=== PATIENT | male | born 1955 | race Two or more races ===

== ENCOUNTER → 2020-06-22 08:51 | Outpatient (BNVA) | payer MEDICARE, OTHER, SELFPAY | PROVIDERS: PCP Internal Medicine; Referring Provider Internal Medicine; Visit Provider Surgery Vascular Surgery | DX: I65.22 Occlusion and stenosis of left carotid artery (principal) | CPT/HCPCS: 99203 ==

== ENCOUNTER 2020-11-07 07:29 | Outpatient (REF) | payer MEDICARE, OTHER, SELFPAY | END 2020-11-07 07:30 | disposition home or self-care (01) | LOC: HO.HOSX 07:29 | PROVIDERS: Visit Provider Orthopaedic Surgery | DX: M17.0 Bilateral primary osteoarthritis of knee (principal); J45.909 Unspecified asthma, uncomplicated; E11.9 Type 2 diabetes mellitus without complications; I10 Essential (primary) hypertension; F17.210 Nicotine dependence, cigarettes, uncomplicated | CPT/HCPCS: 99202 ==

== ENCOUNTER 2020-12-21 10:09 | Outpatient (REF) | payer MEDICARE, OTHER, SELFPAY ==
--- NOTE | ~2020-12-21 | US_ITS ---
EXAMINATION: US EXTRACRANIAL CAROTID DUPLEX, BILATERAL CLINICAL INFORMATION: Occlusion and stenosis of carotid artery COMPARISON: Ultrasound 05/23/2020 TECHNIQUE: Real-time ultrasound and Doppler techniques (integrating B-mode 2-D vascular images, Doppler spectral analysis and color-flow Doppler imaging) were utilized to interrogate the extracranial carotid arteries, the vertebral arteries and proximal subclavian arteries bilaterally. The degree of stenosis is determined by criteria similar to NASCET. FINDINGS: Right Side: 1. There is minimal atherosclerotic plaque seen in the bifurcation/proximal ICA region. 2. The common carotid artery PSV proximally is 79.5 cm/s and distally 102 cm/s. 3. The proximal internal carotid artery velocities are 97.9 cm/s systolic and 26 cm/s diastolic. 4. The proximal external carotid artery PSV is 134 cm/s. 5. The vertebral artery shows antegrade flow. 6. The subclavian artery waveforms are normal. Left Side: 1. There is moderate atherosclerotic plaque seen in the bifurcation/proximal ICA region. 2. The common carotid artery PSV proximally is 92.5 cm/s and distally 86.9 cm/s. 3. The proximal internal carotid artery velocities are 144 cm/s systolic and 45.5 cm/s diastolic. 4. The proximal external carotid artery PSV is 159 cm/s. 5. The vertebral artery shows antegrade flow. 6. The subclavian artery waveforms are normal. US/US carotid duplex BI IMPRESSION: 1. RIGHT: Minimal, non-hemodynamically significant stenosis of the proximal right internal carotid artery corresponding to a 0-49% stenosis by velocity criteria. 2. LEFT: Moderate, hemodynamically significant stenosis of the proximal left internal carotid artery corresponding to a 50-79% stenosis by velocity criteria. 3. There is no change in the category severity of disease when compared to the previous study dated 05/23/2020.
== END 2020-12-21 10:10 | disposition home or self-care (01) ==
LOC: HO.US 10:09
PROVIDERS: Visit Provider Surgery Vascular Surgery
DX: I65.23 Occlusion and stenosis of bilateral carotid arteries (principal)
CPT/HCPCS: 93880

== ENCOUNTER → 2021-01-11 09:04 | Outpatient (BNVA) | payer MEDICARE, MEDICAID, SELFPAY | PROVIDERS: PCP Internal Medicine; Visit Provider Surgery Vascular Surgery | DX: I65.22 Occlusion and stenosis of left carotid artery (principal) | CPT/HCPCS: Q3014 ==

== ENCOUNTER 2021-04-30 08:54 | Outpatient (REF) | payer MEDICARE, MEDICAID, SELFPAY ==
[2021-04-30 10:16] LABS: Hematocrit 42.6 % (42-52); Hemoglobin 13.9 g/dl (14.0-18.0); Mean Corpuscular HGB Conc 32.6 g/dl (31.0-36.0); Mean Corpuscular Hemoglobin 30.1 pg (27.0-33.0); Mean Corpuscular Volume 92.2 fL (80-98); Mean Platelet Volume 11.2 fL (9.4-12.4); Platelet Count 176 X10*3/uL (160-400); Red Blood Count 4.62 X10*6/uL (4.60-5.80); Red Cell Distribution Width 13.2 % (11.0-16.0); White Blood Count 5.6 X10*3/uL (4.8-10.8)
[2021-04-30 10:57] LABS: Alanine Aminotransferase 18 U/L (0-40); Albumin Level 4.2 g/dL (3.5-5.0); Alkaline Phosphatase 94 U/L (39-117); Anion Gap 17 (12-20); Aspartate Amino Transferase 22 U/L (5-37); Bilirubin Total 0.6 mg/dL (0.0-1.0); Blood Urea Nitrogen 46 mg/dL (9-16); Calcium 8.6 mg/dL (8.4-10.2); Carbon Dioxide 22 mmol/L (22-29); Chloride 105 mmol/L (96-108); Cholesterol 117 mg/dL; Estimated Glomerular Filt Rate 17; Glucose Random 119 mg/dL (60-115); HDL Cholesterol 36 mg/dL; LDL Cholesterol Calculated 62 mg/dl; Potassium 4.2 mmol/L (3.3-5.1); Sodium 140 mmol/L (135-145); Total Protein 6.7 g/dL (6.5-8.0); Triglycerides 95 mg/dL
== END 2021-04-30 08:55 | disposition home or self-care (01) ==
LOC: HO.LAB 08:54
PROVIDERS: PCP Internal Medicine; Visit Provider Internal Medicine
DX: E11.9 Type 2 diabetes mellitus without complications (principal); I10 Essential (primary) hypertension
CPT/HCPCS: 36415; 80053; 80061; 84443; 85027

== ENCOUNTER → 2021-05-17 12:17 | Outpatient (BNVA) | payer MEDICARE, OTHER, SELFPAY | PROVIDERS: PCP Internal Medicine; Referring Provider Internal Medicine; Visit Provider Internal Medicine | DX: E11.22 Type 2 diabetes mellitus with diabetic chronic kidney disease (principal); I12.9 Hypertensive chronic kidney disease with stage 1 through stage 4 chronic kidney disease, or unspecified chronic kidney disease; N18.4 Chronic kidney disease, stage 4 (severe); I65.22 Occlusion and stenosis of left carotid artery; I44.0 Atrioventricular block, first degree | CPT/HCPCS: 93005; 99212 ==

== ENCOUNTER 2021-10-25 08:29 | Outpatient (REF) | payer MEDICARE, MEDICAID, SELFPAY ==
[2021-10-25 09:54] LABS: Anion Gap 12 (12-20); Blood Urea Nitrogen 33 mg/dL (9-16); Carbon Dioxide 28 mmol/L (22-29); Chloride 104 mmol/L (96-108); Estimated Glomerular Filt Rate 21; Potassium 4.3 mmol/L (3.3-5.1); Sodium 140 mmol/L (135-145)
[2021-10-26 17:32] LABS: Calcium (PTHI) 7.7 mg/dL (8.6-10.3); PTHI 135 pg/mL (14-64)
== END 2021-10-25 08:30 | disposition home or self-care (01) ==
LOC: HO.LAB 08:29
PROVIDERS: PCP Internal Medicine; Visit Provider Internal Medicine Hypertension Specialist
DX: N18.4 Chronic kidney disease, stage 4 (severe) (principal)
CPT/HCPCS: 36415; 80051; 82310; 82565; 83970; 84520

== ENCOUNTER 2021-12-24 09:47 | Outpatient (REF) | payer MEDICARE, OTHER, SELFPAY ==
--- NOTE | ~2021-12-24 | US_ITS ---
EXAMINATION: US EXTRACRANIAL CAROTID DUPLEX, BILATERAL CLINICAL INFORMATION: Occlusion of the left carotid artery COMPARISON: None TECHNIQUE: Real-time ultrasound and Doppler techniques (integrating B-mode 2-D vascular images, Doppler spectral analysis and color-flow Doppler imaging) were utilized to interrogate the extracranial carotid arteries, the vertebral arteries and proximal subclavian arteries bilaterally. The degree of stenosis is determined by criteria similar to NASCET. FINDINGS: Right Side: 1. There is mild atherosclerotic plaque seen in the bifurcation/proximal ICA region. 2. The common carotid artery PSV proximally is 83 cm/s and distally 93 cm/s. 3. The proximal internal carotid artery velocities are 113 cm/s systolic and 29 cm/s diastolic. 4. The proximal external carotid artery PSV is 141 cm/s. 5. The vertebral artery shows antegrade flow. 6. The subclavian artery waveforms are normal. Left Side: 1. There is moderate atherosclerotic plaque seen in the bifurcation/proximal ICA region. 2. The common carotid artery PSV proximally is 103 cm/s and distally 88 cm/s. 3. The proximal internal carotid artery velocities are 131 cm/s systolic and 46 cm/s diastolic. 4. The proximal external carotid artery PSV is 133 cm/s. 5. The vertebral artery shows antegrade flow. 6. The subclavian artery waveforms are normal. US/US carotid duplex BI IMPRESSION: 1. RIGHT: Minimal, non-hemodynamically significant stenosis of the proximal right internal carotid artery corresponding to a 0-49% stenosis by velocity criteria. 2. LEFT: Moderate, hemodynamically significant stenosis of the proximal left internal carotid artery corresponding to a 50-79% stenosis by velocity criteria.
== END 2021-12-24 09:48 | disposition home or self-care (01) ==
LOC: HO.US 09:47
PROVIDERS: PCP Internal Medicine; Visit Provider Surgery Vascular Surgery
DX: I65.22 Occlusion and stenosis of left carotid artery (principal)
CPT/HCPCS: 93880

== ENCOUNTER → 2022-02-14 08:49 | Outpatient (BNVA) | payer MEDICARE, OTHER, SELFPAY | PROVIDERS: PCP Internal Medicine; Visit Provider Surgery Vascular Surgery | DX: I65.22 Occlusion and stenosis of left carotid artery (principal) | CPT/HCPCS: 99212 ==

== ENCOUNTER → 2022-05-01 09:17 | Outpatient (REF) | payer MEDICARE, OTHER, SELFPAY ==
--- NOTE | 2022-05-01 09:19 | CA_ITS ---
Transthoracic Echocardiogram Patient (Last, First, Middle): Lewis Garrison, Gender: Male Date of : 1955 Age: 66 Procedure Date: 05/01/2022 Procedure Type: Transthoracic Echocardiogram Location: OP Height: 170.18 cm Weight: 108.86 kg BSA: 2.18 m2 Heart Rate: bpm BP: 136 / 86 mmHg Custodian Supervisor: ISAC Referring MD: Jose Kim MD Silk Soaker: Bartolo Anand MD Symptoms: I10 - Essential (primary) hypertension Study Quality: Adequate ECG Rhythm: Sinus Conclusions: - 1. Low normal LV systolic function with severe LVH with impaired relaxation filling pattern 2. Moderately dilated left atrium 3. Cardiac valvular Doppler within normal limits 4. Normal RV systolic pressure 5. No gross pericardial effusion Findings Left Ventricle Normal left ventricular cavity size. There is severely increased left ventricular wall thickness. The left ventricular systolic function is low normal. The visually estimated ejection fraction is between 50-55%. Spectral Doppler is indicative of a pseudonormal filling pattern. E/E prime ratio is between 8 and 15 consistent with indeterminate filling pressures. Peak GLS is - 14.6%, which is reduced. Right Ventricle Normal right ventricular cavity size and systolic function. Atria The left atrium is moderately dilated. There is no evidence of interatrial shunt. The right atrium is normal in size. Aortic Valve Normal aortic valve structure and function. There is no aortic valve stenosis. There is no aortic valve regurgitation. Mitral Valve There is mild anterior and posterior mitral leaflet thickening. There is trace mitral valve regurgitation. There is no mitral valve stenosis. Pulmonic Valve The pulmonic valve was not well visualized. Tricuspid Valve Likely normal tricuspid valve structure and function. There is mild tricuspid valve regurgitation. The right ventricular systolic pressure is normal. The right ventricular systolic pressure is 32 mmHg. Normal right atrial pressure. There is no evidence of pulmonary hypertension. Great Vessels All visible segments of the aorta are normal in size. The pulmonary artery was not well visualized. Venous The inferior vena cava is normal in size and collapses greater than 50% with inspiration. Pericardium/Pleural There is no evidence of pericardial effusion. Measurements 2D Linear Measurements IVSd: 1.77 0.6-0.9/0.6-1.0 cm LVIDd: 5.47 3.9-5.3/4.2-5.9 cm LVIDd Index: 2.51 2.4-3.2/2.2-3.1 cm/m2 LVIDs: 3.32 2.0-3.6 cm LVPWd: 1.61 0.7-1.1 cm Ao Root: 3.30 2.1-3.5 cm LA Diam: 5.40 2.7-3.8/3.0-4.0 cm LAIDs Index: 2.48 1.5-2.3 cm/m2 LV Mass: 545.79 67-162/88-224 g LV Mass Index: 250.36 43-95/49-115 g/m2 LVOT Diam: 2.30 3.0+(-)1.3 cm 2D Systolic Function EF 4C: 43.60 >55% EF 2C: 49.00 >55% Mitral Valve MV Pk E: 0.87 MV PK A: 0.47 MV Decel Time: 124.00 E/A: 1.90 E'Lateral: 7.94 E'Medial: 6.31 E/E' Med: 13.70 E/E' Lat: 10.90 PHT: 36.00 MVA PHT: 6.11 Decel [place]: 6.97 Aortic Valve AoV Pk Jose: 1.33 AoV Mn Jose: 0.84 AoV VTI: 0.28 AoV Pk Grad: 7.00 Aov Mn Grad: 3.00 EUGENE Cont.VTI: 2.88 LVOT LVOT Pk Jose: 0.88 LVOT Mn Jose: 0.54 LVOT VTI: 0.20 LVOT Pk Grad: 3.00 LVOT Mn Grad: 1.00 LVOT Diam: 2.30 LVOT Area: 4.15 Diastolic Function MV Pk E: 0.87 MV Pk A: 0.47 E/A: 1.90 E'Medial: 6.31 E/E' Med: 13.70 E' Laterial: 7.94 E/E' Lat: 10.90 Right Ventricle TAPSE (mm): 28.00 TVS' Jose: 10.00 Tricuspid Valve TR Pk Jose: 2.70 TR Pk Grad: 29.00 RA Press: 3.00 RVSP: 32.00 Great Vessels Aorta Ao Root-2D: 3.30 2.0-3.7 cm Ao Asc: 3.70 2.1-3.4 cm Pulmonary Valve PV Pk Jose: 0.94 Peak PV Grad: 4.00 Updated in Other Vendor System with Status of Final Bartolo Anand MD electronically signed on 05/01/2022 3:55:14 PM with status of Final
== END ==
LOC: HO.CARD 09:17
PROVIDERS: PCP Internal Medicine; Visit Provider Internal Medicine
DX: I12.9 Hypertensive chronic kidney disease with stage 1 through stage 4 chronic kidney disease, or unspecified chronic kidney disease (principal); N18.4 Chronic kidney disease, stage 4 (severe)
CPT/HCPCS: 93306; 93356

== ENCOUNTER → 2022-05-21 08:46 | Outpatient (BNVA) | payer MEDICARE, OTHER, SELFPAY | PROVIDERS: PCP Internal Medicine; Referring Provider Internal Medicine; Visit Provider Internal Medicine | DX: I44.0 Atrioventricular block, first degree (principal); I45.10 Unspecified right bundle-branch block; E11.22 Type 2 diabetes mellitus with diabetic chronic kidney disease; I12.9 Hypertensive chronic kidney disease with stage 1 through stage 4 chronic kidney disease, or unspecified chronic kidney disease; N18.4 Chronic kidney disease, stage 4 (severe) | CPT/HCPCS: 93005; 99212 ==

== ENCOUNTER 2022-07-25 15:18 | Outpatient (REF) | payer MEDICARE, MEDICAID, SELFPAY ==
--- NOTE | ~2022-07-25 | XR_ITS ---
EXAMINATION: XR CHEST CLINICAL INFORMATION: R06.09 - Other forms of dyspnea COMPARISON: Chest radiographs 04/20/2017 TECHNIQUE: 2 views of the chest were obtained. FINDINGS: The cardiopericardial silhouette is mildly enlarged representing change from prior exam 2017. There is even distribution pulmonary vascularity. No Claudia B lines or airspace consolidation or effusion. The costophrenic sulci are clear. The hilar and mediastinal contours are unremarkable. No acute bony abnormality. XR/XR chest 2V IMPRESSION: 1. Mild enlargement cardiopericardial silhouette with even distribution pulmonary vascularity. 2. No Claudia B lines, airspace consolidation, or effusion.
== END 2022-07-25 15:19 | disposition home or self-care (01) ==
LOC: HO.XRAY 15:18
PROVIDERS: PCP Internal Medicine; Visit Provider Internal Medicine
DX: R06.09 Other forms of dyspnea (principal); J44.9 Chronic obstructive pulmonary disease, unspecified; F17.200 Nicotine dependence, unspecified, uncomplicated
CPT/HCPCS: 71046; 99202

== ENCOUNTER 2022-08-23 10:28 | Inpatient (IN) | payer MEDICARE, OTHER, SELFPAY ==
[2022-08-23] VITALS (11 sets, daily range): BP systolic 144–216; BP diastolic 86–131; PULSE 82–186; RESP 18–44; TEMP 37–37.8; O2SAT 90–96; BMI 37.3
--- NOTE | ~2022-08-23 | XR_ITS ---
EXAMINATION: XR CHEST CLINICAL INFORMATION: Chest pain, shortness of breath. COMPARISON: 07/25/2022 chest radiograph. TECHNIQUE: Frontal view of the chest was obtained. FINDINGS: Increased opacities with nodularity are seen laterally, right greater than left, most pronounced in the right mid and lower lung keith. The heart and mediastinal structures are unremarkable. XR/XR chest 1V IMPRESSION: Increased bilateral nodular opacities, right greater than left are nonspecific. This could represent an infectious/inflammatory process, but a cardiogenic etiology cannot be excluded. Correlate clinically. This represents interval worsening from the previous study.
--- NOTE | 2022-08-23 10:37 | ECG_ITS ---
Test Reason : SOB Blood Pressure : / mmHG Vent. 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
[2022-08-23 10:38] LABS: Glucose, Whole Blood 211 mg/dL (60-115)
[2022-08-23] MEDS: Midazolam HCl/PF 2 MG/2 ML VIAL IVPUSH (10:41)
[2022-08-23] MEDS: Morphine Sulfate 2 MG/ML CARTRIDGE IVPUSH (10:44)
--- NOTE | 2022-08-23 10:50 | ED.SOB ---
HPI - SOB/Dyspnea General Chief Complaint: Dyspnea Stated Complaint: RESPIRATORY DISTRESS Time Seen by Provider: 08/23/22 10:33 Source: patient and EMS Mode of arrival: EMS Limitations: other (Respiratory distress) History of Present Illness HPI Narrative: 66-year-old male who presents emergency department for evaluation of shortness of breath x3 days. Information mainly came the paramedics. The patient has a history of COPD and chronic kidney disease stage 4. Patient told the paramedics he is feeling short of breath for 3 days, he has been using his inhalers with no improvement. Patient had a cough and a fever at home. When paramedics arrived on the scene the patient appeared to be in respiratory distress with an elevated respiratory rate and hypertensive with a blood pressure of 186/122. The patient was placed on CPAP and transported to the emergency department. On arrival the patient was placed on BiPAP. Patient appear to be extremely anxious he was treated with Versed 2 mg IV and morphine 2 mg IV. Related Data Home Medications Medication Instructions Recorded Confirmed cholecalciferol (vitamin D3) 25 25 mcg PO Q48H 06/22/20 08/23/22 mcg (1,000 unit) capsule cinacalcet 30 mg tablet 30 mg PO DAILY 06/22/20 08/23/22 clonidine HCl 0.3 mg tablet 0.3 mg PO TID 06/22/20 08/23/22 glimepiride 1 mg tablet 1 mg PO DAILY 06/22/20 08/23/22 simvastatin 20 mg tablet 20 mg PO QPM 06/22/20 08/23/22 sitagliptin phosphate 50 mg tablet 50 mg PO DAILY 06/22/20 08/23/22 (Januvia) zolpidem 10 mg tablet 10 mg PO BEDTIME PRN Sleep 06/22/20 08/23/22 blood-glucose meter (FreeStyle #1 ea 11/07/20 07/25/22 Lite Meter kit) docusate sodium 100 mg capsule 100 mg PO DAILY 11/07/20 08/23/22 (Colace) lancets 28 gauge (FreeStyle #100 ea 11/07/20 07/25/22 Lancets) hydralazine 100 mg tablet 100 mg PO TID 02/14/22 08/23/22 losartan 100 mg tablet 100 mg PO DAILY 02/14/22 08/23/22 oxycodone-acetaminophen 5 mg-325 1 tab PO Q8H PRN Pain 02/14/22 08/23/22 mg tablet labetalol 200 mg tablet 400 mg PO BID 05/21/22 08/23/22 budesonide-formoterol HFA 160 2 puff inhalation BID 07/25/22 08/23/22 mcg-4.5 mcg/actuation aerosol inhaler (Symbicort) lidocaine 5 % topical patch 1 patch topical DAILY 08/23/22 08/23/22 Allergies Allergy/AdvReac Type Severity Reaction Status Date / Time aspirin AdvReac Unknown nose bleeds Verified 07/25/22 16:37 metformin AdvReac Unknown hypoglycemi Verified 07/25/22 16:37 a Review of Systems Review of Systems: Yes Unobtainable due to mental condition [facility] Past Medical History Medical History CKD (chronic kidney disease) COPD (chronic obstructive pulmonary disease) Diabetes mellitus Dyslipidemia Dyspnea on minimal exertion Hypertension Left ventricular hypertrophy Obesity LEONEL (obstructive sleep apnea) Smoker Smoking Surgical History No pertinent past surgical history Family History Family History Father No problems noted. Mother Diabetes Family/Other No problems noted. Social History Social History Patient Tobacco Use Status: Current everyday Tobacco user Cigarettes Per Day: 5 Advance Directives: No Physical Exam Vital Signs: Vital Signs: Last Vital Signs Temp 99.3 F 08/23/22 14:31 Pulse 88 08/23/22 14:31 Resp 20 08/23/22 14:31 BP 164/99 H 08/23/22 14:31 Pulse Ox 95 08/23/22 14:31 O2 Del Method 08/23/22 14:31 O2 Flow Rate 2.5 08/23/22 14:31 Oxygen Flow Rate 40 08/23/22 10:48 BMI result Body Mass Index 37.3 Const: Other: Patient is awake, he is extremely anxious, he is tachypneic, he does answer questions. HEENT: Head: Yes normal to inspection, Yes normocephalic and Yes atraumatic Ears: external ears normal General nose exam: Normal external nose present Face and sinus: Yes normal facial exam Mouth: Normal oral and palatal mucosa present Throat: Yes posterior oropharynx normal Eyes: General: appearance normal, both eyes and all related structures Pupils: Equal, round and reactive pupils present Neck: Neck: Yes normal visual inspection, Yes no lymphadenopathy, Yes trachea midline and Yes supple Chest: Chest palpation & inspection: normal inspection of the chest and normal palpation of entire chest wall Resp: Other: Patient is tachypneic, diminished breath sounds bilaterally, diffuse rhonchi with wheezing, no rales Cardio: Rate: regular rate Rhythm: regular rhythm Heart sounds: S1 normal heart sound present, S2 normal heart sound present and no murmurs GI: Inspection: Yes normal to inspection Palpation (GI): Soft to palpation, nontender and no guarding Auscultation: normal bowel sounds : General: Yes no CVA tenderness Back/Spine/Pelvis: Back: no CVA tenderness Skin: General skin exam: no rashes or lesions noted Neuro: Cranial nerves: Yes CN's II-XII intact bilaterally and Yes Equal, round and reactive pupils present Motor exam (neuro): 5/5 motor strength present throughout Extrem: Other: Trace to 1+ pitting edema symmetric trace to 1+ pitting edema, symmetric Psych: Other: Anxious, oriented to person and place, answers questions appropriately Course Course Course Narrative: 66-year-old male who presents emergency department for evaluation of 3 days of shortness of breath and cough. Patient had increased shortness of breath today and called an ambulance, was found to be in respiratory distress by paramedics. Patient was transported to the emergency department on CPAP. On arrival he was placed on BiPAP. I did order laboratory evaluation to include CBC, CMP, PT/INR, PTT, lactate, troponin, COVID-19, influenza, blood cultures x2. EKG and portable chest x-ray were also ordered. Patient was ordered to get morphine 2 mg IV for his dyspnea and Versed 2 mg IV for his anxiety. 1059: Chest x-ray one view revealed right-sided lower lobe infiltrate, new compared to 2017. Given this finding, I did order antibiotics-ceftriaxone 1 g IV and azithromycin 5 mg IV. Patient was also ordered to get a DuoNeb x1 and ABG. 1231: Laboratory evaluation: WBC normal 7100, no band. Low platelet count a [id number] elevated BUN and creatinine 32 and 3.6-consistent with baseline. High sensitive troponin I elevated. BNP elevated 2674. COVID-19 negative influenza a positive Radiology evaluation: Chest x-ray reviewed by me. Radiology reading below: IMPRESSION: Increased bilateral nodular opacities, right greater than left are nonspecific. This could represent an infectious/inflammatory process, but a cardiogenic etiology cannot be excluded. Correlate clinically. This represents interval worsening from the previous study. Dictated By:Mookie Ceron MDSigned By:<Electronically signed by Mookie Ceron MD in OV>08/23/22 1133 Patient was initially on BiPAP but after receiving morphine and Versed he seemed to calm down significantly. ABG on BiPAP 15/840% revealed a pH of 7.34, pCO2 of 39 and a PO2 of 95.6. Patient was taken off BiPAP placed on 2 L of oxygen via nasal cannula and has no respiratory distress at this time Patient does have end-stage renal disease which makes the BNP and troponin hard to interpret. Patient's chest x-ray I think is more consistent with pneumonia. The patient's influenza is positive and I will treat him with Tamiflu. I will discuss admission and further treatment with the covering hospitalist. 1551: Repeat troponin increased from 65.4 to 113.2 which is a greater than 50% change. This is most likely secondary to type 2 injury. The patient is allergic to aspirin. I did send this information to the covering hospitalist via tiger text. Medications Administered Discontinued Medications Generic Name Dose Route Start Last Admin Trade Name Freq PRN Reason Stop Dose Admin Albuterol/Ipratropium 3 ml 08/23/22 10:48 08/23/22 10:55 Albuterol/Iprat 2.5/0.5mg 3 Ml Ampul.Neb INHALE 08/23/22 10:49 3 ml ONCE ONE Administration Ceftriaxone Sodium 1 gm/ 50 mls @ 100 mls/hr 08/23/22 10:48 08/23/22 14:03 Sodium Chloride IV 08/23/22 11:17 Infused ONCE ONE Infusion Azithromycin 500 mg/ Sodium 250 mls @ 125 mls/hr 08/23/22 10:48 08/23/22 14:03 Chloride IV 08/23/22 12:47 Infused ONCE ONE Infusion Midazolam HCl 2 mg 08/23/22 10:35 08/23/22 10:41 Midazolam Hcl/Pf 2 Mg/2 Ml Vial IVPUSH 08/23/22 10:36 2 mg ONCE ONE Administration Morphine Sulfate 2 mg 08/23/22 10:35 08/23/22 10:44 Morphine Sulfate 2 Mg/Ml Cartridge IVPUSH 08/23/22 10:36 2 mg ONCE ONE Administration Protocol Oseltamivir Phosphate 75 mg 08/23/22 12:36 08/23/22 14:02 Oseltamivir Phosphate 75 Mg Capsule PO 08/23/22 12:37 75 mg ONCE ONE Administration Critical Care Time Critical Care Time Critical Care Time: Yes Total Critical Care Time: 45 Attestation: Critical Care: The patient was critically ill with a high probability of imminent or life threatening deterioration. I spent greater than 30 minutes of discontinuous time evaluating the patient,delivering critical care at the bedside, discussing and evaluating pertinent data with consultants. Critical care time does not include time spent performing separately billable procedures or teaching. Total time spent performing critical care was 45 minutes. Discharge Plan Discharge Clinical Impression: Pneumonia, COPD (chronic obstructive pulmonary disease), Influenza A, Elevated troponin
[2022-08-23] MEDS: Albuterol/Iprat 2.5/0.5MG 3 ML AMPUL.NEB INHALE ×3 (10:55→19:52)
[2022-08-23 11:01] LABS: Basophils Percent Auto 0.3 % (0-2); Eosinophils Percent Auto 0.1 % (0-4); Hemoglobin 12.6 g/dl (14.0-18.0); Imm Gran Abs Auto 0.03 X10*3/uL (0.00-0.03); Imm Gran Pct Auto 0.4 % (0.0-0.4); Lymphocytes Absolute Auto 0.5 X10*3/uL (1.2-4.9); Lymphocytes Percent Auto 6.9 % (20-40); MANUAL DIFF FLAG NO; Mean Corpuscular HGB Conc 32.3 g/dl (31.0-36.0); Mean Corpuscular Hemoglobin 29.1 pg (27.0-33.0); Mean Corpuscular Volume 90.1 fL (80.0-98.0); Mean Platelet Volume 11.1 fL (9.4-12.4); Monocytes Absolute Auto 0.4 X10*3/uL (0.1-1.2); Monocytes Percent Auto 5.7 % (2-11); Neutrophils Absolute Auto 6.1 x10*3/uL (2.0-8.3); Neutrophils Percent Auto 86.6 % (45-73); Platelet Count 141 X10*3/uL (160-400); Red Blood Count 4.33 X10*6/uL (4.60-5.80); Red Cell Distribution Width 13.2 % (11.0-16.0); White Blood Count 7.1 X10*3/uL (4.8-10.8)
[2022-08-23] MEDS: Azithromycin 500 MG in 0.9 % Sodium Chloride 250 ML 125 MG IV (11:02)
--- NOTE | 2022-08-23 11:09 | PC.NURSE ---
Addendum entered by Lucia Mccall RN 08/23/22 11:14: at the bedside Original Note: pt. present to the ED with increased SOB. EMS brought him in on a cpap. O2sat on ra was 89 on arrival. pt using accessory muscles to breath. very anxious, gave him midazolam and morphene to calm his breathing. skin pale. provider stated he has pneumonia and pt is now being treated with antibiotics.
[2022-08-23 11:14] LABS: INTERNATIONAL NORM RATIO 1.4 (0.9-1.1); Prothrombin Time 15.8 SEC (10.0-13.1)
[2022-08-23 11:16] LABS: Partial Thromboplastin Time 30.1 SEC (26.0-36.4)
[2022-08-23 11:22] LABS: Lactic Acid 1.5 mmol/L (0.5-2.0)
[2022-08-23 11:28] LABS: Alanine Aminotransferase 13 U/L (0-40); Albumin Level 4.2 g/dL (3.5-5.0); Alkaline Phosphatase 88 U/L (39-117); Anion Gap 14 (12-20); Aspartate Amino Transferase 23 U/L (5-37); Bilirubin Total 0.8 mg/dL (0.0-1.0); Blood Urea Nitrogen 32 mg/dL (9-16); Calcium 8.1 mg/dL (8.4-10.2); Carbon Dioxide 23 mmol/L (22-29); Chloride 104 mmol/L (96-108); Creatinine Clr Calc Pharmacy 24.2; Estimated Glomerular Filt Rate 17; Glucose Random 197 mg/dL (60-115); Lipase 27 U/L (8-78); Potassium 4.4 mmol/L (3.3-5.1); Sodium 137 mmol/L (135-145); Total Protein 7.1 g/dL (6.5-8.0)
[2022-08-23 11:29] LABS: B Type Natriuretic Peptide 2674 pg/mL (<100); Troponin-I High Sensitivity 65.4 ng/L (<3.5-35.0)
[2022-08-23 11:34] LABS: IDNOW Serial# BCCEAD1C; Influenza A Positive (Negative); Influenza B2 Negative (Negative)
[2022-08-23 11:35] LABS: COVID-19 Test Negative (Negative); IDNOW Serial# 16C4AD1C
[2022-08-23 11:35] LABS: ABG Base Excess -3.3 mmol/L; ABG HCO3 21 mmol/L (22-26); ABG pCO2 39 mmHg (32-45); ABG pH 7.34 (7.35-7.45); ABG pO2 96 mmHg (83-108)
[2022-08-23 11:45] LABS: Erythrocyte Sedimentation Rate 8 MM/HR (0-15)
[2022-08-23] MEDS: cefTRIAXone sodium 1 GM in 0.9 % Sodium Chloride 50 ML IV (13:15)
--- NOTE | 2022-08-23 13:46 | PHA.MEDREC ---
Pharmacy Consult ? Medication Reconciliation Pharmacy has completed the medication reconciliation. Patient is a poor historian, told me to use [employer] as my source. Used recent [employer] claims to complete list.
[2022-08-23] MEDS: Oseltamivir Phosphate 75 MG CAPSULE PO (14:02)
--- NOTE | 2022-08-23 14:03 | PC.NURSE ---
Hospitalist at bedside at this time
--- NOTE | 2022-08-23 14:21 | PM.IMHP ---
History of Present Illness Date of Service: 08/23/22 Attending physician on admission: Sue Porter Chief Complaint: Shortness of breath 66-year-old gentleman with past medical history significant for COPD, not on home oxygen, history of obstructive sleep apnea not on CPAP, history of diabetes mellitus type 2, dyslipidemia, hypertension, chronic kidney disease Presented to [facility] for 2-3 days history of shortness of breath associated with cough productive of clear phlegm associated with fever up to 100.7, and chills he denies associated headache lightheadedness or dizziness, denies leg swelling, no orthopnea, no PND, denies sick contacts no other family member with similar symptoms, due to worsening shortness of breath overnight patient called paramedics who noted patient to be in respiratory distress with elevated respiratory rate and blood pressure of 186/122 patient was placed on CPAP and transported to [place] [facility] on arrival to ED patient was placed on BiPAP patient was noted to be extremely anxious treated with 2 mg of Versed and 2 mg of morphine IV, chest x-ray showed bilateral nodular opacities right greater than left, nonspecific either infectious or inflammatory but a cardiogenic etiology was not completely excluded, COVID-19 test came back negative, however influenza a is positive, patient also noted to have elevated BNP,, ABG showed pH 7.34, pCO2 of 39 and PO2 of 95 while on BiPAP and 2 L of oxygen, in the emergency room patient treated with IV ceftriaxone, azithromycin and Tamiflu, currently patient is feeling better off BiPAP on 2 L of oxygen and now being admitted to [facility] due to influenza A, with likely super added bacterial infection Review of Systems Review of Systems: General no headache, no dizziness CVS no chest pain, no palpitation. Respiratory positive cough and shortness of breath Gastrointestinal no nausea no vomiting, no abdominal pain no urgency, no frequency Skin no rash Yes all other systems are reviewed and are negative [facility] Medical History CKD (chronic kidney disease) COPD (chronic obstructive pulmonary disease) Diabetes mellitus Dyslipidemia Dyspnea on minimal exertion Hypertension Left ventricular hypertrophy Obesity LEONEL (obstructive sleep apnea) Smoker Smoking Family History Father No problems noted. Mother Diabetes Family/Other No problems noted. Surgical History No pertinent past surgical history Social History Patient Tobacco Use Status: Current everyday Tobacco user Cigarettes Per Day: 5 Advance Directives: No Meds Allergies Allergy/AdvReac Type Severity Reaction Status Date / Time aspirin AdvReac Unknown nose bleeds Verified 07/25/22 16:37 metformin AdvReac Unknown hypoglycemi Verified 07/25/22 16:37 a Active Medications: Current Medications Acetaminophen (Acetaminophen 325 Mg Tablet) 650 mg PO Q6H PRN PRN Reason: Pain, Mild (Pain Scale 1-3) Hydrocodone Bitart/Acetaminophen (Hydrocodone Bit/Acetam 5/325 Tablet) 1 tab PO Q6H PRN PRN Reason: Pain, Severe (Pain Scale 7-10) Albuterol/Ipratropium (Albuterol/Iprat 2.5/0.5mg 3 Ml Ampul.Neb) 3 ml INHALE Q4H PRN PRN Reason: sob Atorvastatin Calcium (Atorvastatin Calcium 10 Mg Tablet) 10 mg PO BEDTIME [facility] Cinacalcet (Cinacalcet Hcl 30 Mg Tablet) 30 mg PO DAILY [facility] Clonidine HCl (Clonidine Hcl 0.1 Mg Tablet) 0.3 mg PO TID ZOEY; Protocol Dextrose (Dextrose 50 % 25 Gm/50 Ml Syringe) 25 gm IVPUSH Q15M PRN; Protocol PRN Reason: per Hypoglycemia Standing Ord. Docusate Sodium (Docusate Sodium 100 Mg Capsule) 100 mg PO DAILY [facility] Fluticasone/Vilanterol (Fluticasone/Vilanterol 100/25 Blst.W.Dev) 1 puff INHALE RDAILY [facility] Glucose (Glucose Gel 15 Gm Gel..Gram.) 15 gm PO Q15M PRN; Protocol PRN Reason: per Hypoglycemia Standing Ord. Guaifenesin/Dextromethorphan (Guaifenesin Dm 100/10/5 Ml 5 Ml Syrup) 10 ml PO Q6H PRN PRN Reason: cough Hydralazine HCl (Hydralazine Hcl 50 Mg Tablet) 100 mg PO TID ZOEY; Protocol Doxycycline Hyclate 100 mg/ (Sodium Chloride) 250 mls @ 166.67 mls/hr IV Q12H [facility] Insulin Human Lispro (Insulin Lispro 100 Unit/Ml 3 Ml Vial) 0 unit SUBCUT QIDACHS ZOEY; Protocol Labetalol HCl (Labetalol Hcl 200 Mg Tablet) 400 mg PO BID ZOEY; Protocol Losartan Potassium (Losartan Potassium 50 Mg Tablet) 100 mg PO DAILY ZOEY; Protocol Melatonin (Melatonin 3 Mg Tablet) 3 mg PO BEDTIME PRN PRN Reason: Insomnia Ondansetron HCl (Ondansetron Hcl 4 Mg/2 Ml Vial) 4 mg IVPUSH Q8H PRN PRN Reason: Nausea and Vomiting Sitagliptin Phosphate (Sitagliptin Phosphate 50 Mg Tablet) 50 mg PO DAILY [facility] Sodium Chloride (0.9 % Sodium Chloride Flush 3 Ml Syringe) 3 ml IVFLUSH QSHIFT [facility] Vitamin D (Cholecalciferol (Vitamin D3) 25 Mcg Tablet) 25 mcg PO Q48H ZOEY Zolpidem Tartrate (Zolpidem Tartrate 5 Mg Tablet) 10 mg PO BEDTIME PRN PRN Reason: Sleep Home Medications Medication Instructions Recorded Confirmed Last Taken Type cholecalciferol (vitamin D3) 25 25 mcg PO Q48H 06/22/20 08/23/22 Unknown History mcg (1,000 unit) capsule cinacalcet 30 mg tablet 30 mg PO DAILY 06/22/20 08/23/22 Unknown History clonidine HCl 0.3 mg tablet 0.3 mg PO TID 06/22/20 08/23/22 Unknown History glimepiride 1 mg tablet 1 mg PO DAILY 06/22/20 08/23/22 Unknown History simvastatin 20 mg tablet 20 mg PO QPM 06/22/20 08/23/22 Unknown History sitagliptin phosphate 50 mg tablet 50 mg PO DAILY 06/22/20 08/23/22 Unknown History (Januvia) zolpidem 10 mg tablet 10 mg PO BEDTIME PRN Sleep 06/22/20 08/23/22 Unknown History blood-glucose meter (FreeStyle #1 ea 11/07/20 07/25/22 Unknown History Lite Meter kit) docusate sodium 100 mg capsule 100 mg PO DAILY 11/07/20 08/23/22 Unknown History (Colace) lancets 28 gauge (FreeStyle #100 ea 11/07/20 07/25/22 Unknown History Lancets) hydralazine 100 mg tablet 100 mg PO TID 02/14/22 08/23/22 08/23/22 08:00 History losartan 100 mg tablet 100 mg PO DAILY 02/14/22 08/23/2208/23/22 08:00 History oxycodone-acetaminophen 5 mg-325 1 tab PO Q8H PRN Pain 02/14/22 08/23/22 Unknown History mg tablet labetalol 200 mg tablet 400 mg PO BID 05/21/22 08/23/22 08/23/22 08:00 History budesonide-formoterol HFA 160 2 puff inhalation BID 07/25/22 08/23/22 Unknown History mcg-4.5 mcg/actuation aerosol inhaler (Symbicort) lidocaine 5 % topical patch 1 patch topical DAILY 08/23/22 08/23/22 Unknown History Physical Exam Vital Signs and Narrative: Vital Signs: Last Vital Signs Temp 98.6 F 08/23/22 10:48 Pulse 82 08/23/22 13:19 Resp 18 08/23/22 13:19 BP 144/86 H 08/23/22 13:19 Pulse Ox 94 08/23/22 13:19 O2 Del Method 08/23/22 13:19 Oxygen Flow Rate 40 08/23/22 10:48 BMI result Body Mass Index 37.3 Const: Other: General awake alert, in no acute distress. HEENT PERRLA,EOMI Neck supple no JVD. CVS regular rate rhythm, Respiratory lungs coarse breath sounds, diminished at bases, no respiratory distress, no wheeze, no rhonchi. Gastrointestinal abdomen soft, obese, nontender, bowel sounds audible, no guarding , no rigidity. Extremities no edema. Neuro nonfocal patient moving all 4 extremity speech clear. Skin no rash Psych appropriate affect Results Labs CBC and Chem 7: 08/23/22 10:35 08/23/22 10:35 Labs: Laboratory Results - last 24 hr 08/23/22 08/23/22 08/23/22 10:34 10:35 10:35 MCV 90.1 MCH 29.1 MCHC 32.3 RDW 13.2 Plt Count 141 L MPV 11.1 Immature Gran % (Auto) 0.4 Neut % (Auto) 86.6 H Lymph % (Auto) 6.9 L [place] % (Auto) 5.7 Eos % (Auto) 0.1 Baso % (Auto) 0.3 Lymph # (Auto) 0.5 L [place] # (Auto) 0.4 Eos # (Auto) 0.0 Baso # (Auto) 0.0 Abs Immat Gran (auto) 0.03 Absolute Neuts (auto) 6.1 Absolute Nucleated RBC 0.000 Nucleated RBC % (auto) 0.0 ESR 8 PT INR APTT O2 Saturation ABG pH at Pt Temp ABG pCO2 at Pt Temp ABG pO2 at Pt Temp ABG HCO3 ABG Base Excess (Actual) Anion Gap Estim Creat Clear Calc Estimated GFR POC Glucose 211 H Random Glucose Lactic Acid Calcium Total Bilirubin AST ALT Alkaline Phosphatase Troponin I High Sens B-Natriuretic Peptide Total Protein Albumin Lipase COVID-19 (DEBBIE) COVID-19 Clin Com Influenza Type A (RAAD) Influenza Type B (RAAD) Influenza A & B Note 08/23/22 08/23/22 08/23/22 10:35 10:35 10:35 MCV MCH MCHC RDW Plt Count MPV Immature Gran % (Auto) Neut % (Auto) Lymph % (Auto) [place] % (Auto) Eos % (Auto) Baso % (Auto) Lymph # (Auto) [place] # (Auto) Eos # (Auto) Baso # (Auto) Abs Immat Gran (auto) Absolute Neuts (auto) Absolute Nucleated RBC Nucleated RBC % (auto) ESR PT 15.8 H INR 1.4 H APTT 30.1 O2 Saturation ABG pH at Pt Temp ABG pCO2 at Pt Temp ABG pO2 at Pt Temp ABG HCO3 ABG Base Excess (Actual) Anion Gap 14 Estim Creat Clear Calc 24.2 Estimated GFR 17 POC Glucose Random Glucose 197 H Lactic Acid 1.5 Calcium 8.1 L Total Bilirubin 0.8 AST 23 ALT 13 Alkaline Phosphatase 88 Troponin I High Sens B-Natriuretic Peptide Total Protein 7.1 Albumin 4.2 Lipase 27 COVID-19 (DEBBIE) COVID-19 Clin Com Influenza Type A (RAAD) Influenza Type B (RAAD) Influenza A & B Note 08/23/22 08/23/22 08/23/22 10:35 10:35 11:06 MCV MCH MCHC RDW Plt Count MPV Immature Gran % (Auto) Neut % (Auto) Lymph % (Auto) [place] % (Auto) Eos % (Auto) Baso % (Auto) Lymph # (Auto) [place] # (Auto) Eos # (Auto) Baso # (Auto) Abs Immat Gran (auto) Absolute Neuts (auto) Absolute Nucleated RBC Nucleated RBC % (auto) ESR PT INR APTT O2 Saturation ABG pH at Pt Temp ABG pCO2 at Pt Temp ABG pO2 at Pt Temp ABG HCO3 ABG Base Excess (Actual) Anion Gap Estim Creat Clear Calc Estimated GFR POC Glucose Random Glucose Lactic Acid Calcium Total Bilirubin AST ALT Alkaline Phosphatase Troponin I High Sens 65.4 H B-Natriuretic Peptide 2674 H Total Protein Albumin Lipase COVID-19 (DEBBIE) COVID-19 Clin Com Influenza Type A (RAAD) Positive A Influenza Type B (RAAD) Negative Influenza A & B Note See Note 08/23/22 08/23/22 11:06 11:28 MCV MCH MCHC RDW Plt Count MPV Immature Gran % (Auto) Neut % (Auto) Lymph % (Auto) [place] % (Auto) Eos % (Auto) Baso % (Auto) Lymph # (Auto) [place] # (Auto) Eos # (Auto) Baso # (Auto) Abs Immat Gran (auto) Absolute Neuts (auto) Absolute Nucleated RBC Nucleated RBC % (auto) ESR PT INR APTT O2 Saturation 97.0 ABG pH at Pt Temp 7.34 L ABG pCO2 at Pt Temp 39 ABG pO2 at Pt Temp 96 ABG HCO3 21 L ABG Base Excess (Actual) -3.3 Anion Gap Estim Creat Clear Calc Estimated GFR POC Glucose Random Glucose Lactic Acid Calcium Total Bilirubin AST ALT Alkaline Phosphatase Troponin I High Sens B-Natriuretic Peptide Total Protein Albumin Lipase COVID-19 (DEBBIE) Negative COVID-19 Clin Com See Note Influenza Type A (RAAD) Influenza Type B (RAAD) Influenza A & B Note Imaging Radiologist's Impressions: Impressions Chest X-Ray 08/23/22 10:50 IMPRESSION: Increased bilateral nodular opacities, right greater than left are nonspecific. This could represent an infectious/inflammatory process, but a cardiogenic etiology cannot be excluded. Correlate clinically. This represents interval worsening from the previous study. Assessment and Plan (1) Pneumonia: Status: Acute (2) COPD (chronic obstructive pulmonary disease): Status: Acute (3) Influenza A: Status: Acute Plan 66-year-old gentleman with past medical history significant for chronic kidney disease, history of COPD, obstructive sleep apnea not on CPAP, obesity presented to [facility] due to symptoms of shortness of breath and cough of 2-3 days duration associated with fever patient diagnosed to have influenza a infection with high likelihood of super added bacterial infection, no clinical evidence of CHF. Influenza A infection /pneumonia with super added bacterial infection Admitted to telemetry unit Elevated BNP 2674 likely due to chronic kidney disease no evidence of CHF, no history of coronary artery disease, no history of CHF Treat with renally dosed Tamiflu and IV doxycycline Treat with cough medication as needed updraft of and analgesics Continue oxygen and wean as tolerated patient not on home O2 Sepsis due to influenza A and pneumonia with tachypnea, tachycardia normal WBC count Diabetes mellitus type 2 continue Januvia, placed on insulin sliding scale and diabetic diet hold glimepiride non formulary medication COPD no acute exacerbation continue inhalers as needed Tobacco use disorder counseling done will place on NRT Obesity recommend low-calorie diet and weight reduction likely contributing to diabetes and hyperlipidemia Chronic kidney disease stage 4 creatinine close to baseline continue Sensipar Hypertension elevated blood pressure on multiple antihypertensive medications continue clonidine t.i.d., hydralazine, labetalol, Cozaar and follow blood pressure. Obstructive sleep apnea being followed by pulmonology workup in progress not on CPAP we you were dose is is Hyperlipidemia continue statins DVT prophylaxis placed on heparin Code status full code In my clinical judgment patient need 2 night inpatient stay due to influenza a infection and pneumonia requiring IV antibiotics. Time Spent With Patient Time: Total time managing care of this patient today ____ minutes. Quality Stroke Does the patient have a stroke diagnosis?: No VTE Prior VTE?: No VTE Risk Level:: Medical - moderate - high VTE Device Contraindication: Treatment Not Indicated VTE Drug Contraindication: N/A - Med Ordered
[2022-08-23 15:46] LABS: Troponin-I High Sensitivity 113.2 ng/L (<3.5-35.0)
[2022-08-23] MEDS: hydrALAZINE HCl 50 MG TABLET 100 MG PO ×2 (15:56→20:09)
[2022-08-23] MEDS: cloNIDine HCL 0.1 MG TABLET 0.3 MG PO ×2 (15:57→20:09)
[2022-08-23] MEDS: Heparin Sodium,Porcine 5,000 UNIT/ML VIAL 5000 UNIT SUBCUT ×2 (15:57→21:39)
[2022-08-23] MEDS: 0.9 % Sodium Chloride Flush 3 ML SYRINGE IVFLUSH ×2 (16:00→23:49)
--- NOTE | 2022-08-23 16:04 | PC.NURSE ---
pt. alert and oriented. denies pain. states that he feels sob again. will call resp to give another treatment.
[2022-08-23 18:15] LABS: ABG Refer to POC result
--- NOTE | 2022-08-23 18:52 | MHC.CM.PN ---
Addendum entered by Caitlyn Smiley 08/23/22 19:24: D/C plan is home with VNA. 16 referrals placed. CM will follow for d/c planning Original Note: IMM 08/23. Lives w . Uses cane. Worsening COPD over time, prior to having Flu and PNA. No home O2. LEONEL-no CPAP. May need RT assessment. May need home O2. Followed by [facility]. Was scheduled for pulmonary function testing, but now admitted. Moderna x3. Uses cane. D/C plan:
[2022-08-23 18:59] LABS: Glucose, Whole Blood 165 mg/dL (60-115)
[2022-08-23] MEDS: Doxycycline Hyclate 100 MG in 0.9 % Sodium Chloride 250 ML 166.67 MG IV (19:08)
[2022-08-23] MEDS: Insulin Lispro 100 UNIT/ML 3 ML VIAL SUBCUT (19:08)
[2022-08-23 19:59] LABS: Troponin-I High Sensitivity 106.2 ng/L (<3.5-35.0)
[2022-08-23] MEDS: Atorvastatin Calcium 10 MG TABLET PO (20:09)
[2022-08-23] MEDS: traMADoL HCL 50 MG TABLET PO (20:09)
[2022-08-23] MEDS: Labetalol HCL 200 MG TABLET 400 MG PO (20:10)
--- NOTE | 2022-08-23 21:21 | PC.NURSE ---
Report for overflow given to Patricia BUSH
[2022-08-23] MEDS: Oseltamivir Phosphate 30 MG CAPSULE PO (21:39)
[2022-08-23] MEDS: Zolpidem Tartrate 5 MG TABLET 10 MG PO (21:55)
[2022-08-23] MEDS: Acetaminophen 325 MG TABLET 650 MG PO (21:55)
[2022-08-23 22:02] LABS: Appearance Urine Clear; Color Urine Yellow; Glucose Urine UA 250 mg/dL (Negative); Leukocyte Esterase Urine Negative (Negative); Nitrite Urine Negative (Negative); PH 5.5 (5.0-9.0); Specific Gravity - Urine 1.015 (1.005-1.025); UMIC TRIGGER UACC YES; Urine Blood Negative (Negative); Urine Ketones Trace mg/dL (Negative); Urine Protein 300 (3+) mg/dL (Neg-Trace)
[2022-08-23 22:07] LABS: Bacteria Urine None Seen (None Seen); Hyaline Casts Urine 0-2 /LPF (0-2); RBC Urine 0-2 /HPF (0-2); Squamous Epithelial Cell Urine 0-2 /HPF (0-2); WBC Urine 0-5 /HPF (0-5)
--- NOTE | 2022-08-23 22:10 | PC.NURSE ---
Care of patient assumed in overflow now. Patient is alert, oriented x3. He presents endorsing SOB and difficulty breathing, was initially on CPAP, weaned to 2.5 L NC. He arrives to overflow with 2.5L NC and O2 saturations >94%. He endorses SOB and fatigue- diagnosed with FLU here- precautions in place. Patient is ambulatory, provided with tylenol for generalized discomfort and ambien per request. He independently uses the urinal and is provided with call tobar. Of note, per nursing report, patient with elevated troponins. Patient currently denies chest pain or discomfort- HR NSR 80s on continuous telemetry.
[2022-08-24 03:33] VITALS: O2SAT 94
[2022-08-24] MEDS: Heparin Sodium,Porcine 5,000 UNIT/ML VIAL 5000 UNIT SUBCUT ×2 (05:44→16:05)
[2022-08-24] MEDS: Doxycycline Hyclate 100 MG in 0.9 % Sodium Chloride 250 ML 166.67 MG IV ×2 (05:44→18:20)
[2022-08-24 06:57] VITALS: BP 184/111; PULSE 87; RESP 26; O2SAT 96
[2022-08-24 07:11] LABS: Glucose, Whole Blood 140 mg/dL (60-115)
[2022-08-24 07:34] LABS: Anion Gap 17 (12-20); Blood Urea Nitrogen 40 mg/dL (9-16); Calcium 8.3 mg/dL (8.4-10.2); Carbon Dioxide 21 mmol/L (22-29); Chloride 104 mmol/L (96-108); Creatinine Clr Calc Pharmacy 24.4; Estimated Glomerular Filt Rate 17; Glucose Random 139 mg/dL (60-115); Potassium 4.3 mmol/L (3.3-5.1); Sodium 138 mmol/L (135-145)
[2022-08-24] MEDS: Cinacalcet HCl 30 MG TABLET PO (08:25)
[2022-08-24] MEDS: Cholecalciferol (Vitamin D3) 25 MCG TABLET PO (08:25)
[2022-08-24] MEDS: cloNIDine HCL 0.1 MG TABLET 0.3 MG PO ×3 (08:25→20:36)
[2022-08-24] MEDS: Docusate Sodium 100 MG CAPSULE PO (08:25)
[2022-08-24] MEDS: hydrALAZINE HCl 50 MG TABLET 100 MG PO ×3 (08:25→20:36)
[2022-08-24] MEDS: Losartan Potassium 50 MG TABLET 100 MG PO (08:25)
[2022-08-24] MEDS: SITagliptin Phosphate 50 MG TABLET PO (08:26)
[2022-08-24] MEDS: Albuterol/Iprat 2.5/0.5MG 3 ML AMPUL.NEB INHALE (08:50)
[2022-08-24 08:52] VITALS: PULSE 98; RESP 32; O2SAT 98
[2022-08-24] MEDS: Oseltamivir Phosphate 30 MG CAPSULE PO ×2 (10:06→20:36)
[2022-08-24] MEDS: Labetalol HCL 200 MG TABLET 400 MG PO ×2 (10:06→20:41)
--- NOTE | 2022-08-24 10:18 | P.PNIM_ITS ---
Subjective Subjective Date of Service: 08/24/22 Review of Systems Follow-up sepsis secondary to influenza a, community-acquired pneumonia Still feeling shortness of breath especially with exertion Physical Exam Vital Signs: Vital Signs: Last Vital Signs Temp 100.0 F 08/23/22 21:41 Pulse 98 08/24/22 08:52 Resp 32 H 08/24/22 08:52 BP 184/111 H 08/24/22 06:57 Pulse Ox 96 08/24/22 06:57 O2 Del Method 08/24/22 06:57 O2 Flow Rate 2 08/24/22 06:57 Oxygen Flow Rate 40 08/23/22 10:48 BMI result Body Mass Index 37.3 Appearing in no acute distress lung sounds are clear to auscultation heart regular rate rhythm, clear S1, S2 positive bowel sounds, abdomen is soft, nontender neuro patient is alert x3, no focal deficits Objective Data Active Medications Acetaminophen (Acetaminophen 325 Mg Tablet) 650 mg PO Q6H PRN PRN Reason: Pain, Mild (Pain Scale 1-3) Last Admin: 08/23/22 21:55 Dose: 650 mg Documented By: PRAVEEN Hydrocodone Bitart/Acetaminophen (Hydrocodone Bit/Acetam 5/325 Tablet) 1 tab PO Q6H PRN PRN Reason: Pain, Severe (Pain Scale 7-10) Albuterol/Ipratropium (Albuterol/Iprat 2.5/0.5mg 3 Ml Ampul.Neb) 3 ml INHALE Q4H PRN PRN Reason: sob Last Admin: 08/24/22 08:50 Dose: 3 ml Documented By: FLOYD Atorvastatin Calcium (Atorvastatin Calcium 10 Mg Tablet) 10 mg PO BEDTIME COUNTS INCLUDE 234 BEDS AT THE [facility] Last Admin: 08/23/22 20:09 Dose: 10 mg Documented By: MABEL Cinacalcet (Cinacalcet Hcl 30 Mg Tablet) 30 mg PO DAILY ZOEY Last Admin: 08/24/22 08:25 Dose: 30 mg Documented By: MALCOLM Clonidine HCl (Clonidine Hcl 0.1 Mg Tablet) 0.3 mg PO TID ZOEY; Protocol Last Admin: 08/24/22 08:25 Dose: 0.3 mg Documented By: MALCOLM Dextrose (Dextrose 50 % 25 Gm/50 Ml Syringe) 25 gm IVPUSH Q15M PRN; Protocol PRN Reason: per Hypoglycemia Standing Ord. Docusate Sodium (Docusate Sodium 100 Mg Capsule) 100 mg PO DAILY COUNTS INCLUDE 234 BEDS AT THE [facility] Last Admin: 08/24/22 08:25 Dose: 100 mg Documented By: MALCOLM Fluticasone/Vilanterol (Fluticasone/Vilanterol 100/25 Blst.W.Dev) 1 puff INHALE RDAILY COUNTS INCLUDE 234 BEDS AT THE [facility] Last Admin: 08/24/22 08:36 Dose: Not Given Documented By: MALCOLM Non-Admin Reason: Patient Refused Glucose (Glucose Gel 15 Gm Gel..Gram.) 15 gm PO Q15M PRN; Protocol PRN Reason: per Hypoglycemia Standing Ord. Guaifenesin/Dextromethorphan (Guaifenesin Dm 100/10/5 Ml 5 Ml Syrup) 10 ml PO Q6H PRN PRN Reason: cough Heparin Sodium (Porcine) (Heparin Sodium,Porcine 5,000 Unit/Ml Vial) 5,000 unit SUBCUT Q8H COUNTS INCLUDE 234 BEDS AT THE [facility] Last Admin: 08/24/22 05:44 Dose: 5,000 unit Documented By: PRAVEEN Hydralazine HCl (Hydralazine Hcl 50 Mg Tablet) 100 mg PO TID COUNTS INCLUDE 234 BEDS AT THE [facility]; Protocol Last Admin: 08/24/22 08:25 Dose: 100 mg Documented By: MALCOLM Doxycycline Hyclate 100 mg/ (Sodium Chloride) 250 mls @ 166.67 mls/hr IV Q12H COUNTS INCLUDE 234 BEDS AT THE [facility] Last Infusion: 08/24/22 08:10 Dose: 0 mls/hr Documented By: MALCOLM Insulin Human Lispro (Insulin Lispro 100 Unit/Ml 3 Ml Vial) 0 unit SUBCUT QIDACHS COUNTS INCLUDE 234 BEDS AT THE [facility]; Protocol Last Admin: 08/24/22 08:12 Dose: Not Given Documented By: MALCOLM Non-Admin Reason: No Insulin Coverage Labetalol HCl (Labetalol Hcl 200 Mg Tablet) 400 mg PO BID COUNTS INCLUDE 234 BEDS AT THE [facility]; Protocol Last Admin: 08/24/22 10:06 Dose: 400 mg Documented By: MALCOLM Losartan Potassium (Losartan Potassium 50 Mg Tablet) 100 mg PO DAILY COUNTS INCLUDE 234 BEDS AT THE [facility]; Protocol Last Admin: 08/24/22 08:25 Dose: 100 mg Documented By: MALCOLM Melatonin (Melatonin 3 Mg Tablet) 3 mg PO BEDTIME PRN PRN Reason: Insomnia Nicotine Polacrilex (Nicotine Polacrilex 2 Mg Gum) 2 mg BUCCAL Q2H PRN PRN Reason: Nicotine Cravings Ondansetron HCl (Ondansetron Hcl 4 Mg/2 Ml Vial) 4 mg IVPUSH Q8H PRN PRN Reason: Nausea and Vomiting Oseltamivir Phosphate (Oseltamivir Phosphate 30 Mg Capsule) 30 mg PO Q12H COUNTS INCLUDE 234 BEDS AT THE [facility] Last Admin: 08/24/22 10:06 Dose: 30 mg Documented By: MALCOLM Sitagliptin Phosphate (Sitagliptin Phosphate 50 Mg Tablet) 50 mg PO DAILY COUNTS INCLUDE 234 BEDS AT THE [facility] Last Admin: 08/24/22 08:26 Dose: 50 mg Documented By: MALCOLM Sodium Chloride (0.9 % Sodium Chloride Flush 3 Ml Syringe) 3 ml IVFLUSH QSHIFT COUNTS INCLUDE 234 BEDS AT THE [facility] Last Admin: 08/24/22 08:12 Dose: Not Given Documented By: MALCOLM Non-Admin Reason: IV Running Vitamin D (Cholecalciferol (Vitamin D3) 25 Mcg Tablet) 25 mcg PO Q48H COUNTS INCLUDE 234 BEDS AT THE [facility] Last Admin: 08/24/22 08:25 Dose: 25 mcg Documented By: MALCOLM Zolpidem Tartrate (Zolpidem Tartrate 5 Mg Tablet) 10 mg PO BEDTIME PRN PRN Reason: Sleep Last Admin: 08/23/22 21:55 Dose: 10 mg Documented By: TATIANNALORI Labs CBC & Chem 7: 08/23/22 10:35 08/24/22 06:02 Labs: Laboratory Results - last 24 hr 08/23/22 08/23/22 08/23/22 10:34 10:35 10:35 MCV 90.1 MCH 29.1 MCHC 32.3 RDW 13.2 Plt Count 141 L MPV 11.1 Immature Gran % (Auto) 0.4 Neut % (Auto) 86.6 H Lymph % (Auto) 6.9 L Ross % (Auto) 5.7 Eos % (Auto) 0.1 Baso % (Auto) 0.3 Lymph # (Auto) 0.5 L Ross # (Auto) 0.4 Eos # (Auto) 0.0 Baso # (Auto) 0.0 Abs Immat Gran (auto) 0.03 Absolute Neuts (auto) 6.1 Absolute Nucleated RBC 0.000 Nucleated RBC % (auto) 0.0 ESR 8 PT INR APTT O2 Saturation ABG pH at Pt Temp ABG pCO2 at Pt Temp ABG pO2 at Pt Temp ABG HCO3 ABG Base Excess (Actual) Anion Gap Estim Creat Clear Calc Estimated GFR POC Glucose 211 H Random Glucose Lactic Acid Calcium Total Bilirubin AST ALT Alkaline Phosphatase Troponin I High Sens B-Natriuretic Peptide Total Protein Albumin Lipase Urine Color Urine Appearance Urine pH Ur Specific [place] Urine Protein Urine Glucose (UA) Urine Ketones Urine Blood Urine Nitrite Ur Leukocyte Esterase Urine RBC Urine WBC Ur Squamous Epith Cells Urine Bacteria Hyaline Casts COVID-19 (DEBBIE) COVID-19 Clin Com Influenza Type A (RAAD) Influenza Type B (RAAD) Influenza A & B Note 08/23/22 08/23/22 08/23/22 10:35 10:35 10:35 MCV MCH MCHC RDW Plt Count MPV Immature Gran % (Auto) Neut % (Auto) Lymph % (Auto) Ross % (Auto) Eos % (Auto) Baso % (Auto) Lymph # (Auto) Ross # (Auto) Eos # (Auto) Baso # (Auto) Abs Immat Gran (auto) Absolute Neuts (auto) Absolute Nucleated RBC Nucleated RBC % (auto) ESR PT 15.8 H INR 1.4 H APTT 30.1 O2 Saturation ABG pH at Pt Temp ABG pCO2 at Pt Temp ABG pO2 at Pt Temp ABG HCO3 ABG Base Excess (Actual) Anion Gap 14 Estim Creat Clear Calc 24.2 Estimated GFR 17 POC Glucose Random Glucose 197 H Lactic Acid 1.5 Calcium 8.1 L Total Bilirubin 0.8 AST 23 ALT 13 Alkaline Phosphatase 88 Troponin I High Sens B-Natriuretic Peptide Total Protein 7.1 Albumin 4.2 Lipase 27 Urine Color Urine Appearance Urine pH Ur Specific [place] Urine Protein Urine Glucose (UA) Urine Ketones Urine Blood Urine Nitrite Ur Leukocyte Esterase Urine RBC Urine WBC Ur Squamous Epith Cells Urine Bacteria Hyaline Casts COVID-19 (DEBBIE) COVID-19 Clin Com Influenza Type A (RAAD) Influenza Type B (RAAD) Influenza A & B Note 08/23/22 08/23/22 08/23/22 10:35 10:35 11:06 MCV MCH MCHC RDW Plt Count MPV Immature Gran % (Auto) Neut % (Auto) Lymph % (Auto) Ross % (Auto) Eos % (Auto) Baso % (Auto) Lymph # (Auto) Ross # (Auto) Eos # (Auto) Baso # (Auto) Abs Immat Gran (auto) Absolute Neuts (auto) Absolute Nucleated RBC Nucleated RBC % (auto) ESR PT INR APTT O2 Saturation ABG pH at Pt Temp ABG pCO2 at Pt Temp ABG pO2 at Pt Temp ABG HCO3 ABG Base Excess (Actual) Anion Gap Estim Creat Clear Calc Estimated GFR POC Glucose Random Glucose Lactic Acid Calcium Total Bilirubin AST ALT Alkaline Phosphatase Troponin I High Sens 65.4 H B-Natriuretic Peptide 2674 H Total Protein Albumin Lipase Urine Color Urine Appearance Urine pH Ur Specific [place] Urine Protein Urine Glucose (UA) Urine Ketones Urine Blood Urine Nitrite Ur Leukocyte Esterase Urine RBC Urine WBC Ur Squamous Epith Cells Urine Bacteria Hyaline Casts COVID-19 (DEBBIE) COVID-19 Clin Com Influenza Type A (RAAD) Positive A Influenza Type B (RAAD) Negative Influenza A & B Note See Note 08/23/22 08/23/22 08/23/22 11:06 11:28 15:10 MCV MCH MCHC RDW Plt Count MPV Immature Gran % (Auto) Neut % (Auto) Lymph % (Auto) Ross % (Auto) Eos % (Auto) Baso % (Auto) Lymph # (Auto) Ross # (Auto) Eos # (Auto) Baso # (Auto) Abs Immat Gran (auto) Absolute Neuts (auto) Absolute Nucleated RBC Nucleated RBC % (auto) ESR PT INR APTT O2 Saturation 97.0 ABG pH at Pt Temp 7.34 L ABG pCO2 at Pt Temp 39 ABG pO2 at Pt Temp 96 ABG HCO3 21 L ABG Base Excess (Actual) -3.3 Anion Gap Estim Creat Clear Calc Estimated GFR POC Glucose Random Glucose Lactic Acid Calcium Total Bilirubin AST ALT Alkaline Phosphatase Troponin I High Sens 113.2 H* D B-Natriuretic Peptide Total Protein Albumin Lipase Urine Color Urine Appearance Urine pH Ur Specific [place] Urine Protein Urine Glucose (UA) Urine Ketones Urine Blood Urine Nitrite Ur Leukocyte Esterase Urine RBC Urine WBC Ur Squamous Epith Cells Urine Bacteria Hyaline Casts COVID-19 (DEBBIE) Negative COVID-19 Clin Com See Note Influenza Type A (RAAD) Influenza Type B (RAAD) Influenza A & B Note 08/23/22 08/23/22 08/23/22 18:55 19:08 21:51 MCV MCH MCHC RDW Plt Count MPV Immature Gran % (Auto) Neut % (Auto) Lymph % (Auto) Ross % (Auto) Eos % (Auto) Baso % (Auto) Lymph # (Auto) Ross # (Auto) Eos # (Auto) Baso # (Auto) Abs Immat Gran (auto) Absolute Neuts (auto) Absolute Nucleated RBC Nucleated RBC % (auto) ESR PT INR APTT O2 Saturation ABG pH at Pt Temp ABG pCO2 at Pt Temp ABG pO2 at Pt Temp ABG HCO3 ABG Base Excess (Actual) Anion Gap Estim Creat Clear Calc Estimated GFR POC Glucose 165 H Random Glucose Lactic Acid Calcium Total Bilirubin AST ALT Alkaline Phosphatase Troponin I High Sens 106.2 H* B-Natriuretic Peptide Total Protein Albumin Lipase Urine Color Yellow Urine Appearance Clear Urine pH 5.5 Ur Specific [place] 1.015 Urine Protein 300 (3+) H Urine Glucose (UA) 250 H Urine Ketones Trace Urine Blood Negative Urine Nitrite Negative Ur Leukocyte Esterase Negative Urine RBC 0-2 Urine WBC 0-5 Ur Squamous Epith Cells 0-2 Urine Bacteria None Seen Hyaline Casts 0-2 COVID-19 (DEBBIE) COVID-19 Clin Com Influenza Type A (RAAD) Influenza Type B (RAAD) Influenza A & B Note 08/24/22 08/24/22 06:02 06:49 MCV MCH MCHC RDW Plt Count MPV Immature Gran % (Auto) Neut % (Auto) Lymph % (Auto) Ross % (Auto) Eos % (Auto) Baso % (Auto) Lymph # (Auto) Ross # (Auto) Eos # (Auto) Baso # (Auto) Abs Immat Gran (auto) Absolute Neuts (auto) Absolute Nucleated RBC Nucleated RBC % (auto) ESR PT INR APTT O2 Saturation ABG pH at Pt Temp ABG pCO2 at Pt Temp ABG pO2 at Pt Temp ABG HCO3 ABG Base Excess (Actual) Anion Gap 17 Estim Creat Clear Calc 24.4 Estimated GFR 17 POC Glucose 140 H Random Glucose 139 H Lactic Acid Calcium 8.3 L Total Bilirubin AST ALT Alkaline Phosphatase Troponin I High Sens B-Natriuretic Peptide Total Protein Albumin Lipase Urine Color Urine Appearance Urine pH Ur Specific [place] Urine Protein Urine Glucose (UA) Urine Ketones Urine Blood Urine Nitrite Ur Leukocyte Esterase Urine RBC Urine WBC Ur Squamous Epith Cells Urine Bacteria Hyaline Casts COVID-19 (DEBBIE) COVID-19 Clin Com Influenza Type A (RAAD) Influenza Type B (RAAD) Influenza A & B Note Assessment and Plan (1) Pneumonia: Status: Acute Plan 66-year-old gentleman with past medical history significant for chronic kidney disease, history of COPD, obstructive sleep apnea not on CPAP, obesity presented to [facility] due to symptoms of shortness of breath and cough of 2-3 days duration associated with fever patient diagnosed to have influenza a infection with high likelihood of super added bacterial infection, no clinical evidence of CHF. Sepsis secondary to Influenza A infection /pneumonia with super added bacterial infection Tachypnea, tachycardia Continue renally dosed Tamiflu IV doxycycline Cough medication DuoNebs as needed Supplemental oxygen Elevated BNP No signs of acute heart failure Likely secondary to chronic kidney disease Follow Elevated troponin No ischemic changes noted on EKG Likely secondary in light of sepsis, influenza and pneumonia Follow for any changes Diabetes mellitus type 2 Continue Januvia, sliding scale, ADA diet Tobacco use disorder Nicotine replacement therapy offered Obesity. BMI 37.3 Discussed importance of weight management as this may be contributing to worsening of other comorbidities Chronic kidney disease stage 4 Close to baseline Continue Sensipar Hypertension with elevated blood pressure Continue clonidine, hydralazine, labetalol, Cozaar Obstructive sleep apnea Currently not on CPAP, continuing outpatient workup Hyperlipidemia Continue statin DVT prophylaxis placed on heparin Attending Dr. Lacey Full code Continue hospitalization for treatment of sepsis secondary to community-acquired pneumonia and influenza requiring IV antibiotics and close monitoring of oxygen requirements Time Spent With Patient Time: Total time managing care of this patient today ____ minutes. Quality Stroke Does the patient have a stroke diagnosis?: No VTE Prior VTE?: No VTE Risk Level:: Medical - moderate - high VTE Device Contraindication: Treatment Not Indicated VTE Drug Contraindication: N/A - Med Ordered
[2022-08-24 12:47] LABS: Glucose, Whole Blood 166 mg/dL (60-115)
[2022-08-24] MEDS: Insulin Lispro 100 UNIT/ML 3 ML VIAL SUBCUT ×2 (13:25→21:26)
[2022-08-24 15:43] VITALS: BP 157/97; PULSE 79; RESP 16; TEMP 36.5; O2SAT 95
[2022-08-24] MEDS: 0.9 % Sodium Chloride Flush 3 ML SYRINGE IVFLUSH (16:05)
[2022-08-24 18:13] LABS: Glucose, Whole Blood 150 mg/dL (60-115)
[2022-08-24] MEDS: Atorvastatin Calcium 10 MG TABLET PO (20:36)
[2022-08-24 21:06] LABS: Glucose, Whole Blood 194 mg/dL (60-115)
[2022-08-24] MEDS: Zolpidem Tartrate 5 MG TABLET 10 MG PO (23:20)
[2022-08-25] VITALS (7 sets, daily range): BP systolic 122–143; BP diastolic 69–92; PULSE 61–75; RESP 12–18; TEMP 36.6–36.9; O2SAT 96–99
--- NOTE | 2022-08-25 03:06 | PC.NURSE ---
pt refuses heparin very sensitive to blood thinners having bloody sputum Dr. Ambriz notified.
--- NOTE | 2022-08-25 03:23 | PC.NURSE ---
Pt sleeping at this time, respirations regular.
[2022-08-25] MEDS: Doxycycline Hyclate 100 MG in 0.9 % Sodium Chloride 250 ML 166.67 MG IV ×2 (05:32→18:19)
--- NOTE | 2022-08-25 05:45 | PC.NURSE ---
Pt preforming ADLs in room.
[2022-08-25 06:41] LABS: Anion Gap 15 (12-20); Blood Urea Nitrogen 54 mg/dL (9-16); Calcium 7.8 mg/dL (8.4-10.2); Carbon Dioxide 22 mmol/L (22-29); Chloride 105 mmol/L (96-108); Creatinine Clr Calc Pharmacy 23.4; Estimated Glomerular Filt Rate 16; Glucose Random 109 mg/dL (60-115); Potassium 4.2 mmol/L (3.3-5.1); Sodium 138 mmol/L (135-145)
[2022-08-25 06:45] LABS: B Type Natriuretic Peptide 859 pg/mL (<100)
--- NOTE | 2022-08-25 06:47 | PC.NURSE ---
Pt refused heparin, aware.
[2022-08-25] MEDS: Losartan Potassium 50 MG TABLET 100 MG PO (08:52)
[2022-08-25] MEDS: Docusate Sodium 100 MG CAPSULE PO (08:52)
[2022-08-25] MEDS: hydrALAZINE HCl 50 MG TABLET 100 MG PO ×3 (08:52→21:06)
[2022-08-25] MEDS: cloNIDine HCL 0.1 MG TABLET 0.3 MG PO ×3 (08:53→21:07)
[2022-08-25] MEDS: Cinacalcet HCl 30 MG TABLET PO (08:53)
[2022-08-25] MEDS: Oseltamivir Phosphate 30 MG CAPSULE PO ×2 (08:53→21:07)
[2022-08-25] MEDS: SITagliptin Phosphate 50 MG TABLET PO (08:53)
[2022-08-25] MEDS: Heparin Sodium,Porcine 5,000 UNIT/ML VIAL 5000 UNIT SUBCUT (08:53)
[2022-08-25] MEDS: Labetalol HCL 200 MG TABLET 400 MG PO ×2 (08:53→21:07)
[2022-08-25] MEDS: Albuterol/Iprat 2.5/0.5MG 3 ML AMPUL.NEB INHALE (08:54)
[2022-08-25] MEDS: Fluticasone/Vilanterol 100/25 BLST.W.DEV 1 PUFF INHALE (08:57)
--- NOTE | 2022-08-25 12:31 | PC.NURSE ---
pt family member concerned that pt is being discharged, pt and family educated about admission status at this time and no impending dc order in place at this time. pt family is also asking if pt can have [facility] involved in pts care.
[2022-08-25 13:37] LABS: Glucose, Whole Blood 131 mg/dL (60-115)
--- NOTE | 2022-08-25 13:40 | MHC.EDTECH ---
Patient's came out of their room and was frustrated about how her (the patient) has not received lunch yet and asked to speak with the extension service supervisor and case management. RN reached out to both departments. At this time, lunch has not arrived.
--- NOTE | 2022-08-25 13:43 | PC.NURSE ---
this rn returning to unit, being confronted by pt family member about lunches. i want to speak with someone in charge or a manager social or something because the lunch situation here... im raiza koch, hes a diabetic and im getting no input on his care . case mgmt made aware of these statements, nursing supervisor furnace room and hospitalist aware as well. pt offers no new complaints himself, in no apparent distress, rr even/unlabored.
--- NOTE | 2022-08-25 13:58 | MHC.CM.ED ---
Addendum entered by Debbie Rodrigues 08/25/22 14:01: House Superintendent, Tala velarde. Original Note: Received [employer] message from Truong BUSH about patient's being upset about patient not receiving lunch and apparently questions about discharge. Patient was seen by case management when patient was admitted. It appears a tentative plan of discharging home with his and a new VNA referral was made for when patient is medically stable. At this time, patient does not appear medically stable for discharge. Kim HALL aware and will reach out to patient and . Continue to monitor for d/c needs.
[2022-08-25 18:25] LABS: Glucose, Whole Blood 144 mg/dL (60-115)
--- NOTE | 2022-08-25 19:34 | PC.NURSE ---
Addendum entered by She Reid RN 08/26/22 06:51: report given to RACHELLE Yadav Original Note: report received from RACHELLE Guerin pt is alert and oriented resting in the chair, watching tv no signs of acute distress notice breathing equally unlabored
[2022-08-25] MEDS: Albuterol Sulfate (0.083%) 2.5 MG/3 ML VIAL.NEB INHALE (20:37)
[2022-08-25 20:51] LABS: Glucose, Whole Blood 181 mg/dL (60-115)
[2022-08-25] MEDS: Atorvastatin Calcium 10 MG TABLET PO (21:07)
[2022-08-25] MEDS: Zolpidem Tartrate 5 MG TABLET 10 MG PO (21:07)
[2022-08-25] MEDS: Insulin Lispro 100 UNIT/ML 3 ML VIAL SUBCUT (21:12)
[2022-08-26 05:17] LABS: B Type Natriuretic Peptide 340 pg/mL (<100)
[2022-08-26] MEDS: Doxycycline Hyclate 100 MG in 0.9 % Sodium Chloride 250 ML 166 MG IV (05:21)
[2022-08-26 05:35] VITALS: BP 143/92; PULSE 67; RESP 12; TEMP 36.1; O2SAT 95
[2022-08-26 07:04] LABS: Glucose, Whole Blood 132 mg/dL (60-115)
[2022-08-26] MEDS: hydrALAZINE HCl 50 MG TABLET 100 MG PO (09:15)
[2022-08-26] MEDS: Cholecalciferol (Vitamin D3) 25 MCG TABLET PO (09:16)
[2022-08-26] MEDS: Oseltamivir Phosphate 30 MG CAPSULE PO (09:16)
[2022-08-26] MEDS: Losartan Potassium 50 MG TABLET 100 MG PO (09:16)
[2022-08-26] MEDS: Docusate Sodium 100 MG CAPSULE PO (09:16)
[2022-08-26] MEDS: Cinacalcet HCl 30 MG TABLET PO (09:18)
[2022-08-26] MEDS: SITagliptin Phosphate 50 MG TABLET PO (09:18)
[2022-08-26] MEDS: Labetalol HCL 200 MG TABLET 400 MG PO (09:19)
[2022-08-26] MEDS: 0.9 % Sodium Chloride Flush 3 ML SYRINGE IVFLUSH (09:24)
[2022-08-26 09:27] VITALS: PULSE 74; PULSE 87; O2SAT 95; O2SAT 97
[2022-08-26] MEDS: cloNIDine HCL 0.1 MG TABLET 0.3 MG PO (10:28)
[2022-08-26] MEDS: Albuterol Sulfate (0.083%) 2.5 MG/3 ML VIAL.NEB INHALE (11:08)
[2022-08-26 11:10] VITALS: PULSE 83; RESP 18; O2SAT 94
--- NOTE | 2022-08-26 11:14 | P.DS_ITS ---
DS: Providers Provider Date of Service: 08/26/22 Date of admission: 08/23/22 14:11 Primary care physician: Ayaka Salgado MD Attending physician on discharge: Chester Lacey Discharging clinician: Kim Paulino DS: Diagnosis Discharge Diagnosis (1) Pneumonia: Status: Acute DS: Summary Hospital Course Hospital Course: History and physical as per admitting provider 66-year-old gentleman with past medical history significant for COPD, not on home oxygen, history of obstructive sleep apnea not on CPAP, history of diabetes mellitus type 2, dyslipidemia, hypertension, chronic kidney disease Presented to [facility] for 2-3 days history of shortness of breath associated with cough productive of clear phlegm associated with fever up to 100.7, and chills he denies associated headache lightheadedness or dizziness, denies leg swelling, no orthopnea, no PND, denies sick contacts no other family member with similar symptoms, due to worsening shortness of breath overnight patient called paramedics who noted patient to be in respiratory distress with elevated respiratory rate and blood pressure of 186/122 patient was placed on CPAP and transported to [facility] on arrival to ED patient was placed on BiPAP patient was noted to be extremely anxious treated with 2 mg of Versed and 2 mg of morphine IV, chest x-ray showed bilateral nodular opacities right greater than left, nonspecific either infectious or inflammatory but a cardiogenic etiology was not completely excluded, COVID-19 test came back negative, however influenza a is positive, patient also noted to have elevated BNP,, ABG showed pH 7.34, pCO2 of 39 and PO2 of 95 while on BiPAP and 2 L of oxygen, in the emergency room patient treated with IV ceftriaxone, azithromycin and Tamiflu, currently patient is feeling better off BiPAP on 2 L of oxygen and now being admitted to [facility] due to influenza A, with likely super added bacterial infection . Sepsis secondary to Influenza A infection /pneumonia with super added bacterial infection Tachypnea, tachycardia. Resolved Treated with renally dosed Tamiflu, IV doxycycline Cough medication DuoNebs as needed Supplemental oxygen Home O2 evaluation, did not require as oxygen saturation did not go below 95% with ambulation Continue 2 more days of doxycycline Elevated BNP No signs of acute heart failure Likely secondary to chronic kidney disease Elevated troponin No ischemic changes noted on EKG Likely secondary in light of sepsis, influenza and pneumonia Diabetes mellitus type 2 Continue medications Tobacco use disorder Nicotine replacement therapy offered Obesity.? BMI 37.3 Discussed importance of weight management as this may be contributing to worsening of other comorbidities Chronic kidney disease stage 4 Close to baseline Continue Sensipar Hypertension with elevated blood pressure. Better blood pressure control Continue clonidine, hydralazine, labetalol, Cozaar Obstructive sleep apnea Encourage use patient using CPAP at home, encouraged use. Follow-up with primary care provider to find alternate mask ideas Hyperlipidemia Continue statin Time Spent with Patient Time attestation: Total time managing care of this patient today ____ minutes. Discharge coordination time: Greater than 30 minutes Quality: Safe Use of Opioids Does Pt have an Active Cancer Diagnosis on the Problem List?: No Quality: Stroke Does the patient have a stroke diagnosis?: No Physical Exam Vital Signs: Vital Signs: Last Vital Signs Temp 97 F 08/26/22 05:35 Pulse 83 08/26/22 11:10 Resp 18 08/26/22 11:10 BP 143/92 H 08/26/22 05:35 Pulse Ox 95 08/26/22 05:35 O2 Del Method 08/26/22 05:35 O2 Flow Rate 2 08/25/22 05:59 Oxygen Flow Rate 40 08/23/22 10:48 BMI result Body Mass Index 37.3 DS: Data Data Completed and Pending Labs on day of discharge: Laboratory Results - last 24 hr 08/25/22 08/25/22 08/25/22 13:33 18:21 20:46 POC Glucose 131 H 144 H 181 H B-Natriuretic Peptide 08/26/22 08/26/22 04:44 06:50 POC Glucose 132 H B-Natriuretic Peptide 340 H Preliminary micro results at discharge 08/23/22 11:06 Blood Culture - Preliminary Blood - Venous No growth after 48 hours. 08/23/22 10:35 Blood Culture - Preliminary Blood - Venous No growth after 48 hours. Discharge Plan Discharge Anticipated Discharge Date/Time: 08/26/22 11:04 Patient Disposition: Home, Self-Care Discharge Diagnosis: Sepsis secondary to Influenza A infection /pneumonia with super added bacterial infection Referrals: Ayaka Salgado MD [Primary Care Provider] - 1 Week Discharge Medications: New doxycycline hyclate 100 mg tablet 100 mg PO BID Qty: 4 0RF Continued lidocaine 5 % adhesive patch,medicated 1 patch topical DAILY clonidine HCl 0.3 mg tablet 0.3 mg PO TID zolpidem 10 mg tablet 10 mg PO BEDTIME PRN (Reason: Sleep) cholecalciferol (vitamin D3) 25 mcg (1,000 unit) capsule 25 mcg PO Q48H simvastatin 20 mg tablet 20 mg PO QPM cinacalcet 30 mg tablet 30 mg PO DAILY glimepiride 1 mg tablet 1 mg PO DAILY Januvia 50 mg tablet 50 mg PO DAILY labetalol 200 mg tablet 400 mg PO BID docusate sodium [Colace] 100 mg capsule 100 mg PO DAILY (DME) lancets [FreeStyle Lancets] 28 gauge misc See Rx Instructions .ROUTE .MEDSUPPLY Qty: 100 Rx Instructions: As directed (DME) blood-glucose meter [FreeStyle Lite Meter] Kit See Rx Instructions .ROUTE .MEDSUPPLY Qty: 1 Rx Instructions: As directed budesonide-formoterol [Symbicort] 160-4.5 mcg/actuation HFA aerosol inhaler 2 puff inhalation BID hydralazine 100 mg tablet 100 mg PO TID oxycodone-acetaminophen 5-325 mg tablet 1 tab PO Q8H PRN (Reason: Pain) losartan 100 mg tablet 100 mg PO DAILY Discharge Orders: Discharge Order (Routine); Ordered 08/26/22 Ordered By: Kim Paulino Diet: Advance to usual diet Activity on Discharge: As tolerated Stand Alone Forms: Patient Portal Discharge page Care Plan Goals: Complete resolution of symptoms Health Concerns: Sepsis secondary to Influenza A infection /pneumonia with super added bacterial infection Plan of Treatment: Follow-up with primary care provider as needed Take all medications as prescribed Assessment: See discharge summary
[2022-08-26 11:19] LABS: Glucose, Whole Blood 151 mg/dL (60-115)
--- NOTE | 2022-08-26 11:37 | PC.NURSE ---
Pt see by bed side with provider, Pt denies chest pain, headache,SOB. Pt ambulate with respiratory therapy and has O2sat of 95 in RA. Pt verbalize he is feeling better and ready for D/C.
[2022-08-26 12:00] VITALS: O2SAT 97
== END 2022-08-26 12:21 | disposition home or self-care (01) | DRG 871 ==
LOC: HO.ED 11:01 → HO.EDOVER 14:35
PROVIDERS: Nurse Practitioner Family; Admitting Provider Hospitalist; Emergency Provider Emergency Medicine Emergency Medical Services; PCP Internal Medicine; Visit Provider Nurse Practitioner Acute Care
DX: A41.89 Other specified sepsis (principal); J10.00 Influenza due to other identified influenza virus with unspecified type of pneumonia; J44.0 Chronic obstructive pulmonary disease with (acute) lower respiratory infection; N18.4 Chronic kidney disease, stage 4 (severe); K21.9 Gastro-esophageal reflux disease without esophagitis; I45.10 Unspecified right bundle-branch block; I12.9 Hypertensive chronic kidney disease with stage 1 through stage 4 chronic kidney disease, or unspecified chronic kidney disease; E78.5 Hyperlipidemia, unspecified; E11.22 Type 2 diabetes mellitus with diabetic chronic kidney disease; G47.33 Obstructive sleep apnea (adult) (pediatric); E66.9 Obesity, unspecified; Z68.37 Body mass index [BMI] 37.0-37.9, adult; Z20.822 Contact with and (suspected) exposure to COVID-19; Z88.6 Allergy status to analgesic agent; Z88.8 Allergy status to other drugs, medicaments and biological substances; Z79.899 Other long term (current) drug therapy
CPT/HCPCS: 36415; 71045; 80048; 80053; 81001; 81003; 82803; 82947; 83605; 83690; 83880; 84484; 85025; 85610; 85652; 85730; 87040; 87502; 87635; 93005; 94640; 94660; 97161; 99285; J0456; J0696; J2250; J2270

== ENCOUNTER 2022-09-14 02:20 | Inpatient (IN) | payer MEDICARE, OTHER, SELFPAY ==
[2022-09-14] VITALS (16 sets, daily range): BP systolic 105–232; BP diastolic 72–151; PULSE 72–129; RESP 16–22; TEMP 36.5–37.4; O2SAT 91–98; BMI 35.7
--- NOTE | ~2022-09-14 | XR_ITS ---
EXAMINATION: XR CHEST CLINICAL INFORMATION: Shortness of breath COMPARISON: 08/23/2022 TECHNIQUE: Frontal view of the chest was obtained. FINDINGS: Bilateral patchy and nodular airspace opacities show a degree of improvement from the prior exam. No pleural effusion or pneumothorax. Stable cardiomegaly. Vascularity within normal limits. Aorta is atherosclerotic. No acute osseous abnormalities. XR/XR chest 1V IMPRESSION: Bilateral airspace opacities show a degree of improvement from the prior exam.
--- NOTE | ~2022-09-14 | US_ITS ---
EXAMINATION: US VENOUS ULTRASOUND WITH DOPPLER LOWER EXTREMITY, LEFT CLINICAL INFORMATION: Swollen left leg COMPARISON: None TECHNIQUE: Ultrasound of the deep veins is performed from the hip to the calf with compression sonography and color and pulse Doppler assessment. Spectral analysis with color-flow imaging is performed. FINDINGS: There is normal venous compression and respiratory variation and augmented flow. The visualized common femoral vein, superficial femoral vein, profunda femoral vein, popliteal vein, and the trifurcation region shows no evidence of deep venous thrombosis. There is no significant popliteal fossa cyst. No popliteal artery aneurysm. US/US venous duplex LE LT IMPRESSION: No acute DVT demonstrated in the left lower extremity.
--- NOTE | 2022-09-14 02:23 | ED.SOB ---
HPI - SOB/Dyspnea General Chief Complaint: Dyspnea Stated Complaint: difficulty breathing Time Seen by Provider: 09/14/22 02:23 History of Present Illness HPI Narrative: Patient smoker, with history of COPD , LEONEL not using any CPAP, type 2 diabetes, dyslipidemia, hypertension, CKD , paroxysmal AFib not on anticoagulants because of nose bleed comes here for increased shortness of breath just prior to arrival patient woke up from the sleep which increased shortness of breath checked his pulse ox was 79% , patient did home covid testing last night was positive , with just discharged on 09/05 after 3 days stay of acute shortness of breath at that time patient was positive for influenza A. Patient already been vaccinated against COVID after oxygen patient was saturating 94% on 4 L of oxygen patient does not use any oxygen at home otherwise Related Data Home Medications Medication Instructions Recorded Confirmed cholecalciferol (vitamin D3) 25 25 mcg PO Q48H 06/22/20 09/14/22 mcg (1,000 unit) capsule cinacalcet 30 mg tablet 30 mg PO DAILY 06/22/20 09/14/22 clonidine HCl 0.3 mg tablet 0.3 mg PO TID 06/22/20 09/14/22 glimepiride 1 mg tablet 1 mg PO DAILY 06/22/20 09/14/22 simvastatin 20 mg tablet 20 mg PO QPM 06/22/20 09/14/22 sitagliptin phosphate 50 mg tablet 50 mg PO DAILY 06/22/20 09/14/22 (Januvia) zolpidem 10 mg tablet 10 mg PO BEDTIME PRN Sleep 06/22/20 09/14/22 blood-glucose meter (FreeStyle #1 ea 11/07/20 09/14/22 Lite Meter kit) lancets 28 gauge (FreeStyle #100 ea 11/07/20 09/14/22 Lancets) hydralazine 100 mg tablet 100 mg PO TID 02/14/22 09/14/22 losartan 100 mg tablet 100 mg PO DAILY 02/14/22 09/14/22 oxycodone-acetaminophen 5 mg-325 1 tab PO Q8H PRN Pain 02/14/22 09/14/22 mg tablet labetalol 200 mg tablet 400 mg PO BID 05/21/22 09/14/22 budesonide-formoterol HFA 160 2 puff inhalation BID 07/25/22 09/14/22 mcg-4.5 mcg/actuation aerosol inhaler (Symbicort) lidocaine 5 % topical patch 1 patch topical DAILY 08/23/22 09/14/22 bumetanide 0.5 mg tablet 1 tab PO DAILY 09/14/22 09/14/22 Allergies Allergy/AdvReac Type Severity Reaction Status Date / Time aspirin AdvReac Unknown nose bleeds Verified 07/25/22 16:37 metformin AdvReac Unknown hypoglycemi Verified 07/25/22 16:37 a warfarin [From Coumadin] AdvReac Unknown Nose Bleed Verified 09/14/22 05:55 apixaban AdvReac Nose Bleed Verified 09/14/22 02:56 clopidogrel AdvReac Nose Bleed Verified 09/14/22 02:56 Review of Systems Review of Systems: Yes all other systems are reviewed and are negative [facility] Past Medical History Medical History CKD (chronic kidney disease) COPD (chronic obstructive pulmonary disease) COPD (chronic obstructive pulmonary disease) Diabetes mellitus Dyslipidemia Dyspnea on minimal exertion Hypertension Left ventricular hypertrophy Obesity LEONEL (obstructive sleep apnea) Smoker Smoking Surgical History No pertinent past surgical history Family History Family History Father No problems noted. Mother Diabetes Family/Other No problems noted. Social History Social History Alcohol intake: former Patient Tobacco Use Status: Current everyday Tobacco user Cigarettes Per Day: 5 Smoked in Last 30 Days: No Advance Directives: Yes Advance Directives on File: Yes Advance Directives Date on File: 08/23/22 service: No Current occupational status: disabled Physical Exam Vital Signs: Vital Signs: Last Vital Signs Temp 98.4 F 09/14/22 06:05 Pulse 88 09/14/22 06:05 Resp 16 09/14/22 06:05 BP 155/84 H 09/14/22 06:05 Pulse Ox 97 09/14/22 06:05 O2 Del Method 09/14/22 06:05 O2 Flow Rate 3 09/14/22 06:05 Oxygen Flow Rate 4 09/14/22 02:31 BMI result Body Mass Index 35.7 Appearance: Alert. Oriented X3. Moderate respiratory distress. Eyes: PERRLA, No Nystagmus ENT: Pharynx normal. Oral Mucosa moist Neck: Normal inspection. Neck supple. CVS: Normal heart rate and rhythm. Pulses normal. Respiratory: Moderate respiratory distress. Equal air entry bilateral, bilateral prolonged expiration with wheezing occasional crackles at bases Abdomen: Soft and nontender. Bowel sounds are present, no mass palpable, no CVA tenderness Skin: Skin warm and dry. Normal skin color. Normal skin turgor. Extremities: 2+ lower extremity edema. No calf tenderness Neuro: Oriented X 3. No motor deficit. No sensory deficit.No cerebellar signs , cranial nerves II-XII intact Medications Administered Discontinued Medications Generic Name Dose Route Start Last Admin Trade Name Freq PRN Reason Stop Dose Admin Albuterol Sulfate 5 mg/ 0 mg 09/14/22 02:31 09/14/22 03:01 Albuterol/Ipratropium 3 ml INHALE 09/14/22 02:32 1 each ONCE ONE Administration Dexamethasone 10 mg 09/14/22 02:31 09/14/22 02:58 Dexamethasone 2 Mg Tablet PO 09/14/22 02:32 10 mg ONCE ONE Administration Medical Decision Making Medical Decision Making [facility] Narrative: Patient with COVID 19 with hypoxia chest x-ray improving infiltrate will give nebulizing treatment steroids admit for hypoxia Lab Data [facility] Lab Attestation statement: I reviewed the patient's lab results. Result Diagrams: 09/14/22 02:43 09/14/22 02:43 Labs: Lab Results 09/14/22 09/14/22 09/14/22 Range/Units 02:43 02:43 02:43 WBC 5.2 (4.8-10.8) X10*3/uL RBC 4.02 L (4.60-5.80) X10*6/uL Hgb 11.7 L (14.0-18.0) g/dl Hct 36.9 L (42.0-52.0) % MCV 91.8 (80.0-98.0) fL MCH 29.1 (27.0-33.0) pg MCHC 31.7 (31.0-36.0) g/dl RDW 13.0 (11.0-16.0) % Plt Count 156 L (160-400) X10*3/uL MPV 11.2 (9.4-12.4) fL Immature Gran % (Auto) 0.4 (0.0-0.4) % Neut % (Auto) 67.9 (45-73) % Lymph % (Auto) 21.0 (20-40) % [place] % (Auto) 8.0 (2-11) % Eos % (Auto) 2.3 (0-4) % Baso % (Auto) 0.4 (0-2) % Lymph # (Auto) 1.1 L (1.2-4.9) X10*3/uL [place] # (Auto) 0.4 (0.1-1.2) X10*3/uL Eos # (Auto) 0.1 (0.0-0.4) X10*3/uL Baso # (Auto) 0.0 (0.0-0.2) X10*3/uL Abs Immat Gran (auto) 0.02 (0.00-0.03) X10*3/uL Absolute Neuts (auto) 3.5 (2.0-8.3) x10*3/uL Absolute Nucleated RBC 0.000 (0.0-0.012) X10*3/uL Nucleated RBC % (auto) 0.0 (0.0-0.2) /100WBC PT 17.4 H (10.0-13.1) SEC INR 1.5 H (0.9-1.1) VBG pH (7.32-7.43) VBG pCO2 mmHg VBG pO2 mmHg VBG HCO3 (22-26) mmol/L VBG O2 Saturation % VBG Base Excess mmol/L Sodium 139 (135-145) mmol/L Potassium 4.3 (3.3-5.1) mmol/L Chloride 107 (96-108) mmol/L Carbon Dioxide 24 (22-29) mmol/L Anion Gap 12 (12-20) BUN 25 H (9-16) mg/dL Creatinine 3.41 H (0.5-1.4) mg/dL Estim Creat Clear Calc 25.9 Estimated GFR 18 Random Glucose 183 H (60-115) mg/dL Lactic Acid (0.5-2.0) mmol/L Calcium 8.0 L (8.4-10.2) mg/dL Total Bilirubin 0.7 (0.0-1.0) mg/dL AST 26 (5-37) U/L ALT 20 (0-40) U/L Alkaline Phosphatase 96 (39-117) U/L Troponin I High Sens (<3.5-35.0) ng/L B-Natriuretic Peptide (<100) pg/mL Total Protein 6.9 (6.5-8.0) g/dL Albumin 4.1 (3.5-5.0) g/dL COVID-19 (DEBBIE) (Negative) COVID-19 Clin Com 09/14/22 09/14/22 09/14/22 Range/Units 02:43 02:43 02:43 WBC (4.8-10.8) X10*3/uL RBC (4.60-5.80) X10*6/uL Hgb (14.0-18.0) g/dl Hct (42.0-52.0) % MCV (80.0-98.0) fL MCH (27.0-33.0) pg MCHC (31.0-36.0) g/dl RDW (11.0-16.0) % Plt Count (160-400) X10*3/uL MPV (9.4-12.4) fL Immature Gran % (Auto) (0.0-0.4) % Neut % (Auto) (45-73) % Lymph % (Auto) (20-40) % [place] % (Auto) (2-11) % Eos % (Auto) (0-4) % Baso % (Auto) (0-2) % Lymph # (Auto) (1.2-4.9) X10*3/uL [place] # (Auto) (0.1-1.2) X10*3/uL Eos # (Auto) (0.0-0.4) X10*3/uL Baso # (Auto) (0.0-0.2) X10*3/uL Abs Immat Gran (auto) (0.00-0.03) X10*3/uL Absolute Neuts (auto) (2.0-8.3) x10*3/uL Absolute Nucleated RBC (0.0-0.012) X10*3/uL Nucleated RBC % (auto) (0.0-0.2) /100WBC PT (10.0-13.1) SEC INR (0.9-1.1) VBG pH (7.32-7.43) VBG pCO2 mmHg VBG pO2 mmHg VBG HCO3 (22-26) mmol/L VBG O2 Saturation % VBG Base Excess mmol/L Sodium (135-145) mmol/L Potassium (3.3-5.1) mmol/L Chloride (96-108) mmol/L Carbon Dioxide (22-29) mmol/L Anion Gap (12-20) BUN (9-16) mg/dL Creatinine (0.5-1.4) mg/dL Estim Creat Clear Calc Estimated GFR Random Glucose (60-115) mg/dL Lactic Acid 1.7 (0.5-2.0) mmol/L Calcium (8.4-10.2) mg/dL Total Bilirubin (0.0-1.0) mg/dL AST (5-37) U/L ALT (0-40) U/L Alkaline Phosphatase (39-117) U/L Troponin I High Sens 33.1 D (<3.5-35.0) ng/L B-Natriuretic Peptide (<100) pg/mL Total Protein (6.5-8.0) g/dL Albumin (3.5-5.0) g/dL COVID-19 (DEBBIE) Positive A (Negative) COVID-19 Clin Com See Note 09/14/22 09/14/22 Range/Units 02:43 02:47 WBC (4.8-10.8) X10*3/uL RBC (4.60-5.80) X10*6/uL Hgb (14.0-18.0) g/dl Hct (42.0-52.0) % MCV (80.0-98.0) fL MCH (27.0-33.0) pg MCHC (31.0-36.0) g/dl RDW (11.0-16.0) % Plt Count (160-400) X10*3/uL MPV (9.4-12.4) fL Immature Gran % (Auto) (0.0-0.4) % Neut % (Auto) (45-73) % Lymph % (Auto) (20-40) % [place] % (Auto) (2-11) % Eos % (Auto) (0-4) % Baso % (Auto) (0-2) % Lymph # (Auto) (1.2-4.9) X10*3/uL [place] # (Auto) (0.1-1.2) X10*3/uL Eos # (Auto) (0.0-0.4) X10*3/uL Baso # (Auto) (0.0-0.2) X10*3/uL Abs Immat Gran (auto) (0.00-0.03) X10*3/uL Absolute Neuts (auto) (2.0-8.3) x10*3/uL Absolute Nucleated RBC (0.0-0.012) X10*3/uL Nucleated RBC % (auto) (0.0-0.2) /100WBC PT (10.0-13.1) SEC INR (0.9-1.1) VBG pH 7.27 L (7.32-7.43) VBG pCO2 41 mmHg VBG pO2 46 mmHg VBG HCO3 19 L (22-26) mmol/L VBG O2 Saturation 68.0 % VBG Base Excess -6.7 mmol/L Sodium (135-145) mmol/L Potassium (3.3-5.1) mmol/L Chloride (96-108) mmol/L Carbon Dioxide (22-29) mmol/L Anion Gap (12-20) BUN (9-16) mg/dL Creatinine (0.5-1.4) mg/dL Estim Creat Clear Calc Estimated GFR Random Glucose (60-115) mg/dL Lactic Acid (0.5-2.0) mmol/L Calcium (8.4-10.2) mg/dL Total Bilirubin (0.0-1.0) mg/dL AST (5-37) U/L ALT (0-40) U/L Alkaline Phosphatase (39-117) U/L Troponin I High Sens (<3.5-35.0) ng/L B-Natriuretic Peptide 1541 H (<100) pg/mL Total Protein (6.5-8.0) g/dL Albumin (3.5-5.0) g/dL COVID-19 (DEBBIE) (Negative) COVID-19 Clin Com Discharge Plan Discharge Clinical Impression: Acute hypoxemic respiratory failure due to COVID-19 Patient Disposition: Admitted As Inpatient
--- NOTE | 2022-09-14 02:30 | ECG_ITS ---
Test Reason : SOB Blood Pressure : / mmHG Vent. Rate : 131 BPM Atrial Rate : 000 BPM P-R Int : 000 ms QRS Dur : 140 ms QT Int : 350 ms P-R-T Axes : 000 194 028 degrees QTc Int : 516 ms Undetermined rhythm Possible Atrial tachycardia /atrial flutter Right bundle branch block Left posterior fascicular block Abnormal ECG When compared with ECG of 23-AUG-2022 10:39, Possible atrial tachycardia/flutter present Referred By: Harjit Gutierrez Electronically Signed By:KATHARINA PEREZ MD
[2022-09-14 02:52] LABS: Venous Blood Gas Refer to POC result
[2022-09-14 02:53] LABS: MANUAL DIFF FLAG NO
[2022-09-14 02:53] LABS: VBG Base Excess -6.7 mmol/L; VBG HCO3 19 mmol/L (22-26); VBG pCO2 41 mmHg; VBG pH 7.27 (7.32-7.43); VBG pO2 46 mmHg
[2022-09-14 02:54] LABS: Basophils Percent Auto 0.4 % (0-2); Eosinophils Absolute Auto 0.1 X10*3/uL (0.0-0.4); Eosinophils Percent Auto 2.3 % (0-4); Hematocrit 36.9 % (42.0-52.0); Hemoglobin 11.7 g/dl (14.0-18.0); Imm Gran Abs Auto 0.02 X10*3/uL (0.00-0.03); Imm Gran Pct Auto 0.4 % (0.0-0.4); Lymphocytes Absolute Auto 1.1 X10*3/uL (1.2-4.9); Mean Corpuscular HGB Conc 31.7 g/dl (31.0-36.0); Mean Corpuscular Hemoglobin 29.1 pg (27.0-33.0); Mean Corpuscular Volume 91.8 fL (80.0-98.0); Mean Platelet Volume 11.2 fL (9.4-12.4); Monocytes Absolute Auto 0.4 X10*3/uL (0.1-1.2); Neutrophils Absolute Auto 3.5 x10*3/uL (2.0-8.3); Neutrophils Percent Auto 67.9 % (45-73); Platelet Count 156 X10*3/uL (160-400); Red Blood Count 4.02 X10*6/uL (4.60-5.80); White Blood Count 5.2 X10*3/uL (4.8-10.8)
[2022-09-14] MEDS: dexAMETHasone 2 MG TABLET 10 MG PO (02:58)
[2022-09-14 03:00] LABS: COVID-19 Test Positive (Negative); IDNOW Serial# 9DB6401D; INTERNATIONAL NORM RATIO 1.5 (0.9-1.1); Prothrombin Time 17.4 SEC (10.0-13.1)
[2022-09-14] MEDS: Albuterol Sulfate 5 MG, Albuterol/Iprat 2.5/0.5MG 3 ML 3 ML INHALE (03:01)
[2022-09-14 03:13] LABS: Lactic Acid 1.7 mmol/L (0.5-2.0)
[2022-09-14 03:16] LABS: Alanine Aminotransferase 20 U/L (0-40); Albumin Level 4.1 g/dL (3.5-5.0); Alkaline Phosphatase 96 U/L (39-117); Anion Gap 12 (12-20); Aspartate Amino Transferase 26 U/L (5-37); Bilirubin Total 0.7 mg/dL (0.0-1.0); Blood Urea Nitrogen 25 mg/dL (9-16); Carbon Dioxide 24 mmol/L (22-29); Chloride 107 mmol/L (96-108); Creatinine Clr Calc Pharmacy 25.9; Estimated Glomerular Filt Rate 18; Glucose Random 183 mg/dL (60-115); Potassium 4.3 mmol/L (3.3-5.1); Sodium 139 mmol/L (135-145); Total Protein 6.9 g/dL (6.5-8.0)
[2022-09-14 03:22] LABS: Troponin-I High Sensitivity 33.1 ng/L (<3.5-35.0)
--- NOTE | 2022-09-14 03:49 | MHC.EDTECH ---
pt is sitting upright in bed, he can sit on side of bed to be comfortable, ekg was done and labs were drawn
[2022-09-14 04:19] LABS: B Type Natriuretic Peptide 1541 pg/mL (<100)
--- NOTE | 2022-09-14 04:58 | PC.NURSE ---
Pt. sitting up in bed as this is his preferred position of comfort. Pt. VS have stabilized from the tachycardia he displayed upon arrival. Pt. requesting more water. Provided pt. with a pitcher of water.
--- NOTE | 2022-09-14 06:06 | MHC.EDTECH ---
pt is resting , covid + a urinal was given for restroom no issues
--- NOTE | 2022-09-14 06:25 | PC.NURSE ---
Pt. awake, sitting up in bed. Pt. states that he feels 100% better since his arrival. Pt. refused the heparin injection. Pt. reports being unable to take any type of blood thinner as it causes excess bleeding and states that the last time he was given blood thinners, he began bleeding out of his nose .
--- NOTE | 2022-09-14 06:35 | PM.IMHP ---
History of Present Illness Date of Service: 09/14/22 Chief Complaint: sob 66-year-old male with past medical history of type 2 diabetes, HTN, CKD, carotid stenosis, COPD, LEONEL not on CPAP, diastolic CHF with preserved ejection fraction, presents to the hospital with complaints of shortness of breath, And orthopnea. Patient reports that he was discharge from the hospital on the 12 of this month after being managed for flu pneumonia. Patient was doing well until Two days ago where he started having shortness of breath, he tested himself at home and was positive for COVID. He reports that he went to bed at 21:00 with an oxygen in the 90s, woke up around 01:00 with significant shortness of breath checked his oximeter and showed O2 in the 80s. He has minimal cough, no sputum production, reports chronic lower extremity edema that he takes diuretics 4, reports no chest pain, no abdominal pain nausea vomiting, diarrhea constipation and no lower extremity edema. on arrival of EMS patient was found to be hypoxic with O2 in the 70s on arrival to the ED patient has a heart rate of 129, respiratory rate of 21, satting 91% on 4 L of nasal cannula Labs are significant for WBC count of 5.2, hemoglobin of 11.7, hematocrit 36.9, INR of 1.5, creatinine of 3.41 which is around his baseline, BNP of 1541, COVID-19 positive chest x-ray shows bilateral is peers opacities with a degree of improvement from the prior exam Review of Systems Review of Systems: Yes all other systems are reviewed and are negative [facility] Medical History CKD (chronic kidney disease) COPD (chronic obstructive pulmonary disease) COPD (chronic obstructive pulmonary disease) Diabetes mellitus Dyslipidemia Dyspnea on minimal exertion Hypertension Left ventricular hypertrophy Obesity LEONEL (obstructive sleep apnea) Smoker Smoking Family History Father No problems noted. Mother Diabetes Family/Other No problems noted. Surgical History No pertinent past surgical history Social History Alcohol intake: former Patient Tobacco Use Status: Current everyday Tobacco user Cigarettes Per Day: 5 Smoked in Last 30 Days: No Advance Directives: Yes Advance Directives on File: Yes Advance Directives Date on File: 08/23/22 service: No Current occupational status: disabled Meds Allergies Allergy/AdvReac Type Severity Reaction Status Date / Time aspirin AdvReac Unknown nose bleeds Verified 07/25/22 16:37 metformin AdvReac Unknown hypoglycemi Verified 07/25/22 16:37 a warfarin [From Coumadin] AdvReac Unknown Nose Bleed Verified 09/14/22 05:55 apixaban AdvReac Nose Bleed Verified 09/14/22 02:56 clopidogrel AdvReac Nose Bleed Verified 09/14/22 02:56 Active Medications: Current Medications Acetaminophen (Acetaminophen 325 Mg Tablet) 650 mg PO Q6H PRN PRN Reason: Pain, Mild (Pain Scale 1-3) Albuterol/Ipratropium (Albuterol/Iprat 2.5/0.5mg 3 Ml Ampul.Neb) 3 ml INHALE RQ4H PRN PRN Reason: Shortness of Breath/Wheezing Albuterol/Ipratropium (Albuterol/Iprat 2.5/0.5mg 3 Ml Ampul.Neb) 3 ml INHALE RQ4H WHILE AWAKE [facility] Dexamethasone Sodium Phosphate (Dexamethasone Sod Phosphate 4 Mg/Ml Vial) 6 mg IVPUSH DAILY [facility] Docusate Sodium (Docusate Sodium 100 Mg Capsule) 100 mg PO DAILY PRN PRN Reason: Constipation Heparin Sodium (Porcine) (Heparin Sodium,Porcine 5,000 Unit/Ml Vial) 5,000 unit SUBCUT Q12H [facility] Last Admin: 09/14/22 06:24 Dose: Not Given Ondansetron HCl (Ondansetron Hcl 4 Mg/2 Ml Vial) 4 mg IVPUSH Q8H PRN PRN Reason: Nausea and Vomiting Sodium Chloride (0.9 % Sodium Chloride Flush 3 Ml Syringe) 3 ml IVFLUSH QSHIFT [facility] Home Medications Medication Instructions Recorded Confirmed Last Taken Type cholecalciferol (vitamin D3) 25 25 mcg PO Q48H 06/22/20 09/14/22 Unknown History mcg (1,000 unit) capsule cinacalcet 30 mg tablet 30 mg PO DAILY 06/22/20 09/14/22 Unknown History clonidine HCl 0.3 mg tablet 0.3 mg PO TID 06/22/20 09/14/22 Unknown History glimepiride 1 mg tablet 1 mg PO DAILY 06/22/20 09/14/22 Unknown History simvastatin 20 mg tablet 20 mg PO QPM 06/22/20 09/14/22 Unknown History sitagliptin phosphate 50 mg tablet 50 mg PO DAILY 06/22/20 09/14/22 Unknown History (Saadia) zolpidem 10 mg tablet 10 mg PO BEDTIME PRN Sleep 06/22/20 09/14/22 Unknown History blood-glucose meter (FreeStyle #1 ea 11/07/20 09/14/22 Unknown History Lite Meter kit) lancets 28 gauge (FreeStyle #100 ea 11/07/20 09/14/22 Unknown History Lancets) hydralazine 100 mg tablet 100 mg PO TID 02/14/22 09/14/22 08/23/22 08:00 History losartan 100 mg tablet 100 mg PO DAILY 02/14/22 09/14/22 08/23/22 08:00 History oxycodone-acetaminophen 5 mg-325 1 tab PO Q8H PRN Pain 02/14/22 09/14/22 Unknown History mg tablet labetalol 200 mg tablet 400 mg PO BID 05/21/22 09/14/22 08/23/22 08:00 History budesonide-formoterol HFA 160 2 puff inhalation BID 07/25/22 09/14/22 Unknown History mcg-4.5 mcg/actuation aerosol inhaler (Symbicort) lidocaine 5 % topical patch 1 patch topical DAILY 08/23/22 09/14/22 Unknown History bumetanide 0.5 mg tablet 1 tab PO DAILY 09/14/22 09/14/22 Unknown History Physical Exam Vital Signs and Narrative: Vital Signs: Last Vital Signs Temp 98.4 F 09/14/22 06:05 Pulse 88 09/14/22 06:05 Resp 16 09/14/22 06:05 BP 155/84 H 09/14/22 06:05 Pulse Ox 97 09/14/22 06:05 O2 Del Method 09/14/22 06:05 O2 Flow Rate 3 09/14/22 06:05 Oxygen Flow Rate 4 09/14/22 02:31 BMI result Body Mass Index 35.7 Const: General: cooperative and no acute distress Orientation/consciousness: patient oriented x3 Eyes: General: appearance normal, both eyes and all related structures Resp: Other: bilateral crackles Effort & Inspection: normal respiratory effort Cardio: Rate: regular rate Rhythm: regular rhythm GI: Palpation (GI): Soft to palpation Auscultation: normal bowel sounds Skin: General skin exam: no rashes or lesions noted Neuro: General: patient oriented x3 Cognition (Neuro): normal cognition Extrem: Other: left lower extremity 2+ edema General: Yes normal to inspection Results Labs CBC and Chem 7: 09/14/22 02:43 09/14/22 02:43 Labs: Laboratory Results - last 24 hr 09/14/22 09/14/22 09/14/22 02:43 02:43 02:43 MCV 91.8 MCH 29.1 MCHC 31.7 RDW 13.0 Plt Count 156 L MPV 11.2 Immature Gran % (Auto) 0.4 Neut % (Auto) 67.9 Lymph % (Auto) 21.0 [place] % (Auto) 8.0 Eos % (Auto) 2.3 Baso % (Auto) 0.4 Lymph # (Auto) 1.1 L [place] # (Auto) 0.4 Eos # (Auto) 0.1 Baso # (Auto) 0.0 Abs Immat Gran (auto) 0.02 Absolute Neuts (auto) 3.5 Absolute Nucleated RBC 0.000 Nucleated RBC % (auto) 0.0 PT 17.4 H INR 1.5 H VBG pH VBG pCO2 VBG pO2 VBG HCO3 VBG O2 Saturation VBG Base Excess Anion Gap 12 Estim Creat Clear Calc 25.9 Estimated GFR 18 Random Glucose 183 H Lactic Acid Calcium 8.0 L Total Bilirubin 0.7 AST 26 ALT 20 Alkaline Phosphatase 96 Troponin I High Sens B-Natriuretic Peptide Total Protein 6.9 Albumin 4.1 COVID-19 (DEBBIE) COVID-19 Clin Com 09/14/22 09/14/22 09/14/22 02:43 02:43 02:43 MCV MCH MCHC RDW Plt Count MPV Immature Gran % (Auto) Neut % (Auto) Lymph % (Auto) [place] % (Auto) Eos % (Auto) Baso % (Auto) Lymph # (Auto) [place] # (Auto) Eos # (Auto) Baso # (Auto) Abs Immat Gran (auto) Absolute Neuts (auto) Absolute Nucleated RBC Nucleated RBC % (auto) PT INR VBG pH VBG pCO2 VBG pO2 VBG HCO3 VBG O2 Saturation VBG Base Excess Anion Gap Estim Creat Clear Calc Estimated GFR Random Glucose Lactic Acid 1.7 Calcium Total Bilirubin AST ALT Alkaline Phosphatase Troponin I High Sens 33.1 D B-Natriuretic Peptide Total Protein Albumin COVID-19 (DEBBIE) Positive A COVID-19 Clin Com See Note 09/14/22 09/14/22 02:43 02:47 MCV MCH MCHC RDW Plt Count MPV Immature Gran % (Auto) Neut % (Auto) Lymph % (Auto) [place] % (Auto) Eos % (Auto) Baso % (Auto) Lymph # (Auto) [place] # (Auto) Eos # (Auto) Baso # (Auto) Abs Immat Gran (auto) Absolute Neuts (auto) Absolute Nucleated RBC Nucleated RBC % (auto) PT INR VBG pH 7.27 L VBG pCO2 41 VBG pO2 46 VBG HCO3 19 L VBG O2 Saturation 68.0 VBG Base Excess -6.7 Anion Gap Estim Creat Clear Calc Estimated GFR Random Glucose Lactic Acid Calcium Total Bilirubin AST ALT Alkaline Phosphatase Troponin I High Sens B-Natriuretic Peptide 1541 H Total Protein Albumin COVID-19 (DEBBIE) COVID-19 Clin Com Imaging Radiologist's Impressions: Impressions Chest X-Ray 09/14/22 03:25 IMPRESSION: Bilateral airspace opacities show a degree of improvement from the prior exam. Assessment and Plan (1) Acute hypoxemic respiratory failure due to COVID-19: Status: Acute (2) Acute exacerbation of CHF (congestive heart failure): Status: Acute (3) Lower extremity edema: Status: Acute (4) Elevated brain natriuretic peptide (BNP) level: Status: Acute Plan 66-year-old male with mention past medical history on Bumex for diastolic heart failure with preserved ejection fraction presents to the hospital with complaints of shortness of breath orthopnea and PND found to be COVID 19 positive # acute hypoxic respiratory failure - likely multifactorial in the setting of COVID-19 infection as well as CHF, PE cannot be ruled out given recent hospitalization - will treat with IV Bumex, Decadron, breathing treatments, - continue oxygen as required( does not use oxygen at [id number]) - monitor respiratory status # COVID-19 fax - with recent flu pneumonia - chest x-ray shows improved infiltrate - Decadron daily # acute CHF exacerbation - history of diastolic CHF with preserved ejection fraction - has elevated BNP - on Bumex daily - will switch to IV Bumex - strict I&O, low-sodium diet, daily weight - cardiology consult - echo cardio # lower extremity edema - worse on the left - likely secondary to CHF but given his recent hospitalization will obtain venous to to rule out DVT # CKD - stable - follow BMP # diabetes - low-dose sliding scale insulin - diabetic diet # hypertension - stable - continue antihypertensives DVT prophylaxis: Heparin subQ given patient's hypoxia patient required [facility] inpatient hospital stay for further management and monitoring Time Spent With Patient Time: Total time managing care of this patient today ____ minutes. Quality Stroke Does the patient have a stroke diagnosis?: No VTE Prior VTE?: No VTE Risk Level:: Medical - moderate - high VTE Device Contraindication: Treatment Not Indicated VTE Drug Contraindication: N/A - Med Ordered
[2022-09-14 06:48] LABS: Basophils Percent Auto 0.3 % (0-2); Eosinophils Percent Auto 0.2 % (0-4); Hematocrit 32.4 % (42.0-52.0); Hemoglobin 10.2 g/dl (14.0-18.0); Imm Gran Abs Auto 0.02 X10*3/uL (0.00-0.03); Imm Gran Pct Auto 0.3 % (0.0-0.4); Lymphocytes Absolute Auto 0.3 X10*3/uL (1.2-4.9); Lymphocytes Percent Auto 5.2 % (20-40); MANUAL DIFF FLAG SCAN; Mean Corpuscular HGB Conc 31.5 g/dl (31.0-36.0); Mean Corpuscular Hemoglobin 28.3 pg (27.0-33.0); Mean Corpuscular Volume 89.8 fL (80.0-98.0); Mean Platelet Volume 11.3 fL (9.4-12.4); Monocytes Absolute Auto 0.2 X10*3/uL (0.1-1.2); Monocytes Percent Auto 3.5 % (2-11); Neutrophils Absolute Auto 5.4 x10*3/uL (2.0-8.3); Neutrophils Percent Auto 90.5 % (45-73); Platelet Count 146 X10*3/uL (160-400); Red Blood Count 3.61 X10*6/uL (4.60-5.80); Red Cell Distribution Width 12.9 % (11.0-16.0); SCAN SMEAR FLAG 1
[2022-09-14 07:02] LABS: Anion Gap 15 (12-20); Blood Urea Nitrogen 26 mg/dL (9-16); Calcium 8.1 mg/dL (8.4-10.2); Carbon Dioxide 22 mmol/L (22-29); Chloride 106 mmol/L (96-108); Creatinine Clr Calc Pharmacy 26.2; Estimated Glomerular Filt Rate 19; Glucose Random 184 mg/dL (60-115); Potassium 4.5 mmol/L (3.3-5.1); Sodium 138 mmol/L (135-145)
[2022-09-14 07:15] LABS: Glucose, Whole Blood 189 mg/dL (60-115)
[2022-09-14 07:28] LABS: SLIDE REVIEW VERIFIED
[2022-09-14] MEDS: Insulin Lispro 100 UNIT/ML 3 ML VIAL SUBCUT ×4 (08:15→20:58)
[2022-09-14] MEDS: Bumetanide 1 MG/4 ML VIAL 2 MG IVPUSH ×2 (08:16→10:11)
--- NOTE | 2022-09-14 08:18 | PC.NURSE ---
unlabored at rest sitting at beddside. pitting edema BLE left worse than right. nc titrated down to 2l. u/s at bedside. pt is eager to get to room upstairs. able to void w/o assistance. LS dimthroughout.
--- NOTE | 2022-09-14 08:19 | PHA.MEDREC ---
Pharmacy Consult ? Medication Reconciliation Pharmacy has completed the medication reconciliation.
--- NOTE | 2022-09-14 09:51 | PC.NURSE ---
telephone update to .
[2022-09-14] MEDS: dexAMETHasone sod phosphate 4 MG/ML VIAL 6 MG IVPUSH (10:11)
[2022-09-14] MEDS: cloNIDine HCL 0.1 MG TABLET 0.3 MG PO ×3 (10:12→20:57)
[2022-09-14] MEDS: hydrALAZINE HCl 50 MG TABLET 100 MG PO ×3 (10:12→20:57)
[2022-09-14] MEDS: Cholecalciferol (Vitamin D3) 25 MCG TABLET PO (10:12)
[2022-09-14] MEDS: Losartan Potassium 50 MG TABLET 100 MG PO (10:12)
[2022-09-14] MEDS: Labetalol HCL 200 MG TABLET 400 MG PO ×2 (10:12→20:56)
[2022-09-14] MEDS: Cinacalcet HCl 30 MG TABLET PO (10:54)
[2022-09-14] MEDS: SITagliptin Phosphate 50 MG TABLET PO (10:54)
[2022-09-14] MEDS: Albuterol Sulfate 90 MCG 8 GM INHALER 4 PUFF INHALE ×3 (11:43→20:43)
[2022-09-14 12:29] LABS: Glucose, Whole Blood 272 mg/dL (60-115)
--- NOTE | 2022-09-14 13:12 | PM.EVENT ---
Event Note Date of Service: 09/14/22 Event Note: Patient seems to be doing better since admission Weaned off oxygen Stable kidney function Cardiology input appreciated , continue diuresis Not a candidate for Jardiance with advanced kidney disease Monitor intake and output Time Spent With Patient Time: Total time managing care of this patient today ____ minutes.
--- NOTE | 2022-09-14 13:21 | MHC.CM.PN ---
CM spoke with Patient over the phone at [phone] (Covid positive) and addressed IMM with him. Patient lives in a bungalow with his and he required no services nor DME [employer]. Home self care is the goal and CM has initiated and will follow for dc planning. Patient has received Moderna/Covid vax x4 and his PCP is Dr. Ayaka Salgado.
--- NOTE | 2022-09-14 14:06 | PM.CNCAR ---
History of Present Illness History of Present Illness Date of Service: 09/14/22 Requesting physician: Shu Taveras Consult reason: congestive heart failure Chief complaint: COVID 19 PNA, hypoxia Narrative: I was consulted to see Domenica in cardiology consultation today for acute respiratory failure with hypoxemia. Patient 66-year-old male with prior history of significant LVH by echocardiogram from April 2022 with moderately dilated left atrium with LVEF of 50-55% with prior history of hypertension, advanced kidney disease, diabetes, carotid disease, COPD, sleep apnea. There is no obvious diagnosis of heart failure. Early August he was admitted with influenza related viral pneumonia. Was treated in the hospital for few days and then released. Since then he had doing well of till recently started noticing increasing shortness of breath and last night was very short of breath even laying in bed. He has had long-term issues with bilateral leg edema and his diuretic dose has been adjusted due to his renal dysfunction. He noticed that his leg swelling was increasing with abdominal distension. He did not report any clear weight gain. Came to the hospital was noted to have significantly elevated BNP and chest x-ray finding consistent with congestive heart failure with possible bilateral infiltrates. He was diuresed and since yesterday he said he feels a lot better. Oxygenation is improved. He is currently receiving Bumex 1 mg b.i.d.. Negative balance started of 1400 cc. BNP of 1541 Review of Systems Constitutional: Constitutional: Reports no additional constitutional complaints Eyes: Eyes: Reports no additional eye complaints Cardiovascular: Cardiovascular: Reports Abdominal Distension, Denies chest pain, Reports leg edema, Denies lightheadedness, Denies Loss of Consciousness, Denies palpitations, Reports dyspnea on exertion and Reports orthopnea Respiratory: Respiratory: Reports no additional respiratory complaints and Reports dyspnea on exertion Gastrointestinal: Gastrointestinal: Reports no additional gastrointestinal complaints Genitourinary: Genitourinary: Reports no additional male genitourinary complaints Neurologic: Reports system reviewed and no additional complaints, except as documented Psychiatric: Psychiatric: Reports no additional psychiatric complaints Endocrine: Endocrine: Reports no additional endocrine complaints and Denies palpitations Hematologic/Lymphatic: Hematologic/Lymphatic: Reports no additional hematologic/lymphatic complaints PMF Past Medical History Medical History CKD (chronic kidney disease) COPD (chronic obstructive pulmonary disease) COPD (chronic obstructive pulmonary disease) Diabetes mellitus Dyslipidemia Dyspnea on minimal exertion Hypertension Left ventricular hypertrophy Obesity LEONEL (obstructive sleep apnea) Smoker Smoking Family History Family History Father No problems noted. Mother Diabetes Family/Other No problems noted. Surgical History Surgical History No pertinent past surgical history Social History Social History Alcohol intake: former Patient Tobacco Use Status: Current everyday Tobacco user Cigarettes Per Day: 5 Smoked in Last 30 Days: No Advance Directives: Yes Advance Directives on File: Yes Advance Directives Date on File: 08/23/22 service: No Current occupational status: disabled Meds Allergies Allergy/AdvReac Type Severity Reaction Status Date / Time aspirin AdvReac Unknown nose bleeds Verified 07/25/22 16:37 metformin AdvReac Unknown hypoglycemi Verified 07/25/22 16:37 a warfarin [From Coumadin] AdvReac Unknown Nose Bleed Verified 09/14/22 05:55 apixaban AdvReac Nose Bleed Verified 09/14/22 02:56 clopidogrel AdvReac Nose Bleed Verified 09/14/22 02:56 Active Medications: Current Medications Acetaminophen (Acetaminophen 325 Mg Tablet) 650 mg PO Q6H PRN PRN Reason: Pain, Mild (Pain Scale 1-3) Albuterol Sulfate (Albuterol Sulfate 90 Mcg 8 Gm Inhaler) 4 puff INHALE RQ4H WHILE AWAKE [facility] Last Admin: 09/14/22 11:43 Dose: 4 puff Albuterol/Ipratropium (Albuterol/Iprat 2.5/0.5mg 3 Ml Ampul.Neb) 3 ml INHALE RQ4H PRN PRN Reason: Shortness of Breath/Wheezing Atorvastatin Calcium (Atorvastatin Calcium 10 Mg Tablet) 10 mg PO BEDTIME [facility] Bumetanide (Bumetanide 1 Mg/4 Ml Vial) 1 mg IVPUSH BID@0900,1700 [facility]; Protocol Cinacalcet (Cinacalcet Hcl 30 Mg Tablet) 30 mg PO DAILY [facility] Last Admin: 09/14/22 10:54 Dose: 30 mg Clonidine HCl (Clonidine Hcl 0.1 Mg Tablet) 0.3 mg PO TID [facility]; Protocol Last Admin: 09/14/22 10:12 Dose: 0.3 mg Dexamethasone Sodium Phosphate (Dexamethasone Sod Phosphate 4 Mg/Ml Vial) 6 mg IVPUSH DAILY [facility] Last Admin: 09/14/22 10:11 Dose: 6 mg Dextrose (Dextrose 50 % 25 Gm/50 Ml Syringe) 25 gm IVPUSH Q15M PRN; Protocol PRN Reason: per Hypoglycemia Standing Ord. Docusate Sodium (Docusate Sodium 100 Mg Capsule) 100 mg PO DAILY PRN PRN Reason: Constipation Fluticasone/Vilanterol (Fluticasone/Vilanterol 200/25 Blst.W.Dev) 1 puff INHALE RDAILY [facility] Glucose (Glucose Gel 15 Gm Gel..Gram.) 15 gm PO Q15M PRN; Protocol PRN Reason: per Hypoglycemia Standing Ord. Heparin Sodium (Porcine) (Heparin Sodium,Porcine 5,000 Unit/Ml Vial) 5,000 unit SUBCUT Q12H [facility] Last Admin: 09/14/22 06:24 Dose: Not Given Hydralazine HCl (Hydralazine Hcl 50 Mg Tablet) 100 mg PO TID [facility]; Protocol Last Admin: 09/14/22 10:12 Dose: 100 mg Insulin Human Lispro (Insulin Lispro 100 Unit/Ml 3 Ml Vial) 0 unit SUBCUT QIDACHS [facility]; Protocol Last Admin: 09/14/22 13:57 Dose: 6 unit Labetalol HCl (Labetalol Hcl 200 Mg Tablet) 400 mg PO BID [facility]; Protocol Last Admin: 09/14/22 10:12 Dose: 400 mg Lidocaine (Lidocaine 4 % Patch Adh..Patch) 1 patch TRANSDERMA DAILY [facility] Last Admin: 09/14/22 10:13 Dose: Not Given Losartan Potassium (Losartan Potassium 50 Mg Tablet) 100 mg PO DAILY [facility]; Protocol Last Admin: 09/14/22 10:12 Dose: 100 mg Ondansetron HCl (Ondansetron Hcl 4 Mg/2 Ml Vial) 4 mg IVPUSH Q8H PRN PRN Reason: Nausea and Vomiting Oxycodone HCl (Oxycodone Hcl Immed Release 5 Mg Tablet) 5 mg PO Q8H PRN PRN Reason: Pain, Moderate (Pain Scale 4-6 Sodium Chloride (0.9 % Sodium Chloride Flush 3 Ml Syringe) 3 ml IVFLUSH QSHIFT [facility] Last Admin: 09/14/22 08:16 Dose: Not Given Vitamin D (Cholecalciferol (Vitamin D3) 25 Mcg Tablet) 25 mcg PO Q48H [facility] Last Admin: 09/14/22 10:12 Dose: 25 mcg Zolpidem Tartrate (Zolpidem Tartrate 5 Mg Tablet) 5 mg PO BEDTIME PRN PRN Reason: Sleep Home Medications Medication Instructions Recorded Confirmed Last Taken Type cholecalciferol (vitamin D3) 25 25 mcg PO Q48H 06/22/20 09/14/22 09/13/22 History mcg (1,000 unit) capsule cinacalcet 30 mg tablet 30 mg PO DAILY 06/22/20 09/14/22 09/13/22 History clonidine HCl 0.3 mg tablet 0.3 mg PO TID 06/22/20 09/14/22 09/13/22 History glimepiride 1 mg tablet 1 mg PO DAILY 06/22/20 09/14/22 09/13/22 History simvastatin 20 mg tablet 20 mg PO BEDTIME 06/22/20 09/14/22 09/13/22 History sitagliptin phosphate 50 mg tablet 50 mg PO DAILY 06/22/20 09/14/22 09/13/22 History (Januvia) zolpidem 10 mg tablet 10 mg PO BEDTIME PRN Sleep 06/22/20 09/14/22 Unknown History blood-glucose meter (FreeStyle #1 ea 11/07/20 09/14/22 Unknown History Lite Meter kit) lancets 28 gauge (FreeStyle #100 ea 11/07/20 09/14/22 Unknown History Lancets) hydralazine 100 mg tablet 100 mg PO TID 02/14/22 09/14/22 09/13/22 History losartan 100 mg tablet 100 mg PO DAILY 02/14/22 09/14/22 09/13/22 History oxycodone-acetaminophen 5 mg-325 1 tab PO Q8H PRN Pain 02/14/22 09/14/22 Unknown History mg tablet labetalol 200 mg tablet 400 mg PO BID 05/21/22 09/14/22 09/13/22 History budesonide-formoterol HFA 160 2 puff inhalation BID 07/25/22 09/14/22 09/13/22 History mcg-4.5 mcg/actuation aerosol inhaler (Symbicort) lidocaine 5 % topical patch 1 patch topical DAILY 08/23/22 09/14/22 09/13/22 History acetaminophen 325 mg tablet 650 mg PO Q6H PRN Pain 09/14/22 09/14/22 Unknown History (Tylenol) bumetanide 0.5 mg tablet 1 tab PO DAILY 09/14/22 09/14/22 09/13/22 History guaifenesin 600 mg tablet, 1,200 mg PO BID PRN Congestion 09/14/22 09/14/22 Unknown History extended release 12 hr Physical Exam Vital Signs: Vital Signs: Last Vital Signs Temp 98.9 F 09/14/22 10:17 Pulse 80 09/14/22 11:52 Resp 20 09/14/22 11:52 BP 141/89 H 09/14/22 11:52 Pulse Ox 96 09/14/22 11:52 O2 Del Method 09/14/22 11:52 O2 Flow Rate 3 09/14/22 06:05 Oxygen Flow Rate 4 09/14/22 02:31 BMI result Body Mass Index 35.7 Const: General: cooperative, comfortable, alert, awake and in distress mild and respiratory Nutritional Appearance: obese Orientation/consciousness: patient oriented x3 Limitations: no limitations HEENT: Head: Yes normocephalic and Yes atraumatic Neck: Neck: Yes trachea midline, Yes supple and Yes JVD Chest: Chest palpation & inspection: normal inspection of the chest Cardio: Jugular venous distension: no JVD Palpation: normal PMI Rate: regular rate Rhythm: regular rhythm Heart sounds: S1 normal heart sound present, S2 normal heart sound present, no click, Gallop heart sound present, no murmurs and no rubs GI: Inspection: Yes obesity Auscultation: normal bowel sounds Skin: General skin exam: no rashes or lesions noted Neuro: General: patient oriented x3 and no focal motor deficits Extrem: General: No clubbing, No cyanosis and Yes edema Psych: Appearance: grossly normal Objective Labs and Meds Result diagrams: 09/14/22 06:15 09/14/22 06:15 Lab results: Laboratory Results - last 24 hr 09/14/22 09/14/22 09/14/22 02:43 02:43 02:43 WBC 5.2 RBC 4.02 L Hgb 11.7 L Hct 36.9 L MCV 91.8 MCH 29.1 MCHC 31.7 RDW 13.0 Plt Count 156 L MPV 11.2 Immature Gran % (Auto) 0.4 Neut % (Auto) 67.9 Lymph % (Auto) 21.0 [place] % (Auto) 8.0 Eos % (Auto) 2.3 Baso % (Auto) 0.4 Lymph # (Auto) 1.1 L [place] # (Auto) 0.4 Eos # (Auto) 0.1 Baso # (Auto) 0.0 Abs Immat Gran (auto) 0.02 Absolute Neuts (auto) 3.5 Absolute Nucleated RBC 0.000 Nucleated RBC % (auto) 0.0 Smear Tech's Comments PT 17.4 H INR 1.5 H VBG pH VBG pCO2 VBG pO2 VBG HCO3 VBG O2 Saturation VBG Base Excess Sodium 139 Potassium 4.3 Chloride 107 Carbon Dioxide 24 Anion Gap 12 BUN 25 H Creatinine 3.41 H Estim Creat Clear Calc 25.9 Estimated GFR 18 POC Glucose Random Glucose 183 H Lactic Acid Calcium 8.0 L Total Bilirubin 0.7 AST 26 ALT 20 Alkaline Phosphatase 96 Troponin I High Sens B-Natriuretic Peptide Total Protein 6.9 Albumin 4.1 COVID-19 (DEBBIE) COVIDNimble 09/14/22 09/14/22 09/14/22 02:43 02:43 02:43 WBC RBC Hgb Hct MCV MCH MCHC RDW Plt Count MPV Immature Gran % (Auto) Neut % (Auto) Lymph % (Auto) [place] % (Auto) Eos % (Auto) Baso % (Auto) Lymph # (Auto) [place] # (Auto) Eos # (Auto) Baso # (Auto) Abs Immat Gran (auto) Absolute Neuts (auto) Absolute Nucleated RBC Nucleated RBC % (auto) Smear Tech's Comments PT INR VBG pH VBG pCO2 VBG pO2 VBG HCO3 VBG O2 Saturation VBG Base Excess Sodium Potassium Chloride Carbon Dioxide Anion Gap BUN Creatinine Estim Creat Clear Calc Estimated GFR POC Glucose Random Glucose Lactic Acid 1.7 Calcium Total Bilirubin AST ALT Alkaline Phosphatase Troponin I High Sens 33.1 D B-Natriuretic Peptide Total Protein Albumin COVID-19 (DEBBIE) Positive A Extra [facility] See Note 09/14/22 09/14/22 09/14/22 02:43 02:47 06:15 WBC 6.0 RBC 3.61 L Hgb 10.2 L Hct 32.4 L MCV 89.8 MCH 28.3 MCHC 31.5 RDW 12.9 Plt Count 146 L MPV 11.3 Immature Gran % (Auto) 0.3 Neut % (Auto) 90.5 H Lymph % (Auto) 5.2 L [place] % (Auto) 3.5 Eos % (Auto) 0.2 Baso % (Auto) 0.3 Lymph # (Auto) 0.3 L [place] # (Auto) 0.2 Eos # (Auto) 0.0 Baso # (Auto) 0.0 Abs Immat Gran (auto) 0.02 Absolute Neuts (auto) 5.4 Absolute Nucleated RBC 0.000 Nucleated RBC % (auto) 0.0 Smear Tech's Comments VERIFIED PT INR VBG pH 7.27 L VBG pCO2 41 VBG pO2 46 VBG HCO3 19 L VBG O2 Saturation 68.0 VBG Base Excess -6.7 Sodium Potassium Chloride Carbon Dioxide Anion Gap BUN Creatinine Estim Creat Clear Calc Estimated GFR POC Glucose Random Glucose Lactic Acid Calcium Total Bilirubin AST ALT Alkaline Phosphatase Troponin I High Sens B-Natriuretic Peptide 1541 H Total Protein Albumin COVID-19 (DEBBIE) COVID-[employer] 09/14/22 09/14/22 09/14/22 06:15 07:05 12:26 WBC RBC Hgb Hct MCV MCH MCHC RDW Plt Count MPV Immature Gran % (Auto) Neut % (Auto) Lymph % (Auto) [place] % (Auto) Eos % (Auto) Baso % (Auto) Lymph # (Auto) [place] # (Auto) Eos # (Auto) Baso # (Auto) Abs Immat Gran (auto) Absolute Neuts (auto) Absolute Nucleated RBC Nucleated RBC % (auto) Smear Tech's Comments PT INR VBG pH VBG pCO2 VBG pO2 VBG HCO3 VBG O2 Saturation VBG Base Excess Sodium 138 Potassium 4.5 Chloride 106 Carbon Dioxide 22 Anion Gap 15 BUN 26 H Creatinine 3.37 H Estim Creat Clear Calc 26.2 Estimated GFR 19 POC Glucose 189 H 272 H Random Glucose 184 H Lactic Acid Calcium 8.1 L Total Bilirubin AST ALT Alkaline Phosphatase Troponin I High Sens B-Natriuretic Peptide Total Protein Albumin COVID-19 (DEBBIE) COVID-19 Clin Com Imaging Radiologist's impression: Impressions Chest X-Ray 09/14/22 03:25 IMPRESSION: Bilateral airspace opacities show a degree of improvement from the prior exam. Venous Duplex 09/14/22 08:31 IMPRESSION: No acute DVT demonstrated in the left lower extremity. Assessment and Plan (1) Acute exacerbation of CHF (congestive heart failure): Status: Acute Patient presents with symptoms and signs suggestive of decompensated congestive heart failure with may be superimposed viral pneumonia related to COVID. This is unclear. Her clinically has responded very well to diuretic regimen. Feeling much better. BNP level of 1541. He is currently responding to Bumex 1 mg IV b.i.d.. He has multiple comorbidities including advanced LVH, vascular disease, diabetes with advanced kidney disease as well as COPD. He also has had difficult to control blood pressure seems like the blood pressure is still marginally elevated. Given his advanced renal dysfunction not a great candidate for Aldactone therapy as well as Jardiance therapy for his heart failure. He will require ischemic workup given his multiple risk factors, will be pursued as outpatient. Continue Bumex IV b.i.d.. Strict intake and output chart needs to be pursued. Given his tenuous kidney function as well as recurrent heart failure syndrome I think he would be a good candidate for CardioMEMS device as an outpatient. This was discussed with him. He is currently reluctant which is understandable. Continue aggressive control his blood pressure with current medications. Consider adding amlodipine 2.5 mg to his regimen for blood pressure control in addition to his other medications. Will continue to follow with you Time Spent With Patient Time: Total time managing care of this patient today ____ minutes. Procedures Date of Service Date of Service: 09/14/22
--- NOTE | 2022-09-14 14:46 | PC.NURSE ---
unlabored resp at rest in bed. has been in sinus rythm since this am.
[2022-09-14] MEDS: 0.9 % Sodium Chloride Flush 3 ML SYRINGE IVFLUSH ×2 (15:06→20:59)
--- NOTE | 2022-09-14 15:12 | PC.NURSE ---
report received from RACHELLE Kaufman. Pt resting comfortably on stretcher, respirations are even and unlabored. VSS at this time. Refilled pt water and gave him new pillow. Awaiting bed assignment
[2022-09-14 16:23] LABS: Glucose, Whole Blood 340 mg/dL (60-115)
[2022-09-14] MEDS: Bumetanide 1 MG/4 ML VIAL IVPUSH (16:37)
[2022-09-14 19:48] LABS: Glucose, Whole Blood 248 mg/dL (60-115)
[2022-09-14] MEDS: Atorvastatin Calcium 10 MG TABLET PO (20:56)
[2022-09-14] MEDS: Zolpidem Tartrate 5 MG TABLET PO (23:21)
[2022-09-15] VITALS (9 sets, daily range): BP systolic 135–173; BP diastolic 78–90; PULSE 63–80; RESP 18–20; TEMP 36.3–36.7; O2SAT 95–98
[2022-09-15 07:23] LABS: Anion Gap 14 (12-20); Blood Urea Nitrogen 44 mg/dL (9-16); Calcium 8.2 mg/dL (8.4-10.2); Carbon Dioxide 22 mmol/L (22-29); Chloride 104 mmol/L (96-108); Creatinine Clr Calc Pharmacy 24.6; Estimated Glomerular Filt Rate 17; Glucose Random 171 mg/dL (60-115); Potassium 4.2 mmol/L (3.3-5.1); Sodium 136 mmol/L (135-145)
[2022-09-15 07:24] LABS: B Type Natriuretic Peptide 1763 pg/mL (<100)
[2022-09-15] MEDS: Fluticasone/Vilanterol 200/25 BLST.W.DEV 1 PUFF INHALE (07:59)
[2022-09-15] MEDS: Albuterol Sulfate 90 MCG 8 GM INHALER 4 PUFF INHALE ×3 (07:59→19:07)
--- NOTE | 2022-09-15 09:34 | MHC.CM.PN ---
pt dcd home no skilled services ordered by
[2022-09-15 09:47] LABS: Glucose, Whole Blood 186 mg/dL (60-115)
[2022-09-15] MEDS: Insulin Lispro 100 UNIT/ML 3 ML VIAL SUBCUT ×4 (09:50→20:18)
[2022-09-15] MEDS: 0.9 % Sodium Chloride Flush 3 ML SYRINGE IVFLUSH ×3 (09:50→20:20)
[2022-09-15] MEDS: Labetalol HCL 200 MG TABLET 400 MG PO ×2 (09:50→20:19)
[2022-09-15] MEDS: Cinacalcet HCl 30 MG TABLET PO (09:50)
[2022-09-15] MEDS: Losartan Potassium 50 MG TABLET 100 MG PO (09:50)
[2022-09-15] MEDS: hydrALAZINE HCl 50 MG TABLET 100 MG PO ×3 (09:50→20:19)
[2022-09-15] MEDS: amLODIPine Besylate 2.5 MG TABLET PO (09:50)
[2022-09-15] MEDS: dexAMETHasone sod phosphate 4 MG/ML VIAL 6 MG IVPUSH (09:51)
[2022-09-15] MEDS: cloNIDine HCL 0.1 MG TABLET 0.3 MG PO ×3 (09:51→20:19)
[2022-09-15] MEDS: Bumetanide 1 MG/4 ML VIAL IVPUSH ×2 (09:52→17:18)
--- NOTE | 2022-09-15 11:03 | PM.DS ---
DS: Providers Provider Date of Service: 09/16/22 Date of admission: 09/14/22 05:44 Primary care physician: Ayaka Salgado MD Consults: 09/14/22 06:35 Consult to Cardiology Routine Consulting Provider: Bartolo Anand Reason for consultation: CHF Has provider been notified: No DS: Diagnosis Discharge Diagnosis (1) Acute exacerbation of CHF (congestive heart failure): Status: Acute (2) Elevated brain natriuretic peptide (BNP) level: Status: Acute (3) Lower extremity edema: Status: Acute (4) Acute hypoxemic respiratory failure due to COVID-19: Status: Acute DS: Summary Hospital Course Hospital Course: Admission note HPI ?66-year-old male with past medical history of type 2 diabetes, HTN, CKD, carotid stenosis, COPD, LEONEL not on CPAP, diastolic CHF with preserved ejection fraction, presents to the hospital with complaints of shortness of breath, ? And orthopnea.? Patient reports that he was discharge from the hospital on the 12 of this month after being managed for flu pneumonia.? Patient was doing well until? Two days ago where he started having shortness of breath,? he tested himself at home and was positive for COVID.? He reports that he went to bed at 21:00? with an oxygen in the 90s, woke up around 01:00 with significant shortness of breath checked his oximeter and showed O2 in the 80s.? He has? minimal cough, no sputum production, reports chronic lower extremity edema that he takes diuretics 4, reports no chest pain, no abdominal pain nausea vomiting, diarrhea constipation and no lower extremity edema. on arrival of EMS patient was found to be hypoxic with O2 in the 70s ?on arrival to the ED patient has a heart rate of 129, respiratory rate of 21, satting 91% on 4 L of nasal cannula Labs are significant for WBC count of 5.2, hemoglobin of 11.7, hematocrit 36.9, INR of 1.5,? creatinine of 3.41 which is around his baseline, BNP of 1541, COVID-19 positive chest x-ray shows bilateral is peers opacities with a degree of improvement from the prior exam Hospital course The patient was admitted to the hospital for evaluation of difficulty breathing as he was found in acute hypoxic respiratory failure in setting of COVID-19 infection and CHF exacerbation. Treated with IV Decadron, IV Bumex, bronchodilator nebulizers and oxygen supplement which was weaned down to room air today before discharge. Patient was evaluated by Cardiology team who recommended to continue Bumex therapy and as for outpatient follow-up for further evaluation of ischemic workup and CardioMEMS device. Started amlodipine for significantly elevated blood pressure readings. Lower extremities edema improved during the hospital stay. Patient was able to ambulate on room air maintaining his oxygen saturation 90s with no reported dyspnea on exertion, chest pain or palpitations. ? Decrease Januvia to 25 mg daily only, adjustments for advanced kidney disease Increase Bumex to 1mg twice daily Start amlodipine 5 mg daily and monitor your blood pressure Continue dexamethasone 4 mg daily recheck blood test next week To follow-up as outpatient with Cardiology for ischemic workup and CardioMEMS device? Time Spent with Patient Time attestation: Total time managing care of this patient today ____ minutes. Discharge coordination time: Greater than 30 minutes Quality: Safe Use of Opioids Does Pt have an Active Cancer Diagnosis on the Problem List?: No Quality: Stroke Does the patient have a stroke diagnosis?: No Physical Exam Vital Signs: Vital Signs: Last Vital Signs Temp 97.6 F 09/15/22 08:00 Pulse 74 09/15/22 08:05 Resp 18 09/15/22 08:05 BP 163/90 H 09/15/22 08:00 Pulse Ox 98 09/15/22 08:00 O2 Del Method 09/15/22 08:00 O2 Flow Rate 3 09/14/22 06:05 Oxygen Flow Rate 4 09/14/22 02:31 BMI result Body Mass Index 35.7 Const: Other: Constitutional : Awake, interactive, not in distress Neck : Normal inspection, Supple Cardiovascular : RRR, no JVP, +trace bilateral lower extremity edema Respiratory : good bilateral air entry, no crackles, wheezes or rhonchi Gastrointestinal: soft, lax, Normal bowel sounds, Non tender Skin : Warm, Dry Neurological : Alert & oriented x3, No focal deficit DS: Data Data Completed and Pending Completed studies during hospitalization [Text1]: Procedures Assistance with Respiratory Ventilation, Less than 24 Consecutive Hours, Continuous Positive Airway Pressure (08/23/22) Labs on day of discharge: Laboratory Results - last 24 hr 09/14/22 09/14/22 09/14/22 12:26 16:19 19:44 Sodium Potassium Chloride Carbon Dioxide Anion Gap BUN Creatinine Estim Creat Clear Calc Estimated GFR POC Glucose 272 H 340 H 248 H Random Glucose Calcium B-Natriuretic Peptide 09/15/22 09/15/22 09/15/22 06:37 06:37 08:32 Sodium 136 Potassium 4.2 Chloride 104 Carbon Dioxide 22 Anion Gap 14 BUN 44 H Creatinine 3.58 H Estim Creat Clear Calc 24.6 Estimated GFR 17 POC Glucose 186 H Random Glucose 171 H D Calcium 8.2 L B-Natriuretic Peptide 1763 H Preliminary micro results at discharge 09/14/22 02:43 Blood Culture - Preliminary Blood - Venous No growth after 24 hours. 09/14/22 02:43 Blood Culture - Preliminary Blood - Venous No growth after 24 hours. Imaging Chest x-ray: Radiologist's impression: ITS Impressions Chest X-Ray 09/14/22 03:25 IMPRESSION: Bilateral airspace opacities show a degree of improvement from the prior exam. Venous Duplex 09/14/22 08:31 IMPRESSION: No acute DVT demonstrated in the left lower extremity. Discharge Plan Discharge Anticipated Discharge Date/Time: 09/15/22 10:54 Patient Disposition: Home, Self-Care Discharge Diagnosis: Acute heart failure exacerbation COVID-19 infection Referrals: Ayaka Salgado MD [Primary Care Provider] - 1 Week Discharge Medications: New dexamethasone 4 mg tablet 4 mg PO DAILY Qty: 7 0RF amlodipine 5 mg Tablet 5 mg PO DAILY 30 Days Qty: 30 0RF Protocol: Hold for SBP< HOLD for SBP < : 90 bumetanide 1 mg tablet 1 mg PO BID Qty: 60 0RF Continued guaifenesin 600 mg tablet extended release 12hr 1,200 mg PO BID PRN (Reason: Congestion) acetaminophen [Tylenol] 325 mg Tablet 650 mg PO Q6H PRN (Reason: Pain) lidocaine 5 % adhesive patch,medicated 1 patch topical DAILY Rx Instructions: may wear up to 12 hours clonidine HCl 0.3 mg tablet 0.3 mg PO TID zolpidem 10 mg tablet 10 mg PO BEDTIME PRN (Reason: Sleep) cholecalciferol (vitamin D3) 25 mcg (1,000 unit) capsule 25 mcg PO Q48H simvastatin 20 mg tablet 20 mg PO BEDTIME cinacalcet 30 mg tablet 30 mg PO DAILY glimepiride 1 mg tablet 1 mg PO DAILY labetalol 200 mg tablet 400 mg PO BID (DME) lancets [FreeStyle Lancets] 28 gauge misc See Rx Instructions .ROUTE .MEDSUPPLY Qty: 100 Rx Instructions: As directed (DME) blood-glucose meter [FreeStyle Lite Meter] Kit See Rx Instructions .ROUTE .MEDSUPPLY Qty: 1 Rx Instructions: As directed budesonide-formoterol [Symbicort] 160-4.5 mcg/actuation HFA aerosol inhaler 2 puff inhalation BID hydralazine 100 mg tablet 100 mg PO TID Rx Instructions: administer with food oxycodone-acetaminophen 5-325 mg tablet 1 tab PO Q8H PRN (Reason: Pain) losartan 100 mg tablet 100 mg PO DAILY Changed Januvia 50 mg tablet 25 mg PO DAILY Qty: 30 0RF Discontinued bumetanide 0.5 mg tablet 1 tab PO DAILY Discharge Orders: Discharge Order (Routine); Ordered 09/16/22 Ordered By: Shu Taveras Diet: Low salt diet Activity on Discharge: As tolerated Stand Alone Forms: Patient Portal Discharge page Other Ambulatory Orders: Basic Metabolic Panel (Routine) Timeframe: 3 Days Facility: [facility] - Location: Laboratory Ordered By: Shu Taveras Care Plan Goals: Read below Health Concerns: Read below Plan of Treatment: Read below Assessment: You were admitted to the hospital for evaluation of difficulty breathing. Found to have an evidence of heart failure exacerbation along with COVID-19 infection. Treated with IV water pills, IV steroids and oxygen supplement with good response over the course of hospital stay as you were weaned off the oxygen and evaluated by Cardiology team would like to see you as outpatient for further evaluation and workup. Monitor your weight at home, low-salt diet, monitor fluid intake Decrease Januvia to 25 mg daily only, adjustments for advanced kidney disease Increase Bumex to 1mg twice daily Start amlodipine 5 mg daily and monitor your blood pressure Continue dexamethasone 4 mg daily recheck blood test next week To follow-up as outpatient with Cardiology for ischemic workup and CardioMEMS device?
[2022-09-15 11:29] LABS: Glucose, Whole Blood 230 mg/dL (60-115)
--- NOTE | 2022-09-15 12:47 | HO.PM.IMPN ---
Subjective Subjective Date of Service: 09/15/22 Interval History: the patient was seen and evaluated this morning Laying in bed, feels much better orally as he is off the oxygen Still having lower extremities edema No reported other overnight events. Systemic review: No fever, chills or weakness No chest pain, palpitation Dyspnea improved, denies coughing No abdominal pain, nausea or vomiting No urinary symptoms No reported rash Physical Exam Vital Signs: Vital Signs: Last Vital Signs Temp 97.7 F 09/15/22 11:29 Pulse 63 09/15/22 11:30 Resp 18 09/15/22 11:30 BP 135/79 09/15/22 11:29 Pulse Ox 96 09/15/22 11:29 O2 Del Method 09/15/22 11:29 O2 Flow Rate 3 09/14/22 06:05 Oxygen Flow Rate 4 09/14/22 02:31 BMI result Body Mass Index 35.7 Const: Other: Constitutional : Awake, interactive, not in distress Neck : Normal inspection, Supple Cardiovascular : RRR, no JVP, +1 bilateral lower extremity edema Respiratory : Fares bilateral air entry, crackles, wheezes or rhonchi Gastrointestinal: soft, lax, Normal bowel sounds, Non tender Skin : Warm, Dry Neurological : Alert & oriented x3, No focal deficit Objective Data Active Medications Acetaminophen (Acetaminophen 325 Mg Tablet) 650 mg PO Q6H PRN PRN Reason: Pain, Mild (Pain Scale 1-3) Albuterol Sulfate (Albuterol Sulfate 90 Mcg 8 Gm Inhaler) 4 puff INHALE RQ4H WHILE AWAKE [facility] Last Admin: 09/15/22 11:28 Dose: 4 puff Documented By: FLOYD Albuterol/Ipratropium (Albuterol/Iprat 2.5/0.5mg 3 Ml Ampul.Neb) 3 ml INHALE RQ4H PRN PRN Reason: Shortness of Breath/Wheezing Amlodipine Besylate (Amlodipine Besylate 2.5 Mg Tablet) 2.5 mg PO DAILY [facility]; Protocol Last Admin: 09/15/22 09:50 Dose: 2.5 mg Documented By: ZULMA Atorvastatin Calcium (Atorvastatin Calcium 10 Mg Tablet) 10 mg PO BEDTIME [facility] Last Admin: 09/14/22 20:56 Dose: 10 mg Documented By: EVANS Bumetanide (Bumetanide 1 Mg/4 Ml Vial) 1 mg IVPUSH BID@0900,1700 [facility]; Protocol Last Admin: 09/15/22 09:52 Dose: 1 mg Documented By: ZULMA Cinacalcet (Cinacalcet Hcl 30 Mg Tablet) 30 mg PO DAILY [facility] Last Admin: 09/15/22 09:50 Dose: 30 mg Documented By: ZULMA Clonidine HCl (Clonidine Hcl 0.1 Mg Tablet) 0.3 mg PO TID [facility]; Protocol Last Admin: 09/15/22 09:51 Dose: 0.3 mg Documented By: ZULMA Dexamethasone Sodium Phosphate (Dexamethasone Sod Phosphate 4 Mg/Ml Vial) 6 mg IVPUSH DAILY [facility] Last Admin: 09/15/22 09:51 Dose: 6 mg Documented By: ZULMA Dextrose (Dextrose 50 % 25 Gm/50 Ml Syringe) 25 gm IVPUSH Q15M PRN; Protocol PRN Reason: per Hypoglycemia Standing Ord. Docusate Sodium (Docusate Sodium 100 Mg Capsule) 100 mg PO DAILY PRN PRN Reason: Constipation Fluticasone/Vilanterol (Fluticasone/Vilanterol 200/25 Blst.W.Dev) 1 puff INHALE RDAILY [facility] Last Admin: 09/15/22 07:59 Dose: 1 puff Documented By: FLOYD Glucose (Glucose Gel 15 Gm Gel..Gram.) 15 gm PO Q15M PRN; Protocol PRN Reason: per Hypoglycemia Standing Ord. Heparin Sodium (Porcine) (Heparin Sodium,Porcine 5,000 Unit/Ml Vial) 5,000 unit SUBCUT Q12H [facility] Last Admin: 09/15/22 05:01 Dose: Not Given Documented By: EVANS Non-Admin Reason: Patient Refused Hydralazine HCl (Hydralazine Hcl 50 Mg Tablet) 100 mg PO TID [facility]; Protocol Last Admin: 09/15/22 09:50 Dose: 100 mg Documented By: ZULMA Insulin Human Lispro (Insulin Lispro 100 Unit/Ml 3 Ml Vial) 0 unit SUBCUT QIDACHS [facility]; Protocol Last Admin: 09/15/22 12:30 Dose: 4 unit Documented By: ZULMA Labetalol HCl (Labetalol Hcl 200 Mg Tablet) 400 mg PO BID [facility]; Protocol Last Admin: 09/15/22 09:50 Dose: 400 mg Documented By: ZULMA Lidocaine (Lidocaine 4 % Patch Adh..Patch) 1 patch TRANSDERMA DAILY [facility] Last Admin: 09/15/22 09:53 Dose: Not Given Documented By: ZULMA Non-Admin Reason: Patient Refused Losartan Potassium (Losartan Potassium 50 Mg Tablet) 100 mg PO DAILY [facility]; Protocol Last Admin: 09/15/22 09:50 Dose: 100 mg Documented By: ZULMA Ondansetron HCl (Ondansetron Hcl 4 Mg/2 Ml Vial) 4 mg IVPUSH Q8H PRN PRN Reason: Nausea and Vomiting Oxycodone HCl (Oxycodone Hcl Immed Release 5 Mg Tablet) 5 mg PO Q8H PRN PRN Reason: Pain, Moderate (Pain Scale 4-6 Sodium Chloride (0.9 % Sodium Chloride Flush 3 Ml Syringe) 3 ml IVFLUSH QSHIFT [facility] Last Admin: 09/15/22 09:50 Dose: 3 ml Documented By: ZULMA Vitamin D (Cholecalciferol (Vitamin D3) 25 Mcg Tablet) 25 mcg PO Q48H [facility] Last Admin: 09/14/22 10:12 Dose: 25 mcg Documented By: LAKISHA Zolpidem Tartrate (Zolpidem Tartrate 5 Mg Tablet) 5 mg PO BEDTIME PRN PRN Reason: Sleep Last Admin: 09/14/22 23:21 Dose: 5 mg Documented By: EVANS Labs CBC & Chem 7: 09/14/22 06:15 09/15/22 06:37 Labs: Laboratory Results - last 24 hr 09/14/22 09/14/22 09/15/22 16:19 19:44 06:37 Anion Gap 14 Estim Creat Clear Calc 24.6 Estimated GFR 17 POC Glucose 340 H 248 H Random Glucose 171 H D Calcium 8.2 L B-Natriuretic Peptide 09/15/22 09/15/22 09/15/22 06:37 08:32 11:18 Anion Gap Estim Creat Clear Calc Estimated GFR POC Glucose 186 H 230 H Random Glucose Calcium B-Natriuretic Peptide 1763 H Microbiology Microbiology Results: Microbiology 09/14/22 02:43 Blood Culture - Preliminary Blood - Venous No growth after 24 hours. 09/14/22 02:43 Blood Culture - Preliminary Blood - Venous No growth after 24 hours. Assessment and Plan (1) Acute exacerbation of CHF (congestive heart failure): Status: Acute (2) Lower extremity edema: Status: Acute (3) Acute hypoxemic respiratory failure due to COVID-19: Status: Acute (4) Elevated brain natriuretic peptide (BNP) level: Status: Acute Plan ?66-year-old male with? mention past medical history on Bumex for diastolic heart failure with preserved ejection fraction presents to the hospital with complaints of shortness of breath orthopnea and PND found to be COVID 19 positive #? acute hypoxic respiratory failure in the setting of COVID-19 infection IV Bumex, Decadron, breathing treatments Wean down oxygen as tolerated #? COVID-19 fax chest x-ray shows improved infiltrate Decadron daily # ? acute CHF exacerbation history of diastolic CHF with preserved ejection fraction Continue IV Bumex strict I&O, low-sodium diet, daily weight Cardiology input appreciated, continue IV Bumex and discharged on Bumex 1 mg daily #? lower extremity edema Negative Doppler for DVT Improving, likely secondary to CHF #? CKD stage IV stable follow BMP #? diabetes low-dose sliding scale insulin diabetic diet #? hypertension Elevated blood pressure readings continue antihypertensives and add amlodipine ?DVT prophylaxis:? Heparin subQ The patient will need overnight hospital stay to continue treatment for heart failure exacerbation and COVID-19 infection pending safe discharge plan Time Spent With Patient Time: Total time managing care of this patient today ____ minutes. Quality Stroke Does the patient have a stroke diagnosis?: No VTE Prior VTE?: No VTE Risk Level:: Medical - moderate - high VTE Device Contraindication: Treatment Not Indicated VTE Drug Contraindication: N/A - Med Ordered
--- NOTE | 2022-09-15 13:25 | PM.PNCARD ---
Subjective Subjective Date of Service: 09/15/22 Principal diagnosis: Diastolic heart failure Interval history: Patient continues to have fluid overload. BNP is worsened compared to yesterday. Intake and output chart not adequately charted. Blood pressure this morning was okay but yesterday was elevated. Very upset that he was told that he was going home today. Review of Systems Constitutional: Reports no additional constitutional complaints Cardiovascular: Reports leg edema and Reports dyspnea on exertion Respiratory: Reports dyspnea on exertion Gastrointestinal: Reports no additional gastrointestinal complaints Reports system reviewed and no additional complaints, except as documented Endocrine: Reports no additional endocrine complaints Physical Exam Vital Signs: Last Vital Signs Temp 97.7 F 09/15/22 11:29 Pulse 63 09/15/22 11:30 Resp 18 09/15/22 11:30 BP 135/79 09/15/22 11:29 Pulse Ox 96 09/15/22 11:29 O2 Del Method 09/15/22 11:29 O2 Flow Rate 3 09/14/22 06:05 Oxygen Flow Rate 4 09/14/22 02:31 BMI result Body Mass Index 35.7 Const General: cooperative, comfortable, alert, awake and in distress mild and respiratory Nutritional Appearance: obese Orientation/consciousness: patient oriented x3 Limitations: no limitations Neck Neck: Yes trachea midline, Yes supple and Yes JVD Chest Chest palpation & inspection: normal inspection of the chest Cardio Jugular venous distension: no JVD Palpation: normal PMI Rate: regular rate Rhythm: regular rhythm Heart sounds: S1 normal heart sound present, S2 normal heart sound present, no click, Gallop heart sound present, no murmurs and no rubs GI Inspection: Yes obesity Auscultation: normal bowel sounds Skin General skin exam: no rashes or lesions noted Neuro General: patient oriented x3 and no focal motor deficits Extrem General: No clubbing, No cyanosis and Yes edema Psych Appearance: grossly normal Objective Labs and Meds Result diagrams: 09/14/22 06:15 09/15/22 06:37 Lab results: Laboratory Results - last 24 hr 09/14/22 09/14/22 09/15/22 16:19 19:44 06:37 Sodium 136 Potassium 4.2 Chloride 104 Carbon Dioxide 22 Anion Gap 14 BUN 44 H Creatinine 3.58 H Estim Creat Clear Calc 24.6 Estimated GFR 17 POC Glucose 340 H 248 H Random Glucose 171 H D Calcium 8.2 L B-Natriuretic Peptide 09/15/22 09/15/22 09/15/22 06:37 08:32 11:18 Sodium Potassium Chloride Carbon Dioxide Anion Gap BUN Creatinine Estim Creat Clear Calc Estimated GFR POC Glucose 186 H 230 H Random Glucose Calcium B-Natriuretic Peptide 1763 H Progress Note: A&P Assessment and plan (1) Acute exacerbation of CHF (congestive heart failure): Status: Acute Assessment and Plan: Acute exacerbation heart failure related to diastolic dysfunction secondary to significant hypertensive heart disease with severe LVH. He also has advanced kidney disease which limits his treatment options. Clinically does not appear to be ready for discharge. Discussed with the patient as to proper diuresis prior to discharge. I would like to see downtrending BNP to less than 50% of admission BNP prior to discharging him. Continue IV Bumex. Strict intake and output chart needs to be pursued. CHF education to be provided to the patient. Cannot add Aldactone as well as Jardiance due to advanced renal dysfunction. Will require ischemic workup as an outpatient. Continue manage his viral syndrome. Treatment of sleep apnea. Continue aggressive control blood pressure which appears to be difficult to control. Continue maximize amlodipine therapy. Will continue to follow with the patient. Time Spent With Patient Time: Total time managing care of this patient today ____ minutes. Progress Note: Quality Stroke Does the patient have a stroke diagnosis?: No Procedures Date of Service Date of Service: 09/15/22
[2022-09-15 16:20] LABS: Glucose, Whole Blood 266 mg/dL (60-115)
[2022-09-15 19:43] LABS: Glucose, Whole Blood 374 mg/dL (60-115)
[2022-09-15] MEDS: Atorvastatin Calcium 10 MG TABLET PO (20:19)
[2022-09-15] MEDS: Zolpidem Tartrate 5 MG TABLET PO (20:24)
[2022-09-16 03:40] VITALS: BP 158/90; PULSE 58; RESP 18; TEMP 36.4; O2SAT 95
[2022-09-16] MEDS: Cholecalciferol (Vitamin D3) 25 MCG TABLET PO (06:11)
[2022-09-16 07:13] LABS: Glucose, Whole Blood 172 mg/dL (60-115)
[2022-09-16 07:36] LABS: Anion Gap 15 (12-20); Blood Urea Nitrogen 58 mg/dL (9-16); Carbon Dioxide 24 mmol/L (22-29); Chloride 103 mmol/L (96-108); Creatinine Clr Calc Pharmacy 23.7; Estimated Glomerular Filt Rate 17; Glucose Random 191 mg/dL (60-115); Potassium 4.1 mmol/L (3.3-5.1); Sodium 138 mmol/L (135-145)
[2022-09-16 07:46] VITALS: BP 171/99; PULSE 57; RESP 18; TEMP 36.4; O2SAT 97
[2022-09-16 07:57] LABS: B Type Natriuretic Peptide 489 pg/mL (<100)
[2022-09-16] MEDS: Insulin Lispro 100 UNIT/ML 3 ML VIAL SUBCUT (08:23)
[2022-09-16] MEDS: hydrALAZINE HCl 50 MG TABLET 100 MG PO ×2 (08:24→14:35)
[2022-09-16] MEDS: amLODIPine Besylate 2.5 MG TABLET PO ×2 (08:24→10:31)
[2022-09-16] MEDS: Losartan Potassium 50 MG TABLET 100 MG PO (08:24)
[2022-09-16] MEDS: Labetalol HCL 200 MG TABLET 400 MG PO (08:24)
[2022-09-16] MEDS: cloNIDine HCL 0.1 MG TABLET 0.3 MG PO ×2 (08:24→14:35)
[2022-09-16] MEDS: dexAMETHasone sod phosphate 4 MG/ML VIAL 6 MG IVPUSH (08:25)
[2022-09-16] MEDS: Bumetanide 1 MG/4 ML VIAL IVPUSH (08:25)
[2022-09-16] MEDS: 0.9 % Sodium Chloride Flush 3 ML SYRINGE IVFLUSH ×2 (08:26→14:37)
[2022-09-16] MEDS: Cinacalcet HCl 30 MG TABLET PO (08:35)
[2022-09-16] MEDS: Albuterol Sulfate 90 MCG 8 GM INHALER 4 PUFF INHALE ×2 (08:39→14:03)
[2022-09-16] MEDS: Fluticasone/Vilanterol 200/25 BLST.W.DEV 1 PUFF INHALE (08:40)
[2022-09-16 08:41] VITALS: PULSE 72; RESP 16; O2SAT 98
--- NOTE | 2022-09-16 09:19 | MHC.CM.PN ---
Addendum entered by Cara Reyes 09/16/22 10:19: IMM 09/16/22 Per MD patient is ready to discharge today, self care. Patients will provide transportation home. Original Note: Patient was planned for discharge yesterday. Discharge held r/t increased BNP and LE edema. Patient requires further diuresis per cardiology. [facility] no services will provide transportation.
--- NOTE | 2022-09-16 13:13 | PM.PNCARD ---
Subjective Subjective Date of Service: 09/16/22 Principal diagnosis: Diastolic heart failure Interval history: Patient breathing much better. Heart failure symptoms improved. BNP is down trended. Continues to have leg edema. Review of Systems Review of Systems Yes all other systems are reviewed and are negative Physical Exam Vital Signs: Last Vital Signs Temp 97.6 F 09/16/22 07:46 Pulse 72 09/16/22 08:41 Resp 16 09/16/22 08:41 BP 171/99 H 09/16/22 07:46 Pulse Ox 97 09/16/22 07:46 O2 Del Method 09/16/22 07:46 O2 Flow Rate 3 09/14/22 06:05 Oxygen Flow Rate 4 09/14/22 02:31 BMI result Body Mass Index 35.7 Const General: cooperative, comfortable, alert, awake and in distress mild and respiratory Nutritional Appearance: obese Orientation/consciousness: patient oriented x3 Limitations: no limitations Neck Neck: Yes trachea midline, Yes supple and Yes no JVD Chest Chest palpation & inspection: normal inspection of the chest Cardio Jugular venous distension: no JVD Palpation: normal PMI Rate: regular rate Rhythm: regular rhythm Heart sounds: S1 normal heart sound present, S2 normal heart sound present, no click, Gallop heart sound present, no murmurs and no rubs GI Inspection: Yes obesity Auscultation: normal bowel sounds Skin General skin exam: no rashes or lesions noted Neuro General: patient oriented x3 and no focal motor deficits Extrem General: No clubbing, No cyanosis and Yes edema Psych Appearance: grossly normal Objective Labs and Meds Result diagrams: 09/14/22 06:15 09/16/22 06:46 Lab results: Laboratory Results - last 24 hr 09/15/22 09/15/22 09/16/22 16:15 19:39 06:46 Sodium 138 Potassium 4.1 Chloride 103 Carbon Dioxide 24 Anion Gap 15 BUN 58 H Creatinine 3.72 H Estim Creat Clear Calc 23.7 Estimated GFR 17 POC Glucose 266 H 374 H* Random Glucose 191 H Calcium 8.0 L B-Natriuretic Peptide 09/16/22 09/16/22 06:46 07:07 Sodium Potassium Chloride Carbon Dioxide Anion Gap BUN Creatinine Estim Creat Clear Calc Estimated GFR POC Glucose 172 H Random Glucose Calcium B-Natriuretic Peptide 489 H Progress Note: A&P Assessment and plan (1) Acute exacerbation of CHF (congestive heart failure): Status: Acute Assessment and Plan: Acute exacerbation of heart failure in this elderly gentleman 2nd hypertensive heart disease severe LVH with renal insufficiency. Heart failure management was discussed in details. Is discharged on 1 mg b.i.d. of Bumex. Heart failure management discussed daily weight monitoring and avoidance of salt loading and additional diuretic use was discussed with him. Continue CPAP therapy. Continue aggressive control blood pressure. Will require outpatient perfusion imaging to rule out obstructive coronary artery disease. Given his tenuous fluid situation with advanced kidney disease I think he will benefit from CardioMEMS placement. Discussed with him. He wants to think about it. Will be done as outpatient. Will sign of the case. Patient can be discharged home. Follow-up as outpatient. Time Spent With Patient Time: Total time managing care of this patient today ____ minutes. Progress Note: Quality Stroke Does the patient have a stroke diagnosis?: No Procedures Date of Service Date of Service: 09/16/22
[2022-09-16 14:05] VITALS: PULSE 57; RESP 18; O2SAT 97
== END 2022-09-16 14:55 | disposition home or self-care (01) | DRG 177 ==
LOC: HO.ED 03:57 → HO.EDOVER 05:49 → HO.IMC 14:59
PROVIDERS: Admitting Provider Internal Medicine; Emergency Provider Internal Medicine; PCP Internal Medicine; Visit Provider Student in an Organized Health Care Education/Training Program
DX: U07.1 COVID-19 (principal); I50.33 Acute on chronic diastolic (congestive) heart failure; J96.01 Acute respiratory failure with hypoxia; J12.82 Pneumonia due to coronavirus disease 2019; I13.0 Hypertensive heart and chronic kidney disease with heart failure and stage 1 through stage 4 chronic kidney disease, or unspecified chronic kidney disease; N18.4 Chronic kidney disease, stage 4 (severe); F17.210 Nicotine dependence, cigarettes, uncomplicated; G47.33 Obstructive sleep apnea (adult) (pediatric); Z71.6 Tobacco abuse counseling; E11.22 Type 2 diabetes mellitus with diabetic chronic kidney disease; Z88.6 Allergy status to analgesic agent; Z88.8 Allergy status to other drugs, medicaments and biological substances; Z79.84 Long term (current) use of oral hypoglycemic drugs; Z79.899 Other long term (current) drug therapy
CPT/HCPCS: 36415; 71045; 80048; 80053; 82803; 82947; 83605; 83880; 84484; 85025; 85610; 87040; 87635; 93005; 93971; 94640; 99285; J1100; J8540

== ENCOUNTER → 2022-09-25 08:17 | Outpatient (REF) | payer MEDICARE, SELFPAY ==
--- NOTE | ~2022-09-25 | NM_ITS ---
Lexiscan Myocardial perfusion study Indication: Congestive heart failure, assess for ischemia Technique: The patient was brought in for a Lexiscan perfusion study on 09/25/2022 and was injected 0.4 mg of Lexiscan intravenously. Within a minute of this injection 30 mCi of sestamibi was given intravenously. Images were obtained using the SPECT gamma camera interlaced with the gating device. Images were obtained in supine position. Resting perfusion study was performed on 09/26/2022. Patient was administered 30 mCi of sestamibi intravenously at rest. Images were then obtained in supine position. Images were processed with the software and compared side to side in short axis, horizontal long axis and vertical long axis views. Total DLP 118mGy-cm. Findings: Raw acquisition reviewed. The stress perfusion study showed markedly decreased tracer uptake along the inferior wall. With CT attenuation correction, there is improvement and hence could indicate diaphragmatic attenuation artifact. There is also intense subdiaphragmatic uptake noted in the raw acquisition. The gated study shows normal LV systolic function with calculated LVEF of 53%. LV cavity is normal in size. The gated study shows diminished thickening in the inferior wall. Resting study shows diminished tracer uptake along the inferior wall. There is improvement with CT attenuation correction. Gating at rest reveals normal wall motion with ejection fraction at 61%. The findings are consistent with no reversible defects. Fixed inferior defect, suspected to be from diaphragmatic attenuation artifact. NM/NM mitra perf SPECT rest & str Impression: 1. Myocardial perfusion imaging study shows likely normal myocardial perfusion. No clear evidence of any ischemia or infarction. 2. Gated LVEF is 53% during stress and 61% during rest. 3. Transient ischemic dilatation not present. EKG component of the test reported separately.
--- NOTE | 2022-09-25 08:20 | CA_ITS ---
Acquisition Time: 2022-09-25 08:29:45 Total Exercise Time: 00:02:00 Test Indications: HEART FAILURE Medications: SEE DISCHARGE SUMMARY Protocol: LEXISCAN Max HR: 071 BPM 45% of Pred: 156 BPM Max BP: 146/066 mmHG Max Work Load: 1.0 METS Pharmacological stress test with Lexiscan injection, while sitting and moving left arm, without anginal symptoms, with baseline heart rate in 60s, then drop into 50s post injection with at least 2 junctional beats and one ventricular escape beat post injection, with normotensive response to injection, without EKG changes meeting criteria for ischemia. Nuclear images pending. Test reviewed with Dr Dunbar. Referred By: Bartolo Anand Overread By: ZAY HALL
== END ==
LOC: HO.CARD 08:17
PROVIDERS: Visit Provider Internal Medicine Cardiovascular Disease
DX: I50.9 Heart failure, unspecified (principal)
CPT/HCPCS: 78452; 93017; A9500; J0280; J2785

== ENCOUNTER → 2022-10-08 12:59 | Outpatient (BNVA) | payer MEDICARE, MEDICAID, SELFPAY | PROVIDERS: PCP Internal Medicine; Referring Provider Internal Medicine; Visit Provider Nurse Practitioner Family | DX: Z09 Encounter for follow-up examination after completed treatment for conditions other than malignant neoplasm (principal); I11.0 Hypertensive heart disease with heart failure; I50.9 Heart failure, unspecified; I65.22 Occlusion and stenosis of left carotid artery; I44.0 Atrioventricular block, first degree; I45.10 Unspecified right bundle-branch block; J44.9 Chronic obstructive pulmonary disease, unspecified; F17.210 Nicotine dependence, cigarettes, uncomplicated | CPT/HCPCS: 99212 ==

== ENCOUNTER → 2022-10-10 10:16 | Outpatient (BNVA) | payer MEDICARE, MEDICAID, SELFPAY | PROVIDERS: PCP Internal Medicine; Visit Provider Internal Medicine | DX: J44.9 Chronic obstructive pulmonary disease, unspecified (principal); G47.33 Obstructive sleep apnea (adult) (pediatric); J18.9 Pneumonia, unspecified organism; R06.09 Other forms of dyspnea; F17.210 Nicotine dependence, cigarettes, uncomplicated | CPT/HCPCS: 99212 ==

== ENCOUNTER 2022-10-18 08:36 | Outpatient (REF) | payer MEDICARE, MEDICAID, SELFPAY ==
--- NOTE | 2022-10-18 09:55 | PFT_ITS ---
FLOWS: FEV1 59% of predicted at 1.84 L. FVC 71% of predicted at 2.91 L. FEV1 to FVC ratio 0.63. No bronchodilator response. LUNG VOLUMES: Total lung capacity 93% of predicted at 5.96 L. Residual volume 146% of predicted at 3.20 L. Slow vital capacity 65% of predicted at 2.76 L. Expiratory reserve volume 18% of predicted at 0.21 L. Diffusion capacity is mildly . Diffusion capacity corrects to normal after adjustment for alveolar ventilation. IMPRESSION: Moderate obstructive ventilatory defect with no bronchodilator response. Increased residual volume suggests airtrapping. Decreased expiratory reserve volume suggests extrathoracic restriction likely secondary to abdominal obesity. Decreased diffusion capacity suggests emphysema. MD SHARIF Laird/MODL / [id number]
== END 2022-10-18 08:37 | disposition home or self-care (01) ==
LOC: HO.RESP 08:36
PROVIDERS: PCP Internal Medicine; Visit Provider Internal Medicine
DX: R06.09 Other forms of dyspnea (principal); J44.9 Chronic obstructive pulmonary disease, unspecified; F17.200 Nicotine dependence, unspecified, uncomplicated
CPT/HCPCS: 94060; 94727; 94729

== ENCOUNTER → 2022-11-18 08:49 | Outpatient (BNVA) | payer MEDICARE, MEDICAID, SELFPAY | PROVIDERS: PCP Internal Medicine; Visit Provider Internal Medicine | DX: J44.9 Chronic obstructive pulmonary disease, unspecified (principal); G47.33 Obstructive sleep apnea (adult) (pediatric); E66.9 Obesity, unspecified; Z68.37 Body mass index [BMI] 37.0-37.9, adult; F17.210 Nicotine dependence, cigarettes, uncomplicated | CPT/HCPCS: 99212 ==

== ENCOUNTER → 2023-01-15 09:46 | Outpatient (BNVA) | payer MEDICARE, MEDICAID, SELFPAY | PROVIDERS: PCP Internal Medicine; Referring Provider Internal Medicine; Visit Provider Internal Medicine | DX: I13.0 Hypertensive heart and chronic kidney disease with heart failure and stage 1 through stage 4 chronic kidney disease, or unspecified chronic kidney disease (principal); E11.22 Type 2 diabetes mellitus with diabetic chronic kidney disease; N18.4 Chronic kidney disease, stage 4 (severe); I50.33 Acute on chronic diastolic (congestive) heart failure; I65.22 Occlusion and stenosis of left carotid artery; I44.0 Atrioventricular block, first degree; I45.10 Unspecified right bundle-branch block | CPT/HCPCS: 99212 ==

== ENCOUNTER 2023-03-10 09:31 | Outpatient (REF) | payer MEDICARE, MEDICAID, SELFPAY ==
[2023-03-10 09:47] LABS: MANUAL DIFF FLAG NO
[2023-03-10 09:58] LABS: Basophils Percent Auto 0.6 % (0-2); Eosinophils Absolute Auto 0.4 X10*3/uL (0.0-0.4); Eosinophils Percent Auto 6.2 % (0-4); Hematocrit 34.6 % (42.0-52.0); Hemoglobin 11.4 g/dl (14.0-18.0); Imm Gran Abs Auto 0.03 X10*3/uL (0.00-0.03); Imm Gran Pct Auto 0.4 % (0.0-0.4); Lymphocytes Absolute Auto 1.1 X10*3/uL (1.2-4.9); Lymphocytes Percent Auto 15.2 % (20-40); Mean Corpuscular HGB Conc 32.9 g/dl (31.0-36.0); Mean Corpuscular Hemoglobin 28.6 pg (27.0-33.0); Mean Corpuscular Volume 86.9 fL (80.0-98.0); Mean Platelet Volume 10.2 fL (9.4-12.4); Monocytes Absolute Auto 0.6 X10*3/uL (0.1-1.2); Neutrophils Absolute Auto 4.8 x10*3/uL (2.0-8.3); Neutrophils Percent Auto 69.6 % (45-73); Platelet Count 206 X10*3/uL (160-400); Red Blood Count 3.98 X10*6/uL (4.60-5.80); Red Cell Distribution Width 12.7 % (11.0-16.0); White Blood Count 6.9 X10*3/uL (4.8-10.8)
[2023-03-10 10:09] LABS: INTERNATIONAL NORM RATIO 1.2 (0.9-1.1); Prothrombin Time 14.1 SEC (10.0-13.1)
[2023-03-10 11:39] LABS: Anion Gap 15 (12-20); Blood Urea Nitrogen 41 mg/dL (9-16); Calcium 8.5 mg/dL (8.4-10.2); Chloride 108 mmol/L (96-108); Estimated Glomerular Filt Rate 16; Glucose Random 193 mg/dL (60-115); Potassium 3.9 mmol/L (3.3-5.1); Sodium 142 mmol/L (135-145)
[2023-03-10 11:46] LABS: Carbon Dioxide 23 mmol/L (22-29)
== END 2023-03-10 09:32 | disposition home or self-care (01) ==
LOC: HO.LAB 09:31
PROVIDERS: PCP Internal Medicine; Visit Provider Nurse Practitioner Family
DX: I50.33 Acute on chronic diastolic (congestive) heart failure (principal)
CPT/HCPCS: 36415; 80048; 85025; 85610

== ENCOUNTER 2023-03-13 11:14 | Day surgery (SDC) | payer MEDICARE, MEDICAID, SELFPAY ==
--- NOTE | 2023-03-12 10:29 | HO.ANESPROP2 ---
HPI - Anesthesia Eval Consult details Narrative: 67yo M for CARDIOMEMS Review of recent cardiac and pulm visits/tests: CHF with slight volume overload. Additional prn bumex by cardiology after discussion with nephro (follows for CKD). Left carotid stenosis. COPD stable but untreated LEONEL, continues to smoke. FOR[facility]LY [facility] Active Problems Active Problems: All Active Problems (Updated 01/15/23 @ 11:34 by Jose Kim MD) Acute on chronic diastolic (congestive) heart failure (Acute) Obesity (BMI 30-39.9) (Acute) Hospital discharge follow-up (Acute) Pneumonia (Acute) LEONEL (obstructive sleep apnea) (Acute) Dyspnea on minimal exertion (Acute) COPD (chronic obstructive pulmonary disease) (Acute) Smoker (Acute) RBBB (Acute) First degree heart block (Acute) CKD (chronic kidney disease) stage 4, GFR 15-29 ml/min (Acute) Type 2 diabetes mellitus with unspecified complications (Acute) Essential hypertension (Acute) Primary osteoarthritis of knees, bilateral (Acute) Carotid stenosis (Acute) Past Medical History Medical History CKD (chronic kidney disease) COPD (chronic obstructive pulmonary disease) COPD (chronic obstructive pulmonary disease) Diabetes mellitus Dyslipidemia Dyspnea on minimal exertion Elevated brain natriuretic peptide (BNP) level Hypertension Left ventricular hypertrophy Lower extremity edema Obesity Obesity (BMI 30-39.9) LEONEL (obstructive sleep apnea) Smoker Smoking Family History Family History Father No problems noted. Mother Diabetes Family/Other No problems noted. Surgical History Surgical History No pertinent past surgical history Social History Social History Household Members: Significant Other Housing: Apartment Do you presently have visiting nurse or other home services: No Alcohol intake: current Alcohol intake frequency: a few times a month Patient Tobacco Use Status: Former Tobacco user Quit Date: 2021 e-Cigarette/Vaping Use: Never Used Second Hand Smoke Exposure: No Advance Directives Date on File: 08/23/22 service: No Current occupational status: disabled Meds Allergies Allergy/AdvReac Type Severity Reaction Status Date / Time aspirin AdvReac Unknown nose bleeds Verified 03/25/23 13:47 metformin AdvReac Unknown hypoglycemi Verified 03/25/23 13:47 a warfarin [From Coumadin] AdvReac Unknown Nose Bleed Verified 03/25/23 13:47 apixaban AdvReac Nose Bleed Verified 03/25/23 13:47 clopidogrel AdvReac Nose Bleed Verified 03/25/23 13:47 Home Medications Medication Instructions Recorded Confirmed Last Taken Type cholecalciferol (vitamin D3) 25 25 mcg PO Q48H 06/22/20 03/25/23 09/13/22 History mcg (1,000 unit) capsule cinacalcet 30 mg tablet 30 mg PO DAILY 06/22/20 03/25/23 09/13/22 History glimepiride 1 mg tablet 1 mg PO DAILY 06/22/20 03/25/23 09/13/22 History simvastatin 20 mg tablet 20 mg PO BEDTIME 06/22/20 03/25/23 09/13/22 History zolpidem 10 mg tablet 10 mg PO BEDTIME PRN Sleep 06/22/20 03/25/23 Unknown History blood-glucose meter (FreeStyle #1 ea 11/07/20 03/25/23 Unknown History Lite Meter kit) lancets 28 gauge (FreeStyle #100 ea 11/07/20 03/25/23 Unknown History Lancets) hydralazine 100 mg tablet 100 mg PO TID 02/14/22 03/25/23 09/13/22 History losartan 100 mg tablet 100 mg PO DAILY 02/14/22 03/25/23 09/13/22 History oxycodone-acetaminophen 5 mg-325 1 tab PO Q8H PRN Pain 02/14/22 03/25/23 Unknown History mg tablet labetalol 200 mg tablet 400 mg PO BID 05/21/22 03/25/23 09/13/22 History acetaminophen 325 mg tablet 650 mg PO Q6H PRN Pain 09/14/22 03/25/23 Unknown History (Tylenol) guaifenesin 600 mg tablet, 1,200 mg PO BID PRN Congestion 09/14/22 03/25/23 Unknown History extended release 12 hr calcitriol 0.25 mcg capsule 0.25 mcg PO DAILY 01/15/23 03/25/23 Unknown History lidocaine 5 % topical patch 1 patch topical DAILY 03/25/23 03/25/23 Unknown History Exam Exam Date and Time: March 12, 2023 1029 Pertinent Lab Results Pertinent Lab Results: Laboratory Tests 03/10/23 03/10/23 09:46 09:46 WBC 6.9 Hgb 11.4 L Hct 34.6 L Plt Count 206 D Sodium 142 Potassium 3.9 Chloride 108 Carbon Dioxide 23 BUN 41 H Creatinine 3.73 H Narrative Narrative: NM mitra perf SPECT rest & str 09/2022 Impression: ? 1.? Myocardial perfusion imaging study shows likely normal myocardial perfusion. No clear evidence of any ischemia or infarction. 2.? Gated LVEF is 53% during stress and 61% during rest. 3. Transient ischemic dilatation not present. ? EKG component of the test reported separately. EKG 08/2022 Vent. Rate : 131 BPM ? ? Atrial Rate : 000 BPM ?? P-R Int : 000 ms? QRS Dur : 140 ms ? ? QT Int : 350 ms ? ? ? P-R-T Axes : 000 194 028 degrees ?? QTc Int : 516 ms ? Undetermined rhythm Possible Atrial tachycardia /atrial flutter Right bundle branch block Left posterior fascicular block Abnormal ECG When compared with ECG of 23-AUG-2022 10:39, Possible atrial tachycardia/flutter present ECHO 2021 Conclusions: - 1.? Low normal LV systolic function with severe LVH with ? ? ? impaired relaxation filling pattern? 2.? Moderately dilated left atrium ? 3.? Cardiac valvular Doppler within normal limits? 4.? Normal RV systolic pressure? 5.? No gross pericardial effusion? ? ? PFT 10/2022 FLOWS:? FEV1 59% of predicted at 1.84 L. ? FVC 71% of predicted at 2.91 L. ? FEV1 to FVC ratio 0.63. ? No bronchodilator response. ?? LUNG VOLUMES:? Total lung capacity 93% of predicted at 5.96 L. ? Residual volume 146% of predicted at 3.20 L. ? Slow vital capacity 65% of predicted at 2.76 L. ? Expiratory reserve volume 18% of predicted at 0.21 L. ? Diffusion capacity is mildly .? Diffusion capacity corrects to normal after adjustment for alveolar ventilation. ?? IMPRESSION:? Moderate obstructive ventilatory defect with no bronchodilator response. Increased residual volume suggests airtrapping.? Decreased expiratory reserve volume suggests extrathoracic restriction likely secondary to abdominal obesity.? Decreased diffusion capacity suggests emphysema. carotid duplex BI 2021 IMPRESSION: 1. RIGHT: Minimal, non-hemodynamically significant stenosis of the proximal right internal carotid artery corresponding to a 0-49% stenosis by velocity criteria. ? 2. LEFT: Moderate, hemodynamically significant stenosis of the proximal left internal carotid artery corresponding to a 50-79% stenosis by velocity criteria. Assessment and Plan Assessment Anesthesia Assessment: Chart Reviewed
[2023-03-13] VITALS (16 sets, daily range): BP systolic 138–162; BP diastolic 74–89; PULSE 55–67; RESP 14–18; TEMP 36.4–36.6; O2SAT 96–98; BMI 37.6
--- NOTE | 2023-03-13 12:24 | P.CONAN_ITS ---
[facility] Active Problems Active Problems: All Active Problems (Updated 01/15/23 @ 11:34 by Jose Kim MD) Acute on chronic diastolic (congestive) heart failure (Acute) Obesity (BMI 30-39.9) (Acute) Hospital discharge follow-up (Acute) Pneumonia (Acute) LEONEL (obstructive sleep apnea) (Acute) Dyspnea on minimal exertion (Acute) COPD (chronic obstructive pulmonary disease) (Acute) Smoker (Acute) RBBB (Acute) First degree heart block (Acute) CKD (chronic kidney disease) stage 4, GFR 15-29 ml/min (Acute) Type 2 diabetes mellitus with unspecified complications (Acute) Essential hypertension (Acute) Primary osteoarthritis of knees, bilateral (Acute) Carotid stenosis (Acute) Past Medical History Medical History CKD (chronic kidney disease) COPD (chronic obstructive pulmonary disease) COPD (chronic obstructive pulmonary disease) Diabetes mellitus Dyslipidemia Dyspnea on minimal exertion Elevated brain natriuretic peptide (BNP) level Hypertension Left ventricular hypertrophy Lower extremity edema Obesity Obesity (BMI 30-39.9) LEONEL (obstructive sleep apnea) Smoker Smoking Family History Family History Father No problems noted. Mother Diabetes Family/Other No problems noted. Family history of problems with anesthesia: No Surgical History Surgical History No pertinent past surgical history History of Problems with Anesthesia: No Social History Social History Household Members: Significant Other Housing: Apartment Do you presently have visiting nurse or other home services: No Alcohol intake: current Alcohol intake frequency: a few times a month Patient Tobacco Use Status: Former Tobacco user Quit Date: 2021 e-Cigarette/Vaping Use: Never Used Second Hand Smoke Exposure: No Advance Directives Date on File: 08/23/22 service: No Current occupational status: disabled Meds Allergies Allergy/AdvReac Type Severity Reaction Status Date / Time aspirin AdvReac Unknown nose bleeds Verified 01/15/23 10:06 metformin AdvReac Unknown hypoglycemi Verified 01/15/23 10:06 a warfarin [From Coumadin] AdvReac Unknown Nose Bleed Verified 01/15/23 10:06 apixaban AdvReac Nose Bleed Verified 01/15/23 10:06 clopidogrel AdvReac Nose Bleed Verified 01/15/23 10:06 Active Medications: Current Medications Albuterol Sulfate (Albuterol Sulfate (0.083%) 2.5 Mg/3 Ml Vial.Neb) 2.5 mg INHALE ONCE PRN PRN Reason: Shortness of Breath/Wheezing Sodium Chloride (Ns) 1,000 mls @ 50 mls/hr IVCONT .Q20H ZOEY Home Medications Medication Instructions Recorded Confirmed Last Taken Type cholecalciferol (vitamin D3) 25 25 mcg PO Q48H 06/22/20 01/15/23 09/13/22 History mcg (1,000 unit) capsule cinacalcet 30 mg tablet 30 mg PO DAILY 06/22/20 01/15/23 09/13/22 History clonidine HCl 0.3 mg tablet 0.3 mg PO TID 06/22/20 01/15/23 09/13/22 History glimepiride 1 mg tablet 1 mg PO DAILY 06/22/20 01/15/23 09/13/22 History simvastatin 20 mg tablet 20 mg PO BEDTIME 06/22/20 01/15/23 09/13/22 History zolpidem 10 mg tablet 10 mg PO BEDTIME PRN Sleep 06/22/20 01/15/23 Unknown History blood-glucose meter (FreeStyle #1 ea 11/07/20 01/15/23 Unknown History Lite Meter kit) lancets 28 gauge (FreeStyle #100 ea 11/07/20 01/15/23 Unknown History Lancets) hydralazine 100 mg tablet 100 mg PO TID 02/14/22 01/15/23 09/13/22 History losartan 100 mg tablet 100 mg PO DAILY 02/14/22 01/15/23 09/13/22 History oxycodone-acetaminophen 5 mg-325 1 tab PO Q8H PRN Pain 02/14/22 01/15/23 Unknown History mg tablet labetalol 200 mg tablet 400 mg PO BID 05/21/22 01/15/23 09/13/22 History acetaminophen 325 mg tablet 650 mg PO Q6H PRN Pain 09/14/22 01/15/23 Unknown History (Tylenol) guaifenesin 600 mg tablet, 1,200 mg PO BID PRN Congestion 09/14/22 01/15/23 Unknown History extended release 12 hr calcitriol 0.25 mcg capsule 0.25 mcg PO DAILY 01/15/23 01/15/23 Unknown History Exam Exam Date and Time: March 13, 2023 1224 Airway Mallampati Class: III TM Dist: >3cm Neck ROM: Full Loose/Missing/Broken Teeth: Yes and Upper Heart: RRR Lungs: CTA Assessment and Plan Final Anesthetic Review Family History of Problems with Anesthesia: No History of Problems with Anesthesia: No NPO: Yes ASA Class: III Final Preanesthetic Review: Meds/Allgs Chart Reviewed, Consent Obtained/Reviewed and Anes Risks/Benef Reviewed Patient Risk: Intermediate Procedure Risk: Low Anesthetic Plan Anesthetic Plan: MAC: Disposition: Standard PACU
--- NOTE | 2023-03-13 12:33 | PC.NURSE ---
Per Dr Dunbar - patient had recent labs drawn and does not need new set done
[2023-03-13 12:58] LABS: Glucose, Whole Blood 139 mg/dL (60-115)
--- NOTE | 2023-03-13 16:33 | W.PM.OPN ---
Operative Note Operative Note Date of Service: 03/13/23 Narrative: Procedure: ?CardioMEMS implantation. Surgeon: ?Olman Dunbar MD Anesthesia: MAC Indication: [id number]. Patient was seen and examined before the procedure and informed consent was signed. In the room, time-out was performed for proper patient identification.? After sedation with the help of anesthesia, the patient was draped in a usual fashion.? We gave lidocaine subcutaneously in the right femoral area and using micropuncture technique we placed the 4 Stateless sheath into the right common femoral vein.? We advanced 0.035 J tipped wire and advanced a 7 Stateless dilator.? After dilation the pre closed using a Perclose ProGlide.? The wire was advanced through the ProGlide and 11 Stateless sheath was placed in the common femoral vein. We advanced a 7 Stateless [place] catheter and measures pressures in right atrium, right ventricle and left pulmonary artery.? The wedge the catheter and recorded the pulmonary capillary wedge pressure.? Right heart catheterization findings: RA 10, RV 39/10, PA 38/15 (mean 23), PCWP 15. BP 153/84, HR 65/min. After this we performed a pulmonary angiogram and selected the appropriate branch to wire into.? Using an 0.018 wire we wired into branch of pulmonary artery on the left side and walk the [place] catheter.? Over the 018 wire we advanced the CardioMEMS delivery catheter.? Once we were at the appropriate confirmed by fluoroscopy and anatomical landmarks, the CardioMEMS device was released.? We gently backed the delivery catheter and the 018 wire.? Over the 0.018 wire we then advanced this once can catheter again and measures up pulmonary artery pressure.? We calibrated the device.? At this stage the [place] catheter was removed.? The sheath was removed and Perclose sutures were tied and gentle pressure was held for few minutes to achieve hemostasis. Complications:? None.
== END 2023-03-13 19:20 | disposition home or self-care (01) ==
PROVIDERS: PCP Internal Medicine; Visit Provider Internal Medicine Cardiovascular Disease
DX: I13.0 Hypertensive heart and chronic kidney disease with heart failure and stage 1 through stage 4 chronic kidney disease, or unspecified chronic kidney disease (principal); I50.33 Acute on chronic diastolic (congestive) heart failure; N18.4 Chronic kidney disease, stage 4 (severe); E11.22 Type 2 diabetes mellitus with diabetic chronic kidney disease; I44.0 Atrioventricular block, first degree; I45.10 Unspecified right bundle-branch block; I65.22 Occlusion and stenosis of left carotid artery
CPT/HCPCS: 33289; 82947; C1760; C1769; C1887; C1894; C2624; J2250; J3010; Q9967

== ENCOUNTER 2023-03-25 13:13 | Outpatient (AMB) | payer MEDICARE, MEDICAID, SELFPAY ==
--- NOTE | 2023-03-25 13:37 | MHC.OFFVIS ---
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: No Allergies aspirin Adverse Reaction (Unknown, Verified 03/25/23 13:47) nose bleeds metformin Adverse Reaction (Unknown, Verified 03/25/23 13:47) hypoglycemia warfarin [From Coumadin] Adverse Reaction (Unknown, Verified 03/25/23 13:47) Nose Bleed apixaban Adverse Reaction (Verified 03/25/23 13:47) Nose Bleed clopidogrel Adverse Reaction (Verified 03/25/23 13:47) Nose Bleed Medication List - Last Reconciled 03/25/23 by ANU Gonzalez acetaminophen (Tylenol) 650 mg PO Q6H PRN amlodipine 5 mg See Protocol PO DAILY 30 days blood-glucose meter (FreeStyle Lite Meter kit) As directed bumetanide 1 mg PO BID bumetanide 0.5 mg PO DAILY calcitriol 0.25 mcg PO DAILY cholecalciferol (vitamin D3) 25 mcg PO Q48H cinacalcet 30 mg PO DAILY clonidine HCl 0.3 mg PO TID glimepiride 1 mg PO DAILY guaifenesin ER 1,200 mg PO BID PRN hydralazine 100 mg PO TID labetalol 400 mg PO BID lancets (FreeStyle Lancets) As directed lidocaine 5% 1 patch topical DAILY losartan 100 mg PO DAILY oxycodone-acetaminophen 5-325 mg 1 tab PO Q8H PRN simvastatin 20 mg PO BEDTIME sitagliptin phosphate (Januvia) 25 mg (1/2 x 50 mg) PO DAILY zolpidem 10 mg PO BEDTIME PRN HPI Follow up post CardioMEMs HPI Details Lewis is a 67-year-old male with past medical? history of obesity, hypertension, diabetes, chronic kidney disease, smoking, first-degree AV block, right bundle branch block, obstructive sleep apnea, diastolic heart failure who recently underwent a CardioMEMS device insertion and presents for follow-up. today he reports he has been doing well since his procedure. Overall he feels well. He denies having chest discomfort at rest or with activity. He does have some shortness of breath with exertion which is not new. He denies PND, orthopnea. He does have some swelling in his left lower leg. His right groin site is feeling well. No palpitations, dizziness, presyncope, syncope, falls. Taking all meds as directed. Has been doing his CardioMEMS readings as directed. At times he has difficulty getting in actual reading on his pillow . is present REPLACED BY [facility] Medical History CKD (chronic kidney disease) COPD (chronic obstructive pulmonary disease) COPD (chronic obstructive pulmonary disease) Diabetes mellitus Dyslipidemia Dyspnea on minimal exertion Elevated brain natriuretic peptide (BNP) level Hypertension Left ventricular hypertrophy Lower extremity edema Obesity Obesity (BMI 30-39.9) LEONEL (obstructive sleep apnea) Smoker Smoking Surgical History No pertinent past surgical history Family History Father No problems noted. Mother Diabetes Family/Other No problems noted. Social History Household Members: Significant Other Housing: Apartment Do you presently have visiting nurse or other home services: No Alcohol intake: current Alcohol intake frequency: a few times a month Patient Tobacco Use Status: Former Tobacco user Quit Date: 2021 e-Cigarette/Vaping Use: Never Used Second Hand Smoke Exposure: No Advance Directives Date on File: 08/23/22 service: No Current occupational status: disabled Review of Systems Const All systems reviewed & are unremarkable except as noted in HPI and below ENT Reports dizziness Card Denies chest pain, Denies chest pain at rest, Denies chest pain with activity, Denies rapid heart rate, Denies pedal edema, Denies edema, Denies leg edema, Denies lightheadedness, Denies palpitations, Denies dyspnea, Reports dyspnea on exertion and Denies orthopnea Resp Denies cough, Denies dyspnea and Reports dyspnea on exertion GI Denies hematochezia and Denies change in stool character Musc Denies abnormal gait, Reports limited range of motion, Reports muscle cramps, Denies muscle weakness, Denies numbness, Denies radiating pain into limb, Denies stiffness and Denies tingling Neuro Denies abnormal gait, Reports dizziness, Denies numbness and Denies tingling Endo Denies palpitations Physical Exam Vital Signs: Last Vital Signs Pulse 61 03/25/23 13:38 BP 130/70 03/25/23 13:38 BMI result Body Mass Index 37.6 Const General: cooperative, healthy appearing, comfortable and no acute distress Orientation/consciousness: patient oriented x3 Neck Neck: Yes normal visual inspection Resp Effort & Inspection: normal respiratory effort Auscultation: clear to auscultation bilaterally, no crackles, no rales, no rhonchi and no wheezes Cardio Jugular venous distension: no JVD Rate: regular rate Rhythm: regular rhythm Heart sounds: S1 normal heart sound present, S2 normal heart sound present, no murmurs and no rubs GI Other: obese, rounded Inspection: Yes normal to inspection Neuro General: patient oriented x3 Extrem Other: right femoral groin access site well healed, easily palpable femoral pulse General: Yes normal to inspection, No no pedal edema and No calf tenderness Psych Appearance: grossly normal Mental Status: mental status grossly normal Speech and movement: Normal speech and movement present Office Procedures EKG Details: today, read by me, normal sinus rhythm with 1 beat of second-degree heart block type 1, first-degree AV block, right bundle branch block, QTC 509 milliseconds, Falsely prolonged with wide QRS, rate 61, [id number], Complete Assessment & Plan Assessment & Plan (1) Acute exacerbation of CHF (congestive heart failure): Code(s): I50.9 - Heart failure, unspecified Plan: [facility] admission for shortness of breath, treated for COVID, COPD exacerbation and acute heart failure, September 2022. He was diuresed with caution due to chronic kidney disease. An echocardiogram done 05/01/2022 showed EF 55%, diastolic dysfunction, LVH. His last kidney function on 09/16/2022 showed creatinine was 3.72. His creatinine has been in the threes since 04/2021. He follows with Nephrology. He was discharged with Bumex 1 mg b.i.d and continues on that dose. As an outpatient he underwent a nuclear stress test on 09/26/2022 showing no infarct or ischemia. to assist with heart failure recognition and treatment he underwent placement of a CardioMEMS device on 03/13/2023. His readings have been monitored daily and a remaining stable. Today he reports that he continues to have chronic shortness of breath with activity but overall his breathing has been stable. On examination he does not appear fluid overloaded but does have some swelling in his left lower leg which is chronic and could be related to his left knee arthritis. He has no right leg edema, no JVD or rales. Will continue on Bumex. will continue to follow CardioMEMS readings and adjust diuretics as warranted. He does have an upcoming visit with Nephrology. Will update echocardiogram prior to his next visit. Cardiology follow-up in 3 months, sooner if needed (2) COPD (chronic obstructive pulmonary disease): Comment: HE DEFINITELY HAS CHRONIC OBSTRUCTIVE PULMONARY DISEASE, MODERATELY SEVERE, THERE WAS NO RESPONSE TO BRONCHODILATOR THERAPY. RX : I THINK AT THIS TIME HE CAN JUST USE VENTOLIN INHALER WITH A SPACING DEVICE , 2 PUFFS Q 4-6 HOURS ONLY P.R.N.. HE ALSO HAS NEBULIZER DEVICE AT HOME, WITH ALBUTEROL SOLUTION, AND AN ALTERNATIVE MAY USE THE NEBULIZER Q 4-6 HOURS P.R.N.. THERE IS NO NEED TO USE LONG-ACTING BD, OR INHALED STEROIDS. Code(s): J44.9 - Chronic obstructive pulmonary disease, unspecified Plan: Followed by pulmonology (3) Essential hypertension: Code(s): I10 - Essential (primary) hypertension Plan: normal range today. His blood pressures tend to run elevated. He continues on hydralazine, labetalol, Bumex, amlodipine, clonidine. He has advanced chronic kidney disease and follows with Nephrology as well. his EKG today does show sinus rhythm with first-degree AV block and right bundle branch block, rate 61. There is also 1 missed heartbeat in a second-degree type 1 pattern, Wenckebach. Reviewed with Dr. Kim. Will have him reduce clonidine and increase amlodipine doses. continue labetalol at current dose. He has upcoming Nephrology visit. Will plan for EKG and blood pressure check next cardiology visit. (4) Carotid stenosis: Code(s): I65.29 - Occlusion and stenosis of unspecified carotid artery Qualifiers: Laterality: left Qualified Code(s): I65.22 - Occlusion and stenosis of left carotid artery Plan: Known history of carotid stenosis. Last ultrasound done on 12/24/2021 showing right ICA 0-49% stenosis, left ICA 50-79% stenosis. He denies any neurological symptoms, vision changes. Last known LDL was well controlled. Updated labs are ordered in system. Continue statin. He tells me he cannot take any blood thinners as he has had hemoptysis in the past. will update carotid ultrasound prior to his next visit. (5) Smoker: Comment: Long-time smoker, Currently smoking 10, cigarettes a day. Trying to cut down the number of cigarettes. He knows that he should stop but cannot. Does not want any extra help. I tried to convince him to cut down the number of cigarettes. Code(s): F17.200 - Nicotine dependence, unspecified, uncomplicated (6) First degree heart block: Code(s): I44.0 - Atrioventricular block, first degree (7) RBBB: Code(s): I45.10 - Unspecified right bundle-branch block Orders: Orders CA echo transthoracic complete Today I50.33 - Acute on chronic diastolic (congestive) heart failure, Z95.818 - Presence of other cardiac implants and grafts US carotid duplex BI Today I65.29 - Occlusion and stenosis of unspecified carotid artery Medications: New amlodipine 10 mg PO DAILY 90 tabs 1RF clonidine HCl 0.2 mg PO TID 270 tabs 1RF 90 days Discontinued amlodipine Discontinued Reason: Doctor's Order 5 mg See Protocol PO DAILY 30 tabs 0RF 30 days Coding Level of Care Code Est Pt Level 4 (69058) Diagnoses Acute exacerbation of CHF (congestive heart failure) I50.9 COPD (chronic obstructive pulmonary disease) J44.9 Essential hypertension I10 Carotid stenosis I65.22 Laterality: left Smoker F17.200 First degree heart block I44.0 RBBB I45.10 CPT Codes EKG - CPT: [id number], Complete ([id number]) Time Spent (min) 30 Comment chart review, documentation, interview, assessment
[2023-03-25 13:38] VITALS: BP 130/70; PULSE 61; BMI 37.6
== END 2023-03-25 14:11 | disposition home or self-care (01) ==
PROVIDERS: PCP Internal Medicine; Visit Provider Nurse Practitioner Family
DX: I50.9 Heart failure, unspecified (principal); J44.9 Chronic obstructive pulmonary disease, unspecified; I10 Essential (primary) hypertension; I65.22 Occlusion and stenosis of left carotid artery; F17.200 Nicotine dependence, unspecified, uncomplicated; I44.0 Atrioventricular block, first degree; I45.10 Unspecified right bundle-branch block
CPT/HCPCS: 93010; 99214

== ENCOUNTER → 2023-03-25 13:13 | Outpatient (BNVA) | payer MEDICARE, MEDICAID, SELFPAY | PROVIDERS: PCP Internal Medicine; Visit Provider Nurse Practitioner Family | DX: I11.0 Hypertensive heart disease with heart failure (principal); I50.9 Heart failure, unspecified; I65.22 Occlusion and stenosis of left carotid artery; I45.10 Unspecified right bundle-branch block; I44.0 Atrioventricular block, first degree; J44.9 Chronic obstructive pulmonary disease, unspecified; Z87.891 Personal history of nicotine dependence | CPT/HCPCS: 93005; 99212 ==

== ENCOUNTER 2023-04-02 08:51 | Outpatient (REF) | payer MEDICARE, MEDICAID, SELFPAY ==
[2023-04-02 15:28] LABS: Creatinine Urine 89.17 mg/dL; Protein/Creatinine Ratio, Ur 0.55 (<0.2); Total Protein Urine Random 49 mg/dL (<12)
[2023-04-02 21:58] LABS: Anion Gap 15 (12-20); Blood Urea Nitrogen 49 mg/dL (9-16); Calcium 8.3 mg/dL (8.4-10.2); Carbon Dioxide 23 mmol/L (22-29); Chloride 106 mmol/L (96-108); Estimated Glomerular Filt Rate 16; Glucose Fasting 139 mg/dL (60-99); Potassium 3.9 mmol/L (3.3-5.1); Sodium 140 mmol/L (135-145)
[2023-04-05 05:43] LABS: Calcium (PTHI) 8.1 mg/dL (8.6-10.3); PTHI 83 pg/mL (16-77)
== END 2023-04-02 08:52 | disposition home or self-care (01) ==
LOC: HO.CHCLDS 08:51
PROVIDERS: Visit Provider Internal Medicine Hypertension Specialist
DX: E11.22 Type 2 diabetes mellitus with diabetic chronic kidney disease (principal); N18.4 Chronic kidney disease, stage 4 (severe)
CPT/HCPCS: 36415; 80048; 83970; 84156

== ENCOUNTER 2023-04-09 09:38 | Outpatient (REF) | payer MEDICARE, MEDICAID, SELFPAY ==
--- NOTE | ~2023-04-09 | US_ITS ---
EXAMINATION: US EXTRACRANIAL CAROTID DUPLEX, BILATERAL CLINICAL INFORMATION: Carotid stenosis COMPARISON: Carotid duplex on 12/24/2021 TECHNIQUE: Real-time ultrasound and Doppler techniques (integrating B-mode 2-D vascular images, Doppler spectral analysis and color-flow Doppler imaging) were utilized to interrogate the extracranial carotid arteries, the vertebral arteries and proximal subclavian arteries bilaterally. The degree of stenosis is determined by criteria similar to NASCET. FINDINGS: Right Side: 1. There is moderate atherosclerotic plaque seen in the bifurcation/proximal ICA region. 2. The common carotid artery PSV proximally is 92 cm/s and distally 103 cm/s. 3. The proximal internal carotid artery velocities are 140 cm/s systolic and 37 cm/s diastolic. 4. The proximal external carotid artery PSV is 170 cm/s. 5. The vertebral artery shows antegrade flow. 6. The subclavian artery waveforms are normal. Left Side: 1. There is moderate atherosclerotic plaque seen in the bifurcation/proximal ICA region. 2. The common carotid artery PSV proximally is 113 cm/s and distally 102 cm/s. 3. The proximal internal carotid artery velocities are 205 cm/s systolic and 76 cm/s diastolic. 4. The proximal external carotid artery PSV is 153 cm/s. 5. The vertebral artery shows antegrade flow. 6. The subclavian artery waveforms are normal. US/US carotid duplex BI IMPRESSION: 1. RIGHT: Moderate, hemodynamically significant stenosis of the proximal right internal carotid artery corresponding to a 50-79% stenosis by velocity criteria. 2. LEFT: Moderate, hemodynamically significant stenosis of the proximal left internal carotid artery corresponding to a 50-79% stenosis by velocity criteria. 3. There is progression of category disease of the right compared to the exam in 2021.
== END 2023-04-09 09:39 | disposition home or self-care (01) ==
LOC: HO.US 09:38
PROVIDERS: Visit Provider Nurse Practitioner Family
DX: I65.22 Occlusion and stenosis of left carotid artery (principal)
CPT/HCPCS: 93880

== ENCOUNTER → 2023-04-14 23:59 | Outpatient (BNV) | payer MEDICARE, MEDICAID, SELFPAY ==
--- NOTE | 2023-04-24 12:57 | MHC.OFFVIS ---
Intake Intake Visit Reasons: Cardiomem- St Jr Allergies aspirin Adverse Reaction (Unknown, Verified 04/16/23 08:55) nose bleeds metformin Adverse Reaction (Unknown, Verified 04/16/23 08:55) hypoglycemia warfarin [From Coumadin] Adverse Reaction (Unknown, Verified 04/16/23 08:55) Nose Bleed apixaban Adverse Reaction (Verified 04/16/23 08:55) Nose Bleed clopidogrel Adverse Reaction (Verified 04/16/23 08:55) Nose Bleed PFSH Medical History CKD (chronic kidney disease) COPD (chronic obstructive pulmonary disease) COPD (chronic obstructive pulmonary disease) Diabetes mellitus Dyslipidemia Dyspnea on minimal exertion Elevated brain natriuretic peptide (BNP) level Hypertension Left ventricular hypertrophy Lower extremity edema Obesity Obesity (BMI 30-39.9) LEONEL (obstructive sleep apnea) Smoker Smoking Surgical History No pertinent past surgical history Family History Father No problems noted. Mother Diabetes Family/Other No problems noted. Social History Household Members: Significant Other Housing: Apartment Do you presently have visiting nurse or other home services: No Alcohol intake: current Alcohol intake frequency: a few times a month Patient Tobacco Use Status: Former Tobacco user Quit Date: 2021 e-Cigarette/Vaping Use: Never Used Second Hand Smoke Exposure: No Advance Directives Date on File: 08/23/22 service: No Current occupational status: disabled Office Procedures Cardiac Device Check Cardiac Device Check Details: Monitoring period dates: - 04/14/23 Optimal PA pressure range:PAD goal set at 16mmhg Procedure code: 37218 BACKGROUND: Lewis is implanted with the CardioMEMS PA Sensor.? I use this technology to monitor PA pressures on a weekly basis to ensure patients are within their optimal range to prevent decompensation.? SUMMARY:? I utilized the remote monitoring platform ([email or web address]) to set optimal targets for pulmonary artery pressure thresholds as part of acute and chronic management of patient?s heart failure. During the period indicated above, I monitored the patient?s pulmonary artery pressures weekly via trend analysis and notification reports which provide alerts when patient?s PA pressures were outside of range to prompt immediate action in medication changes and communications.? The weekly reports are archived in the [employer] system which serve as a parallel record to document weekly PA pressures, medication changes, and clinical notes. I have reviewed readings on 03/16. 03/20, 03/24, 03/28, 04/04, 04/09, 04/14. His PAD has ranged between 15-23mmhg. No HF admits. No diuretic changes. 31972 - Remote monitoring of wireless pulmonary artery pressure sensor Procedure code (CPT) selection complete Coding Level of Care Code Procedure Only Diagnoses CPT Codes Cardiac Device Check - Cardiac Device 17: 14822 - Remote monitoring of wireless pulmonary artery pressure sensor ([id number])
== END ==
PROVIDERS: PCP Internal Medicine; Visit Provider Nurse Practitioner Family
DX: I50.33 Acute on chronic diastolic (congestive) heart failure (principal); Z95.818 Presence of other cardiac implants and grafts
CPT/HCPCS: 93264

== ENCOUNTER → 2023-04-16 08:42 | Outpatient (BNVA) | payer MEDICARE, MEDICAID, SELFPAY | PROVIDERS: PCP Internal Medicine; Referring Provider Internal Medicine; Visit Provider Nurse Practitioner Family ==

== ENCOUNTER → 2023-04-25 07:41 | Outpatient (REF) | payer MEDICARE, MEDICAID, SELFPAY ==
--- NOTE | 2023-04-25 07:44 | CA_ITS ---
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 There is severely increased left ventricular wall thickness. The visually estimated ejection fraction is between 60-65%. - E/E prime ratio is between 8 and 15 consistent with indeterminate filling pressures. - The left atrium is moderately dilated. - There is mild dilatation of the ascending aorta measuring 3.40 cm. Findings Left Ventricle Normal left ventricular size and systolic function. There is severely increased left ventricular wall thickness. The visually estimated ejection fraction is between 60-65%. There is no evidence of regional wall motion abnormalities. Abnormal diastolic function is noted. Spectral Doppler is indicative of an impaired relaxation filling pattern. E/E prime ratio is between 8 and 15 consistent with indeterminate filling pressures. Right Ventricle Normal right ventricular cavity size and systolic function. Atria The left atrium is moderately dilated. Aortic Valve Normal aortic valve structure and function. There is no aortic valve stenosis. There is no aortic valve regurgitation. Mitral Valve The mitral valve appears normal. There is mild mitral valve regurgitation. There is no mitral valve stenosis. Pulmonic Valve The pulmonic valve is normal. There is trace pulmonic valve regurgitation. Tricuspid Valve Normal tricuspid valve structure and function. There is trace tricuspid valve regurgitation. Normal right atrial pressure. There is no evidence of pulmonary hypertension. Great Vessels There is mild dilatation of the ascending aorta measuring 3.40 cm. The visualized portions of the pulmonary artery and branches are normal. Venous The inferior vena cava is normal in size and collapses greater than 50% with inspiration. Pericardium/Pleural There is no evidence of pericardial effusion. Prior Study Comparison Changes noted compared to prior study dated: 05/01/2022. LV function normal, severe LV wall thickness. Measurements 2D Linear Measurements IVSd: 1.67 0.6-0.9/0.6-1.0 cm LVIDd: 4.32 3.9-5.3/4.2-5.9 cm LVIDd Index: 1.97 2.4-3.2/2.2-3.1 cm/m2 LVIDs: 2.93 2.0-3.6 cm LVPWd: 1.52 0.7-1.1 cm Ao Root: 3.70 2.1-3.5 cm LA Diam: 4.70 2.7-3.8/3.0-4.0 cm LAIDs Index: 2.15 1.5-2.3 cm/m2 LV Mass: 356.66 67-162/88-224 g LV Mass Index: 162.86 43-95/49-115 g/m2 LVOT Diam: 2.30 3.0+(-)1.3 cm 2D Systolic Function EF 4C: 68.10 >55% EF 2C: 47.20 >55% EF BiP: 56.70 >55% Mitral Valve MV Pk E: 0.48 MV PK A: 0.77 MV Decel Time: 218.00 E/A: 0.60 E'Lateral: 3.81 E'Medial: 4.35 E/E' Med: 11.10 E/E' Lat: 12.70 PHT: 64.00 MVA PHT: 3.44 Decel Gaston: 2.22 Aortic Valve AoV Pk Jose: 1.54 AoV Mn Jose: 1.02 AoV VTI: 0.34 AoV Pk Grad: 9.00 Aov Mn Grad: 5.00 EUGENE Cont.VTI: 2.47 LVOT LVOT Pk Jose: 0.98 LVOT Mn Jose: 0.58 LVOT VTI: 0.20 LVOT Pk Grad: 4.00 LVOT Mn Grad: 2.00 LVOT Diam: 2.30 LVOT Area: 4.15 Diastolic Function MV Pk E: 0.48 MV Pk A: 0.77 E/A: 0.60 E'Medial: 4.35 E/E' Med: 11.10 E' Laterial: 3.81 E/E' Lat: 12.70 Right Ventricle TAPSE (mm): 28.00 Tricuspid Valve TR Pk Jose: 2.35 TR Pk Grad: 22.00 RA Press: 3.00 RVSP: 25.00 Great Vessels Aorta Ao Root-2D: 3.70 2.0-3.7 cm Ao Asc: 3.40 2.1-3.4 cm Pulmonary Valve PV Pk Jose: 1.26 Peak PV Grad: 6.00 Updated in Other Vendor System with Status of Final Olman Dunbar MD electronically signed on 04/27/2023 6:29:44 PM with status of Final
== END ==
LOC: HO.CARD 07:41
PROVIDERS: Visit Provider Nurse Practitioner Family
DX: I50.33 Acute on chronic diastolic (congestive) heart failure (principal); Z95.818 Presence of other cardiac implants and grafts
CPT/HCPCS: 93306

== ENCOUNTER → 2023-04-25 07:44 | Outpatient (BNV) | payer MEDICARE, MEDICAID, SELFPAY | PROVIDERS: Visit Provider Internal Medicine Cardiovascular Disease | DX: I34.0 Nonrheumatic mitral (valve) insufficiency (principal) | CPT/HCPCS: 93306 ==

== ENCOUNTER 2023-05-08 08:58 | Outpatient (AMB) | payer MEDICARE, MEDICAID, SELFPAY ==
[2023-05-08 08:58] VITALS: BP 132/84; PULSE 71; O2SAT 98; BMI 37.6
--- NOTE | 2023-05-08 08:58 | MHC.OFFVIS ---
Intake Vital Signs 05/08/23 08:58 05/08/23 09:04 Height 5 ft 7 in Weight 240 lb BMI 37.6 BP 132/84 114/78 Blood Pressure Location Rt brachial Lt brachial Position Sitting Sitting Pulse 71 Pulse Source Pulse Oximeter Pulse Oximetry (%) 98 Oxygen Delivery Method Room Air Intake Visit Reasons: follow up s/p carotid 04/09 (ordered by Marisela) Intake Note: Pt presents to the office today for a follow up s/p carotid on 04/09. Pt states he is feeling good. Pt denies dizziness, blurred vision or loss of balance. Allergies aspirin Adverse Reaction (Unknown, Verified 05/08/23 08:58) nose bleeds metformin Adverse Reaction (Unknown, Verified 05/08/23 08:58) hypoglycemia warfarin [From Coumadin] Adverse Reaction (Unknown, Verified 05/08/23 08:58) Nose Bleed apixaban Adverse Reaction (Verified 05/08/23 08:58) Nose Bleed clopidogrel Adverse Reaction (Verified 05/08/23 08:58) Nose Bleed HPI follow up s/p carotid 04/09 (ordered by Marisela) HPI Details Very pleasant 67-year-old gentleman presents for follow-up regarding carotid stenosis. He reports no significant issues in terms of his carotids. He does report that he quit smoking about 8 months prior. At that time he was actually admitted to the hospital with pneumonia shortness of breath and Congestive heart failure exacerbation. Back in February he actually had placement of a CardioMEMS monitor. He reports that he is doing somewhat better. I did congratulate him on not smoking for the last 8 months. In terms of his carotids he denies any lateralizing signs or symptoms no speech disturbances or visual deficits. He now presents for carotid surveillance follow-up with ultrasound. PFSH Medical History CKD (chronic kidney disease) COPD (chronic obstructive pulmonary disease) COPD (chronic obstructive pulmonary disease) Diabetes mellitus Dyslipidemia Dyspnea on minimal exertion Elevated brain natriuretic peptide (BNP) level Hypertension Left ventricular hypertrophy Lower extremity edema Obesity Obesity (BMI 30-39.9) LEONEL (obstructive sleep apnea) Smoker Smoking Surgical History No pertinent past surgical history Family History Father No problems noted. Mother Diabetes Family/Other No problems noted. Social History Household Members: Significant Other Housing: Apartment Do you presently have visiting nurse or other home services: No Alcohol intake: current Alcohol intake frequency: a few times a month Patient Tobacco Use Status: Former Tobacco user Quit Date: 2021 e-Cigarette/Vaping Use: Never Used Second Hand Smoke Exposure: No Advance Directives Date on File: 08/23/22 service: No Current occupational status: disabled Review of Systems Const All systems reviewed & are unremarkable except as noted in HPI and below Reports no additional complaints ENT Reports Normal hearing present Card Denies chest pain, Denies chest pain at rest, Denies chest pain with activity and Denies pedal edema Resp Denies cough GI Denies abdominal pain Musc Denies abnormal gait, Denies muscle cramps and Denies radiating pain into limb Skin/Breast Denies skin ulcer and Denies wounds Neuro Reports Normal hearing present and Denies abnormal gait Psych Reports no additional complaints Physical Exam Vital Signs: Last Vital Signs Pulse 71 05/08/23 08:58 BP 114/78 05/08/23 09:04 Pulse Ox 98 05/08/23 08:58 Oxygen Delivery Method Room Air 05/08/23 08:58 BMI result Body Mass Index 37.6 Const General: cooperative, healthy appearing and comfortable Orientation/consciousness: oriented to person, oriented to place and oriented to time HEENT Head: Yes normal to inspection Neck Neck: Yes normal visual inspection Carotids: no bruits Chest Chest palpation & inspection: normal inspection of the chest Resp Effort & Inspection: normal respiratory effort and able to speak in complete sentences Auscultation: clear to auscultation bilaterally, no crackles, no rales, no rhonchi and no wheezes Cardio Rate: regular rate Rhythm: regular rhythm Heart sounds: S1 normal heart sound present and S2 normal heart sound present Bruits: no carotid bruits Peripheral pulses: Peripheral pulses 2+ throughout GI Inspection: Yes normal to inspection Skin Wounds: no wounds Hair: normal Neuro General: oriented to person, oriented to place and oriented to time Cranial nerves: Yes CN's II-XII intact bilaterally and Yes Normal hearing present Cognition (Neuro): normal cognition Motor exam (neuro): 5/5 motor strength present throughout Extrem Other: venous exam: No significant superficial varicosities or spider telangiectasias, minimal edema General: No clubbing, No cyanosis and No edema Psych Appearance: grossly normal Mental Status: mental status grossly normal Speech and movement: Normal speech and movement present Results Reviewed Results Reviewed: Carotid testing dated 04/09/2023 demonstrates bilateral 50-79% stenosis with peak systolic on the right of 140 and on the left of 205. This is a change from prior study but velocities are fairly low that it appears to be closer to the 50% side bilaterally. Assessment & Plan Assessment & Plan (1) Carotid stenosis: Code(s): I65.29 - Occlusion and stenosis of unspecified carotid artery Qualifiers: Laterality: left Qualified Code(s): I65.22 - Occlusion and stenosis of left carotid artery Plan: In short patient has asymptomatic carotid disease. We have reviewed signs and symptoms of a stroke. We also discussed risk factor modification inclusive a healthy diet low in cholesterol. The patient will follow up with us with surveillance ultrasound of the carotids 1 year. Should there be any changes or signs or symptoms of a stroke we will be happy to see them back sooner. Thank you for allowing us to participate in this patient's care. If there are any questions or concerns please do not hesitate to contact us. Orders: Orders US carotid duplex BI 364 Days I65.22 - Occlusion and stenosis of left carotid artery Coding Level of Care Code Est Pt Level 4 (03552) Diagnoses Carotid stenosis I65.22 Laterality: left
[2023-05-08 09:04] VITALS: BP 114/78
== END 2023-05-08 09:36 | disposition home or self-care (01) ==
PROVIDERS: PCP Internal Medicine; Visit Provider Surgery Vascular Surgery
DX: I65.22 Occlusion and stenosis of left carotid artery (principal)
CPT/HCPCS: 99213

== ENCOUNTER → 2023-05-08 08:58 | Outpatient (BNVA) | payer MEDICARE, MEDICAID, SELFPAY | PROVIDERS: PCP Internal Medicine; Visit Provider Surgery Vascular Surgery | DX: I65.22 Occlusion and stenosis of left carotid artery (principal) | CPT/HCPCS: 99212 ==

== ENCOUNTER → 2023-05-15 23:59 | Outpatient (BNV) | payer MEDICARE, MEDICAID, SELFPAY ==
--- NOTE | 2023-05-27 18:25 | A.OFFVIS_ITS ---
Intake Intake Visit Reasons: Remote CardioMEMS- St. Jr Allergies aspirin Adverse Reaction (Unknown, Verified 05/08/23 08:58) nose bleeds metformin Adverse Reaction (Unknown, Verified 05/08/23 08:58) hypoglycemia warfarin [From Coumadin] Adverse Reaction (Unknown, Verified 05/08/23 08:58) Nose Bleed apixaban Adverse Reaction (Verified 05/08/23 08:58) Nose Bleed clopidogrel Adverse Reaction (Verified 05/08/23 08:58) Nose Bleed PFSH Medical History CKD (chronic kidney disease) COPD (chronic obstructive pulmonary disease) COPD (chronic obstructive pulmonary disease) Diabetes mellitus Dyslipidemia Dyspnea on minimal exertion Elevated brain natriuretic peptide (BNP) level Hypertension Left ventricular hypertrophy Lower extremity edema Obesity Obesity (BMI 30-39.9) LEONEL (obstructive sleep apnea) Smoker Smoking Surgical History No pertinent past surgical history Family History Father No problems noted. Mother Diabetes Family/Other No problems noted. Social History Household Members: Significant Other Housing: Apartment Do you presently have visiting nurse or other home services: No Alcohol intake: current Alcohol intake frequency: a few times a month Patient Tobacco Use Status: Former Tobacco user Quit Date: 2021 e-Cigarette/Vaping Use: Never Used Second Hand Smoke Exposure: No Advance Directives Date on File: 08/23/22 service: No Current occupational status: disabled Office Procedures Cardiac Device Check Cardiac Device Check Details: Monitoring period dates:04/15/23 - 05/15/23 Optimal PA pressure range: PAD goal 16mmhg Procedure code: 56783 BACKGROUND: Lewis is implanted with the CardioMEMS PA Sensor.? I use this technology to monitor PA pressures on a weekly basis to ensure patients are within their optimal range to prevent decompensation.? SUMMARY:? I utilized the remote monitoring platform ([email or web address]) to set optimal targets for pulmonary artery pressure thresholds as part of acute and chronic management of patient?s heart failure. During the period indicated above, I monitored the patient?s pulmonary artery pressures weekly via trend analysis and notification reports which provide alerts when patient?s PA pressures were outside of range to prompt immediate action in medication changes and communications.? The weekly reports are archived in the [employer] system which serve as a parallel record to document weekly PA pressures, medication changes, and clinical notes. I have reviewed readings on 04/15, 04/20, 04/27, 05/04, 05/09, 05/13. His PAD has ranged 15-21mmhg. No HF admits. 04080 - Remote monitoring of wireless pulmonary artery pressure sensor Procedure code (CPT) selection complete Coding Level of Care Code Procedure Only CPT Codes Cardiac Device Check - Cardiac Device 17: 83355 - Remote monitoring of wireless pulmonary artery pressure sensor ([id number])
== END ==
PROVIDERS: PCP Internal Medicine; Visit Provider Nurse Practitioner Family
DX: I50.33 Acute on chronic diastolic (congestive) heart failure (principal); Z95.818 Presence of other cardiac implants and grafts
CPT/HCPCS: 93264

== ENCOUNTER 2023-05-29 08:11 | Outpatient (REF) | payer MEDICARE, MEDICAID, SELFPAY ==
[2023-05-29 14:48] LABS: Anion Gap 14 (12-20); Blood Urea Nitrogen 46 mg/dL (9-16); Calcium 8.4 mg/dL (8.4-10.2); Carbon Dioxide 25 mmol/L (22-29); Chloride 107 mmol/L (96-108); Estimated Glomerular Filt Rate 15; Glucose Random 153 mg/dL (60-115); Sodium 142 mmol/L (135-145)
== END 2023-05-29 08:12 | disposition home or self-care (01) ==
LOC: HO.CHCLDS 08:11
PROVIDERS: Visit Provider Internal Medicine Hypertension Specialist
DX: N18.4 Chronic kidney disease, stage 4 (severe) (principal)
CPT/HCPCS: 36415; 80048; 99212

== ENCOUNTER 2023-05-29 09:38 | Outpatient (AMB) | payer MEDICARE, MEDICAID, SELFPAY ==
[2023-05-29 09:53] VITALS: BP 122/78; PULSE 64; O2SAT 94; BMI 37.4
--- NOTE | 2023-05-29 09:53 | MHC.OFFVIS ---
Intake Vital Signs 05/29/23 09:53 Height 5 ft 7 in Weight 239 lb BMI 37.4 BP 122/78 Blood Pressure Location Lt brachial Position Sitting Pulse 64 Pulse Source Pulse Oximeter Pulse Oximetry (%) 94 Oxygen Delivery Method Room Air Intake Visit Reasons: COPD Intake Note: pt is here for follow up and states his breathing has been fine. Central Office Operator Required: No Allergies aspirin Adverse Reaction (Unknown, Verified 05/29/23 10:08) nose bleeds metformin Adverse Reaction (Unknown, Verified 05/29/23 10:08) hypoglycemia warfarin [From Coumadin] Adverse Reaction (Unknown, Verified 05/29/23 10:08) Nose Bleed apixaban Adverse Reaction (Verified 05/29/23 10:08) Nose Bleed clopidogrel Adverse Reaction (Verified 05/29/23 10:08) Nose Bleed Medication List - Last Reconciled 05/29/23 by Seble Montejo MD acetaminophen (Tylenol) 650 mg PO Q6H PRN blood-glucose meter (FreeStyle Lite Meter kit) As directed bumetanide 1 mg PO BID bumetanide 0.5 mg PO DAILY calcitriol 0.25 mcg PO DAILY cholecalciferol (vitamin D3) 25 mcg PO Q48H cinacalcet 30 mg PO DAILY clonidine HCl 0.2 mg PO TID 90 days glimepiride 1 mg PO DAILY hydralazine 100 mg PO TID labetalol 400 mg PO BID lancets (FreeStyle Lancets) As directed lidocaine 5% 1 patch topical DAILY PRN losartan 100 mg PO DAILY oxycodone-acetaminophen 5-325 mg 1 tab PO Q8H PRN simvastatin 20 mg PO BEDTIME sitagliptin phosphate (Januvia) 25 mg (1/2 x 50 mg) PO DAILY zolpidem 10 mg PO BEDTIME Do you need a note to return to daycare/school/sports/work: No HPI COPD HPI Details THIS 67 YEARS OLD GENTLEMAN COMES AFTER 6 MONTHS FOR FOLLOW-UP. HE HAS A MILD CASE OF OBSTRUCTIVE SLEEP APNEA AND IS TREATING WITH CONSERVATIVE MEASURES. HE SLEEPS IN LATERAL POSITION AND HAS TRY TO LOSE SOME WEIGHT. CLAIMS THAT HE SLEEPS GOOD. EVERY NIGHT AND HAS NO DAYTIME SLEEPINESS COPD IS ALSO MILD AND HE USES ALBUTEROL ONLY ONCE. IN A WHILE HE HAS HAD NO ACUTE INFECTION. OR EXACERBATION OVERALL HE IS STAYING VERY STABLE. [facility] Medical History Obesity (BMI 30-39.9) Elevated brain natriuretic peptide (BNP) level Lower extremity edema COPD (chronic obstructive pulmonary disease) LEONEL (obstructive sleep apnea) Dyspnea on minimal exertion COPD (chronic obstructive pulmonary disease) Smoker Left ventricular hypertrophy Smoking CKD (chronic kidney disease) Obesity Dyslipidemia Hypertension Diabetes mellitus Surgical History No pertinent past surgical history Family History Father No problems noted. Mother Diabetes Family/Other No problems noted. Social History Household Members: Significant Other Housing: Apartment Do you presently have visiting nurse or other home services: No Alcohol intake: current Alcohol intake frequency: a few times a month Patient Tobacco Use Status: Former Tobacco user Quit Date: 2021 e-Cigarette/Vaping Use: Never Used Second Hand Smoke Exposure: No Advance Directives Date on File: 08/23/22 service: No Current occupational status: disabled Review of Systems Const All systems reviewed & are unremarkable except as noted in HPI and below Eyes Reports no additional complaints ENT Reports no additional complaints Card Denies chest pain, Denies irregular heart rhythm, Denies leg edema and Reports dyspnea on exertion Resp Reports as per HPI and Reports dyspnea on exertion GI Reports no additional complaints Reports no additional complaints Musc Reports no additional complaints Skin/Breast Reports system reviewed and no additional complaints, except as documented Neuro Reports no additional complaints Psych Reports no additional complaints Physical Exam Vital Signs: Last Vital Signs Pulse 64 05/29/23 09:53 BP 122/78 05/29/23 09:53 Pulse Ox 94 05/29/23 09:53 Oxygen Delivery Method Room Air 05/29/23 09:53 BMI result Body Mass Index 37.4 He is grossly obese especially with protuberant abdomen, Large and round face. Sitting comfortably., but was noted to be short of breath on minimal walking Const General: comfortable, no acute distress, alert and awake Orientation/consciousness: patient oriented x3 HEENT Head: Yes normal to inspection General nose exam: No nasal polyps present and No nasal discharge present Face and sinus: Yes sinuses nontender Mouth: oropharynx normal Throat: Yes posterior oropharynx normal Eyes General: appearance normal, both eyes and all related structures Neck Neck: Yes normal visual inspection, Yes no lymphadenopathy, Yes trachea midline and Yes no JVD Thyroid: Thyroid normal Chest Chest palpation & inspection: normal inspection of the chest, normal palpation of entire chest wall and no tenderness Resp Other: Percussion note is resonant. Breath sounds are decreased over both basilar areas, Respiratory excursions are diminished. No crepitations or wheezes are heard. Cardio Palpation: normal PMI Rate: regular rate Rhythm: regular rhythm Heart sounds: no gallops and no murmurs GI Palpation (GI): Soft to palpation, nontender, No hepatosplenomegaly present, no masses and Other GI palpation findings present (Abdomen is obese and protuberant) Auscultation: normal bowel sounds Back/Spine/Pelvis Thoracic/Lumbar Spine: thoracic and lumbar spine normal to inspection and thoraco-lumbar ROM limited Skin General skin exam: no rashes or lesions noted Neuro General: patient oriented x3 and no focal motor deficits Cranial nerves: Yes CN's II-XII intact bilaterally Extrem General: Yes normal to inspection, Yes no clubbing, cyanosis or edema and Yes no calf tenderness Psych Appearance: grossly normal and well kempt Speech and movement: Normal speech and movement present Assessment & Plan Assessment & Plan (1) LEONEL (obstructive sleep apnea): Comment: IS A KNOWN CASE OF OBSTRUCTIVE SLEEP APNEA, MILD. HAS NOT BEEN ABLE TO USE CPAP. BUT HE DOES THE SLEEP IN LATERAL POSITION AND SLEEPS WELL. DENIES ANY EXCESSIVE SAYS DAYTIME SLEEPINESS. Code(s): G47.33 - Obstructive sleep apnea (adult) (pediatric) (2) COPD (chronic obstructive pulmonary disease): Comment: HE DEFINITELY HAS CHRONIC OBSTRUCTIVE PULMONARY DISEASE, MODERATELY SEVERE, THERE WAS NO RESPONSE TO BRONCHODILATOR THERAPY. RX : VENTOLIN HFA I.E. 2 PUFFS Q 4-6 HOURS ONLY P.R.N.. USE WITH A SPACER.. HE ALSO HAS NEBULIZER DEVICE AT HOME, WITH ALBUTEROL SOLUTION, AND AN ALTERNATIVE MAY USE THE NEBULIZER Q 4-6 HOURS P.R.N.. HE DOES NOT NEED TO USE ANY LONG-ACTING BRONCHODILATOR. WILL BE OKAY TO COME ONCE A YEAR FOR FOLLOW-UP AND ALSO NEEDED. Code(s): J44.9 - Chronic obstructive pulmonary disease, unspecified Coding Level of Care Code Est Pt Level 3 (36108) Diagnoses LEONEL (obstructive sleep apnea) G47.33 COPD (chronic obstructive pulmonary disease) J44.9
== END 2023-05-29 10:39 | disposition home or self-care (01) ==
PROVIDERS: PCP Internal Medicine; Visit Provider Internal Medicine
DX: G47.33 Obstructive sleep apnea (adult) (pediatric) (principal); J44.9 Chronic obstructive pulmonary disease, unspecified
CPT/HCPCS: 99213

== ENCOUNTER → 2023-06-20 23:59 | Outpatient (BNV) | payer MEDICARE, MEDICAID, SELFPAY ==
--- NOTE | 2023-07-01 08:53 | MHC.OFFVIS ---
Intake Intake Visit Reasons: Remote CardioMEMS Check- [facility]. Jr Allergies aspirin Adverse Reaction (Unknown, Verified 05/29/23 10:08) nose bleeds metformin Adverse Reaction (Unknown, Verified 05/29/23 10:08) hypoglycemia warfarin [From Coumadin] Adverse Reaction (Unknown, Verified 05/29/23 10:08) Nose Bleed apixaban Adverse Reaction (Verified 05/29/23 10:08) Nose Bleed clopidogrel Adverse Reaction (Verified 05/29/23 10:08) Nose Bleed [facility] Medical History Obesity (BMI 30-39.9) Elevated brain natriuretic peptide (BNP) level Lower extremity edema COPD (chronic obstructive pulmonary disease) LEONEL (obstructive sleep apnea) Dyspnea on minimal exertion COPD (chronic obstructive pulmonary disease) Smoker Left ventricular hypertrophy Smoking CKD (chronic kidney disease) Obesity Dyslipidemia Hypertension Diabetes mellitus Surgical History No pertinent past surgical history Family History Father No problems noted. Mother Diabetes Family/Other No problems noted. Social History Household Members: Significant Other Housing: Apartment Do you presently have visiting nurse or other home services: No Alcohol intake: current Alcohol intake frequency: a few times a month Patient Tobacco Use Status: Former Tobacco user Quit Date: 2021 e-Cigarette/Vaping Use: Never Used Second Hand Smoke Exposure: No Advance Directives Date on File: 08/23/22 service: No Current occupational status: disabled Office Procedures Cardiac Device Check Cardiac Device Check Details: Monitoring period dates: 05/16/23 - Optimal PA pressure range: PAD goal 16mmhg Procedure code: 27095 BACKGROUND: Lewis is implanted with the CardioMEMS PA Sensor.? I use this technology to monitor PA pressures on a weekly basis to ensure patients are within their optimal range to prevent decompensation.? SUMMARY:? I utilized the remote monitoring platform ([employer]) to set optimal targets for pulmonary artery pressure thresholds as part of acute and chronic management of patient?s heart failure. During the period indicated above, I monitored the patient?s pulmonary artery pressures weekly via trend analysis and notification reports which provide alerts when patient?s PA pressures were outside of range to prompt immediate action in medication changes and communications.? The weekly reports are archived in the [employer] system which serve as a parallel record to document weekly PA pressures, medication changes, and clinical notes. I have reviewed readings on 05/19, 05/26, 06/01, 06/08, 06/11. PAD ranged 15-23mmhg. Medication adjustments made as needed. No HF admissions. 80172 - Remote monitoring of wireless pulmonary artery pressure sensor Procedure code (CPT) selection complete Coding Level of Care Code Procedure Only CPT Codes Cardiac Device Check - Cardiac Device 17: 37266 - Remote monitoring of wireless pulmonary artery pressure sensor ([id number])
== END ==
PROVIDERS: PCP Internal Medicine; Visit Provider Nurse Practitioner Family
DX: I50.33 Acute on chronic diastolic (congestive) heart failure (principal); Z95.818 Presence of other cardiac implants and grafts
CPT/HCPCS: 93264

== ENCOUNTER 2023-07-17 13:02 | Outpatient (AMB) | payer MEDICARE, MEDICAID, SELFPAY ==
[2023-07-17 13:16] VITALS: BP 138/68; PULSE 68; BMI 37.3
--- NOTE | 2023-07-17 13:16 | A.OFFVIS_ITS ---
Intake Vital Signs 07/17/23 13:16 Height 5 ft 7 in Weight 238 lb 1.588 oz BMI 37.3 BP 138/68 Blood Pressure Location Lt brachial Position Sitting Pulse 68 Intake Visit Reasons: 3 month follow up Intake Note: 3 month follow up Hospice Spiritual Care Coordinator Required: No Accompanied by: Self / Same As Patient Allergies aspirin Adverse Reaction (Unknown, Verified 07/17/23 13:18) nose bleeds metformin Adverse Reaction (Unknown, Verified 07/17/23 13:18) hypoglycemia warfarin [From Coumadin] Adverse Reaction (Unknown, Verified 07/17/23 13:18) Nose Bleed apixaban Adverse Reaction (Verified 07/17/23 13:18) Nose Bleed clopidogrel Adverse Reaction (Verified 07/17/23 13:18) Nose Bleed Medication List - Last Reconciled 07/17/23 by Jose Kim MD acetaminophen (Tylenol) 650 mg PO Q6H PRN blood-glucose meter (FreeStyle Lite Meter kit) As directed bumetanide 1 mg PO BID bumetanide 0.5 mg PO DAILY PRN calcitriol 0.25 mcg PO DAILY cholecalciferol (vitamin D3) 25 mcg PO Q48H cinacalcet 30 mg PO DAILY clonidine HCl 0.2 mg PO TID 90 days glimepiride 1 mg PO DAILY hydralazine 100 mg PO TID labetalol 400 mg PO BID lancets (FreeStyle Lancets) As directed lidocaine 5% 1 patch topical DAILY PRN losartan 100 mg PO DAILY oxycodone-acetaminophen 5-325 mg 1 tab PO Q8H PRN simvastatin 20 mg PO BEDTIME sitagliptin phosphate (Januvia) 25 mg (1/2 x 50 mg) PO DAILY zolpidem 10 mg PO BEDTIME HPI HPI Comments History of Present Illness Details Lewis returns for diastolic congestive heart failure. He also has CardioMEMS in place and is being monitored through that. Multiple cardiovascular risk factors including obesity, diabetes, hypertension, dyslipidemia, chronic kidney disease, obstructive sleep apnea among others. States that breathing is generally at baseline and he does not feel too bad. No angina. Leg swelling is also controlled. [facility], [facility] Medical History Obesity (BMI 30-39.9) Elevated brain natriuretic peptide (BNP) level Lower extremity edema COPD (chronic obstructive pulmonary disease) LEONEL (obstructive sleep apnea) Dyspnea on minimal exertion COPD (chronic obstructive pulmonary disease) Smoker Left ventricular hypertrophy Smoking CKD (chronic kidney disease) Obesity Dyslipidemia Hypertension Diabetes mellitus Surgical History No pertinent past surgical history Family History Father No problems noted. Mother Diabetes Family/Other No problems noted. Social History Household Members: Significant Other Housing: Apartment Do you presently have visiting nurse or other home services: No Alcohol intake: current Alcohol intake frequency: a few times a month Patient Tobacco Use Status: Former Tobacco user Quit Date: 2021 e-Cigarette/Vaping Use: Never Used Second Hand Smoke Exposure: No Advance Directives Date on File: 08/23/22 service: No Current occupational status: disabled Review of Systems Const Denies weakness ENT Denies dizziness Card Denies chest pain, Denies chest pain with activity, Denies syncope, Denies rapid heart rate, Denies pedal edema, Denies edema, Denies leg edema, Denies lightheadedness, Denies palpitations, Denies dyspnea, Denies dyspnea on exertion and Denies orthopnea Resp Denies cough, Denies dyspnea and Denies dyspnea on exertion GI Denies hematochezia and Denies change in stool character Musc Denies abnormal gait, Denies muscle cramps, Denies muscle weakness, Denies numbness, Denies radiating pain into limb and Denies tingling Neuro Denies abnormal gait, Denies dizziness, Denies syncope, Denies numbness, Denies tingling and Denies weakness Endo Denies palpitations Physical Exam Vital Signs: Last Vital Signs Pulse 68 07/17/23 13:16 BP 138/68 07/17/23 13:16 BMI result Body Mass Index 37.3 Const General: comfortable and no acute distress Orientation/consciousness: patient oriented x3 HEENT Other: Unremarkable Head: Yes normal to inspection Neck Neck: Yes normal visual inspection Chest Chest palpation & inspection: normal inspection of the chest Resp Auscultation: clear to auscultation bilaterally Cardio Palpation: normal PMI Heart sounds: S1 normal heart sound present, S2 normal heart sound present, no gallops, no murmurs and no rubs GI Palpation (GI): Soft to palpation Back/Spine/Pelvis Other: unremarkable Skin General skin exam: no rashes or lesions noted Neuro General: patient oriented x3 Extrem General: Yes normal to inspection Psych Mental Status: mental status grossly normal Assessment & Plan Assessment & Plan (1) Chronic diastolic congestive heart failure: Code(s): I50.32 - Chronic diastolic (congestive) heart failure (2) Essential hypertension: Code(s): I10 - Essential (primary) hypertension (3) CKD (chronic kidney disease) stage 4, GFR 15-29 ml/min: Code(s): N18.4 - Chronic kidney disease, stage 4 (severe) (4) Carotid stenosis: Code(s): I65.29 - Occlusion and stenosis of unspecified carotid artery Qualifiers: Laterality: left Qualified Code(s): I65.22 - Occlusion and stenosis of left carotid artery (5) First degree heart block: Code(s): I44.0 - Atrioventricular block, first degree (6) RBBB: Code(s): I45.10 - Unspecified right bundle-branch block Plan Cardiac and Pulmonary studies reviewed. Echocardiogram with LVEF of 50-55%. Severe left ventricular hypertrophy. Moderate diastolic dysfunction. No significant valvular issues. Myocardial perfusion imaging study reported to have likely normal perfusion. A prior study from 2017 also with normal perfusion; fixed inferior defect thought to be from diaphragmatic attenuation. Carotid Doppler shows moderate stenosis bilaterally. PFTs from 2018- moderately severe obstructive airway disease. No response to bronchodilator therapy. Sleep study from 2013 shows moderately severe obstructive sleep apnea. EKG shows sinus rhythm at 61/Min; ME prolongation and right bundle-branch block. Clinically, he seems euvolemic. Stable CardioMEMS readings. Overall, no specific changes made at this time. Aggressive risk factor modification. EKG/carotid Doppler can be followed periodically. Follow-up in 6 months. Orders: Orders CA echo transthoracic complete 6 Months I50.9 - Heart failure, unspecified Coding Level of Care Code Est Pt Level 4 (35097) Diagnoses Chronic diastolic congestive heart failure I50.32 Essential hypertension I10 CKD (chronic kidney disease) stage 4, GFR 15-29 ml/min N18.4 Stenosis of left carotid artery I65.22 Laterality: left First degree heart block I44.0 RBBB I45.10
== END 2023-07-17 13:32 | disposition home or self-care (01) ==
PROVIDERS: PCP Internal Medicine; Visit Provider Internal Medicine
DX: I50.32 Chronic diastolic (congestive) heart failure (principal); I12.9 Hypertensive chronic kidney disease with stage 1 through stage 4 chronic kidney disease, or unspecified chronic kidney disease; N18.4 Chronic kidney disease, stage 4 (severe); I65.22 Occlusion and stenosis of left carotid artery; I44.0 Atrioventricular block, first degree; I45.10 Unspecified right bundle-branch block
CPT/HCPCS: 99214

== ENCOUNTER → 2023-07-17 13:02 | Outpatient (BNVA) | payer MEDICARE, MEDICAID, SELFPAY | PROVIDERS: PCP Internal Medicine; Visit Provider Internal Medicine | DX: I11.0 Hypertensive heart disease with heart failure (principal); I50.32 Chronic diastolic (congestive) heart failure; I65.22 Occlusion and stenosis of left carotid artery; I44.0 Atrioventricular block, first degree; I45.10 Unspecified right bundle-branch block; N18.4 Chronic kidney disease, stage 4 (severe) | CPT/HCPCS: 99212 ==

== ENCOUNTER 2023-07-21 10:35 | Outpatient (REF) | payer MEDICARE, MEDICAID, SELFPAY ==
[2023-07-21 15:02] LABS: TSH reflex Free T4 0.46 uIU/mL (0.32-4.0)
[2023-07-21 15:36] LABS: Alanine Aminotransferase 11 U/L (0-40); Alkaline Phosphatase 85 U/L (39-117); Anion Gap 13 (12-20); Aspartate Amino Transferase 18 U/L (5-37); Bilirubin Direct 0.2 mg/dL (0.0-0.5); Bilirubin Total 0.4 mg/dL (0.0-1.0); Blood Urea Nitrogen 45 mg/dL (9-16); Calcium 8.4 mg/dL (8.4-10.2); Carbon Dioxide 25 mmol/L (22-29); Chloride 107 mmol/L (96-108); Glucose Random 92 mg/dL (60-115); Phosphorus 3.9 mg/dL (2.7-4.5); Sodium 141 mmol/L (135-145); Total Protein 7.2 g/dL (6.5-8.0)
[2023-07-21 15:39] LABS: Estimated Glomerular Filt Rate 14
== END 2023-07-21 10:36 | disposition home or self-care (01) ==
LOC: HO.CHCLDS 10:35
PROVIDERS: Visit Provider Internal Medicine
DX: L29.9 Pruritus, unspecified (principal)
CPT/HCPCS: 36415; 80048; 80076; 84100; 84443

== ENCOUNTER → 2023-07-21 23:59 | Outpatient (BNV) | payer MEDICARE, MEDICAID, SELFPAY ==
--- NOTE | 2023-08-15 15:21 | A.OFFVIS_ITS ---
Intake Intake Visit Reasons: Remote CardioMEMS Check- St. Jr Allergies aspirin Adverse Reaction (Unknown, Verified 07/17/23 13:18) nose bleeds metformin Adverse Reaction (Unknown, Verified 07/17/23 13:18) hypoglycemia warfarin [From Coumadin] Adverse Reaction (Unknown, Verified 07/17/23 13:18) Nose Bleed apixaban Adverse Reaction (Verified 07/17/23 13:18) Nose Bleed clopidogrel Adverse Reaction (Verified 07/17/23 13:18) Nose Bleed [facility] Medical History Obesity (BMI 30-39.9) Elevated brain natriuretic peptide (BNP) level Lower extremity edema COPD (chronic obstructive pulmonary disease) LEONEL (obstructive sleep apnea) Dyspnea on minimal exertion COPD (chronic obstructive pulmonary disease) Smoker Left ventricular hypertrophy Smoking CKD (chronic kidney disease) Obesity Dyslipidemia Hypertension Diabetes mellitus Surgical History No pertinent past surgical history Family History Father No problems noted. Mother Diabetes Family/Other No problems noted. Social History Household Members: Significant Other Housing: Apartment Do you presently have visiting nurse or other home services: No Alcohol intake: current Alcohol intake frequency: a few times a month Patient Tobacco Use Status: Former Tobacco user Quit Date: 2021 e-Cigarette/Vaping Use: Never Used Second Hand Smoke Exposure: No Advance Directives Date on File: 08/23/22 service: No Current occupational status: disabled Office Procedures Cardiac Device Check Cardiac Device Check Details: Monitoring period dates:06/15/23 - 07/15/23 Optimal PA pressure range: PAD goal 16mmhg Procedure code: 74204 BACKGROUND: Lewis is implanted with the CardioMEMS PA Sensor.? I use this technology to monitor PA pressures on a weekly basis to ensure patients are within their optimal range to prevent decompensation.? SUMMARY:? I utilized the remote monitoring platform ([employer]) to set optimal targets for pulmonary artery pressure thresholds as part of acute and chronic management of patient?s heart failure. During the period indicated above, I monitored the patient?s pulmonary artery pressures weekly via trend analysis and notification reports which provide alerts when patient?s PA pressures were outside of range to prompt immediate action in medication changes and communications.? The weekly reports are archived in the [employer] system which serve as a parallel record to document weekly PA pressures, medication changes, and clinical notes. I have reviewed readings on 06/20, 06/27, 07/01, 07/08, 07/14. PAD has ranged from 17 - 23 mmhg. No symptoms. No med changes. 55914 - Remote monitoring of wireless pulmonary artery pressure sensor Procedure code (CPT) selection complete Assessment & Plan Assessment & Plan (1) Presence of CardioMEMS HF system: Code(s): Z95.818 - Presence of other cardiac implants and grafts Plan: monthly report Coding Level of Care Code Procedure Only Diagnoses Presence of CardioMEMS HF system Z95.818 CPT Codes Cardiac Device Check - Cardiac Device 17: 25769 - Remote monitoring of wireless pulmonary artery pressure sensor ([id number])
== END ==
PROVIDERS: PCP Internal Medicine; Visit Provider Nurse Practitioner Family
DX: I50.32 Chronic diastolic (congestive) heart failure (principal); Z95.818 Presence of other cardiac implants and grafts
CPT/HCPCS: 93264

== ENCOUNTER → 2023-08-18 10:31 | Outpatient (BNVA) | payer MEDICARE, MEDICAID, SELFPAY | PROVIDERS: PCP Internal Medicine; Visit Provider Internal Medicine Hypertension Specialist | DX: I13.0 Hypertensive heart and chronic kidney disease with heart failure and stage 1 through stage 4 chronic kidney disease, or unspecified chronic kidney disease (principal); N18.4 Chronic kidney disease, stage 4 (severe); I50.32 Chronic diastolic (congestive) heart failure; E66.9 Obesity, unspecified; E21.3 Hyperparathyroidism, unspecified; Z68.36 Body mass index [BMI] 36.0-36.9, adult | CPT/HCPCS: 99212 ==

== ENCOUNTER 2023-08-18 10:32 | Outpatient (AMB) | payer MEDICARE, MEDICAID, SELFPAY ==
--- NOTE | 2023-08-18 10:37 | HO.NEPHOV ---
HPI HPI Comments History of Present Illness Details 67-year-old male with a history of type 2 diabetes, HTN, CKD, carotid stenosis, COPD, LEONEL not on CPAP, diastolic CHF with preserved ejection fraction, He has advanced CKD Baseline creatinine is between 3.5 and 4.0 Currently on high dose of Bumex -Takes 1mg BID No edema No dyspnea PFSH Medical History Obesity (BMI 30-39.9) Elevated brain natriuretic peptide (BNP) level Lower extremity edema COPD (chronic obstructive pulmonary disease) LEONEL (obstructive sleep apnea) Dyspnea on minimal exertion COPD (chronic obstructive pulmonary disease) Smoker Left ventricular hypertrophy Smoking CKD (chronic kidney disease) Obesity Dyslipidemia Hypertension Diabetes mellitus Surgical History No pertinent past surgical history Family History Father No problems noted. Mother Diabetes Family/Other No problems noted. Social History Household Members: Significant Other Housing: Apartment Do you presently have visiting nurse or other home services: No Alcohol intake: current Alcohol intake frequency: a few times a month Patient Tobacco Use Status: Former Tobacco user Quit Date: 2021 e-Cigarette/Vaping Use: Never Used Second Hand Smoke Exposure: No Advance Directives Date on File: 08/23/22 service: No Current occupational status: disabled Vital Signs 08/18/23 10:38 Height 5 ft 7 in Weight 234 lb BMI 36.6 BP 132/74 Blood Pressure Location Lt brachial Position Sitting Pulse 66 Pulse Source Pulse Oximeter Pulse Oximetry (%) 98 Oxygen Delivery Method Room Air Physical Exam Vital Signs: Last Vital Signs Pulse 66 08/18/23 10:38 BP 132/74 08/18/23 10:38 Pulse Ox 98 08/18/23 10:38 Oxygen Delivery Method Room Air 08/18/23 10:38 BMI result Body Mass Index 36.6 Const General: comfortable; No acute distress Orientation/consciousness: patient oriented x3 Eyes General: appearance normal, both eyes and all related structures Visual Cedillo: normal visual cedillo by confrontation Neck Neck: Yes supple and Yes no JVD Resp Effort & Inspection: normal respiratory effort and respiratory effort not decreased Auscultation: rhonchi Cardio Palpation: no palpable S3 and no palpable S4 Heart sounds: no rubs GI Inspection: Yes normal to inspection Palpation (GI): Soft to palpation Percussion: Yes normal to percussion Auscultation: normal bowel sounds General: Yes no CVA tenderness Back/Spine/Pelvis Back: no CVA tenderness Skin General skin exam: no petechiae and no purpura Neuro General: patient oriented x3 and no focal motor deficits Extrem General: No clubbing Assessment & Plan Assessment & Plan (1) CKD (chronic kidney disease) stage 4, GFR 15-29 ml/min: Code(s): N18.4 - Chronic kidney disease, stage 4 (severe) Plan: Advanced CKD in a setting of longstanding diabetes mellitus hypertension obesity. Patient creatinine is around 3.5 to 4 mg/dL. Mild bump in serum creatinine is most likely due to high-dose of diuretics. Currently he has no signs or symptoms of uremia or fluid overload. Would decrease Bumex to 1 mg q.a.m. and 1 mg every other evening. Increase him to keep monitoring his weight and watch for leg edema. Increase Bumex if he gains any weight. Continue with low-salt diet. Continue to avoid nephrotoxic agents. His was on the phone as well. We discussed the possible need for dialysis in the near future. At this point there is no absolute indication for dialysis and will continue to watch him closely. (2) Essential hypertension: Code(s): I10 - Essential (primary) hypertension Plan: BP appears well controlled. We discussed weight loss and low-salt diet again. (3) Chronic diastolic congestive heart failure: Code(s): I50.32 - Chronic diastolic (congestive) heart failure Plan: Compensated. Follows with cardiology. (4) Obesity (BMI 30-39.9): Code(s): E66.9 - Obesity, unspecified Plan: Discussed weight loss. (5) Hyperparathyroidism: Code(s): E21.3 - Hyperparathyroidism, unspecified Plan: Repeat calcium ordered. He is currently on cinacalcet and Rocaltrol. Will check PTH before next visit Orders: Orders Creatinine 2 Months N18.4 - Chronic kidney disease, stage 4 (severe) Electrolytes 2 Months N18.4 - Chronic kidney disease, stage 4 (severe) Blood Urea Nitrogen 2 Months N18.4 - Chronic kidney disease, stage 4 (severe) Calcium 2 Months N18.4 - Chronic kidney disease, stage 4 (severe) Parathyroid Hormone Intact 2 Months N18.4 - Chronic kidney disease, stage 4 (severe) Coding Level of Care Code Est Pt Level 4 (07583) Diagnoses CKD (chronic kidney disease) stage 4, GFR 15-29 ml/min N18.4 Essential hypertension I10 Chronic diastolic congestive heart failure I50.32 Obesity (BMI 30-39.9) E66.9 Hyperparathyroidism E21.3 Results Reviewed Nephrology Results: Sodium 141 mmol/L (135-145) 07/21/23 Potassium 4.0 mmol/L (3.3-5.1) 07/21/23 Chloride 107 mmol/L (96-108) 07/21/23 Carbon Dioxide 25 mmol/L (22-29) 07/21/23 BUN 45 mg/dL (9-16) H 07/21/23 Creatinine 4.27 mg/dL (0.5-1.4) H* 07/21/23 Calcium 8.4 mg/dL (8.4-10.2) 07/21/23 Phosphorus 3.9 mg/dL (2.7-4.5) 07/21/23
[2023-08-18 10:38] VITALS: BP 132/74; PULSE 66; O2SAT 98; BMI 36.6
== END 2023-08-18 10:55 | disposition home or self-care (01) ==
PROVIDERS: PCP Internal Medicine; Visit Provider Internal Medicine Hypertension Specialist
DX: I13.0 Hypertensive heart and chronic kidney disease with heart failure and stage 1 through stage 4 chronic kidney disease, or unspecified chronic kidney disease (principal); N18.4 Chronic kidney disease, stage 4 (severe); I50.32 Chronic diastolic (congestive) heart failure; E21.3 Hyperparathyroidism, unspecified; E66.9 Obesity, unspecified
CPT/HCPCS: 99214

== ENCOUNTER → 2023-08-22 23:59 | Outpatient (BNV) | payer MEDICARE, MEDICAID, SELFPAY ==
--- NOTE | 2023-09-01 12:30 | A.OFFVIS_ITS ---
Intake Intake Visit Reasons: Remote CardioMEMS- [facility]. Jr Allergies aspirin Adverse Reaction (Unknown, Verified 08/18/23 10:46) nose bleeds metformin Adverse Reaction (Unknown, Verified 08/18/23 10:46) hypoglycemia warfarin [From Coumadin] Adverse Reaction (Unknown, Verified 08/18/23 10:46) Nose Bleed apixaban Adverse Reaction (Verified 08/18/23 10:46) Nose Bleed clopidogrel Adverse Reaction (Verified 08/18/23 10:46) Nose Bleed [facility] Medical History Obesity (BMI 30-39.9) Elevated brain natriuretic peptide (BNP) level Lower extremity edema COPD (chronic obstructive pulmonary disease) LEONEL (obstructive sleep apnea) Dyspnea on minimal exertion COPD (chronic obstructive pulmonary disease) Smoker Left ventricular hypertrophy Smoking CKD (chronic kidney disease) Obesity Dyslipidemia Hypertension Diabetes mellitus Surgical History No pertinent past surgical history Family History Father No problems noted. Mother Diabetes Family/Other No problems noted. Social History Household Members: Significant Other Housing: Apartment Do you presently have visiting nurse or other home services: No Alcohol intake: current Alcohol intake frequency: a few times a month Patient Tobacco Use Status: Former Tobacco user Quit Date: 2021 e-Cigarette/Vaping Use: Never Used Second Hand Smoke Exposure: No Advance Directives Date on File: 08/23/22 service: No Current occupational status: disabled Office Procedures Cardiac Device Check Cardiac Device Check Details: Monitoring period dates: 07/16/23 - 08/15/23 Optimal PA pressure range: PAD 16mmgh Procedure code: 32167 BACKGROUND: Lewis is implanted with the CardioMEMS PA Sensor.? I use this technology to monitor PA pressures on a weekly basis to ensure patients are within their optimal range to prevent decompensation.? SUMMARY:? I utilized the remote monitoring platform ([employer]) to set optimal targets for pulmonary artery pressure thresholds as part of acute and chronic management of patient?s heart failure. During the period indicated above, I monitored the patient?s pulmonary artery pressures weekly via trend analysis and notification reports which provide alerts when patient?s PA pressures were outside of range to prompt immediate action in medication changes and communications.? The weekly reports are archived in the [employer] system which serve as a parallel record to document weekly PA pressures, medication changes, and clinical notes. I have reviewed readings on 07/18, 07/25, 07/31, 08/04, 08/10, 08/14. PAD ranged 15-18mmhg. 72609 - Remote monitoring of wireless pulmonary artery pressure sensor Procedure code (CPT) selection complete Assessment & Plan Assessment & Plan (1) Presence of CardioMEMS HF system: Code(s): Z95.818 - Presence of other cardiac implants and grafts Plan: monthly report Coding Level of Care Code Procedure Only Diagnoses Presence of CardioMEMS HF system Z95.818 CPT Codes Cardiac Device Check - Cardiac Device 17: 71648 - Remote monitoring of wireless pulmonary artery pressure sensor ([id number])
== END ==
PROVIDERS: PCP Internal Medicine; Visit Provider Nurse Practitioner Family
DX: I50.33 Acute on chronic diastolic (congestive) heart failure (principal); Z95.818 Presence of other cardiac implants and grafts
CPT/HCPCS: 93264

== ENCOUNTER → 2023-09-22 23:59 | Outpatient (BNV) | payer MEDICARE, MEDICAID, SELFPAY ==
--- NOTE | 2023-09-30 18:27 | MHC.OFFVIS ---
Intake Intake Visit Reasons: Remote CardioMEMS- St. Jr Allergies aspirin Adverse Reaction (Unknown, Verified 08/18/23 10:46) nose bleeds metformin Adverse Reaction (Unknown, Verified 08/18/23 10:46) hypoglycemia warfarin [From Coumadin] Adverse Reaction (Unknown, Verified 08/18/23 10:46) Nose Bleed apixaban Adverse Reaction (Verified 08/18/23 10:46) Nose Bleed clopidogrel Adverse Reaction (Verified 08/18/23 10:46) Nose Bleed [facility] Medical History Obesity (BMI 30-39.9) Elevated brain natriuretic peptide (BNP) level Lower extremity edema COPD (chronic obstructive pulmonary disease) LEONEL (obstructive sleep apnea) Dyspnea on minimal exertion COPD (chronic obstructive pulmonary disease) Smoker Left ventricular hypertrophy Smoking CKD (chronic kidney disease) Obesity Dyslipidemia Hypertension Diabetes mellitus Surgical History No pertinent past surgical history Family History Father No problems noted. Mother Diabetes Family/Other No problems noted. Social History Household Members: Significant Other Housing: Apartment Do you presently have visiting nurse or other home services: No Alcohol intake: current Alcohol intake frequency: a few times a month Patient Tobacco Use Status: Former Tobacco user Quit Date: 2021 e-Cigarette/Vaping Use: Never Used Second Hand Smoke Exposure: No Advance Directives Date on File: 08/23/22 service: No Current occupational status: disabled Office Procedures Cardiac Device Check Cardiac Device Check Details: Monitoring period dates:08/15/23 - 09/14/23 Optimal PA pressure range: PAD goal 16mmhg Procedure code: 51543 BACKGROUND: Lewis is implanted with the CardioMEMS PA Sensor.? I use this technology to monitor PA pressures on a weekly basis to ensure patients are within their optimal range to prevent decompensation.? SUMMARY:? I utilized the remote monitoring platform ([employer]) to set optimal targets for pulmonary artery pressure thresholds as part of acute and chronic management of patient?s heart failure. During the period indicated above, I monitored the patient?s pulmonary artery pressures weekly via trend analysis and notification reports which provide alerts when patient?s PA pressures were outside of range to prompt immediate action in medication changes and communications.? The weekly reports are archived in the [employer] system which serve as a parallel record to document weekly PA pressures, medication changes, and clinical notes. I have reviewed readings on 08/16, 08/22, 08/29, 09/03, 09/09, 09/12. His PAD readings have ranged between 16-28mmhg. Additional diuretics given with elevated readings. 07750 - Remote monitoring of wireless pulmonary artery pressure sensor Procedure code (CPT) selection complete Assessment & Plan Assessment & Plan (1) Presence of CardioMEMS HF system: Code(s): Z95.818 - Presence of other cardiac implants and grafts Plan: monthly report Coding Level of Care Code Procedure Only Diagnoses Presence of CardioMEMS HF system Z95.818 CPT Codes Cardiac Device Check - Cardiac Device 17: 93471 - Remote monitoring of wireless pulmonary artery pressure sensor ([id number])
== END ==
PROVIDERS: PCP Internal Medicine; Visit Provider Nurse Practitioner Family
DX: I50.33 Acute on chronic diastolic (congestive) heart failure (principal); Z95.818 Presence of other cardiac implants and grafts
CPT/HCPCS: 93264

== ENCOUNTER → 2023-10-24 23:59 | Outpatient (BNV) | payer MEDICARE, MEDICAID, SELFPAY ==
--- NOTE | 2023-10-28 17:51 | MHC.OFFVIS ---
Intake Intake Visit Reasons: Remote CardioMEMS Check- St. Jr Allergies aspirin Adverse Reaction (Unknown, Verified 08/18/23 10:46) nose bleeds metformin Adverse Reaction (Unknown, Verified 08/18/23 10:46) hypoglycemia warfarin [From Coumadin] Adverse Reaction (Unknown, Verified 08/18/23 10:46) Nose Bleed apixaban Adverse Reaction (Verified 08/18/23 10:46) Nose Bleed clopidogrel Adverse Reaction (Verified 08/18/23 10:46) Nose Bleed [facility] Medical History Obesity (BMI 30-39.9) Elevated brain natriuretic peptide (BNP) level Lower extremity edema COPD (chronic obstructive pulmonary disease) LEONEL (obstructive sleep apnea) Dyspnea on minimal exertion COPD (chronic obstructive pulmonary disease) Smoker Left ventricular hypertrophy Smoking CKD (chronic kidney disease) Obesity Dyslipidemia Hypertension Diabetes mellitus Surgical History No pertinent past surgical history Family History Father No problems noted. Mother Diabetes Family/Other No problems noted. Social History Household Members: Significant Other Housing: Apartment Do you presently have visiting nurse or other home services: No Alcohol intake: current Alcohol intake frequency: a few times a month Patient Tobacco Use Status: Former Tobacco user Quit Date: 2021 e-Cigarette/Vaping Use: Never Used Second Hand Smoke Exposure: No Advance Directives Date on File: 08/23/22 service: No Current occupational status: disabled Office Procedures Cardiac Device Check Cardiac Device Check Details: Monitoring period dates: 09/15/23 - 10/24/23 Optimal PA pressure range: PAD goal 16mmhg Procedure code: 09368 BACKGROUND: Lewis is implanted with the CardioMEMS PA Sensor.? I use this technology to monitor PA pressures on a weekly basis to ensure patients are within their optimal range to prevent decompensation.? SUMMARY:? I utilized the remote monitoring platform ([employer]) to set optimal targets for pulmonary artery pressure thresholds as part of acute and chronic management of patient?s heart failure. During the period indicated above, I monitored the patient?s pulmonary artery pressures weekly via trend analysis and notification reports which provide alerts when patient?s PA pressures were outside of range to prompt immediate action in medication changes and communications.? The weekly reports are archived in the [employer] system which serve as a parallel record to document weekly PA pressures, medication changes, and clinical notes. I have reviewed readings on 09/16, 09/22, 09/29, 10/02, 10/07, 10/14, 10/21. PAD has ranged between 15- 32 mmhg. His diuretics have been adjusted for elevated readings. No symptoms. 85289 - Remote monitoring of wireless pulmonary artery pressure sensor Procedure code (CPT) selection complete Assessment & Plan Assessment & Plan (1) Presence of CardioMEMS HF system: Code(s): Z95.818 - Presence of other cardiac implants and grafts Plan: monthly report Coding Level of Care Code Procedure Only Diagnoses Presence of CardioMEMS HF system Z95.818 CPT Codes Cardiac Device Check - Cardiac Device 17: 01398 - Remote monitoring of wireless pulmonary artery pressure sensor ([id number])
== END ==
PROVIDERS: PCP Internal Medicine; Visit Provider Nurse Practitioner Family
DX: I50.32 Chronic diastolic (congestive) heart failure (principal); Z95.818 Presence of other cardiac implants and grafts
CPT/HCPCS: 93264

== ENCOUNTER 2023-11-12 08:59 | Outpatient (REF) | payer MEDICARE, MEDICAID, SELFPAY ==
[2023-11-12 17:56] LABS: Anion Gap 14 (12-20); Blood Urea Nitrogen 47 mg/dL (9-16); Calcium 8.2 mg/dL (8.4-10.2); Carbon Dioxide 23 mmol/L (22-29); Chloride 107 mmol/L (96-108); Cholesterol 101 mg/dL (<200); Estimated Glomerular Filt Rate 16; HDL Cholesterol 33 mg/dL (>40); LDL Cholesterol Calculated 57 mg/dL (<100); Potassium 3.9 mmol/L (3.3-5.1); Sodium 140 mmol/L (135-145); Triglycerides 55 mg/dL (<150)
== END 2023-11-12 09:00 | disposition home or self-care (01) ==
LOC: HO.CHCLDS 08:59
PROVIDERS: Referring Provider Internal Medicine Hypertension Specialist; Visit Provider Internal Medicine
DX: E11.22 Type 2 diabetes mellitus with diabetic chronic kidney disease (principal); E11.21 Type 2 diabetes mellitus with diabetic nephropathy; I12.9 Hypertensive chronic kidney disease with stage 1 through stage 4 chronic kidney disease, or unspecified chronic kidney disease; N18.4 Chronic kidney disease, stage 4 (severe)
CPT/HCPCS: 36415; 80051; 80061; 82310; 82565; 83970; 84520

== ENCOUNTER 2023-11-17 11:08 | Outpatient (AMB) | payer MEDICARE, MEDICAID, SELFPAY ==
[2023-11-17 11:09] VITALS: BP 108/70; PULSE 69; O2SAT 96; BMI 36.8
--- NOTE | 2023-11-17 11:09 | HO.NEPHOV ---
HPI HPI Comments History of Present Illness Details 67-year-old male with a history of type 2 diabetes, HTN, CKD, carotid stenosis, COPD, LEONEL not on CPAP, diastolic CHF with preserved ejection fraction, He has advanced CKD Baseline creatinine is between 3.5 and 4.0 Currently on high dose of Bumex -Takes 1mg BID No edema No dyspnea PFSH Medical History Obesity (BMI 30-39.9) Elevated brain natriuretic peptide (BNP) level Lower extremity edema COPD (chronic obstructive pulmonary disease) LEONEL (obstructive sleep apnea) Dyspnea on minimal exertion COPD (chronic obstructive pulmonary disease) Smoker Left ventricular hypertrophy Smoking CKD (chronic kidney disease) Obesity Dyslipidemia Hypertension Diabetes mellitus Surgical History No pertinent past surgical history Family History Father No problems noted. Mother Diabetes Family/Other No problems noted. Social History Household Members: Significant Other Housing: Apartment Do you presently have visiting nurse or other home services: No Alcohol intake: current Alcohol intake frequency: a few times a month Patient Tobacco Use Status: Former Tobacco user Quit Date: 2021 e-Cigarette/Vaping Use: Never Used Second Hand Smoke Exposure: No Advance Directives Date on File: 08/23/22 service: No Current occupational status: disabled Vital Signs 11/17/23 11:09 Height 5 ft 7 in Weight 235 lb BMI 36.8 BP 108/70 Blood Pressure Location Lt brachial Position Sitting Pulse 69 Pulse Source Pulse Oximeter Pulse Oximetry (%) 96 Oxygen Delivery Method Room Air Physical Exam Vital Signs: Last Vital Signs Pulse 69 11/17/23 11:09 BP 108/70 11/17/23 11:09 Pulse Ox 96 11/17/23 11:09 Oxygen Delivery Method Room Air 11/17/23 11:09 BMI result Body Mass Index 36.8 Const General: comfortable; No acute distress Orientation/consciousness: patient oriented x3 Eyes General: appearance normal, both eyes and all related structures Visual Cedillo: normal visual cedillo by confrontation Neck Neck: Yes supple and Yes no JVD Resp Effort & Inspection: normal respiratory effort and respiratory effort not decreased Auscultation: rhonchi Cardio Palpation: no palpable S3 and no palpable S4 Heart sounds: no rubs GI Inspection: Yes normal to inspection Palpation (GI): Soft to palpation Percussion: Yes normal to percussion Auscultation: normal bowel sounds General: Yes no CVA tenderness Back/Spine/Pelvis Back: no CVA tenderness Skin General skin exam: no petechiae and no purpura Neuro General: patient oriented x3 and no focal motor deficits Extrem General: No clubbing Assessment & Plan Assessment & Plan (1) CKD (chronic kidney disease) stage 4, GFR 15-29 ml/min: Code(s): N18.4 - Chronic kidney disease, stage 4 (severe) Plan: Advanced CKD in a setting of longstanding diabetes mellitus hypertension obesity. Patient creatinine is around 3.5 to 4 mg/dL. Mild bump in serum creatinine is most likely due to high-dose of diuretics. Currently he has no signs or symptoms of uremia or fluid overload. Keep Bumex to 1 mg q.a.m. and 1 mg every other evening. Encouraged him to keep monitoring his weight and watch for leg edema. Increase Bumex if he gains any weight. Continue with low-salt diet. Continue to avoid nephrotoxic agents. At this point there is no absolute indication for dialysis and will continue to watch him closely. (2) Essential hypertension: Code(s): I10 - Essential (primary) hypertension Plan: BP appears well controlled. We discussed weight loss and low-salt diet again. (3) Chronic diastolic congestive heart failure: Code(s): I50.32 - Chronic diastolic (congestive) heart failure Plan: Compensated. Follows with cardiology. (4) Obesity (BMI 30-39.9): Code(s): E66.9 - Obesity, unspecified Plan: Discussed weight loss. (5) Hyperparathyroidism: Code(s): E21.3 - Hyperparathyroidism, unspecified Plan: Repeat calcium is 8.2 He is currently on cinacalcet and Rocaltrol. Follow PTH Orders: Orders Complete Blood Count no Diff 4 Months N18.4 - Chronic kidney disease, stage 4 (severe) Basic Metabolic Panel 4 Months N18.4 - Chronic kidney disease, stage 4 (severe) Parathyroid Hormone Intact 4 Months N18.4 - Chronic kidney disease, stage 4 (severe) Coding Level of Care Code Est Pt Level 4 (65962) Diagnoses CKD (chronic kidney disease) stage 4, GFR 15-29 ml/min N18.4 Essential hypertension I10 Chronic diastolic congestive heart failure I50.32 Obesity (BMI 30-39.9) E66.9 Hyperparathyroidism E21.3 Results Reviewed Nephrology Results: Sodium 140 mmol/L (135-145) 11/12/23 Potassium 3.9 mmol/L (3.3-5.1) 11/12/23 Chloride 107 mmol/L (96-108) 11/12/23 Carbon Dioxide 23 mmol/L (22-29) 11/12/23 BUN 47 mg/dL (9-16) H 11/12/23 Creatinine 3.86 mg/dL (0.5-1.4) H 11/12/23 Calcium 8.2 mg/dL (8.4-10.2) L 11/12/23 Phosphorus 3.9 mg/dL (2.7-4.5) 07/21/23 PTH Intact 137.0 pg/mL (8.7-77.1) H 11/12/23
== END 2023-11-17 11:24 | disposition home or self-care (01) ==
LOC: HO.HKA 11:08
PROVIDERS: PCP Internal Medicine; Visit Provider Internal Medicine Hypertension Specialist
DX: I13.0 Hypertensive heart and chronic kidney disease with heart failure and stage 1 through stage 4 chronic kidney disease, or unspecified chronic kidney disease (principal); E11.22 Type 2 diabetes mellitus with diabetic chronic kidney disease; N18.4 Chronic kidney disease, stage 4 (severe); I50.32 Chronic diastolic (congestive) heart failure; E21.3 Hyperparathyroidism, unspecified; E66.9 Obesity, unspecified; Z68.36 Body mass index [BMI] 36.0-36.9, adult
CPT/HCPCS: 99214

== ENCOUNTER → 2023-11-17 11:08 | Outpatient (BNVA) | payer MEDICARE, MEDICAID, SELFPAY | PROVIDERS: PCP Internal Medicine; Visit Provider Internal Medicine Hypertension Specialist | DX: I12.9 Hypertensive chronic kidney disease with stage 1 through stage 4 chronic kidney disease, or unspecified chronic kidney disease (principal); N18.4 Chronic kidney disease, stage 4 (severe) | CPT/HCPCS: 99212 ==

== ENCOUNTER → 2023-11-24 23:59 | Outpatient (BNV) | payer MEDICARE, MEDICAID, SELFPAY ==
--- NOTE | 2023-12-04 11:39 | A.OFFVIS_ITS ---
Intake Intake Visit Reasons: Remote CardioMEMS Check- St. Jr Allergies aspirin Adverse Reaction (Unknown, Verified 11/17/23 11:10) nose bleeds metformin Adverse Reaction (Unknown, Verified 11/17/23 11:10) hypoglycemia warfarin [From Coumadin] Adverse Reaction (Unknown, Verified 11/17/23 11:10) Nose Bleed apixaban Adverse Reaction (Verified 11/17/23 11:10) Nose Bleed clopidogrel Adverse Reaction (Verified 11/17/23 11:10) Nose Bleed [facility] Medical History Obesity (BMI 30-39.9) Elevated brain natriuretic peptide (BNP) level Lower extremity edema COPD (chronic obstructive pulmonary disease) LEONEL (obstructive sleep apnea) Dyspnea on minimal exertion COPD (chronic obstructive pulmonary disease) Smoker Left ventricular hypertrophy Smoking CKD (chronic kidney disease) Obesity Dyslipidemia Hypertension Diabetes mellitus Surgical History No pertinent past surgical history Family History Father No problems noted. Mother Diabetes Family/Other No problems noted. Social History Household Members: Significant Other Housing: Apartment Do you presently have visiting nurse or other home services: No Alcohol intake: current Alcohol intake frequency: a few times a month Patient Tobacco Use Status: Former Tobacco user Quit Date: 2021 e-Cigarette/Vaping Use: Never Used Second Hand Smoke Exposure: No Advance Directives Date on File: 08/23/22 service: No Current occupational status: disabled Office Procedures Cardiac Device Check Cardiac Device Check Details: Monitoring period dates: 10/25/23 - 11/24/23 Optimal PA pressure range:PAD goal 16mmgh Procedure code: 71605 BACKGROUND: Lewis is implanted with the CardioMEMS PA Sensor.? I use this technology to monitor PA pressures on a weekly basis to ensure patients are within their optimal range to prevent decompensation.? SUMMARY:? I utilized the remote monitoring platform (Datorama) to set optimal targets for pulmonary artery pressure thresholds as part of acute and chronic management of patient?s heart failure. During the period indicated above, I monitored the patient?s pulmonary artery pressures weekly via trend analysis and notification reports which provide alerts when patient?s PA pressures were outside of range to prompt immediate action in medication changes and communications.? The weekly reports are archived in the Datorama system which serve as a parallel record to document weekly PA pressures, medication changes, and clinical notes. I have reviewed readings on 10/27, 10/30, 11/04, 11/10, 11/17, 11/22. His PAD has ranged from 17 - 37mmhg. He has not reported symptoms. He has advanced CKD and nephrology wants his diuretic left unchanged. 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 74460 - Remote monitoring of wireless pulmonary artery pressure sensor Procedure code (CPT) selection complete Assessment & Plan Assessment & Plan (1) Presence of CardioMEMS HF system: Code(s): Z95.818 - Presence of other cardiac implants and grafts Plan: monthly report Coding Level of Care Code Procedure Only Diagnoses Presence of CardioMEMS HF system Z95.818 CPT Codes Cardiac Device Check - Cardiac Device 17: 07961 - Remote monitoring of wireless pulmonary artery pressure sensor ([id number])
== END ==
PROVIDERS: PCP Internal Medicine; Visit Provider Nurse Practitioner Family
DX: Z95.818 Presence of other cardiac implants and grafts (principal)
CPT/HCPCS: 93264

== ENCOUNTER → 2024-01-05 23:59 | Outpatient (BNV) | payer MEDICARE, MEDICAID, SELFPAY ==
--- NOTE | 2024-01-16 16:43 | A.OFFVIS_ITS ---
Intake Visit Reasons: Remote Cardiomems- St Jr Allergies aspirin Adverse Reaction (Unknown, Verified 11/17/23 11:10) nose bleeds metformin Adverse Reaction (Unknown, Verified 11/17/23 11:10) hypoglycemia warfarin [From Coumadin] Adverse Reaction (Unknown, Verified 11/17/23 11:10) Nose Bleed apixaban Adverse Reaction (Verified 11/17/23 11:10) Nose Bleed clopidogrel Adverse Reaction (Verified 11/17/23 11:10) Nose Bleed [facility] Medical History Obesity (BMI 30-39.9) Elevated brain natriuretic peptide (BNP) level Lower extremity edema COPD (chronic obstructive pulmonary disease) LEONEL (obstructive sleep apnea) Dyspnea on minimal exertion COPD (chronic obstructive pulmonary disease) Smoker Left ventricular hypertrophy Smoking CKD (chronic kidney disease) Obesity Dyslipidemia Hypertension Diabetes mellitus Surgical History No pertinent past surgical history Family History Father No problems noted. Mother Diabetes Family/Other No problems noted. Social History Household Members: Significant Other Housing: Apartment Do you presently have visiting nurse or other home services: No Alcohol intake: current Alcohol intake frequency: a few times a month Patient Tobacco Use Status: Former Tobacco user Quit Date: 2021 e-Cigarette/Vaping Use: Never Used Second Hand Smoke Exposure: No Advance Directives Date on File: 08/23/22 service: No Current occupational status: disabled Office Procedures Cardiac Device Check Cardiac Device Check Details: Monitoring period dates: 11/25/23 - 12/27/23 Optimal PA pressure range:PAD goal 16mmhg Procedure code: 27639 BACKGROUND: Lewis is implanted with the CardioMEMS PA Sensor.? I use this technology to monitor PA pressures on a weekly basis to ensure patients are within their optimal range to prevent decompensation.? SUMMARY:? I utilized the remote monitoring platform (HeyKiki) to set optimal targets for pulmonary artery pressure thresholds as part of acute and chronic management of patient?s heart failure. During the period indicated above, I monitored the patient?s pulmonary artery pressures weekly via trend analysis and notification reports which provide alerts when patient?s PA pressures were outside of range to prompt immediate action in medication changes and communications.? The weekly reports are archived in the [employer] system which serve as a parallel record to document weekly PA pressures, medication changes, and clinical notes. I have reviewed readings on 11/25, 12/02, 12/08, 12/14, 12/21, 12/25. His PAD has ranged from 16-28mmhg. He has advanced CKD and diuretics are not being adjusted at this time. 44948 - Remote monitoring of wireless pulmonary artery pressure sensor Procedure code (CPT) selection complete Assessment & Plan Assessment & Plan (1) Presence of CardioMEMS HF system: Code(s): Z95.818 - Presence of other cardiac implants and grafts Category: Medical Plan: monthly report Coding Level of Care Code Procedure Only Diagnoses Presence of CardioMEMS HF system Z95.818 CPT Codes Cardiac Device Check - Cardiac Device 17: 49856 - Remote monitoring of wireless pulmonary artery pressure sensor ([id number])
== END ==
PROVIDERS: PCP Internal Medicine; Visit Provider Nurse Practitioner Family
DX: I50.9 Heart failure, unspecified (principal); Z95.818 Presence of other cardiac implants and grafts; N18.9 Chronic kidney disease, unspecified
CPT/HCPCS: 93264

== ENCOUNTER → 2024-01-14 07:40 | Outpatient (REF) | payer MEDICARE, MEDICAID, SELFPAY ==
--- NOTE | 2024-01-14 07:42 | CA_ITS ---
Transthoracic Echocardiogram Patient (Last, First, Middle): Lewis Garrison, Gender: Male Date of : 1955 Age: 68 Procedure Date: 01/14/2024 Procedure Type: Transthoracic Echocardiogram Location: OP Height: 170.18 cm Weight: 105.24 kg BSA: 2.15 m2 Heart Rate: bpm BP: 130 / 72 mmHg Motor Scooter Mechanic: TO Referring MD: Jose Kim MD Symptoms: I50.9 - Heart failure, unspecified Study Quality: Adequate Conclusions: - The left ventricular systolic function is normal. The calculated ejection fraction is 55% by biplane method. - There is severe septal asymmetric hypertrophy. - Evidence suggests grade III (severe) diastolic dysfunction. - There is mild to moderate mitral valve regurgitation. - There is mild to moderate tricuspid valve regurgitation. Findings Left Ventricle Normal left ventricular cavity size. There is mildly increased left ventricular wall thickness. The left ventricular systolic function is normal. The calculated ejection fraction is 55% by biplane method. There is no evidence of regional wall motion abnormalities. Evidence suggests grade III (severe) diastolic dysfunction. There is severe septal asymmetric hypertrophy. Right Ventricle Normal right ventricular cavity size and systolic function. Atria Severe biatrial enlargement. Aortic Valve There is a normal trileaflet aortic valve. There is mild calcification of the aortic valve. There is no aortic valve stenosis. There is no aortic valve regurgitation. Mitral Valve The mitral valve appears normal. There is mild to moderate mitral valve regurgitation. There is no mitral valve stenosis. Pulmonic Valve The pulmonic valve is likely normal. Tricuspid Valve There is mild to moderate tricuspid valve regurgitation. There is no evidence of pulmonary hypertension. Great Vessels The asc aorta is normal in size. Venous The inferior vena cava is mildly dilated and collapses greater than 50% with inspiration. Pericardium/Pleural There is no evidence of pericardial effusion. Prior Study Comparison Changes noted compared to prior study dated: 04/25/2023. Progression of diastolic dysfunction. Measurements 2D Linear Measurements IVSd: 1.61 0.6-0.9/0.6-1.0 cm LVIDd: 5.04 3.9-5.3/4.2-5.9 cm LVIDd Index: 2.34 2.4-3.2/2.2-3.1 cm/m2 LVIDs: 3.58 2.0-3.6 cm LVPWd: 1.19 0.7-1.1 cm LA Diam: 5.40 2.7-3.8/3.0-4.0 cm LAIDs Index: 2.51 1.5-2.3 cm/m2 LV Mass: 368.02 67-162/88-224 g LV Mass Index: 171.17 43-95/49-115 g/m2 LVOT Diam: 2.30 3.0+(-)1.3 cm 2D Systolic Function EF 4C: 55.80 >55% EF 2C: 52.40 >55% EF BiP: 55.00 >55% Mitral Valve MV VTI: 0.34 MV Pk Jose: 1.25 MV Mn Jose: 0.64 MV Pk Grad: 6.00 MV Mn Grad: 2.00 MV Pk E: 1.07 MV Decel Time: 167.00 E'Lateral: 8.92 E'Medial: 5.55 E/E' Med: 19.30 E/E' Lat: 12.00 PHT: 49.00 MVA PHT: 4.49 MVA Continuity: 1.79 Decel Norton: 6.39 MR Vol - PW Dopp: 26.72 MR VTI: 1.67 MR ERO: 16.00 MR Alias Jose: 0.35 MR RAD: 0.60 Aortic Valve AoV Pk Jose: 1.52 AoV Mn Jose: 1.16 AoV VTI: 0.30 AoV Pk Grad: 9.00 Aov Mn Grad: 6.00 EUGENE Cont.VTI: 2.03 LVOT LVOT Pk Jose: 0.76 LVOT Mn Jose: 0.48 LVOT VTI: 0.15 LVOT Pk Grad: 2.00 LVOT Mn Grad: 1.00 LVOT Diam: 2.30 LVOT Area: 4.15 Diastolic Function MV Pk E: 1.07 E'Medial: 5.55 E/E' Med: 19.30 E' Laterial: 8.92 E/E' Lat: 12.00 Right Ventricle TAPSE (mm): 20.40 TVS' Jose: 11.20 Tricuspid Valve TR Pk Jose: 2.45 TR Pk Grad: 24.00 RA Press: 8.00 RVSP: 32.00 Great Vessels Aorta Sinus of Valsalva: 3.69 2.0-3.[address] Ridge: 2.79 1.7-3.4 cm Ao Asc: 3.60 2.1-3.4 cm Ao Arch: 2.50 Updated in Other Vendor System with Status of Final Jose Kmi MD electronically signed on 01/16/2024 4:32:59 PM with status of Final
== END ==
LOC: HO.CARD 07:40
PROVIDERS: PCP Internal Medicine; Visit Provider Internal Medicine
DX: I50.9 Heart failure, unspecified (principal)
CPT/HCPCS: 93306

== ENCOUNTER → 2024-01-14 07:42 | Outpatient (BNV) | payer MEDICARE, MEDICAID, SELFPAY | PROVIDERS: PCP Internal Medicine; Visit Provider Internal Medicine | DX: I50.30 Unspecified diastolic (congestive) heart failure (principal); I34.0 Nonrheumatic mitral (valve) insufficiency; I36.1 Nonrheumatic tricuspid (valve) insufficiency; I35.8 Other nonrheumatic aortic valve disorders | CPT/HCPCS: 93306 ==

== ENCOUNTER → 2024-01-28 23:59 | Outpatient (BNV) | payer MEDICARE, MEDICAID, SELFPAY ==
--- NOTE | 2024-02-06 11:41 | A.OFFVIS_ITS ---
Intake Visit Reasons: Remote Cardiomems- [facility] Jr Allergies aspirin Adverse Reaction (Unknown, Verified 02/03/24 08:37) nose bleeds metformin Adverse Reaction (Unknown, Verified 02/03/24 08:37) hypoglycemia warfarin [From Coumadin] Adverse Reaction (Unknown, Verified 02/03/24 08:37) Nose Bleed apixaban Adverse Reaction (Verified 02/03/24 08:37) Nose Bleed clopidogrel Adverse Reaction (Verified 02/03/24 08:37) Nose Bleed [facility] Medical History Obesity (BMI 30-39.9) Elevated brain natriuretic peptide (BNP) level Lower extremity edema COPD (chronic obstructive pulmonary disease) LEONEL (obstructive sleep apnea) Dyspnea on minimal exertion COPD (chronic obstructive pulmonary disease) Smoker Left ventricular hypertrophy Smoking CKD (chronic kidney disease) Obesity Dyslipidemia Hypertension Diabetes mellitus Surgical History No pertinent past surgical history Family History Father No problems noted. Mother Diabetes Family/Other No problems noted. Social History Household Members: Significant Other Housing: Apartment Do you presently have visiting nurse or other home services: No Alcohol intake: current Alcohol intake frequency: a few times a month Patient Tobacco Use Status: Former Tobacco user Quit Date: 2021 e-Cigarette/Vaping Use: Never Used Second Hand Smoke Exposure: No Advance Directives Date on File: 08/23/22 service: No Current occupational status: disabled Office Procedures Cardiac Device Check Cardiac Device Check Details: Monitoring period dates: 12/28/23 -01/27/24 Optimal PA pressure range:PAD goal 16mmhg Procedure code: 27920 BACKGROUND: Lewis is implanted with the CardioMEMS PA Sensor.? I use this technology to monitor PA pressures on a weekly basis to ensure patients are within their optimal range to prevent decompensation.? SUMMARY:? I utilized the remote monitoring platform ([employer]) to set optimal targets for pulmonary artery pressure thresholds as part of acute and chronic management of patient?s heart failure. During the period indicated above, I monitored the patient?s pulmonary artery pressures weekly via trend analysis and notification reports which provide alerts when patient?s PA pressures were outside of range to prompt immediate action in medication changes and communications.? The weekly reports are archived in the [employer] system which serve as a parallel record to document weekly PA pressures, medication changes, and clinical notes. I have reviewed readings on 12/30, 01/06, 01/13, 01/19, 01/26. His PAD has ranged between 16-24mmhg. His diuretic has been left unchanged per recommendation of nephrology. 43319 - Remote monitoring of wireless pulmonary artery pressure sensor Procedure code (CPT) selection complete Assessment & Plan Assessment & Plan (1) Presence of CardioMEMS HF system: Code(s): Z95.818 - Presence of other cardiac implants and grafts Category: Medical Plan: monthly report Coding Level of Care Code Procedure Only Diagnoses Presence of CardioMEMS HF system Z95.818 CPT Codes Cardiac Device Check - Cardiac Device 17: 91424 - Remote monitoring of wireless pulmonary artery pressure sensor ([id number])
== END ==
PROVIDERS: PCP Internal Medicine; Visit Provider Nurse Practitioner Family
DX: I50.32 Chronic diastolic (congestive) heart failure (principal); Z95.818 Presence of other cardiac implants and grafts
CPT/HCPCS: 93264

== ENCOUNTER 2024-02-03 08:26 | Outpatient (AMB) | payer MEDICARE, MEDICAID, SELFPAY ==
[2024-02-03 08:36] VITALS: BP 124/72; PULSE 73; BMI 36.7
--- NOTE | 2024-02-03 08:36 | A.OFFVIS_ITS ---
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 Required: No Allergies aspirin Adverse Reaction (Unknown, Verified 02/03/24 08:37) nose bleeds metformin Adverse Reaction (Unknown, Verified 02/03/24 08:37) hypoglycemia warfarin [From Coumadin] Adverse Reaction (Unknown, Verified 02/03/24 08:37) Nose Bleed apixaban Adverse Reaction (Verified 02/03/24 08:37) Nose Bleed clopidogrel Adverse Reaction (Verified 02/03/24 08:37) Nose Bleed Medication List - Last Reconciled 02/03/24 by ANU Gonzalez acetaminophen (Tylenol) 650 mg PO Q6H PRN blood-glucose meter (FreeStyle Lite Meter kit) As directed bumetanide 1 mg PO DAILY calcitriol 0.25 mcg PO DAILY cholecalciferol (vitamin D3) 25 mcg PO Q48H cinacalcet 30 mg PO DAILY clonidine HCl 0.2 mg PO TID 90 days gabapentin 100 mg PO TID glimepiride 1 mg PO DAILY hydralazine 100 mg PO TID labetalol 400 mg PO BID lancets (FreeStyle Lancets) As directed lidocaine 5% 1 patch topical DAILY PRN losartan 100 mg PO DAILY oxycodone-acetaminophen 5-325 mg 1 tab PO Q8H PRN simvastatin 20 mg PO BEDTIME sitagliptin phosphate (Januvia) 25 mg PO DAILY zolpidem 10 mg PO BEDTIME HPI HPI f/up- per HS: Details: Lewis is a 68-year-old male with past medical? history of obesity, hypertension, diabetes, chronic kidney disease, smoking, first-degree AV block, right bundle branch block, obstructive sleep apnea, diastolic heart failure, s/p CardioMEMS device who presents for follow-up. Today he reports he has been doing well since his last visit 03/25/2023. Does have shortness of breath with exertion which he tells me has been unchanged. He denies having chest discomfort at rest or with activity. He denies PND, orthopnea. He does have chronic mild swelling in his left lower leg. No palpitations, dizziness, presyncope, syncope, falls. Taking all meds as directed. Has been doing his CardioMEMS readings as directed. 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 He follows closely with Nephrology and is hoping to prevent future hemodialysis. [facility] Medical History Obesity (BMI 30-39.9) Elevated brain natriuretic peptide (BNP) level Lower extremity edema COPD (chronic obstructive pulmonary disease) LEONEL (obstructive sleep apnea) Dyspnea on minimal exertion COPD (chronic obstructive pulmonary disease) Smoker Left ventricular hypertrophy Smoking CKD (chronic kidney disease) Obesity Dyslipidemia Hypertension Diabetes mellitus Surgical History No pertinent past surgical history Family History Father No problems noted. Mother Diabetes Family/Other No problems noted. Social History Household Members: Significant Other Housing: Apartment Do you presently have visiting nurse or other home services: No Alcohol intake: current Alcohol intake frequency: a few times a month Patient Tobacco Use Status: Former Tobacco user Quit Date: 2021 e-Cigarette/Vaping Use: Never Used Second Hand Smoke Exposure: No Advance Directives Date on File: 08/23/22 service: No Current occupational status: disabled Review of Systems Const All systems reviewed & are unremarkable except as noted in HPI and below ENT Denies dizziness Card Denies chest pain, Denies chest pain at rest, Denies chest pain with activity, Denies rapid heart rate, Denies pedal edema, Denies edema, Denies leg edema, Denies lightheadedness, Denies palpitations, Denies dyspnea, Reports dyspnea on exertion and Denies orthopnea Resp Denies cough, Denies dyspnea and Reports dyspnea on exertion GI Denies hematochezia and Denies change in stool character Musc Denies abnormal gait, Denies limited range of motion, Denies muscle cramps, Denies muscle weakness, Denies numbness, Denies radiating pain into limb, Denies stiffness and Denies tingling Neuro Denies abnormal gait, Denies dizziness, Denies numbness and Denies tingling Endo Denies palpitations Physical Exam Vital Signs: Last Vital Signs Pulse 73 02/03/24 08:36 BP 124/72 02/03/24 08:36 BMI result Body Mass Index 36.7 Const General: cooperative, healthy appearing, comfortable and no acute distress Orientation/consciousness: patient oriented x3 Neck Neck: Yes normal visual inspection Resp Effort & Inspection: normal respiratory effort Auscultation: clear to auscultation bilaterally, no crackles, no rales, no rhonchi and no wheezes Cardio Jugular venous distension: no JVD Rate: regular rate Rhythm: regular rhythm Heart sounds: S1 normal heart sound present, S2 normal heart sound present, no murmurs and no rubs Neuro General: patient oriented x3 Extrem General: Yes normal to inspection and No no pedal edema Psych Appearance: grossly normal Mental Status: mental status grossly normal Speech and movement: Normal speech and movement present Office Procedures EKG Details: Today, read by me, sinus rhythm with first-degree AV block, left axis deviation, right bundle branch block, rate 73, JT index 86.8 [id number], Complete Assessment & Plan Assessment & Plan (1) Acute exacerbation of CHF (congestive heart failure): Code(s): I50.9 - Heart failure, unspecified Category: Medical Plan: History of heart failure with preserved EF. Last hospital admission with acute heart failure was September 2022. Since then he had a CardioMEMS device placed. Compliant with his readings and PA readings are followed remotely. He has known advanced chronic kidney disease and follows closely with Nephrology. His most recent CardioMEMS readings have been more elevated however on exam today he does not appear fluid overloaded. Has issues with chronic shortness of breath with activity which he tells me has been unchanged. EKG today showing sinus rhythm with first-degree AV block, right bundle branch block, rate 73. Last echocardiogram done 01/14/2024 shows EF 55 %, severe septal asymmetric h ypertrophy, grade 3 diastolic dysfunction, [id number] MR, [id number] TR. He continues on Bumex 1 mg b.i.d. Labs done 11/12/2023 showing creatinine 3.86. Last nuclear stress test on 09/26/2022 showing no infarct or ischemia. Spent time reviewing signs and symptoms of heart failure with him. If having concerning symptoms instructed to notify either Nephrology or this office. No med changes made at this time. Cardiology follow-up 6 months, sooner if needed. (2) COPD (chronic obstructive pulmonary disease): Comment: HE DEFINITELY HAS CHRONIC OBSTRUCTIVE PULMONARY DISEASE, MODERATELY SEVERE, THERE WAS NO RESPONSE TO BRONCHODILATOR THERAPY. RX : VENTOLIN HFA I.E. 2 PUFFS Q 4-6 HOURS ONLY P.R.N.. USE WITH A SPACER.. HE ALSO HAS NEBULIZER DEVICE AT HOME, WITH ALBUTEROL SOLUTION, AND AN ALTERNATIVE MAY USE THE NEBULIZER Q 4-6 HOURS P.R.N.. HE DOES NOT NEED TO USE ANY LONG-ACTING BRONCHODILATOR. WILL BE OKAY TO COME ONCE A YEAR FOR FOLLOW-UP AND ALSO NEEDED. Code(s): J44.9 - Chronic obstructive pulmonary disease, unspecified Category: Medical Plan: Followed by pulmonology (3) Essential hypertension: Code(s): I10 - Essential (primary) hypertension Category: Medical Plan: Normal today, 124/72. He continues on hydralazine, labetalol, Bumex, amlodipine, clonidine. Blood pressure is being followed by Nephrology as well. (4) Carotid stenosis: Code(s): I65.29 - Occlusion and stenosis of unspecified carotid artery Category: Medical Qualifiers: Laterality: left Qualified Code(s): I65.22 - Occlusion and stenosis of left carotid artery Plan: Known history of carotid stenosis. Last ultrasound done on 04/09/2023 showing showing right ICA 50-79 % stenosis, left ICA 50-79% stenosis. He denies any neurological symptoms, vision changes. Last known LDL 57 on 11/12, well controlled. Continue statin. He tells me he cannot take any blood thinners as he has had epistaxis and hemoptysis in the past. He is following with Dr. Mcfadden and a repeat carotid ultrasound is ordered for April 2024. (5) First degree heart block: Code(s): I44.0 - Atrioventricular block, first degree Category: Medical Plan: Present on EKGs, no change (6) RBBB: Code(s): I45.10 - Unspecified right bundle-branch block Category: Medical Plan: Present on EKG, no change Plan Time spent on chart review, documentation, interview and assessment Coding Level of Care Code Est Pt Level 4 (42013) Diagnoses Acute exacerbation of CHF (congestive heart failure) I50.9 COPD (chronic obstructive pulmonary disease) J44.9 Essential hypertension I10 Stenosis of left carotid artery I65.22 Laterality: left First degree heart block I44.0 RBBB I45.10 CPT Codes EKG - CPT: [id number], Complete ([id number]) Time Spent (min) 28
== END 2024-02-03 09:14 | disposition home or self-care (01) ==
PROVIDERS: PCP Internal Medicine; Visit Provider Nurse Practitioner Family
DX: I50.9 Heart failure, unspecified (principal); J44.9 Chronic obstructive pulmonary disease, unspecified; I10 Essential (primary) hypertension; I65.22 Occlusion and stenosis of left carotid artery; I44.0 Atrioventricular block, first degree; I45.10 Unspecified right bundle-branch block
CPT/HCPCS: 93010; 99214

== ENCOUNTER → 2024-02-03 08:26 | Outpatient (BNVA) | payer MEDICARE, MEDICAID, SELFPAY | PROVIDERS: PCP Internal Medicine; Visit Provider Nurse Practitioner Family | DX: I11.0 Hypertensive heart disease with heart failure (principal); I50.9 Heart failure, unspecified; I65.22 Occlusion and stenosis of left carotid artery; I44.0 Atrioventricular block, first degree; I45.10 Unspecified right bundle-branch block; J44.9 Chronic obstructive pulmonary disease, unspecified | CPT/HCPCS: 93005; 99212 ==

== ENCOUNTER 2024-03-08 08:29 | Outpatient (REF) | payer MEDICARE, MEDICAID, SELFPAY ==
[2024-03-08 13:19] LABS: Hematocrit 34.6 % (42.0-52.0); Hemoglobin 10.9 g/dl (14.0-18.0); Mean Corpuscular HGB Conc 31.5 g/dl (31.0-36.0); Mean Corpuscular Hemoglobin 28.4 pg (27.0-33.0); Mean Corpuscular Volume 90.1 fL (80.0-98.0); Mean Platelet Volume 11.2 fL (9.4-12.4); Platelet Count 177 X10*3/uL (160-400); Red Blood Count 3.84 X10*6/uL (4.60-5.80); Red Cell Distribution Width 14.1 % (11.0-16.0)
[2024-03-08 13:59] LABS: Parathyroid Hormone Intact 111.7 pg/mL (8.7-77.1)
[2024-03-08 14:31] LABS: Anion Gap 17 (12-20); Blood Urea Nitrogen 53 mg/dL (9-16); Calcium 8.2 mg/dL (8.4-10.2); Carbon Dioxide 25 mmol/L (22-29); Chloride 108 mmol/L (96-108); Estimated Glomerular Filt Rate 15; Glucose Random 98 mg/dL (60-115); Potassium 4.2 mmol/L (3.3-5.1); Sodium 146 mmol/L (135-145)
== END 2024-03-08 08:30 | disposition home or self-care (01) ==
LOC: HO.CHCLDS 08:29
PROVIDERS: Visit Provider Internal Medicine Hypertension Specialist
DX: N18.4 Chronic kidney disease, stage 4 (severe) (principal)
CPT/HCPCS: 36415; 80048; 83970; 85027

== ENCOUNTER → 2024-03-08 23:59 | Outpatient (BNV) | payer MEDICARE, MEDICAID, SELFPAY ==
--- NOTE | 2024-03-16 09:26 | A.OFFVIS_ITS ---
Intake Visit Reasons: Remote cardiomems St Jr Allergies aspirin Adverse Reaction (Unknown, Verified 02/03/24 08:37) nose bleeds metformin Adverse Reaction (Unknown, Verified 02/03/24 08:37) hypoglycemia warfarin [From Coumadin] Adverse Reaction (Unknown, Verified 02/03/24 08:37) Nose Bleed apixaban Adverse Reaction (Verified 02/03/24 08:37) Nose Bleed clopidogrel Adverse Reaction (Verified 02/03/24 08:37) Nose Bleed PFS Medical History Obesity (BMI 30-39.9) Elevated brain natriuretic peptide (BNP) level Lower extremity edema COPD (chronic obstructive pulmonary disease) LEONEL (obstructive sleep apnea) Dyspnea on minimal exertion COPD (chronic obstructive pulmonary disease) Smoker Left ventricular hypertrophy Smoking CKD (chronic kidney disease) Obesity Dyslipidemia Hypertension Diabetes mellitus Surgical History No pertinent past surgical history Family History Father No problems noted. Mother Diabetes Family/Other No problems noted. Social History Household Members: Significant Other Housing: Apartment Do you presently have visiting nurse or other home services: No Alcohol intake: current Alcohol intake frequency: a few times a month Patient Tobacco Use Status: Former Tobacco user e-Cigarette/Vaping Use: Never Used Second Hand Smoke Exposure: No Advance Directives Date on File: 08/23/22 service: No Current occupational status: disabled Office Procedures Cardiac Device Check Cardiac Device Check Details: Monitoring period dates: 01/28/24 - 03/08/24 Optimal PA pressure range: PAD goal 16 mmhg Procedure code: 75020 BACKGROUND: Lewis is implanted with the CardioMEMS PA Sensor.? I use this technology to monitor PA pressures on a weekly basis to ensure patients are within their optimal range to prevent decompensation.? SUMMARY:? I utilized the remote monitoring platform ([email or web address]) to set optimal targets for pulmonary artery pressure thresholds as part of acute and chronic management of patient?s heart failure. During the period indicated above, I monitored the patient?s pulmonary artery pressures weekly via trend analysis and notification reports which provide alerts when patient?s PA pressures were outside of range to prompt immediate action in medication changes and communications.? The weekly reports are archived in the [email or web address] system which serve as a parallel record to document weekly PA pressures, medication changes, and clinical notes. I have reviewed readings on 01/29, 02/03, 02/08, 02/15, 02/22. 03/01, 03/08. His PAD has ranged between 19- 42mmhg. He readings are elevated however he denies symptoms. He has advanced CKD and diuretics are not being adjusted per nephrology recommendation. 59834 - Remote monitoring of wireless pulmonary artery pressure sensor Procedure code (CPT) selection complete Assessment & Plan Assessment & Plan (1) Presence of CardioMEMS HF system: Code(s): Z95.818 - Presence of other cardiac implants and grafts Category: Medical Plan: monthly report Coding Level of Care Code Procedure Only Diagnoses Presence of CardioMEMS HF system Z95.818 CPT Codes Cardiac Device Check - Cardiac Device 17: 69675 - Remote monitoring of wireless pulmonary artery pressure sensor ([id number])
== END ==
PROVIDERS: PCP Internal Medicine; Visit Provider Nurse Practitioner Family
DX: Z45.09 Encounter for adjustment and management of other cardiac device (principal)
CPT/HCPCS: 93264

== ENCOUNTER 2024-03-16 10:52 | Outpatient (AMB) | payer MEDICARE, MEDICAID, SELFPAY ==
[2024-03-16 10:52] VITALS: BP 134/70; PULSE 71; O2SAT 95; BMI 37.0
--- NOTE | 2024-03-16 10:52 | HO.NEPHOV ---
Vital Signs 03/16/24 10:52 Height 5 ft 7 in Weight 236 lb BMI 37.0 BP 134/70 Blood Pressure Location Lt brachial Position Sitting Pulse 71 Pulse Source Pulse Oximeter Pulse Oximetry (%) 95 Oxygen Delivery Method Room Air Intake Visit Reasons: March follow up/ No calls requested Roving Winder Required: No Accompanied by: Self / Same As Patient Allergies aspirin Adverse Reaction (Unknown, Verified 03/16/24 10:54) nose bleeds metformin Adverse Reaction (Unknown, Verified 03/16/24 10:54) hypoglycemia warfarin [From Coumadin] Adverse Reaction (Unknown, Verified 03/16/24 10:54) Nose Bleed apixaban Adverse Reaction (Verified 03/16/24 10:54) Nose Bleed clopidogrel Adverse Reaction (Verified 03/16/24 10:54) Nose Bleed Medication List - Last Reconciled 03/16/24 by Ross Baldwin MD acetaminophen (Tylenol) 650 mg PO Q6H PRN blood-glucose meter (FreeStyle Lite Meter kit) As directed bumetanide 1 mg PO DAILY calcitriol 0.25 mcg PO DAILY cholecalciferol (vitamin D3) 25 mcg PO Q48H cinacalcet 30 mg PO DAILY clonidine HCl 0.2 mg PO TID 90 days gabapentin 100 mg PO TID glimepiride 1 mg PO DAILY hydralazine 100 mg PO TID labetalol 400 mg PO BID lancets (FreeStyle Lancets) As directed lidocaine 5% 1 patch topical DAILY PRN losartan 100 mg PO DAILY oxycodone-acetaminophen 5-325 mg 1 tab PO Q8H PRN simvastatin 20 mg PO BEDTIME sitagliptin phosphate (Januvia) 25 mg PO DAILY zolpidem 10 mg PO BEDTIME HPI Comments Details: 67-year-old male with a history of type 2 diabetes, HTN, CKD, carotid stenosis, COPD, LEONEL not on CPAP, diastolic CHF with preserved ejection fraction, He has advanced CKD Baseline creatinine is between 3.5 and 4.0 Currently on high dose of Bumex -Takes 1mg BID No edema No dyspnea PFSH Medical History Obesity (BMI 30-39.9) Elevated brain natriuretic peptide (BNP) level Lower extremity edema COPD (chronic obstructive pulmonary disease) LEONEL (obstructive sleep apnea) Dyspnea on minimal exertion COPD (chronic obstructive pulmonary disease) Smoker Left ventricular hypertrophy Smoking CKD (chronic kidney disease) Obesity Dyslipidemia Hypertension Diabetes mellitus Surgical History No pertinent past surgical history Family History Father No problems noted. Mother Diabetes Family/Other No problems noted. Social History Household Members: Significant Other Housing: Apartment Do you presently have visiting nurse or other home services: No Alcohol intake: current Alcohol intake frequency: a few times a month Patient Tobacco Use Status: Former Tobacco user e-Cigarette/Vaping Use: Never Used Second Hand Smoke Exposure: No Advance Directives Date on File: 08/23/22 service: No Current occupational status: disabled Physical Exam Vital Signs: Last Vital Signs Pulse 71 03/16/24 10:52 BP 134/70 03/16/24 10:52 Pulse Ox 95 03/16/24 10:52 Oxygen Delivery Method Room Air 03/16/24 10:52 BMI result Body Mass Index 37.0 Const General: comfortable; No acute distress Orientation/consciousness: patient oriented x3 Eyes General: appearance normal, both eyes and all related structures Visual Cedillo: normal visual cedillo by confrontation Neck Neck: Yes supple and Yes no JVD Resp Effort & Inspection: normal respiratory effort and respiratory effort not decreased Auscultation: rhonchi Cardio Palpation: no palpable S3 and no palpable S4 Heart sounds: no rubs GI Inspection: Yes normal to inspection Palpation (GI): Soft to palpation Percussion: Yes normal to percussion Auscultation: normal bowel sounds General: Yes no CVA tenderness Back/Spine/Pelvis Back: no CVA tenderness Skin General skin exam: no petechiae and no purpura Neuro General: patient oriented x3 and no focal motor deficits Extrem General: No clubbing and No edema Results Reviewed Nephrology Results: Hgb 10.9 g/dl (14.0-18.0) L 03/08/24 WBC 6.0 X10*3/uL (4.8-10.8) 03/08/24 Plt Count 177 X10*3/uL (160-400) 03/08/24 Sodium 146 mmol/L (135-145) H 03/08/24 Potassium 4.2 mmol/L (3.3-5.1) 24 Chloride 108 mmol/L (96-108) 03/08/24 Carbon Dioxide 25 mmol/L (22-29) 03/08/24 BUN 53 mg/dL (9-16) H 03/08/24 Creatinine 4.07 mg/dL (0.5-1.4) H* 03/08/24 Calcium 8.2 mg/dL (8.4-10.2) L 03/08/24 PTH Intact 111.7 pg/mL (8.7-77.1) H 03/08/24 Assessment & Plan Assessment & Plan (1) CKD (chronic kidney disease) stage 4, GFR 15-29 ml/min: Code(s): N18.4 - Chronic kidney disease, stage 4 (severe) Category: Medical Plan: Advanced CKD in a setting of longstanding diabetes mellitus hypertension obesity. Patient creatinine is around 3.5 to 4 mg/dL. Currently he has no signs or symptoms of uremia or fluid overload. Keep Bumex to 1 mg q.a.m. and 1 mg every other evening. Encouraged him to keep monitoring his weight and watch for leg edema. Increase Bumex if he gains any weight. Continue with low-salt diet. Continue to avoid nephrotoxic agents. At this point there is no absolute indication for dialysis and will continue to watch him closely. (2) Essential hypertension: Code(s): I10 - Essential (primary) hypertension Category: Medical Plan: BP appears well controlled. We discussed weight loss and low-salt diet again. (3) Chronic diastolic congestive heart failure: Code(s): I50.32 - Chronic diastolic (congestive) heart failure Category: Medical Plan: Compensated. Follows with cardiology. (4) Obesity (BMI 30-39.9): Code(s): E66.9 - Obesity, unspecified Category: Medical Plan: Discussed weight loss. (5) Hyperparathyroidism: Code(s): E21.3 - Hyperparathyroidism, unspecified Category: Medical Plan: Repeat calcium is 8.4 He is currently on cinacalcet and Rocaltrol. Follow PTH Plan Will refer to dialysis education program. He will be a good candidate for CCPD Discussed pre-emptive transplant Wants to discuss with his Orders: Orders Comprehensive Met. Panel 3 Months N18.4 - Chronic kidney disease, stage 4 (severe) Parathyroid Hormone Intact 3 Months N18.4 - Chronic kidney disease, stage 4 (severe) Complete Blood Count Auto Diff 3 Months N18.4 - Chronic kidney disease, stage 4 (severe) Coding Level of Care Code Est Pt Level 4 (61801) Diagnoses CKD (chronic kidney disease) stage 4, GFR 15-29 ml/min N18.4 Essential hypertension I10 Chronic diastolic congestive heart failure I50.32 Obesity (BMI 30-39.9) E66.9 Hyperparathyroidism E21.3
== END 2024-03-16 11:07 | disposition home or self-care (01) ==
PROVIDERS: PCP Internal Medicine; Visit Provider Internal Medicine Hypertension Specialist
DX: I13.0 Hypertensive heart and chronic kidney disease with heart failure and stage 1 through stage 4 chronic kidney disease, or unspecified chronic kidney disease (principal); I50.32 Chronic diastolic (congestive) heart failure; E11.22 Type 2 diabetes mellitus with diabetic chronic kidney disease; N18.4 Chronic kidney disease, stage 4 (severe); E21.3 Hyperparathyroidism, unspecified; E66.9 Obesity, unspecified; Z68.37 Body mass index [BMI] 37.0-37.9, adult
CPT/HCPCS: 99214

== ENCOUNTER → 2024-03-16 10:52 | Outpatient (BNVA) | payer MEDICARE, MEDICAID, SELFPAY | PROVIDERS: PCP Internal Medicine; Visit Provider Internal Medicine Hypertension Specialist | DX: I13.0 Hypertensive heart and chronic kidney disease with heart failure and stage 1 through stage 4 chronic kidney disease, or unspecified chronic kidney disease (principal); I50.32 Chronic diastolic (congestive) heart failure; E66.9 Obesity, unspecified; E21.3 Hyperparathyroidism, unspecified; Z68.37 Body mass index [BMI] 37.0-37.9, adult | CPT/HCPCS: 99212 ==

== ENCOUNTER → 2024-04-08 23:59 | Outpatient (BNV) | payer MEDICARE, MEDICAID, SELFPAY ==
--- NOTE | 2024-04-09 17:29 | MHC.OFFVIS ---
Intake Visit Reasons: Remote Cardiomems- St Jr Allergies aspirin Adverse Reaction (Unknown, Verified 03/16/24 10:54) nose bleeds metformin Adverse Reaction (Unknown, Verified 03/16/24 10:54) hypoglycemia warfarin [From Coumadin] Adverse Reaction (Unknown, Verified 03/16/24 10:54) Nose Bleed apixaban Adverse Reaction (Verified 03/16/24 10:54) Nose Bleed clopidogrel Adverse Reaction (Verified 03/16/24 10:54) Nose Bleed [facility] Medical History Obesity (BMI 30-39.9) Elevated brain natriuretic peptide (BNP) level Lower extremity edema COPD (chronic obstructive pulmonary disease) LEONEL (obstructive sleep apnea) Dyspnea on minimal exertion COPD (chronic obstructive pulmonary disease) Smoker Left ventricular hypertrophy Smoking CKD (chronic kidney disease) Obesity Dyslipidemia Hypertension Diabetes mellitus Surgical History No pertinent past surgical history Family History Father No problems noted. Mother Diabetes Family/Other No problems noted. Social History Household Members: Significant Other Housing: Apartment Do you presently have visiting nurse or other home services: No Alcohol intake: current Alcohol intake frequency: a few times a month Patient Tobacco Use Status: Former Tobacco user e-Cigarette/Vaping Use: Never Used Second Hand Smoke Exposure: No Advance Directives Date on File: 08/23/22 service: No Current occupational status: disabled Office Procedures Cardiac Device Check Cardiac Device Check Details: Monitoring period dates: 03/09/24 - 04/08/24 Optimal PA pressure range: PAD goal 16 mmhg Procedure code: 63818 BACKGROUND: Lewis is implanted with the CardioMEMS PA Sensor.? I use this technology to monitor PA pressures on a weekly basis to ensure patients are within their optimal range to prevent decompensation.? SUMMARY:? I utilized the remote monitoring platform ([email or web address]) to set optimal targets for pulmonary artery pressure thresholds as part of acute and chronic management of patient?s heart failure. During the period indicated above, I monitored the patient?s pulmonary artery pressures weekly via trend analysis and notification reports which provide alerts when patient?s PA pressures were outside of range to prompt immediate action in medication changes and communications.? The weekly reports are archived in the [employer] system which serve as a parallel record to document weekly PA pressures, medication changes, and clinical notes. I have reviewed readings on 03/10, 03/15, 03/19, 03/24, 03/29, 04/02, 04/08.. PAD has ranged between 21-37mmhg and diuretics have not been adjusted at the request of nephrology due to advanced CKD. Goal PAD may need to be readjusted. 65511 - Remote monitoring of wireless pulmonary artery pressure sensor Procedure code (CPT) selection complete Assessment & Plan Assessment & Plan (1) Presence of CardioMEMS HF system: Code(s): Z95.818 - Presence of other cardiac implants and grafts Category: Medical Plan: monthly report Coding Level of Care Code Procedure Only Diagnoses Presence of CardioMEMS HF system Z95.818 CPT Codes Cardiac Device Check - Cardiac Device 17: 92111 - Remote monitoring of wireless pulmonary artery pressure sensor ([id number])
== END ==
PROVIDERS: PCP Internal Medicine; Visit Provider Nurse Practitioner Family
DX: I50.9 Heart failure, unspecified (principal); Z95.818 Presence of other cardiac implants and grafts
CPT/HCPCS: 93264

== ENCOUNTER 2024-04-12 09:41 | Outpatient (REF) | payer MEDICARE, MEDICAID, SELFPAY ==
--- NOTE | ~2024-04-12 | US_ITS ---
EXAMINATION: US EXTRACRANIAL CAROTID DUPLEX, BILATERAL CLINICAL INFORMATION: Left ICA stenosis COMPARISON: Carotid duplex on 04/09/2023 TECHNIQUE: Real-time ultrasound and Doppler techniques (integrating B-mode 2-D vascular images, Doppler spectral analysis and color-flow Doppler imaging) were utilized to interrogate the extracranial carotid arteries, the vertebral arteries and proximal subclavian arteries bilaterally. The degree of stenosis is determined by criteria similar to NASCET. FINDINGS: Right Side: 1. There is mild atherosclerotic plaque seen in the bifurcation/proximal ICA region. 2. The common carotid artery PSV proximally is 109 cm/s and distally 98 cm/s. 3. The proximal internal carotid artery velocities are 113 cm/s systolic and 25 cm/s diastolic. 4. The proximal external carotid artery PSV is 127 cm/s. 5. The vertebral artery shows antegrade flow. 6. The subclavian artery waveforms are normal. Left Side: 1. There is moderate atherosclerotic plaque seen in the bifurcation/proximal ICA region. 2. The common carotid artery PSV proximally is 118 cm/s and distally 99 cm/s. 3. The proximal internal carotid artery velocities are 187 cm/s systolic and 51 cm/s diastolic. 4. The proximal external carotid artery PSV is 119 cm/s. 5. The vertebral artery shows antegrade flow. 6. The subclavian artery waveforms are normal. US/US carotid duplex BI IMPRESSION: 1. RIGHT: Minimal, non-hemodynamically significant stenosis of the proximal right internal carotid artery corresponding to a 0-49% stenosis by velocity criteria. 2. LEFT: Moderate, hemodynamically significant stenosis of the proximal left internal carotid artery corresponding to a 50-79% stenosis by velocity criteria. 3. There is no change in the category severity of disease when compared to the previous study dated 04/09/2023.
== END 2024-04-12 09:42 | disposition home or self-care (01) ==
LOC: HO.US 09:41
PROVIDERS: PCP Internal Medicine; Visit Provider Surgery Vascular Surgery
DX: I65.22 Occlusion and stenosis of left carotid artery (principal)
CPT/HCPCS: 93880

== ENCOUNTER → 2024-05-10 23:59 | Outpatient (BNV) | payer MEDICARE, MEDICAID, SELFPAY ==
--- NOTE | 2024-05-21 17:09 | A.OFFVIS_ITS ---
Intake Visit Reasons: Remote Cardiomems- St Jr Allergies aspirin Adverse Reaction (Unknown, Verified 03/16/24 10:54) nose bleeds metformin Adverse Reaction (Unknown, Verified 03/16/24 10:54) hypoglycemia warfarin [From Coumadin] Adverse Reaction (Unknown, Verified 03/16/24 10:54) Nose Bleed apixaban Adverse Reaction (Verified 03/16/24 10:54) Nose Bleed clopidogrel Adverse Reaction (Verified 03/16/24 10:54) Nose Bleed [facility] Medical History Obesity (BMI 30-39.9) Elevated brain natriuretic peptide (BNP) level Lower extremity edema COPD (chronic obstructive pulmonary disease) LEONEL (obstructive sleep apnea) Dyspnea on minimal exertion COPD (chronic obstructive pulmonary disease) Smoker Left ventricular hypertrophy Smoking CKD (chronic kidney disease) Obesity Dyslipidemia Hypertension Diabetes mellitus Surgical History No pertinent past surgical history Family History Father No problems noted. Mother Diabetes Family/Other No problems noted. Social History Household Members: Significant Other Housing: Apartment Do you presently have visiting nurse or other home services: No Alcohol intake: current Alcohol intake frequency: a few times a month Patient Tobacco Use Status: Former Tobacco user e-Cigarette/Vaping Use: Never Used Second Hand Smoke Exposure: No Advance Directives Date on File: 08/23/22 service: No Current occupational status: disabled Office Procedures Cardiac Device Check Cardiac Device Check Details: Monitoring period dates:04/09/24- 05/11/24 Optimal PA pressure range: PAD 16mmhg Procedure code: 14378 BACKGROUND: Lewis is implanted with the CardioMEMS PA Sensor.? I use this technology to monitor PA pressures on a weekly basis to ensure patients are within their optimal range to prevent decompensation.? SUMMARY:? I utilized the remote monitoring platform ([employer]) to set optimal targets for pulmonary artery pressure thresholds as part of acute and chronic management of patient?s heart failure. During the period indicated above, I monitored the patient?s pulmonary artery pressures weekly via trend analysis and notification reports which provide alerts when patient?s PA pressures were outside of range to prompt immediate action in medication changes and communications.? The weekly reports are archived in the [employer] system which serve as a parallel record to document weekly PA pressures, medication changes, and clinical notes. I have reviewed readings on 04/10, 04/19, 04/26. 05/03, 05/10. His PAD readings have ranged 25-32mmhg. Diuretics have not been adjusted at ne phrology request due to advanced CKD. 42714 - Remote monitoring of wireless pulmonary artery pressure sensor Procedure code (CPT) selection complete Assessment & Plan Assessment & Plan (1) Presence of CardioMEMS HF system: Code(s): Z95.818 - Presence of other cardiac implants and grafts Category: Medical Plan: monthly reporting Coding Level of Care Code Procedure Only Diagnoses Presence of CardioMEMS HF system Z95.818 CPT Codes Cardiac Device Check - Cardiac Device 17: 39537 - Remote monitoring of wireless pulmonary artery pressure sensor ([id number])
== END ==
PROVIDERS: PCP Internal Medicine; Visit Provider Nurse Practitioner Family
DX: Z45.09 Encounter for adjustment and management of other cardiac device (principal)
CPT/HCPCS: 93264

== ENCOUNTER 2024-06-08 09:15 | Outpatient (REF) | payer MEDICARE, MEDICAID, SELFPAY ==
[2024-06-08 14:34] LABS: MANUAL DIFF FLAG NO
[2024-06-08 14:44] LABS: Basophils Percent Auto 0.7 % (0-2); Eosinophils Absolute Auto 0.4 X10*3/uL (0.0-0.4); Eosinophils Percent Auto 9.2 % (0-4); Hematocrit 27.2 % (42.0-52.0); Hemoglobin 8.4 g/dl (14.0-18.0); Imm Gran Abs Auto 0.02 X10*3/uL (0.00-0.03); Imm Gran Pct Auto 0.5 % (0.0-0.4); Lymphocytes Absolute Auto 0.6 X10*3/uL (1.2-4.9); Lymphocytes Percent Auto 12.7 % (20-40); Mean Corpuscular HGB Conc 30.9 g/dl (31.0-36.0); Mean Corpuscular Hemoglobin 28.7 pg (27.0-33.0); Mean Corpuscular Volume 92.8 fL (80.0-98.0); Mean Platelet Volume 11.6 fL (9.4-12.4); Monocytes Absolute Auto 0.5 X10*3/uL (0.1-1.2); Monocytes Percent Auto 10.4 % (2-11); Neutrophils Absolute Auto 2.9 x10*3/uL (2.0-8.3); Neutrophils Percent Auto 66.5 % (45-73); Platelet Count 158 X10*3/uL (160-400); Red Blood Count 2.93 X10*6/uL (4.60-5.80); Red Cell Distribution Width 15.3 % (11.0-16.0); White Blood Count 4.3 X10*3/uL (4.8-10.8)
[2024-06-08 15:40] LABS: Parathyroid Hormone Intact 355.1 pg/mL (8.7-77.1)
[2024-06-08 18:25] LABS: Alanine Aminotransferase 16 U/L (0-40); Albumin Level 3.8 g/dL (3.5-5.0); Alkaline Phosphatase 78 U/L (39-117); Anion Gap 14 (12-20); Aspartate Amino Transferase 17 U/L (5-37); Bilirubin Total 0.6 mg/dL (0.0-1.0); Blood Urea Nitrogen 52 mg/dL (9-16); Calcium 8.3 mg/dL (8.4-10.2); Carbon Dioxide 24 mmol/L (22-29); Chloride 111 mmol/L (96-108); Estimated Glomerular Filt Rate 13; Glucose Random 88 mg/dL (60-115); Potassium 4.5 mmol/L (3.3-5.1); Sodium 144 mmol/L (135-145); Total Protein 6.7 g/dL (6.5-8.0)
== END 2024-06-08 09:16 | disposition home or self-care (01) ==
LOC: HO.CHCLDS 09:15
PROVIDERS: Visit Provider Internal Medicine Hypertension Specialist
DX: N18.4 Chronic kidney disease, stage 4 (severe) (principal)
CPT/HCPCS: 36415; 80053; 83970; 85025

== ENCOUNTER → 2024-06-10 23:59 | Outpatient (BNV) | payer MEDICARE, MEDICAID, SELFPAY ==
--- NOTE | 2024-06-10 17:19 | MHC.OFFVIS ---
Intake Visit Reasons: Remote Cardiomems- St Jr Allergies aspirin Adverse Reaction (Unknown, Verified 03/16/24 10:54) nose bleeds metformin Adverse Reaction (Unknown, Verified 03/16/24 10:54) hypoglycemia warfarin [From Coumadin] Adverse Reaction (Unknown, Verified 03/16/24 10:54) Nose Bleed apixaban Adverse Reaction (Verified 03/16/24 10:54) Nose Bleed clopidogrel Adverse Reaction (Verified 03/16/24 10:54) Nose Bleed [facility] Medical History Obesity (BMI 30-39.9) Elevated brain natriuretic peptide (BNP) level Lower extremity edema COPD (chronic obstructive pulmonary disease) LEONEL (obstructive sleep apnea) Dyspnea on minimal exertion COPD (chronic obstructive pulmonary disease) Smoker Left ventricular hypertrophy Smoking CKD (chronic kidney disease) Obesity Dyslipidemia Hypertension Diabetes mellitus Surgical History No pertinent past surgical history Family History Father No problems noted. Mother Diabetes Family/Other No problems noted. Social History Household Members: Significant Other Housing: Apartment Do you presently have visiting nurse or other home services: No Alcohol intake: current Alcohol intake frequency: a few times a month Patient Tobacco Use Status: Former Tobacco user e-Cigarette/Vaping Use: Never Used Second Hand Smoke Exposure: No Advance Directives Date on File: 08/23/22 service: No Current occupational status: disabled Office Procedures Cardiac Device Check Cardiac Device Check Details: Monitoring period dates: 05/11/24- 06/10/24 Optimal PA pressure range: PAD 16 mmhg Procedure code: 10280 BACKGROUND: Lewis is implanted with the CardioMEMS PA Sensor.? I use this technology to monitor PA pressures on a weekly basis to ensure patients are within their optimal range to prevent decompensation.? SUMMARY:? I utilized the remote monitoring platform ([facility]) to set optimal targets for pulmonary artery pressure thresholds as part of acute and chronic management of patient?s heart failure. During the period indicated above, I monitored the patient?s pulmonary artery pressures weekly via trend analysis and notification reports which provide alerts when patient?s PA pressures were outside of range to prompt immediate action in medication changes and communications.? The weekly reports are archived in the [facility] system which serve as a parallel record to document weekly PA pressures, medication changes, and clinical notes. I have reviewed readings on 05/11, 05/18, 05/25, 06/01, 06/08. His PAD readings have ranged between 29-34mmgh. His diuretics have note been adjusted and the request of nephrology. He has advanced CKD. Dr Baldwin and Dr Kim informed of readings. 74021 - Remote monitoring of wireless pulmonary artery pressure sensor Procedure code (CPT) selection complete Assessment & Plan Assessment & Plan (1) Presence of CardioMEMS HF system: Code(s): Z95.818 - Presence of other cardiac implants and grafts Category: Medical Plan: monthly report Coding Level of Care Code Procedure Only Diagnoses Presence of CardioMEMS HF system Z95.818 CPT Codes Cardiac Device Check - Cardiac Device 17: 26419 - Remote monitoring of wireless pulmonary artery pressure sensor ([id number])
== END ==
PROVIDERS: PCP Internal Medicine; Visit Provider Nurse Practitioner Family
DX: Z45.09 Encounter for adjustment and management of other cardiac device (principal)
CPT/HCPCS: 93264

== ENCOUNTER 2024-06-15 09:03 | Outpatient (AMB) | payer MEDICARE, MEDICAID, SELFPAY ==
[2024-06-15 09:19] VITALS: BP 132/70; PULSE 75; O2SAT 96; BMI 37.6
--- NOTE | 2024-06-15 09:19 | HO.NEPHOV_ITS ---
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 by: Self / Same As Patient Allergies aspirin Adverse Reaction (Unknown, Verified 06/15/24 09:21) nose bleeds metformin Adverse Reaction (Unknown, Verified 06/15/24 09:21) hypoglycemia warfarin [From Coumadin] Adverse Reaction (Unknown, Verified 06/15/24 09:21) Nose Bleed apixaban Adverse Reaction (Verified 06/15/24 09:21) Nose Bleed clopidogrel Adverse Reaction (Verified 06/15/24 09:21) Nose Bleed Medication List - Last Reconciled 06/15/24 by Ross Baldwin MD acetaminophen (Tylenol) 650 mg PO Q6H PRN albuterol sulfate 90 mcg/actuation (Ventolin HFA) inhalation albuterol sulfate mg inhalation blood-glucose meter (FreeStyle Lite Meter kit) As directed bumetanide 1 mg PO DAILY calcitriol 0.25 mcg PO DAILY cholecalciferol (vitamin D3) 25 mcg PO Q48H cinacalcet 30 mg PO DAILY clonidine HCl 0.2 mg PO TID 90 days gabapentin 100 mg PO TID glimepiride 1 mg PO DAILY hydralazine 100 mg PO TID labetalol 400 mg PO BID lancets (FreeStyle Lancets) As directed lidocaine 5% 1 patch topical DAILY PRN losartan 100 mg PO DAILY oxycodone-acetaminophen 5-325 mg 1 tab PO Q8H PRN simvastatin 20 mg PO BEDTIME sitagliptin phosphate (Januvia) 25 mg PO DAILY umeclidinium 62.5 mcg/actuation (Incruse Ellipta) 1 inh inhalation DAILY zolpidem 10 mg PO BEDTIME HPI Comments Details: 67-year-old male with a history of type 2 diabetes, HTN, CKD, carotid stenosis, COPD, LEONEL not on CPAP, diastolic CHF with preserved ejection fraction, He has advanced CKD Baseline creatinine is between 3.5 and 4.0 Currently on high dose of Bumex -Takes 1mg BID No edema No dyspnea 06/15/24 c/o SOB Gained some weight/edema WEnt ot [facility]SH Medical History Obesity (BMI 30-39.9) Elevated brain natriuretic peptide (BNP) level Lower extremity edema COPD (chronic obstructive pulmonary disease) LEONEL (obstructive sleep apnea) Dyspnea on minimal exertion COPD (chronic obstructive pulmonary disease) Smoker Left ventricular hypertrophy Smoking CKD (chronic kidney disease) Obesity Dyslipidemia Hypertension Diabetes mellitus Surgical History No pertinent past surgical history Family History Father No problems noted. Mother Diabetes Family/Other No problems noted. Social History Household Members: Significant Other Housing: Apartment Do you presently have visiting nurse or other home services: No Alcohol intake: current Alcohol intake frequency: a few times a month Patient Tobacco Use Status: Former Tobacco user e-Cigarette/Vaping Use: Never Used Second Hand Smoke Exposure: No Advance Directives Date on File: 08/23/22 service: No Current occupational status: disabled Physical Exam Vital Signs: Last Vital Signs Pulse 75 06/15/24 09:19 BP 132/70 06/15/24 09:19 Pulse Ox 96 06/15/24 09:19 Oxygen Delivery Method Room Air 06/15/24 09:19 BMI result Body Mass Index 37.6 Const General: comfortable; No acute distress Orientation/consciousness: patient oriented x3 Eyes General: appearance normal, both eyes and all related structures Visual Cedillo: normal visual cedillo by confrontation Neck Neck: Yes supple and Yes no JVD Resp Effort & Inspection: normal respiratory effort and respiratory effort not decreased Auscultation: rhonchi Cardio Palpation: no palpable S3 and no palpable S4 Heart sounds: no rubs and Other heart sounds present (crackles) GI Inspection: Yes normal to inspection Palpation (GI): Soft to palpation Percussion: Yes normal to percussion Auscultation: normal bowel sounds General: Yes no CVA tenderness Back/Spine/Pelvis Back: no CVA tenderness Skin General skin exam: no petechiae and no purpura Neuro General: patient oriented x3 and no focal motor deficits Extrem General: No clubbing and Yes edema (2+) Results Reviewed Nephrology Results: Hgb 8.4 g/dl (14.0-18.0) L 06/08/24 WBC 4.3 X10*3/uL (4.8-10.8) L 24/24 Plt Count 158 X10*3/uL (160-400) L 24/24 Sodium 144 mmol/L (135-145) 24/24 Potassium 4.5 mmol/L (3.3-5.1) 24/24 Chloride 111 mmol/L (96-108) H 06/08/24 Carbon Dioxide 24 mmol/L (22-29) 06/08/24 BUN 52 mg/dL (9-16) H 06/08/24 Creatinine 4.66 mg/dL (0.5-1.4) H* 06/08/24 Calcium 8.3 mg/dL (8.4-10.2) L 06/08/24 PTH Intact 355.1 pg/mL (8.7-77.1) H 24 Assessment & Plan Assessment & Plan (1) CKD (chronic kidney disease) stage 4, GFR 15-29 ml/min: Code(s): N18.4 - Chronic kidney disease, stage 4 (severe) Category: Medical Plan: Advanced CKD in a setting of longstanding diabetes mellitus hypertension obesity. Patient creatinine is around 3.5 to 4 mg/dL. Currently he has no signs or symptoms of uremia or fluid overload. INCREASE Bumex to 1 mg BID Add Metolazone 2.5 mg PO QD x 2 days DEcrease Losartan to 50 mg QD . Will follow up in 2 days and if no improvement, may need IV Diuretics +/- dialysis Encouraged him to keep monitoring his weight and watch for leg edema. Increase Bumex if he gains any weight. Continue with low-salt diet. Continue to avoid nephrotoxic agents. At this point there is no absolute indication for dialysis yet but approachign ESRD Discussed with pt and his (2) Essential hypertension: Code(s): I10 - Essential (primary) hypertension Category: Medical Plan: BP appears well controlled. We discussed weight loss and low-salt diet again. (3) Chronic diastolic congestive heart failure: Code(s): I50.32 - Chronic diastolic (congestive) heart failure Category: Medical Plan: Compensated. Follows with cardiology. (4) Obesity (BMI 30-39.9): Code(s): E66.9 - Obesity, unspecified Category: Medical Plan: Discussed weight loss. (5) Hyperparathyroidism: Code(s): E21.3 - Hyperparathyroidism, unspecified Category: Medical Plan: Repeat calcium is 8.4 He is currently on cinacalcet and Rocaltrol. Follow PTH Plan REfered to dialysis education program. He will be a good candidate for CCPD Discussed pre-emptive transplant REfered to [facility] and he missed this He Needs to reschedule Medications: New metolazone 2.5 mg PO DAILY 2 tabs 0RF Changed From losartan 100 mg PO DAILY To losartan 50 mg PO DAILY From bumetanide 1 mg daily - alternates with 1 mg BID 1 mg PO DAILY To bumetanide 1 mg PO BID Coding Level of Care Code Est Pt Level 4 (28315) Diagnoses CKD (chronic kidney disease) stage 4, GFR 15-29 ml/min N18.4 Essential hypertension I10 Chronic diastolic congestive heart failure I50.32 Obesity (BMI 30-39.9) E66.9 Hyperparathyroidism E21.3
== END 2024-06-15 09:52 | disposition home or self-care (01) ==
PROVIDERS: PCP Internal Medicine; Visit Provider Internal Medicine Hypertension Specialist
DX: I13.0 Hypertensive heart and chronic kidney disease with heart failure and stage 1 through stage 4 chronic kidney disease, or unspecified chronic kidney disease (principal); I50.32 Chronic diastolic (congestive) heart failure; N18.4 Chronic kidney disease, stage 4 (severe); E21.3 Hyperparathyroidism, unspecified; E66.9 Obesity, unspecified; Z68.37 Body mass index [BMI] 37.0-37.9, adult
CPT/HCPCS: 99214

== ENCOUNTER → 2024-06-15 09:03 | Outpatient (BNVA) | payer MEDICARE, MEDICAID, SELFPAY | PROVIDERS: PCP Internal Medicine; Visit Provider Internal Medicine Hypertension Specialist | DX: I13.0 Hypertensive heart and chronic kidney disease with heart failure and stage 1 through stage 4 chronic kidney disease, or unspecified chronic kidney disease (principal); I50.32 Chronic diastolic (congestive) heart failure; E11.22 Type 2 diabetes mellitus with diabetic chronic kidney disease; N18.4 Chronic kidney disease, stage 4 (severe); E21.3 Hyperparathyroidism, unspecified; E66.9 Obesity, unspecified; Z68.37 Body mass index [BMI] 37.0-37.9, adult | CPT/HCPCS: 99212 ==

== ENCOUNTER 2024-06-25 13:01 | Outpatient (AMB) | payer MEDICARE, MEDICAID, SELFPAY ==
--- NOTE | 2024-06-25 13:03 | HO.NEPHOV ---
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 Accompanied by: Spouse Allergies aspirin Adverse Reaction (Unknown, Verified 06/25/24 13:06) nose bleeds metformin Adverse Reaction (Unknown, Verified 06/25/24 13:06) hypoglycemia warfarin [From Coumadin] Adverse Reaction (Unknown, Verified 06/25/24 13:06) Nose Bleed apixaban Adverse Reaction (Verified 06/25/24 13:06) Nose Bleed clopidogrel Adverse Reaction (Verified 06/25/24 13:06) Nose Bleed Medication List - Last Reconciled 06/25/24 by Ross Baldwin MD acetaminophen (Tylenol) 650 mg PO Q6H PRN albuterol sulfate 90 mcg/actuation (Ventolin HFA) inhalation albuterol sulfate mg inhalation blood-glucose meter (FreeStyle Lite Meter kit) As directed bumetanide 1 mg PO BID calcitriol 0.25 mcg PO DAILY cholecalciferol (vitamin D3) 25 mcg PO Q48H cinacalcet 30 mg PO DAILY clonidine HCl 0.2 mg PO TID 90 days gabapentin 100 mg PO TID glimepiride 1 mg PO DAILY hydralazine 100 mg PO TID labetalol 400 mg PO BID lancets (FreeStyle Lancets) As directed lidocaine 5% 1 patch topical DAILY PRN losartan 50 mg PO DAILY metolazone 2.5 mg PO DAILY oxycodone-acetaminophen 5-325 mg 1 tab PO Q8H PRN simvastatin 20 mg PO BEDTIME sitagliptin phosphate (Januvia) 25 mg PO DAILY umeclidinium 62.5 mcg/actuation (Incruse Ellipta) 1 inh inhalation DAILY zolpidem 10 mg PO BEDTIME HPI Comments Details: 67-year-old male with a history of type 2 diabetes, HTN, CKD, carotid stenosis, COPD, LEONEL not on CPAP, diastolic CHF with preserved ejection fraction, He has advanced CKD Baseline creatinine is between 3.5 and 4.0 Currently on high dose of Bumex -Takes 1mg BID No edema No dyspnea 06/15/24 c/o SOB;Gained some weight/edema ;Went to [facility] 06/25/24 After adding metolazone 2 doses and increasing Bumex to 1 mg b.i.d. he has lost about 7 lb. His breathing has improved. He feels better [facility] Medical History Obesity (BMI 30-39.9) Elevated brain natriuretic peptide (BNP) level Lower extremity edema COPD (chronic obstructive pulmonary disease) LEONEL (obstructive sleep apnea) Dyspnea on minimal exertion COPD (chronic obstructive pulmonary disease) Smoker Left ventricular hypertrophy Smoking CKD (chronic kidney disease) Obesity Dyslipidemia Hypertension Diabetes mellitus Surgical History No pertinent past surgical history Family History Father No problems noted. Mother Diabetes Family/Other No problems noted. Social History Household Members: Significant Other Housing: Apartment Do you presently have visiting nurse or other home services: No Alcohol intake: current Alcohol intake frequency: a few times a month Patient Tobacco Use Status: Former Tobacco user e-Cigarette/Vaping Use: Never Used Second Hand Smoke Exposure: No Advance Directives Date on File: 08/23/22 service: No Current occupational status: disabled Physical Exam Vital Signs: Last Vital Signs Pulse 69 06/25/24 13:04 BP 120/60 06/25/24 13:04 Pulse Ox 99 06/25/24 13:04 Oxygen Delivery Method Room Air 06/25/24 13:04 BMI result Body Mass Index 36.5 Const General: comfortable; No acute distress Orientation/consciousness: patient oriented x3 Eyes General: appearance normal, both eyes and all related structures Neck Neck: Yes supple and Yes no JVD Resp Effort & Inspection: normal respiratory effort and respiratory effort not decreased Auscultation: rhonchi Cardio Palpation: no palpable S3 and no palpable S4 Heart sounds: no rubs GI Inspection: Yes normal to inspection Palpation (GI): Soft to palpation Percussion: Yes normal to percussion Auscultation: normal bowel sounds General: Yes no CVA tenderness Back/Spine/Pelvis Back: no CVA tenderness Skin General skin exam: no petechiae and no purpura Neuro General: patient oriented x3 and no focal motor deficits Extrem General: No clubbing Results Reviewed Nephrology Results: Hgb 8.4 g/dl (14.0-18.0) L 24 WBC 4.3 X10*3/uL (4.8-10.8) L 24 Plt Count 158 X10*3/uL (160-400) L 06/08/24 Sodium 144 mmol/L (135-145) 06/08/24 Potassium 4.5 mmol/L (3.3-5.1) 06/08/24 Chloride 111 mmol/L (96-108) H 06/08/24 Carbon Dioxide 24 mmol/L (22-29) 24 BUN 52 mg/dL (9-16) H 24 Creatinine 4.66 mg/dL (0.5-1.4) H* 06/08/24 Calcium 8.3 mg/dL (8.4-10.2) L 24 PTH Intact 355.1 pg/mL (8.7-77.1) H 24 Assessment & Plan Assessment & Plan (1) CKD (chronic kidney disease) stage 4, GFR 15-29 ml/min: Code(s): N18.4 - Chronic kidney disease, stage 4 (severe) Category: Medical Plan: Advanced CKD in a setting of longstanding diabetes mellitus hypertension obesity. Patient creatinine is around 3.5 to 4 mg/dL. Currently he has no signs or symptoms of uremia . Keep Bumex 1 mg BID Continue Losartan 50 mg QD Encouraged him to keep monitoring his weight and watch for leg edema. Increase Bumex if he gains any weight. Continue with low-salt diet. Continue to avoid nephrotoxic agents. At this point there is no absolute indication for dialysis yet but approaching ESRD Discussed with pt and his Labs ordered for next week (2) Essential hypertension: Code(s): I10 - Essential (primary) hypertension Category: Medical Plan: BP appears well controlled. We discussed weight loss and low-salt diet again. (3) Chronic diastolic congestive heart failure: Code(s): I50.32 - Chronic diastolic (congestive) heart failure Category: Medical Plan: Compensated. Follows with cardiology. (4) Obesity (BMI 30-39.9): Code(s): E66.9 - Obesity, unspecified Category: Medical Plan: Discussed weight loss. (5) Hyperparathyroidism: Code(s): E21.3 - Hyperparathyroidism, unspecified Category: Medical Plan: Repeat calcium is 8.4 He is currently on cinacalcet and Rocaltrol. Follow PTH Plan REfered to dialysis education program. He will be a good candidate for CCPD Discussed pre-emptive transplant REfered to [facility] and he missed this He Needs to reschedule Orders: Orders Basic Metabolic Panel 2 Weeks N18.4 - Chronic kidney disease, stage 4 (severe) Complete Blood Count Auto Diff 2 Weeks N18.4 - Chronic kidney disease, stage 4 (severe) Coding Level of Care Code Est Pt Level 4 (61651) Diagnoses CKD (chronic kidney disease) stage 4, GFR 15-29 ml/min N18.4 Essential hypertension I10 Chronic diastolic congestive heart failure I50.32 Obesity (BMI 30-39.9) E66.9 Hyperparathyroidism E21.3
[2024-06-25 13:04] VITALS: BP 120/60; PULSE 69; O2SAT 99; BMI 36.5
== END 2024-06-25 13:16 | disposition home or self-care (01) ==
PROVIDERS: PCP Internal Medicine; Visit Provider Internal Medicine Hypertension Specialist
DX: I13.0 Hypertensive heart and chronic kidney disease with heart failure and stage 1 through stage 4 chronic kidney disease, or unspecified chronic kidney disease (principal); N18.4 Chronic kidney disease, stage 4 (severe); I50.32 Chronic diastolic (congestive) heart failure; E21.3 Hyperparathyroidism, unspecified; E66.9 Obesity, unspecified
CPT/HCPCS: 99214

== ENCOUNTER → 2024-06-25 13:01 | Outpatient (BNVA) | payer MEDICARE, MEDICAID, SELFPAY | PROVIDERS: PCP Internal Medicine; Visit Provider Internal Medicine Hypertension Specialist | DX: I13.0 Hypertensive heart and chronic kidney disease with heart failure and stage 1 through stage 4 chronic kidney disease, or unspecified chronic kidney disease (principal); E11.22 Type 2 diabetes mellitus with diabetic chronic kidney disease; I50.32 Chronic diastolic (congestive) heart failure; N18.4 Chronic kidney disease, stage 4 (severe); E66.9 Obesity, unspecified; E21.3 Hyperparathyroidism, unspecified | CPT/HCPCS: 99212 ==

== ENCOUNTER 2024-07-06 10:31 | Outpatient (AMB) | payer MEDICARE, MEDICAID, SELFPAY ==
--- NOTE | 2024-07-06 10:33 | A.OFFVIS_ITS ---
Intake Visit Reasons: 1yr follow up s/p Carotid US 04/12/24 Intake Note: Patient presents for follow up carotid US. No complaints. Accompanied by: Self / Same As Patient Allergies aspirin Adverse Reaction (Unknown, Verified 06/25/24 13:06) nose bleeds metformin Adverse Reaction (Unknown, Verified 06/25/24 13:06) hypoglycemia warfarin [From Coumadin] Adverse Reaction (Unknown, Verified 06/25/24 13:06) Nose Bleed apixaban Adverse Reaction (Verified 06/25/24 13:06) Nose Bleed clopidogrel Adverse Reaction (Verified 06/25/24 13:06) Nose Bleed HPI HPI 1yr follow up s/p Carotid US 04/12/24: Details: Very pleasant 68-year-old for follow-up regarding his carotid disease. He reports no significant issues in terms of his carotids. Quit smoking about a ye ar back. His congestive heart and pneumonia appear to be within check. Did have placement of a CardioMEMS monitor about a year ago. At the current time denies any shortness of breath. He denies any significant lower extremity swelling. In terms of his carotids he denies any lateralizing signs or symptoms, speech disturbances, visual field deficits. Now presents to us for routine carotid surveillance follow-up [facility] Medical History Obesity (BMI 30-39.9) Elevated brain natriuretic peptide (BNP) level Lower extremity edema COPD (chronic obstructive pulmonary disease) LEONEL (obstructive sleep apnea) Dyspnea on minimal exertion COPD (chronic obstructive pulmonary disease) Smoker Left ventricular hypertrophy Smoking CKD (chronic kidney disease) Obesity Dyslipidemia Hypertension Diabetes mellitus Surgical History No pertinent past surgical history Family History Father No problems noted. Mother Diabetes Family/Other No problems noted. Social History Household Members: Significant Other Housing: Apartment Do you presently have visiting nurse or other home services: No Alcohol intake: current Alcohol intake frequency: a few times a month Patient Tobacco Use Status: Former Tobacco user e-Cigarette/Vaping Use: Never Used Second Hand Smoke Exposure: No Advance Directives Date on File: 08/23/22 service: No Current occupational status: disabled Review of Systems Const All systems reviewed & are unremarkable except as noted in HPI and below Reports no additional complaints ENT Reports Normal hearing present Card Denies chest pain, Denies chest pain at rest, Denies chest pain with activity and Denies pedal edema Resp Denies cough GI Denies abdominal pain Musc Denies abnormal gait, Denies muscle cramps and Denies radiating pain into limb Skin/Breast Denies skin ulcer and Denies wounds Neuro Reports Normal hearing present and Denies abnormal gait Psych Reports no additional complaints Physical Exam Const General: cooperative, healthy appearing and comfortable Orientation/consciousness: oriented to person, oriented to place and oriented to time HEENT Head: Yes normal to inspection Neck Neck: Yes normal visual inspection Carotids: no bruits Chest Chest palpation & inspection: normal inspection of the chest Resp Effort & Inspection: normal respiratory effort and able to speak in complete sentences Auscultation: clear to auscultation bilaterally, no crackles, no rales, no rhonchi and no wheezes Cardio Rate: regular rate Rhythm: regular rhythm Heart sounds: S1 normal heart sound present and S2 normal heart sound present Bruits: no carotid bruits Peripheral pulses: Peripheral pulses 2+ throughout GI Inspection: Yes normal to inspection Skin Wounds: no wounds Hair: normal Neuro General: oriented to person, oriented to place and oriented to time Cranial nerves: Yes CN's II-XII intact bilaterally and Yes Normal hearing present Cognition (Neuro): normal cognition Motor exam (neuro): 5/5 motor strength present throughout Extrem Other: venous exam: No significant superficial varicosities or spider telangiectasias, minimal edema General: No clubbing, No cyanosis and No edema Psych Appearance: grossly normal Mental Status: mental status grossly normal Speech and movement: Normal speech and movement present Results Reviewed Results Reviewed: Carotid testing dated 04/12/2024 demonstrates right-sided 0-49 left side 50-79% although peak systolic is only 187. Written report and images were reviewed. Assessment & Plan Assessment & Plan (1) Carotid stenosis: Code(s): I65.29 - Occlusion and stenosis of unspecified carotid artery Category: Medical Qualifiers: Laterality: left Qualified Code(s): I65.22 - Occlusion and stenosis of left carotid artery Plan: In short patient has asymptomatic carotid disease. We have reviewed signs and symptoms of a stroke. We also discussed risk factor modification inclusive a healthy diet low in cholesterol. The patient will follow up with us with surveillance ultrasound of the carotids 1 year. Should there be any changes or signs or symptoms of a stroke we will be happy to see them back sooner. Thank you for allowing us to participate in this patient's care. If there are any questions or concerns please do not hesitate to contact us. Please note a longitudinal relationship has been created with the patient and we have been following and surveillance this chronic condition. Orders: Orders US carotid duplex BI 1 Year I65.22 - Occlusion and stenosis of left carotid artery Coding Level of Care Code Est Pt Level 4 (08768) Complex EM visit Add On G2211 Diagnoses Stenosis of left carotid artery I65.22 Laterality: left
== END 2024-07-06 10:57 | disposition home or self-care (01) ==
PROVIDERS: PCP Internal Medicine; Visit Provider Surgery Vascular Surgery
DX: I65.22 Occlusion and stenosis of left carotid artery (principal)
CPT/HCPCS: 99214; G2211

== ENCOUNTER 2024-07-06 11:25 | Outpatient (REF) | payer MEDICARE, MEDICAID, SELFPAY ==
[2024-07-06 14:21] LABS: MANUAL DIFF FLAG NO
[2024-07-06 14:42] LABS: Basophils Percent Auto 0.6 % (0-2); Eosinophils Absolute Auto 0.6 X10*3/uL (0.0-0.4); Eosinophils Percent Auto 10.9 % (0-4); Hemoglobin 9.3 g/dl (14.0-18.0); Imm Gran Abs Auto 0.01 X10*3/uL (0.00-0.03); Imm Gran Pct Auto 0.2 % (0.0-0.4); Lymphocytes Absolute Auto 0.9 X10*3/uL (1.2-4.9); Lymphocytes Percent Auto 15.9 % (20-40); Mean Corpuscular HGB Conc 32.1 g/dl (31.0-36.0); Mean Corpuscular Hemoglobin 28.4 pg (27.0-33.0); Mean Corpuscular Volume 88.4 fL (80.0-98.0); Mean Platelet Volume 11.5 fL (9.4-12.4); Monocytes Absolute Auto 0.5 X10*3/uL (0.1-1.2); Monocytes Percent Auto 8.3 % (2-11); Neutrophils Absolute Auto 3.5 x10*3/uL (2.0-8.3); Neutrophils Percent Auto 64.1 % (45-73); Platelet Count 181 X10*3/uL (160-400); Red Blood Count 3.28 X10*6/uL (4.60-5.80); Red Cell Distribution Width 14.1 % (11.0-16.0); White Blood Count 5.4 X10*3/uL (4.8-10.8)
[2024-07-06 14:49] LABS: Anion Gap 12 (12-20); Blood Urea Nitrogen 55 mg/dL (9-16); Calcium 8.6 mg/dL (8.4-10.2); Carbon Dioxide 25 mmol/L (22-29); Chloride 109 mmol/L (96-108); Glucose Random 96 mg/dL (60-115); Potassium 3.9 mmol/L (3.3-5.1); Sodium 142 mmol/L (135-145)
[2024-07-06 16:19] LABS: Estimated Glomerular Filt Rate 10
== END 2024-07-06 11:26 | disposition home or self-care (01) ==
LOC: HO.CHCLDS 11:25
PROVIDERS: Visit Provider Internal Medicine Hypertension Specialist
DX: N18.4 Chronic kidney disease, stage 4 (severe) (principal); I65.22 Occlusion and stenosis of left carotid artery
CPT/HCPCS: 36415; 80048; 85025; 99212

== ENCOUNTER → 2024-07-15 23:59 | Outpatient (BNV) | payer MEDICARE, SELFPAY ==
--- NOTE | 2024-08-03 16:03 | A.OFFVIS_ITS ---
Intake Visit Reasons: Remote Cardiomems- St Jr Allergies aspirin Adverse Reaction (Unknown, Verified 07/27/24 11:45) nose bleeds metformin Adverse Reaction (Unknown, Verified 07/27/24 11:45) hypoglycemia warfarin [From Coumadin] Adverse Reaction (Unknown, Verified 07/27/24 11:45) Nose Bleed apixaban Adverse Reaction (Verified 07/27/24 11:45) Nose Bleed clopidogrel Adverse Reaction (Verified 07/27/24 11:45) Nose Bleed [facility] Medical History Obesity (BMI 30-39.9) Elevated brain natriuretic peptide (BNP) level Lower extremity edema COPD (chronic obstructive pulmonary disease) LEONEL (obstructive sleep apnea) Dyspnea on minimal exertion COPD (chronic obstructive pulmonary disease) Smoker Left ventricular hypertrophy Smoking CKD (chronic kidney disease) Obesity Dyslipidemia Hypertension Diabetes mellitus Surgical History No pertinent past surgical history Family History Father No problems noted. Mother Diabetes Family/Other No problems noted. Social History Household Members: Significant Other Housing: Apartment Do you presently have visiting nurse or other home services: No Alcohol intake: current Alcohol intake frequency: a few times a month Patient Tobacco Use Status: Former Tobacco user e-Cigarette/Vaping Use: Never Used Second Hand Smoke Exposure: No Advance Directives Date on File: 08/23/22 service: No Current occupational status: disabled Office Procedures Cardiac Device Check Cardiac Device Check Details: Monitoring period dates: 06/11/24- 07/15/24 Optimal PA pressure range: PAD goal 16mmhg Procedure code: 81798 BACKGROUND: Lewis is implanted with the CardioMEMS PA Sensor.? I use this technology to monitor PA pressures on a weekly basis to ensure patients are within their optimal range to prevent decompensation.? SUMMARY:? I utilized the remote monitoring platform ([employer]) to set optimal targets for pulmonary artery pressure thresholds as part of acute and chronic management of patient?s heart failure. During the period indicated above, I monitored the patient?s pulmonary artery pressures weekly via trend analysis and notification reports which provide alerts when patient?s PA pressures were outside of range to prompt immediate action in medication changes and communications.? The weekly reports are archived in the [employer] system which serve as a parallel record to document weekly PA pressures, medication changes, and clinical notes. I have reviewed readings on 06/14, 06/21, 06/28, 07/05, 07/09, 07/15. His PAD reading has ranged between 34 and 22mmhg. His diuretics had been increased by nephrology with improvement in pressure readings. He has advanced CKD, with last Cr in 5s. 65197 - Remote monitoring of wireless pulmonary artery pressure sensor Procedure code (CPT) selection complete Assessment & Plan Assessment & Plan (1) Presence of CardioMEMS HF system: Code(s): Z95.818 - Presence of other cardiac implants and grafts Category: Medical Plan: monthly report - (this documentation was delayed due to scanning issues) Coding Level of Care Code Procedure Only Diagnoses Presence of CardioMEMS HF system Z95.818 CPT Codes Cardiac Device Check - Cardiac Device 17: 48369 - Remote monitoring of wireless pulmonary artery pressure sensor ([id number])
== END ==
PROVIDERS: PCP Internal Medicine; Visit Provider Nurse Practitioner Family
DX: Z45.09 Encounter for adjustment and management of other cardiac device (principal)
CPT/HCPCS: 93264

== ENCOUNTER 2024-07-27 11:10 | Outpatient (AMB) | payer MEDICARE, SELFPAY ==
--- NOTE | 2024-07-27 11:40 | HO.NEPHOV ---
Vital Signs 07/27/24 11:41 Height 5 ft 7 in Weight 229 lb BMI 35.9 BP 128/72 Blood Pressure Location Rt brachial Position Sitting Pulse 80 Pulse Source Pulse Oximeter Pulse Oximetry (%) 97 Oxygen Delivery Method Room Air Intake Visit Reasons: CKD Healthcare Advisory Services Manager Required: No Accompanied by: Self / Same As Patient Allergies aspirin Adverse Reaction (Unknown, Verified 07/27/24 11:45) nose bleeds metformin Adverse Reaction (Unknown, Verified 07/27/24 11:45) hypoglycemia warfarin [From Coumadin] Adverse Reaction (Unknown, Verified 07/27/24 11:45) Nose Bleed apixaban Adverse Reaction (Verified 07/27/24 11:45) Nose Bleed clopidogrel Adverse Reaction (Verified 07/27/24 11:45) Nose Bleed Medication List - Last Reconciled 07/27/24 by Ross Baldwin MD acetaminophen (Tylenol) 650 mg PO Q6H PRN albuterol sulfate 90 mcg/actuation (Ventolin HFA) inhalation albuterol sulfate mg inhalation blood-glucose meter (FreeStyle Lite Meter kit) As directed bumetanide 1 mg PO BID calcitriol 0.25 mcg PO DAILY cholecalciferol (vitamin D3) 25 mcg PO Q48H cinacalcet 30 mg PO DAILY clonidine HCl 0.2 mg PO TID 90 days gabapentin 100 mg PO TID glimepiride 1 mg PO DAILY hydralazine 100 mg PO TID labetalol 400 mg PO BID lancets (FreeStyle Lancets) As directed lidocaine 5% 1 patch topical DAILY PRN losartan 50 mg (1/2 x 100 mg) PO DAILY oxycodone-acetaminophen 5-325 mg 1 tab PO Q8H PRN simvastatin 20 mg PO BEDTIME sitagliptin phosphate (Januvia) 25 mg PO DAILY umeclidinium 62.5 mcg/actuation (Incruse Ellipta) 1 inh inhalation DAILY zolpidem 10 mg PO BEDTIME HPI Comments Details: 67-year-old male with a history of type 2 diabetes, HTN, CKD, carotid stenosis, COPD, LEONEL not on CPAP, diastolic CHF with preserved ejection fraction, He has advanced CKD Baseline creatinine is between 3.5 and 4.0 Currently on high dose of Bumex -Takes 1mg BID No edema No dyspnea 06/15/24 c/o SOB;Gained some weight/edema ;Went to [facility] 06/25/24 After adding metolazone 2 doses and increasing Bumex to 1 mg b.i.d. he has lost about 7 lb. His breathing has improved. He feels better 07/27/24 doing much better seen by cardiology [facility] Medical History Obesity (BMI 30-39.9) Elevated brain natriuretic peptide (BNP) level Lower extremity edema COPD (chronic obstructive pulmonary disease) LEONEL (obstructive sleep apnea) Dyspnea on minimal exertion COPD (chronic obstructive pulmonary disease) Smoker Left ventricular hypertrophy Smoking CKD (chronic kidney disease) Obesity Dyslipidemia Hypertension Diabetes mellitus Surgical History No pertinent past surgical history Family History Father No problems noted. Mother Diabetes Family/Other No problems noted. Social History Household Members: Significant Other Housing: Apartment Do you presently have visiting nurse or other home services: No Alcohol intake: current Alcohol intake frequency: a few times a month Patient Tobacco Use Status: Former Tobacco user e-Cigarette/Vaping Use: Never Used Second Hand Smoke Exposure: No Advance Directives Date on File: 08/23/22 service: No Current occupational status: disabled Physical Exam Vital Signs: BMI result Body Mass Index 35.9 Results Reviewed Nephrology Results: Hgb 9.3 g/dl (14.0-18.0) L 07/06/24 WBC 5.4 X10*3/uL (4.8-10.8) 07/06/24 Plt Count 181 X10*3/uL (160-400) 07/06/24 Sodium 142 mmol/L (135-145) 07/06/24 Potassium 3.9 mmol/L (3.3-5.1) 07/06/24 Chloride 109 mmol/L (96-108) H 07/06/24 Carbon Dioxide 25 mmol/L (22-29) 07/06/24 BUN 55 mg/dL (9-16) H 07/06/24 Creatinine 5.54 mg/dL (0.5-1.4) H* 07/06/24 Calcium 8.6 mg/dL (8.4-10.2) 07/06/24 PTH Intact 355.1 pg/mL (8.7-77.1) H 06/08/24 Assessment & Plan Assessment & Plan (1) CKD (chronic kidney disease) stage 4, GFR 15-29 ml/min: Code(s): N18.4 - Chronic kidney disease, stage 4 (severe) Category: Medical Plan: Advanced CKD in a setting of longstanding diabetes mellitus hypertension obesity. Patient creatinine is around 3.5 to 4 mg/dL. Currently he has no signs or symptoms of uremia . Keep Bumex 1 mg BID Continue Losartan 50 mg QD Encouraged him to keep monitoring his weight and watch for leg edema. Increase Bumex if he gains any weight. Continue with low-salt diet. Continue to avoid nephrotoxic agents. At this point there is no absolute indication for dialysis yet but approaching ESRD Discussed with pt and his (2) Essential hypertension: Code(s): I10 - Essential (primary) hypertension Category: Medical Plan: BP appears well controlled. We discussed weight loss and low-salt diet again. (3) Chronic diastolic congestive heart failure: Code(s): I50.32 - Chronic diastolic (congestive) heart failure Category: Medical Plan: Compensated. Follows with cardiology. (4) Obesity (BMI 30-39.9): Code(s): E66.9 - Obesity, unspecified Category: Medical Plan: Discussed weight loss. (5) Hyperparathyroidism: Code(s): E21.3 - Hyperparathyroidism, unspecified Category: Medical Plan: Repeat calcium is 8.4 He is currently on cinacalcet and Rocaltrol. Follow PTH Plan Referred to dialysis education program. He will be a good candidate for CCPD Discussed pre-emptive transplant REfered to [facility] - has appointment on 07/29/24 Orders: Orders Basic Metabolic Panel 4 Weeks I10 - Essential (primary) hypertension, N18.4 - Chronic kidney disease, stage 4 (severe) Parathyroid Hormone Intact 4 Weeks I10 - Essential (primary) hypertension, N18.4 - Chronic kidney disease, stage 4 (severe) Complete Blood Count no Diff 4 Weeks I10 - Essential (primary) hypertension, N18.4 - Chronic kidney disease, stage 4 (severe) Phosphorus 4 Weeks I10 - Essential (primary) hypertension, N18.4 - Chronic kidney disease, stage 4 (severe) Medications: New losartan 50 mg (1/2 x 100 mg) PO DAILY 90 tabs 0RF Discontinued metolazone Discontinued Reason: Patient no longer taking 2.5 mg PO DAILY 2 tabs 0RF Coding Level of Care Code Est Pt Level 4 (57059) Complex EM visit Add On G2211 Diagnoses CKD (chronic kidney disease) stage 4, GFR 15-29 ml/min N18.4 Essential hypertension I10 Chronic diastolic congestive heart failure I50.32 Obesity (BMI 30-39.9) E66.9 Hyperparathyroidism E21.3
[2024-07-27 11:41] VITALS: BP 128/72; PULSE 80; O2SAT 97; BMI 35.9
== END 2024-07-27 11:52 | disposition home or self-care (01) ==
PROVIDERS: PCP Internal Medicine; Visit Provider Internal Medicine Hypertension Specialist
DX: I13.0 Hypertensive heart and chronic kidney disease with heart failure and stage 1 through stage 4 chronic kidney disease, or unspecified chronic kidney disease (principal); N18.4 Chronic kidney disease, stage 4 (severe); I50.32 Chronic diastolic (congestive) heart failure; E21.3 Hyperparathyroidism, unspecified; E66.9 Obesity, unspecified; Z68.35 Body mass index [BMI] 35.0-35.9, adult
CPT/HCPCS: 99214; G2211

== ENCOUNTER → 2024-07-27 11:10 | Outpatient (BNVA) | payer MEDICARE, MEDICAID, SELFPAY | PROVIDERS: PCP Internal Medicine; Visit Provider Internal Medicine Hypertension Specialist | DX: I13.0 Hypertensive heart and chronic kidney disease with heart failure and stage 1 through stage 4 chronic kidney disease, or unspecified chronic kidney disease (principal); N18.4 Chronic kidney disease, stage 4 (severe); I50.32 Chronic diastolic (congestive) heart failure; E66.9 Obesity, unspecified; E21.3 Hyperparathyroidism, unspecified; Z68.35 Body mass index [BMI] 35.0-35.9, adult | CPT/HCPCS: 99212 ==

== ENCOUNTER 2024-08-04 09:14 | Outpatient (AMB) | payer MEDICARE, SELFPAY ==
[2024-08-04 09:21] VITALS: BP 124/60; PULSE 60; BMI 36.3
--- NOTE | 2024-08-04 09:21 | MHC.OFFVIS ---
Vital Signs 08/04/24 09:21 Height 5 ft 7 in Weight 231 lb 7.766 oz BMI 36.3 BP 124/60 Blood Pressure Location Lt brachial Position Sitting Pulse 60 Pulse Source Pulse Oximeter Intake Visit Reasons: 6 mth f/up Filter Pulp Washer Required: No Accompanied by: Self / Same As Patient Allergies aspirin Adverse Reaction (Unknown, Verified 07/27/24 11:45) nose bleeds metformin Adverse Reaction (Unknown, Verified 07/27/24 11:45) hypoglycemia warfarin [From Coumadin] Adverse Reaction (Unknown, Verified 07/27/24 11:45) Nose Bleed apixaban Adverse Reaction (Verified 07/27/24 11:45) Nose Bleed clopidogrel Adverse Reaction (Verified 07/27/24 11:45) Nose Bleed Medication List - Last Reconciled 08/04/24 by Jose Kim MD acetaminophen (Tylenol) 650 mg PO Q6H PRN albuterol sulfate 90 mcg/actuation (Ventolin HFA) inhalation albuterol sulfate mg inhalation blood-glucose meter (FreeStyle Lite Meter kit) As directed bumetanide 1 mg PO BID calcitriol 0.25 mcg PO DAILY cholecalciferol (vitamin D3) 25 mcg PO Q48H cinacalcet 30 mg PO DAILY clonidine HCl 0.2 mg PO TID 90 days gabapentin 100 mg PO TID glimepiride 1 mg PO DAILY hydralazine 100 mg PO TID labetalol 400 mg PO BID lancets (FreeStyle Lancets) As directed lidocaine 5% 1 patch topical DAILY PRN losartan 50 mg PO DAILY oxycodone-acetaminophen 5-325 mg 1 tab PO Q8H PRN simvastatin 20 mg PO BEDTIME sitagliptin phosphate (Januvia) 25 mg PO DAILY umeclidinium 62.5 mcg/actuation (Incruse Ellipta) 1 inh inhalation DAILY zolpidem 10 mg PO BEDTIME HPI Comments Details: Lewis returns for diastolic congestive heart failure. He also has CardioMEMS in place and is being monitored through that. Multiple cardiovascular risk factors including obesity, diabetes, hypertension, dyslipidemia, chronic kidney disease, obstructive sleep apnea among others. From cardiac, denies any symptoms. No angina or shortness of breath or in fact anything cardiac sounding at all. Might be starting dialysis soon. [facility] Medical History Obesity (BMI 30-39.9) Elevated brain natriuretic peptide (BNP) level Lower extremity edema COPD (chronic obstructive pulmonary disease) LEONEL (obstructive sleep apnea) Dyspnea on minimal exertion COPD (chronic obstructive pulmonary disease) Smoker Left ventricular hypertrophy Smoking CKD (chronic kidney disease) Obesity Dyslipidemia Hypertension Diabetes mellitus Surgical History No pertinent past surgical history Family History Father No problems noted. Mother Diabetes Family/Other No problems noted. Social History Household Members: Significant Other Housing: Apartment Do you presently have visiting nurse or other home services: No Alcohol intake: current Alcohol intake frequency: a few times a month Patient Tobacco Use Status: Former Tobacco user e-Cigarette/Vaping Use: Never Used Second Hand Smoke Exposure: No Advance Directives Date on File: 08/23/22 service: No Current occupational status: disabled Review of Systems Const Denies chills, Denies fatigue, Denies fever(s), Denies frequent falls, Denies weakness, Denies weight gain and Denies weight loss ENT Denies dizziness Card Denies chest pain, Denies leg edema, Denies lightheadedness, Denies palpitations, Denies dyspnea and Denies dyspnea on exertion Resp Denies cough, Denies dyspnea and Denies dyspnea on exertion GI Denies hematochezia Musc Denies abnormal gait, Denies muscle weakness, Denies numbness, Denies radiating pain into limb and Denies tingling Neuro Denies abnormal gait, Denies dizziness, Denies frequent falls, Denies numbness, Denies tingling and Denies weakness Endo Denies fatigue and Denies palpitations Physical Exam Vital Signs: Last Vital Signs Pulse 60 08/04/24 09:21 BP 124/60 08/04/24 09:21 BMI result Body Mass Index 36.3 Const General: comfortable and no acute distress Orientation/consciousness: patient oriented x3 HEENT Other: Unremarkable Head: Yes normal to inspection Neck Neck: Yes normal visual inspection Chest Chest palpation & inspection: normal inspection of the chest Resp Auscultation: clear to auscultation bilaterally Cardio Palpation: normal PMI Heart sounds: S1 normal heart sound present, S2 normal heart sound present, no gallops, no murmurs and no rubs GI Palpation (GI): Soft to palpation Back/Spine/Pelvis Other: unremarkable Skin General skin exam: no rashes or lesions noted Neuro General: patient oriented x3 Extrem General: Yes normal to inspection Psych Mental Status: mental status grossly normal Assessment & Plan Assessment & Plan (1) CKD (chronic kidney disease) stage 4, GFR 15-29 ml/min: Code(s): N18.4 - Chronic kidney disease, stage 4 (severe) Category: Medical (2) Chronic diastolic congestive heart failure: Code(s): I50.32 - Chronic diastolic (congestive) heart failure Category: Medical (3) Essential hypertension: Code(s): I10 - Essential (primary) hypertension Category: Medical (4) Carotid stenosis: Code(s): I65.29 - Occlusion and stenosis of unspecified carotid artery Category: Medical Qualifiers: Laterality: left Qualified Code(s): I65.22 - Occlusion and stenosis of left carotid artery (5) First degree heart block: Code(s): I44.0 - Atrioventricular block, first degree Category: Medical (6) RBBB: Code(s): I45.10 - Unspecified right bundle-branch block Category: Medical Plan Cardiac and Pulmonary studies reviewed. Echocardiogram with LVEF of 55%. Severe septal hypertrophy. Advanced diastolic dysfunction with [id number] mitral/tricuspid regurgitation. Myocardial perfusion imaging study from 2022 reported to have likely normal perfusion. A prior study from 2017 also with normal perfusion; fixed inferior defect thought to be from diaphragmatic attenuation. In the carotid Doppler, minimal disease in the right side and moderate on the left side. PFTs from 2018- moderately severe obstructive airway disease. No response to bronchodilator therapy. Sleep study from 2012 shows moderately severe obstructive sleep apnea. Last EKG with sinus rhythm at 73/Min; [place] prolongation to 240 milliseconds; right bundle-branch block. Clinically, he seems euvolemic. Diuretics managed through Nephrology. With regard to carotid stenosis, followed up at vascular. Otherwise, risk factor modification as much able. Follow-up in 6 months. Coding Level of Care Code Est Pt Level 4 (17842) Diagnoses CKD (chronic kidney disease) stage 4, GFR 15-29 ml/min N18.4 Chronic diastolic congestive heart failure I50.32 Essential hypertension I10 Stenosis of left carotid artery I65.22 Laterality: left First degree heart block I44.0 RBBB I45.10
== END 2024-08-04 09:36 | disposition home or self-care (01) ==
PROVIDERS: PCP Internal Medicine; Visit Provider Internal Medicine
DX: I13.0 Hypertensive heart and chronic kidney disease with heart failure and stage 1 through stage 4 chronic kidney disease, or unspecified chronic kidney disease (principal); N18.4 Chronic kidney disease, stage 4 (severe); I50.32 Chronic diastolic (congestive) heart failure; I65.22 Occlusion and stenosis of left carotid artery; I44.0 Atrioventricular block, first degree; I45.10 Unspecified right bundle-branch block
CPT/HCPCS: 99214

== ENCOUNTER → 2024-08-04 09:14 | Outpatient (BNVA) | payer MEDICARE, SELFPAY | PROVIDERS: PCP Internal Medicine; Visit Provider Internal Medicine | DX: I11.0 Hypertensive heart disease with heart failure (principal); I50.32 Chronic diastolic (congestive) heart failure; N18.4 Chronic kidney disease, stage 4 (severe); I65.22 Occlusion and stenosis of left carotid artery; I44.0 Atrioventricular block, first degree; I45.10 Unspecified right bundle-branch block | CPT/HCPCS: 99212 ==

== ENCOUNTER → 2024-08-17 23:59 | Outpatient (BNV) | payer MEDICARE, SELFPAY ==
--- NOTE | 2024-08-27 11:52 | A.OFFVIS_ITS ---
Intake Visit Reasons: Remote Cardiomems- St Jr Allergies aspirin Adverse Reaction (Unknown, Verified 07/27/24 11:45) nose bleeds metformin Adverse Reaction (Unknown, Verified 07/27/24 11:45) hypoglycemia warfarin [From Coumadin] Adverse Reaction (Unknown, Verified 07/27/24 11:45) Nose Bleed apixaban Adverse Reaction (Verified 07/27/24 11:45) Nose Bleed clopidogrel Adverse Reaction (Verified 07/27/24 11:45) Nose Bleed [facility] Medical History Obesity (BMI 30-39.9) Elevated brain natriuretic peptide (BNP) level Lower extremity edema COPD (chronic obstructive pulmonary disease) LEONEL (obstructive sleep apnea) Dyspnea on minimal exertion COPD (chronic obstructive pulmonary disease) Smoker Left ventricular hypertrophy Smoking CKD (chronic kidney disease) Obesity Dyslipidemia Hypertension Diabetes mellitus Surgical History No pertinent past surgical history Family History Father No problems noted. Mother Diabetes Family/Other No problems noted. Social History Household Members: Significant Other Housing: Apartment Do you presently have visiting nurse or other home services: No Alcohol intake: current Alcohol intake frequency: a few times a month Patient Tobacco Use Status: Former Tobacco user e-Cigarette/Vaping Use: Never Used Second Hand Smoke Exposure: No Advance Directives Date on File: 08/23/22 service: No Current occupational status: disabled Office Procedures Cardiac Device Check Cardiac Device Check Details: Monitoring period dates: 07/16/24 - 08/17/24 Optimal PA pressure range: PAD goal 16mmhg Procedure code: 14700 BACKGROUND: Lewis is implanted with the CardioMEMS PA Sensor.? I use this technology to monitor PA pressures on a weekly basis to ensure patients are within their optimal range to prevent decompensation.? SUMMARY:? I utilized the remote monitoring platform ([email or web address]) to set optimal targets for pulmonary artery pressure thresholds as part of acute and chronic management of patient?s heart failure. During the period indicated above, I monitored the patient?s pulmonary artery pressures weekly via trend analysis and notification reports which provide alerts when patient?s PA pressures were outside of range to prompt immediate action in medication changes and communications.? The weekly reports are archived in the [email or web address] system which serve as a parallel record to document weekly PA pressures, medication changes, and clinical notes. I have reviewed readings on 07/17, 07/23, 07/30, 08/06, 08/13, 08/17. . His PAD reading has ranged between 19- 33 mmhg. His diuretics are managed by Nephrology due to advanced CKD. He has not had any changes in the last month. He was seen in our office on 08/04/24 and was reported as being euvolemic on exam. PAD was 26mmhg that day. 68234 - Remote monitoring of wireless pulmonary artery pressure sensor Procedure code (CPT) selection complete Assessment & Plan Assessment & Plan (1) Presence of CardioMEMS HF system: Code(s): Z95.818 - Presence of other cardiac implants and grafts Category: Medical Plan: monthly report Coding Level of Care Code Procedure Only Diagnoses Presence of CardioMEMS HF system Z95.818 CPT Codes Cardiac Device Check - Cardiac Device 17: 79613 - Remote monitoring of wireless pulmonary artery pressure sensor ([id number])
== END ==
PROVIDERS: PCP Internal Medicine; Visit Provider Nurse Practitioner Family
DX: Z45.09 Encounter for adjustment and management of other cardiac device (principal)
CPT/HCPCS: 93264

== ENCOUNTER 2024-08-25 09:40 | Outpatient (REF) | payer MEDICARE, SELFPAY ==
[2024-08-25 14:14] LABS: Hematocrit 26.6 % (42.0-52.0); Hemoglobin 8.5 g/dl (14.0-18.0); Mean Corpuscular Hemoglobin 26.7 pg (27.0-33.0); Mean Corpuscular Volume 83.6 fL (80.0-98.0); Mean Platelet Volume 11.4 fL (9.4-12.4); Platelet Count 188 X10*3/uL (160-400); Red Blood Count 3.18 X10*6/uL (4.60-5.80); Red Cell Distribution Width 14.8 % (11.0-16.0); White Blood Count 6.5 X10*3/uL (4.8-10.8)
[2024-08-25 14:30] LABS: Anion Gap 17 (12-20); Blood Urea Nitrogen 66 mg/dL (9-16); Calcium 8.2 mg/dL (8.4-10.2); Carbon Dioxide 23 mmol/L (22-29); Chloride 106 mmol/L (96-108); Estimated Glomerular Filt Rate 11; Glucose Random 83 mg/dL (60-115); Phosphorus 5.2 mg/dL (2.7-4.5); Potassium 4.7 mmol/L (3.3-5.1); Sodium 141 mmol/L (135-145)
[2024-08-25 14:52] LABS: Parathyroid Hormone Intact 88.4 pg/mL (8.7-77.1)
== END 2024-08-25 09:41 | disposition home or self-care (01) ==
LOC: HO.CHCLDS 09:40
PROVIDERS: Referring Provider Internal Medicine Nephrology; Visit Provider Internal Medicine Hypertension Specialist
DX: Z01.818 Encounter for other preprocedural examination (principal); I12.9 Hypertensive chronic kidney disease with stage 1 through stage 4 chronic kidney disease, or unspecified chronic kidney disease; N18.4 Chronic kidney disease, stage 4 (severe)
CPT/HCPCS: 36415; 80048; 83970; 84100; 85027; 86900; 86901

== ENCOUNTER 2024-08-30 09:41 | Outpatient (AMB) | payer MEDICARE, SELFPAY ==
[2024-08-30 10:10] VITALS: BP 128/78; PULSE 78; O2SAT 96; BMI 36.6
--- NOTE | 2024-08-30 10:10 | HO.NEPHOV_ITS ---
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 Accompanied by: Self / Same As Patient Allergies aspirin Adverse Reaction (Unknown, Verified 08/30/24 10:11) nose bleeds metformin Adverse Reaction (Unknown, Verified 08/30/24 10:11) hypoglycemia warfarin [From Coumadin] Adverse Reaction (Unknown, Verified 08/30/24 10:11) Nose Bleed apixaban Adverse Reaction (Verified 08/30/24 10:11) Nose Bleed clopidogrel Adverse Reaction (Verified 08/30/24 10:11) Nose Bleed HPI Comments Details: 67-year-old male with a history of type 2 diabetes, HTN, CKD, carotid stenosis, COPD, LEONEL not on CPAP, diastolic CHF with preserved ejection fraction, He has advanced CKD Baseline creatinine is between 3.5 and 4.0 Currently on high dose of Bumex -Takes 1mg BID No edema No dyspnea 06/15/24 c/o SOB;Gained some weight/edema ;Went to [facility] 06/25/24 After adding metolazone 2 doses and increasing Bumex to 1 mg b.i.d. he has lost about 7 lb. His breathing has improved. He feels better 07/27/24;doing much better;seen by cardiology 08/30/24 Dyspnea on exertion Weight is down by few lbs [facility] Medical History Obesity (BMI 30-39.9) Elevated brain natriuretic peptide (BNP) level Lower extremity edema COPD (chronic obstructive pulmonary disease) LEONEL (obstructive sleep apnea) Dyspnea on minimal exertion COPD (chronic obstructive pulmonary disease) Smoker Left ventricular hypertrophy Smoking CKD (chronic kidney disease) Obesity Dyslipidemia Hypertension Diabetes mellitus Surgical History No pertinent past surgical history Family History Father No problems noted. Mother Diabetes Family/Other No problems noted. Social History Household Members: Significant Other Housing: Apartment Do you presently have visiting nurse or other home services: No Alcohol intake: current Alcohol intake frequency: a few times a month Patient Tobacco Use Status: Former Tobacco user e-Cigarette/Vaping Use: Never Used Second Hand Smoke Exposure: No Advance Directives Date on File: 08/23/22 service: No Current occupational status: disabled Physical Exam Vital Signs: Last Vital Signs Pulse 78 08/30/24 10:10 BP 128/78 08/30/24 10:10 Pulse Ox 96 08/30/24 10:10 Oxygen Delivery Method Room Air 08/30/24 10:10 BMI result Body Mass Index 36.6 Comfortable Neck supple no JVD. Lungs entry equal no rales. Heart S1-S2 heard no gallop or rub. Abdomen soft nontender. Neuro alert awake oriented. No asterixis. Extremities no edema. Results Reviewed Nephrology Results: Hgb 8.5 g/dl (14.0-18.0) L 08/25/24 WBC 6.5 X10*3/uL (4.8-10.8) 08/25/24 Plt Count 188 X10*3/uL (160-400) 08/25/24 Sodium 141 mmol/L (135-145) 08/25/24 Potassium 4.7 mmol/L (3.3-5.1) 08/25/24 Chloride 106 mmol/L (96-108) 08/25/24 Carbon Dioxide 23 mmol/L (22-29) 08/25/24 BUN 66 mg/dL (9-16) H 08/25/24 Creatinine 5.36 mg/dL (0.5-1.4) H* 08/25/24 Calcium 8.2 mg/dL (8.4-10.2) L 08/25/24 Phosphorus 5.2 mg/dL (2.7-4.5) H 08/25/24 PTH Intact 88.4 pg/mL (8.7-77.1) H 08/25/24 Assessment & Plan Assessment & Plan (1) CKD (chronic kidney disease) stage 4, GFR 15-29 ml/min: Code(s): N18.4 - Chronic kidney disease, stage 4 (severe) Category: Medical Plan: Advanced CKD in a setting of longstanding diabetes mellitus hypertension obesity. Patient creatinine is around 3.5 to 4 mg/dL. Currently he has no signs or symptoms of uremia . Keep Bumex 1 mg BID Continue Losartan 50 mg QD Encouraged him to keep monitoring his weight and watch for leg edema. Increase Bumex if he gains any weight. Continue with low-salt diet. Continue to avoid nephrotoxic agents. At this point there is no absolute indication for dialysis yet but approaching ESRD Discussed with pt and his (2) Essential hypertension: Code(s): I10 - Essential (primary) hypertension Category: Medical Plan: BP appears well controlled. We discussed weight loss and low-salt diet again. (3) Chronic diastolic congestive heart failure: Code(s): I50.32 - Chronic diastolic (congestive) heart failure Category: Medical Plan: Compensated. Follows with cardiology. (4) Obesity (BMI 30-39.9): Code(s): E66.9 - Obesity, unspecified Category: Medical Plan: Discussed weight loss. (5) Hyperparathyroidism: Code(s): E21.3 - Hyperparathyroidism, unspecified Category: Medical Plan: Repeat calcium is 8.4 He is currently on cinacalcet and Rocaltrol. Follow PTH (6) Anemia: Code(s): D64.9 - Anemia, unspecified Category: Medical Plan: Due to CKD Will arrange for Retacrit Plan Referred to dialysis education program. He will be a good candidate for CCPD Discussed pre-emptive transplant REfered to [facility] - seen in Nov Orders: Orders IRON PROFILE Today D64.9 - Anemia, unspecified Ferritin Today D64.9 - Anemia, unspecified Coding Level of Care Code Est Pt Level 5 (66946) Diagnoses CKD (chronic kidney disease) stage 4, GFR 15-29 ml/min N18.4 Essential hypertension I10 Chronic diastolic congestive heart failure I50.32 Obesity (BMI 30-39.9) E66.9 Hyperparathyroidism E21.3 Anemia D64.9
== END 2024-08-30 10:20 | disposition home or self-care (01) ==
PROVIDERS: PCP Internal Medicine; Visit Provider Internal Medicine Hypertension Specialist
DX: I13.0 Hypertensive heart and chronic kidney disease with heart failure and stage 1 through stage 4 chronic kidney disease, or unspecified chronic kidney disease (principal); N18.4 Chronic kidney disease, stage 4 (severe); I50.32 Chronic diastolic (congestive) heart failure; D63.1 Anemia in chronic kidney disease; E21.3 Hyperparathyroidism, unspecified; E66.9 Obesity, unspecified
CPT/HCPCS: 99215

== ENCOUNTER → 2024-08-30 09:41 | Outpatient (BNVA) | payer MEDICARE, SELFPAY | PROVIDERS: PCP Internal Medicine; Visit Provider Internal Medicine Hypertension Specialist | DX: I13.0 Hypertensive heart and chronic kidney disease with heart failure and stage 1 through stage 4 chronic kidney disease, or unspecified chronic kidney disease (principal); N18.4 Chronic kidney disease, stage 4 (severe); I50.30 Unspecified diastolic (congestive) heart failure; D63.1 Anemia in chronic kidney disease; G47.33 Obstructive sleep apnea (adult) (pediatric); E66.9 Obesity, unspecified; E21.3 Hyperparathyroidism, unspecified | CPT/HCPCS: 99212 ==

== ENCOUNTER 2024-09-06 09:33 | Outpatient (REF) | payer MEDICARE, SELFPAY ==
[2024-09-06 15:35] LABS: Iron 49 mcg/dL (45-160); Percent Iron Saturation 21 % (15-50); Total Iron Binding Capacity 238 mcg/dL (228-428); Unsaturated Iron Binding 189 ug/dL
[2024-09-06 15:43] LABS: Ferritin 58 ng/mL (20-250)
== END 2024-09-06 09:34 | disposition home or self-care (01) ==
LOC: HO.CHCLDS 09:33
PROVIDERS: Visit Provider Internal Medicine Hypertension Specialist
DX: D64.9 Anemia, unspecified (principal)
CPT/HCPCS: 36415; 82728; 83540

== ENCOUNTER 2024-09-13 10:26 | Outpatient (AMB) | payer MEDICARE, SELFPAY ==
--- NOTE | 2024-09-13 10:28 | HO.NEPHOV ---
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 Accompanied by: Self / Same As Patient Allergies aspirin Adverse Reaction (Unknown, Verified 09/13/24 10:30) nose bleeds metformin Adverse Reaction (Unknown, Verified 09/13/24 10:30) hypoglycemia warfarin [From Coumadin] Adverse Reaction (Unknown, Verified 09/13/24 10:30) Nose Bleed apixaban Adverse Reaction (Verified 09/13/24 10:30) Nose Bleed clopidogrel Adverse Reaction (Verified 09/13/24 10:30) Nose Bleed Medication List - Last Reconciled 09/13/24 by Ross Baldwin MD acetaminophen (Tylenol) 650 mg PO Q6H PRN albuterol sulfate 90 mcg/actuation (Ventolin HFA) inhalation albuterol sulfate mg inhalation blood-glucose meter (FreeStyle Lite Meter kit) As directed bumetanide 1 mg PO BID calcitriol 0.25 mcg PO DAILY cholecalciferol (vitamin D3) 25 mcg PO Q48H cinacalcet 30 mg PO DAILY clonidine HCl 0.2 mg PO TID 90 days gabapentin 300 mg PO TID glimepiride 1 mg PO DAILY hydralazine 100 mg PO TID labetalol 400 mg PO BID lancets (FreeStyle Lancets) As directed lidocaine 5% 1 patch topical DAILY PRN losartan 50 mg PO DAILY oxycodone-acetaminophen 5-325 mg 1 tab PO Q8H PRN simvastatin 20 mg PO BEDTIME sitagliptin phosphate (Januvia) 25 mg PO DAILY umeclidinium 62.5 mcg/actuation (Incruse Ellipta) 1 inh inhalation DAILY zolpidem 10 mg PO BEDTIME HPI Comments Details: 67-year-old male with a history of type 2 diabetes, HTN, CKD, carotid stenosis, COPD, LEONEL not on CPAP, diastolic CHF with preserved ejection fraction, He has advanced CKD Baseline creatinine is between 3.5 and 4.0 Currently on high dose of Bumex -Takes 1mg BID No edema No dyspnea 06/15/24 c/o SOB;Gained some weight/edema ;Went to [facility] 06/25/24 After adding metolazone 2 doses and increasing Bumex to 1 mg b.i.d. he has lost about 7 lb. His breathing has improved. He feels better 07/27/24;doing much better;seen by cardiology 08/30/24 Dyspnea on exertion Weight is down by few lbs 09/13/24 c/o difficulty sleeping He has LEONEL but does not use CPAP PFSH Medical History Obesity (BMI 30-39.9) Elevated brain natriuretic peptide (BNP) level Lower extremity edema COPD (chronic obstructive pulmonary disease) LEONEL (obstructive sleep apnea) Dyspnea on minimal exertion COPD (chronic obstructive pulmonary disease) Smoker Left ventricular hypertrophy Smoking CKD (chronic kidney disease) Obesity Dyslipidemia Hypertension Diabetes mellitus Surgical History No pertinent past surgical history Family History Father No problems noted. Mother Diabetes Family/Other No problems noted. Social History Household Members: Significant Other Housing: Apartment Do you presently have visiting nurse or other home services: No Alcohol intake: current Alcohol intake frequency: a few times a month Patient Tobacco Use Status: Former Tobacco user e-Cigarette/Vaping Use: Never Used Second Hand Smoke Exposure: No Advance Directives Date on File: 08/23/22 service: No Current occupational status: disabled Physical Exam Vital Signs: Last Vital Signs Pulse 54 09/13/24 10:30 BP 120/76 09/13/24 10:30 Pulse Ox 98 09/13/24 10:30 Oxygen Delivery Method Room Air 09/13/24 10:30 BMI result Body Mass Index 37.0 Comfortable Neck supple no JVD. Lungs entry equal no rales. Heart S1-S2 heard no gallop or rub. Abdomen soft nontender. Neuro alert awake oriented. No asterixis. Extremities no edema. Office Meds epoetin chad-epbx 20,000 unit/mL injection solution Performing Provider: Ross Baldwin MD Performing Location[facility] [place] Administered by: Ross Baldwin MD on 09/13/24 10:42 Dose Route Admin Location Dispensed Lot Number Expiration Date NDC Patient Flow Coordinator 20,000 unit subcut right arm 1 mL [id number] 02/12/26 9003-9807-86 [employer] Results Reviewed Nephrology Results: Hgb 8.5 g/dl (14.0-18.0) L 08/25/24 WBC 6.5 X10*3/uL (4.8-10.8) 08/25/24 Plt Count 188 X10*3/uL (160-400) 08/25/24 Sodium 141 mmol/L (135-145) 08/25/24 Potassium 4.7 mmol/L (3.3-5.1) 08/25/24 Chloride 106 mmol/L (96-108) 08/25/24 Carbon Dioxide 23 mmol/L (22-29) 08/25/24 BUN 66 mg/dL (9-16) H 08/25/24 Creatinine 5.36 mg/dL (0.5-1.4) H* 08/25/24 Calcium 8.2 mg/dL (8.4-10.2) L 08/25/24 Phosphorus 5.2 mg/dL (2.7-4.5) H 08/25/24 PTH Intact 88.4 pg/mL (8.7-77.1) H 08/25/24 Assessment & Plan Assessment & Plan (1) CKD (chronic kidney disease) stage 4, GFR 15-29 ml/min: Code(s): N18.4 - Chronic kidney disease, stage 4 (severe) Category: Medical (2) Essential hypertension: Code(s): I10 - Essential (primary) hypertension Category: Medical Plan: BP appears well controlled. We discussed weight loss and low-salt diet again. (3) Chronic diastolic congestive heart failure: Code(s): I50.32 - Chronic diastolic (congestive) heart failure Category: Medical Plan: Compensated. Follows with cardiology. (4) Obesity (BMI 30-39.9): Code(s): E66.9 - Obesity, unspecified Category: Medical Plan: Discussed weight loss. (5) Hyperparathyroidism: Code(s): E21.3 - Hyperparathyroidism, unspecified Category: Medical Plan: Repeat calcium is 8.4 He is currently on cinacalcet and Rocaltrol. Follow PTH (6) Anemia: Code(s): D64.9 - Anemia, unspecified Category: Medical Plan: Due to CKD Administered Retacrit U Sq Plan Referred to dialysis education program. He will be a good candidate for CCPD Discussed pre-emptive transplant REfered to [facility] - seen in Jul Orders: Orders Complete Blood Count no Diff Today D64.9 - Anemia, unspecified, N18.4 - Chronic kidney disease, stage 4 (severe) AMB Epoetin Injection Practice Supplied Today D64.9 - Anemia, unspecified, N18.4 - Chronic kidney disease, stage 4 (severe), N40.1 - Benign prostatic hyperplasia with lower urinary tract symptoms Basic Metabolic Panel 2 Weeks D64.9 - Anemia, unspecified, N18.4 - Chronic kidney disease, stage 4 (severe) Medications: New epoetin chad-epbx 20,000 units subcut ONCE 1 mL 0RF anemia D64.9 - Anemia, unspecified, N18.4 - Chronic kidney disease, stage 4 (severe), N40.1 - Benign prostatic hyperplasia with lower urinary tract symptoms Coding Level of Care Code Est Pt Level 4 (28011) Complex EM visit Add On G2211 Diagnoses CKD (chronic kidney disease) stage 4, GFR 15-29 ml/min N18.4 Essential hypertension I10 Chronic diastolic congestive heart failure I50.32 Obesity (BMI 30-39.9) E66.9 Hyperparathyroidism E21.3 Anemia D64.9
[2024-09-13 10:30] VITALS: BP 120/76; PULSE 54; O2SAT 98; BMI 37.0
== END 2024-09-13 10:45 | disposition home or self-care (01) ==
PROVIDERS: PCP Internal Medicine; Visit Provider Internal Medicine Hypertension Specialist
DX: I13.0 Hypertensive heart and chronic kidney disease with heart failure and stage 1 through stage 4 chronic kidney disease, or unspecified chronic kidney disease (principal); N18.4 Chronic kidney disease, stage 4 (severe); I50.32 Chronic diastolic (congestive) heart failure; D63.1 Anemia in chronic kidney disease; E21.3 Hyperparathyroidism, unspecified; N40.1 Benign prostatic hyperplasia with lower urinary tract symptoms; E66.9 Obesity, unspecified
CPT/HCPCS: 99214; G2211

== ENCOUNTER → 2024-09-13 10:26 | Outpatient (BNVA) | payer MEDICARE, SELFPAY | PROVIDERS: PCP Internal Medicine; Visit Provider Internal Medicine Hypertension Specialist | DX: I13.0 Hypertensive heart and chronic kidney disease with heart failure and stage 1 through stage 4 chronic kidney disease, or unspecified chronic kidney disease (principal); I50.32 Chronic diastolic (congestive) heart failure; N18.4 Chronic kidney disease, stage 4 (severe); D63.1 Anemia in chronic kidney disease; E21.3 Hyperparathyroidism, unspecified; E66.9 Obesity, unspecified; Z68.37 Body mass index [BMI] 37.0-37.9, adult | CPT/HCPCS: 96372; 99212; Q5106 ==

== ENCOUNTER → 2024-09-22 08:01 | Outpatient (REF) | payer MEDICARE, SELFPAY ==
--- NOTE | 2024-09-22 08:08 | CA_ITS ---
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 The calculated ejection fraction is 59% by biplane method. - The left atrium is severely dilated. - There is mild to moderate mitral valve regurgitation. - There is mild to moderate tricuspid valve regurgitation. - Mild pulmonary hypertension is present. Findings Left Ventricle Normal left ventricular cavity size. There is severely increased left ventricular wall thickness. The left ventricular systolic function is normal. The calculated ejection fraction is 59% by biplane method. There is no evidence of regional wall motion abnormalities. Diastolic function is indeterminate on the basis of available data. Right Ventricle Mildly increased right ventricular cavity size. There is normal right ventricular systolic function. Atria The left atrium is severely dilated. The right atrium is moderately dilated. Aortic Valve There is a normal trileaflet aortic valve. There is mild calcification of the aortic valve. There is no aortic valve stenosis. There is no aortic valve regurgitation. Mitral Valve The mitral valve appears normal. There is mild to moderate mitral valve regurgitation. There is no mitral valve stenosis. Pulmonic Valve The pulmonic valve is likely normal. Tricuspid Valve There is mild to moderate tricuspid valve regurgitation. Mild pulmonary hypertension is present. Great Vessels The asc aorta is normal in size. Venous The inferior vena cava is mildly dilated and collapses less than 50% with inspiration. Pericardium/Pleural There is no evidence of pericardial effusion. Prior Study Comparison No significant change compared to prior study dated: 01/14/2024. Measurements 2D Linear Measurements IVSd: 1.76 0.6-0.9/0.6-1.0 cm LVIDd: 4.57 3.9-5.3/4.2-5.9 cm LVIDd Index: 2.11 2.4-3.2/2.2-3.1 cm/m2 LVIDs: 3.13 2.0-3.6 cm LVPWd: 1.43 0.7-1.1 cm LA Diam: 5.30 2.7-3.8/3.0-4.0 cm LAIDs Index: 2.44 1.5-2.3 cm/m2 LV Mass: 386.72 67-162/88-224 g LV Mass Index: 178.21 43-95/49-115 g/m2 LVOT Diam: 2.30 3.0+(-)1.3 cm 2D Systolic Function EF 4C: 67.80 >55% EF 2C: 48.00 >55% EF BiP: 59.30 >55% Mitral Valve MV Pk E: 1.15 MV Decel Time: 195.00 E'Lateral: 7.33 E'Medial: 6.29 E/E' Med: 18.30 E/E' Lat: 15.70 PHT: 57.00 MVA PHT: 3.86 Decel [place]: 5.92 MR Vol - PW Dopp: 27.84 MR VTI: 1.74 MR ERO: 16.00 MR Alias Jose: 0.35 MR RAD: 0.60 Aortic Valve AoV Pk Jose: 1.50 AoV Mn Jose: 0.97 AoV VTI: 0.29 AoV Pk Grad: 9.00 Aov Mn Grad: 5.00 EUGENE Cont.VTI: 2.67 LVOT LVOT Pk Jose: 0.95 LVOT Mn Jose: 0.57 LVOT VTI: 0.19 LVOT Pk Grad: 4.00 LVOT Mn Grad: 2.00 LVOT Diam: 2.30 LVOT Area: 4.15 Diastolic Function MV Pk E: 1.15 E'Medial: 6.29 E/E' Med: 18.30 E' Laterial: 7.33 E/E' Lat: 15.70 Right Ventricle TAPSE (mm): 20.40 TVS' Jose: 10.20 Tricuspid Valve TR Pk Jose: 2.96 TR Pk Grad: 35.00 RA Press: 15.00 RVSP: 50.00 Great Vessels Aorta Sinus of Valsalva: 3.32 2.0-3.[address] [place]: 2.68 1.7-3.4 cm Ao Asc: 3.60 2.1-3.4 cm Updated in Other Vendor System with Status of Final Jose Kim MD electronically signed on 09/25/2024 11:32:23 AM with status of Final
--- NOTE | 2024-09-22 09:34 | ECG_ITS ---
Test Reason : AFIB Blood Pressure : */* mmHG Vent. Rate : 60 BPM Atrial Rate : * BPM P-R Int : * ms QRS Dur : 162 ms QT Int : 530 ms P-R-T Axes : * -70 49 degrees QTcB Int : 530 ms Atrial fibrillation Left axis deviation Right bundle branch block Abnormal ECG When compared with ECG of 14-Sep-2022 02:45, Rhythm change Referred By: Jamel Nielson Electronically Signed By: ARAM STAUFFER
== END ==
LOC: HO.CARD 08:01
PROVIDERS: PCP Internal Medicine; Visit Provider Internal Medicine Nephrology
DX: Z01.818 Encounter for other preprocedural examination (principal); I44.0 Atrioventricular block, first degree
CPT/HCPCS: 93005; 93306

== ENCOUNTER → 2024-09-22 09:34 | Outpatient (BNV) | payer MEDICARE, SELFPAY | PROVIDERS: PCP Internal Medicine; Visit Provider Internal Medicine | DX: I48.91 Unspecified atrial fibrillation (principal) | CPT/HCPCS: 93010 ==

== ENCOUNTER → 2024-09-23 23:59 | Outpatient (BNV) | payer MEDICARE, SELFPAY ==
--- NOTE | 2024-09-28 16:47 | MHC.OFFVIS ---
Intake Visit Reasons: REmote Cardiomems- [facility] Allergies aspirin Adverse Reaction (Unknown, Verified 09/13/24 10:30) nose bleeds metformin Adverse Reaction (Unknown, Verified 09/13/24 10:30) hypoglycemia warfarin [From Coumadin] Adverse Reaction (Unknown, Verified 09/13/24 10:30) Nose Bleed apixaban Adverse Reaction (Verified 09/13/24 10:30) Nose Bleed clopidogrel Adverse Reaction (Verified 09/13/24 10:30) Nose Bleed [facility] Medical History Obesity (BMI 30-39.9) Elevated brain natriuretic peptide (BNP) level Lower extremity edema COPD (chronic obstructive pulmonary disease) LEONEL (obstructive sleep apnea) Dyspnea on minimal exertion COPD (chronic obstructive pulmonary disease) Smoker Left ventricular hypertrophy Smoking CKD (chronic kidney disease) Obesity Dyslipidemia Hypertension Diabetes mellitus Surgical History No pertinent past surgical history Family History Father No problems noted. Mother Diabetes Family/Other No problems noted. Social History Household Members: Significant Other Housing: Apartment Do you presently have visiting nurse or other home services: No Alcohol intake: current Alcohol intake frequency: a few times a month Patient Tobacco Use Status: Former Tobacco user e-Cigarette/Vaping Use: Never Used Second Hand Smoke Exposure: No Advance Directives Date on File: 08/23/22 service: No Current occupational status: disabled Office Procedures Cardiac Device Check Cardiac Device Check Details: Monitoring period dates: 08/18/24 - 09/23/24 Optimal PA pressure range: PAD goal 16mmhg Procedure code: 54918 BACKGROUND: Lewis is implanted with the CardioMEMS PA Sensor.? I use this technology to monitor PA pressures on a weekly basis to ensure patients are within their optimal range to prevent decompensation.? SUMMARY:? I utilized the remote monitoring platform ([employer]) to set optimal targets for pulmonary artery pressure thresholds as part of acute and chronic management of patient?s heart failure. During the period indicated above, I monitored the patient?s pulmonary artery pressures weekly via trend analysis and notification reports which provide alerts when patient?s PA pressures were outside of range to prompt immediate action in medication changes and communications.? The weekly reports are archived in the [employer] system which serve as a parallel record to document weekly PA pressures, medication changes, and clinical notes. I have reviewed readings on 08/19, 08/23, 08/30, 09/06, 09/13, 09/20. His PAD readings have ranged 25- 30mmhg. He denies symptoms. He has advanced kidney disease and follows closely with nephrology who manages his diuretics. No diuretic changes were made by cardiology. 64377 - Remote monitoring of wireless pulmonary artery pressure sensor Procedure code (CPT) selection complete Assessment & Plan Assessment & Plan (1) Presence of CardioMEMS HF system: Code(s): Z95.818 - Presence of other cardiac implants and grafts Category: Medical Plan: monthly report Coding Level of Care Code Procedure Only Diagnoses Presence of CardioMEMS HF system Z95.818 CPT Codes Cardiac Device Check - Cardiac Device 17: 61014 - Remote monitoring of wireless pulmonary artery pressure sensor ([id number])
== END ==
PROVIDERS: PCP Internal Medicine; Visit Provider Nurse Practitioner Family
DX: Z45.09 Encounter for adjustment and management of other cardiac device (principal)
CPT/HCPCS: 93264

== ENCOUNTER → 2024-09-24 06:36 | Outpatient (REF) | payer MEDICARE, SELFPAY | LOC: HO.CARD 06:36 | PROVIDERS: PCP Internal Medicine | DX: I48.91 Unspecified atrial fibrillation (principal) | CPT/HCPCS: 93242 ==

== ENCOUNTER → 2024-09-24 06:39 | Outpatient (BNV) | payer MEDICARE, SELFPAY | PROVIDERS: PCP Internal Medicine; Visit Provider Internal Medicine Cardiovascular Disease | DX: I48.91 Unspecified atrial fibrillation (principal) | CPT/HCPCS: 93244 ==

== ENCOUNTER 2024-10-05 08:25 | Outpatient (AMB) | payer MEDICARE, SELFPAY ==
[2024-10-05 08:47] VITALS: BP 120/74; PULSE 62; BMI 37.7
--- NOTE | 2024-10-05 08:47 | A.OFFVIS_ITS ---
Vital Signs 10/05/24 08:47 Height 5 ft 7 in Weight 240 lb 11.916 oz BMI 37.7 BP 120/74 Blood Pressure Location Lt brachial Position Sitting Pulse 62 Pulse Source Pulse Oximeter Intake Visit Reasons: F/U s/p holter Medical Writer Required: No Allergies aspirin Adverse Reaction (Unknown, Verified 10/05/24 10:04) nose bleeds metformin Adverse Reaction (Unknown, Verified 10/05/24 10:04) hypoglycemia warfarin [From Coumadin] Adverse Reaction (Unknown, Verified 10/05/24 10:04) Nose Bleed apixaban Adverse Reaction (Verified 10/05/24 10:04) Nose Bleed clopidogrel Adverse Reaction (Verified 10/05/24 10:04) Nose Bleed Medication List - Last Reconciled 10/05/24 by ANU Gonzalez acetaminophen (Tylenol) 650 mg PO Q6H PRN albuterol sulfate 90 mcg/actuation (Ventolin HFA) inhalation albuterol sulfate mg inhalation blood-glucose meter (FreeStyle Lite Meter kit) As directed bumetanide 1 mg PO BID calcitriol 0.25 mcg PO DAILY cholecalciferol (vitamin D3) 25 mcg PO Q48H cinacalcet 30 mg PO DAILY clonidine HCl 0.2 mg PO TID 90 days gabapentin 300 mg PO TID glimepiride 1 mg PO DAILY hydralazine 100 mg PO TID labetalol 400 mg PO BID lancets (FreeStyle Lancets) As directed lidocaine 5% 1 patch topical DAILY PRN losartan 50 mg PO DAILY oxycodone-acetaminophen 5-325 mg 1 tab PO Q8H PRN simvastatin 20 mg PO BEDTIME sitagliptin phosphate (Januvia) 25 mg PO DAILY umeclidinium 62.5 mcg/actuation (Incruse Ellipta) 1 inh inhalation DAILY zolpidem 10 mg PO BEDTIME HPI HPI F/U s/p holter: Details: Lewis is a 68-year-old male with past medical? history of obesity, hypertension, diabetes, chronic kidney disease, smoking, first-degree AV block, right bundle branch block, obstructive sleep apnea, diastolic heart failure, s/p CardioMEMS device, newer finding of atrial fibrillation who presents for follow-up. Today he reports he does have some shortness of breath with activity. He feels this is unchanged in the last few months. He has edema in his legs which he also reports as being chronic. He denies PND, orthopnea. No chest discomfort at rest or with activity. No lightheadedness, presyncope, syncope, falls. 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 His is present. He has been taking meds as directed. He says that he can not take blood thinners. In the past he has had significant epistaxis as well as rectal bleeding. He feels very strongly about this and refuses them in spite of stroke risk. He follows closely with Nephrology and is hoping to prevent future hemodialysis. [facility] Medical History Obesity (BMI 30-39.9) Elevated brain natriuretic peptide (BNP) level Lower extremity edema COPD (chronic obstructive pulmonary disease) LEONEL (obstructive sleep apnea) Dyspnea on minimal exertion COPD (chronic obstructive pulmonary disease) Smoker Left ventricular hypertrophy Smoking CKD (chronic kidney disease) Obesity Dyslipidemia Hypertension Diabetes mellitus Surgical History No pertinent past surgical history Family History Father No problems noted. Mother Diabetes Family/Other No problems noted. Social History Household Members: Significant Other Housing: Apartment Do you presently have visiting nurse or other home services: No Alcohol intake: current Alcohol intake frequency: a few times a month Patient Tobacco Use Status: Former Tobacco user e-Cigarette/Vaping Use: Never Used Second Hand Smoke Exposure: No Advance Directives Date on File: 08/23/22 service: No Current occupational status: disabled Review of Systems Const All systems reviewed & are unremarkable except as noted in HPI and below ENT Denies dizziness Card Denies chest pain, Denies chest pain at rest, Denies chest pain with activity, Denies rapid heart rate, Reports pedal edema, Denies edema, Reports leg edema, Denies lightheadedness, Denies palpitations, Denies dyspnea, Reports dyspnea on exertion and Denies orthopnea Resp Denies cough, Denies dyspnea and Reports dyspnea on exertion GI Denies hematochezia and Denies change in stool character Musc Denies abnormal gait, Denies limited range of motion, Denies muscle cramps, Denies muscle weakness, Denies numbness, Denies radiating pain into limb, Denies stiffness and Denies tingling Neuro Denies abnormal gait, Denies dizziness, Denies numbness and Denies tingling Endo Denies palpitations Physical Exam Vital Signs: Last Vital Signs Pulse 62 10/05/24 08:47 BP 120/74 10/05/24 08:47 BMI result Body Mass Index 37.7 Const General: cooperative, healthy appearing, comfortable and no acute distress Orientation/consciousness: patient oriented x3 Neck Neck: Yes normal visual inspection Resp Effort & Inspection: normal respiratory effort Auscultation: clear to auscultation bilaterally, no rales, no rhonchi and no wheezes Cardio Rate: regular rate Rhythm: regular rhythm Heart sounds: S1 normal heart sound present, S2 normal heart sound present, no murmurs and no rubs Peripheral pulses: Peripheral pulses 2+ throughout Neuro General: patient oriented x3 Extrem Other: pitting edema in lower legs to level of knees Psych Appearance: grossly normal Mental Status: mental status grossly normal Speech and movement: Normal speech and movement present Office Procedures EKG Details: Today, read by me, atrial fibrillation, left axis deviation, right bundle branch block, rate 59, JT index 114 [id number], Complete Assessment & Plan Assessment & Plan (1) Acute exacerbation of CHF (congestive heart failure): Code(s): I50.9 - Heart failure, unspecified Category: Medical Plan: History of heart failure with preserved EF. Last hospital admission with acute heart failure was September 2022. Last nuclear stress test on 09/26/2022 showing no infarct or ischemia. Since then he had a CardioMEMS device placed. Compliant with his readings and PA readings are followed remotely. He has known advanced chronic kidney disease and follows closely with Nephrology. His most recent CardioMEMS readings have been elevated. His diuretics are adjusted as needed by Nephrology. His labs from 09/28/2024 show creatinine 5.02. He says he has begun the testing for the renal transplant list. He has not started dialysis as of yet and is hoping to avoid it as long as possible. He does have edema in his lower extremities and shortness of breath with activity. He says these symptoms have been unchanged in the last few months. He continues on Bumex 1 mg b.i.d. . Spent time reviewing signs and symptoms of heart failure with him. If having concerning symptoms instructed to notify either Nephrology or this office. No med changes made at this time. (2) Afib: Code(s): I48.91 - Unspecified atrial fibrillation Category: Medical Plan: Patient came for recent echocardiogram as part of workup for transplant list. During the time of the echocardiogram he was noted to have atrial fibrillation. This is new for him. He did not notice heart palpitations. The echo did show EF 59%, left atrium severely dilated, [id number] MR, amfk-xz-baigromy TR, mild pulmonary hypertension. His heart rate was controlled and he was continued on his usual labetalol. He did undergo a Holter monitor for 3 days showing a fib, average rate 62, frequent PVCs 4.6% of the time with up to 6 beat run. Chads Vasc score of 3. Anticoagulation is indicated however does have significant anemia, likely anemia of chronic disease. Labs done 09/28/2024 shows hemoglobin 8.3. He currently has no signs of active bleeding. He does have a history of hemorrhaging , significant epistaxis, rectal bleeding when taking aspirin in past. He strongly declines anticoagulation at this time due to fears of recurrent bleeding. Reviewed with Dr. Kim. Will refer him for Watchman device. Referral sent to Dr. aCrrizales. Informed patient that Dr. Carrizales the will evaluate to see if he is appropriate candidate for this procedure. (3) Essential hypertension: Code(s): I10 - Essential (primary) hypertension Category: Medical Plan: Normal today, 132/76. He continues on hydralazine, labetalol, Bumex, clonidine. Blood pressure is being followed by Nephrology as well. (4) Carotid stenosis: Code(s): I65.29 - Occlusion and stenosis of unspecified carotid artery Category: Medical Qualifiers: Laterality: left Qualified Code(s): I65.22 - Occlusion and stenosis of left carotid artery Plan: Known history of moderate carotid stenosis. Follows with Dr. Mcfadden for vascular. Continue statin. (5) First degree heart block: Code(s): I44.0 - Atrioventricular block, first degree Category: Medical Plan: Present on EKGs, no change (6) RBBB: Code(s): I45.10 - Unspecified right bundle-branch block Category: Medical Plan: Present on EKGs, no change (7) Presence of CardioMEMS HF system: Code(s): Z95.818 - Presence of other cardiac implants and grafts Category: Medical Plan: Monthly reports submitted. Discussed readings with patient today. (8) COPD (chronic obstructive pulmonary disease): Code(s): J44.9 - Chronic obstructive pulmonary disease, unspecified Category: Medical Plan: Followed by pulmonology Plan Time spent on chart review, documentation, interview and assessment Orders: Referrals Cardiology Referral I48.91 - Unspecified atrial fibrillation Coding Level of Care Code Est Pt Level 4 (78627) Complex EM visit Add On G2211 Diagnoses Acute exacerbation of CHF (congestive heart failure) I50.9 Afib I48.91 Essential hypertension I10 Stenosis of left carotid artery I65.22 Laterality: left First degree heart block I44.0 RBBB I45.10 Presence of CardioMEMS HF system Z95.818 COPD (chronic obstructive pulmonary disease) J44.9 CPT Codes EKG - CPT: [id number], Complete ([id number]) Time Spent (min) 36
== END 2024-10-05 09:54 | disposition home or self-care (01) ==
PROVIDERS: PCP Internal Medicine; Visit Provider Nurse Practitioner Family
DX: I50.9 Heart failure, unspecified (principal); I48.91 Unspecified atrial fibrillation; I10 Essential (primary) hypertension; I65.22 Occlusion and stenosis of left carotid artery; I44.0 Atrioventricular block, first degree; I45.10 Unspecified right bundle-branch block; Z95.818 Presence of other cardiac implants and grafts; J44.9 Chronic obstructive pulmonary disease, unspecified
CPT/HCPCS: 93010; 99214; G2211

== ENCOUNTER → 2024-10-05 08:25 | Outpatient (BNVA) | payer MEDICARE, SELFPAY | PROVIDERS: PCP Internal Medicine; Visit Provider Nurse Practitioner Family | DX: E11.22 Type 2 diabetes mellitus with diabetic chronic kidney disease (principal); I13.0 Hypertensive heart and chronic kidney disease with heart failure and stage 1 through stage 4 chronic kidney disease, or unspecified chronic kidney disease; I50.32 Chronic diastolic (congestive) heart failure; N18.4 Chronic kidney disease, stage 4 (severe); E66.9 Obesity, unspecified; E21.3 Hyperparathyroidism, unspecified; D63.1 Anemia in chronic kidney disease; N40.1 Benign prostatic hyperplasia with lower urinary tract symptoms; I44.0 Atrioventricular block, first degree; I45.10 Unspecified right bundle-branch block; I48.91 Unspecified atrial fibrillation; I65.22 Occlusion and stenosis of left carotid artery; J44.9 Chronic obstructive pulmonary disease, unspecified; Z87.891 Personal history of nicotine dependence; Z68.37 Body mass index [BMI] 37.0-37.9, adult; Z95.818 Presence of other cardiac implants and grafts | CPT/HCPCS: 93005; 96372; 99212; Q5106 ==

== ENCOUNTER 2024-10-05 09:55 | Outpatient (AMB) | payer MEDICARE, SELFPAY ==
--- NOTE | 2024-10-05 09:57 | HO.NEPHOV_ITS ---
Vital Signs 10/05/24 09:59 Height 5 ft 7 in Weight 240 lb BMI 37.6 BP 132/76 Blood Pressure Location Rt brachial Position Sitting Pulse 85 Pulse Source Pulse Oximeter Pulse Oximetry (%) 97 Oxygen Delivery Method Room Air Intake Visit Reasons: Retacrit [employer] Administrator Required: No Accompanied by: Spouse Allergies aspirin Adverse Reaction (Unknown, Verified 10/05/24 10:04) nose bleeds metformin Adverse Reaction (Unknown, Verified 10/05/24 10:04) hypoglycemia warfarin [From Coumadin] Adverse Reaction (Unknown, Verified 10/05/24 10:04) Nose Bleed apixaban Adverse Reaction (Verified 10/05/24 10:04) Nose Bleed clopidogrel Adverse Reaction (Verified 10/05/24 10:04) Nose Bleed Medication List - Last Reconciled 10/05/24 by Ross Baldwin MD acetaminophen (Tylenol) 650 mg PO Q6H PRN albuterol sulfate 90 mcg/actuation (Ventolin HFA) inhalation albuterol sulfate mg inhalation blood-glucose meter (FreeStyle Lite Meter kit) As directed bumetanide 1 mg PO BID calcitriol 0.25 mcg PO DAILY cholecalciferol (vitamin D3) 25 mcg PO Q48H cinacalcet 30 mg PO DAILY clonidine HCl 0.2 mg PO TID 90 days gabapentin 300 mg PO TID glimepiride 1 mg PO DAILY hydralazine 100 mg PO TID labetalol 400 mg PO BID lancets (FreeStyle Lancets) As directed lidocaine 5% 1 patch topical DAILY PRN losartan 50 mg PO DAILY oxycodone-acetaminophen 5-325 mg 1 tab PO Q8H PRN simvastatin 20 mg PO BEDTIME sitagliptin phosphate (Januvia) 25 mg PO DAILY umeclidinium 62.5 mcg/actuation (Incruse Ellipta) 1 inh inhalation DAILY zolpidem 10 mg PO BEDTIME HPI Comments Details: 67-year-old male with a history of type 2 diabetes, HTN, CKD, carotid stenosis, COPD, LEONEL not on CPAP, diastolic CHF with preserved ejection fraction, He has advanced CKD Baseline creatinine is between 3.5 and 4.0 Currently on high dose of Bumex -Takes 1mg BID No edema No dyspnea 06/15/24 c/o SOB;Gained some weight/edema ;Went to [facility] 06/25/24 After adding metolazone 2 doses and increasing Bumex to 1 mg b.i.d. he has lost about 7 lb. His breathing has improved. He feels better 07/27/24;doing much better;seen by cardiology 08/30/24 Dyspnea on exertion Weight is down by few lbs 09/13/24 c/o difficulty sleeping He has LEONEL but does not use CPAP 10/05/24 New onset A.fib - work up in progress [facility] Medical History Obesity (BMI 30-39.9) Elevated brain natriuretic peptide (BNP) level Lower extremity edema COPD (chronic obstructive pulmonary disease) LEONEL (obstructive sleep apnea) Dyspnea on minimal exertion COPD (chronic obstructive pulmonary disease) Smoker Left ventricular hypertrophy Smoking CKD (chronic kidney disease) Obesity Dyslipidemia Hypertension Diabetes mellitus Surgical History No pertinent past surgical history Family History Father No problems noted. Mother Diabetes Family/Other No problems noted. Social History Household Members: Significant Other Housing: Apartment Do you presently have visiting nurse or other home services: No Alcohol intake: current Alcohol intake frequency: a few times a month Patient Tobacco Use Status: Former Tobacco user e-Cigarette/Vaping Use: Never Used Second Hand Smoke Exposure: No Advance Directives Date on File: 08/23/22 service: No Current occupational status: disabled Physical Exam Vital Signs: Last Vital Signs Pulse 85 10/05/24 09:59 BP 132/76 10/05/24 09:59 Pulse Ox 97 10/05/24 09:59 Oxygen Delivery Method Room Air 10/05/24 09:59 BMI result Body Mass Index 37.6 Comfortable Neck supple no JVD. Lungs entry equal no rales. Heart S1-S2 heard no gallop or rub. Abdomen soft nontender. Neuro alert awake oriented. No asterixis. Extremities 2+edema. Office Meds epoetin chad-epbx 20,000 unit/mL injection solution Performing Provider: Ross Baldwin MD Performing Location[facility] Administered by: Ross Baldwin MD on 10/05/24 10:14 Dose Route Admin Location Dispensed Lot Number Expiration Date [place] [employer] 20,000 unit subcut right arm 1 mL [id number] 02/12/26 7562-8533-54 [employer] Results Reviewed Nephrology Results: Hgb 8.3 g/dl (14.0-18.0) L 09/28/24 WBC 5.6 X10*3/uL (4.8-10.8) 09/28/24 Plt Count 178 X10*3/uL (160-400) 09/28/24 Sodium 141 mmol/L (135-145) 09/28/24 Potassium 4.0 mmol/L (3.3-5.1) 09/28/24 Chloride 108 mmol/L (96-108) 09/28/24 Carbon Dioxide 23 mmol/L (22-29) 09/28/24 BUN 50 mg/dL (9-16) H 09/28/24 Creatinine 5.02 mg/dL (0.5-1.4) H* 09/28/24 Calcium 8.0 mg/dL (8.4-10.2) L 09/28/24 Phosphorus 5.2 mg/dL (2.7-4.5) H 08/25/24 PTH Intact 88.4 pg/mL (8.7-77.1) H 08/25/24 Assessment & Plan Assessment & Plan (1) CKD (chronic kidney disease) stage 4, GFR 15-29 ml/min: Code(s): N18.4 - Chronic kidney disease, stage 4 (severe) Category: Medical (2) Essential hypertension: Code(s): I10 - Essential (primary) hypertension Category: Medical Plan: BP appears well controlled. We discussed weight loss and low-salt diet again. (3) Chronic diastolic congestive heart failure: Code(s): I50.32 - Chronic diastolic (congestive) heart failure Category: Medical Plan: Compensated. Follows with cardiology. (4) Obesity (BMI 30-39.9): Code(s): E66.9 - Obesity, unspecified Category: Medical Plan: Discussed weight loss. (5) Hyperparathyroidism: Code(s): E21.3 - Hyperparathyroidism, unspecified Category: Medical Plan: Repeat calcium is 8.4 He is currently on cinacalcet and Rocaltrol. Follow PTH (6) Anemia: Code(s): D64.9 - Anemia, unspecified Category: Medical Plan: Due to CKD Administered Retacrit U Sq Plan Referred to dialysis education program. He will be a good candidate for CCPD Discussed pre-emptive transplant REfered to [facility] - seen in Nov Orders: Orders Basic Metabolic Panel 4 Weeks D64.9 - Anemia, unspecified, N18.4 - Chronic kidney disease, stage 4 (severe) Complete Blood Count no Diff 4 Weeks D64.9 - Anemia, unspecified, N18.4 - Chronic kidney disease, stage 4 (severe) AMB Epoetin Injection Practice Supplied Today N40.1 - Benign prostatic hyperplasia with lower urinary tract symptoms Medications: New epoetin chad-epbx 20,000 units subcut ONCE 1 mL 0RF anemia N40.1 - Benign prostatic hyperplasia with lower urinary tract symptoms Coding Level of Care Code Est Pt Level 4 (36204) Diagnoses CKD (chronic kidney disease) stage 4, GFR 15-29 ml/min N18.4 Essential hypertension I10 Chronic diastolic congestive heart failure I50.32 Obesity (BMI 30-39.9) E66.9 Hyperparathyroidism E21.3 Anemia D64.9
[2024-10-05 09:59] VITALS: BP 132/76; PULSE 85; O2SAT 97; BMI 37.6
--- OUTSIDE RECORDS SUMMARY | 2024-10-05 11:09 | XMS_ITS | Clinical Summary ---
Author Organization [employer] Address [address] [place] [address] 7[address] [place] [address] Care Team Providers Care Recyclable Materials Collector Name Role Phone Ayaka Salgado MD Primary Care Provider [phone] Allergies Active Allergy Reactions Criticality Noted Date Comments Glyburide 02/18/2011 Other reaction(s): unspecified Metformin 06/06/2011 Other reaction(s): unspecified, unspecified Medications Elastic Bandages & Supports (Medical Compression Socks) misc To use daily before getting out of bed 012 Active cinacalcet (Sensipar) 30 MG tablet take 1 tablet (30MG) by oral route every day with food 014 Active aspirin 81 MG EC tablet Take 1 tablet by mouth in the morning. 016 Active cholecalciferol (Vitamin D-3) 25 MCG (1000 UT) tablet Take 1 tablet by mouth. Every day 013 Active dextran 70-hypromellose (artificial tears) 0.1-0.3 % ophthalmic solution 1 drop 4 times a day as needed 015 Active Diclofenac Sodium 1 % gel Apply topically. 2 times every day to the affected area(s) 020 Active docusate sodium (Colace) 100 MG capsule take 1 capsule to 2 capsules by oral route every day at bedtime as needed 021 Active naloxone (Narcan) 4 mg/0.1 mL nasal spray Administer 0.1 mL into affected nostril(s). 021 Active polyethylene glycol, PEG, 3350 (MiraLax) 17 GM/SCOOP powder take (17G) by oral route every day mixed with 8 oz. water, juice, soda, coffee or tea Active simethicone (Mylicon,Gas-X) 125 MG capsule take 1 tablet by oral route 4 times every day Active tiotropium (Spiriva Respimat) 1.25 MCG/ACT inhaler Inhale 2 puffs. Every day Active Blood Pressure kit Use daily Active nicotine (Nicoderm CQ) 7 MG/24HR patchIndications: Obstructive sleep apnea syndrome Place 1 patch on the skin 1 (one) time each day at the same time. 30 patch Active Misc. Devices (Pulse Oximeter) misc USE DIRECTED Active amLODIPine (Norvasc) 5 MG tabletIndications :Congestive heart failure, unspecified HF chronicity, unspecified heart failure type (CMS/HCC) Take 1 tablet (5 mg) by mouth in the morning. Take 1 tablet by mouth daily 30 tablet 11 Active lidocaine (Lidoderm) 5 % patch APPLY 1 PATCH TOPICALLY TO THE SKIN EVERY DAY. 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 5 tabs next friday 10 tablet 023 Active triamcinolone (Kenalog) 0.1 % creamIndications: Pruritus Apply topically if needed in the morning and at bedtime (pain and swelling). 80 g 2 Active doxycycline (Vibra-Tabs) 100 MG tabletIndications :Folliculitis Take 1 tablet (100 mg) by mouth 2 times daily. Take with a full glass of water and do not lie down for at least 30 minutes after. 20 tablet 023 Active hydrOXYzine pamoate (Vistaril) 50 MG capsuleIndication s:Pruritus TAKE 1 CAPSULE(50 MG) BY MOUTH AT BEDTIME NEEDED FOR ITCHING 30 capsule Active zolpidem (Ambien) 10 MG tablet Take 1 tablet (10 mg) by mouth if needed at bedtime for sleep. 30 tablet Active guaiFENesin (Mucinex) 600 MG 12 hr tabletIndications :Simple chronic bronchitis (CMS/HCC) Take 2 tablets (1,200 mg) by mouth 2 times daily. 20 tablet Active bumetanide (Bumex) 1 MG tabletIndications :Congestive heart failure, unspecified HF chronicity, unspecified heart failure type (CMS/HCC) TAKE 1 TABLET(1 MG) BY MOUTH TWICE DAILY 180 tablet 3 Active albuterol (2.5 MG/3ML) 0.083% nebulizer solutionIndicatio ns:Simple chronic bronchitis (CMS/HCC) Take 3 mL (2.5 mg) by nebulization every 4 (four) hours if needed for wheezing. 75 mL 024 2024 Active budesonide-formot radha (Symbicort) 160-4.5 MCG/ACT inhaler Inhale 2 puffs in the morning and at bedtime. 1 each Active tiotropium (Spiriva HandiHaler) 18 MCG inhalation capsuleIndication s:Simple chronic bronchitis (CMS/HCC) Place 1 capsule (18 mcg) into inhaler and inhale in the morning. 30 capsule 024 2024 Active albuterol (2.5 MG/3ML) 0.083% nebulizer solutionIndicatio ns:Simple chronic bronchitis (CMS/HCC) Take 3 mL (2.5 mg) by nebulization every 4 (four) hours if needed for wheezing. 75 mL 024 2024 Active albuterol 108 (90 Base) MCG/ACT inhaler Inhale 2 puffs every 6 (six) hours if needed for wheezing. 18 g 024 2024 Active Umeclidinium [place] (Incruse Ellipta) 62.5 MCG/ACT aerosol powderIndications :Chronic obstructive pulmonary disease, unspecified COPD type (CMS/HCC) Inhale 62.5 mcg Once per day AND 62.5 mcg Once per day. 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 80 g 3 Active gabapentin (Neurontin) 300 MG capsuleIndication s:Chronic pruritus Take 1 capsule (300 mg) by mouth 3 times daily. 90 capsule 11 024 2024 Active hydrALAZINE (Apresoline) 100 MG tablet Take 1 tablet (100 mg) by mouth 3 times daily. 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 42 tablet 024 2023 Discontinued(R eorder (will not trigger notification to Pharmacy)) zolpidem (Ambien) 10 MG tabletIndications :Primary osteoarthritis involving multiple joints TAKE 1 TABLET BY MOUTH AT BEDTIME NEEDED FOR SLEEP Do not start before August 25, 2024. 30 tablet 024 2024 Discontinued(R eorder (will not trigger notification to Pharmacy)) oxyCODONE-acetami nophen (Percocet) 5-325 MG tabletIndications :Back pain, unspecified back location, unspecified back pain laterality, unspecified chronicity Take 1 tablet by mouth every 6 (six) hours if needed for severe pain for up to 14 days. 42 tablet 024 2024 Active Problems Problem Noted Date Diagnosed Date Pruritus 07/12/2024 Congestive heart failure 09/24/2022 Acute renal failure syndrome 07/18/2021 Coronary arteriosclerosis 07/18/2021 Diabetic nephropathy associa sergio with type 2 diabetes mellitus 07/18/2021 Hypertensive renal disease 07/18/2021 Chronic obstructive lung disease 05/22/2018 Edema of foot 02/24/2018 CKD (chronic kidney disease), stage III 02/15/20 17 Type 2 diabetes mellitus with nephropathy 2014 Acute bronchitis 11/14/2011 Arthropathy 11/14/2011 Essential hypertension 11/14/2011 Pure hypercholesterolemia 06/06/2011 Hyperparathyroidism 04/29/2011 Resolved Problems Problem Noted Date Diagnosed Date Resolved Date COVID-19 09/13/2022 09/24/2022 Acute upper respiratory infection 11/05/2011 09/24/2022 Encounters Date Type Department Care Team Description 09/29/2024 Refill [facility] [address] [place] [address] Ayaka Salgado MD Arthropathy (Primary Dx) 09/23/2024 Refill [facility] [address] [place] [address] Ayaka Salgado MD Primary osteoarthritis involving multiple joints 09/22/2024 Refill [facility] [address] [place] [address] Ayaka Salgado MD 09/08/2024 Refill [facility] [address] [place] [address] Ayaka Salgado MD 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[facility]) 09/06/2024 Refill [facility] [address] [place] [address] Ayaka Salgado MD Back pain, unspecified back location, unspecified back pain laterality, unspecified chronicity 09/06/2024 Telephone [facility] [address] [place] [address] Ayaka Salgado MD Med Refill 08/31/2024 9:00 AM EST Clinical Support [facility] [address] [place] [address] Alana Hook RN Back pain, unspecified back location, unspecified back pain laterality, unspecified chronicity 08/31/2024 Telephone [facility] [address] [place] [address] Alana Hook RN 08/31/2024 Travel 08/20/2024 Orders Only [facility] [address] [place] [address] Ayaka Salgado MD 08/20/2024 Refill [facility] [address] [place] [address] Ayaka Salgado MD 08/18/[address] [address] Ayaka Salgado MD 08/18/2024 Refill [facility] [address] [place] [address] Ayaka Salgado MD Primary osteoarthritis involving multiple joints 08/17/2024 9:45 AM EST Office Visit [facility] [address] [place] [address] Ayaka Salgado MD Chronic pruritus (Primary Dx); Pruritus scroti 08/17/2024 Travel 08/16/2024 Telephone [facility] [address] [place] [address] Ayaka Salgado MD Med Refill 08/09/[address] [address] Ayaka Salgado MD Med Refill 08/09/2024 Refill [facility] [address] [place] [address] Ayaka Salgado MD Back pain, unspecified back location, unspecified back pain laterality, unspecified chronicity 08/05/2024 Refill [facility] [address] [place] [address] Ayaka Salgado MD Back pain, unspecified back location, unspecified back pain laterality, unspecified chronicity (Primary Dx) 07/28/2024 Refill [facility] [address] [place] [address] Ayaka Salgado MD Primary osteoarthritis involving multiple joints 07/28/2024 Refill [facility] [address] [place] [address] Ayaka Salgado MD 07/14/2024 Refill [facility] [address] [place] [address] Alana Hook RN Arthropathy (Primary Dx) 07/14/2024 Refill [facility] [address] [place] [address] Ayaka Salgado MD 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) 07/14/2024 Telephone [facility] [address] [place] [phone] Ayaka Salgado MD Med Refill 07/12/2024 11:30 AM EDT Office Visit [facility] [address] [place] [address] Ayaka Salgado MD Chronic pruritus (Primary Dx); 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); Pruritus; Essential hypertension 07/12/2024 Travel 07/09/2024 Refill [facility] [address] [place] [address] Ayaka Salgado MD 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 1 08/29/2022 How many drinks containing a lcohol do you have on a typical day when you are drinking? 1 08/29/2022 How often do you have six or more drinks on one occasion? 1 08/29/2022 Depression Answer Date Recorded Patient Health Questionnaire-9 Score 7 08/29/2022 Housing Stability Answer Date Recorded What is your housing situation today? I have haven mott 06/30/[address] you li ve. Do you have problems with any of the following? None of the above 06/30/2023 Food Insecurity Answer Date Recorded Within the past 12 months, y ou worried that your food would run out before you got money to buy more: Never True 06/30/2023 Within the past 12 months,th e food you bought just didn't last and you didn't have enough money to get more: Never True Transportation Answer Date Recorded In the past 12 months, has l ack of transportation kept you from medical appts, meetings, work or from getting things needed for daily living? No 06/30/2023 Utilities Answer Date Recorded In the past 12 months, has t he electric, gas, oil or water company threatened to shut off services in your home? No 06/30/2023 Depression Answer Date Recorded Patient Health Questionnaire-2 Score 1 08/29/2022 Sex and Gender Information Value Date Recorded Sex Assigned at Male 07/15/2022 10:21 AM EDT Legal Sex Male 10:21 AM EDT Gender Identity Male 07/15/2022 10:21 AM EDT Sexual Orientation Straight 07/15/2022 10 :21 AM EDT Last Filed Vital Signs Vital Sign Reading Time Taken Comments Blood Pressure 133/80 08/17/2024 9:23 AM EST Pulse 54 08/17/2024 9:23 AM EST Temperature 36.4 ??C (97.5 ??F) 08/17/2024 9:23 AM ES T Respiratory Rate 12 08/17/2024 9:23 AM EST Oxygen Saturation 98% 08/17/2024 9:23 AM EST Inhaled Oxygen Concentration - - Weight 106 kg (234 lb 6.4 oz) 08/17/2024 9:23 AM EST Height 167.6 cm (5' 6 ) 08/17/2024 9:23 AM EST Body Mass Index 37.83 08/17/2024 9:23 AM EST Plan of Treatment Upcoming Encounters Date Type Department Care Team (Late st Contact Info) Description 11/24/2024 9:00 AM EDT Clinical Support [facility] [address] [place] [address] Alana Hook, RN [address] [place] [address] Health Maintenance Due Date Last Done Comments CT Colonography 1957 Colonoscopy 1957 Colorectal Cancer Screening 1957 FIT DNA/Cologuard 1957 FIT 1957 FOBT 1957 Sigmoidoscopy 1957 Alcohol/Substance Use Screening 1969 Hepatitis C Screening 12/09/1975 DTaP/Tdap/Td Vaccines (1 - Tdap) 09/16/2005 09/15/2005 Zoster Vaccines (1 of 2) 12/09/2007 RSV Patients and Patients Aged 60 years or older (1 - Risk 60-74 years 1-dose series) 2017 Depression Screening 08/29/2023 08/29/2022, 08/29/20 22 SDOH Screening 10/10/2023 10/10/2022 COVID-19 Vaccine ( season) 2024 08/03/2021, 11/03/2020, 10/06/2020 Diabetes: Foot Exam 10/01/2024 10/01/2023, 10/01/2023, 10/01/2023, Additional history exists Lipid Panel 11/12/2024 11/12/2023 Diabetes: Hemoglobin A1C 01/10/202507/12/2 024, 10/01/2023, 06/30/2023, Additional history exists Influenza Vaccine (#1) 2025 Postp oned from 05/16/2024 (Patient Refused) Eye Exam 05/04/2025 05/04/2024, 05/29/2023 Pneumococcal Vaccine: 65+ Years (1 of 2 - PCV) 07/12/2025 Postponed from 12/09/1963 (Patient Refused) Tobacco Screening 08/17/2025 08/17/2024 HIB Vaccines Aged Out No longer eligi ble based on patient's age to complete this topic HPV Vaccines Aged Out No longer eligi ble based on patient's age to complete this topic Hepatitis A Vaccines Aged Out No long er eligible based on patient's age to complete this topic Hepatitis B Vaccines Aged Out No long er eligible based on patient's age to complete this topic IPV Vaccines Aged Out No longer eligi ble based on patient's age to complete this topic Meningococcal Vaccine Aged Out No joaquín mandi eligible based on patient's age to complete this topic RSV under 20 months Aged Out No longe r eligible based on patient's age to complete this topic Rotavirus Vaccines Aged Out No longer eligible based on patient's age to complete this topic Procedures Procedure Name Priority Date/Time Associated Diagnosis Comments POCT VESNA-14 URINE DRUG SCREEN Routine 08/31/2024 9:04 AM EST Back pain, unspecified back location, unspecified back pain laterality, unspecified chronicity POCT GLUCOSE Routine 07/12/2024 1:07 PM EDT 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) POCT GLYCATED HEMOGLOBIN, TOTAL Routine 07/12/2024 1:06 PM EDT 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) HM DIABETES EYE EXAM Routine 05/04/2024 12:18 PM EDT LIPID PANEL, STANDARD Routine 11/12/2023 9:08 AM EST 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) Essential hypertension from Last 3 Months or Most Recently Relevant to Health Maintenance Results * POCT VESNA-14 Urine Drug Screen (08/31/2024 9:04 AM EST) Oxycodone Screen, Urine Positive Urine Urine specimen obtained by clean catch procedure / Unknown 08/31/2024 9:04 AM EST Alana Valdez RN - 08/31/2024 9:04 AM EST Lot# [id number] Exp: 08-21-25 us Ayaka Salgado MD POINT OF CARE TEST ENTER/ED IT ORDERABLES Final Result * POCT Glucose (07/12/2024 1:07 PM EDT) Pathologist [facility] Glucose Blood, POC 131 60 - 200 mg/dL QC Media Lot # [id number] Comment:fasting Lot# Expiration Date Blood Capillary blood specimen / Unknown 07/12/2024 1:07 PM EDT Ayaka Salgado MD POINT OF CARE TEST ENTER/ED IT ORDERABLES Final Result * (ABNORMAL) POCT HGB A1C (07/12/2024 1:06 PM EDT) Pathologist [facility] Hemoglobin A1C 6.1(A) 4.0 - 6.0 % QC Media Lot # [id number] Lot# Expiration Date Blood 07/12/2024 1:06 PM EDT Ayaka Salgado MD POINT OF CARE TEST ENTER/ED IT ORDERABLES Final Result * Diabetes Eye Exam (05/04/2024 12:18 PM EDT) Historical Provider MD HEALTH MAINTENANCE Final Result * (ABNORMAL) Lipid Panel, Standard (11/12/2023 9:08 AM EST) [facility] Triglycerides 55 <150 mg/dL [facility] Comment:Desirable Triglyceri de: less than 150 mg/dLBorderline High Triglyceride 150-199 mg/dLHigh Triglyceride: 200-499 mg/dLVery High Triglyceride: greater than or equal to 5OO mg/dL Cholesterol 101 <200 mg/dL [facility] Comment:Desirable Cholestero l: less than 200 mg/dLBorderline High Cholesterol: 200-239 mg/dLHigh Cholesterol: greater than 239 mg/dL LDL Cholesterol Calculated 57 <100 mg/dL [facility] Comment:Desirable LDL: less than 100 mg/dLNear Optimal/Above Optimal LDL: 110- 129 mg/dLBorderline High LDL: 130-159 mg/dLHigh LDL: 160-189 mg/dLVery High LDL: greater than or equal to 190 mg/dL HDL Cholesterol 33(L) >40 mg/dL [facility] Comment:Desirable HDL: great er than 40 mg/dL Note: This HDL assay may give artificially low results in patients with liver disease. Blood Venous blood specimen / Unknown 11/12/2023 9:08 AM EST 11/12/2023 2:41 PM EST Ayaka Salgado MD LAB BLOOD ORDERABLES Final Result Performing Organization Address City/State/[facility] Co de Phone Number [facility] [address] [place] [address] [phone] from Last 3 Months or Most Recently Relevant to Health Maintenance Insurance [facility] AARP MEDICARE ADVANTAGE O Care Teams Recyclable Materials Collector Relationship Specialty Start Date End Date Ayaka Salgado MD [address] [place] [address] [place] [id number] PCP - General Internal Medicine 09/15/18
--- OUTSIDE RECORDS SUMMARY | 2024-10-05 11:10 | XMS_ITS | Encounter Summary ---
Author Organization [employer] Address [address] [facility] 7 [place] [address] Care Team Providers Care System Technologist Name Role Phone Ayaka Salgado MD Primary Care Provider [phone] Reason for Visit * Reason Onset Date Comments Med Refill 09/29/2024 Encounter Details Date Type Department Care Team (Late st Contact Info) Description 09/29/2024 Refill [facility] [address] [place] [address] Ayaka Salgado MD [address] [facility] [place] [phone] Arthropathy (Primary Dx) Social History Tobacco Use Types Packs/Day Years Used Date Smoking Tobacco: Former Cigarettes 0.3 50 Smokeless Tobacco: Never Alcohol Use Standard Drinks/Week Comments Yes 0 [...] Orientation Straight 07/15/2022 10 :21 AM EDT documented as of this encounter Miscellaneous Notes * Telephone Encounter - Edward Vallejo - 09/29/2024 8:06 AM EST TC from pt requesting medication refill. Medications needing refill : oxyCODONE-acetaminophen (Percocet) 5-325 MG tablet To be sent to: [id number] - [place] - [address] [facility] [address] documented in this encounter Plan of Treatment Upcoming Encounters Date Type Department Care Team ([facility] st Contact Info) Description 11/24/2024 9:00 AM EDT Clinical Support [facility] [address] [facility] [place] [address] Alana Hook, RACHELLE [address] [place] [address] documented as of this encounter Visit Diagnoses Diagnosis Arthropathy- Primary Unspecified arthropathy, site unspecified documented in this encounter Additional Health Concerns Assessment Noted Time PHQ-9 Depression Total Score: 7 08/29/20 22 10:26 AM EST documented as of this encounter Care Teams System Technologist Relationship Specialty Start Date End Date Ayaka Salgado MD [address] [facility] [place] [address] PCP - General Internal Medicine 09/15/18 documented as of this encounter
--- OUTSIDE RECORDS SUMMARY | 2024-10-05 11:10 | XMS_ITS | Encounter Summary ---
Author Organization [employer] Address [address] [facility] [address] [place] [address] Care Team Providers Care Lot Technician Name Role Phone Ayaka Salgado MD Primary Care Provider [phone] Encounter Details Date Type Department Care Team ([facility] st Contact Info) Description 05/26/2024 Orders Only [facility] [address] [place] [address] Ayaka Salgado MD [address] [place] [address] Simple chronic bronchitis (CMS/HCC) (Primary Dx) Social History Tobacco Use Types [...] AM EDT documented as of this encounter Plan of Treatment Upcoming Encounters Date Type Department Care Team (Late st Contact Info) Description 11/24/2024 9:00 AM EDT Clinical Support [facility] [address] [place] [address] Alana Hook, RACHELLE [address] [place] [address] documented as of this encounter Visit Diagnoses Diagnosis Simple chronic bronchitis (CMS/HCC)- Primary Simple chronic bronchitis documented in this encounter Additional Health Concerns Assessment Noted Time PHQ-9 Depression Total Score: 7 08/29/20 22 10:26 AM EST documented as of this encounter Care Teams Lot Technician Relationship Specialty Start Date End Date Ayaka Salgado MD [address] [place] [address] PCP - General Internal Medicine 09/15/18 documented as of this encounter
--- OUTSIDE RECORDS SUMMARY | 2024-10-05 11:10 | XMS_ITS | Encounter Summary ---
Author Organization [employer] Address 75 [facility] 7 [place] [address] Care Team Providers Care Diet Attendant Name Role Phone Ayaka Salgado MD Primary Care Provider [phone] Reason for Visit * Reason Onset Date Comments Med Refill 07/14/2024 Encounter Details Date Type Department Care Team ([facility] st Contact Info) Description 07/14/2024 Telephone [facility] MEDICINE [address] [place] [address] Ayaka Salgado MD 505 [facility] [place] [address] Med Refill Social History Tobacco Use Types Packs/Day Years [...] encounter Miscellaneous Notes * Telephone Encounter - Milka Ibanez - 07/14/2024 8:21 AM EDT Tc from pt requesting a refill for oxyCODONE-acetaminophen (Percocet) 5-325 MG tablet documented in this encounter Plan of Treatment Upcoming Encounters Date Type Department Care Team (Late st Contact Info) Description 11/24/2024 9:00 AM EDT Clinical Support [facility] MED & PEDS [address] [place] [address] Alana Hook RN 505 [place] [address] documented as of this encounter Visit Diagnoses Not on filedocumented in this encounter Additional Health Concerns Assessment Noted Time PHQ-9 Depression Total Score: 7 08/29/20 22 10:26 AM EST documented as of this encounter Care Teams Diet Attendant Relationship Specialty Start Date End Date Ayaka Salgado MD [address] [place] [address] PCP - General Internal Medicine 09/15/18 documented as of this encounter
--- OUTSIDE RECORDS SUMMARY | 2024-10-05 11:10 | XMS_ITS | Encounter Summary ---
Author Organization [employer] Address 75 [facility] 7 [place] [address] Care Team Providers Care Platform Beater Name Role Phone Ayaka Salgado MD Primary Care Provider [phone] Reason for Visit * Reason Onset Date Comments Med Refill 09/06/2024 Encounter Details Date Type Department Care Team ([facility] st Contact Info) Description 09/06/2024 Telephone [facility] MEDICINE [address] [place] [address] Ayaka Salgado MD 505 [facility] [place] [address] Med Refill Social History Tobacco Use Types [...] encounter Miscellaneous Notes * Telephone Encounter - Lissa White LPN - 09/06/2024 8:56 AM EST Medication was sent to [id number] on 08/09/24 with 3 refills. * Telephone Encounter - Cleopatra Ortiz - 09/06/2024 8:53 AM EST TC from pt requesting medication refill. Medications needing refill : labetalol (Normodyne) 200 MG tablet To be sent to: [id number] - [place] - [address] [facility] documented in this encounter Plan of Treatment Upcoming Encounters Date Type Department Care Team ([facility] st Contact Info) Description 11/24/2024 9:00 AM EDT Clinical Support [facility] MED & PEDS 505 [facility] [place] [address] Alana Hook, RN [address] [facility] [place] [address] documented as of this encounter Visit Diagnoses Not on filedocumented in this encounter Additional Health Concerns Assessment Noted Time PHQ-9 Depression Total Score: 7 08/29/20 22 10:26 AM EST documented as of this encounter Care Teams Platform Beater Relationship Specialty Start Date End Date Ayaka Salgado MD 505 [place] [address] PCP - General Internal Medicine 09/15/18 documented as of this encounter
--- OUTSIDE RECORDS SUMMARY | 2024-10-05 11:10 | XMS_ITS | Encounter Summary ---
Author Organization [employer] Address 75 [facility] 7 [place] [address] Care Team Providers Care Colleter Name Role Phone Ayaka Salgado MD Primary Care Provider [phone] Reason for Visit * Reason Onset Date Comments Med Refill 04/20/2024 Encounter Details Date Type Department Care Team ([facility] st Contact Info) Description 04/20/2024 Telephone [facility] MEDICINE 230 [place] [address] Ayaka Salgado MD 505 [facility] [place] [address] Med Refill Social History Tobacco Use Types [...] * Telephone Encounter - Milka Ibanez - 04/20/2024 1:23 PM EDT Tc from pt requesting a refill for oxyCODONE-acetaminophen (Percocet) 5-325 MG tablet documented in this encounter Plan of Treatment Upcoming Encounters Date Type Department Care Team (Late st Contact Info) Description 11/24/2024 9:00 AM EDT Clinical Support [facility] MED & PEDS 505 [place] [address] Alana Hook RN 505 [place] [address] documented as of this encounter Visit Diagnoses Not on filedocumented in this encounter Additional Health Concerns Assessment Noted Time PHQ-9 Depression Total Score: 7 08/29/20 22 10:26 AM EST documented as of this encounter Care Teams Colleter Relationship Specialty Start Date End Date Ayaka Salgado MD 505 [place] [address] PCP - General Internal Medicine 09/15/18 documented as of this encounter
--- OUTSIDE RECORDS SUMMARY | 2024-10-05 11:10 | XMS_ITS | Encounter Summary ---
Author Organization [employer] Address 75 [facility] 7t [place] [address] Care Team Providers Care Irish Moss Bleacher Name Role Phone Ayaka Salgado MD Primary Care Provider [phone] Reason for Visit * Reason Comments Med Refill Encounter Details Date Type Department Care Team ([facility] st Contact Info) Description 06/15/2024 Refill [facility] MEDICINE [address] [place], [place] [id number] Lev Gentile MD 230 [place] [address] Chronic pruritus Social History Tobacco Use Types Packs/Day Years [...] Description 11/24/2024 9:00 AM EDT Clinical Support [facility] MED & PEDS 505 [place] [address] Alana Hook RN 505 [place] [address] documented as of this encounter Visit Diagnoses Diagnosis Chronic pruritus documented in this encounter Additional Health Concerns Assessment Noted Time PHQ-9 Depression Total Score: 7 08/29/20 22 10:26 AM EST documented as of this encounter Care Teams Irish Moss Bleacher Relationship Specialty Start Date End Date Ayaka Salgado MD 505 [place] [address] PCP - General Internal Medicine 09/15/18 documented as of this encounter
--- OUTSIDE RECORDS SUMMARY | 2024-10-05 11:10 | XMS_ITS | Encounter Summary ---
Author Organization [employer] Address [address] 7t [place] [address] Care Team Providers Care Transit Mixer Driver Name Role Phone Ayaka Salgado MD Primary Care Provider [phone] Encounter Details Date Type Department Care Team ([facility] st Contact Info) Description 06/25/2024 Orders Only [facility] MED & PEDS [address] [place] [address] ProviderRan MD Social History Tobacco Use Types Packs/Day Years [...] Upcoming Encounters Date Type Department Care Team ([facility] st Contact Info) Description 11/24/2024 9:00 AM EDT Clinical Support [facility] MED & PEDS 505 [place] [address] Alana Hook RN 505 [place] [address] documented as of this encounter Procedures Procedure Name Priority Date/Time Associated Diagnosis Comments DIABETES EYE EXAM Routine 05/04/2024 12:18 PM EDT documented in this encounter Results * Diabetes Eye Exam (05/04/2024 12:18 PM EDT) Historical Provider HEALTH MAINTENANCE Final Result documented in this encounter Visit Diagnoses Not on filedocumented in this encounter Additional Health Concerns Assessment Noted Time PHQ-9 Depression Total Score: 7 08/29/20 22 10:26 AM EST documented as of this encounter Care Teams Transit Mixer Driver Relationship Specialty Start Date End Date Ayaka Salgado MD 505 [place] [address] PCP - General Internal Medicine 09/15/18 documented as of this encounter
--- OUTSIDE RECORDS SUMMARY | 2024-10-05 11:10 | XMS_ITS | Encounter Summary ---
Author Organization [employer] Address 75 [facility] 7 [place] [address] Care Team Providers Care Stuffing Machine Operator Name Role Phone Ayaka Salgado MD Primary Care Provider [phone] Reason for Visit * Reason Onset Date Comments Med Refill 09/23/2024 Encounter Details Date Type Department Care Team (Late st Contact Info) Description 09/23/2024 Refill [facility] MEDICINE 230 [place] [address] Ayaka Salgado MD 505 [facility] [place] [address] Primary osteoarthritis involving multiple joints Social History Tobacco Use Types Packs/Day Years [...] encounter Miscellaneous Notes * Telephone Encounter - Teodoro Cummings - 09/23/2024 9:42 AM EST TC from pt requesting medication refill. Medications needing refill : zolpidem (Ambien) 10 MG tablet To be sent to: [facility] documented in this encounter Plan of Treatment Upcoming Encounters Date Type Department Care Team (Late st Contact Info) Description 11/24/2024 9:00 AM EDT Clinical Support [facility] MED & PEDS 505 [place] [address] Alana Hook RN 505 [place] [address] documented as of this encounter Visit Diagnoses Diagnosis Primary osteoarthritis involving multiple joints documented in this encounter Additional Health Concerns Assessment Noted Time PHQ-9 Depression Total Score: 7 08/29/20 22 10:26 AM EST documented as of this encounter Care Teams Stuffing Machine Operator Relationship Specialty Start Date End Date Ayaka Salgado MD 505 [place] [address] PCP - General Internal Medicine 09/15/18 documented as of this encounter
--- OUTSIDE RECORDS SUMMARY | 2024-10-05 11:10 | XMS_ITS | Encounter Summary ---
Author Organization [employer] Address 75 [facility] 7 [place] [address] Care Team Providers Care Emblem Drawer In Name Role Phone Ayaka Salgado MD Primary Care Provider [phone] Reason for Visit * Reason Onset Date Comments Med Refill 05/31/2024 Encounter Details Date Type Department Care Team ([facility] st Contact Info) Description 05/31/2024 Telephone [facility] MEDICINE 230 [place] [address] Ayaka Salgado MD 505 [facility] [place] [address] Med Refill Social History Tobacco Use Types [...] * Telephone Encounter - Milka Ibanez - 05/31/2024 10:17 AM EDT Tc from pt requesting a refill for zolpidem (Ambien) 10 MG tablet documented in this encounter Plan of Treatment Upcoming Encounters Date Type Department Care Team ([facility] st Contact Info) Description 11/24/2024 9:00 AM EDT Clinical Support [facility] MED & PEDS 505 [place] [address] Alana Hook RN 505 [place] [address] documented as of this encounter Visit Diagnoses Not on filedocumented in this encounter Additional Health Concerns Assessment Noted Time PHQ-9 Depression Total Score: 7 08/29/20 22 10:26 AM EST documented as of this encounter Care Teams Emblem Drawer In Relationship Specialty Start Date End Date Ayaka Salgado MD 505 [place] [address] PCP - General Internal Medicine 09/15/18 documented as of this encounter
--- OUTSIDE RECORDS SUMMARY | 2024-10-05 11:10 | XMS_ITS | Encounter Summary ---
Author Organization [employer] Address [address] [place] [address] 7 [place] [address] Care Team Providers Care Principal Consultant Name Role Phone Ayaka Salgado MD Primary Care Provider [phone] Reason for Visit * Reason Comments Med Refill Encounter Details Date Type Department Care Team ([facility] st Contact Info) Description 09/08/[address] 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
--- OUTSIDE RECORDS SUMMARY | 2024-10-05 11:10 | XMS_ITS | Encounter Summary ---
Author Organization [employer] Address 75 [facility] 7t [place] [address] Care Team Providers Care Physician Asst Name Role Phone Ayaak Salgado MD Primary Care Provider [phone] Encounter Details Date Type Department Care Team ([facility] st Contact Info) Description 04/29/2024 Telephone [facility] MEDICINE 230 [place] [address] Ayaka Salgado MD [address] [place] [address] Social History Tobacco Use Types Packs/Day Years [...] encounter Miscellaneous Notes * Telephone Encounter - Barry Paulino - 04/29/2024 1:16 PM EDT TC from pt requesting medication refill. Medications needing refill: zolpidem (Ambien) 10 MG tablet To be sent to: [id number] - [place], [place] - [address] [facility] documented in this encounter Plan of Treatment Upcoming Encounters Date Type Department Care Team ([facility] st Contact Info) Description 11/24/2024 9:00 AM EDT Clinical Support [facility] MED & PEDS 505 [place] [address] Alana Hook RN 505 [place] [address] documented as of this encounter Visit Diagnoses Not on filedocumented in this encounter Additional Health Concerns Assessment Noted Time PHQ-9 Depression Total Score: 7 08/29/20 22 10:26 AM EST documented as of this encounter Care Teams Physician Asst Relationship Specialty Start Date End Date Ayaka Salgado MD 505 [place] [address] PCP - General Internal Medicine 09/15/18 documented as of this encounter
--- OUTSIDE RECORDS SUMMARY | 2024-10-05 11:10 | XMS_ITS | Encounter Summary ---
Author Organization [employer] Address 75 [facility] 7 [place] [address] Care Team Providers Care Cheese Tester Name Role Phone Ayaka Salgado MD Primary Care Provider [phone] Reason for Visit * Reason Onset Date Comments Med Refill 09/06/2024 Encounter Details Date Type Department Care Team (Late st Contact Info) Description 09/06/2024 Refill [facility] MEDICINE [address] [place] [address] Ayaka Salgado MD 505 [facility] [place] [address] Back pain, unspecified back location, unspecified back pain laterality, unspecified chronicity Social History Tobacco Use Types Packs/Day Years [...] encounter Miscellaneous Notes * Telephone Encounter - Cleopatra Ortiz - 09/06/2024 1:16 PM EST TC from pt requesting medication refill. Medications needing refill : oxyCODONE-acetaminophen (Percocet) 5-325 MG tablet To be sent to: [id number] - [place], [place] - [address] [facility] [address] documented in this encounter Plan of Treatment Upcoming Encounters Date Type Department Care Team ([facility] st Contact Info) Description 11/24/2024 9:00 AM EDT Clinical Support [facility] MED & PEDS 505 [place] [address] Alana Hook, RACHELLE 505 [place] [address] documented as of this encounter Visit Diagnoses Diagnosis Back pain, unspecified back location, unspecified back pain laterality, unspecified chronicity documented in this encounter Additional Health Concerns Assessment Noted Time PHQ-9 Depression Total Score: 7 08/29/20 22 10:26 AM EST documented as of this encounter Care Teams Cheese Tester Relationship Specialty Start Date End Date Ayaka Salgado MD [address] [place] [address] PCP - General Internal Medicine 09/15/18 documented as of this encounter
--- OUTSIDE RECORDS SUMMARY | 2024-10-05 11:10 | XMS_ITS | Encounter Summary ---
Author Organization [employer] Address [address] [place] [address] 7 [place] [address] Care Team Providers Care Enterprise Architect Name Role Phone Ayaka Salgado MD Primary Care Provider [phone] Reason for Visit * Reason Onset Date Comments Med Refill 08/05/2024 Encounter Details Date Type Department Care Team ([facility] st Contact Info) Description 08/05/2024 Refill [facility] MED & PEDS [address] [place] [address] Ayaka Salgado MD 505 [place] [address] Back pain, unspecified back location, unspecified back pain laterality, unspecified chronicity (Primary Dx) Social History Tobacco Use Types [...] the past 12 months, has t he [employer], gas, oil or water [employer] threatened to shut off services in your [...] encounter Miscellaneous Notes * Telephone Encounter - Alana Hook RN - 08/18/2024 4:00 PM EST TC to pt's pharm regarding message below. Per pharmacist pt picked up Ambien on 07/29/24, qty 30 and med not due for a refill until 08/25/24. TC to pt, pt states he always take 1 pill at bedtime. Pt states med is kept in a lock box in his room. Pt thinks he did not get a full qty when picked up med. Pt is always compliant. Asking if he can get a refill because he is out of med. Please advise. * Telephone Encounter - Lacy New - 08/05/2024 8:16 AM EST TC from pt requesting medication refill. Medications needing refill : oxyCODONE-acetaminophen (Percocet) 5-325 MG tablet To be sent to: [id number] - [place], [place] - [address] [facility] [address] documented in this encounter Plan of Treatment Upcoming Encounters Date Type Department Care Team (Late st Contact Info) Description 11/24/2024 9:00 AM EDT Clinical Support [facility] MED & PEDS 505 [place] [address] Alana Hook, RN 505 [place] [address] documented as of this encounter Visit Diagnoses Diagnosis Back pain, unspecified back location, unspecified back pain laterality, unspecified chronicity- Primary documented in this encounter Additional Health Concerns Assessment Noted Time PHQ-9 Depression Total Score: 7 08/29/20 22 10:26 AM EST documented as of this encounter Care Teams Enterprise Architect Relationship Specialty Start Date End Date Ayaka Salgado MD 505 [place] [address] PCP - General Internal Medicine 09/15/18 documented as of this encounter
--- OUTSIDE RECORDS SUMMARY | 2024-10-05 11:10 | XMS_ITS | Encounter Summary ---
Author Organization [employer] Address 75 [facility] 7t [place] [address] Care Team Providers Care Cooker Sulfate Name Role Phone Ayaka Salgado MD Primary Care Provider [phone] Reason for Visit * Reason Comments Med Refill Encounter Details Date Type Department Care Team (Late st Contact Info) Description 09/22/2024 Refill [facility] MEDICINE 230 [place] [address] Ayaka Salgado MD [address] [facility] [address] [place] [address] Social History Tobacco Use Types Packs/Day Years [...] Description 11/24/2024 9:00 AM EDT Clinical Support [facility] MED & PEDS 505 [place] [address] Alana Hook, RACHELLE 505 [place] [address] documented as of this encounter Visit Diagnoses Not on filedocumented in this encounter Additional Health Concerns Assessment Noted Time PHQ-9 Depression Total Score: 7 08/29/20 22 10:26 AM EST documented as of this encounter Care Teams Cooker Sulfate Relationship Specialty Start Date End Date Ayaka Salgado MD 505 [place] [address] PCP - General Internal Medicine 09/15/18 documented as of this encounter
--- OUTSIDE RECORDS SUMMARY | 2024-10-05 11:10 | XMS_ITS | Encounter Summary ---
Author Organization [employer] Address 75 [facility] 7 [place] [address] Care Team Providers Care Health Clinician Name Role Phone Ayaka Salgado MD Primary Care Provider [phone] Reason for Visit * Reason Onset Date Comments Med Refill 05/11/2024 Encounter Details Date Type Department Care Team ([facility] st Contact Info) Description 05/11/2024 Telephone [facility] MEDICINE [address] [place] [address] Ayaka Salgado MD 505 [facility] [place] [address] Med Refill Social History Tobacco Use Types [...] * Telephone Encounter - Teodoro Cummings - 05/11/2024 9:48 AM EDT TC from pt requesting medication refill. Medications needing refill : oxyCODONE-acetaminophen (Percocet) 5-325 MG tablet To be sent to: [facility] documented in this encounter Plan of Treatment Upcoming Encounters Date Type Department Care Team ([facility] st Contact Info) Description 11/24/2024 9:00 AM EDT Clinical Support [facility] MED & PEDS [address] [place] [address] Alana Hook RN 505 [place] [address] documented as of this encounter Visit Diagnoses Not on filedocumented in this encounter Additional Health Concerns Assessment Noted Time PHQ-9 Depression Total Score: 7 08/29/20 22 10:26 AM EST documented as of this encounter Care Teams Health Clinician Relationship Specialty Start Date End Date Ayaka Salgado MD 505 [place] [address] PCP - General Internal Medicine 09/15/18 documented as of this encounter
--- OUTSIDE RECORDS SUMMARY | 2024-10-05 11:10 | XMS_ITS | Encounter Summary ---
Author Organization [employer] Address 75 [facility] 7 [place] [address] Care Team Providers Care Lining Marker Name Role Phone Ayaka Salgado MD Primary Care Provider [phone] Reason for Visit * Reason Onset Date Comments Med Refill 08/09/2024 Encounter Details Date Type Department Care Team ([facility] st Contact Info) Description 08/09/2024 Telephone [facility] MEDICINE [address] [place] [address] Ayaka Salgado MD 505 [facility] [place] [address] Med Refill Social History Tobacco Use Types [...] encounter Miscellaneous Notes * Telephone Encounter - Saulo Ott - 08/09/2024 12:44 PM EST TC from pt requesting medication refill. Medications needing refill : oxyCODONE-acetaminophen (Percocet) 5-325 MG tablet To be sent to: [facility] #[id number] documented in this encounter Plan of Treatment Upcoming Encounters Date Type Department Care Team ([facility] st Contact Info) Description 11/24/2024 9:00 AM EDT Clinical Support [facility] MED [facility] PEDS 505 [place] [address] Alana Hook RN 505 [place] [address] documented as of this encounter Visit Diagnoses Not on filedocumented in this encounter Additional Health Concerns Assessment Noted Time PHQ-9 Depression Total Score: 7 08/29/20 22 10:26 AM EST documented as of this encounter Care Teams Lining Marker Relationship Specialty Start Date End Date Ayaka Salgado MD 505 [place] [address] PCP - General Internal Medicine 09/15/18 documented as of this encounter
--- OUTSIDE RECORDS SUMMARY | 2024-10-05 11:10 | XMS_ITS | Encounter Summary ---
Author Organization [employer] Address 75 [facility] 7t [place] [address] Care Team Providers Care Softball Core Molder Name Role Phone Ayaka Salgado MD Primary Care Provider [phone] Encounter Details Date Type Department Care Team ([facility] st Contact Info) Description 08/18/2024 Telephone [facility] MEDICINE [address] [place] [address] Ayaka Salgado MD [address] [place] [address] Social History Tobacco Use Types Packs/Day Years [...] Upcoming Encounters Date Type Department Care Team ([facility] st Contact Info) Description 11/24/2024 9:00 AM EDT Clinical Support [facility] 505 [place] [address] Alana Hook, RACHELLE 505 [place] [address] documented as of this encounter Visit Diagnoses Not on filedocumented in this encounter Additional Health Concerns Assessment Noted Time PHQ-9 Depression Total Score: 7 08/29/20 22 10:26 AM EST documented as of this encounter Care Teams Softball Core Molder Relationship Specialty Start Date End Date Ayaka Salgado MD 505 [place] [address] PCP - General Internal Medicine 09/15/18 documented as of this encounter
--- OUTSIDE RECORDS SUMMARY | 2024-10-05 11:10 | XMS_ITS | Encounter Summary ---
Author Organization [employer] Address 75 [facility] 7 [place] [address] Care Team Providers Care Warp Knitter Helper Name Role Phone Ayaka Salgado MD Primary Care Provider [phone] Reason for Visit * Reason Onset Date Comments Medication Question 05/28/2024 Encounter Details Date Type Department Care Team ([facility] st Contact Info) Description 05/28/2024 Telephone [facility] MEDICINE [address] [place] [address] Ayaka Salgado MD 505 [facility] [place] [address] Medication Question Social History Tobacco Use Types Packs/Day Years [...] encounter Miscellaneous Notes * Telephone Encounter - Juanita Jamil RN - 05/28/2024 1:13 PM EDT Albuterol inhaler sent as requested. Pt has upcoming appt with PCP on 06/16/24. Please advise as Spiriva and symbicort are not covered. * Telephone Encounter - Milka Ibanez - 05/28/2024 12:51 PM EDT Tc from pt requesting a call back, states script for spiriva is not covered by insurance and is requesting an alternative. Please contact at [phone] documented in this encounter Plan of Treatment Upcoming Encounters Date Type Department Care Team (Late st Contact Info) Description 11/24/2024 9:00 AM EDT Clinical Support [facility] MED & PEDS 505 [place] [address] Alana Hook, RN [address] [place] [address] documented as of this encounter Visit Diagnoses Diagnosis Chronic obstructive pulmonary disease, unspecified COPD type (CMS/HCC)- Primary documented in this encounter Additional Health Concerns Assessment Noted Time PHQ-9 Depression Total Score: 7 08/29/20 22 10:26 AM EST documented as of this encounter Care Teams Warp Knitter Helper Relationship Specialty Start Date End Date Ayaka Salgado MD [address] [place] [address] PCP - General Internal Medicine 09/15/18 documented as of this encounter
--- OUTSIDE RECORDS SUMMARY | 2024-10-05 11:10 | XMS_ITS | Encounter Summary ---
Author Organization [employer] Address 75 [facility] 7t [place] [address] Care Team Providers Care Physics Department Chair Name Role Phone Ayaka Salgado MD Primary Care Provider [phone] Encounter Details Date Type Department Care Team ([facility] st Contact Info) Description 08/20/2024 Orders Only [facility] CHC MED & PEDS [address] [place] [address] Ayaka Salgado MD [address] [place] [address] Social History Tobacco Use Types Packs/Day Years [...] Upcoming Encounters Date Type Department Care Team ([facility] st Contact Info) Description 11/24/2024 9:00 AM EDT Clinical Support [facility] MED & PEDS [address] [place] [address] Alana Hook, RACHELLE 505 [place] [address] documented as of this encounter Visit Diagnoses Not on filedocumented in this encounter Additional Health Concerns Assessment Noted Time PHQ-9 Depression Total Score: 7 08/29/20 22 10:26 AM EST documented as of this encounter Care Teams Physics Department Chair Relationship Specialty Start Date End Date Ayaka Salgado MD 505 [place] [address] PCP - General Internal Medicine 09/15/18 documented as of this encounter
--- OUTSIDE RECORDS SUMMARY | 2024-10-05 11:11 | XMS_ITS | Encounter Summary ---
Author Organization [employer] Address 75 [facility] 7 [place] [address] Care Team Providers Care Rehab Director Occupational Therapist Name Role Phone Ayaka Salgado MD Primary Care Provider [phone] Reason for Visit * Reason Onset Date Comments Med Refill 07/31/2023 Encounter Details Date Type Department Care Team ([facility] st Contact Info) Description 07/31/2023 Telephone [facility] MEDICINE [address] [place] [address] Ayaka Salgado MD 505 [facility] [place] [address] Med Refill Social History Tobacco Use Types [...] encounter Miscellaneous Notes * Telephone Encounter - Brenda Hernandez - 07/31/2023 12:34 PM EST Tc from pt requesting med refill on; doxycycline (Vibra-Tabs) 100 MG tablet documented in this encounter Plan of Treatment Upcoming Encounters Date Type Department Care Team (Late st Contact Info) Description 11/24/2024 9:00 AM EDT Clinical Support [facility] CH[facility] MED & PEDS [address] [place] [address] Alana Hook, RACHELLE 505 [place] [address] documented as of this encounter Visit Diagnoses Not on filedocumented in this encounter Additional Health Concerns Assessment Noted Time PHQ-9 Depression Total Score: 7 08/29/20 22 10:26 AM EST documented as of this encounter Care Teams Rehab Director Occupational Therapist Relationship Specialty Start Date End Date Ayaka Salgado MD 505 [place] [address] PCP - General Internal Medicine 09/15/18 documented as of this encounter
--- OUTSIDE RECORDS SUMMARY | 2024-10-05 11:11 | XMS_ITS | Encounter Summary ---
Author Organization [employer] Address [address] [place] [address] 7 [place] [address] Care Team Providers Care Nursing Consultant Name Role Phone Ayaka Salgado MD Primary Care Provider [phone] Reason for Visit * Reason Onset Date Comments Letter Accomodation 12/12/2022 Encounter Details Date Type Department Care Team ([facility] st Contact Info) Description 12/12/2022 Telephone [facility] CHC MED & PEDS [address] [place] [address] Ayaka Salgado MD 505 [place] [address] Letter Accomodation Social History Tobacco Use Types Packs/Day Years Used Date Smoking Tobacco: Former Cigarettes 0.3 50 Smokeless Tobacco: Never Alcohol Use Standard Drinks/Week Comments Yes 0 (1 standard drink = 0.6 oz pur e alcohol) occa Alcohol Answer Date Recorded How often do you have a drink containing alcohol ? 1 08/29/2022 How many drinks containing a lcohol do you have on a typical day when you are drinking? 1 08/29/2022 How often do you have six or more drinks on one occasion? 1 08/29/2022 Depression Answer Date Recorded Patient Health Questionnaire-9 Score 7 08/29/2022 Depression Answer Date Recorded Patient Health Questionnaire-2 Score 1 08/29/2022 Sex and Gender Information Value Date Recorded Sex Assigned at Male 07/15/2022 10:21 AM EDT Legal Sex Male 10:21 AM EDT Gender Identity Male 07/15/2022 10:21 AM EDT Sexual Orientation Straight 07/15/2022 10 :21 AM EDT COVID-19 Exposure Response Date Recorded In the last 10 days, have sean larios been in contact with someone who was confirmed or suspected to have Coronavirus/COVID-19? No / Unsure 11/22/2022 9:10 AM EST documented as of this encounter Miscellaneous Notes * Telephone Encounter - Radha Parsons RN - 12/13/2022 2:01 PM EDT Incoming message from PCP Please find out what type of accomodation letter Mr Lewis Saldivar needs. I am unsure of what to write in the letter. When RN spoke with pt, pt agreed to come to medical record to discuss with the form nurse regardingrequested letter. Will forward to PCP as FYI * Telephone Encounter - Radha Parsons RN - 12/12/2022 11:18 AM EDT RN called pt back and informed him to come to medical records to request for the accomodation letter. Pt also advised medication request has been sent to PCP. Pt is also requesting for refill for hisPercocet. Advised message will be forwarded to CO DIRECTOR nurse regarding his request. Pt verbalizes understanding. * Telephone Encounter - Abiel Mills - 12/12/2022 9:32 AM EDT Tc from pt requesting an Accomodation letter. Please contact pt at [phone] documented in this encounter Plan of Treatment Upcoming Encounters Date Type Department Care Team ([facility] st Contact Info) Description 11/24/2024 9:00 AM EDT Clinical Support [facility] MED & PEDS [address] [place] [address] Alana Hook, RN 505 [place] [address] documented as of this encounter Visit Diagnoses Diagnosis Congestive heart failure, unspecified HF chronicity, unspecified heart failure type (CMS/[facility]) Primary osteoarthritis involving multiple joints documented in this encounter Additional Health Concerns Assessment Noted Time PHQ-9 Depression Total Score: 7 08/29/20 22 10:26 AM EST documented as of this encounter Care Teams Nursing Consultant Relationship Specialty Start Date End Date Ayaka Salgado MD [address] [place] [address] PCP - General Internal Medicine 09/15/18 documented as of this encounter
--- OUTSIDE RECORDS SUMMARY | 2024-10-05 11:11 | XMS_ITS | Encounter Summary ---
Author Organization [employer] Address 75 [facility] 7 [place] [address] Care Team Providers Care Story Editor Name Role Phone Ayaka Salgado MD Primary Care Provider [phone] Reason for Visit * Reason Onset Date Comments Nurse Triage 09/22/2023 Encounter Details Date Type Department Care Team ([facility] st Contact Info) Description 09/22/2023 Telephone [facility] MEDICINE 230 [place], [place] [id number] Ayaka Salgado MD 505 [facility] [place] [address] Nurse Triage Social History Tobacco Use Types Packs/Day Years [...] encounter Miscellaneous Notes * Telephone Encounter - Steffi Palumbo RN - 09/22/2023 11:13 AM EST Called pt. He states he had a slight cold last week and was using his Mucinex pills that helped hiscold. Pt ran out of pills and does not have cold sx. At present. Pt. Looking for refill on Mucinex pills so that he has them on hand when needed. No cough, no SOB, no concerns at present. Pt. States Geez, I don't know why the girl made a big deal out of me just wanting a refill so that I have the Mucinex on hand for when I get another cold. Will forward request to PCP for refill on Mucinex for pt. * Telephone Encounter - Milka Ibanez - 09/22/2023 11:00 AM EST Symptom: Sinus Symptoms Outcome: Schedule an appointment to be seen within 24 hours Reason: pt is requesting a refill for Guaifenesin however play writer does not seen script on file, states pt prescribed years ago for sinus. The caller accepted this outcome Please contact at [phone] documented in this encounter Plan of Treatment Upcoming Encounters Date Type Department Care Team (Late st Contact Info) Description 11/24/2024 9:00 AM EDT Clinical Support [facility] MED & PEDS [address] [place] [address] Alana Hook, RACHELLE 505 [place] [address] documented as of this encounter Visit Diagnoses Not on filedocumented in this encounter Additional Health Concerns Assessment Noted Time PHQ-9 Depression Total Score: 7 08/29/20 22 10:26 AM EST documented as of this encounter Care Teams Story Editor Relationship Specialty Start Date End Date Ayaka Salgado MD 505 [place] [address] PCP - General Internal Medicine 09/15/18 documented as of this encounter
--- OUTSIDE RECORDS SUMMARY | 2024-10-05 11:11 | XMS_ITS | Encounter Summary ---
Author Organization [employer] Address 75 [facility] 7 [place] [address] Care Team Providers Care Band Teacher Name Role Phone Ayaka Salgado MD Primary Care Provider [phone] Reason for Visit * Reason Onset Date Comments Med Refill 03/29/2024 Encounter Details Date Type Department Care Team ([facility] st Contact Info) Description 03/29/2024 Telephone [facility] MEDICINE [address] [place] [address] Ayaka Salgdao MD 505 [facility] [place] [address] Med Refill Social History Tobacco Use Types [...] * Telephone Encounter - Milka Ibanez - 03/29/2024 8:09 AM EDT Tc from pt requesting a refill for zolpidem (Ambien) 10 MG tablet documented in this encounter Plan of Treatment Upcoming Encounters Date Type Department Care Team ([facility] st Contact Info) Description 11/24/2024 9:00 AM EDT Clinical Support [facility] MED & PEDS [address] [place] [address] Alana Hook RN 505 [place] [address] documented as of this encounter Visit Diagnoses Not on filedocumented in this encounter Additional Health Concerns Assessment Noted Time PHQ-9 Depression Total Score: 7 08/29/20 22 10:26 AM EST documented as of this encounter Care Teams Band Teacher Relationship Specialty Start Date End Date Ayaka Salgado MD 505 [place] [address] PCP - General Internal Medicine 09/15/18 documented as of this encounter
--- OUTSIDE RECORDS SUMMARY | 2024-10-05 11:11 | XMS_ITS | Encounter Summary ---
Author Organization [employer] Address 75 [facility] 7 [place] [address] Care Team Providers Care Dairy Husbandman Name Role Phone Ayaka Salgado MD Primary Care Provider [phone] Reason for Visit * Reason Onset Date Comments Med Refill 10/30/2022 Encounter Details Date Type Department Care Team ([facility] st Contact Info) Description 10/30/2022 Telephone [facility] MEDICINE [address] [place] [address] Ayaka Salgado MD 505 [facility] [place] [address] Med Refill Social History Tobacco Use Types [...] In the last 10 days, have sean u been in contact with someone who was confirmed or suspected to have Coronavirus/COVID-19? No / Unsure 10/10/2022 8:37 AM EST documented as of this encounter Miscellaneous Notes * Telephone Encounter - Milka Nelsonjia - 10/30/2022 9:17 AM EST Tc from pt requesting a med refill on Oxycodone 5 mg documented in this encounter Plan of Treatment Upcoming Encounters Date Type Department Care Team (Late st Contact Info) Description 11/24/2024 9:00 AM EDT Clinical Support [facility] CHC MED & PEDS 505 [place] [address] Alana Hook, RACHELLE 505 [place] [address] documented as of this encounter Visit Diagnoses Not on filedocumented in this encounter Additional Health Concerns Assessment Noted Time PHQ-9 Depression Total Score: 7 08/29/20 22 10:26 AM EST documented as of this encounter Care Teams Dairy Husbandman Relationship Specialty Start Date End Date Ayaka Salgado MD [address] [place] [address] PCP - General Internal Medicine 09/15/18 documented as of this encounter
--- OUTSIDE RECORDS SUMMARY | 2024-10-05 11:11 | XMS_ITS | Encounter Summary ---
Author Organization [email or web address] Address 75 [facility] 7 [place] [address] Care Team Providers Care Supervisor Boatbuilders Wood Name Role Phone Ayaka Salgado MD Primary Care Provider [phone] Reason for Visit * Reason Onset Date Comments Med Refill 12/01/2023 Encounter Details Date Type Department Care Team ([facility] st Contact Info) Description 12/01/2023 Telephone [facility] MEDICINE [address] [place] [address] Ayaka Salgado MD 505 [facility] [place] [address] Med Refill Social History Tobacco Use Types [...] encounter Miscellaneous Notes * Telephone Encounter - Sam Noel - 12/01/2023 8:46 AM EDT TC from pt requesting medication refill. Medications needing refill : zolpidem (Ambien) 10 MG tablet To be sent to: [id number] - [place] - [address] [facility] documented in this encounter Plan of Treatment Upcoming Encounters Date Type Department Care Team ([facility] st Contact Info) Description 11/24/2024 9:00 AM EDT Clinical Support [facility] MED & PEDS 505 [place] [address] Alana Hook RN 505 [facility] [place] [address] documented as of this encounter Visit Diagnoses Not on filedocumented in this encounter Additional Health Concerns Assessment Noted Time PHQ-9 Depression Total Score: 7 08/29/20 22 10:26 AM EST documented as of this encounter Care Teams Supervisor Boatbuilders Wood Relationship Specialty Start Date End Date Ayaka Salgado MD 505 [facility] [place] [address] PCP - General Internal Medicine 09/15/18 documented as of this encounter
--- OUTSIDE RECORDS SUMMARY | 2024-10-05 11:11 | XMS_ITS | Encounter Summary ---
Author Organization [employer] Address [address] [place] [address] 7 [place] [address] Care Team Providers Care Chopped Strand Operator Name Role Phone Ayaka Salgado MD Primary Care Provider [phone] Reason for Visit * Reason Comments Med Refill Encounter Details Date Type Department Care Team ([facility] Contact Info) Description 02/24/2023 Refill [facility] CHC MED & PEDS [address] [place] [address] Ayaka Salgado MD 505 [place] [address] Social History Tobacco Use Types Packs/Day Years [...] Recorded In the last 10 days, have yo u been in contact with someone who was confirmed or suspected to have Coronavirus/COVID-19? No / Unsure 02/24/2023 10:37 AM EDT documented as of this encounter Plan of Treatment Upcoming Encounters Date Type Department Care Team ([facility] st Contact Info) Description 11/24/2024 9:00 AM EDT Clinical Support [facility] MED & PEDS [address] [place] [address] Alana Hook, RACHELLE 505 [place] [address] documented as of this encounter Visit Diagnoses Not on filedocumented in this encounter Additional Health Concerns Assessment Noted Time PHQ-9 Depression Total Score: 7 08/29/20 22 10:26 AM EST documented as of this encounter Care Teams Chopped Strand Operator Relationship Specialty Start Date End Date Ayaka Salgado MD 505 [place] [address] PCP - General Internal Medicine 09/15/18 documented as of this encounter
--- OUTSIDE RECORDS SUMMARY | 2024-10-05 11:11 | XMS_ITS | Encounter Summary ---
Author Organization [employer] Address 75 [facility] 7 [place] [address] Care Team Providers Care E Commerce Manager Name Role Phone Ayaka aSlgado MD Primary Care Provider [phone] Reason for Visit * Reason Onset Date Comments Med Refill 07/28/2023 Encounter Details Date Type Department Care Team ([facility] Contact Info) Description 07/28/2023 Telephone [facility] CHC MED & PEDS 505 [place] [address] Ayaka Salgado MD 505 [place] [address] Med Refill Social History Tobacco Use Types [...] encounter Miscellaneous Notes * Telephone Encounter - Abiel Mills - 07/28/2023 8:34 AM EST Tc from pt requesting med refill on oxyCODONE-acetaminophen (Percocet) 5-325 MG tablet Please sent to [id number] - [place] - [address] [facility] documented in this encounter Plan of Treatment Upcoming Encounters Date Type Department Care Team ([facility] st Contact Info) Description 11/24/2024 9:00 AM EDT Clinical Support [facility] MED & PEDS 505 [facility] [place] [address] Alana Hook RN 505 [place] [address] documented as of this encounter Visit Diagnoses Not on filedocumented in this encounter Additional Health Concerns Assessment Noted Time PHQ-9 Depression Total Score: 7 08/29/20 22 10:26 AM EST documented as of this encounter Care Teams E Commerce Manager Relationship Specialty Start Date End Date Ayaka Salgado MD 505 [facility] [place] [address] PCP - General Internal Medicine 09/15/18 documented as of this encounter
--- OUTSIDE RECORDS SUMMARY | 2024-10-05 11:11 | XMS_ITS | Encounter Summary ---
Author Organization [employer] Address 75 [facility] 7 [place] [address] Care Team Providers Care Area Operations Director Name Role Phone Ayaka Salgado MD Primary Care Provider [phone] Reason for Visit * Reason Onset Date Comments Medication Question 07/30/2023 Encounter Details Date Type Department Care Team ([facility] st Contact Info) Description 07/30/2023 Telephone [facility] MEDICINE [address] [place] [address] Ayaka Salgado MD 505 [facility] [place] [address] Medication Question Social History Tobacco Use Types [...] encounter Miscellaneous Notes * Telephone Encounter - Zoey Penaloza LPN - 08/01/2023 10:06 AM EST Message below noted . Program Manager called pt twice to inform no answer lvm * Telephone Encounter - Zoey Penaloza LPN - 07/30/2023 11:09 AM EST Please review message below * Telephone Encounter - Milka Ibanez - 07/30/2023 10:22 AM EST Tc from pt stating they were unable to receive script for Ambien 10 mg , Advised script was sent on07/28/23 financial underwriter contacted pharmacy and spoke to pharmacist stated PCP will have to call pharmacy togive verbal order to authorize medication due to pt leaving on vacation and pt is not due until 08/04/23 Please contact at [phone] documented in this encounter Plan of Treatment Upcoming Encounters Date Type Department Care Team (Late st Contact Info) Description 11/24/2024 9:00 AM EDT Clinical Support [facility] MED & PEDS 505 [place] [address] Alana Hook, RACHELLE 505 [place] [address] documented as of this encounter Visit Diagnoses Diagnosis Folliculitis Other specified disease of hair and hair follicles documented in this encounter Additional Health Concerns Assessment Noted Time PHQ-9 Depression Total Score: 7 08/29/20 22 10:26 AM EST documented as of this encounter Care Teams Area Operations Director Relationship Specialty Start Date End Date Ayaka Salgado MD 505 [place] [address] PCP - General Internal Medicine 09/15/18 documented as of this encounter
--- OUTSIDE RECORDS SUMMARY | 2024-10-05 11:11 | XMS_ITS | Encounter Summary ---
Author Organization [employer] Address [address] [facility] 7 [place] [address] Care Team Providers Care Risk Control Field Representative Name Role Phone Ayaka Salgado MD Primary Care Provider [phone] Reason for Visit * Reason Onset Date Comments FYI 04/30/2023 Encounter Details Date Type Department Care Team ([facility] st Contact Info) Description 04/30/2023 Telephone [facility] MEDICINE [address] [place] [address] Ayaka Salgado MD 505 [facility] [place] [address] FYI Social History Tobacco Use Types Packs/Day Years [...] encounter Miscellaneous Notes * Telephone Encounter - Bonifacio Frederick RN - 04/30/2023 9:59 AM EDT Will forward below to PCP to inform. * Telephone Encounter - Milka Ibanez - 04/30/2023 9:45 AM EDT Tc from pt stating he advised [facility] pharmacy to cancel out script for clonidine 0.3 mg due to conditioning room worker @ [facility] decreasing script to 0.2 mg. Advised will leave message as a FYI. Please contact at [phone] documented in this encounter Plan of Treatment Upcoming Encounters Date Type Department Care Team ([facility] st Contact Info) Description 11/24/2024 9:00 AM EDT Clinical Support [facility] MED & PEDS 505 [place] [address] Alana Hook RN 505 [place] [address] documented as of this encounter Visit Diagnoses Not on filedocumented in this encounter Additional Health Concerns Assessment Noted Time PHQ-9 Depression Total Score: 7 08/29/20 22 10:26 AM EST documented as of this encounter Care Teams Risk Control Field Representative Relationship Specialty Start Date End Date Ayaka Salgado MD 505 [place] [address] PCP - General Internal Medicine 09/15/18 documented as of this encounter
--- OUTSIDE RECORDS SUMMARY | 2024-10-05 11:11 | XMS_ITS | Encounter Summary ---
Author Organization [employer] Address [address] [facility] 7t [place] [address] Care Team Providers Care Textile Screen Printer Name Role Phone Ayaka Salgado MD Primary Care Provider [phone] Encounter Details Date Type Department Care Team ([facility] st Contact Info) Description 09/22/2023 Orders Only [facility] MED & PEDS 505 [place] [address] Ayaka Salgado MD 505 [place] [address] Simple chronic bronchitis (CMS/HCC) (Primary Dx) Social [...] Description 11/24/2024 9:00 AM EDT Clinical Support [facility] MED & PEDS 505 [place] [address] Alana Hook, RACHELLE 505 [place] [address] documented as of this encounter Visit Diagnoses Diagnosis Simple chronic bronchitis (CMS/HCC)- Primary Simple chronic bronchitis documented in this encounter Additional Health Concerns Assessment Noted Time PHQ-9 Depression Total Score: 7 08/29/20 22 10:26 AM EST documented as of this encounter Care Teams Textile Screen Printer Relationship Specialty Start Date End Date Ayaka Salgado MD [address] [place] [address] PCP - General Internal Medicine 09/15/18 documented as of this encounter
--- OUTSIDE RECORDS SUMMARY | 2024-10-05 11:11 | XMS_ITS | Encounter Summary ---
Author Organization [employer] Address [address] [place] [address] 7t [place] [address] Care Team Providers Care Flight Attendant/Inflight Manager Name Role Phone Ayaka Salgado MD Primary Care Provider [phone] Encounter Details Date Type Department Care Team (Late st Contact Info) Description 01/23/2023 Abstract [facility] [address] [place] [address] Ayaka Salgado MD 505 [place], [place] [id number] Social History Tobacco Use Types Packs/Day Years [...] suspected to have Coronavirus/COVID-19? No / Unsure 01/22/2023 8:45 AM EDT documented as of this encounter Plan of Treatment Upcoming Encounters Date Type Department Care Team (Late st Contact Info) Description 11/24/2024 9:00 AM EDT Clinical Support [facility] MED & PEDS 505 [place] [address] Alana Hook, RACHELLE 505 [place] [address] documented as of this encounter Visit Diagnoses Not on filedocumented in this encounter Additional Health Concerns Assessment Noted Time PHQ-9 Depression Total Score: 7 08/29/20 22 10:26 AM EST documented as of this encounter Care Teams Flight Attendant/Inflight Manager Relationship Specialty Start Date End Date Ayaka Salgado MD 505 [place] [address] PCP - General Internal Medicine 09/15/18 documented as of this encounter
--- OUTSIDE RECORDS SUMMARY | 2024-10-05 11:11 | XMS_ITS | Encounter Summary ---
Author Organization [employer] Address [address] [place] [address] 7 [place] [address] Care Team Providers Care Clamshell Engineer Name Role Phone Ayaka Salgado MD Primary Care Provider [phone] Reason for Visit * Reason Comments Med Refill Encounter Details Date Type Department Care Team ([facility] Contact Info) Description 07/28/2023 Refill [facility] MED & PEDS [address] [place] [address] Ayaka Salgado MD 505 [place] [address] Social History Tobacco Use Types Packs/Day Years [...] [facility] 505 [place] [address] Alana Hook, RACHELLE 505 [place] [address] documented as of this encounter Visit Diagnoses Not on filedocumented in this encounter Additional Health Concerns Assessment Noted Time PHQ-9 Depression Total Score: 7 08/29/20 22 10:26 AM EST documented as of this encounter Care Teams Clamshell Engineer Relationship Specialty Start Date End Date Ayaka Salgado MD 505 [place] [address] PCP - General Internal Medicine 09/15/18 documented as of this encounter
--- OUTSIDE RECORDS SUMMARY | 2024-10-05 11:11 | XMS_ITS | Encounter Summary ---
Author Organization [employer] Address [address] [place] [address] 7 [place] [address] Care Team Providers Care Manager Gyn Name Role Phone Ayaka Salgado MD Primary Care Provider [phone] Reason for Visit * Reason Comments Med Refill Encounter Details Date Type Department Care Team ([facility] st Contact Info) Description 01/06/2023 Refill [facility] MED & PEDS 505 [place] [address] Ayaka Salgado MD 505 [place] [address] Primary osteoarthritis involving multiple joints Social History [...] suspected to have Coronavirus/COVID-19? No / Unsure 12/20/2022 9:17 AM EDT documented as of this encounter Plan of Treatment Upcoming Encounters Date Type Department Care Team (Late st Contact Info) Description 11/24/2024 9:00 AM EDT Clinical Support [facility] MED & PEDS 505 [place] [address] Alana Hook, RACHELLE 505 [place] [address] documented as of this encounter Visit Diagnoses Diagnosis Primary osteoarthritis involving multiple joints documented in this encounter Additional Health Concerns Assessment Noted Time PHQ-9 Depression Total Score: 7 08/29/20 22 10:26 AM EST documented as of this encounter Care Teams Manager Gyn Relationship Specialty Start Date End Date Ayaka Salgado MD 505 [place] [address] PCP - General Internal Medicine 09/15/18 documented as of this encounter
--- OUTSIDE RECORDS SUMMARY | 2024-10-05 11:11 | XMS_ITS | Encounter Summary ---
Author Organization [email or web address] Address [address] [place] [address] 7 [place] [address] Care Team Providers Care Insole Rounder Name Role Phone Ayaka Salgado MD Primary Care Provider [phone] Reason for Visit * Reason Onset Date Comments Med Refill 12/12/2022 Encounter Details Date Type Department Care Team ([facility] st Contact Info) Description 12/12/2022 Telephone [facility] MED & PEDS 505 [place] [address] Ayaka Salgado MD 505 [place] [address] Med Refill Social History Tobacco Use Types [...] Telephone Encounter - Abiel Mills - 12/12/2022 9:28 AM EDT Tc from pt requesting med refill on oxyCODONE-acetaminophen (Percocet) 5-325 MG tablet Please sent to [id number] - [place] - [address] [facility] documented in this encounter Plan of Treatment Upcoming Encounters Date Type Department Care Team (Late st Contact Info) Description 11/24/2024 9:00 AM EDT Clinical Support [facility] MED & PEDS 505 [place] [address] Alana Hook, RN 505 [place] [address] documented as of this encounter Visit Diagnoses Not on filedocumented in this encounter Additional Health Concerns Assessment Noted Time PHQ-9 Depression Total Score: 7 08/29/20 22 10:26 AM EST documented as of this encounter Care Teams Insole Rounder Relationship Specialty Start Date End Date Ayaka Salgado MD 505 [place] [address] PCP - General Internal Medicine 09/15/18 documented as of this encounter
--- OUTSIDE RECORDS SUMMARY | 2024-10-05 11:11 | XMS_ITS | Encounter Summary ---
Author Organization [employer] Address [address] [place] [address] 7t [place] [address] Care Team Providers Care Manager Business Intelligence Name Role Phone Ayaka Salgado MD Primary Care Provider [phone] Encounter Details Date Type Department Care Team (Late st Contact Info) Description 02/19/2023 Abstract [facility] [address] [place] [address] Ayaka Salgado MD 505 [place], [place] [id number] Social History Tobacco Use Types Packs/Day Years [...] suspected to have Coronavirus/COVID-19? No / Unsure 02/20/2023 8:47 AM EDT documented as of this encounter Plan of Treatment Upcoming Encounters Date Type Department Care Team (Late st Contact Info) Description 11/24/2024 9:00 AM EDT Clinical Support [facility] MED & PEDS 505 [place] [address] Alana Hook, RACHELLE 505 [place] [address] documented as of this encounter Visit Diagnoses Not on filedocumented in this encounter Additional Health Concerns Assessment Noted Time PHQ-9 Depression Total Score: 7 08/29/20 22 10:26 AM EST documented as of this encounter Care Teams Manager Business Intelligence Relationship Specialty Start Date End Date Ayaka Salgado MD 505 [place] [address] PCP - General Internal Medicine 09/15/18 documented as of this encounter
--- OUTSIDE RECORDS SUMMARY | 2024-10-05 11:11 | XMS_ITS | Encounter Summary ---
Author Organization [employer] Address [address] [place] [address] 7 [place] [address] Care Team Providers Care Physician Office Rep Name Role Phone Ayaka Salgado MD Primary Care Provider [phone] Reason for Visit * Reason Onset Date Comments Med Refill 12/12/2022 Encounter Details Date Type Department Care Team ([facility] st Contact Info) Description 12/12/2022 Telephone [facility] MED & PEDS [address] [place] [address] Ayaka Salgado MD 505 [place] [address] Med Refill Social History Tobacco Use Types [...] Telephone Encounter - Abiel Mills - 12/12/2022 9:30 AM EDT Tc from requesting med refill on amLODIPine (Norvasc) 5 MG tablet Please sent to [id number] - [place] - [address] [facility] documented in this encounter Plan of Treatment Upcoming Encounters Date Type Department Care Team ([facility] st Contact Info) Description 11/24/2024 9:00 AM EDT Clinical Support [facility] MED & PEDS [address] [place] [address] Alana Hook, RN [address] [place] [address] documented as of this encounter Visit Diagnoses Not on filedocumented in this encounter Additional Health Concerns Assessment Noted Time PHQ-9 Depression Total Score: 7 08/29/20 22 10:26 AM EST documented as of this encounter Care Teams Physician Office Rep Relationship Specialty Start Date End Date Ayaka Salgado MD 505 [place] [address] PCP - General Internal Medicine 09/15/18 documented as of this encounter
--- OUTSIDE RECORDS SUMMARY | 2024-10-05 11:11 | XMS_ITS | Encounter Summary ---
Author Organization [employer] Address [address] [facility] 7 [place] [address] Care Team Providers Care Perpetual Inventory Clerk Name Role Phone Ayaka Salgado MD Primary Care Provider [phone] Reason for Visit * Reason Onset Date Comments Med Refill 03/29/2024 Encounter Details Date Type Department Care Team ([facility] st Contact Info) Description 03/29/[address] [facility] MEDICINE [address] [place] [address] Ayaka Salgado MD 505 [facility] [place] [address] Med Refill Social History Tobacco Use Types [...] Telephone Encounter - Milka Ibanez - 03/29/2024 8:10 AM EDT Tc from pt requesting a refill for oxyCODONE-acetaminophen (Percocet) 5-325 MG tablet documented in this encounter Plan of Treatment Upcoming Encounters Date Type Department Care Team (Late st Contact Info) Description 11/24/2024 9:00 AM EDT Clinical Support [facility] MED & PEDS 505 [place] [address] Alana Hook RN 505 [place] [address] documented as of this encounter Visit Diagnoses Not on filedocumented in this encounter Additional Health Concerns Assessment Noted Time PHQ-9 Depression Total Score: 7 08/29/20 22 10:26 AM EST documented as of this encounter Care Teams Perpetual Inventory Clerk Relationship Specialty Start Date End Date Ayaka Salgado MD [address] [place] [address] PCP - General Internal Medicine 09/15/18 documented as of this encounter
--- OUTSIDE RECORDS SUMMARY | 2024-10-05 11:11 | XMS_ITS | Encounter Summary ---
Author Organization [employer] Address [address] [facility] 7 [place] [address] Care Team Providers Care Boxing Machine Operator Name Role Phone Ayaka Salgado MD Primary Care Provider [phone] Reason for Visit * Reason Onset Date Comments Med Refill 11/10/2023 Encounter Details Date Type Department Care Team (Late st Contact Info) Description 11/10/2023 Refill [facility] MEDICINE [address] [place] [address] Ayaka Salgado MD 505 [facility] [place] [phone] Arthropathy (Primary Dx) Social History Tobacco Use [...] * Telephone Encounter - Milka Ibanez - 11/10/2023 9:00 AM EST Tc from pt requesting a refill for oxyCODONE-acetaminophen (Percocet) 5-325 MG tablet documented in this encounter Plan of Treatment Upcoming Encounters Date Type Department Care Team (Late st Contact Info) Description 11/24/2024 9:00 AM EDT Clinical Support [facility] MED & PEDS [address] [place] [address] Alana Hook RN 505 [place] [address] documented as of this encounter Visit Diagnoses Diagnosis Arthropathy- Primary Unspecified arthropathy, site unspecified documented in this encounter Additional Health Concerns Assessment Noted Time PHQ-9 Depression Total Score: 7 08/29/20 22 10:26 AM EST documented as of this encounter Care Teams Boxing Machine Operator Relationship Specialty Start Date End Date Ayaka Salgado MD 505 [place] [address] PCP - General Internal Medicine 09/15/18 documented as of this encounter
--- OUTSIDE RECORDS SUMMARY | 2024-10-05 11:11 | XMS_ITS | Encounter Summary ---
Author Organization [employer] Address [address] [facility] 7t [place] [address] Care Team Providers Care Wood Preserving Plant Laborer Name Role Phone Ayaka Salgado MD Primary Care Provider [phone] Reason for Visit * Reason Comments Med Refill Encounter Details Date Type Department Care Team (Late st Contact Info) Description 03/02/2024 Refill [facility] MEDICINE [address] [place] [address] Ayaka Salgado MD [address] [facility] [address] [place] [address] Primary osteoarthritis involving multiple joints Social History [...] 11/24/2024 9:00 AM EDT Clinical Support [facility] MED & PEDS 505 [place] [address] Alana Hook RN 505 [place] [address] documented as of this encounter Visit Diagnoses Diagnosis Primary osteoarthritis involving multiple joints documented in this encounter Additional Health Concerns Assessment Noted Time PHQ-9 Depression Total Score: 7 08/29/20 22 10:26 AM EST documented as of this encounter Care Teams Wood Preserving Plant Laborer Relationship Specialty Start Date End Date Ayaka Salgado MD 505 [place] [address] PCP - General Internal Medicine 09/15/18 documented as of this encounter
--- OUTSIDE RECORDS SUMMARY | 2024-10-05 11:12 | XMS_ITS | Encounter Summary ---
Author Organization [facility] Address [address] [place] [address] Care Team Providers Care Lead Systems Analyst Name Role Phone Ayaka Salgado Primary Care Provider Encounter Details Date Type Department Care Team (Late st Contact Info) Description 09/17/2024 Telephone [facility] Transplant Department [address] [place] [address] Shima Springer RN [address] [place] [address] Social History Tobacco Use Types Packs/Day Years Used Date Smoking Tobacco: Former Cigarettes Comments:Quit 08/22/2022 Alcohol Use Standard Drinks/Week Comments Yes 0 (1 standard drink = 0.6 oz pur e alcohol) socially Sex and Gender Information Value Date Recorded Sex Assigned at Male 07/29/2024 8:57 AM EST Legal Sex Male 10:21 AM EDT Gender Identity Not on file Sexual Orientation Not on file documented as of this encounter Miscellaneous Notes * Telephone Encounter - Micah Pritchard - 09/17/2024 12:41 PM EST Spoke with Lilly at [facility] [phone]. She explain to me the oral contrast pt need to be in the facility 2 hrs prior to his appointment. Called patient to explaining he need to be at [facility] at 6:45 am. Pt was not happy and I provide him [facility] phone number to call if he have any question. documented in this encounter Plan of Treatment Not on file documented as of this encounter Visit Diagnoses Not on filedocumented in this encounter Care Teams Lead Systems Analyst Relationship Specialty Start Date End Date Ayaka Salgado 505 [place] [address] PCP - General Internal Medicine 07/29/24 documented as of this encounter
--- OUTSIDE RECORDS SUMMARY | 2024-10-05 11:12 | XMS_ITS | Clinical Summary ---
Author Organization [facility] Address [address] [place] [address] Care Team Providers Care Vp Product Name Role Phone DamianAyaka Primary Care Provider Allergies Active Allergy Reactions Criticality Noted Date Comments Apixaban Nosebleed 07/22/2024 Aspirin Nosebleed 07/22/2024 Clopidogrel Nosebleed 07/22/2024 Metformin Sugar, low 07/22/2024 Warfarin Nosebleed 07/22/2024 Medications albuterol 2.5 mg/3 mL (0.083%) nebulizer solution SMARTSI Milliliter(s) Via Nebulizer Every 4 Hours PRN 4 Active Ventolin HFA 90 mcg/actuation inhaler SMARTSI Puff(s) By Mouth Every 6 Hours PRN 4 Active bumetanide (BUMEX) 1 mg tablet 4 Active calcitrioL (ROCALTROL) 0.25 mcg capsule 4 Active cinacalcet (SENSIPAR) 30 mg tablet SMARTSI Tablet(s) By Mouth Daily 4 Active cloNIDine (CATAPRES) 0.2 mg tablet SMARTSI Tablet(s) By Mouth 3 Times Daily 4 Active gabapentin (NEURONTIN) 100 mg capsule 4 Active glimepiride (AMARYL) 1 mg tablet 4 Active hydrALAZINE (APRESOLINE) 100 mg tablet SMARTSI Tablet(s) By Mouth 3 Times Daily 4 Active labetaloL (NORMODYNE) 200 mg tablet SMARTSI Tablet(s) By Mouth Every 12 Hours 4 Active losartan (COZAAR) 100 mg tablet SMARTSI Tablet(s) By Mouth Daily 4 Active oxyCODONE-aceta minophen (PERCOCET) 5-325 mg tablet SMARTSI Tablet(s) By Mouth Every 8 Hours PRN 4 Active simvastatin (ZOCOR) 20 mg tablet 4 Active blood glucose diagnostic test strip USE TO TEST BLOOD SUGAR TWICE A DAY 4 Active OneTouch Verio test strips USE TO TEST BLOOD SUGAR TWICE A DAY 4 Active OneTouch Verio Reflect Meter misc USE TO TEST BLOOD SUGAR TWICE A DAY 4 Active budesonide-form oteroL (SYMBICORT) 160-4.5 mcg inhaler Inhale 2 puffs by mouth 2 times daily. 4 Active SITagliptin phosphate (JANUVIA) 100 mg tablet Take 25 mg by mouth once a day. Active Vitamin D3 25 mcg (1,000 unit) capsule Take 1,000 Units by mouth. Every other day Active zolpidem (AMBIEN) 10 mg tablet Take 10 mg by mouth nightly as needed for sleep. Active tiotropium (SPIRIVA HANDIHALER) 18 mcg inhalation capsule Inhale 1 capsule via handihaler once a day. Active umeclidinium-vi lanteroL (Anoro Ellipta) 62.5-25 mcg/actuation blister with device Inhale 62.5 puffs by mouth once a day. Active Active Problems Problem Noted Date Diagnosed Date Stage 4 chronic kidney disease 07/22/2024 Encounters Date Type Department Care Team Description 09/17/2024 Telephone [facility] Transplant Department [address] [place] [address] [phone] Shima Springer RN 09/13/2024 Telephone [facility] Transplant Department [address] [place] [address] [phone] Shima Springer RN 08/27/2024 Telephone [facility] Transplant Department [address] [place] [address] [phone] Shima Springer RN 07/29/2024 12:50 PM EST Lab [facility] [place] Lab Draw Site [address] [place] [address] Pre-transplant evaluation for end stage renal disease; Chronic kidney disease, stage IV (severe) ([facility]); Weak urinary stream; Controlled type 2 diabetes mellitus with diabetic nephropathy, with long-term current use of insulin ([facility]) 07/29/2024 11:00 AM EST Nutrition [facility] Renal Transplant [address] [place] [address] Pre-transplant evaluation for kidney transplant (Primary Dx) 07/29/2024 10:15 AM EST Office Visit [facility] Renal Transplant [address] [place] [address] Joey Duarte MD Pre-transplant evaluation for kidney transplant (Primary Dx); Pre-transplant evaluation for end stage renal disease; Stage 4 chronic kidney disease (HCC) 07/29/2024 9:30 AM EST Social Work [facility] Ren[facility] Transplant [address] [place] [address] Susan Babb LICSW 07/29/2024 8:15 AM EST Evaluation [facility] Renal Transplant [address] [place] [address] Shima Springer, RN Pre-transplant evaluation for end stage renal disease (Primary Dx) 07/29/2024 8:00 AM EST Office Visit [facility] Renal Transplant [address] [place] [address] Kristi Conklin RN Pre-transplant evaluation for kidney transplant (Primary Dx) 07/29/2024 Orders Only [facility] XRay [address] [place] [phone] Waqas Garnett MD 07/26/2024 Telephone [facility] Transplant Department [address] [place] [phone] Shima Springer, RN 07/22/2024 Orders Only [facility] Transplant Department [address] [place] [phone] Shima Springer RN Pre-transplant evaluation for end stage renal disease (Primary Dx); Chronic kidney disease, stage IV (severe) (HCC); Controlled type 2 diabetes mellitus with diabetic nephropathy, with long-term current use of insulin (HCC); Weak urinary stream from Last 3 Months Social History Tobacco Use Types Packs/Day Years Used Date Smoking Tobacco: Former Cigarettes Tobacco Cessation:Counseling Given: Not Answered Comments:Quit 08/22/2022 Alcohol Use Standard Drinks/Week Comments Yes 0 (1 standard drink = 0.6 oz pur e alcohol) socially Sex and Gender Information Value Date Recorded Sex Assigned at Male 07/29/2024 8:57 AM EST Legal Sex Male 10:21 AM EDT Gender Identity Not on file Sexual Orientation Not on file Last Filed Vital Signs Vital Sign Reading Time Taken Comments Blood Pressure 129/68 07/29/2024 9:09 AM EST Pulse 64 07/29/2024 9:09 AM EST Temperature 36.8 ??C (98.2 ??F) 07/29/2024 9 :09 AM EST Respiratory Rate 18 07/29/2024 9:09 AM EST Oxygen Saturation 97% 07/29/2024 9:0 9 AM EST Inhaled Oxygen Concentration - - Weight 103.6 kg (228 lb 6.3 oz) 07/29/2024 10:00 AM EST Height 170.2 cm (5' 7 ) 07/29/2024 10:0 0 AM EST Care Everywhere Body Mass Index 35.77 07/29/2024 10:00 AM EST Plan of Treatment Health Maintenance Due Date Last Done Comments 25 Hydroxy / Vitamin D 1957 Basic Metabolic Panel 1957 Cologuard 1957 Colon Cancer Screening 1957 Colonoscopy 1957 FOBT / Fit Test 1957 PTH 1957 Sigmoidoscopy 1957 Pneumococcal Vaccine: 65+ Years (1 of 2 - PCV) 12/09/1963 Ophthalmology Exam 12/09/1967 Urine Microalbumin 12/09/1967 DTaP,Tdap,and Td Vaccines (1 - Tdap) 09/16/2005 09/15/2005 CT Lung Cancer Screening (Baseline) 12/09/2007 Zoster Vaccines (1 of 2) 12/09/2007 RSV Vaccine (60+ years old a nd patients) (1 - Risk 60-74 years 1-dose series) 2017 Abdominal Aortic Aneurysm (AAA) Screening 2022 COVID-19 Vaccine (4 - 2023-2 5 season) 2024 08/03/2021, 11/03/2020, 10/06/2020 Influenza Vaccine (#1) 2024 Alcohol/Substance Use Screening 09/15/2024 Depression Screening and Follow-Up 09/15/2024 Health Care Proxy Review 09/15/2024 [facility] Annual Screening 09/15/2024 Hemoglobin A1C 01/26/2025 07/29/2024, 07/12/2024, 10/01/2023 Hemoglobin 07/29/2025 07/29/2024 Phosphorus 07/29/2025 07/29/2024 CKD: Referral to Nephrology Completed 07/29/2024 CKD: Referral to Nutrition Completed 07/29/2024 Hepatitis C Screening Completed 07/29/2024 Hepatitis B Vaccines Aged Out No long er eligible based on patient's age to complete this topic Procedures * Due to [place] state law, this organization might not be sharing negative HIV tests. Procedure Name Priority Date/Time Associated Diagnosis Comments ALBUMIN Routine 07/29/2024 12:57 PM EST Pre-transplant evaluation for end stage renal disease Chronic kidney disease, stage IV (severe) (HCC) ALT Routine 07/29/2024 12:57 PM EST Pre-transplant evaluation for end stage renal disease Chronic kidney disease, stage IV (severe) (HCC) AST Routine 07/29/2024 12:57 PM EST Pre-transplant evaluation for end stage renal disease Chronic kidney disease, stage IV (severe) (HCC) BILIRUBIN, DIRECT Routine 07/29/2024 12: 57 PM EST Pre-transplant evaluation for end stage renal disease Chronic kidney disease, stage IV (severe) (HCC) BILIRUBIN, TOTAL Routine 07/29/2024 12:5 7 PM EST Pre-transplant evaluation for end stage renal disease Chronic kidney disease, stage IV (severe) (HCC) BUN Routine 07/29/2024 12:57 PM EST Pre-transplant evaluation for end stage renal disease Chronic kidney disease, stage IV (severe) (HCC) CALCIUM Routine 07/29/2024 12:57 PM EST Pre-transplant evaluation for end stage renal disease Chronic kidney disease, stage IV (severe) (HCC) CBC AUTO DIFFERENTIAL Routine 07/29/2024 12:57 PM EST Pre-transplant evaluation for end stage renal disease Chronic kidney disease, stage IV (severe) (HCC) CREATININE Routine 07/29/2024 12:57 PM EST Pre-transplant evaluation for end stage renal disease Chronic kidney disease, stage IV (severe) (HCC) CYTOMEGALOVIRUS ANTIBODY, IGG Routine 07/29/2024 12:57 PM EST Pre-transplant evaluation for end stage renal disease Chronic kidney disease, stage IV (severe) (HCC) JUNIOR-FINNEY VIRUS ANTIBODY PANEL Routine 07/29/2024 12:57 PM EST Pre-transplant evaluation for end stage renal disease Chronic kidney disease, stage IV (severe) (HCC) HEPATITIS A ANTIBODY, TOTAL Routine 07/29/2024 12:57 PM EST Pre-transplant evaluation for end stage renal disease Chronic kidney disease, stage IV (severe) (HCC) HEPATITIS B CORE ANTIBODY, TOTAL Routine 07/29/2024 12:57 PM EST Pre-transplant evaluation for end stage renal disease Chronic kidney disease, stage IV (severe) (HCC) HEPATITIS B SURFACE ANTIGEN W/CONFIRMATION Routine 07/29/2024 12:57 PM EST Pre-transplant evaluation for end stage renal disease Chronic kidney disease, stage IV (severe) (HCC) HEPATITIS B SURFACE ANTIBODY Routine 07/29/2024 12:57 PM EST Pre-transplant evaluation for end stage renal disease Chronic kidney disease, stage IV (severe) (HCC) HEPATITIS C ANTIBODY W/REFLEX TO HCV RNA, QUANTITATIVE PCR Routine 07/29/2024 12:57 PM EST Pre-transplant evaluation for end stage renal disease Chronic kidney disease, stage IV (severe) (HCC) HERPES SIMPLEX VIRUS 1&2 ANTIBODY, IGG Routine 07/29/2024 12:57 PM EST Pre-transplant evaluation for end stage renal disease Chronic kidney disease, stage IV (severe) (HCC) MMR PANEL (MEASLES, MUMPS, RUBELLA), IGG Routine 07/29/2024 12:57 PM EST Pre-transplant evaluation for end stage renal disease Chronic kidney disease, stage IV (severe) (HCC) PHOSPHORUS Routine 07/29/2024 12:57 PM EST Pre-transplant evaluation for end stage renal disease Chronic kidney disease, stage IV (severe) (HCC) PROTIME-INR Routine 07/29/2024 12:57 PM EST Pre-transplant evaluation for end stage renal disease Chronic kidney disease, stage IV (severe) (HCC) PTT Routine 07/29/2024 12:57 PM EST Pre-transplant evaluation for end stage renal disease Chronic kidney disease, stage IV (severe) (HCC) QUANTIFERON-TB GOLD PLUS, 1 [id number] Routine 07/29/2024 12:57 PM EST Pre-transplant evaluation for end stage renal disease Chronic kidney disease, stage IV (severe) (HCC) RPR (DIAGNOSIS) W/REFLEX TO TITER & TPPA [id number] Routine 07/29/2024 12:57 PM EST Pre-transplant evaluation for end stage renal disease Chronic kidney disease, stage IV (severe) (HCC) VARICELLA ZOSTER ANTIBODY, IGG Routine 07/29/2024 12:57 PM EST Pre-transplant evaluation for end stage renal disease Chronic kidney disease, stage IV (severe) (HCC) HLA TRANSPLANT WORK-UP (ALLELE LEVEL A/B/C/DRB1/QZG595/DQA1/ DQB1/DPA1/DPB1) Routine 07/29/2024 12:57 PM EST Pre-transplant evaluation for end stage renal disease Chronic kidney disease, stage IV (severe) (HCC) HLA ANTIBODY IDENTIFICATION WITH TREATMENT - CLASS I Routine 07/29/2024 12:57 PM EST Pre-transplant evaluation for end stage renal disease Chronic kidney disease, stage IV (severe) (HCC) HLA ANTIBODY IDENTIFICATION WITH TREATMENT - CLASS II Routine 07/29/2024 12:57 PM EST Pre-transplant evaluation for end stage renal disease Chronic kidney disease, stage IV (severe) (HCC) HEMOGLOBIN A1C Routine 07/29/2024 12:57 PM EST Pre-transplant evaluation for end stage renal disease Chronic kidney disease, stage IV (severe) (HCC) Controlled type 2 diabetes mellitus with diabetic nephropathy, with long-term current use of insulin (HCC) PSA Routine 07/29/2024 12:57 PM EST Pre-transplant evaluation for end stage renal disease Chronic kidney disease, stage IV (severe) (HCC) Weak urinary stream ABO/RH BLOOD TYPE Routine 07/29/2024 12: 57 PM EST Pre-transplant evaluation for end stage renal disease Chronic kidney disease, stage IV (severe) (HCC) from Last 3 Months Results * Due to [place] state law, this organization might not be sharing negative HIV tests. * HLA Transplan Work-Up(Allele Level A/B/C/DRB1/XYX929/DQA1/DQB1/DPA1/DPB1) (07/29/2024 12:57 PM EST) Pathologist [facility] [place] Histocompatibility Laboratory Information See Below 08/05/2024 6:18 PM EST [facility] Comment: CAMERON: ??[id number] ?Director: ??Dina Centeno MD. [facility] PFI: ??[id number] UNOS: ??[id number] This test was developed and its performance characteristics determined by this laboratory. It has not been cleared or approved by the U.S. Food and Drug Administration. The FDA has determined that such clearance or approval is not necessary. This test is used for clinical purposes. It should not be regarded as investigational or for research. This laboratory is certified under the Clinical Laboratory Improvement Amendments of 1988 (CLIA-88) as qualified to perform high complexity clinical laboratory testing. DRB1-1 DR*08:01 08/05/2024 6:18 PM EST [facility] DRB1-2 DR*13:02 08/05/2024 6:18 PM EST [facility] DRB1-1 NMDP DATA NOT REPORTED 08/05/2024 6:18 PM EST [facility] DRB1-2 NMDP DATA NOT REPORTED 08/05/2024 6:18 PM EST [facility] Test Method NGS 08/05/2024 6:18 PM EST [facility] DQA1-1 DQA*01:02 08/05/2024 6:18 PM EST [facility] DQA1-2 DQA*04:01 08/05/2024 6:18 PM EST [facility] DQA1-1 NMDP DATA NOT REPORTED 08/05/2024 6:18 PM EST [facility] DQA1-2 NMDP DATA NOT REPORTED 08/05/2024 6:18 PM EST [facility] DQB1-1 DQB*04:02 08/05/2024 6:18 PM EST [facility] DQB1-2 DQB*06:04 08/05/2024 6:18 PM EST [facility] DQB1-1 NMDP DATA NOT REPORTED 08/05/2024 6:18 PM EST [facility] DQB1-2 NMDP DATA NOT REPORTED 08/05/2024 6:18 PM EST [facility] DPA1-1 DPA*01 08/05/2024 6:18 PM EST [facility] DPA1-2 DATA NOT REPORTED 08/05/2024 6:18 PM EST [facility] DPA1-1 NMDP DATA NOT REPORTED 08/05/2024 6:18 PM EST [facility] DPA1-2 NMDP DATA NOT REPORTED 08/05/2024 6:18 PM EST [facility] C*-1 C*04:01 08/05/2024 6:18 PM EST [facility] C*-2 C*07:01 08/05/2024 6:18 PM EST [facility] C*-1 NMDP DATA NOT REPORTED 08/05/2024 6:18 PM EST [facility] C*-2 NMDP DATA NOT REPORTED 08/05/2024 6:18 PM EST [facility] DPB1-1 DPB*04:01 08/05/2024 6:18 PM EST [facility] DPB1-2 DATA NOT REPORTED 08/05/2024 6:18 PM EST [facility] DPB1-1 NMDP DATA NOT REPORTED 08/05/2024 6:18 PM EST [facility] DPB1-2 NMDP DATA NOT REPORTED 08/05/2024 6:18 PM EST [facility] A*-1 A*02:01 08/05/2024 6:18 PM EST [facility] A*-2 A*03:01 08/05/2024 6:18 PM EST [facility] A*-1 NMDP DATA NOT REPORTED 08/05/2024 6:18 PM EST [facility] A*-2 NMDP DATA NOT REPORTED 08/05/2024 6:18 PM EST [facility] B*-1 B*18:01 08/05/2024 6:18 PM EST [facility] B*-2 B*35:03 08/05/2024 6:18 PM EST [facility] B*-1 NMDP DATA NOT REPORTED 08/05/2024 6:18 PM EST [facility] B*-2 NMDP DATA NOT REPORTED 08/05/2024 6:18 PM EST [facility] DRB3-1 3*03:01 08/05/2024 6:18 PM EST [facility] DRB3-2 DATA NOT REPORTED 08/05/2024 6:18 PM EST [facility] DRB3-1 NMDP DATA NOT REPORTED 08/05/2024 6:18 PM EST [facility] DRB3-2 NMDP DATA NOT REPORTED 08/05/2024 6:18 PM EST [facility] DRB4-1 DATA NOT REPORTED 08/05/2024 6:18 PM EST [facility] DRB4-2 DATA NOT REPORTED 08/05/2024 6:18 PM EST [facility] DRB4-1 NMDP DATA NOT REPORTED 08/05/2024 6:18 PM EST [facility] DRB4-2 NMDP DATA NOT REPORTED 08/05/2024 6:18 PM EST [facility] DRB5-1 DATA NOT REPORTED 08/05/2024 6:18 PM EST [facility] DRB5-2 DATA NOT REPORTED 08/05/2024 6:18 PM EST [facility] DRB5-1 NMDP DATA NOT REPORTED 08/05/2024 6:18 PM EST [facility] DRB5-2 NMDP DATA NOT REPORTED 08/05/2024 6:18 PM EST [facility] Blood Structure of peripheral vein / Unknown Venipuncture / Unknown 07/29/2024 12:57 PM EST 07/29/2024 1:14 PM EST Joey Duarte MD HLA LAB ORDERABLES Edited Result - Final [facility] [address] [facility] Rm: [phone] [place] [address], * (ABNORMAL) MMR Panel, IgG (07/29/2024 12:57 PM EST) Measles Antibody (IgG), Immune Status >300.00 AU/mL 07/30/2024 5:19 AM EST [employer] Comment: AU/mL ?Interpretation ----- ? <13.50 ? Not consistent with immunity 13.50-16.49 ?Equivocal >16.49 ? Consistent with immunity The presence of measles IgG suggests immunization or past or current infection with measles virus. For additional information, please refer to http://ElementsLocal.LogoGarden/faq/PCM509 (This link is being provided for informational/ educational purposes only.) Mumps Antibody (IgG), Immune Status 9.01(L) AU/mL 07/30/2024 5:19 AM EST [employer] Comment: AU/mL ? Interpretation ------- ? <9.00 ? Not consistent with immunity 9.00-10.99 ?Equivocal >10.99 ?Consistent with immunity The presence of mumps IgG antibody suggests immunization or past or current infection with mumps virus. Rubella Antibody (IgG), Immune Status 31.80 Index 07/30/2024 5:19 AM EST [employer] Comment: ?Index ?Interpretation ?----- ?<0.90 ?Not consistent with immunity ?0.90-0.99 ?Equivocal ?> or = 1.00 ?Consistent with immunity The presence of rubella IgG antibody suggests immunization or past or current infection with rubella virus. Blood Structure of peripheral vein / Unknown Venipuncture / Unknown 07/29/2024 12:57 PM EST 07/29/2024 1:32 PM EST [employer] [place] - 07/30/2024 5:19 AM EST [facility] Received Date: Joey Duarte MD LAB BLOOD ORDERABLES María howard Result Performing Organization Address City/State/[facility] [[email or web address]] Co de Phone Number [facility] [address] [facility] [address], [place] [address], [employer] [address] [facility] [address], [place] [address], * (ABNORMAL) Herpes Simplex Virus 1&2, IgG (07/29/2024 12:57 PM EST) HSV 1 IgG Type Specific Ab 42.70(H) index 07/30/2024 5:09 AM EST [employer] HSV 2 IgG Type Specific Ab <0.90 index 07/30/2024 5:09 AM EST [employer] Comment: ?Index ?Interpretation ?----- ?<0.90 ?Negative ?0.90-1.09 ?Equivocal ?>1.09 ?Positive This assay utilizes recombinant type-specific antigens to differentiate HSV-1 from HSV-2 infections. A positive result cannot distinguish between recent and past infection. If recent HSV infection is suspected but the results are negative or equivocal, the assay should be repeated in 4-6 weeks. The performance characteristics of the assay have not been established for pediatric populations, immunocompromised patients, or screening. For additional information, please refer to http://education.LogoGarden/faq/QFS535 (This link is being provided for informational/ educational purposes only.) ?? Blood Structure of peripheral vein / Unknown Venipuncture / Unknown 07/29/2024 12:57 PM EST 07/29/2024 1:14 PM EST [facility] - 07/30/2024 5:09 AM EST [facility] Received Date: Joey Duarte MD LAB BLOOD ORDERABLES María howard Result Performing Organization Address City/State/[facility] [[email or web address]] Co de Phone Number [facility] [address] [facility] [address], [place] [address], [employer] [facility] [address], [place] [address], * RPR (Diagnosis) w/Reflex to Titer & TPPA Confirm (07/29/2024 12:57 PM EST) RPR W/Refl Titer NON-REACT [place] NON-REACT [place] 07/30/2024 11:[address] [facility] Blood Structure of peripheral vein / Unknown Venipuncture / Unknown 07/29/2024 12:57 PM EST 07/29/2024 1:14 PM EST Narrative [facility] - 07/30/2024 11:39 AM EST [facility] Received Date: Joey Duarte MD LAB BLOOD ORDERABLES María l Result [facility] [address] [facility] [address], [place] [address], [address] [facility] [address] [facility] [address], [place] [address], * QuantiFERON-TB Gold Plus, 1 Tube (07/29/2024 12:57 PM EST) [facility] QuantiFERON-TB Gold Plus NEGATIVE NEGATIVE 07/31/2024 6:[address] [facility] Comment: Negative test result. M. tuberculosis complex infection unlikely. NIL 0.01 IU/mL 07/31/2024 6:[address] [facility] Mitogen-NIL 7.39 IU/mL 07/31/2024 6:01 AM EST [employer] [facility] TB1-NIL 0.01 IU/mL 07/31/2024 6:[address] [facility] TB2-NIL 0.01 IU/mL 07/31/2024 6:[address] [facility] Comment: The Nil tube value reflects the background interferon gamma immune response of the patient's blood sample. This value has been subtracted from the patient's displayed TB and Mitogen results. Lower than expected results with the Mitogen tube prevent false-negative Quantiferon readings by detecting a patient with a potential immune suppressive condition and/or suboptimal pre-analytical specimen handling. The TB1 Antigen tube is coated with the M. tuberculosis-specific antigens designed to elicit responses from TB antigen primed CD4+ helper T-lymphocytes. The TB2 Antigen tube is coated with the M. tuberculosis-specific antigens designed to elicit responses from TB antigen primed CD4+ helper and CD8+ cytotoxic T-lymphocytes. For additional information, please refer to https://education.DIY/faq/NVZ709 (This link is being provided for informational/ educational purposes only.) Blood Structure of peripheral vein / Unknown Venipuncture / Unknown 07/29/2024 12:57 PM EST 07/29/2024 1:11 PM EST Narrative [facility] - 07/31/2024 6:01 AM EST [facility] Received Date: Joey Duarte MD LAB BLOOD ORDERABLES María l Result [facility] [address] [facility] [address], [place] [address], [place] [phone] [employer] [facility] [address] [facility] [address], [place] [address], * (ABNORMAL) CBC Auto Differential (07/29/2024 12:57 PM EST) WBC 6.0 3.8 - 10.8 10*3/uL 07/29/2024 1:35 PM EST [facility] RBC 3.69(L) 4.20 - 5.80 10*6/uL 07/29/2024 1:35 PM EST [facility] Hemoglobin 9.7(L) 13.2 - 17.1 g/dL 07/29/2024 1:35 PM EST [facility] Hematocrit 31.5(L) 38.5 - 50.0 % 07/29/2024 1:35 PM EST [facility] MCV 85.4 80.0 - 100.0 fL 07/29/2024 1:35 PM EST [facility] MCH 26.3(L) 27.0 - 33.0 pg 07/29/2024 1:35 PM EST [facility] MCHC 30.8(L) 32.0 - 36.0 g/dL 07/29/2024 1:35 PM EST [facility] RDW 14.0 11.0 - 15.0 % 07/29/2024 1:35 PM EST [facility] Platelets 212 140 - 400 10*3/uL 07/29/2024 1:35 PM EST [facility] MPV 11.1 7.5 - 12.5 fL 07/29/2024 1:35 PM EST [facility] Neutrophil % 69.3 % 07/29/2024 1:35 PM EST [facility] Immature Grans % 0.2 0.0 - 0.9 % 07/29/2024 1:35 PM EST [facility] Lymphocyte % 15.6 % 07/29/2024 1:35 PM EST [facility] Monocyte % 7.1 % 07/29/2024 1:35 PM EST [facility] Eosinophil % 7.3 % 07/29/2024 1:35 PM EST [facility] Basophil % 0.5 % 07/29/2024 1:35 PM EST [facility] Neutrophil # 4.17 1.50 - 7.80 10*3/uL 07/29/2024 1:35 PM EST [facility] Immature Grans # <0.03 <=0.03 10*3/uL 07/29/2024 1:35 PM EST [facility] Lymphocyte # 0.90 0.85 - 3.90 10*3/uL 07/29/2024 1:35 PM EST [facility] Monocyte # 0.40 0.20 - 0.95 10*3/uL 07/29/2024 1:35 PM EST [facility] Eosinophil # 0.40 0.02 - 0.50 10*3/uL 07/29/2024 1:35 PM EST [facility] Basophil # <0.03 0.00 - 0.20 10*3/uL 07/29/2024 1:35 PM EST [facility] nRBC % 0.0 /100 WBCs 07/29/2024 1:35 PM EST [facility] nRBC # <0.01 <0.01 10*3/uL 07/29/2024 1:35 PM EST [facility] Blood Structure of peripheral vein / Unknown Venipuncture / Unknown 07/29/2024 12:57 PM EST 07/29/2024 1:29 PM EST us Joey Duarte MD LAB BLOOD ORDERABLES María howard Result [facility] [address] [place] [address], * (ABNORMAL) Junior-Finney Virus VCA Antibody Panel (07/29/2024 12:57 PM EST) EBV Viral Capsid Ag Ab (IGM) <36.00 U/mL 07/30/2024 2:31 AM EST [employer] Comment: ?U/mL ?Interpretation ?---- ?<36.00 ?Negative ?36.00-43.99 ? Equivocal ?>43.99 ?Positive EBV Viral Capsid Ag Ab (IGG) 422.00(H) U/mL 07/30/2024 2:31 AM EST [employer] Comment: ? U/mL ? Interpretation ? ---- ? <18.00 ? Negative ? 18.00-21.99 ?Equivocal ? >21.99 ? Positive EBV Nuclear Ag Ab >600.00(H) U/mL 024 2:31 AM EST [employer] Comment: ? U/mL ? Interpretation ? ---- ? <18.00 ? Negative ? 18.00-21.99 ?Equivocal ? >21.99 ? 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 In infants, a similar pattern may occur as a result of passive maternal transfer of antibody. Blood Structure of peripheral vein / Unknown Venipuncture / Unknown 07/29/2024 12:57 PM EST 07/29/2024 1:32 PM EST [facility] - 07/30/2024 2:31 AM EST [facility] Received Date: Joey Duarte MD LAB BLOOD ORDERABLES María howard Result [facility] [address] [facility] [address] [facility], [place] [address], [employer] [address] [facility] 3rd Floor, [place] [address], * Hepatitis C Antibody w/Reflex to PCR (07/29/2024 12:57 PM EST) Hepatitis C Antibody NON-REACT STANFORD NON-REACT STANFORD 07/30/2024 3:03 AM EST [employer] Comment: HCV antibody was non-reactive. There is no laboratory evidence of HCV infection. In most cases, no further action is required. However, if recent HCV exposure is suspected, a test for HCV RNA (test code 48290) is suggested. For additional information please refer to http://ElementsLocal.DIY/faq/GSR43k8 (This link is being provided for informational/ educational purposes only.) Blood Structure of peripheral vein / Unknown Venipuncture / Unknown 07/29/2024 12:57 PM EST 07/29/2024 1:32 PM EST [facility] [place] - 07/30/2024 3:03 AM EST [facility] Received Date: Joey Duarte MD LAB BLOOD ORDERABLES María l Result [facility] [address] [facility] 3rd Floor, [place] [address], [place] [phone] [employer] [facility] [address], [place] [address], [place] [phone] * Hepatitis A Antibody, Total (07/29/2024 12:57 PM EST) Pathologist [facility] [place] Hepatitis A Ab, Total NON-REACT STANFORD NON-REACT [place]FORD 07/30/2024 3:01 AM EST [employer] [facility] Comment: For additional information, please refer to http://ElementsLocal.DIY/faq/OXU090 (This link is being provided for informational/ educational purposes only.) Blood Structure of peripheral vein / Unknown Venipuncture / Unknown 07/29/2024 12:57 PM EST 07/29/2024 1:32 PM EST [facility] - 07/30/2024 3:01 AM EST [facility] Received Date:[id number] us Joey Duarte MD LAB BLOOD ORDERABLES María l Result [facility] [address] [facility] 3rd Floor, [place] [address], [place] [phone] [employer] [facility] [address] [facility] 3rd Floor, [place] [address], [place] [phone] * Hepatitis B Core Antibody, Total (07/29/2024 12:57 PM EST) Hepatitis B Core Ab Total NON-REACT [place]ANFORD NON-REACT [place]ORD 07/30/2024 3:[address] [facility] Comment: For additional information, please refer to http://ElementsLocal.DIY/faq/PBH438 (This link is being provided for informational/ educational purposes only.) Blood Structure of peripheral vein / Unknown Venipuncture / Unknown 07/29/2024 12:57 PM EST 07/29/2024 1:14 PM EST Narrative [facility] - 07/30/2024 3:01 AM EST [facility] Received Date: us Joey Duarte MD LAB BLOOD ORDERABLES María l Result [facility] [address] [facility] 3rd Floor, [place] [address], [place] [phone] [employer] [facility] [address] [facility] 3rd Floor, [place] [address], [place] [phone] * ABO/Rh Blood Type (07/29/2024 12:57 PM EST) ABO Blood Type O 07/29/2024 1:55 PM EST [facility] RH Type Positive 07/29/2024 1:55 PM EST [facility] Blood Structure of peripheral vein / Unknown Venipuncture / Unknown 07/29/2024 12:57 PM EST 07/29/2024 1:14 PM EST us Joey Duarte MD LAB BLOOD BANK TEST ORDER KAN Final Result [facility] [address] [place] [address], [place] [phone] * (ABNORMAL) Hepatitis B Surface Antibody (07/29/2024 12:57 PM EST) Pathologist [facility] [place] Hepatitis B Surface Ab Immunity, Qn <5(L) > OR = 10 mIU/mL 07/30/2024 1:59 AM EST [employer] Comment: PATIENT DOES NOT HAVE IMMUNITY TO HEPATITIS B VIRUS. For additional information, please refer to http://ElementsLocal.DIY/faq/GSK838 (This link is being provided for informational/ educational purposes only). Blood Structure of peripheral vein / Unknown Venipuncture / Unknown 07/29/2024 12:57 PM EST 07/29/2024 1:32 PM EST Narrative [facility] [place] - 07/30/2024 1:59 AM EST [facility] Received Date: us Joey Duarte MD LAB BLOOD ORDERABLES María l Result Performing Organization Address City/[facility]/ZIP Co de Phone Number [employer] [facility] [place] [address] [facility] [address] [facility], [place] [address], [address] [facility] [address] [facility] [address] [facility], [place] [address], * Hepatitis B Surface Antigen w/Confirmation (07/29/2024 12:57 PM EST) Pathologist [facility] [place] Hepatitis B Surface Antigen NON-REACT [place]ANF[place] NON-REACT [place]FORD 07/30/2024 2:[address] [facility] Comment: For additional information, please refer to http://ElementsLocal.DIY/faq/KZH156 (This link is being provided for informational/ educational purposes only.) Blood Structure of peripheral vein / Unknown Venipuncture / Unknown 07/29/2024 12:57 PM EST 07/29/2024 1:32 PM EST Narrative [facility] [facility] [place] - 07/30/2024 2:02 AM EST [facility] Received Date: us Joey Duarte MD LAB BLOOD ORDERABLES María l Result Performing Organization Address City/[facility]/ZIP Co de Phone Number [employer] [facility] [place] [address] [facility] 3rd Floor, [address] [place] [address], [employer] [facility] [address] [facility] 3rd Floor, [place] [address], * (ABNORMAL) Cytomegalovirus Antibody, IgG (07/29/2024 12:57 PM EST) Cytomegalovirus Antibody (IgG) >10.00(H ) U/mL 07/30/2024 5:09 AM EST [employer] Comment: ? U/mL ? Interpretation ? ----- ? <0.60 ? Negative ? 0.60-0.69 ? Equivocal ? > or = 0.70 ?? Positive A positive result indicates that the patient has antibody to CMV. It does not differentiate between an active or past infection. Blood Structure of peripheral vein / Unknown Venipuncture / Unknown 07/29/2024 12:57 PM EST 07/29/2024 1:32 PM EST Narrative [facility] [place] - 07/30/2024 5:09 AM EST [facility] Received Date: us Joey Duarte MD LAB BLOOD ORDERABLES María howard Result [facility] [address] [facility] 3rd Floor, [place] [address], [facility] [address], [place] [address], * (ABNORMAL) PTT (07/29/2024 12:57 PM EST) aPTT 32.9(H) 23.0 - 32.0 Seconds 07/29/2024 1:50 PM EST [facility] Comment: Current PTT reagent is not sensitive to detect all Lupus Anticoagulant (LA) Inhibitor Cases. ?? If a LA is suspected, please order a Lupus Anticoagulation w/ Reflex Test which is performed at [facility] in [place], [place]. Blood Structure of peripheral vein / Unknown Venipuncture / Unknown 07/29/2024 12:57 PM EST 07/29/2024 1:32 PM EST Joey Duarte MD LAB BLOOD ORDERABLES María l Result Performing Organization Address City/[facility]/ZIP Co de Phone Number [facility] [address] [place] [address], * (ABNORMAL) Protime-INR (07/29/2024 12:57 PM EST) PT 14.8(H) 9.6 - 12.4 Seconds 07/29/2024 1:50 PM EST [facility] INR 1.4 0.9 - 1.1 07/29/2024 1:50 PM EST [facility] Comment:The optimal therapeu tic INR range for patients treated with Vitamin K antagonists (VKAS, e.g., Warfarin) is 2.0 to 3.5. Discuss the desired range with your doctor/care team. Blood Structure of peripheral vein / Unknown Venipuncture / Unknown 07/29/2024 12:57 PM EST 07/29/2024 1:32 PM EST Joey Duarte MD LAB BLOOD ORDERABLES María l Result [facility] [address] [place] [address], * Varicella Zoster Antibody, IgG (07/29/2024 12:57 PM EST) Varicella Zoster Virus Antibody 15.80 S/CO 07/30/2024 5:[address] [facility] Comment: ?Signal to Cut-off ? S/CO ?Interpretation ? --------- ?<1.00 ?Negative - Antibody not detected ?> or = 1.00 ?Positive - Antibody detected ?A positive result indicates that the patient ?has antibody to VZV but does not differentiate ?between an active or past infection. ?The clinical diagnosis must be interpreted in ?conjunction with the clinical signs and symptoms of ?the patient. This assay reliably measures immunity ?due to previous infection but may not be ?sensitive enough to detect antibodies induced by ?vaccination. Thus, a negative result in a vaccinated ?individual does not necessarily indicate ?susceptibility to VZV infection. A more sensitive ?test for vaccination-induced immunity is Varicella ?Zoster Virus Antibody Immunity Screen, ACIF. Blood Structure of peripheral vein / Unknown Venipuncture / Unknown 07/29/2024 12:57 PM EST 07/29/2024 1:14 PM EST Narrative [facility] [place] - 07/30/2024 5:10 AM EST [facility] Received Date: Joey Duarte MD LAB BLOOD ORDERABLES María howard Result [facility] [address] [facility] 3rd Floor, [place] [address], [employer] [address], [place] [address], * (ABNORMAL) BUN (07/29/2024 12:57 PM EST) BUN 53(H) 7 - 23 mg/dL 07/29/2024 2:00 PM EST [facility] Blood Structure of peripheral vein / Unknown Venipuncture / Unknown 07/29/2024 12:57 PM EST 07/29/2024 1:29 PM EST Joey Duarte MD LAB BLOOD ORDERABLES María l Result Performing Organization Address City/[facility]/ZIP Co de Phone Number [facility] [address] [place] [address], [place] * ALT (07/29/2024 12:57 PM EST) ALT 13 10 - 40 U/L 07/29/2024 2:00 PM EST [facility] Blood Structure of peripheral vein / Unknown Venipuncture / Unknown 07/29/2024 12:57 PM EST 07/29/2024 1:29 PM EST Joey Duarte MD LAB BLOOD ORDERABLES María l Result [facility] [address] [place] [address], [place] * AST (07/29/2024 12:57 PM EST) AST 22 10 - 40 U/L 07/29/2024 2:00 PM EST [facility] Blood Structure of peripheral vein / Unknown Venipuncture / Unknown 07/29/2024 12:57 PM EST 07/29/2024 1:29 PM EST Joey Duarte MD LAB BLOOD ORDERABLES María l Result Performing Organization Address [facility]/ZIP Co de Phone Number [facility] [address] [place] [address], * PSA (07/29/2024 12:57 PM EST) PSA 0.85 <=4.00 ng/mL 07/29/2024 2:15 PM EST [facility] Comment: The total PSA value from this assay system is standardized against the WHO standard. ??The test result will be slightly lower (< 3 %) when compared to the equimolar-standardized total PSA(Teressa Sachin). ??Comparison of Serial PSA results should be interpreted with this fact in mind. ??PSA level, regardless of value should not be interpreted as absolute evidence of the presence or absence of disease. This test was performed using Jared chemiluminescent method. ??Values obtained by different assay methods cannot be used interchangeably. Blood Structure of peripheral vein / Unknown Venipuncture / Unknown 07/29/2024 12:57 PM EST 07/29/2024 1:32 PM EST Joey Duarte MD LAB BLOOD ORDERABLES María l Result Performing Organization Address [facility] [[email or web address]] Co de Phone Number [facility] [address] [place] [address], * Phosphorus (07/29/2024 12:57 PM EST) Phosphorus 4.5 2.5 - 4.5 mg/dL 07/29/2024 2:00 PM EST [facility] Blood Structure of peripheral vein / Unknown Venipuncture / Unknown 07/29/2024 12:57 PM EST 07/29/2024 1:29 PM EST Joey Duarte MD LAB BLOOD ORDERABLES María l Result Performing Organization Address [facility]/ZIP Co de Phone Number [facility] [address] [place], [place] [address] * (ABNORMAL) Hemoglobin A1c (07/29/2024 12:57 PM EST) Hemoglobin A1C 6.7(H) <5.7 % of total Hgb 07/30/2024 1:59 AM EST [employer] Comment: For someone without known diabetes, a hemoglobin A1c value of 6.5% or greater indicates that they may have diabetes and this should be confirmed with a follow-up test. For someone with known diabetes, a value <7% indicates that their diabetes is well controlled and a value greater than or equal to 7% indicates suboptimal control. A1c targets should be individualized based on duration of diabetes, age, comorbid conditions, and other considerations. Currently, no consensus exists regarding use of hemoglobin A1c for diagnosis of diabetes for children. ?? eAG (MG/DL) 146 mg/dL 07/30/2024 1:59 AM EST [employer] eAG (MMOL/L) 8.1 mmol/L 07/30/2024 1:59 AM EST [employer] Blood Structure of peripheral vein / Unknown Venipuncture / Unknown 07/29/2024 12:57 PM EST 07/29/2024 1:32 PM EST [facility] - 07/30/2024 1:59 AM EST [employer] Received Date: Joey Duarte MD LAB BLOOD ORDERABLES María l Result [facility] [address] [facility] 3rd Floor, [place] [address], [employer] [address] [facility] 3rd Floor, [place] [address], [place] [phone] * (ABNORMAL) Creatinine (07/29/2024 12:57 PM EST) Creatinine 4.54(H) 0.60 - 1.30 mg/dL 07/29/2024 2:00 PM EST [facility] eGFR 14(L) >=60 mL/min/1 .73m2 07/29/2024 2:00 PM EST [facility] Comment:The estimated glomer ular filtration rate (eGFR) is calculated using a new formula developed by the NKF-ASN task force to eliminate race-based correction factors. The new formula uses serum/plasma creatinine, age, and gender to determine eGFR. A value below 60mls/min might indicate kidney disease and will be flagged. For additional information, see Riaz et al, Am J Kidney Dis. 2021;79(2):268- 288, A Unifying Approach for GFR estimation: Recommendations of the NKF-ASN Task Force on Reassessing the Inclusion of Race in Diagnosing Kidney Disease . Blood Structure of peripheral vein / Unknown Venipuncture / Unknown 07/29/2024 12:57 PM EST 07/29/2024 1:29 PM EST Joey Duarte MD LAB BLOOD ORDERABLES María l Result Performing Organization Address City/[facility]/ZIP Co de Phone Number [facility] [address] [place] [address], [place] * Calcium (07/29/2024 12:57 PM EST) Calcium 8.6 8.6 - 10.5 mg/dL 07/29/2024 2:00 PM EST [facility] Blood Structure of peripheral vein / Unknown Venipuncture / Unknown 07/29/2024 12:57 PM EST 07/29/2024 1:29 PM EST Joey Duarte MD LAB BLOOD ORDERABLES María l Result [facility] [address] [place] [address], * Bilirubin, Direct (07/29/2024 12:57 PM EST) Bilirubin, Direct 0.3 <=0.4 mg/dL 07/29/2024 2:00 PM EST [facility] Blood Structure of peripheral vein / Unknown Venipuncture / Unknown 07/29/2024 12:57 PM EST 07/29/2024 1:29 PM EST Joey Duarte MD LAB BLOOD ORDERABLES María l Result [facility] [address] [place] [address], * Bilirubin, Total (07/29/2024 12:57 PM EST) Bilirubin, Total 0.5 0.2 - 1.2 mg/dL 07/29/2024 2:00 PM EST [facility] Blood Structure of peripheral vein / Unknown Venipuncture / Unknown 07/29/2024 12:57 PM EST 07/29/2024 1:29 PM EST Joey Duarte MD LAB BLOOD ORDERABLES María l Result Performing Organization Address [facility] [[email or web address]] Co de Phone Number [facility] [address] [place] [address], * Albumin (07/29/2024 12:57 PM EST) Albumin 4.3 3.5 - 5.2 g/dL 07/29/2024 2:00 PM EST [facility] Blood Structure of peripheral vein / Unknown Venipuncture / Unknown 07/29/2024 12:57 PM EST 07/29/2024 1:29 PM EST Joey Duarte MD LAB BLOOD ORDERABLES María l Result Performing Organization Address [facility] [[email or web address]] Co de Phone Number [facility] [address] [place] [address] from Last 3 Months Insurance [facility] MCR [facility]PLACE [facility] MCR REPLACE AARP [facility] Advance Directives Documents on File Type Date Recorded 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
--- OUTSIDE RECORDS SUMMARY | 2024-10-05 11:12 | XMS_ITS | Encounter Summary ---
Author Organization [facility] Address [address] [place] [address] Care Team Providers Care Soldering Machine Operator Name Role Phone Ayaka Salgado Primary Care Provider [phone] Encounter Details Date Type Department Care Team (Late st Contact Info) Description 09/13/2024 Telephone [facility] Transplant Department [address] [place] [address] Shima Springer RN [address] [place] [address] Social History Tobacco Use Types [...] * Telephone Encounter - Micah Pritchard - 09/13/2024 1:51 PM EST i received a call from the patient telling me that his CT was scheduled in [facility] and he wants all his appointments scheduled in [place]. call [facility] and confirm his appointment is for 09/22/2024 at 10 am in [place] and not in [facility]. i also explained to him that he needs to take the oral contrast drink two hour before his appoitment. documented in this encounter Plan of Treatment Not on file documented as of this encounter Visit Diagnoses Not on filedocumented in this encounter Care Teams Soldering Machine Operator Relationship Specialty Start Date End Date Ayaka Salgado [address] [place] [address] PCP - General Internal Medicine 07/29/24 documented as of this encounter
--- OUTSIDE RECORDS SUMMARY | 2024-10-05 11:12 | XMS_ITS ---
Author Organization [facility] Address [address] [place] [address] Care Team Providers Care Waste Water Or Water Plant Operator Name Role Phone Ayaka Salgado Primary Care Provider Transplant Episode Kidney Candidate [facility] ([place], [place]) - [facility] Evaluation began on 07/29/2024 Marked as Active on 07/29/2024 Kidney CoordinatorShima Springer RN Email: N/A Scores Score Value Updated Exceptions/Reas ons CPRA Not available EPTS (Calc) 43 10/05/2024 [place] Organ Diagnosis Organ Primary Contributory Kidney Diabetes Mellitus - Type II Care Team Name Role Phone Fax Email Shima Springer RN Kidney Coordinator [phone] N/A Ross Balwdin Referring Physician [phone] N/A Events Pre-Transplant Referred: 07/19/2024 Evaluation began: 07/29/2024
--- OUTSIDE RECORDS SUMMARY | 2024-10-05 11:12 | XMS_ITS | Encounter Summary ---
Author Organization [employer] Address [address] [facility] [address] [place] [address] Care Team Providers Care Warehousing Technician Name Role Phone Ayaka Salgado MD Primary Care Provider [phone] Encounter Details Date Type Department Care Team (Late st Contact Info) Description 10/11/2022 Orders Only [facility] MEDICINE [address] [place] [address] Ayaka Salgado MD [address] [place] [address] Congestive heart failure, unspecified HF chronicity, unspecified heart failure type (CMS/HCC); Edema of foot Social History Tobacco Use Types Packs/Day Years [...] AM EST documented as of this encounter Plan of Treatment Upcoming Encounters Date Type Department Care Team ([facility] st Contact Info) Description 11/24/2024 9:00 AM EDT Clinical Support [facility] [address] [place] [address] Alana Hook, RACHELLE [address] [place] [address] documented as of this encounter Visit Diagnoses Diagnosis Congestive heart failure, unspecified HF chronicity, unspecified heart failure type (CMS/HCC) Edema of foot Edema documented in this encounter Additional Health Concerns Assessment Noted Time PHQ-9 Depression Total Score: 7 08/29/20 22 10:26 AM EST documented as of this encounter Care Teams Warehousing Technician Relationship Specialty Start Date End Date Ayaka Salgado MD [address] [place] [address] PCP - General Internal Medicine 09/15/18 documented as of this encounter
--- OUTSIDE RECORDS SUMMARY | 2024-10-05 11:12 | XMS_ITS | Referral Summary ---
Author Organization [facility] Address [address] [place] [address] Care Team Providers Care Language Tutor Name Role Phone Ayaka Salgado Primary Care Provider [phone] Encounters Date Type Department Care Team Description 09/17/2024 Telephone [facility] Transplant Department [address] [place] [address] [phone] Shima Springer, RN 09/13/2024 Telephone [facility] Transplant Department [address] [place] [address] 17567 Shima Springer, RN 08/27/2024 Telephone [facility] Transplant Department [address] [place] [address] [phone] Shima Springer, RN 07/29/2024 Orders Only [facility] XRay [address] [place] [address] [phone] Waqas Garnett MD 07/29/2024 12:50 PM EST Lab [facility] Walker Lab Draw Site [address] [place] [address] [phone] Pre-transplant evaluation for end stage renal disease; Chronic kidney disease, stage IV (severe) ([facility]); Weak urinary stream; Controlled type 2 diabetes mellitus with diabetic nephropathy, with long-term current use of insulin (HCC) 07/29/2024 11:00 AM EST Nutrition [facility] Renal Transplant [address] [place] [phone] Pre-transplant evaluation for kidney transplant (Primary Dx) 07/29/2024 10:15 AM EST Office Visit [facility] Renal Transplant [address] [place] [address] [phone] Joey Duarte MD Pre-transplant evaluation for kidney transplant (Primary Dx); Pre-transplant evaluation for end stage renal disease; Stage 4 chronic kidney disease (HCC) 07/29/2024 9:30 AM EST Social Work [facility] Renal Transplant [address] [place] [address] Susan Babb LICSW 07/29/2024 8:15 AM EST Evaluation [facility] Renal Transplant [address] [place] [address] Shima Springer, RACHELLE Pre-transplant evaluation for end stage renal disease (Primary Dx) 07/29/2024 8:00 AM EST Office Visit [facility] Renal Transplant [address] [place] [address] [phone] Kristi Conklin RN Pre-transplant evaluation for kidney transplant (Primary Dx) 07/26/2024 Telephone [facility] Transplant Department [address] [place] [address] [phone] Shima Springer RN 07/22/2024 Orders Only [facility] Transplant Department [address] [place] [address] [phone] Shima Springer, RN Pre-transplant evaluation for end stage renal disease (Primary Dx); Chronic kidney disease, stage IV (severe) ([facility]); Controlled type 2 diabetes mellitus with diabetic nephropathy, with long-term current use of insulin ([facility]); Weak urinary stream from Last 3 Months Allergies Active Allergy Reactions Criticality Noted Date Comments Apixaban Nosebleed 07/22/2024 Aspirin Nosebleed 07/22/2024 Clopidogrel Nosebleed 07/22/2024 Metformin Sugar, low 07/22/2024 Warfarin Nosebleed 07/22/2024 Medications albuterol 2.5 mg/3 mL (0.083%) nebulizer solution SMARTSI Milliliter(s) Via Nebulizer Every 4 Hours PRN Active Ventolin HFA 90 mcg/actuation inhaler SMARTSI [...] Date Stage 4 chronic kidney disease 07/22/2024 Social History Tobacco Use Types Packs/Day Years [...] 07/29/2024 10:00 AM EST Plan of Treatment Not on file Procedures * Due to [place] state law, this organization might not be [...] IV (severe) (HCC) QUANTIFERON-TB GOLD PLUS, 1 [id number] Routine 07/29/2024 12:57 PM EST Pre-transplant evaluation for end stage renal disease Chronic kidney disease, stage IV (severe) (HCC) RPR (DIAGNOSIS) W/REFLEX TO TITER & TPPA [id number] Routine 07/29/2024 12:57 PM EST Pre-transplant evaluation for end stage renal disease Chronic kidney disease, stage IV (severe) (HCC) VARICELLA ZOSTER ANTIBODY, IGG Routine 07/29/2024 12:57 PM EST Pre-transplant evaluation for end stage renal disease Chronic kidney disease, stage IV (severe) (HCC) HLA TRANSPLANT WORK-UP (ALLELE LEVEL A/B/C/DRB1/OBV075/DQA1/ DQB1/DPA1/DPB1) Routine 07/29/2024 12:57 PM EST Pre-transplant [...] Last 3 Months Results * Due to [place] state law, this organization might not be sharing negative HIV tests. * HLA Transplan Work-Up(Allele Level A/B/C/DRB1/ZWT748/DQA1/DQB1/DPA1/DPB1) (07/29/2024 12:57 PM EST) Pathologist [facility] Histocompatibility Laboratory Information See Below 08/05/2024 6:18 PM EST [facility] Comment: CAMERON: ??[id number] ?Director: ??Dina Centeno MD. [facility] PFI: ??[id number] UNOS: ??[id number] This test was [...] DATA NOT REPORTED 08/05/2024 6:18 PM EST [facility] Blood Structure of peripheral vein / Unknown Venipuncture / Unknown 07/29/2024 12:57 PM EST 07/29/2024 1:14 PM EST Joey Duarte MD HLA LAB ORDERABLES Edited Result - Final [facility] [address] [facility] Rm: [id number] [place] [address], * (ABNORMAL) MMR Panel, IgG (07/29/2024 12:57 PM EST) Measles Antibody (IgG), Immune Status >300.00 AU/mL 07/30/2024 5:19 AM EST [facility] Comment: AU/mL ?Interpretation ----- ? <13.50 ? Not consistent with immunity 13.50-16.49 ?Equivocal >16.49 ? Consistent with immunity The presence of measles IgG suggests immunization or past or current infection with measles virus. For additional information, please refer to http://education.Websand/faq/SDW461 (This link is being provided for informational/ educational purposes only.) Mumps Antibody (IgG), Immune Status 9.01(L) AU/mL 07/30/2024 5:19 AM EST [facility] Comment: AU/mL ? Interpretation ------- ? <9.00 ? Not consistent with immunity 9.00-10.99 ?Equivocal >10.99 ?Consistent with immunity The presence of mumps IgG antibody suggests immunization or past or current infection with mumps virus. Rubella Antibody (IgG), Immune Status 31.80 Index 07/30/2024 5:19 AM EST [facility] Comment: ?Index ?Interpretation ?----- ?<0.90 ?Not consistent with immunity ?0.90-0.99 ?Equivocal ?> or = 1.00 ?Consistent with immunity The presence of rubella IgG antibody suggests immunization or past or current infection with rubella virus. Blood Structure of peripheral vein / Unknown Venipuncture / Unknown 07/29/2024 12:57 PM EST 07/29/2024 1:32 PM EST [facility] - 07/30/2024 5:19 AM EST [facility] Received Date: Joey Duarte MD LAB BLOOD ORDERABLES María howard Result [address] [facility], [place] [address], [employer] [facility] [address] [facility] 3rd Floor, [place] [address], * (ABNORMAL) Herpes Simplex Virus 1&2, IgG (07/29/2024 12:57 PM EST) HSV 1 IgG Type Specific Ab 42.70(H) index 07/30/2024 5:09 AM EST [facility] HSV 2 IgG Type Specific Ab <0.90 index 07/30/2024 5:09 AM EST [facility] Comment: ?Index ?Interpretation ?----- ?<0.90 ?Negative ?0.90-1.09 [...] screening. For additional information, please refer to http://education.[employer].VHT/faq/YLT928 (This link is being provided for informational/ educational purposes only.) ?? Blood Structure of peripheral vein / Unknown Venipuncture / Unknown 07/29/2024 12:57 PM EST 07/29/2024 1:14 PM EST Narrative [facility] - 07/30/2024 5:09 AM EST [facility] Received Date: us Joey Duarte MD LAB BLOOD ORDERABLES María howard Result [facility] [place] [address] [facility] [address]rd Floor, [place] [address], [place] [phone] [employer] [facility] [address] [facility] [address], [place] [address], * RPR (Diagnosis) w/Reflex to Titer & TPPA Confirm (07/29/2024 12:57 PM EST) RPR W/Refl Titer NON-REACT [place] NON-REACT [place] 07/30/2024 11:39 AM EST [facility] Blood Structure of peripheral vein / Unknown Venipuncture / Unknown 07/29/2024 12:57 PM EST 07/29/2024 1:14 PM EST Narrative [facility] [place] - 07/30/2024 11:39 AM EST [facility] Received Date: Joey Duarte MD LAB BLOOD ORDERABLES María lee Result [facility] [address] [facility] [address] Floor, [place] [address], [employer] [facility] [address], [place] [address], * QuantiFERON-TB Gold Plus, 1 Tube (07/29/2024 12:57 PM EST) QuantiFERON-TB Gold Plus NEGATIVE NEGATIVE 07/31/2024 6:01 AM [employer] [facility] Comment: Negative test result. M. tuberculosis complex infection unlikely. NIL 0.01 IU/mL 07/31/2024 6:01 AM [facility] [facility] Mitogen-NIL 7.39 IU/mL 07/31/2024 6:01 AM [facility] [facility] TB1-NIL 0.01 IU/mL 07/31/2024 6:01 AM EST [facility] TB2-NIL 0.01 IU/mL 07/31/2024 6:01 AM [facility] [facility] Comment: The Nil tube value reflects the [...] T-lymphocytes. For additional information, please refer to https://education.Broadlink/faq/DYV560 (This link is being provided for informational/ educational purposes only.) Blood Structure of peripheral vein / Unknown Venipuncture / Unknown 07/29/2024 12:57 PM EST 07/29/2024 1:11 PM EST Narrative [facility] [place] - 07/31/2024 6:01 AM EST [facility] Received Date: Joey Duarte MD LAB BLOOD ORDERABLES María howard Result [facility] [address] [facility] [address] [facility], [place] [address], [place] [phone] [employer] [facility] [address] [facility] [address], [place] [address], [place] [phone] * (ABNORMAL) CBC Auto Differential (07/29/2024 12:57 PM EST) WBC 6.0 3.8 - 10.8 10*3/uL 07/29/2024 1:35 PM EST [facility] RBC 3.69(L) 4.20 - 5.80 10*6/uL 07/29/2024 1:35 PM EST [facility] Hemoglobin 9.7(L) 13.2 - 17.1 g/dL 07/29/2024 1:35 PM EST [facility] Hematocrit 31.5(L) 38.5 - 50.0 % 07/29/2024 1:35 PM EST [facility] MCV 85.4 80.0 - 100.0 fL 07/29/2024 1:35 PM EST [facility] MCH 26.3(L) [...] - 0.50 10*3/uL 07/29/2024 1:35 PM EST [facility] PATHOLOG[facility] LABOR[facility] Basophil # <0.03 0.00 - 0.20 10*3/uL 07/29/2024 1:35 PM EST [facility] nRBC % 0.0 /100 WBCs 07/29/2024 1:35 PM EST [facility] nRBC # <0.01 <0.01 10*3/uL 07/29/2024 1:35 PM EST [facility] CLINICAL PATH[facility] LAB[facility] Blood Structure of peripheral vein / Unknown Venipuncture / Unknown 07/29/2024 12:57 PM EST 07/29/2024 1:29 PM EST Joey Duarte MD LAB BLOOD ORDERABLES María howard Result Performing Organization Address City/State/[facility] Co de Phone Number [facility] [address] [place] [address], * (ABNORMAL) Junior-Finney Virus VCA Antibody Panel (07/29/2024 12:57 PM EST) EBV Viral Capsid Ag Ab (IGM) <36.00 U/mL 07/30/2024 2:31 AM [employer] Comment: ?U/mL ?Interpretation ?---- ?<36.00 ?Negative ?36.00-43.99 ? Equivocal ?>43.99 ?Positive EBV Viral Capsid Ag Ab (IGG) 422.00(H) U/mL 07/30/2024 2:31 AM [employer] Comment: ? U/mL ? Interpretation ? ---- ? <18.00 ? Negative ? 18.00-21.99 ?Equivocal ? >21.99 ? Positive EBV Nuclear Ag Ab >600.00(H) U/mL 024 2:31 AM EST [facility] Comment: ? U/mL ? Interpretation ? ---- ? <18.00 ? Negative ? 18.00-21.99 ?Equivocal ? >21.99 ? Positive Interpretation: See Comments 07/30/2024 2:31 AM EST [facility] Comment: Suggestive of a past Junior-Finney virus infection. In infants, a similar pattern may occur as a result of passive maternal transfer of antibody. Blood Structure of peripheral vein / Unknown Venipuncture / Unknown 07/29/2024 12:57 PM EST 07/29/2024 1:32 PM EST Narrative [employer] [facility] [place] - 07/30/2024 2:31 AM EST [facility] Received Date: us Joey Duarte MD LAB BLOOD ORDERABLES María howard Result [facility] [place] [address] [facility] 3rd Floor, [place] [address], [employer] [facility] [address] [facility] [address], [place] [address], * Hepatitis C Antibody w/Reflex to PCR (07/29/2024 12:57 PM EST) Hepatitis C Antibody NON-REACT [place] NON-REACT [place] 07/30/2024 3:03 AM EST [employer] [facility] Comment: HCV antibody was non-reactive. There is no laboratory evidence of HCV infection. In most cases, no further action is required. However, if recent HCV exposure is suspected, a test for HCV RNA (test code 06080) is suggested. For additional information please refer to http://[place] Shellfish.Broadlink/faq/TGM88j6 (This link is being provided for informational/ educational purposes only.) Blood Structure of peripheral vein / Unknown Venipuncture / Unknown 07/29/2024 12:57 PM EST 07/29/2024 1:32 PM EST Narrative [employer] [place] - 07/30/2024 3:03 AM EST [facility] Received Date: Joey Duarte MD LAB BLOOD ORDERABLES María l Result [facility] [address] [facility] [address] Floor, [place] [address], [employer] [facility] [address] [facility] [address] Floor, [place] [address], * Hepatitis A Antibody, Total (07/29/2024 12:57 PM EST) Hepatitis A Ab, Total NON-REACT [place] NON-REACT [place] 07/30/2024 3:01 AM EST [employer] [facility] Comment: For additional information, please refer to http://[place] Shellfish.Broadlink/faq/ZBZ397 (This link is being provided for informational/ educational purposes only.) Blood Structure of peripheral vein / Unknown Venipuncture / Unknown 07/29/2024 12:57 PM EST 07/29/2024 1:32 PM EST Narrative [employer] [place] - 07/30/2024 3:01 AM EST [facility] Received Date: us Joey Duarte MD LAB BLOOD ORDERABLES María l Result [facility] [address], [place] [address], [place] [phone] [employer] [address], [place] [address], [place] [phone] * Hepatitis B Core Antibody, Total (07/29/2024 12:57 PM EST) Hepatitis B Core Ab Total NON-REACT [place] NON-REACT [place] 07/30/2024 3:01 AM EST [facility] Comment: For additional information, please refer to http://education.Broadlink/faq/LIX243 (This link is being provided for informational/ educational purposes only.) Blood Structure of peripheral vein / Unknown Venipuncture / Unknown 07/29/2024 12:57 PM EST 07/29/2024 1:14 PM EST Narrative [facility] - 07/30/2024 3:01 AM EST [facility] Received Date: Joey Duarte MD LAB BLOOD ORDERABLES María l Result [facility] [place] [address], [place] [address], [place] [phone] [facility] [employer] [facility] [address], [place] [address], [place] [phone] * ABO/Rh Blood Type (07/29/2024 12:57 PM EST) ABO Blood Type O 07/29/2024 1:55 PM EST [facility] RH Type Positive 07/29/2024 1:55 PM EST [facility] Blood Structure of peripheral vein / Unknown Venipuncture / Unknown 07/29/2024 12:57 PM EST 07/29/2024 1:14 PM EST Joey Duarte MD LAB BLOOD BANK TEST ORDER KAN Final Result BLOOD BANK INF[address] [address], * (ABNORMAL) Hepatitis B Surface Antibody (07/29/2024 12:57 PM EST) Hepatitis B Surface Ab Immunity, Qn <5(L) > OR = 10 mIU/mL 07/30/2024 1:59 AM EST [employer] [facility] Comment: PATIENT DOES NOT HAVE IMMUNITY TO HEPATITIS B VIRUS. For additional information, please refer to http://[place] Shellfish.Broadlink/faq/UJH527 (This link is being provided for informational/ educational purposes only). Blood Structure of peripheral vein / Unknown Venipuncture / Unknown 07/29/2024 12:57 PM EST 07/29/2024 1:32 PM EST Narrative [facility] - 07/30/2024 1:59 AM EST [facility] Received Date: Joey Duarte MD LAB BLOOD ORDERABLES María l Result [facility] [place] [address] [facility] [address] Floor, [place] [address], [place] [phone] [employer] [facility] [address] [facility] [address], [place] [address], [place] [phone] * Hepatitis B Surface Antigen w/Confirmation (07/29/2024 12:57 PM EST) Hepatitis B Surface Antigen NON-REACT [place] NON-REACT [place] 07/30/2024 2:02 AM EST [employer] [facility] Comment: For additional information, please refer to http://[place] Shellfish.Broadlink/faq/OMT911 (This link is being provided for informational/ educational purposes only.) Blood Structure of peripheral vein / Unknown Venipuncture / Unknown 07/29/2024 12:57 PM EST 07/29/2024 1:32 PM EST Narrative [employer] [facility] - 07/30/2024 2:02 AM EST [facility] Received Date: Joey Duarte MD LAB BLOOD ORDERABLES María lee Result [facility] [place] [address] [facility] [address], [place] [address], [facility] [address] [facility] [address] Floor, [place] [address], * (ABNORMAL) Cytomegalovirus Antibody, IgG (07/29/2024 12:57 PM EST) Pathologist [facility] Cytomegalovirus Antibody (IgG) >10.00(H ) U/mL 07/30/2024 5:09 AM EST [facility] Comment: ? U/mL ? Interpretation ? ----- ? <0.60 ? Negative ? 0.60-0.69 ? Equivocal ? > or = 0.70 ?? Positive A positive result indicates that the patient has antibody to CMV. It does not differentiate between an active or past infection. Blood Structure of peripheral vein / Unknown Venipuncture / Unknown 07/29/2024 12:57 PM EST 07/29/2024 1:32 PM EST Narrative [facility] [place] - 07/30/2024 5:09 AM EST [facility] Received Date: Joey Duarte MD LAB BLOOD ORDERABLES María howard Result [facility] [place] [address] [facility] [address], [place] [address], [place] [phone] [employer] [facility] [address] [facility] [address], [place] [address], [place] [phone] * (ABNORMAL) PTT (07/29/2024 12:57 PM EST) aPTT 32.9(H) 23.0 - 32.0 Seconds 07/29/2024 1:50 PM EST [facility] Comment: Current PTT reagent is not sensitive to detect all Lupus Anticoagulant (LA) Inhibitor Cases. ?? If a LA is suspected, please order a Lupus Anticoagulation w/ Reflex Test which is performed at [facility] in [place], [place]. Blood Structure of peripheral vein / Unknown Venipuncture / Unknown 07/29/2024 12:57 PM EST 07/29/2024 1:32 PM EST Joey Duarte MD LAB BLOOD ORDERABLES María howard Result [facility] [address] [place] [address], * (ABNORMAL) Protime-INR (07/29/2024 12:57 PM EST) PT 14.8(H) 9.6 - 12.4 Seconds 07/29/2024 1:50 PM EST [facility] INR 1.4 0.9 - 1.1 07/29/2024 1:50 PM EST [facility] Comment:The optimal therapeu tic INR range for patients treated with Vitamin K antagonists (VKAS, e.g., Warfarin) is 2.0 to 3.5. Discuss the desired range with your doctor/care team. Blood Structure of peripheral vein / Unknown Venipuncture / Unknown 07/29/2024 12:57 PM EST 07/29/2024 1:32 PM EST Joey Duarte MD LAB BLOOD ORDERABLES María lee Result [facility] [address] [place] [address], * Varicella Zoster Antibody, IgG (07/29/2024 12:57 PM EST) Varicella Zoster Virus Antibody 15.80 S/CO 07/30/2024 5:10 AM EST [facility] Comment: ?Signal to Cut-off ? S/CO ?Interpretation [...] PM EST 07/29/2024 1:14 PM EST Narrative [facility] [place] - 07/30/2024 5:10 AM EST [facility] Received Date: Joey Duarte MD LAB BLOOD ORDERABLES María l Result [facility] [place] [address] [facility] [address], [place] [address], [place] [phone] [employer] [facility] [address] [facility] [address], [place] [address], [place] [phone] * (ABNORMAL) BUN (07/29/2024 12:57 PM EST) BUN 53(H) 7 - 23 mg/dL 07/29/2024 2:00 PM EST [facility] Blood Structure of peripheral vein / Unknown Venipuncture / Unknown 07/29/2024 12:57 PM EST 07/29/2024 1:29 PM EST Joey Duarte MD LAB BLOOD ORDERABLES María l Result [facility] [address] [place] [address], [place] * ALT (07/29/2024 12:57 PM EST) ALT 13 10 - 40 U/L 07/29/2024 2:00 PM EST [facility] Blood Structure of peripheral vein / Unknown Venipuncture / Unknown 07/29/2024 12:57 PM EST 07/29/2024 1:29 PM EST Joey Duarte MD LAB BLOOD ORDERABLES María l Result [facility] [address] [place] [address], [place] * AST (07/29/2024 12:57 PM EST) AST 22 10 - 40 U/L 07/29/2024 2:00 PM EST [facility] Blood Structure of peripheral vein / Unknown Venipuncture / Unknown 07/29/2024 12:57 PM EST 07/29/2024 1:29 PM EST Joey Duarte MD LAB BLOOD ORDERABLES María l Result Performing Organization Address [facility]/ZIP Co de Phone Number [facility] [address] [place] [address], [place] * PSA (07/29/2024 12:57 PM EST) PSA 0.85 <=4.00 ng/mL 07/29/2024 2:15 PM EST [facility] Comment: The total PSA value from this assay system is standardized against the WHO standard. ??The test result will be slightly lower (< 3 %) when compared to the equimolar-standardized total PSA([place]a [place]). ??Comparison of Serial PSA results should be [...] ORDERABLES María l Result Performing Organization Address City/[facility]/ZIP Co de Phone Number [facility] [address] [place] [address], [place] * Phosphorus (07/29/2024 12:57 PM EST) Phosphorus 4.5 2.5 - 4.5 mg/dL 07/29/2024 2:00 PM EST [facility] Blood Structure of peripheral vein / Unknown Venipuncture / Unknown 07/29/2024 12:57 PM EST 07/29/2024 1:29 PM EST Joey Duarte MD LAB BLOOD ORDERABLES María l Result Performing Organization Address City/[facility]/ZIP Co de Phone Number [facility] [address] [place] [address], * (ABNORMAL) Hemoglobin A1c (07/29/2024 12:57 PM EST) Hemoglobin A1C 6.7(H) <5.7 % of total Hgb 07/30/2024 1:59 AM EST [facility] Comment: For someone without known diabetes, a [...] (MG/DL) 146 mg/dL 07/30/2024 1:59 AM EST [facility] eAG (MMOL/L) 8.1 mmol/L 07/30/2024 1:59 AM EST [facility] Blood Structure of peripheral vein / Unknown Venipuncture / Unknown 07/29/2024 12:57 PM EST 07/29/2024 1:32 PM EST Narrative [facility] [place] - 07/30/2024 1:59 AM EST [facility] Received Date: Joey Duarte MD LAB BLOOD ORDERABLES María l Result [facility] [address] [facility] [address], [place] [address], [place] [phone] [employer] [facility] [address] [facility] [address], [place] [address], [place] [phone] * (ABNORMAL) Creatinine (07/29/2024 12:57 PM EST) Creatinine 4.54(H) 0.60 - 1.30 mg/dL 07/29/2024 2:00 PM EST [facility] eGFR 14(L) >=60 mL/min/1 .73m2 07/29/2024 2:00 PM EST [facility] Comment:The estimated glomer ular [...] ORDERABLES María l Result Performing Organization Address City/[facility]/ZIP Co de Phone Number [facility] [address] [place] [address], * Calcium (07/29/2024 12:57 PM EST) Calcium 8.6 8.6 - 10.5 mg/dL 07/29/2024 2:00 PM EST [facility] Blood Structure of peripheral vein / Unknown Venipuncture / Unknown 07/29/2024 12:57 PM EST 07/29/2024 1:29 PM EST Joey Duarte MD LAB BLOOD ORDERABLES María l Result [facility] [address] [place] [address], [place] * Bilirubin, Direct (07/29/2024 12:57 PM EST) Bilirubin, Direct 0.3 <=0.4 mg/dL 07/29/2024 2:00 PM EST [facility] Blood Structure of peripheral vein / Unknown Venipuncture / Unknown 07/29/2024 12:57 PM EST 07/29/2024 1:29 PM EST Joey Duarte MD LAB BLOOD ORDERABLES María l Result [facility] [address] [place] [address], [place] * Bilirubin, Total (07/29/2024 12:57 PM EST) Bilirubin, Total 0.5 0.2 - 1.2 mg/dL 07/29/2024 2:00 PM EST [facility] Blood Structure of peripheral vein / Unknown Venipuncture / Unknown 07/29/2024 12:57 PM EST 07/29/2024 1:29 PM EST Joey Duarte MD LAB BLOOD ORDERABLES María l Result [facility] [address] [place] [address], [place] * Albumin (07/29/2024 12:57 PM EST) Albumin 4.3 3.5 - 5.2 g/dL 07/29/2024 2:00 PM EST [facility] Blood Structure of peripheral vein / Unknown Venipuncture / Unknown 07/29/2024 12:57 PM EST 07/29/2024 1:29 PM EST Joey Duarte MD LAB BLOOD ORDERABLES María l Result [facility] [address] [place] [address], from Last 3 Months Insurance [facility] AARP Member Subscriber Plan / Payer (Ef fective 2023-Present) Name:Lewis Snyder Relation to Subscriber:Self Name:Lewis Snyder Payer ID:[id number] (NAIC) Type:Not on file Address: [address] [facility] [employer] AARP Member Subscriber Plan / Payer (Ef fective 2023-Present) Name:Lewis Snyder Relation to Subscriber:Self Name:Lewis Snyder Payer ID:[id number] (NAIC) Type:Not on file [address] Advance Directives Documents on File Type Date Recorded Patient College Instructor Expl [facility] Care Proxy 08/05/2024 4:14 PM 07-16 Care Teams Language Tutor Relationship Specialty Start Date End Date Ayaka Salgado [address] [place] [address] PCP - General Internal Medicine 07/29/24
--- OUTSIDE RECORDS SUMMARY | 2024-10-05 11:12 | XMS_ITS ---
Author Organization [facility] Address [address] [place] [address] 7 [place] [address] Care Team Providers Care Garage Supervisor Name Role Phone Ayaka Salgado MD Primary Care Provider [phone] DYER HELPER Status:Enrolled (Active) Start date:12/20/2022 Enrollment date:12/20/2022 Case Team Name Relationship Phone Alana Hook RN Registered Nurse(Responsible S taff) Continued Care and Services Coordination
--- OUTSIDE RECORDS SUMMARY | 2024-10-05 11:12 | XMS_ITS | Encounter Summary ---
Author Organization [employer] Address [address] [facility] 7 [place] [address] Care Team Providers Care Pie Dough Roller Name Role Phone Ayaka Salgado MD Primary Care Provider [phone] Reason for Visit * Reason Onset Date Comments Prior Authorization 10/04/2022 Encounter Details Date Type Department Care Team ([facility] st Contact Info) Description 10/04/2022 Telephone [facility] MEDICINE [address] [place] [address] Ayaka Salgado MD 505 [facility] [place] [phone] Prior Authorization Social History Tobacco Use Types Packs/Day Years [...] suspected to have Coronavirus/COVID-19? No / Unsure 09/24/2022 9:13 AM EST documented as of this encounter Miscellaneous Notes * Telephone Encounter - Cecilia Elvin - 10/08/2022 10:41 AM EST Tc from patient re calling in regards to PA for medication Lidocaine 5% patches. [facility] number . * Telephone Encounter - Milka Ibanez - 10/04/2022 3:42 PM EST Tc from pt requesting status update on lidocaine patches, States needs a PA. Please contact at [phone] documented in this encounter Plan of Treatment Upcoming Encounters Date Type Department Care Team (Late st Contact Info) Description 11/24/2024 9:00 AM EDT Clinical Support [facility] MED & PEDS [address] [place] [address] Alana Hook RN [address] [place] [address] documented as of this encounter Visit Diagnoses Not on filedocumented in this encounter Additional Health Concerns Assessment Noted Time PHQ-9 Depression Total Score: 7 08/29/20 22 10:26 AM EST documented as of this encounter Care Teams Pie Dough Roller Relationship Specialty Start Date End Date Ayaka Salgado MD [address] [place] [address] PCP - General Internal Medicine 09/15/18 documented as of this encounter
--- OUTSIDE RECORDS SUMMARY | 2024-10-05 11:12 | XMS_ITS | Encounter Summary ---
Author Organization [employer] Address [address] [facility] 7 [place] [address] Care Team Providers Care Paramedic Supervisor Name Role Phone Ayaka Salgado MD Primary Care Provider [phone] Reason for Visit * Reason Comments Med Refill Encounter Details Date Type Department Care Team (Late st Contact Info) Description 10/07/2022 Refill [facility] [address] [place] [address] Ayaka Salgado MD [address] [facility] [address] [place] [address] Primary osteoarthritis involving multiple joints Social History [...] 9:00 AM EDT Clinical Support [facility] MED & PEDS [address] [place] [address] Alana Hook RN 505 [place] [address] documented as of this encounter Visit Diagnoses Diagnosis Primary osteoarthritis involving multiple joints documented in this encounter Additional Health Concerns Assessment Noted Time PHQ-9 Depression Total Score: 7 08/29/20 22 10:26 AM EST documented as of this encounter Care Teams Paramedic Supervisor Relationship Specialty Start Date End Date Ayaka Salgado MD [address] [place] [address] PCP - General Internal Medicine 09/15/18 documented as of this encounter
--- OUTSIDE RECORDS SUMMARY | 2024-10-05 11:12 | XMS_ITS | Encounter Summary ---
Author Organization [facility] Address [address] [facility] 7 [place] [address] Care Team Providers Care Echocardiography Radiology Technologist Name Role Phone Ayaka Salgaod MD Primary Care Provider [phone] Reason for Visit * Reason Onset Date Comments r/s appt 08/23/2022 Encounter Details Date Type Department Care Team (Late st Contact Info) Description 08/23/2022 Telephone [facility] MEDICINE [address] [place] [address] Ayaka Salgado MD [address] [facility] [place] [address] r/s appt Social History Tobacco Use Types Packs/Day Years Used Date Smoking Tobacco: Never Assessed Sex and Gender Information Value Date Recorded Sex Assigned at Male 07/15/2022 10:21 AM EDT Legal Sex Male 10:21 AM EDT Gender Identity Male 07/15/2022 10:21 AM EDT Sexual Orientation Straight 07/15/2022 10 :21 AM EDT documented as of this encounter Miscellaneous Notes * Telephone Encounter - Milka Ibanez - 08/23/2022 8:39 AM EST Tc from pt requesting to r/s COT RN appt scheduled for 08/23/22 @ 9am, appt has been canceled. Please contact at [phone] documented in this encounter Plan of Treatment Upcoming Encounters Date Type Department Care Team (Late Contact Info) Description 11/24/2024 9:00 AM EDT Clinical Support [facility] MED & PEDS [address] [place] [address] Alana Hook, RACHELLE [address] [place], [place] [id number] documented as of this encounter Visit Diagnoses Not on filedocumented in this encounter Care Teams Echocardiography Radiology Technologist Relationship Specialty Start Date End Date Ayaka Salgado MD [address] [place] [address] PCP - General Internal Medicine 09/15/18 documented as of this encounter
--- OUTSIDE RECORDS SUMMARY | 2024-10-05 11:12 | XMS_ITS | Encounter Summary ---
Author Organization [facility] [address] [facility] [address] [place] [address] Phone Care Team Providers Care Batch Maker Name Role Phone Jayme Salgado MD Primary Care Provider [phone] Reason for Visit * Reason Comments Med Refill Encounter Details Date Type Department Care Team (Late st Contact Info) Description 04/28/2023 Refill [facility] [address] [place] [place] [id number] Mumtaz Childress MD [address] [facility] [address] [place] [address] Type 2 diabetes mellitus with diabetic chronic kidney disease (HCC); Hypertensive chronic kidney disease, unspecified, with chronic kidney disease stage I through stage IV, or unspecified; Type 2 diabetes mellitus with diabetic nephropathy (HCC); Chronic kidney disease stage 4 (HCC) Social History Tobacco Use Types Packs/Day Years Used Date Smoking Tobacco: Every Day Cigarettes Smokeless Tobacco: Never Alcohol Use Standard Drinks/Week Comments Yes 0 (1 standard drink = 0.6 oz pure alcohol) Alcoholic Drinks/day: Occasional social drink Sex and Gender Information Value Date Recorded Sex Assigned at Not on file Legal Sex Male 5:04 PM EST Gender Identity Not on file Sexual Orientation Not on file documented as of this encounter Plan of Treatment Not on file documented as of this encounter Visit Diagnoses Diagnosis Type 2 diabetes mellitus with diabetic chronic kidney disease (HCC) Hypertensive chronic kidney disease, unspecified, with chronic kidney disease stage I through stage IV, or unspecified Type 2 diabetes mellitus with diabetic nephropathy (HCC) Chronic kidney disease stage 4 (HCC) documented in this encounter Care Teams Batch Maker Relationship Specialty Start Date End Date Jayme Salgado MD [address] [place] [address] PCP - General 09/25/20 documented as of this encounter
--- OUTSIDE RECORDS SUMMARY | 2024-10-05 11:12 | XMS_ITS | Clinical Summary ---
Author Organization [facility] Address [address] [facility] [address] [place] [address] Phone Care Team Providers Care Direct Marketing Representative Name Role Phone Jayme Salgado MD Primary Care Provider [phone] Allergies Active Allergy Reactions Criticality Noted Date Comments Atenolol-Chlorthalidone Other (see comments) Metformin 07/19/2021 Trazodone 07/19/2021 Medications cholecalciferol (VITAMIN D-3) 25 MCG (1000 UT) tablet Take 1 tablet by mouth every other day 07/10/2011 Active cloNIDine (CATAPRES) 0.3 MG tablet Take 0.2 mg by mouth in the morning and 0.2 mg at noon and 0.2 mg in the evening. 05/25/2021 Active glimepiride (AMARYL) 1 MG tablet Take 1 mg by mouth 1 (one) time each day 04/23/2021 Active hydrALAZINE 100 MG tablet Take 100 mg by mouth 3 (three) times a day with meals 05/17/2021 Active labetalol (NORMODYNE) 200 MG tablet Take 400 mg by mouth every 12 (twelve) hours 06/05/2021 Active losartan (COZAAR) 100 MG tablet Take 100 mg by mouth 1 (one) time each day 04/01/2021 Active oxyCODONE-acetam inophen (PERCOCET) 5-325 MG per tablet Take 1 tablet by mouth every 8 (eight) hours if needed 06/08/2021 Active simvastatin (ZOCOR) 20 MG tablet Take 20 mg by mouth at bed time at bedtime 05/13/2021 Active Januvia 50 MG tablet Take 25 mg by mouth 1 (one) time each day 04/02/2021 Active zolpidem (AMBIEN) 10 MG tablet Take 1 tablet by mouth 1 (one) time each day Active lidocaine (LIDODERM) 5 % patch 05/29/2022 Active dexamethasone (DECADRON) 4 MG tablet Take 4 mg by mouth in the morning and 4 mg in the evening. Take with meals. Active bumetanide (BUMEX) 0.5 MG tablet TAKE 1 TABLET(0.5 MG) BY MOUTH EVERY DAY 30 tablet 2 12/02/2022 Active cinacalcet (SENSIPAR) 30 MG tabletIndication s:Type 2 diabetes mellitus with diabetic chronic kidney disease (HCC),Hypertensi ve chronic kidney disease, unspecified, with chronic kidney disease stage I through stage IV, or unspecified,Type 2 diabetes mellitus with diabetic nephropathy (HCC),Chronic kidney disease stage 4 (HCC) TAKE 1 TABLET(30 MG) BY MOUTH EVERY DAY 30 tablet 3 02/03/2023 Active calcitriol (Rocaltrol) 0.25 MCG capsule Take 1 capsule (0.25 mcg total) by mouth 1 (one) time each day 30 capsule 11 02/12/2023 Active cinacalcet (SENSIPAR) 30 MG tabletIndication s:Type 2 diabetes mellitus with diabetic chronic kidney disease (HCC),Hypertensi ve chronic kidney disease, unspecified, with chronic kidney disease stage I through stage IV, or unspecified,Type 2 diabetes mellitus with diabetic nephropathy (HCC),Chronic kidney disease stage 4 (HCC) TAKE 1 TABLET(30 MG) BY MOUTH EVERY DAY 30 tablet 3 04/28/2023 Active Active Problems Problem Noted Date Diagnosed Date Congestive heart failure 09/24/2022 Renal disorder due to type 2 diabetes mellitus 1 09/17/2020 Hypertensive renal disease 07/18/2021 Hyperparathyroidism 07/18/2021 Coronary arteriosclerosis 07/18/2021 Chronic kidney disease stage 3 07/18/2021 Chest pain 07/18/2021 Acute nontraumatic kidney injury 07/18/2021 Chronic obstructive pulmonary disease 05/22/2018 Edema of foot 02/24/2018 Type 2 diabetes mellitus 08/01/2015 Essential hypertension 11/14/2011 Arthropathy 11/14/2011 Acute bronchitis 11/14/2011 Pure hypercholesterolemia 06/06/2011 Immunizations Name Administration Dates Next Due Moderna SARS-COV-2 10/06/2020 Td 09/15/2005 Family History Medical History Relation Comments Diabetes Mother Hypertension Mother Relation Status Comments Father Mother Alive Social History Tobacco Use Types Packs/Day Years Used Date Smoking Tobacco: Every Day Cigarettes Smokeless Tobacco: Never Tobacco Cessation:Ready to Q uit: Not Asked; Counseling Given: Not Answered Alcohol Use Standard Drinks/Week [...] Sign Reading Time Taken Comments Blood Pressure 140/92 06/02/2023 2:59 PM EDT Pulse 67 06/02/2023 2:59 PM EDT Temperature - - Respiratory Rate - - Oxygen Saturation 98% 06/02/2023 2:59 PM EDT Inhaled Oxygen Concentration - - Weight 109 kg (240 lb) 06/02/2023 2:59 PM EDT Height 170.2 cm (5' 7 ) 06/02/2023 2:59 PM EDT Body Mass Index 37.59 06/02/2023 2:59 PM EDT Plan of Treatment Health Maintenance Due Date Last Done Comments Pneumococcal Vaccine: 65+ Years (1 of 2 - PCV) 12/09/1961 Colorectal Cancer Screening: Annual FOBT 2006 Colorectal Cancer Screening: Colonoscopy 2006 Colorectal Cancer Screening: Sigmoidoscopy 2006 Diabetes: Ophthalmology Exam 10/16/2020 Diabetes: Pedal Pulse Checked 10/16/2020 Diabetes: Sensory Foot Exam 10/16/2020 Diabetes: Visual Foot Exam 10/16/2020 Diabetes: Hemoglobin A1C 05/27/2023 023, 10/10/2022, 09/24/2022 Influenza Vaccine (#1) 2024 Hepatitis B Vaccine Aged Out No longe r eligible based on patient's age to complete this topic Insurance [facility] MEDICARE [facility] MEDICARE Care Teams Direct Marketing Representative Relationship Specialty Start Date End Date Jayme Salgado MD [address] [place], [place] [address]Dee [place] PCP - General 09/25/20
--- OUTSIDE RECORDS SUMMARY | 2024-10-05 11:12 | XMS_ITS | Encounter Summary ---
Author Organization [facility] Address [address] [place] [address] Care Team Providers Care Roll Machine Operator Name Role Phone Ayaka Salgado Primary Care Provider [phone] Encounter Details Date Type Department Care Team (Late st Contact Info) Description 07/29/2024 Orders Only [facility] XRay [address] [place], [place] [phone] Waqas Garnett MD [address] [place], [place] [phone] Social History Tobacco Use Types Packs/Day Years [...] on filedocumented in this encounter Care Teams Roll Machine Operator Relationship Specialty Start Date End Date Ayaka Salgado [address] [place] [address] PCP - General Internal Medicine 07/29/24 documented as of this encounter
== END 2024-10-05 10:14 | disposition home or self-care (01) ==
PROVIDERS: PCP Internal Medicine; Visit Provider Internal Medicine Hypertension Specialist
DX: I12.9 Hypertensive chronic kidney disease with stage 1 through stage 4 chronic kidney disease, or unspecified chronic kidney disease (principal); N18.4 Chronic kidney disease, stage 4 (severe); I50.32 Chronic diastolic (congestive) heart failure; E66.9 Obesity, unspecified; E21.3 Hyperparathyroidism, unspecified; D64.9 Anemia, unspecified; N40.1 Benign prostatic hyperplasia with lower urinary tract symptoms
CPT/HCPCS: 99214

== ENCOUNTER 2024-11-03 08:56 | Outpatient (REF) | payer MEDICARE, SELFPAY ==
--- OUTSIDE RECORDS SUMMARY | 2024-11-03 09:04 | XMS_ITS | Encounter Summary ---
Author Organization [employer] Address [address] [facility] 7t [place] [address] Care Team Providers Care Assistant Football Coach Name Role Phone Ayaka Salgado MD Primary Care Provider [phone] Encounter Details Date Type Department Care Team ([facility] st Contact Info) Description 08/20/2024 Orders Only [facility] MED & PEDS [address] [place] [address] Ayaka Salgado MD [address] [place] [address] Social History Tobacco Use Types Packs/Day Years [...] Care Team (Late st Contact Info) Description 11/22/2024 11:00 AM EDT Office Visit [facility] MED & PEDS [address] [place] [address] Ayaka Salgado MD [address] [place] [address] 11/24/2024 9:00 AM EDT Clinical Support [facility] MED & PEDS [address] [place] [address] Alana Hook, RACHELLE [address] [place] [address] documented as of this encounter Visit Diagnoses Not on filedocumented in this encounter Additional Health Concerns Assessment Noted Time PHQ-9 Depression Total Score: 7 08/29/20 22 10:26 AM EST documented as of this encounter Care Teams Assistant Football Coach Relationship Specialty Start Date End Date Ayaka Salgado MD [address] [place] [address] PCP - General Internal Medicine 09/15/18 documented as of this encounter
--- OUTSIDE RECORDS SUMMARY | 2024-11-03 09:04 | XMS_ITS | Referral Summary ---
Author Organization [facility] Address [address] [place] [address] Care Team Providers Care Associate Director Of Sales Name Role Phone Ayaka Salgado Primary Care Provider Encounters Date Type Department Care Team Description 09/17/2024 Telephone [facility] Transplant Department [address] [place], [place] [phone] Shima Springer RN 09/13/2024 Telephone [facility] Transplant Department [address] [place], [place] [phone] Shima Springer, RN 08/27/2024 Telephone [facility] Transplant Department [address] [place], [place] [phone] Shima Springer, RN from Last 3 Months Allergies Active Allergy [...] Not on file Procedures * Due to [place] state law, this organization might not be sharing negative HIV tests. Procedure Name Priority Date/Time Associated Diagnosis Comments HEPATITIS C ANTIBODY W/REFLEX TO HCV RNA, [...] with long-term current use of insulin (HCC) CBC AUTO DIFFERENTIAL Routine 07/29/2024 12:57 PM EST Pre-transplant evaluation for end stage renal disease Chronic kidney disease, stage IV (severe) (HCC) PHOSPHORUS Routine 07/29/2024 12:57 PM EST Pre-transplant evaluation for end stage renal disease Chronic kidney disease, stage IV (severe) (HCC) from Last 3 Months or Most Recently Relevant to Health Maintenance Results * Due to [place] state law, this organization might not be sharing negative HIV tests. * (ABNORMAL) CBC Auto Differential (07/29/2024 12:57 [...] 0.0 /100 WBCs 07/29/2024 1:35 PM EST [facility] nRBC # <0.01 <0.01 10*3/uL 07/29/2024 1:35 PM EST [facility] Blood Structure of peripheral vein / Unknown Venipuncture / Unknown 07/29/2024 12:57 PM EST 07/29/2024 1:29 PM EST us Joey Duarte MD LAB BLOOD ORDERABLES María l Result [facility] [address] [place] [address], * Hepatitis C Antibody w/Reflex to PCR (07/29/2024 12:57 PM EST) Hepatitis C Antibody NON-REACT [place]ORD NON-REACT [place]ORD 07/30/2024 3:03 AM EST [facility] Comment: HCV antibody was non-reactive. There is no laboratory evidence of HCV infection. In most cases, no further action is required. However, if recent HCV exposure is suspected, a test for HCV RNA (test code 60693) is suggested. For additional information please refer to http://education.[employer]/faq/BCN15e6 (This link is being provided for informational/ educational purposes only.) Blood Structure of peripheral vein / Unknown Venipuncture / Unknown 07/29/2024 12:57 PM EST 07/29/2024 1:32 PM EST Narrative [facility] 07/30/2024 3:03 AM EST [facility] Received Date: Joey Duarte MD LAB BLOOD ORDERABLES María l Result [facility] [address] [facility] [address] [facility], [place] [address], [place] [phone] [facility] [address] [facility] [address] [facility], [place] [address], [place] [phone] * Phosphorus (07/29/2024 12:57 PM EST) Pathologist [facility] Phosphorus 4.5 2.5 - 4.5 mg/dL 07/29/2024 2:00 PM EST [facility] Blood Structure of peripheral vein / Unknown Venipuncture / Unknown 07/29/2024 12:57 PM EST 07/29/2024 1:29 PM EST Joey Duarte MD LAB BLOOD ORDERABLES María l Result [facility] [address] [place] [address], * (ABNORMAL) Hemoglobin A1c (07/29/2024 12:57 PM EST) Hemoglobin A1C 6.7(H) <5.7 % of total Hgb 07/30/2024 1:59 AM EST [facility] Comment: For someone without known diabetes, a [...] (MG/DL) 146 mg/dL 07/30/2024 1:59 AM EST [facility] eAG (MMOL/L) 8.1 mmol/L 07/30/2024 1:59 AM EST [facility] Blood Structure of peripheral vein / Unknown Venipuncture / Unknown 07/29/2024 12:57 PM EST 07/29/2024 1:32 PM EST [employer] - 07/30/2024 1:59 AM EST [facility] Received Date: Joey Duarte MD LAB BLOOD ORDERABLES María l Result [facility] [address], [place] [address], [place] [phone] [facility] [address] 3[address] Floor, [place] [address], [place] [phone] from Last 3 Months or Most Recently Relevant to Health Maintenance Insurance [facility] MCR REPLACE AARP [facility] [place] [id number] [facility] MCR REPLACE AARP [facility] [place] [id number] Advance Directives Documents on File Type Date Recorded Patient Grip Wrapper Expl [facility] Health Care Proxy 08/05/2024 4:14 PM 11-1 Care Teams Associate Director Of Sales Relationship Specialty Start Date End Date Ayaka Salgado [address] [place] [address] [place] [address] PCP - General Internal Medicine 07/29/24
--- OUTSIDE RECORDS SUMMARY | 2024-11-03 09:04 | XMS_ITS | Encounter Summary ---
Author Organization [employer] Address [address] [place] [address] 7 [place] [address] Care Team Providers Care Assistant Professor Of Archaeology Name Role Phone Ayaka Salgado MD Primary Care Provider [phone] Reason for Visit * Reason Comments Med Refill Encounter Details Date Type Department Care Team ([facility] Contact Info) Description 02/24/2023 Refill [facility] CHC MED & PEDS [address] [place] [address] Ayaka Salgado MD [address] [place] [address] Social History Tobacco Use Types Packs/Day Years [...] Upcoming Encounters Date Type Department Care Team ([facility] st Contact Info) Description 11/22/2024 11:00 AM EDT Office Visit [facility] MED & PEDS [address] [place] [address] Ayaka Salgado MD [address] [place] [address] 11/24/2024 9:00 AM EDT Clinical Support [facility] MED & PEDS [address] [place] [address] Alana Hook, RACHELLE [address] [place] [address] documented as of this encounter Visit Diagnoses Not on filedocumented in this encounter Additional Health Concerns Assessment Noted Time PHQ-9 Depression Total Score: 7 08/29/20 22 10:26 AM EST documented as of this encounter Care Teams Assistant Professor Of Archaeology Relationship Specialty Start Date End Date Ayaka Salgado MD [address] [place] [address] PCP - General Internal Medicine 09/15/18 documented as of this encounter
--- OUTSIDE RECORDS SUMMARY | 2024-11-03 09:04 | XMS_ITS | Clinical Summary ---
Author Organization [facility] Address [address] [place] [address] Care Team Providers Care Director Of Player Personnel Name Role Phone DamianAyaka Primary Care Provider [...] Type Department Care Team Description 09/17/2024 Telephone [facility] Transplant Department [address] [place] [address] Shima Springer RN 09/13/2024 Telephone [facility] Transplant Department [address] [place] [address] Shima Springer RN 08/27/2024 Telephone [facility] Transplant Department [address] [place] [address] Shima Springer, RN from Last 3 Months Social History Tobacco [...] Fit Test 1957 PTH 1957 Sigmoidoscopy 1957 Ophthalmology Exam 12/09/1967 Urine Microalbumin 12/09/1967 Pneumococcal Vaccine: 50+ Years (1 of 2 - PCV) 1976 DTaP,Tdap,and Td Vaccines (1 - Tdap) 09/16/2005 [...] Follow-Up 09/15/2024 Health Care Proxy Review 09/15/2024 Social Drivers of Health Annual Screening 09/15/2024 Hemoglobin A1C 01/26/2025 07/29/2024, 07/12/2024, 10/01/2023 Hemoglobin 07/29/2025 07/29/2024 Phosphorus 07/29/2025 07/29/2024 CKD: Referral to Nephrology Completed 07/29/2024 CKD: Referral to Nutrition Completed 07/29/2024 Hepatitis C Screening Completed 07/29/2024 Hepatitis B Vaccines Aged Out No long er eligible based on patient's age to complete this topic Procedures * Due to [place] [employer] law, this organization might not be sharing [...] to Health Maintenance Results * Due to [place] [employer] law, this organization might not be sharing [...] - 7.80 10*3/uL 07/29/2024 1:35 PM EST [facility] Immature Grans # <0.03 <=0.03 10*3/uL 07/29/2024 1:35 PM EST [facility] Lymphocyte # 0.90 0.85 - 3.90 10*3/uL 07/29/2024 1:35 PM EST [facility] Monocyte # 0.40 0.20 - 0.95 10*3/uL 07/29/2024 1:35 PM EST [facility] Eosinophil # 0.40 0.02 - 0.50 10*3/uL 07/29/2024 1:35 PM EST [facility] Basophil # <0.03 0.00 - 0.20 10*3/uL 07/29/2024 1:35 PM EST [facility] nRBC % 0.0 /100 WBCs 07/29/2024 1:35 PM EST [facility] nRBC # <0.01 <0.01 10*3/uL 07/29/2024 1:35 PM EST [facility] Blood Structure of peripheral vein / Unknown Venipuncture / Unknown 07/29/2024 12:57 PM EST 07/29/2024 1:29 PM EST us Joey Duarte MD LAB BLOOD ORDERABLES María l Result [facility] [address] [place] [address], * Hepatitis C Antibody w/Reflex to PCR (07/29/2024 12:57 PM EST) Hepatitis C Antibody NON-REACT STANFORD NON-REACT STANFORD 07/30/2024 3:03 AM EST [email or web address] [facility] Comment: HCV antibody was non-reactive. There is no laboratory evidence of HCV infection. In most cases, no further action is required. However, if recent HCV exposure is suspected, a test for HCV RNA (test code 53859) is suggested. For additional information please refer to http://education.[employer]/faq/ELJ57o1 (This link is being provided for informational/ educational purposes only.) Blood Structure of peripheral vein / Unknown Venipuncture / Unknown 07/29/2024 12:57 PM EST 07/29/2024 1:32 PM EST Narrative [facility] 07/30/2024 3:03 AM EST [facility] Received Date: Joey Duarte MD LAB BLOOD ORDERABLES María l Result Performing Organization Address City/[facility] [address]/ZIP Co de Phone Number [facility] [address], [place] [address], [email or web address] [address], [place] [address], [place] [phone] * Phosphorus (07/29/2024 12:57 PM EST) Phosphorus 4.5 2.5 - 4.5 mg/dL 07/29/2024 2:00 PM EST [facility] Blood Structure of peripheral vein / Unknown Venipuncture / Unknown 07/29/2024 12:57 PM EST 07/29/2024 1:29 PM EST Joey Duarte MD LAB BLOOD ORDERABLES María l Result [facility] [address] [place] [address], * (ABNORMAL) Hemoglobin A1c (07/29/2024 12:57 PM EST) Hemoglobin A1C 6.7(H) <5.7 % of total Hgb 07/30/2024 1:59 AM EST [facility] Comment: For someone without known diabetes, a [...] (MG/DL) 146 mg/dL 07/30/2024 1:59 AM EST [facility] eAG (MMOL/L) 8.1 mmol/L 07/30/2024 1:59 AM [employer] Blood Structure of peripheral vein / Unknown Venipuncture / Unknown 07/29/2024 12:57 PM EST 07/29/2024 1:32 PM EST [employer] [facility] 07/30/2024 1:59 AM EST [facility] Received Date: Joey Duarte MD LAB BLOOD ORDERABLES María l Result [facility] [address] [facility] 3rd Floor, [place] [address], [facility] [address] [facility] 3rd Floor, [place] [address], from Last 3 Months or Most Recently Relevant to Health Maintenance Insurance [facility] [place] [address] [facility] Advance Directives Documents on File Type Date Recorded Patient Metal Tile Lather Expl anation Health Care Proxy 08/05/2024 4:14 PM 07-16 Care Teams Director Of Player Personnel Relationship Specialty Start Date End Date Ayaka Salgado [address] [place] [address] [place] [id number] PCP - General Internal Medicine 07/29/24
--- OUTSIDE RECORDS SUMMARY | 2024-11-03 09:04 | XMS_ITS | Encounter Summary ---
Author Organization [employer] Address [address] [facility] 7 [place] [address] Care Team Providers Care Machine Operator Cane Cutter Name Role Phone Ayaka Salgado MD Primary Care Provider [phone] Reason for Visit * Reason Onset Date Comments Med Refill 09/06/2024 Encounter Details Date Type Department Care Team ([facility] st Contact Info) Description 09/06/2024 Telephone [facility] MEDICINE [address] [place] [address] Ayaka Salgado MD 505 [facility] [place] [address] Med Refill Social History Tobacco Use Types [...] 8:56 AM EST Medication was sent to [facility] #[id number] on 08/09/24 with 3 refills. * Telephone Encounter - Cleopatra Ortiz - 09/06/2024 8:53 AM EST TC from pt requesting medication refill. Medications needing refill : labetalol (Normodyne) 200 MG tablet To be sent to: [facility][id number] - [place] - [address] [facility] documented in this encounter Plan of Treatment Upcoming Encounters Date Type Department Care Team ([facility] st Contact Info) Description 11/22/2024 11:00 AM EDT Office Visit [facility] MED & PEDS 505 [facility] [place] [address] Ayaka Salgado MD 505 [facility] [place], [place] [id number] 11/24/2024 9:00 AM EDT Clinical Support [facility] CH[facility] MED & PEDS [address] [place] [address] Alana Hook, RACHELLE [address] [place] [address] documented as of this encounter Visit Diagnoses Not on filedocumented in this encounter Additional Health Concerns Assessment Noted Time PHQ-9 Depression Total Score: 7 08/29/20 22 10:26 AM EST documented as of this encounter Care Teams Machine Operator Cane Cutter Relationship Specialty Start Date End Date Ayaka Salgado MD [address] [place] [address] PCP - General Internal Medicine 09/15/18 documented as of this encounter
--- OUTSIDE RECORDS SUMMARY | 2024-11-03 09:04 | XMS_ITS | Encounter Summary ---
Author Organization [facility] Address [address] [place] [address] Care Team Providers Care Numerical Control Machine Tool Operator Name Role Phone Ayaka Salgado Primary Care Provider Encounter Details Date Type Department Care Team (Late st Contact Info) Description 07/29/2024 Orders Only [facility] XRay [address] [place], [place] [phone] Waqas Garnett MD [address] [place], [place] [phone] Social History Tobacco Use Types Packs/Day Years [...] on filedocumented in this encounter Care Teams Numerical Control Machine Tool Operator Relationship Specialty Start Date End Date Ayaka Salgado [address] [place] [address] PCP - General Internal Medicine 07/29/24 documented as of this encounter
--- OUTSIDE RECORDS SUMMARY | 2024-11-03 09:04 | XMS_ITS ---
Author Organization [facility] Address [address] [place] [address] Care Team Providers Care Colorman Name Role Phone Ayaka Salgado Primary Care Provider Transplant Episode Kidney Candidate [facility] ([place], [place]) - [facility] Evaluation began on 07/29/2024 Marked as Active on 07/29/2024 Kidney CoordinatorShima Springer RN Email: N/A Scores Score Value Updated Exceptions/Reas ons CPRA Not available EPTS (Calc) 43 11/03/2024 [place] Organ Diagnosis Organ Primary Contributory Kidney Diabetes Mellitus - Type II Care Team Name Role Phone Fax Email Shima Springer RN Kidney Coordinator [phone] N/A Ross Baldwin Referring Physician [phone] N/A Events Pre-Transplant Referred: 07/19/2024 Evaluation began: 07/29/2024
--- OUTSIDE RECORDS SUMMARY | 2024-11-03 09:05 | XMS_ITS | Encounter Summary ---
Author Organization [employer] Address 75 [facility] 7 [place] [address] Care Team Providers Care Director News Name Role Phone Ayaka Salgado MD Primary Care Provider [phone] Reason for Visit * Reason Onset Date Comments Med Refill 08/09/2024 Encounter Details Date Type Department Care Team ([facility] st Contact Info) Description 08/09/2024 Telephone [facility] MEDICINE [address] [place] [address] Ayaka Salgado MD 505 [facility] [place] [address] Med Refill Social History Tobacco Use Types [...] 5-325 MG tablet To be sent to: [facility][id number] documented in this encounter Plan of Treatment Upcoming Encounters Date Type Department Care Team ([facility] st Contact Info) Description 11/22/2024 11:00 AM EDT Office Visit [facility] MED & PEDS [address] [place] [address] Ayaka Salgado MD [address] [place] [address] 11/24/2024 9:00 AM EDT Clinical Support [facility] MED & PEDS [address] [place] [address] Alana Hook RN 505 [place] [address] documented as of this encounter Visit Diagnoses Not on filedocumented in this encounter Additional Health Concerns Assessment Noted Time PHQ-9 Depression Total Score: 7 08/29/20 22 10:26 AM EST documented as of this encounter Care Teams Director News Relationship Specialty Start Date End Date Ayaka Salgado MD [address] [place] [address] PCP - General Internal Medicine 09/15/18 documented as of this encounter
--- OUTSIDE RECORDS SUMMARY | 2024-11-03 09:05 | XMS_ITS | Encounter Summary ---
Author Organization [employer] Address 75 [facility] 7 [place] [address] Care Team Providers Care Housekeeper Home Name Role Phone Ayaka Salgado MD Primary Care Provider [phone] Reason for Visit * Reason Onset Date Comments Med Refill 05/11/2024 Encounter Details Date Type Department Care Team ([facility] st Contact Info) Description 05/11/2024 Telephone [facility] MEDICINE 230 [place] [address] Ayaka Salgado MD 505 [facility] [place] [address] Med Refill Social History Tobacco Use Types [...] 5-325 MG tablet To be sent to: [facility] documented in this encounter Plan of Treatment Upcoming Encounters Date Type Department Care Team ([facility] st Contact Info) Description 11/22/2024 11:00 AM EDT Office Visit [facility] MED & PEDS [address] [place] [address] Ayaka Salgado MD 505 [place] [address] 11/24/2024 9:00 AM EDT Clinical Support [facility] MED & PEDS [address] [place] [address] Alana Hook RN 505 [place] [address] documented as of this encounter Visit Diagnoses Not on filedocumented in this encounter Additional Health Concerns Assessment Noted Time PHQ-9 Depression Total Score: 7 08/29/20 22 10:26 AM EST documented as of this encounter Care Teams Housekeeper Home Relationship Specialty Start Date End Date Ayaka Salgado MD [address] [place] [address] PCP - General Internal Medicine 09/15/18 documented as of this encounter
--- OUTSIDE RECORDS SUMMARY | 2024-11-03 09:05 | XMS_ITS | Encounter Summary ---
Author Organization [employer] [facility] Address 75 [facility] 7 [place] [address] Care Team Providers Care Vending Machine Operator Name Role Phone Ayaka Salgado MD Primary Care Provider [phone] Reason for Visit * Reason Onset Date Comments r/s appt 08/23/2022 Encounter Details Date Type Department Care Team (Late st Contact Info) Description 08/23/2022 Telephone [facility] MEDICINE [address] [place] [address] Ayaka Salgado MD 505 [facility] [place] [address] r/s appt Social History Tobacco Use Types [...] appt has been canceled. Please contact at [phone] documented in this encounter Plan of Treatment Upcoming Encounters Date Type Department Care Team (Late Contact Info) Description 11/22/2024 11:00 AM EDT Office Visit [facility] MED & PEDS [address] [place] [address] Ayaka Salgado MD [address] [place] [address] 11/24/2024 9:00 AM EDT Clinical Support [facility] MED & PEDS [address] [place] [address] Alana Hook RN 505 [place] [address] documented as of this encounter Visit Diagnoses Not on filedocumented in this encounter Care Teams Vending Machine Operator Relationship Specialty Start Date End Date Ayaka Salgado MD [address] [place] [address] PCP - General Internal Medicine 09/15/18 documented as of this encounter
--- OUTSIDE RECORDS SUMMARY | 2024-11-03 09:05 | XMS_ITS | Encounter Summary ---
Author Organization [email or web address] Address [address] [facility] [address] 7[address] [place] [address] Care Team Providers Care Supervisor Curing Room Name Role Phone Ayaka Salgado MD Primary Care Provider [phone] Encounter Details Date Type Department Care Team ([facility] st Contact Info) Description 06/25/2024 Orders Only [facility] CHC MED & PEDS [address] [place] [address] ProviderRan MD Social History Tobacco Use Types [...] Description 11/22/2024 11:00 AM EDT Office Visit [facility] MED & PEDS [address] [place] [address] Ayaka Salgado MD [address] [place] [address] 11/24/2024 9:00 AM EDT Clinical Support [facility] MED & PEDS [address] [place] [address] Alana Hook RN 505 [place] [address] documented as of this encounter Procedures Procedure Name Priority Date/Time Associated Diagnosis Comments DIABETES EYE EXAM Routine 05/04/2024 12:18 PM EDT documented in this encounter Results * Diabetes Eye Exam (05/04/2024 12:18 PM EDT) us Historical Provider HEALTH MAINTENANCE Final Result documented in this encounter Visit Diagnoses Not on filedocumented in this encounter Additional Health Concerns Assessment Noted Time PHQ-9 Depression Total Score: 7 08/29/20 22 10:26 AM EST documented as of this encounter Care Teams Supervisor Curing Room Relationship Specialty Start Date End Date Ayaka Salgado MD [address] [place] [address] PCP - General Internal Medicine 09/15/18 documented as of this encounter
--- OUTSIDE RECORDS SUMMARY | 2024-11-03 09:05 | XMS_ITS | Encounter Summary ---
Author Organization [employer] Address 75 [facility] 7t [place] [address] Care Team Providers Care Technology Officer Name Role Phone Ayaka Salgado MD Primary Care Provider [phone] Reason for Visit * Reason Comments Med Refill Encounter Details Date Type Department Care Team ([facility] st Contact Info) Description 06/15/2024 Refill [facility] MEDICINE [address] [place], [place] [phone] Lev Gentile MD 230 [place] [address] Chronic pruritus Social History Tobacco Use Types [...] [facility] MED & PEDS [address] [place] [address] Ayaka Salgado MD [address] [place] [address] 11/24/2024 9:00 AM EDT Clinical Support [facility] MED & PEDS [address] [place] [address] Alana Hook, RACHELLE [address] [place] [address] documented as of this encounter Visit Diagnoses Diagnosis Chronic pruritus documented in this encounter Additional Health Concerns Assessment Noted Time PHQ-9 Depression Total Score: 7 08/29/20 22 10:26 AM EST documented as of this encounter Care Teams Technology Officer Relationship Specialty Start Date End Date Ayaka Salgado MD [address] [place] [address] PCP - General Internal Medicine 09/15/18 documented as of this encounter
--- OUTSIDE RECORDS SUMMARY | 2024-11-03 09:05 | XMS_ITS | Encounter Summary ---
Author Organization [employer] Address [address] [place] [address] 7 [place] [address] Care Team Providers Care Emergency Registrar Name Role Phone Ayaka Salgado MD Primary Care Provider [phone] Reason for Visit * Reason Onset Date Comments Letter Accomodation 12/12/2022 Encounter Details Date Type Department Care Team ([facility] st Contact Info) Description 12/12/2022 Telephone [facility] CHC MED & PEDS [address] [place] [address] Ayaka Salgado MD [address] [place] [address] Letter Accomodation Social History Tobacco Use Types [...] hisPercocet. Advised message will be forwarded to [facility] nurse regarding his request. Pt verbalizes understanding. * Telephone Encounter - Abiel Mills - 12/12/2022 9:32 AM EDT Tc from pt requesting an Accomodation letter. Please contact pt at [phone] documented in this encounter Plan of Treatment Upcoming Encounters Date Type Department Care Team ([facility] st Contact Info) Description 11/22/2024 11:00 AM EDT Office Visit [facility] MED & PEDS [address] [place] [address] Ayaka Salgado MD [address] [place] [address] 11/24/2024 9:00 AM EDT Clinical Support [facility] MED & PEDS [address] [place] [address] Alana Hook, RACHELLE [address] [place] [address] documented as of this encounter Visit Diagnoses Diagnosis Congestive heart failure, unspecified HF chronicity, unspecified heart failure type (CMS/HCC) Primary osteoarthritis involving multiple joints documented in this encounter Additional Health Concerns Assessment Noted Time PHQ-9 Depression Total Score: 7 08/29/20 22 10:26 AM EST documented as of this encounter Care Teams Emergency Registrar Relationship Specialty Start Date End Date Ayaka Salgado MD [address] [place] [address] PCP - General Internal Medicine 09/15/18 documented as of this encounter
--- OUTSIDE RECORDS SUMMARY | 2024-11-03 09:05 | XMS_ITS | Encounter Summary ---
Author Organization [employer] Address 75 [facility] 7 [place] [address] Care Team Providers Care Rn Building Name Role Phone Ayaka Salgado MD Primary Care Provider [phone] Reason for Visit * Reason Onset Date Comments Prior Authorization 10/04/2022 Encounter Details Date Type Department Care Team ([facility] st Contact Info) Description 10/04/2022 Telephone [facility] MEDICINE [address] [place] [address] Ayaka Salgado MD 505 [facility] [place] [address] Prior Authorization Social History Tobacco Use Types [...] Miscellaneous Notes * Telephone Encounter - Cecilia Oconnor - 10/08/2022 10:41 AM EST Tc from patient re calling in regards to PA for medication Lidocaine 5% patches. [facility] number . * Telephone Encounter - Milka Ibanez - 10/04/2022 3:42 PM EST Tc from pt requesting status update on lidocaine patches, States needs a PA. Please contact at [phone] documented in this encounter Plan of Treatment Upcoming Encounters Date Type Department Care Team (Late st Contact Info) Description 11/22/2024 11:00 AM EDT Office Visit [facility] MED & PEDS [address] [place], [place] [phone] Ayaka Salgado MD 505 [place] [address] 11/24/2024 9:00 AM EDT Clinical Support [facility] MED & PEDS [address] [place] [address] Alana Hook, RACHELLE 505 [place], [place] [phone] documented as of this encounter Visit Diagnoses Not on filedocumented in this encounter Additional Health Concerns Assessment Noted Time PHQ-9 Depression Total Score: 7 08/29/20 22 10:26 AM EST documented as of this encounter Care Teams Rn Building Relationship Specialty Start Date End Date Ayaka Salgado MD [address] [place] [address] PCP - General Internal Medicine 09/15/18 documented as of this encounter
--- OUTSIDE RECORDS SUMMARY | 2024-11-03 09:05 | XMS_ITS | Encounter Summary ---
Author Organization [employer] Address 75 [facility] 7t [place] [address] Care Team Providers Care Computer Graphic Designer Name Role Phone Ayaka Salgado MD Primary Care Provider [phone] Encounter Details Date Type Department Care Team (Late st Contact Info) Description 10/11/2022 Orders Only [facility] MEDICINE [address] [place] [address] Ayaka Salgado MD [address] [facility] [place] [address] Congestive heart failure, unspecified HF chronicity, unspecified [...] Upcoming Encounters Date Type Department Care Team ([facility] st Contact Info) Description 11/22/2024 11:00 AM EDT Office Visit [facility] MED & PEDS [address] [place] [address] Ayaka Salgado MD [address] [place] [address] 11/24/2024 9:00 AM EDT Clinical Support [facility] MED & PEDS [address] [place] [address] Alana Hook RN 505 [place] [address] documented as of this encounter Visit Diagnoses Diagnosis Congestive heart failure, unspecified HF chronicity, unspecified heart failure type (CMS/HCC) Edema of foot Edema documented in this encounter Additional Health Concerns Assessment Noted Time PHQ-9 Depression Total Score: 7 08/29/20 22 10:26 AM EST documented as of this encounter Care Teams Computer Graphic Designer Relationship Specialty Start Date End Date Ayaka Salgado MD [address] [place] [address] PCP - General Internal Medicine 09/15/18 documented as of this encounter
--- OUTSIDE RECORDS SUMMARY | 2024-11-03 09:05 | XMS_ITS | Encounter Summary ---
Author Organization [employer] Address 75 [facility] 7 [place] [address] Care Team Providers Care Medical Device Sales Consultant Name Role Phone Ayaka Salgado MD Primary Care Provider [phone] Reason for Visit * Reason Onset Date Comments Nurse Triage 09/22/2023 Encounter Details Date Type Department Care Team ([facility] st Contact Info) Description 09/22/2023 Telephone [facility] MEDICINE [address] [place], [place] [phone] Ayaka Salgado MD 505 [facility] [place] [address] Nurse Triage Social History Tobacco Use Types [...] is requesting a refill for Guaifenesin however marketing writer does not seen script on file, states pt prescribed years ago for sinus. The caller accepted this outcome Please contact at [phone] documented in this encounter Plan of Treatment Upcoming Encounters Date Type Department Care Team (Late st Contact Info) Description 11/22/2024 11:00 AM EDT Office Visit [facility] MED & PEDS [address] [place] [address] Ayaka Salgado MD [address] [place] [address] 11/24/2024 9:00 AM EDT Clinical Support [facility] MED & PEDS [address] [place] [address] Alana Hook RN 505 [place] [address] documented as of this encounter Visit Diagnoses Not on filedocumented in this encounter Additional Health Concerns Assessment Noted Time PHQ-9 Depression Total Score: 7 08/29/20 22 10:26 AM EST documented as of this encounter Care Teams Medical Device Sales Consultant Relationship Specialty Start Date End Date Ayaka Salgado MD [address] [place] [address] PCP - General Internal Medicine 09/15/18 documented as of this encounter
--- OUTSIDE RECORDS SUMMARY | 2024-11-03 09:05 | XMS_ITS | Encounter Summary ---
Author Organization [employer] Address [address] [place] [address] 7 [place] [address] Care Team Providers Care Dye Stand Loader Name Role Phone Ayaka Salgado MD Primary Care Provider [phone] Reason for Visit * Reason Comments Med Refill Encounter Details Date Type Department Care Team ([facility] st Contact Info) Description 01/06/2023 Refill [facility] MED & PEDS [address] [place] [address] Ayaka Salgado MD 505 [place] [address] Primary osteoarthritis involving multiple joints Social History [...] Description 11/22/2024 11:00 AM EDT Office Visit [facility] MED & PEDS [address] [place] [address] Ayaka Salgado MD 505 [place] [address] 11/24/2024 9:00 AM EDT Clinical Support [facility] MED & PEDS [address] [place] [address] Alana Hook RN 505 [place] [address] documented as of this encounter Visit Diagnoses Diagnosis Primary osteoarthritis involving multiple joints documented in this encounter Additional Health Concerns Assessment Noted Time PHQ-9 Depression Total Score: 7 08/29/20 22 10:26 AM EST documented as of this encounter Care Teams Dye Stand Loader Relationship Specialty Start Date End Date Ayaka Salgado MD 505 [place] [address] PCP - General Internal Medicine 09/15/18 documented as of this encounter
--- OUTSIDE RECORDS SUMMARY | 2024-11-03 09:05 | XMS_ITS | Encounter Summary ---
Author Organization [employer] Address [address] [facility] 7t [place] [address] Care Team Providers Care Property Technician Name Role Phone Ayaka Salgado MD Primary Care Provider [phone] Encounter Details Date Type Department Care Team ([facility] st Contact Info) Description 04/29/2024 Telephone [facility] MEDICINE [address] [place] [address] Ayaka Salgado MD [address] [place] [address] Social History Tobacco Use Types Packs/Day Years [...] 10 MG tablet To be sent to: [id number] - [place], [place] - [address] [facility] [address] documented in this encounter Plan of Treatment Upcoming Encounters Date Type Department Care Team ([facility] st Contact Info) Description 11/22/2024 11:00 AM EDT Office Visit [facility] MED & PEDS 505 [place] [address] Ayaka Salgado MD 505 [place] [address] 11/24/2024 9:00 AM EDT Clinical Support [facility] MED & PEDS 505 [place] [address] Alana Hook RN 505 [place] [address] documented as of this encounter Visit Diagnoses Not on filedocumented in this encounter Additional Health Concerns Assessment Noted Time PHQ-9 Depression Total Score: 7 08/29/20 22 10:26 AM EST documented as of this encounter Care Teams Property Technician Relationship Specialty Start Date End Date Ayaka Salgado MD [address] [place] [address] PCP - General Internal Medicine 09/15/18 documented as of this encounter
--- OUTSIDE RECORDS SUMMARY | 2024-11-03 09:05 | XMS_ITS ---
Author Organization [facility] Address [address] [place] [address] 7 [place] [address] Care Team Providers Care Loss Prevention Investigator Name Role Phone Ayaka Salgado MD Primary Care Provider [phone] HEAD WAITER/WAITRESS BANQUET Status:Enrolled (Active) Start date:12/20/2022 Enrollment date:12/20/2022 Case Team Name Relationship Phone Alana Hook RN Registered Nurse(Responsible S taff) Continued Care and Services Coordination
--- OUTSIDE RECORDS SUMMARY | 2024-11-03 09:05 | XMS_ITS | Encounter Summary ---
Author Organization [employer] Address [address] [place] [address] 7t [place] [address] Care Team Providers Care Farm Helper Name Role Phone Ayaka Salgado MD Primary Care Provider [phone] Encounter Details Date Type Department Care Team (Late st Contact Info) Description 01/23/2023 Abstract [facility] [address] [place] [address] Ayaka Salgado MD 505 [place], [place] [id number] Social History Tobacco Use Types Packs/Day Years [...] Description 11/22/2024 11:00 AM EDT Office Visit [facility] MED & PEDS 505 [place] [address] Ayaka Salgado MD 505 [place] [address] 11/24/2024 9:00 AM EDT Clinical Support [facility] MED & PEDS 505 [place] [address] Alana Hook RN 505 [place] [address] documented as of this encounter Visit Diagnoses Not on filedocumented in this encounter Additional Health Concerns Assessment Noted Time PHQ-9 Depression Total Score: 7 08/29/20 22 10:26 AM EST documented as of this encounter Care Teams Farm Helper Relationship Specialty Start Date End Date Ayaka Salgado MD 505 [place] [address] PCP - General Internal Medicine 09/15/18 documented as of this encounter
--- OUTSIDE RECORDS SUMMARY | 2024-11-03 09:05 | XMS_ITS | Encounter Summary ---
Author Organization [employer] Address [address] [place] [address] 7 [place] [address] Care Team Providers Care Conservation Enforcement Officer Name Role Phone Ayaka Salgado MD Primary Care Provider [phone] Reason for Visit * Reason Onset Date Comments Med Refill 08/05/2024 Encounter Details Date Type Department Care Team ([facility] st Contact Info) Description 08/05/2024 Refill [facility] CH[facility] MED & PEDS [address] [place] [address] Ayaka Salgado MD 505 [place] [address] Back pain, unspecified back location, unspecified back [...] the past 12 months, has t he Social Strategy 1, gas, oil or water [employer] threatened to shut off services in your [...] 5-325 MG tablet To be sent to: [id number] - [place], [place] - [address] [facility] [address] documented in this encounter Plan of Treatment Upcoming Encounters Date Type Department Care Team (Late st Contact Info) Description 11/22/2024 11:00 AM EDT Office Visit [facility] MED & PEDS [address] [place] [address] Ayaka Salgado MD 505 [place] [address] 11/24/2024 9:00 AM EDT Clinical Support [facility] MED & PEDS [address] [place] [address] Alana Hook, RACHELLE 505 [place] [address] documented as of this encounter Visit Diagnoses Diagnosis Back pain, unspecified back location, unspecified back pain laterality, unspecified chronicity- Primary documented in this encounter Additional Health Concerns Assessment Noted Time PHQ-9 Depression Total Score: 7 08/29/20 22 10:26 AM EST documented as of this encounter Care Teams Conservation Enforcement Officer Relationship Specialty Start Date End Date Ayaka Salgado MD 505 [place] [address] PCP - General Internal Medicine 09/15/18 documented as of this encounter
--- OUTSIDE RECORDS SUMMARY | 2024-11-03 09:05 | XMS_ITS | Encounter Summary ---
Author Organization [employer] Address [address] [place] [address] 7t [place] [address] Care Team Providers Care Amusement Ride Inspector Name Role Phone Ayaka Salgado MD Primary Care Provider [phone] Encounter Details Date Type Department Care Team (Late st Contact Info) Description 02/19/2023 Abstract [facility] [address] [place] [address] Ayaka Salgado MD 505 [place], [place] [id number] Social History Tobacco Use Types Packs/Day Years [...] 11/22/2024 11:00 AM EDT Office Visit [facility] MED & PEDS 505 [place] [address] Ayaka Salgado MD [address] [place] [address] 11/24/2024 9:00 AM EDT Clinical Support [facility] MED & PEDS [address] [place] [address] Alana Hook RN 505 [place] [address] documented as of this encounter Visit Diagnoses Not on filedocumented in this encounter Additional Health Concerns Assessment Noted Time PHQ-9 Depression Total Score: 7 08/29/20 22 10:26 AM EST documented as of this encounter Care Teams Amusement Ride Inspector Relationship Specialty Start Date End Date Ayaka Salgado MD [address] [place] [address] PCP - General Internal Medicine 09/15/18 documented as of this encounter
--- OUTSIDE RECORDS SUMMARY | 2024-11-03 09:05 | XMS_ITS | Clinical Summary ---
Author Organization [employer] [facility] [employer] [facility] [employer] Address [address] [place] [address] 7t [place] [address] Care Team Providers Care International Controller Name Role Phone Ayaka Salgado MD Primary Care Provider [phone] Allergies Active Allergy Reactions Criticality Noted Date [...] wheezing. 18 g 024 2024 Active Umeclidinium [place] (Incruse Ellipta) 62.5 MCG/ACT aerosol powderIndications :Chronic obstructive pulmonary disease, unspecified COPD type (CMS/HCC) Inhale 62.5 mcg Once per day AND 62.5 mcg Once per day. 30 each Active losartan (Cozaar) 100 MG tablet TAKE 1 TABLET BY MOUTH EVERY DAY 90 tablet Active glimepiride (Amaryl) 1 MG tabletIndications :Type [...] each 3 Active Blood Glucose Monitoring Suppl ([employer] - [employer] LiveTouch Verio) w/Device kitIndications:Ty pe 2 diabetes mellitus with nephropathy (CMS/HCC) USE TO TEST BLOOD SUGAR TWICE A DAY 1 kit Active [employer] LiveTouch Delica Lancets 33G miscIndications:T ype 2 diabetes mellitus with nephropathy (CMS/HCC) USE TO TEST BLOOD SUGAR TWICE A DAY 100 each 5 Active glucose blood ([employer] - [employer] [address] [employer] LiveTouch Verio) test stripIndications: Type 2 diabetes mellitus [...] IN THE MORNING 30 tablet 11 024 Active simvastatin (Zocor) 20 MG tablet TAKE 1 TABLET(20 MG) BY MOUTH AT BEDTIME 90 tablet 3 025 Active zolpidem (Ambien) 10 MG tabletIndications :Primary osteoarthritis involving multiple joints TAKE 1 TABLET BY MOUTH AT BEDTIME NEEDED FOR SLEEP 30 tablet 025 Active zolpidem (Ambien) 10 MG tabletIndications :Primary osteoarthritis involving multiple joints TAKE 1 TABLET BY MOUTH AT BEDTIME NEEDED FOR SLEEP 30 tablet 025 Active oxyCODONE-acetami nophen (Percocet) 5-325 MG tabletIndications :Arthropathy Take 1 tablet by mouth every 6 (six) hours if needed for severe pain. 42 tablet 025 Active zolpidem (Ambien) 10 MG tabletIndications :Primary osteoarthritis involving multiple joints TAKE 1 TABLET BY MOUTH AT BEDTIME NEEDED FOR SLEEP 30 tablet 024 2024 Discontinued(R eorder (will not trigger notification to Pharmacy)) oxyCODONE-acetami nophen (Percocet) 5-325 MG tabletIndications :Arthropathy Take 1 tablet by mouth every 6 (six) hours if needed for severe pain. 42 tablet 025 2024 Discontinued(R eorder (will not trigger notification to Pharmacy)) oxyCODONE-acetami nophen (Percocet) 5-325 MG tabletIndications :Arthropathy Take 1 tablet by mouth every 6 (six) hours if needed for severe pain. 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 07/18/2021 Hypertensive renal disease 07/18/2021 Chronic obstructive lung disease 05/22/2018 Edema of foot 02/24/2018 CKD (chronic kidney disease), stage III 02/15/20 Type 2 diabetes mellitus with nephropathy 2014 Acute bronchitis 11/14/2011 Arthropathy 11/14/2011 Essential hypertension 11/14/2011 Pure hypercholesterolemia 06/06/2011 Hyperparathyroidism 04/29/2011 Resolved Problems Problem Noted Date Diagnosed Date Resolved Date COVID-19 09/13/2022 09/24/2022 Acute upper respiratory infection 11/05/2011 09/24/2022 Encounters Date Type Department Care Team Description 11/03/2024 Refill [facility] MEDICINE [address] [place] [address] Ayaka Salgado MD Arthropathy 10/26/2024 Refill [facility] MEDICINE [address] [place] [address] Ayaka Salgado MD Primary osteoarthritis involving multiple joints 10/19/2024 Refill [facility] [address] [place] [address] Ayaka Salgado MD Arthropathy 09/29/2024 Refill [facility] [address] [place] [address] Ayaka Salgado MD Arthropathy (Primary Dx) 09/23/2024 Refill [facility] MEDICINE [address] [place] [address] Ayaka Salgado MD Primary osteoarthritis involving multiple joints 09/22/2024 Refill [facility] MEDICINE [address] [place] [address] Ayaka Salgado MD 09/08/2024 Refill [facility] MED & PEDS [address] [place] [address] Ayaka Salgado MD 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[facility]) 09/06/2024 Refill [facility] [address] [place] [address] Ayaka Salgado MD Back pain, unspecified back location, unspecified back pain laterality, unspecified chronicity 09/06/2024 Telephone [facility] MED[facility] [address] [place] [address] Ayaka Salgado MD Med Refill 08/31/2024 9:00 AM EST Clinical Support [facility] MED & PEDS [address] [place] [address] Alana Hook RN Back pain, unspecified back location, unspecified back pain laterality, unspecified chronicity 08/31/2024 Telephone [facility] MED & PEDS [address] [place] [address] Alana Hook RN 08/31/2024 Travel 08/20/2024 Orders Only [facility] MED & PEDS [address] [place] [address] Ayaka Salgado MD 08/20/2024 Refill [facility] [address] [place] [address] Ayaka Salgado MD 08/18/[address] [address] Ayaka Salgado MD 08/18/2024 Refill [facility] MED & PEDS [address] [place] [address] Ayaka Salgado MD Primary osteoarthritis involving multiple joints 08/17/2024 9:45 AM EST Office Visit [facility] MED & PEDS [address] [place] [address] Ayaka Salgado MD Chronic pruritus (Primary Dx); Pruritus scroti 08/17/2024 Travel 08/16/2024 Telephone [facility] MED & PEDS [address] [place] [address] Ayaka Salgado MD Med Refill 08/09/[address] [address] Ayaka Salgado MD Med Refill 08/09/2024 Refill [facility] MED & PEDS [address] [place] [address] Ayaka Salgado MD Back pain, unspecified back location, unspecified back pain laterality, unspecified chronicity 08/05/2024 Refill [facility] MED & PEDS [address] [place] [address] Ayaka Salgado MD Back pain, unspecified back location, unspecified back pain laterality, unspecified chronicity (Primary Dx) from Last 3 Months Immunizations Name Administration [...] Upcoming Encounters Date Type Department Care Team ([facility] st Contact Info) Description 11/22/2024 11:00 AM EDT Office Visit [facility] MED & PEDS [address] [place] [address] Ayaka Salgado MD 505 [place] [address] 11/24/2024 9:00 AM EDT Clinical Support [facility] MED & PEDS [address] [place] [address] Alana Hook RN 505 [place] [address] Health Maintenance Due Date Last Done Comments [...] Lipid Panel 11/12/2024 11/12/2023 Diabetes: Hemoglobin A1C 01/10/202507/12/ 024, 10/01/2023, 06/30/2023, Additional history exists Influenza Vaccine (#1) 2025 Postp oned from 05/16/2024 (Patient Refused) Eye Exam 05/04/2025 05/04/2024, 05/29/2023 Pneumococcal Vaccine: 50+ Years (1 of 2 - PCV) 07/12/2025 Postponed from 1976 (Patient Refused) Tobacco Screening 08/17/2025 08/17/2024 HIB [...] unspecified back pain laterality, unspecified chronicity POCT GLYCATED HEMOGLOBIN, TOTAL Routine 07/12/2024 1:06 [...] procedure / Unknown 08/31/2024 9:04 AM EST Narrative Alana Hook RN - 08/31/2024 9:04 AM EST Lot# [id number] Exp: 08-21-25 Ayaka Salgado MD POINT OF CARE TEST ENTER/ED IT ORDERABLES Final Result * (ABNORMAL) POCT HGB A1C (07/12/2024 1:06 PM EDT) Hemoglobin A1C 6.1(A) 4.0 - 6.0 % QC Media Lot # [id number] Lot# Expiration Date Blood 07/12/2024 1:06 PM EDT Ayaka Salgado MD POINT OF CARE TEST ENTER/ED IT ORDERABLES Final Result * Diabetes Eye Exam (05/04/2024 12:18 PM EDT) Historical Provider HEALTH MAINTENANCE Final Result * (ABNORMAL) Lipid Panel, Standard (11/12/2023 9:08 AM EST) Triglycerides 55 <150 mg/dL [facility] Comment:Desirable Triglyceri de: less than 150 mg/dLBorderline High Triglyceride 150-199 mg/dLHigh Triglyceride: 200-499 mg/dLVery High Triglyceride: greater than or equal to 5OO mg/dL Cholesterol 101 <200 mg/dL [facility] Comment:Desirable Cholestero l: less than 200 mg/dLBorderline High Cholesterol: 200-239 mg/dLHigh Cholesterol: greater than 239 mg/dL LDL Cholesterol Calculated 57 <100 mg/dL [facility] Comment:Desirable LDL: less than 100 mg/dLNear Optimal/Above Optimal LDL: 110- 129 mg/dLBorderline High LDL: 130-159 mg/dLHigh LDL: 160-189 mg/dLVery High LDL: greater than or equal to 190 mg/dL HDL Cholesterol 33(L) >40 mg/dL [facility] Comment:Desirable HDL: great er than 40 mg/dL Note: This HDL assay may give artificially low results in patients with liver disease. Blood Venous blood specimen / Unknown 11/12/2023 9:08 AM EST 11/12/2023 2:41 PM EST us Ayaka Salgado MD LAB BLOOD ORDERABLES Final Result Performing Organization Address City/State/[facility] Co de Phone Number [facility] [address] [place] [address] [phone] from Last 3 Months or Most Recently Relevant to Health Maintenance Insurance [facility] MEDICARE ADVANTAGE HMO Care Teams International Controller Relationship Specialty Start Date End Date Ayaka Salgado MD [address] [place] [address] [place] [address] PCP - General Internal Medicine 09/15/18
--- OUTSIDE RECORDS SUMMARY | 2024-11-03 09:05 | XMS_ITS | Encounter Summary ---
Author Organization [employer] Address [address] [facility] 7 [place] [address] Care Team Providers Care Plastic Cutter Name Role Phone Ayaka Salgado MD Primary Care Provider [phone] Reason for Visit * Reason Onset Date Comments Medication Question 07/30/2023 Encounter Details Date Type Department Care Team ([facility] st Contact Info) Description 07/30/2023 Telephone [facility] MEDICINE [address] [place] [address] Ayaka Salgado MD 505 [facility] [place] [address] Medication Question Social History Tobacco Use Types [...] is your housing situation today? I have havne mott 06/30/[address] you [...] 10:06 AM EST Message below noted . Security Supervisor called pt twice to inform no answer lvm * Telephone Encounter - Zoey Penaloza LPN - 07/30/2023 11:09 AM EST Please review message below * Telephone Encounter - Milka Ibanez - 07/30/2023 10:22 AM EST Tc from pt stating they were unable to receive script for Ambien 10 mg , Advised script was sent on07/28/23 scientific writer contacted pharmacy and spoke to pharmacist stated PCP will have to call pharmacy togive verbal order to authorize medication due to pt leaving on vacation and pt is not due until 08/04/23 Please contact at [phone] documented in this encounter Plan of Treatment Upcoming Encounters Date Type Department Care Team (Late st Contact Info) Description 11/22/2024 11:00 AM EDT Office Visit [facility] MED & PEDS [address] [place] [address] Ayaka Salgado MD [address] [place] [address] 11/24/2024 9:00 AM EDT Clinical Support [facility] MED & PEDS [address] [place] [address] Alana Hook, RACHELLE 505 [place] [address] documented as of this encounter Visit Diagnoses Diagnosis Folliculitis Other specified disease of hair and hair follicles documented in this encounter Additional Health Concerns Assessment Noted Time PHQ-9 Depression Total Score: 7 08/29/20 22 10:26 AM EST documented as of this encounter Care Teams Plastic Cutter Relationship Specialty Start Date End Date Ayaka Salgado MD [address] [place] [address] PCP - General Internal Medicine 09/15/18 documented as of this encounter
--- OUTSIDE RECORDS SUMMARY | 2024-11-03 09:05 | XMS_ITS | Encounter Summary ---
Author Organization [employer] Address [address] [place] [address] 7 [place] [address] Care Team Providers Care Continuous Mining Operator Name Role Phone Ayaka Salgado MD Primary Care Provider [phone] Reason for Visit * Reason Onset Date Comments Med Refill 12/12/2022 Encounter Details Date Type Department Care Team ([facility] st Contact Info) Description 12/12/[address] [facility] MED & PEDS [address] [place] [address] Ayaka Salgado MD 505 [place] [address] Med Refill Social History Tobacco Use Types [...] encounter Miscellaneous Notes * Telephone Encounter - Patrickmelvin [place] - 12/12/2022 9:30 AM EDT Tc from requesting med refill on amLODIPine (Norvasc) 5 MG tablet Please sent to [id number] - [place] - [address] [facility] documented in this encounter Plan of Treatment Upcoming Encounters Date Type Department Care Team ([facility] st Contact Info) Description 11/22/2024 11:00 AM EDT Office Visit [facility] MED & PEDS [address] [place] [address] Ayaka Salgado MD 505 [place] [address] 11/24/2024 9:00 AM EDT Clinical Support [facility] MED & PEDS [address] [place] [address] Alana Hook, RACHELLE [address] [place] [address] documented as of this encounter Visit Diagnoses Not on filedocumented in this encounter Additional Health Concerns Assessment Noted Time PHQ-9 Depression Total Score: 7 08/29/20 22 10:26 AM EST documented as of this encounter Care Teams Continuous Mining Operator Relationship Specialty Start Date End Date Ayaka Salgado MD [address] [place] [address] PCP - General Internal Medicine 09/15/18 documented as of this encounter
--- OUTSIDE RECORDS SUMMARY | 2024-11-03 09:05 | XMS_ITS | Encounter Summary ---
Author Organization [employer] Address [address] [facility] 7 [place] [address] Care Team Providers Care Shear Operator Automatic Name Role Phone Ayaka Salgado MD Primary Care Provider [phone] Reason for Visit * Reason Onset Date Comments Med Refill 09/29/2024 Encounter Details Date Type Department Care Team (Late st Contact Info) Description 09/29/2024 Refill [facility] MEDICINE [address] [place] [address] Ayaka Salgado MD 505 [facility] [place] [id number] Arthropathy (Primary Dx) Social History Tobacco Use [...] 5-325 MG tablet To be sent to: [id number] [place], [place] - [address] [place] [address] AT [facility] documented in this encounter Plan of Treatment Upcoming Encounters Date Type Department Care Team ([facility] st Contact Info) Description 11/22/2024 11:00 AM EDT Office Visit [facility] MED & PEDS [address] [place] [address] Ayaka Salgado MD [address] [place] [address] 11/24/2024 9:00 AM EDT Clinical Support [facility] MED & PEDS [address] [place] [address] Alana Hook RN 505 [place] [address] documented as of this encounter Visit Diagnoses Diagnosis Arthropathy- Primary Unspecified arthropathy, site unspecified documented in this encounter Additional Health Concerns Assessment Noted Time PHQ-9 Depression Total Score: 7 08/29/20 22 10:26 AM EST documented as of this encounter Care Teams Shear Operator Automatic Relationship Specialty Start Date End Date Ayaka Salgado MD [address] [place] [address] PCP - General Internal Medicine 09/15/18 documented as of this encounter
--- OUTSIDE RECORDS SUMMARY | 2024-11-03 09:05 | XMS_ITS | Encounter Summary ---
Author Organization [employer] Address 75 [facility] 7 [place] [address] Care Team Providers Care Dairy Cattle Farm Manager Name Role Phone Ayaka Salgado MD Primary Care Provider [phone] Reason for Visit * Reason Onset Date Comments Med Refill 10/30/2022 Encounter Details Date Type Department Care Team ([facility] st Contact Info) Description 10/30/2022 Telephone [facility] MEDICINE 230 [place] [address] Ayaka Salgado MD [address] [facility] [place] [address] Med Refill Social History Tobacco Use Types [...] * Telephone Encounter - Milka Ibanez - 10/30/2022 9:17 AM EST Tc from pt requesting a med refill on Oxycodone 5 mg documented in this encounter Plan of Treatment Upcoming Encounters Date Type Department Care Team ([facility] st Contact Info) Description 11/22/2024 11:00 AM EDT Office Visit [facility] 505 [place] [address] Ayaka Salgado MD 505 [place] [address] 11/24/2024 9:00 AM EDT Clinical Support [facility] 505 [place] [address] Alana Hook RN 505 [place] [address] documented as of this encounter Visit Diagnoses Not on filedocumented in this encounter Additional Health Concerns Assessment Noted Time PHQ-9 Depression Total Score: 7 08/29/20 22 10:26 AM EST documented as of this encounter Care Teams Dairy Cattle Farm Manager Relationship Specialty Start Date End Date Ayaka Salgado MD [address] [place] [address] PCP - General Internal Medicine 09/15/18 documented as of this encounter
--- OUTSIDE RECORDS SUMMARY | 2024-11-03 09:05 | XMS_ITS | Encounter Summary ---
Author Organization [employer] Address 75 [employer] 7t [place] [address] Care Team Providers Care Chief Airport Guide Name Role Phone Ayaka Salgado MD Primary Care Provider [phone] Reason for Visit * Reason Comments Med Refill Encounter Details Date Type Department Care Team (Late st Contact Info) Description 03/02/2024 Refill [facility] MEDICINE 230 [place] [address] Ayaka Salgado MD [address] [facility] [address] [place] [address] Primary osteoarthritis involving multiple joints Social History [...] Description 11/22/2024 11:00 AM EDT Office Visit [facility] PEDS 505 [place] [address] Ayaka Salgado MD 505 [place] [address] 11/24/2024 9:00 AM EDT Clinical Support [facility] 505 [place] [address] Alana Hook, RACHELLE 505 [place] [address] documented as of this encounter Visit Diagnoses Diagnosis Primary osteoarthritis involving multiple joints documented in this encounter Additional Health Concerns Assessment Noted Time PHQ-9 Depression Total Score: 7 08/29/20 22 10:26 AM EST documented as of this encounter Care Teams Chief Airport Guide Relationship Specialty Start Date End Date Ayaka Salgado MD 505 [place] [address] PCP - General Internal Medicine 09/15/18 documented as of this encounter
--- OUTSIDE RECORDS SUMMARY | 2024-11-03 09:05 | XMS_ITS | Encounter Summary ---
Author Organization [employer] Address 75 [facility] 7 [place] [address] Care Team Providers Care Bobbin Collector Name Role Phone Ayaka Salgado MD Primary Care Provider [phone] Reason for Visit * Reason Comments Med Refill Encounter Details Date Type Department Care Team (Late st Contact Info) Description 10/07/2022 Refill [facility] 230 [place] [address] Ayaka Salgado MD [address] [facility] [address] [address] [place] [address] Primary osteoarthritis involving multiple joints Social History [...] [facility] 505 [place] [address] Ayaka Salgado MD 505 [place] [address] 11/24/2024 9:00 AM EDT Clinical Support [facility] 505 [place] [address] Alana Hook RN 505 [place] [address] documented as of this encounter Visit Diagnoses Diagnosis Primary osteoarthritis involving multiple joints documented in this encounter Additional Health Concerns Assessment Noted Time PHQ-9 Depression Total Score: 7 08/29/20 22 10:26 AM EST documented as of this encounter Care Teams Bobbin Collector Relationship Specialty Start Date End Date Ayaka Salgado MD 505 [place] [address] PCP - General Internal Medicine 09/15/18 documented as of this encounter
--- OUTSIDE RECORDS SUMMARY | 2024-11-03 09:05 | XMS_ITS | Encounter Summary ---
Author Organization [employer] Address 75 [facility] 7 [place] [address] Care Team Providers Care Solar Systems Designer Name Role Phone Ayaka Salgado MD Primary Care Provider [phone] Reason for Visit * Reason Onset Date Comments Med Refill 12/01/2023 Encounter Details Date Type Department Care Team ([facility] st Contact Info) Description 12/01/2023 Telephone [facility] MEDICINE 230 [place] [address] Ayaka Salgado MD 505 [facility] [place] [address] Med Refill Social History Tobacco Use Types [...] 10 MG tablet To be sent to: [email or web address][id number] - [place], [place] - [facility] [place] AT [facility] documented in this encounter Plan of Treatment Upcoming Encounters Date Type Department Care Team ([facility] st Contact Info) Description 11/22/2024 11:00 AM EDT Office Visit [facility] MED [facility]ED[facility] 505 [place] [address] Ayaka Salgado MD 505 [place] [address] 11/24/2024 9:00 AM EDT Clinical Support [facility]EDS [address] [place] [address] Alana Hook, RACHELLE 505 [place] [address] documented as of this encounter Visit Diagnoses Not on filedocumented in this encounter Additional Health Concerns Assessment Noted Time PHQ-9 Depression Total Score: 7 08/29/20 22 10:26 AM EST documented as of this encounter Care Teams Solar Systems Designer Relationship Specialty Start Date End Date Ayaka Salgado MD [address] [place] [address] PCP - General Internal Medicine 09/15/18 documented as of this encounter
--- OUTSIDE RECORDS SUMMARY | 2024-11-03 09:05 | XMS_ITS | Encounter Summary ---
Author Organization [employer] Address 75 [facility] 7 [place] [address] Care Team Providers Care Otr Truck Driver Name Role Phone Ayaka Salgado MD Primary Care Provider [phone] Reason for Visit * Reason Onset Date Comments Med Refill 07/28/2023 Encounter Details Date Type Department Care Team ([facility] Contact Info) Description 07/28/2023 Telephone [facility]EDS 505 [place] [address] Ayaka Salgado MD 505 [place] [address] Med Refill Social History Tobacco Use Types [...] (Percocet) 5-325 MG tablet Please sent to [facility][id number] - [place] - [address] AT [facility] documented in this encounter Plan of Treatment Upcoming Encounters Date Type Department Care Team ([facility] st Contact Info) Description 11/22/2024 11:00 AM EDT Office Visit [facility] 505 [place] [address] Ayaka Slagado MD 505 [place] [address] 11/24/2024 9:00 AM EDT Clinical Support [facility] 505 [place] [address] Alana Hook RN 505 [place] [address] documented as of this encounter Visit Diagnoses Not on filedocumented in this encounter Additional Health Concerns Assessment Noted Time PHQ-9 Depression Total Score: 7 08/29/20 22 10:26 AM EST documented as of this encounter Care Teams Otr Truck Driver Relationship Specialty Start Date End Date Ayaka Salgado MD [address] [place] [address] PCP - General Internal Medicine 09/15/18 documented as of this encounter
--- OUTSIDE RECORDS SUMMARY | 2024-11-03 09:05 | XMS_ITS | Clinical Summary ---
Author Organization [facility] Address [address] [facility] [address] [address] [place] [address] Phone Care Team Providers Care Weaver Wire Loom Name Role Phone Jayme Salgado MD Primary Care Provider [phone] Allergies Active Allergy Reactions Criticality Noted Date [...] patient's age to complete this topic Insurance [facility] [address] [facility] [place] [place] [address] Care Teams Weaver Wire Loom Relationship Specialty Start Date End Date Jayme Salgado MD [address] [place], [place] [address]Dee [place] PCP - General 09/25/20
--- OUTSIDE RECORDS SUMMARY | 2024-11-03 09:05 | XMS_ITS | Encounter Summary ---
Author Organization [employer] Address 75 [facility] 7t [place] [address] Care Team Providers Care Youtuber Name Role Phone Ayaka Salgado MD Primary Care Provider [phone] Encounter Details Date Type Department Care Team ([facility] st Contact Info) Description 05/26/2024 Orders Only [facility] MED & PEDS 505 [place] [address] Ayaka Salgado MD 505 [place] [address] Simple chronic bronchitis (CMS/HCC) (Primary Dx) Social [...] Description 11/22/2024 11:00 AM EDT Office Visit [facility] MED [facility] PEDS 505 [place] [address] Ayaka Salgado MD 505 [place] [address] 11/24/2024 9:00 AM EDT Clinical Support [facility] 505 [place] [address] Alana Hook, RACHELLE 505 [place] [address] documented as of this encounter Visit Diagnoses Diagnosis Simple chronic bronchitis (CMS/HCC)- Primary Simple chronic bronchitis documented in this encounter Additional Health Concerns Assessment Noted Time PHQ-9 Depression Total Score: 7 08/29/20 22 10:26 AM EST documented as of this encounter Care Teams Youtuber Relationship Specialty Start Date End Date Ayaka Salgado MD 505 [place] [address] PCP - General Internal Medicine 09/15/18 documented as of this encounter
--- OUTSIDE RECORDS SUMMARY | 2024-11-03 09:05 | XMS_ITS | Encounter Summary ---
Author Organization [employer] Address 75 [facility] 7 [place] [address] Care Team Providers Care Abstracter Name Role Phone Ayaka Salgado MD Primary Care Provider [phone] Reason for Visit * Reason Onset Date Comments Med Refill 07/31/2023 Encounter Details Date Type Department Care Team ([facility] st Contact Info) Description 07/31/2023 Telephone [facility] MEDICINE 230 [place] [address] Ayaka Salgado MD 505 [facility] [place] [address] Med Refill Social History Tobacco Use Types [...] Upcoming Encounters Date Type Department Care Team ([facility] st Contact Info) Description 11/22/2024 11:00 AM EDT Office Visit [facility]EDS 505 [place] [address] Ayaka Salgado MD 505 [place] [address] 11/24/2024 9:00 AM EDT Clinical Support [facility] 505 [place] [address] Alana Hook RN 505 [place] [address] documented as of this encounter Visit Diagnoses Not on filedocumented in this encounter Additional Health Concerns Assessment Noted Time PHQ-9 Depression Total Score: 7 08/29/20 22 10:26 AM EST documented as of this encounter Care Teams Abstracter Relationship Specialty Start Date End Date Ayaka Salgado MD [address] [place] [address] PCP - General Internal Medicine 09/15/18 documented as of this encounter
--- OUTSIDE RECORDS SUMMARY | 2024-11-03 09:05 | XMS_ITS | Encounter Summary ---
Author Organization [employer] Address 75 [facility] 7 [place] [address] Care Team Providers Care Textile Technologist Name Role Phone Ayaka Salgado MD Primary Care Provider [phone] Reason for Visit * Reason Onset Date Comments FYI 04/30/2023 Encounter Details Date Type Department Care Team ([facility] st Contact Info) Description 04/30/2023 Telephone [facility] MEDICINE [address] [place], [place] [id number] Ayaka Salgado MD 505 [facility] [place] [address] FYI Social History Tobacco Use Types Packs/Day [...] EDT Tc from pt stating he advised [facility] to cancel out script for clonidine 0.3 mg due to workers compensation claims adjuster @ [facility] decreasing script to 0.2 mg. Advised will leave message as a FYI. Please contact at [phone] documented in this encounter Plan of Treatment Upcoming Encounters Date Type Department Care Team (Late st Contact Info) Description 11/22/2024 11:00 AM EDT Office Visit [facility] MED & PEDS 505 [place] [address] Ayaka Salgado MD 505 [place] [address] 11/24/2024 9:00 AM EDT Clinical Support [facility] MED & PEDS 505 [place] [address] Alana Hook, RACHELLE 505 [place] [address] documented as of this encounter Visit Diagnoses Not on filedocumented in this encounter Additional Health Concerns Assessment Noted Time PHQ-9 Depression Total Score: 7 08/29/20 22 10:26 AM EST documented as of this encounter Care Teams Textile Technologist Relationship Specialty Start Date End Date Ayaka Salgado MD 505 [place] [address] PCP - General Internal Medicine 09/15/18 documented as of this encounter
--- OUTSIDE RECORDS SUMMARY | 2024-11-03 09:05 | XMS_ITS | Encounter Summary ---
Author Organization [employer] Address 75 [facility] 7 [place] [address] Care Team Providers Care Machine Operator Picker Name Role Phone Ayaka Salgado MD Primary Care Provider [phone] Reason for Visit * Reason Onset Date Comments Med Refill 10/26/2024 Encounter Details Date Type Department Care Team (Late st Contact Info) Description 10/26/2024 Refill [facility] MEDICINE 230 [place] [address] Ayaka Salgado MD 505 [facility] [place] [address] Primary osteoarthritis involving multiple joints Social History [...] encounter Miscellaneous Notes * Telephone Encounter - Sunil Corley - 10/26/2024 9:30 AM EST TC from pt requesting medication refill. Medications needing refill : zolpidem (Ambien) 10 MG tablet To be sent to: [facility][id number] [place], [place] - [facility] [place] AT [facility] documented in this encounter Plan of Treatment Upcoming Encounters Date Type Department Care Team ([facility] st Contact Info) Description 11/22/2024 11:00 AM EDT Office Visit [facility] MED [facility] PEDS 505 [place] [address] Ayaka Salgado MD 505 [place] [address] 11/24/2024 9:00 AM EDT Clinical Support [facility] MED [facility] PEDS 505 [place] [address] Alana Hook RN 505 [place] [address] documented as of this encounter Visit Diagnoses Diagnosis Primary osteoarthritis involving multiple joints documented in this encounter Additional Health Concerns Assessment Noted Time PHQ-9 Depression Total Score: 7 08/29/20 22 10:26 AM EST documented as of this encounter Care Teams Machine Operator Picker Relationship Specialty Start Date End Date Ayaka Salgado MD [address] [place] [address] PCP - General Internal Medicine 09/15/18 documented as of this encounter
--- OUTSIDE RECORDS SUMMARY | 2024-11-03 09:05 | XMS_ITS | Encounter Summary ---
Author Organization [employer] Address 75 [facility] 7t [place] [address] Care Team Providers Care Scallop Cutter Name Role Phone Ayaka Salgado MD Primary Care Provider [phone] Encounter Details Date Type Department Care Team ([facility] st Contact Info) Description 08/18/2024 Telephone [facility] MEDICINE 230 [place] [address] Ayaka Salgado MD [address] [place] [address] Social History Tobacco Use Types Packs/Day Years [...] [facility] MED & PEDS 505 [place] [address] Ayaka Salgado MD 505 [place] [address] 11/24/2024 9:00 AM EDT Clinical Support [facility] PEDS 505 [place] [address] Alana Hook, RACHELLE 505 [place] [address] documented as of this encounter Visit Diagnoses Not on filedocumented in this encounter Additional Health Concerns Assessment Noted Time PHQ-9 Depression Total Score: 7 08/29/20 22 10:26 AM EST documented as of this encounter Care Teams Scallop Cutter Relationship Specialty Start Date End Date Ayaka Salgado MD 505 [place] [address] PCP - General Internal Medicine 09/15/18 documented as of this encounter
--- OUTSIDE RECORDS SUMMARY | 2024-11-03 09:05 | XMS_ITS | Encounter Summary ---
Author Organization [employer] Address 75 [facility] 7 [place] [address] Care Team Providers Care Dye Reel Operator Name Role Phone Ayaka Salgado MD Primary Care Provider [phone] Reason for Visit * Reason Onset Date Comments Med Refill 11/03/2024 Encounter Details Date Type Department Care Team (Late st Contact Info) Description 11/03/2024 Refill [facility] MEDICINE 230 [place] [address] Ayaka Salgado MD 505 [facility] [place] [address] Arthropathy Social History Tobacco Use Types Packs/Day Years [...] * Telephone Encounter - Edward Vallejo - 11/03/2024 8:15 AM EST TC from pt requesting medication refill. Medications needing refill : oxyCODONE-acetaminophen (Percocet) 5-325 MG tablet To be sent to: [facility] #[id number] [place], [place] - [facility] [place] AT [facility] documented in this encounter Plan of Treatment Upcoming Encounters Date Type Department Care Team ([facility] st Contact Info) Description 11/22/2024 11:00 AM EDT Office Visit [facility] PEDS 505 [place] [address] Ayaka Salgado MD 505 [place] [address] 11/24/2024 9:00 AM EDT Clinical Support [facility] 505 [place] [address] Alana Hook RN 505 [place] [address] documented as of this encounter Visit Diagnoses Diagnosis Arthropathy Unspecified arthropathy, site unspecified documented in this encounter Additional Health Concerns Assessment Noted Time PHQ-9 Depression Total Score: 7 08/29/20 22 10:26 AM EST documented as of this encounter Care Teams Dye Reel Operator Relationship Specialty Start Date End Date Ayaka Salgado MD [address] [place] [address] PCP - General Internal Medicine 09/15/18 documented as of this encounter
--- OUTSIDE RECORDS SUMMARY | 2024-11-03 09:05 | XMS_ITS | Encounter Summary ---
Author Organization [employer] Address [address] [place] [address] 7 [place] [address] Care Team Providers Care Blue Split Trimmer Name Role Phone Ayaka Salgado MD Primary Care Provider [phone] Reason for Visit * Reason Onset Date Comments Med Refill 12/12/2022 Encounter Details Date Type Department Care Team ([facility] st Contact Info) Description 12/12/2022 Telephone [facility] MED & PEDS 505 [place] [address] Ayaka Salgado MD 505 [place] [address] Med Refill Social History Tobacco Use Types [...] (Percocet) 5-325 MG tablet Please sent to [facility] #[id number] - [place], [place] - [address] [facility] documented in this encounter Plan of Treatment Upcoming Encounters Date Type Department Care Team (Late st Contact Info) Description 11/22/2024 11:00 AM EDT Office Visit [facility] MED & PEDS [address] [place] [address] Ayaka Salgado MD 505 [place] [address] 11/24/2024 9:00 AM EDT Clinical Support [facility] MED & PEDS [address] [place] [address] Alana Hook, RACHELLE 505 [place] [address] documented as of this encounter Visit Diagnoses Not on filedocumented in this encounter Additional Health Concerns Assessment Noted Time PHQ-9 Depression Total Score: 7 08/29/20 22 10:26 AM EST documented as of this encounter Care Teams Blue Split Trimmer Relationship Specialty Start Date End Date Ayaka Salgado MD 505 [place] [address] PCP - General Internal Medicine 09/15/18 documented as of this encounter
--- OUTSIDE RECORDS SUMMARY | 2024-11-03 09:05 | XMS_ITS | Encounter Summary ---
Author Organization [employer] Address 75 [facility] 7t [place] [address] Care Team Providers Care Log Raft Worker Name Role Phone Ayaka Salgado MD Primary Care Provider [phone] Encounter Details Date Type Department Care Team ([facility] st Contact Info) Description 09/22/2023 Orders Only [facility] MED & PEDS 505 [place] [address] Ayaka Salgado MD 505 [place] [address] Simple chronic bronchitis (CMS/HCC) (Primary Dx) Social [...] 11/22/2024 11:00 AM EDT Office Visit [facility] PEDS 505 [place] [address] Ayaka Salgado MD 505 [place] [address] 11/24/2024 9:00 AM EDT Clinical Support [facility] PEDS 505 [place] [address] Alana Hook, RACHELLE 505 [place] [address] documented as of this encounter Visit Diagnoses Diagnosis Simple chronic bronchitis (CMS/HCC)- Primary Simple chronic bronchitis documented in this encounter Additional Health Concerns Assessment Noted Time PHQ-9 Depression Total Score: 7 08/29/20 22 10:26 AM EST documented as of this encounter Care Teams Log Raft Worker Relationship Specialty Start Date End Date Ayaka Salgado MD 505 [place] [address] PCP - General Internal Medicine 09/15/18 documented as of this encounter
--- OUTSIDE RECORDS SUMMARY | 2024-11-03 09:05 | XMS_ITS | Encounter Summary ---
Author Organization [employer] Address [address] [place] [address] 7 [place] [address] Care Team Providers Care History Tutor Name Role Phone Ayaka Salgado MD Primary Care Provider [phone] Reason for Visit * Reason Comments Med Refill Encounter Details Date Type Department Care Team ([facility] Contact Info) Description 07/28/2023 Refill [facility] MED & PEDS 505 [place] [address] Ayaka Salgado MD 505 [place] [address] Social History Tobacco Use Types Packs/Day Years [...] 11/22/2024 11:00 AM EDT Office Visit [facility] MED & PEDS 505 [place] [address] Ayaka Salgado MD 505 [place] [address] 11/24/2024 9:00 AM EDT Clinical Support [facility] MED & PEDS 505 [place] [address] Alana Hook, RACHELLE 505 [place] [address] documented as of this encounter Visit Diagnoses Not on filedocumented in this encounter Additional Health Concerns Assessment Noted Time PHQ-9 Depression Total Score: 7 08/29/20 22 10:26 AM EST documented as of this encounter Care Teams History Tutor Relationship Specialty Start Date End Date Ayaka Salgado MD 505 [place] [address] PCP - General Internal Medicine 09/15/18 documented as of this encounter
--- OUTSIDE RECORDS SUMMARY | 2024-11-03 09:05 | XMS_ITS | Encounter Summary ---
Author Organization [facility] Address 75 [facility] 7 [place] [address] Care Team Providers Care Green Inspector Name Role Phone Ayaka Salgado MD Primary Care Provider [phone] Reason for Visit * Reason Onset Date Comments Med Refill 10/19/2024 Encounter Details Date Type Department Care Team (Late st Contact Info) Description 10/19/2024 Refill [facility] MEDICINE [address] [place] [address] Ayaka Salgado MD 505 [facility] [place] [address] Arthropathy Social History Tobacco Use Types Packs/Day [...] * Telephone Encounter - Edward Vallejo - 10/19/2024 8:01 AM EST TC from pt requesting medication refill. Medications needing refill : oxyCODONE-acetaminophen (Percocet) 5-325 MG tablet To be sent to: [id number] [place], [place] - [facility] [address] [facility] documented in this encounter Plan of Treatment Upcoming Encounters Date Type Department Care Team ([facility] st Contact Info) Description 11/22/2024 11:00 AM EDT Office Visit [facility] MED & PEDS [address] [place] [address] Ayaka Salgado MD 505 [place] [address] 11/24/2024 9:00 AM EDT Clinical Support [facility] [address] [place] [address] Alana Hook RN 505 [place] [address] documented as of this encounter Visit Diagnoses Diagnosis Arthropathy Unspecified arthropathy, site unspecified documented in this encounter Additional Health Concerns Assessment Noted Time PHQ-9 Depression Total Score: 7 08/29/20 22 10:26 AM EST documented as of this encounter Care Teams Green Inspector Relationship Specialty Start Date End Date Ayaka Salgado MD [address] [place] [address] PCP - General Internal Medicine 09/15/18 documented as of this encounter
--- OUTSIDE RECORDS SUMMARY | 2024-11-03 09:05 | XMS_ITS | Encounter Summary ---
Author Organization [facility] [address] [facility] [address] [place] [address] Phone Care Team Providers Care Certification Engineer Name Role Phone Jayme Salgado MD Primary Care Provider [phone] Reason for Visit * Reason Comments Med Refill Encounter Details Date Type Department Care Team (Late st Contact Info) Description 04/28/2023 Refill [facility] [address] [place] [place] [id number] Mumtaz Childress MD [address] [facility] [address] [place] [address] Type 2 diabetes mellitus with [...] (HCC) documented in this encounter Care Teams Certification Engineer Relationship Specialty Start Date End Date Jayme Salgado MD [address] [place] [address] PCP - General 09/25/20 documented as of this encounter
[2024-11-03 14:26] LABS: Hematocrit 28.1 % (42.0-52.0); Hemoglobin 8.4 g/dl (14.0-18.0); Mean Corpuscular HGB Conc 29.9 g/dl (31.0-36.0); Mean Corpuscular Hemoglobin 26.2 pg (27.0-33.0); Mean Corpuscular Volume 87.5 fL (80.0-98.0); Mean Platelet Volume 11.6 fL (9.4-12.4); Platelet Count 203 X10*3/uL (160-400); Red Blood Count 3.21 X10*6/uL (4.60-5.80); White Blood Count 5.5 X10*3/uL (4.8-10.8)
[2024-11-03 14:42] LABS: Anion Gap 15 (12-20); Blood Urea Nitrogen 50 mg/dL (9-16); Calcium 7.7 mg/dL (8.4-10.2); Carbon Dioxide 23 mmol/L (22-29); Chloride 108 mmol/L (96-108); Glucose Random 147 mg/dL (60-115); Potassium 4.7 mmol/L (3.3-5.1); Sodium 141 mmol/L (135-145)
[2024-11-03 14:46] LABS: Estimated Glomerular Filt Rate 13
== END 2024-11-03 08:57 | disposition home or self-care (01) ==
LOC: HO.CHCLDS 08:56
PROVIDERS: Visit Provider Internal Medicine Hypertension Specialist
DX: D64.9 Anemia, unspecified (principal); N18.4 Chronic kidney disease, stage 4 (severe)
CPT/HCPCS: 36415; 80048; 85027

== ENCOUNTER → 2024-11-05 23:59 | Outpatient (BNV) | payer MEDICARE, SELFPAY ==
--- NOTE | 2024-11-26 18:05 | A.OFFVIS_ITS ---
Intake Visit Reasons: Remote Cardiomems monitoring- St Jr Allergies aspirin Adverse Reaction (Unknown, Verified 11/08/24 10:23) nose bleeds metformin Adverse Reaction (Unknown, Verified 11/08/24 10:23) hypoglycemia warfarin [From Coumadin] Adverse Reaction (Unknown, Verified 11/08/24 10:23) Nose Bleed apixaban Adverse Reaction (Verified 11/08/24 10:23) Nose Bleed clopidogrel Adverse Reaction (Verified 11/08/24 10:23) Nose Bleed [facility] Medical History Obesity (BMI 30-39.9) Elevated brain natriuretic peptide (BNP) level Lower extremity edema COPD (chronic obstructive pulmonary disease) LEONEL (obstructive sleep apnea) Dyspnea on minimal exertion COPD (chronic obstructive pulmonary disease) Smoker Left ventricular hypertrophy Smoking CKD (chronic kidney disease) Obesity Dyslipidemia Hypertension Diabetes mellitus Surgical History No pertinent past surgical history Family History Father No problems noted. Mother Diabetes Family/Other No problems noted. Social History Household Members: Significant Other Housing: Apartment Do you presently have visiting nurse or other home services: No Alcohol intake: current Alcohol intake frequency: a few times a month Patient Tobacco Use Status: Former Tobacco user e-Cigarette/Vaping Use: Never Used Second Hand Smoke Exposure: No Advance Directives Date on File: 08/23/22 service: No Current occupational status: disabled Office Procedures Cardiac Device Check Cardiac Device Check Details: Monitoring period dates: 09/23/24- 11/05/24 Optimal PA pressure range: PAD goal 16mmhg Procedure code: 18340 BACKGROUND: Lewis is implanted with the CardioMEMS PA Sensor.? I use this technology to monitor PA pressures on a weekly basis to ensure patients are within their optimal range to prevent decompensation.? SUMMARY:? I utilized the remote monitoring platform ([employer] Mobile) to set optimal targets for pulmonary artery pressure thresholds as part of acute and chronic management of patient?s heart failure. During the period indicated above, I monitored the patient?s pulmonary artery pressures weekly via trend analysis and notification reports which provide alerts when patient?s PA pressures were outside of range to prompt immediate action in medication changes and communications.? The weekly reports are archived in the [employer] system which serve as a parallel record to document weekly PA pressures, medication changes, and clinical notes. I have reviewed readings on 09/24, 10/01, 10/08, 10/15, 10/22, 10/29. 11/05. Readings have ranged between 24-34mmhg. He has advanced CKD and no diuretic changes were made. 43797 - Remote monitoring of wireless pulmonary artery pressure sensor Procedure code (CPT) selection complete Assessment & Plan Assessment & Plan (1) Presence of CardioMEMS HF system: Code(s): Z95.818 - Presence of other cardiac implants and grafts Category: Medical Plan: monthly report Coding Level of Care Code Procedure Only Diagnoses Presence of CardioMEMS HF system Z95.818 CPT Codes Cardiac Device Check - Cardiac Device 17: 22399 - Remote monitoring of wireless pulmonary artery pressure sensor ([id number])
== END ==
PROVIDERS: PCP Internal Medicine; Visit Provider Nurse Practitioner Family
DX: Z45.09 Encounter for adjustment and management of other cardiac device (principal)
CPT/HCPCS: 93264

== ENCOUNTER 2024-11-08 10:06 | Outpatient (AMB) | payer MEDICARE, SELFPAY ==
[2024-11-08 10:18] VITALS: BP 126/72; PULSE 89; O2SAT 97; BMI 37.6
--- NOTE | 2024-11-08 10:18 | HO.NEPHOV_ITS ---
Vital Signs 11/08/24 10:18 Height 5 ft 7 in Weight 240 lb BMI 37.6 BP 126/72 Blood Pressure Location Rt brachial Position Sitting Pulse 89 Pulse Source Pulse Oximeter Pulse Oximetry (%) 97 Oxygen Delivery Method Room Air Intake Visit Reasons: Retacrit Computer Support Specialist Instructor Required: No Accompanied by: Spouse Allergies aspirin Adverse Reaction (Unknown, Verified 11/08/24 10:23) nose bleeds metformin Adverse Reaction (Unknown, Verified 11/08/24 10:23) hypoglycemia warfarin [From Coumadin] Adverse Reaction (Unknown, Verified 11/08/24 10:23) Nose Bleed apixaban Adverse Reaction (Verified 11/08/24 10:23) Nose Bleed clopidogrel Adverse Reaction (Verified 11/08/24 10:23) Nose Bleed Medication List - Last Reconciled 11/08/24 by Ross Baldwin MD acetaminophen (Tylenol) 650 mg PO Q6H PRN albuterol sulfate 90 mcg/actuation (Ventolin HFA) inhalation albuterol sulfate mg inhalation blood-glucose meter (FreeStyle Lite Meter kit) As directed bumetanide 1 mg PO BID calcitriol 0.25 mcg PO DAILY cholecalciferol (vitamin D3) 25 mcg PO Q48H cinacalcet 30 mg PO DAILY clonidine HCl 0.2 mg PO TID 90 days gabapentin 300 mg PO TID glimepiride 1 mg PO DAILY hydralazine 100 mg PO TID labetalol 400 mg PO BID lancets (FreeStyle Lancets) As directed lidocaine 5% 1 patch topical DAILY PRN losartan 50 mg PO DAILY oxycodone-acetaminophen 5-325 mg 1 tab PO Q8H PRN simvastatin 20 mg PO BEDTIME sitagliptin phosphate (Januvia) 25 mg PO DAILY umeclidinium 62.5 mcg/actuation (Incruse Ellipta) 1 inh inhalation DAILY zolpidem 10 mg PO BEDTIME HPI Comments Details: 67-year-old male with a history of type 2 diabetes, HTN, CKD, carotid stenosis, COPD, LEONEL not on CPAP, diastolic CHF with preserved ejection fraction, He has advanced CKD Baseline creatinine is between 3.5 and 4.0 Currently on high dose of Bumex -Takes 1mg BID No edema No dyspnea 06/15/24 ; c/o SOB;Gained some weight/edema ;Went to [facility] 06/25/24 ;After adding metolazone 2 doses and increasing Bumex to 1 mg b.i.d. he has lost about 7 lb. His breathing has improved. He feels better 07/27/24;doing much better;seen by cardiology 08/30/24 ;Dyspnea on exertion ;Weight is down by few lbs 09/13/24 ; c/o difficulty sleeping ;He has LEONEL -but does not use CPAP ; New onset A.fib - work up in progress 11/08/24: Still sOB on exertion;Seeing cardilogy today [facility] Medical History Obesity (BMI 30-39.9) Elevated brain natriuretic peptide (BNP) level Lower extremity edema COPD (chronic obstructive pulmonary disease) LEONEL (obstructive sleep apnea) Dyspnea on minimal exertion COPD (chronic obstructive pulmonary disease) Smoker Left ventricular hypertrophy Smoking CKD (chronic kidney disease) Obesity Dyslipidemia Hypertension Diabetes mellitus Surgical History No pertinent past surgical history Family History Father No problems noted. Mother Diabetes Family/Other No problems noted. Social History Household Members: Significant Other Housing: Apartment Do you presently have visiting nurse or other home services: No Alcohol intake: current Alcohol intake frequency: a few times a month Patient Tobacco Use Status: Former Tobacco user e-Cigarette/Vaping Use: Never Used Second Hand Smoke Exposure: No Advance Directives Date on File: 08/23/22 service: No Current occupational status: disabled Physical Exam Vital Signs: Last Vital Signs Pulse 89 11/08/24 10:18 BP 126/72 11/08/24 10:18 Pulse Ox 97 11/08/24 10:18 Oxygen Delivery Method Room Air 11/08/24 10:18 BMI result Body Mass Index 37.6 Comfortable Neck supple no JVD. Lungs entry equal no rales. Heart S1-S2 heard no gallop or rub. Abdomen soft nontender. Neuro alert awake oriented. No asterixis. Extremities 2+edema. Office Meds epoetin chad-epbx 20,000 unit/mL injection solution Performing Provider: Ross Baldwin MD Performing Location[facility] Administered by: Ross Baldwin MD on 11/08/24 10:35 Dose Route Admin Location Dispensed Lot Number Expiration Date [facility] Valve Tester 20,000 unit subcut Right arm 1 mL [id number] 02/12/26 Results Reviewed Nephrology Results: Hgb 8.4 g/dl (14.0-18.0) L 11/03/24 WBC 5.5 X10*3/uL (4.8-10.8) 11/03/24 Plt Count 203 X10*3/uL (160-400) 11/03/24 Sodium 141 mmol/L (135-145) 11/03/24 Potassium 4.7 mmol/L (3.3-5.1) 11/03/24 Chloride 108 mmol/L (96-108) 11/03/24 Carbon Dioxide 23 mmol/L (22-29) 11/03/24 BUN 50 mg/dL (9-16) H 11/03/24 Creatinine 4.57 mg/dL (0.5-1.4) H* 11/03/24 Calcium 7.7 mg/dL (8.4-10.2) L 11/03/24 Assessment & Plan Assessment & Plan (1) CKD (chronic kidney disease) stage 4, GFR 15-29 ml/min: Code(s): N18.4 - Chronic kidney disease, stage 4 (severe) Category: Medical (2) Essential hypertension: Code(s): I10 - Essential (primary) hypertension Category: Medical Plan: BP appears well controlled. We discussed weight loss and low-salt diet again. (3) Chronic diastolic congestive heart failure: Code(s): I50.32 - Chronic diastolic (congestive) heart failure Category: Medical Plan: Compensated. Follows with cardiology. (4) Obesity (BMI 30-39.9): Code(s): E66.9 - Obesity, unspecified Category: Medical Plan: Discussed weight loss. (5) Hyperparathyroidism: Code(s): E21.3 - Hyperparathyroidism, unspecified Category: Medical Plan: Repeat calcium is 7. He is currently on cinacalcet and Rocaltrol. Will HOLD Cinacalcet ( 11/08/24) Follow PTH (6) Anemia: Code(s): D64.9 - Anemia, unspecified Category: Medical Plan: Due to CKD Administered Retacrit U Sq Plan Referred to dialysis education program. He will be a good candidate for CCPD Discussed pre-emptive transplant REfered to [facility] - seen in Jul Orders: Orders AMB Epoetin Injection Practice Supplied Today N40.1 - Benign prostatic h yperplasia with lower urinary tract symptoms Medications: New epoetin chad-epbx 20,000 units subcut ONCE 1 mL 0RF anemia N40.1 - Benign prostatic hyperplasia with lower urinary tract symptoms Coding Level of Care Code Est Pt Level 4 (64357) Diagnoses CKD (chronic kidney disease) stage 4, GFR 15-29 ml/min N18.4 Essential hypertension I10 Chronic diastolic congestive heart failure I50.32 Obesity (BMI 30-39.9) E66.9 Hyperparathyroidism E21.3 Anemia D64.9
--- OUTSIDE RECORDS SUMMARY | 2024-11-08 11:18 | XMS_ITS | Clinical Summary ---
Author Organization [facility] Address [address] [place] [address] Care Team Providers Care Body Worker Name Role Phone DamianAyaka Primary Care Provider [...] Type Department Care Team Description 09/17/2024 Telephone [facility] Transplant Department [address] [place] [address] Shima Springer RN 09/13/2024 Telephone [facility] [address] [place] [address] Shima Springer RN 08/27/2024 Telephone [facility] Department [address] [place] [address] Shima Springer, RN from Last 3 Months [...] complete this topic Procedures * Due to [place] Narrative law, this organization might not be sharing [...] to Health Maintenance Results * Due to [place] Narrative law, this organization might not be sharing [...] - 7.80 10*3/uL 07/29/2024 1:35 PM EST [facility] Immature Grans # <0.03 <=0.03 10*3/uL 07/29/2024 1:35 PM EST [facility] Lymphocyte # 0.90 0.85 - 3.90 10*3/uL 07/29/2024 1:35 PM EST [facility] Monocyte # 0.40 0.20 - 0.95 10*3/uL 07/29/2024 1:35 PM EST [facility] Eosinophil # 0.40 0.02 - 0.50 10*3/uL 07/29/2024 1:35 PM EST [facility] Basophil # <0.03 0.00 - 0.20 10*3/uL 07/29/2024 1:35 PM EST [facility] nRBC % 0.0 /100 WBCs 07/29/2024 1:35 PM EST [facility] nRBC # <0.01 <0.01 10*3/uL 07/29/2024 1:35 PM EST [facility] Blood Structure of peripheral vein / Unknown Venipuncture / Unknown 07/29/2024 12:57 PM EST 07/29/2024 1:29 PM EST us Joey Duarte MD LAB BLOOD ORDERABLES María l Result [facility] [address] [place] [address], * Hepatitis C Antibody w/Reflex to PCR (07/29/2024 12:57 PM EST) Hepatitis C Antibody NON-REACT [place] NON-REACT [place] 07/30/2024 3:03 AM EST [facility] Comment: HCV antibody was non-reactive. There is no laboratory evidence of HCV infection. In most cases, no further action is required. However, if recent HCV exposure is suspected, a test for HCV RNA (test code 00281) is suggested. For additional information please refer to http://education.VigLink/faq/CCE10s7 (This link is being provided for informational/ educational purposes only.) Blood Structure of peripheral vein / Unknown Venipuncture / Unknown 07/29/2024 12:57 PM EST 07/29/2024 1:32 PM EST Narrative [facility] 07/30/2024 3:03 AM EST [facility] Received Date: Joey Duarte MD LAB BLOOD ORDERABLES María l Result Performing Organization Address City/[facility]/ZIP Co de Phone Number [facility] [address], [place] [address], [facility] [address], [place] [address], [place] [phone] * Phosphorus (07/29/2024 12:57 PM EST) Phosphorus 4.5 2.5 - 4.5 mg/dL 07/29/2024 2:00 PM EST [facility] Blood Structure of peripheral vein / Unknown Venipuncture / Unknown 07/29/2024 12:57 PM EST 07/29/2024 1:29 PM EST Joey Duarte MD LAB BLOOD ORDERABLES María l Result [facility] [address] [place] [address], * (ABNORMAL) Hemoglobin A1c (07/29/2024 12:57 PM EST) Hemoglobin A1C 6.7(H) <5.7 % of total Hgb 07/30/2024 1:59 AM EST [employer] Comment: For someone without known diabetes, a [...] (MG/DL) 146 mg/dL 07/30/2024 1:59 AM EST [employer] eAG (MMOL/L) 8.1 mmol/L 07/30/2024 1:59 AM [facility] Blood Structure of peripheral vein / Unknown Venipuncture / Unknown 07/29/2024 12:57 PM EST 07/29/2024 1:32 PM EST [facility] 07/30/2024 1:59 AM EST [facility] Received Date: Joey Duarte MD LAB BLOOD ORDERABLES María l Result [facility] [address] [facility] 3rd Floor, [place] [address], [employer] [facility] 200 [facility] 3rd Floor, [place] [address], from Last 3 Months or Most Recently Relevant to Health Maintenance Insurance [facility] [employer] [employer] [place] [facility] Advance Directives Documents on File Type Date Recorded Patient In School Suspension Coordinator Expl anation Health Care Proxy 08/05/2024 4:14 PM 07-16 Care Teams Body Worker Relationship Specialty Start Date End Date Ayaka Salgado [address] [place] [address] [place] [phone] PCP - General Internal Medicine 07/29/24
--- OUTSIDE RECORDS SUMMARY | 2024-11-08 11:18 | XMS_ITS | Encounter Summary ---
Author Organization [employer] Address 75 [facility] 7 [place] [address] Care Team Providers Care Catering Convention Services Manager Name Role Phone Ayaka Salgado MD Primary Care Provider [phone] Reason for Visit * Reason Onset Date Comments Med Refill 09/06/2024 Encounter Details Date Type Department Care Team ([facility] st Contact Info) Description 09/06/2024 Telephone [facility] MEDICINE [address] [place] [address] Ayaka Salgado MD 505 [facility] [place] [address] Med Refill Social History Tobacco Use Types [...] 8:56 AM EST Medication was sent to [facility][id number] on 08/09/24 with 3 refills. * Telephone Encounter - Cleopatra Ortiz - 09/06/2024 8:53 AM EST TC from pt requesting medication refill. Medications needing refill : labetalol (Normodyne) 200 MG tablet To be sent to: [facility][id number] - [place] - [address] [facility] documented in this encounter Plan of Treatment Upcoming Encounters Date Type Department Care Team ([facility] st Contact Info) Description 11/22/2024 11:00 AM EDT Office Visit [facility] 505 [facility] [place] [address] Ayaka Salgado MD 505 [facility] [place], [place] [id number] 11/24/2024 9:00 AM EDT Clinical Support [facility] PEDS 505 [place] [address] Alana Hook, RACHELLE 505 [place] [address] documented as of this encounter Visit Diagnoses Not on filedocumented in this encounter Additional Health Concerns Assessment Noted Time PHQ-9 Depression Total Score: 7 08/29/20 22 10:26 AM EST documented as of this encounter Care Teams Catering Convention Services Manager Relationship Specialty Start Date End Date Ayaka Salgado MD 505 [place] [address] PCP - General Internal Medicine 09/15/18 documented as of this encounter
--- OUTSIDE RECORDS SUMMARY | 2024-11-08 11:18 | XMS_ITS | Encounter Summary ---
Author Organization [employer] Address 75 [facility] 7t [place] [address] Care Team Providers Care Steersman Name Role Phone Ayaka Salgado MD Primary Care Provider [phone] Encounter Details Date Type Department Care Team ([facility] st Contact Info) Description 08/20/2024 Orders Only [facility] PEDS [address] [place] [address] Ayaka Salgado MD [address] [place] [address] Social History Tobacco Use Types Packs/Day Years [...] 11:00 AM EDT Office Visit [facility] [address] [place] [address] Ayaka Salgado MD [address] [place] [address] 11/24/2024 9:00 AM EDT Clinical Support [facility] [address] [place] [address] Alana Hook, RACHELLE [address] [place] [address] documented as of this encounter Visit Diagnoses Not on filedocumented in this encounter Additional Health Concerns Assessment Noted Time PHQ-9 Depression Total Score: 7 08/29/20 22 10:26 AM EST documented as of this encounter Care Teams Steersman Relationship Specialty Start Date End Date Ayaka Salgado MD [address] [place] [address] PCP - General Internal Medicine 09/15/18 documented as of this encounter
--- OUTSIDE RECORDS SUMMARY | 2024-11-08 11:18 | XMS_ITS | Clinical Summary ---
Author Organization [employer] Address [address] [place] [address] 7t [place] [address] Care Team Providers Care Glass Cutter Hand Name Role Phone Ayaka Salgado MD Primary Care Provider [phone] Allergies Active Allergy Reactions Criticality Noted Date [...] wheezing. 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) USE TO TEST BLOOD SUGAR TWICE A DAY 1 kit Active [employer] Delica Lancets 33G miscIndications:T ype 2 diabetes mellitus with nephropathy (CMS/HCC) USE TO TEST BLOOD SUGAR TWICE A DAY 100 each 5 Active glucose blood ([employer] Verio) test stripIndications: Type 2 diabetes mellitus [...] Type Department Care Team Description 11/03/2024 Refill [facility] MEDICINE [address] [place] [address] Ayaka Salgado MD Arthropathy 10/26/2024 Refill [facility] MEDICINE [address] [place] [address] Ayaka Salgado MD Primary osteoarthritis involving multiple joints 10/19/2024 Refill [facility] MEDICINE [address] [place] [address] Ayaka Salgado MD Arthropathy 09/29/2024 Refill [facility] MEDICINE [address] [place] [address] Ayaka Salgado MD Arthropathy (Primary Dx) 09/23/2024 Refill [facility] MEDICINE [address] [place] [address] Ayaka Salgado MD Primary osteoarthritis involving multiple joints 09/22/2024 Refill [facility] MEDICINE [address] [place] [address] Ayaka Salgado MD 09/08/2024 Refill [facility] MED & PEDS [address] [place] [address] Ayaka Salgado MD 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[facility]) 09/06/2024 Refill [facility] MEDICINE [address] [place] [address] Ayaka Salgado MD Back pain, unspecified back location, unspecified back pain laterality, unspecified chronicity 09/06/2024 Telephone [facility] MEDICINE [address] [place] [address] Ayaka Salgado MD Med Refill 08/31/2024 9:00 AM EST Clinical Support [facility] MED & PEDS [address] [place] [address] Alana Hook RN Back pain, unspecified back location, unspecified back pain laterality, unspecified chronicity 08/31/2024 Telephone [facility] MED & PEDS [address] [place] [address] Alana Hook RN 08/31/2024 Travel 08/20/2024 Orders Only [facility] MED & PEDS [address] [place] [address] Ayaka Salgado MD 08/20/2024 Refill [facility] MEDICINE [address] [place] [address] Ayaka Salgado MD 08/18/[address] [address] Ayaka Salgado MD 08/18/2024 Refill [facility] MED & PEDS [address] [place] [address] Ayaka Salgado MD Primary osteoarthritis involving multiple joints 08/17/2024 9:45 AM EST Office Visit [facility] MED & PEDS [address] [place] [address] Ayaka Salgado MD Chronic pruritus (Primary Dx); Pruritus scroti 08/17/2024 Travel 08/16/2024 Telephone [facility] MED & PEDS [address] [place] [address] Ayaka Salgado MD Med Refill 08/09/[address] [address] Ayaka Salgado MD Med Refill 08/09/2024 Refill [facility] MED & PEDS [address] [place] [address] Ayaka Salgado MD Back pain, unspecified back location, unspecified back pain laterality, unspecified chronicity from Last 3 Months Immunizations Name Administration [...] Upcoming Encounters Date Type Department Care Team ([facility] st Contact Info) Description 11/22/2024 11:00 AM EDT Office Visit [facility] MED & PEDS [address] [place] [address] Ayaka Salgado MD 505 [place] [address] 11/24/2024 9:00 AM EDT Clinical Support [facility] MED & PEDS [address] [place] [address] Alana Hook RN [address] [place] [address] Health Maintenance Due Date Last Done Comments [...] SDOH Screening 10/10/2023 10/10/2022 COVID-19 Vaccine ( - season) 2024 08/03/2021, 11/03/2020, 10/06/2020 Diabetes: Foot [...] RN - 08/31/2024 9:04 AM EST Lot# [id number] Exp: 08-21-25 Ayaka Salgado MD POINT OF CARE TEST ENTER/ED IT ORDERABLES Final Result * (ABNORMAL) POCT HGB A1C (07/12/2024 1:06 PM EDT) [facility] Hemoglobin A1C 6.1(A) 4.0 - 6.0 % QC Media Lot # [id number] Lot# Expiration Date Blood 07/12/2024 1:06 PM EDT Ayaka Salgado MD POINT OF CARE TEST ENTER/ED IT ORDERABLES Final Result * Diabetes Eye Exam (05/04/2024 12:18 PM EDT) Historical Provider HEALTH MAINTENANCE Final Result * (ABNORMAL) Lipid Panel, Standard (11/12/2023 9:08 AM EST) Pathologist [facility] Triglycerides 55 <150 mg/dL [facility] Comment:Desirable Triglyceri de: less than 150 mg/dLBorderline High Triglyceride 150-199 mg/dLHigh Triglyceride: 200-499 mg/dLVery High Triglyceride: greater than or equal to 5OO mg/dL Cholesterol 101 <200 mg/dL [facility] Comment:Desirable Cholestero l: less than 200 mg/dLBorderline High Cholesterol: 200-239 mg/dLHigh Cholesterol: greater than 239 mg/dL LDL Cholesterol Calculated 57 <100 mg/dL [facility] Comment:Desirable LDL: less than 100 mg/dLNear Optimal/Above Optimal LDL: 110- 129 mg/dLBorderline High LDL: 130-159 mg/dLHigh LDL: 160-189 mg/dLVery High LDL: greater than or equal to 190 mg/dL HDL Cholesterol 33(L) >40 mg/dL [facility] Comment:Desirable HDL: great er than 40 mg/dL Note: This HDL assay may give artificially low results in patients with liver disease. Blood Venous blood specimen / Unknown 11/12/2023 9:08 AM EST 11/12/2023 2:41 PM EST us Ayaka Salgado MD LAB BLOOD ORDERABLES Final Result [facility] [address] [place] [address] [phone] from Last 3 Months or Most Recently Relevant to Health Maintenance Insurance [facility] AARP MEDICARE ADVANTAGE O Care Teams Glass Cutter Hand Relationship Specialty Start Date End Date Ayaka Salgado MD [address] [place] [address] [place] [address] PCP - General Internal Medicine 09/15/18
--- OUTSIDE RECORDS SUMMARY | 2024-11-08 11:18 | XMS_ITS ---
Author Organization [facility] Address [address] [place] [address] Care Team Providers Care Small Animal Caretaker Name Role Phone Ayaka Salgado Primary Care Provider Transplant Episode Kidney Candidate [facility] ([place], [place]) - [facility] Evaluation began on 07/29/2024 Marked as Active on 07/29/2024 Kidney CoordinatorShima Springer RN Email: N/A Scores Score Value Updated Exceptions/Reas ons CPRA Not available EPTS (Calc) 43 11/08/2024 [place] Organ Diagnosis Organ Primary Contributory Kidney Diabetes Mellitus - Type II Care Team Name Role Phone Fax Email Shima Springer RN Kidney Coordinator [phone] N/A Ross Baldwin Referring Physician [phone] N/A Events Pre-Transplant Referred: 07/19/2024 Evaluation began: 07/29/2024
--- OUTSIDE RECORDS SUMMARY | 2024-11-08 11:18 | XMS_ITS | Referral Summary ---
Author Organization [facility] Address [address] [place] [address] Care Team Providers Care Test Hole Driller Name Role Phone Ayaka Salgado Primary Care Provider [phone] Encounters Date Type Department Care Team Description 09/17/2024 Telephone [facility] Transplant Department [address] [place], [place] [id number] Shima Springer RN 09/13/2024 Telephone [facility] Transplant Department [address] [place], [place] [phone] Shima Springer, RN 08/27/2024 Telephone [facility] Transplant Department [address] [place], [place] [phone] Shima Springer, RN from Last 3 Months [...] to Health Maintenance Results * Due to [place] state law, [...] MD LAB BLOOD ORDERABLES María l Result [email or web address] [address] [place] [address], * Hepatitis C Antibody w/Reflex to PCR (07/29/2024 12:57 PM EST) Hepatitis C Antibody NON-REACT [place]AN[place]ORD NON-REACT [place] 07/30/2024 3:03 AM EST [facility] Comment: HCV antibody was non-reactive. There is no laboratory evidence of HCV infection. In most cases, no further action is required. However, if recent HCV exposure is suspected, a test for HCV RNA (test code 96148) is suggested. For additional information please refer to http://education.[employer]/faq/ZYB64i6 (This link is being provided for informational/ educational purposes only.) Blood Structure of peripheral vein / Unknown Venipuncture / Unknown 07/29/2024 12:57 PM EST 07/29/2024 1:32 PM EST Narrative [facility] 07/30/2024 3:03 AM EST [facility] Received Date: Joey Duarte MD LAB BLOOD ORDERABLES María l Result [facility] [address] [facility] [address] [facility], [place] [address], [place] [phone] Trunk Archive [facility] [address] [facility] [address] [facility], [place] [address], [place] [phone] * Phosphorus (07/29/2024 12:57 PM EST) Pathologist [facility] Phosphorus 4.5 2.5 - 4.5 mg/dL 07/29/2024 2:00 PM EST [email or web address] Blood Structure of peripheral vein / Unknown Venipuncture / Unknown 07/29/2024 12:57 PM EST 07/29/2024 1:29 PM EST Joey Duarte MD LAB BLOOD ORDERABLES María l Result [facility] [address] [place] [address], * (ABNORMAL) Hemoglobin A1c (07/29/2024 12:57 PM EST) Hemoglobin A1C 6.7(H) <5.7 % of total Hgb 07/30/2024 1:59 AM EST [facility] Comment: For someone without known diabetes, a [...] (MG/DL) 146 mg/dL 07/30/2024 1:59 AM EST [facility] eAG (MMOL/L) 8.1 mmol/L 07/30/2024 1:59 AM EST [facility] Blood Structure of peripheral vein / Unknown Venipuncture / Unknown 07/29/2024 12:57 PM EST 07/29/2024 1:32 PM EST [facility]DER - 07/30/2024 1:59 AM EST [facility] Received Date: Joey Duarte MD LAB BLOOD ORDERABLES María l Result [facility] [address], [place] [address], [place] [phone] [facility] [address], [place] [address], [place] [phone] from Last 3 Months or Most Recently Relevant to Health Maintenance Insurance [facility] MCR REPLACE AARP [facility] [place] [id number] [facility] MCR REPLACE [facility] [place] [id number] Advance Directives Documents on File Type Date Recorded Patient Crotch Piece B[employer] Health Care Proxy 08/05/2024 4:14 PM 11-1 Care Teams Test Hole Driller Relationship Specialty Start Date End Date Ayaka Salgado [address] [place] [address] [place] [address] PCP - General Internal Medicine 07/29/24
--- OUTSIDE RECORDS SUMMARY | 2024-11-08 11:18 | XMS_ITS | Encounter Summary ---
Author Organization [employer] Address [address] [place] [address] 7 [place] [address] Care Team Providers Care Home Theater Installer Name Role Phone Ayaka Salgado MD Primary Care Provider [phone] Reason for Visit * Reason Comments Med Refill Encounter Details Date Type Department Care Team ([facility] Contact Info) Description 02/24/2023 Refill [facility] CHC MED & PEDS [address] [place] [address] Ayaka Salgado MD [address] [place] [address] Social History Tobacco Use Types Packs/Day Years [...] Upcoming Encounters Date Type Department Care Team ([facility] st Contact Info) Description 11/22/2024 11:00 AM EDT Office Visit [facility] MED & PEDS [address] [place] [address] Ayaka Salgado MD [address] [place] [address] 11/24/2024 9:00 AM EDT Clinical Support [facility] MED & PEDS [address] [place] [address] Alana Hook, RACHELLE [address] [place] [address] documented as of this encounter Visit Diagnoses Not on filedocumented in this encounter Additional Health Concerns Assessment Noted Time PHQ-9 Depression Total Score: 7 08/29/20 22 10:26 AM EST documented as of this encounter Care Teams Home Theater Installer Relationship Specialty Start Date End Date Ayaka Salgado MD [address] [place] [address] PCP - General Internal Medicine 09/15/18 documented as of this encounter
--- OUTSIDE RECORDS SUMMARY | 2024-11-08 11:18 | XMS_ITS | Encounter Summary ---
Author Organization [facility] Address [address] [place] [address] Care Team Providers Care Photographic Printer Name Role Phone Ayaka Salgado Primary Care Provider Encounter Details Date Type Department Care Team (Late st Contact Info) Description 07/29/2024 Orders Only [facility] XRay [address] [place], [place] [phone] Waqas Garnett MD [address] [place], [place] [phone] Social History Tobacco Use Types Packs/Day Years [...] on filedocumented in this encounter Care Teams Photographic Printer Relationship Specialty Start Date End Date Ayaka Salgado [address] [place] [address] PCP - General Internal Medicine 07/29/24 documented as of this encounter
--- OUTSIDE RECORDS SUMMARY | 2024-11-08 11:19 | XMS_ITS | Encounter Summary ---
Author Organization [employer] Address [address] [facility] 7 [place] [address] Care Team Providers Care Rug Frame Mounter Name Role Phone Ayaka Salgado MD Primary Care Provider [phone] Reason for Visit * Reason Comments Med Refill Encounter Details Date Type Department Care Team (Late st Contact Info) Description 10/07/2022 Refill [facility] [address] [place] [address] Ayaka Salgado MD [address] [facility] [address] [place] [address] Primary osteoarthritis involving multiple joints Social History [...] 11/22/2024 11:00 AM EDT Office Visit [facility] MED & PEDS [address] [place] [address] Ayaka Salgado MD 505 [place] [address] 11/24/2024 9:00 AM EDT Clinical Support [facility] MED & PEDS [address] [place] [address] Alana Hook RN 505 [place] [address] documented as of this encounter Visit Diagnoses Diagnosis Primary osteoarthritis involving multiple joints documented in this encounter Additional Health Concerns Assessment Noted Time PHQ-9 Depression Total Score: 7 08/29/20 22 10:26 AM EST documented as of this encounter Care Teams Rug Frame Mounter Relationship Specialty Start Date End Date Ayaka Salgado MD [address] [place] [address] PCP - General Internal Medicine 09/15/18 documented as of this encounter
--- OUTSIDE RECORDS SUMMARY | 2024-11-08 11:19 | XMS_ITS | Encounter Summary ---
Author Organization [employer] Address [address] [facility] 7t [place] [address] Care Team Providers Care Accounts Payable Specialist Name Role Phone Ayaka Salgado MD Primary Care Provider [phone] Encounter Details Date Type Department Care Team ([facility] st Contact Info) Description 08/18/2024 Telephone [facility] MEDICINE [address] [place] [address] Ayaka Salgado MD [address] [place] [address] Social History Tobacco Use Types Packs/Day Years [...] [facility] [place] MED & PEDS [address] [place] [address] Ayaka Salgado MD [address] [place] [address] 11/24/2024 9:00 AM EDT Clinical Support [facility] [place] MED & PEDS [address] [place] [address] Alana Hook, RACHELLE [address] [place] [address] documented as of this encounter Visit Diagnoses Not on filedocumented in this encounter Additional Health Concerns Assessment Noted Time PHQ-9 Depression Total Score: 7 08/29/20 22 10:26 AM EST documented as of this encounter Care Teams Accounts Payable Specialist Relationship Specialty Start Date End Date Ayaka Salgado MD [address] [place] [address] PCP - General Internal Medicine 09/15/18 documented as of this encounter
--- OUTSIDE RECORDS SUMMARY | 2024-11-08 11:19 | XMS_ITS | Encounter Summary ---
Author Organization [employer] Address [address] [facility] 7 [place] [address] Care Team Providers Care Consulting Psychologist Name Role Phone Ayaka Salgado MD Primary Care Provider [phone] Reason for Visit * Reason Onset Date Comments Med Refill 10/19/2024 Encounter Details Date Type Department Care Team (Late st Contact Info) Description 10/19/2024 Refill [facility] MEDICINE [address] [place] [address] Ayaka Salgado MD 505 [facility] [place] [address] Arthropathy Social History Tobacco Use Types Packs/Day [...] 5-325 MG tablet To be sent to: [id number] [place], [place] - [facility] [address] [address] AT [facility] [address] documented in this encounter Plan of Treatment Upcoming Encounters Date Type Department Care Team ([facility] st Contact Info) Description 11/22/2024 11:00 AM EDT Office Visit [facility] MED & PEDS [address] [place] [address] Ayaka Salgado MD [address] [place] [address] 11/24/2024 9:00 AM EDT Clinical Support [facility] MED & PEDS [address] [place] [address] Alana Hook RN 505 [place] [address] documented as of this encounter Visit Diagnoses Diagnosis Arthropathy Unspecified arthropathy, site unspecified documented in this encounter Additional Health Concerns Assessment Noted Time PHQ-9 Depression Total Score: 7 08/29/20 22 10:26 AM EST documented as of this encounter Care Teams Consulting Psychologist Relationship Specialty Start Date End Date Ayaka Salgado MD [address] [place] [address] PCP - General Internal Medicine 09/15/18 documented as of this encounter"
--- OUTSIDE RECORDS SUMMARY | 2024-11-08 11:19 | XMS_ITS | Encounter Summary ---
Author Organization [employer] Address [address] [facility] 7t [place] [address] Care Team Providers Care Club Steward Name Role Phone Ayaka Salgado MD Primary Care Provider [phone] Encounter Details Date Type Department Care Team ([facility] st Contact Info) Description 04/29/2024 Telephone [facility] MEDICINE [address] [place] [address] Ayaka Salgado MD [address] [place] [address] Social History Tobacco Use Types Packs/Day Years [...] 10 MG tablet To be sent to: [facility][id number] - [place], [place] - [address] [facility] [address] documented in this encounter Plan of Treatment Upcoming Encounters Date Type Department Care Team ([facility] st Contact Info) Description 11/22/2024 11:00 AM EDT Office Visit [facility] MED & PEDS [address] [place] [address] Ayaka Salgado MD [address] [place] [address] 11/24/2024 9:00 AM EDT Clinical Support [facility] MED & PEDS [address] [place] [address] Alana Hook RN 505 [place] [address] documented as of this encounter Visit Diagnoses Not on filedocumented in this encounter Additional Health Concerns Assessment Noted Time PHQ-9 Depression Total Score: 7 08/29/20 22 10:26 AM EST documented as of this encounter Care Teams Club Steward Relationship Specialty Start Date End Date Ayaka Salgado MD [address] [place] [address] PCP - General Internal Medicine 09/15/18 documented as of this encounter
--- OUTSIDE RECORDS SUMMARY | 2024-11-08 11:19 | XMS_ITS ---
Author Organization [facility] Address [address] [place] [address] 7 [place] [address] Care Team Providers Care Computer Video Game Designer Name Role Phone Ayaka Salgado MD Primary Care Provider [phone] FUNERAL LOCATION MANAGER Status:Enrolled (Active) Start date:12/20/2022 Enrollment date:12/20/2022 Case Team Name Relationship Phone Alana Hook RN Registered Nurse(Responsible S taff) Continued Care and Services Coordination
--- OUTSIDE RECORDS SUMMARY | 2024-11-08 11:19 | XMS_ITS | Encounter Summary ---
Author Organization [employer] Address [address] [facility] 7 [place] [address] Care Team Providers Care Rn Transitional Name Role Phone Ayaka Salgado MD Primary Care Provider [phone] Reason for Visit * Reason Onset Date Comments Med Refill 08/09/2024 Encounter Details Date Type Department Care Team ([facility] st Contact Info) Description 08/09/2024 Telephone [facility] MEDICINE [address] [place] [address] Ayaka Salgado MD 505 [facility] [place] [address] Med Refill Social History Tobacco Use Types [...] 5-325 MG tablet To be sent to: [facility][id number] documented in this encounter Plan of Treatment Upcoming Encounters Date Type Department Care Team ([facility] st Contact Info) Description 11/22/2024 11:00 AM EDT Office Visit [facility] MED & PEDS [address] [place] [address] Ayaka Salgado MD 505 [place] [address] 11/24/2024 9:00 AM EDT Clinical Support [facility] MED & PEDS [address] [place] [address] Alana Hook RN 505 [place] [address] documented as of this encounter Visit Diagnoses Not on filedocumented in this encounter Additional Health Concerns Assessment Noted Time PHQ-9 Depression Total Score: 7 08/29/20 22 10:26 AM EST documented as of this encounter Care Teams Rn Transitional Relationship Specialty Start Date End Date Ayaka Salgado MD [address] [place] [address] PCP - General Internal Medicine 09/15/18 documented as of this encounter
--- OUTSIDE RECORDS SUMMARY | 2024-11-08 11:19 | XMS_ITS | Encounter Summary ---
Author Organization [employer] Address 75 [facility] 7 [place] [address] Care Team Providers Care Retail Parts Pro Name Role Phone Ayaka Salgado MD Primary Care Provider [phone] Reason for Visit * Reason Onset Date Comments Med Refill 10/26/2024 Encounter Details Date Type Department Care Team (Late st Contact Info) Description 10/26/2024 Refill [facility] MEDICINE [address] [place] [address] Ayaka Salgado MD 505 [facility] [place] [address] Primary osteoarthritis involving multiple joints Social History [...] 10 MG tablet To be sent to: [facility][id number] [place], [place] - [facility] [place] [address] AT [facility] & [address] documented in this encounter Plan of Treatment Upcoming Encounters Date Type Department Care Team ([facility] st Contact Info) Description 11/22/2024 11:00 AM EDT Office Visit [facility] MED & PEDS [address] [place] [address] Ayaka Salgado MD 505 [place] [address] 11/24/2024 9:00 AM EDT Clinical Support [facility] MED & PEDS [address] [place] [address] Alana Hook RN 505 [place] [address] documented as of this encounter Visit Diagnoses Diagnosis Primary osteoarthritis involving multiple joints documented in this encounter Additional Health Concerns Assessment Noted Time PHQ-9 Depression Total Score: 7 08/29/20 22 10:26 AM EST documented as of this encounter Care Teams Retail Parts Pro Relationship Specialty Start Date End Date Ayaka Salgado MD [address] [place] [address] PCP - General Internal Medicine 09/15/18 documented as of this encounter
--- OUTSIDE RECORDS SUMMARY | 2024-11-08 11:19 | XMS_ITS | Encounter Summary ---
Author Organization [facility] Address [address] [place] [address] 7 [place] [address] Care Team Providers Care Pizzamaker Name Role Phone Ayaka Salgado MD Primary Care Provider [phone] Reason for Visit * Reason Onset Date Comments Letter Accomodation 12/12/2022 Encounter Details Date Type Department Care Team ([facility] st Contact Info) Description 12/12/2022 Telephone [facility] CHC MED & PEDS [address] [place] [address] Ayaka Salgado MD [address] [place] [address] Letter Accomodation Social History Tobacco Use Types [...] hisPercocet. Advised message will be forwarded to MANUFACTURING ENGINEER AUTOMOTIVE nurse regarding his request. Pt verbalizes understanding. * Telephone Encounter - Abiel Mills - 12/12/2022 9:32 AM EDT Tc from pt requesting an Accomodation letter. Please contact pt at [phone] documented in this encounter Plan of Treatment Upcoming Encounters Date Type Department Care Team ([facility] st Contact Info) Description 11/22/2024 11:00 AM EDT Office Visit [facility] MED & PEDS [address] [place] [address] Ayaka Salgado MD [address] [place] [address] 11/24/2024 9:00 AM EDT Clinical Support [facility] MED & PEDS [address] [place] [address] Alana Hook, RACHELLE 505 [place] [address] documented as of this encounter Visit Diagnoses Diagnosis Congestive heart failure, unspecified HF chronicity, unspecified heart failure type (CMS/HCC) Primary osteoarthritis involving multiple joints documented in this encounter Additional Health Concerns Assessment Noted Time PHQ-9 Depression Total Score: 7 08/29/20 22 10:26 AM EST documented as of this encounter Care Teams Pizzamaker Relationship Specialty Start Date End Date Ayaka Salgado MD [address] [place] [address] PCP - General Internal Medicine 09/15/18 documented as of this encounter
--- OUTSIDE RECORDS SUMMARY | 2024-11-08 11:19 | XMS_ITS | Encounter Summary ---
Author Organization [employer] Address [address] [place] [address] 7 [place] [address] Care Team Providers Care Group Leader Name Role Phone Ayaka Salgado MD Primary Care Provider [phone] Reason for Visit * Reason Onset Date Comments Med Refill 12/12/2022 Encounter Details Date Type Department Care Team ([facility] st Contact Info) Description 12/12/2022 Telephone [facility] CHC MED & PEDS 505 [place] [address] Ayaka Salgado MD 505 [place] [address] Med Refill Social History Tobacco Use Types [...] (Norvasc) 5 MG tablet Please sent to [id number] - [place], [place] - [address] [facility] documented in this encounter Plan of Treatment Upcoming Encounters Date Type Department Care Team ([facility] st Contact Info) Description 11/22/2024 11:00 AM EDT Office Visit [facility] MED & PEDS [address] [place] [address] Ayaka Salgado MD [address] [place] [address] 11/24/2024 9:00 AM EDT Clinical Support [facility] MED & PEDS [address] [place] [address] Alana Hook, RACHELLE 505 [place] [address] documented as of this encounter Visit Diagnoses Not on filedocumented in this encounter Additional Health Concerns Assessment Noted Time PHQ-9 Depression Total Score: 7 08/29/20 22 10:26 AM EST documented as of this encounter Care Teams Group Leader Relationship Specialty Start Date End Date Ayaka Salgado MD [address] [place] [address] PCP - General Internal Medicine 09/15/18 documented as of this encounter
--- OUTSIDE RECORDS SUMMARY | 2024-11-08 11:19 | XMS_ITS | Encounter Summary ---
Author Organization [employer] Address [address] [place] [address] 7 [place] [address] Care Team Providers Care Hydraulic And Plumbing Installer Name Role Phone Ayaka Salgado MD Primary Care Provider [phone] Reason for Visit * Reason Comments Med Refill Encounter Details Date Type Department [facility] 07/28/2023 Refill [facility] MED & PEDS [address] [place] [address] Ayaka Salgado MD [address] [place] [address] Social History Tobacco Use Types Packs/Day Years [...] [facility] [place] [facility] [address] [place] [address] Ayaka Salgado MD [address] [place] [address] 11/24/2024 9:00 AM EDT Clinical Support [facility] MED & PEDS [address] [place] [address] Alana Hook, RACHELLE 505 [place] [address] documented as of this encounter Visit Diagnoses Not on filedocumented in this encounter Additional Health Concerns Assessment Noted Time PHQ-9 Depression Total Score: 7 08/29/20 22 10:26 AM EST documented as of this encounter Care Teams Hydraulic And Plumbing Installer Relationship Specialty Start Date End Date Ayaka Salgado MD [address] [place] [address] PCP - General Internal Medicine 09/15/18 documented as of this encounter
--- OUTSIDE RECORDS SUMMARY | 2024-11-08 11:19 | XMS_ITS | Encounter Summary ---
Author Organization [employer] Address [address] [place] [address] 7 [place] [address] Care Team Providers Care Solo Truck Driver Name Role Phone Ayaka Salgado MD Primary Care Provider [phone] Reason for Visit * Reason Onset Date Comments Med Refill 08/05/2024 Encounter Details Date Type Department Care Team ([facility] st Contact Info) Description 08/05/2024 Refill [facility] CHC MED & PEDS [address] [place] [address] Ayaka Salgado MD [address] [place] [address] Back pain, unspecified back location, unspecified back [...] the past 12 months, has t he [employer], gas, oil or water [employer] threatened to shut off services in your [...] 5-325 MG tablet To be sent to: [facility][id number] - [place], [place] - [address] [facility] [place] documented in this encounter Plan of Treatment Upcoming Encounters Date Type Department Care Team (Late st Contact Info) Description 11/22/2024 11:00 AM EDT Office Visit [facility] MED [facility]EDS [address] [place] [address] Ayaka Salgado MD [address] [place] [address] 11/24/2024 9:00 AM EDT Clinical Support [facility] MED & PEDS [address] [place] [address] Alana Hook, RACHELLE 505 [place] [address] documented as of this encounter Visit Diagnoses Diagnosis Back pain, unspecified back location, unspecified back pain laterality, unspecified chronicity- Primary documented in this encounter Additional Health Concerns Assessment Noted Time PHQ-9 Depression Total Score: 7 08/29/20 22 10:26 AM EST documented as of this encounter Care Teams Solo Truck Driver Relationship Specialty Start Date End Date Ayaka Salgado MD [address] [place] [address] PCP - General Internal Medicine 09/15/18 documented as of this encounter
--- OUTSIDE RECORDS SUMMARY | 2024-11-08 11:19 | XMS_ITS | Clinical Summary ---
Author Organization [facility] Address [address] [place] [address] Phone Care Team Providers Care Doggy Daycare Activities Director Name Role Phone Jayme Salgado MD Primary Care Provider [phone] Allergies Active Allergy Reactions Criticality Noted Date [...] patient's age to complete this topic Insurance [facility] [place] [address] [facility] [place] [address] Care Teams Doggy Daycare Activities Director Relationship Specialty Start Date End Date Jayme Salgado MD [address] [place], [place] [address] PCP - General 09/25/20
--- OUTSIDE RECORDS SUMMARY | 2024-11-08 11:19 | XMS_ITS | Encounter Summary ---
Author Organization [employer] Address [address] [facility] 7t [place] [address] Care Team Providers Care Kiln Maintenance Name Role Phone Ayaka Salgado MD Primary Care Provider [phone] Reason for Visit * Reason Comments Med Refill Encounter Details Date Type Department Care Team (Late st Contact Info) Description 03/02/2024 Refill [facility] MEDICINE 230 [place] [address] Ayaka Salgado MD [address] [facility] [address] [place] [address] Primary osteoarthritis involving multiple joints Social History [...] 11:00 AM EDT Office Visit [facility] MED & PEDS 505 [place] [address] Ayaka Salgado MD 505 [place] [address] 11/24/2024 9:00 AM EDT Clinical Support [facility] MED & PEDS 505 [place] [address] Alana Hook, RACHELLE 505 [place] [address] documented as of this encounter Visit Diagnoses Diagnosis Primary osteoarthritis involving multiple joints documented in this encounter Additional Health Concerns Assessment Noted Time PHQ-9 Depression Total Score: 7 08/29/20 22 10:26 AM EST documented as of this encounter Care Teams Kiln Maintenance Relationship Specialty Start Date End Date Ayaka Salgado MD 505 [place] [address] PCP - General Internal Medicine 09/15/18 documented as of this encounter
--- OUTSIDE RECORDS SUMMARY | 2024-11-08 11:19 | XMS_ITS | Encounter Summary ---
Author Organization [employer] Address 75 [facility] 7 [place] [address] Care Team Providers Care Supervisor Major Appliance Assembly Name Role Phone Ayaka Salgado MD Primary Care Provider [phone] Reason for Visit * Reason Onset Date Comments Med Refill 12/01/2023 Encounter Details Date Type Department Care Team ([facility] st Contact Info) Description 12/01/2023 Telephone [facility] MEDICINE 230 [place] [address] Ayaka Salgado MD 505 [facility] [place] [address] Med Refill Social History Tobacco Use Types [...] 10 MG tablet To be sent to: [id number] [place] - [facility] [address] [facility] documented in this encounter Plan of Treatment Upcoming Encounters Date Type Department Care Team ([facility] st Contact Info) Description 11/22/2024 11:00 AM EDT Office Visit [facility] MED & PEDS 505 [place] [address] Ayaka Salgado MD 505 [place] [address] 11/24/2024 9:00 AM EDT Clinical Support [facility] MED & PEDS 505 [place] [address] Alana Hook, RACHELLE 505 [place] [address] documented as of this encounter Visit Diagnoses Not on filedocumented in this encounter Additional Health Concerns Assessment Noted Time PHQ-9 Depression Total Score: 7 08/29/20 22 10:26 AM EST documented as of this encounter Care Teams Supervisor Major Appliance Assembly Relationship Specialty Start Date End Date Ayaka Salgado MD [address] [place] [address] PCP - General Internal Medicine 09/15/18 documented as of this encounter
--- OUTSIDE RECORDS SUMMARY | 2024-11-08 11:19 | XMS_ITS | Encounter Summary ---
Author Organization [employer] Address [address] [facility] 7 [place] [address] Care Team Providers Care Network Systems Consultant Name Role Phone Ayaka Salgado MD Primary Care Provider [phone] Reason for Visit * Reason Onset Date Comments Med Refill 07/31/2023 Encounter Details Date Type Department Care Team ([facility] st Contact Info) Description 07/31/2023 Telephone [facility] MEDICINE 230 [place] [address] Ayaka Salgado MD 505 [facility] [place] [address] Med Refill Social History Tobacco Use Types [...] Upcoming Encounters Date Type Department Care Team ([facility] st Contact Info) Description 11/22/2024 11:00 AM EDT Office Visit [facility] MED & PEDS 505 [place] [address] Ayaka Salgado MD 505 [place] [address] 11/24/2024 9:00 AM EDT Clinical Support [facility] MED & PEDS 505 [place] [address] Alana Hook RN 505 [place] [address] documented as of this encounter Visit Diagnoses Not on filedocumented in this encounter Additional Health Concerns Assessment Noted Time PHQ-9 Depression Total Score: 7 08/29/20 22 10:26 AM EST documented as of this encounter Care Teams Network Systems Consultant Relationship Specialty Start Date End Date Ayaka Salgado MD [address] [place] [address] PCP - General Internal Medicine 09/15/18 documented as of this encounter
--- OUTSIDE RECORDS SUMMARY | 2024-11-08 11:19 | XMS_ITS | Encounter Summary ---
Author Organization [employer] Address 75 [facility] 7t [place] [address] Care Team Providers Care Dedicated Intermodal Truck Driver Name Role Phone Ayaka Salgado MD Primary Care Provider [phone] Reason for Visit * Reason Comments Med Refill Encounter Details Date Type Department Care Team ([facility] st Contact Info) Description 06/15/2024 Refill [facility] MEDICINE 230 [place], [place] [phone] Lev Gentile MD 230 [place] [address] Chronic pruritus Social History Tobacco Use Types [...] [facility] MED & PEDS 505 [place] [address] Ayaka Salgado MD 505 [place] [address] 11/24/2024 9:00 AM EDT Clinical Support [facility] MED & PEDS 505 [place] [address] Alana Hook, RACHELLE 505 [place] [address] documented as of this encounter Visit Diagnoses Diagnosis Chronic pruritus documented in this encounter Additional Health Concerns Assessment Noted Time PHQ-9 Depression Total Score: 7 08/29/20 22 10:26 AM EST documented as of this encounter Care Teams Dedicated Intermodal Truck Driver Relationship Specialty Start Date End Date Ayaka Salgado MD 505 [place] [address] PCP - General Internal Medicine 09/15/18 documented as of this encounter
--- OUTSIDE RECORDS SUMMARY | 2024-11-08 11:19 | XMS_ITS | Encounter Summary ---
Author Organization [employer] Address 75 [facility] 7t [place] [address] Care Team Providers Care Mushroom Cultivator Name Role Phone Ayaka Salgado MD Primary Care Provider [phone] Encounter Details Date Type Department Care Team ([facility] st Contact Info) Description 09/22/[address] [facility] MED & PEDS 505 [place] [address] Ayaka Salgado MD 505 [place] [address] Simple chronic bronchitis (CMS/HCC) (Primary Dx) Social [...] [facility] 505 [place] [address] Ayaka Salgado MD 505 [place] [address] 11/24/2024 9:00 AM EDT Clinical Support [facility] MED & PEDS 505 [place] [address] Alana Hook, RACHELLE 505 [place] [address] documented as of this encounter Visit Diagnoses Diagnosis Simple chronic bronchitis (CMS/HCC)- Primary Simple chronic bronchitis documented in this encounter Additional Health Concerns Assessment Noted Time PHQ-9 Depression Total Score: 7 08/29/20 22 10:26 AM EST documented as of this encounter Care Teams Mushroom Cultivator Relationship Specialty Start Date End Date Ayaka Salgado MD 505 [place] [address] PCP - General Internal Medicine 09/15/18 documented as of this encounter
--- OUTSIDE RECORDS SUMMARY | 2024-11-08 11:19 | XMS_ITS | Encounter Summary ---
Author Organization [employer] Address [address] [place] [address] 7 [place] [address] Care Team Providers Care Song And Dance Performer Name Role Phone Ayaka Salgado MD Primary Care Provider [phone] Reason for Visit * Reason Onset Date Comments Med Refill 12/12/2022 Encounter Details Date Type Department Care Team ([facility] st Contact Info) Description 12/12/2022 Telephone [facility] MED & PEDS 505 [place] [address] Ayaka Salgado MD 505 [place] [address] Med Refill Social History Tobacco Use Types [...] (Percocet) 5-325 MG tablet Please sent to [id number] - [place], [place] - [address] [facility] documented in this encounter Plan of Treatment Upcoming Encounters Date Type Department Care Team (Late st Contact Info) Description 11/22/2024 11:00 AM EDT Office Visit [facility] MED & PEDS 505 [place] [address] Ayaka Salgado MD 505 [place] [address] 11/24/2024 9:00 AM EDT Clinical Support [facility] MED & PEDS 505 [place] [address] Alana Hook, RACHELLE 505 [place] [address] documented as of this encounter Visit Diagnoses Not on filedocumented in this encounter Additional Health Concerns Assessment Noted Time PHQ-9 Depression Total Score: 7 08/29/20 22 10:26 AM EST documented as of this encounter Care Teams Song And Dance Performer Relationship Specialty Start Date End Date Ayaka Salgado MD 505 [place] [address] PCP - General Internal Medicine 09/15/18 documented as of this encounter
--- OUTSIDE RECORDS SUMMARY | 2024-11-08 11:19 | XMS_ITS | Encounter Summary ---
Author Organization [employer] Address [address] [place] [address] 7t [place] [address] Care Team Providers Care Manager Sales Support Name Role Phone Ayaka Salgado MD Primary Care Provider [phone] Encounter Details Date Type Department Care Team (Late st Contact Info) Description 02/19/2023 Abstract [facility] 230 [place] [address] Ayaka Salgado MD 505 [place], [place] [phone] Social History Tobacco Use Types Packs/Day Years [...] AM EDT Office Visit [facility] MED & PEDS 505 [place] [address] Ayaka Salgado MD 505 [place] [address] 11/24/2024 9:00 AM EDT Clinical Support [facility] MED & PEDS 505 [place] [address] Alana Hook RN 505 [place] [address] documented as of this encounter Visit Diagnoses Not on filedocumented in this encounter Additional Health Concerns Assessment Noted Time PHQ-9 Depression Total Score: 7 08/29/20 22 10:26 AM EST documented as of this encounter Care Teams Manager Sales Support Relationship Specialty Start Date End Date Ayaka Salgado MD 505 [place] [address] PCP - General Internal Medicine 09/15/18 documented as of this encounter
--- OUTSIDE RECORDS SUMMARY | 2024-11-08 11:19 | XMS_ITS | Encounter Summary ---
Author Organization [employer] Address 75 [facility] 7 [place] [address] Care Team Providers Care Carbide Die Maker Name Role Phone Ayaka Salgado MD Primary Care Provider [phone] Reason for Visit * Reason Onset Date Comments Med Refill 05/11/2024 Encounter Details Date Type Department Care Team ([facility] st Contact Info) Description 05/11/2024 Telephone [facility] MEDICINE 230 [place] [address] Ayaka Salgado MD 505 [facility] [place] [address] Med Refill Social History Tobacco Use Types [...] 5-325 MG tablet To be sent to: [facility] documented in this encounter Plan of Treatment Upcoming Encounters Date Type Department Care Team ([facility] st Contact Info) Description 11/22/2024 11:00 AM EDT Office Visit [facility] MED & PEDS 505 [place] [address] Ayaka Salgado MD 505 [place] [address] 11/24/2024 9:00 AM EDT Clinical Support [facility] MED & PEDS 505 [place] [address] Alana Hook RN 505 [place] [address] documented as of this encounter Visit Diagnoses Not on filedocumented in this encounter Additional Health Concerns Assessment Noted Time PHQ-9 Depression Total Score: 7 08/29/20 22 10:26 AM EST documented as of this encounter Care Teams Carbide Die Maker Relationship Specialty Start Date End Date Ayaka Salgado MD [address] [place] [address] PCP - General Internal Medicine 09/15/18 documented as of this encounter
--- OUTSIDE RECORDS SUMMARY | 2024-11-08 11:19 | XMS_ITS | Encounter Summary ---
Author Organization [facility] [address] [facility] 200 [place] [address] Phone Care Team Providers Care Cardiovascular Rn Name Role Phone Jayme Salgado MD Primary Care Provider [phone] Reason for Visit * Reason Comments Med Refill Encounter Details Date Type Department Care Team (Late st Contact Info) Description 04/28/2023 Refill [facility] [address] [place] [place] [id number] Mumtaz Childress MD [address] [facility] 204 [place] [address] Type 2 diabetes mellitus with [...] (HCC) documented in this encounter Care Teams Cardiovascular Rn Relationship Specialty Start Date End Date Jayme Salgado MD [address] [place] [address] PCP - General 09/25/20 documented as of this encounter
--- OUTSIDE RECORDS SUMMARY | 2024-11-08 11:19 | XMS_ITS | Encounter Summary ---
Author Organization [employer] Address [address] [facility] [address] 7t [place] [address] Care Team Providers Care Electronic Specialist Name Role Phone Ayaka Salgado MD Primary Care Provider [phone] Encounter Details Date Type Department Care Team ([facility] st Contact Info) Description 06/25/[address] [facility] MED & PEDS [address] [place] [address] ProviderRan MD Social History Tobacco Use Types [...] [facility] MED & PEDS 505 [place] [address] Ayaka Salgado MD 505 [place] [address] 11/24/2024 9:00 AM EDT Clinical Support [facility] MED & PEDS 505 [place] [address] Alana Hook RN 505 [place] [address] documented as of this encounter Procedures Procedure [...] documented as of this encounter Care Teams Electronic Specialist Relationship Specialty Start Date End Date Ayaka Salgado MD 505 [place] [address] PCP - General Internal Medicine 09/15/18 documented as of this encounter
--- OUTSIDE RECORDS SUMMARY | 2024-11-08 11:19 | XMS_ITS | Encounter Summary ---
Author Organization [employer] Address 75 [facility] 7 [place] [address] Care Team Providers Care Fire Safety Inspector Name Role Phone Ayaka Salgado MD Primary Care Provider [phone] Reason for Visit * Reason Onset Date Comments Med Refill 09/29/2024 Encounter Details Date Type Department Care Team (Late st Contact Info) Description 09/29/2024 Refill [facility] MEDICINE 230 [place] [address] Ayaka Salgado MD 505 [facility] [place] [phone] Arthropathy (Primary Dx) Social History Tobacco Use [...] 5-325 MG tablet To be sent to: [facility][id number] [place], [place] - [address] [place] [address] AT [facility] documented in this encounter Plan of Treatment Upcoming Encounters Date Type Department Care Team ([facility] st Contact Info) Description 11/22/2024 11:00 AM EDT Office Visit [facility] MED & PEDS 505 [place] [address] Ayaka Salgado MD 505 [place] [address] 11/24/2024 9:00 AM EDT Clinical Support [facility] MED & PEDS 505 [place] [address] Alana Hook RN 505 [place] [address] documented as of this encounter Visit Diagnoses Diagnosis Arthropathy- Primary Unspecified arthropathy, site unspecified documented in this encounter Additional Health Concerns Assessment Noted Time PHQ-9 Depression Total Score: 7 08/29/20 22 10:26 AM EST documented as of this encounter Care Teams Fire Safety Inspector Relationship Specialty Start Date End Date Ayaka Salgado MD 505 [place] [address] PCP - General Internal Medicine 09/15/18 documented as of this encounter
--- OUTSIDE RECORDS SUMMARY | 2024-11-08 11:19 | XMS_ITS | Encounter Summary ---
Author Organization [employer] Address 75 [facility] 7t [place] [address] Care Team Providers Care B2B Sales Consultant Name Role Phone Ayaka Salgado MD Primary Care Provider [phone] Encounter Details Date Type Department Care Team ([facility] st Contact Info) Description 05/26/2024 Orders Only [facility] MED & PEDS 505 [place] [address] Ayaka Salgado MD 505 [place] [address] Simple chronic bronchitis (CMS/HCC) (Primary Dx) Social [...] 11:00 AM EDT Office Visit [facility] MED & PEDS 505 [place] [address] Ayaka Salgado MD 505 [place] [address] 11/24/2024 9:00 AM EDT Clinical Support [facility] MED & PEDS 505 [place] [address] Alana Hook, RACHELLE 505 [place] [address] documented as of this encounter Visit Diagnoses Diagnosis Simple chronic bronchitis (CMS/HCC)- Primary Simple chronic bronchitis documented in this encounter Additional Health Concerns Assessment Noted Time PHQ-9 Depression Total Score: 7 08/29/20 22 10:26 AM EST documented as of this encounter Care Teams B2B Sales Consultant Relationship Specialty Start Date End Date Ayaka Salgado MD 505 [place] [address] PCP - General Internal Medicine 09/15/18 documented as of this encounter
--- OUTSIDE RECORDS SUMMARY | 2024-11-08 11:19 | XMS_ITS | Encounter Summary ---
Author Organization [employer] Address [address] [place] [address] 7 [place] [address] Care Team Providers Care Lifts And Cranes Inspector Name Role Phone Ayaka Salgado MD Primary Care Provider [phone] Encounter Details Date Type Department Care Team (Late st Contact Info) Description 01/23/2023 Abstract [facility] 230 [place] [address] Ayaka Salgado MD 505 [place], [place] [phone] Social History Tobacco Use Types Packs/Day Years [...] [facility] 505 [place] [address] Ayaka Salgado MD 505 [place] [address] 11/24/2024 9:00 AM EDT Clinical Support [facility] MED & PEDS 505 [place] [address] Alana Hook RN 505 [place] [address] documented as of this encounter Visit Diagnoses Not on filedocumented in this encounter Additional Health Concerns Assessment Noted Time PHQ-9 Depression Total Score: 7 08/29/20 22 10:26 AM EST documented as of this encounter Care Teams Lifts And Cranes Inspector Relationship Specialty Start Date End Date Ayaka Salgado MD 505 [place] [address] PCP - General Internal Medicine 09/15/18 documented as of this encounter
--- OUTSIDE RECORDS SUMMARY | 2024-11-08 11:19 | XMS_ITS | Encounter Summary ---
Author Organization [employer] Address 75 [facility] 7t [place] [address] Care Team Providers Care Grain Elevator Motor Starter Name Role Phone Ayaka Salgado MD Primary Care Provider [phone] Encounter Details Date Type Department Care Team (Late st Contact Info) Description 10/11/2022 Orders Only [facility] MEDICINE 230 [place] [address] Ayaka Salgado MD [address] [facility] [place] [address] Congestive heart failure, unspecified HF chronicity, unspecified [...] Visit [facility] MED & PEDS 505 [place] [address] Ayaka Salgado MD 505 [place] [address] 11/24/2024 9:00 AM EDT Clinical Support [facility] MED & PEDS 505 [place] [address] Alana Hook RN 505 [place] [address] documented as of this encounter Visit Diagnoses Diagnosis Congestive heart failure, unspecified HF chronicity, unspecified heart failure type (CMS/HCC) Edema of foot Edema documented in this encounter Additional Health Concerns Assessment Noted Time PHQ-9 Depression Total Score: 7 08/29/20 22 10:26 AM EST documented as of this encounter Care Teams Grain Elevator Motor Starter Relationship Specialty Start Date End Date Ayaka Salgado MD [address] [place] [address] PCP - General Internal Medicine 09/15/18 documented as of this encounter
--- OUTSIDE RECORDS SUMMARY | 2024-11-08 11:19 | XMS_ITS | Encounter Summary ---
Author Organization [employer] [facility] Address 75 [facility] 7 [place] [address] Care Team Providers Care Radiologic Technician Name Role Phone Ayaka Salgado MD Primary Care Provider [phone] Reason for Visit * Reason Onset Date Comments r/s appt 08/23/2022 Encounter Details Date Type Department Care Team (Late st Contact Info) Description 08/23/2022 Telephone [facility] MEDICINE 230 [place] [address] Ayaka Salgado MD 505 [facility] [place] [address] r/s appt Social History Tobacco Use Types [...] appt has been canceled. Please contact at [phone] documented in this encounter Plan of Treatment Upcoming Encounters Date Type Department Care Team (Late Contact Info) Description 11/22/2024 11:00 AM EDT Office Visit [facility] MED & PEDS 505 [place] [address] Ayaka Salgado MD 505 [place] [address] 11/24/2024 9:00 AM EDT Clinical Support [facility] MED & PEDS 505 [place] [address] Alana Hook RN 505 [place] [address] documented as of this encounter Visit Diagnoses Not on filedocumented in this encounter Care Teams Radiologic Technician Relationship Specialty Start Date End Date Ayaka Salgado MD 505 [place] [address] PCP - General Internal Medicine 09/15/18 documented as of this encounter
--- OUTSIDE RECORDS SUMMARY | 2024-11-08 11:19 | XMS_ITS | Encounter Summary ---
Author Organization [employer] Address [address] [place] [address] 7 [place] [address] Care Team Providers Care Fuel Pilot Engineer Name Role Phone Ayaka Salgado MD Primary Care Provider [phone] Reason for Visit * Reason Comments Med Refill Encounter Details Date Type Department Care Team ([facility] st Contact Info) Description 01/06/2023 Refill [facility] MED & PEDS 505 [place] [address] Ayaka Salgado MD 505 [place] [address] Primary osteoarthritis involving multiple joints Social History [...] [facility] MED [facility] 505 [place] [address] Ayaka Salgado MD 505 [place] [address] 11/24/2024 9:00 AM EDT Clinical Support [facility] MED & PEDS 505 [place] [address] Alana Hook RN 505 [place] [address] documented as of this encounter Visit Diagnoses Diagnosis Primary osteoarthritis involving multiple joints documented in this encounter Additional Health Concerns Assessment Noted Time PHQ-9 Depression Total Score: 7 08/29/20 22 10:26 AM EST documented as of this encounter Care Teams Fuel Pilot Engineer Relationship Specialty Start Date End Date Ayaka Salgado MD 505 [place] [address] PCP - General Internal Medicine 09/15/18 documented as of this encounter
--- OUTSIDE RECORDS SUMMARY | 2024-11-08 11:19 | XMS_ITS | Encounter Summary ---
Author Organization [employer] Address [address] [facility] 7 [place] [address] Care Team Providers Care Windscreen Fitter Name Role Phone Ayaka Salgado MD Primary Care Provider [phone] Reason for Visit * Reason Onset Date Comments Med Refill 11/03/2024 Encounter Details Date Type Department Care Team (Late st Contact Info) Description 11/03/[address] [facility] MEDICINE [address] [place] [address] Ayaka Salgado MD [address] [facility] [place] [address] Arthropathy Social History Tobacco Use Types Packs/Day [...] 5-325 MG tablet To be sent to: [id number] [place] - [facility] [address] AT [facility] [address] documented in this encounter Plan of Treatment Upcoming Encounters Date Type Department Care Team ([facility] st Contact Info) Description 11/22/2024 11:00 AM EDT Office Visit [facility] MED & PEDS [address] [place] [address] Ayaka Salgado MD 505 [place] [address] 11/24/2024 9:00 AM EDT Clinical Support [facility] MED [facility] PEDS [address] [place] [address] Alana Hook RN 505 [place] [address] documented as of this encounter Visit Diagnoses Diagnosis Arthropathy Unspecified arthropathy, site unspecified documented in this encounter Additional Health Concerns Assessment Noted Time PHQ-9 Depression Total Score: 7 08/29/20 22 10:26 AM EST documented as of this encounter Care Teams Windscreen Fitter Relationship Specialty Start Date End Date Ayaka Salgado MD [address] [place] [address] PCP - General Internal Medicine 09/15/18 documented as of this encounter
--- OUTSIDE RECORDS SUMMARY | 2024-11-08 11:19 | XMS_ITS | Encounter Summary ---
Author Organization [employer] Address 75 [facility] 7 [place] [address] Care Team Providers Care It Security Consultant Name Role Phone Ayaka Salgado MD Primary Care Provider [phone] Reason for Visit * Reason Onset Date Comments Med Refill 07/28/2023 Encounter Details Date Type Department Care Team ([facility] Contact Info) Description 07/28/2023 Telephone [facility] MED & PEDS 505 [place] [address] Ayaka Salgado MD 505 [place] [address] Med Refill Social History Tobacco Use Types [...] (Percocet) 5-325 MG tablet Please sent to [id number] - [place] - [address] [facility] documented in this encounter Plan of Treatment Upcoming Encounters Date Type Department Care Team ([facility] st Contact Info) Description 11/22/2024 11:00 AM EDT Office Visit [facility] MED & PEDS 505 [place] [address] Ayaka Salgado MD 505 [place] [address] 11/24/2024 9:00 AM EDT Clinical Support [facility] MED & PEDS [address] [place] [address] Alana Hook RN 505 [place] [address] documented as of this encounter Visit Diagnoses Not on filedocumented in this encounter Additional Health Concerns Assessment Noted Time PHQ-9 Depression Total Score: 7 08/29/20 22 10:26 AM EST documented as of this encounter Care Teams It Security Consultant Relationship Specialty Start Date End Date Ayaka Salgado MD [address] [place] [address] PCP - General Internal Medicine 09/15/18 documented as of this encounter"
== END 2024-11-08 10:41 | disposition home or self-care (01) ==
PROVIDERS: PCP Internal Medicine; Visit Provider Internal Medicine Hypertension Specialist
DX: I12.9 Hypertensive chronic kidney disease with stage 1 through stage 4 chronic kidney disease, or unspecified chronic kidney disease (principal); N18.4 Chronic kidney disease, stage 4 (severe); I50.32 Chronic diastolic (congestive) heart failure; E66.9 Obesity, unspecified; E21.3 Hyperparathyroidism, unspecified; D64.9 Anemia, unspecified; N40.1 Benign prostatic hyperplasia with lower urinary tract symptoms
CPT/HCPCS: 99214

== ENCOUNTER → 2024-11-08 10:06 | Outpatient (BNVA) | payer MEDICARE, SELFPAY | PROVIDERS: PCP Internal Medicine; Visit Provider Internal Medicine Hypertension Specialist | DX: N18.4 Chronic kidney disease, stage 4 (severe) (principal); D63.1 Anemia in chronic kidney disease; E11.22 Type 2 diabetes mellitus with diabetic chronic kidney disease; I13.0 Hypertensive heart and chronic kidney disease with heart failure and stage 1 through stage 4 chronic kidney disease, or unspecified chronic kidney disease; I50.32 Chronic diastolic (congestive) heart failure; E21.3 Hyperparathyroidism, unspecified; E66.9 Obesity, unspecified; Z68.37 Body mass index [BMI] 37.0-37.9, adult; Z79.84 Long term (current) use of oral hypoglycemic drugs | CPT/HCPCS: 96372; 99212; Q5106 ==

== ENCOUNTER 2024-11-23 06:38 | Outpatient (REF) | payer MEDICARE, SELFPAY ==
--- NOTE | ~2024-11-23 | CT_ITS ---
EXAMINATION: CT ABDOMEN AND PELVIS WITHOUT CONTRAST CLINICAL INFORMATION: Pretransplant evaluation for end-stage renal disease. COMPARISON: No prior CT. TECHNIQUE: Multidetector volumetric imaging was performed from the superior aspect of the liver through the pubic symphysis. Sagittal and coronal reformatted images were obtained on the technologist's workstation. This CT examination was performed using dose optimization techniques as appropriate, variously including the following: *Automated exposure control *Adjustment of mA and/or kV according to patient size (this includes techniques or standardized protocols for targeted exams where dose is matched to indication/reason for exam; i.e. extremities or head) *Use of iterative reconstruction technique FINDINGS: LUNG BASES: There is mild to moderate cardiac enlargement. There is no pericardial effusion. The distal esophagus and GE junction appear normal. Imaged lung bases demonstrate mild mosaic attenuation and mild linear scarring. There is a calcified granuloma abutting the left hemidiaphragm. LIVER, GALLBLADDER, AND BILIARY TREE: The unenhanced liver is mildly enlarged, with right lobe craniocaudad diameter of 22.5 cm. It is normal in attenuation without discrete abnormality. There are findings suggesting possible early cirrhosis with mild macro lobular irregular contour. No intrahepatic or extra hepatic biliary dilatation. Gallbladder demonstrates a small calcification in the anterior wall with associated mild focal wall thickening, findings suggestive of adenomyomatosis. Gallbladder is otherwise normal. PANCREAS: Unremarkable. SPLEEN: Unremarkable. ADRENAL GLANDS: Mild bilateral hyperplasia. KIDNEYS AND URETERS: Both kidneys are moderately atrophic. There is prominent perirenal stranding left greater than right. There are no renal masses allowing for unenhanced technique. There are bilateral small renal cysts, the largest in the right upper pole measuring 3.5 cm in diameter. No definite renal calculi. There is no hydronephrosis or hydroureter. BLADDER: Unremarkable. GASTROINTESTINAL TRACT: The small and large bowel are unremarkable. The appendix is unremarkable. ABDOMINAL WALL: There is a fat-containing left inguinal hernia. LYMPH NODES: None enlarged by size criteria. Increased number of small lymph nodes in the retroperitoneum abutting the aorta, presumably reactive. VASCULAR: There is extensive aortic and iliac artery atheromatous calcification, with mild ectasia however there is no aneurysm present. PELVIC VISCERA: Mild prostate enlargement, with mild protrusion of the median lobe into the bladder base. Estimated diameter is 4.6 cm. OSSEOUS STRUCTURES: No suspicious lytic or blastic bone lesion evident. There are spinal degenerative changes, and bilateral mild hip joint degenerative changes. There is an enostosis within the left intertrochanter. CT/CT abdomen pelvis wo IV con IMPRESSION: 1. Mild hepatomegaly with changes likely related to early cirrhosis. 2. Probable adenomyomatosis of the gallbladder. 3. Bilateral renal atrophy with small renal cysts. No hydronephrosis or calculi. Prominent perirenal stranding left greater than right, nonspecific. 4. Increased number of small lymph nodes in the retroperitoneum abutting the aorta, nonspecific but presumably reactive. 5. Advanced atheromatous calcification and ectasia of the aorta and iliac arteries. No discrete aneurysm. 6. Mild to moderate cardiac enlargement. Mosaic attenuation of the imaged lungs, likely air trapping. Other etiologies not excluded. 7. Additional ancillary findings as discussed in the body of the report. Electronically signed by: Hugh Card MD 11/23/2024 01:33 PM EDT
--- OUTSIDE RECORDS SUMMARY | 2024-11-23 06:40 | XMS_ITS | Encounter Summary ---
Author Organization [employer] Address 75 [facility] 7t [place] [address] Care Team Providers Care Search Engine Marketing Strategist Name Role Phone Ayaka Salgado MD Primary Care Provider [phone] Encounter Details Date Type Department Care Team ([facility] st Contact Info) Description 08/20/2024 Orders Only [facility] MED & PEDS [address] [place] [address] Ayaka Salgado MD 505 [place] [address] Social History Tobacco Use Types Packs/Day Years [facility] 505 [place] [address] Alana Hook RN 505 [place] [address] 02/22/2025 1:45 PM EDT [facility] 505 [place] [address] Ayaka Salgado MD 505 [place] [address] documented as of this encounter Visit Diagnoses Not on filedocumented in this encounter Additional Health Concerns Assessment Noted Time PHQ-9 Depression Total Score: 7 08/29/20 22 10:26 AM EST documented as of this encounter Care Teams Search Engine Marketing Strategist Relationship Specialty Start Date End Date Ayaka Salgado MD 505 [place] [address] PCP - General Internal Medicine 09/15/18 documented as of this encounter
--- OUTSIDE RECORDS SUMMARY | 2024-11-23 06:40 | XMS_ITS | Encounter Summary ---
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
--- OUTSIDE RECORDS SUMMARY | 2024-11-23 06:40 | XMS_ITS | Clinical Summary ---
Author Organization [employer] Address [address] [place] [address] 7t [place] [address] Care Team Providers Care Electrolysist Name Role Phone Ayaka Salgado MD Primary Care Provider [phone] Allergies Active Allergy Reactions Criticality Noted Date [...] for wheezing. 18 g 024 2024 Active losartan (Cozaar) 100 MG tablet TAKE [...] SKIN TWICE DAILY DIRECTED 200 each 11 024 Active labetalol (Normodyne) 200 MG tablet TAKE 2 TABLETS BY MOUTH EVERY 12 HOURS 120 tablet 3 Active triamcinolone (Kenalog) 0.1 % creamIndications: Chronic pruritus Apply topically if needed in the morning and at bedtime (pain and swelling). 80 g 3 Active gabapentin (Neurontin) 300 MG capsuleIndication s:Chronic pruritus Take 1 capsule (300 mg) by mouth 3 times daily. 90 capsule 024 2024 Active hydrALAZINE (Apresoline) 100 MG tablet Take 1 tablet (100 mg) by mouth 3 times daily. TAKE 1 TABLET BY MOUTH THREE TIMES DAILY WITH FOOD 270 tablet 3 024 Active Januvia 25 MG tabletIndications :Type 2 [...] for severe pain. 42 tablet 025 Active guaiFENesin (Mucinex) 600 MG 12 hr tablet Take 2 tablets (1,200 mg) by mouth 2 times daily. Do not crush, chew, or split. 120 tablet 11 025 2025 Active Umeclidinium Maiden (Incruse Ellipta) 62.5 MCG/ACT aerosol powderIndications :Chronic obstructive pulmonary disease, unspecified COPD type (CMS/HCC) Inhale 1 Act (62.5 mcg) Once per day AND 1 Act (62.5 mcg) Once per day. 30 each 11 025 2024 Active melatonin 5 MG tabletIndications :Primary insomnia 1 tab of 5 mg at bedtime 30 tablet 3 025 Active Umeclidinium Maiden (Incruse Ellipta) 62.5 MCG/ACT aerosol powderIndications :Chronic obstructive pulmonary disease, unspecified COPD type (CMS/HCC) Inhale 62.5 mcg Once per day AND 62.5 mcg Once per day. 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); Primary insomnia 11/22/2024 Travel 11/03/2024 Refill [facility] MEDICINE [address] [place] [address] Ayaka Salgado MD Arthropathy 10/26/2024 Refill [facility] MEDICINE [address] [place] [address] Ayaka Salgado MD Primary osteoarthritis involving multiple joints 10/19/2024 Refill [facility] MEDICINE [address] [place] [address] Ayaka Salgado MD Arthropathy 09/29/2024 Refill [facility] MEDICINE [address] [place] [address] Ayaka Salgado MD Arthropathy (Primary Dx) 09/23/2024 Refill [facility] MEDICINE [address] [place] [address] Ayaka Salgado MD Primary osteoarthritis involving multiple joints 09/22/2024 Refill [facility] MEDICINE [address] [place] [address] Ayaka Salgado MD 09/08/2024 Refill [facility] MED & PEDS [address] [place] [address] Ayaka Salgado MD 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[facility]) 09/06/2024 Refill [facility] MEDICINE [address] [place] [address] Ayaka Salgado MD Back pain, unspecified back location, unspecified back pain laterality, unspecified chronicity 09/06/2024 Telephone [facility] MEDICINE [address] [place] [address] Ayaka Salgado MD Med Refill 08/31/2024 9:00 AM EST Clinical Support [facility] MED & PEDS [address] [place] [address] Alana Hook RN Back pain, unspecified back location, unspecified back pain laterality, unspecified chronicity 08/31/2024 Telephone [facility] MED & PEDS 505 [place] [address] Alana Hook RN 08/31/2024 Travel from Last 3 Months Immunizations Name Administration Dates Next Due Lindaa Covid-19 Vaccine 12+ 10/06/2020 TD (adult), 2 [...] you have a drink containing alcohol ? 2 11/22/2024 How many drinks containing a lcohol do you have on a typical day when you are drinking? 1 11/22/2024 How often do you have six or more drinks on one occasion? 0 11/22/2024 Depression Answer Date Recorded Patient Health Questionnaire-9 Score 12 11/22/2024 Patient Health Questionnaire-9 Score 12 11/22/2024 Last PHQ-9: Questionnaire Data Not on file 0 11/22/2024 Housing Stability Answer Date Recorded What is your housing situation today? I have haven mott 11/22/[address] you li ve. Do you have problems with any of the following? None of the above 11/22/2024 Food Insecurity Answer Date Recorded Within the past 12 months, y ou worried that your food would run out before you got money to buy more: Never True 11/22/2024 Within the past 12 months,th e food you bought just didn't last and you didn't have enough money to get more: Never True 06/2025 Transportation Answer Date Recorded In the past 12 months, has l ack of transportation kept you from medical appts, meetings, work or from getting things needed for daily living? No 11/22/2024 Utilities Answer Date Recorded In the past 12 months, has t he electric, gas, oil or water company threatened to shut off services in your home? No 11/22/2024 Depression Answer Date Recorded Patient Health Questionnaire-2 Score 4 11/22/2024 Internet Access Answer Date Recorded Internet Access Q1 Yes 11/22/2024 Internet Access Q2 Not on file 11/22/2024 Sex and Gender Information Value Date Recorded Sex Assigned at Male 07/15/2022 10:21 AM EDT Legal Sex Male 10:21 AM EDT Gender Identity Male 07/15/2022 10:21 AM EDT Sexual Orientation Straight 07/15/2022 10 :21 AM EDT Last Filed Vital Signs Vital Sign Reading Time Taken Comments Blood Pressure 131/73 11/22/2024 10:55 AM EDT Pulse 60 11/22/2024 10:55 AM EDT Temperature 36.7 ??C (98 ??F) 11/22/2024 10:55 AM EDT Respiratory Rate 20 11/22/2024 10:55 AM EDT Oxygen Saturation 98% 11/22/2024 10:55 AM EDT Inhaled Oxygen Concentration - - Weight 106 kg (234 lb) 11/22/2024 10:55 AM EDT Height 167.6 cm (5' 6 ) 11/22/2024 10:55 AM EDT Body Mass Index 37.77 11/22/2024 10:55 AM EDT Plan of Treatment Upcoming Encounters Date Type Department Care Team (Late st Contact Info) Description 11/24/2024 9:00 AM EDT Clinical Support [facility] MED & PEDS 505 [place] [address] Alana Hook RN 505 [place] [address] 02/22/2025 1:45 PM EDT Office Visit [facility] MED & PEDS 505 [place] [address] Ayaka Salgado MD 505 [place] [address] Health Maintenance Due Date Last Done Comments CT Colonography 1957 Colonoscopy 1957 Colorectal Cancer Screening 1957 FIT DNA/Cologuard 1957 FIT 1957 FOBT 1957 Sigmoidoscopy 1957 Hepatitis C Screening 12/09/1975 DTaP/Tdap/Td Vaccines (1 - Tdap) 09/16/2005 09/15/2005 Zoster Vaccines (1 of 2) 12/09/2007 RSV Patients and Patients Aged 60 years or older (1 - Risk 60-74 years 1-dose series) 2017 COVID-19 Vaccine ( season) 2024 08/03/2021, 11/03/2020, 10/06/2020 Diabetes: Foot Exam 10/01/2024 10/01/2023, 10/01/2023, 10/01/2023, Additional history exists Lipid Panel 11/12/2024 11/12/2023 Influenza Vaccine (#1) 2025 Postp oned from 05/16/2024 (Patient Refused) Eye Exam 05/04/2025 05/04/2024, 05/29/2023 Depression Monitoring (PHQ-9) 05/25/2025 11/22/2024, 11/22/2024 Diabetes: Hemoglobin A1C 05/25/2025 03 025, 07/12/2024, 10/01/2023, Additional history exists Pneumococcal Vaccine: 50+ Years (1 of 2 - PCV) 07/12/2025 Postponed from 1976 (Patient Refused) Alcohol/Substance Use Screening 11/22/2025 11/22/2024 Depression Screening 11/22/2025 11/22/2024, 11/23/19 25 SDOH Screening 11/22/2025 11/22/2024 Tobacco Screening 11/22/2025 11/22/2024 HIB Vaccines Aged Out No longer eligi [...] Name Priority Date/Time Associated Diagnosis Comments POCT GLYCATED HEMOGLOBIN, TOTAL Routine 11/22/2024 11:52 AM EDT 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) POCT GLUCOSE Routine 11/22/2024 11:52 AM EDT 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) POCT VESNA-14 URINE DRUG SCREEN Routine 08/31/2024 9:04 AM EST Back pain, unspecified back location, unspecified back pain laterality, unspecified chronicity HM DIABETES EYE EXAM Routine 05/04/2024 12:18 PM EDT LIPID PANEL, STANDARD Routine 11/12/2023 9:08 AM EST 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) Essential hypertension from Last 3 Months or Most Recently Relevant to Health Maintenance Results * POCT HGB A1C (11/22/2024 11:52 AM EDT) Hemoglobin A1C 5.9 4.0 - 6.0 % QC Media Lot # [id number] Lot# Expiration Date Blood 11/22/2024 11:5 2 AM EDT Ayaka Salgado MD POINT OF CARE TEST ENTER/ED IT ORDERABLES Final Result * POCT Glucose (11/22/2024 11:52 AM EDT) Glucose Blood, POC 192 60 - 200 mg/dL [employer] Media Lot # [id number] Comment:RANDOM Lot# Expiration Date , Blood Capillary blood specimen / Unknown 11/22/2024 11:52 AM EDT Ayaka Salgado MD POINT OF CARE TEST ENTER/ED IT ORDERABLES Final Result * POCT VESNA-14 Urine Drug Screen (08/31/2024 9:04 AM EST) Oxycodone Screen, Urine Positive Urine Urine specimen obtained by clean catch procedure / Unknown 08/31/2024 9:04 AM EST Narrative Alana Hook RN - 08/31/2024 9:04 AM EST Lot# [id number] Exp: 08-21-25 Ayaka Salgado MD POINT OF CARE TEST ENTER/ED IT ORDERABLES Final Result * Diabetes Eye Exam (05/04/2024 12:18 PM EDT) Historical Provider HEALTH MAINTENANCE Final Result * (ABNORMAL) Lipid Panel, Standard (11/12/2023 9:08 AM EST) Triglycerides 55 <150 mg/dL [facility] Comment:Desirable Triglyceri de: less than 150 mg/dLBorderline High Triglyceride 150-199 mg/dLHigh Triglyceride: 200-499 mg/dLVery High Triglyceride: greater than or equal to 5OO mg/dL Cholesterol 101 <200 mg/dL [facility] Comment:Desirable Cholestero l: less than 200 mg/dLBorderline High Cholesterol: 200-239 mg/dLHigh Cholesterol: greater than 239 mg/dL LDL Cholesterol Calculated 57 <100 mg/dL [facility] Comment:Desirable LDL: less than 100 mg/dLNear Optimal/Above Optimal LDL: 110- 129 mg/dLBorderline High LDL: 130-159 mg/dLHigh LDL: 160-189 mg/dLVery High LDL: greater than or equal to 190 mg/dL HDL Cholesterol 33(L) >40 mg/dL [facility] Comment:Desirable HDL: great er than 40 mg/dL Note: This HDL assay may give artificially low results in patients with liver disease. Blood Venous blood specimen / Unknown 11/12/2023 9:08 AM EST 11/12/2023 2:41 PM EST us Ayaka Salgado MD LAB BLOOD ORDERABLES Final Result [facility] [address] [place] [address] [phone] from Last 3 Months or Most Recently Relevant to Health Maintenance Insurance [facility] MEDICARE ADVANTAGE HMO Care Teams Electrolysist Relationship Specialty Start Date End Date Ayaka Salgado MD [address] [facility] [place] [address] PCP - General Internal Medicine 09/15/18
--- OUTSIDE RECORDS SUMMARY | 2024-11-23 06:40 | XMS_ITS | Referral Summary ---
Author Organization [facility] Address [address] [place] [address] Care Team Providers Care Papier Mache Molder Name Role Phone Ayaka Salgado Primary Care Provider Encounters Date Type Department Care Team Description 09/17/2024 Telephone [facility] Transplant Department [address] [place], [place] [phone] Shima Springer RN 09/13/2024 Telephone [facility] Transplant Department [address] [place], [place] [phone] Shima Springer, RN 08/27/2024 Telephone [facility] Transplant Department [address] [place], [place] [phone] Shima Springer, RN from Last 3 Months [...] 07/29/2024 10:00 AM EST Plan of Treatment Upcoming Encounters Date Type Department Care Team (Late st Contact Info) Description 08/02/2025 8:20 AM EST Follow-Up [facility] Renal Transplant [address] [place] [address] Joey Duarte MD [address] [place] [address] 08/02/2025 9:00 AM EST Social Work [facility] Renal Transplant [address] [place] [address] Susan Babb LICSW [address] [place] [address] Procedures * Due to [place] state law, this organization might not be [...] to Health Maintenance Results * Due to [place] state law, this organization might not be [...] - 0.20 10*3/uL 07/29/2024 1:35 PM EST [facility] nRBC % 0.0 /100 WBCs 07/29/2024 1:35 PM EST [facility] nRBC # <0.01 <0.01 10*3/uL 07/29/2024 1:[address] [facility] [employer] [facility] Blood Structure of peripheral vein / Unknown Venipuncture / Unknown 07/29/2024 12:57 PM EST 07/29/2024 1:29 PM EST Joey Duarte MD LAB BLOOD ORDERABLES María l Result [facility] [address] [place] [address], [place] * Hepatitis C Antibody w/Reflex to PCR (07/29/2024 12:57 PM EST) Hepatitis C Antibody NON-REACT [place] NON-REACT [place] 07/30/2024 3:03 AM EST [facility] Comment: HCV antibody was non-reactive. There is no laboratory evidence of HCV infection. In most cases, no further action is required. However, if recent HCV exposure is suspected, a test for HCV RNA (test code 41033) is suggested. For additional information please refer to http://education.[employer]/faq/AQX67e7 (This link is being provided for informational/ educational purposes only.) Blood Structure of peripheral vein / Unknown Venipuncture / Unknown 07/29/2024 12:57 PM EST 07/29/2024 1:32 PM EST Narrative [facility] 07/30/2024 3:03 AM EST [facility] Received Date: Joey Duarte MD LAB BLOOD ORDERABLES María l Result [facility] [address] [place] [address] 3rd Floor, [place] [address], [place] [phone] [facility] [address] [place] [address] 3rd Floor, [place] [address], * Phosphorus (07/29/2024 12:57 PM EST) Phosphorus 4.5 2.5 - 4.5 mg/dL 07/29/2024 2:00 PM EST [facility] Blood Structure of peripheral vein / Unknown Venipuncture / Unknown 07/29/2024 12:57 PM EST 07/29/2024 1:29 PM EST us Joey Duarte MD LAB BLOOD ORDERABLES María howard Result [facility] [address] [place] [address], * (ABNORMAL) Hemoglobin A1c (07/29/2024 12:57 PM EST) Hemoglobin A1C 6.7(H) <5.7 % of total Hgb 07/30/2024 1:59 AM EST [facility] Comment: For someone without known diabetes, a [...] (MG/DL) 146 mg/dL 07/30/2024 1:59 AM EST [facility] eAG (MMOL/L) 8.1 mmol/L 07/30/2024 1:59 AM EST [facility] Blood Structure of peripheral vein / Unknown Venipuncture / Unknown 07/29/2024 12:57 PM EST 07/29/2024 1:32 PM EST Narrative [facility] - 07/30/2024 1:59 AM EST [facility] Received Date: us Joey Duarte MD LAB BLOOD ORDERABLES María lee Result [facility] [address] Floor, [place] [address], [place] [phone] [facility] [address] Floor, [address] [facility] [place] [address], [place] [phone] from Last 3 Months or Most Recently Relevant [place] [id number] [facility] MCR REPLACE AAR [facility] [address] [facility] REPLACE [facility] Advance Directives Documents on File Type Date Recorded Patient Teacher Of The Emotionally Disturbed [facility] Care Proxy 08/05/2024 4:14 PM 11- Care Teams Papier Mache Molder Relationship Specialty Start Date End Date Ayaka Salgado [address] [place], [place] [address] [address] PCP - General Internal Medicine 07/29/24
--- OUTSIDE RECORDS SUMMARY | 2024-11-23 06:40 | XMS_ITS | Encounter Summary ---
Author Organization [facility] [address] [facility] 200 [place] [address] Phone Care Team Providers Care Steam Meter Reader Name Role Phone Jayme Salgado MD Primary Care Provider [phone] Reason for Visit * Reason Comments Med Refill Encounter Details Date Type Department Care Team (Late st Contact Info) Description 04/28/2023 Refill [facility] [address] [place] [place] [id number] Mmutaz Childress MD [address] [facility] [address] [place] [address] Type 2 diabetes mellitus with [...] (HCC) documented in this encounter Care Teams Steam Meter Reader Relationship Specialty Start Date End Date Jayme Salgado MD [address] [place] [address] PCP - General 09/25/20 documented as of this encounter
--- OUTSIDE RECORDS SUMMARY | 2024-11-23 06:40 | XMS_ITS ---
Author Organization [facility] Address [address] [place] [address] Care Team Providers Care Inspector Advanced Composite Name Role Phone Ayaka Salgado Primary Care Provider [phone] Transplant Episode Kidney Candidate [facility] ([place], [place]) - [facility], [facility] Evaluation began on 07/29/2024 Marked as Active on 07/29/2024 Kidney CoordinatorShima Springer RN Email: N/A Scores Score Value Updated Exceptions/Reas ons CPRA Not available EPTS (Calc) 43 11/23/2024 [place] Organ Diagnosis Organ Primary Contributory Kidney Diabetes Mellitus - Type II Care Team Name Role Phone Fax Email Shima Springer RN Kidney Coordinator [phone] N/A Ross Baldwin Referring Physician [phone] N/A Events Pre-Transplant Referred: 07/19/2024 Evaluation began: 07/29/2024
--- OUTSIDE RECORDS SUMMARY | 2024-11-23 06:40 | XMS_ITS | Clinical Summary ---
Author Organization [facility] Address [address] [place] [address] Care Team Providers Care Patternmaker Pressure Cast Name Role Phone DamianAyaka Primary Care Provider [phone] Allergies Active Allergy Reactions Criticality Noted Date [...] Type Department Care Team Description 09/17/2024 Telephone [facility] Transplant Department [address] [place] [address] Shima Springer RN 09/13/2024 Telephone [facility] Transplant Department [address] [place] [address] Shima Springer RN 08/27/2024 Telephone [facility] Transplant Department [address] [place] [address] Shima Springer, RN from Last 3 Months [...] Info) Description 08/02/2025 8:20 AM EST Follow-Up [facility] Renal Transplant [address] [place] [address] Joey Duarte MD [address] [place] [address] 08/02/2025 9:00 AM EST Social Work [facility] Renal Transplant [address] [place] [address] Susan Babb LICSW [address] [place] [address] Health Maintenance Due Date Last Done Comments [...] complete this topic Procedures * Due to [place] state law, this organization might not be [...] to Health Maintenance Results * Due to [place] state law, this organization might not be [...] MD LAB BLOOD ORDERABLES María l Result [facility] [address] [place] [address], * Hepatitis C Antibody w/Reflex to PCR (07/29/2024 12:57 PM EST) Hepatitis C Antibody NON-REACT [place] NON-REACT [place]ORD 07/30/2024 3:03 AM EST [facility] Comment: HCV antibody was non-reactive. There is no laboratory evidence of HCV infection. In most cases, no further action is required. However, if recent HCV exposure is suspected, a test for HCV RNA (test code 17125) is suggested. For additional information please refer to http://education.[employer]/faq/LEI59g5 (This link is being provided for informational/ educational purposes only.) Blood Structure of peripheral vein / Unknown Venipuncture / Unknown 07/29/2024 12:57 PM EST 07/29/2024 1:32 PM EST Narrative [facility] - 07/30/2024 3:03 AM EST [facility] Received Date: Joey Duarte MD LAB BLOOD ORDERABLES María l Result [facility] [address] [facility] 3rd Floor, [place] [address], [place] [phone] [employer] [facility] [address] [facility] 3rd Floor, [place] [address], [place] [phone] * Phosphorus (07/29/2024 12:57 PM EST) Phosphorus 4.5 2.5 - 4.5 mg/dL 07/29/2024 2:00 PM EST [facility] CL[facility]ICAL [facility]OLOG[facility] LABORAT[facility] Blood Structure of peripheral vein / Unknown Venipuncture / Unknown 07/29/2024 12:57 PM EST 07/29/2024 1:29 PM EST Joey Duarte MD LAB BLOOD ORDERABLES María l Result [facility] [address] [place] [address], [place] * (ABNORMAL) Hemoglobin A1c (07/29/2024 12:57 PM EST) Hemoglobin A1C 6.7(H) <5.7 % of total Hgb 07/30/2024 1:59 AM EST [facility] Comment: For someone without known diabetes, a [...] (MG/DL) 146 mg/dL 07/30/2024 1:59 AM EST [facility] eAG (MMOL/L) 8.1 mmol/L 07/30/2024 1:59 AM EST [facility] Blood Structure of peripheral vein / Unknown Venipuncture / Unknown 07/29/2024 12:57 PM EST 07/29/2024 1:32 PM EST Narrative [facility] - 07/30/2024 1:59 AM EST [facility] Received Date: Joey Duarte MD LAB BLOOD ORDERABLES María l Result [facility] [address] [facility] 3rd Floor, [place] [address], [facility] [address], [place] [address], [place] [phone] from Last 3 Months or Most Recently Relevant to Health Maintenance Insurance [facility] MCR REPLACE AARP [facility] MCR REPLACE AARP [place] Advance Directives Documents on File Type Date Recorded Patient Vmware Architect Expl [facility] Health Care Proxy 08/05/2024 4:14 PM - Care Teams Patternmaker Pressure Cast Relationship Specialty Start Date End Date Ayaka Salgado [address] [place] [address] PCP - General Internal Medicine 07/29/24
--- OUTSIDE RECORDS SUMMARY | 2024-11-23 06:40 | XMS_ITS | Encounter Summary ---
Author Organization [employer] Address [address] [place] [address] 7 [place] [address] Care Team Providers Care Rejected Items Clerk Name Role Phone Ayaka Salgado MD Primary Care Provider [phone] Reason for Visit * Reason Comments Med Refill Encounter Details Date Type Department Care Team ([facility] Contact Info) Description 02/24/2023 Refill [facility] CHC MED & PEDS [address] [place] [address] Ayaka Salgado MD [address] [place] [address] Social History Tobacco Use Types Packs/Day Years [...] Upcoming Encounters Date Type Department Care Team ([facility] st Contact Info) Description 11/24/2024 9:00 AM EDT Clinical Support [facility] MED & PEDS [address] [place] [address] Alana Hook, RACHELLE [address] [place] [address] 02/22/2025 1:45 PM EDT Office Visit [facility] MED & PEDS [address] [place] [address] Ayaka Salgado MD [address] [place] [address] documented as of this encounter Visit Diagnoses Not on filedocumented in this encounter Additional Health Concerns Assessment Noted Time PHQ-9 Depression Total Score: 7 08/29/20 22 10:26 AM EST documented as of this encounter Care Teams Rejected Items Clerk Relationship Specialty Start Date End Date Ayaka Salgado MD [address] [place] [address] PCP - General Internal Medicine 09/15/18 documented as of this encounter
--- OUTSIDE RECORDS SUMMARY | 2024-11-23 06:40 | XMS_ITS | Encounter Summary ---
Author Organization [employer] Address [address] [facility] 7 [place] [address] Care Team Providers Care Seasonal Retail Merchandiser Name Role Phone Ayaka Salgado MD Primary Care Provider [phone] Reason for Visit * Reason Onset Date Comments Med Refill 09/06/2024 Encounter Details Date Type Department Care Team ([facility] st Contact Info) Description 09/06/2024 Telephone [facility] MEDICINE [address] [place] [address] Ayaka Salgado MD 505 [facility] [place] [address] Med Refill Social History Tobacco Use Types [...] 8:56 AM EST Medication was sent to [facility] #[id number] on 08/09/24 with 3 refills. * Telephone Encounter - Cleopatra Ortiz - 09/06/2024 8:53 AM EST TC from pt requesting medication refill. Medications needing refill : labetalol (Normodyne) 200 MG tablet To be sent to: [id number] - [place] - [address] [facility] [address] documented in this encounter Plan of Treatment Upcoming Encounters Date Type Department Care Team ([facility] st Contact Info) Description 11/24/2024 9:00 AM EDT Clinical Support [facility] MED & PEDS [address] [facility] [place] [address] Alana Hook, RACHELLE 505 [facility] [place] [address] 02/22/2025 1:45 PM EDT Office Visit [facility] MED & PEDS [address] [place] [address] Ayaka Salgado MD [address] [place] [address] documented as of this encounter Visit Diagnoses Not on filedocumented in this encounter Additional Health Concerns Assessment Noted Time PHQ-9 Depression Total Score: 7 08/29/20 22 10:26 AM EST documented as of this encounter Care Teams Seasonal Retail Merchandiser Relationship Specialty Start Date End Date Ayaka Salgado MD [address] [place] [address] PCP - General Internal Medicine 09/15/18 documented as of this encounter
--- OUTSIDE RECORDS SUMMARY | 2024-11-23 06:41 | XMS_ITS | Encounter Summary ---
Author Organization [employer] Address [address] [place] [address] 7t [place] [address] Care Team Providers Care Assistant Professor Of Life Sciences Name Role Phone Ayaka Salgado MD Primary Care Provider [phone] Encounter Details Date Type Department Care Team (Late st Contact Info) Description 01/23/2023 Abstract [facility] [address] [place] [address] Ayaka Salgado MD [address] [place], [place] [address] Social History Tobacco Use Types Packs/Day Years [...] Support [facility] MED & PEDS [address] [place] [address] Alana Hook RN [address] [place] [address] 02/22/2025 1:45 PM EDT Office Visit [facility] MED & PEDS [address] [place] [address] Ayaka Salgado MD [address] [place] [address] documented as of this encounter Visit Diagnoses Not on filedocumented in this encounter Additional Health Concerns Assessment Noted Time PHQ-9 Depression Total Score: 7 08/29/20 22 10:26 AM EST documented as of this encounter Care Teams Assistant Professor Of Life Sciences Relationship Specialty Start Date End Date Ayaka Salgado MD [address] [place] [address] PCP - General Internal Medicine 09/15/18 documented as of this encounter
--- OUTSIDE RECORDS SUMMARY | 2024-11-23 06:41 | XMS_ITS | Encounter Summary ---
Author Organization [email or web address] Address [address] [facility] 7 [place] [address] Care Team Providers Care Rate Clerk Passenger Name Role Phone Ayaka Salgado MD Primary Care Provider [phone] Reason for Visit * Reason Onset Date Comments Med Refill 05/11/2024 Encounter Details Date Type Department Care Team ([facility] st Contact Info) Description 05/11/2024 Telephone [facility] MEDICINE [address] [place] [address] Ayaka Salgado MD 505 [facility] [place] [address] Med Refill Social History Tobacco Use Types [...] 5-325 MG tablet To be sent to: [facility] documented in this encounter Plan of Treatment Upcoming Encounters Date Type Department Care Team ([facility] st Contact Info) Description 11/24/2024 9:00 AM EDT Clinical Support [facility] MED & PEDS [address] [place] [address] Alana Hook RN 505 [place] [address] 02/22/2025 1:45 PM EDT Office Visit [facility] MED & PEDS [address] [place] [address] Ayaka Salgado MD [address] [place] [address] documented as of this encounter Visit Diagnoses Not on filedocumented in this encounter Additional Health Concerns Assessment Noted Time PHQ-9 Depression Total Score: 7 08/29/20 22 10:26 AM EST documented as of this encounter Care Teams Rate Clerk Passenger Relationship Specialty Start Date End Date Ayaka Salgado MD [address] [place] [address] PCP - General Internal Medicine 09/15/18 documented as of this encounter
--- OUTSIDE RECORDS SUMMARY | 2024-11-23 06:41 | XMS_ITS | Encounter Summary ---
Author Organization [employer] Address [address] [facility] 7 [place] [address] Care Team Providers Care Broadcast Supervisor Name Role Phone Ayaka Salgado MD Primary Care Provider [phone] Reason for Visit * Reason Onset Date Comments Med Refill 08/09/2024 Encounter Details Date Type Department Care Team ([facility] st Contact Info) Description 08/09/[address] [facility] MEDICINE [address] [place] [address] Ayaka Salgado MD 505 [facility] [place] [address] Med Refill Social History Tobacco Use Types [...] 5-325 MG tablet To be sent to: [facility] #[id number] documented in this encounter Plan of Treatment Upcoming Encounters Date Type Department Care Team ([facility] st Contact Info) Description 11/24/2024 9:00 AM EDT Clinical Support [facility] MED & PEDS [address] [place] [address] Alana Hook RN 505 [place] [address] 02/22/2025 1:45 PM EDT Office Visit [facility] MED & PEDS [address] [place] [address] Ayaka Salgado MD [address] [place] [address] documented as of this encounter Visit Diagnoses Not on filedocumented in this encounter Additional Health Concerns Assessment Noted Time PHQ-9 Depression Total Score: 7 08/29/20 22 10:26 AM EST documented as of this encounter Care Teams Broadcast Supervisor Relationship Specialty Start Date End Date Ayaka Salgado MD [address] [place] [address] PCP - General Internal Medicine 09/15/18 documented as of this encounter
--- OUTSIDE RECORDS SUMMARY | 2024-11-23 06:41 | XMS_ITS | Encounter Summary ---
Author Organization [employer] Address [address] [facility] 7 [place] [address] Care Team Providers Care Africana Studies Professor Name Role Phone Ayaka Salgado MD Primary Care Provider [phone] Reason for Visit * Reason Onset Date Comments Med Refill 07/28/2023 Encounter Details Date Type Department Care Team ([facility] Contact Info) Description 07/28/2023 Telephone [facility] CHC MED & PEDS [address] [place] [address] Ayaka Salgado MD [address] [place] [address] Med Refill Social History Tobacco Use Types [...] (Percocet) 5-325 MG tablet Please sent to [facility] #[id number] - [place] - [address] [facility] documented in this encounter Plan of Treatment Upcoming Encounters Date Type Department Care Team ([facility] st Contact Info) Description 11/24/2024 9:00 AM EDT Clinical Support [facility] MED & PEDS [address] [place] [address] Alana Hook RN [address] [place] [address] 02/22/2025 1:45 PM EDT Office Visit [facility] MED & PEDS [address] [place] [address] Ayaka Salgado MD [address] [place] [address] documented as of this encounter Visit Diagnoses Not on filedocumented in this encounter Additional Health Concerns Assessment Noted Time PHQ-9 Depression Total Score: 7 08/29/20 22 10:26 AM EST documented as of this encounter Care Teams Africana Studies Professor Relationship Specialty Start Date End Date Ayaka Salgado MD [address] [place] [address] PCP - General Internal Medicine 09/15/18 documented as of this encounter
--- OUTSIDE RECORDS SUMMARY | 2024-11-23 06:41 | XMS_ITS | Encounter Summary ---
Author Organization [employer] Address [address] [facility] 7 [place] [address] Care Team Providers Care Manager Psychiatry Name Role Phone Ayaka Salgado MD Primary Care Provider [phone] Reason for Visit * Reason Onset Date Comments Med Refill 12/01/2023 Encounter Details Date Type Department Care Team ([facility] st Contact Info) Description 12/01/2023 Telephone [facility] MEDICINE [address] [place] [address] Ayaka Salgado MD 505 [facility] [place] [address] Med Refill Social History Tobacco Use Types [...] 10 MG tablet To be sent to: [facility] #[id number] - [place] - [address] [facility] documented in this encounter Plan of Treatment Upcoming Encounters Date Type Department Care Team ([facility] st Contact Info) Description 11/24/2024 9:00 AM EDT Clinical Support [facility] MED & PEDS [address] [place] [address] Alana Hook RN 505 [place] [address] 02/22/2025 1:45 PM EDT Office Visit [facility] MED & PEDS [address] [place] [address] Ayaka Salgado MD 505 [place] [address] documented as of this encounter Visit Diagnoses Not on filedocumented in this encounter Additional Health Concerns Assessment Noted Time PHQ-9 Depression Total Score: 7 08/29/20 22 10:26 AM EST documented as of this encounter Care Teams Manager Psychiatry Relationship Specialty Start Date End Date Ayaka Salgado MD [address] [place] [address] PCP - General Internal Medicine 09/15/18 documented as of this encounter
--- OUTSIDE RECORDS SUMMARY | 2024-11-23 06:41 | XMS_ITS | Encounter Summary ---
Author Organization [employer] [facility] Address [address] [facility] 7 [place] [address] Care Team Providers Care Aluminum Siding Applicator Name Role Phone Ayaka Salgado MD Primary Care Provider [phone] Reason for Visit * Reason Onset Date Comments r/s appt 08/23/2022 Encounter Details Date Type Department Care Team (Late st Contact Info) Description 08/23/2022 Telephone [facility] MEDICINE [address] [place] [address] Ayaka Salgado MD 505 [facility] [place] [address] r/s appt Social History Tobacco Use Types [...] appt has been canceled. Please contact at [phone] documented in this encounter Plan of Treatment Upcoming Encounters Date Type Department Care Team (Late Contact Info) Description 11/24/2024 9:00 AM EDT Clinical Support [facility] MED & PEDS [address] [place] [address] Alana Hook, RN 505 [place] [address] 02/22/2025 1:45 PM EDT Office Visit [facility] MED & PEDS 505 [place] [address] Ayaka Salgado MD [address] [place] [address] documented as of this encounter Visit Diagnoses Not on filedocumented in this encounter Care Teams Aluminum Siding Applicator Relationship Specialty Start Date End Date Ayaka Salgado MD [address] [place] [address] PCP - General Internal Medicine 09/15/18 documented as of this encounter
--- OUTSIDE RECORDS SUMMARY | 2024-11-23 06:41 | XMS_ITS | Encounter Summary ---
Author Organization [employer] Address [address] [facility] 7 [place] [address] Care Team Providers Care Flower Buncher Or Picker Name Role Phone Ayaka Salgado MD Primary Care Provider [phone] Reason for Visit * Reason Onset Date Comments Med Refill 10/26/2024 Encounter Details Date Type Department Care Team (Late st Contact Info) Description 10/26/2024 Refill [facility] MEDICINE [address] [place] [address] Ayaka Salgado MD 505 [facility] [place] [address] Primary osteoarthritis involving multiple joints Social History [...] 10 MG tablet To be sent to[facility][id number] - [place] - [facility] [address] [facility] [address] documented in this encounter Plan of Treatment Upcoming Encounters Date Type Department Care Team ([facility] st Contact Info) Description 11/24/2024 9:00 AM EDT Clinical Support [facility] MED & PEDS [address] [place] [address] Alana Hook RN 505 [place] [address] 02/22/2025 1:45 PM EDT Office Visit [facility] MED & PEDS [address] [place] [address] Ayaka Salgado MD 505 [place] [address] documented as of this encounter Visit Diagnoses Diagnosis Primary osteoarthritis involving multiple joints documented in this encounter Additional Health Concerns Assessment Noted Time PHQ-9 Depression Total Score: 7 08/29/20 22 10:26 AM EST documented as of this encounter Care Teams Flower Buncher Or Picker Relationship Specialty Start Date End Date Ayaka Salgado MD [address] [place] [address] PCP - General Internal Medicine 09/15/18 documented as of this encounter
--- OUTSIDE RECORDS SUMMARY | 2024-11-23 06:41 | XMS_ITS | Encounter Summary ---
Author Organization [employer] Address [address] [place] [address] 7 [place] [address] Care Team Providers Care Quality Assurance Group Leader Name Role Phone Ayaka Salgado MD Primary Care Provider [phone] Reason for Visit * Reason Comments Med Refill Encounter Details Date Type Department Care Team ([facility] st Contact Info) Description 01/06/2023 Refill [facility] CHC MED & PEDS [address] [place] [address] Ayaka Salgado MD [address] [place] [address] Primary osteoarthritis involving multiple joints Social History [...] Upcoming Encounters Date Type Department Care Team ([facility] st Contact Info) Description 11/24/2024 9:00 AM EDT Clinical Support [facility] MED & PEDS [address] [place] [address] Alana Hook RN 505 [place] [address] 02/22/2025 1:45 PM EDT Office Visit [facility] MED & PEDS [address] [place] [address] Ayaka Salgado MD [address] [place] [address] documented as of this encounter Visit Diagnoses Diagnosis Primary osteoarthritis involving multiple joints documented in this encounter Additional Health Concerns Assessment Noted Time PHQ-9 Depression Total Score: 7 08/29/20 22 10:26 AM EST documented as of this encounter Care Teams Quality Assurance Group Leader Relationship Specialty Start Date End Date Ayaka Salgado MD [address] [place] [address] PCP - General Internal Medicine 09/15/18 documented as of this encounter
--- OUTSIDE RECORDS SUMMARY | 2024-11-23 06:41 | XMS_ITS | Encounter Summary ---
Author Organization [employer] Address [address] [place] [address] 7t [place] [address] Care Team Providers Care Retail Pharmacy Technician Name Role Phone Ayaka Salgado MD Primary Care Provider [phone] Encounter Details Date Type Department Care Team (Late st Contact Info) Description 02/19/2023 Abstract [facility] [address] [place] [address] Ayaka Salgado MD [address] [place], [place] [id number] Social History Tobacco Use Types Packs/Day Years [...] Description 11/24/2024 9:00 AM EDT Clinical Support [facility] MED & PEDS [address] [place] [address] Alana Hook RN 505 [place] [address] 02/22/2025 1:45 PM EDT Office Visit [facility] MED & PEDS [address] [place] [address] Ayaka Salgado MD 505 [place] [address] documented as of this encounter Visit Diagnoses Not on filedocumented in this encounter Additional Health Concerns Assessment Noted Time PHQ-9 Depression Total Score: 7 08/29/20 22 10:26 AM EST documented as of this encounter Care Teams Retail Pharmacy Technician Relationship Specialty Start Date End Date Ayaka Salgado MD [address] [place] [address] PCP - General Internal Medicine 09/15/18 documented as of this encounter
--- OUTSIDE RECORDS SUMMARY | 2024-11-23 06:41 | XMS_ITS | Encounter Summary ---
Author Organization [employer] Address [address] [facility] 7 [place] [address] Care Team Providers Care Nursing Service Administrator Name Role Phone Ayaka Salgado MD Primary Care Provider [phone] Reason for Visit * Reason Comments Med Refill Encounter Details Date Type Department Care Team (Late st Contact Info) Description 10/07/2022 Refill [facility] [address] [place] [address] Ayaka Salgado MD [address] [facility] [address] [place] [address] Primary osteoarthritis involving multiple joints Social History [...] Upcoming Encounters Date Type Department Care Team ([facility] st Contact Info) Description 11/24/2024 9:00 AM EDT Clinical Support [facility] MED & PEDS 505 [place] [address] Alana Hook RN 505 [place] [address] 02/22/2025 1:45 PM EDT Office Visit [facility] MED & PEDS 505 [place] [address] Ayaka Salgado MD 505 [place] [address] documented as of this encounter Visit Diagnoses Diagnosis Primary osteoarthritis involving multiple joints documented in this encounter Additional Health Concerns Assessment Noted Time PHQ-9 Depression Total Score: 7 08/29/20 22 10:26 AM EST documented as of this encounter Care Teams Nursing Service Administrator Relationship Specialty Start Date End Date Ayaka Salgado MD 505 [place] [address] PCP - General Internal Medicine 09/15/18 documented as of this encounter
--- OUTSIDE RECORDS SUMMARY | 2024-11-23 06:41 | XMS_ITS | Encounter Summary ---
Author Organization [email or web address] Address [address] [place] [address] 7 [place] [address] Care Team Providers Care Ribbon Cutter Name Role Phone Ayaka Salgado MD Primary Care Provider [phone] Reason for Visit * Reason Comments Med Refill Encounter Details Date Type Department Care Team ([facility] Contact Info) Description 07/28/2023 Refill [facility] MED & PEDS [address] [place] [address] Ayaka Salgado MD 505 [place] [address] Social History Tobacco Use Types Packs/Day Years [...] [facility] 505 [place] [address] Alana Hook, RACHELLE 505 [place] [address] 02/22/2025 1:45 PM EDT Office Visit [facility] 505 [place] [address] Ayaka Salgado MD 505 [place] [address] documented as of this encounter Visit Diagnoses Not on filedocumented in this encounter Additional Health Concerns Assessment Noted Time PHQ-9 Depression Total Score: 7 08/29/20 22 10:26 AM EST documented as of this encounter Care Teams Ribbon Cutter Relationship Specialty Start Date End Date Ayaka Salgado MD 505 [place] [address] PCP - General Internal Medicine 09/15/18 documented as of this encounter
--- OUTSIDE RECORDS SUMMARY | 2024-11-23 06:41 | XMS_ITS | Encounter Summary ---
Author Organization [employer] Address [address] [facility] 7t [place] [address] Care Team Providers Care Wastewater Operator Name Role Phone Ayaka Salgado MD Primary Care Provider [phone] Encounter Details Date Type Department Care Team ([facility] st Contact Info) Description 04/29/2024 Telephone [facility] MEDICINE [address] [place] [address] Ayaka Salgado MD [address] [place] [address] Social History Tobacco Use Types Packs/Day Years [...] 10 MG tablet To be sent to: [id number] - [place], [place] - [address] [facility] [address] documented in this encounter Plan of Treatment Upcoming Encounters Date Type Department Care Team ([facility] st Contact Info) Description 11/24/2024 9:00 AM EDT Clinical Support [facility] MED & PEDS 505 [place] [address] Alana Hook RN 505 [place] [address] 02/22/2025 1:45 PM EDT Office Visit [facility] MED & PEDS 505 [place] [address] Ayaka Salgado MD 505 [place] [address] documented as of this encounter Visit Diagnoses Not on filedocumented in this encounter Additional Health Concerns Assessment Noted Time PHQ-9 Depression Total Score: 7 08/29/20 22 10:26 AM EST documented as of this encounter Care Teams Wastewater Operator Relationship Specialty Start Date End Date Ayaka Salgado MD [address] [place] [address] PCP - General Internal Medicine 09/15/18 documented as of this encounter
--- OUTSIDE RECORDS SUMMARY | 2024-11-23 06:41 | XMS_ITS | Encounter Summary ---
Author Organization [facility] Address [address] [place] [address] Care Team Providers Care Scouring Machine Tender Name Role Phone Ayaka Salgado MD Primary Care Provider [phone] Reason for Referral * Consultation (Routine) - Authorized Specialty Diagnoses / Procedures Referred By Contac t Referred To Contact Pulmonary Disease Diagnoses Chronic obstructive pulmonary disease, unspecified COPD type (CMS/HCC) Ayaka Salgado MD [address] [place] [address] Phone: tel: fax: Anurag Montejo [address] [place] [address] [place] [address] Phone: tel: fax: Referral ID Status Reason Start Date Expiration Date Visits Requested Visits Authorized [id number] Authorized Specialty Services Required 11/22/2024 11/22/2025 1 1 Reason for Visit * Reason Comments Follow-up Encounter Details Date Type Department Care Team ([facility] st Contact Info) Description 11/22/2024 11:00 AM EDT Office Visit [facility] MED & [facility]EDS [facility] [place], [place] [phone] Ayaka Salgado MD [address] [place] [address] Chronic obstructive pulmonary disease, unspecified COPD type (CMS/HCC) (Primary Dx); BOWMAN (dyspnea on exertion); 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 I have haven pantera 11/22/[address] you li [...] AM EDT documented as of this encounter Last Filed Vital Signs Vital Sign Reading [...] Mass Index 37.77 11/22/2024 10:55 AM EDT documented in this encounter Progress Notes * Ayaka Salgado MD - 11/22/2024 11:00 AM EDT Subjective Patient ID: Lewis Saldivar is a 68 y.o. male who presents for Follow-up. HPI 1) history of diabetes. Patient is compliant to his medication. No reported episode of hypoglycemiasince the last office visit. 2) history of hypertension. Patient is compliant to his medication. No reported untoward side effect to the current medication he is on. 3) history of insomnia. Patient is on Ambien which helps him to fall asleep. He is reporting havingdifficulty staying asleep. No medication tried for that. 4) history of dyspnea. On Anoro Ellipta which she is using as needed. Has not seen his enterprise resource planning consultant for several months to a year. 5) history of congestive heart failure and pulmonary hypertension. Follows up with cardiology. 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 75 mL 3 albuterol (2.5 MG/3ML) 0.083% nebulizer solution Take 3 mL (2.5 mg) by nebulization every 4 (four) hours if needed for wheezing. 75 mL 11 albuterol 108 (90 Base) MCG/ACT inhaler Inhale 2 puffs every 6 (six) hours if needed for wheezing. 18 g 11 Alcohol Swabs (Alcohol Prep) 70 % pads APPLY 1 PAD TO SKIN TWICE DAILY DIRECTED 200 each 11 amLODIPine (Norvasc) 5 MG tablet Take 1 tablet (5 mg) by mouth in the morning. Take 1 tablet by mouth daily 30 tablet 11 ammonium lactate (Lac-Hydrin Twelve) 12 % lotion Apply topically if needed for dry skin. 225 g 1 aspirin 81 MG EC tablet Take 1 tablet by mouth in the morning. Blood Glucose Monitoring Suppl ([employer]) w/Device kit USE TO TEST BLOOD SUGAR TWICE A DAY 1 kit 0 Blood Pressure kit Use daily budesonide-formoterol (Symbicort) 160-4.5 MCG/ACT inhaler Inhale 2 puffs in the morning and at bedtime. 1 each 0 bumetanide (Bumex) 1 MG tablet TAKE 1 TABLET(1 MG) BY MOUTH TWICE DAILY 180 tablet 3 cholecalciferol (Vitamin D-3) 25 MCG (1000 UT) tablet Take 1 tablet by mouth. Every day cinacalcet (Sensipar) 30 MG tablet take 1 tablet (30MG) by oral route every day with food cloNIDine (Catapres) 0.3 MG tablet TAKE 1 TABLET BY MOUTH THREE TIMES DAILY 270 tablet 0 dextran 70-hypromellose (artificial tears) 0.1-0.3 % ophthalmic solution 1 drop 4 times a day as needed Diclofenac Sodium 1 % gel Apply topically. 2 times every day to the affected area(s) docusate sodium (Colace) 100 MG capsule take 1 capsule to 2 capsules by oral route every day at bedtime as needed doxycycline (Vibra-Tabs) 100 MG tablet Take 1 tablet (100 mg) by mouth 2 times daily. Take with a full glass of water and do not lie down for at least 30 minutes after. 20 tablet 0 Elastic Bandages & Supports (Medical Compression Socks) misc To use daily before getting out ofbed gabapentin (Neurontin) 300 MG capsule Take 1 capsule (300 mg) by mouth 3 times daily. 90 capsule 11 glimepiride (Amaryl) 1 MG tablet TAKE 1 TABLET(1 MG) BY MOUTH EVERY DAY BEFORE BREAKFAST 90 tablet 3 glucose blood (FREESTYLE LITE) test strip USE TO TEST BLOOD SUGAR TWICE A DAY 100 each 3 glucose blood (OneTouch Verio) test strip USE TO TEST BLOOD SUGAR TWICE A DAY 100 each 5 guaiFENesin (Mucinex) 600 MG 12 hr tablet Take 2 tablets (1,200 mg) by mouth 2 times daily. 20 tablet 0 hydrALAZINE (Apresoline) 100 MG tablet Take 1 tablet (100 mg) by mouth 3 times daily. TAKE 1 TABLETBY MOUTH THREE TIMES DAILY WITH FOOD 270 tablet 3 hydrOXYzine pamoate (Vistaril) 50 MG capsule TAKE 1 CAPSULE(50 MG) BY MOUTH AT BEDTIME NEEDED FOR ITCHING 30 capsule 0 ivermectin (Stromectol) 3 MG tablet 5 tabs today . 5 tabs next friday 10 tablet 0 Januvia 25 MG tablet TAKE 1 TABLET(25 MG) BY MOUTH IN THE MORNING 30 tablet 11 labetalol (Normodyne) 200 MG tablet TAKE 2 TABLETS BY MOUTH EVERY 12 HOURS 120 tablet 3 lidocaine (Lidoderm) 5 % patch APPLY 1 PATCH TOPICALLY TO THE SKIN EVERY DAY. MAY WEAR UP TO 12 HOURS 30 patch 11 losartan (Cozaar) 100 MG tablet TAKE 1 TABLET BY MOUTH EVERY DAY 90 tablet 1 Misc. Devices (Pulse Oximeter) misc USE DIRECTED naloxone (Narcan) 4 mg/0.1 mL nasal spray Administer 0.1 mL into affected nostril(s). nicotine (Nicoderm CQ) 7 MG/24HR patch Place 1 patch on the skin 1 (one) time each day at the same time. 30 patch 0 OneTouch Delica Lancets 33G misc USE TO TEST BLOOD SUGAR TWICE A DAY 100 each 5 oxyCODONE-acetaminophen (Percocet) 5-325 MG tablet Take 1 tablet by mouth every 6 (six) hours if needed for severe pain. 42 tablet 0 polyethylene glycol, PEG, 3350 (MiraLax) 17 GM/SCOOP powder take (17G) by oral route every day mixed with 8 oz. water, juice, soda, coffee or tea simethicone (Mylicon,Gas-X) 125 MG capsule take 1 tablet by oral route 4 times every day simvastatin (Zocor) 20 MG tablet TAKE 1 TABLET(20 MG) BY MOUTH AT BEDTIME 90 tablet 3 tiotropium (Spiriva HandiHaler) [address] 1 capsule (18 mcg) into inhaler andinhale in the morning. 30 capsule 11 tiotropium (Spiriva Respimat) 1.25 MCG/ACT inhaler Inhale 2 puffs. Every day triamcinolone (Kenalog) 0.1 % cream Apply topically if needed in the morning and at bedtime (pain and swelling). 80 g 2 triamcinolone (Kenalog) 0.1 % cream Apply topically if needed in the morning and at bedtime (pain and swelling). 80 g 3 zolpidem (Ambien) 10 MG tablet Take 1 tablet (10 mg) by mouth if needed at bedtime for sleep. 30 tablet 0 zolpidem (Ambien) 10 MG tablet TAKE 1 TABLET BY MOUTH AT BEDTIME NEEDED FOR SLEEP 30 tablet 0 zolpidem (Ambien) 10 MG tablet TAKE 1 TABLET BY MOUTH AT BEDTIME NEEDED FOR SLEEP 30 tablet 0 [DISCONTINUED] Umeclidinium [place] (Incruse Ellipta) 62.5 MCG/ACT aerosol powder Inhale 62.5 mcg Once per day AND 62.5 mcg Once per day. 30 each 11 No current facility-administered medications on file prior to visit. Allergies Allergen Reactions Glyburide Other reaction(s): unspecified Metformin Other reaction(s): unspecified, unspecified Review of Systems Constitutional: Negative for appetite change, chills and diaphoresis. Respiratory: Positive for shortness of breath. Negative for cough and choking. Cardiovascular: Negative for leg swelling. Gastrointestinal: Negative for abdominal pain, anal bleeding and blood in stool. Musculoskeletal: Negative for back pain and gait problem. Objective BP 131/73 (BP Location: Left arm, Patient Position: Sitting, BP Cuff Size: Adult long) Pulse 60 Temp 98 ??F (36.7 ??C) (Oral) Resp 20 Ht 5' 6 (1.676 m) Wt 234 lb (106 kg) SpO2 98% BMI 37.77 kg/m?? Physical Exam Constitutional: General: He is not in acute distress. Appearance: Normal appearance. He is not ill-appearing, toxic-appearing or diaphoretic. Cardiovascular: Rate and Rhythm: Normal rate. Pulmonary: Breath sounds: Decreased air movement present. Decreased breath sounds present. Musculoskeletal: Right lower le+ Pitting Edema present. Left lower le+ Pitting Edema present. Neurological: Mental Status: He is alert. Assessment/Plan Diagnoses and all orders for this visit: Chronic obstructive pulmonary disease, unspecified COPD type ([facility]) - Umeclidinium [place] (Incruse Ellipta) 62.5 MCG/ACT aerosol powder ; Inhale 1 Act (62.5 mcg) Onceper day AND 1 Act (62.5 mcg) Once per day. - Referral to Pulmonology; Future Patient has noted shortness of breath and dyspnea with exertion for over a month. Advised to use his Incruse Ellipta daily as prescribed and to use his albuterol as needed only. He needs to be reevaluated by his enterprise resource planning consultant to consider optimization of his current medication. BOWMAN (dyspnea on exertion) 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[facility]) - POCT Glucose - POCT HGB A1C The provided glucometer was reviewed. No hypoglycemia. Patient is to continue with his current medication and to keep as active as tolerated. Primary insomnia - melatonin 5 MG tablet; 1 tab of 5 mg at bedtime Advised to continue with Ambien. Try to start melatonin 5 mg at bedtime and call the office if no improvement is noted after 10 days also. Other orders - guaiFENesin (Mucinex) 600 MG 12 hr tablet; Take 2 tablets (1,200 mg) by mouth 2 times daily. Do not crush, chew, or split. documented in this encounter Plan of Treatment Upcoming Encounters Date Type Department Care Team (Late st Contact Info) Description 11/24/2024 9:00 AM EDT Clinical Support [facility] [address] [place] [address] Alana Hook, RN 505 [place] [address] 02/22/2025 1:45 PM EDT Office Visit [facility] [address] [place] [address] Ayaka Salgado MD [address] [place] [address] Scheduled Referrals Name Type Priority Associated Diagnoses Orde r Schedule Referral to Pulmonology Outpatient Referral Routine Chronic obstructive pulmonary disease, unspecified COPD type (CMS/HCC) Expected: 11/22/2024 (Approximate), Expires: 11/22/2025 documented as of this encounter Procedures Procedure Name Priority Date/Time Associated Diagnosis Comments POCT GLYCATED HEMOGLOBIN, TOTAL Routine 11/22/2024 11:52 AM EDT 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) POCT GLUCOSE Routine 11/22/2024 11:52 AM EDT 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) documented in this encounter Results * POCT HGB A1C (11/22/2024 11:52 [...] Lot # [id number] Comment:RANDOM Lot# Expiration Date ,025 Blood Capillary blood specimen / Unknown 11/22/2024 11:52 AM EDT Ayaka Salgado MD POINT OF CARE TEST ENTER/ED IT ORDERABLES Final Result documented in this encounter Visit Diagnoses Diagnosis Chronic obstructive pulmonary disease, unspecified COPD type (CMS/HCC)- Primary BOWMAN (dyspnea on exertion) Other dyspnea and respiratory abnormality 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
--- OUTSIDE RECORDS SUMMARY | 2024-11-23 06:41 | XMS_ITS | Clinical Summary ---
Author Organization [facility] Address [address] [place] [address] [place] [address] Phone Care Team Providers Care Solar Hot Water Installer Name Role Phone Jayme Salgado MD Primary Care Provider [phone] Allergies Active Allergy Reactions Criticality Noted Date [...] patient's age to complete this topic Insurance [facility] MEDICARE [facility] MEDICARE Care Teams Solar Hot Water Installer Relationship Specialty Start Date End Date Jayme Salgado MD [address] [place], [place] [address]D[place] PCP - General 09/25/20
--- OUTSIDE RECORDS SUMMARY | 2024-11-23 06:41 | XMS_ITS | Encounter Summary ---
Author Organization [employer] Address [address] [facility] 7 [place] [address] Care Team Providers Care Electrical Journeyman Name Role Phone Ayaka Salgado MD Primary Care Provider [phone] Reason for Visit * Reason Onset Date Comments Med Refill 09/29/2024 Encounter Details Date Type Department Care Team (Late st Contact Info) Description 09/29/2024 Refill [facility] MEDICINE [address] [place] [address] Ayaka Salgado MD 505 [facility] [place] [id number] Arthropathy (Primary Dx) Social History Tobacco Use [...] 5-325 MG tablet To be sent to: [id number] [place], [place] - [facility] [address] [facility] documented in this encounter Plan of Treatment Upcoming Encounters Date Type Department Care Team ([facility] st Contact Info) Description 11/24/2024 9:00 AM EDT Clinical Support [facility] MED & PEDS 505 [place] [address] Alana Hook RN 505 [place] [address] 02/22/2025 1:45 PM EDT Office Visit [facility] MED & PEDS 505 [place] [address] Ayaka Salgado MD 505 [place] [address] documented as of this encounter Visit Diagnoses Diagnosis Arthropathy- Primary Unspecified arthropathy, site unspecified documented in this encounter Additional Health Concerns Assessment Noted Time PHQ-9 Depression Total Score: 7 08/29/20 22 10:26 AM EST documented as of this encounter Care Teams Electrical Journeyman Relationship Specialty Start Date End Date Ayaka Salgado MD 505 [place] [address] PCP - General Internal Medicine 09/15/18 documented as of this encounter
--- OUTSIDE RECORDS SUMMARY | 2024-11-23 06:41 | XMS_ITS ---
Author Organization [facility] Address [address] [place] [address] 7 [place] [address] Care Team Providers Care Blind Escort Name Role Phone Ayaka Salgado MD Primary Care Provider [phone] POLICE RECORDS CLERK Status:Enrolled (Active) Start date:12/20/2022 Enrollment date:12/20/2022 Case Team Name Relationship Phone Alana Hook RN Registered Nurse(Responsible S taff) Continued Care and Services Coordination
--- OUTSIDE RECORDS SUMMARY | 2024-11-23 06:41 | XMS_ITS | Encounter Summary ---
Author Organization [employer] Address [address] [place] [address] 7 [place] [address] Care Team Providers Care Vacuum Plastic Forming Machine Operator Name Role Phone Ayaka Salgado MD Primary Care Provider [phone] Reason for Visit * Reason Onset Date Comments Med Refill 08/05/2024 Encounter Details Date Type Department Care Team ([facility] st Contact Info) Description 08/05/2024 Refill [facility] CHC MED & PEDS [address] [place] [address] Ayaka Salgado MD 505 [place] [address] Back pain, unspecified back location, unspecified back [...] the past 12 months, has t he [employer], gas, oil or water [employer] threatened to shut off services in your [...] 5-325 MG tablet To be sent to: [id number] - [place], [place] - [address] [facility] [address] documented in this encounter Plan of Treatment Upcoming Encounters Date Type Department Care Team (Late st Contact Info) Description 11/24/2024 9:00 AM EDT Clinical Support [facility] MED [facility] PEDS [address] [place] [address] Alana Hook RN 505 [place] [address] 02/22/2025 1:45 PM EDT Office Visit [facility] MED [facility] PEDS 505 [place] [address] Ayaka Salgado MD 505 [place] [address] documented as of this encounter Visit Diagnoses Diagnosis Back pain, unspecified back location, unspecified back pain laterality, unspecified chronicity- Primary documented in this encounter Additional Health Concerns Assessment Noted Time PHQ-9 Depression Total Score: 7 08/29/20 22 10:26 AM EST documented as of this encounter Care Teams Vacuum Plastic Forming Machine Operator Relationship Specialty Start Date End Date Ayaka Salgado MD 505 [place] [address] PCP - General Internal Medicine 09/15/18 documented as of this encounter
--- OUTSIDE RECORDS SUMMARY | 2024-11-23 06:41 | XMS_ITS | Encounter Summary ---
Author Organization [employer] Address [address] [facility] [address] 7[address] [place] [address] Care Team Providers Care Mobile Practice Lead Name Role Phone Ayaka Salgado MD Primary Care Provider [phone] Encounter Details Date Type Department Care Team (Latest Contact Info) Description 11/22/2024 Travel Social History Tobacco Use Types Packs/Day Years [...] [facility] [address] [place] [address] Alana Hook, RACHELLE 505 [place] [address] 02/22/2025 1:45 PM EDT Office Visit [facility] MED & PEDS [address] [place] [address] Ayaka Salgado MD 505 [place] [address] documented as of this encounter Visit Diagnoses Not on filedocumented in this encounter Additional Health Concerns Assessment Noted Time PHQ-9 Depression Total Score: 12 025 11:13 AM EDT documented as of this encounter Care Teams Mobile Practice Lead Relationship Specialty Start Date End Date Ayaka Salgado MD [address] [place] [address] PCP - General Internal Medicine 09/15/18 documented as of this encounter
--- OUTSIDE RECORDS SUMMARY | 2024-11-23 06:41 | XMS_ITS | Encounter Summary ---
Author Organization [employer] Address [address] [facility] 7t [place] [address] Care Team Providers Care Election Clerk Name Role Phone Ayaka Salgado MD Primary Care Provider [phone] Encounter Details Date Type Department Care Team ([facility] st Contact Info) Description 05/26/2024 Orders Only [facility] CHC MED & PEDS [address] [place] [address] Ayaka Salgado MD 505 [place] [address] Simple chronic bronchitis (CMS/HCC) (Primary Dx) Social [...] [facility] [address] [place] [address] Alana Hook, RACHELLE 505 [place] [address] 02/22/2025 1:45 PM EDT Office Visit [facility] MED [facility] PEDS [address] [place] [address] Ayaka Salgado MD 505 [place] [address] documented as of this encounter Visit Diagnoses Diagnosis Simple chronic bronchitis (CMS/HCC)- Primary Simple chronic bronchitis documented in this encounter Additional Health Concerns Assessment Noted Time PHQ-9 Depression Total Score: 7 08/29/20 22 10:26 AM EST documented as of this encounter Care Teams Election Clerk Relationship Specialty Start Date End Date Ayaka Salgado MD 505 [place] [address] PCP - General Internal Medicine 09/15/18 documented as of this encounter
--- OUTSIDE RECORDS SUMMARY | 2024-11-23 06:41 | XMS_ITS | Encounter Summary ---
Author Organization [employer] Address [address] [facility] 7t [place] [address] Care Team Providers Care Card Boxer Name Role Phone Ayaka Salgado MD Primary Care Provider [phone] Encounter Details Date Type Department Care Team (Late st Contact Info) Description 10/11/2022 Orders Only [facility] MEDICINE [address] [place] [address] Ayaka Salgado MD [address] [facility] [place] [place] [address] Congestive heart failure, unspecified HF chronicity, unspecified [...] Upcoming Encounters Date Type Department Care Team ([facility] st Contact Info) Description 11/24/2024 9:00 AM EDT Clinical Support [facility] MED & PEDS 505 [place] [address] Alana Hook, RACHELLE 505 [place] [address] 02/22/2025 1:45 PM EDT Office Visit [facility] MED & PEDS 505 [place] [address] Ayaka Salgado MD 505 [place] [address] documented as of this encounter Visit Diagnoses Diagnosis Congestive heart failure, unspecified HF chronicity, unspecified heart failure type (CMS/HCC) Edema of foot Edema documented in this encounter Additional Health Concerns Assessment Noted Time PHQ-9 Depression Total Score: 7 08/29/20 22 10:26 AM EST documented as of this encounter Care Teams Card Boxer Relationship Specialty Start Date End Date Ayaka Salgado MD 505 [place] [address] PCP - General Internal Medicine 09/15/18 documented as of this encounter
--- OUTSIDE RECORDS SUMMARY | 2024-11-23 06:41 | XMS_ITS | Encounter Summary ---
Author Organization [employer] Address [address] [place] [address] 7 [place] [address] Care Team Providers Care Command Post Craftsman Name Role Phone Ayaka Salgado MD Primary Care Provider [phone] Reason for Visit * Reason Onset Date Comments Med Refill 12/12/2022 Encounter Details Date Type Department Care Team ([facility] st Contact Info) Description 12/12/2022 Telephone [facility] CHC MED & PEDS 505 [place] [address] Ayaka Salgado MD 505 [place] [address] Med Refill Social History Tobacco Use Types [...] (Norvasc) 5 MG tablet Please sent to [id number] - [place], [place] - [address] [facility] documented in this encounter Plan of Treatment Upcoming Encounters Date Type Department Care Team ([facility] st Contact Info) Description 11/24/2024 9:00 AM EDT Clinical Support [facility] MED & PEDS 505 [place] [address] Alana Hook, RN 505 [place] [address] 02/22/2025 1:45 PM EDT Office Visit [facility] MED & PEDS 505 [place] [address] Ayaka Salgado MD 505 [place] [address] documented as of this encounter Visit Diagnoses Not on filedocumented in this encounter Additional Health Concerns Assessment Noted Time PHQ-9 Depression Total Score: 7 08/29/20 22 10:26 AM EST documented as of this encounter Care Teams Command Post Craftsman Relationship Specialty Start Date End Date Ayaka Salgado MD 505 [place] [address] PCP - General Internal Medicine 09/15/18 documented as of this encounter
--- OUTSIDE RECORDS SUMMARY | 2024-11-23 06:41 | XMS_ITS | Encounter Summary ---
Author Organization [employer] Address [address] [place] [address] 7 [place] [address] Care Team Providers Care Industrial Spraypainter Name Role Phone Ayaka Salgado MD Primary Care Provider [phone] Reason for Visit * Reason Onset Date Comments Letter Accomodation 12/12/2022 Encounter Details Date Type Department Care Team ([facility] st Contact Info) Description 12/12/2022 Telephone [facility] CHC MED & PEDS [address] [place] [address] Ayaka Salgado MD 505 [place] [address] Letter Accomodation Social History Tobacco Use Types [...] hisPercocet. Advised message will be forwarded to INJECTION MOLDING OPERATOR nurse regarding his request. Pt verbalizes understanding. * Telephone Encounter - Abiel Mills - 12/12/2022 9:32 AM EDT Tc from pt requesting an Accomodation letter. Please contact pt at [phone] documented in this encounter Plan of Treatment Upcoming Encounters Date Type Department Care Team ([facility] st Contact Info) Description 11/24/2024 9:00 AM EDT Clinical Support [facility] MED & PEDS [address] [place] [address] Alana Hook, RN 505 [place] [address] 02/22/2025 1:45 PM EDT Office Visit [facility] CHC MED & PEDS 505 [place] [address] Ayaka Salgado MD 505 [place] [address] documented as of this encounter Visit Diagnoses Diagnosis Congestive heart failure, unspecified HF chronicity, unspecified heart failure type (CMS/HCC) Primary osteoarthritis involving multiple joints documented in this encounter Additional Health Concerns Assessment Noted Time PHQ-9 Depression Total Score: 7 08/29/20 22 10:26 AM EST documented as of this encounter Care Teams Industrial Spraypainter Relationship Specialty Start Date End Date Ayaka Salgado MD 505 [place] [address] PCP - General Internal Medicine 09/15/18 documented as of this encounter
--- OUTSIDE RECORDS SUMMARY | 2024-11-23 06:41 | XMS_ITS | Encounter Summary ---
Author Organization [employer] Address 75 [facility] 7t [place] [address] Care Team Providers Care Assistant Family Teacher Name Role Phone Ayaka Salgado MD Primary Care Provider [phone] Reason for Visit * Reason Comments Med Refill Encounter Details Date Type Department Care Team (Late st Contact Info) Description 03/02/2024 Refill [facility] MEDICINE [address] [place] [address] Ayaka Salgado MD [address] [facility] [address] [place] [address] Primary osteoarthritis involving multiple joints Social History [...] [facility] MED & PEDS 505 [place] [address] Alana Hook, RACHELLE 505 [place] [address] 02/22/2025 1:45 PM EDT Office Visit [facility] MED & PEDS 505 [place] [address] Ayaka Salgado MD 505 [place] [address] documented as of this encounter Visit Diagnoses Diagnosis Primary osteoarthritis involving multiple joints documented in this encounter Additional Health Concerns Assessment Noted Time PHQ-9 Depression Total Score: 7 08/29/20 22 10:26 AM EST documented as of this encounter Care Teams Assistant Family Teacher Relationship Specialty Start Date End Date Ayaka Salgado MD 505 [place] [address] PCP - General Internal Medicine 09/15/18 documented as of this encounter
--- OUTSIDE RECORDS SUMMARY | 2024-11-23 06:41 | XMS_ITS | Encounter Summary ---
Author Organization [employer] Address 75 [facility] 7 [place] [address] Care Team Providers Care Systems Development Consultant Name Role Phone Ayaka Salgado MD Primary Care Provider [phone] Reason for Visit * Reason Onset Date Comments Med Refill 07/31/2023 Encounter Details Date Type Department Care Team ([facility] st Contact Info) Description 07/31/2023 Telephone [facility] MEDICINE [address] [place] [address] Ayaka Salgado MD 505 [facility] [place] [address] Med Refill Social History Tobacco Use Types [...] Upcoming Encounters Date Type Department Care Team ([facility] st Contact Info) Description 11/24/2024 9:00 AM EDT Clinical Support [facility] MED & PEDS 505 [place] [address] Alana Hook RN 505 [place] [address] 02/22/2025 1:45 PM EDT Office Visit [facility] MED & PEDS 505 [place] [address] Ayaka Salgado MD 505 [place] [address] documented as of this encounter Visit Diagnoses Not on filedocumented in this encounter Additional Health Concerns Assessment Noted Time PHQ-9 Depression Total Score: 7 08/29/20 22 10:26 AM EST documented as of this encounter Care Teams Systems Development Consultant Relationship Specialty Start Date End Date Ayaka Salgado MD [address] [place] [address] PCP - General Internal Medicine 09/15/18 documented as of this encounter
--- OUTSIDE RECORDS SUMMARY | 2024-11-23 06:41 | XMS_ITS | Encounter Summary ---
Author Organization [employer] Address 75 [facility] 7t [place] [address] Care Team Providers Care International Project Manager Name Role Phone Ayaka Salgado MD Primary Care Provider [phone] Reason for Visit * Reason Comments Med Refill Encounter Details Date Type Department Care Team ([facility] st Contact Info) Description 06/15/2024 Refill [facility] MEDICINE 230 [place], [place] [phone] Lev Gentile MD 230 [place] [address] Chronic pruritus Social History Tobacco Use Types [...] [facility] MED & PEDS [address] [place] [address] Alana Hook, RACHELLE 505 [place] [address] 02/22/2025 1:45 PM EDT Office Visit [facility] MED & PEDS [address] [place] [address] Ayaka Salgado MD 505 [place] [address] documented as of this encounter Visit Diagnoses Diagnosis Chronic pruritus documented in this encounter Additional Health Concerns Assessment Noted Time PHQ-9 Depression Total Score: 7 08/29/20 22 10:26 AM EST documented as of this encounter Care Teams International Project Manager Relationship Specialty Start Date End Date Ayaka Salgado MD 505 [place] [address] PCP - General Internal Medicine 09/15/18 documented as of this encounter
--- OUTSIDE RECORDS SUMMARY | 2024-11-23 06:41 | XMS_ITS | Encounter Summary ---
Author Organization [employer] Address 75 [facility] 7 [place] [address] Care Team Providers Care Customs Manager Name Role Phone Ayaka Salgado MD Primary Care Provider [phone] Reason for Visit * Reason Onset Date Comments Med Refill 11/03/2024 Encounter Details Date Type Department Care Team (Late st Contact Info) Description 11/03/2024 Refill [facility] MEDICINE [address] [place] [address] Ayaka Salgado MD 505 [facility] [place] [address] Arthropathy Social History Tobacco Use Types Packs/Day [...] 5-325 MG tablet To be sent to: [id number] [place] - [facility] [place] [facility] documented in this encounter Plan of Treatment Upcoming Encounters Date Type Department Care Team ([facility] st Contact Info) Description 11/24/2024 9:00 AM EDT Clinical Support [facility] MED & PEDS 505 [place] [address] Alana Hook RN 505 [place] [address] 02/22/2025 1:45 PM EDT Office Visit [facility] MED & PEDS 505 [place] [address] Ayaka Salgado MD 505 [place] [address] documented as of this encounter Visit Diagnoses Diagnosis Arthropathy Unspecified arthropathy, site unspecified documented in this encounter Additional Health Concerns Assessment Noted Time PHQ-9 Depression Total Score: 7 08/29/20 22 10:26 AM EST documented as of this encounter Care Teams Customs Manager Relationship Specialty Start Date End Date Ayaka Salgado MD [address] [place] [address] PCP - General Internal Medicine 09/15/18 documented as of this encounter
--- OUTSIDE RECORDS SUMMARY | 2024-11-23 06:41 | XMS_ITS | Encounter Summary ---
Author Organization [employer] Address [address] [facility] [address] 7[address] [place] [address] Care Team Providers Care Team Otr Truck Driver Name Role Phone Ayaka Salgado MD Primary Care Provider [phone] Encounter Details Date Type Department Care Team ([facility] st Contact Info) Description 06/25/2024 Orders Only [facility] CHC MED & PEDS [address] [place] [address] ProviderRan MD Social History Tobacco Use Types [...] 9:00 AM EDT Clinical Support [facility] MED & PEDS 505 [place] [address] Alana Hook RN 505 [place] [address] 02/22/2025 1:45 PM EDT Office Visit [facility] MED & PEDS 505 [place] [address] Ayaka Salgado MD 505 [place] [address] documented as of this encounter Procedures Procedure [...] documented as of this encounter Care Teams Team Otr Truck Driver Relationship Specialty Start Date End Date Ayaka Salgado MD 505 [place] [address] PCP - General Internal Medicine 09/15/18 documented as of this encounter
--- OUTSIDE RECORDS SUMMARY | 2024-11-23 06:41 | XMS_ITS | Encounter Summary ---
Author Organization [employer] Address [address] [place] [address] 7 [place] [address] Care Team Providers Care Pinsetter Mechanic Helper Name Role Phone Ayaka Salgado MD Primary Care Provider [phone] Reason for Visit * Reason Onset Date Comments Med Refill 12/12/2022 Encounter Details Date Type Department Care Team ([facility] st Contact Info) Description 12/12/2022 Telephone [facility] CHC MED & PEDS 505 [place] [address] Ayaka Salgado MD 505 [place] [address] Med Refill Social History Tobacco Use Types [...] (Percocet) 5-325 MG tablet Please sent to [facility][id number] - [place], [place] - [address] [facility] documented in this encounter Plan of Treatment Upcoming Encounters Date Type Department Care Team (Late st Contact Info) Description 11/24/2024 9:00 AM EDT Clinical Support [facility] MED & PEDS 505 [place] [address] Alana Hook, RN 505 [place] [address] 02/22/2025 1:45 PM EDT Office Visit [facility] MED & PEDS 505 [place] [address] Ayaka Salgado MD 505 [place] [address] documented as of this encounter Visit Diagnoses Not on filedocumented in this encounter Additional Health Concerns Assessment Noted Time PHQ-9 Depression Total Score: 7 08/29/20 22 10:26 AM EST documented as of this encounter Care Teams Pinsetter Mechanic Helper Relationship Specialty Start Date End Date Ayaka Salgado MD 505 [place] [address] PCP - General Internal Medicine 09/15/18 documented as of this encounter
--- OUTSIDE RECORDS SUMMARY | 2024-11-23 06:41 | XMS_ITS | Encounter Summary ---
Author Organization [employer] Address 75 [facility] 7t [place] [address] Care Team Providers Care Temper Mill Roller Name Role Phone Ayaka Salgado MD Primary Care Provider [phone] Encounter Details Date Type Department Care Team ([facility] st Contact Info) Description 08/18/2024 Telephone [facility] MEDICINE [address] [place] [address] Ayaka Salgado MD [address] [place] [address] Social History Tobacco Use Types Packs/Day Years [...] Description 11/24/2024 9:00 AM EDT Clinical Support [facility] MED & PEDS [address] [place] [address] Alana Hook RN 505 [place] [address] 02/22/2025 1:45 PM EDT Office Visit [facility] MED & PEDS [address] [place] [address] Ayaka Salgado MD [address] [place] [address] documented as of this encounter Visit Diagnoses Not on filedocumented in this encounter Additional Health Concerns Assessment Noted Time PHQ-9 Depression Total Score: 7 08/29/20 22 10:26 AM EST documented as of this encounter Care Teams Temper Mill Roller Relationship Specialty Start Date End Date Ayaka Salgado MD [address] [place] [address] PCP - General Internal Medicine 09/15/18 documented as of this encounter
--- OUTSIDE RECORDS SUMMARY | 2024-11-23 06:41 | XMS_ITS | Encounter Summary ---
Author Organization [employer] Address 75 [facility] 7t [place] [address] Care Team Providers Care Metal Coater Name Role Phone Ayaka Salgado MD Primary Care Provider [phone] Encounter Details Date Type Department Care Team ([facility] st Contact Info) Description 09/22/2023 Orders Only [facility] CHC MED & PEDS [address] [place] [address] Ayaka Salgado MD 505 [place] [address] Simple chronic bronchitis (CMS/HCC) (Primary Dx) Social [...] 9:00 AM EDT Clinical Support [facility] MED & PEDS [address] [place] [address] Alana Hook, RACHELLE 505 [place] [address] 02/22/2025 1:45 PM EDT Office Visit [facility] MED & PEDS [address] [place] [address] Ayaka Salgado MD 505 [place] [address] documented as of this encounter Visit Diagnoses Diagnosis Simple chronic bronchitis (CMS/HCC)- Primary Simple chronic bronchitis documented in this encounter Additional Health Concerns Assessment Noted Time PHQ-9 Depression Total Score: 7 08/29/20 22 10:26 AM EST documented as of this encounter Care Teams Metal Coater Relationship Specialty Start Date End Date Ayaka Salgado MD [address] [place] [address] PCP - General Internal Medicine 09/15/18 documented as of this encounter
== END 2024-11-23 06:39 | disposition home or self-care (01) ==
LOC: HO.CT 06:38
PROVIDERS: PCP Internal Medicine; Visit Provider Internal Medicine Nephrology
DX: Z01.818 Encounter for other preprocedural examination (principal); N18.6 End stage renal disease
CPT/HCPCS: 74176

== ENCOUNTER → 2024-11-23 06:41 | Outpatient (BNV) | payer MEDICARE, SELFPAY | PROVIDERS: PCP Internal Medicine; Visit Provider Radiology Diagnostic Radiology | DX: N28.1 Cyst of kidney, acquired (principal); N26.1 Atrophy of kidney (terminal) | CPT/HCPCS: 74176 ==

== ENCOUNTER 2024-11-29 09:50 | Outpatient (AMB) | payer MEDICARE, SELFPAY ==
[2024-11-29 10:03] VITALS: BP 120/70; PULSE 74; O2SAT 97; BMI 36.6
--- NOTE | 2024-11-29 10:03 | HO.NEPHOV_ITS ---
Vital Signs 11/29/24 10:03 Height 5 ft 7 in Weight 234 lb BMI 36.6 BP 120/70 Blood Pressure Location Rt brachial Position Sitting Pulse 74 Pulse Source Pulse Oximeter Pulse Oximetry (%) 97 Oxygen Delivery Method Room Air Intake Visit Reasons: Retacrit Otr Flatbed Driver Required: No Accompanied by: Self / Same As Patient Allergies aspirin Adverse Reaction (Unknown, Verified 11/29/24 10:05) nose bleeds metformin Adverse Reaction (Unknown, Verified 11/29/24 10:05) hypoglycemia warfarin [From Coumadin] Adverse Reaction (Unknown, Verified 11/29/24 10:05) Nose Bleed apixaban Adverse Reaction (Verified 11/29/24 10:05) Nose Bleed clopidogrel Adverse Reaction (Verified 11/29/24 10:05) Nose Bleed Medication List - Last Reconciled 11/29/24 by Ross Baldwin MD acetaminophen (Tylenol) 650 mg PO Q6H PRN albuterol sulfate 90 mcg/actuation (Ventolin HFA) inhalation albuterol sulfate mg inhalation blood-glucose meter (FreeStyle Lite Meter kit) As directed bumetanide 1 mg PO BID calcitriol 0.25 mcg PO DAILY cholecalciferol (vitamin D3) 25 mcg PO Q48H cinacalcet 30 mg PO DAILY clonidine HCl 0.2 mg PO TID 90 days gabapentin 300 mg PO TID glimepiride 1 mg PO DAILY guaifenesin ER mg PO hydralazine 100 mg PO TID labetalol 400 mg PO BID lancets (FreeStyle Lancets) As directed lidocaine 5% 1 patch topical DAILY PRN losartan 50 mg PO DAILY melatonin 5 mg PO BEDTIME oxycodone-acetaminophen 5-325 mg 1 tab PO Q8H PRN simvastatin 20 mg PO BEDTIME sitagliptin phosphate (Januvia) 25 mg PO DAILY tiotropium bromide (Spiriva with HandiHaler) 1 cap inhalation DAILY zolpidem 10 mg PO BEDTIME HPI Comments Details: 67-year-old male with a history of type 2 diabetes, HTN, CKD, carotid stenosis, COPD, LEONEL not on CPAP, diastolic CHF with preserved ejection fraction, He has advanced CKD Baseline creatinine is between 3.5 and 4.0 Currently on high dose of Bumex -Takes 1mg BID No edema No dyspnea 06/15/24 ; c/o SOB;Gained some weight/edema ;Went to [place] 06/25/24 ;After adding metolazone 2 doses and increasing Bumex to 1 mg b.i.d. he has lost about 7 lb. His breathing has improved. He feels better 07/27/24;doing much better;seen by cardiology 08/30/24 ;Dyspnea on exertion ;Weight is down by few lbs 09/13/24 ; c/o difficulty sleeping ;He has LEONEL -but does not use CPAP ; New onset A.fib - work up in progress 11/08/24: Still sOB on exertion;Seeing cardilogy today [facility] Medical History Obesity (BMI 30-39.9) Elevated brain natriuretic peptide (BNP) level Lower extremity edema COPD (chronic obstructive pulmonary disease) LEONEL (obstructive sleep apnea) Dyspnea on minimal exertion COPD (chronic obstructive pulmonary disease) Smoker Left ventricular hypertrophy Smoking CKD (chronic kidney disease) Obesity Dyslipidemia Hypertension Diabetes mellitus Surgical History No pertinent past surgical history Family History Father No problems noted. Mother Diabetes Family/Other No problems noted. Social History Household Members: Significant Other Housing: Apartment Do you presently have visiting nurse or other home services: No Alcohol intake: current Alcohol intake frequency: a few times a month Patient Tobacco Use Status: Former Tobacco user e-Cigarette/Vaping Use: Never Used Second Hand Smoke Exposure: No Advance Directives Date on File: 08/23/22 service: No Current occupational status: disabled Physical Exam Vital Signs: Last Vital Signs Pulse 74 11/29/24 10:03 BP 120/70 11/29/24 10:03 Pulse Ox 97 11/29/24 10:03 Oxygen Delivery Method Room Air 11/29/24 10:03 BMI result Body Mass Index 36.6 Office Meds epoetin chad-epbx 10,000 unit/mL injection solution Performing Provider: Ross Baldiwn MD Performing Location[facility] Administered by: Ross Baldwin MD on 11/29/24 10:16 Dose Route Admin Location Dispensed Lot Number Expiration Date NDC Outpatient Receptionist 10,000 unit subcut left arm 1 mL [id number] 02/12/26 8264-4797-56 [employer] Results Reviewed Nephrology Results: Hgb 8.4 g/dl (14.0-18.0) L 11/03/24 WBC 5.5 X10*3/uL (4.8-10.8) 11/03/24 Plt Count 203 X10*3/uL (160-400) 11/03/24 Sodium 141 mmol/L (135-145) 11/03/24 Potassium 4.7 mmol/L (3.3-5.1) 11/03/24 Chloride 108 mmol/L (96-108) 11/03/24 Carbon Dioxide 23 mmol/L (22-29) 11/03/24 BUN 50 mg/dL (9-16) H 11/03/24 Creatinine 4.57 mg/dL (0.5-1.4) H* 11/03/24 Calcium 7.7 mg/dL (8.4-10.2) L 11/03/24 Assessment & Plan Assessment & Plan (1) CKD (chronic kidney disease) stage 4, GFR 15-29 ml/min: Code(s): N18.4 - Chronic kidney disease, stage 4 (severe) Category: Medical (2) Essential hypertension: Code(s): I10 - Essential (primary) hypertension Category: Medical Plan: BP appears well controlled. We discussed weight loss and low-salt diet again. (3) Chronic diastolic congestive heart failure: Code(s): I50.32 - Chronic diastolic (congestive) heart failure Category: Medical Plan: Compensated. Follows with cardiology. (4) Obesity (BMI 30-39.9): Code(s): E66.9 - Obesity, unspecified Category: Medical Plan: Discussed weight loss. (5) Hyperparathyroidism: Code(s): E21.3 - Hyperparathyroidism, unspecified Category: Medical Plan: Repeat calcium is 7. He is currently on cinacalcet and Rocaltrol. Will HOLD Cinacalcet ( 11/08/24) Follow PTH (6) Anemia: Code(s): D64.9 - Anemia, unspecified Category: Medical Plan: Due to CKD Administered Retacrit U Sq Plan Referred to dialysis education program. He will be a good candidate for CCPD Discussed pre-emptive transplant REfered to [facility] - seen in Nov Orders: Orders Complete Blood Count no Diff 3 Weeks D64.9 - Anemia, unspecified, E21.3 - Hyperparathyroidism, unspecified Basic Metabolic Panel 3 Weeks D64.9 - Anemia, unspecified, E21.3 - Hyperparathyroidism, unspecified AMB Epoetin Injection Practice Supplied Today N40.1 - Benign prostatic hyperplasia with lower urinary tract symptoms Medications: New epoetin chad-epbx 10,000 units subcut ONCE 1 mL 0RF N40.1 - Benign prostatic hyperplasia with lower urinary tract symptoms Refilled calcitriol 0.25 mcg PO DAILY 30 caps 2RF Coding Level of Care Code Est Pt Level 4 (31590) Diagnoses CKD (chronic kidney disease) stage 4, GFR 15-29 ml/min N18.4 Essential hypertension I10 Chronic diastolic congestive heart failure I50.32 Obesity (BMI 30-39.9) E66.9 Hyperparathyroidism E21.3 Anemia D64.9
== END 2024-11-29 10:18 | disposition home or self-care (01) ==
PROVIDERS: PCP Internal Medicine; Visit Provider Internal Medicine Hypertension Specialist
DX: I12.9 Hypertensive chronic kidney disease with stage 1 through stage 4 chronic kidney disease, or unspecified chronic kidney disease (principal); N18.4 Chronic kidney disease, stage 4 (severe); I50.32 Chronic diastolic (congestive) heart failure; E66.9 Obesity, unspecified; E21.3 Hyperparathyroidism, unspecified; D64.9 Anemia, unspecified; N40.1 Benign prostatic hyperplasia with lower urinary tract symptoms
CPT/HCPCS: 99214

== ENCOUNTER → 2024-11-29 09:50 | Outpatient (BNVA) | payer MEDICARE, SELFPAY | PROVIDERS: PCP Internal Medicine; Visit Provider Internal Medicine Hypertension Specialist | DX: I13.0 Hypertensive heart and chronic kidney disease with heart failure and stage 1 through stage 4 chronic kidney disease, or unspecified chronic kidney disease (principal); N18.4 Chronic kidney disease, stage 4 (severe); I50.32 Chronic diastolic (congestive) heart failure; D63.1 Anemia in chronic kidney disease; E66.9 Obesity, unspecified; E21.3 Hyperparathyroidism, unspecified; Z68.36 Body mass index [BMI] 36.0-36.9, adult | CPT/HCPCS: 96372; 99212; Q5106 ==

== ENCOUNTER 2024-12-07 10:23 | Outpatient (REF) | payer MEDICARE, SELFPAY | END 2024-12-07 10:24 | disposition home or self-care (01) | LOC: HO.CHCLDS 10:23 | PROVIDERS: PCP Internal Medicine; Visit Provider Internal Medicine Nephrology | DX: N18.5 Chronic kidney disease, stage 5 (principal); Z01.818 Encounter for other preprocedural examination | CPT/HCPCS: 86900; 86901 ==

== ENCOUNTER → 2024-12-07 23:59 | Outpatient (BNV) | payer MEDICARE, SELFPAY ==
--- NOTE | 2024-12-10 16:58 | A.OFFVIS_ITS ---
Intake Visit Reasons: Remote Cardiomems- St Jr Allergies aspirin Adverse Reaction (Unknown, Verified 11/29/24 10:05) nose bleeds metformin Adverse Reaction (Unknown, Verified 11/29/24 10:05) hypoglycemia warfarin [From Coumadin] Adverse Reaction (Unknown, Verified 11/29/24 10:05) Nose Bleed apixaban Adverse Reaction (Verified 11/29/24 10:05) Nose Bleed clopidogrel Adverse Reaction (Verified 11/29/24 10:05) Nose Bleed [facility] Medical History Obesity (BMI 30-39.9) Elevated brain natriuretic peptide (BNP) level Lower extremity edema COPD (chronic obstructive pulmonary disease) LEONEL (obstructive sleep apnea) Dyspnea on minimal exertion COPD (chronic obstructive pulmonary disease) Smoker Left ventricular hypertrophy Smoking CKD (chronic kidney disease) Obesity Dyslipidemia Hypertension Diabetes mellitus Surgical History No pertinent past surgical history Family History Father No problems noted. Mother Diabetes Family/Other No problems noted. Social History Household Members: Significant Other Housing: Apartment Do you presently have visiting nurse or other home services: No Alcohol intake: current Alcohol intake frequency: a few times a month Patient Tobacco Use Status: Former Tobacco user e-Cigarette/Vaping Use: Never Used Second Hand Smoke Exposure: No Advance Directives Date on File: 08/23/22 service: No Current occupational status: disabled Office Procedures Cardiac Device Check Cardiac Device Check Details: Monitoring period dates: 11/06/24 - 12/07/24 Optimal PA pressure range: PAD goal 16mmhg Procedure code: 82850 BACKGROUND: Lewis is implanted with the CardioMEMS PA Sensor.? I use this technology to monitor PA pressures on a weekly basis to ensure patients are within their optimal range to prevent decompensation.? SUMMARY:? I utilized the remote monitoring platform (Diz[employer] Samurai) to set optimal targets for pulmonary artery pressure thresholds as part of acute and chronic management of patient?s heart failure. During the period indicated above, I monitored the patient?s pulmonary artery pressures weekly via trend analysis and notification reports which provide alerts when patient?s PA pressures were outside of range to prompt immediate action in medication changes and communications.? The weekly reports are archived in the Dizko Samurai system which serve as a parallel record to document weekly PA pressures, medication changes, and clinical notes. I have reviewed readings on 11/12, 11/19, 11/26, 12/03, 12/07. Readings have ranged between 26-33mmhg. He has advanced CKD and no diuretic changes were made. No significant changes in the last month. 03544 - Remote monitoring of wireless pulmonary artery pressure sensor Procedure code (CPT) selection complete Assessment & Plan Assessment & Plan (1) Presence of CardioMEMS HF system: Code(s): Z95.818 - Presence of other cardiac implants and grafts Category: Medical Plan: monthly report Coding Level of Care Code Procedure Only Diagnoses Presence of CardioMEMS HF system Z95.818 CPT Codes Cardiac Device Check - Cardiac Device 17: 89475 - Remote monitoring of wireless pulmonary artery pressure sensor ([id number])
== END ==
PROVIDERS: PCP Internal Medicine; Visit Provider Nurse Practitioner Family
DX: Z45.09 Encounter for adjustment and management of other cardiac device (principal)
CPT/HCPCS: 93264

== ENCOUNTER 2024-12-29 10:22 | Outpatient (REF) | payer MEDICARE, SELFPAY ==
--- OUTSIDE RECORDS SUMMARY | 2024-12-29 12:06 | XMS_ITS | Encounter Summary ---
Author Organization [employer] Address [address] [place] [address] 7 [place] [address] Care Team Providers Care Tool Grinder Set Up Operator Gear Name Role Phone Ayaka Salgado MD Primary Care Provider [phone] Reason for Visit * Reason Comments Med Refill Encounter Details Date Type Department Care Team ([facility] Contact Info) Description 02/24/2023 Refill [facility] MED & PEDS [address] [place] [address] Ayaka Salgado MD [address] [place] [address] Social History Tobacco Use Types Packs/Day Years [...] ([facility] st Contact Info) Description 02/01/2025 9:00 AM EDT Clinical Support [facility] MED & PEDS [address] [place] [address] Alana Hook, RACHELLE [address] [place] [address] 02/22/2025 1:45 PM EDT Office Visit [facility] MED & PEDS [address] [place] [address] Ayaka Salgado MD [address] [place] [address] documented as of this encounter Visit Diagnoses Not on filedocumented in this encounter Additional Health Concerns Assessment Noted Time PHQ-9 Depression Total Score: 7 08/29/20 22 10:26 AM EST documented as of this encounter Care Teams Tool Grinder Set Up Operator Gear Relationship Specialty Start Date End Date Ayaka Salgado MD [address] [place] [address] PCP - General Internal Medicine 09/15/18 documented as of this encounter
--- OUTSIDE RECORDS SUMMARY | 2024-12-29 12:06 | XMS_ITS | Referral Summary ---
Author Organization [facility] Address [address] [place] [address] Care Team Providers Care Polymer Specialist Name Role Phone Ayaka Salgado Primary Care Provider [phone] Encounters Date Type Department Care Team Description 11/24/2024 Orders Only [facility] Transplant Department [address] [place] [address] [phone] Shima Springer RN Pre-transplant evaluation for end stage renal disease (Primary Dx); Chronic kidney disease, stage V 11/23/2024 Telephone [facility] Transplant Department [address] [place], [place] [id number] Shima Springer, abrasives sales representative - Kidney Txp from Last 3 Months Allergies Active Allergy [...] Info) Description 08/02/2025 8:20 AM EST Follow-Up [facility] Renal Transplant [address] [place] [address] Joey Duarte MD [address] [place] [address] 08/02/2025 9:00 AM EST Social Work [facility] Renal Transplant [address] [place] [address] Susan Babb LICSW [address] [place] [address] Procedures * Due to [place] state law, this organization might not be sharing negative HIV tests. Procedure Name Priority Date/Time Associated Diagnosis Comments HEPATITIS C ANTIBODY W/REFLEX TO HCV RNA, QUANTITATIVE PCR Routine 07/29/2024 12:57 PM EST Pre-transplant evaluation for end stage renal disease Chronic kidney disease, stage IV (severe) HEMOGLOBIN A1C Routine 07/29/2024 12:57 PM EST Pre-transplant evaluation for end stage renal disease Chronic kidney disease, stage IV (severe) Controlled type 2 diabetes mellitus with diabetic nephropathy, with long-term current use of insulin CBC AUTO DIFFERENTIAL Routine 07/29/2024 12:57 PM EST Pre-transplant evaluation for end stage renal disease Chronic kidney disease, stage IV (severe) PHOSPHORUS Routine 07/29/2024 12:57 PM EST Pre-transplant evaluation for end stage renal disease Chronic kidney disease, stage IV (severe) from Last 3 Months or Most Recently Relevant to Health Maintenance Results * Due to [place] state law, this organization might not be [...] 0.0 /100 WBCs 07/29/2024 1:35 PM EST [facility] nRBC # <0.01 <0.01 10*3/uL 07/29/2024 1:35 PM EST [facility] Blood Structure of peripheral vein / Unknown Venipuncture / Unknown 07/29/2024 12:57 PM EST 07/29/2024 1:29 PM EST Joey Duarte MD LAB BLOOD ORDERABLES María l Result [facility] [address] [place] [address], * Hepatitis C Antibody w/Reflex to PCR (07/29/2024 12:57 PM EST) Hepatitis C Antibody NON-REACT STANFORD NON-REACT STANFORD 07/30/2024 3:03 AM EST [facility] Comment: HCV antibody was non-reactive. There is no laboratory evidence of HCV infection. In most cases, no further action is required. However, if recent HCV exposure is suspected, a test for HCV RNA (test code 55216) is suggested. For additional information please refer to http://education.[employer]/faq/CAV19k8 (This link is being provided for informational/ educational purposes only.) Blood Structure of peripheral vein / Unknown Venipuncture / Unknown 07/29/2024 12:57 PM EST 07/29/2024 1:32 PM EST Narrative [facility] 07/30/2024 3:03 AM EST [facility] Received Date: Joey Duarte MD LAB BLOOD ORDERABLES María l Result [facility] [address] [facility] 3rd Floor, [place] [address], [place] [phone] [facility] [address] [facility] 3rd Floor, [place] [address], [place] [phone] * Phosphorus (07/29/2024 12:57 PM EST) Phosphorus 4.5 2.5 - 4.5 mg/dL 07/29/2024 2:00 PM EST [facility] Blood Structure of peripheral vein / Unknown Venipuncture / Unknown 07/29/2024 12:57 PM EST 07/29/2024 1:29 PM EST Joey Duarte MD LAB BLOOD ORDERABLES María l Result [facility] [address] [place] [phone], * (ABNORMAL) Hemoglobin A1c (07/29/2024 12:57 PM EST) Hemoglobin A1C 6.7(H) <5.7 % of total Hgb 07/30/2024 1:59 AM [facility] Comment: For someone without known diabetes, a [...] (MG/DL) 146 mg/dL 07/30/2024 1:59 AM EST [facility] e[facility] (MMOL/L) 8.1 mmol/L 07/30/2024 1:59 AM [facility] Blood Structure of peripheral vein / Unknown Venipuncture / Unknown 07/29/2024 12:57 PM EST 07/29/2024 1:32 PM EST Narrative [facility] - 07/30/2024 1:59 AM EST [facility] Received Date: Joey Duarte MD LAB BLOOD ORDERABLES María l Result [facility] [address], [address] [place] [address], [place] [phone] [facility] [address], [address] [place] [address], [place] [phone] from Last 3 Months or Most Recently Relevant to Health Maintenance Insurance [facility] REPLACE [facility] MCR REPLACE [facility] Advance Directives Documents on File Type Date Recorded Patient Director Revenue Expl [facility] Health Care Proxy 08/05/2024 4:14 PM - Care Teams Polymer Specialist Relationship Specialty Start Date End Date Ayaka Salgado [address] [place] [address] PCP - General Internal Medicine 07/29/24
--- OUTSIDE RECORDS SUMMARY | 2024-12-29 12:06 | XMS_ITS | Encounter Summary ---
Author Organization [facility] Address [address] [place] [address] Care Team Providers Care Environmental Services Tech Name Role Phone Ayaka Salgado Primary Care Provider [phone] Encounter Details Date Type Department Care Team (Late st Contact Info) Description 07/29/2024 Orders Only [facility] XRay [address] [place] [address] Waqas Garnett MD [address] [place] [address] Social History Tobacco Use Types Packs/Day Years [...] Info) Description 08/02/2025 8:20 AM EST Follow-Up [facility] Renal Transplant [address] [place] [address] Joey Duarte MD [address] [place] [address] 08/02/2025 9:00 AM EST Social Work [facility] Renal Transplant [address] [place] [address] Susan Babb LICSW [address] [place] [address] documented as of this encounter Visit Diagnoses Not on filedocumented in this encounter Care Teams Environmental Services Tech Relationship Specialty Start Date End Date Ayaka Salgado [address] [place] [address] PCP - General Internal Medicine 07/29/24 documented as of this encounter
--- OUTSIDE RECORDS SUMMARY | 2024-12-29 12:06 | XMS_ITS ---
Author Organization [facility] Address [address] [place] [address] Care Team Providers Care Submarine Advisory Team Watch Officer Name Role Phone Ayaka Salgado Primary Care Provider Transplant Episode Kidney Candidate [facility] ([place], [place]) - [facility] Evaluation began on 07/29/2024 Marked as Active on 07/29/2024 Kidney CoordinatorShima Springer RN Email: N/A Scores Score Value Updated Exceptions/Reas ons CPRA Not available EPTS (Calc) 44 12/29/2024 [place] [facility] Diagnosis Organ Primary Contributory Kidney Diabetes Mellitus - Type II Care Team Name Role Phone Fax Email Shima Springer RN Kidney Coordinator [phone] N/A Ross Baldwin Referring Physician [phone] N/A Events Pre-Transplant Referred: 07/19/2024 Evaluation began: 07/29/2024
--- OUTSIDE RECORDS SUMMARY | 2024-12-29 12:06 | XMS_ITS | Encounter Summary ---
Author Organization [employer] Address [address] [facility] 7 [place] [address] Care Team Providers Care Child Specialist Name Role Phone Ayaka Salgado MD Primary Care Provider [phone] Reason for Visit * Reason Onset Date Comments Med Refill 12/28/2024 Encounter Details Date Type Department Care Team (Late st Contact Info) Description 12/28/2024 Refill [facility] MEDICINE [address] [place] [address] Ayaka Salgado MD [address] [facility] [place] [address] Social History Tobacco Use Types Packs/Day Years [...] the past 12 months, has t he [employer], gas, oil or water company threatened to [...] * Telephone Encounter - Edward Vallejo - 12/28/2024 8:10 AM EDT TC from pt requesting medication refill. Medications needing refill : simvastatin (Zocor) 20 MG tablet To be sent to: [id number] [place], [place] - [facility] [place] [facility] documented in this encounter Plan of Treatment Upcoming Encounters Date Type Department Care Team ([facility] st Contact Info) Description 02/01/2025 9:00 AM EDT Clinical Support [facility]EDS [address] [place] [address] Alana Hook RN [address] [place] [address] 02/22/2025 1:45 PM EDT Office Visit [facility]ED[facility] [address] [place] [address] Ayaka Salgado MD [address] [place] [address] documented as of this encounter Visit Diagnoses Not on filedocumented in this encounter Additional Health Concerns Assessment Noted Time PHQ-9 Depression Total Score: 12 025 11:13 AM EDT documented as of this encounter Care Teams Child Specialist Relationship Specialty Start Date End Date Ayaka Salgado MD [address] [place] [address] PCP - General Internal Medicine 09/15/18 documented as of this encounter
--- OUTSIDE RECORDS SUMMARY | 2024-12-29 12:06 | XMS_ITS | Encounter Summary ---
Author Organization [employer] Address [address] [facility] 7 [place] [address] Care Team Providers Care Supervisor Plastics Name Role Phone Ayaka Salgado MD Primary Care Provider [phone] Reason for Visit * Reason Onset Date Comments Med Refill 12/24/2024 Encounter Details Date Type Department Care Team (Late st Contact Info) Description 12/24/2024 Refill [facility] MEDICINE [address] [place] [address] Ayaka Salgado MD [address] [facility] [place] [address] Primary insomnia Social History Tobacco Use Types [...] * Telephone Encounter - Edward Vallejo - 12/24/2024 8:15 AM EDT TC from pt requesting medication refill. Medications needing refill : zolpidem (Ambien) 10 MG tablet To be sent to: [id number] - [place], [place] - [facility] [place] [facility] [place] documented in this encounter Plan of Treatment Upcoming Encounters Date Type Department Care Team ([facility] st Contact Info) Description 02/01/2025 9:00 AM EDT Clinical Support [facility] MED & PEDS [address] [place] [address] Alana Hook, RN [address] [place] [address] 02/22/2025 1:45 PM EDT Office Visit [facility] MED & PEDS [address] [place] [address] Ayaka Salgado MD [address] [place] [address] documented as of this encounter Visit Diagnoses Diagnosis Primary insomnia Persistent disorder of initiating or maintaining sleep documented in this encounter Additional Health Concerns Assessment Noted Time PHQ-9 Depression Total Score: 12 025 11:13 AM EDT documented as of this encounter Care Teams Supervisor Plastics Relationship Specialty Start Date End Date Ayaka Salgado MD [address] [place] [address] PCP - General Internal Medicine 09/15/18 documented as of this encounter
--- OUTSIDE RECORDS SUMMARY | 2024-12-29 12:07 | XMS_ITS | Encounter Summary ---
Author Organization [employer] Address [address] [facility] 7 [place] [address] Care Team Providers Care Hydrator Name Role Phone Ayaka Salgado MD Primary Care Provider [phone] Reason for Visit * Reason Onset Date Comments Med Refill 07/31/2023 Encounter Details Date Type Department Care Team ([facility] st Contact Info) Description 07/31/2023 Telephone [facility] MEDICINE [address] [place] [address] Ayaka Salgado MD [address] [facility] [place] [address] Med Refill Social History Tobacco Use Types [...] Upcoming Encounters Date Type Department Care Team ([facility] st Contact Info) Description 02/01/2025 9:00 AM EDT Clinical Support [facility] MED & PEDS [address] [place] [address] Alana Hook RN [address] [place] [address] 02/22/2025 1:45 PM EDT Office Visit [facility] MED & PEDS [address] [place] [address] Ayaka Salgado MD [address] [place] [address] documented as of this encounter Visit Diagnoses Not on filedocumented in this encounter Additional Health Concerns Assessment Noted Time PHQ-9 Depression Total Score: 7 08/29/20 10:26 AM EST documented as of this encounter Care Teams Hydrator Relationship Specialty Start Date End Date Ayaka Salgado MD [address] [place] [address] PCP - General Internal Medicine 09/15/18 documented as of this encounter
--- OUTSIDE RECORDS SUMMARY | 2024-12-29 12:07 | XMS_ITS ---
Author Organization [facility] Address [address] [place] [address] 7 [place] [address] Care Team Providers Care Bus Cleaner Name Role Phone Ayaka Salgado MD Primary Care Provider [phone] ADVERTISING PHOTOGRAPHER Status:Enrolled (Active) Start date:12/20/2022 Enrollment date:12/20/2022 Case Team Name Relationship Phone Alana Hook RN Registered Nurse(Responsible S taff) Continued Care and Services Coordination
--- OUTSIDE RECORDS SUMMARY | 2024-12-29 12:07 | XMS_ITS | Encounter Summary ---
Author Organization [facility] Address [address] [facility] 7 [place] [address] Care Team Providers Care Land Appraiser Name Role Phone Ayaka Salgado MD Primary Care Provider [phone] Reason for Visit * Reason Onset Date Comments Med Refill 09/06/2024 Encounter Details Date Type Department Care Team ([facility] st Contact Info) Description 09/06/2024 Telephone [facility] MEDICINE [address] [place] [address] Ayaka Salgado MD [address] [facility] [place] [id number] Med Refill Social History Tobacco Use Types [...] 8:56 AM EST Medication was sent to [facility] #[id number] on 08/09/24 with 3 refills. * Telephone Encounter - Cleopatra Ortiz - 09/06/2024 8:53 AM EST TC from pt requesting medication refill. Medications needing refill : labetalol (Normodyne) 200 MG tablet To be sent to: [id number] - [place] - [address] [facility] documented in this encounter Plan of Treatment Upcoming Encounters Date Type Department Care Team ([facility] st Contact Info) Description 02/01/2025 9:00 AM EDT Clinical Support [facility] MED & PEDS 505 [facility] [place] [id number] Alana Hook, RN [address] [facility] [place] [id number] 02/22/2025 1:45 PM EDT Office Visit [facility] MED & PEDS [address] [place] [address] Ayaka Salgado MD [address] [place] [address] documented as of this encounter Visit Diagnoses Not on filedocumented in this encounter Additional Health Concerns Assessment Noted Time PHQ-9 Depression Total Score: 7 08/29/20 22 10:26 AM EST documented as of this encounter Care Teams Land Appraiser Relationship Specialty Start Date End Date Ayaka Salgado MD [address] [place] [address] PCP - General Internal Medicine 09/15/18 documented as of this encounter
--- OUTSIDE RECORDS SUMMARY | 2024-12-29 12:07 | XMS_ITS | Encounter Summary ---
Author Organization [facility] [address] [facility] [address] [place] [address] Phone Care Team Providers Care Contact Lens Lathe Operator Name Role Phone Jayme Salgado MD Primary Care Provider [phone] Reason for Visit * Reason Comments Med Refill Encounter Details Date Type Department Care Team (Late st Contact Info) Description 04/28/2023 Refill [facility] [address] [place] [address] [place] [phone] Mumtaz Childress MD [address] [facility] [address] [place] [address] Type 2 diabetes mellitus with [...] (HCC) documented in this encounter Care Teams Contact Lens Lathe Operator Relationship Specialty Start Date End Date Jayme Salgado MD [address] [place] [address] PCP - General 09/25/20 documented as of this encounter
--- OUTSIDE RECORDS SUMMARY | 2024-12-29 12:07 | XMS_ITS | Encounter Summary ---
Author Organization [facility] Address [address] [facility] 7 [place] [address] Care Team Providers Care Gripper Machine Operator Name Role Phone Ayaka Salgado MD Primary Care Provider [phone] Reason for Visit * Reason Onset Date Comments Med Refill 09/29/2024 Encounter Details Date Type Department Care Team (Late st Contact Info) Description 09/29/2024 Refill [facility] MEDICINE [address] [place] [address] Ayaka Salgado MD [address] [facility] [place] [id number] Arthropathy (Primary Dx) Social History Tobacco Use [...] 5-325 MG tablet To be sent to: [facility][id number] [place], [place] - [facility] [address] AT [facility] documented in this encounter Plan of Treatment Upcoming Encounters Date Type Department Care Team ([facility] st Contact Info) Description 02/01/2025 9:00 AM EDT Clinical Support [facility] MED & PEDS [address] [place] [address] Alana Hook RN [address] [place] [address] 02/22/2025 1:45 PM EDT Office Visit [facility] [address] [place] [address] Ayaka Salgado MD [address] [place] [address] documented as of this encounter Visit Diagnoses Diagnosis Arthropathy- Primary Unspecified arthropathy, site unspecified documented in this encounter Additional Health Concerns Assessment Noted Time PHQ-9 Depression Total Score: 7 08/29/20 22 10:26 AM EST documented as of this encounter Care Teams Gripper Machine Operator Relationship Specialty Start Date End Date Ayaka Salgado MD [address] [place] [address] PCP - General Internal Medicine 09/15/18 documented as of this encounter
--- OUTSIDE RECORDS SUMMARY | 2024-12-29 12:07 | XMS_ITS | Encounter Summary ---
Author Organization [facility] Address [address] [facility] [address]t [place] [address] Care Team Providers Care End Matcher Name Role Phone Ayaka Salgado MD Primary Care Provider [phone] Encounter Details Date Type Department Care Team ([facility] st Contact Info) Description 09/22/2023 Orders Only [facility] & PEDS [address] [place] [address] Ayaka Salgado MD [address] [place] [address] Simple chronic bronchitis (CMS/HCC) (Primary Dx) Social [...] Care Team (Late st Contact Info) Description 02/01/2025 9:00 AM EDT Clinical Support [facility] MED & PEDS [address] [place] [address] Alana Hook, RACHELLE [address] [place] [address] 02/22/2025 1:45 PM EDT Office Visit [facility] MED & PEDS [address] [place] [address] Ayaka Salgado MD [address] [place] [address] documented as of this encounter Visit Diagnoses Diagnosis Simple chronic bronchitis (CMS/HCC)- Primary Simple chronic bronchitis documented in this encounter Additional Health Concerns Assessment Noted Time PHQ-9 Depression Total Score: 7 08/29/20 22 10:26 AM EST documented as of this encounter Care Teams End Matcher Relationship Specialty Start Date End Date Ayaka Salgado MD [address] [place] [address] PCP - General Internal Medicine 09/15/18 documented as of this encounter
--- OUTSIDE RECORDS SUMMARY | 2024-12-29 12:07 | XMS_ITS | Clinical Summary ---
Author Organization [employer] Address [address] [place] [address] [address] [place] [address] Care Team Providers Care [employer] Glazier Name Role Phone Ayaka Salgado MD Primary Care Provider [phone] Allergies Active Allergy Reactions Criticality Noted Date [...] TWICE DAILY DIRECTED 200 each 11 Active triamcinolone (Kenalog) 0.1 % creamIndications: Chronic [...] THE MORNING 30 tablet 11 024 Active zolpidem (Ambien) 10 MG tabletIndications :Primary osteoarthritis involving multiple joints TAKE 1 TABLET BY MOUTH AT BEDTIME NEEDED FOR SLEEP 30 tablet 025 Active zolpidem (Ambien) 10 MG tabletIndications :Primary osteoarthritis involving multiple joints TAKE 1 TABLET BY MOUTH AT BEDTIME NEEDED FOR SLEEP 30 tablet 02/11/2 025 Active guaiFENesin (Mucinex) 600 MG 12 hr tablet Take 2 tablets (1,200 mg) by mouth 2 times daily. Do not crush, chew, or split. 120 tablet 025 2025 Active Umeclidinium [place] (Incruse Ellipta) 62.5 MCG/ACT aerosol powderIndications :Chronic obstructive pulmonary disease, unspecified COPD type (CMS/HCC) Inhale 1 Act (62.5 mcg) Once per day AND 1 Act (62.5 mcg) Once per day. 30 each Active melatonin 5 MG tabletIndications :Primary insomnia 1 tab of 5 mg at bedtime 30 tablet Active labetalol (Normodyne) 200 MG tablet TAKE 2 TABLETS BY MOUTH EVERY 12 HOURS 120 tablet Active oxyCODONE-acetami nophen (Percocet) 5-325 MG tabletIndications :Arthropathy Take 1 tablet by mouth every 6 (six) hours if needed for severe pain. 42 tablet Active zolpidem (Ambien) 10 MG tabletIndications :Primary insomnia Take 1 tablet (10 mg) by mouth if needed at bedtime for sleep. 30 tablet 025 2024 Active simvastatin (Zocor) 20 MG tablet Take 1 tablet (20 mg) by mouth at bedtime. 90 tablet Active simvastatin (Zocor) 20 MG tablet TAKE 1 TABLET(20 MG) BY MOUTH AT BEDTIME 90 tablet 025 2024 Discontinued(R eorder (will not trigger notification to Pharmacy)) oxyCODONE-acetami nophen (Percocet) 5-325 MG tabletIndications :Arthropathy Take 1 tablet by mouth every 6 (six) hours if needed for severe pain. 42 tablet 025 2024 Discontinued(R eorder (will not trigger notification to Pharmacy)) oxyCODONE-acetami nophen (Percocet) 5-325 MG tabletIndications :Primary osteoarthritis of both knees Take 1 tablet by mouth every 6 (six) hours if needed for severe pain for up to 11 days. 42 tablet 025 2024 zolpidem (Ambien) 10 MG tabletIndications :Primary insomnia Take 1 tablet (10 mg) by mouth if needed at bedtime for sleep. 30 tablet 025 2024 Discontinued(R eorder (will not trigger notification to Pharmacy)) Active Problems Problem Noted Date Diagnosed Date [facility] (current) use of opiate analgesic 11/13 Pruritus 07/12/2024 Congestive heart failure 09/24/2022 Acute [...] Encounters Date Type Department Care Team Description 12/28/2024 Refill [facility] MEDICINE [address] [place] [address] Ayaka Salgado MD 12/24/2024 Refill [facility] MEDICINE [address] [place] [address] Ayaka Salgado MD Primary insomnia 12/15/2024 Refill [facility] & PEDS [address] [place] [address] Ayaka Salgado MD Arthropathy 12/07/2024 Orders Only GENERIC EXTERNAL DATA DEPARTMENT Provider, Generic External Data 11/27/2024 Refill [facility]S [address] [facility] [place] [address] Ayaka Salgado MD 11/24/2024 9:00 AM EDT Clinical Support [facility] [address] [place] [address] Alana Hook RN Back pain, unspecified back location, unspecified back pain laterality, unspecified chronicity (Primary Dx); [facility] (current) use of opiate analgesic 11/24/2024 Refill [facility] MED & PEDS [address] [place] [address] Alana Hook RN Primary osteoarthritis of both knees (Primary Dx); Primary insomnia 11/24/2024 Travel 11/23/2024 Orders Only [facility] External Provider, [facility] 11/22/2024 11:00 AM EDT Office Visit [facility] MED & PEDS [address] [place] [address] Ayaka Salgado MD Chronic obstructive pulmonary disease, unspecified COPD type (CMS/HCC) (Primary Dx); BOWMAN (dyspnea on exertion); 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); Primary insomnia 11/22/2024 Travel 11/03/2024 Refill [facility] MEDICINE [address] [place] [address] Ayaka Salgado MD Arthropathy 10/26/2024 Refill [facility] MEDICINE [address] [place] [address] Ayaka Salgado MD Primary osteoarthritis involving multiple joints 10/19/2024 Refill [facility] MEDICINE [address] [place] [address] Ayaka Salgado MD Arthropathy from Last 3 Months Immunizations Name Administration [...] Description 02/01/2025 9:00 AM EDT Clinical Support [facility] MED & PEDS [address] [place] [address] Alana Hook RN [address] [place] [address] 02/22/2025 1:45 PM EDT Office Visit [facility] MED [facility] PEDS [address] [place] [address] Ayaka Salgado MD [address] [place] [address] Health Maintenance Due Date Last Done Comments [...] Eye Exam 05/04/2025 05/04/2024, 05/29/2023 Depression Monitoring 05/25/2025 11/22/2024, 025 Diabetes: Hemoglobin A1C 05/25/2025 025, 07/12/2024, 10/01/2023, Additional history exists Pneumococcal Vaccine: 50+ Years (1 of 2 - PCV) 07/12/2025 Postponed from 1976 (Patient Refused) Alcohol/Substance Use Screening 11/22/2025 11/22/2024 Depression Screening 11/22/2025 11/22/2024, 11/23/19 SDOH Screening 11/22/2025 11/22/2024 Tobacco Screening 11/22/2025 [...] Procedure Name Priority Date/Time Associated Diagnosis Comments ABO GROUP AND RH TYPE Routine 12/07/2024 10:29 AM EDT POCT VESNA-14 URINE DRUG SCREEN Routine 11/24/2024 9:21 AM EDT 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 Back pain, unspecified back location, unspecified back pain laterality, unspecified chronicity CT ABDOMEN PELVIS WO CONTRAST Routine 11/23/2024 7:16 AM EDT POCT GLYCATED HEMOGLOBIN, TOTAL Routine 11/22/2024 11:52 [...] Recently Relevant to Health Maintenance Results * ABO Group And RH Type (12/07/2024 10:29 AM EDT) Blood Type OP [facility] 12/07/2024 10:2 9 AM EDT 12/07/2024 2:21 PM EDT us Generic External Data Provider LAB BLOOD BANK TE ST ORDERABLES Final Result [facility] [address] [place] [phone] * POCT VESNA-14 Urine Drug Screen (11/24/2024 9:21 AM EDT) Pathologist [facility] Oxycodone Screen, Urine Positive Urine Urine specimen obtained by clean catch procedure / Unknown 11/24/2024 9:21 AM EDT Narrative Alana Hook RN - 11/24/2024 9:21 AM EDT Lot# [id number] Exp: 05-04-26 us Ayaka Salgado MD POINT OF CARE TEST ENTER/ED IT ORDERABLES Final Result * CT Abdomen Pelvis w/o Contrast (11/23/2024 7:16 AM EDT) Anatomical Region Laterality Modality Body, Pelvis, Abdomen Computed T omography 11/23/2024 7:16 AM EDT Narrative 11/23/2024 1:44 PM EDT ? [facility] ?[address] ?[place] [address] ? CT Scan Report ? Signed ? Patient: Snyder Saldivar,Lewis ?MR#: [id number] ?? [id number] ? : 1955 ?Acct:[id number] ? Age/Sex: 68 / M ?ADM Date: //25 ? Loc: HO.CT ? Attending Dr: Joey Duarte MD ? Ordering Physician: Joey Duarte MD ?? Date of Service: 11/23/24 ?? Procedure(s): CT abdomen pelvis wo IV con ?? Accession Number(s): [id number] ? cc: Ayaka Salgado MD; Joey Duarte MD ? Report Number: ?? [id number]: Total DLP = ??562.00 mGy-cm ?? EXAMINATION: ?? CT ABDOMEN AND PELVIS WITHOUT CONTRAST ? CLINICAL INFORMATION: ?? Pretransplant evaluation for end-stage renal disease. ? COMPARISON: ?? No prior CT. ? TECHNIQUE: ?? Multidetector volumetric imaging was performed from the superior aspect ?? of the liver through the pubic symphysis. Sagittal and coronal ?? reformatted images were obtained on the technologist's workstation. ? This CT examination was performed using dose optimization techniques as ?? appropriate, variously including the following: ?? *Automated exposure control ?? *Adjustment of mA and/or kV according to patient size (this includes ?? techniques or standardized protocols for targeted exams where dose is ?? matched to indication/reason for exam; i.e. extremities or head) ?? *Use of iterative reconstruction technique ? FINDINGS: ?? LUNG BASES: There is mild to moderate cardiac enlargement. There is no ?? pericardial effusion. ?? The distal esophagus and GE junction appear normal. ?? Imaged lung bases demonstrate mild mosaic attenuation and mild linear ?? scarring. There is a calcified granuloma abutting the left ?? hemidiaphragm. ? LIVER, GALLBLADDER, AND BILIARY TREE: The unenhanced liver is mildly ?? enlarged, with right lobe craniocaudad diameter of 22.5 cm. It is ?? normal in attenuation without discrete abnormality. There are findings ?? suggesting possible early cirrhosis with mild macro lobular irregular ?? contour. No intrahepatic or extra hepatic biliary dilatation. ?? Gallbladder demonstrates a small calcification in the anterior wall ?? with associated mild focal wall thickening, findings suggestive of ?? adenomyomatosis. Gallbladder is otherwise normal. ? PANCREAS: Unremarkable. ? SPLEEN: Unremarkable. ? ADRENAL GLANDS: Mild bilateral hyperplasia. ? KIDNEYS AND URETERS: ?? Both kidneys are moderately atrophic. There is prominent perirenal ?? stranding left greater than right. There are no renal masses allowing ?? for unenhanced technique. There are bilateral small renal cysts, the ?? largest in the right upper pole measuring 3.5 cm in diameter. No ?? definite renal calculi. There is no hydronephrosis or hydroureter. ? BLADDER: Unremarkable. ? GASTROINTESTINAL TRACT: The small and large bowel are unremarkable. The ?? appendix is unremarkable. ? ABDOMINAL WALL: ?? There is a fat-containing left inguinal hernia. ? LYMPH NODES: None enlarged by size criteria. ?? Increased number of small lymph nodes in the retroperitoneum abutting ?? the aorta, presumably reactive. ? VASCULAR: ?? There is extensive aortic and iliac artery atheromatous calcification, ?? with mild ectasia however there is no aneurysm present. ? PELVIC VISCERA: Mild prostate enlargement, with mild protrusion of the ?? median lobe into the bladder base. Estimated diameter is 4.6 cm. ? OSSEOUS STRUCTURES: ?? No suspicious lytic or blastic bone lesion evident. There are spinal ?? degenerative changes, and bilateral mild hip joint degenerative ?? changes. There is an enostosis within the left intertrochanter. ? CT/CT abdomen pelvis wo IV con ?? IMPRESSION: ?? 1. Mild hepatomegaly with changes likely related to early cirrhosis. ?? 2. Probable adenomyomatosis of the gallbladder. ?? 3. Bilateral renal atrophy with small renal cysts. No hydronephrosis or ?? calculi. Prominent perirenal stranding left greater than right, ?? nonspecific. ?? 4. Increased number of small lymph nodes in the retroperitoneum ?? abutting the aorta, nonspecific but presumably reactive. ?? 5. Advanced atheromatous calcification and ectasia of the aorta and ?? iliac arteries. No discrete aneurysm. ?? 6. Mild to moderate cardiac enlargement. Mosaic attenuation of the ?? imaged lungs, likely air trapping. Other etiologies not excluded. ?? 7. Additional ancillary findings as discussed in the body of the report. ? Electronically signed by: ??Hugh Card MD ??11/23/2024 01:33 PM EDT RP ? Dictated By: ?Hugh Card MD ? Signed By: ?<Electronically signed by Hugh Card MD in OV> ?11/23/24 1333 ? DD/ 0716 ? TD/TT: 11/23/24 0749 ? Nuclear Engineer: ? Procedure Note Donotuseinterpreter, Image - 11/23/[address] [address] [address] Scan Report Signed Patient: Jose R Garrison#: [id number] : 8Acct:[id number] Age/Sex: 68 / MADM Date: 11/23/24 Loc: HO.CT Attending Dr: Joey Duarte MD Ordering Physician: Joey Duarte MD Date of Service: 11/23/24 Procedure(s): CT abdomen pelvis wo IV con Accession Number(s): [id number] cc: Ayaka Salgado MD; Joey Duarte MD Report Number: [id number]: Total DLP = 562.00 mGy-cm EXAMINATION: CT ABDOMEN AND PELVIS WITHOUT CONTRAST CLINICAL INFORMATION: Pretransplant evaluation for end-stage renal disease. COMPARISON: No prior CT. TECHNIQUE: Multidetector volumetric imaging was performed from the superior aspect of the liver through the pubic symphysis. Sagittal and coronal reformatted images were obtained on the technologist's workstation. This CT examination was performed using dose optimization techniques as appropriate, variously including the following: *Automated exposure control *Adjustment of mA and/or kV according to patient size (this includes techniques or standardized protocols for targeted exams where dose is matched to indication/reason for exam; i.e. extremities or head) *Use of iterative reconstruction technique FINDINGS: LUNG BASES: There is mild to moderate cardiac enlargement. There is no pericardial effusion. The distal esophagus and GE junction appear normal. Imaged lung bases demonstrate mild mosaic attenuation and mild linear scarring. There is a calcified granuloma abutting the left hemidiaphragm. LIVER, GALLBLADDER, AND BILIARY TREE: The unenhanced liver is mildly enlarged, with right lobe craniocaudad diameter of 22.5 cm. It is normal in attenuation without discrete abnormality. There are findings suggesting possible early cirrhosis with mild macro lobular irregular contour. No intrahepatic or extra hepatic biliary dilatation. Gallbladder demonstrates a small calcification in the anterior wall with associated mild focal wall thickening, findings suggestive of adenomyomatosis. Gallbladder is otherwise normal. PANCREAS: Unremarkable. SPLEEN: Unremarkable. ADRENAL GLANDS: Mild bilateral hyperplasia. KIDNEYS AND URETERS: Both kidneys are moderately atrophic. There is prominent perirenal stranding left greater than right. There are no renal masses allowing for unenhanced technique. There are bilateral small renal cysts, the largest in the right upper pole measuring 3.5 cm in diameter. No definite renal calculi. There is no hydronephrosis or hydroureter. BLADDER: Unremarkable. GASTROINTESTINAL TRACT: The small and large bowel are unremarkable. The appendix is unremarkable. ABDOMINAL WALL: There is a fat-containing left inguinal hernia. LYMPH NODES: None enlarged by size criteria. Increased number of small lymph nodes in the retroperitoneum abutting the aorta, presumably reactive. VASCULAR: There is extensive aortic and iliac artery atheromatous calcification, with mild ectasia however there is no aneurysm present. PELVIC VISCERA: Mild prostate enlargement, with mild protrusion of the median lobe into the bladder base. Estimated diameter is 4.6 cm. OSSEOUS STRUCTURES: No suspicious lytic or blastic bone lesion evident. There are spinal degenerative changes, and bilateral mild hip joint degenerative changes. There is an enostosis within the left intertrochanter. CT/CT abdomen pelvis wo IV con IMPRESSION: 1. Mild hepatomegaly with changes likely related to early cirrhosis. 2. Probable adenomyomatosis of the gallbladder. 3. Bilateral renal atrophy with small renal cysts. No hydronephrosis or calculi. Prominent perirenal stranding left greater than right, nonspecific. 4. Increased number of small lymph nodes in the retroperitoneum abutting the aorta, nonspecific but presumably reactive. 5. Advanced atheromatous calcification and ectasia of the aorta and iliac arteries. No discrete aneurysm. 6. Mild to moderate cardiac enlargement. Mosaic attenuation of the imaged lungs, likely air trapping. Other etiologies not excluded. 7. Additional ancillary findings as discussed in the body of the report. Electronically signed by: Hugh Card MD 11/23/2024 01:33 PM EDT Dictated By: Hugh Card MD Signed By: <Electronically signed by Hugh Card MD in OV> 11/23/24 1333 DD/ 0716 TD/TT: 11/23/24 0749 Nuclear Engineer: [facility] External Provider IMG CT PROCEDURES Final Result * POCT HGB A1C (11/22/2024 11:52 AM [...] 9:08 AM EST) Triglycerides 55 <150 mg/dL [facility] Comment:Desirable Triglyceri de: less than 150 mg/dLBorderline High Triglyceride 150-199 mg/dLHigh Triglyceride: 200-499 mg/dLVery High Triglyceride: greater than or equal to 5OO mg/dL Cholesterol 101 <200 mg/dL [facility] Comment:Desirable Cholestero l: less than 200 mg/dLBorderline High Cholesterol: 200-239 mg/dLHigh Cholesterol: greater than 239 mg/dL LDL Cholesterol Calculated 57 <100 mg/dL [facility] Comment:Desirable LDL: less than 100 mg/dLNear Optimal/Above Optimal LDL: 110- 129 mg/dLBorderline High LDL: 130-159 mg/dLHigh LDL: 160-189 mg/dLVery High LDL: greater than or equal to 190 mg/dL HDL Cholesterol 33(L) >40 mg/dL [facility] Comment:Desirable HDL: great er than 40 mg/dL Note: This HDL assay may give artificially low results in patients with liver disease. Blood Venous blood specimen / Unknown 11/12/2023 9:08 AM EST 11/12/2023 2:41 PM EST Ayaka Salgado MD LAB BLOOD ORDERABLES Final Result [facility] [address] [place] [phone] [phone] from Last 3 Months or Most Recently Relevant to Health Maintenance Insurance [facility] MEDIC[facility] ADVANTAGE HMO Care Teams [employer] Relationship Specialty Start Date End Date Ayaka Salgado MD [address] [place] [address] [place] [id number] PCP - General Internal Medicine 09/15/18
--- OUTSIDE RECORDS SUMMARY | 2024-12-29 12:07 | XMS_ITS | Encounter Summary ---
Author Organization [employer] [facility] Address [address] 7 [place] [address] Care Team Providers Care Weight Reducing Technician Name Role Phone Ayaka Salgado MD Primary Care Provider [phone] Reason for Visit * Reason Onset Date Comments r/s appt 08/23/2022 Encounter Details Date Type Department Care Team (Late st Contact Info) Description 08/23/2022 Telephone [facility] MEDICINE [address] [place] [address] Ayaka Salgado MD [address] [facility] [place] [id number] r/s appt Social History Tobacco Use Types [...] appt has been canceled. Please contact at [phone] documented in this encounter Plan of Treatment Upcoming Encounters Date Type Department Care Team (Late Contact Info) Description 02/01/2025 9:00 AM EDT Clinical Support [facility] MED [facility] PEDS [address] [place] [address] Alana Hook, RN [address] [place] [address] 02/22/2025 1:45 PM EDT Office Visit [facility] [address] [place] [address] Ayaka Salgado MD [address] [place] [address] documented as of this encounter Visit Diagnoses Not on filedocumented in this encounter Care Teams Weight Reducing Technician Relationship Specialty Start Date End Date Ayaka Salgado MD [address] [place] [address] PCP - General Internal Medicine 09/15/18 documented as of this encounter
--- OUTSIDE RECORDS SUMMARY | 2024-12-29 12:07 | XMS_ITS | Clinical Summary ---
Author Organization [facility] Address [address] [place] [address] Care Team Providers Care Insurance Consultant Name Role Phone DamianAyaka Primary Care Provider [...] Department Care Team Description 11/24/2024 Orders Only [facility] Transplant Department [address] [place] [address] Shima Springer RN Pre-transplant evaluation for end stage renal disease (Primary Dx); Chronic kidney disease, stage V 11/23/2024 Telephone [facility] Transplant Department [address] [place] [address] [phone] Shima Springer clother in - Kidney Txp from Last 3 Months Social History Tobacco [...] Info) Description 08/02/2025 8:20 AM EST Follow-Up [facility] Renal Transplant [address] [place] [address] Joey Duarte MD [address] [place] [address] 08/02/2025 9:00 AM EST Social Work [facility] Renal Transplant [address] [place] [address] Susan Babb LICSW [address] [place] [address] Health Maintenance Due Date Last Done Comments 25 Hydroxy / Vitamin D 1957 Cologuard 1957 Colon Cancer Screening 1957 [...] 2017 Abdominal Aortic Aneurysm (AAA) Screening 2022 Basic Metabolic Panel 08/28/2023 05/29/2023 COVID-19 Vaccine (4 - 2023-2 5 season) 2024 08/03/2021, 11/03/2020, 10/06/2020 Alcohol/Substance Use Screening 09/15/2024 Depression Screening and Follow-Up 09/15/2024 Health Care Proxy Review 09/15/2024 Social Drivers of Health Annual Screening 09/15/2024 Hemoglobin A1C 01/26/2025 07/29/2024, 07/12/2024, 10/01/2023 Influenza Vaccine (Season Ended) 2025 Hemoglobin 07/29/2025 07/29/2024 Phosphorus 07/29/2025 07/29/2024 CKD: Referral to Nephrology Completed 07/29/2024 CKD: Referral to Nutrition Completed 07/29/2024 Hepatitis C Screening Completed 07/29/2024 Hepatitis B Vaccines Aged Out No long er eligible based on patient's age to complete this topic Procedures * Due to [place] state law, this organization might not be [...] to Health Maintenance Results * Due to [place] state law, this organization might not be [...] MD LAB BLOOD ORDERABLES María l Result [facility] [address] [place] [address], * Hepatitis C Antibody w/Reflex to PCR (07/29/2024 12:57 PM EST) Hepatitis C Antibody NON-REACT [place]AN[place]ORD NON-REACT ST[place]FORD 07/30/2024 3:[address] [employer] [facility] Comment: HCV antibody was non-reactive. There is no laboratory evidence of HCV infection. In most cases, no further action is required. However, if recent HCV exposure is suspected, a test for HCV RNA (test code 65385) is suggested. For additional information please refer to http://education.Sense.ly/faq/QHC09b0 (This link is being provided for informational/ educational purposes only.) Blood Structure of peripheral vein / Unknown Venipuncture / Unknown 07/29/2024 12:57 PM EST 07/29/2024 1:32 PM EST Narrative [facility] - 07/30/2024 3:03 AM EST [facility] Received Date: Joey Duarte MD LAB BLOOD ORDERABLES María l Result Performing Organization Address City/[facility]/ZIP Co de Phone Number [facility] [address] [facility] [address]rd Floor, [place] [address], [place] [phone] [employer] [facility] [address] [facility] 3rd Floor, [place] [address], [place] [phone] * Phosphorus (07/29/2024 12:57 PM EST) Phosphorus 4.5 2.5 - 4.5 mg/dL 07/29/2024 2:00 PM EST [facility] Blood Structure of peripheral vein / Unknown Venipuncture / Unknown 07/29/2024 12:57 PM EST 07/29/2024 1:29 PM EST Joey Duarte MD LAB BLOOD ORDERABLES María l Result [facility] [address] [place] [address], [place] * (ABNORMAL) Hemoglobin A1c (07/29/2024 12:57 PM EST) Hemoglobin A1C 6.7(H) <5.7 % of total Hgb 07/30/2024 1:59 AM EST [email or web address] Comment: For someone without known diabetes, a [...] (MG/DL) 146 mg/dL 07/30/2024 1:59 AM EST [email or web address] eAG (MMOL/L) 8.1 mmol/L 07/30/2024 1:59 AM EST [email or web address] Blood Structure of peripheral vein / Unknown Venipuncture / Unknown 07/29/2024 12:57 PM EST 07/29/2024 1:32 PM EST Narrative [facility] - 07/30/2024 1:59 AM EST [facility] Received Date: Joey Duarte MD LAB BLOOD ORDERABLES María l Result [facility] [address] [facility] [address]rd [address], [place] [address], [place] [phone] [facility] [address] [facility] 3rd Floor, [place] [address], [place] [phone] from Last 3 Months or Most Recently Relevant to Health Maintenance Insurance [facility] [place] [address] [facility] AARP [facility] [place] [id number] [facility] [place] [address] [facility] [place] [id number] Advance Directives Documents on File Type Date Recorded 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
--- OUTSIDE RECORDS SUMMARY | 2024-12-29 12:07 | XMS_ITS | Encounter Summary ---
Author Organization [employer] Address [address] [facility] 7t [place] [address] Care Team Providers Care Principal Strategist Name Role Phone Ayaka Salgado MD Primary Care Provider [phone] Encounter Details Date Type Department Care Team (Late st Contact Info) Description 10/11/2022 Orders Only [facility] MEDICINE [address] [place] [address] Ayaka Salgado MD [address] [place] [address] Congestive heart failure, unspecified HF chronicity, unspecified [...] Upcoming Encounters Date Type Department Care Team ([facility] st Contact Info) Description 02/01/2025 9:00 AM EDT Clinical Support [facility]ED[facility] [address] [place] [address] Alana Hook, RACHELLE 505 [place] [address] 02/22/2025 1:45 PM EDT Office Visit [facility] [address] [place] [address] Ayaka Salgado MD 505 [place] [address] documented as of this encounter Visit Diagnoses Diagnosis Congestive heart failure, unspecified HF chronicity, unspecified heart failure type (CMS/HCC) Edema of foot Edema documented in this encounter Additional Health Concerns Assessment Noted Time PHQ-9 Depression Total Score: 7 08/29/20 22 10:26 AM EST documented as of this encounter Care Teams Principal Strategist Relationship Specialty Start Date End Date Ayaka Salgado MD [address] [place] [address] PCP - General Internal Medicine 09/15/18 documented as of this encounter
--- OUTSIDE RECORDS SUMMARY | 2024-12-29 12:07 | XMS_ITS | Encounter Summary ---
Author Organization [employer] Address [address] [facility] 7t [place] [address] Care Team Providers Care Integrated Circuit Ic Layout Designer Name Role Phone Ayaka Salgado MD Primary Care Provider [phone] Encounter Details Date Type Department Care Team ([facility] st Contact Info) Description 05/26/[address] [facility] MED & PEDS [address] [place] [address] Ayaka Salgado MD [address] [place] [address] Simple chronic bronchitis (CMS/HCC) (Primary Dx) Social [...] [facility] MED [facility] PEDS [address] [place] [address] Alana Hook, RACHELLE [address] [place] [address] 02/22/2025 1:45 PM EDT Office Visit [facility] MED & PEDS [address] [place] [address] Ayaka Salgado MD 505 [place] [address] documented as of this encounter Visit Diagnoses Diagnosis Simple chronic bronchitis (CMS/HCC)- Primary Simple chronic bronchitis documented in this encounter Additional Health Concerns Assessment Noted Time PHQ-9 Depression Total Score: 7 08/29/20 22 10:26 AM EST documented as of this encounter Care Teams Integrated Circuit Ic Layout Designer Relationship Specialty Start Date End Date Ayaka Salgado MD [address] [place] [address] PCP - General Internal Medicine 09/15/18 documented as of this encounter
--- OUTSIDE RECORDS SUMMARY | 2024-12-29 12:07 | XMS_ITS | Encounter Summary ---
Author Organization [employer] Address [address] [facility] 7 [place] [address] Care Team Providers Care Import/Export Specialist Name Role Phone Ayaka Salgado MD Primary Care Provider [phone] Reason for Visit * Reason Onset Date Comments Med Refill 12/01/2023 Encounter Details Date Type Department Care Team ([facility] st Contact Info) Description 12/01/2023 Telephone [facility] MEDICINE [address] [place] [address] Ayaka Salgado MD [address] [facility] [place] [address] Med Refill Social History Tobacco Use Types [...] 10 MG tablet To be sent to: [id number] - [place] - [address] [facility] documented in this encounter Plan of Treatment Upcoming Encounters Date Type Department Care Team ([facility] st Contact Info) Description 02/01/2025 9:00 AM EDT Clinical Support [facility] MED & PEDS [address] [place] [address] Alana Hook RN 505 [place] [address] 02/22/2025 1:45 PM EDT Office Visit [facility] MED & PEDS 505 [place] [address] Ayaka Salgado MD 505 [place] [address] documented as of this encounter Visit Diagnoses Not on filedocumented in this encounter Additional Health Concerns Assessment Noted Time PHQ-9 Depression Total Score: 7 08/29/20 22 10:26 AM EST documented as of this encounter Care Teams Import/Export Specialist Relationship Specialty Start Date End Date Ayaka Salgado MD [address] [place] [address] PCP - General Internal Medicine 09/15/18 documented as of this encounter
--- OUTSIDE RECORDS SUMMARY | 2024-12-29 12:07 | XMS_ITS | Encounter Summary ---
Author Organization [employer] Address [address] [facility] 7t [place] [address] Care Team Providers Care Reproduction Technician Name Role Phone Ayaka Salgado MD Primary Care Provider [phone] Reason for Visit * Reason Comments Med Refill Encounter Details Date Type Department Care Team (Late st Contact Info) Description 03/02/2024 Refill [facility] MEDICINE [address] [place] [address] Ayaka Salgado MD [address] [place] [address] Primary osteoarthritis involving multiple joints Social History [...] Description 02/01/2025 9:00 AM EDT Clinical Support [facility] MED & PEDS [address] [place] [address] Alana Hook, RACHELLE 505 [place] [address] 02/22/2025 1:45 PM EDT Office Visit [facility] MED & PEDS [address] [place] [address] Ayaka Salgado MD [address] [place] [address] documented as of this encounter Visit Diagnoses Diagnosis Primary osteoarthritis involving multiple joints documented in this encounter Additional Health Concerns Assessment Noted Time PHQ-9 Depression Total Score: 7 08/29/20 22 10:26 AM EST documented as of this encounter Care Teams Reproduction Technician Relationship Specialty Start Date End Date Ayaka Salgado MD [address] [place] [address] PCP - General Internal Medicine 09/15/18 documented as of this encounter
--- OUTSIDE RECORDS SUMMARY | 2024-12-29 12:07 | XMS_ITS | Encounter Summary ---
Author Organization [employer] Address [address] [place] [address] 7 [place] [address] Care Team Providers Care Screwdown Operator Name Role Phone Ayaka Salgado MD Primary Care Provider [phone] Reason for Visit * Reason Comments Med Refill Encounter Details Date Type Department Care Team ([facility] Contact Info) Description 07/28/2023 Refill [facility] CHC MED & PEDS [address] [place] [address] Ayaka Salgado MD [address] [place] [address] Social History Tobacco Use Types Packs/Day Years [...] 02/01/2025 9:00 AM EDT Clinical Support [facility] MED & PEDS [address] [place] [address] Alana Hook, RACHELLE 505 [place] [address] 02/22/2025 1:45 PM EDT Office Visit [facility] MED [facility] PEDS [address] [place] [address] Ayaka Salgado MD 505 [place] [address] documented as of this encounter Visit Diagnoses Not on filedocumented in this encounter Additional Health Concerns Assessment Noted Time PHQ-9 Depression Total Score: 7 08/29/20 22 10:26 AM EST documented as of this encounter Care Teams Screwdown Operator Relationship Specialty Start Date End Date Ayaka Salgado MD [address] [place] [address] PCP - General Internal Medicine 09/15/18 documented as of this encounter
--- OUTSIDE RECORDS SUMMARY | 2024-12-29 12:07 | XMS_ITS | Encounter Summary ---
Author Organization [employer] Address [address] [place] [address] 7 [place] [address] Care Team Providers Care Soil Science Teacher Name Role Phone Ayaka Salgado MD Primary Care Provider [phone] Reason for Visit * Reason Comments Med Refill Encounter Details Date Type Department Care Team ([facility] st Contact Info) Description 01/06/2023 Refill [facility] MED & PEDS [address] [place] [address] Ayaka Salgado MD [address] [place] [address] Primary osteoarthritis involving multiple joints Social History [...] Upcoming Encounters Date Type Department Care Team ([facility] st Contact Info) Description 02/01/2025 9:00 AM EDT Clinical Support [facility] MED & PEDS [address] [place] [address] Alana Hook RN 505 [place] [address] 02/22/2025 1:45 PM EDT Office Visit [facility] MED & PEDS 505 [place] [address] Ayaka Salgado MD [address] [place] [address] documented as of this encounter Visit Diagnoses Diagnosis Primary osteoarthritis involving multiple joints documented in this encounter Additional Health Concerns Assessment Noted Time PHQ-9 Depression Total Score: 7 08/29/20 22 10:26 AM EST documented as of this encounter Care Teams Soil Science Teacher Relationship Specialty Start Date End Date Ayaka Salgado MD [address] [place] [address] PCP - General Internal Medicine 09/15/18 documented as of this encounter
--- OUTSIDE RECORDS SUMMARY | 2024-12-29 12:07 | XMS_ITS | Encounter Summary ---
Author Organization [employer] Address [address] [facility] 7t [place] [address] Care Team Providers Care Roller Name Role Phone Ayaka Salgado MD Primary Care Provider [phone] Reason for Visit * Reason Comments Med Refill Encounter Details Date Type Department Care Team ([facility] st Contact Info) Description 06/15/2024 Refill [facility] MEDICINE [address] [place], [place] [id number] Lev Gentile MD [address] [place] [address] Chronic pruritus Social History Tobacco Use Types [...] Description 02/01/2025 9:00 AM EDT Clinical Support [facility] MED & PEDS [address] [place] [address] Alana Hook, RACHELLE 505 [place] [address] 02/22/2025 1:45 PM EDT Office Visit [facility] MED & PEDS 505 [place] [address] Ayaka Salgado MD 505 [place] [address] documented as of this encounter Visit Diagnoses Diagnosis Chronic pruritus documented in this encounter Additional Health Concerns Assessment Noted Time PHQ-9 Depression Total Score: 7 08/29/20 22 10:26 AM EST documented as of this encounter Care Teams Roller Relationship Specialty Start Date End Date Ayaka Salgado MD [address] [place] [address] PCP - General Internal Medicine 09/15/18 documented as of this encounter
--- OUTSIDE RECORDS SUMMARY | 2024-12-29 12:07 | XMS_ITS | Encounter Summary ---
Author Organization [employer] Address [address] [facility] 7 [place] [address] Care Team Providers Care Retail Sales Associate Seasonal Name Role Phone Ayaka Salgado MD Primary Care Provider [phone] Reason for Visit * Reason Onset Date Comments Med Refill 05/11/2024 Encounter Details Date Type Department Care Team ([facility] st Contact Info) Description 05/11/2024 Telephone [facility] MEDICINE [address] [place] [address] Ayaka Salgado MD 505 [facility] [place] [address] Med Refill Social History Tobacco Use Types [...] 5-325 MG tablet To be sent to: [facility] documented in this encounter Plan of Treatment Upcoming Encounters Date Type Department Care Team ([facility] st Contact Info) Description 02/01/2025 9:00 AM EDT Clinical Support [facility]ED[facility] [address] [place] [address] Alana Hook RN 505 [place] [address] 02/22/2025 1:45 PM EDT Office Visit [facility] [address] [place] [address] Ayaka Salgado MD 505 [place] [address] documented as of this encounter Visit Diagnoses Not on filedocumented in this encounter Additional Health Concerns Assessment Noted Time PHQ-9 Depression Total Score: 7 08/29/20 22 10:26 AM EST documented as of this encounter Care Teams Retail Sales Associate Seasonal Relationship Specialty Start Date End Date Ayaka Salgado MD [address] [place] [address] PCP - General Internal Medicine 09/15/18 documented as of this encounter
--- OUTSIDE RECORDS SUMMARY | 2024-12-29 12:07 | XMS_ITS | Encounter Summary ---
Author Organization [employer] Address [address] [facility] 7t [place] [address] Care Team Providers Care Funeral Arranger Name Role Phone Ayaka Salgado MD Primary Care Provider [phone] Encounter Details Date Type Department Care Team ([facility] st Contact Info) Description 08/18/2024 Telephone [facility] MEDICINE [address] [place] [address] Ayaka Salgado MD [address] [place] [address] Social History Tobacco Use Types Packs/Day Years [...] [facility] MED [facility] PED[facility] [address] [place] [address] Alana Hook RN 505 [place] [address] 02/22/2025 1:45 PM EDT Office Visit [facility] MED & PEDS [address] [place] [address] Ayaka Salgado MD 505 [place] [address] documented as of this encounter Visit Diagnoses Not on filedocumented in this encounter Additional Health Concerns Assessment Noted Time PHQ-9 Depression Total Score: 7 08/29/20 22 10:26 AM EST documented as of this encounter Care Teams Funeral Arranger Relationship Specialty Start Date End Date Ayaka Salgado MD [address] [place] [address] PCP - General Internal Medicine 09/15/18 documented as of this encounter
--- OUTSIDE RECORDS SUMMARY | 2024-12-29 12:07 | XMS_ITS | Clinical Summary ---
Author Organization [facility] Address [address] [place] [address] [place] [address] Phone Care Team Providers Care Ice Seller Name Role Phone Jayme Salgado MD Primary Care Provider [phone] Allergies Active Allergy Reactions Criticality Noted Date [...] Acute bronchitis 11/14/2011 Pure hypercholesterolemia 06/06/2011 Immunizations Immunization Administration Dates Next Due Moderna SARS-COV-2 10/06/2020 [...] Due Date Last Done Comments Pneumococcal Vaccine: 50+ Years (1 of 2 - PCV) 1976 Colorectal Cancer Screening: Annual FOBT 2006 Colorectal Cancer Screening: Colonoscopy 2006 Colorectal Cancer Screening: Sigmoidoscopy 2006 Diabetes: Ophthalmology Exam 10/16/2020 Diabetes: Pedal Pulse Checked 10/16/2020 Diabetes: Sensory Foot Exam 10/16/2020 Diabetes: Visual Foot Exam 10/16/2020 Diabetes: Hemoglobin A1C 05/27/2023 023, 10/10/2022, 09/24/2022 Influenza Vaccine (Season Ended) 2025 Hepatitis B Vaccine Aged Out No longe r eligible based on patient's age to complete this topic Insurance [facility] Medicare [facility] Medicare Care Teams Ice Seller Relationship Specialty Start Date End Date Jayme Salgado MD [address] [place], [place] [address]D[place] PCP - General 09/25/20
--- OUTSIDE RECORDS SUMMARY | 2024-12-29 12:07 | XMS_ITS | Encounter Summary ---
Author Organization [employer] Address [address] [place] [address] 7 [place] [address] Care Team Providers Care Torch Straightener Name Role Phone Ayaka Salgado MD Primary Care Provider [phone] Reason for Visit * Reason Onset Date Comments Med Refill 08/05/2024 Encounter Details Date Type Department Care Team ([facility] st Contact Info) Description 08/05/2024 Refill [facility] MED & PEDS [address] [place] [address] Ayaka Salgado MD 505 [place] [address] Back pain, unspecified back location, unspecified back [...] the past 12 months, has t he [employer], gas, oil or water [employer] threatened to shut off services in your [...] 5-325 MG tablet To be sent to: [id number] - [place], [place] - [address] [facility] documented in this encounter Plan of Treatment Upcoming Encounters Date Type Department Care Team (Late st Contact Info) Description 02/01/2025 9:00 AM EDT Clinical Support [facility] MED & PEDS [address] [place] [address] Alana Hook RN 505 [place] [address] 02/22/2025 1:45 PM EDT Office Visit [facility] MED & PEDS [address] [place] [address] Ayaka Salgado MD 505 [place] [address] documented as of this encounter Visit Diagnoses Diagnosis Back pain, unspecified back location, unspecified back pain laterality, unspecified chronicity- Primary documented in this encounter Additional Health Concerns Assessment Noted Time PHQ-9 Depression Total Score: 7 08/29/20 22 10:26 AM EST documented as of this encounter Care Teams Torch Straightener Relationship Specialty Start Date End Date Ayaka Salgado MD 505 [place] [address] PCP - General Internal Medicine 09/15/18 documented as of this encounter
--- OUTSIDE RECORDS SUMMARY | 2024-12-29 12:07 | XMS_ITS | Encounter Summary ---
Author Organization [employer] Address [address] [facility] 7 [place] [address] Care Team Providers Care Teleprinter Installer Name Role Phone Ayaka Salgado MD Primary Care Provider [phone] Reason for Visit * Reason Onset Date Comments Med Refill 07/28/2023 Encounter Details Date Type Department Care Team ([facility] Contact Info) Description 07/28/2023 Telephone [facility] CHC MED & PEDS [address] [place] [address] Ayaka Salgado MD 505 [place] [address] Med Refill Social History Tobacco Use Types [...] (Percocet) 5-325 MG tablet Please sent to [id number] - [place] - [address] [facility] documented in this encounter Plan of Treatment Upcoming Encounters Date Type Department Care Team ([facility] st Contact Info) Description 02/01/2025 9:00 AM EDT Clinical Support [facility] MED & PEDS [address] [place] [address] Alana Hook RN 505 [place] [address] 02/22/2025 1:45 PM EDT Office Visit [facility] MED & PEDS [address] [place] [address] Ayaka Salgado MD 505 [place] [address] documented as of this encounter Visit Diagnoses Not on filedocumented in this encounter Additional Health Concerns Assessment Noted Time PHQ-9 Depression Total Score: 7 08/29/20 22 10:26 AM EST documented as of this encounter Care Teams Teleprinter Installer Relationship Specialty Start Date End Date Ayaka Salgado MD [address] [place] [address] PCP - General Internal Medicine 09/15/18 documented as of this encounter
--- OUTSIDE RECORDS SUMMARY | 2024-12-29 12:07 | XMS_ITS | Encounter Summary ---
Author Organization [employer] Address [address] [place] [address] 7t [place] [address] Care Team Providers Care Clinical Laboratory Science Professor Name Role Phone Ayaka Salgado MD Primary Care Provider [phone] Encounter Details Date Type Department Care Team (Late st Contact Info) Description 02/19/2023 Abstract [facility] [address] [place] [address] Ayaka Salgado MD 505 [place], [place] [id number] Social History Tobacco Use Types Packs/Day Years [...] Description 02/01/2025 9:00 AM EDT Clinical Support [facility] MED & PEDS 505 [place] [address] Alana Hook RN 505 [place] [address] 02/22/2025 1:45 PM EDT Office Visit [facility] MED & PEDS [address] [place] [address] Ayaka Salgado MD 505 [place] [address] documented as of this encounter Visit Diagnoses Not on filedocumented in this encounter Additional Health Concerns Assessment Noted Time PHQ-9 Depression Total Score: 7 08/29/20 22 10:26 AM EST documented as of this encounter Care Teams Clinical Laboratory Science Professor Relationship Specialty Start Date End Date Ayaka Salgado MD 505 [place] [address] PCP - General Internal Medicine 09/15/18 documented as of this encounter
--- OUTSIDE RECORDS SUMMARY | 2024-12-29 12:07 | XMS_ITS | Encounter Summary ---
Author Organization [employer] Address [address] [place] [address] 7t [place] [address] Care Team Providers Care Server Administrator Name Role Phone Ayaka Salgado MD Primary Care Provider [phone] Encounter Details Date Type Department Care Team (Late st Contact Info) Description 01/23/2023 Abstract [facility] 230 [place] [address] Ayaka Salgado MD 505 [place], [place] [phone] Social History Tobacco Use Types Packs/Day Years [...] Description 02/01/2025 9:00 AM EDT Clinical Support [facility] MED & PEDS 505 [place] [address] Alana Hook RN 505 [place] [address] 02/22/2025 1:45 PM EDT Office Visit [facility] MED & PEDS 505 [place] [address] Ayaka Salgado MD 505 [place] [address] documented as of this encounter Visit Diagnoses Not on filedocumented in this encounter Additional Health Concerns Assessment Noted Time PHQ-9 Depression Total Score: 7 08/29/20 22 10:26 AM EST documented as of this encounter Care Teams Server Administrator Relationship Specialty Start Date End Date Ayaka Salgado MD 505 [place] [address] PCP - General Internal Medicine 09/15/18 documented as of this encounter
--- OUTSIDE RECORDS SUMMARY | 2024-12-29 12:07 | XMS_ITS | Encounter Summary ---
Author Organization [employer] Address [address] [facility] 7t [place] [address] Care Team Providers Care Car Seat Maker Name Role Phone Ayaka Salgado MD Primary Care Provider [phone] Encounter Details Date Type Department Care Team ([facility] st Contact Info) Description 08/20/2024 Orders Only [facility] MED & PEDS 505 [place] [address] Ayaka Salgado MD 505 [place] [address] Social History Tobacco Use Types Packs/Day Years [...] [facility] MED & PEDS 505 [place] [address] Alana Hook RN 505 [place] [address] 02/22/2025 1:45 PM EDT Office Visit [facility] MED & PEDS 505 [place] [address] Ayaka Salgado MD 505 [place] [address] documented as of this encounter Visit Diagnoses Not on filedocumented in this encounter Additional Health Concerns Assessment Noted Time PHQ-9 Depression Total Score: 7 08/29/20 22 10:26 AM EST documented as of this encounter Care Teams Car Seat Maker Relationship Specialty Start Date End Date Ayaka Salgado MD 505 [place] [address] PCP - General Internal Medicine 09/15/18 documented as of this encounter
--- OUTSIDE RECORDS SUMMARY | 2024-12-29 12:07 | XMS_ITS | Encounter Summary ---
Author Organization [employer] Address [address] [facility] [address] 7t [place] [address] Care Team Providers Care Personal Support Worker Name Role Phone Ayaka Salgado MD Primary Care Provider [phone] Encounter Details Date Type Department Care Team ([facility] st Contact Info) Description 06/25/2024 Orders Only [facility] CH[facility] MED & PEDS [address] [place] [address] ProviderRan MD Social History Tobacco Use Types [...] Description 02/01/2025 9:00 AM EDT Clinical Support [facility] MED & PEDS 505 [place] [address] Alana Hook RN 505 [place] [address] 02/22/2025 1:45 PM EDT Office Visit [facility] MED & PEDS 505 [place] [address] Ayaka Salgado MD 505 [place] [address] documented as of this encounter Procedures Procedure [...] documented as of this encounter Care Teams Personal Support Worker Relationship Specialty Start Date End Date Ayaka Salgado MD 505 [place] [address] PCP - General Internal Medicine 09/15/18 documented as of this encounter
--- OUTSIDE RECORDS SUMMARY | 2024-12-29 12:07 | XMS_ITS | Encounter Summary ---
Author Organization [employer] Address [address] [facility] 7 [place] [address] Care Team Providers Care Glass Etcher Name Role Phone Ayaka Salgado MD Primary Care Provider [phone] Reason for Visit * Reason Onset Date Comments Med Refill 08/09/2024 Encounter Details Date Type Department Care Team ([facility] st Contact Info) Description 08/09/2024 Telephone [facility] 230 [place] [address] Ayaka Salgado MD 505 [facility] [place] [address] Med Refill Social History Tobacco Use Types [...] 5-325 MG tablet To be sent to: [id number] documented in this encounter Plan of Treatment Upcoming Encounters Date Type Department Care Team ([facility] st Contact Info) Description 02/01/2025 9:00 AM EDT Clinical Support [facility] MED & PEDS 505 [place] [address] Alana Hook RN 505 [place] [address] 02/22/2025 1:45 PM EDT Office Visit [facility] MED & PEDS 505 [place] [address] Ayaka Salgado MD 505 [place] [address] documented as of this encounter Visit Diagnoses Not on filedocumented in this encounter Additional Health Concerns Assessment Noted Time PHQ-9 Depression Total Score: 7 08/29/20 22 10:26 AM EST documented as of this encounter Care Teams Glass Etcher Relationship Specialty Start Date End Date Ayaka Salgado MD [address] [place] [address] PCP - General Internal Medicine 09/15/18 documented as of this encounter
--- OUTSIDE RECORDS SUMMARY | 2024-12-29 12:08 | XMS_ITS | Encounter Summary ---
Author Organization [employer] Address [address] [facility] 7t [place] [address] Care Team Providers Care Wholesale Parts Salesperson Name Role Phone Ayaka Salgado MD Primary Care Provider [phone] Encounter Details Date Type Department Care Team ([facility] st Contact Info) Description 04/29/2024 Telephone [facility] MEDICINE 230 [place] [address] Ayaka Salgado MD [address] [place] [address] Social History Tobacco Use Types Packs/Day Years [...] 10 MG tablet To be sent to: [id number] - [place], [place] - [address] [facility] [address] documented in this encounter Plan of Treatment Upcoming Encounters Date Type Department Care Team ([facility] st Contact Info) Description 02/01/2025 9:00 AM EDT Clinical Support [facility] MED & PEDS 505 [place] [address] Alana Hook RN 505 [place] [address] 02/22/2025 1:45 PM EDT Office Visit [facility] MED & PEDS 505 [place] [address] Ayaka Salgado MD 505 [place] [address] documented as of this encounter Visit Diagnoses Not on filedocumented in this encounter Additional Health Concerns Assessment Noted Time PHQ-9 Depression Total Score: 7 08/29/20 22 10:26 AM EST documented as of this encounter Care Teams Wholesale Parts Salesperson Relationship Specialty Start Date End Date Ayaka Salgado MD [address] [place] [address] PCP - General Internal Medicine 09/15/18 documented as of this encounter
--- OUTSIDE RECORDS SUMMARY | 2024-12-29 12:08 | XMS_ITS | Encounter Summary ---
Author Organization [email or web address] Address [address] [facility] 7 [place] [address] Care Team Providers Care Pull Up Hand Name Role Phone Ayaka Salgado MD Primary Care Provider [phone] Reason for Visit * Reason Comments Med Refill Encounter Details Date Type Department Care Team (Late st Contact Info) Description 10/07/2022 Refill [facility] 230 [place] [address] Ayaka Salgado MD [address] [facility] [address] [place] [address] Primary osteoarthritis involving multiple joints Social History [...] Upcoming Encounters Date Type Department Care Team ([facility] st Contact Info) Description 02/01/2025 9:00 AM EDT Clinical Support [facility] MED & PEDS 505 [place] [address] Alana Hook RN 505 [place] [address] 02/22/2025 1:45 PM EDT Office Visit [facility] MED & PEDS 505 [place] [address] Ayaka Salgado MD 505 [place] [address] documented as of this encounter Visit Diagnoses Diagnosis Primary osteoarthritis involving multiple joints documented in this encounter Additional Health Concerns Assessment Noted Time PHQ-9 Depression Total Score: 7 08/29/20 22 10:26 AM EST documented as of this encounter Care Teams Pull Up Hand Relationship Specialty Start Date End Date Ayaka Salgado MD 505 [place] [address] PCP - General Internal Medicine 09/15/18 documented as of this encounter
--- OUTSIDE RECORDS SUMMARY | 2024-12-29 12:08 | XMS_ITS | Encounter Summary ---
Author Organization [employer] Address [address] [place] [address] 7 [place] [address] Care Team Providers Care Microstrategy Developer Name Role Phone Ayaka Salgado MD Primary Care Provider [phone] Reason for Visit * Reason Onset Date Comments Letter Accomodation 12/12/2022 Encounter Details Date Type Department Care Team ([facility] st Contact Info) Description 12/12/2022 Telephone [facility] MED & PEDS 505 [place] [address] Ayaka Salgado MD 505 [place] [address] Letter Accomodation Social History Tobacco Use Types [...] hisPercocet. Advised message will be forwarded to VP OF TECHNOLOGY nurse regarding his request. Pt verbalizes understanding. * Telephone Encounter - Abiel Mills - 12/12/2022 9:32 AM EDT Tc from pt requesting an Accomodation letter. Please contact pt at [phone] documented in this encounter Plan of Treatment Upcoming Encounters Date Type Department Care Team ([facility] st Contact Info) Description 02/01/2025 9:00 AM EDT Clinical Support [facility] MED & PEDS 505 [place] [address] Alana Hook, RN 505 [place] [address] 02/22/2025 1:45 PM EDT Office Visit [facility] MED & PEDS 505 [place] [address] Ayaka Salgado MD 505 [place] [address] documented as of this encounter Visit Diagnoses Diagnosis Congestive heart failure, unspecified HF chronicity, unspecified heart failure type (CMS/HCC) Primary osteoarthritis involving multiple joints documented in this encounter Additional Health Concerns Assessment Noted Time PHQ-9 Depression Total Score: 7 08/29/20 22 10:26 AM EST documented as of this encounter Care Teams Microstrategy Developer Relationship Specialty Start Date End Date Ayaka Salgado MD 505 [place] [address] PCP - General Internal Medicine 09/15/18 documented as of this encounter
--- OUTSIDE RECORDS SUMMARY | 2024-12-29 12:08 | XMS_ITS | Encounter Summary ---
Author Organization [employer] Address [address] [place] [address] 7 [place] [address] Care Team Providers Care Tight Barrel Inspector Name Role Phone Ayaka Salgado MD Primary Care Provider [phone] Reason for Visit * Reason Onset Date Comments Med Refill 12/12/2022 Encounter Details Date Type Department Care Team ([facility] st Contact Info) Description 12/12/2022 Telephone [facility] CH[facility] MED & PEDS [address] [place] [address] Ayaka Salgado MD 505 [place] [address] Med Refill Social History Tobacco Use Types [...] (Norvasc) 5 MG tablet Please sent to [id number] - [place], [place] - [address] [facility] documented in this encounter Plan of Treatment Upcoming Encounters Date Type Department Care Team ([facility] st Contact Info) Description 02/01/2025 9:00 AM EDT Clinical Support [facility] MED & PEDS 505 [place] [address] Alana Hook, RN 505 [place] [address] 02/22/2025 1:45 PM EDT Office Visit [facility] MED & PEDS 505 [place] [address] Ayaka Salgado MD 505 [place] [address] documented as of this encounter Visit Diagnoses Not on filedocumented in this encounter Additional Health Concerns Assessment Noted Time PHQ-9 Depression Total Score: 7 08/29/20 22 10:26 AM EST documented as of this encounter Care Teams Tight Barrel Inspector Relationship Specialty Start Date End Date Ayaka Salgado MD 505 [place] [address] PCP - General Internal Medicine 09/15/18 documented as of this encounter
--- OUTSIDE RECORDS SUMMARY | 2024-12-29 12:08 | XMS_ITS | Encounter Summary ---
Author Organization [employer] Address [address] [place] [address] 7 [place] [address] Care Team Providers Care Pattern Filer Name Role Phone Ayaka Salgado MD Primary Care Provider [phone] Reason for Visit * Reason Onset Date Comments Med Refill 12/12/2022 Encounter Details Date Type Department Care Team ([facility] st Contact Info) Description 12/12/2022 Telephone [facility] MED & PEDS [address] [place] [address] Ayaka Salgado MD 505 [place] [address] Med Refill Social History Tobacco Use Types [...] (Percocet) 5-325 MG tablet Please sent to [id number] - [place], [place] - [address] [facility] documented in this encounter Plan of Treatment Upcoming Encounters Date Type Department Care Team (Late st Contact Info) Description 02/01/2025 9:00 AM EDT Clinical Support [facility] MED & PEDS 505 [place] [address] Alana Hook, RN 505 [place] [address] 02/22/2025 1:45 PM EDT Office Visit [facility] MED & PEDS 505 [place] [address] Ayaka Salgado MD 505 [place] [address] documented as of this encounter Visit Diagnoses Not on filedocumented in this encounter Additional Health Concerns Assessment Noted Time PHQ-9 Depression Total Score: 7 08/29/20 22 10:26 AM EST documented as of this encounter Care Teams Pattern Filer Relationship Specialty Start Date End Date Ayaka Salgado MD 505 [place] [address] PCP - General Internal Medicine 09/15/18 documented as of this encounter
[2024-12-29 14:48] LABS: Hematocrit 25.6 % (42.0-52.0); Hemoglobin 7.6 g/dl (14.0-18.0); Mean Corpuscular HGB Conc 29.7 g/dl (31.0-36.0); Mean Corpuscular Volume 84.2 fL (80.0-98.0); Mean Platelet Volume 12.2 fL (9.4-12.4); Platelet Count 187 X10*3/uL (160-400); Red Blood Count 3.04 X10*6/uL (4.60-5.80); Red Cell Distribution Width 17.9 % (11.0-16.0)
[2024-12-29 15:32] LABS: Anion Gap 13 (12-20); Blood Urea Nitrogen 55 mg/dL (9-16); Calcium 9.7 mg/dL (8.4-10.2); Carbon Dioxide 21 mmol/L (22-29); Chloride 109 mmol/L (96-108); Estimated Glomerular Filt Rate 12; Glucose Random 101 mg/dL (60-115); Potassium 4.3 mmol/L (3.3-5.1); Sodium 139 mmol/L (135-145)
== END 2024-12-29 10:23 | disposition home or self-care (01) ==
LOC: HO.CHCLDS 10:22
PROVIDERS: Visit Provider Internal Medicine Hypertension Specialist
DX: D64.9 Anemia, unspecified (principal); E21.3 Hyperparathyroidism, unspecified
CPT/HCPCS: 36415; 80048; 85027

== ENCOUNTER 2025-01-04 09:07 | Outpatient (AMB) | payer MEDICARE, SELFPAY ==
[2025-01-04 09:10] VITALS: BP 128/72; PULSE 62; O2SAT 98; BMI 36.6
--- NOTE | 2025-01-04 09:10 | HO.NEPHOV ---
Vital Signs 01/04/25 09:10 Height 5 ft 7 in Weight 234 lb BMI 36.6 BP 128/72 Blood Pressure Location Lt brachial Position Sitting Pulse 62 Pulse Source Pulse Oximeter Pulse Oximetry (%) 98 Oxygen Delivery Method Room Air Intake Visit Reasons: 1 MO FU Allergies aspirin Adverse Reaction (Unknown, Verified 01/04/25 09:12) nose bleeds metformin Adverse Reaction (Unknown, Verified 01/04/25 09:12) hypoglycemia warfarin [From Coumadin] Adverse Reaction (Unknown, Verified 01/04/25 09:12) Nose Bleed apixaban Adverse Reaction (Verified 01/04/25 09:12) Nose Bleed clopidogrel Adverse Reaction (Verified 01/04/25 09:12) Nose Bleed Medication List - Last Reconciled 01/04/25 by Ross Baldwin MD acetaminophen (Tylenol) 650 mg PO Q6H PRN albuterol sulfate 90 mcg/actuation (Ventolin HFA) inhalation albuterol sulfate mg inhalation blood-glucose meter (FreeStyle Lite Meter kit) As directed bumetanide 1 mg PO BID calcitriol 0.25 mcg PO DAILY cholecalciferol (vitamin D3) 25 mcg PO Q48H cinacalcet 30 mg PO DAILY clonidine HCl 0.2 mg PO TID gabapentin 300 mg PO TID glimepiride 1 mg PO DAILY hydralazine 100 mg PO TID labetalol 400 mg PO BID lancets (FreeStyle Lancets) As directed lidocaine 5% 1 patch topical DAILY PRN losartan 50 mg PO DAILY melatonin 5 mg PO BEDTIME oxycodone-acetaminophen 5-325 mg 1 tab PO Q8H PRN simvastatin 20 mg PO BEDTIME sitagliptin phosphate (Januvia) 25 mg PO DAILY tiotropium bromide (Spiriva with HandiHaler) 1 cap inhalation DAILY zolpidem 10 mg PO BEDTIME HPI Comments Details: 67-year-old male with a history of type 2 diabetes, HTN, CKD, carotid stenosis, COPD, LEONEL not on CPAP, diastolic CHF with preserved ejection fraction, He has advanced CKD Baseline creatinine is between 3.5 and 4.0 Currently on high dose of Bumex -Takes 1mg BID No edema No dyspnea 06/15/24 ; c/o SOB;Gained some weight/edema ;Went to [place] 06/25/24 ;After adding metolazone 2 doses and increasing Bumex to 1 mg b.i.d. he has lost about 7 lb. His breathing has improved. He feels better 07/27/24;doing much better;seen by cardiology 08/30/24 ;Dyspnea on exertion ;Weight is down by few lbs 09/13/24 ; c/o difficulty sleeping ;He has LEONEL -but does not use CPAP ; New onset A.fib - work up in progress 11/08/24: Still sOB on exertion;Seeing cardilogy today [facility] Medical History Obesity (BMI 30-39.9) Elevated brain natriuretic peptide (BNP) level Lower extremity edema COPD (chronic obstructive pulmonary disease) LEONEL (obstructive sleep apnea) Dyspnea on minimal exertion COPD (chronic obstructive pulmonary disease) Smoker Left ventricular hypertrophy Smoking CKD (chronic kidney disease) Obesity Dyslipidemia Hypertension Diabetes mellitus Surgical History No pertinent past surgical history Family History Father No problems noted. Mother Diabetes Family/Other No problems noted. Social History Household Members: Significant Other Housing: Apartment Do you presently have visiting nurse or other home services: No Alcohol intake: current Alcohol intake frequency: a few times a month Patient Tobacco Use Status: Former Tobacco user e-Cigarette/Vaping Use: Never Used Second Hand Smoke Exposure: No Advance Directives Date on File: 08/23/22 service: No Current occupational status: disabled Physical Exam Vital Signs: Last Vital Signs Pulse 62 01/04/25 09:10 BP 128/72 01/04/25 09:10 Pulse Ox 98 01/04/25 09:10 Oxygen Delivery Method Room Air 01/04/25 09:10 BMI result Body Mass Index 36.6 Comfortable Neck supple no JVD. Lungs entry equal no rales. Heart S1-S2 heard no gallop or rub. Abdomen soft nontender. Neuro alert awake oriented. No asterixis. Extremities 2+edema. Office Meds epoetin chad-epbx 20,000 unit/mL injection solution Performing Provider: Ross Baldwin MD [facility] Administered by: Ross Baldwin MD on 01/04/25 09:44 Dose Route Admin Location Dispensed Lot Number Expiration Date [facility] Healthcare Financial Analyst 20,000 unit subcut right arm 1 mL [id number] 04/14/26 2263-3410-44 [employer] Results Reviewed Nephrology Results: Hgb 7.6 g/dl (14.0-18.0) L 12/29/24 WBC 5.0 X10*3/uL (4.8-10.8) 12/29/24 Plt Count 187 X10*3/uL (160-400) 12/29/24 Sodium 139 mmol/L (135-145) 12/29/24 Potassium 4.3 mmol/L (3.3-5.1) 12/29/24 Chloride 109 mmol/L (96-108) H 12/29/24 Carbon Dioxide 21 mmol/L (22-29) L 12/29/24 BUN 55 mg/dL (9-16) H 12/29/24 Creatinine 4.84 mg/dL (0.5-1.4) H* 12/29/24 Calcium 9.7 mg/dL (8.4-10.2) 12/29/24 Assessment & Plan Assessment & Plan (1) CKD (chronic kidney disease) stage 4, GFR 15-29 ml/min: Code(s): N18.4 - Chronic kidney disease, stage 4 (severe) Category: Medical (2) Essential hypertension: Code(s): I10 - Essential (primary) hypertension Category: Medical Plan: BP appears well controlled. We discussed weight loss and low-salt diet again. (3) Chronic diastolic congestive heart failure: Code(s): I50.32 - Chronic diastolic (congestive) heart failure Category: Medical Plan: Compensated. Follows with cardiology. (4) Obesity (BMI 30-39.9): Code(s): E66.9 - Obesity, unspecified Category: Medical Plan: Discussed weight loss. (5) Hyperparathyroidism: Code(s): E21.3 - Hyperparathyroidism, unspecified Category: Medical Plan: Repeat calcium was 7. He is currently on cinacalcet and Rocaltrol. Will HOLD Cinacalcet ( 11/08/24) Repeat C is 9.7 Follow PTH (6) Anemia: Code(s): D64.9 - Anemia, unspecified Category: Medical Plan: Due to CKD Administered Retacrit U Sq Plan Referred to dialysis education program. He will be a good candidate for CCPD Discussed pre-emptive transplant REfered to [facility] - seen in Jul Orders: Orders AMB Epoetin Injection Practice Supplied Today N40.1 - Benign prostatic hyperplasia with lower urinary tract symptoms Medications: New epoetin chad-epbx 20,000 units subcut ONCE 1 mL 0RF anemia N40.1 - Benign prostatic hyperplasia with lower urinary tract symptoms Coding Level of Care Code Est Pt Level 4 (48015) Diagnoses CKD (chronic kidney disease) stage 4, GFR 15-29 ml/min N18.4 Essential hypertension I10 Chronic diastolic congestive heart failure I50.32 Obesity (BMI 30-39.9) E66.9 Hyperparathyroidism E21.3 Anemia D64.9
--- OUTSIDE RECORDS SUMMARY | 2025-01-04 09:43 | XMS_ITS | Referral Summary ---
Author Organization [facility] Address [address] [place] [address] Care Team Providers Care Rn Hedis Name Role Phone Ayaka Salgado Primary Care Provider [phone] Encounters Date Type Department Care Team Description 11/24/2024 Orders Only [facility] Transplant Department [address] [place] [address] [phone] Shima Springer RN Pre-transplant evaluation for end stage renal disease (Primary Dx); Chronic kidney disease, stage V 11/23/2024 Telephone [facility] Transplant Department [address] [place], [place] [phone] Shima Springer, jewelry engraver - Kidney Txp from Last 3 Months [...] Info) Description 08/02/2025 8:20 AM EST Follow-Up [facility] Renal Transplant [address] [place] [address] Joey Duarte MD [address] [place] [address] 08/02/2025 9:00 AM EST Social Work [facility] Renal Transplant [address] [place] [address] Susan Babb LICSW [address] [place] [address] Procedures * Due to [place] state law, this organization might not be [...] to Health Maintenance Results * Due to [place] state law, this organization might not be [...] 0.0 /100 WBCs 07/29/2024 1:35 PM EST [facility] nRBC # <0.01 <0.01 10*3/uL 07/29/2024 1:35 PM EST [facility] Blood Structure of peripheral vein / Unknown Venipuncture / Unknown 07/29/2024 12:57 PM EST 07/29/2024 1:29 PM EST Joey Duarte MD LAB BLOOD ORDERABLES María l Result [email or web address] [address] [place] [address], * Hepatitis C Antibody w/Reflex to PCR (07/29/2024 12:57 PM EST) Hepatitis C Antibody NON-REACT [place] NON-REACT [place] 07/30/2024 3:03 AM EST [facility] Comment: HCV antibody was non-reactive. There is no laboratory evidence of HCV infection. In most cases, no further action is required. However, if recent HCV exposure is suspected, a test for HCV RNA (test code 68089) is suggested. For additional information please refer to http://education.StockTwits/faq/ZAF12g7 (This link is being provided for informational/ educational purposes only.) Blood Structure of peripheral vein / Unknown Venipuncture / Unknown 07/29/2024 12:57 PM EST 07/29/2024 1:32 PM EST Narrative [facility] 07/30/2024 3:03 AM EST [facility] Received Date: Joey Duarte MD LAB BLOOD ORDERABLES María l Result [facility] [address] [facility] 3rd Floor, [place] [address], [place] [phone] [employer] [facility] [address] [facility] 3rd Floor, [place] [address], [place] [phone] * Phosphorus (07/29/2024 12:57 PM EST) Phosphorus 4.5 2.5 - 4.5 mg/dL 07/29/2024 2:00 PM EST [facility] Blood Structure of peripheral vein / Unknown Venipuncture / Unknown 07/29/2024 12:57 PM EST 07/29/2024 1:29 PM EST Joey Duarte MD LAB BLOOD ORDERABLES María l Result [email or web address] [address] [place] [address], * (ABNORMAL) Hemoglobin A1c (07/29/2024 12:57 PM EST) Hemoglobin A1C 6.7(H) <5.7 % of total Hgb 07/30/2024 1:59 AM [facility] Comment: For someone without known diabetes, a [...] (MG/DL) 146 mg/dL 07/30/2024 1:59 AM EST [facility] e[facility] (MMOL/L) 8.1 mmol/L 07/30/2024 1:59 AM [facility] Blood Structure of peripheral vein / Unknown Venipuncture / Unknown 07/29/2024 12:57 PM EST 07/29/2024 1:32 PM EST Narrative [facility] - 07/30/2024 1:59 AM EST [facility] Received Date: Joey Duarte MD LAB BLOOD ORDERABLES María l Result [facility] [address] 3[address] Floor, [address] [place] [address], [place] [phone] [facility] [address] Floor, [address] [place] [address], [place] [phone] from Last 3 Months or Most Recently Relevant to Health Maintenance Insurance [facility] REPLACE A[facility] MCR REPLACE [facility] Advance Directives Documents on File Type Date Recorded Patient Egg Worker Expl [facility] Health Care Proxy 08/05/2024 4:14 PM - Care Teams Rn Hedis Relationship Specialty Start Date End Date Ayaka Salgado [address] [place] [address] PCP - General Internal Medicine 07/29/24
--- OUTSIDE RECORDS SUMMARY | 2025-01-04 09:43 | XMS_ITS | Encounter Summary ---
Author Organization [employer] Address [address] [facility] 7 [place] [address] Care Team Providers Care Fiber Drier Operator Name Role Phone Ayaka Salgado MD Primary Care Provider [phone] Reason for Visit * Reason Onset Date Comments Med Refill 12/31/2024 Encounter Details Date Type Department Care Team (Late st Contact Info) Description 12/31/2024 Refill [facility] [address] [place] [address] Ayaka Salgado MD 505 [facility] [place] [address] Arthropathy Social History Tobacco Use Types Packs/Day [...] * Telephone Encounter - Cleopatra Ortiz - 12/31/2024 8:01 AM EDT TC from pt requesting medication refill. Medications needing refill : oxyCODONE-acetaminophen (Percocet) 5-325 MG tablet To be sent to: [id number] - [place] - [facility] [facility] documented in this encounter Plan of Treatment Upcoming Encounters Date Type Department Care Team ([facility] st Contact Info) Description 02/01/2025 9:00 AM EDT Clinical Support [facility] MED & PEDS 505 [facility] [place] [address] Alana Hook, RACHELLE 505 [facility] [place] [address] 02/22/2025 1:45 PM EDT Office Visit [facility] MED & PEDS 505 [place] [address] Ayaka Salgado MD 505 [place] [address] documented as of this encounter Visit Diagnoses Diagnosis Arthropathy Unspecified arthropathy, site unspecified documented in this encounter Additional Health Concerns Assessment Noted Time PHQ-9 Depression Total Score: 12 025 11:13 AM EDT documented as of this encounter Care Teams Fiber Drier Operator Relationship Specialty Start Date End Date Ayaka Salgado MD [address] [place] [address] PCP - General Internal Medicine 09/15/18 documented as of this encounter
--- OUTSIDE RECORDS SUMMARY | 2025-01-04 09:43 | XMS_ITS ---
Author Organization [facility] Address [address] [place] [address] Care Team Providers Care Power Plant Engineer Name Role Phone Ayaka Salgado Primary Care Provider Transplant Episode Kidney Candidate [facility] ([place], [place]) - COUNTS INCLUDE 234 BEDS AT [facility] Evaluation began on 07/29/2024 Marked as Active on 07/29/2024 Kidney CoordinatorShima Springer RN Email: N/A Scores Score Value Updated Exceptions/Reas ons CPRA Not available EPTS (Calc) 44 01/04/2025 [place] Organ Diagnosis Organ Primary Contributory Kidney Diabetes Mellitus - Type II Care Team Name Role Phone Fax Email Shima Springer RN Kidney Coordinator [phone] N/A Ross Baldwin Referring Physician [phone] N/A Events Pre-Transplant Referred: 07/19/2024 Evaluation began: 07/29/2024
--- OUTSIDE RECORDS SUMMARY | 2025-01-04 09:43 | XMS_ITS | Encounter Summary ---
Author Organization [employer] [facility] Address [address] [place] [address] 7 [place] [address] Care Team Providers Care Capacity Planning Analyst Name Role Phone Ayaka Salgado MD Primary Care Provider [phone] Reason for Visit * Reason Comments Med Refill Encounter Details Date Type Department Care Team ([facility] Contact Info) Description 02/24/2023 Refill [facility] MED & PEDS [address] [place] [address] Ayaka Salgado MD [address] [place] [address] Social History Tobacco Use Types Packs/Day Years [...] Encounters Date Type Department Care Team ([facility] st Contact Info) Description 02/01/2025 9:00 AM EDT Clinical Support [facility] MED & PEDS [address] [place] [address] Alana Hook, RACHELLE 505 [place] [address] 02/22/2025 1:45 PM EDT Office Visit [facility] MED & PEDS [address] [place] [address] Ayaka Salgado MD [address] [place] [address] documented as of this encounter Visit Diagnoses Not on filedocumented in this encounter Additional Health Concerns Assessment Noted Time PHQ-9 Depression Total Score: 7 08/29/20 22 10:26 AM EST documented as of this encounter Care Teams Capacity Planning Analyst Relationship Specialty Start Date End Date Ayaka Salgado MD [address] [place] [address] PCP - General Internal Medicine 09/15/18 documented as of this encounter
--- OUTSIDE RECORDS SUMMARY | 2025-01-04 09:43 | XMS_ITS | Clinical Summary ---
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 from Last 3 Months [...] Info) Description 08/02/2025 8:20 AM EST Follow-Up [facility] Renal Transplant [address] [place] [address] Joey Duarte MD [address] [place] [address] 08/02/2025 9:00 AM EST Social Work [facility] Renal Transplant [address] [place] [address] Susan Babb LICSW [address] [place] [address] Health Maintenance Due Date Last Done Comments [...] complete this topic Procedures * Due to [place] state law, [...] MD LAB BLOOD ORDERABLES María l Result [facility] [address] [place] [address], * Hepatitis C Antibody w/Reflex to PCR (07/29/2024 12:57 PM EST) Hepatitis C Antibody NON-REACT [place] NON-REACT [place]ORD 07/30/2024 3:03 AM EST [facility] Comment: HCV antibody was non-reactive. There is no laboratory evidence of HCV infection. In most cases, no further action is required. However, if recent HCV exposure is suspected, a test for HCV RNA (test code 18192) is suggested. For additional information please refer to http://education.Local Dirt/faq/WDB22y2 (This link is being provided for informational/ educational purposes only.) Blood Structure of peripheral vein / Unknown Venipuncture / Unknown 07/29/2024 12:57 PM EST 07/29/2024 1:32 PM EST Narrative [facility] - 07/30/2024 3:03 AM EST [facility] Received Date: Joey Duarte MD LAB BLOOD ORDERABLES María l Result Per[facility] Organization Address City/[facility]/ZIP Co de Phone Number [facility] [address] [facility] 3rd Floor, [place] [address], [place] [phone] [facility] [address] [facility] 3rd Floor, [place] [address], [place] [phone] * Phosphorus (07/29/2024 12:57 PM EST) Phosphorus 4.5 2.5 - 4.5 mg/dL 07/29/2024 2:00 PM EST [facility] Blood Structure of peripheral vein / Unknown Venipuncture / Unknown 07/29/2024 12:57 PM EST 07/29/2024 1:29 PM EST Joey Duarte MD LAB BLOOD ORDERABLES María l Result [facility] [address] [place] [address], [place] * (ABNORMAL) Hemoglobin A1c (07/29/2024 12:57 PM EST) Hemoglobin A1C 6.7(H) <5.7 % of total Hgb 07/30/2024 1:59 AM EST [facility] Comment: For someone without known diabetes, a [...] (MG/DL) 146 mg/dL 07/30/2024 1:59 AM EST [facility] eAG (MMOL/L) 8.1 mmol/L 07/30/2024 1:59 AM EST [facility] Blood Structure of peripheral vein / Unknown Venipuncture / Unknown 07/29/2024 12:57 PM EST 07/29/2024 1:32 PM EST N[facility]ative [facility] 07/30/2024 1:59 AM EST [facility] Received Date: Joey Duarte MD LAB BLOOD ORDERABLES María l Result [facility] [place] [address] [facility] 3rd Floor, [place] [address], [place] [phone] [facility] [address] [facility] 3rd Floor, [place] [address], [place] [phone] from Last 3 Months or Most Recently Relevant to Health Maintenance Insurance [facility] [place] [address] [facility] [place] [address] [facility] [place] [address] [facility] [place] [address] Advance Directives Documents on File Type Date Recorded Patient Buyer Grain Expl [facility] Health Care Proxy 08/05/2024 4:14 PM 07-16 Care Teams Wrapper Layer Relationship Specialty Start Date End Date Ayaka Salgado [address] [place] [address] PCP - General Internal Medicine 07/29/24
--- OUTSIDE RECORDS SUMMARY | 2025-01-04 09:43 | XMS_ITS | Encounter Summary ---
Author Organization [facility] Address [address] [place] [address] Care Team Providers Care Respiratory Manager Name Role Phone Ayaka Salgado Primary Care Provider Encounter Details Date Type Department Care Team (Late st Contact Info) Description 07/29/2024 Orders Only [facility] XRay [address] [place] [address] Waqas Ganrett MD [address] [place] [address] Social History Tobacco Use Types Packs/Day Years [...] Info) Description 08/02/2025 8:20 AM EST Follow-Up [facility] Renal Transplant [address] [place] [address] Joey Duarte MD [address] [place] [address] 08/02/2025 9:00 AM EST Social Work [facility] Renal Transplant [address] [place] [address] Susan Babb LICSW [address] [place] [address] documented as of this encounter Visit Diagnoses Not on filedocumented in this encounter Care Teams Respiratory Manager Relationship Specialty Start Date End Date Ayaka Salgado [address] [place] [address] PCP - General Internal Medicine 07/29/24 documented as of this encounter
--- OUTSIDE RECORDS SUMMARY | 2025-01-04 09:44 | XMS_ITS | Encounter Summary ---
Author Organization [employer] Address [address] [place] [address] 7t [place] [address] Care Team Providers Care Medical Genetics Director Name Role Phone Ayaka Salgado MD Primary Care Provider [phone] Encounter Details Date Type Department Care Team (Late st Contact Info) Description 01/23/2023 [facility] [address] [place] [address] Ayaka Salgado MD [address] [place], [place] [phone] Social History Tobacco Use Types Packs/Day Years [...] 02/01/2025 9:00 AM EDT Clinical Support [facility] MED & PEDS [address] [place] [address] Alana Hook RN 505 [place] [address] 02/22/2025 1:45 PM EDT Office Visit [facility] MED & PEDS [address] [place] [address] Ayaka Salgado MD 505 [place] [address] documented as of this encounter Visit Diagnoses Not on filedocumented in this encounter Additional Health Concerns Assessment Noted Time PHQ-9 Depression Total Score: 7 08/29/20 22 10:26 AM EST documented as of this encounter Care Teams Medical Genetics Director Relationship Specialty Start Date End Date Ayaka Salgado MD [address] [place] [address] PCP - General Internal Medicine 09/15/18 documented as of this encounter
--- OUTSIDE RECORDS SUMMARY | 2025-01-04 09:44 | XMS_ITS | Encounter Summary ---
Author Organization [employer] Address [address] [place] [address] 7 [place] [address] Care Team Providers Care Commercial Green Building Architect Name Role Phone Ayaka Salgado MD Primary Care Provider [phone] Reason for Visit * Reason Onset Date Comments Med Refill 08/05/2024 Encounter Details Date Type Department Care Team ([facility] st Contact Info) Description 08/05/2024 Refill [facility] CHC MED & PEDS [address] [place] [address] Ayaka Salgado MD [address] [place] [address] Back pain, unspecified back location, unspecified back [...] the past 12 months, has t he [employer], gas, oil or water [employer] threatened to shut off services in your [...] 5-325 MG tablet To be sent to: [id number] - [place], [place] - [address] [facility] documented in this encounter Plan of Treatment Upcoming Encounters Date Type Department Care Team (Late st Contact Info) Description 02/01/2025 9:00 AM EDT Clinical Support [facility] MED & PEDS [address] [place] [address] Alana Hook RN 505 [place] [address] 02/22/2025 1:45 PM EDT Office Visit [facility] MED & PEDS [address] [place] [address] Ayaka Salgado MD 505 [place] [address] documented as of this encounter Visit Diagnoses Diagnosis Back pain, unspecified back location, unspecified back pain laterality, unspecified chronicity- Primary documented in this encounter Additional Health Concerns Assessment Noted Time PHQ-9 Depression Total Score: 7 08/29/20 22 10:26 AM EST documented as of this encounter Care Teams Commercial Green Building Architect Relationship Specialty Start Date End Date Ayaka Salgado MD 505 [place] [address] PCP - General Internal Medicine 09/15/18 documented as of this encounter
--- OUTSIDE RECORDS SUMMARY | 2025-01-04 09:44 | XMS_ITS | Encounter Summary ---
Author Organization [employer] Address [address] [facility] 7t [place] [address] Care Team Providers Care Technical Illustrations Map Inker Name Role Phone Ayaka Salgado MD Primary Care Provider [phone] Encounter Details Date Type Department Care Team ([facility] st Contact Info) Description 04/29/2024 Telephone [facility] MEDICINE [address] [place] [address] Ayaka Salgado MD [address] [place] [address] Social History Tobacco Use Types Packs/Day Years [...] 10 MG tablet To be sent to: [id number] - [place], [place] - [address] [facility] & [place] documented in this encounter Plan of Treatment Upcoming Encounters Date Type Department Care Team ([facility] st Contact Info) Description 02/01/2025 9:00 AM EDT Clinical Support [facility] PEDS [address] [place] [address] Alana Hook RN 505 [place] [address] 02/22/2025 1:45 PM EDT Office Visit [facility] MED [facility] PEDS [address] [place] [address] Ayaka Salgado MD 505 [place] [address] documented as of this encounter Visit Diagnoses Not on filedocumented in this encounter Additional Health Concerns Assessment Noted Time PHQ-9 Depression Total Score: 7 08/29/20 22 10:26 AM EST documented as of this encounter Care Teams Technical Illustrations Map Inker Relationship Specialty Start Date End Date Ayaka Salgado MD [address] [place] [address] PCP - General Internal Medicine 09/15/18 documented as of this encounter
--- OUTSIDE RECORDS SUMMARY | 2025-01-04 09:44 | XMS_ITS | Encounter Summary ---
Author Organization [employer] Address [address] [place] [address] 7 [place] [address] Care Team Providers Care Auto Tune Up Mechanic Name Role Phone Ayaka Salgado MD Primary Care Provider [phone] Reason for Visit * Reason Onset Date Comments Med Refill 12/12/2022 Encounter Details Date Type Department Care Team ([facility] st Contact Info) Description 12/12/2022 Telephone [facility] CHC MED & PEDS 505 [place] [address] Ayaka Salgado MD [address] [place] [address] Med Refill Social History Tobacco Use Types [...] (Percocet) 5-325 MG tablet Please sent to [id number] - [place], [place] - [address] [facility] documented in this encounter Plan of Treatment Upcoming Encounters Date Type Department Care Team (Late st Contact Info) Description 02/01/2025 9:00 AM EDT Clinical Support [facility] MED & PEDS [address] [place] [address] Alana Hook, RN 505 [place] [address] 02/22/2025 1:45 PM EDT Office Visit [facility] MED & PEDS [address] [place] [address] Ayaka Salgado MD 505 [place] [address] documented as of this encounter Visit Diagnoses Not on filedocumented in this encounter Additional Health Concerns Assessment Noted Time PHQ-9 Depression Total Score: 7 08/29/20 22 10:26 AM EST documented as of this encounter Care Teams Auto Tune Up Mechanic Relationship Specialty Start Date End Date Ayaka Salgado MD [address] [place] [address] PCP - General Internal Medicine 09/15/18 documented as of this encounter
--- OUTSIDE RECORDS SUMMARY | 2025-01-04 09:44 | XMS_ITS | Encounter Summary ---
Author Organization [employer] Address [address] [facility] 7t [place] [address] Care Team Providers Care Puppet Master Name Role Phone Ayaka Salgado MD Primary Care Provider [phone] Encounter Details Date Type Department Care Team ([facility] st Contact Info) Description 08/20/[address] [facility] CHC MED & PEDS [address] [place] [address] Ayaka Salgado MD [address] [place] [address] Social History Tobacco Use Types Packs/Day Years [...] [facility] MED & PEDS [address] [place], [place] [phone] Alana Hook RN 505 [place] [address] 02/22/2025 1:45 PM EDT Office Visit [facility] MED & PEDS [address] [place] [address] Ayaka Salgado MD [address] [place] [address] documented as of this encounter Visit Diagnoses Not on filedocumented in this encounter Additional Health Concerns Assessment Noted Time PHQ-9 Depression Total Score: 7 08/29/20 22 10:26 AM EST documented as of this encounter Care Teams Puppet Master Relationship Specialty Start Date End Date Ayaka Salgado MD [address] [place] [address] PCP - General Internal Medicine 09/15/18 documented as of this encounter
--- OUTSIDE RECORDS SUMMARY | 2025-01-04 09:44 | XMS_ITS | Encounter Summary ---
Author Organization [employer] Address [address] [place] [address] 7 [place] [address] Care Team Providers Care Foreign Diplomat Name Role Phone Ayaka Salgado MD Primary Care Provider [phone] Reason for Visit * Reason Comments Med Refill Encounter Details Date Type Department Care Team ([facility] Contact Info) Description 07/28/2023 Refill [facility] CHC MED & PEDS [address] [place] [address] Ayaka Salgado MD [address] [place] [address] Social History Tobacco Use Types Packs/Day Years [...] Description 02/01/2025 9:00 AM EDT Clinical Support [facility] MED & PEDS [address] [place] [address] Alana Hook, RACHELLE 505 [place] [address] 02/22/2025 1:45 PM EDT Office Visit [facility] MED & PEDS [address] [place] [address] Ayaka Salgado MD [address] [place] [address] documented as of this encounter Visit Diagnoses Not on filedocumented in this encounter Additional Health Concerns Assessment Noted Time PHQ-9 Depression Total Score: 7 08/29/20 22 10:26 AM EST documented as of this encounter Care Teams Foreign Diplomat Relationship Specialty Start Date End Date Ayaka Salgado MD [address] [place] [address] PCP - General Internal Medicine 09/15/18 documented as of this encounter
--- OUTSIDE RECORDS SUMMARY | 2025-01-04 09:44 | XMS_ITS | Encounter Summary ---
Author Organization [employer] Address 75 [facility] 7 [place] [address] Care Team Providers Care Embedded Systems Developer Name Role Phone Ayaka Salgado MD Primary Care Provider [phone] Reason for Visit * Reason Onset Date Comments Med Refill 08/09/2024 Encounter Details Date Type Department Care Team ([facility] st Contact Info) Description 08/09/2024 Telephone [facility] MEDICINE [address] [place] [address] Ayaka Salgado MD 505 [facility] [place] [address] Med Refill Social History Tobacco Use Types [...] 5-325 MG tablet To be sent to: [facility][id number] documented in this encounter Plan of Treatment Upcoming Encounters Date Type Department Care Team ([facility] st Contact Info) Description 02/01/2025 9:00 AM EDT Clinical Support [facility] MED & PEDS 505 [place] [address] Alana Hook RN 505 [place] [address] 02/22/2025 1:45 PM EDT Office Visit [facility] MED & PEDS 505 [place] [address] Ayaka Salgado MD 505 [place] [address] documented as of this encounter Visit Diagnoses Not on filedocumented in this encounter Additional Health Concerns Assessment Noted Time PHQ-9 Depression Total Score: 7 08/29/20 22 10:26 AM EST documented as of this encounter Care Teams Embedded Systems Developer Relationship Specialty Start Date End Date Ayaka Salgado MD [address] [place] [address] PCP - General Internal Medicine 09/15/18 documented as of this encounter
--- OUTSIDE RECORDS SUMMARY | 2025-01-04 09:44 | XMS_ITS | Encounter Summary ---
Author Organization [employer] Address 75 [facility] 7t [place] [address] Care Team Providers Care Detector Car Operator Name Role Phone Ayaka Salgado MD Primary Care Provider [phone] Encounter Details Date Type Department Care Team ([facility] st Contact Info) Description 09/22/2023 Orders Only [facility] CHC MED & PEDS 505 [place] [address] Ayaka Salgado MD 505 [place] [address] Simple chronic bronchitis (CMS/HCC) (Primary Dx) Social [...] AM EDT Clinical Support [facility] MED & PEDS 505 [place] [address] Alana Hook, RACHELLE 505 [place] [address] 02/22/2025 1:45 PM EDT Office Visit [facility] MED & PEDS 505 [place] [address] Ayaka Salgado MD 505 [place] [address] documented as of this encounter Visit Diagnoses Diagnosis Simple chronic bronchitis (CMS/HCC)- Primary Simple chronic bronchitis documented in this encounter Additional Health Concerns Assessment Noted Time PHQ-9 Depression Total Score: 7 08/29/20 22 10:26 AM EST documented as of this encounter Care Teams Detector Car Operator Relationship Specialty Start Date End Date Ayaka Salgado MD 505 [place] [address] PCP - General Internal Medicine 09/15/18 documented as of this encounter
--- OUTSIDE RECORDS SUMMARY | 2025-01-04 09:44 | XMS_ITS | Encounter Summary ---
Author Organization [employer] Address [address] [place] [address] 7t [place] [address] Care Team Providers Care Coil Winder Repair Name Role Phone Ayaka Salgado MD Primary Care Provider [phone] Encounter Details Date Type Department Care Team (Late st Contact Info) Description 02/19/2023 Abstract [facility] [address] [place] [address] Ayaka Salgado MD 505 [place], [place] [id number] Social History Tobacco Use Types Packs/Day Years [...] [facility] MED & PEDS 505 [place] [address] Alana Hook RN 505 [place] [address] 02/22/2025 1:45 PM EDT Office Visit [facility] MED & PEDS [address] [place] [address] Ayaka Salgado MD 505 [place] [address] documented as of this encounter Visit Diagnoses Not on filedocumented in this encounter Additional Health Concerns Assessment Noted Time PHQ-9 Depression Total Score: 7 08/29/20 22 10:26 AM EST documented as of this encounter Care Teams Coil Winder Repair Relationship Specialty Start Date End Date Ayaka Salgado MD 505 [place] [address] PCP - General Internal Medicine 09/15/18 documented as of this encounter
--- OUTSIDE RECORDS SUMMARY | 2025-01-04 09:44 | XMS_ITS | Encounter Summary ---
Author Organization [employer] Address 75 [facility] 7 [place] [address] Care Team Providers Care Repertoire Manager Name Role Phone Ayaka Salgado MD Primary Care Provider [phone] Reason for Visit * Reason Onset Date Comments Med Refill 07/28/2023 Encounter Details Date Type Department Care Team ([facility] Contact Info) Description 07/28/2023 Telephone [facility] CHC MED & PEDS 505 [place] [address] Ayaka Salgado MD 505 [place] [address] Med Refill Social History Tobacco Use Types [...] (Percocet) 5-325 MG tablet Please sent to [email or web address] #[id number] - [place] - [address] [facility] documented in this encounter Plan of Treatment Upcoming Encounters Date Type Department Care Team ([facility] st Contact Info) Description 02/01/2025 9:00 AM EDT Clinical Support [facility] MED & PEDS 505 [place] [address] Alana Hook RN 505 [place] [address] 02/22/2025 1:45 PM EDT Office Visit [facility] MED & PEDS 505 [place] [address] Ayaka Salgado MD 505 [place] [address] documented as of this encounter Visit Diagnoses Not on filedocumented in this encounter Additional Health Concerns Assessment Noted Time PHQ-9 Depression Total Score: 7 08/29/20 22 10:26 AM EST documented as of this encounter Care Teams Repertoire Manager Relationship Specialty Start Date End Date Ayaka Salgado MD [address] [place] [address] PCP - General Internal Medicine 09/15/18 documented as of this encounter
--- OUTSIDE RECORDS SUMMARY | 2025-01-04 09:44 | XMS_ITS | Encounter Summary ---
Author Organization [employer] Address 75 [facility] 7 [place] [address] Care Team Providers Care Custom Leather Products Maker Name Role Phone Ayaka Salgado MD Primary Care Provider [phone] Reason for Visit * Reason Onset Date Comments Med Refill 07/31/2023 Encounter Details Date Type Department Care Team ([facility] st Contact Info) Description 07/31/2023 Telephone [facility] MEDICINE 230 [place] [address] Ayaka Salgado MD 505 [facility] [place] [address] Med Refill Social History Tobacco Use Types [...] Upcoming Encounters Date Type Department Care Team ([facility] st Contact Info) Description 02/01/2025 9:00 AM EDT Clinical Support [facility] MED & PEDS 505 [place] [address] Alana Hook RN 505 [place] [address] 02/22/2025 1:45 PM EDT Office Visit [facility] MED & PEDS 505 [place] [address] Ayaka Salgado MD 505 [place] [address] documented as of this encounter Visit Diagnoses Not on filedocumented in this encounter Additional Health Concerns Assessment Noted Time PHQ-9 Depression Total Score: 7 08/29/20 10:26 AM EST documented as of this encounter Care Teams Custom Leather Products Maker Relationship Specialty Start Date End Date Ayaka Salgado MD [address] [place] [address] PCP - General Internal Medicine 09/15/18 documented as of this encounter
--- OUTSIDE RECORDS SUMMARY | 2025-01-04 09:44 | XMS_ITS | Encounter Summary ---
Author Organization [employer] Address [address] [place] [address] 7 [place] [address] Care Team Providers Care Incinerator Plant General Supervisor Name Role Phone Ayaka Salgado MD Primary Care Provider [phone] Reason for Visit * Reason Comments Med Refill Encounter Details Date Type Department Care Team ([facility] st Contact Info) Description 01/06/2023 Refill [facility] CHC MED & PEDS 505 [place] [address] Ayaka Salgado MD 505 [place] [address] Primary osteoarthritis involving multiple joints Social History [...] Upcoming Encounters Date Type Department Care Team ([facility] st Contact Info) Description 02/01/2025 9:00 AM EDT Clinical Support [facility] MED & PEDS 505 [place] [address] Alana Hook RN 505 [place] [address] 02/22/2025 1:45 PM EDT Office Visit [facility] MED & PEDS 505 [place] [address] Ayaka Salgado MD 505 [place] [address] documented as of this encounter Visit Diagnoses Diagnosis Primary osteoarthritis involving multiple joints documented in this encounter Additional Health Concerns Assessment Noted Time PHQ-9 Depression Total Score: 7 08/29/20 22 10:26 AM EST documented as of this encounter Care Teams Incinerator Plant General Supervisor Relationship Specialty Start Date End Date Ayaka Salgado MD 505 [place] [address] PCP - General Internal Medicine 09/15/18 documented as of this encounter
--- OUTSIDE RECORDS SUMMARY | 2025-01-04 09:44 | XMS_ITS | Encounter Summary ---
Author Organization [employer] Address 75 [facility] 7t [place] [address] Care Team Providers Care Event Technician Name Role Phone Ayaka Salgado MD Primary Care Provider [phone] Encounter Details Date Type Department Care Team (Late st Contact Info) Description 10/11/2022 Orders Only [facility] MEDICINE 230 [place] [address] Ayaka Salgado MD [address] [facility] [place] [address] Congestive heart failure, unspecified HF chronicity, unspecified [...] [facility] Contact Info) Description 02/01/2025 9:00 AM EDT Clinical Support [facility] MED & PEDS 505 [place] [address] Alana Hook, RACHELLE 505 [place] [address] 02/22/2025 1:45 PM EDT Office Visit [facility] MED & PEDS 505 [place] [address] Ayaka Salgado MD 505 [place] [address] documented as of this encounter Visit Diagnoses Diagnosis Congestive heart failure, unspecified HF chronicity, unspecified heart failure type (CMS/HCC) Edema of foot Edema documented in this encounter Additional Health Concerns Assessment Noted Time PHQ-9 Depression Total Score: 7 08/29/20 22 10:26 AM EST documented as of this encounter Care Teams Event Technician Relationship Specialty Start Date End Date Ayaka Salgado MD 505 [place] [address] PCP - General Internal Medicine 09/15/18 documented as of this encounter
--- OUTSIDE RECORDS SUMMARY | 2025-01-04 09:44 | XMS_ITS | Encounter Summary ---
Author Organization [employer] Address [address] [place] [address] 7 [place] [address] Care Team Providers Care Multiplex Operator Name Role Phone Ayaka Salgado MD Primary Care Provider [phone] Reason for Visit * Reason Onset Date Comments Letter Accomodation 12/12/2022 Encounter Details Date Type Department Care Team ([facility] st Contact Info) Description 12/12/2022 Telephone [facility] CHC MED & PEDS 505 [place] [address] Ayaka Salgado MD 505 [place] [address] Letter Accomodation Social History Tobacco Use Types [...] hisPercocet. Advised message will be forwarded to BEVEL MILL OPERATOR nurse regarding his request. Pt verbalizes understanding. * Telephone Encounter - Abiel Mills - 12/12/2022 9:32 AM EDT Tc from pt requesting an Accomodation letter. Please contact pt at [phone] documented in this encounter Plan of Treatment Upcoming Encounters Date Type Department Care Team ([facility] st Contact Info) Description 02/01/2025 9:00 AM EDT Clinical Support [facility] MED & PEDS 505 [place] [address] Alana Hook, RN 505 [place] [address] 02/22/2025 1:45 PM EDT Office Visit [facility] CHC MED & PEDS 505 [place] [address] Ayaka Salgado MD 505 [place] [address] documented as of this encounter Visit Diagnoses Diagnosis Congestive heart failure, unspecified HF chronicity, unspecified heart failure type (CMS/HCC) Primary osteoarthritis involving multiple joints documented in this encounter Additional Health Concerns Assessment Noted Time PHQ-9 Depression Total Score: 7 08/29/20 22 10:26 AM EST documented as of this encounter Care Teams Multiplex Operator Relationship Specialty Start Date End Date Ayaka Salgado MD 505 [place] [address] PCP - General Internal Medicine 09/15/18 documented as of this encounter
--- OUTSIDE RECORDS SUMMARY | 2025-01-04 09:44 | XMS_ITS | Encounter Summary ---
Author Organization [employer] Address 75 [facility] 7t [place] [address] Care Team Providers Care Pomology Teacher Name Role Phone Ayaka Salgado MD Primary Care Provider [phone] Reason for Visit * Reason Comments Med Refill Encounter Details Date Type Department Care Team ([facility] st Contact Info) Description 06/15/2024 Refill [facility] MEDICINE 230 [place], [place] [phone] Lev Gentile MD 230 [place] [address] Chronic pruritus Social History Tobacco Use Types [...] [facility] 505 [place] [address] Alana Hook, RACHELLE 505 [place] [address] 02/22/2025 1:45 PM EDT Office Visit [facility] MED & PEDS 505 [place] [address] Ayaka Salgado MD 505 [place] [address] documented as of this encounter Visit Diagnoses Diagnosis Chronic pruritus documented in this encounter Additional Health Concerns Assessment Noted Time PHQ-9 Depression Total Score: 7 08/29/20 22 10:26 AM EST documented as of this encounter Care Teams Pomology Teacher Relationship Specialty Start Date End Date Ayaka Salgado MD 505 [place] [address] PCP - General Internal Medicine 09/15/18 documented as of this encounter
--- OUTSIDE RECORDS SUMMARY | 2025-01-04 09:44 | XMS_ITS | Encounter Summary ---
Author Organization [employer] Address [address] [facility] [address] 7t [place] [address] Care Team Providers Care Inspector Fabric Name Role Phone Ayaka Salgado MD Primary Care Provider [phone] Encounter Details Date Type Department Care Team ([facility] st Contact Info) Description 06/25/2024 Orders Only [facility] CHC MED & PEDS [address] [place] [address] ProviderRan MD Social History Tobacco Use Types [...] [facility] 505 [place] [address] Alana Hook RN 505 [place] [address] 02/22/2025 1:45 PM EDT Office Visit [facility] MED & PEDS 505 [place] [address] Ayaka Salgado MD 505 [place] [address] documented as of this encounter Procedures Procedure [...] documented as of this encounter Care Teams Inspector Fabric Relationship Specialty Start Date End Date Ayaka Salgado MD 505 [place] [address] PCP - General Internal Medicine 09/15/18 documented as of this encounter
--- OUTSIDE RECORDS SUMMARY | 2025-01-04 09:44 | XMS_ITS ---
Author Organization [employer] [facility] Address [address] [place] [address] 7 [place] [address] Care Team Providers Care Director Inpatient Headache Program Name Role Phone Ayaka Salgado MD Primary Care Provider [phone] CABLE MACHINE OPERATOR Status:Enrolled (Active) Start date:12/20/2022 Enrollment date:12/20/2022 Case Team Name Relationship Phone Alana Hook RN Registered Nurse(Responsible S taff) Continued Care and Services Coordination
--- OUTSIDE RECORDS SUMMARY | 2025-01-04 09:44 | XMS_ITS | Clinical Summary ---
Author Organization [facility] Address [address] [facility] [address] [place] [phone] Phone Care Team Providers Care Liner Worker Name Role Phone Jayme Salgado MD Primary Care Provider [phone] Allergies Active Allergy Reactions Criticality Noted Date [...] patient's age to complete this topic Insurance [facility] Medicare [facility] Medicare Care Teams Liner Worker Relationship Specialty Start Date End Date Jayme Salgado MD [address] [place], [place] [address]Dee MS PCP - General 09/25/20
--- OUTSIDE RECORDS SUMMARY | 2025-01-04 09:44 | XMS_ITS | Encounter Summary ---
Author Organization [employer] Address 75 [facility] 7 [place] [address] Care Team Providers Care Intensive Care Unit Nurse Name Role Phone Ayaka Salgado MD Primary Care Provider [phone] Reason for Visit * Reason Onset Date Comments Med Refill 05/11/2024 Encounter Details Date Type Department Care Team ([facility] st Contact Info) Description 05/11/2024 Telephone [facility] MEDICINE 230 [place] [address] Ayaka Salgado MD 505 [facility] [place] [address] Med Refill Social History Tobacco Use Types [...] 5-325 MG tablet To be sent to: [facility] documented in this encounter Plan of Treatment Upcoming Encounters Date Type Department Care Team ([facility] st Contact Info) Description 02/01/2025 9:00 AM EDT Clinical Support [facility] MED & PEDS 505 [place] [address] Alana Hook RN 505 [place] [address] 02/22/2025 1:45 PM EDT Office Visit [facility] MED & PEDS 505 [place] [address] Ayaka Salgado MD 505 [place] [address] documented as of this encounter Visit Diagnoses Not on filedocumented in this encounter Additional Health Concerns Assessment Noted Time PHQ-9 Depression Total Score: 7 08/29/20 22 10:26 AM EST documented as of this encounter Care Teams Intensive Care Unit Nurse Relationship Specialty Start Date End Date Ayaka Salgado MD [address] [place] [address] PCP - General Internal Medicine 09/15/18 documented as of this encounter
--- OUTSIDE RECORDS SUMMARY | 2025-01-04 09:44 | XMS_ITS | Encounter Summary ---
Author Organization [employer] Address 75 [facility] 7 [place] [address] Care Team Providers Care Rigging Man Name Role Phone Ayaka Salgado MD Primary Care Provider [phone] Reason for Visit * Reason Onset Date Comments Med Refill 09/29/2024 Encounter Details Date Type Department Care Team (Late st Contact Info) Description 09/29/2024 Refill [facility] MEDICINE 230 [place] [address] Ayaka Saglado MD 505 [facility] [place] [phone] Arthropathy (Primary Dx) Social History Tobacco Use [...] 5-325 MG tablet To be sent to: [facility][id number] [place], [place] - [facility] [address] [facility] documented in this encounter Plan of Treatment Upcoming Encounters Date Type Department Care Team ([facility] st Contact Info) Description 02/01/2025 9:00 AM EDT Clinical Support [facility] MED & PEDS 505 [place] [address] Alana Hook RN 505 [place] [address] 02/22/2025 1:45 PM EDT Office Visit [facility] MED & PEDS 505 [place] [address] Ayaka Salgado MD 505 [place] [address] documented as of this encounter Visit Diagnoses Diagnosis Arthropathy- Primary Unspecified arthropathy, site unspecified documented in this encounter Additional Health Concerns Assessment Noted Time PHQ-9 Depression Total Score: 7 08/29/20 22 10:26 AM EST documented as of this encounter Care Teams Rigging Man Relationship Specialty Start Date End Date Ayaka Salgado MD 505 [place] [address] PCP - General Internal Medicine 09/15/18 documented as of this encounter
--- OUTSIDE RECORDS SUMMARY | 2025-01-04 09:44 | XMS_ITS | Encounter Summary ---
Author Organization [employer] Address [address] [place] [address] 7 [place] [address] Care Team Providers Care Screw Machine Tender Name Role Phone Ayaka Salgado MD Primary Care Provider [phone] Reason for Visit * Reason Onset Date Comments Med Refill 12/12/2022 Encounter Details Date Type Department Care Team ([facility] st Contact Info) Description 12/12/2022 Telephone [facility] CHC MED & PEDS 505 [place] [address] Ayaka Salgado MD 505 [place] [address] Med Refill Social History Tobacco Use Types [...] (Norvasc) 5 MG tablet Please sent to [facility][id number] - [place], [place] - [address] [facility] documented in this encounter Plan of Treatment Upcoming Encounters Date Type Department Care Team ([facility] st Contact Info) Description 02/01/2025 9:00 AM EDT Clinical Support [facility] MED & PEDS 505 [place] [address] Alana Hook, RN 505 [place] [address] 02/22/2025 1:45 PM EDT Office Visit [facility] MED & PEDS 505 [place] [address] Ayaka Salgado MD 505 [place] [address] documented as of this encounter Visit Diagnoses Not on filedocumented in this encounter Additional Health Concerns Assessment Noted Time PHQ-9 Depression Total Score: 7 08/29/20 22 10:26 AM EST documented as of this encounter Care Teams Screw Machine Tender Relationship Specialty Start Date End Date Ayaka Salgado MD 505 [place] [address] PCP - General Internal Medicine 09/15/18 documented as of this encounter
--- OUTSIDE RECORDS SUMMARY | 2025-01-04 09:44 | XMS_ITS | Encounter Summary ---
Author Organization [employer] Address 75 [facility] 7 [place] [address] Care Team Providers Care Development Director Name Role Phone Ayaka Salgado MD Primary Care Provider [phone] Reason for Visit * Reason Onset Date Comments Med Refill 12/01/2023 Encounter Details Date Type Department Care Team ([facility] st Contact Info) Description 12/01/2023 Telephone [facility] MEDICINE 230 [place] [address] Ayaka Salgado MD 505 [facility] [place] [address] Med Refill Social History Tobacco Use Types [...] 10 MG tablet To be sent to: [id number] - [place] - [address] [facility] documented in this encounter Plan of Treatment Upcoming Encounters Date Type Department Care Team ([facility] st Contact Info) Description 02/01/2025 9:00 AM EDT Clinical Support [facility] MED & PEDS 505 [place] [address] Alana Hook RN 505 [place] [address] 02/22/2025 1:45 PM EDT Office Visit [facility] MED & PEDS 505 [place] [address] Ayaka Salgado MD 505 [place] [address] documented as of this encounter Visit Diagnoses Not on filedocumented in this encounter Additional Health Concerns Assessment Noted Time PHQ-9 Depression Total Score: 7 08/29/20 22 10:26 AM EST documented as of this encounter Care Teams Development Director Relationship Specialty Start Date End Date Ayaka Salgado MD [address] [place] [address] PCP - General Internal Medicine 09/15/18 documented as of this encounter
--- OUTSIDE RECORDS SUMMARY | 2025-01-04 09:44 | XMS_ITS | Encounter Summary ---
Author Organization [employer] Address [address] [facility] 7t [place] [address] Care Team Providers Care Certified Wellness Program Manager Name Role Phone Ayaka Salgado MD Primary Care Provider [phone] Encounter Details Date Type Department Care Team ([facility] st Contact Info) Description 05/26/2024 Orders Only [facility] MED & PEDS [address] [place] [address] Ayaka Salgado MD 505 [place] [address] Simple chronic bronchitis (CMS/HCC) (Primary Dx) Social [...] [facility] 505 [place] [address] Alana Hook, RACHELLE 505 [place] [address] 02/22/2025 1:45 PM EDT Office Visit [facility] MED & PEDS 505 [place] [address] Ayaka Salgado MD 505 [place] [address] documented as of this encounter Visit Diagnoses Diagnosis Simple chronic bronchitis (CMS/HCC)- Primary Simple chronic bronchitis documented in this encounter Additional Health Concerns Assessment Noted Time PHQ-9 Depression Total Score: 7 08/29/20 22 10:26 AM EST documented as of this encounter Care Teams Certified Wellness Program Manager Relationship Specialty Start Date End Date Ayaka Salgado MD 505 [place] [address] PCP - General Internal Medicine 09/15/18 documented as of this encounter
--- OUTSIDE RECORDS SUMMARY | 2025-01-04 09:44 | XMS_ITS | Encounter Summary ---
Author Organization [facility] Address 75 [facility] 7 [place] [address] Care Team Providers Care Personal Fitness Manager Name Role Phone Ayaka Salgado MD Primary Care Provider [phone] Reason for Visit * Reason Onset Date Comments r/s appt 08/23/2022 Encounter Details Date Type Department Care Team (Late st Contact Info) Description 08/23/2022 Telephone [facility] MEDICINE [address] [place] [address] Ayaka Salgado MD 505 [facility] [place] [address] r/s appt Social History Tobacco Use Types [...] appt has been canceled. Please contact at [phone] documented in this encounter Plan of Treatment Upcoming Encounters Date Type Department Care Team (Late Contact Info) Description 02/01/2025 9:00 AM EDT Clinical Support [facility] MED & PEDS 505 [place] [address] Alana Hook, RN 505 [place] [address] 02/22/2025 1:45 PM EDT Office Visit [facility] MED & PEDS 505 [place] [address] Ayaka Salgado MD 505 [place] [address] documented as of this encounter Visit Diagnoses Not on filedocumented in this encounter Care Teams Personal Fitness Manager Relationship Specialty Start Date End Date Ayaka Salgado MD 505 [place] [address] PCP - General Internal Medicine 09/15/18 documented as of this encounter
--- OUTSIDE RECORDS SUMMARY | 2025-01-04 09:44 | XMS_ITS | Encounter Summary ---
Author Organization [employer] Address [address] [facility] 7 [place] [address] Care Team Providers Care Network Lead Name Role Phone Ayaka Salgado MD Primary Care Provider [phone] Reason for Visit * Reason Comments Med Refill Encounter Details Date Type Department Care Team (Late st Contact Info) Description 10/07/2022 Refill [facility] 230 [place] [address] Ayaka Salgado MD 505 [facility] [address] [place] [address] Primary osteoarthritis involving multiple joints Social History [...] Upcoming Encounters Date Type Department Care Team ([facility] st Contact Info) Description 02/01/2025 9:00 AM EDT Clinical Support [facility] MED & PEDS 505 [place] [address] Alana Hook RN 505 [place] [address] 02/22/2025 1:45 PM EDT Office Visit [facility] MED & PEDS 505 [place] [address] Ayaka Salgado MD 505 [place] [address] documented as of this encounter Visit Diagnoses Diagnosis Primary osteoarthritis involving multiple joints documented in this encounter Additional Health Concerns Assessment Noted Time PHQ-9 Depression Total Score: 7 08/29/20 22 10:26 AM EST documented as of this encounter Care Teams Network Lead Relationship Specialty Start Date End Date Ayaka Salgado MD 505 [place] [address] PCP - General Internal Medicine 09/15/18 documented as of this encounter
--- OUTSIDE RECORDS SUMMARY | 2025-01-04 09:44 | XMS_ITS | Encounter Summary ---
Author Organization [facility] [address] [facility] 200 [place] [address] Phone Care Team Providers Care Printed Circuit Boards Beveler Name Role Phone Jayme Salgado MD Primary Care Provider [phone] Reason for Visit * Reason Comments Med Refill Encounter Details Date Type Department Care Team (Late st Contact Info) Description 04/28/2023 Refill [facility] [address] [place] [address] [place] [phone] Mumtaz Childress MD [address] [facility] 204 [place] [address] Type 2 diabetes mellitus with [...] (HCC) documented in this encounter Care Teams Printed Circuit Boards Beveler Relationship Specialty Start Date End Date Jayme Salgado MD [address] [place] [address] PCP - General 09/25/20 documented as of this encounter
--- OUTSIDE RECORDS SUMMARY | 2025-01-04 09:44 | XMS_ITS | Encounter Summary ---
Author Organization [employer] Address 75 [facility] 7 [place] [address] Care Team Providers Care Supervisor Counseling And Guidance Name Role Phone Ayaka Salgado MD Primary Care Provider [phone] Reason for Visit * Reason Onset Date Comments Med Refill 09/06/2024 Encounter Details Date Type Department Care Team ([facility] st Contact Info) Description 09/06/2024 Telephone [facility] MEDICINE 230 [place] [address] Ayaka Salgado MD 505 [facility] [place] [address] Med Refill Social History Tobacco Use Types [...] 8:56 AM EST Medication was sent to [facility] #[id number] on 08/09/24 with 3 refills. * Telephone Encounter - Cleopatra Ortiz - 09/06/2024 8:53 AM EST TC from pt requesting medication refill. Medications needing refill : labetalol (Normodyne) 200 MG tablet To be sent to: [id number] - [place] - [address] [facility] documented in this encounter Plan of Treatment Upcoming Encounters Date Type Department Care Team ([facility] st Contact Info) Description 02/01/2025 9:00 AM EDT Clinical Support [facility] MED & PEDS 505 [facility] [place] [address] Alana Hook, RN [address] [facility] [place] [address] 02/22/2025 1:45 PM EDT Office Visit [facility] MED & PEDS 505 [place] [address] Ayaka Salgado MD 505 [place] [address] documented as of this encounter Visit Diagnoses Not on filedocumented in this encounter Additional Health Concerns Assessment Noted Time PHQ-9 Depression Total Score: 7 08/29/20 22 10:26 AM EST documented as of this encounter Care Teams Supervisor Counseling And Guidance Relationship Specialty Start Date End Date Ayaka Salgado MD 505 [place] [address] PCP - General Internal Medicine 09/15/18 documented as of this encounter
--- OUTSIDE RECORDS SUMMARY | 2025-01-04 09:44 | XMS_ITS | Encounter Summary ---
Author Organization [employer] Address 75 [facility] 7t [place] [address] Care Team Providers Care Cleaner Laboratory Equipment Name Role Phone Ayaka Salgado MD Primary Care Provider [phone] Encounter Details Date Type Department Care Team ([facility] st Contact Info) Description 08/18/2024 Telephone [facility] MEDICINE 230 [place] [address] Ayaka Salgado MD [address] [place] [address] Social History Tobacco Use Types Packs/Day Years [...] [facility] MED & PEDS 505 [place] [address] Alana Hook RN 505 [place] [address] 02/22/2025 1:45 PM EDT Office Visit [facility] MED & PEDS 505 [place] [address] Ayaka Salgado MD 505 [place] [address] documented as of this encounter Visit Diagnoses Not on filedocumented in this encounter Additional Health Concerns Assessment Noted Time PHQ-9 Depression Total Score: 7 08/29/20 22 10:26 AM EST documented as of this encounter Care Teams Cleaner Laboratory Equipment Relationship Specialty Start Date End Date Ayaka Salgado MD 505 [place] [address] PCP - General Internal Medicine 09/15/18 documented as of this encounter
--- OUTSIDE RECORDS SUMMARY | 2025-01-04 09:44 | XMS_ITS | Encounter Summary ---
Author Organization [employer] Address 75 [facility] 7t [place] [address] Care Team Providers Care Seam Finisher Name Role Phone Ayaka Salgado MD Primary Care Provider [phone] Reason for Visit * Reason Comments Med Refill Encounter Details Date Type Department Care Team (Late st Contact Info) Description 03/02/2024 Refill [facility] MEDICINE 230 [place] [address] Ayaka Salgado MD [address] [place] [address] Primary osteoarthritis involving multiple joints Social History [...] AM EDT Clinical Support [facility] MED & PEDS 505 [place] [address] Alana Hook, RACHELLE 505 [place] [address] 02/22/2025 1:45 PM EDT Office Visit [facility] MED & PEDS 505 [place] [address] Ayaka Salgado MD 505 [place] [address] documented as of this encounter Visit Diagnoses Diagnosis Primary osteoarthritis involving multiple joints documented in this encounter Additional Health Concerns Assessment Noted Time PHQ-9 Depression Total Score: 7 08/29/20 22 10:26 AM EST documented as of this encounter Care Teams Seam Finisher Relationship Specialty Start Date End Date Ayaka Salgado MD 505 [place] [address] PCP - General Internal Medicine 09/15/18 documented as of this encounter
--- OUTSIDE RECORDS SUMMARY | 2025-01-04 09:44 | XMS_ITS | Clinical Summary ---
Author Organization [employer] Address [address] [place] [address] 7t [place] [address] Care Team Providers Care Autocad Technician Name Role Phone Ayaka Salgado MD Primary Care Provider [phone] Allergies Active Allergy Reactions Criticality Noted Date [...] split. 120 tablet 025 2025 Active Umeclidinium [place] (Incruse Ellipta) 62.5 MCG/ACT aerosol powderIndications :Chronic [...] MOUTH EVERY 12 HOURS 120 tablet Active zolpidem (Ambien) 10 MG tabletIndications :Primary insomnia Take 1 tablet (10 mg) by mouth if needed at bedtime for sleep. 30 tablet 025 2024 Active simvastatin (Zocor) 20 MG tablet Take 1 tablet (20 mg) by mouth at bedtime. 90 tablet 3 Active oxyCODONE-acetami nophen (Percocet) 5-325 MG tabletIndications :Arthropathy Take 1 tablet by mouth every 6 (six) hours if needed for severe pain. 42 tablet Active simvastatin (Zocor) 20 MG tablet [...] Active Problems Problem Noted Date Diagnosed Date MCC (current) use of opiate analgesic 11/13 Pruritus [...] Encounters Date Type Department Care Team Description 12/31/2024 Refill [facility] MEDICINE 230 [place] [address] Ayaka Salgado MD Arthropathy 12/28/2024 Refill [facility] MEDICINE 230 [place] [address] Ayaka Salgado MD 12/24/2024 Refill [facility] MEDICINE 230 [place] [address] Ayaka Salgado MD Primary insomnia 12/15/2024 Refill [facility] MED & PEDS [address] [place] [address] Ayaka Salgado MD Arthropathy 12/07/2024 Orders Only GENERIC EXTERNAL DATA DEPARTMENT Provider, Generic External Data 11/27/2024 Refill [facility] MED & PEDS 505 [place] [address] Ayaka Salgado MD 11/24/2024 9:00 AM EDT Clinical Support [facility] MED & PEDS 505 [place] [address] Alana Hook RN Back pain, unspecified back location, unspecified back pain laterality, unspecified chronicity (Primary Dx); MCC (current) use of opiate analgesic 11/24/2024 Refill [facility] MED & PEDS 505 [place] [address] Alana Hook RN Primary osteoarthritis of both knees (Primary Dx); Primary insomnia 11/24/2024 Travel 11/23/2024 Orders Only [facility] External Provider, [facility] 11/22/2024 11:00 AM EDT Office Visit [facility] MED & PEDS 505 [place] [address] Ayaka Salgado MD Chronic obstructive pulmonary disease, unspecified COPD type (CMS/HCC) (Primary Dx); BOWMAN (dyspnea on exertion); 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); Primary insomnia 11/22/2024 Travel 11/03/2024 Refill [facility] MEDICINE 230 [place] [address] Ayaka Salgado MD Arthropathy 10/26/2024 Refill [facility] MEDICINE 230 [place] [address] Ayaka Salgado MD Primary osteoarthritis involving multiple joints 10/19/2024 Refill [facility] MEDICINE 230 [place], [place] [phone] Ayaka Salgado MD Arthropathy from Last 3 [...] Clinical Support [facility] MED & PEDS 505 [place] [address] Alana Hook RN 505 [place] [address] 02/22/2025 1:45 PM EDT Office Visit [facility] MED & PEDS 505 [place] [address] Ayaka Salgado MD 505 [place] [address] Health Maintenance Due Date Last Done Comments CT Colonography 1957 Colonoscopy 1957 Colorectal Cancer Screening 1955 FIT DNA/Cologuard 1957 FIT 1957 FOBT 1957 Sigmoidoscopy 1955 Hepatitis C Screening 12/09/1975 DTaP/Tdap/Td Vaccines (1 - Tdap) 09/16/2005 09/15/2005 Zoster Vaccines (1 of 2) 12/09/2007 RSV Patients and Patients Aged 60 years or older (1 - Risk 60-74 years 1-dose series) 2017 COVID-19 Vaccine ( - season) 2024 08/03/2021, [...] SCREEN Routine 11/24/2024 9:21 AM EDT 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 Back pain, [...] (12/07/2024 10:29 AM EDT) Blood Type OP [facility] 12/07/2024 10:2 9 AM EDT 12/07/2024 2:21 PM EDT us Generic External Data Provider LAB BLOOD BANK TE ST ORDERABLES Final Result [facility] [address] [place] [phone] * POCT VESNA-14 Urine Drug Screen (11/24/2024 9:21 AM EDT) Oxycodone Screen, Urine Positive Urine Urine specimen obtained by clean catch procedure / Unknown 11/24/2024 9:21 AM EDT Narrative Alana Hook RN - 11/24/2024 9:21 AM EDT Lot# [id number] Exp: 05-04-26 us Ayaka Salgado MD POINT OF CARE TEST ENTER/ED IT ORDERABLES Final Result * CT Abdomen Pelvis w/o Contrast (11/23/2024 7:16 AM EDT) Anatomical Region Laterality Modality Body, Pelvis, Abdomen Computed T omography 11/23/2024 7:16 AM EDT Narrative 11/23/2024 1:44 PM EDT ? [facility] ?[address] ?[place] [address] ? CT Scan Report ? Signed ? Patient: Snyder Saldivar,Lewis ?MR#: [id number] ?? [id number] ? : 1955 ?Acct:[id number] ? Age/Sex: 68 / M ?ADM Date: 11/23/24 ? Loc: HO.CT ? Attending Dr: Joey Duarte MD ? Ordering Physician: Joey Duarte MD ?? Date of Service: 11/23/24 ?? Procedure(s): CT abdomen pelvis wo IV con ?? Accession Number(s): [id number] ? cc: Ayaka Salgado MD; Jeoy Duarte MD ? Report Number: ?? [id number]: Total DLP = ??562.00 mGy-cm ?? EXAMINATION: [...] DD/ 0716 ? TD/TT: 11/23/24 0749 ? Ferr[place]: ? Procedure Note Evan, Image - 11/23/[address] [place] [address] [address] Scan Report Signed Patient: Lewis GarrisonMR#: [id number] : 8Acct:[id number] Age/Sex: 68 / MADM Date: 11/23/24 Loc: HO.CT Attending Dr: Joey Duarte MD Ordering Physician: Joey Duarte MD Date of Service: 11/23/24 Procedure(s): CT abdomen pelvis wo IV con Accession Number(s): [id number] cc: Ayaka Salgado MD; Joey Duarte MD Report Number: [id number]: Total DLP = 562.00 mGy-cm EXAMINATION: CT [...] Hugh Card MD 11/23/2024 01:33 PM EDT RP Dictated By: Hugh Card MD Signed By: <Electronically signed by Hugh Card MD in OV> 11/23/24 1333 DD/ 0716 TD/TT: 11/23/24 0749 [facility]: [facility] External Provider IMG CT PROCEDURES Final Result * POCT HGB A1C (11/22/2024 11:52 AM EDT) Hemoglobin A1C 5.9 4.0 - 6.0 % QC Media Lot # [id number] Lot# Expiration Date Blood 11/22/2024 11:5 2 AM EDT Ayaka Salgado MD POINT OF CARE TEST ENTER/ED IT ORDERABLES Final Result * POCT Glucose (11/22/2024 11:52 AM EDT) Pathologist [facility] Glucose Blood, POC 192 60 - 200 mg/dL QC Media Lot # [id number] Comment:RANDOM Lot# Expiration Date [id number] Blood Capillary blood specimen / Unknown 11/22/2024 11:52 AM EDT Ayaka Salgado MD POINT OF CARE TEST ENTER/ED IT ORDERABLES Final Result * Diabetes Eye Exam (05/04/2024 12:18 PM EDT) Historical Provider HEALTH MAINTENANCE Final Result * (ABNORMAL) Lipid Panel, Standard (11/12/2023 9:08 AM EST) Triglycerides 55 <150 mg/dL [facility] Comment:Desirable Triglyceri de: less than [...] 190 mg/dL HDL Cholesterol 33(L) >40 mg/dL [facility] Comment:Desirable HDL: great er than 40 mg/dL Note: This HDL assay may give artificially low results in patients with liver disease. Blood Venous blood specimen / Unknown 11/12/2023 9:08 AM EST 11/12/2023 2:41 PM EST Ayaka Salgado MD LAB BLOOD ORDERABLES Final Result [facility] [address] [place] [phone] from Last 3 Months or Most Recently Relevant to Health Maintenance Insurance [facility] MEDICARE ADVANTAGE HMO * Guarantor: Lewis Garrison Account Type Relation to Patient Date of Phone Billing Address Personal/Family Self [address] Care Teams Autocad Technician Relationship Specialty Start Date End Date Ayaka Salgado MD [address] [place] [address] [id number] PCP - General Internal Medicine 09/15/18
== END 2025-01-04 09:47 | disposition home or self-care (01) ==
LOC: HO.HKA 09:08
PROVIDERS: PCP Internal Medicine; Visit Provider Internal Medicine Hypertension Specialist
DX: I13.0 Hypertensive heart and chronic kidney disease with heart failure and stage 1 through stage 4 chronic kidney disease, or unspecified chronic kidney disease (principal); I50.32 Chronic diastolic (congestive) heart failure; N18.4 Chronic kidney disease, stage 4 (severe); D63.1 Anemia in chronic kidney disease; E66.9 Obesity, unspecified; E21.3 Hyperparathyroidism, unspecified; N40.1 Benign prostatic hyperplasia with lower urinary tract symptoms
CPT/HCPCS: 99214

== ENCOUNTER → 2025-01-04 09:07 | Outpatient (BNVA) | payer MEDICARE, SELFPAY | PROVIDERS: PCP Internal Medicine; Visit Provider Internal Medicine Hypertension Specialist | DX: E11.22 Type 2 diabetes mellitus with diabetic chronic kidney disease (principal); I13.0 Hypertensive heart and chronic kidney disease with heart failure and stage 1 through stage 4 chronic kidney disease, or unspecified chronic kidney disease; I50.32 Chronic diastolic (congestive) heart failure; N18.4 Chronic kidney disease, stage 4 (severe); N40.1 Benign prostatic hyperplasia with lower urinary tract symptoms; D63.1 Anemia in chronic kidney disease; E66.9 Obesity, unspecified; E21.3 Hyperparathyroidism, unspecified | CPT/HCPCS: 96372; 99212; Q5106 ==

== ENCOUNTER → 2025-01-11 23:59 | Outpatient (BNV) | payer MEDICARE, SELFPAY ==
--- NOTE | 2025-01-21 17:59 | MHC.OFFVIS ---
Intake Visit Reasons: Remote Cardiomems- St Jr Allergies aspirin Adverse Reaction (Unknown, Verified 01/17/25 08:41) nose bleeds metformin Adverse Reaction (Unknown, Verified 01/17/25 08:41) hypoglycemia warfarin [From Coumadin] Adverse Reaction (Unknown, Verified 01/17/25 08:41) Nose Bleed apixaban Adverse Reaction (Verified 01/17/25 08:41) Nose Bleed clopidogrel Adverse Reaction (Verified 01/17/25 08:41) Nose Bleed [facility] Medical History Obesity (BMI 30-39.9) Elevated brain natriuretic peptide (BNP) level Lower extremity edema COPD (chronic obstructive pulmonary disease) LEONEL (obstructive sleep apnea) Dyspnea on minimal exertion COPD (chronic obstructive pulmonary disease) Smoker Left ventricular hypertrophy Smoking CKD (chronic kidney disease) Obesity Dyslipidemia Hypertension Diabetes mellitus Surgical History No pertinent past surgical history Family History Father No problems noted. Mother Diabetes Family/Other No problems noted. Social History Household Members: Significant Other Housing: Apartment Do you presently have visiting nurse or other home services: No Alcohol intake: current Alcohol intake frequency: a few times a month Patient Tobacco Use Status: Former Tobacco user e-Cigarette/Vaping Use: Never Used Second Hand Smoke Exposure: No Advance Directives Date on File: 08/23/22 service: No Current occupational status: disabled Office Procedures Cardiac Device Check Cardiac Device Check Details: Monitoring period dates: 12/08/24 - 01/11/25 Optimal PA pressure range: PAD goal 16mmhg Procedure code: 14175 BACKGROUND: Lewis is implanted with the CardioMEMS PA Sensor.? I use this technology to monitor PA pressures on a weekly basis to ensure patients are within their optimal range to prevent decompensation.? SUMMARY:? I utilized the remote monitoring platform ([employer]) to set optimal targets for pulmonary artery pressure thresholds as part of acute and chronic management of patient?s heart failure. During the period indicated above, I monitored the patient?s pulmonary artery pressures weekly via trend analysis and notification reports which provide alerts when patient?s PA pressures were outside of range to prompt immediate action in medication changes and communications.? The weekly reports are archived in the [employer] system which serve as a parallel record to document weekly PA pressures, medication changes, and clinical notes. I have reviewed readings on 12/10, 12/17, 12/24, 12/31, 01/07 and 01/11. Readings have ranged between 26-29mmhg. He has advanced CKD and no diuretic changes were made. No significant changes in the last month. 42466 - Remote monitoring of wireless pulmonary artery pressure sensor Procedure code (CPT) selection complete Assessment & Plan Assessment & Plan (1) Presence of CardioMEMS HF system: Code(s): Z95.818 - Presence of other cardiac implants and grafts Category: Medical Plan: monthly report Coding Level of Care Code Procedure Only Diagnoses Presence of CardioMEMS HF system Z95.818 CPT Codes Cardiac Device Check - Cardiac Device 17: 64709 - Remote monitoring of wireless pulmonary artery pressure sensor ([id number])
== END ==
PROVIDERS: PCP Internal Medicine; Visit Provider Nurse Practitioner Family
DX: Z45.09 Encounter for adjustment and management of other cardiac device (principal)
CPT/HCPCS: 93264

== ENCOUNTER 2025-01-17 08:21 | Outpatient (AMB) | payer MEDICARE, SELFPAY ==
--- OUTSIDE RECORDS SUMMARY | 2025-01-17 08:38 | XMS_ITS | Encounter Summary ---
Author Organization [employer] Address 75 [facility] 7 [place] [address] Care Team Providers Care Whey Department Operator Name Role Phone Ayaka Salgado MD Primary Care Provider [phone] Reason for Visit * Reason Onset Date Comments Med Refill 09/06/2024 Encounter Details Date Type Department Care Team ([facility] st Contact Info) Description 09/06/2024 Telephone [facility] MEDICINE [address] [place] [address] Ayaka Salgado MD 505 [facility] [place] [address] Med Refill Social History Tobacco Use Types [...] 8:56 AM EST Medication was sent to [facility] #[id number] on 08/09/24 with 3 refills. * Telephone Encounter - Cleopatra Ortiz - 09/06/2024 8:53 AM EST TC from pt requesting medication refill. Medications needing refill : labetalol (Normodyne) 200 MG tablet To be sent to: [facility] #[id number] - [place] - [address] [facility] documented in this encounter Plan of Treatment Upcoming Encounters Date Type Department Care Team ([facility] st Contact Info) Description 02/01/2025 9:00 AM EDT Clinical Support [facility] MED & PEDS 505 [facility] [place] [address] Alana Hook, RN [address] [place] [address] 02/22/2025 1:45 PM EDT Office Visit [facility] MED & PEDS 505 [place] [address] Ayaka Salgado MD 505 [place] [address] documented as of this encounter Visit Diagnoses Not on filedocumented in this encounter Additional Health Concerns Assessment Noted Time PHQ-9 Depression Total Score: 7 08/29/20 22 10:26 AM EST documented as of this encounter Care Teams Whey Department Operator Relationship Specialty Start Date End Date Ayaka Salgado MD 505 [place] [address] PCP - General Internal Medicine 09/15/18 documented as of this encounter
--- OUTSIDE RECORDS SUMMARY | 2025-01-17 08:38 | XMS_ITS | Referral Summary ---
Author Organization [facility] Address [address] [place] [address] Care Team Providers Care Manager Forms Name Role Phone Ayaka Salgado Primary Care Provider [phone] Encounters Date Type Department Care Team Description 11/24/2024 Orders Only [facility] Transplant Department [address] [place], [place] [phone] Shima Springer RN Pre-transplant evaluation for end stage renal disease (Primary Dx); Chronic kidney disease, stage V 11/23/2024 Telephone [facility] Transplant Department [address] [place], [place] [phone] Shima Springer, pre sales technical consultant - Kidney Txp from Last 3 Months [...] Info) Description 08/02/2025 8:20 AM EST Follow-Up [facility] Renal Transplant [address] [place] [address] Joey Duarte MD [address] [place] [address] 08/02/2025 9:00 AM EST Social Work [facility] Renal Transplant [address] [place] [address] Susan Babb LICSW [address] [place] [address] Procedures * Due to [place] state law, [...] to Health Maintenance Results * Due to [place] state law, [...] 0.0 /100 WBCs 07/29/2024 1:35 PM EST [facility] nRBC # <0.01 <0.01 10*3/uL 07/29/2024 1:35 PM EST [facility] Blood Structure of peripheral vein / Unknown Venipuncture / Unknown 07/29/2024 12:57 PM EST 07/29/2024 1:29 PM EST Joey Duarte MD LAB BLOOD ORDERABLES María l Result [facility] [address] [place] [address], * Hepatitis C Antibody w/Reflex to PCR (07/29/2024 12:57 PM EST) Hepatitis C Antibody NON-REACT [place] NON-REACT [place] 07/30/2024 3:03 AM EST [facility] Comment: HCV antibody was non-reactive. There is no laboratory evidence of HCV infection. In most cases, no further action is required. However, if recent HCV exposure is suspected, a test for HCV RNA (test code 06532) is suggested. For additional information please refer to http://education.ZAP/faq/DEX53q5 (This link is being provided for informational/ educational purposes only.) Blood Structure of peripheral vein / Unknown Venipuncture / Unknown 07/29/2024 12:57 PM EST 07/29/2024 1:32 PM EST Narrative [facility] 07/30/2024 3:03 AM EST [facility] Received Date: Joey Duarte MD LAB BLOOD ORDERABLES María l Result [facility] [address] [facility] 3rd Floor, [place] [address], [place] [phone] [facility] [address] [facility] 3rd Floor, [place] [address], [place] [phone] * Phosphorus (07/29/2024 12:57 PM EST) Phosphorus 4.5 2.5 - 4.5 mg/dL 07/29/2024 2:00 PM EST [facility] Blood Structure of peripheral vein / Unknown Venipuncture / Unknown 07/29/2024 12:57 PM EST 07/29/2024 1:29 PM EST Joey Duarte MD LAB BLOOD ORDERABLES María l Result [facility] [address] [place] [phone], * (ABNORMAL) Hemoglobin A1c (07/29/2024 12:57 PM EST) Hemoglobin A1C 6.7(H) <5.7 % of total Hgb 07/30/2024 1:59 AM [facility] Comment: For someone without known diabetes, a [...] (MG/DL) 146 mg/dL 07/30/2024 1:59 AM EST [facility] (MMOL/L) 8.1 mmol/L 07/30/2024 1:59 AM [facility] Blood Structure of peripheral vein / Unknown Venipuncture / Unknown 07/29/2024 12:57 PM EST 07/29/2024 1:32 PM EST Narrative [facility] - 07/30/2024 1:59 AM EST [facility] Received Date: Joey Duarte MD LAB BLOOD ORDERABLES María l Result [facility] [address], [address] [place] [address], [place] [phone] [facility] [address], [address] [place] [address], [place] [phone] from Last 3 Months or Most Recently Relevant to Health Maintenance Insurance [facility] REPLACE AAR [facility] MCR REPLACE [facility] Advance Directives Documents on File Type Date Recorded Patient Tugboat Dispatcher Expl [facility] Health Care Proxy 08/05/2024 4:14 PM - Care Teams Manager Forms Relationship Specialty Start Date End Date Ayaka Salgado [address] [place] [address] PCP - General Internal Medicine 07/29/24
--- OUTSIDE RECORDS SUMMARY | 2025-01-17 08:38 | XMS_ITS ---
Author Organization [facility] Address [address] [place] [address] Care Team Providers Care Paste Plant Supervisor Name Role Phone Ayaka Salgado Primary Care Provider Transplant Episode Kidney Candidate [facility] ([place], [place]) - [facility] Evaluation began on 07/29/2024 Marked as Active on 07/29/2024 Kidney CoordinatorShima Springer RN Email: N/A Scores Score Value Updated Exceptions/Reas ons CPRA Not available EPTS (Calc) 44 01/17/2025 [place] Organ Diagnosis Organ Primary Contributory Kidney Diabetes Mellitus - Type II Care Team Name Role Phone Fax Email Shima Springer RN Kidney Coordinator [phone] N/A Ross Baldwin Referring Physician [phone] N/A Events Pre-Transplant Referred: 07/19/2024 Evaluation began: 07/29/2024
--- OUTSIDE RECORDS SUMMARY | 2025-01-17 08:38 | XMS_ITS | Clinical Summary ---
Author Organization [employer] Address [address] [place] [address] 7t [place] [address] Care Team Providers Care Adjunct Professor Of English Name Role Phone Ayaka Salgado MD Primary Care Provider [phone] Allergies Active Allergy Reactions Criticality Noted Date [...] split. 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 11/13 Pruritus [...] Type Department Care Team Description 12/31/2024 Refill [facility] [address] [place] [address] Ayaka Salgado MD Arthropathy 12/28/2024 Refill [facility] [address] [place] [address] Ayaka Salgado MD 12/24/2024 Refill [facility] [address] [place] [address] Ayaka Salgado MD Primary insomnia 12/15/2024 Refill [facility] [address] [place] [address] Ayaka Salgado MD Arthropathy 12/07/2024 Orders Only GENERIC EXTERNAL DATA DEPARTMENT Provider, Generic External Data 11/27/2024 Refill [facility] 505 [place] [address] Ayaka Salgado MD 11/24/2024 9:00 AM EDT Clinical Support [facility] [address] [place] [address] Alana Hook RN Back pain, unspecified back location, unspecified back pain laterality, unspecified chronicity (Primary Dx); FDC (current) use of opiate analgesic 11/24/2024 Refill [facility] [address] [place] [address] Alana Hook RN Primary osteoarthritis of both knees (Primary Dx); Primary insomnia 11/24/2024 Travel 11/23/2024 Orders Only [facility] External Provider, [facility] 11/22/2024 11:00 AM EDT Office Visit [facility] [address] [place] [address] Ayaka Salgado MD Chronic obstructive pulmonary disease, unspecified COPD type (CMS/HCC) (Primary Dx); BOWMAN (dyspnea on exertion); 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); Primary insomnia 11/22/2024 Travel 11/03/2024 Refill [facility] [address] [place] [address] Ayaka Salgado MD Arthropathy 10/26/2024 Refill [facility] [address] [place] [address] Ayaka Salgado MD Primary osteoarthritis involving multiple joints from Last 3 Months Immunizations Name Administration [...] Description 02/01/2025 9:00 AM EDT Clinical Support [facility] [address] [place] [address] Alana Hook, RACHELLE [address] [place] [address] 02/22/2025 1:45 PM EDT Office Visit [facility] [address] [place] [address] Ayaka Salgado MD [address] [place] [address] Health Maintenance Due Date Last Done Comments [...] 11/22/2024, 025 Diabetes: Hemoglobin A1C 05/25/2025 025, 07/29/2024, 07/12/2024, Additional history exists Pneumococcal Vaccine: 50+ Years [...] DRUG SCREEN Routine 11/24/2024 9:21 AM EDT 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 Back pain, [...] (12/07/2024 10:29 AM EDT) Blood Type OP [facility] 12/07/2024 10:2 9 AM EDT 12/07/2024 2:21 PM EDT us Generic External Data Provider LAB BLOOD BANK TE ST ORDERABLES Final Result [facility] [address] [place] [address] [phone] * POCT VESNA-14 Urine Drug Screen (11/24/2024 9:21 AM EDT) Oxycodone Screen, Urine Positive Urine Urine specimen obtained by clean catch procedure / Unknown 11/24/2024 9:21 AM EDT Narrative Alana Hook RN - 11/24/2024 9:21 AM EDT Lot# [id number] Exp: 05-04-26 us Ayaka Salgado MD POINT OF CARE TEST ENTER/ED IT ORDERABLES Final Result * CT Abdomen Pelvis w/o Contrast (11/23/2024 7:16 AM EDT) Anatomical Region Laterality Modality Body, Pelvis, Abdomen Computed T omography 11/23/2024 7:16 AM EDT Narrative 11/23/2024 1:44 PM EDT ? [facility] ?[address] ?[place] [address] ? CT Scan Report ? Signed ? Patient: Snyder Saldivar,Lewis ?MR#: [id number] ?? [id number] ? : 1955 ?Acct:[id number] ? Age/Sex: 68 / M ?ADM Date: 03/11/25 ? Loc: HO.CT ? Attending Dr: Joey Duarte MD ? Ordering Physician: Joey Duarte MD ?? Date of Service: 11/23/24 ?? Procedure(s): CT abdomen pelvis wo IV con ?? Accession Number(s): [id number] ? cc: Ayaka Salgado MD; Joey Duarte MD ? Report Number: ?? [id number]: Total DLP = ??562.00 mGy-cm ?? EXAMINATION: [...] DD/ 0716 ? TD/TT: 11/23/24 0749 ? Gas Station Supervisor: ? Procedure Note Donotuseinterpreter, Image - 11/23/[address] [address] [address] Scan Report Signed Patient: Jose R Garrison#: [id number] : 8Acct:[id number] Age/Sex: 68 / MADM Date: 11/23/24 Loc: HO.CT Attending Dr: Joey Duarte MD Ordering Physician: oJey Duarte MD Date of Service: 11/23/24 Procedure(s): CT abdomen pelvis wo IV con Accession Number(s): [id number] cc: Ayaka Salgado MD; Joey Duarte MD Report Number: [id number]: Total DLP = 562.00 mGy-cm EXAMINATION: CT [...] 11/23/24 1333 DD/ 0716 TD/TT: 11/23/24 0749 Gas Station Supervisor: [facility] External Provider IMG CT PROCEDURES Final Result [...] - 200 mg/dL QC Media Lot # [id number] Comment:RANDOM Lot# Expiration Date Blood Capillary blood specimen / Unknown 11/22/2024 11:52 AM EDT Ayaka Salgado MD POINT OF CARE TEST ENTER/ED IT ORDERABLES Final Result * Diabetes Eye Exam (05/04/2024 12:18 PM EDT) Historical Provider HEALTH MAINTENANCE Final Result * (ABNORMAL) Lipid Panel, Standard (11/12/2023 9:08 AM EST) Triglycerides 55 <150 mg/dL [facility] Comment:Desirable Triglyceri de: less than 150 mg/dLBorderline High Triglyceride 150-199 mg/dLHigh Triglyceride: 200-499 mg/dLVery High Triglyceride: greater than or equal to 5OO mg/dL Cholesterol 101 <200 mg/dL [facility] Comment:Desirable Cholestero l: less than 200 mg/dLBorderline High Cholesterol: 200-239 mg/dLHigh Cholesterol: greater than 239 mg/dL LDL Cholesterol Calculated 57 <100 mg/dL [facility] Comment:Desirable LDL: less than 100 mg/dLNear Optimal/Above Optimal LDL: 110- 129 mg/dLBorderline High LDL: 130-159 mg/dLHigh LDL: 160-189 mg/dLVery High LDL: greater than or equal to 190 mg/dL HDL Cholesterol 33(L) >40 mg/dL [facility] Comment:Desirable HDL: great er than 40 mg/dL Note: This HDL assay may give artificially low results in patients with liver disease. Blood Venous blood specimen / Unknown 11/12/2023 9:08 AM EST 11/12/2023 2:41 PM EST Ayaka Salgado MD LAB BLOOD ORDERABLES Final Result [facility] [address] [place] [address] [phone] from Last 3 Months or Most Recently Relevant to Health Maintenance Insurance [facility] Member Subscriber Plan / Payer (Ef fective 2022-Present) Name:Claudio HernándezgaPabloFabio Relation to Subscriber:Self Name:Lewis Garrison A Payer ID:Not on file Group ID:Not on file Type:Medicaid Address: [address] [place] [address] AARP MEDICARE ADVANTAGE O Care Teams Adjunct Professor Of English Relationship Specialty Start Date End Date Ayaka Salgado MD [address] [place] [address] [place] [address] PCP - General Internal Medicine 09/15/18
--- OUTSIDE RECORDS SUMMARY | 2025-01-17 08:38 | XMS_ITS | Encounter Summary ---
Author Organization [employer] Address [address] [facility] 7 [place] [address] Care Team Providers Care Railway Shunter Name Role Phone Ayaka Salgado MD Primary Care Provider [phone] Reason for Visit * Reason Onset Date Comments Med Refill 09/29/2024 Encounter Details Date Type Department Care Team (Late st Contact Info) Description 09/29/[address] [facility] [address] [place] [address] Ayaka Salgado MD 505 [facility] [place] [phone] Arthropathy (Primary Dx) Social History Tobacco Use [...] 5-325 MG tablet To be sent to: [id number] [place], [place] - [employer] [facility] documented in this encounter Plan of Treatment Upcoming Encounters Date Type Department Care Team ([facility] st Contact Info) Description 02/01/2025 9:00 AM EDT Clinical Support [facility]EDS [address] [place] [address] Alana Hook RN [address] [place] [address] 02/22/2025 1:45 PM EDT Office Visit [facility] PED[facility] [address] [place] [address] Ayaka Salgado MD [address] [place] [address] documented as of this encounter Visit Diagnoses Diagnosis Arthropathy- Primary Unspecified arthropathy, site unspecified documented in this encounter Additional Health Concerns Assessment Noted Time PHQ-9 Depression Total Score: 7 08/29/20 22 10:26 AM EST documented as of this encounter Care Teams Railway Shunter Relationship Specialty Start Date End Date Ayaka Salgado MD [address] [place] [address] PCP - General Internal Medicine 09/15/18 documented as of this encounter
--- OUTSIDE RECORDS SUMMARY | 2025-01-17 08:38 | XMS_ITS | Encounter Summary ---
Author Organization [facility] Address [address] [place] [address] Care Team Providers Care Pharmacy Intake Coordinator Name Role Phone Ayaka Salgado Primary Care Provider Encounter Details Date Type Department Care Team (Late st Contact Info) Description 07/29/2024 Orders Only [facility] [address] [place] [address] Waqas Garnett MD [address] [place] [address] Social History Tobacco Use Types Packs/Day Years [...] Description 08/02/2025 8:20 AM EST Follow-Up [facility] Transplant [address] [place] [address] Joey Duarte MD [address] [place] [address] 08/02/2025 9:00 AM EST Social Work [facility] Transplant [address] [place] [address] Susan Babb LICSW [address] [place] [address] documented as of this encounter Visit Diagnoses Not on filedocumented in this encounter Care Teams Pharmacy Intake Coordinator Relationship Specialty Start Date End Date Ayaka Salgado [address] [place] [address] PCP - General Internal Medicine 07/29/24 documented as of this encounter
--- OUTSIDE RECORDS SUMMARY | 2025-01-17 08:38 | XMS_ITS | Encounter Summary ---
Author Organization [employer] Address [address] [facility] 7t [place] [address] Care Team Providers Care Ophthalmic Dispenser Name Role Phone Ayaka Salgado MD Primary Care Provider [phone] Encounter Details Date Type Department Care Team ([facility] st Contact Info) Description 08/20/2024 Orders Only [facility] MED & PEDS [address] [place] [address] Ayaka Salgado MD [address] [place] [address] Social History Tobacco Use Types Packs/Day Years [...] [facility] [address] [place] [address] Alana Hook RN [address] [place] [address] 02/22/2025 1:45 PM EDT Office Visit [facility]EDS [address] [place] [address] Ayaka Salgado MD [address] [place] [address] documented as of this encounter Visit Diagnoses Not on filedocumented in this encounter Additional Health Concerns Assessment Noted Time PHQ-9 Depression Total Score: 7 08/29/20 22 10:26 AM EST documented as of this encounter Care Teams Ophthalmic Dispenser Relationship Specialty Start Date End Date Ayaka Salgado MD [address] [place] [address] PCP - General Internal Medicine 09/15/18 documented as of this encounter
--- OUTSIDE RECORDS SUMMARY | 2025-01-17 08:38 | XMS_ITS | Encounter Summary ---
Author Organization [employer] Address [address] [place] [address] 7 [place] [address] Care Team Providers Care Wrap Turner Name Role Phone Ayaka Salgado MD Primary Care Provider [phone] Reason for Visit * Reason Comments Med Refill Encounter Details Date Type Department Care Team ([facility] Contact Info) Description 02/24/2023 Refill [facility] & PEDS [address] [place] [address] Ayaka aSlgado MD [address] [place] [address] Social History Tobacco Use Types Packs/Day Years [...] Upcoming Encounters Date Type Department Care Team ([facility] st Contact Info) Description 02/01/2025 9:00 AM EDT Clinical Support [facility] [address] [place] [address] Alana Hook, RACHELLE [address] [place] [address] 02/22/2025 1:45 PM EDT Office Visit [facility] [address] [place] [address] Ayaka Salgado MD [address] [place] [address] documented as of this encounter Visit Diagnoses Not on filedocumented in this encounter Additional Health Concerns Assessment Noted Time PHQ-9 Depression Total Score: 7 08/29/20 22 10:26 AM EST documented as of this encounter Care Teams Wrap Turner Relationship Specialty Start Date End Date Ayaka Salgado MD [address] [place] [address] PCP - General Internal Medicine 09/15/18 documented as of this encounter
--- OUTSIDE RECORDS SUMMARY | 2025-01-17 08:38 | XMS_ITS | Clinical Summary ---
Author Organization [facility] Address [address] [place] [address] Care Team Providers Care Hand Mica Plate Layer Name Role Phone DamianAyaka Primary Care [...] Department Care Team Description 11/24/2024 Orders Only [facility] Transplant Department [address] [place] [address] Shima Springer RN Pre-transplant evaluation for end stage renal disease (Primary Dx); Chronic kidney disease, stage V 11/23/2024 Telephone [facility] Transplant Department [address] [place] [address] [phone] Shima Springer automobile service station mechanic - Kidney Txp from Last 3 Months [...] Info) Description 08/02/2025 8:20 AM EST Follow-Up [facility] Renal Transplant [address] [place] [address] Joey Duarte MD [address] [place] [address] 08/02/2025 9:00 AM EST Social Work [facility] Renal Transplant [address] [place] [address] Susan Babb LICSW [address] [place] [address] Health Maintenance Due Date Last Done Comments [...] complete this topic Procedures * Due to [place] state law, this organization might not be [...] to Health Maintenance Results * Due to [place] state law, this organization might not be [...] MD LAB BLOOD ORDERABLES María l Result [facility] [address] [place] [address], * Hepatitis C Antibody w/Reflex to PCR (07/29/2024 12:57 PM EST) Hepatitis C Antibody NON-REACT [place] NON-REACT [place] 07/30/2024 3:03 AM EST [employer] [facility] Comment: HCV antibody was non-reactive. There is no laboratory evidence of HCV infection. In most cases, no further action is required. However, if recent HCV exposure is suspected, a test for HCV RNA (test code 45660) is suggested. For additional information please refer to http://education.Voxli/faq/AWX52d7 (This link is being provided for informational/ educational purposes only.) Blood Structure of peripheral vein / Unknown Venipuncture / Unknown 07/29/2024 12:57 PM EST 07/29/2024 1:32 PM EST Narrative [facility] - 07/30/2024 3:03 AM EST [facility] Received Date: Joey Duarte MD LAB BLOOD ORDERABLES María l Result Performing Organization Address City/[facility]/ZIP Co de Phone Number [facility] [address] [facility] 3rd Floor, [place] [address], [place] [phone] [employer] [facility] [address] [facility] 3rd Floor, [place] [address], [place] [phone] * Phosphorus (07/29/2024 12:57 PM EST) Phosphorus 4.5 2.5 - 4.5 mg/dL 07/29/2024 2:00 PM EST [facility] Blood Structure of peripheral vein / Unknown Venipuncture / Unknown 07/29/2024 12:57 PM EST 07/29/2024 1:29 PM EST Joey Duarte MD LAB BLOOD ORDERABLES María l Result [facility] [employer] [facility] [address] [place] [address], [place] * (ABNORMAL) Hemoglobin A1c (07/29/2024 12:57 PM EST) Hemoglobin A1C 6.7(H) <5.7 % of total Hgb 07/30/2024 1:59 AM EST [employer] Comment: For someone without known diabetes, a [...] (MG/DL) 146 mg/dL 07/30/2024 1:59 AM EST [employer] eAG (MMOL/L) 8.1 mmol/L 07/30/2024 1:59 AM EST [employer] Blood Structure of peripheral vein / Unknown Venipuncture / Unknown 07/29/2024 12:57 PM EST 07/29/2024 1:32 PM EST Narrative [facility] - 07/30/2024 1:59 AM EST [facility] Received Date: Joey Duarte MD LAB BLOOD ORDERABLES María l Result [facility] [address] [facility] 3rd Floor, [place] [address], [place] [phone] [facility] [address] [facility] 3rd Floor, [place] [address], [place] [phone] from Last 3 Months or Most Recently Relevant to Health Maintenance Insurance [facility] [place] [address] [facility] AARP [place] [id number] [facility] [place] [address] [facility] [place] [id number] Advance Directives Documents on File Type Date Recorded Patient Bolter Helper [employer] Health Care Proxy 08/05/2024 4:14 PM 07-16 Care Teams Hand Mica Plate Layer Relationship Specialty Start Date End Date Ayaka Salgado [address] [place] [address] PCP - General Internal Medicine 07/29/24
--- OUTSIDE RECORDS SUMMARY | 2025-01-17 08:38 | XMS_ITS | Encounter Summary ---
Author Organization [employer] Address [address] [facility] [address] 7t [place] [address] Care Team Providers Care Director Of Infection Control Name Role Phone Ayaka Salgado MD Primary Care Provider [phone] Encounter Details Date Type Department Care Team ([facility] st Contact Info) Description 06/25/2024 Orders Only [facility]C MED & PEDS [address] [place] [address] ProviderRan MD Social History Tobacco Use Types [...] Description 02/01/2025 9:00 AM EDT Clinical Support [facility] MED & PEDS [address] [place] [address] Alana Hook RN [address] [place] [address] 02/22/2025 1:45 PM EDT Office Visit [facility] MED [facility] PEDS [address] [place] [address] Ayaka Salgado MD [address] [place] [address] documented as of this encounter Procedures Procedure [...] as of this encounter Care Teams Director Of Infection Control Relationship Specialty Start Date End Date Ayaka Salgado MD [address] [place] [address] PCP - General Internal Medicine 09/15/18 documented as of this encounter
--- OUTSIDE RECORDS SUMMARY | 2025-01-17 08:38 | XMS_ITS | Encounter Summary ---
Author Organization [facility] [address] [facility] [address] [place] [address] Phone Care Team Providers Care Building Maintenance Mechanic Name Role Phone Jayme Salgado MD Primary Care Provider [phone] Reason for Visit * Reason Comments Med Refill Encounter Details Date Type Department Care Team (Late st Contact Info) Description 04/28/2023 Refill [facility] [address] [place] [place] [phone] Mumtaz Childress MD [address] [facility] [address] [place] [address] Type 2 diabetes mellitus with [...] (HCC) documented in this encounter Care Teams Building Maintenance Mechanic Relationship Specialty Start Date End Date Jayme Salgado MD [address] [place] [address] PCP - General 09/25/20 documented as of this encounter
--- OUTSIDE RECORDS SUMMARY | 2025-01-17 08:38 | XMS_ITS | Clinical Summary ---
Author Organization [facility] Address [address] [facility] [address] [place] [address] Phone Care Team Providers Care Pet Sitter Name Role Phone Jayme Salgado MD Primary Care Provider [phone] Allergies Active Allergy Reactions Criticality Noted Date [...] patient's age to complete this topic Insurance [facility] Medicare [facility] Medicare Care Teams Pet Sitter Relationship Specialty Start Date End Date Jayme Salgado MD [address] [place], [place] [address] PCP - General 09/25/20
[2025-01-17 08:39] VITALS: BP 120/62; PULSE 57; BMI 35.9
--- NOTE | 2025-01-17 08:39 | MHC.OFFVIS ---
Vital Signs 01/17/25 08:39 Height 5 ft 7 in Weight 229 lb 4.492 oz BMI 35.9 BP 120/62 Blood Pressure Location Rt brachial Position Sitting Pulse 57 Pulse Source Monitor Intake Visit Reasons: 3m follow up Police Service Technician Required: No Allergies aspirin Adverse Reaction (Unknown, Verified 01/17/25 08:41) nose bleeds metformin Adverse Reaction (Unknown, Verified 01/17/25 08:41) hypoglycemia warfarin [From Coumadin] Adverse Reaction (Unknown, Verified 01/17/25 08:41) Nose Bleed apixaban Adverse Reaction (Verified 01/17/25 08:41) Nose Bleed clopidogrel Adverse Reaction (Verified 01/17/25 08:41) Nose Bleed Medication List - Last Reconciled 01/17/25 by ANU Gnozalez acetaminophen (Tylenol) 650 mg PO Q6H PRN albuterol sulfate 90 mcg/actuation (Ventolin HFA) inhalation albuterol sulfate mg inhalation blood-glucose meter (FreeStyle Lite Meter kit) As directed bumetanide 1 mg PO BID calcitriol 0.25 mcg PO DAILY cholecalciferol (vitamin D3) 25 mcg PO Q48H cinacalcet 30 mg PO DAILY clonidine HCl 0.2 mg PO TID gabapentin 300 mg PO TID glimepiride 1 mg PO DAILY hydralazine 100 mg PO TID labetalol 400 mg PO BID lancets (FreeStyle Lancets) As directed lidocaine 5% 1 patch topical DAILY PRN losartan 50 mg PO DAILY melatonin 5 mg PO BEDTIME oxycodone-acetaminophen 5-325 mg 1 tab PO Q8H PRN simvastatin 20 mg PO BEDTIME sitagliptin phosphate (Januvia) 25 mg PO DAILY tiotropium bromide (Spiriva with HandiHaler) 1 cap inhalation DAILY zolpidem 10 mg PO BEDTIME HPI HPI 3m follow up: Details: Lewis is a 69-year-old male with past medical? history of obesity, hypertension, diabetes, chronic kidney disease, smoking, first-degree AV block, right bundle branch block, obstructive sleep apnea, diastolic heart failure, s/p CardioMEMS device, newer finding of persistant atrial fibrillation, declines anticoagulation who presents for follow-up. Today he reports he has been having some fatigue, general weakness and shortness of breath with activity. He he tries to remain active but has been more sedentary overall. He has edema in his legs which has been chronic.. He denies PND, orthopnea. No chest discomfort at rest or with activity. No lightheadedness, presyncope, syncope, falls. 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 He has been taking meds as directed. He still declines blood thinners. In the past he has had significant epistaxis as well as rectal bleeding. He feels very strongly about this and refuses them in spite of stroke risk. He tells me he is scheduled for a Watchman device in the near future. He is aware that he will need to use anticoagulation temporarily following this procedure. He follows closely with Nephrology and is hoping to prevent future hemodialysis. He prefers to have renal transplant and has been to [facility] once already for this reason. His next visit with them is scheduled for July. [facility] Medical History Obesity (BMI 30-39.9) Elevated brain natriuretic peptide (BNP) level Lower extremity edema COPD (chronic obstructive pulmonary disease) LEONEL (obstructive sleep apnea) Dyspnea on minimal exertion COPD (chronic obstructive pulmonary disease) Smoker Left ventricular hypertrophy Smoking CKD (chronic kidney disease) Obesity Dyslipidemia Hypertension Diabetes mellitus Surgical History No pertinent past surgical history Family History Father No problems noted. Mother Diabetes Family/Other No problems noted. Social History Household Members: Significant Other Housing: Apartment Do you presently have visiting nurse or other home services: No Alcohol intake: current Alcohol intake frequency: a few times a month Patient Tobacco Use Status: Former Tobacco user e-Cigarette/Vaping Use: Never Used Second Hand Smoke Exposure: No Advance Directives Date on File: 08/23/22 service: No Current occupational status: disabled Review of Systems Const All systems reviewed & are unremarkable except as noted in HPI and below Reports fatigue ENT Denies dizziness Card Denies chest pain, Denies chest pain at rest, Denies chest pain with activity, Denies rapid heart rate, Denies pedal edema, Denies edema, Denies leg edema, Denies lightheadedness, Denies palpitations, Denies dyspnea, Reports dyspnea on exertion and Denies orthopnea Resp Denies cough, Denies dyspnea and Reports dyspnea on exertion GI Denies hematochezia and Denies change in stool character Musc Denies abnormal gait, Denies limited range of motion, Denies muscle cramps, Reports muscle weakness, Denies numbness, Denies radiating pain into limb, Denies stiffness and Denies tingling Neuro Denies abnormal gait, Denies dizziness, Denies numbness and Denies tingling Endo Reports fatigue and Denies palpitations Physical Exam Vital Signs: Last Vital Signs Pulse 57 01/17/25 08:39 BP 120/62 01/17/25 08:39 BMI result Body Mass Index 35.9 Const General: cooperative, healthy appearing, comfortable and no acute distress Orientation/consciousness: patient oriented x3 Neck Neck: Yes normal visual inspection Resp Effort & Inspection: normal respiratory effort Auscultation: clear to auscultation bilaterally, no rales, no rhonchi and no wheezes Cardio Rate: regular rate Rhythm: regular rhythm Heart sounds: S1 normal heart sound present, S2 normal heart sound present, no murmurs and no rubs Peripheral pulses: Peripheral pulses 2+ throughout Neuro General: patient oriented x3 Extrem Other: pitting edema in lower legs to level of knees Psych Appearance: grossly normal Mental Status: mental status grossly normal Speech and movement: Normal speech and movement present Office Procedures EKG Details: Today, atrial fibrillation with slow ventricular response, RBBB, rate 57, Qtc 492ms [id number], Complete Assessment & Plan Assessment & Plan (1) Acute exacerbation of CHF (congestive heart failure): Code(s): I50.9 - Heart failure, unspecified Category: Medical Plan: History of heart failure with preserved EF. Last hospital admission with acute heart failure was September 2022. Last nuclear stress test on 09/26/2022 showing no infarct or ischemia. Since then he had a CardioMEMS device placed. Compliant with his readings and PA readings are followed remotely. He has known advanced chronic kidney disease and follows closely with Nephrology. His most recent CardioMEMS readings have been elevated but stable. His diuretics are adjusted as needed by Nephrology. His labs from 12/29/2024 show creatinine 4.84. He has been evaluated at [facility] for renal transplant list. He has not started dialysis as of yet and is hoping to avoid it as long as possible. Currently his heart failure symptoms have been stable, NYHA class 2-3. He says these symptoms have been unchanged in the last few months. He continues on Bumex 1 mg b.i.d. . Spent time reviewing signs and symptoms of heart failure with him. If having concerning symptoms instructed to notify either Nephrology or this office. No med changes made at this time. (2) Afib: Code(s): I48.91 - Unspecified atrial fibrillation Category: Medical Plan: Newer finding of atrial fibrillation which has been persistent, asymptomatic. Echo done 09/22/2024 EF 59%, left atrium severely dilated, [id number] MR, [id number] TR, mild pulmonary hypertension (AFib identified at that time.) His heart rate was controlled and he was continued on his usual labetalol. He did undergo a Holter monitor for 3 days showing a fib, average rate 62, frequent PVCs 4.6% of the time with up to 6 beat run. Chads Vasc score of 3. Anticoagulation is indicated however does have significant anemia, likely anemia of chronic disease and he declines anticoagulation use due to history of bleeding. Labs done 12/29/2024 shows hemoglobin 7.6. He has been referred for Watchman which he will undergo in the near future. For his persistent AFib we will need to continue with rate control as he is not anticoagulated at this time. (3) Essential hypertension: Code(s): I10 - Essential (primary) hypertension Category: Medical Plan: Blood pressure goal less than 130/80. Well controlled currently. He continues on hydralazine, labetalol, Bumex, clonidine. No med changes made. (4) Carotid stenosis: Code(s): I65.29 - Occlusion and stenosis of unspecified carotid artery Category: Medical Qualifiers: Laterality: left Qualified Code(s): I65.22 - Occlusion and stenosis of left carotid artery Plan: Known history of moderate carotid stenosis. Follows with Dr. Mcfadden for vascular. Continue statin. (5) First degree heart block: Code(s): I44.0 - Atrioventricular block, first degree Category: Medical Plan: Present on EKGs, no change (6) RBBB: Code(s): I45.10 - Unspecified right bundle-branch block Category: Medical Plan: Present on EKGs, no change (7) Presence of CardioMEMS HF system: Code(s): Z95.818 - Presence of other cardiac implants and grafts Category: Medical Plan: Monthly reports submitted. Discussed readings with patient today. (8) COPD (chronic obstructive pulmonary disease): Code(s): J44.9 - Chronic obstructive pulmonary disease, unspecified Category: Medical Plan: Followed by pulmonology Plan Time spent on chart review, documentation, interview and assessment Coding Level of Care Code Est Pt Level 4 (26203) Complex EM visit Add On G2211 Diagnoses Acute exacerbation of CHF (congestive heart failure) I50.9 Afib I48.91 Essential hypertension I10 Stenosis of left carotid artery I65.22 Laterality: left First degree heart block I44.0 RBBB I45.10 Presence of CardioMEMS HF system Z95.818 COPD (chronic obstructive pulmonary disease) J44.9 CPT Codes EKG - CPT: 46157-[id number], Complete ([id number]) Time Spent (min) 32
--- OUTSIDE RECORDS SUMMARY | 2025-01-17 08:39 | XMS_ITS | Encounter Summary ---
Author Organization [employer] Address [address] [facility] 7 [place] [address] Care Team Providers Care Wood Barrel Reconditioner Name Role Phone Ayaka Salgado MD Primary Care Provider [phone] Reason for Visit * Reason Onset Date Comments Med Refill 05/11/2024 Encounter Details Date Type Department Care Team ([facility] st Contact Info) Description 05/11/2024 Telephone [facility] MEDICINE [address] [place] [address] Ayaka Salgado MD 505 [facility] [place] [address] Med Refill Social History Tobacco Use Types [...] 5-325 MG tablet To be sent to: [facility] documented in this encounter Plan of Treatment Upcoming Encounters Date Type Department Care Team ([facility] st Contact Info) Description 02/01/2025 9:00 AM EDT Clinical Support [facility] MED & PEDS [address] [place] [address] Alana Hook RN [address] [place] [address] 02/22/2025 1:45 PM EDT Office Visit [facility] MED & PEDS [address] [place] [address] Ayaka Salgado MD [address] [place] [address] documented as of this encounter Visit Diagnoses Not on filedocumented in this encounter Additional Health Concerns Assessment Noted Time PHQ-9 Depression Total Score: 7 08/29/20 22 10:26 AM EST documented as of this encounter Care Teams Wood Barrel Reconditioner Relationship Specialty Start Date End Date Ayaka Salgado MD [address] [place] [address] PCP - General Internal Medicine 09/15/18 documented as of this encounter
--- OUTSIDE RECORDS SUMMARY | 2025-01-17 08:39 | XMS_ITS | Encounter Summary ---
Author Organization [employer] Address [address] [place] [address] 7 [place] [address] Care Team Providers Care Waiter/Waitress Third Class Name Role Phone Ayaka Salgado MD Primary Care Provider [phone] Reason for Visit * Reason Onset Date Comments Med Refill 12/12/2022 Encounter Details Date Type Department Care Team ([facility] st Contact Info) Description 12/12/2022 Telephone [facility] MED & PEDS [address] [place] [address] Ayaka Salgado MD 505 [place] [address] Med Refill Social History Tobacco Use Types [...] (Norvasc) 5 MG tablet Please sent to [id number] - [place], [place] - [address] [facility] documented in this encounter Plan of Treatment Upcoming Encounters Date Type Department Care Team ([facility] st Contact Info) Description 02/01/2025 9:00 AM EDT Clinical Support [facility] MED & PEDS 505 [place] [address] Alana Hook, RN 505 [place] [address] 02/22/2025 1:45 PM EDT Office Visit [facility] MED & PEDS 505 [place] [address] Ayaka Salgado MD 505 [place] [address] documented as of this encounter Visit Diagnoses Not on filedocumented in this encounter Additional Health Concerns Assessment Noted Time PHQ-9 Depression Total Score: 7 08/29/20 22 10:26 AM EST documented as of this encounter Care Teams Waiter/Waitress Third Class Relationship Specialty Start Date End Date Ayaka Salgado MD 505 [place] [address] PCP - General Internal Medicine 09/15/18 documented as of this encounter
--- OUTSIDE RECORDS SUMMARY | 2025-01-17 08:39 | XMS_ITS | Encounter Summary ---
Author Organization [employer] Address 75 [facility] 7t [place] [address] Care Team Providers Care Fuel Cell Test Engineer Name Role Phone Ayaka Salgado MD Primary Care Provider [phone] Encounter Details Date Type Department Care Team ([facility] st Contact Info) Description 05/26/2024 Orders Only [facility] CHC MED & PEDS 505 [place] [address] Ayaka Salgado MD 505 [place] [address] Simple chronic bronchitis (CMS/HCC) (Primary Dx) Social [...] 02/01/2025 9:00 AM EDT Clinical Support [facility] MED & PEDS 505 [place] [address] Alana Hook, RACHELLE 505 [place] [address] 02/22/2025 1:45 PM EDT Office Visit [facility] MED & PEDS 505 [place] [address] Ayaka Salgado MD 505 [place] [address] documented as of this encounter Visit Diagnoses Diagnosis Simple chronic bronchitis (CMS/HCC)- Primary Simple chronic bronchitis documented in this encounter Additional Health Concerns Assessment Noted Time PHQ-9 Depression Total Score: 7 08/29/20 22 10:26 AM EST documented as of this encounter Care Teams Fuel Cell Test Engineer Relationship Specialty Start Date End Date Ayaka Salgado MD 505 [place] [address] PCP - General Internal Medicine 09/15/18 documented as of this encounter
--- OUTSIDE RECORDS SUMMARY | 2025-01-17 08:39 | XMS_ITS | Encounter Summary ---
Author Organization [employer] Address 75 [facility] 7t [place] [address] Care Team Providers Care Radio Sportscaster Name Role Phone Ayaka Salgado MD Primary Care Provider [phone] Encounter Details Date Type Department Care Team ([facility] st Contact Info) Description 08/18/2024 Telephone [facility] MEDICINE 230 [place] [address] Ayaka Salgado MD [address] [place] [address] Social History Tobacco Use Types Packs/Day Years [...] [facility] MED & PEDS 505 [place] [address] Alana Hook RN 505 [place] [address] 02/22/2025 1:45 PM EDT Office Visit [facility] MED & PEDS 505 [place] [address] Ayaka Salgado MD 505 [place] [address] documented as of this encounter Visit Diagnoses Not on filedocumented in this encounter Additional Health Concerns Assessment Noted Time PHQ-9 Depression Total Score: 7 08/29/20 22 10:26 AM EST documented as of this encounter Care Teams Radio Sportscaster Relationship Specialty Start Date End Date Ayaka Salgado MD 505 [place] [address] PCP - General Internal Medicine 09/15/18 documented as of this encounter
--- OUTSIDE RECORDS SUMMARY | 2025-01-17 08:39 | XMS_ITS | Encounter Summary ---
Author Organization [employer] Address 75 [facility] 7 [place] [address] Care Team Providers Care Bike Technician Name Role Phone Ayaka Salgado MD Primary Care Provider [phone] Reason for Visit * Reason Onset Date Comments Med Refill 12/01/2023 Encounter Details Date Type Department Care Team ([facility] st Contact Info) Description 12/01/2023 Telephone [facility] MEDICINE 230 [place] [address] Ayaka Salgado MD 505 [facility] [place] [address] Med Refill Social History Tobacco Use Types [...] 10 MG tablet To be sent to: [id number] - [place] - [address] [facility] documented in this encounter Plan of Treatment Upcoming Encounters Date Type Department Care Team ([facility] st Contact Info) Description 02/01/2025 9:00 AM EDT Clinical Support [facility] MED & PEDS 505 [place] [address] Alana Hook RN 505 [place] [address] 02/22/2025 1:45 PM EDT Office Visit [facility] MED & PEDS 505 [place] [address] Ayaka Salgado MD 505 [place] [address] documented as of this encounter Visit Diagnoses Not on filedocumented in this encounter Additional Health Concerns Assessment Noted Time PHQ-9 Depression Total Score: 7 08/29/20 22 10:26 AM EST documented as of this encounter Care Teams Bike Technician Relationship Specialty Start Date End Date Ayaka Salgado MD [address] [place] [address] PCP - General Internal Medicine 09/15/18 documented as of this encounter
--- OUTSIDE RECORDS SUMMARY | 2025-01-17 08:39 | XMS_ITS | Encounter Summary ---
Author Organization [employer] Address 75 [facility] 7 [place] [address] Care Team Providers Care Podiatric Aide Name Role Phone Ayaka Salgado MD Primary Care Provider [phone] Reason for Visit * Reason Onset Date Comments Med Refill 08/09/2024 Encounter Details Date Type Department Care Team ([facility] st Contact Info) Description 08/09/2024 Telephone [facility] MEDICINE 230 [place] [address] Ayaka Salgado MD 505 [facility] [place] [address] Med Refill Social History Tobacco Use Types [...] 5-325 MG tablet To be sent to: [facility][id number] documented in this encounter Plan of Treatment Upcoming Encounters Date Type Department Care Team ([facility] st Contact Info) Description 02/01/2025 9:00 AM EDT Clinical Support [facility] MED & PEDS 505 [place] [address] Alana Hook RN 505 [place] [address] 02/22/2025 1:45 PM EDT Office Visit [facility] MED & PEDS 505 [place] [address] Ayaka Salgado MD 505 [place] [address] documented as of this encounter Visit Diagnoses Not on filedocumented in this encounter Additional Health Concerns Assessment Noted Time PHQ-9 Depression Total Score: 7 08/29/20 22 10:26 AM EST documented as of this encounter Care Teams Podiatric Aide Relationship Specialty Start Date End Date Ayaka Salgado MD [address] [place] [address] PCP - General Internal Medicine 09/15/18 documented as of this encounter
--- OUTSIDE RECORDS SUMMARY | 2025-01-17 08:39 | XMS_ITS | Encounter Summary ---
Author Organization [employer] Address 75 [facility] 7t [place] [address] Care Team Providers Care Adult Ministries Director Name Role Phone Ayaka Salgado MD Primary Care Provider [phone] Encounter Details Date Type Department Care Team ([facility] st Contact Info) Description 04/29/2024 Telephone [facility] MEDICINE 230 [place] [address] Ayaka Salgado MD [address] [place] [address] Social History Tobacco Use Types Packs/Day Years [...] 10 MG tablet To be sent to: [id number] - [place], [place] - [address] [facility] [address] documented in this encounter Plan of Treatment Upcoming Encounters Date Type Department Care Team ([facility] st Contact Info) Description 02/01/2025 9:00 AM EDT Clinical Support [facility] MED & PEDS 505 [place] [address] Alana Hook RN 505 [place] [address] 02/22/2025 1:45 PM EDT Office Visit [facility] MED & PEDS 505 [place] [address] Ayaka Salgado MD 505 [place] [address] documented as of this encounter Visit Diagnoses Not on filedocumented in this encounter Additional Health Concerns Assessment Noted Time PHQ-9 Depression Total Score: 7 08/29/20 22 10:26 AM EST documented as of this encounter Care Teams Adult Ministries Director Relationship Specialty Start Date End Date Ayaka Salgdao MD [address] [place] [address] PCP - General Internal Medicine 09/15/18 documented as of this encounter
--- OUTSIDE RECORDS SUMMARY | 2025-01-17 08:39 | XMS_ITS | Encounter Summary ---
Author Organization [employer] Address [address] [place] [address] 7t [place] [address] Care Team Providers Care Desizing Machine Operator Head End Name Role Phone Ayaka Salgado MD Primary Care Provider [phone] Encounter Details Date Type Department Care Team (Late st Contact Info) Description 02/19/2023 Abstract [facility] 230 [place] [address] Ayaka Salgado MD 505 [place], [place] [id number] Social History Tobacco Use Types Packs/Day Years [...] [facility] MED & PEDS 505 [place] [address] Alana Hook RN 505 [place] [address] 02/22/2025 1:45 PM EDT Office Visit [facility] MED & PEDS 505 [place] [address] Ayaka Salgado MD 505 [place] [address] documented as of this encounter Visit Diagnoses Not on filedocumented in this encounter Additional Health Concerns Assessment Noted Time PHQ-9 Depression Total Score: 7 08/29/20 22 10:26 AM EST documented as of this encounter Care Teams Desizing Machine Operator Head End Relationship Specialty Start Date End Date Ayaka Salgado MD 505 [place] [address] PCP - General Internal Medicine 09/15/18 documented as of this encounter
--- OUTSIDE RECORDS SUMMARY | 2025-01-17 08:39 | XMS_ITS | Encounter Summary ---
Author Organization [employer] Address [address] [place] [address] 7 [place] [address] Care Team Providers Care Power Saw Mechanic Name Role Phone Ayaka Salgado MD Primary Care Provider [phone] Reason for Visit * Reason Onset Date Comments Med Refill 08/05/2024 Encounter Details Date Type Department Care Team ([facility] st Contact Info) Description 08/05/2024 Refill [facility] CHC MED & PEDS 505 [place] [address] Ayaka Salgado MD 505 [place] [address] Back pain, unspecified back location, unspecified back [...] the past 12 months, has t he [employer], gas, oil or water [employer] threatened to shut off services in your [...] 5-325 MG tablet To be sent to: [facility][id number] - [place], [place] - [address] [facility] [address] documented in this encounter Plan of Treatment Upcoming Encounters Date Type Department Care Team (Late st Contact Info) Description 02/01/2025 9:00 AM EDT Clinical Support [facility] MED & PEDS 505 [place] [address] Alana Hook RN 505 [place] [address] 02/22/2025 1:45 PM EDT Office Visit [facility] MED & PEDS 505 [place] [address] Ayaka Salgado MD 505 [place] [address] documented as of this encounter Visit Diagnoses Diagnosis Back pain, unspecified back location, unspecified back pain laterality, unspecified chronicity- Primary documented in this encounter Additional Health Concerns Assessment Noted Time PHQ-9 Depression Total Score: 7 08/29/20 22 10:26 AM EST documented as of this encounter Care Teams Power Saw Mechanic Relationship Specialty Start Date End Date Ayaka Salgado MD 505 [place] [address] PCP - General Internal Medicine 09/15/18 documented as of this encounter
--- OUTSIDE RECORDS SUMMARY | 2025-01-17 08:39 | XMS_ITS | Encounter Summary ---
Author Organization [employer] Address 75 [facility] 7t [place] [address] Care Team Providers Care Pickling Machine Operator Name Role Phone Ayaka Salgado MD Primary Care Provider [phone] Encounter Details Date Type Department Care Team (Late st Contact Info) Description 10/11/2022 Orders Only [facility] 230 [place] [address] Ayaka Salgado MD [address] [facility] [place] [address] Congestive heart failure, unspecified HF chronicity, unspecified [...] Upcoming Encounters Date Type Department Care Team ([facility] st Contact Info) Description 02/01/2025 9:00 AM EDT Clinical Support [facility] MED & PEDS 505 [place] [address] Alana Hook, RACHELLE 505 [place] [address] 02/22/2025 1:45 PM EDT Office Visit [facility] MED & PEDS 505 [place] [address] Ayaka Salgado MD 505 [place] [address] documented as of this encounter Visit Diagnoses Diagnosis Congestive heart failure, unspecified HF chronicity, unspecified heart failure type (CMS/HCC) Edema of foot Edema documented in this encounter Additional Health Concerns Assessment Noted Time PHQ-9 Depression Total Score: 7 08/29/20 22 10:26 AM EST documented as of this encounter Care Teams Pickling Machine Operator Relationship Specialty Start Date End Date Ayaka Salgado MD 505 [place] [address] PCP - General Internal Medicine 09/15/18 documented as of this encounter
--- OUTSIDE RECORDS SUMMARY | 2025-01-17 08:39 | XMS_ITS | Encounter Summary ---
Author Organization [employer] Address 75 [facility] 7 [place] [address] Care Team Providers Care Concrete Puddler Name Role Phone Ayaka Salgado MD Primary Care Provider [phone] Reason for Visit * Reason Comments Med Refill Encounter Details Date Type Department Care Team (Late st Contact Info) Description 10/07/2022 Refill [facility] 230 [place] [address] Ayaka Salgado MD [address] [facility] [address] [place] [address] Primary osteoarthritis involving multiple joints Social History [...] Upcoming Encounters Date Type Department Care Team ([facility] st Contact Info) Description 02/01/2025 9:00 AM EDT Clinical Support [facility] MED & PEDS 505 [place] [address] Alana Hook RN 505 [place] [address] 02/22/2025 1:45 PM EDT Office Visit [facility] MED & PEDS 505 [place] [address] Ayaka Salgado MD 505 [place] [address] documented as of this encounter Visit Diagnoses Diagnosis Primary osteoarthritis involving multiple joints documented in this encounter Additional Health Concerns Assessment Noted Time PHQ-9 Depression Total Score: 7 08/29/20 22 10:26 AM EST documented as of this encounter Care Teams Concrete Puddler Relationship Specialty Start Date End Date Ayaka Salgado MD 505 [place] [address] PCP - General Internal Medicine 09/15/18 documented as of this encounter
--- OUTSIDE RECORDS SUMMARY | 2025-01-17 08:39 | XMS_ITS | Encounter Summary ---
Author Organization [employer] Address 75 [facility] 7t [place] [address] Care Team Providers Care Passenger Service Supervisor Name Role Phone Ayaka Salgado MD Primary Care Provider [phone] Encounter Details Date Type Department Care Team ([facility] st Contact Info) Description 09/22/2023 Orders Only [facility] CHC MED & PEDS [address] [place] [address] Ayaka Salgado MD 505 [place] [address] Simple chronic bronchitis (CMS/HCC) (Primary Dx) Social [...] [facility] MED & PEDS [address] [place] [address] Alana Hook, RACHELLE 505 [place] [address] 02/22/2025 1:45 PM EDT Office Visit [facility] MED & PEDS [address] [place] [address] Ayaka Salgado MD 505 [place] [address] documented as of this encounter Visit Diagnoses Diagnosis Simple chronic bronchitis (CMS/HCC)- Primary Simple chronic bronchitis documented in this encounter Additional Health Concerns Assessment Noted Time PHQ-9 Depression Total Score: 7 08/29/20 22 10:26 AM EST documented as of this encounter Care Teams Passenger Service Supervisor Relationship Specialty Start Date End Date Ayaka Salgado MD 505 [place] [address] PCP - General Internal Medicine 09/15/18 documented as of this encounter
--- OUTSIDE RECORDS SUMMARY | 2025-01-17 08:39 | XMS_ITS | Encounter Summary ---
Author Organization [email or web address] Address 75 [facility] 7t [place] [address] Care Team Providers Care Garden Labourer Name Role Phone Ayaka Salgado MD Primary Care Provider [phone] Reason for Visit * Reason Comments Med Refill Encounter Details Date Type Department Care Team ([facility] st Contact Info) Description 06/15/2024 Refill [facility] MEDICINE 230 [place], [place] [phone] Lev Gentile MD 230 [place] [address] Chronic pruritus Social History Tobacco Use Types [...] 02/01/2025 9:00 AM EDT Clinical Support [facility] MED & PEDS 505 [place] [address] Alana Hook, RACHELLE 505 [place] [address] 02/22/2025 1:45 PM EDT Office Visit [facility] MED & PEDS 505 [place] [address] Ayaka Salgado MD 505 [place] [address] documented as of this encounter Visit Diagnoses Diagnosis Chronic pruritus documented in this encounter Additional Health Concerns Assessment Noted Time PHQ-9 Depression Total Score: 7 08/29/20 22 10:26 AM EST documented as of this encounter Care Teams Garden Labourer Relationship Specialty Start Date End Date Ayaka Salgado MD 505 [place] [address] PCP - General Internal Medicine 09/15/18 documented as of this encounter
--- OUTSIDE RECORDS SUMMARY | 2025-01-17 08:39 | XMS_ITS | Encounter Summary ---
Author Organization [employer] Address 75 [facility] 7 [place] [address] Care Team Providers Care Payroll Consultant Name Role Phone Ayaka Salgado MD Primary Care Provider [phone] Reason for Visit * Reason Onset Date Comments Med Refill 07/28/2023 Encounter Details Date Type Department Care Team ([facility] Contact Info) Description 07/28/2023 Telephone [facility] CHC MED & PEDS 505 [place] [address] Ayaka Salgado MD 505 [place] [address] Med Refill Social History Tobacco Use Types [...] (Percocet) 5-325 MG tablet Please sent to [facility][id number] - [place] - [address] [facility] documented in this encounter Plan of Treatment Upcoming Encounters Date Type Department Care Team ([facility] st Contact Info) Description 02/01/2025 9:00 AM EDT Clinical Support [facility] MED & PEDS 505 [place] [address] Alana Hook RN 505 [place] [address] 02/22/2025 1:45 PM EDT Office Visit [facility] MED & PEDS 505 [place] [address] Ayaka Salgado MD 505 [place] [address] documented as of this encounter Visit Diagnoses Not on filedocumented in this encounter Additional Health Concerns Assessment Noted Time PHQ-9 Depression Total Score: 7 08/29/20 22 10:26 AM EST documented as of this encounter Care Teams Payroll Consultant Relationship Specialty Start Date End Date Ayaka Salgado MD [address] [place] [address] PCP - General Internal Medicine 09/15/18 documented as of this encounter
--- OUTSIDE RECORDS SUMMARY | 2025-01-17 08:39 | XMS_ITS | Encounter Summary ---
Author Organization [employer] Address [address] [place] [address] 7 [place] [address] Care Team Providers Care Manager Of Finance Name Role Phone Ayaka Salgado MD Primary Care Provider [phone] Reason for Visit * Reason Onset Date Comments Med Refill 12/12/2022 Encounter Details Date Type Department Care Team ([facility] st Contact Info) Description 12/12/2022 Telephone [facility] CHC MED & PEDS 505 [place] [address] Ayaka Salgado MD [address] [place] [address] Med Refill Social History Tobacco Use Types [...] (Percocet) 5-325 MG tablet Please sent to [id number] - [place], [place] - [address] [facility] documented in this encounter Plan of Treatment Upcoming Encounters Date Type Department Care Team (Late st Contact Info) Description 02/01/2025 9:00 AM EDT Clinical Support [facility] MED & PEDS 505 [place] [address] Alana Hook, RN 505 [place] [address] 02/22/2025 1:45 PM EDT Office Visit [facility] MED & PEDS 505 [place] [address] Ayaka Salgado MD [address] [place] [address] documented as of this encounter Visit Diagnoses Not on filedocumented in this encounter Additional Health Concerns Assessment Noted Time PHQ-9 Depression Total Score: 7 08/29/20 22 10:26 AM EST documented as of this encounter Care Teams Manager Of Finance Relationship Specialty Start Date End Date Ayaka Salgado MD [address] [place] [address] PCP - General Internal Medicine 09/15/18 documented as of this encounter
--- OUTSIDE RECORDS SUMMARY | 2025-01-17 08:39 | XMS_ITS ---
Author Organization [facility] Address [address] [place] [address] 7 [place] [address] Care Team Providers Care Chisel Mortiser Operator Name Role Phone Ayaka Salgado MD Primary Care Provider [phone] DIGITAL EDITOR Status:Enrolled (Active) Start date:12/20/2022 Enrollment date:12/20/2022 Case Team Name Relationship Phone Alana Hook RN Registered Nurse(Responsible S taff) Continued Care and Services Coordination
--- OUTSIDE RECORDS SUMMARY | 2025-01-17 08:39 | XMS_ITS | Encounter Summary ---
Author Organization [employer] Address [address] [place] [address] 7 [place] [address] Care Team Providers Care Cloth Trimmer Hand Name Role Phone Ayaka Salgado MD Primary Care Provider [phone] Reason for Visit * Reason Comments Med Refill Encounter Details Date Type Department Care Team ([facility] Contact Info) Description 07/28/2023 Refill [facility] MED & PEDS 505 [place] [address] Ayaka Salgado MD 505 [place] [address] Social History Tobacco Use Types Packs/Day Years [...] [facility] MED & PEDS 505 [place] [address] Alana Hook, RACHELLE 505 [place] [address] 02/22/2025 1:45 PM EDT Office Visit [facility] MED & PEDS 505 [place] [address] Ayaka Salgado MD 505 [place] [address] documented as of this encounter Visit Diagnoses Not on filedocumented in this encounter Additional Health Concerns Assessment Noted Time PHQ-9 Depression Total Score: 7 08/29/20 22 10:26 AM EST documented as of this encounter Care Teams Cloth Trimmer Hand Relationship Specialty Start Date End Date Ayaka Salgado MD 505 [place] [address] PCP - General Internal Medicine 09/15/18 documented as of this encounter
--- OUTSIDE RECORDS SUMMARY | 2025-01-17 08:39 | XMS_ITS | Encounter Summary ---
Author Organization [employer] Address [address] [place] [address] 7 [place] [address] Care Team Providers Care Fiberglass Laminator Name Role Phone Ayaka Salgado MD Primary Care Provider [phone] Encounter Details Date Type Department Care Team (Late st Contact Info) Description 01/23/2023 Abstract [facility] [address] [place] [address] Ayaka Salgado MD [address] [place], [place] [id number] Social History Tobacco Use Types Packs/Day Years [...] 02/01/2025 9:00 AM EDT Clinical Support [facility] PEDS [address] [place] [address] Alana Hook RN 505 [place] [address] 02/22/2025 1:45 PM EDT Office Visit [facility] [address] [place] [address] Ayaka Salgado MD [address] [place] [address] documented as of this encounter Visit Diagnoses Not on filedocumented in this encounter Additional Health Concerns Assessment Noted Time PHQ-9 Depression Total Score: 7 08/29/20 22 10:26 AM EST documented as of this encounter Care Teams Fiberglass Laminator Relationship Specialty Start Date End Date Ayaka Salgado MD [address] [place] [address] PCP - General Internal Medicine 09/15/18 documented as of this encounter
--- OUTSIDE RECORDS SUMMARY | 2025-01-17 08:39 | XMS_ITS | Encounter Summary ---
Author Organization [employer] [facility] Address [address] [facility] 7 [place] [address] Care Team Providers Care Cd Reactor Operator Name Role Phone Ayaka Salgado MD Primary Care Provider [phone] Reason for Visit * Reason Onset Date Comments r/s appt 08/23/2022 Encounter Details Date Type Department Care Team (Late st Contact Info) Description 08/23/2022 Telephone [facility] MEDICINE [address] [place] [address] Ayaka Salgado MD [address] [facility] [place] [address] r/s appt Social History Tobacco Use Types [...] appt has been canceled. Please contact at [phone] documented in this encounter Plan of Treatment Upcoming Encounters Date Type Department Care Team (Late Contact Info) Description 02/01/2025 9:00 AM EDT Clinical Support [facility] MED & PEDS [address] [place] [address] Alana Hook, RN 505 [place] [address] 02/22/2025 1:45 PM EDT Office Visit [facility] [address] [place] [address] Ayaka Salgado MD 505 [place] [address] documented as of this encounter Visit Diagnoses Not on filedocumented in this encounter Care Teams Cd Reactor Operator Relationship Specialty Start Date End Date Ayaka Slagado MD [address] [place] [address] PCP - General Internal Medicine 09/15/18 documented as of this encounter
--- OUTSIDE RECORDS SUMMARY | 2025-01-17 08:39 | XMS_ITS | Encounter Summary ---
Author Organization [employer] Address [address] [place] [address] 7 [place] [address] Care Team Providers Care Molder Inflated Ball Name Role Phone Ayaka Salgado MD Primary Care Provider [phone] Reason for Visit * Reason Comments Med Refill Encounter Details Date Type Department Care Team ([facility] st Contact Info) Description 01/06/2023 Refill [facility] MED & PEDS [address] [place] [address] Ayaka Salgado MD [address] [place] [address] Primary osteoarthritis involving multiple joints Social History [...] [facility] MED & PEDS [address] [place] [address] Alana Hook RN 505 [place] [address] 02/22/2025 1:45 PM EDT Office Visit [facility]ED[facility] [address] [place] [address] Ayaka Salgado MD [address] [place] [address] documented as of this encounter Visit Diagnoses Diagnosis Primary osteoarthritis involving multiple joints documented in this encounter Additional Health Concerns Assessment Noted Time PHQ-9 Depression Total Score: 7 08/29/20 22 10:26 AM EST documented as of this encounter Care Teams Molder Inflated Ball Relationship Specialty Start Date End Date Ayaka Salgado MD [address] [place] [address] PCP - General Internal Medicine 09/15/18 documented as of this encounter
--- OUTSIDE RECORDS SUMMARY | 2025-01-17 08:39 | XMS_ITS | Encounter Summary ---
Author Organization [employer] Address [address] [facility] 7t [place] [address] Care Team Providers Care Glue Jointer Feeder Name Role Phone Ayaka Salgado MD Primary Care Provider [phone] Reason for Visit * Reason Comments Med Refill Encounter Details Date Type Department Care Team (Late st Contact Info) Description 03/02/[address] [facility] MEDICINE [address] [place] [address] Ayaka Salgado MD [address] [facility] [address] [place] [address] Primary osteoarthritis involving multiple joints Social History [...] Description 02/01/2025 9:00 AM EDT Clinical Support [facility] MED & PEDS 505 [place] [address] Alana Hook, RACHELLE 505 [place] [address] 02/22/2025 1:45 PM EDT Office Visit [facility] MED [facility] PEDS 505 [place] [address] Ayaka Salgado MD 505 [place] [address] documented as of this encounter Visit Diagnoses Diagnosis Primary osteoarthritis involving multiple joints documented in this encounter Additional Health Concerns Assessment Noted Time PHQ-9 Depression Total Score: 7 08/29/20 22 10:26 AM EST documented as of this encounter Care Teams Glue Jointer Feeder Relationship Specialty Start Date End Date Ayaka Salgado MD 505 [place] [address] PCP - General Internal Medicine 09/15/18 documented as of this encounter
--- OUTSIDE RECORDS SUMMARY | 2025-01-17 08:39 | XMS_ITS | Encounter Summary ---
Author Organization [employer] Address [address] [place] [address] 7 [place] [address] Care Team Providers Care Grocery Caddy Name Role Phone Ayaka Salgado MD Primary Care Provider [phone] Reason for Visit * Reason Onset Date Comments Letter Accomodation 12/12/2022 Encounter Details Date Type Department Care Team ([facility] st Contact Info) Description 12/12/2022 Telephone [facility] MED & PEDS [address] [place] [address] Ayaka Salgado MD 505 [place] [address] Letter Accomodation Social History Tobacco Use Types [...] hisPercocet. Advised message will be forwarded to [employer] nurse regarding his request. Pt verbalizes understanding. * Telephone Encounter - Abiel Mills - 12/12/2022 9:32 AM EDT Tc from pt requesting an Accomodation letter. Please contact pt at [phone] documented in this encounter Plan of Treatment Upcoming Encounters Date Type Department Care Team ([facility] st Contact Info) Description 02/01/2025 9:00 AM EDT Clinical Support [facility] MED & PEDS [address] [place] [address] Alana Hook, RN 505 [place] [address] 02/22/2025 1:45 PM EDT Office Visit [facility] MED & PEDS [address] [place] [address] Ayaka Salgado MD [address] [place] [address] documented as of this encounter Visit Diagnoses Diagnosis Congestive heart failure, unspecified HF chronicity, unspecified heart failure type (CMS/HCC) Primary osteoarthritis involving multiple joints documented in this encounter Additional Health Concerns Assessment Noted Time PHQ-9 Depression Total Score: 7 08/29/20 22 10:26 AM EST documented as of this encounter Care Teams Grocery Caddy Relationship Specialty Start Date End Date Ayaka Salgado MD [address] [place] [address] PCP - General Internal Medicine 09/15/18 documented as of this encounter
--- OUTSIDE RECORDS SUMMARY | 2025-01-17 08:39 | XMS_ITS | Encounter Summary ---
Author Organization [employer] Address [address] [facility] 7 [place] [address] Care Team Providers Care Application Development Consultant Name Role Phone Ayaka Salgado MD Primary Care Provider [phone] Reason for Visit * Reason Onset Date Comments Med Refill 07/31/2023 Encounter Details Date Type Department Care Team ([facility] st Contact Info) Description 07/31/2023 Telephone [facility] MEDICINE [address] [place] [address] Ayaka Salgado MD 505 [facility] [place] [address] Med Refill Social History Tobacco Use Types [...] Upcoming Encounters Date Type Department Care Team ([facility] st Contact Info) Description 02/01/2025 9:00 AM EDT Clinical Support [facility] MED & PEDS [address] [place] [address] Alana Hook RN 505 [place] [address] 02/22/2025 1:45 PM EDT Office Visit [facility] MED & PEDS [address] [place] [address] Ayaka Salgado MD [address] [place] [address] documented as of this encounter Visit Diagnoses Not on filedocumented in this encounter Additional Health Concerns Assessment Noted Time PHQ-9 Depression Total Score: 7 08/29/20 10:26 AM EST documented as of this encounter Care Teams Application Development Consultant Relationship Specialty Start Date End Date Ayaka Salgado MD [address] [place] [address] PCP - General Internal Medicine 09/15/18 documented as of this encounter
== END 2025-01-17 09:14 | disposition home or self-care (01) ==
PROVIDERS: PCP Internal Medicine; Visit Provider Nurse Practitioner Family
DX: I50.9 Heart failure, unspecified (principal); I48.91 Unspecified atrial fibrillation; I10 Essential (primary) hypertension; I65.22 Occlusion and stenosis of left carotid artery; I44.0 Atrioventricular block, first degree; I45.10 Unspecified right bundle-branch block; Z95.818 Presence of other cardiac implants and grafts; J44.9 Chronic obstructive pulmonary disease, unspecified
CPT/HCPCS: 93010; 99214; G2211

== ENCOUNTER → 2025-01-17 08:21 | Outpatient (BNVA) | payer MEDICARE, SELFPAY | PROVIDERS: PCP Internal Medicine; Visit Provider Nurse Practitioner Family | DX: I11.0 Hypertensive heart disease with heart failure (principal); I50.9 Heart failure, unspecified; I48.91 Unspecified atrial fibrillation; I65.22 Occlusion and stenosis of left carotid artery; I44.0 Atrioventricular block, first degree; I45.10 Unspecified right bundle-branch block; J44.9 Chronic obstructive pulmonary disease, unspecified; Z95.818 Presence of other cardiac implants and grafts | CPT/HCPCS: 93005; 99212 ==

== ENCOUNTER 2025-01-25 10:34 | Outpatient (AMB) | payer MEDICARE, SELFPAY ==
[2025-01-25 10:43] VITALS: BP 118/60; PULSE 67; O2SAT 96; BMI 36.2
--- NOTE | 2025-01-25 10:43 | HO.NEPHOV_ITS ---
Vital Signs 01/25/25 10:43 Height 5 ft 7 in Weight 231 lb BMI 36.2 BP 118/60 Blood Pressure Location Rt brachial Position Sitting Pulse 67 Pulse Source Pulse Oximeter Pulse Oximetry (%) 96 Oxygen Delivery Method Room Air Intake Visit Reasons: 3 weeks fu Laborer/Grade Check Required: No Accompanied by: Self / Same As Patient Allergies aspirin Adverse Reaction (Unknown, Verified 01/25/25 10:46) nose bleeds metformin Adverse Reaction (Unknown, Verified 01/25/25 10:46) hypoglycemia warfarin [From Coumadin] Adverse Reaction (Unknown, Verified 01/25/25 10:46) Nose Bleed apixaban Adverse Reaction (Verified 01/25/25 10:46) Nose Bleed clopidogrel Adverse Reaction (Verified 01/25/25 10:46) Nose Bleed Medication List - Last Reconciled 01/25/25 by Ross Baldwin MD acetaminophen (Tylenol) 650 mg PO Q6H PRN albuterol sulfate 90 mcg/actuation (Ventolin HFA) inhalation albuterol sulfate mg inhalation blood-glucose meter (FreeStyle Lite Meter kit) As directed bumetanide 1 mg PO BID calcitriol 0.25 mcg PO DAILY cholecalciferol (vitamin D3) 25 mcg PO Q48H cinacalcet 30 mg PO DAILY clonidine HCl 0.2 mg PO TID gabapentin 300 mg PO TID glimepiride 1 mg PO DAILY hydralazine 100 mg PO TID labetalol 400 mg PO BID lancets (FreeStyle Lancets) As directed lidocaine 5% 1 patch topical DAILY PRN losartan 50 mg PO DAILY melatonin 5 mg PO BEDTIME oxycodone-acetaminophen 5-325 mg 1 tab PO Q8H PRN simvastatin 20 mg PO BEDTIME sitagliptin phosphate (Januvia) 25 mg PO DAILY tiotropium bromide (Spiriva with HandiHaler) 1 cap inhalation DAILY zolpidem 10 mg PO BEDTIME HPI Comments Details: 67-year-old male with a history of type 2 diabetes, HTN, CKD, carotid stenosis, COPD, LEONEL not on CPAP, diastolic CHF with preserved ejection fraction, He has advanced CKD Baseline creatinine is between 3.5 and 4.0 Currently on high dose of Bumex -Takes 1mg BID No edema No dyspnea 06/15/24 ; c/o SOB;Gained some weight/edema ;Went to [place] [facility] 06/25/24 ;After adding metolazone 2 doses and increasing Bumex to 1 mg b.i.d. he has lost about 7 lb. His breathing has improved. He feels better 07/27/24;doing much better;seen by cardiology 08/30/24 ;Dyspnea on exertion ;Weight is down by few lbs 09/13/24 ; c/o difficulty sleeping ;He has LEONEL -but does not use CPAP ; New onset A.fib - work up in progress 11/08/24: Still sOB on exertion;Seeing cardilogy today 01/25/25 69-year-old male presenting with anemia management as the primary reason for the visit. He is receiving scheduled BrReticrit injection to improve his anemia and associated hemoglobin levels. Treatment continues due to persistent anemia. The patient also experiences knee pain and self-reports episodes of respiratory discomfort which could be associated with his other underlying conditions. [facility] Medical History Obesity (BMI 30-39.9) Elevated brain natriuretic peptide (BNP) level Lower extremity edema COPD (chronic obstructive pulmonary disease) LEONEL (obstructive sleep apnea) Dyspnea on minimal exertion COPD (chronic obstructive pulmonary disease) Smoker Left ventricular hypertrophy Smoking CKD (chronic kidney disease) Obesity Dyslipidemia Hypertension Diabetes mellitus Surgical History No pertinent past surgical history Family History Father No problems noted. Mother Diabetes Family/Other No problems noted. Social History Household Members: Significant Other Housing: Apartment Do you presently have visiting nurse or other home services: No Alcohol intake: current Alcohol intake frequency: a few times a month Patient Tobacco Use Status: Former Tobacco user e-Cigarette/Vaping Use: Never Used Second Hand Smoke Exposure: No Advance Directives Date on File: 08/23/22 service: No Current occupational status: disabled Physical Exam Vital Signs: Last Vital Signs Pulse 67 01/25/25 10:43 BP 118/60 01/25/25 10:43 Pulse Ox 96 01/25/25 10:43 Oxygen Delivery Method Room Air 01/25/25 10:43 BMI result Body Mass Index 36.2 Office Meds epoetin chad-epbx 20,000 unit/mL injection solution Performing Provider: Ross Baldwin MD Per[facility] Administered by: Ross Baldwin MD on 01/25/25 10:55 Dose Route Admin Location Dispensed Lot Number Expiration Date [facility] Mobile Paint Specialist 20,000 unit subcut right arm 1 mL [id number] 04/14/26 5525-4136-71 [employer] [facility] Results Reviewed Nephrology Results: Hgb 7.6 g/dl (14.0-18.0) L 12/29/24 WBC 5.0 X10*3/uL (4.8-10.8) 12/29/24 Plt Count 187 X10*3/uL (160-400) 12/29/24 Sodium 139 mmol/L (135-145) 12/29/24 Potassium 4.3 mmol/L (3.3-5.1) 12/29/24 Chloride 109 mmol/L (96-108) H 12/29/24 Carbon Dioxide 21 mmol/L (22-29) L 12/29/24 BUN 55 mg/dL (9-16) H 12/29/24 Creatinine 4.84 mg/dL (0.5-1.4) H* 12/29/24 Calcium 9.7 mg/dL (8.4-10.2) 12/29/24 Assessment & Plan Assessment & Plan (1) Anemia: Code(s): D64.9 - Anemia, unspecified Category: Medical Plan: Due to CKD Administered Retacrit 57568 U Sq in right UE and tolerated well (2) CKD (chronic kidney disease) stage 4, GFR 15-29 ml/min: Code(s): N18.4 - Chronic kidney disease, stage 4 (severe) Category: Medical (3) Essential hypertension: Code(s): I10 - Essential (primary) hypertension Category: Medical Plan: BP appears controlled. We discussed weight loss and low-salt diet again. (4) Chronic diastolic congestive heart failure: Code(s): I50.32 - Chronic diastolic (congestive) heart failure Category: Medical Plan: Compensated. Follows with cardiology. (5) Obesity (BMI 30-39.9): Code(s): E66.9 - Obesity, unspecified Category: Medical Plan: Discussed weight loss. (6) Hyperparathyroidism: Code(s): E21.3 - Hyperparathyroidism, unspecified Category: Medical Plan: He is currently on cinacalcet and Rocaltrol. Will HOLD Cinacalcet ( 11/08/24) Repeat C is 9.7 Follow PTH Plan Referred to dialysis education program. He will be a good candidate for CCPD Discussed pre-emptive transplant Refered to [facility] - seen in Nov Orders: Orders Basic Metabolic Panel 4 Weeks D64.9 - Anemia, unspecified, N18.4 - Chronic kidney disease, stage 4 (severe) Complete Blood Count no Diff 4 Weeks D64.9 - Anemia, unspecified, N18.4 - Chronic kidney disease, stage 4 (severe) AMB Epoetin Injection Practice Supplied Today N40.1 - Benign prostatic hyperplasia with lower urinary tract symptoms Coding Level of Care Code Est Pt Level 4 (30080) Diagnoses Anemia D64.9 CKD (chronic kidney disease) stage 4, GFR 15-29 ml/min N18.4 Essential hypertension I10 Chronic diastolic congestive heart failure I50.32 Obesity (BMI 30-39.9) E66.9 Hyperparathyroidism E21.3
--- OUTSIDE RECORDS SUMMARY | 2025-01-25 11:44 | XMS_ITS | Encounter Summary ---
Author Organization [facility] Address [address] [place] [address] Care Team Providers Care Marine Electronics Repairer Name Role Phone Ayaka Salgado Primary Care Provider [phone] Encounter Details Date Type Department Care Team (Late st Contact Info) Description 07/29/2024 Orders Only [facility] XRay [address] [place] [address] Waqas Garnett MD [address] [place] [address] Social History Tobacco Use Types Packs/Day [...] Info) Description 08/02/2025 8:20 AM EST Follow-Up [facility] Renal Transplant [address] [place] [address] Joey Duarte MD [address] [place] [address] 08/02/2025 9:00 AM EST Social Work [facility] Renal Transplant [address] [place] [address] Susan Babb LICSW [address] [place] [address] documented as of this encounter Visit Diagnoses Not on filedocumented in this encounter Care Teams Marine Electronics Repairer Relationship Specialty Start Date End Date Ayaka Salgado [address] [place] [address] PCP - General Internal Medicine 07/29/24 documented as of this encounter
--- OUTSIDE RECORDS SUMMARY | 2025-01-25 11:44 | XMS_ITS | Clinical Summary ---
Author Organization [facility] Address [address] [place] [address] Care Team Providers Care Skating Rink Ice Maker Name Role Phone DamianReidteriren Morel Primary Care Provider Allergies Active Allergy Reactions [...] Department Care Team Description 11/24/2024 Orders Only [facility] Transplant Department [address] [place] [phone] Shima Springer RN Pre-transplant evaluation for end stage renal disease (Primary Dx); Chronic kidney disease, stage V 11/23/2024 Telephone [facility] Transplant Department [address] [place] [address] [phone] Shima Springer information security associate - Kidney Txp from Last 3 Months [...] Info) Description 08/02/2025 8:20 AM EST Follow-Up [facility] Renal Transplant [address] [place] [address] Joey Duarte MD [address] [place] [address] 08/02/2025 9:00 AM EST Social Work [facility] Renal Transplant [address] [place] [address] Susan Babb LICSW [address] [place] [address] Health Maintenance Due Date Last Done Comments [...] complete this topic Procedures * Due to [place] state law, this organization might not be [...] to Health Maintenance Results * Due to [place] state law, this organization might not be [...] MD LAB BLOOD ORDERABLES María l Result [facility] [facility] [address] [place] [address], * Hepatitis C Antibody w/Reflex to PCR (07/29/2024 12:57 PM EST) Hepatitis C Antibody NON-REACT [place]ANFORD NON-REACT [place]ORD 07/30/2024 3:03 AM EST [employer] [facility] Comment: HCV antibody was non-reactive. There is no laboratory evidence of HCV infection. In most cases, no further action is required. However, if recent HCV exposure is suspected, a test for HCV RNA (test code 85997) is suggested. For additional information please refer to http://education.[employer]sNew [place]/faq/XMW00d0 (This link is being provided for informational/ educational purposes only.) Blood Structure of peripheral vein / Unknown Venipuncture / Unknown 07/29/2024 12:57 PM EST 07/29/2024 1:32 PM EST Narrative [facility] - 07/30/2024 3:03 AM EST [facility] Received Date: Joey Duarte MD LAB BLOOD ORDERABLES María l Result Performing Organization Address City/[facility]/ZIP Co de Phone Number [facility] [address], [place] [address], [place] [phone] [employer] [facility] [address], [place] [address], [place] [phone] * Phosphorus (07/29/2024 12:57 PM EST) Phosphorus 4.5 2.5 - 4.5 mg/dL 07/29/2024 2:00 PM EST [employer] [place] [facility] Blood Structure of peripheral vein / Unknown Venipuncture / Unknown 07/29/2024 12:57 PM EST 07/29/2024 1:29 PM EST Joey Duarte MD LAB BLOOD ORDERABLES María l Result [facility] [facility] [address] [place] [address], [place] * (ABNORMAL) Hemoglobin A1c (07/29/2024 12:57 PM EST) Hemoglobin A1C 6.7(H) <5.7 % of total Hgb 07/30/2024 1:59 AM EST [facility] Comment: For someone without known diabetes, a [...] (MG/DL) 146 mg/dL 07/30/2024 1:59 AM EST [facility] eAG (MMOL/L) 8.1 mmol/L 07/30/2024 1:59 AM EST [facility] Blood Structure of peripheral vein / Unknown Venipuncture / Unknown 07/29/2024 12:57 PM EST 07/29/2024 1:32 PM EST Narrative [facility] - 07/30/2024 1:59 AM EST [facility] Received Date: Joey Duarte MD LAB BLOOD ORDERABLES María l Result [employer] [address], [place] [address], [place] [phone] [employer] [address], [place] [address], [place] [phone] from Last 3 Months or Most Recently Relevant to Health Maintenance Insurance [facility] [place] [id number] [facility] AARP [facility] AARP Advance Directives Documents on File Type Date Recorded Patient Floral Design Teacher Expl anation Health Care Proxy 08/05/2024 4:14 PM 07-16 Care Teams Skating Rink Ice Maker Relationship Specialty Start Date End Date Ayaka Salgado [address] [place] [address] [place] [address] PCP - General Internal Medicine 07/29/24
--- OUTSIDE RECORDS SUMMARY | 2025-01-25 11:44 | XMS_ITS ---
Author Organization [facility] Address [address] [place] [address] Care Team Providers Care Blackjack Pit Boss Name Role Phone Ayaka Salgado Primary Care Provider [phone] Transplant Episode Kidney Candidate [facility] ([place] [place]) - [facility] Evaluation began on 07/29/2024 Marked as Active on 07/29/2024 Kidney CoordinatorShima Springer RN Email: N/A Scores Score Value Updated Exceptions/Reas ons CPRA Not available EPTS (Calc) 44 01/25/2025 [place] Organ Diagnosis Organ Primary Contributory Kidney Diabetes Mellitus - Type II Care Team Name Role Phone Fax Email Shima Springer RN Kidney Coordinator [phone] N/A Ross Baldwin Referring Physician [phone] N/A Events Pre-Transplant Referred: 07/19/2024 Evaluation began: 07/29/2024
--- OUTSIDE RECORDS SUMMARY | 2025-01-25 11:44 | XMS_ITS | Encounter Summary ---
Author Organization [employer] Address [address] [facility] [address] [place] [address] Care Team Providers Care Administrative Assistant Receptionist Name Role Phone Ayaka Salgado MD Primary Care Provider [phone] Reason for Visit * Reason Onset Date Comments Med Refill 09/06/2024 Encounter Details Date Type Department Care Team ([facility] st Contact Info) Description 09/06/2024 Telephone [facility] MEDICINE [address] [place], [place] [phone] Ayaka Salgado MD [address] [facility] [place] [address] Med Refill Social History Tobacco Use Types [...] 8:56 AM EST Medication was sent to [facility] #[id number] on 08/09/24 with 3 refills. * Telephone Encounter - Cleopatra Ortiz - 09/06/2024 8:53 AM EST TC from pt requesting medication refill. Medications needing refill : labetalol (Normodyne) 200 MG tablet To be sent to: [id number] - [place] - [address] [facility] [address] documented in this encounter Plan of Treatment Upcoming Encounters Date Type Department Care Team ([facility] st Contact Info) Description 02/01/2025 9:00 AM EDT Clinical Support [facility] MED & PEDS [address] [facility] [place] [address] Alana Hook, RN [address] [facility] [place] [address] 02/22/2025 1:45 PM EDT Office Visit [facility] MED [facility] PEDS [address] [place] [address] Ayaka Salgado MD [address] [place] [address] documented as of this encounter Visit Diagnoses Not on filedocumented in this encounter Additional Health Concerns Assessment Noted Time PHQ-9 Depression Total Score: 7 08/29/20 22 10:26 AM EST documented as of this encounter Care Teams Administrative Assistant Receptionist Relationship Specialty Start Date End Date Ayaka Salgado MD [address] [place] [address] PCP - General Internal Medicine 09/15/18 documented as of this encounter
--- OUTSIDE RECORDS SUMMARY | 2025-01-25 11:44 | XMS_ITS | Encounter Summary ---
Author Organization [employer] Address [address] [facility] [address] [place] [address] Care Team Providers Care Telephone Order Clerk Name Role Phone Ayaka Salgado MD Primary Care Provider [phone] Encounter Details Date Type Department Care Team ([facility] st Contact Info) Description 08/20/2024 Orders Only [facility] MED & PEDS [address] [place] [address] Ayaka Salgado MD [address] [place] [address] Social History Tobacco Use Types Packs/Day Years [...] [facility] [address] [place] [address] Alana Hook, RACHELLE [address] [place] [address] 02/22/2025 1:45 PM EDT Office Visit [facility] [address] [place] [address] Ayaka Salgado MD [address] [place] [address] documented as of this encounter Visit Diagnoses Not on filedocumented in this encounter Additional Health Concerns Assessment Noted Time PHQ-9 Depression Total Score: 7 08/29/20 22 10:26 AM EST documented as of this encounter Care Teams Telephone Order Clerk Relationship Specialty Start Date End Date Ayaka Salgado MD [address] [place] [address] PCP - General Internal Medicine 09/15/18 documented as of this encounter
--- OUTSIDE RECORDS SUMMARY | 2025-01-25 11:44 | XMS_ITS | Encounter Summary ---
Author Organization [employer] Address [address] [facility] [address] [place] [address] Care Team Providers Care Assistant Plant Controller Name Role Phone Ayaka Salgado MD Primary Care Provider [phone] Encounter Details Date Type Department Care Team ([facility] st Contact Info) Description 06/25/2024 Orders Only [facility] PEDS [address] [place] [address] ProviderRan MD Social History Tobacco Use Types [...] Description 02/01/2025 9:00 AM EDT Clinical Support [facility] MED & PEDS [address] [place] [address] Alana Hook RN [address] [place] [address] 02/22/2025 1:45 PM EDT Office Visit [facility] MED & PEDS [address] [place] [address] Ayaka Salgado MD [address] [place] [address] documented as of this encounter Procedures Procedure [...] as of this encounter Care Teams Assistant Plant Controller Relationship Specialty Start Date End Date Ayaka Salgado MD [address] [place] [address] PCP - General Internal Medicine 09/15/18 documented as of this encounter
--- OUTSIDE RECORDS SUMMARY | 2025-01-25 11:44 | XMS_ITS | Clinical Summary ---
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 5 tabs next friday 10 tablet 023 Active triamcinolone (Kenalog) 0.1 % creamIndications: Pruritus Apply topically if needed in the morning and at bedtime (pain and swelling). 80 g 2 023 Active doxycycline (Vibra-Tabs) 100 MG tabletIndications :Folliculitis [...] TWICE A DAY 100 each 5 024 Active glucose blood (OneTouch Verio) test stripIndications: [...] bedtime (pain and swelling). 80 g 3 024 Active gabapentin (Neurontin) 300 MG capsuleIndication s:Chronic [...] NEEDED FOR SLEEP 30 tablet 025 Active guaiFENesin (Mucinex) 600 MG 12 hr tablet Take 2 tablets (1,200 mg) by mouth 2 times daily. Do not crush, chew, or split. 120 tablet 025 2025 Active Umeclidinium Mikado (Incruse Ellipta) 62.5 MCG/ACT aerosol powderIndications :Chronic [...] EVERY 12 HOURS 120 tablet 3 Active simvastatin (Zocor) 20 MG tablet Take 1 tablet (20 mg) by mouth at bedtime. 90 tablet 3 Active oxyCODONE-acetami nophen (Percocet) 5-325 MG tabletIndications :Arthropathy Take 1 tablet by mouth every 6 (six) hours if needed for severe pain. 42 tablet Active zolpidem (Ambien) 10 MG tabletIndications :Primary insomnia TAKE 1 TABLET(10 MG) BY MOUTH AT BEDTIME NEEDED FOR SLEEP 30 tablet Active simvastatin (Zocor) 20 MG tablet [...] bedtime for sleep. 30 tablet 025 2024 Discontinued oxyCODONE-acetami nophen (Percocet) 5-325 MG tabletIndications :Arthropathy Take 1 tablet by mouth every 6 (six) hours if needed for severe pain. 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 11/13 Pruritus [...] Encounters Date Type Department Care Team Description 01/25/2025 Telephone [facility] MEDICINE [address] [place] [address] Ayaka Salgado MD Med Refill 01/22/2025 Refill [facility] MEDICINE [address] [place] [address] Ayaka Salgado MD Primary insomnia 01/19/2025 Refill [facility] CHC MED & PEDS [address] [place] [address] Alana Hook, RACHELLE Arthropathy 01/19/2025 Telephone [facility] MEDICINE [address] [place] [address] Ayaka Salgado MD Med Refill 01/19/2025 Telephone [facility] MEDICINE [address] [place] [address] Ayaka Salgado MD Med Refill 12/31/2024 Refill [facility] MED[facility]INE [address] [place] [address] Ayaka Salgado MD Arthropathy 12/28/2024 Refill [facility] MEDICINE [address] [place] [address] Ayaka Salgado MD 12/24/2024 Refill [facility] MEDICINE [address] [place] [address] Ayaka Salgado MD Primary insomnia 12/15/2024 Refill [facility] MED & PEDS [address] [place] [address] Ayaka Salgado MD Arthropathy 12/07/2024 Orders Only GENERIC EXTERNAL DATA DEPARTMENT Provider, Generic External Data 11/27/2024 Refill [facility] MED & PEDS [address] [place] [address] Ayaka Salgado MD 11/24/2024 9:00 AM EDT Clinical Support [facility] MED & PEDS [address] [place] [address] Alana Hook RN Back pain, unspecified back location, unspecified back pain laterality, unspecified chronicity (Primary Dx); 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 11/24/2024 Refill [facility] MED & PEDS [address] [place] [address] Alana Hook RN Primary osteoarthritis of both knees (Primary Dx); Primary insomnia 11/24/2024 Travel 11/23/2024 Orders Only [facility] External Provider, [facility] 11/22/2024 11:00 AM EDT Office Visit [facility] MED & PEDS [address] [place] [address] Ayaka Salgado MD Chronic obstructive pulmonary disease, unspecified COPD type (CMS/HCC) (Primary Dx); BOWMAN (dyspnea on exertion); 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); Primary insomnia 11/22/2024 Travel 11/03/2024 Refill [facility] MEDICINE [address] [place] [address] Ayaka Salgado MD Arthropathy from Last 3 [...] [facility] [address] [place] [address] Alana Hook RN [address] [place] [address] 02/22/2025 1:45 PM EDT Office Visit [facility] MED & PEDS [address] [place] [address] Ayaka Salgado MD [address] [place] [address] Health Maintenance Due Date Last Done Comments [...] (Patient Refused) Eye Exam 05/04/2025 05/04/2024, 05/29/2023 Diabetes: Hemoglobin A1C 05/25/2025 025, 07/29/2024, 07/12/2024, [...] DRUG SCREEN Routine 11/24/2024 9:21 AM EDT 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 Back pain, [...] (12/07/2024 10:29 AM EDT) Blood Type OP [facility] 12/07/2024 10:2 9 AM EDT 12/07/2024 2:21 PM EDT us Generic External Data Provider LAB BLOOD BANK TE ST ORDERABLES Final Result [facility] [address] [place] [phone] * POCT VESNA-14 Urine Drug Screen (11/24/2024 9:21 AM EDT) Oxycodone Screen, Urine Positive Urine Urine specimen obtained by clean catch procedure / Unknown 11/24/2024 9:21 AM EDT Narrative Alana Hook RN - 11/24/2024 9:21 AM EDT Lot# [id number] Exp: 05-04-26 us Ayaka Salgado MD POINT OF CARE TEST ENTER/ED IT ORDERABLES Final Result * CT Abdomen Pelvis w/o Contrast (11/23/2024 7:16 AM EDT) Anatomical Region Laterality Modality Body, Pelvis, Abdomen Computed T omography 11/23/2024 7:16 AM EDT Narrative 11/23/2024 1:44 PM EDT ? [facility] ?[address] ?[place], [place] [address] ? CT Scan Report ? Signed ? Patient: Snyder Saldivar,Lewis ?MR#: [id number] ?? [id number] ? : 1955 ?Acct:[id number] ? Age/Sex: 68 / M ?ADM Date: 11/23/24 ? Loc: HO.CT ? Attending Dr: Joey Duarte MD ? Ordering Physician: Joey Duarte MD ?? Date of Service: 11/23/24 ?? Procedure(s): CT abdomen pelvis wo IV con ?? Accession Number(s): [id number] ? cc: Ayaka Salgado MD; Joey Duarte MD ? Report Number: ?? [id number]: Total DLP = ??562.00 mGy-cm ?? EXAMINATION: [...] DD/ 0716 ? TD/TT: 11/23/24 0749 ? Field Case Manager: ? Procedure Note Donotjohninterpreter, Image - 11/23/[address] [place] [address] [address] Scan Report Signed Patient: Lewis GarrisonMR#: [id number] : 8Acct:[id number] Age/Sex: 68 / MADM Date: 11/23/24 Loc: HO.CT Attending Dr: Joey Duarte MD Ordering Physician: Joey Duarte MD Date of Service: 11/23/24 Procedure(s): CT abdomen pelvis wo IV con Accession Number(s): [id number] cc: Ayaka Salgado MD; Joey Duarte MD Report Number: [id number]: Total DLP = 562.00 mGy-cm EXAMINATION: CT [...] 11/23/24 1333 DD/ 0716 TD/TT: 11/23/24 0749 Field Case Manager: [facility] External Provider IMG CT PROCEDURES Final Result * POCT HGB A1C (11/22/2024 11:52 AM EDT) [facility] Hemoglobin A1C 5.9 4.0 - 6.0 % QC Media Lot # [id number] Lot# Expiration Date Blood 11/22/2024 11:5 2 AM EDT Ayaka Salgado MD POINT OF CARE TEST ENTER/ED IT ORDERABLES Final Result * POCT Glucose (11/22/2024 11:52 AM EDT) [facility] Glucose Blood, POC 192 60 - 200 mg/dL QC Media Lot # [id number] Comment:RANDOM Lot# Expiration Date [id number] Blood Capillary blood specimen / Unknown 11/22/2024 11:52 AM EDT Ayaka Salgado MD POINT OF CARE TEST ENTER/ED IT ORDERABLES Final Result * Diabetes Eye Exam (05/04/2024 12:18 PM EDT) Historical Provider HEALTH MAINTENANCE Final Result * (ABNORMAL) Lipid Panel, Standard (11/12/2023 9:08 AM EST) Triglycerides 55 <150 mg/dL [facility] Comment:Desirable Triglyceri de: less than 150 mg/dLBorderline High Triglyceride 150-199 mg/dLHigh Triglyceride: 200-499 mg/dLVery High Triglyceride: greater than or equal to 5OO mg/dL Cholesterol 101 <200 mg/dL [facility] Comment:Desirable Cholestero l: less than 200 mg/dLBorderline High Cholesterol: 200-239 mg/dLHigh Cholesterol: greater than 239 mg/dL LDL Cholesterol Calculated 57 <100 mg/dL [facility] Comment:Desirable LDL: less than 100 mg/dLNear Optimal/Above Optimal LDL: 110- 129 mg/dLBorderline High LDL: 130-159 mg/dLHigh LDL: 160-189 mg/dLVery High LDL: greater than or equal to 190 mg/dL HDL Cholesterol 33(L) >40 mg/dL [facility] Comment:Desirable HDL: great er than 40 mg/dL Note: This HDL assay may give artificially low results in patients with liver disease. Blood Venous blood specimen / Unknown 11/12/2023 9:08 AM EST 11/12/2023 2:41 PM EST Ayaka Salgado MD LAB BLOOD ORDERABLES Final Result [facility] [address] [place] [phone] from Last 3 Months or Most Recently Relevant to Health Maintenance Insurance [facility] MEDICARE ADVANTAGE HMO Care Teams Voltmeter Operator Relationship Specialty Start Date End Date Ayaka Salgado MD [address] [place] [address] AD[place] PCP - General Internal Medicine 09/15/18
--- OUTSIDE RECORDS SUMMARY | 2025-01-25 11:44 | XMS_ITS | Encounter Summary ---
Author Organization [employer] Address [address] [place] [address] 7 [place] [address] Care Team Providers Care Field Service Analyst Name Role Phone Ayaka Salgado MD Primary Care Provider [phone] Reason for Visit * Reason Onset Date Comments Med Refill 08/05/2024 Encounter Details Date Type Department Care Team ([facility] st Contact Info) Description 08/05/2024 Refill [facility] CHC MED & PEDS [address] [place] [address] Ayaka Salgado MD [address] [place] [address] Back pain, unspecified back location, unspecified back [...] 5-325 MG tablet To be sent to: [id number] - [place] - [address] [facility] [place] documented in this encounter Plan of Treatment Upcoming Encounters Date Type Department Care Team (Late st Contact Info) Description 02/01/2025 9:00 AM EDT Clinical Support [facility] MED & PEDS [address] [place] [address] Alana Hook RN [address] [place] [address] 02/22/2025 1:45 PM EDT Office Visit [facility] MED & PEDS [address] [place] [address] Ayaka Salgado MD [address] [place] [address] documented as of this encounter Visit Diagnoses Diagnosis Back pain, unspecified back location, unspecified back pain laterality, unspecified chronicity- Primary documented in this encounter Additional Health Concerns Assessment Noted Time PHQ-9 Depression Total Score: 7 08/29/20 22 10:26 AM EST documented as of this encounter Care Teams Field Service Analyst Relationship Specialty Start Date End Date Ayaka Salgado MD [address] [place] [address] PCP - General Internal Medicine 09/15/18 documented as of this encounter
--- OUTSIDE RECORDS SUMMARY | 2025-01-25 11:44 | XMS_ITS | Encounter Summary ---
Author Organization [employer] Address [address] [facility] 7 [place] [address] Care Team Providers Care Media Marketing Specialist Name Role Phone Ayaka Salgado MD Primary Care Provider [phone] Reason for Visit * Reason Onset Date Comments Med Refill 09/29/2024 Encounter Details Date Type Department Care Team (Late st Contact Info) Description 09/29/2024 Refill [facility] MEDICINE [address] [place] [address] Ayaka Salgado MD 505 [facility] [place] [id number] Arthropathy (Primary Dx) Social History Tobacco Use [...] 5-325 MG tablet To be sent to: [id number] [place] - [facility] [place] [facility] documented in this encounter Plan of Treatment Upcoming Encounters Date Type Department Care Team ([facility] st Contact Info) Description 02/01/2025 9:00 AM EDT Clinical Support [facility] MED [facility] PEDS [address] [place] [address] Alana Hook RN [address] [place] [address] 02/22/2025 1:45 PM EDT Office Visit [facility] MED & PEDS [address] [place] [address] Ayaka Salgado MD [address] [place] [address] documented as of this encounter Visit Diagnoses Diagnosis Arthropathy- Primary Unspecified arthropathy, site unspecified documented in this encounter Additional Health Concerns Assessment Noted Time PHQ-9 Depression Total Score: 7 08/29/20 22 10:26 AM EST documented as of this encounter Care Teams Media Marketing Specialist Relationship Specialty Start Date End Date Ayaka Salgado MD [address] [place] [address] PCP - General Internal Medicine 09/15/18 documented as of this encounter
--- OUTSIDE RECORDS SUMMARY | 2025-01-25 11:44 | XMS_ITS | Encounter Summary ---
Author Organization [employer] Address [address] [place] [address] 7 [place] [address] Care Team Providers Care Glass Enamel Mixer Name Role Phone Ayaka Salgado MD Primary Care Provider [phone] Reason for Visit * Reason Comments Med Refill Encounter Details Date Type Department Care Team ([facility] st Contact Info) Description 02/24/2023 Refill [facility] CHC MED & PEDS [address] [place] [address] Ayaka Salgado MD [address] [place] [address] Social History Tobacco Use Types Packs/Day Years [...] Upcoming Encounters Date Type Department Care Team ([facility] st Contact Info) Description 02/01/2025 9:00 AM EDT Clinical Support [facility] MED & PEDS [address] [place] [address] Alana Hook, RACHELLE [address] [place] [address] 02/22/2025 1:45 PM EDT Office Visit [facility] MED & PEDS [address] [place] [address] Ayaka Salgado MD [address] [place] [address] documented as of this encounter Visit Diagnoses Not on filedocumented in this encounter Additional Health Concerns Assessment Noted Time PHQ-9 Depression Total Score: 7 08/29/20 22 10:26 AM EST documented as of this encounter Care Teams Glass Enamel Mixer Relationship Specialty Start Date End Date Ayaka Salgado MD [address] [place] [address] PCP - General Internal Medicine 09/15/18 documented as of this encounter
--- OUTSIDE RECORDS SUMMARY | 2025-01-25 11:44 | XMS_ITS | Referral Summary ---
Author Organization [facility] Address [address] [place] [address] Care Team Providers Care Tube Bender Hand Name Role Phone Ayaka Salgado Primary Care Provider Encounters Date Type Department Care Team Description 11/24/2024 Orders Only [facility] Transplant Department [address] [place], [place] [phone] Shima Springer RN Pre-transplant evaluation for end stage renal disease (Primary Dx); Chronic kidney disease, stage V 11/23/2024 Telephone [facility] Transplant Department [address] [place], [place] [phone] Shima Springer, diplomatic interpreter/translator - Kidney Txp from Last 3 Months [...] Description 08/02/2025 8:20 AM EST Follow-Up [facility] Renal Transplant [address] [place] [address] Joey Duarte MD [address] [place] [address] 08/02/2025 9:00 AM EST Social Work [facility] Renal Transplant [address] [place] [address] Susan Babb LICSW [address] [place] [address] Procedures * Due to [place] state [...] 0.0 /100 WBCs 07/29/2024 1:35 PM EST [facility] nRBC # <0.01 <0.01 10*3/uL 07/29/2024 1:35 PM EST [facility] Blood Structure of peripheral vein / Unknown Venipuncture / Unknown 07/29/2024 12:57 PM EST 07/29/2024 1:29 PM EST Joey Duarte MD LAB BLOOD ORDERABLES María l Result [facility] [address] [place] [address], * Hepatitis C Antibody w/Reflex to PCR (07/29/2024 12:57 PM EST) Hepatitis C Antibody NON-REACT [place]AN[place]ORD NON-REACT [place]ORD 07/30/2024 3:03 AM EST [facility] Comment: HCV antibody was non-reactive. There is no laboratory evidence of HCV infection. In most cases, no further action is required. However, if recent HCV exposure is suspected, a test for HCV RNA (test code 62014) is suggested. For additional information please refer to http://education.Bracketz/faq/SNN07u6 (This link is being provided for informational/ educational purposes only.) Blood Structure of peripheral vein / Unknown Venipuncture / Unknown 07/29/2024 12:57 PM EST 07/29/2024 1:32 PM EST Narrative [facility] 07/30/2024 3:03 AM EST [facility] Received Date: Joey Duarte MD LAB BLOOD ORDERABLES María l Result [facility] [address] [facility] 3rd Floor, [place] [address], [place] [phone] [facility] [address] [facility] 3rd Floor, [place] [address], [place] [phone] * Phosphorus (07/29/2024 12:57 PM EST) Phosphorus 4.5 2.5 - 4.5 mg/dL 07/29/2024 2:00 PM EST [facility] CL[facility]ICAL PATHOLOGY LABOR[facility] Blood Structure of peripheral vein / Unknown Venipuncture / Unknown 07/29/2024 12:57 PM EST 07/29/2024 1:29 PM EST Joey Duarte MD LAB BLOOD ORDERABLES María l Result [facility] [address] [place] [phone], * (ABNORMAL) Hemoglobin A1c (07/29/2024 12:57 PM EST) Hemoglobin A1C 6.7(H) <5.7 % of total Hgb 07/30/2024 1:59 AM [facility] Comment: For someone without known diabetes, a [...] (MG/DL) 146 mg/dL 07/30/2024 1:59 AM EST [facility] e[facility] (MMOL/L) 8.1 mmol/L 07/30/2024 1:59 AM [facility] Blood Structure of peripheral vein / Unknown Venipuncture / Unknown 07/29/2024 12:57 PM EST 07/29/2024 1:32 PM EST Narrative [facility] - 07/30/2024 1:59 AM EST [facility] Received Date: Joey Duarte MD LAB BLOOD ORDERABLES María l Result [facility] [place] [address], [place] [address], [place] [phone] [facility] [address], [address] [place] [address], [place] [phone] from Last 3 Months or Most Recently Relevant to Health Maintenance Insurance [facility] Advance Directives Documents on File Type Date Recorded Patient Portable Pinch Riveter Expl anation Health Care Proxy 08/05/2024 4:14 PM 11- Care Teams Tube Bender Hand Relationship Specialty Start Date End Date Ayaka Salgado [address] [place] [address] PCP - General Internal Medicine 07/29/24
--- OUTSIDE RECORDS SUMMARY | 2025-01-25 11:44 | XMS_ITS | Encounter Summary ---
Author Organization [facility] [address] [facility] [address] [place] [address] Phone Care Team Providers Care Automotive Fuel Injection Servicer Name Role Phone Jayme Salgado MD Primary Care Provider [phone] Reason for Visit * Reason Comments Med Refill Encounter Details Date Type Department Care Team (Late st Contact Info) Description 04/28/2023 Refill [facility] [address] [place] [address] [facility] [place] [id number] Mumtaz Childress MD [address] [facility] [address] [place] [address] Type 2 diabetes mellitus with [...] (HCC) documented in this encounter Care Teams Automotive Fuel Injection Servicer Relationship Specialty Start Date End Date Jayme Salgado MD [address] [place] [address] PCP - General 09/25/20 documented as of this encounter
--- OUTSIDE RECORDS SUMMARY | 2025-01-25 11:44 | XMS_ITS | Clinical Summary ---
Author Organization [facility] Address [address] [facility] [address] [place] [place] [address] Phone Care Team Providers Care Inspector And Clipper Name Role Phone Jayme Salgado MD Primary Care Provider [phone] Allergies Active Allergy Reactions Criticality Noted Date [...] patient's age to complete this topic Insurance [facility] Medicare [facility] Medicare Care Teams Inspector And Clipper Relationship Specialty Start Date End Date Jayme Salgado MD [address] [place], [place] [address]Dee ID PCP - General 09/25/20
--- OUTSIDE RECORDS SUMMARY | 2025-01-25 11:45 | XMS_ITS ---
Author Organization [employer] Address [address] [place] [address] 7 [place] [address] Care Team Providers Care Public Health Assistant Name Role Phone Ayaka Salgado MD Primary Care Provider [phone] [employer] DEVELOPER Status:Enrolled (Active) Start date:12/20/2022 Enrollment date:12/20/2022 Case Team Name Relationship Phone Alana Hook RN Registered Nurse(Responsible S taff) Continued Care and Services Coordination
--- OUTSIDE RECORDS SUMMARY | 2025-01-25 11:45 | XMS_ITS | Encounter Summary ---
Author Organization [employer] Address [address] [facility] 7 [place] [address] Care Team Providers Care Reconstructive Surgeon Name Role Phone Ayaka Salgado MD Primary Care Provider [phone] Reason for Visit * Reason Onset Date Comments Med Refill 07/28/2023 Encounter Details Date Type Department Care Team ([facility] Contact Info) Description 07/28/2023 Telephone [facility] CHC MED & PEDS [address] [place] [address] Ayaka Salgado MD [address] [place] [address] Med Refill Social History Tobacco Use Types [...] (Percocet) 5-325 MG tablet Please sent to [id number] - [place] - [address] [facility] [place] documented in this encounter Plan of Treatment Upcoming Encounters Date Type Department Care Team ([facility] st Contact Info) Description 02/01/2025 9:00 AM EDT Clinical Support [facility] MED & PEDS [address] [place] [address] Alana Hook RN [address] [place] [address] 02/22/2025 1:45 PM EDT Office Visit [facility] MED & PEDS [address] [place] [address] Ayaka Salgado MD [address] [place] [address] documented as of this encounter Visit Diagnoses Not on filedocumented in this encounter Additional Health Concerns Assessment Noted Time PHQ-9 Depression Total Score: 7 08/29/20 22 10:26 AM EST documented as of this encounter Care Teams Reconstructive Surgeon Relationship Specialty Start Date End Date Ayaka Salgado MD [address] [place] [address] PCP - General Internal Medicine 09/15/18 documented as of this encounter
--- OUTSIDE RECORDS SUMMARY | 2025-01-25 11:45 | XMS_ITS | Encounter Summary ---
Author Organization [employer] Address 75 [facility] [address], [place] [address] Care Team Providers Care Bar Host/Hostess Name Role Phone Ayaka Salgado MD Primary Care Provider [phone] Reason for Visit * Reason Onset Date Comments Med Refill 01/19/2025 Encounter Details Date Type Department Care Team ([facility] st Contact Info) Description 01/19/2025 Telephone [facility] MEDICINE [address] [place], [place] [phone] Ayaka Salgado MD 505 [facility] [place] [address] Med Refill Social History Tobacco Use Types [...] the past 12 months, has t he [employer], gas, oil or water company threatened to [...] Miscellaneous Notes * Telephone Encounter - Lissa Whtie LPN - 01/19/2025 8:27 AM EDT Melatonin has refills and Ambien to soon for refill PUBLIC AFFAIRS MANAGER checked on 01/19/25 last filled on 12/26/24 #30. * Telephone Encounter - Cleopatra Ortiz - 01/19/2025 8:14 AM EDT TC from pt requesting medication refill. Medications needing refill : melatonin 5 MG tablet zolpidem (Ambien) 10 MG tablet To be sent to: [facility] #[id number] - [place] - [address] AT [facility] Sander SANCHES documented in this encounter Plan of Treatment Upcoming Encounters Date Type Department Care Team ([facility] st Contact Info) Description 02/01/2025 9:00 AM EDT Clinical Support [facility] MED & PEDS 505 [place] [address] Alana Hook, RACHELLE 505 [place] [address] 02/22/2025 1:45 PM EDT Office Visit [facility] 505 [place] [address] Ayaka Salgado MD 505 [place] [address] documented as of this encounter Visit Diagnoses Not on filedocumented in this encounter Additional Health Concerns Assessment Noted Time PHQ-9 Depression Total Score: 12 025 11:13 AM EDT documented as of this encounter Care Teams Bar Host/Hostess Relationship Specialty Start Date End Date Ayaka Salgado MD 505 [place] [address] PCP - General Internal Medicine 09/15/18 documented as of this encounter
--- OUTSIDE RECORDS SUMMARY | 2025-01-25 11:45 | XMS_ITS | Encounter Summary ---
Author Organization [employer] Address [address] [place] [address] 7 [place] [address] Care Team Providers Care It Sales Executive Name Role Phone Ayaka Salgado MD Primary Care Provider [phone] Reason for Visit * Reason Comments Med Refill Encounter Details Date Type Department Care Team ([facility] st Contact Info) Description 07/28/2023 Refill [facility] MED & PEDS [address] [place] [address] Ayaka Salgado MD 505 [place] [address] Social History Tobacco Use Types Packs/Day Years [...] Description 02/01/2025 9:00 AM EDT Clinical Support [facility] MED & PEDS [address] [place] [address] Alana Hook, RACHELLE 505 [place] [address] 02/22/2025 1:45 PM EDT Office Visit [facility] MED & PEDS 505 [place] [address] Ayaka Salgado MD 505 [place] [address] documented as of this encounter Visit Diagnoses Not on filedocumented in this encounter Additional Health Concerns Assessment Noted Time PHQ-9 Depression Total Score: 7 08/29/20 22 10:26 AM EST documented as of this encounter Care Teams It Sales Executive Relationship Specialty Start Date End Date Ayaka Salgado MD 505 [place] [address] PCP - General Internal Medicine 09/15/18 documented as of this encounter
--- OUTSIDE RECORDS SUMMARY | 2025-01-25 11:45 | XMS_ITS | Encounter Summary ---
Author Organization [employer] Address 75 [facility] 7t [place] [address] Care Team Providers Care Account Director Name Role Phone Ayaka Salgado MD Primary Care Provider [phone] Encounter Details Date Type Department Care Team ([facility] st Contact Info) Description 09/22/2023 Orders Only [facility] MED & PEDS [address] [place] [address] Ayaka Salgado MD 505 [place] [address] Simple chronic bronchitis (CMS/HCC) (Primary Dx) Social [...] [facility] MED & PEDS 505 [place] [address] Alana Hook, RACHELLE 505 [place] [address] 02/22/2025 1:45 PM EDT Office Visit [facility] MED & PEDS 505 [place] [address] Ayaka Salgado MD 505 [place] [address] documented as of this encounter Visit Diagnoses Diagnosis Simple chronic bronchitis (CMS/HCC)- Primary Simple chronic bronchitis documented in this encounter Additional Health Concerns Assessment Noted Time PHQ-9 Depression Total Score: 7 08/29/20 22 10:26 AM EST documented as of this encounter Care Teams Account Director Relationship Specialty Start Date End Date Ayaka Salgado MD 505 [place] [address] PCP - General Internal Medicine 09/15/18 documented as of this encounter
--- OUTSIDE RECORDS SUMMARY | 2025-01-25 11:45 | XMS_ITS | Encounter Summary ---
Author Organization [email or web address] Address [address] [place] [address] Care Team Providers Care Assistant Spa Manager Name Role Phone Ayaka Salgado MD Primary Care Provider [phone] Reason for Visit * Reason Onset Date Comments Letter Accomodation 12/12/2022 Encounter Details Date Type Department Care Team ([facility] st Contact Info) Description 12/12/2022 Telephone [facility] CHC MED & PEDS 505 [place] [address] Ayaka Salgado MD 505 [place] [address] Letter Accomodation Social History Tobacco Use Types [...] hisPercocet. Advised message will be forwarded to HOUSE WIRER HELPER nurse regarding his request. Pt verbalizes understanding. * Telephone Encounter - Abiel Mills - 12/12/2022 9:32 AM EDT Tc from pt requesting an Accomodation letter. Please contact pt at [phone] documented in this encounter Plan of Treatment Upcoming Encounters Date Type Department Care Team (Late st Contact Info) Description 02/01/2025 9:00 AM EDT Clinical Support [facility] MED & PEDS 505 [place] [address] Alana Hook, RN 505 [place] [address] 02/22/2025 1:45 PM EDT Office Visit [facility] MED & PEDS 505 [place] [address] Ayaka Salgado MD 505 [place] [address] documented as of this encounter Visit Diagnoses Diagnosis Congestive heart failure, unspecified HF chronicity, unspecified heart failure type (CMS/HCC) Primary osteoarthritis involving multiple joints documented in this encounter Additional Health Concerns Assessment Noted Time PHQ-9 Depression Total Score: 7 08/29/20 22 10:26 AM EST documented as of this encounter Care Teams Assistant Spa Manager Relationship Specialty Start Date End Date Ayaka Salgado MD 505 [place] [address] PCP - General Internal Medicine 09/15/18 documented as of this encounter
--- OUTSIDE RECORDS SUMMARY | 2025-01-25 11:45 | XMS_ITS | Encounter Summary ---
Author Organization [employer] Address [address] [place] [address] [place], [place] [address] Care Team Providers Care Machine Tool Technology Instructor Name Role Phone Ayaka Salgado MD Primary Care Provider [phone] Reason for Visit * Reason Onset Date Comments Med Refill 12/12/2022 Encounter Details Date Type Department Care Team ([facility] st Contact Info) Description 12/12/2022 Telephone [facility] MED & PEDS 505 [place] [address] Ayaka Salgado MD 505 [place] [address] Med Refill Social History Tobacco Use Types [...] (Percocet) 5-325 MG tablet Please sent to [id number] - [place] - [address] [facility] documented in this encounter Plan of Treatment Upcoming Encounters Date Type Department Care Team (Late st Contact Info) Description 02/01/2025 9:00 AM EDT Clinical Support [facility] MED & PEDS 505 [place] [address] Alana Hook, RN 505 [place] [address] 02/22/2025 1:45 PM EDT Office Visit [facility] [address] [place] [address] Ayaka Salgado MD 505 [place] [address] documented as of this encounter Visit Diagnoses Not on filedocumented in this encounter Additional Health Concerns Assessment Noted Time PHQ-9 Depression Total Score: 7 08/29/20 22 10:26 AM EST documented as of this encounter Care Teams Machine Tool Technology Instructor Relationship Specialty Start Date End Date Ayaka Salgado MD 505 [place] [address] PCP - General Internal Medicine 09/15/18 documented as of this encounter
--- OUTSIDE RECORDS SUMMARY | 2025-01-25 11:45 | XMS_ITS | Encounter Summary ---
Author Organization [employer] Address 75 [facility] 7[place] [address] Care Team Providers Care Registered Nurse Name Role Phone Ayaka Salgado MD Primary Care Provider [phone] Reason for Visit * Reason Onset Date Comments Med Refill 05/11/2024 Encounter Details Date Type Department Care Team ([facility] st Contact Info) Description 05/11/2024 Telephone [facility] MEDICINE [address] [place], [place] [phone] Ayaka Salgado MD 505 [facility] [place] [address] Med Refill Social History Tobacco Use Types [...] Description 02/01/2025 9:00 AM EDT Clinical Support [facility] MED & PEDS 505 [place] [address] Alana Hook RN 505 [place] [address] 02/22/2025 1:45 PM EDT Office Visit [facility]ED[facility] 505 [place] [address] Ayaka Salgado MD 505 [place] [address] documented as of this encounter Visit Diagnoses Not on filedocumented in this encounter Additional Health Concerns Assessment Noted Time PHQ-9 Depression Total Score: 7 12/15/20 22 10:26 AM EST documented as of this encounter Care Teams Registered Nurse Relationship Specialty Start Date End Date Ayaka Salgado MD [address] [place] [address] PCP - General Internal Medicine 09/15/18 documented as of this encounter
--- OUTSIDE RECORDS SUMMARY | 2025-01-25 11:45 | XMS_ITS | Encounter Summary ---
Author Organization [employer] Address 75 [facility] 7[place] [address] Care Team Providers Care Supervisor Laundry Name Role Phone Ayaka Salgado MD Primary Care Provider [phone] Reason for Visit * Reason Onset Date Comments Med Refill 01/19/2025 Encounter Details Date Type Department Care Team ([facility] st Contact Info) Description 01/19/2025 Telephone [facility] MEDICINE 230 [place], [place] [phone] Ayaka Salgado MD 505 [facility] [place] [address] Med Refill Social History Tobacco Use Types [...] the past 12 months, has t he [employer], gas, oil or water company threatened to [...] Telephone Encounter - Cleopatra Ortiz - 01/19/2025 8:12 AM EDT TC from pt requesting medication refill. Medications needing refill : oxyCODONE-acetaminophen (Percocet) 5-325 MG tablet To be sent to: [facility][id number] [place] - [facility] [address] [facility] documented in this encounter Plan of Treatment Upcoming Encounters Date Type Department Care Team ([facility] st Contact Info) Description 02/01/2025 9:00 AM EDT Clinical Support [facility] MED & PEDS [address] [facility] [place] [address] Alana Hook, RACHELLE [address] [facility] [place] [address] 02/22/2025 1:45 PM EDT Office Visit [facility] PED[facility] 505 [place] [address] Ayaka Salgado MD 505 [place] [address] documented as of this encounter Visit Diagnoses Not on filedocumented in this encounter Additional Health Concerns Assessment Noted Time PHQ-9 Depression Total Score: 12 025 11:13 AM EDT documented as of this encounter Care Teams Supervisor Laundry Relationship Specialty Start Date End Date Ayaka Salgado MD 505 [place] [address] PCP - General Internal Medicine 09/15/18 documented as of this encounter
--- OUTSIDE RECORDS SUMMARY | 2025-01-25 11:45 | XMS_ITS | Encounter Summary ---
Author Organization [employer] Address 75 [facility] 7t [place] [address] Care Team Providers Care Superintendent Drilling Name Role Phone Ayaka Salgado MD Primary Care Provider [phone] Encounter Details Date Type Department Care Team (Late st Contact Info) Description 10/11/2022 Orders Only [facility] MEDICINE 230 [place] [address] Ayaka Salgado MD [address] [facility] [place] [address] Congestive heart failure, unspecified HF chronicity, unspecified [...] Encounters Date Type Department Care Team ([facility] st Contact Info) Description 02/01/2025 9:00 AM EDT Clinical Support [facility] MED & PEDS 505 [place] [address] Alana Hook RN 505 [place] [address] 02/22/2025 1:45 PM EDT Office Visit [facility] MED & PEDS 505 [place] [address] Ayaka Salgado MD 505 [place] [address] documented as of this encounter Visit Diagnoses Diagnosis Congestive heart failure, unspecified HF chronicity, unspecified heart failure type (CMS/HCC) Edema of foot Edema documented in this encounter Additional Health Concerns Assessment Noted Time PHQ-9 Depression Total Score: 7 08/29/20 22 10:26 AM EST documented as of this encounter Care Teams Superintendent Drilling Relationship Specialty Start Date End Date Ayaka Salgado MD 505 [place] [address] PCP - General Internal Medicine 09/15/18 documented as of this encounter
--- OUTSIDE RECORDS SUMMARY | 2025-01-25 11:45 | XMS_ITS | Encounter Summary ---
Author Organization [employer] Address 75 [facility] [place] [address] Care Team Providers Care Plumbing Warehouse Helper Name Role Phone Ayaka Salgado MD Primary Care Provider [phone] Reason for Visit * Reason Onset Date Comments r/s appt 08/23/2022 Encounter Details Date Type Department Care Team (Late st Contact Info) Description 08/23/2022 Telephone [facility] MEDICINE [address] [place] [address] Ayaka Salgado MD 505 [facility] [place] [address] r/s appt Social History Tobacco Use Types [...] appt has been canceled. Please contact at [phone] documented in this encounter Plan of Treatment Upcoming Encounters Date Type Department Care Team (Late Contact Info) Description 02/01/2025 9:00 AM EDT Clinical Support [facility] MED & PEDS 505 [place] [address] Alana Hook, RN 505 [place] [address] 02/22/2025 1:45 PM EDT Office Visit [facility] MED & PEDS 505 [place] [address] Ayaka Salgado MD 505 [place] [address] documented as of this encounter Visit Diagnoses Not on filedocumented in this encounter Care Teams Plumbing Warehouse Helper Relationship Specialty Start Date End Date Ayaka Salgado MD 505 [place] [address] PCP - General Internal Medicine 09/15/18 documented as of this encounter
--- OUTSIDE RECORDS SUMMARY | 2025-01-25 11:45 | XMS_ITS | Encounter Summary ---
Author Organization [employer] Address 75 [facility] 7t [place] [address] Care Team Providers Care Cooler Supervisor Name Role Phone Ayaka Salgado MD Primary Care Provider [phone] Encounter Details Date Type Department Care Team ([facility] st Contact Info) Description 08/18/2024 Telephone [facility] MEDICINE 230 [place] [address] Ayaka Salgado MD [address] [place] [phone] Social History Tobacco Use Types Packs/Day Years [...] is your housing situation today? I have havenric mott 06/30/[address] you [...] 9:00 AM EDT Clinical Support [facility] MED & PEDS 505 [place] [address] Alana Hook, RACHELLE 505 [place] [address] 02/22/2025 1:45 PM EDT Office Visit [facility] MED & PEDS 505 [place] [address] Ayaka Salgado MD 505 [place] [address] documented as of this encounter Visit Diagnoses Not on filedocumented in this encounter Additional Health Concerns Assessment Noted Time PHQ-9 Depression Total Score: 7 08/29/20 22 10:26 AM EST documented as of this encounter Care Teams Cooler Supervisor Relationship Specialty Start Date End Date Ayaka Salgado MD 505 [place] [address] PCP - General Internal Medicine 09/15/18 documented as of this encounter
--- OUTSIDE RECORDS SUMMARY | 2025-01-25 11:45 | XMS_ITS | Encounter Summary ---
Author Organization [employer] Address 75 [facility] 7 [place] [address] Care Team Providers Care Pipe Cutter Name Role Phone Ayaka Salgado MD Primary Care Provider [phone] Reason for Visit * Reason Comments Med Refill Encounter Details Date Type Department Care Team (Late st Contact Info) Description 10/07/2022 Refill [facility] 230 [place] [address] Ayaka Salgado MD 505 [facility] [place] [address] Primary osteoarthritis involving multiple joints Social History [...] [facility] MED & PEDS 505 [place] [address] Alana Hook RN 505 [place] [address] 02/22/2025 1:45 PM EDT Office Visit [facility] MED & PEDS 505 [place] [address] Ayaka Salgado MD 505 [place] [address] documented as of this encounter Visit Diagnoses Diagnosis Primary osteoarthritis involving multiple joints documented in this encounter Additional Health Concerns Assessment Noted Time PHQ-9 Depression Total Score: 7 08/29/20 22 10:26 AM EST documented as of this encounter Care Teams Pipe Cutter Relationship Specialty Start Date End Date Ayaka Salgado MD 505 [place] [address] PCP - General Internal Medicine 09/15/18 documented as of this encounter
--- OUTSIDE RECORDS SUMMARY | 2025-01-25 11:45 | XMS_ITS | Encounter Summary ---
Author Organization [employer] Address 75 [facility] 7t [place] [address] Care Team Providers Care Proposal Manager Name Role Phone Ayaka Salgado MD Primary Care Provider [phone] Encounter Details Date Type Department Care Team ([facility] st Contact Info) Description 05/26/2024 Orders Only [facility] MED & PEDS [address] [place] [address] Ayaka Salgado MD 505 [place] [address] Simple chronic bronchitis (CMS/HCC) (Primary Dx) Social [...] [facility] [address] [place] [address] Alana Hook, RACHELLE 505 [place] [address] 02/22/2025 1:45 PM EDT Office Visit [facility] MED & PEDS [address] [place] [address] Ayaka Salgado MD 505 [place] [address] documented as of this encounter Visit Diagnoses Diagnosis Simple chronic bronchitis (CMS/HCC)- Primary Simple chronic bronchitis documented in this encounter Additional Health Concerns Assessment Noted Time PHQ-9 Depression Total Score: 7 08/29/20 22 10:26 AM EST documented as of this encounter Care Teams Proposal Manager Relationship Specialty Start Date End Date Ayaka Salgado MD [address] [place] [address] PCP - General Internal Medicine 09/15/18 documented as of this encounter
--- OUTSIDE RECORDS SUMMARY | 2025-01-25 11:45 | XMS_ITS | Encounter Summary ---
Author Organization [employer] Address 75 [facility] 7[place] [address] Care Team Providers Care Moisture Meter Reader Name Role Phone Ayaka Salgado MD Primary Care Provider [phone] Reason for Visit * Reason Onset Date Comments Med Refill 12/01/2023 Encounter Details Date Type Department Care Team ([facility] st Contact Info) Description 12/01/2023 Telephone [facility] MEDICINE 230 [place], [place] [phone] Ayaka Salgado MD 505 [facility] [place] [address] Med Refill Social History Tobacco Use Types [...] 10 MG tablet To be sent to: [id number] - [place] - [facility] [address] AT [facility] [address] documented in this encounter Plan of Treatment Upcoming Encounters Date Type Department Care Team ([facility] st Contact Info) Description 02/01/2025 9:00 AM EDT Clinical Support [facility] MED & PEDS 505 [place] [address] Alana Hook RN 505 [place] [address] 02/22/2025 1:45 PM EDT Office Visit [facility] MED & PEDS 505 [place] [address] Ayaka Salgado MD 505 [place] [address] documented as of this encounter Visit Diagnoses Not on filedocumented in this encounter Additional Health Concerns Assessment Noted Time PHQ-9 Depression Total Score: 7 08/29/20 22 10:26 AM EST documented as of this encounter Care Teams Moisture Meter Reader Relationship Specialty Start Date End Date Ayaka Salgado MD [address] [place] [address] PCP - General Internal Medicine 09/15/18 documented as of this encounter
--- OUTSIDE RECORDS SUMMARY | 2025-01-25 11:45 | XMS_ITS | Encounter Summary ---
Author Organization [employer] Address 75 [facility] 7t [place] [address] Care Team Providers Care Mental Hygiene Consultant Name Role Phone Ayaka Salgado MD Primary Care Provider [phone] Reason for Visit * Reason Comments Med Refill Encounter Details Date Type Department Care Team (Late st Contact Info) Description 03/02/2024 Refill [facility] MEDICINE 230 [place] [address] Ayaka Salgado MD 505 [facility] [place] [address] Primary osteoarthritis involving multiple joints Social History [...] Description 02/01/2025 9:00 AM EDT Clinical Support [facility] MED & PEDS 505 [place] [address] Alana Hook, RACHELLE 505 [place] [address] 02/22/2025 1:45 PM EDT Office Visit [facility] MED & PEDS 505 [place] [address] Ayaka Salgado MD 505 [place] [address] documented as of this encounter Visit Diagnoses Diagnosis Primary osteoarthritis involving multiple joints documented in this encounter Additional Health Concerns Assessment Noted Time PHQ-9 Depression Total Score: 7 08/29/20 22 10:26 AM EST documented as of this encounter Care Teams Mental Hygiene Consultant Relationship Specialty Start Date End Date Ayaka Salgado MD 505 [place] [address] PCP - General Internal Medicine 09/15/18 documented as of this encounter
--- OUTSIDE RECORDS SUMMARY | 2025-01-25 11:45 | XMS_ITS | Encounter Summary ---
Author Organization [employer] Address [address] [place] [address] [place] [address] Care Team Providers Care Master At Arms Name Role Phone Ayaka Salgado MD Primary Care Provider [phone] Reason for Visit * Reason Onset Date Comments Med Refill 12/12/2022 Encounter Details Date Type Department Care Team ([facility] st Contact Info) Description 12/12/2022 Telephone [facility] MED & PEDS [address] [place] [address] Ayaka Salgado MD 505 [place] [address] Med Refill Social History Tobacco Use Types [...] (Norvasc) 5 MG tablet Please sent to [facility][id number] - [place], [place] - [address] [facility] documented in this encounter Plan of Treatment Upcoming Encounters Date Type Department Care Team ([facility] st Contact Info) Description 02/01/2025 9:00 AM EDT Clinical Support [facility] MED & PEDS [address] [place] [address] Alana Hook, RACHELLE 505 [place] [address] 02/22/2025 1:45 PM EDT Office Visit [facility] MED & PEDS 505 [place] [address] Ayaka Salgado MD 505 [place] [address] documented as of this encounter Visit Diagnoses Not on filedocumented in this encounter Additional Health Concerns Assessment Noted Time PHQ-9 Depression Total Score: 7 08/29/20 22 10:26 AM EST documented as of this encounter Care Teams Master At Arms Relationship Specialty Start Date End Date Ayaka Salgado MD 505 [place] [address] PCP - General Internal Medicine 09/15/18 documented as of this encounter
--- OUTSIDE RECORDS SUMMARY | 2025-01-25 11:45 | XMS_ITS | Encounter Summary ---
Author Organization [employer] Address [address] [facility] [place], [place] [address] Care Team Providers Care Double End Chucking Machine Operator Name Role Phone Ayaka Salgado MD Primary Care Provider [phone] Reason for Visit * Reason Onset Date Comments Med Refill 01/25/2025 Encounter Details Date Type Department Care Team ([facility] st Contact Info) Description 01/25/2025 Telephone [facility] MEDICINE [address] [place] [address] Ayaka Salgado MD 505 [facility] [place] [address] Med Refill Social History Tobacco Use Types [...] the past 12 months, has t he [email or web address], gas, oil or water company threatened to [...] Telephone Encounter - Lissa White LPN - 01/25/2025 9:36 AM EDT Medication pended to PCP for approval. * Telephone Encounter - Cleopatra Ortiz - 01/25/2025 9:30 AM EDT TC from pt requesting medication refill. Medications needing refill : zolpidem (Ambien) 10 MG tablet To be sent to: [id number] [place] - [address] [facility] [place] documented in this encounter Plan of Treatment Upcoming Encounters Date Type Department Care Team ([facility] st Contact Info) Description 02/01/2025 9:00 AM EDT Clinical Support [facility] MED & PEDS [address] [place] [address] Alana Hook RN [address] [place] [address] 02/22/2025 1:45 PM EDT Office Visit [facility] MED & PEDS [address] [place] [address] Ayaka Salgado MD 505 [place] [address] documented as of this encounter Visit Diagnoses Not on filedocumented in this encounter Additional Health Concerns Assessment Noted Time PHQ-9 Depression Total Score: 12 025 11:13 AM EDT documented as of this encounter Care Teams Double End Chucking Machine Operator Relationship Specialty Start Date End Date Ayaka Salgado MD 505 [place] [address] PCP - General Internal Medicine 09/15/18 documented as of this encounter
--- OUTSIDE RECORDS SUMMARY | 2025-01-25 11:45 | XMS_ITS | Encounter Summary ---
Author Organization [employer] Address [address] [facility] 7t [place] [address] Care Team Providers Care Developer Architect Name Role Phone Ayaka Salgado MD Primary Care Provider [phone] Encounter Details Date Type Department Care Team ([facility] st Contact Info) Description 04/29/2024 Telephone [facility] MEDICINE [address] [place] [address] Ayaka Salgado MD [address] [place] [id number] Social History Tobacco Use Types Packs/Day Years [...] 10 MG tablet To be sent to: [facility][id number] - [place], [place] - [address] [facility] [address] documented in this encounter Plan of Treatment Upcoming Encounters Date Type Department Care Team ([facility] st Contact Info) Description 02/01/2025 9:00 AM EDT Clinical Support [facility] MED & PEDS [address] [place] [address] Alana Hook RN 505 [place] [address] 02/22/2025 1:45 PM EDT Office Visit [facility] MED & PEDS [address] [place] [address] Ayaka Salgado MD 505 [place] [address] documented as of this encounter Visit Diagnoses Not on filedocumented in this encounter Additional Health Concerns Assessment Noted Time PHQ-9 Depression Total Score: 7 08/29/20 22 10:26 AM EST documented as of this encounter Care Teams Developer Architect Relationship Specialty Start Date End Date Ayaka Salgado MD [address] [place] [address] PCP - General Internal Medicine 09/15/18 documented as of this encounter
--- OUTSIDE RECORDS SUMMARY | 2025-01-25 11:45 | XMS_ITS | Encounter Summary ---
Author Organization [employer] Address [address] [facility] 7 [place] [address] Care Team Providers Care Switch Operators Supervisor Name Role Phone Ayaka Salgado MD Primary Care Provider [phone] Reason for Visit * Reason Onset Date Comments Med Refill 08/09/2024 Encounter Details Date Type Department Care Team ([facility] st Contact Info) Description 08/09/2024 Telephone [facility] MEDICINE [address] [place], [place] [phone] Ayaka Salgado MD 505 [facility] [place] [address] Med Refill Social History Tobacco Use Types [...] 5-325 MG tablet To be sent to: [facility] #[id number] documented in this encounter Plan of Treatment Upcoming Encounters Date Type Department Care Team ([facility] st Contact Info) Description 02/01/2025 9:00 AM EDT Clinical Support [facility] MED & PEDS 505 [place] [address] Alana Hook RN 505 [place] [address] 02/22/2025 1:45 PM EDT Office Visit [facility] MED & PEDS 505 [place] [address] Ayaka Salgado MD 505 [place] [address] documented as of this encounter Visit Diagnoses Not on filedocumented in this encounter Additional Health Concerns Assessment Noted Time PHQ-9 Depression Total Score: 7 08/29/20 22 10:26 AM EST documented as of this encounter Care Teams Switch Operators Supervisor Relationship Specialty Start Date End Date Ayaka Salgado MD [address] [place] [address] PCP - General Internal Medicine 09/15/18 documented as of this encounter
--- OUTSIDE RECORDS SUMMARY | 2025-01-25 11:45 | XMS_ITS | Encounter Summary ---
Author Organization [employer] Address [address] [place] [address] 7 [place] [address] Care Team Providers Care Events Intern Name Role Phone Ayaka Salgado MD Primary Care Provider [phone] Reason for Visit * Reason Comments Med Refill Encounter Details Date Type Department Care Team ([facility] st Contact Info) Description 01/06/2023 Refill [facility] MED & PEDS [address] [place] [address] Ayaka Salgado MD 505 [place] [address] Primary osteoarthritis involving multiple joints Social History [...] [facility] MED & PEDS 505 [place] [address] Alana Hook RN 505 [place] [address] 02/22/2025 1:45 PM EDT Office Visit [facility] MED & PEDS [address] [place] [address] Ayaka Salgado MD 505 [place] [address] documented as of this encounter Visit Diagnoses Diagnosis Primary osteoarthritis involving multiple joints documented in this encounter Additional Health Concerns Assessment Noted Time PHQ-9 Depression Total Score: 7 08/29/20 22 10:26 AM EST documented as of this encounter Care Teams Events Intern Relationship Specialty Start Date End Date Ayaka Salgado MD 505 [place] [address] PCP - General Internal Medicine 09/15/18 documented as of this encounter
--- OUTSIDE RECORDS SUMMARY | 2025-01-25 11:45 | XMS_ITS | Encounter Summary ---
Author Organization [employer] Address [address] [place] [address] 7 [place] [address] Care Team Providers Care Special Education Superintendent Name Role Phone Ayaka Salgado MD Primary Care Provider [phone] Encounter Details Date Type Department Care Team (Late st Contact Info) Description 01/23/2023 Abstract [facility] 230 [place] [address] Ayaka Salgado MD 505 [place], [place] [phone] Social History Tobacco Use Types Packs/Day Years [...] [facility] MED & PEDS 505 [place] [address] Alana Hook RN 505 [place] [address] 02/22/2025 1:45 PM EDT Office Visit [facility] MED & PEDS 505 [place] [address] Ayaka Salgado MD 505 [place] [address] documented as of this encounter Visit Diagnoses Not on filedocumented in this encounter Additional Health Concerns Assessment Noted Time PHQ-9 Depression Total Score: 7 08/29/20 22 10:26 AM EST documented as of this encounter Care Teams Special Education Superintendent Relationship Specialty Start Date End Date Ayaka Salgado MD 505 [place] [address] PCP - General Internal Medicine 09/15/18 documented as of this encounter
--- OUTSIDE RECORDS SUMMARY | 2025-01-25 11:45 | XMS_ITS | Encounter Summary ---
Author Organization [employer] Address [address] [facility] 7t [place] [address] Care Team Providers Care Dictating Machine Transcriber Name Role Phone Ayaka Salgado MD Primary Care Provider [phone] Reason for Visit * Reason Comments Med Refill Encounter Details Date Type Department Care Team (Late st Contact Info) Description 06/15/2024 Refill [facility] MEDICINE 230 [place], [place] [phone] Lev Gentile MD 230 [place], [place] [phone] Chronic pruritus Social History Tobacco Use Types [...] 02/01/2025 9:00 AM EDT Clinical Support [facility] MED & PEDS 505 [place] [address] Alana Hook, RACHELLE 505 [place] [address] 02/22/2025 1:45 PM EDT Office Visit [facility] MED & PEDS 505 [place] [address] Ayaka Salgado MD 505 [place] [address] documented as of this encounter Visit Diagnoses Diagnosis Chronic pruritus documented in this encounter Additional Health Concerns Assessment Noted Time PHQ-9 Depression Total Score: 7 08/29/20 22 10:26 AM EST documented as of this encounter Care Teams Dictating Machine Transcriber Relationship Specialty Start Date End Date Ayaka Salgado MD 505 [place] [address] PCP - General Internal Medicine 09/15/18 documented as of this encounter
--- OUTSIDE RECORDS SUMMARY | 2025-01-25 11:45 | XMS_ITS | Encounter Summary ---
Author Organization [employer] Address [address] [facility] 7 [place] [address] Care Team Providers Care Knobber Name Role Phone Ayaka Salgado MD Primary Care Provider [phone] Reason for Visit * Reason Onset Date Comments Med Refill 07/31/2023 Encounter Details Date Type Department Care Team ([facility] st Contact Info) Description 07/31/2023 Telephone [facility] MEDICINE [address] [place] [address] Ayaka Salgado MD 505 [facility] [place] [address] Med Refill Social History Tobacco Use Types [...] Upcoming Encounters Date Type Department Care Team ([facility] st Contact Info) Description 02/01/2025 9:00 AM EDT Clinical Support [facility] MED & PEDS 505 [place] [address] Alana Hook, RACHELLE 505 [place] [address] 02/22/2025 1:45 PM EDT Office Visit [facility] MED & PEDS 505 [place] [address] Ayaka Salgado MD 505 [place] [address] documented as of this encounter Visit Diagnoses Not on filedocumented in this encounter Additional Health Concerns Assessment Noted Time PHQ-9 Depression Total Score: 7 08/29/20 10:26 AM EST documented as of this encounter Care Teams Knobber Relationship Specialty Start Date End Date Ayaka Salgado MD [address] [place] [address] PCP - General Internal Medicine 09/15/18 documented as of this encounter
--- OUTSIDE RECORDS SUMMARY | 2025-01-25 11:45 | XMS_ITS | Encounter Summary ---
Author Organization [employer] Address [address] [place] [address] 7 [place] [address] Care Team Providers Care Strap Machine Operator Automatic Name Role Phone Ayaka Salgado MD Primary Care Provider [phone] Encounter Details Date Type Department Care Team (Late st Contact Info) Description 02/19/2023 Abstract [facility] 230 [place] [address] Ayaka Salgado MD 505 [place], [place] [phone] Social History Tobacco Use Types Packs/Day Years [...] 02/01/2025 9:00 AM EDT Clinical Support [facility]EDS 505 [place] [address] Alana Hook RN 505 [place] [address] 02/22/2025 1:45 PM EDT Office Visit [facility] 505 [place] [address] Ayaka Salgado MD 505 [place] [address] documented as of this encounter Visit Diagnoses Not on filedocumented in this encounter Additional Health Concerns Assessment Noted Time PHQ-9 Depression Total Score: 7 08/29/20 22 10:26 AM EST documented as of this encounter Care Teams Strap Machine Operator Automatic Relationship Specialty Start Date End Date Ayaka Salgado MD 505 [place] [address] PCP - General Internal Medicine 09/15/18 documented as of this encounter
--- OUTSIDE RECORDS SUMMARY | 2025-01-25 11:45 | XMS_ITS | Encounter Summary ---
Author Organization [employer] Address 75 [facility] 7 [place] [address] Care Team Providers Care Ground Instructor Basic Name Role Phone Ayaka Salgado MD Primary Care Provider [phone] Reason for Visit * Reason Comments Med Refill Encounter Details Date Type Department Care Team (Late st Contact Info) Description 01/22/2025 Refill [facility] MEDICINE 230 [place] [address] Ayaka Salgado MD 505 [facility] [place] [phone] Primary insomnia Social History Tobacco Use Types [...] Telephone Encounter - Lissa White LPN - 01/24/2025 1:21 PM EDT ADMITTING COUNSELOR checked on 01/24/25. Last seen 11/22/24. documented in this encounter Plan of Treatment Upcoming Encounters Date Type Department Care Team (Late st Contact Info) Description 02/01/2025 9:00 AM EDT Clinical Support [facility] MED & PEDS 505 [place] [address] Alana Hook RN 505 [place] [address] 02/22/2025 1:45 PM EDT Office Visit [facility] MED & PEDS 505 [place] [address] Ayaka Salgado MD 505 [place] [address] documented as of this encounter Visit Diagnoses Diagnosis Primary insomnia Persistent disorder of initiating or maintaining sleep documented in this encounter Additional Health Concerns Assessment Noted Time PHQ-9 Depression Total Score: 12 025 11:13 AM EDT documented as of this encounter Care Teams Ground Instructor Basic Relationship Specialty Start Date End Date Ayaka Salgado MD [address] [place] [address] PCP - General Internal Medicine 09/15/18 documented as of this encounter
== END 2025-01-25 10:57 | disposition home or self-care (01) ==
PROVIDERS: PCP Internal Medicine; Visit Provider Internal Medicine Hypertension Specialist
DX: D64.9 Anemia, unspecified (principal); I12.9 Hypertensive chronic kidney disease with stage 1 through stage 4 chronic kidney disease, or unspecified chronic kidney disease; N18.4 Chronic kidney disease, stage 4 (severe); I50.32 Chronic diastolic (congestive) heart failure; E66.9 Obesity, unspecified; E21.3 Hyperparathyroidism, unspecified; N40.1 Benign prostatic hyperplasia with lower urinary tract symptoms
CPT/HCPCS: 99214

== ENCOUNTER → 2025-01-25 10:34 | Outpatient (BNVA) | payer MEDICARE, SELFPAY | PROVIDERS: PCP Internal Medicine; Visit Provider Internal Medicine Hypertension Specialist | DX: I13.0 Hypertensive heart and chronic kidney disease with heart failure and stage 1 through stage 4 chronic kidney disease, or unspecified chronic kidney disease (principal); N18.4 Chronic kidney disease, stage 4 (severe); I50.32 Chronic diastolic (congestive) heart failure; D64.9 Anemia, unspecified; E66.9 Obesity, unspecified; E21.3 Hyperparathyroidism, unspecified; Z68.36 Body mass index [BMI] 36.0-36.9, adult | CPT/HCPCS: 96372; 99212; Q5106 ==

== ENCOUNTER 2025-01-26 10:03 | Outpatient (AMB) | payer MEDICARE, SELFPAY ==
[2025-01-26 10:19] VITALS: BP 108/54; PULSE 65; O2SAT 97; BMI 36.3
--- NOTE | 2025-01-26 10:19 | MHC.OFFVIS ---
Vital Signs 01/26/25 10:19 Height 5 ft 7 in Weight 231 lb 7.766 oz BMI 36.3 BP 108/54 L Blood Pressure Location Lt brachial Position Sitting Pulse 65 Pulse Source Pulse Oximeter Pulse Oximetry (%) 97 Oxygen Delivery Method Room Air Intake Visit Reasons: copd Intake Note: pt is here for shortness of breath with walking, was put on spirvia for about 3 months which helped but he still has to stop and catch his breath. 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 only wheeze once in a while Forest Technician Required: No Allergies aspirin Adverse Reaction (Unknown, Verified 01/26/25 10:26) nose bleeds metformin Adverse Reaction (Unknown, Verified 01/26/25 10:) hypoglycemia warfarin [From Coumadin] Adverse Reaction (Unknown, Verified 01/26/25 10:) Nose Bleed apixaban Adverse Reaction (Verified 01/26/25 10:) Nose Bleed clopidogrel Adverse Reaction (Verified 01/26/25 10:) Nose Bleed Medication List - Last Reconciled 01/26/25 by Seble Montejo MD acetaminophen (Tylenol) 650 mg PO Q6H PRN albuterol sulfate 90 mcg/actuation (Ventolin HFA) inhalation albuterol sulfate mg inhalation blood-glucose meter (FreeStyle Lite Meter kit) As directed bumetanide 1 mg PO BID calcitriol 0.25 mcg PO DAILY cholecalciferol (vitamin D3) 25 mcg PO Q48H cinacalcet 30 mg PO DAILY clonidine HCl 0.2 mg PO TID gabapentin 300 mg PO TID glimepiride 1 mg PO DAILY hydralazine 100 mg PO TID labetalol 400 mg PO BID lancets (FreeStyle Lancets) As directed lidocaine 5% 1 patch topical DAILY PRN losartan 50 mg PO DAILY melatonin 5 mg PO BEDTIME oxycodone-acetaminophen 5-325 mg 1 tab PO Q8H PRN simvastatin 20 mg PO BEDTIME sitagliptin phosphate (Januvia) 25 mg PO DAILY umeclidinium 62.5 mcg/actuation (Incruse Ellipta) 1 inh inhalation DAILY zolpidem 10 mg PO BEDTIME Do you need a note to return to daycare/school/sports/work: No HPI HPI copd: Details: This 69 years old gentleman is coming for follow-up, after about 2 years. He is a known case of obstructive sleep apnea which has, almost resolved by his the ongoing position therapy( he tries to sleep in lateral position) and some weight loss. His main complaint today is increased shortness of breath on walking short distance. Denies dyspnea or wheezing at rest. He denies orthopnea. We notice that CBC last month , showed significant anemia with hemoglobin 7.9 g. Serum iron and I BC levels were normal. Patient tells me that he is getting monthly injection from the renal service ( most likely Procrit ) He does have chronic renal failure , for which he is being followed by the renal Service And his anemia is probably due to chronic renal disease. He is also known to have chronic obstructive pulmonary disorder as per pulmonary function test back in 2022 ( showed moderately severe obstructive airway disorder without much improvement with BDs) This gentleman also has chronic congestive heart failure probably related to fluid overload. He does get swelling around the ankles and lower part of the legs during the daytime. He denies any chest pain or arrhythmias. [facility] Medical History Obesity (BMI 30-39.9) Elevated brain natriuretic peptide (BNP) level Lower extremity edema COPD (chronic obstructive pulmonary disease) LEONEL (obstructive sleep apnea) Dyspnea on minimal exertion COPD (chronic obstructive pulmonary disease) Smoker Left ventricular hypertrophy Smoking CKD (chronic kidney disease) Obesity Dyslipidemia Hypertension Diabetes mellitus Surgical History No pertinent past surgical history Family History Father No problems noted. Mother Diabetes Family/Other No problems noted. Social History Household Members: Significant Other Housing: Apartment Do you presently have visiting nurse or other home services: No Alcohol intake: current Alcohol intake frequency: a few times a month Patient Tobacco Use Status: Former Tobacco user e-Cigarette/Vaping Use: Never Used Second Hand Smoke Exposure: No Advance Directives Date on File: 08/23/22 service: No Current occupational status: disabled Review of Systems Const All systems reviewed & are unremarkable except as noted in HPI and below Eyes Reports no additional complaints ENT Reports no additional complaints Card Denies chest pain, Denies irregular heart rhythm, Denies leg edema and Reports dyspnea on exertion Resp Reports as per HPI and Reports dyspnea on exertion GI Reports no additional complaints Reports no additional complaints Musc Reports no additional complaints Skin/Breast Reports system reviewed and no additional complaints, except as documented Neuro Reports no additional complaints Psych Reports no additional complaints Physical Exam Vital Signs: Last Vital Signs Pulse 65 01/26/25 10:19 BP 108/54 L 01/26/25 10:19 Pulse Ox 97 01/26/25 10:19 Oxygen Delivery Method Room Air 01/26/25 10:19 BMI result Body Mass Index 36.3 He is grossly obese especially with protuberant abdomen, Large and round face. Sitting comfortably., but was noted to be short of breath on minimal walking Const General: comfortable, no acute distress, alert and awake Orientation/consciousness: patient oriented x3 HEENT Head: Yes normal to inspection General nose exam: No nasal polyps present and No nasal discharge present Face and sinus: Yes sinuses nontender Mouth: oropharynx normal Throat: Yes posterior oropharynx normal Eyes General: appearance normal, both eyes and all related structures Neck Neck: Yes normal visual inspection, Yes no lymphadenopathy, Yes trachea midline and Yes no JVD Thyroid: Thyroid normal Chest Chest palpation & inspection: normal inspection of the chest, normal palpation of entire chest wall and no tenderness Resp Other: Percussion note is resonant. Breath sounds are decreased over both basilar areas, Respiratory excursions are diminished. No crepitations or wheezes are heard. Cardio Palpation: normal PMI Rate: regular rate Rhythm: regular rhythm Heart sounds: no gallops and no murmurs GI Palpation (GI): Soft to palpation, nontender, No hepatosplenomegaly present, no masses and Other GI palpation findings present (Abdomen is obese and protuberant) Auscultation: normal bowel sounds Back/Spine/Pelvis Thoracic/Lumbar Spine: thoracic and lumbar spine normal to inspection and thoraco-lumbar ROM limited Skin General skin exam: no rashes or lesions noted Neuro General: patient oriented x3 and no focal motor deficits Cranial nerves: Yes CN's II-XII intact bilaterally Extrem General: Yes normal to inspection, Yes no clubbing, cyanosis or edema and Yes no calf tenderness Psych Appearance: grossly normal and well kempt Speech and movement: Normal speech and movement present Office Procedures Nebulizer Treatment Nebulizer Treatment 30466-Lccjuemki/MDI RX initial, or Nebulizer Subsequent Treatment Spirometry Testing Spirometry Comments: Pre and Post Spirometry done in the office, Dr. Montejo has the results. Levalbuterol used for post spirometry. results scanned to his chart. 11407- Spirometry Office Meds levalbuterol HCl 1.25 mg/3 mL solution for nebulization Performing Provider: Seble Montejo MD Performing Location: [facility] Administered by: Nora Barksdale LPN on 01/26/25 10:49 Dose Route Admin Location Dispensed Lot Number Expiration Date [place] Medical Laboratory Assistant 1.25 mg inhalation 3 mL [id number] 11/12/25 26343-625-26 [employer] Comments: used for pre and post spirometry Results Reviewed Results Reviewed: Spirometry before and after bronchodilator therapy . Performed in the office today FVC 58%, FEV1 51%, FEV1/FVC ratio 68, FEF 25 75 =40% there was no response to bronchodilator therapy Assessment & Plan Assessment & Plan (1) Anemia: Comment: His last hemoglobin was 7.6 g. Most likely cause of his anemia is chronic renal disease. Clinically seems to have improved with the injections of Procrit. Code(s): D64.9 - Anemia, unspecified Category: Medical Plan: Check CBC to know the current level of hemoglobin. (2) COPD (chronic obstructive pulmonary disease): Comment: Patient does have moderately severe obstructive airway disorder, no evidence of positive response to bronchodilator therapy. The flow volumes are almost the same as in 2022. Code(s): J44.9 - Chronic obstructive pulmonary disease, unspecified Category: Medical Plan: Explained to the patient that his current therapy which includes Incruse Ellipta 1 inhalation daily and use of levalbuterol 2 puffs Q 6 hours p.r.n. for acute shortness of breath, is okay. There is no need to add any other inhaler. (3) LEONEL (obstructive sleep apnea): Comment: IS A KNOWN CASE OF OBSTRUCTIVE SLEEP APNEA, MILD. WAS NOT BEEN ABLE TO USE CPAP. BUT HE DOES SLEEP IN LATERAL POSITION AND SLEEPS WELL. DENIES ANY EXCESSIVE SAYS DAYTIME SLEEPINESS. Code(s): G47.33 - Obstructive sleep apnea (adult) (pediatric) Category: Medical Plan: ADVISED TO CONTINUE SLEEPING IN THE LATERAL POSITION. (4) Smoker: Comment: HE DOES HAVE PAST HISTORY OF SMOKING. HAS QUIT COMPLETELY IN THE LAST 2 YEARS. Code(s): F17.200 - Nicotine dependence, unspecified, uncomplicated Category: Social Hx Plan: COMMENDED FOR HAVING QUIT SMOKING. (5) Dyspnea on minimal exertion: Comment: DYSPNEA ON EXERTION DUE TO COMBINATION OF MULTIPLE FACTORS INCLUDING, GROSS OBESITY COPD, PERIPHERAL VASCULAR DISEASE. CARDIAC DISEASE. RENAL DISEASE. ANEMIA, LAST HEMOGLOBIN 7.6 G Code(s): R06.09 - Other forms of dyspnea Category: Medical Plan: ADVISED THE PATIENT ABOUT ALL THESE CONDITIONS. ORDERED CBC TO KNOW THE CURRENT LEVEL OF HEMOGLOBIN. ADVISE THAT HE SHOULD CONTINUE WITH PROCRIT INJECTIONS AND HIS HEMOGLOBIN IMPROVES HIS DYSPNEA ON EXERTION WOULD BE MUCH LESS. Orders: Orders AMB Nebulizer Treatment Today J44.9 - Chronic obstructive pulmonary disease, unspecified Complete Blood Count Auto Diff Today D64.9 - Anemia, unspecified AMB Spirometry Testing Today J44.9 - Chronic obstructive pulmonary disease, unspecified Coding Level of Care Code Est Pt Level 4 (59012) Diagnoses Anemia D64.9 COPD (chronic obstructive pulmonary disease) J44.9 LEONEL (obstructive sleep apnea) G47.33 Smoker F17.200 Dyspnea on minimal exertion R06.09 CPT Codes Nebulizer Treatment - Nebulizer Treatment, initial or subsequent: [id number]-Ybdnlllwy/MDI RX initial, or Nebulizer Subsequent Treatment ([id number]) Spirometry - CPT: 91785- Spirometry ([id number])
--- OUTSIDE RECORDS SUMMARY | 2025-01-26 10:58 | XMS_ITS | Clinical Summary ---
Author Organization [facility] Address [address] [place] [address] Phone Care Team Providers Care Screen Printing Paster Name Role Phone Jayme Salgado MD Primary Care Provider [phone] Allergies Active Allergy Reactions Criticality Noted Date [...] patient's age to complete this topic Insurance [facility] Medicare [facility] Medicare Care Teams Screen Printing Paster Relationship Specialty Start Date End Date Jayme Salgado MD [address] [place], [place] [address]Dee [place] PCP - General 09/25/20
--- OUTSIDE RECORDS SUMMARY | 2025-01-26 10:58 | XMS_ITS | Encounter Summary ---
Author Organization [employer] Address [address] [facility] 7t [place] [address] Care Team Providers Care Program Director/Traffic Director Name Role Phone Ayaka Salgado MD Primary Care Provider [phone] Encounter Details Date Type Department Care Team ([facility] st Contact Info) Description 08/20/2024 Orders Only [facility] CHC MED & PEDS [address] [place] [address] Ayaka Salgado MD [address] [place] [address] Social History Tobacco Use Types Packs/Day Years [...] [facility] MED & PEDS [address] [place] [address] Alana Hook, RACHELLE [address] [place] [address] 02/22/2025 1:45 PM EDT Office Visit [facility] MED & PEDS [address] [place] [address] Ayaka Salgado MD [address] [place] [address] documented as of this encounter Visit Diagnoses Not on filedocumented in this encounter Additional Health Concerns Assessment Noted Time PHQ-9 Depression Total Score: 7 08/29/20 22 10:26 AM EST documented as of this encounter Care Teams Program Director/Traffic Director Relationship Specialty Start Date End Date Ayaka Salgado MD [address] [place] [address] PCP - General Internal Medicine 09/15/18 documented as of this encounter
--- OUTSIDE RECORDS SUMMARY | 2025-01-26 10:58 | XMS_ITS | Encounter Summary ---
Author Organization [facility] [address] [facility] [address] [place] [address] Phone Care Team Providers Care State Tested Nursing Assistant Name Role Phone Jayme Salgado MD Primary Care Provider [phone] Reason for Visit * Reason Comments Med Refill Encounter Details Date Type Department Care Team (Late st Contact Info) Description 04/28/2023 Refill [facility] [address] [facility] [place] [id number] Mumtaz Childress MD [address] [facility] [address] [place] [address] Type 2 diabetes mellitus with [...] (HCC) documented in this encounter Care Teams State Tested Nursing Assistant Relationship Specialty Start Date End Date Jayme Salgado MD [address] [place] [address] PCP - General 09/25/20 documented as of this encounter
--- OUTSIDE RECORDS SUMMARY | 2025-01-26 10:58 | XMS_ITS ---
Author Organization [facility] Address [address] [place] [address] Care Team Providers Care Mud Analysis Well Logging Captain Name Role Phone Ayaka Salgado Primary Care Provider [phone] Transplant Episode Kidney Candidate [facility] ([place], [place]) - [facility] Evaluation began on 07/29/2024 Marked as Active on 07/29/2024 Kidney CoordinatorShima Springer RN Email: N/A Scores Score Value Updated Exceptions/Reas ons CPRA Not available EPTS (Calc) 44 01/26/2025 [place] Organ Diagnosis Organ Primary Contributory Kidney Diabetes Mellitus - Type II Care Team Name Role Phone Fax Email Shima Springer RN Kidney Coordinator [phone] N/A Ross Baldwin Referring Physician [phone] N/A Events Pre-Transplant Referred: 07/19/2024 Evaluation began: 07/29/2024
--- OUTSIDE RECORDS SUMMARY | 2025-01-26 10:58 | XMS_ITS | Encounter Summary ---
Author Organization [employer] Address [address] [place] [address] 7 [place] [address] Care Team Providers Care Road Commissioner Name Role Phone Ayaka Salgado MD Primary Care Provider [phone] Reason for Visit * Reason Comments Med Refill Encounter Details Date Type Department Care Team ([facility] st Contact Info) Description 02/24/2023 Refill [facility] CHC MED & PEDS [address] [place] [address] Ayaka Salgado MD [address] [place] [address] Social History Tobacco Use Types Packs/Day Years [...] ([facility] st Contact Info) Description 02/01/2025 9:00 AM EDT Clinical Support [facility] MED & PEDS [address] [place] [address] Alana Hook, RACHELLE [address] [place] [address] 02/22/2025 1:45 PM EDT Office Visit [facility] MED & PEDS [address] [place] [address] Ayaka Salgado MD [address] [place] [address] documented as of this encounter Visit Diagnoses Not on filedocumented in this encounter Additional Health Concerns Assessment Noted Time PHQ-9 Depression Total Score: 7 08/29/20 22 10:26 AM EST documented as of this encounter Care Teams Road Commissioner Relationship Specialty Start Date End Date Ayaka Salgado MD [address] [place] [address] PCP - General Internal Medicine 09/15/18 documented as of this encounter
--- OUTSIDE RECORDS SUMMARY | 2025-01-26 10:58 | XMS_ITS | Encounter Summary ---
Author Organization [employer] Address [address] [place] [address] Care Team Providers Care Health Lead Name Role Phone Ayaka Salgado MD Primary Care Provider [phone] Encounter Details Date Type Department Care Team ([facility] st Contact Info) Description 06/25/2024 Orders Only [facility] CHC MED & PEDS [address] [place] [address] ProviderRan MD Social History Tobacco Use Types [...] [facility] MED & PEDS [address] [place] [address] Alana Hook RN [address] [place] [address] 02/22/2025 1:45 PM EDT Office Visit [facility] MED & PEDS [address] [place] [address] Ayaka Salgado MD [address] [place] [address] documented as of this encounter Procedures Procedure [...] as of this encounter Care Teams Health Lead Relationship Specialty Start Date End Date Ayaka Salgado MD [address] [place] [address] PCP - General Internal Medicine 09/15/18 documented as of this encounter
--- OUTSIDE RECORDS SUMMARY | 2025-01-26 10:58 | XMS_ITS | Encounter Summary ---
Author Organization [employer] Address [address] [facility] 7 [place] [address] Care Team Providers Care Plate Inspector Name Role Phone Ayaka Salgado MD Primary Care Provider [phone] Reason for Visit * Reason Onset Date Comments Med Refill 09/29/2024 Encounter Details Date Type Department Care Team (Late st Contact Info) Description 09/29/2024 Refill [facility] MEDICINE [address] [place] [address] Ayaka Salgado MD [address] [facility] [place] [id number] Arthropathy (Primary Dx) Social History Tobacco Use [...] 5-325 MG tablet To be sent to: [id number] [place] - [facility] documented in this encounter Plan of Treatment Upcoming Encounters Date Type Department Care Team ([facility] st Contact Info) Description 02/01/2025 9:00 AM EDT Clinical Support [facility]ED[facility] [address] [place] [address] Alana Hook RN [address] [place] [address] 02/22/2025 1:45 PM EDT Office Visit [facility] MED [facility] PED[facility] [address] [place] [address] Ayaka Salgado MD [address] [place] [address] documented as of this encounter Visit Diagnoses Diagnosis Arthropathy- Primary Unspecified arthropathy, site unspecified documented in this encounter Additional Health Concerns Assessment Noted Time PHQ-9 Depression Total Score: 7 08/29/20 22 10:26 AM EST documented as of this encounter Care Teams Plate Inspector Relationship Specialty Start Date End Date Ayaka Salgado MD [address] [place] [address] PCP - General Internal Medicine 09/15/18 documented as of this encounter
--- OUTSIDE RECORDS SUMMARY | 2025-01-26 10:58 | XMS_ITS | Encounter Summary ---
Author Organization [facility] Address [address] [place] [address] Care Team Providers Care Prenatal Teacher Name Role Phone Ayaka Salgado Primary Care Provider Encounter Details Date Type Department Care Team (Late st Contact Info) Description 07/29/2024 Orders Only [facility] XRay [address] [place] [address] Waqas Garnett MD [address] [place] [address] Social History Tobacco Use Types Packs/Day Years [...] Info) Description 08/02/2025 8:20 AM EST Follow-Up [facility] Renal Transplant [address] [place] [address] Joey Duarte MD [address] [place] [address] 08/02/2025 9:00 AM EST Social Work [facility] Renal Transplant [address] [place] [address] Susan Babb LICSW [address] [place] [address] documented as of this encounter Visit Diagnoses Not on filedocumented in this encounter Care Teams Prenatal Teacher Relationship Specialty Start Date End Date Ayaka Salgado [address] [place] [address] PCP - General Internal Medicine 07/29/24 documented as of this encounter
--- OUTSIDE RECORDS SUMMARY | 2025-01-26 10:58 | XMS_ITS | Clinical Summary ---
Author Organization [employer] Address [address] [place] [address] 7t [place] [address] Care Team Providers Care Yarn Packer Name Role Phone Ayaka Salgado MD Primary Care Provider [phone] Allergies Active Allergy Reactions Criticality Noted Date [...] split. 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 11/13 Pruritus [...] Type Department Care Team Description 01/25/2025 Telephone [facility] MEDICINE [address] [place] [address] Ayaka Salgado MD Med Refill 01/22/2025 Refill [facility] MEDICINE [address] [place] [address] Ayaka Salgado MD Primary insomnia 01/19/2025 Refill [facility] CHC MED & PEDS [address] [place] [address] Alana Hook, RACHELLE Arthropathy 01/19/2025 Telephone [facility] MEDICINE [address] [place] [address] Ayaka Salgado MD Med Refill 01/19/2025 Telephone [facility] MEDICINE [address] [place] [address] Ayaka Salgado MD Med Refill 12/31/2024 Refill [facility] MEDICINE [address] [place] [address] Ayaka Salgado MD Arthropathy 12/28/2024 Refill [facility] MEDICINE [address] [place] [address] Ayaka Salgado MD 12/24/2024 Refill [facility] MEDICINE [address] [place] [address] Ayaka Salgado MD Primary insomnia 12/15/2024 Refill [facility] MED & PEDS [address] [place] [address] Ayaka Salgado MD Arthropathy 12/07/2024 Orders Only GENERIC EXTERNAL DATA DEPARTMENT Provider, Generic External Data 11/27/2024 Refill [facility] MED & PEDS [address] [place] [address] Ayaka Salgado MD 11/24/2024 9:00 AM EDT Clinical Support [facility] MED & PEDS [address] [place] [address] Alana Hook RN Back pain, unspecified back location, unspecified back pain laterality, unspecified chronicity (Primary Dx); 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 11/24/2024 Refill [facility] MED & PEDS [address] [place] [address] Alana Hook RN Primary osteoarthritis of both knees (Primary Dx); Primary insomnia 11/24/2024 Travel 11/23/2024 Orders Only [facility] External Provider, [facility] 11/22/2024 11:00 AM EDT Office Visit [facility] MED & PEDS [address] [place] [address] Ayaka Salgado MD Chronic obstructive pulmonary disease, unspecified COPD type (CMS/HCC) (Primary Dx); BOWMAN (dyspnea on exertion); 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); Primary insomnia 11/22/2024 Travel 11/03/2024 Refill [facility] MEDICINE [address] [place] [address] Ayaka Salgado MD Arthropathy from Last 3 Months Immunizations Immunization Administration Dates Next Due Moderna Covid-19 Vaccine [...] [facility] MED & PEDS [address] [place] [address] Alana Hook RN 505 [place] [address] 02/22/2025 1:45 PM EDT Office Visit [facility] MED & PEDS [address] [place] [address] Ayaka Salgado MD 505 [place] [address] Health Maintenance Due Date Last Done Comments [...] patient's age to complete this topic Meningococcal B Vaccine Aged Out No l onger eligible based on patient's age to complete [...] DRUG SCREEN Routine 11/24/2024 9:21 AM EDT 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 Back pain, [...] (12/07/2024 10:29 AM EDT) Blood Type OP [facility] 12/07/2024 10:2 9 AM EDT 12/07/2024 2:21 PM EDT us Generic External Data Provider LAB BLOOD BANK TE ST ORDERABLES Final Result Performing Organization Address City/State/[facility] Co de Phone Number [facility] [address] [place] [phone] * POCT VESNA-14 Urine Drug Screen (11/24/2024 9:21 AM EDT) Oxycodone Screen, Urine Positive Urine Urine specimen obtained by clean catch procedure / Unknown 11/24/2024 9:21 AM EDT Narrative Alana Hook RN - 11/24/2024 9:21 AM EDT Lot# [id number] Exp: 05-04-26 us Ayaka Salgado MD POINT OF CARE TEST ENTER/ED IT ORDERABLES Final Result * CT Abdomen Pelvis w/o Contrast (11/23/2024 7:16 AM EDT) Anatomical Region Laterality Modality Body, Pelvis, Abdomen Computed T omography 11/23/2024 7:16 AM EDT Narrative 11/23/2024 1:44 PM EDT ? [facility] ?[address] ?[place] [address] ? CT Scan Report ? Signed ? Patient: Snyder Saldivar,Lewis ?MR#: [id number] ?? [id number] ? : 1955 ?Acct:[id number] ? Age/Sex: 68 / M ?ADM Date: 11/23/24 ? Loc: HO.CT ? Attending Dr: Joey Duarte MD ? Ordering Physician: Joey Duarte MD ?? Date of Service: 11/23/24 ?? Procedure(s): CT abdomen pelvis wo IV con ?? Accession Number(s): [id number] ? cc: Ayaka Salgado MD; Joey Duarte MD ? Report Number: ?? [id number]: Total DLP = ??562.00 mGy-cm ?? EXAMINATION: [...] DD/ 0716 ? TD/TT: 11/23/24 0749 ? Outsole Molder: ? Procedure Note Fredy Gordon - 11/23/[address] [place] [address] [address] Scan Report Signed Patient: Lewis GarrisonMR#: [id number] : 8Acct:[id number] Age/Sex: 68 / MADM Date: 11/23/24 Loc: HO.CT Attending Dr: Joey Duarte MD Ordering Physician: Joey Duarte MD Date of Service: 11/23/24 Procedure(s): CT abdomen pelvis wo IV con Accession Number(s): [id number] cc: Ayaka Salgado MD; Joey Duarte MD Report Number: [id number]: Total DLP = 562.00 mGy-cm EXAMINATION: CT [...] 11/23/24 1333 DD/ 0716 TD/TT: 11/23/24 0749 Outsole Molder: [facility] External Provider IMG [...] Lot # [id number] Comment:RANDOM Lot# Expiration Date [id number] Blood Capillary blood specimen / Unknown 11/22/2024 11:52 AM EDT Ayaka Salgado MD POINT OF CARE TEST ENTER/ED IT ORDERABLES Final Result * Hm Diabetes Eye Exam (05/04/2024 12:18 PM EDT) Historical Provider HEALTH MAINTENANCE Final Result * (ABNORMAL) Lipid Panel, Standard (11/12/2023 9:08 AM EST) Triglycerides 55 <150 mg/dL [facility] Comment:Desirable Triglyceri de: less than 150 mg/dLBorderline High Triglyceride 150-199 mg/dLHigh Triglyceride: 200-499 mg/dLVery High Triglyceride: greater than or equal to 5OO mg/dL Cholesterol 101 <200 mg/dL [facility] Comment:Desirable Cholestero l: less than 200 mg/dLBorderline High Cholesterol: 200-239 mg/dLHigh Cholesterol: greater than 239 mg/dL LDL Cholesterol Calculated 57 <100 mg/dL [facility] Comment:Desirable LDL: less than 100 mg/dLNear Optimal/Above Optimal LDL: 110- 129 mg/dLBorderline High LDL: 130-159 mg/dLHigh LDL: 160-189 mg/dLVery High LDL: greater than or equal to 190 mg/dL HDL Cholesterol 33(L) >40 mg/dL [facility] Comment:Desirable HDL: great er than 40 mg/dL Note: This HDL assay may give artificially low results in patients with liver disease. Blood Venous blood specimen / Unknown 11/12/2023 9:08 AM EST 11/12/2023 2:41 PM EST us Ayaka Salgado MD LAB BLOOD ORDERABLES Final Result [facility] [address] [place] [address] [phone] from Last 3 Months or Most Recently Relevant to Health Maintenance Insurance [facility] MEDICARE ADVANTAGE HMO Care Teams Yarn Packer Relationship Specialty Start Date End Date Ayaka Salgado MD 505 [facility] [place] [address] PCP - General Internal Medicine 09/15/18
--- OUTSIDE RECORDS SUMMARY | 2025-01-26 10:58 | XMS_ITS | Encounter Summary ---
Author Organization [employer] Address [address] [facility] 7 [place] [address] Care Team Providers Care Collections Analyst Name Role Phone Ayaka Salgado MD Primary Care Provider [phone] Reason for Visit * Reason Onset Date Comments Med Refill 09/06/2024 Encounter Details Date Type Department Care Team ([facility] st Contact Info) Description 09/06/2024 Telephone [facility] MEDICINE [address] [place], [place] [phone] Ayaka Salgado MD 505 [facility] [place] [address] Med Refill Social History Tobacco Use Types [...] 8:56 AM EST Medication was sent to [facility] #[id number] on 08/09/24 with 3 refills. * Telephone Encounter - Cleopatra Ortiz - 09/06/2024 8:53 AM EST TC from pt requesting medication refill. Medications needing refill : labetalol (Normodyne) 200 MG tablet To be sent to: [id number] - [place] - [address] [facility] [address] documented in this encounter Plan of Treatment Upcoming Encounters Date Type Department Care Team ([facility] st Contact Info) Description 02/01/2025 9:00 AM EDT Clinical Support [facility] MED & PEDS 505 [facility] [place] [address] Alana Hook, RN 505 [facility] [place] [address] 02/22/2025 1:45 PM EDT Office Visit [facility] CHC MED & PEDS [address] [place] [address] Ayaka Salgado MD 505 [place] [address] documented as of this encounter Visit Diagnoses Not on filedocumented in this encounter Additional Health Concerns Assessment Noted Time PHQ-9 Depression Total Score: 7 08/29/20 22 10:26 AM EST documented as of this encounter Care Teams Collections Analyst Relationship Specialty Start Date End Date Ayaka Salgado MD [address] [place] [address] PCP - General Internal Medicine 09/15/18 documented as of this encounter
--- OUTSIDE RECORDS SUMMARY | 2025-01-26 10:58 | XMS_ITS | Referral Summary ---
Author Organization [facility] Address [address] [place] [address] Care Team Providers Care Nutrition Services Manager Name Role Phone Ayaka Salgado Primary Care Provider [phone] Encounters Date Type Department Care Team Description 11/24/2024 Orders Only [facility] Transplant Department [address] [place], [place] [phone] Shima Springer RN Pre-transplant evaluation for end stage renal disease (Primary Dx); Chronic kidney disease, stage V 11/23/2024 Telephone [facility] Transplant Department [address] [place], [place] [phone] Shima Springer, analytical scientist - Kidney Txp from Last 3 Months [...] Info) Description 08/02/2025 8:20 AM EST Follow-Up [facility] Renal Transplant [address] [place] [address] Joey Duarte MD 55 [place] [address] 08/02/2025 9:00 AM EST Social Work [facility] Renal Transplant [address] [place] [address] Susan Babb LICSW [address] [place] [address] Procedures * Due to [place] state law, this organization might not be [...] to Health Maintenance Results * Due to [place] state law, this organization might not be [...] 0.0 /100 WBCs 07/29/2024 1:35 PM EST [facility] nRBC # <0.01 <0.01 10*3/uL 07/29/2024 1:35 PM EST [facility] Blood Structure of peripheral vein / Unknown Venipuncture / Unknown 07/29/2024 12:57 PM EST 07/29/2024 1:29 PM EST Joey Duarte MD LAB BLOOD ORDERABLES María l Result [facility] [address] [place] [address], * Hepatitis C Antibody w/Reflex to PCR (07/29/2024 12:57 PM EST) Hepatitis C Antibody NON-REACT STANFORD NON-REACT STANFORD 07/30/2024 3:03 AM EST [employer] [facility] Comment: HCV antibody was non-reactive. There is no laboratory evidence of HCV infection. In most cases, no further action is required. However, if recent HCV exposure is suspected, a test for HCV RNA (test code 58481) is suggested. For additional information please refer to http://education.AllFreed/faq/XWS54b5 (This link is being provided for informational/ educational purposes only.) Blood Structure of peripheral vein / Unknown Venipuncture / Unknown 07/29/2024 12:57 PM EST 07/29/2024 1:32 PM EST Narrative [facility] 07/30/2024 3:03 AM EST [facility] Received Date: Joey Duarte MD LAB BLOOD ORDERABLES María l Result [facility] [place] [address] [facility] 3rd Floor, [place] [address], [place] [phone] [employer] [facility] [address] [facility] 3rd Floor, [place] [address], [place] [phone] * Phosphorus (07/29/2024 12:57 PM EST) Phosphorus 4.5 2.5 - 4.5 mg/dL 07/29/2024 2:00 PM EST [facility] Blood Structure of peripheral vein / Unknown Venipuncture / Unknown 07/29/2024 12:57 PM EST 07/29/2024 1:29 PM EST Joye Duarte MD LAB BLOOD ORDERABLES María l Result [facility] [address] [place] [address], * (ABNORMAL) Hemoglobin A1c (07/29/2024 12:57 PM EST) Hemoglobin A1C 6.7(H) <5.7 % of total Hgb 07/30/2024 1:59 AM [facility] Comment: For someone without known diabetes, a [...] (MG/DL) 146 mg/dL 07/30/2024 1:59 AM EST [facility] eAG (MMOL/L) 8.1 mmol/L 07/30/2024 1:59 AM [facility] Blood Structure of peripheral vein / Unknown Venipuncture / Unknown 07/29/2024 12:57 PM EST 07/29/2024 1:32 PM EST Narrative [facility] - 07/30/2024 1:59 AM EST [facility] Received Date: Joey Duarte MD LAB BLOOD ORDERABLES María l Result [facility] [place] [address] 3[address] Floor, [place] [address], [place] [phone] [employer] [facility] [address] 3rd Floor, [address] [place] [address], [place] [phone] from Last 3 Months or Most Recently Relevant to Health Maintenance Insurance [facility] Advance Directives Documents on File Type Date Recorded Patient Primary Education Professor Expl anation Health Care Proxy 08/05/2024 4:14 PM 11- Care Teams Nutrition Services Manager Relationship Specialty Start Date End Date Ayaka Salgado [address] [place] [address] PCP - General Internal Medicine 07/29/24
--- OUTSIDE RECORDS SUMMARY | 2025-01-26 10:58 | XMS_ITS | Clinical Summary ---
Author Organization [facility] Address [address] [place] [address] Care Team Providers Care Director Of Counterintelligence Name Role Phone DamianReidteriren Morel Primary Care [...] Department Care Team Description 11/24/2024 Orders Only [facility] Transplant Department [address] [place] [address] Shima Springer RN Pre-transplant evaluation for end stage renal disease (Primary Dx); Chronic kidney disease, stage V 11/23/2024 Telephone [facility] Transplant Department [address] [place] [phone] Shima Springer superintendent drilling and production - Kidney Txp from Last 3 Months [...] Info) Description 08/02/2025 8:20 AM EST Follow-Up [facility] Renal Transplant [address] [place] [address] Joey Duarte MD [address] [place] [address] 08/02/2025 9:00 AM EST Social Work [facility] Renal Transplant [address] [place] [address] Susan Babb LICSW [address] [place] [address] Health Maintenance Due Date Last Done Comments [...] complete this topic Procedures * Due to [place] state law, this organization might not [...] to Health Maintenance Results * Due to [place] state law, this organization might not [...] MD LAB BLOOD ORDERABLES María l Result [facility] [address] [place] [address], * Hepatitis C Antibody w/Reflex to PCR (07/29/2024 12:57 PM EST) Hepatitis C Antibody NON-REACT STANFORD NON-REACT STANFORD 07/30/2024 3:03 AM EST [email or web address] Comment: HCV antibody was non-reactive. There is no laboratory evidence of HCV infection. In most cases, no further action is required. However, if recent HCV exposure is suspected, a test for HCV RNA (test code 86785) is suggested. For additional information please refer to http://education.Articulate Technologies/faq/DNA05p8 (This link is being provided for informational/ educational purposes only.) Blood Structure of peripheral vein / Unknown Venipuncture / Unknown 07/29/2024 12:57 PM EST 07/29/2024 1:32 PM EST Narrative [facility] - 07/30/2024 3:03 AM EST [facility] Received Date: Joey Duarte MD LAB BLOOD ORDERABLES María l Result Performing Organization Address City/[facility]/ZIP Co de Phone Number [facility] [address] [facility] 3rd Floor, [place] [address], [place] [phone] [employer] [facility] [address] [facility] 3rd Floor, [place] [address], [place] [phone] * Phosphorus (07/29/2024 12:57 PM EST) Phosphorus 4.5 2.5 - 4.5 mg/dL 07/29/2024 2:00 PM EST [facility] Blood Structure of peripheral vein / Unknown Venipuncture / Unknown 07/29/2024 12:57 PM EST 07/29/2024 1:29 PM EST Joey Duarte MD LAB BLOOD ORDERABLES María l Result [facility] [address] [place] [address], [place] * (ABNORMAL) Hemoglobin A1c (07/29/2024 12:57 PM EST) Hemoglobin A1C 6.7(H) <5.7 % of total Hgb 07/30/2024 1:59 AM EST [facility] Comment: For someone without known diabetes, a [...] (MG/DL) 146 mg/dL 07/30/2024 1:59 AM EST [facility] eAG (MMOL/L) 8.1 mmol/L 07/30/2024 1:59 AM EST [facility] Blood Structure of peripheral vein / Unknown Venipuncture / Unknown 07/29/2024 12:57 PM EST 07/29/2024 1:32 PM EST [facility]ative [facility] - 07/30/2024 1:59 AM EST [facility] Received Date: Joey Duarte MD LAB BLOOD ORDERABLES María l Result [facility] [place] [address] [facility] 3rd Floor, [place] [address], [place] [phone] [facility] [address] [facility] 3rd Floor, [place] [address], [place] [phone] from Last 3 Months or Most Recently Relevant to Health Maintenance Insurance [facility] [place] [id number] [facility] RE[facility] AARP [facility] RE[facility] AARP Advance Directives Documents on File Type Date Recorded Patient 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
--- OUTSIDE RECORDS SUMMARY | 2025-01-26 10:59 | XMS_ITS | Encounter Summary ---
Author Organization [employer] Address [address] [place] [address] [address] [address] Care Team Providers Care Mapping Editor Name Role Phone Ayaka Salgado MD Primary Care Provider [phone] Reason for Visit * Reason Onset Date Comments Med Refill 12/12/2022 Encounter Details Date Type Department Care Team ([facility] st Contact Info) Description 12/12/2022 Telephone [facility] MED & PEDS [address] [place] [address] Ayaka Salgado MD 505 [place] [address] Med Refill Social History Tobacco Use Types [...] (Norvasc) 5 MG tablet Please sent to [id number] - [place], [place] - [address] [facility] documented in this encounter Plan of Treatment Upcoming Encounters Date Type Department Care Team ([facility] st Contact Info) Description 02/01/2025 9:00 AM EDT Clinical Support [facility] MED & PEDS [address] [place] [address] Alana Hook, RACHELLE 505 [place] [address] 02/22/2025 1:45 PM EDT Office Visit [facility] MED & PEDS [address] [place] [address] Ayaka Salgado MD [address] [place] [address] documented as of this encounter Visit Diagnoses Not on filedocumented in this encounter Additional Health Concerns Assessment Noted Time PHQ-9 Depression Total Score: 7 08/29/20 22 10:26 AM EST documented as of this encounter Care Teams Mapping Editor Relationship Specialty Start Date End Date Ayaka Salgado MD [address] [place] [address] PCP - General Internal Medicine 09/15/18 documented as of this encounter
--- OUTSIDE RECORDS SUMMARY | 2025-01-26 10:59 | XMS_ITS | Encounter Summary ---
Author Organization [employer] Address [address] [facility] 7t [place] [address] Care Team Providers Care Lead Portfolio Manager Name Role Phone Ayaka Salgado MD Primary Care Provider [phone] Encounter Details Date Type Department Care Team ([facility] st Contact Info) Description 09/22/2023 Orders Only [facility] CHC MED & PEDS [address] [place] [address] Ayaka Salgado MD 505 [place], [place] [phone] Simple chronic bronchitis (CMS/HCC) (Primary Dx) Social [...] [facility] [address] [place] [address] Alana Hook, RACHELLE 505 [place] [address] 02/22/2025 1:45 PM EDT Office Visit [facility] MED & PEDS [address] [place] [address] Ayaka Salgado MD 505 [place] [address] documented as of this encounter Visit Diagnoses Diagnosis Simple chronic bronchitis (CMS/HCC)- Primary Simple chronic bronchitis documented in this encounter Additional Health Concerns Assessment Noted Time PHQ-9 Depression Total Score: 7 08/29/20 22 10:26 AM EST documented as of this encounter Care Teams Lead Portfolio Manager Relationship Specialty Start Date End Date Ayaka Salgado MD [address] [place] [address] PCP - General Internal Medicine 09/15/18 documented as of this encounter
--- OUTSIDE RECORDS SUMMARY | 2025-01-26 10:59 | XMS_ITS | Encounter Summary ---
Author Organization [employer] Address [address] [facility] 7t [place] [address] Care Team Providers Care Daycare Worker Name Role Phone Ayaka Salgado MD Primary Care Provider [phone] Encounter Details Date Type Department Care Team ([facility] st Contact Info) Description 08/18/2024 Telephone [facility] MEDICINE [address] [place] [address] Ayaka Salgado MD [address] [place] [phone] Social History Tobacco Use Types Packs/Day Years [...] Description 02/01/2025 9:00 AM EDT Clinical Support [facility] MED & PEDS [address] [place] [address] Alana Hook, RACHELLE 505 [place] [address] 02/22/2025 1:45 PM EDT Office Visit [facility] MED & PEDS [address] [place] [address] Ayaka Salgado MD 505 [place] [address] documented as of this encounter Visit Diagnoses Not on filedocumented in this encounter Additional Health Concerns Assessment Noted Time PHQ-9 Depression Total Score: 7 08/29/20 22 10:26 AM EST documented as of this encounter Care Teams Daycare Worker Relationship Specialty Start Date End Date Ayaka Salgado MD [address] [place] [address] PCP - General Internal Medicine 09/15/18 documented as of this encounter
--- OUTSIDE RECORDS SUMMARY | 2025-01-26 10:59 | XMS_ITS | Encounter Summary ---
Author Organization [employer] Address [address] [facility] 7t [place] [address] Care Team Providers Care Transcription Typist Name Role Phone Ayaka Salgado MD Primary Care Provider [phone] Reason for Visit * Reason Comments Med Refill Encounter Details Date Type Department Care Team (Late st Contact Info) Description 03/02/2024 Refill [facility] MEDICINE [address] [place] [address] Ayaka Salgado MD [address] [facility] [place] [address] Primary osteoarthritis involving multiple joints Social History [...] [facility] MED & PEDS 505 [place] [address] Alana Hook, RACHELLE 505 [place] [address] 02/22/2025 1:45 PM EDT Office Visit [facility] MED & PEDS [address] [place] [address] Ayaka Salgado MD 505 [place] [address] documented as of this encounter Visit Diagnoses Diagnosis Primary osteoarthritis involving multiple joints documented in this encounter Additional Health Concerns Assessment Noted Time PHQ-9 Depression Total Score: 7 08/29/20 22 10:26 AM EST documented as of this encounter Care Teams Transcription Typist Relationship Specialty Start Date End Date Ayaka Salgado MD 505 [place] [address] PCP - General Internal Medicine 09/15/18 documented as of this encounter
--- OUTSIDE RECORDS SUMMARY | 2025-01-26 10:59 | XMS_ITS | Encounter Summary ---
Author Organization [employer] Address [address] [place] [address] 7 [place] [address] Care Team Providers Care Senior Web Architect Name Role Phone Ayaka Salgado MD Primary Care Provider [phone] Encounter Details Date Type Department Care Team (Late st Contact Info) Description 01/23/2023 Abstract [facility] [address] [place] [address] Ayaka Salgado MD 505 [place], [place] [phone] Social History Tobacco Use Types Packs/Day Years [...] [facility] 505 [place] [address] Alana Hook RN 505 [place] [address] 02/22/2025 1:45 PM EDT Office Visit [facility] [address] [place] [address] Ayaka Salgado MD 505 [place] [address] documented as of this encounter Visit Diagnoses Not on filedocumented in this encounter Additional Health Concerns Assessment Noted Time PHQ-9 Depression Total Score: 7 08/29/20 22 10:26 AM EST documented as of this encounter Care Teams Senior Web Architect Relationship Specialty Start Date End Date Ayaka Salgado MD 505 [place] [address] PCP - General Internal Medicine 09/15/18 documented as of this encounter
--- OUTSIDE RECORDS SUMMARY | 2025-01-26 10:59 | XMS_ITS | Encounter Summary ---
Author Organization [employer] Address 75 [facility] 7 [place] [address] Care Team Providers Care Straw Hat Brim Raiser Operator Name Role Phone Ayaka Salgado MD Primary Care Provider [phone] Reason for Visit * Reason Comments Med Refill Encounter Details Date Type Department Care Team (Late st Contact Info) Description 01/22/2025 Refill [facility] MEDICINE 230 [place] [address] Ayaka Salgado MD 505 [facility] [place] [phone] Primary insomnia Social History Tobacco Use Types [...] White LPN - 01/24/2025 1:21 PM EDT DOOR HANGER checked on 01/24/25. Last seen 11/22/24. documented in this encounter Plan of Treatment Upcoming Encounters Date Type Department Care Team (Late st Contact Info) Description 02/01/2025 9:00 AM EDT Clinical Support [facility] 505 [place] [address] Alana Hook RN 505 [place] [address] 02/22/2025 1:45 PM EDT Office Visit [facility] 505 [place] [address] Ayaka Salgado MD 505 [place] [address] documented as of this encounter Visit Diagnoses Diagnosis Primary insomnia Persistent disorder of initiating or maintaining sleep documented in this encounter Additional Health Concerns Assessment Noted Time PHQ-9 Depression Total Score: 12 025 11:13 AM EDT documented as of this encounter Care Teams Straw Hat Brim Raiser Operator Relationship Specialty Start Date End Date Ayaka Salgado MD [address] [place] [address] PCP - General Internal Medicine 09/15/18 documented as of this encounter
--- OUTSIDE RECORDS SUMMARY | 2025-01-26 10:59 | XMS_ITS | Encounter Summary ---
Author Organization [employer] Address 75 [facility] 7 [place] [address] Care Team Providers Care Welfare Centre Manager Name Role Phone Ayaka Salgado MD Primary Care Provider [phone] Reason for Visit * Reason Onset Date Comments Med Refill 08/09/2024 Encounter Details Date Type Department Care Team ([facility] st Contact Info) Description 08/09/2024 Telephone [facility] MEDICINE 230 [place], [place] [phone] Ayaka Salgado MD 505 [facility] [place] [address] Med Refill Social History Tobacco Use Types [...] 5-325 MG tablet To be sent to: [facility][id number] documented in this encounter Plan of Treatment Upcoming Encounters Date Type Department Care Team ([facility] st Contact Info) Description 02/01/2025 9:00 AM EDT Clinical Support [facility] 505 [place] [address] Alana Hook RN 505 [place] [address] 02/22/2025 1:45 PM EDT Office Visit [facility] [address] [place] [address] Ayaka Salgado MD 505 [place] [address] documented as of this encounter Visit Diagnoses Not on filedocumented in this encounter Additional Health Concerns Assessment Noted Time PHQ-9 Depression Total Score: 7 08/29/20 22 10:26 AM EST documented as of this encounter Care Teams Welfare Centre Manager Relationship Specialty Start Date End Date Ayaka Salgado MD [address] [place] [address] PCP - General Internal Medicine 09/15/18 documented as of this encounter
--- OUTSIDE RECORDS SUMMARY | 2025-01-26 10:59 | XMS_ITS | Encounter Summary ---
Author Organization [employer] Address 75 [facility] 7t [place] [address] Care Team Providers Care Nursery Helper Name Role Phone Ayaka Salgado MD Primary Care Provider [phone] Encounter Details Date Type Department Care Team (Late st Contact Info) Description 10/11/2022 Orders Only [facility] MEDICINE 230 [place] [address] Ayaka Salgado MD [address] [facility] [place] [place] [address] Congestive heart failure, unspecified HF chronicity, unspecified [...] [facility] 505 [place] [address] Alana Hook RN 505 [place] [address] 02/22/2025 1:45 PM EDT Office Visit [facility] 505 [place] [address] Ayaka Salgado MD 505 [place] [address] documented as of this encounter Visit Diagnoses Diagnosis Congestive heart failure, unspecified HF chronicity, unspecified heart failure type (CMS/HCC) Edema of foot Edema documented in this encounter Additional Health Concerns Assessment Noted Time PHQ-9 Depression Total Score: 7 08/29/20 22 10:26 AM EST documented as of this encounter Care Teams Nursery Helper Relationship Specialty Start Date End Date Ayaka Salgado MD 505 [place] [address] PCP - General Internal Medicine 09/15/18 documented as of this encounter
--- OUTSIDE RECORDS SUMMARY | 2025-01-26 10:59 | XMS_ITS ---
Author Organization [employer] Address [address] [place] [address] 7 [place] [address] Care Team Providers Care Tassel Maker Name Role Phone Ayaka Salgado MD Primary Care Provider [phone] INVESTIGATION MANAGER Status:Enrolled (Active) Start date:12/20/2022 Enrollment date:12/20/2022 Case Team Name Relationship Phone Alana Hook RN(Responsible Staff) Registered Nurse Continued Care and Services Coordination
--- OUTSIDE RECORDS SUMMARY | 2025-01-26 10:59 | XMS_ITS | Encounter Summary ---
Author Organization [employer] Address 75 [facility] [place] [address] Care Team Providers Care Tile Mechanic Helper Name Role Phone Ayaka Salgado MD Primary Care Provider [phone] Reason for Visit * Reason Onset Date Comments Med Refill 01/19/2025 Encounter Details Date Type Department Care Team ([facility] st Contact Info) Description 01/19/2025 Telephone [facility] MEDICINE 230 [place], [place] [phone] Ayaka Salgado MD 505 [facility] [place] [address] Med Refill Social History Tobacco Use Types [...] the past 12 months, has t he [employer], gas, oil or water company threatened to [...] Telephone Encounter - Lissa White LPN - 01/19/2025 8:27 AM EDT Melatonin has refills and Ambien to soon for refill [facility] checked on 01/19/25 last filled on 12/26/24 #30. * Telephone Encounter - Cleopatra Ortiz - 01/19/2025 8:14 AM EDT TC from pt requesting medication refill. Medications needing refill : melatonin 5 MG tablet zolpidem (Ambien) 10 MG tablet To be sent to: [id number] - [place] - [address] [facility] [place] documented in this encounter Plan of Treatment Upcoming Encounters Date Type Department Care Team ([facility] st Contact Info) Description 02/01/2025 9:00 AM EDT Clinical Support [facility] 505 [place] [address] Alana Hook, RACHELLE 505 [place] [address] 02/22/2025 1:45 PM EDT Office Visit [facility] 505 [place] [address] Ayaka Salgado MD 505 [place] [address] documented as of this encounter Visit Diagnoses Not on filedocumented in this encounter Additional Health Concerns Assessment Noted Time PHQ-9 Depression Total Score: 12 025 11:13 AM EDT documented as of this encounter Care Teams Tile Mechanic Helper Relationship Specialty Start Date End Date Ayaka Salgado MD 505 [place] [address] PCP - General Internal Medicine 09/15/18 documented as of this encounter
--- OUTSIDE RECORDS SUMMARY | 2025-01-26 10:59 | XMS_ITS | Encounter Summary ---
Author Organization [employer] Address 75 [facility] 7 [place] [address] Care Team Providers Care Combination Building Inspector Name Role Phone Ayaka Salgado MD Primary Care Provider [phone] Reason for Visit * Reason Onset Date Comments Med Refill 12/01/2023 Encounter Details Date Type Department Care Team ([facility] st Contact Info) Description 12/01/2023 Telephone [facility] MEDICINE 230 [place], [place] [phone] Ayaka Salgado MD 505 [facility] [place] [address] Med Refill Social History Tobacco Use Types [...] 10 MG tablet To be sent to: [facility] #[id number] - [place] - [facility] [address] [facility] [place] documented in this encounter Plan of Treatment Upcoming Encounters Date Type Department Care Team ([facility] st Contact Info) Description 02/01/2025 9:00 AM EDT Clinical Support [facility] PEDS 505 [place] [address] Alana Hook RN 505 [place] [address] 02/22/2025 1:45 PM EDT Office Visit [facility]ED[facility] 505 [place] [address] Ayaka Salgado MD 505 [place] [address] documented as of this encounter Visit Diagnoses Not on filedocumented in this encounter Additional Health Concerns Assessment Noted Time PHQ-9 Depression Total Score: 7 08/29/20 22 10:26 AM EST documented as of this encounter Care Teams Combination Building Inspector Relationship Specialty Start Date End Date Ayaka Salgado MD [address] [place] [address] PCP - General Internal Medicine 09/15/18 documented as of this encounter
--- OUTSIDE RECORDS SUMMARY | 2025-01-26 10:59 | XMS_ITS | Encounter Summary ---
Author Organization [employer] Address 75 [facility] 7 [place] [address] Care Team Providers Care Caterpillar Driver Name Role Phone Ayaka Salgado MD Primary Care Provider [phone] Reason for Visit * Reason Onset Date Comments Med Refill 05/11/2024 Encounter Details Date Type Department Care Team ([facility] st Contact Info) Description 05/11/2024 Telephone [facility] MEDICINE 230 [place], [place] [phone] Ayaka Salgado MD 505 [facility] [place] [address] Med Refill Social History Tobacco Use Types [...] 5-325 MG tablet To be sent to: [facility] documented in this encounter Plan of Treatment Upcoming Encounters Date Type Department Care Team ([facility] st Contact Info) Description 02/01/2025 9:00 AM EDT Clinical Support [facility] 505 [place] [address] Alana Hook RN 505 [place] [address] 02/22/2025 1:45 PM EDT Office Visit [facility] 505 [place] [address] Ayaka Salgado MD 505 [place] [address] documented as of this encounter Visit Diagnoses Not on filedocumented in this encounter Additional Health Concerns Assessment Noted Time PHQ-9 Depression Total Score: 7 12/15/20 22 10:26 AM EST documented as of this encounter Care Teams Caterpillar Driver Relationship Specialty Start Date End Date Ayaka Salgado MD [address] [place] [address] PCP - General Internal Medicine 09/15/18 documented as of this encounter
--- OUTSIDE RECORDS SUMMARY | 2025-01-26 10:59 | XMS_ITS | Encounter Summary ---
Author Organization [employer] Address 75 [facility] 7t [place] [address] Care Team Providers Care Imaging Technician Name Role Phone Ayaka Salgado MD Primary Care Provider [phone] Encounter Details Date Type Department Care Team ([facility] st Contact Info) Description 04/29/2024 Telephone [facility] MEDICINE 230 [place] [address] Ayaka Salgado MD [address] [place] [phone] Social History Tobacco Use Types Packs/Day Years [...] 10 MG tablet To be sent to: [facility][id number] - [place], [place] - [address] [facility] [address] documented in this encounter Plan of Treatment Upcoming Encounters Date Type Department Care Team ([facility] st Contact Info) Description 02/01/2025 9:00 AM EDT Clinical Support [facility] MED [facility] PEDS 505 [place] [address] Alana Hook RN 505 [place] [address] 02/22/2025 1:45 PM EDT Office Visit [facility] 505 [place] [address] Ayaka Salgado MD 505 [place] [address] documented as of this encounter Visit Diagnoses Not on filedocumented in this encounter Additional Health Concerns Assessment Noted Time PHQ-9 Depression Total Score: 7 08/29/20 22 10:26 AM EST documented as of this encounter Care Teams Imaging Technician Relationship Specialty Start Date End Date Ayaka Salgado MD [address] [place] [address] PCP - General Internal Medicine 09/15/18 documented as of this encounter
--- OUTSIDE RECORDS SUMMARY | 2025-01-26 10:59 | XMS_ITS | Encounter Summary ---
Author Organization [employer] Address 75 [facility] 7 [place] [address] Care Team Providers Care Clean Rice Grader And Reel Tender Name Role Phone Ayaka Salgado MD Primary Care Provider [phone] Reason for Visit * Reason Comments Med Refill Encounter Details Date Type Department Care Team (Late st Contact Info) Description 10/07/[address] [facility] 230 [place] [address] Ayaka Salgado MD 505 [facility] [place] [address] Primary osteoarthritis involving multiple joints Social History [...] [facility] 505 [place] [address] Alana Hook RN 505 [place] [address] 02/22/2025 1:45 PM EDT Office Visit [facility] 505 [place] [address] Ayaka Salgado MD 505 [place] [address] documented as of this encounter Visit Diagnoses Diagnosis Primary osteoarthritis involving multiple joints documented in this encounter Additional Health Concerns Assessment Noted Time PHQ-9 Depression Total Score: 7 08/29/20 22 10:26 AM EST documented as of this encounter Care Teams Clean Rice Grader And Reel Tender Relationship Specialty Start Date End Date Ayaka Salgado MD 505 [place] [address] PCP - General Internal Medicine 09/15/18 documented as of this encounter
--- OUTSIDE RECORDS SUMMARY | 2025-01-26 10:59 | XMS_ITS | Encounter Summary ---
Author Organization [employer] Address [address] [place] [address] 7 [place] [address] Care Team Providers Care Manager Business Continuity Name Role Phone Ayaka Salgado MD Primary Care Provider [phone] Reason for Visit * Reason Comments Med Refill Encounter Details Date Type Department Care Team ([facility] st Contact Info) Description 07/28/2023 Refill [facility]S 505 [place] [address] Ayaka Salgado MD 505 [place] [address] Social History Tobacco Use Types Packs/Day Years [...] 9:00 AM EDT Clinical Support [facility] 505 [place] [address] Alana Hook, RACHELLE 505 [place] [address] 02/22/2025 1:45 PM EDT Office Visit [facility] 505 [place] [address] Ayaka Salgado MD 505 [place] [address] documented as of this encounter Visit Diagnoses Not on filedocumented in this encounter Additional Health Concerns Assessment Noted Time PHQ-9 Depression Total Score: 7 08/29/20 22 10:26 AM EST documented as of this encounter Care Teams Manager Business Continuity Relationship Specialty Start Date End Date Ayaka Salgado MD 505 [place] [address] PCP - General Internal Medicine 09/15/18 documented as of this encounter
--- OUTSIDE RECORDS SUMMARY | 2025-01-26 10:59 | XMS_ITS | Encounter Summary ---
Author Organization [employer] Address [address] [place] [address] 7 [place] [address] Care Team Providers Care Client Service Coordinator Name Role Phone Ayaka Salgado MD Primary Care Provider [phone] Encounter Details Date Type Department Care Team (Late st Contact Info) Description 02/19/2023 Abstract [facility] 230 [place] [address] Ayaka Salgado MD 505 [place], [place] [phone] Social History Tobacco Use Types Packs/Day Years [...] Description 02/01/2025 9:00 AM EDT Clinical Support [facility] 505 [place] [address] Alana Hook RN 505 [place] [address] 02/22/2025 1:45 PM EDT Office Visit [facility]ED[facility] 505 [place] [address] Ayaka Salgado MD 505 [place] [address] documented as of this encounter Visit Diagnoses Not on filedocumented in this encounter Additional Health Concerns Assessment Noted Time PHQ-9 Depression Total Score: 7 08/29/20 22 10:26 AM EST documented as of this encounter Care Teams Client Service Coordinator Relationship Specialty Start Date End Date Ayaka Salgado MD 505 [place] [address] PCP - General Internal Medicine 09/15/18 documented as of this encounter
--- OUTSIDE RECORDS SUMMARY | 2025-01-26 10:59 | XMS_ITS | Encounter Summary ---
Author Organization [employer] Address [address] [place] [address] Care Team Providers Care Diesel Technology Instructor Name Role Phone Ayaka Salgado MD Primary Care Provider [phone] Reason for Visit * Reason Onset Date Comments Letter Accomodation 12/12/2022 Encounter Details Date Type Department Care Team ([facility] st Contact Info) Description 12/12/2022 Telephone [facility] PEDS 505 [place] [address] Ayaka Salgado MD 505 [place] [address] Letter Accomodation Social History Tobacco Use Types [...] [email or web address]. Advised message will be forwarded to [facility] nurse regarding his request. Pt verbalizes understanding. * Telephone Encounter - Abiel Mills - 12/12/2022 9:32 AM EDT Tc from pt requesting an Accomodation letter. Please contact pt at [phone] documented in this encounter Plan of Treatment Upcoming Encounters Date Type Department Care Team (Late st Contact Info) Description 02/01/2025 9:00 AM EDT Clinical Support [facility] MED & PEDS 505 [place] [address] Alana Hook, RN 505 [place] [address] 02/22/2025 1:45 PM EDT Office Visit [facility]EDS 505 [place] [address] Ayaka Salgado MD 505 [place] [address] documented as of this encounter Visit Diagnoses Diagnosis Congestive heart failure, unspecified HF chronicity, unspecified heart failure type (CMS/HCC) Primary osteoarthritis involving multiple joints documented in this encounter Additional Health Concerns Assessment Noted Time PHQ-9 Depression Total Score: 7 08/29/20 22 10:26 AM EST documented as of this encounter Care Teams Diesel Technology Instructor Relationship Specialty Start Date End Date Ayaka Salgado MD 505 [place] [address] PCP - General Internal Medicine 09/15/18 documented as of this encounter
--- OUTSIDE RECORDS SUMMARY | 2025-01-26 10:59 | XMS_ITS | Encounter Summary ---
Author Organization [employer] Address 75 [facility] 7t [place] [address] Care Team Providers Care Net Application Architect Name Role Phone Ayaka Salgado MD Primary Care Provider [phone] Encounter Details Date Type Department Care Team ([facility] st Contact Info) Description 05/26/2024 Orders Only [facility] PEDS [address] [place] [address] Ayaka Salgado MD 505 [place], [place] [phone] Simple chronic bronchitis (CMS/HCC) (Primary Dx) Social [...] [facility] MED [facility] PEDS [address] [place] [address] Alana Hook, RACHELLE 505 [place] [address] 02/22/2025 1:45 PM EDT Office Visit [facility] PEDS [address] [place] [address] Ayaka Salgado MD 505 [place] [address] documented as of this encounter Visit Diagnoses Diagnosis Simple chronic bronchitis (CMS/HCC)- Primary Simple chronic bronchitis documented in this encounter Additional Health Concerns Assessment Noted Time PHQ-9 Depression Total Score: 7 08/29/20 22 10:26 AM EST documented as of this encounter Care Teams Net Application Architect Relationship Specialty Start Date End Date Ayaka Salgado MD 505 [place] [address] PCP - General Internal Medicine 09/15/18 documented as of this encounter
--- OUTSIDE RECORDS SUMMARY | 2025-01-26 10:59 | XMS_ITS | Encounter Summary ---
Author Organization [employer] Address 75 [facility] [address], [place] [address] Care Team Providers Care Chucking Machine Operator Name Role Phone Ayaka Salgado MD Primary Care Provider [phone] Reason for Visit * Reason Onset Date Comments Med Refill 01/25/2025 Encounter Details Date Type Department Care Team ([facility] st Contact Info) Description 01/25/2025 Telephone [facility] MEDICINE 230 [place] [address] Ayaka Salgado MD 505 [facility] [place] [address] Med Refill Social History Tobacco Use Types [...] the past 12 months, has t he [employer], gas, oil or water company threatened to [...] 10 MG tablet To be sent to: [facility][id number] [place] - [address] [facility] [place] documented in this encounter Plan of Treatment Upcoming Encounters Date Type Department Care Team ([facility] st Contact Info) Description 02/01/2025 9:00 AM EDT Clinical Support [facility] PED[facility] [address] [place] [address] Alana Hook RN [address] [place] [address] 02/22/2025 1:45 PM EDT Office Visit [facility] MED & PEDS [address] [place] [address] Ayaka Salgado MD 505 [place] [address] documented as of this encounter Visit Diagnoses Not on filedocumented in this encounter Additional Health Concerns Assessment Noted Time PHQ-9 Depression Total Score: 12 025 11:13 AM EDT documented as of this encounter Care Teams Chucking Machine Operator Relationship Specialty Start Date End Date Ayaka Salgado MD 505 [place] [address] PCP - General Internal Medicine 09/15/18 documented as of this encounter
--- OUTSIDE RECORDS SUMMARY | 2025-01-26 10:59 | XMS_ITS | Encounter Summary ---
Author Organization [employer] Address [address] [place] [address] 7 [place] [address] Care Team Providers Care Major Account Representative Name Role Phone Ayaka Salgado MD Primary Care Provider [phone] Reason for Visit * Reason Comments Med Refill Encounter Details Date Type Department Care Team ([facility] st Contact Info) Description 01/06/2023 Refill [facility] CHC MED & PEDS [address] [place] [address] Ayaka Salgado MD 505 [place] [address] Primary osteoarthritis involving multiple joints Social History [...] [facility] MED & PEDS [address] [place] [address] Alana Hook RN 505 [place] [address] 02/22/2025 1:45 PM EDT Office Visit [facility] MED & PEDS [address] [place] [address] Ayaka Salgado MD 505 [place] [address] documented as of this encounter Visit Diagnoses Diagnosis Primary osteoarthritis involving multiple joints documented in this encounter Additional Health Concerns Assessment Noted Time PHQ-9 Depression Total Score: 7 08/29/20 22 10:26 AM EST documented as of this encounter Care Teams Major Account Representative Relationship Specialty Start Date End Date Ayaka Salgado MD 505 [place] [address] PCP - General Internal Medicine 09/15/18 documented as of this encounter
--- OUTSIDE RECORDS SUMMARY | 2025-01-26 10:59 | XMS_ITS | Encounter Summary ---
Author Organization [employer] Address [address] [place] [address] 7 [place] [address] Care Team Providers Care Transitions Manager Name Role Phone Ayaka Salgado MD Primary Care Provider [phone] Reason for Visit * Reason Onset Date Comments Med Refill 08/05/2024 Encounter Details Date Type Department Care Team ([facility] st Contact Info) Description 08/05/2024 Refill [facility] CHC MED & PEDS [address] [place] [address] Ayaka Salgado MD 505 [place] [address] Back pain, unspecified back location, unspecified back [...] 5-325 MG tablet To be sent to: [id number] - [place] - [address] [facility] [place] documented in this encounter Plan of Treatment Upcoming Encounters Date Type Department Care Team (Late st Contact Info) Description 02/01/2025 9:00 AM EDT Clinical Support [facility] MED & PEDS [address] [place] [address] Alana Hook RN 505 [place] [address] 02/22/2025 1:45 PM EDT Office Visit [facility] MED & PEDS [address] [place] [address] Ayaka Salgado MD 505 [place] [address] documented as of this encounter Visit Diagnoses Diagnosis Back pain, unspecified back location, unspecified back pain laterality, unspecified chronicity- Primary documented in this encounter Additional Health Concerns Assessment Noted Time PHQ-9 Depression Total Score: 7 08/29/20 22 10:26 AM EST documented as of this encounter Care Teams Transitions Manager Relationship Specialty Start Date End Date Ayaka Salgado MD 505 [place] [address] PCP - General Internal Medicine 09/15/18 documented as of this encounter
--- OUTSIDE RECORDS SUMMARY | 2025-01-26 10:59 | XMS_ITS | Encounter Summary ---
Author Organization [employer] Address [address] [facility] 7 [place] [address] Care Team Providers Care Electronic Systems Security Assessment Name Role Phone Ayaka Salgado MD Primary Care Provider [phone] Reason for Visit * Reason Onset Date Comments Med Refill 07/28/2023 Encounter Details Date Type Department Care Team ([facility] Contact Info) Description 07/28/2023 Telephone [facility] CHC MED & PEDS [address] [place] [address] Ayaka Salgado MD 505 [place] [address] Med Refill Social History Tobacco Use Types [...] (Percocet) 5-325 MG tablet Please sent to [id number] - [place] - [address] [facility] [place] documented in this encounter Plan of Treatment Upcoming Encounters Date Type Department Care Team ([facility] st Contact Info) Description 02/01/2025 9:00 AM EDT Clinical Support [facility] MED & PEDS [address] [place] [address] Alana Hook RN 505 [place] [address] 02/22/2025 1:45 PM EDT Office Visit [facility] MED & PEDS [address] [place] [address] Ayaka Salgado MD 505 [place] [address] documented as of this encounter Visit Diagnoses Not on filedocumented in this encounter Additional Health Concerns Assessment Noted Time PHQ-9 Depression Total Score: 7 08/29/20 22 10:26 AM EST documented as of this encounter Care Teams Electronic Systems Security Assessment Relationship Specialty Start Date End Date Ayaka Salgado MD [address] [place] [address] PCP - General Internal Medicine 09/15/18 documented as of this encounter
--- OUTSIDE RECORDS SUMMARY | 2025-01-26 10:59 | XMS_ITS | Encounter Summary ---
Author Organization [employer] Address [address] [facility] [place], [place] [address] Care Team Providers Care Price Changer Name Role Phone Ayaka Salgado MD Primary Care Provider [phone] Reason for Visit * Reason Onset Date Comments Med Refill 01/19/2025 Encounter Details Date Type Department Care Team ([facility] st Contact Info) Description 01/19/2025 Telephone [facility] MEDICINE [address] [place], [place] [phone] Ayaka Salgado MD 505 [facility] [place] [address] Med Refill Social History Tobacco Use Types [...] the past 12 months, has t he [employer], gas, oil or water company threatened to [...] 5-325 MG tablet To be sent to: [id number] [place] - [facility] documented in this encounter Plan of Treatment Upcoming Encounters Date Type Department Care Team ([facility] st Contact Info) Description 02/01/2025 9:00 AM EDT Clinical Support [facility] MED & PEDS [address] [facility] [place] [address] Alana Hook, RACHELLE [address] [facility] [place] [address] 02/22/2025 1:45 PM EDT Office Visit [facility] MED & PEDS 505 [place] [address] Ayaka Salgado MD 505 [place] [address] documented as of this encounter Visit Diagnoses Not on filedocumented in this encounter Additional Health Concerns Assessment Noted Time PHQ-9 Depression Total Score: 12 025 11:13 AM EDT documented as of this encounter Care Teams Price Changer Relationship Specialty Start Date End Date Ayaka Salgado MD 505 [place] [address] PCP - General Internal Medicine 09/15/18 documented as of this encounter
--- OUTSIDE RECORDS SUMMARY | 2025-01-26 10:59 | XMS_ITS | Encounter Summary ---
Author Organization [employer] Address [address] [facility] 7 [place] [address] Care Team Providers Care Gravel Weigher Name Role Phone Ayaka Salgado MD Primary Care Provider [phone] Reason for Visit * Reason Onset Date Comments Med Refill 07/31/2023 Encounter Details Date Type Department Care Team ([facility] st Contact Info) Description 07/31/[address] [facility] MEDICINE 230 [place] [address] Ayaka Salgado MD 505 [facility] [place] [address] Med Refill Social History Tobacco Use Types [...] Upcoming Encounters Date Type Department Care Team ([facility] st Contact Info) Description 02/01/2025 9:00 AM EDT Clinical Support [facility] MED & PEDS 505 [place] [address] Alana Hook, RACHELLE 505 [place] [address] 02/22/2025 1:45 PM EDT Office Visit [facility] MED & PEDS 505 [place] [address] Ayaka Salgado MD 505 [place] [address] documented as of this encounter Visit Diagnoses Not on filedocumented in this encounter Additional Health Concerns Assessment Noted Time PHQ-9 Depression Total Score: 7 08/29/20 10:26 AM EST documented as of this encounter Care Teams Gravel Weigher Relationship Specialty Start Date End Date Ayaka Salgado MD [address] [place] [address] PCP - General Internal Medicine 09/15/18 documented as of this encounter
--- OUTSIDE RECORDS SUMMARY | 2025-01-26 10:59 | XMS_ITS | Encounter Summary ---
Author Organization [employer] Address [address] [facility] 7t [place] [address] Care Team Providers Care Nursery Supervisor Name Role Phone Ayaka Salgado MD Primary Care Provider [phone] Reason for Visit * Reason Comments Med Refill Encounter Details Date Type Department Care Team (Late st Contact Info) Description 06/15/2024 Refill [facility] MEDICINE 230 [place], [place] [phone] Lev Gentile MD 230 [place], [place] [phone] Chronic pruritus Social History Tobacco Use Types [...] - [facility]EDS [address] [place] [address] Alana Hook, RACHELLE 505 [place] [address] 02/22/2025 1:45 PM EDT Office Visit [facility] MED & PEDS 505 [place] [address] Ayaka Salgado MD 505 [place] [address] documented as of this encounter Visit Diagnoses Diagnosis Chronic pruritus documented in this encounter Additional Health Concerns Assessment Noted Time PHQ-9 Depression Total Score: 7 08/29/20 22 10:26 AM EST documented as of this encounter Care Teams Nursery Supervisor Relationship Specialty Start Date End Date Ayaka Salgado MD 505 [place] [address] PCP - General Internal Medicine 09/15/18 documented as of this encounter
--- OUTSIDE RECORDS SUMMARY | 2025-01-26 10:59 | XMS_ITS | Encounter Summary ---
Author Organization [employer] Address 75 [facility] 7[facility] [place] [address] Care Team Providers Care Care Technician Name Role Phone Ayaka Salgado MD Primary Care Provider [phone] Reason for Visit * Reason Onset Date Comments r/s appt 08/23/2022 Encounter Details Date Type Department Care Team (Late st Contact Info) Description 08/23/2022 Telephone [facility] MEDICINE [address] [place] [address] Ayaka Salgado MD 505 [facility] [place] [address] r/s appt Social History Tobacco Use Types [...] appt has been canceled. Please contact at [phone] documented in this encounter Plan of Treatment Upcoming Encounters Date Type Department Care Team (Late Contact Info) Description 02/01/2025 9:00 AM EDT Clinical Support [facility] MED & PEDS 505 [place] [address] Alana Hook, RN 505 [place] [address] 02/22/2025 1:45 PM EDT Office Visit [facility] MED & PEDS 505 [place] [address] Ayaka Salgado MD 505 [place] [address] documented as of this encounter Visit Diagnoses Not on filedocumented in this encounter Care Teams Care Technician Relationship Specialty Start Date End Date Ayaka Salgado MD 505 [place] [address] PCP - General Internal Medicine 09/15/18 documented as of this encounter
--- OUTSIDE RECORDS SUMMARY | 2025-01-26 10:59 | XMS_ITS | Encounter Summary ---
Author Organization [employer] Address [address] [place] [address] [place], [place] [address] Care Team Providers Care Transport Pilot Name Role Phone Ayaka Salgado MD Primary Care Provider [phone] Reason for Visit * Reason Onset Date Comments Med Refill 12/12/2022 Encounter Details Date Type Department Care Team ([facility] st Contact Info) Description 12/12/2022 Telephone [facility] MED & PEDS [address] [place] [address] Ayaka Salgado MD 505 [place] [address] Med Refill Social History Tobacco Use Types [...] (Percocet) 5-325 MG tablet Please sent to [id number] - [place], [place] - [address] [facility] documented in this encounter Plan of Treatment Upcoming Encounters Date Type Department Care Team (Late st Contact Info) Description 02/01/2025 9:00 AM EDT Clinical Support [facility] MED & PEDS 505 [place] [address] Alana Hook, RN 505 [place] [address] 02/22/2025 1:45 PM EDT Office Visit [facility] MED & PEDS [address] [place] [address] Ayaka Salgado MD 505 [place] [address] documented as of this encounter Visit Diagnoses Not on filedocumented in this encounter Additional Health Concerns Assessment Noted Time PHQ-9 Depression Total Score: 7 08/29/20 22 10:26 AM EST documented as of this encounter Care Teams Transport Pilot Relationship Specialty Start Date End Date Ayaka Salgado MD 505 [place] [address] PCP - General Internal Medicine 09/15/18 documented as of this encounter
== END 2025-01-26 11:08 | disposition home or self-care (01) ==
LOC: HO.HPS 10:03
PROVIDERS: PCP Internal Medicine; Visit Provider Internal Medicine
DX: D64.9 Anemia, unspecified (principal); J44.9 Chronic obstructive pulmonary disease, unspecified; G47.33 Obstructive sleep apnea (adult) (pediatric); F17.200 Nicotine dependence, unspecified, uncomplicated; R06.09 Other forms of dyspnea
CPT/HCPCS: 94010; 99214

== ENCOUNTER → 2025-01-26 10:03 | Outpatient (BNVA) | payer MEDICARE, SELFPAY | PROVIDERS: PCP Internal Medicine; Visit Provider Internal Medicine | DX: Z13.89 Encounter for screening for other disorder (principal) | CPT/HCPCS: 94010; 99212 ==

== ENCOUNTER 2025-01-26 12:00 | Outpatient (REF) | payer MEDICARE, SELFPAY ==
--- OUTSIDE RECORDS SUMMARY | 2025-01-26 12:43 | XMS_ITS | Encounter Summary ---
Author Organization [facility] Address [address] [place] [address] Care Team Providers Care Security Installer Name Role Phone Ayaka Salgado Primary Care Provider [phone] Encounter Details Date Type Department Care Team (Late st Contact Info) Description 07/29/2024 Orders Only [facility] XRay [address] [place] [address] Waqas Garnett MD 55 [place] [address] Social History Tobacco Use Types Packs/Day Years [...] Info) Description 08/02/2025 8:20 AM EST Follow-Up [facility] Renal Transplant [address] [place] [address] Joey Duarte MD 55 [place] [address] 08/02/2025 9:00 AM EST Social Work [facility] Renal Transplant [address] [place] [address] Susan Babb LICSW [address] [place] [address] documented as of this encounter Visit Diagnoses Not on filedocumented in this encounter Care Teams Security Installer Relationship Specialty Start Date End Date Ayaka Salgado [address] [place] [address] PCP - General Internal Medicine 07/29/24 documented as of this encounter
--- OUTSIDE RECORDS SUMMARY | 2025-01-26 12:43 | XMS_ITS | Clinical Summary ---
Author Organization [employer] Address [address] [place] [address] 7t [place] [address] Care Team Providers Care Fire Pot Operator Name Role Phone Ayaka Salgado MD Primary Care Provider [phone] Allergies Active Allergy Reactions Criticality Noted Date [...] split. 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 11/13 Pruritus [...] Type Department Care Team Description 01/25/2025 Telephone [facility] MEDICINE [address] [place] [address] Ayaka Salgado MD Med Refill 01/22/2025 Refill [facility] MEDICINE [address] [place] [address] Ayaka Salgado MD Primary insomnia 01/19/2025 Refill [facility] CHC MED & PEDS [address] [place] [address] Alana Hook, RACHELLE Arthropathy 01/19/2025 Telephone [facility] MEDICINE [address] [place] [address] Ayaka Salgado MD Med Refill 01/19/2025 Telephone [facility] MEDICINE [address] [place] [address] Ayaka Salgado MD Med Refill 12/31/2024 Refill [facility] MEDICINE [address] [place] [address] Ayaka Salgado MD Arthropathy 12/28/2024 Refill [facility] MEDICINE [address] [place] [address] Ayaka Salgado MD 12/24/2024 Refill [facility] MEDICINE [address] [place] [address] Ayaka Salgado MD Primary insomnia 12/15/2024 Refill [facility] MED & PEDS 505 [place] [address] Ayaka Salgado MD Arthropathy 12/07/2024 Orders Only GENERIC EXTERNAL DATA DEPARTMENT Provider, Generic External Data 11/27/2024 Refill [facility] MED & PEDS 505 [place] [address] Ayaka Salgado MD 11/24/2024 9:00 AM EDT Clinical Support [facility] MED & PEDS 505 [place] [address] Alana Hook RN Back pain, unspecified back location, unspecified back pain laterality, unspecified chronicity (Primary Dx); 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 11/24/2024 Refill [facility] MED & PEDS [address] [place] [address] Alana Hook RN Primary osteoarthritis of both knees (Primary Dx); Primary insomnia 11/24/2024 Travel 11/23/2024 Orders Only [facility] External Provider, [facility] 11/22/2024 11:00 AM EDT Office Visit [facility] MED & PEDS [address] [place] [address] Ayaka Salgado MD Chronic obstructive pulmonary disease, unspecified COPD type (CMS/HCC) (Primary Dx); BOWMAN (dyspnea on exertion); 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); Primary insomnia 11/22/2024 Travel 11/03/2024 Refill [facility] MEDICINE [address] [place] [address] Ayaka Salgado MD Arthropathy from Last 3 [...] [facility]S 505 [place] [address] Alana Hook RN 505 [place] [address] 02/22/2025 1:45 PM EDT Office Visit [facility] MED & PEDS 505 [place] [address] Ayaka Salgado MD 505 [place] [address] Health Maintenance Due Date Last Done Comments [...] DRUG SCREEN Routine 11/24/2024 9:21 AM EDT 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 Back pain, [...] (12/07/2024 10:29 AM EDT) Blood Type OP [facility] 12/07/2024 10:2 9 AM EDT 12/07/2024 2:21 PM EDT us Generic External Data Provider LAB BLOOD BANK TE ST ORDERABLES Final Result Performing Organization Address City/State/[facility] Co de Phone Number [facility] [address] [place] [phone] * POCT VESNA-14 Urine Drug Screen (11/24/2024 9:21 AM EDT) Oxycodone Screen, Urine Positive Urine Urine specimen obtained by clean catch procedure / Unknown 11/24/2024 9:21 AM EDT Narrative Alana Hook RN - 11/24/2024 9:21 AM EDT Lot# [id number] Exp: 05-04-26 us Ayaka Salgado MD POINT OF CARE TEST ENTER/ED IT ORDERABLES Final Result * CT Abdomen Pelvis w/o Contrast (11/23/2024 7:16 AM EDT) Anatomical Region Laterality Modality Body, Pelvis, Abdomen Computed T omography 11/23/2024 7:16 AM EDT Narrative 11/23/2024 1:44 PM EDT ? [facility] ?[address] ?[place] [address] ? CT Scan Report ? Signed ? Patient: Snyder Saldivar,Lewis ?MR#: [id number] ?? [id number] ? : 1955 ?Acct:[id number] ? Age/Sex: 68 / M ?ADM Date: 11/23/24 ? Loc: HO.CT ? Attending Dr: Joey Duarte MD ? Ordering Physician: Joey Duarte MD ?? Date of Service: 11/23/24 ?? Procedure(s): CT abdomen pelvis wo IV con ?? Accession Number(s): [id number] ? cc: Ayaka Salgado MD; Joey Duarte MD ? Report Number: ?? [id number]: Total DLP = ??562.00 mGy-cm ?? EXAMINATION: [...] DD/ 0716 ? TD/TT: 11/23/24 0749 ? Commercial Journeyman Electrician: ? Procedure Note Fredy Gordon - 11/23/[address] [place] [address] [address] Scan Report Signed Patient: Lewis GarrisonMR#: [id number] : 8Acct:[id number] Age/Sex: 68 / MADM Date: 11/23/24 Loc: HO.CT Attending Dr: Joey Duarte MD Ordering Physician: Joey Duarte MD Date of Service: 11/23/24 Procedure(s): CT abdomen pelvis wo IV con Accession Number(s): [id number] cc: Ayaka Salgado MD; Joey Duarte MD Report Number: [id number]: Total DLP = 562.00 mGy-cm EXAMINATION: CT [...] 11/23/24 1333 DD/ 0716 TD/TT: 11/23/24 0749 Commercial Journeyman Electrician: [facility] External Provider IMG CT PROCEDURES Final [...] Lot # [id number] Comment:RANDOM Lot# Expiration Date [id number] Blood Capillary blood specimen / Unknown 11/22/2024 11:52 AM EDT Ayaka Salgado MD POINT OF CARE TEST ENTER/ED IT ORDERABLES Final Result * Hm Diabetes Eye Exam (05/04/2024 12:18 PM EDT) Historical Provider HEALTH MAINTENANCE Final Result * (ABNORMAL) Lipid Panel, Standard (11/12/2023 9:08 AM EST) Triglycerides 55 <150 mg/dL [facility] Comment:Desirable Triglyceri de: less than 150 mg/dLBorderline High Triglyceride 150-199 mg/dLHigh Triglyceride: 200-499 mg/dLVery High Triglyceride: greater than or equal to 5OO mg/dL Cholesterol 101 <200 mg/dL [facility] Comment:Desirable Cholestero l: less than 200 mg/dLBorderline High Cholesterol: 200-239 mg/dLHigh Cholesterol: greater than 239 mg/dL LDL Cholesterol Calculated 57 <100 mg/dL [facility] Comment:Desirable LDL: less than 100 mg/dLNear Optimal/Above Optimal LDL: 110- 129 mg/dLBorderline High LDL: 130-159 mg/dLHigh LDL: 160-189 mg/dLVery High LDL: greater than or equal to 190 mg/dL HDL Cholesterol 33(L) >40 mg/dL [facility] Comment:Desirable HDL: great er than 40 mg/dL Note: This HDL assay may give artificially low results in patients with liver disease. Blood Venous blood specimen / Unknown 11/12/2023 9:08 AM EST 11/12/2023 2:41 PM EST us Ayaka Salgado MD LAB BLOOD ORDERABLES Final Result [facility] [address] [place] [address] [phone] from Last 3 Months or Most Recently Relevant to Health Maintenance Insurance [facility] MEDICARE ADVANTAGE HMO Care Teams Fire Pot Operator Relationship Specialty Start Date End Date Ayaka Salgado MD 505 [facility] [place] [address] PCP - General Internal Medicine 09/15/18
--- OUTSIDE RECORDS SUMMARY | 2025-01-26 12:43 | XMS_ITS | Encounter Summary ---
Author Organization [employer] Address 75 [facility] 7t [place] [address] Care Team Providers Care Operational Risk Consultant Name Role Phone Ayaka Salgado MD Primary Care Provider [phone] Encounter Details Date Type Department Care Team ([facility] st Contact Info) Description 08/20/2024 Orders Only [facility] CHC MED & PEDS [address] [place] [address] Ayaka Salgado MD 505 [place] [address] Social History Tobacco Use Types Packs/Day Years [...] [facility] MED & PEDS [address] [place] [address] Alana Hook, RACHELLE 505 [place] [address] 02/22/2025 1:45 PM EDT Office Visit [facility] MED & PEDS [address] [place] [address] Ayaka Salgado MD [address] [place] [address] documented as of this encounter Visit Diagnoses Not on filedocumented in this encounter Additional Health Concerns Assessment Noted Time PHQ-9 Depression Total Score: 7 08/29/20 22 10:26 AM EST documented as of this encounter Care Teams Operational Risk Consultant Relationship Specialty Start Date End Date Ayaka Salgado MD [address] [place] [address] PCP - General Internal Medicine 09/15/18 documented as of this encounter
--- OUTSIDE RECORDS SUMMARY | 2025-01-26 12:43 | XMS_ITS | Encounter Summary ---
Author Organization [employer] Address 75 [facility] 7t [place] [address] Care Team Providers Care Cyber Incident Responder Name Role Phone Ayaka Salgado MD Primary Care Provider [phone] Encounter Details Date Type Department Care Team ([facility] st Contact Info) Description 09/22/[address] [facility] CHC MED & PEDS [address] [place] [address] Ayaka Salgado MD 505 [place], [place] [phone] Simple chronic bronchitis (CMS/HCC) (Primary Dx) Social [...] [facility] MED & PEDS [address] [place] [address] Alana Hook, RACHELLE 505 [place] [address] 02/22/2025 1:45 PM EDT Office Visit [facility] MED & PEDS [address] [place] [address] Ayaka Salgado MD 505 [place] [address] documented as of this encounter Visit Diagnoses Diagnosis Simple chronic bronchitis (CMS/HCC)- Primary Simple chronic bronchitis documented in this encounter Additional Health Concerns Assessment Noted Time PHQ-9 Depression Total Score: 7 08/29/20 22 10:26 AM EST documented as of this encounter Care Teams Cyber Incident Responder Relationship Specialty Start Date End Date Ayaka Salgado MD 505 [place] [address] PCP - General Internal Medicine 09/15/18 documented as of this encounter
--- OUTSIDE RECORDS SUMMARY | 2025-01-26 12:43 | XMS_ITS | Encounter Summary ---
Author Organization [employer] Address [address] [place] [address] 7 [place] [address] Care Team Providers Care Wet Process Miller Head Assistant Name Role Phone Ayaka Salgado MD Primary Care Provider [phone] Reason for Visit * Reason Onset Date Comments Med Refill 08/05/2024 Encounter Details Date Type Department Care Team ([facility] st Contact Info) Description 08/05/2024 Refill [facility] CHC MED & PEDS [address] [place] [address] Ayaka Salgado MD 505 [place] [address] Back pain, unspecified back location, unspecified back [...] 5-325 MG tablet To be sent to: [id number] - [place] - [address] [facility] [place] documented in this encounter Plan of Treatment Upcoming Encounters Date Type Department Care Team (Late st Contact Info) Description 02/01/2025 9:00 AM EDT Clinical Support [facility] & PEDS [address] [place] [address] Alana Hook RN 505 [place] [address] 02/22/2025 1:45 PM EDT Office Visit [facility]ED[facility] [address] [place] [address] Ayaka Salgado MD 505 [place] [address] documented as of this encounter Visit Diagnoses Diagnosis Back pain, unspecified back location, unspecified back pain laterality, unspecified chronicity- Primary documented in this encounter Additional Health Concerns Assessment Noted Time PHQ-9 Depression Total Score: 7 08/29/20 22 10:26 AM EST documented as of this encounter Care Teams Wet Process Miller Head Assistant Relationship Specialty Start Date End Date Ayaka Salgado MD 505 [place] [address] PCP - General Internal Medicine 09/15/18 documented as of this encounter
--- OUTSIDE RECORDS SUMMARY | 2025-01-26 12:43 | XMS_ITS ---
Author Organization [facility] Address [address] [place] [address] Care Team Providers Care Space And Missile Operations Spacelift Name Role Phone Ayaka Salgado Primary Care Provider Transplant Episode Kidney Candidate [facility] ([place], [place]) - [facility] Evaluation began on 07/29/2024 Marked as Active on 07/29/2024 Kidney CoordinatorShima Springer RN Email: N/A Scores Score Value Updated Exceptions/Reas ons CPRA Not available EPTS (Calc) 44 01/26/2025 [place] Organ Diagnosis Organ Primary Contributory Kidney Diabetes Mellitus - Type II Care Team Name Role Phone Fax Email Shima Springer RN Kidney Coordinator [phone] N/A Ross Baldwin Referring Physician [phone] N/A Events Pre-Transplant Referred: 07/19/2024 Evaluation began: 07/29/2024
--- OUTSIDE RECORDS SUMMARY | 2025-01-26 12:43 | XMS_ITS | Encounter Summary ---
Author Organization [employer] Address [address] [facility] 7 [place] [address] Care Team Providers Care Associate Account Manager Name Role Phone Ayaka Salgado MD Primary Care Provider [phone] Reason for Visit * Reason Onset Date Comments Med Refill 09/29/2024 Encounter Details Date Type Department Care Team (Late st Contact Info) Description 09/29/2024 Refill [facility] MEDICINE [address] [place] [address] Ayaka Salgado MD 505 [facility] [place] [phone] Arthropathy (Primary Dx) Social History Tobacco Use [...] 5-325 MG tablet To be sent to: [facility][id number] [place] - [facility] [place] [facility] documented in this encounter Plan of Treatment Upcoming Encounters Date Type Department Care Team ([facility] st Contact Info) Description 02/01/2025 9:00 AM EDT Clinical Support [facility] MED & PEDS [address] [place] [address] Alana Hook RN 505 [place] [address] 02/22/2025 1:45 PM EDT Office Visit [facility] MED & PEDS [address] [place] [address] Aayka Salgado MD 505 [place] [address] documented as of this encounter Visit Diagnoses Diagnosis Arthropathy- Primary Unspecified arthropathy, site unspecified documented in this encounter Additional Health Concerns Assessment Noted Time PHQ-9 Depression Total Score: 7 08/29/20 22 10:26 AM EST documented as of this encounter Care Teams Associate Account Manager Relationship Specialty Start Date End Date Ayaka Salgado MD 505 [place] [address] PCP - General Internal Medicine 09/15/18 documented as of this encounter
--- OUTSIDE RECORDS SUMMARY | 2025-01-26 12:43 | XMS_ITS | Clinical Summary ---
Author Organization [facility] Address [address] [place] [address] Phone Care Team Providers Care Xerox Machine Operator Name Role Phone Jayme Salgado MD Primary Care Provider [phone] Allergies Active Allergy Reactions Criticality Noted Date [...] to complete this topic Insurance [facility] Medicare [facility] Medicare Care Teams Xerox Machine Operator Relationship Specialty Start Date End Date Jayme Salgado MD [address] [place], [place] [address]D[place] PCP - General 09/25/20
--- OUTSIDE RECORDS SUMMARY | 2025-01-26 12:43 | XMS_ITS | Encounter Summary ---
Author Organization [employer] Address [address] [place] [address] 7 [place] [address] Care Team Providers Care Conduit Worker Name Role Phone Ayaka Salgado MD Primary Care Provider [phone] Reason for Visit * Reason Comments Med Refill Encounter Details Date Type Department Care Team ([facility] st Contact Info) Description 02/24/2023 Refill [facility] CHC MED & PEDS [address] [place] [address] Ayaka Salgado MD 505 [place] [address] Social History Tobacco Use Types Packs/Day Years [...] [facility] [address] [place] [address] Alana Hook, RACHELLE 505 [place] [address] 02/22/2025 1:45 PM EDT Office Visit [facility] MED & PEDS [address] [place] [address] Ayaka Salgado MD 505 [place] [address] documented as of this encounter Visit Diagnoses Not on filedocumented in this encounter Additional Health Concerns Assessment Noted Time PHQ-9 Depression Total Score: 7 08/29/20 22 10:26 AM EST documented as of this encounter Care Teams Conduit Worker Relationship Specialty Start Date End Date Ayaka Salgado MD 505 [place] [address] PCP - General Internal Medicine 09/15/18 documented as of this encounter
--- OUTSIDE RECORDS SUMMARY | 2025-01-26 12:43 | XMS_ITS | Referral Summary ---
Author Organization [facility] Address [address] [place] [address] Care Team Providers Care Management Trainer Name Role Phone Ayaka Salgado Primary Care Provider Encounters Date Type Department Care Team Description 11/24/2024 Orders Only [facility] Transplant Department [address] [place], [place] [phone] Shima Springer RN Pre-transplant evaluation for end stage renal disease (Primary Dx); Chronic kidney disease, stage V 11/23/2024 Telephone [facility] Transplant Department [address] [place], [place] [phone] Shima Springer, public opinion survey taker - Kidney Txp from Last 3 Months [...] Info) Description 08/02/2025 8:20 AM EST Follow-Up [facility] Renal Transplant [address] [place] [address] Joey Duarte MD 55 [place] [address] 08/02/2025 9:00 AM EST Social Work [facility] Renal Transplant [address] [place] [address] Susan Babb LICSW [address] [place] [address] Procedures * Due to [place] state law, this organization might not be [...] Health Maintenance Results * Due to [place] state law, this organization might not be [...] 0.0 /100 WBCs 07/29/2024 1:35 PM EST [facility] nRBC # <0.01 <0.01 10*3/uL 07/29/2024 1:35 PM EST [facility] [facility] Blood Structure of peripheral vein / Unknown Venipuncture / Unknown 07/29/2024 12:57 PM EST 07/29/2024 1:29 PM EST Joey Duarte MD LAB BLOOD ORDERABLES María l Result [facility] [address] [place] [address], * Hepatitis C Antibody w/Reflex to PCR (07/29/2024 12:57 PM EST) Hepatitis C Antibody NON-REACT [place]AN[place] NON-REACT STANFORD 07/30/2024 3:[address] [facility] Comment: HCV antibody was non-reactive. There is no laboratory evidence of HCV infection. In most cases, no further action is required. However, if recent HCV exposure is suspected, a test for HCV RNA (test code 06087) is suggested. For additional information please refer to http://education.EnergySavvy.com/faq/YFK23v7 (This link is being provided for informational/ educational purposes only.) Blood Structure of peripheral vein / Unknown Venipuncture / Unknown 07/29/2024 12:57 PM EST 07/29/2024 1:32 PM EST Narrative [facility] 07/30/2024 3:03 AM EST [facility] Received Date: Joey Duarte MD LAB BLOOD ORDERABLES María l Result [facility] [address] [facility] 3rd Floor, [place] [address], [place] [phone] [employer] [facility] [address] [facility] 3rd Floor, [place] [address], [place] [phone] * Phosphorus (07/29/2024 12:57 PM EST) Phosphorus 4.5 2.5 - 4.5 mg/dL 07/29/2024 2:00 PM EST [facility] CL[facility]ICAL PATH[facility] LABORATORY Blood Structure of peripheral vein / Unknown Venipuncture / Unknown 07/29/2024 12:57 PM EST 07/29/2024 1:29 PM EST Joey Duarte MD LAB BLOOD ORDERABLES María l Result [facility] [address] [place] [address], * (ABNORMAL) Hemoglobin A1c (07/29/2024 12:57 PM EST) Hemoglobin A1C 6.7(H) <5.7 % of total Hgb 07/30/2024 1:59 AM [facility] Comment: For someone without known diabetes, a [...] (MG/DL) 146 mg/dL 07/30/2024 1:59 AM EST [facility] [facility] (MMOL/L) 8.1 mmol/L 07/30/2024 1:59 AM [facility] Blood Structure of peripheral vein / Unknown Venipuncture / Unknown 07/29/2024 12:57 PM EST 07/29/2024 1:32 PM EST Narrative [facility] - 07/30/2024 1:59 AM EST [facility] Received Date: Joey Duarte MD LAB BLOOD ORDERABLES María l Result [facility] [place] [address] Floor, [place] [address], [place] [phone] [employer] [facility] [address] Floor, [address] [place] [address], [place] [phone] from Last 3 Months or Most Recently Relevant to Health Maintenance Insurance [facility] Advance Directives Documents on File Type Date Recorded Patient Cougar Hunter Expl anation Health Care Proxy 08/05/2024 4:14 PM 11- Care Teams Management Trainer Relationship Specialty Start Date End Date Ayaka Salgado 505 [place] [address] PCP - General Internal Medicine 07/29/24
--- OUTSIDE RECORDS SUMMARY | 2025-01-26 12:43 | XMS_ITS | Encounter Summary ---
Author Organization [facility] [address] [facility] 200 [place] [address] Phone Care Team Providers Care Pediatrician Name Role Phone Jayme Salgado MD Primary Care Provider [phone] Reason for Visit * Reason Comments Med Refill Encounter Details Date Type Department Care Team (Late st Contact Info) Description 04/28/2023 Refill [facility] [address] [place] [facility] [place] [id number] Mumtaz Childress MD [address] [facility] [address] [place] [address] Type 2 diabetes mellitus with [...] (HCC) documented in this encounter Care Teams Pediatrician Relationship Specialty Start Date End Date Jayme Salgado MD [address] [place] [address] PCP - General 09/25/20 documented as of this encounter
--- OUTSIDE RECORDS SUMMARY | 2025-01-26 12:43 | XMS_ITS | Encounter Summary ---
Author Organization [employer] Address [address] 7t [place] [address] Care Team Providers Care Virtual Recruiter Name Role Phone Ayaka Salgado MD Primary Care Provider [phone] Encounter Details Date Type Department Care Team ([facility] st Contact Info) Description 06/25/2024 Orders Only [facility] CHC MED & PEDS [address] [place] [address] ProviderRan MD Social History Tobacco Use Types [...] [facility] [address] [place] [address] Alana Hook RN 505 [place] [address] 02/22/2025 1:45 PM EDT Office Visit [facility] MED & PEDS 505 [place] [address] Ayaka Salgado MD 505 [place] [address] documented as of this encounter Procedures Procedure [...] documented as of this encounter Care Teams Virtual Recruiter Relationship Specialty Start Date End Date Ayaka Salgado MD 505 [place] [address] PCP - General Internal Medicine 09/15/18 documented as of this encounter
--- OUTSIDE RECORDS SUMMARY | 2025-01-26 12:43 | XMS_ITS | Encounter Summary ---
Author Organization [employer] Address [address] [facility] 7 [place] [address] Care Team Providers Care Personal Lines Account Manager Name Role Phone Ayaka Salgado MD Primary Care Provider [phone] Reason for Visit * Reason Onset Date Comments Med Refill 08/09/2024 Encounter Details Date Type Department Care Team ([facility] st Contact Info) Description 08/09/2024 Telephone [facility] [address] [place], [place] [phone] Ayaka Salgado MD 505 [facility] [place] [address] Med Refill Social History Tobacco Use Types [...] 5-325 MG tablet To be sent to: [facility][id number] documented in this encounter Plan of Treatment Upcoming Encounters Date Type Department Care Team ([facility] st Contact Info) Description 02/01/2025 9:00 AM EDT Clinical Support [facility] MED & PEDS 505 [place] [address] Alana Hook RN 505 [place] [address] 02/22/2025 1:45 PM EDT Office Visit [facility] MED & PEDS [address] [place] [address] Ayaka Salgado MD 505 [place] [address] documented as of this encounter Visit Diagnoses Not on filedocumented in this encounter Additional Health Concerns Assessment Noted Time PHQ-9 Depression Total Score: 7 08/29/20 22 10:26 AM EST documented as of this encounter Care Teams Personal Lines Account Manager Relationship Specialty Start Date End Date Ayaka Salgado MD [address] [place] [address] PCP - General Internal Medicine 09/15/18 documented as of this encounter
--- OUTSIDE RECORDS SUMMARY | 2025-01-26 12:43 | XMS_ITS | Encounter Summary ---
Author Organization [employer] Address [address] [facility] 7t [place] [address] Care Team Providers Care Automobile Mechanic Supervisor Name Role Phone Ayaka Salgado MD Primary Care Provider [phone] Encounter Details Date Type Department Care Team ([facility] st Contact Info) Description 08/18/2024 Telephone [facility] MEDICINE [address] [place] [address] Ayaka Salgado MD [address] [place] [phone] Social History Tobacco Use Types Packs/Day Years [...] [facility] MED & PED[facility] 505 [place] [address] Alana Hook, RACHELLE 505 [place] [address] 02/22/2025 1:45 PM EDT Office Visit [facility] MED & PEDS 505 [place] [address] Ayaka Salgado MD 505 [place] [address] documented as of this encounter Visit Diagnoses Not on filedocumented in this encounter Additional Health Concerns Assessment Noted Time PHQ-9 Depression Total Score: 7 08/29/20 22 10:26 AM EST documented as of this encounter Care Teams Automobile Mechanic Supervisor Relationship Specialty Start Date End Date Ayaka Salgado MD 505 [place] [address] PCP - General Internal Medicine 09/15/18 documented as of this encounter
--- OUTSIDE RECORDS SUMMARY | 2025-01-26 12:43 | XMS_ITS | Clinical Summary ---
Author Organization [facility] Address [address] [place] [address] Care Team Providers Care Stogy Roller Name Role Phone DamianReidteriren Morel Primary Care [...] Orders Only [facility] Transplant Department [address] [place] [address] Shima Springer RN Pre-transplant evaluation for end stage renal disease (Primary Dx); Chronic kidney disease, stage V 11/23/2024 Telephone [facility] Transplant Department [address] [place] [phone] Shima Springer fruit sprayer - Kidney Txp from Last 3 Months [...] Follow-Up [facility] Renal Transplant [address] [place] [address] Joey Duarte MD 55 [place] [address] 08/02/2025 9:00 AM EST Social Work [facility] Renal Transplant [address] [place] [address] Susan Babb LICSW [address] [place] [address] Health Maintenance Due Date Last Done Comments [...] complete this topic Procedures * Due to [place] state law, this organization might not be [...] to Health Maintenance Results * Due to [place] state law, this organization might not be [...] EST Joey Duarte MD LAB BLOOD ORDERABLES Maíra l Result [facility] CLINICAL PATHOLOG[facility] LABORATORY [address] [place] [address], * Hepatitis C Antibody w/Reflex to PCR (07/29/2024 12:57 PM EST) Hepatitis C Antibody NON-REACT [place]AN[place] NON-REACT STANFORD 07/30/2024 3:03 AM EST [employer] [facility] Comment: HCV antibody was non-reactive. There is no laboratory evidence of HCV infection. In most cases, no further action is required. However, if recent HCV exposure is suspected, a test for HCV RNA (test code 13072) is suggested. For additional information please refer to http://education.SellABand/faq/ATV67p2 (This link is being provided for informational/ educational purposes only.) Blood Structure of peripheral vein / Unknown Venipuncture / Unknown 07/29/2024 12:57 PM EST 07/29/2024 1:32 PM EST Narrative [facility] - 07/30/2024 3:03 AM EST [facility] Received Date: Joey Duarte MD LAB BLOOD ORDERABLES María l Result Performing Organization Address City/[facility]/ZIP Co de Phone Number [facility] [address] [facility] 3rd Floor, [place] [address], [place] [phone] [employer] [facility] [address] [facility] 3rd Floor, [place] [address], [place] [phone] * Phosphorus (07/29/2024 12:57 PM EST) Phosphorus 4.5 2.5 - 4.5 mg/dL 07/29/2024 2:00 PM EST [facility] Blood Structure of peripheral vein / Unknown Venipuncture / Unknown 07/29/2024 12:57 PM EST 07/29/2024 1:29 PM EST Joey Duarte MD LAB BLOOD ORDERABLES María l Result [facility] [employer] LABORATORY [address] [place] [address], [place] * (ABNORMAL) Hemoglobin A1c (07/29/2024 12:57 PM EST) Hemoglobin A1C 6.7(H) <5.7 % of total Hgb 07/30/2024 1:59 AM EST [facility] Comment: For someone without known diabetes, a [...] (MG/DL) 146 mg/dL 07/30/2024 1:59 AM EST [facility] (MMOL/L) 8.1 mmol/L 07/30/2024 1:59 AM EST [facility] Blood Structure of peripheral vein / Unknown Venipuncture / Unknown 07/29/2024 12:57 PM EST 07/29/2024 1:32 PM EST Narrative [facility] - 07/30/2024 1:59 AM EST [facility] Received Date: Joey Duarte MD LAB BLOOD ORDERABLES María l Result [facility] [place] [address] [facility] 3rd Floor, [place] [address], [place] [phone] [facility] [employer] [address] [facility] 3rd Floor, [place] [address], [place] [phone] from Last 3 Months or Most Recently Relevant to Health Maintenance Insurance [facility] [place] [id number] [facility] REPLACE AARP [facility] REPLACE AARP Advance Directives Documents on File Type Date Recorded Patient Pipe Buffer Expl anation Health Care Proxy 08/05/2024 4:14 PM 07-16 Care Teams Stogy Roller Relationship Specialty Start Date End Date Ayaka Salgado [address] [place] [address] [place] [address] PCP - General Internal Medicine 07/29/24
--- OUTSIDE RECORDS SUMMARY | 2025-01-26 12:43 | XMS_ITS | Encounter Summary ---
Author Organization [employer] Address [address] [facility] 7 [place] [address] Care Team Providers Care Political Science Instructor Name Role Phone Ayaka Salgado MD Primary Care Provider [phone] Reason for Visit * Reason Onset Date Comments Med Refill 09/06/2024 Encounter Details Date Type Department Care Team ([facility] st Contact Info) Description 09/06/2024 Telephone [facility] MEDICINE 230 [place], [place] [phone] Ayaka Salgado MD 505 [facility] [place] [address] Med Refill Social History Tobacco Use Types [...] 8:56 AM EST Medication was sent to [facility] #[id number] on 08/09/24 with 3 refills. * Telephone Encounter - Cleopatra Ortiz - 09/06/2024 8:53 AM EST TC from pt requesting medication refill. Medications needing refill : labetalol (Normodyne) 200 MG tablet To be sent to: [facility] #[id number] - [place] - [address] [facility] [place] documented in this encounter Plan of Treatment Upcoming Encounters Date Type Department Care Team ([facility] st Contact Info) Description 02/01/2025 9:00 AM EDT Clinical Support [facility] MED & PEDS 505 [facility] [place] [address] Alana Hook, RN 505 [facility] [place] [address] 02/22/2025 1:45 PM EDT Office Visit [facility] CHC MED & PEDS 505 [place] [address] Ayaka Saglado MD 505 [place] [address] documented as of this encounter Visit Diagnoses Not on filedocumented in this encounter Additional Health Concerns Assessment Noted Time PHQ-9 Depression Total Score: 7 08/29/20 22 10:26 AM EST documented as of this encounter Care Teams Political Science Instructor Relationship Specialty Start Date End Date Ayaka Salgado MD 505 [place] [address] PCP - General Internal Medicine 09/15/18 documented as of this encounter
--- OUTSIDE RECORDS SUMMARY | 2025-01-26 12:44 | XMS_ITS | Encounter Summary ---
Author Organization [employer] Address [address] [place] [address] 7 [place] [address] Care Team Providers Care Investigations Consultant Name Role Phone Ayaka Salgado MD Primary Care Provider [phone] Reason for Visit * Reason Comments Med Refill Encounter Details Date Type Department Care Team ([facility] st Contact Info) Description 01/06/2023 Refill [facility] CHC MED & PEDS 505 [place] [address] Ayaka Salgado MD 505 [place] [address] Primary osteoarthritis involving multiple joints Social History [...] [facility] MED & PEDS 505 [place] [address] Alana Hook RN 505 [place] [address] 02/22/2025 1:45 PM EDT Office Visit [facility] MED & PEDS [address] [place] [address] Ayaka Salgado MD 505 [place] [address] documented as of this encounter Visit Diagnoses Diagnosis Primary osteoarthritis involving multiple joints documented in this encounter Additional Health Concerns Assessment Noted Time PHQ-9 Depression Total Score: 7 08/29/20 22 10:26 AM EST documented as of this encounter Care Teams Investigations Consultant Relationship Specialty Start Date End Date Ayaka Salgado MD 505 [place] [address] PCP - General Internal Medicine 09/15/18 documented as of this encounter
--- OUTSIDE RECORDS SUMMARY | 2025-01-26 12:44 | XMS_ITS | Encounter Summary ---
Author Organization [employer] Address 75 [facility] 7 [place] [address] Care Team Providers Care Center Customer Service Associate Name Role Phone Ayaka Salgado MD Primary Care Provider [phone] Reason for Visit * Reason Onset Date Comments Med Refill 07/31/2023 Encounter Details Date Type Department Care Team ([facility] st Contact Info) Description 07/31/2023 Telephone [facility] MEDICINE 230 [place] [address] Ayaka Salgado MD 505 [facility] [place] [address] Med Refill Social History Tobacco Use Types [...] [facility] 505 [place] [address] Alana Hook, RACHELLE 505 [place] [address] 02/22/2025 1:45 PM EDT [facility] Visit [facility] 505 [place] [address] Ayaka Salgado MD 505 [place] [address] documented as of this encounter Visit Diagnoses Not on filedocumented in this encounter Additional Health Concerns Assessment Noted Time PHQ-9 Depression Total Score: 7 08/29/20 10:26 AM EST documented as of this encounter Care Teams Center Customer Service Associate Relationship Specialty Start Date End Date Ayaka Salgado MD [address] [place] [address] PCP - General Internal Medicine 09/15/18 documented as of this encounter
--- OUTSIDE RECORDS SUMMARY | 2025-01-26 12:44 | XMS_ITS | Encounter Summary ---
Author Organization [employer] Address [address] [place] [address] 7 [place] [address] Care Team Providers Care Sebd Teacher Name Role Phone Ayaka Salgado MD Primary Care Provider [phone] Encounter Details Date Type Department Care Team (Late st Contact Info) Description 01/23/2023 Abstract [facility] 230 [place] [address] Ayaka Salgado MD 505 [place], [place] [phone] Social History Tobacco Use Types Packs/Day Years [...] EDT Clinical Support [facility] MED & PEDS 505 [place] [address] Alana Hook RN 505 [place] [address] 02/22/2025 1:45 PM EDT Office Visit [facility]ED[facility] 505 [place] [address] Ayaka Salgado MD 505 [place] [address] documented as of this encounter Visit Diagnoses Not on filedocumented in this encounter Additional Health Concerns Assessment Noted Time PHQ-9 Depression Total Score: 7 08/29/20 22 10:26 AM EST documented as of this encounter Care Teams Sebd Teacher Relationship Specialty Start Date End Date Ayaka Salgado MD 505 [place] [address] PCP - General Internal Medicine 09/15/18 documented as of this encounter
--- OUTSIDE RECORDS SUMMARY | 2025-01-26 12:44 | XMS_ITS | Encounter Summary ---
Author Organization [employer] Address 75 [facility] [address], [place] [address] Care Team Providers Care Epic Analyst Name Role Phone Ayaka Salgado MD Primary Care Provider [phone] Reason for Visit * Reason Onset Date Comments Med Refill 01/19/2025 Encounter Details Date Type Department Care Team ([facility] st Contact Info) Description 01/19/2025 Telephone [facility] MEDICINE 230 [place], [place] [phone] Ayaka Salgado MD 505 [facility] [place] [address] Med Refill Social History Tobacco Use Types [...] the past 12 months, has t he [employer], gas, oil or water company threatened to [...] 5-325 MG tablet To be sent to: [id number] [place] - [facility] documented in this encounter Plan of Treatment Upcoming Encounters Date Type Department Care Team ([facility] st Contact Info) Description 02/01/2025 9:00 AM EDT Clinical Support [facility] MED & PEDS 505 [facility] [place] [address] Alana Hook, RACHELLE 505 [facility] [place] [address] 02/22/2025 1:45 PM EDT Office Visit [facility]ED[facility] 505 [place] [address] Ayaka Salgado MD 505 [place] [address] documented as of this encounter Visit Diagnoses Not on filedocumented in this encounter Additional Health Concerns Assessment Noted Time PHQ-9 Depression Total Score: 12 025 11:13 AM EDT documented as of this encounter Care Teams Epic Analyst Relationship Specialty Start Date End Date Ayaka Salgado MD 505 [place] [address] PCP - General Internal Medicine 09/15/18 documented as of this encounter
--- OUTSIDE RECORDS SUMMARY | 2025-01-26 12:44 | XMS_ITS | Encounter Summary ---
Author Organization [employer] Address 75 [facility] 7t [place] [address] Care Team Providers Care Nurse Name Role Phone Ayaka Salgado MD Primary Care Provider [phone] Encounter Details Date Type Department Care Team ([facility] st Contact Info) Description 04/29/2024 Telephone [facility] MEDICINE 230 [place] [address] Ayaka Salgado MD [address] [place] [phone] Social History Tobacco Use Types Packs/Day Years [...] 10 MG tablet To be sent to: [facility][id number] - [place], [place] - [address] [facility] [place] documented in this encounter Plan of Treatment Upcoming Encounters Date Type Department Care Team ([facility] st Contact Info) Description 02/01/2025 9:00 AM EDT Clinical Support [facility] MED & PEDS 505 [place] [address] Alana Hook RN 505 [place] [address] 02/22/2025 1:45 PM EDT Office Visit [facility] 505 [place] [address] Ayaka Salgado MD 505 [place] [address] documented as of this encounter Visit Diagnoses Not on filedocumented in this encounter Additional Health Concerns Assessment Noted Time PHQ-9 Depression Total Score: 7 08/29/20 22 10:26 AM EST documented as of this encounter Care Teams Nurse Relationship Specialty Start Date End Date Ayaka Salgado MD [address] [place] [address] PCP - General Internal Medicine 09/15/18 documented as of this encounter
--- OUTSIDE RECORDS SUMMARY | 2025-01-26 12:44 | XMS_ITS | Encounter Summary ---
Author Organization [employer] Address [address] [place] [address] 7 [place] [address] Care Team Providers Care Assistant Elementary Teacher Name Role Phone Ayaka Salgado MD Primary Care Provider [phone] Encounter Details Date Type Department Care Team (Late st Contact Info) Description 02/19/2023 Abstract [facility] 230 [place] [address] Ayaka Salgado MD 505 [place], [place] [phone] Social History Tobacco Use Types Packs/Day Years [...] [facility] MED [facility]ED[facility] 505 [place] [address] Alana Hook RN 505 [place] [address] 02/22/2025 1:45 PM EDT Office Visit [facility] MED [facility]EDS 505 [place] [address] Ayaka Salgado MD 505 [place] [address] documented as of this encounter Visit Diagnoses Not on filedocumented in this encounter Additional Health Concerns Assessment Noted Time PHQ-9 Depression Total Score: 7 08/29/20 22 10:26 AM EST documented as of this encounter Care Teams Assistant Elementary Teacher Relationship Specialty Start Date End Date Ayaka Salgado MD 505 [place] [address] PCP - General Internal Medicine 09/15/18 documented as of this encounter
--- OUTSIDE RECORDS SUMMARY | 2025-01-26 12:44 | XMS_ITS | Encounter Summary ---
Author Organization [employer] Address 75 [facility] 7t [place] [address] Care Team Providers Care Surg Tech Name Role Phone Ayaka Salgado MD Primary Care Provider [phone] Encounter Details Date Type Department Care Team ([facility] st Contact Info) Description 05/26/2024 Orders Only [facility] MED & PEDS 505 [place] [address] Ayaka Salgado MD 505 [place], [place] [phone] Simple chronic bronchitis (CMS/HCC) (Primary Dx) Social [...] [facility] MED & PEDS 505 [place] [address] Alana Hook, RACHELLE 505 [place] [address] 02/22/2025 1:45 PM EDT Office Visit [facility] MED & PEDS 505 [place] [address] Ayaka Salgado MD 505 [place] [address] documented as of this encounter Visit Diagnoses Diagnosis Simple chronic bronchitis (CMS/HCC)- Primary Simple chronic bronchitis documented in this encounter Additional Health Concerns Assessment Noted Time PHQ-9 Depression Total Score: 7 08/29/20 22 10:26 AM EST documented as of this encounter Care Teams Surg Tech Relationship Specialty Start Date End Date Ayaka Salgado MD 505 [place] [address] PCP - General Internal Medicine 09/15/18 documented as of this encounter
--- OUTSIDE RECORDS SUMMARY | 2025-01-26 12:44 | XMS_ITS | Encounter Summary ---
Author Organization [employer] Address 75 [facility] 7 [place] [address] Care Team Providers Care Health Program Director Name Role Phone Ayaka Salgado MD Primary Care Provider [phone] Reason for Visit * Reason Onset Date Comments Med Refill 05/11/2024 Encounter Details Date Type Department Care Team ([facility] st Contact Info) Description 05/11/2024 Telephone [facility] MEDICINE 230 [place], [place] [phone] Ayaka Salgado MD 505 [facility] [place] [address] Med Refill Social History Tobacco Use Types [...] ([facility] st Contact Info) Description 02/01/2025 9:00 AM EDT Clinical Support [facility] MED [facility]EDS 505 [place] [address] Alana Hook RN 505 [place] [address] 02/22/2025 1:45 PM EDT Office Visit [facility] MED [facility] PEDS 505 [place] [address] Ayaka Salgado MD 505 [place] [address] documented as of this encounter Visit Diagnoses Not on filedocumented in this encounter Additional Health Concerns Assessment Noted Time PHQ-9 Depression Total Score: 7 12/15/20 22 10:26 AM EST documented as of this encounter Care Teams Health Program Director Relationship Specialty Start Date End Date Ayaka Salgado MD [address] [place] [address] PCP - General Internal Medicine 09/15/18 documented as of this encounter
--- OUTSIDE RECORDS SUMMARY | 2025-01-26 12:44 | XMS_ITS | Encounter Summary ---
Author Organization [employer] Address 75 [facility] 7t [place] [address] Care Team Providers Care Railroad Brake Repairer Name Role Phone Ayaka Salgado MD Primary Care Provider [phone] Encounter Details Date Type Department Care Team (Late st Contact Info) Description 10/11/[address] [facility] MEDICINE 230 [place] [address] Ayaka Salgado MD [address] [facility] [place] [address] Congestive heart failure, unspecified HF chronicity, unspecified [...] Upcoming Encounters Date Type Department Care Team ([facility] st Contact Info) Description 02/01/2025 9:00 AM EDT Clinical Support [facility] MED & PEDS 505 [place] [address] Alana Hook RN 505 [place] [address] 02/22/2025 1:45 PM EDT Office Visit [facility] MED & PEDS 505 [place] [address] Ayaka Salgado MD 505 [place] [address] documented as of this encounter Visit Diagnoses Diagnosis Congestive heart failure, unspecified HF chronicity, unspecified heart failure type (CMS/HCC) Edema of foot Edema documented in this encounter Additional Health Concerns Assessment Noted Time PHQ-9 Depression Total Score: 7 08/29/20 22 10:26 AM EST documented as of this encounter Care Teams Railroad Brake Repairer Relationship Specialty Start Date End Date Ayaka Salgado MD 505 [place] [address] PCP - General Internal Medicine 09/15/18 documented as of this encounter
--- OUTSIDE RECORDS SUMMARY | 2025-01-26 12:44 | XMS_ITS | Encounter Summary ---
Author Organization [employer] Address 75 [facility] 7t [place] [address] Care Team Providers Care Proposal Writer Name Role Phone Ayaka Salgado MD Primary Care Provider [phone] Reason for Visit * Reason Comments Med Refill Encounter Details Date Type Department Care Team (Late st Contact Info) Description 03/02/2024 Refill [facility] MEDICINE 230 [place] [address] Ayaka Salgado MD 505 [facility] [place] [address] Primary osteoarthritis involving multiple joints Social History [...] [facility] 505 [place] [address] Alana Hook, RACHELLE 505 [place] [address] 02/22/2025 1:45 PM EDT Office Visit [facility] & PEDS 505 [place] [address] Ayaka Salgado MD 505 [place] [address] documented as of this encounter Visit Diagnoses Diagnosis Primary osteoarthritis involving multiple joints documented in this encounter Additional Health Concerns Assessment Noted Time PHQ-9 Depression Total Score: 7 08/29/20 22 10:26 AM EST documented as of this encounter Care Teams Proposal Writer Relationship Specialty Start Date End Date Ayaka Salgado MD 505 [place] [address] PCP - General Internal Medicine 09/15/18 documented as of this encounter
--- OUTSIDE RECORDS SUMMARY | 2025-01-26 12:44 | XMS_ITS | Encounter Summary ---
Author Organization [employer] Address 75 [facility] 7 [place] [address] Care Team Providers Care Knife Setter Name Role Phone yAaka Salgado MD Primary Care Provider [phone] Reason for Visit * Reason Comments Med Refill Encounter Details Date Type Department Care Team (Late st Contact Info) Description 01/22/2025 Refill [facility] MEDICINE 230 [place] [address] Ayaka Salgado MD 505 [facility] [place] [id number] Primary insomnia Social History Tobacco Use Types [...] White LPN - 01/24/2025 1:21 PM EDT SET DESIGNER checked on 01/24/25. Last seen 11/22/24. documented in this encounter Plan of Treatment Upcoming Encounters Date Type Department Care Team (Late st Contact Info) Description 02/01/2025 9:00 AM EDT Clinical Support [facility] MED & PEDS 505 [place] [address] Alana Hook RN 505 [place] [address] 02/22/2025 1:45 PM EDT Office Visit [facility] MED & PEDS 505 [place] [address] Ayaka Salgado MD 505 [place] [address] documented as of this encounter Visit Diagnoses Diagnosis Primary insomnia Persistent disorder of initiating or maintaining sleep documented in this encounter Additional Health Concerns Assessment Noted Time PHQ-9 Depression Total Score: 12 025 11:13 AM EDT documented as of this encounter Care Teams Knife Setter Relationship Specialty Start Date End Date Ayaka Salgado MD [address] [place] [address] PCP - General Internal Medicine 09/15/18 documented as of this encounter
--- OUTSIDE RECORDS SUMMARY | 2025-01-26 12:44 | XMS_ITS | Encounter Summary ---
Author Organization [employer] Address 75 [facility] 7[place], [place] [address] Care Team Providers Care Ventilation Worker Name Role Phone Ayaka Salgado MD Primary Care Provider [phone] Reason for Visit * Reason Onset Date Comments Med Refill 01/19/2025 Encounter Details Date Type Department Care Team ([facility] st Contact Info) Description 01/19/2025 Telephone [facility] MEDICINE 230 [place], [place] [phone] Ayaka Salgado MD 505 [facility] [place] [address] Med Refill Social History Tobacco Use Types [...] the past 12 months, has t he [employer], gas, oil or water company threatened to [...] refills and Ambien to soon for refill SYNTHETIC CLOTH BINDING CUTTER checked on 01/19/25 last filled on 12/26/24 #30. * Telephone Encounter - Cleopatra Ortiz - 01/19/2025 8:14 AM EDT TC from pt requesting medication refill. Medications needing refill : melatonin 5 MG tablet zolpidem (Ambien) 10 MG tablet To be sent to: [id number] - [place] - [address] [facility] [place] documented in this encounter Plan of Treatment Upcoming Encounters Date Type Department Care Team ([facility] st Contact Info) Description 02/01/2025 9:00 AM EDT Clinical Support [facility] MED & PEDS 505 [place] [address] Alana Hook, RACHELLE 505 [place] [address] 02/22/2025 1:45 PM EDT Office Visit [facility] & PEDS 505 [place] [address] Ayaka Salgado MD 505 [place] [address] documented as of this encounter Visit Diagnoses Not on filedocumented in this encounter Additional Health Concerns Assessment Noted Time PHQ-9 Depression Total Score: 12 025 11:13 AM EDT documented as of this encounter Care Teams Ventilation Worker Relationship Specialty Start Date End Date Aykaa Salgado MD 505 [place] [address] PCP - General Internal Medicine 09/15/18 documented as of this encounter
--- OUTSIDE RECORDS SUMMARY | 2025-01-26 12:44 | XMS_ITS | Encounter Summary ---
Author Organization [employer] Address [address] [place] [address] [place], [place] [address] Care Team Providers Care Tank Builder And Erector Name Role Phone Ayaka Salgado MD Primary Care Provider [phone] Reason for Visit * Reason Onset Date Comments Med Refill 12/12/2022 Encounter Details Date Type Department Care Team ([facility] st Contact Info) Description 12/12/2022 Telephone [facility] MED & PEDS 505 [place] [address] Ayaka Salgado MD 505 [place] [address] Med Refill Social History Tobacco Use Types [...] (Norvasc) 5 MG tablet Please sent to [facility][id number] - [place], [place] - [address] [facility] documented in this encounter Plan of Treatment Upcoming Encounters Date Type Department Care Team ([facility] st Contact Info) Description 02/01/2025 9:00 AM EDT Clinical Support [facility] MED & PEDS 505 [place] [address] Alana Hook, RACHELLE 505 [place] [address] 02/22/2025 1:45 PM EDT Office Visit [facility] MED & PEDS 505 [place] [address] Ayaka Salgado MD 505 [place] [address] documented as of this encounter Visit Diagnoses Not on filedocumented in this encounter Additional Health Concerns Assessment Noted Time PHQ-9 Depression Total Score: 7 08/29/20 22 10:26 AM EST documented as of this encounter Care Teams Tank Builder And Erector Relationship Specialty Start Date End Date Ayaka Salgado MD 505 [place] [address] PCP - General Internal Medicine 09/15/18 documented as of this encounter
--- OUTSIDE RECORDS SUMMARY | 2025-01-26 12:44 | XMS_ITS | Encounter Summary ---
Author Organization [employer] Address 75 [facility] 7 [place] [address] Care Team Providers Care It Teacher Name Role Phone Ayaka Salgado MD Primary Care Provider [phone] Reason for Visit * Reason Comments Med Refill Encounter Details Date Type Department Care Team (Late st Contact Info) Description 10/07/2022 Refill [facility] 230 [place] [address] Ayaka Salgado MD 505 [facility] [place] [address] Primary osteoarthritis involving multiple joints Social History [...] AM EDT Clinical Support [facility] MED & PEDS 505 [place] [address] Alana Hook RN 505 [place] [address] 02/22/2025 1:45 PM EDT Office Visit [facility] MED & PEDS 505 [place] [address] Ayaka Salgado MD 505 [place] [address] documented as of this encounter Visit Diagnoses Diagnosis Primary osteoarthritis involving multiple joints documented in this encounter Additional Health Concerns Assessment Noted Time PHQ-9 Depression Total Score: 7 08/29/20 22 10:26 AM EST documented as of this encounter Care Teams It Teacher Relationship Specialty Start Date End Date Ayaka Salgado MD 505 [place] [address] PCP - General Internal Medicine 09/15/18 documented as of this encounter
--- OUTSIDE RECORDS SUMMARY | 2025-01-26 12:44 | XMS_ITS | Encounter Summary ---
Author Organization [employer] Address 75 [facility] [place] [address] Care Team Providers Care Sheet Metal Worker Helper Name Role Phone Ayaka Salgado MD Primary Care Provider [phone] Reason for Visit * Reason Onset Date Comments r/s appt 08/23/2022 Encounter Details Date Type Department Care Team (Late st Contact Info) Description 08/23/2022 Telephone [facility] MEDICINE 230 [place] [address] Ayaka Salgado MD 505 [facility] [place] [address] r/s appt Social History Tobacco Use Types [...] appt has been canceled. Please contact at [phone] documented in this encounter Plan of Treatment Upcoming Encounters Date Type Department Care Team (Late Contact Info) Description 02/01/2025 9:00 AM EDT Clinical Support [facility] MED & PEDS 505 [place] [address] lAana Hook, RN 505 [place] [address] 02/22/2025 1:45 PM EDT Office Visit [facility] MED & PEDS 505 [place] [address] Ayaka Salgado MD 505 [place] [address] documented as of this encounter Visit Diagnoses Not on filedocumented in this encounter Care Teams Sheet Metal Worker Helper Relationship Specialty Start Date End Date Ayaka Salgado MD 505 [place] [address] PCP - General Internal Medicine 09/15/18 documented as of this encounter
--- OUTSIDE RECORDS SUMMARY | 2025-01-26 12:44 | XMS_ITS | Encounter Summary ---
Author Organization [employer] Address 75 [facility] 7 [place] [address] Care Team Providers Care Engineering Geologist Name Role Phone Ayaka Salgado MD Primary Care Provider [phone] Reason for Visit * Reason Onset Date Comments Med Refill 07/28/2023 Encounter Details Date Type Department Care Team ([facility] Contact Info) Description 07/28/2023 Telephone [facility] MED & PEDS 505 [place] [address] Ayaka Salgado MD 505 [place] [address] Med Refill Social History Tobacco Use Types [...] (Percocet) 5-325 MG tablet Please sent to [id number] - [place] - [address] [facility] [place] documented in this encounter Plan of Treatment Upcoming Encounters Date Type Department Care Team ([facility] st Contact Info) Description 02/01/2025 9:00 AM EDT Clinical Support [facility] MED & PEDS 505 [place] [address] Alana Hook RN 505 [place] [address] 02/22/2025 1:45 PM EDT Office Visit [facility] MED & PEDS 505 [place] [address] Ayaka Salgado MD 505 [place] [address] documented as of this encounter Visit Diagnoses Not on filedocumented in this encounter Additional Health Concerns Assessment Noted Time PHQ-9 Depression Total Score: 7 08/29/20 22 10:26 AM EST documented as of this encounter Care Teams Engineering Geologist Relationship Specialty Start Date End Date Ayaka Salgado MD [address] [place] [address] PCP - General Internal Medicine 09/15/18 documented as of this encounter
--- OUTSIDE RECORDS SUMMARY | 2025-01-26 12:44 | XMS_ITS | Encounter Summary ---
Author Organization [employer] Address [address] [facility] 7 [place] [address] Care Team Providers Care Aerophysicist Name Role Phone Ayaka Salgado MD Primary Care Provider [phone] Reason for Visit * Reason Onset Date Comments Med Refill 12/01/2023 Encounter Details Date Type Department Care Team ([facility] st Contact Info) Description 12/01/2023 Telephone [facility] [address] [place], [place] [id number] Ayaka Salgado MD 505 [facility] [place] [address] Med Refill Social History Tobacco Use Types [...] 10 MG tablet To be sent to: [id number] - [place] - [facility] [place] AT [facility] [place] documented in this encounter Plan of Treatment Upcoming Encounters Date Type Department Care Team ([facility] st Contact Info) Description 02/01/2025 9:00 AM EDT Clinical Support [facility] MED & PEDS [address] [place] [address] Alana Hook RN 505 [place] [address] 02/22/2025 1:45 PM EDT Office Visit [facility] [address] [place] [address] Ayaka Salgado MD 505 [place] [address] documented as of this encounter Visit Diagnoses Not on filedocumented in this encounter Additional Health Concerns Assessment Noted Time PHQ-9 Depression Total Score: 7 08/29/20 22 10:26 AM EST documented as of this encounter Care Teams Aerophysicist Relationship Specialty Start Date End Date Ayaka Salgado MD [address] [place] [address] PCP - General Internal Medicine 09/15/18 documented as of this encounter
--- OUTSIDE RECORDS SUMMARY | 2025-01-26 12:44 | XMS_ITS | Encounter Summary ---
Author Organization [employer] Address [address] [place] [address] Care Team Providers Care Publications Distribution Clerk Name Role Phone Ayaka Salgado MD Primary Care Provider [phone] Reason for Visit * Reason Onset Date Comments Letter Accomodation 12/12/2022 Encounter Details Date Type Department Care Team ([facility] st Contact Info) Description 12/12/2022 Telephone [facility] MED & PEDS [address] [place] [address] Ayaka Salgado MD 505 [place] [address] Letter Accomodation Social History Tobacco Use Types [...] hisPercocet. Advised message will be forwarded to [facility] [employer] nurse regarding his request. Pt verbalizes understanding. * Telephone Encounter - Abiel Mills - 12/12/2022 9:32 AM EDT Tc from pt requesting an Accomodation letter. Please contact pt at [phone] documented in this encounter Plan of Treatment Upcoming Encounters Date Type Department Care Team (Late st Contact Info) Description 02/01/2025 9:00 AM EDT Clinical Support [facility] MED & PEDS [address] [place] [address] Alana Hook, RN 505 [place] [address] 02/22/2025 1:45 PM EDT Office Visit [facility] MED & PEDS [address] [place] [address] Ayaka Salgado MD 505 [place] [address] documented as of this encounter Visit Diagnoses Diagnosis Congestive heart failure, unspecified HF chronicity, unspecified heart failure type (CMS/HCC) Primary osteoarthritis involving multiple joints documented in this encounter Additional Health Concerns Assessment Noted Time PHQ-9 Depression Total Score: 7 08/29/20 22 10:26 AM EST documented as of this encounter Care Teams Publications Distribution Clerk Relationship Specialty Start Date End Date Ayaka Salgado MD 505 [place] [address] PCP - General Internal Medicine 09/15/18 documented as of this encounter
--- OUTSIDE RECORDS SUMMARY | 2025-01-26 12:44 | XMS_ITS | Encounter Summary ---
Author Organization [employer] Address [address] [place] [address] 7 [place] [address] Care Team Providers Care Paraprofessional Interpreter Name Role Phone Ayaka Salgado MD Primary Care Provider [phone] Reason for Visit * Reason Comments Med Refill Encounter Details Date Type Department Care Team ([facility] st Contact Info) Description 07/28/2023 Refill [facility] MED & PEDS [address] [place] [address] Ayaka Salgado MD [address] [place] [address] Social History Tobacco Use Types Packs/Day Years [...] [facility] [address] [place] [address] Alana Hook, RACHELLE 505 [place] [address] 02/22/2025 1:45 PM EDT Office Visit [facility] & PEDS [address] [place] [address] Ayaka Salgado MD [address] [place] [address] documented as of this encounter Visit Diagnoses Not on filedocumented in this encounter Additional Health Concerns Assessment Noted Time PHQ-9 Depression Total Score: 7 08/29/20 22 10:26 AM EST documented as of this encounter Care Teams Paraprofessional Interpreter Relationship Specialty Start Date End Date Ayaka Salgado MD [address] [place] [address] PCP - General Internal Medicine 09/15/18 documented as of this encounter
--- OUTSIDE RECORDS SUMMARY | 2025-01-26 12:44 | XMS_ITS | Encounter Summary ---
Author Organization [employer] Address [address] [place] [address] [address] [address] Care Team Providers Care Swamper Name Role Phone Ayaka Salgado MD Primary Care Provider [phone] Reason for Visit * Reason Onset Date Comments Med Refill 12/12/2022 Encounter Details Date Type Department Care Team ([facility] st Contact Info) Description 12/12/2022 Telephone [facility] PEDS [address] [place] [address] Ayaka Salgado MD 505 [place] [address] Med Refill Social History Tobacco Use Types [...] (Percocet) 5-325 MG tablet Please sent to [facility][id number] - [place], [place] - [address] [place] [facility] documented in this encounter Plan of Treatment Upcoming Encounters Date Type Department Care Team (Late st Contact Info) Description 02/01/2025 9:00 AM EDT Clinical Support [facility] MED & PEDS 505 [place] [address] Alana Hook, RN 505 [place] [address] 02/22/2025 1:45 PM EDT Office Visit [facility] PEDS [address] [place] [address] Ayaka Salgado MD 505 [place] [address] documented as of this encounter Visit Diagnoses Not on filedocumented in this encounter Additional Health Concerns Assessment Noted Time PHQ-9 Depression Total Score: 7 08/29/20 22 10:26 AM EST documented as of this encounter Care Teams Swamper Relationship Specialty Start Date End Date Ayaka Salgado MD 505 [place] [address] PCP - General Internal Medicine 09/15/18 documented as of this encounter
--- OUTSIDE RECORDS SUMMARY | 2025-01-26 12:44 | XMS_ITS ---
Author Organization [employer] Address [address] [place] [address] 7 [place] [address] Care Team Providers Care Timber Spotter Name Role Phone Ayaka Salgado MD Primary Care Provider [phone] ROLLER SKATE REPAIRER Status:Enrolled (Active) Start date:12/20/2022 Enrollment date:12/20/2022 Case Team Name Relationship Phone Alana Hook RN(Responsible Staff) Registered Nurse Continued Care and Services Coordination
--- OUTSIDE RECORDS SUMMARY | 2025-01-26 12:44 | XMS_ITS | Encounter Summary ---
Author Organization [employer] Address 75 [facility] [address], [place] [address] Care Team Providers Care Gold Blower Name Role Phone Ayaka Salgado MD Primary Care Provider [phone] Reason for Visit * Reason Onset Date Comments Med Refill 01/25/2025 Encounter Details Date Type Department Care Team ([facility] st Contact Info) Description 01/25/2025 Telephone [facility] [address] [place] [address] Ayaka Salgado MD 505 [facility] [place] [address] Med Refill Social History Tobacco Use Types [...] the past 12 months, has t he [employer], gas, oil or water company threatened to [...] 10 MG tablet To be sent to: [facility][id number] [place] - [address] AT [facility] [place] documented in this encounter Plan of Treatment Upcoming Encounters Date Type Department Care Team ([facility] st Contact Info) Description 02/01/2025 9:00 AM EDT Clinical Support [facility] MED & PEDS [address] [place] [address] Alana Hook RN [address] [place] [address] 02/22/2025 1:45 PM EDT Office Visit [facility] MED & PEDS [address] [place] [address] Ayaka Salgado MD 505 [place] [address] documented as of this encounter Visit Diagnoses Not on filedocumented in this encounter Additional Health Concerns Assessment Noted Time PHQ-9 Depression Total Score: 12 025 11:13 AM EDT documented as of this encounter Care Teams Gold Blower Relationship Specialty Start Date End Date Ayaka Salgado MD 505 [place] [address] PCP - General Internal Medicine 09/15/18 documented as of this encounter
--- OUTSIDE RECORDS SUMMARY | 2025-01-26 12:44 | XMS_ITS | Encounter Summary ---
Author Organization [employer] Address 75 [facility] 7t [place] [address] Care Team Providers Care Personal Finance Instructor Name Role Phone Ayaka Salgado MD Primary Care Provider [phone] Reason for Visit * Reason Comments Med Refill Encounter Details Date Type Department Care Team (Late st Contact Info) Description 06/15/2024 Refill [facility] 230 [place], [place] [phone] Lev Gentile MD 230 [place], [place] [phone] Chronic pruritus Social History Tobacco Use Types [...] [facility] MED & PEDS 505 [place] [address] Alana Hook, RACHELLE 505 [place] [address] 02/22/2025 1:45 PM EDT Office Visit [facility] MED & PEDS 505 [place] [address] Ayaka Salgado MD 505 [place] [address] documented as of this encounter Visit Diagnoses Diagnosis Chronic pruritus documented in this encounter Additional Health Concerns Assessment Noted Time PHQ-9 Depression Total Score: 7 08/29/20 22 10:26 AM EST documented as of this encounter Care Teams Personal Finance Instructor Relationship Specialty Start Date End Date Ayaka Salgado MD 505 [place] [address] PCP - General Internal Medicine 09/15/18 documented as of this encounter
[2025-01-26 14:55] LABS: MANUAL DIFF FLAG NO
[2025-01-26 15:05] LABS: Basophils Percent Auto 0.5 % (0-2); Eosinophils Absolute Auto 0.4 X10*3/uL (0.0-0.4); Eosinophils Percent Auto 6.3 % (0-4); Hematocrit 26.8 % (42.0-52.0); Hemoglobin 7.9 g/dl (14.0-18.0); Imm Gran Abs Auto 0.02 X10*3/uL (0.00-0.03); Imm Gran Pct Auto 0.3 % (0.0-0.4); Lymphocytes Absolute Auto 0.6 X10*3/uL (1.2-4.9); Lymphocytes Percent Auto 9.5 % (20-40); Mean Corpuscular HGB Conc 29.5 g/dl (31.0-36.0); Mean Corpuscular Hemoglobin 24.4 pg (27.0-33.0); Mean Corpuscular Volume 82.7 fL (80.0-98.0); Mean Platelet Volume 12.6 fL (9.4-12.4); Monocytes Absolute Auto 0.6 X10*3/uL (0.1-1.2); Monocytes Percent Auto 9.3 % (2-11); Neutrophils Absolute Auto 4.4 x10*3/uL (2.0-8.3); Neutrophils Percent Auto 74.1 % (45-73); Platelet Count 145 X10*3/uL (160-400); Red Blood Count 3.24 X10*6/uL (4.60-5.80); Red Cell Distribution Width 18.4 % (11.0-16.0); White Blood Count 5.9 X10*3/uL (4.8-10.8)
== END 2025-01-26 12:01 | disposition home or self-care (01) ==
LOC: HO.CHCLDS 12:00
PROVIDERS: Visit Provider Internal Medicine
DX: D64.9 Anemia, unspecified (principal); I50.9 Heart failure, unspecified; I10 Essential (primary) hypertension; I65.22 Occlusion and stenosis of left carotid artery; I44.0 Atrioventricular block, first degree; I45.10 Unspecified right bundle-branch block; Z95.818 Presence of other cardiac implants and grafts; J44.9 Chronic obstructive pulmonary disease, unspecified
CPT/HCPCS: 36415; 85025; 94010; 99212

== ENCOUNTER 2025-02-16 09:35 | Outpatient (REF) | payer MEDICARE, SELFPAY ==
--- OUTSIDE RECORDS SUMMARY | 2025-02-16 10:00 | XMS_ITS ---
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
[2025-02-16 14:25] LABS: Hematocrit 28.3 % (42.0-52.0); Hemoglobin 8.2 g/dl (14.0-18.0); Mean Corpuscular Hemoglobin 23.8 pg (27.0-33.0); Mean Platelet Volume 11.9 fL (9.4-12.4); Platelet Count 195 X10*3/uL (160-400); Red Blood Count 3.45 X10*6/uL (4.60-5.80); Red Cell Distribution Width 18.7 % (11.0-16.0); White Blood Count 6.8 X10*3/uL (4.8-10.8)
[2025-02-16 14:38] LABS: Anion Gap 14 (12-20); Blood Urea Nitrogen 62 mg/dL (9-16); Calcium 10.1 mg/dL (8.4-10.2); Carbon Dioxide 22 mmol/L (22-29); Chloride 107 mmol/L (96-108); Estimated Glomerular Filt Rate 10; Glucose Random 88 mg/dL (60-115); Potassium 4.3 mmol/L (3.3-5.1); Sodium 139 mmol/L (135-145)
== END 2025-02-16 09:36 | disposition home or self-care (01) ==
LOC: HO.CHCLDS 09:35
PROVIDERS: Visit Provider Internal Medicine Hypertension Specialist
DX: N18.4 Chronic kidney disease, stage 4 (severe) (principal); D64.9 Anemia, unspecified
CPT/HCPCS: 36415; 80048; 85027

== ENCOUNTER 2025-02-22 09:40 | Outpatient (AMB) | payer MEDICARE, SELFPAY ==
--- NOTE | 2025-02-22 09:33 | HO.NEPHOV ---
Vital Signs 02/22/25 09:34 Height 5 ft 7 in Weight 219 lb BMI 34.3 BP 130/62 Blood Pressure Location Rt brachial Position Sitting Pulse 65 Pulse Source Pulse Oximeter Pulse Oximetry (%) 98 Oxygen Delivery Method Room Air Intake Visit Reasons: 1 MO FU Soaking Tank Worker Required: No Accompanied by: Self / Same As Patient Allergies aspirin Adverse Reaction (Unknown, Verified 02/22/25 09:36) nose bleeds metformin Adverse Reaction (Unknown, Verified 02/22/25 09:36) hypoglycemia warfarin [From Coumadin] Adverse Reaction (Unknown, Verified 02/22/25 09:36) Nose Bleed apixaban Adverse Reaction (Verified 02/22/25 09:36) Nose Bleed clopidogrel Adverse Reaction (Verified 02/22/25 09:36) Nose Bleed Medication List - Last Reconciled 02/22/25 by Ross Baldwin MD acetaminophen (Tylenol) 650 mg PO Q6H PRN albuterol sulfate 90 mcg/actuation (Ventolin HFA) inhalation albuterol sulfate mg inhalation aspirin 81 mg PO DAILY blood-glucose meter (FreeStyle Lite Meter kit) As directed bumetanide 1 mg PO BID calcitriol 0.25 mcg PO DAILY cholecalciferol (vitamin D3) 25 mcg PO Q48H cinacalcet 30 mg PO DAILY clonidine HCl 0.2 mg PO TID clopidogrel 75 mg PO DAILY gabapentin 300 mg PO TID glimepiride 1 mg PO DAILY hydralazine 100 mg PO TID labetalol 400 mg PO BID lancets (FreeStyle Lancets) As directed lidocaine 5% 1 patch topical DAILY PRN losartan 50 mg PO DAILY melatonin 5 mg PO BEDTIME oxycodone-acetaminophen 5-325 mg 1 tab PO Q8H PRN simvastatin 20 mg PO BEDTIME sitagliptin phosphate (Januvia) 25 mg PO DAILY umeclidinium 62.5 mcg/actuation (Incruse Ellipta) 1 inh inhalation DAILY zolpidem 10 mg PO BEDTIME HPI Comments Details: 67-year-old male with a history of type 2 diabetes, HTN, CKD, carotid stenosis, COPD, LEONEL not on CPAP, diastolic CHF with preserved ejection fraction, He has advanced CKD Baseline creatinine is between 3.5 and 4.0 Currently on high dose of Bumex -Takes 1mg BID No edema No dyspnea 06/15/24 ; c/o SOB;Gained some weight/edema ;Went to [place] 06/25/24 ;After adding metolazone 2 doses and increasing Bumex to 1 mg b.i.d. he has lost about 7 lb. His breathing has improved. He feels better 07/27/24;doing much better;seen by cardiology 08/30/24 ;Dyspnea on exertion ;Weight is down by few lbs 09/13/24 ; c/o difficulty sleeping ;He has LEONEL -but does not use CPAP ; New onset A.fib - work up in progress 11/08/24: Still sOB on exertion;Seeing cardilogy today 01/25/25 69-year-old male presenting with anemia management as the primary reason for the visit. He is receiving scheduled BrReticrit injection to improve his anemia and associated hemoglobin levels. Treatment continues due to persistent anemia. The patient also experiences knee pain and self-reports episodes of respiratory discomfort which could be associated with his other underlying conditions. 02/22/25 69-year-old male presenting with anemia management as the primary reason for the visit. He is receiving scheduled Retacrit injections to improve his anemia and associated hemoglobin levels. Treatment continues due to persistent anemia. The patient also experiences knee pain and self-reports episodes of respiratory discomfort which could be associated with his other underlying conditions. Underwent watchman procedure. There is ongoing observation as he is close to requiring renal dialysis due to chronic kidney disease. The patient is aware of potential future dialysis needs but remains stable and dialysis-free at present. [facility] Medical History Obesity (BMI 30-39.9) Elevated brain natriuretic peptide (BNP) level Lower extremity edema COPD (chronic obstructive pulmonary disease) LEONEL (obstructive sleep apnea) Dyspnea on minimal exertion COPD (chronic obstructive pulmonary disease) Smoker Left ventricular hypertrophy Smoking CKD (chronic kidney disease) Obesity Dyslipidemia Hypertension Diabetes mellitus Surgical History No pertinent past surgical history Family History Father No problems noted. Mother Diabetes Family/Other No problems noted. Social History Household Members: Significant Other Housing: Apartment Do you presently have visiting nurse or other home services: No Alcohol intake: current Alcohol intake frequency: a few times a month Patient Tobacco Use Status: Former Tobacco user e-Cigarette/Vaping Use: Never Used Second Hand Smoke Exposure: No Advance Directives Date on File: 08/23/22 service: No Current occupational status: disabled Physical Exam Vital Signs: Last Vital Signs Pulse 65 02/22/25 09:34 BP 130/62 02/22/25 09:34 Pulse Ox 98 02/22/25 09:34 Oxygen Delivery Method Room Air 02/22/25 09:34 BMI result Body Mass Index 34.3 Results Reviewed Nephrology Results: Hgb 8.2 g/dl (14.0-18.0) L 02/16/25 WBC 6.8 X10*3/uL (4.8-10.8) 02/16/25 Plt Count 195 X10*3/uL (160-400) 02/16/25 Sodium 139 mmol/L (135-145) 02/16/25 Potassium 4.3 mmol/L (3.3-5.1) 02/16/25 Chloride 107 mmol/L (96-108) 02/16/25 Carbon Dioxide 22 mmol/L (22-29) 02/16/25 BUN 62 mg/dL (9-16) H 02/16/25 Creatinine 5.50 mg/dL (0.5-1.4) H* 02/16/25 Calcium 10.1 mg/dL (8.4-10.2) 02/16/25 Assessment & Plan Assessment & Plan (1) Anemia: Comment: His last hemoglobin was 8.2 gm/dL. Most likely cause of his anemia is chronic renal disease. [id number] and [id number] Code(s): D64.9 - Anemia, unspecified Category: Medical Plan: Adminstered Retacrit 64929 U ( two x 59002 U ) sq (2) CKD (chronic kidney disease) stage 4, GFR 15-29 ml/min: Code(s): N18.4 - Chronic kidney disease, stage 4 (severe) Category: Medical (3) Essential hypertension: Code(s): I10 - Essential (primary) hypertension Category: Medical Plan: BP appears controlled. We discussed weight loss and low-salt diet again. (4) Chronic diastolic congestive heart failure: Code(s): I50.32 - Chronic diastolic (congestive) heart failure Category: Medical Plan: Compensated. Follows with cardiology. (5) Obesity (BMI 30-39.9): Code(s): E66.9 - Obesity, unspecified Category: Medical Plan: Discussed weight loss. (6) Hyperparathyroidism: Code(s): E21.3 - Hyperparathyroidism, unspecified Category: Medical Plan: He is currently on cinacalcet and Rocaltrol. Will HOLD Cinacalcet ( 11/08/24) Repeat Ca is normal Follow PTH Plan Referred to dialysis education program. He will be a good candidate for CCPD Discussed pre-emptive transplant Referred to [facility] - seen in Nov Work up in progress Orders: Orders Phosphorus 2 Weeks N18.4 - Chronic kidney disease, stage 4 (severe) AMB Epoetin Injection Practice Supplied Today N40.1 - Benign prostatic hyperplasia with lower urinary tract symptoms Complete Blood Count no Diff 2 Weeks D64.9 - Anemia, unspecified Parathyroid Hormone Intact 2 Weeks N18.4 - Chronic kidney disease, stage 4 (severe) Basic Metabolic Panel 2 Weeks N18.4 - Chronic kidney disease, stage 4 (severe) AMB Epoetin Injection Practice Supplied Today D64.9 - Anemia, unspecified, N18.4 - Chronic kidney disease, stage 4 (severe) Medications: New epoetin chad-epbx 20,000 units subcut ONCE 1 mL 0RF anemia N40.1 - Benign prostatic hyperplasia with lower urinary tract symptoms epoetin chad-epbx 20,000 units subcut ONCE 2 mL 0RF anemia D64.9 - Anemia, unspecified, N18.4 - Chronic kidney disease, stage 4 (severe) Coding Level of Care Code Est Pt Level 4 (89075) Diagnoses Anemia D64.9 CKD (chronic kidney disease) stage 4, GFR 15-29 ml/min N18.4 Essential hypertension I10 Chronic diastolic congestive heart failure I50.32 Obesity (BMI 30-39.9) E66.9 Hyperparathyroidism E21.3
[2025-02-22 09:34] VITALS: BP 130/62; PULSE 65; O2SAT 98; BMI 34.3
--- OUTSIDE RECORDS SUMMARY | 2025-02-22 10:43 | XMS_ITS ---
Author Organization [facility] Address [address] [place] [address] Care Team Providers Care Conservation Worker Name Role Phone Ayaka Salgado Primary Care Provider [phone] Transplant Episode Kidney Candidate [facility] ([place], [place]) - [facility] Evaluation began on 07/29/2024 Marked as Active on 07/29/2024 Kidney CoordinatorShima Springer RN Email: N/A Scores Score Value Updated Exceptions/Reas ons CPRA Not available EPTS (Calc) 44 02/22/2025 [place] Organ Diagnosis Organ Primary Contributory Kidney Diabetes Mellitus - Type II Care Team Name Role Phone Fax Email Shima Springer RN Kidney Coordinator [phone] N/A Ross Baldwin Referring Physician [phone] N/A Events Pre-Transplant Referred: 07/19/2024 Evaluation began: 07/29/2024
== END 2025-02-22 09:53 | disposition home or self-care (01) ==
LOC: HO.HKA 09:41
PROVIDERS: PCP Internal Medicine; Visit Provider Internal Medicine Hypertension Specialist
DX: D64.9 Anemia, unspecified (principal); I12.9 Hypertensive chronic kidney disease with stage 1 through stage 4 chronic kidney disease, or unspecified chronic kidney disease; N18.4 Chronic kidney disease, stage 4 (severe); I50.32 Chronic diastolic (congestive) heart failure; E66.9 Obesity, unspecified; E21.3 Hyperparathyroidism, unspecified
CPT/HCPCS: 99214

== ENCOUNTER → 2025-02-22 09:40 | Outpatient (BNVA) | payer MEDICARE, SELFPAY | PROVIDERS: PCP Internal Medicine; Visit Provider Internal Medicine Hypertension Specialist | DX: I13.0 Hypertensive heart and chronic kidney disease with heart failure and stage 1 through stage 4 chronic kidney disease, or unspecified chronic kidney disease (principal); E11.22 Type 2 diabetes mellitus with diabetic chronic kidney disease; N18.4 Chronic kidney disease, stage 4 (severe); I50.32 Chronic diastolic (congestive) heart failure; D63.1 Anemia in chronic kidney disease; E66.9 Obesity, unspecified; E21.3 Hyperparathyroidism, unspecified; Z79.899 Other long term (current) drug therapy; Z68.39 Body mass index [BMI] 39.0-39.9, adult | CPT/HCPCS: 96372; 99212; Q5106 ==

== ENCOUNTER → 2025-02-22 23:59 | Outpatient (BNV) | payer MEDICARE, SELFPAY ==
--- NOTE | 2025-03-01 15:59 | A.OFFVIS_ITS ---
Intake Visit Reasons: Remote Cardiomems- St Jr Allergies aspirin Adverse Reaction (Unknown, Verified 02/22/25 09:36) nose bleeds metformin Adverse Reaction (Unknown, Verified 02/22/25 09:36) hypoglycemia warfarin [From Coumadin] Adverse Reaction (Unknown, Verified 02/22/25 09:36) Nose Bleed apixaban Adverse Reaction (Verified 02/22/25 09:36) Nose Bleed clopidogrel Adverse Reaction (Verified 02/22/25 09:36) Nose Bleed [facility] Medical History Obesity (BMI 30-39.9) Elevated brain natriuretic peptide (BNP) level Lower extremity edema COPD (chronic obstructive pulmonary disease) LEONEL (obstructive sleep apnea) Dyspnea on minimal exertion COPD (chronic obstructive pulmonary disease) Smoker Left ventricular hypertrophy Smoking CKD (chronic kidney disease) Obesity Dyslipidemia Hypertension Diabetes mellitus Surgical History No pertinent past surgical history Family History Father No problems noted. Mother Diabetes Family/Other No problems noted. Social History Household Members: Significant Other Housing: Apartment Do you presently have visiting nurse or other home services: No Alcohol intake: current Alcohol intake frequency: a few times a month Patient Tobacco Use Status: Former Tobacco user e-Cigarette/Vaping Use: Never Used Second Hand Smoke Exposure: No Advance Directives Date on File: 08/23/22 service: No Current occupational status: disabled Office Procedures Cardiac Device Check Cardiac Device Check Details: Monitoring period dates: 01/12/25 - 02/22/25 Optimal PA pressure range: PAD goal 16mmhg Procedure code: 37773 BACKGROUND: Lewis is implanted with the CardioMEMS PA Sensor.? I use this technology to monitor PA pressures on a weekly basis to ensure patients are within their optimal range to prevent decompensation.? SUMMARY:? I utilized the remote monitoring platform (IP Ghoster) to set optimal targets for pulmonary artery pressure thresholds as part of acute and chronic management of patient?s heart failure. During the period indicated above, I monitored the patient?s pulmonary artery pressures weekly via trend analysis and notification reports which provide alerts when patient?s PA pressures were outside of range to prompt immediate action in medication changes and communications.? The weekly reports are archived in the [employer]er system which serve as a parallel record to document weekly PA pressures, medication changes, and clinical notes. I have reviewed readings on 01/14, 01/21, 01/28, 02/04, 02/11, and 02/18. Readings have ranged between 18-29mmhg. He has advanced CKD and no diuretic changes were made. No significant changes in the last month. 45193 - Remote monitoring of wireless pulmonary artery pressure sensor Procedure code (CPT) selection complete Assessment & Plan Assessment & Plan (1) Presence of CardioMEMS HF system: Code(s): Z95.818 - Presence of other cardiac implants and grafts Category: Medical Plan: monthly report Coding Level of Care Code Procedure Only Diagnoses Presence of CardioMEMS HF system Z95.818 CPT Codes Cardiac Device Check - Cardiac Device 17: 42874 - Remote monitoring of wireless pulmonary artery pressure sensor ([id number])
== END ==
PROVIDERS: PCP Internal Medicine; Visit Provider Nurse Practitioner Family
DX: Z45.09 Encounter for adjustment and management of other cardiac device (principal)
CPT/HCPCS: 93264

== ENCOUNTER 2025-03-07 08:12 | Outpatient (REF) | payer MEDICARE, SELFPAY ==
--- OUTSIDE RECORDS SUMMARY | 2025-03-07 08:17 | XMS_ITS | Encounter Summary ---
Author Organization [facility] [address] [facility] [address] [place] [address] Phone Care Team Providers Care Comb Capper Name Role Phone Jayme Salgado MD Primary Care Provider [phone] Reason for Visit * Reason Comments Med Refill Encounter Details Date Type Department Care Team (Late st Contact Info) Description 04/28/2023 Refill [facility] [address] [place] [phone] Mumtaz Childress MD [address] [facility] [address] [place] [address] Type 2 diabetes mellitus with [...] (HCC) documented in this encounter Care Teams Comb Capper Relationship Specialty Start Date End Date Jayme Salgado MD [address] [place] [address] PCP - General 09/25/20 documented as of this encounter
[2025-03-07 13:50] LABS: Hematocrit 30.7 % (42.0-52.0); Hemoglobin 9.1 g/dl (14.0-18.0); Mean Corpuscular HGB Conc 29.6 g/dl (31.0-36.0); Mean Corpuscular Hemoglobin 23.9 pg (27.0-33.0); Mean Corpuscular Volume 80.6 fL (80.0-98.0); Platelet Count 217 X10*3/uL (160-400); Red Blood Count 3.81 X10*6/uL (4.60-5.80); Red Cell Distribution Width 19.2 % (11.0-16.0); White Blood Count 5.3 X10*3/uL (4.8-10.8)
[2025-03-07 14:19] LABS: Anion Gap 13 (12-20); Blood Urea Nitrogen 67 mg/dL (9-16); Calcium 10.4 mg/dL (8.4-10.2); Carbon Dioxide 23 mmol/L (22-29); Chloride 109 mmol/L (96-108); Estimated Glomerular Filt Rate 12; Glucose Random 150 mg/dL (60-115); Iron 34 mcg/dL (45-160); Percent Iron Saturation 12 % (15-50); Phosphorus 4.9 mg/dL (2.7-4.5); Potassium 4.5 mmol/L (3.3-5.1); Sodium 140 mmol/L (135-145); Total Iron Binding Capacity 279 mcg/dL (228-428); Unsaturated Iron Binding 245 ug/dL
[2025-03-07 14:31] LABS: Ferritin 28 ng/mL (20-250)
== END 2025-03-07 08:13 | disposition home or self-care (01) ==
LOC: HO.CHCLDS 08:12
PROVIDERS: Visit Provider Internal Medicine Hypertension Specialist
DX: D64.9 Anemia, unspecified (principal); N18.4 Chronic kidney disease, stage 4 (severe)
CPT/HCPCS: 36415; 80048; 82728; 83540; 83970; 84100; 85027

== ENCOUNTER 2025-03-08 09:26 | Outpatient (AMB) | payer MEDICARE, SELFPAY ==
--- NOTE | 2025-03-08 09:46 | HO.NEPHOV_ITS ---
Vital Signs 03/08/25 09:47 Height 5 ft 7 in Weight 214 lb BMI 33.5 BP 110/62 Blood Pressure Location Rt brachial Position Sitting Pulse 65 Pulse Source Pulse Oximeter Pulse Oximetry (%) 97 Oxygen Delivery Method Room Air Intake Visit Reasons: Retacrit Commercial Leasing Agent Required: No Accompanied by: Self / Same As Patient Allergies aspirin Adverse Reaction (Unknown, Verified 03/08/25 09:48) nose bleeds metformin Adverse Reaction (Unknown, Verified 03/08/25 09:48) hypoglycemia warfarin (From Coumadin) Adverse Reaction (Unknown, Verified 03/08/25 09:48) Nose Bleed apixaban Adverse Reaction (Verified 03/08/25 09:48) Nose Bleed clopidogrel Adverse Reaction (Verified 03/08/25 09:48) Nose Bleed HPI Comments Details: 67-year-old male with a history of type 2 diabetes, HTN, CKD, carotid stenosis, COPD, LEONEL not on CPAP, diastolic CHF with preserved ejection fraction, He has advanced CKD Baseline creatinine is between 3.5 and 4.0 Currently on high dose of Bumex -Takes 1mg BID No edema No dyspnea 06/15/24 ; c/o SOB;Gained some weight/edema ;Went to [place] 06/25/24 ;After adding metolazone 2 doses and increasing Bumex to 1 mg b.i.d. he has lost about 7 lb. His breathing has improved. He feels better 07/27/24;doing much better;seen by cardiology 08/30/24 ;Dyspnea on exertion ;Weight is down by few lbs 09/13/24 ; c/o difficulty sleeping ;He has LEONEL -but does not use CPAP ; New onset A.fib - work up in progress 11/08/24: Still sOB on exertion;Seeing cardilogy today 01/25/25 69-year-old male presenting with anemia management as the primary reason for the visit. He is receiving scheduled BrReticrit injection to improve his anemia and associated hemoglobin levels. Treatment continues due to persistent anemia. The patient also experiences knee pain and self-reports episodes of respiratory discomfort which could be associated with his other underlying conditions. 02/22/25 69-year-old male presenting with anemia management as the primary reason for the visit. He is receiving scheduled Retacrit injections to improve his anemia and associated hemoglobin levels. Treatment continues due to persistent anemia. The patient also experiences knee pain and self-reports episodes of respiratory discomfort which could be associated with his other underlying conditions. Underwent watchman procedure. There is ongoing observation as he is close to requiring renal dialysis due to chronic kidney disease. The patient is aware of potential future dialysis needs but remains stable and dialysis-free at present. 03/08/25- No new issues [facility] Medical History Obesity (BMI 30-39.9) Elevated brain natriuretic peptide (BNP) level Lower extremity edema COPD (chronic obstructive pulmonary disease) LEONEL (obstructive sleep apnea) Dyspnea on minimal exertion COPD (chronic obstructive pulmonary disease) Smoker Left ventricular hypertrophy Smoking CKD (chronic kidney disease) Obesity Dyslipidemia Hypertension Diabetes mellitus Surgical History No pertinent past surgical history Family History Father No problems noted. Mother Diabetes Family/Other No problems noted. Social History Household Members: Significant Other Housing: Apartment Do you presently have visiting nurse or other home services: No Alcohol intake: current Alcohol intake frequency: a few times a month Patient Tobacco Use Status: Former Tobacco user e-Cigarette/Vaping Use: Never Used Second Hand Smoke Exposure: No Advance Directives Date on File: 08/23/22 service: No Current occupational status: disabled Physical Exam Vital Signs: Last Vital Signs Pulse 65 03/08/25 09:47 BP 110/62 03/08/25 09:47 Pulse Ox 97 03/08/25 09:47 Oxygen Delivery Method Room Air 03/08/25 09:47 BMI result Body Mass Index 33.5 Office Meds epoetin chad-epbx 20,000 unit/mL injection solution Performing Provider: Ross Baldwin MD [facility] Administered by: Ross Baldwin MD on 03/08/25 10:00 Dose Route Admin Location Dispensed Lot Number Expiration Date [facility] Independent Living Specialist 20,000 unit subcut right arm 1 mL [id number] 11/12/26 0612-6047-56 [facility] Total Dispensed Waste 1 mL 0 % Results Reviewed Nephrology Results: Hgb, (14.0-18.0) 9.1 g/dl L 03/07/25 WBC, (4.8-10.8) 5.3 X10*3/uL 03/07/25 Plt Count, (160-400) 217 X10*3/uL 03/07/25 Sodium, (135-145) 140 mmol/L 03/07/25 Potassium, (3.3-5.1) 4.5 mmol/L 03/07/25 Chloride, (96-108) 109 mmol/L H 03/07/25 Carbon Dioxide, (22-29) 23 mmol/L 03/07/25 BUN, (9-16) 67 mg/dL H 03/07/25 Creatinine, (0.5-1.4) 5.05 mg/dL H* 03/07/25 Calcium, (8.4-10.2) 10.4 mg/dL H 03/07/25 Phosphorus, (2.7-4.5) 4.9 mg/dL H 03/07/25 PTH Intact, (8.7-77.1) 522.0 pg/mL H 03/07/25 Assessment & Plan Assessment & Plan (1) Anemia: Code(s): D64.9 - Anemia, unspecified Category: Medical Plan: Adminstered Retacrit 13696 U sq (2) CKD (chronic kidney disease) stage 5, GFR less than 15 ml/min: Code(s): N18.5 - Chronic kidney disease, stage 5 Category: Medical Plan: Renal fx unchanged eGFR between 10 and 12 ml/mt since Sep 2024 No s/s or uremia or fluid overload today (3) Essential hypertension: Code(s): I10 - Essential (primary) hypertension Category: Medical Plan: BP appears controlled. We discussed weight loss and low-salt diet again. (4) Chronic diastolic congestive heart failure: Code(s): I50.32 - Chronic diastolic (congestive) heart failure Category: Medical Plan: Compensated. Follows with cardiology. (5) Type 2 diabetes mellitus with unspecified complications: Code(s): E11.8 - Type 2 diabetes mellitus with unspecified complications Category: Medical (6) Obesity (BMI 30-39.9): Code(s): E66.9 - Obesity, unspecified Category: Medical Plan: Discussed weight loss. (7) Hyperparathyroidism: Code(s): E21.3 - Hyperparathyroidism, unspecified Category: Medical Plan: He is currently on cinacalcet and Rocaltrol. Will HOLD Cinacalcet ( 11/08/24) Repeat Ca is normal Follow PTH Plan Referred to dialysis education program. He will be a good candidate for CCPD Discussed pre-emptive transplant Referred to [facility] - seen in Nov Work up in progress Orders: Orders Complete Blood Count no Diff 4 Weeks N18.5 - Chronic kidney disease, stage 5 Parathyroid Hormone Intact Today N18.5 - Chronic kidney disease, stage 5 Phosphorus Today N18.5 - Chronic kidney disease, stage 5 Basic Metabolic Panel 4 Weeks N18.5 - Chronic kidney disease, stage 5 AMB Epoetin Injection Practice Supplied Today D64.9 - Anemia, unspecified, N18.5 - Chronic kidney disease, stage 5 Coding Level of Care Code Est Pt Level 4 (55528) Diagnoses Anemia D64.9 CKD (chronic kidney disease) stage 5, GFR less than 15 ml/min N18.5 Essential hypertension I10 Chronic diastolic congestive heart failure I50.32 Type 2 diabetes mellitus with unspecified complications E11.8 Obesity (BMI 30-39.9) E66.9 Hyperparathyroidism E21.3
[2025-03-08 09:47] VITALS: BP 110/62; PULSE 65; O2SAT 97; BMI 33.5
--- OUTSIDE RECORDS SUMMARY | 2025-03-08 10:06 | XMS_ITS ---
Author Organization [facility] Address [address] [place] [address] Care Team Providers Care Locker Room Supervisor Name Role Phone Ayaka Salgado Primary Care Provider [phone] Transplant Episode Kidney Candidate [facility] ([place], [place]) - [facility] Evaluation began on 07/29/2024 Marked as Active on 07/29/2024 Kidney CoordinatorShima Springer RN Email: N/A Scores Score Value Updated Exceptions/Reas ons CPRA Not available EPTS (Calc) 45 03/08/2025 [place] Organ Diagnosis Organ Primary Contributory Kidney Diabetes Mellitus - Type II Care Team Name Role Phone Fax Email Shima Springer RN Kidney Coordinator [phone] N/A Ross Baldwin Referring Physician [phone] N/A Events Pre-Transplant Referred: 07/19/2024 Evaluation began: 07/29/2024
== END 2025-03-08 10:01 | disposition home or self-care (01) ==
LOC: HO.HKA 09:26
PROVIDERS: PCP Internal Medicine; Visit Provider Internal Medicine Hypertension Specialist
DX: D64.9 Anemia, unspecified (principal); N18.5 Chronic kidney disease, stage 5; I12.0 Hypertensive chronic kidney disease with stage 5 chronic kidney disease or end stage renal disease; I50.32 Chronic diastolic (congestive) heart failure; E11.8 Type 2 diabetes mellitus with unspecified complications; E66.9 Obesity, unspecified; E21.3 Hyperparathyroidism, unspecified
CPT/HCPCS: 99214

== ENCOUNTER → 2025-03-08 09:26 | Outpatient (BNVA) | payer MEDICARE, SELFPAY | PROVIDERS: PCP Internal Medicine; Visit Provider Internal Medicine Hypertension Specialist | DX: E11.22 Type 2 diabetes mellitus with diabetic chronic kidney disease (principal); I13.0 Hypertensive heart and chronic kidney disease with heart failure and stage 1 through stage 4 chronic kidney disease, or unspecified chronic kidney disease; N18.5 Chronic kidney disease, stage 5; I50.32 Chronic diastolic (congestive) heart failure; D63.1 Anemia in chronic kidney disease; E11.8 Type 2 diabetes mellitus with unspecified complications; E21.3 Hyperparathyroidism, unspecified; E66.9 Obesity, unspecified; Z68.33 Body mass index [BMI] 33.0-33.9, adult | CPT/HCPCS: 96372; 99212; Q5106 ==

== ENCOUNTER 2025-03-28 09:04 | Outpatient (REF) | payer MEDICARE, SELFPAY ==
--- OUTSIDE RECORDS SUMMARY | 2025-03-28 09:22 | XMS_ITS | Encounter Summary ---
Author Organization [facility] [address] [facility] [address] [place] [address] Phone Care Team Providers Care Precinct Police Lieutenant Name Role Phone Jayme Salgado MD Primary Care Provider [phone] Reason for Visit * Reason Comments Med Refill Encounter Details Date Type Department Care Team (Late st Contact Info) Description 04/28/2023 Refill [facility] [address] [place] [id number] Mumtaz Childress MD [address] [facility] [address] [place] [address] Type 2 diabetes mellitus with [...] (HCC) documented in this encounter Care Teams Precinct Police Lieutenant Relationship Specialty Start Date End Date Jayme Salgado MD [address] [place] [address] PCP - General 09/25/20 documented as of this encounter
--- OUTSIDE RECORDS SUMMARY | 2025-03-28 09:22 | XMS_ITS ---
Author Organization [facility] Address [address] [place] [address] Care Team Providers Care Dynamics Ax Developer Name Role Phone Ayaka Salgado Primary Care Provider Transplant Episode Kidney Candidate [facility] ([place], [place]) - [facility] Evaluation began on 07/29/2024 Marked as Active on 07/29/2024 Kidney CoordinatorShima Springer RN Email: N/A Scores Score Value Updated Exceptions/Reas ons CPRA Not available EPTS (Calc) 45 03/28/2025 [place] Organ Diagnosis Organ Primary Contributory Kidney Diabetes Mellitus - Type II Care Team Name Role Phone Fax Email Shima Springer RN Kidney Coordinator [phone] N/A Ross Baldwin Referring Physician [phone] N/A Events Pre-Transplant Referred: 07/19/2024 Evaluation began: 07/29/2024 Committee: 03/09/2025
--- OUTSIDE RECORDS SUMMARY | 2025-03-28 09:22 | XMS_ITS | Encounter Summary ---
Author Organization [employer] Address [address] [facility] 7 [place] [address] Care Team Providers Care Rabble Furnace Tender Name Role Phone Ayaka Salgado MD Primary Care Provider [phone] Reason for Visit * Reason Onset Date Comments Med Refill 09/06/2024 Encounter Details Date Type Department Care Team ([facility] st Contact Info) Description 09/06/2024 Telephone [facility] MEDICINE [address] [place], [place] [id number] Ayaka Salgado MD [address] [facility] [place] [address] Med Refill Social History Tobacco Use Types [...] 8:56 AM EST Medication was sent to [facility] #[id number] on 08/09/24 with 3 refills. * Telephone Encounter - Cleopatra Ortiz - 09/06/2024 8:53 AM EST TC from pt requesting medication refill. Medications needing refill : labetalol (Normodyne) 200 MG tablet To be sent to: [id number] - [place] - [address] [facility] [address] documented in this encounter Plan of Treatment Upcoming Encounters Date Type Department Care Team ([facility] st Contact Info) Description 04/13/2025 9:00 AM EDT Clinical Support [facility] MED & PEDS [address] [facility] [place] [address] Alana Hook, RN [address] [facility] [place] [address] documented as of this encounter Visit Diagnoses Not on filedocumented in this encounter Additional Health Concerns Assessment Noted Time PHQ-9 Depression Total Score: 7 08/29/20 22 10:26 AM EST documented as of this encounter Care Teams Rabble Furnace Tender Relationship Specialty Start Date End Date Ayaka Salgado MD [address] [place] [address] PCP - General Internal Medicine 09/15/18 documented as of this encounter
[2025-03-28 15:42] LABS: Hematocrit 29.7 % (42.0-52.0); Hemoglobin 9.1 g/dl (14.0-18.0); Mean Corpuscular HGB Conc 30.6 g/dl (31.0-36.0); Mean Corpuscular Hemoglobin 24.7 pg (27.0-33.0); Mean Corpuscular Volume 80.7 fL (80.0-98.0); NRBC Abs Auto 0.000 X10*3/uL (0.0-0.012); NRBC Pct Auto 0.0 /100WBC (0.0-0.2); Platelet Count 167 X10*3/uL (160-400); Red Blood Count 3.68 X10*6/uL (4.60-5.80); White Blood Count 5.2 X10*3/uL (4.8-10.8)
[2025-03-28 16:06] LABS: Anion Gap 14 (12-20); Blood Urea Nitrogen 57 mg/dL (9-16); Calcium 10.2 mg/dL (8.4-10.2); Carbon Dioxide 25 mmol/L (22-29); Chloride 107 mmol/L (96-108); Estimated Glomerular Filt Rate 12; Potassium 4.6 mmol/L (3.3-5.1); Sodium 141 mmol/L (135-145)
== END 2025-03-28 09:05 | disposition home or self-care (01) ==
LOC: HO.CHCLDS 09:04
PROVIDERS: Visit Provider Internal Medicine Hypertension Specialist
DX: N18.5 Chronic kidney disease, stage 5 (principal)
CPT/HCPCS: 36415; 80048; 85027

== ENCOUNTER 2025-03-30 09:54 | Outpatient (AMB) | payer MEDICARE, SELFPAY ==
--- NOTE | 2025-03-30 10:02 | A.OFFVIS_ITS ---
Vital Signs 03/30/25 10:03 Height 5 ft 7 in Weight 219 lb 5.759 oz BMI 34.4 BP 118/62 Blood Pressure Location Lt brachial Position Sitting Pulse 77 Pulse Source Pulse Oximeter Pulse Oximetry (%) 97 Oxygen Delivery Method Room Air Intake Visit Reasons: COPD Intake Note: pt is here for follow up and states his breathing is good. had watchman procedure done for a-fib Pad Machine Offbearer Required: No Allergies aspirin Adverse Reaction (Unknown, Verified 03/30/25 10:11) nose bleeds metformin Adverse Reaction (Unknown, Verified 03/30/25 10:11) hypoglycemia warfarin (From Coumadin) Adverse Reaction (Unknown, Verified 03/30/25 10:11) Nose Bleed apixaban Adverse Reaction (Verified 03/30/25 10:11) Nose Bleed clopidogrel Adverse Reaction (Verified 03/30/25 10:11) Nose Bleed Medication List - Last Reconciled 03/30/25 by Seble Montejo MD acetaminophen (Tylenol) 650 mg PO Q6H PRN albuterol sulfate 90 mcg/actuation (Ventolin HFA) inhalation albuterol sulfate mg inhalation aspirin 81 mg PO DAILY blood-glucose meter (FreeStyle Lite Meter kit) As directed bumetanide 1 mg PO BID calcitriol 0.25 mcg PO DAILY cholecalciferol (vitamin D3) 25 mcg PO Q48H cinacalcet 30 mg PO DAILY clonidine HCl 0.2 mg PO TID clopidogrel 75 mg PO DAILY gabapentin 300 mg PO TID glimepiride 1 mg PO DAILY hydralazine 100 mg PO TID labetalol 300 mg PO BID lancets (FreeStyle Lancets) As directed lidocaine 5% 1 patch topical DAILY PRN losartan 50 mg PO DAILY melatonin 5 mg PO BEDTIME oxycodone-acetaminophen 5-325 mg 1 tab PO Q8H PRN simvastatin 20 mg PO BEDTIME sitagliptin phosphate (Januvia) 25 mg PO DAILY umeclidinium 62.5 mcg/actuation (Incruse Ellipta) 1 inh inhalation DAILY zolpidem 10 mg PO BEDTIME Do you need a note to return to daycare/school/sports/work: No HPI HPI COPD: Details: THIS 69 YEARS OLD GENTLEMAN COMES FOR FOLLOW-UP FOR HIS COPD AND SHORTNESS OF BREATH ON EXERTION, HE HAS MILD COPD, WHICH IS WELL CONTROLLED WITH THE USE OF INCRUSE ELLIPTA ONCE A DAY, AND HE DOES NOT NEED TO USE ANY RESCUE INHALER. HIS SHORTNESS OF BREATH ON EXERTION IS MAINLY DUE TO CHRONIC ANEMIA RELATED TO HIS CHRONIC KIDNEY DISEASE. HE IS ON PROCRIT INJECTION, AND HIS LAST HEMOGLOBIN IS 9.1 G IMPROVED AND STABLE. HE DENIES HAVING HAD ANY ACUTE ATTACKS OF WHEEZING OR CHEST CONGESTION. HE DOES HAVE HISTORY OF OBSTRUCTIVE SLEEP APNEA, MILD AND POSITIONAL. AND HE TRIES TO SLEEP IN LATERAL POSITION. [facility] Medical History Obesity (BMI 30-39.9) Elevated brain natriuretic peptide (BNP) level Lower extremity edema COPD (chronic obstructive pulmonary disease) LEONEL (obstructive sleep apnea) Dyspnea on minimal exertion COPD (chronic obstructive pulmonary disease) Smoker Left ventricular hypertrophy Smoking CKD (chronic kidney disease) Obesity Dyslipidemia Hypertension Diabetes mellitus Surgical History No pertinent past surgical history Family History Father No problems noted. Mother Diabetes Family/Other No problems noted. Social History Household Members: Significant Other Housing: Apartment Do you presently have visiting nurse or other home services: No Alcohol intake: current Alcohol intake frequency: a few times a month Patient Tobacco Use Status: Former Tobacco user e-Cigarette/Vaping Use: Never Used Second Hand Smoke Exposure: No Advance Directives Date on File: 08/23/22 service: No Current occupational status: disabled Review of Systems Const All systems reviewed & are unremarkable except as noted in HPI and below Eyes Reports no additional complaints ENT Reports no additional complaints Card Denies chest pain, Denies irregular heart rhythm, Denies leg edema and Reports dyspnea on exertion Resp Reports as per HPI and Reports dyspnea on exertion GI Reports no additional complaints Reports no additional complaints Musc Reports no additional complaints Skin/Breast Reports system reviewed and no additional complaints, except as documented Neuro Reports no additional complaints Psych Reports no additional complaints Physical Exam Vital Signs: Last Vital Signs Pulse 77 03/30/25 10:03 BP 118/62 03/30/25 10:03 Pulse Ox 97 03/30/25 10:03 Oxygen Delivery Method Room Air 03/30/25 10:03 BMI result Body Mass Index 34.4 He is grossly obese especially with protuberant abdomen, Large and round face. Sitting comfortably. Const General: comfortable, no acute distress, alert and awake Orientation/consciousness: patient oriented x3 HEENT Head: Yes normal to inspection General nose exam: No nasal polyps present and No nasal discharge present Face and sinus: Yes sinuses nontender Mouth: oropharynx normal Throat: Yes posterior oropharynx normal Eyes General: appearance normal, both eyes and all related structures Neck Neck: Yes normal visual inspection, Yes no lymphadenopathy, Yes trachea midline and Yes no JVD Thyroid: Thyroid normal Chest Chest palpation & inspection: normal inspection of the chest, normal palpation of entire chest wall and no tenderness Resp Other: Percussion note is resonant. Breath sounds are decreased over both basilar areas, Respiratory excursions are diminished. No crepitations or wheezes are heard. Cardio Palpation: normal PMI Rate: regular rate Rhythm: regular rhythm Heart sounds: no gallops and no murmurs GI Palpation (GI): Soft to palpation, nontender, No hepatosplenomegaly present, no masses and Other GI palpation findings present (Abdomen is obese and protuberant) Auscultation: normal bowel sounds Back/Spine/Pelvis Thoracic/Lumbar Spine: thoracic and lumbar spine normal to inspection and thoraco-lumbar ROM limited Skin General skin exam: no rashes or lesions noted Neuro General: patient oriented x3 and no focal motor deficits Cranial nerves: Yes CN's II-XII intact bilaterally Extrem General: Yes normal to inspection, Yes no clubbing, cyanosis or edema and Yes no calf tenderness Psych Appearance: grossly normal and well kempt Speech and movement: Normal speech and movement present Assessment & Plan Assessment & Plan (1) COPD (chronic obstructive pulmonary disease): Comment: Patient does have moderately severe obstructive airway disorder, no evidence of positive response to bronchodilator therapy. Remains stable and does not need to use the rescue inhaler. Code(s): J44.9 - Chronic obstructive pulmonary disease, unspecified Category: Medical Plan: Continue using Incruse Ellipta 1 inhalation daily. Keep Ventolin inhaler on hand and use 2 inhalations Q 4-6 hours only p.r.n.. (2) LEONEL (obstructive sleep apnea): Comment: IS A KNOWN CASE OF OBSTRUCTIVE SLEEP APNEA, MILD. WAS NOT BEEN ABLE TO USE CPAP. HE HAS TRIED TO TREAT HIS SLEEP APNEA WITH POSITION THERAPY, AND TRIES TO SLEEP IN LATERAL POSITION. HE CLAIMS THAT HE SLEEPS WELL AND DOES NOT HAVE MUCH SNORING OR FREQUENT AWAKENINGS. Code(s): G47.33 - Obstructive sleep apnea (adult) (pediatric) Category: Medical Plan: ENCOURAGED TO KEEP ON SLEEPING IN LATERAL POSITIONS (3) Dyspnea on minimal exertion: Comment: DYSPNEA ON EXERTION DUE TO COMBINATION OF MULTIPLE FACTORS INCLUDING, -OBESITY -COPD, -PERIPHERAL VASCULAR DISEASE. -CARDIAC DISEASE. CHRONIC RENAL DISEASE. ANEMIA, LAST HEMOGLOBIN 9.1 ( IMPROVED AND STABLE ) Code(s): R06.09 - Other forms of dyspnea Category: Medical Plan: DYSPNEA ON EXERTION IS MINIMAL AT THIS TIME AND, HE IS ADVISED TO CONTINUE WITH PROCRIT TREATMENT HE DOES HAVE VENTOLIN INHALER ON HAND AND WILL USE THAT Q 6 HOURS ONLY P.R.N. IF HE HAS ANY WHEEZING ALONG WITH DYSPNEA. Coding Level of Care Code Est Pt Level 3 (26707) Diagnoses COPD (chronic obstructive pulmonary disease) J44.9 LEONEL (obstructive sleep apnea) G47.33 Dyspnea on minimal exertion R06.09
[2025-03-30 10:03] VITALS: BP 118/62; PULSE 77; O2SAT 97; BMI 34.4
--- OUTSIDE RECORDS SUMMARY | 2025-03-30 10:28 | XMS_ITS | Encounter Summary ---
Author Organization [employer] Address [address] [facility] 7 [place] [address] Care Team Providers Care Medical Claims Specialist Name Role Phone Ayaka Salgado MD Primary Care Provider [phone] Reason for Visit * Reason Onset Date Comments Med Refill 09/06/2024 Encounter Details Date Type Department Care Team ([facility] st Contact Info) Description 09/06/2024 Telephone [facility] MEDICINE [address] [place], [place] [id number] Ayaka Salgado MD [address] [facility] [place] [address] Med Refill Social History Tobacco Use Types [...] your housing situation today? I have haven omtt 06/30/[address] you li [...] 8:56 AM EST Medication was sent to [facility] #[id number] on 08/09/24 with 3 refills. * Telephone Encounter - Cleopatra Ortiz - 09/06/2024 8:53 AM EST TC from pt requesting medication refill. Medications needing refill : labetalol (Normodyne) 200 MG tablet To be sent to: [facility] #[id number] - [place] - [address] [facility] [address] documented in this encounter Plan of Treatment Upcoming Encounters Date Type Department Care Team ([facility] st Contact Info) Description 04/13/2025 9:00 AM EDT Clinical Support [facility] [address] [facility] [place] [address] Alana Hook, RN [address] [facility] [place] [address] documented as of this encounter Visit Diagnoses Not on filedocumented in this encounter Additional Health Concerns Assessment Noted Time PHQ-9 Depression Total Score: 7 08/29/20 22 10:26 AM EST documented as of this encounter Care Teams Medical Claims Specialist Relationship Specialty Start Date End Date Ayaka Salgado MD [address] [place] [address] PCP - General Internal Medicine 09/15/18 documented as of this encounter
--- OUTSIDE RECORDS SUMMARY | 2025-03-30 10:28 | XMS_ITS ---
Author Organization [facility] Address [address] [place] [address] Care Team Providers Care Internal Revenue Agent Name Role Phone Ayaka Salgado Primary Care Provider Transplant Episode Kidney Candidate [facility] ([place], [place]) - [facility] Evaluation began on 07/29/2024 Marked as Active on 07/29/2024 Kidney CoordinatorShima Springer RN Email: N/A Scores Score Value Updated Exceptions/Reas ons CPRA Not available EPTS (Calc) 45 03/30/2025 [place] Organ Diagnosis Organ Primary Contributory Kidney Diabetes Mellitus - Type II Care Team Name Role Phone Fax Email Shima Springer RN Kidney Coordinator [phone] N/A Ross Baldwin Referring Physician [phone] N/A Events Pre-Transplant Referred: 07/19/2024 Evaluation began: 07/29/2024 Committee: 03/09/2025
--- OUTSIDE RECORDS SUMMARY | 2025-03-30 10:28 | XMS_ITS | Encounter Summary ---
Author Organization [facility] [address] [facility] [address] [place] [address] Phone Care Team Providers Care Electronic Bench Technician Name Role Phone Jayme Salgado MD Primary Care Provider [phone] Reason for Visit * Reason Comments Med Refill Encounter Details Date Type Department Care Team (Late st Contact Info) Description 04/28/2023 Refill [facility] [address] [place] [id number] Mumtaz Childress MD [address] [facility] [address] [place] [address] Type 2 diabetes mellitus with [...] (HCC) documented in this encounter Care Teams Electronic Bench Technician Relationship Specialty Start Date End Date Jayme Salgado MD [address] [place] [address] PCP - General 09/25/20 documented as of this encounter
== END 2025-03-30 10:17 | disposition home or self-care (01) ==
LOC: HO.HPS 09:54
PROVIDERS: PCP Internal Medicine; Visit Provider Internal Medicine
DX: J44.9 Chronic obstructive pulmonary disease, unspecified (principal); G47.33 Obstructive sleep apnea (adult) (pediatric); R06.09 Other forms of dyspnea
CPT/HCPCS: 99213

== ENCOUNTER → 2025-03-30 09:54 | Outpatient (BNVA) | payer MEDICARE, SELFPAY | PROVIDERS: PCP Internal Medicine; Visit Provider Internal Medicine | DX: R06.09 Other forms of dyspnea (principal); J44.9 Chronic obstructive pulmonary disease, unspecified; G47.33 Obstructive sleep apnea (adult) (pediatric) | CPT/HCPCS: 99212 ==

== ENCOUNTER 2025-04-11 10:08 | Outpatient (AMB) | payer MEDICARE, SELFPAY ==
[2025-04-11 10:10] VITALS: BP 132/64; PULSE 69; O2SAT 98; BMI 34.1
--- NOTE | 2025-04-11 10:10 | HO.NEPHOV ---
Vital Signs 04/11/25 10:10 Height 5 ft 7 in Weight 218 lb BMI 34.1 BP 132/64 Blood Pressure Location Lt brachial Position Sitting Pulse 69 Pulse Source Pulse Oximeter Pulse Oximetry (%) 98 Oxygen Delivery Method Room Air Intake Visit Reasons: 1 MO FU-Conf Student Counsellor Required: No Accompanied by: Self / Same As Patient Allergies aspirin Adverse Reaction (Unknown, Verified 04/11/25 10:12) nose bleeds metformin Adverse Reaction (Unknown, Verified 04/11/25 10:12) hypoglycemia warfarin (From Coumadin) Adverse Reaction (Unknown, Verified 04/11/25 10:12) Nose Bleed apixaban Adverse Reaction (Verified 04/11/25 10:12) Nose Bleed clopidogrel Adverse Reaction (Verified 04/11/25 10:12) Nose Bleed Medication List - Last Reconciled 04/11/25 by Ross Baldwin MD acetaminophen (Tylenol) 650 mg PO Q6H PRN albuterol sulfate 90 mcg/actuation (Ventolin HFA) inhalation albuterol sulfate mg inhalation aspirin 81 mg PO DAILY blood-glucose meter (FreeStyle Lite Meter kit) As directed bumetanide 1 mg PO BID calcitriol 0.25 mcg PO DAILY cholecalciferol (vitamin D3) 25 mcg PO Q48H cinacalcet 30 mg PO DAILY clonidine HCl 0.2 mg PO TID clopidogrel 75 mg PO DAILY gabapentin 300 mg PO TID glimepiride 1 mg PO DAILY hydralazine 100 mg PO TID labetalol 300 mg PO BID lancets (FreeStyle Lancets) As directed lidocaine 5% 1 patch topical DAILY PRN losartan 50 mg PO DAILY melatonin 5 mg PO BEDTIME oxycodone-acetaminophen 5-325 mg 1 tab PO Q8H PRN simvastatin 20 mg PO BEDTIME sitagliptin phosphate (Januvia) 25 mg PO DAILY umeclidinium 62.5 mcg/actuation (Incruse Ellipta) 1 inh inhalation DAILY zolpidem 10 mg PO BEDTIME HPI Comments Details: 67-year-old male with a history of type 2 diabetes, HTN, CKD, carotid stenosis, COPD, LEONEL not on CPAP, diastolic CHF with preserved ejection fraction, He has advanced CKD Baseline creatinine is between 3.5 and 4.0 Currently on high dose of Bumex -Takes 1mg BID No edema No dyspnea 06/15/24 ; c/o SOB;Gained some weight/edema ;Went to [place] 06/25/24 ;After adding metolazone 2 doses and increasing Bumex to 1 mg b.i.d. he has lost about 7 lb. His breathing has improved. He feels better 07/27/24;doing much better;seen by cardiology 08/30/24 ;Dyspnea on exertion ;Weight is down by few lbs 09/13/24 ; c/o difficulty sleeping ;He has LEONEL -but does not use CPAP ; New onset A.fib - work up in progress 11/08/24: Still sOB on exertion;Seeing cardilogy today 01/25/25 69-year-old male presenting with anemia management as the primary reason for the visit. He is receiving scheduled BrReticrit injection to improve his anemia and associated hemoglobin levels. Treatment continues due to persistent anemia. The patient also experiences knee pain and self-reports episodes of respiratory discomfort which could be associated with his other underlying conditions. 02/22/25 69-year-old male presenting with anemia management as the primary reason for the visit. He is receiving scheduled Retacrit injections to improve his anemia and associated hemoglobin levels. Treatment continues due to persistent anemia. The patient also experiences knee pain and self-reports episodes of respiratory discomfort which could be associated with his other underlying conditions. Underwent watchman procedure. There is ongoing observation as he is close to requiring renal dialysis due to chronic kidney disease. The patient is aware of potential future dialysis needs but remains stable and dialysis-free at present. 03/08/25- No new issues [facility] Medical History Obesity (BMI 30-39.9) Elevated brain natriuretic peptide (BNP) level Lower extremity edema COPD (chronic obstructive pulmonary disease) LEONEL (obstructive sleep apnea) Dyspnea on minimal exertion COPD (chronic obstructive pulmonary disease) Smoker Left ventricular hypertrophy Smoking CKD (chronic kidney disease) Obesity Dyslipidemia Hypertension Diabetes mellitus Surgical History No pertinent past surgical history Family History Father No problems noted. Mother Diabetes Family/Other No problems noted. Social History Household Members: Significant Other Housing: Apartment Do you presently have visiting nurse or other home services: No Alcohol intake: current Alcohol intake frequency: a few times a month Patient Tobacco Use Status: Former Tobacco user e-Cigarette/Vaping Use: Never Used Second Hand Smoke Exposure: No Advance Directives Date on File: 08/23/22 service: No Current occupational status: disabled Physical Exam Vital Signs: Last Vital Signs Pulse 69 04/11/25 10:10 BP 132/64 04/11/25 10:10 Pulse Ox 98 04/11/25 10:10 Oxygen Delivery Method Room Air 04/11/25 10:10 BMI result Body Mass Index 34.1 Comfortable Neck supple no JVD. Lungs entry equal no rales. Heart S1-S2 heard no gallop or rub. Abdomen soft nontender. Neuro alert awake oriented. No asterixis. Extremities 2+edema. Office Meds epoetin chad-epbx 20,000 unit/mL injection solution Performing Provider: Ross Baldwin MD [facility] Administered by: Ross Baldwin MD on 04/11/25 10:21 Dose Route Admin Location Dispensed Lot Number Expiration Date [facility] Sorter Packer 20,000 unit subcut right arm 1 mL [id number] 11/12/26 6046-6022-85 [employer] [facility] Total Dispensed Waste 1 mL 0 % Results Reviewed Nephrology Results: Hgb, (14.0-18.0) 9.1 g/dl L 03/28/25 WBC, (4.8-10.8) 5.2 X10*3/uL 03/28/25 Plt Count, (160-400) 167 X10*3/uL 03/28/25 Sodium, (135-145) 141 mmol/L 03/28/25 Potassium, (3.3-5.1) 4.6 mmol/L 03/28/25 Chloride, (96-108) 107 mmol/L 03/28/25 Carbon Dioxide, (22-29) 25 mmol/L 03/28/25 BUN, (9-16) 57 mg/dL H 03/28/25 Creatinine, (0.5-1.4) 4.91 mg/dL H* 03/28/25 Calcium, (8.4-10.2) 10.2 mg/dL 03/28/25 Phosphorus, (2.7-4.5) 4.9 mg/dL H 03/07/25 PTH Intact, (8.7-77.1) 522.0 pg/mL H 03/07/25 Assessment & Plan Assessment & Plan (1) Anemia: Code(s): D64.9 - Anemia, unspecified Category: Medical Plan: Adminstered Retacrit 15574 U sq (2) CKD (chronic kidney disease) stage 5, GFR less than 15 ml/min: Code(s): N18.5 - Chronic kidney disease, stage 5 Category: Medical Plan: Renal fx unchanged eGFR between 10 and 12 ml/mt since Sep 2024 No s/s or uremia or fluid overload today (3) Essential hypertension: Code(s): I10 - Essential (primary) hypertension Category: Medical Plan: BP appears controlled. We discussed weight loss and low-salt diet again. (4) Chronic diastolic congestive heart failure: Code(s): I50.32 - Chronic diastolic (congestive) heart failure Category: Medical Plan: Compensated. Follows with cardiology. (5) Type 2 diabetes mellitus with unspecified complications: Code(s): E11.8 - Type 2 diabetes mellitus with unspecified complications Category: Medical (6) Obesity (BMI 30-39.9): Code(s): E66.9 - Obesity, unspecified Category: Medical Plan: Discussed weight loss. (7) Hyperparathyroidism: Code(s): E21.3 - Hyperparathyroidism, unspecified Category: Medical Plan: He is currently on cinacalcet and Rocaltrol. Cinacalcet on hold since 11/08/24) Repeat Ca is normal Follow PTH Restarted Cinacalcet ( PTH was 525) Plan Referred to dialysis education program. He will be a good candidate for CCPD Discussed pre-emptive transplant Referred to [facility] - seen in Nov Work up in progress Orders: Orders AMB Epoetin Injection Practice Supplied Today N40.1 - Benign prostatic hyperplasia with lower urinary tract symptoms Coding Level of Care Code Est Pt Level 4 (73019) Diagnoses Anemia D64.9 CKD (chronic kidney disease) stage 5, GFR less than 15 ml/min N18.5 Essential hypertension I10 Chronic diastolic congestive heart failure I50.32 Type 2 diabetes mellitus with unspecified complications E11.8 Obesity (BMI 30-39.9) E66.9 Hyperparathyroidism E21.3
--- OUTSIDE RECORDS SUMMARY | 2025-04-11 11:10 | XMS_ITS | Encounter Summary ---
Author Organization [employer] Address [address] [facility] 7 [place] [address] Care Team Providers Care Fiction Writer Name Role Phone Ayaka Salgado MD Primary Care Provider [phone] Reason for Visit * Reason Onset Date Comments Med Refill 09/06/2024 Encounter Details Date Type Department Care Team ([facility] st Contact Info) Description 09/06/2024 Telephone [facility] MEDICINE [address], [place] [phone] Ayaka Salgado MD [address] [facility] [place] [id number] Med Refill Social History Tobacco Use Types [...] 8:56 AM EST Medication was sent to [email or web address] #[id number] on 08/09/24 with 3 refills. * Telephone Encounter - Cleopatra Ortiz - 09/06/2024 8:53 AM EST TC from pt requesting medication refill. Medications needing refill : labetalol (Normodyne) 200 MG tablet To be sent to: [facility] #[id number] - [place] - [address] [facility] [address] documented in this encounter Plan of Treatment Upcoming Encounters Date Type Department Care Team ([facility] st Contact Info) Description 04/13/2025 9:00 AM EDT Clinical Support [facility] MED & PEDS [address] [facility] [place] [address] Alana Hook, RN [address] [facility] [place] [id number] documented as of this encounter Visit Diagnoses Not on filedocumented in this encounter Additional Health Concerns Assessment Noted Time PHQ-9 Depression Total Score: 7 08/29/20 22 10:26 AM EST documented as of this encounter Care Teams Fiction Writer Relationship Specialty Start Date End Date Ayaka Salgado MD [address] [place] [address] PCP - General Internal Medicine 09/15/18 documented as of this encounter
--- OUTSIDE RECORDS SUMMARY | 2025-04-11 11:10 | XMS_ITS | Encounter Summary ---
Author Organization [facility] [address] [facility] [address] [place] [address] Phone Care Team Providers Care Director Style Name Role Phone Jayme Salgado MD Primary Care Provider [phone] Reason for Visit * Reason Comments Med Refill Encounter Details Date Type Department Care Team (Late st Contact Info) Description 04/28/2023 Refill [facility] [address] [place] [phone] Mumtaz Childress MD [address] [facility] [address] [place] [address] Type 2 diabetes mellitus with [...] (HCC) documented in this encounter Care Teams Director Style Relationship Specialty Start Date End Date Jayme Salgado MD [address] [place] [address] PCP - General 09/25/20 documented as of this encounter
--- OUTSIDE RECORDS SUMMARY | 2025-04-11 11:10 | XMS_ITS ---
Author Organization [facility] Address [address] [place] [address] Care Team Providers Care Window Glass Installer Name Role Phone Ayaka Salgado Primary Care Provider Transplant Episode Kidney Candidate [facility] ([place], [place]) - [facility] Evaluation began on 07/29/2024 Marked as Active on 07/29/2024 Kidney CoordinatorShima Springer RN Email: N/A Scores Score Value Updated Exceptions/Reas ons CPRA Not available EPTS (Calc) 45 04/11/2025 [place] Organ Diagnosis Organ Primary Contributory Kidney Diabetes Mellitus - Type II Care Team Name Role Phone Fax Email Shima Springer RN Kidney Coordinator [phone] N/A Ross Baldwin Referring Physician [phone] N/A Events Pre-Transplant Referred: 07/19/2024 Evaluation began: 07/29/2024 Committee: 03/09/2025
== END 2025-04-11 10:24 | disposition home or self-care (01) ==
PROVIDERS: PCP Internal Medicine; Visit Provider Internal Medicine Hypertension Specialist
DX: D64.9 Anemia, unspecified (principal); N18.5 Chronic kidney disease, stage 5; I12.0 Hypertensive chronic kidney disease with stage 5 chronic kidney disease or end stage renal disease; I50.32 Chronic diastolic (congestive) heart failure; E11.8 Type 2 diabetes mellitus with unspecified complications; E66.9 Obesity, unspecified; E21.3 Hyperparathyroidism, unspecified; N40.1 Benign prostatic hyperplasia with lower urinary tract symptoms
CPT/HCPCS: 99214

== ENCOUNTER → 2025-04-11 10:08 | Outpatient (BNVA) | payer MEDICARE, SELFPAY | PROVIDERS: PCP Internal Medicine; Visit Provider Internal Medicine Hypertension Specialist | DX: I13.2 Hypertensive heart and chronic kidney disease with heart failure and with stage 5 chronic kidney disease, or end stage renal disease (principal); D63.1 Anemia in chronic kidney disease; E11.22 Type 2 diabetes mellitus with diabetic chronic kidney disease; I50.32 Chronic diastolic (congestive) heart failure; N18.5 Chronic kidney disease, stage 5; E11.8 Type 2 diabetes mellitus with unspecified complications; E66.9 Obesity, unspecified; E21.3 Hyperparathyroidism, unspecified | CPT/HCPCS: 96372; 99212; Q5106 ==

== ENCOUNTER → 2025-04-12 23:59 | Outpatient (BNV) | payer MEDICARE, SELFPAY ==
--- NOTE | 2025-04-22 17:30 | A.OFFVIS_ITS ---
Intake Visit Reasons: Remote Cardiomems- St Jr Allergies aspirin Adverse Reaction (Unknown, Verified 04/11/25 10:12) nose bleeds metformin Adverse Reaction (Unknown, Verified 04/11/25 10:12) hypoglycemia warfarin (From Coumadin) Adverse Reaction (Unknown, Verified 04/11/25 10:12) Nose Bleed apixaban Adverse Reaction (Verified 04/11/25 10:12) Nose Bleed clopidogrel Adverse Reaction (Verified 04/11/25 10:12) Nose Bleed [facility] Medical History Obesity (BMI 30-39.9) Elevated brain natriuretic peptide (BNP) level Lower extremity edema COPD (chronic obstructive pulmonary disease) LEONEL (obstructive sleep apnea) Dyspnea on minimal exertion COPD (chronic obstructive pulmonary disease) Smoker Left ventricular hypertrophy Smoking CKD (chronic kidney disease) Obesity Dyslipidemia Hypertension Diabetes mellitus Surgical History No pertinent past surgical history Family History Father No problems noted. Mother Diabetes Family/Other No problems noted. Social History Household Members: Significant Other Housing: Apartment Do you presently have visiting nurse or other home services: No Alcohol intake: current Alcohol intake frequency: a few times a month Patient Tobacco Use Status: Former Tobacco user e-Cigarette/Vaping Use: Never Used Second Hand Smoke Exposure: No Advance Directives Date on File: 08/23/22 service: No Current occupational status: disabled Office Procedures Cardiac Device Check Cardiac Device Check Details: Monitoring period dates: 02/23/25 - 04/12/25 Optimal PA pressure range: PAD goal 16mmhg Procedure code: 14498 BACKGROUND: Lewis is implanted with the CardioMEMS PA Sensor.? I use this technology to monitor PA pressures on a weekly basis to ensure patients are within their optimal range to prevent decompensation.? SUMMARY:? I utilized the remote monitoring platform ([employer]) to set optimal targets for pulmonary artery pressure thresholds as part of acute and chronic management of patient?s heart failure. During the period indicated above, I monitored the patient?s pulmonary artery pressures weekly via trend analysis and notification reports which provide alerts when patient?s PA pressures were outside of range to prompt immediate action in medication changes and communications.? The weekly reports are archived in the [employer] system which serve as a parallel record to document weekly PA pressures, medication changes, and clinical notes. I have reviewed readings on 02/25, 03/04, 03/11, 03/17, 03/25, 04/01, 04/08. Readings have ranged between 16-25mmhg. He has advanced CKD and no diuretic changes were made. No significant changes in the last month. 59687 - Remote monitoring of wireless pulmonary artery pressure sensor Procedure code (CPT) selection complete Assessment & Plan Assessment & Plan (1) Presence of CardioMEMS HF system: Code(s): Z95.818 - Presence of other cardiac implants and grafts Category: Medical Plan: monthly report Coding Level of Care Code Procedure Only Diagnoses Presence of CardioMEMS HF system Z95.818 CPT Codes Cardiac Device Check - Cardiac Device 17: 04990 - Remote monitoring of wireless pulmonary artery pressure sensor ([id number])
== END ==
PROVIDERS: PCP Internal Medicine; Visit Provider Nurse Practitioner Family
DX: Z45.09 Encounter for adjustment and management of other cardiac device (principal)
CPT/HCPCS: 93264

== ENCOUNTER 2025-04-26 08:14 | Outpatient (AMB) | payer MEDICARE, SELFPAY ==
--- OUTSIDE RECORDS SUMMARY | 2025-04-26 08:22 | XMS_ITS | Encounter Summary ---
Author Organization [employer] Address [address] [facility] 7 [place] [address] Care Team Providers Care Mercerizing Range Feeder Name Role Phone Ayaka Salgado MD Primary Care Provider [phone] Reason for Visit * Reason Onset Date Comments Med Refill 09/06/2024 Encounter Details Date Type Department Care Team ([facility] st Contact Info) Description 09/06/2024 Telephone [facility] MEDICINE [address] [place], [place] [phone] Ayaka Salgado MD [address] [facility] [place] [phone] Med Refill Social History Tobacco Use Types [...] 8:56 AM EST Medication was sent to [facility] #[id number] on 08/09/24 with 3 refills. * Telephone Encounter - Cleopatra Ortiz - 09/06/2024 8:53 AM EST TC from pt requesting medication refill. Medications needing refill : labetalol (Normodyne) 200 MG tablet To be sent to: [facility] #[id number] - [place] - [address] [facility] [address] documented in this encounter Plan of Treatment Upcoming Encounters Date Type Department Care Team ([facility] st Contact Info) Description 05/31/2025 9:00 AM EDT Clinical Support [facility] MED & PEDS [address] [facility] [place] [address] Alana Hook, RN [address] [facility] [place] [address] documented as of this encounter Visit Diagnoses Not on filedocumented in this encounter Additional Health Concerns Assessment Noted Time PHQ-9 Depression Total Score: 7 08/29/20 22 10:26 AM EST documented as of this encounter Care Teams Mercerizing Range Feeder Relationship Specialty Start Date End Date Ayaka Salgado MD [address] [place] [address] PCP - General Internal Medicine 09/15/18 documented as of this encounter
--- OUTSIDE RECORDS SUMMARY | 2025-04-26 08:22 | XMS_ITS ---
Author Organization [facility] Address [address] [place] [address] Care Team Providers Care Foundation Digger Name Role Phone Ayaka Salgado Primary Care Provider Transplant Episode Kidney Candidate [facility] ([place], [place]) - [facility] Evaluation began on 07/29/2024 Marked as Active on 07/29/2024 Kidney CoordinatorShima Springer RN Email: N/A Scores Score Value Updated Exceptions/Reas ons CPRA Not available EPTS (Calc) 45 04/26/2025 [place] Organ Diagnosis Organ Primary Contributory Kidney Diabetes Mellitus - Type II Care Team Name Role Phone Fax Email Shima Springer RN Kidney Coordinator [phone] N/A Ross Baldwin Referring Physician [phone] N/A Events Pre-Transplant Referred: 07/19/2024 Evaluation began: 07/29/2024 Committee: 03/09/2025
--- OUTSIDE RECORDS SUMMARY | 2025-04-26 08:22 | XMS_ITS | Encounter Summary ---
Author Organization [facility] [address] [facility] [address] [place] [address] Phone Care Team Providers Care Rn Orthopedic Name Role Phone Jayme Salgado MD Primary Care Provider [phone] Reason for Visit * Reason Comments Med Refill Encounter Details Date Type Department Care Team (Late st Contact Info) Description 04/28/2023 Refill [facility] [address] [place] [phone] Mumtaz Childress MD [address] [facility] [address] [place] [address] Type 2 diabetes mellitus with [...] (HCC) documented in this encounter Care Teams Rn Orthopedic Relationship Specialty Start Date End Date Jayme Salgado MD [address] [place] [address] PCP - General 09/25/20 documented as of this encounter
--- NOTE | 2025-04-26 08:33 | A.OFFVIS_ITS ---
Vital Signs 04/26/25 08:34 Height 5 ft 7 in Weight 212 lb 15.465 oz BMI 33.4 BP 114/62 Blood Pressure Location Lt brachial Position Sitting Pulse 56 Pulse Source Monitor Intake Visit Reasons: 3m follow up Personal Lines Account Executive Required: No Allergies aspirin Adverse Reaction (Unknown, Verified 04/26/25 08:37) nose bleeds metformin Adverse Reaction (Unknown, Verified 04/26/25 08:37) hypoglycemia warfarin (From Coumadin) Adverse Reaction (Unknown, Verified 04/26/25 08:37) Nose Bleed apixaban Adverse Reaction (Verified 04/26/25 08:37) Nose Bleed clopidogrel Adverse Reaction (Verified 04/26/25 08:37) Nose Bleed Medication List - Last Reconciled 04/26/25 by ANU Gonzalez acetaminophen (Tylenol) 650 mg PO Q6H PRN albuterol sulfate 90 mcg/actuation (Ventolin HFA) inhalation albuterol sulfate mg inhalation aspirin 81 mg PO DAILY blood-glucose meter (FreeStyle Lite Meter kit) As directed bumetanide 1 mg PO BID calcitriol 0.25 mcg PO DAILY cholecalciferol (vitamin D3) 25 mcg PO Q48H cinacalcet 30 mg PO DAILY clonidine HCl 0.2 mg PO TID clopidogrel 75 mg PO DAILY gabapentin 300 mg PO TID glimepiride 1 mg PO DAILY hydralazine 100 mg PO TID labetalol 300 mg PO BID lancets (FreeStyle Lancets) As directed lidocaine 5% 1 patch topical DAILY PRN losartan 50 mg PO DAILY melatonin 5 mg PO BEDTIME oxycodone-acetaminophen 5-325 mg 1 tab PO Q8H PRN simvastatin 20 mg PO BEDTIME sitagliptin phosphate (Januvia) 25 mg PO DAILY umeclidinium 62.5 mcg/actuation (Incruse Ellipta) 1 inh inhalation DAILY zolpidem 10 mg PO BEDTIME HPI HPI 3m follow up: Details: Lewis is a 69-year-old male with past medical? history of obesity, hypertension, diabetes, chronic kidney disease, smoking, first-degree AV block, right bundle branch block, obstructive sleep apnea, diastolic heart failure, s/p CardioMEMS device, newer persistant atrial fibrillation, s/p watchman device who presents for follow-up. Today he reports he still has some fatigue, general weakness with activity. He he tries to remain active but has been more sedentary overall. His breathing and leg swelling has been better in recent weeks. He denies PND, orthopnea. No chest discomfort at rest or with activity. No lightheadedness, presyncope, syncope, falls. 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 He has be en taking meds as directed. He is tolerating the aspirin and plavix post watchman. In the past he has had significant epistaxis as well as rectal bleeding with anticoagulation. He follows closely with Nephrology and is hoping to prevent future hemodialysis. He prefers to have renal transplant and has been to [facility] once for evaluation. His next visit is scheduled for July. [facility] Medical History Obesity (BMI 30-39.9) Elevated brain natriuretic peptide (BNP) level Lower extremity edema COPD (chronic obstructive pulmonary disease) LEONEL (obstructive sleep apnea) Dyspnea on minimal exertion COPD (chronic obstructive pulmonary disease) Smoker Left ventricular hypertrophy Smoking CKD (chronic kidney disease) Obesity Dyslipidemia Hypertension Diabetes mellitus Surgical History No pertinent past surgical history Family History Father No problems noted. Mother Diabetes Family/Other No problems noted. Social History Household Members: Significant Other Housing: Apartment Do you presently have visiting nurse or other home services: No Alcohol intake: current Alcohol intake frequency: a few times a month Patient Tobacco Use Status: Former Tobacco user e-Cigarette/Vaping Use: Never Used Second Hand Smoke Exposure: No Advance Directives Date on File: 08/23/22 service: No Current occupational status: disabled Review of Systems Const All systems reviewed & are unremarkable except as noted in HPI and below Reports fatigue ENT Denies dizziness Card Denies chest pain, Denies chest pain at rest, Denies chest pain with activity, Denies rapid heart rate, Denies pedal edema, Denies edema, Denies leg edema, Denies lightheadedness, Denies palpitations, Denies dyspnea, Denies dyspnea on exertion and Denies orthopnea Resp Denies cough, Denies dyspnea and Denies dyspnea on exertion GI Denies hematochezia and Denies change in stool character Musc Denies abnormal gait, Denies limited range of motion, Denies muscle cramps, Denies muscle weakness, Denies numbness, Denies radiating pain into limb, Denies stiffness and Denies tingling Neuro Denies abnormal gait, Denies dizziness, Denies numbness and Denies tingling Endo Reports fatigue and Denies palpitations Physical Exam Vital Signs: Last Vital Signs Pulse 56 04/26/25 08:34 BP 114/62 04/26/25 08:34 BMI result Body Mass Index 33.4 Const General: cooperative, healthy appearing, comfortable and no acute distress Orientation/consciousness: patient oriented x3 Neck Neck: Yes normal visual inspection Resp Effort & Inspection: normal respiratory effort Auscultation: clear to auscultation bilaterally, no rales, no rhonchi and no wheezes Cardio Rate: regular rate Rhythm: regular rhythm Heart sounds: S1 normal heart sound present, S2 normal heart sound present, no murmurs and no rubs Peripheral pulses: Peripheral pulses 2+ throughout Neuro General: patient oriented x3 Extrem Other: Trace lower leg edema Psych Appearance: grossly normal Mental Status: mental status grossly normal Speech and movement: Normal speech and movement present Office Procedures EKG Details: Today, read by me, atrial fibrillation with slow ventricular response, left axis, RBBB, rate 56 56370-[id number], Complete Assessment & Plan Assessment & Plan (1) Acute exacerbation of CHF (congestive heart failure): Code(s): I50.9 - Heart failure, unspecified Category: Medical Plan: History of heart failure with preserved EF. Last hospital admission with acute heart failure was September 2022. Last nuclear stress test on 09/26/2022 showing no infarct or ischemia. Since then he had a CardioMEMS device placed. Compliant with his readings and PA readings are followed remotely. He has known advanced chronic kidney disease and follows closely with Nephrology who adjusts diuretics if needed. His most recent CardioMEMS readings have been elevated but stable. His diuretics are adjusted as needed by Nephrology. His labs from 03/28/2025 show creatinine 4.91. He is being evaluated at [facility] for renal transplant list. He has not started dialysis as of yet and is hoping to avoid it as long as possible. Currently his heart failure symptoms have been stable, NYHA class 2. He continues on Bumex 1 mg b.i.d. Reviewed signs and symptoms of heart failure with him. If having concerning symptoms instructed to notify either Nephrology or this office. No med changes made at this time. (2) Afib: Code(s): I48.91 - Unspecified atrial fibrillation Category: Medical Plan: Newer finding of atrial fibrillation which has been persistent, asymptomatic. Echo done 09/22/2024 EF 59%, left atrium severely dilated, gwfn-ya-[id number] MR, nzdy-yw-ktafhwfj TR, mild pulmonary hypertension (AFib identified at that time.) His heart rate was controlled and he was continued on his usual labetalol. He did undergo a Holter monitor 09/24/24 for 3 days showing a fib, average rate 62, frequent PVCs 4.6% of the time with up to 6 beat run. Chads Vasc score of 3. Anticoagulation was indicated however due to significant anemia, likely anemia of chronic disease and that he dclined anticoagulation use due to history of b leeding, it was not used. He underwent Watchman device placement 02/02/25. He reports having what sounds like a ZION since then - will work on obtaining that report. If ZION completed, will check with his primary programmer engineering and scientific about possible CVR or continue with rate control. EKG today afib RBBB, rate 56. His labetalol dose was recently increased by PCP from 400 mg b.i.d. down to 300 mg b.i.d.. Continue aspirin and Plavix. No med changes made at this time. (3) Essential hypertension: Code(s): I10 - Essential (primary) hypertension Category: Medical Plan: Blood pressure goal less than 130/80. Well controlled currently. He continues on hydralazine, labetalol, Bumex, clonidine. No med changes made. (4) Carotid stenosis: Code(s): I65.29 - Occlusion and stenosis of unspecified carotid artery Category: Medical Qualifiers: Laterality: left Qualified Code(s): I65.22 - Occlusion and stenosis of left carotid artery Plan: Known history of moderate carotid stenosis. Follows with Dr. Mcfadden for vascular. Continue statin. (5) RBBB: Code(s): I45.10 - Unspecified right bundle-branch block Category: Medical Plan: Present on EKGs, no change (6) Presence of CardioMEMS HF system: Code(s): Z95.818 - Presence of other cardiac implants and grafts Category: Medical Plan: Monthly reports submitted. Discussed readings with patient today. (7) COPD (chronic obstructive pulmonary disease): Comment: Patient does have moderately severe obstructive airway disorder, no evidence of positive response to bronchodilator therapy. Remains stable and does not need to use the rescue inhaler. Code(s): J44.9 - Chronic obstructive pulmonary disease, unspecified Category: Medical Plan: Followed by pulmonology (8) Presence of Watchman left atrial appendage closure device: Comment: 02/02/25 [facility] Code(s): Z95.818 - Presence of other cardiac implants and grafts Category: Medical Plan I discussed with the patient the current management of atrial fibrillation, including the use of labetalol for rate control and the potential for cardioversion if deemed necessary by Dr. Kim. We reviewed the plan to remain on clopidogrel and aspirin for six months following Watchman device placement, with plans to discontinue clopidogrel thereafter. I advised the patient to monitor for signs of fluid retention and to continue regular cardiomems readings to track fluid status. Patient Instructions: - Continue taking labetalol as prescribed for atrial fibrillation. - Follow up with Dr. Kim for potential cardioversion discussion. - Remain on clopidogrel and aspirin for six months, then discontinue clopidogrel. - Monitor for fluid retention and report any changes in breathing or swelling. - Perform cardiomems readings regularly to track fluid status. Patient was informed and verbally consented to the use of an ambient scribe for clinic note documentation during this visit. Visit time spent on chart review, interview, assessment, orders, documentation. Coding Level of Care Code Est Pt Level 4 (29227) Complex EM visit Add On G2211 Diagnoses Acute exacerbation of CHF (congestive heart failure) I50.9 Afib I48.91 Essential hypertension I10 Stenosis of left carotid artery I65.22 Laterality: left RBBB I45.10 Presence of CardioMEMS HF system Z95.818 COPD (chronic obstructive pulmonary disease) J44.9 Presence of Watchman left atrial appendage closure device Z95.818 CPT Codes EKG - CPT: 88205-[id number], Complete ([id number]) Time Spent (min) 32
[2025-04-26 08:34] VITALS: BP 114/62; PULSE 56; BMI 33.4
== END 2025-04-26 09:07 | disposition home or self-care (01) ==
LOC: HO.HCS 08:15
PROVIDERS: PCP Internal Medicine; Visit Provider Nurse Practitioner Family
DX: I50.9 Heart failure, unspecified (principal); I48.91 Unspecified atrial fibrillation; I10 Essential (primary) hypertension; I65.22 Occlusion and stenosis of left carotid artery; I45.10 Unspecified right bundle-branch block; Z95.818 Presence of other cardiac implants and grafts; J44.9 Chronic obstructive pulmonary disease, unspecified
CPT/HCPCS: 93010; 99214; G2211

== ENCOUNTER → 2025-04-26 08:14 | Outpatient (BNVA) | payer MEDICARE, SELFPAY | PROVIDERS: PCP Internal Medicine; Visit Provider Nurse Practitioner Family | DX: I11.0 Hypertensive heart disease with heart failure (principal); I50.9 Heart failure, unspecified; I48.91 Unspecified atrial fibrillation; I45.10 Unspecified right bundle-branch block; I65.22 Occlusion and stenosis of left carotid artery; J44.9 Chronic obstructive pulmonary disease, unspecified; R94.31 Abnormal electrocardiogram [ECG] [EKG]; Z95.818 Presence of other cardiac implants and grafts | CPT/HCPCS: 93005; 99212 ==

== ENCOUNTER 2025-05-02 08:16 | Outpatient (REF) | payer MEDICARE, SELFPAY ==
--- OUTSIDE RECORDS SUMMARY | 2025-05-02 08:35 | XMS_ITS | Encounter Summary ---
Author Organization [facility] [address] [place] [address] Phone Care Team Providers Care Generating Station Mechanic Name Role Phone Jayme Salgado MD Primary Care Provider [phone] Reason for Visit * Reason Comments Med Refill Encounter Details Date Type Department Care Team (Late st Contact Info) Description 04/28/2023 Refill [facility] [address] [place] [phone] Mumtaz Childress MD [address] [facility] [address] [place] [address] Type 2 diabetes mellitus with [...] (HCC) documented in this encounter Care Teams Generating Station Mechanic Relationship Specialty Start Date End Date Jayme Salgado MD [address] [place] [address] PCP - General 09/25/20 documented as of this encounter
--- OUTSIDE RECORDS SUMMARY | 2025-05-02 08:35 | XMS_ITS ---
Author Organization [facility] Address [address] [place] [address] Care Team Providers Care Postmaster Name Role Phone Ayaka Salgado Primary Care Provider [phone] Transplant Episode Kidney Candidate [facility] ([place], [place]) - [facility] Evaluation began on 07/29/2024 Marked as Active on 07/29/2024 Kidney CoordinatorShima Springer RN Email: N/A Scores Score Value Updated Exceptions/Reas ons CPRA Not available EPTS (Calc) 45 05/02/2025 Cheesh-Na Organ Diagnosis Organ Primary Contributory Kidney Diabetes Mellitus - Type II Care Team Name Role Phone Fax Email Shima Springer RN Kidney Coordinator [phone] N/A Ross Baldwin Referring Physician [phone] N/A Events Pre-Transplant Referred: 07/19/2024 Evaluation began: 07/29/2024 Committee: 03/09/2025
--- OUTSIDE RECORDS SUMMARY | 2025-05-02 08:35 | XMS_ITS | Encounter Summary ---
Author Organization [employer] Address [address] [facility] 7 [place] [address] Care Team Providers Care Hoe Runner Name Role Phone Ayaka Salgado MD Primary Care Provider [phone] Reason for Visit * Reason Onset Date Comments Med Refill 09/06/2024 Encounter Details Date Type Department Care Team ([facility] st Contact Info) Description 09/06/2024 Telephone [facility] MEDICINE [address] [place], [place] [phone] Ayaka Salgado MD [address] [facility] [place] [id number] Med Refill Social History Tobacco Use Types [...] 8:56 AM EST Medication was sent to [facility] #[id number] on 08/09/24 with 3 refills. * Telephone Encounter - Cleopatra Ortiz - 09/06/2024 8:53 AM EST TC from pt requesting medication refill. Medications needing refill : labetalol (Normodyne) 200 MG tablet To be sent to: [id number] - [place] - [address] [facility] [address] documented in this encounter Plan of Treatment Upcoming Encounters Date Type Department Care Team ([facility] st Contact Info) Description 05/31/2025 9:00 AM EDT Clinical Support [facility] [address] [facility] [place] [address] Alana Hook, RN [address] [facility] [place] [phone] documented as of this encounter Visit Diagnoses Not on filedocumented in this encounter Additional Health Concerns Assessment Noted Time PHQ-9 Depression Total Score: 7 08/29/20 22 10:26 AM EST documented as of this encounter Care Teams Hoe Runner Relationship Specialty Start Date End Date Ayaka Salgado MD [address] [place] [address] PCP - General Internal Medicine 09/15/18 documented as of this encounter
[2025-05-02 14:43] LABS: Parathyroid Hormone Intact 512.6 pg/mL (8.7-77.1)
== END 2025-05-02 08:17 | disposition home or self-care (01) ==
LOC: HO.CHCLDS 08:16
PROVIDERS: Visit Provider Internal Medicine Hypertension Specialist
DX: N18.5 Chronic kidney disease, stage 5 (principal)
CPT/HCPCS: 36415; 83970; 84100

== ENCOUNTER 2025-05-03 10:12 | Outpatient (AMB) | payer MEDICARE, SELFPAY ==
[2025-05-03 10:14] VITALS: BP 110/52; PULSE 66; O2SAT 96; BMI 33.7
--- NOTE | 2025-05-03 10:14 | HO.NEPHOV_ITS ---
Vital Signs 05/03/25 10:14 Height 5 ft 7 in Weight 215 lb BMI 33.7 BP 110/52 L Blood Pressure Location Lt brachial Position Sitting Pulse 66 Pulse Source Pulse Oximeter Pulse Oximetry (%) 96 Oxygen Delivery Method Room Air Intake Visit Reasons: 1mon Retacrit f/u w/labs Band Saw Operator Required: No Accompanied by: Self / Same As Patient Allergies aspirin Adverse Reaction (Unknown, Verified 05/03/25 10:19) nose bleeds metformin Adverse Reaction (Unknown, Verified 05/03/25 10:19) hypoglycemia warfarin (From Coumadin) Adverse Reaction (Unknown, Verified 05/03/25 10:19) Nose Bleed apixaban Adverse Reaction (Verified 05/03/25 10:19) Nose Bleed clopidogrel Adverse Reaction (Verified 05/03/25 10:19) Nose Bleed Medication List - Last Reconciled 05/03/25 by Ross Baldwin MD acetaminophen (Tylenol) 650 mg PO Q6H PRN albuterol sulfate 90 mcg/actuation (Ventolin HFA) inhalation albuterol sulfate mg inhalation aspirin 81 mg PO DAILY blood-glucose meter (FreeStyle Lite Meter kit) As directed bumetanide 1 mg PO BID calcitriol 0.25 mcg PO DAILY cholecalciferol (vitamin D3) 25 mcg PO Q48H cinacalcet 30 mg PO DAILY clonidine HCl 0.2 mg PO TID clopidogrel 75 mg PO DAILY gabapentin 300 mg PO TID glimepiride 1 mg PO DAILY hydralazine 100 mg PO TID labetalol 300 mg PO BID lancets (FreeStyle Lancets) As directed lidocaine 5% 1 patch topical DAILY PRN losartan 50 mg PO DAILY melatonin 5 mg PO BEDTIME oxycodone-acetaminophen 5-325 mg 1 tab PO Q8H PRN simvastatin 20 mg PO BEDTIME sitagliptin phosphate (Januvia) 25 mg PO DAILY umeclidinium 62.5 mcg/actuation (Incruse Ellipta) 1 inh inhalation DAILY zolpidem 10 mg PO BEDTIME HPI Comments Details: 67-year-old male with a history of type 2 diabetes, HTN, CKD, carotid stenosis, COPD, LEONEL not on CPAP, diastolic CHF with preserved ejection fraction, He has advanced CKD Baseline creatinine is between 3.5 and 4.0 Currently on high dose of Bumex -Takes 1mg BID No edema No dyspnea 10/1/24 ; c/o SOB;Gained some weight/edema ;Went to [facility] 06/25/24 ;After adding metolazone 2 doses and increasing Bumex to 1 mg b.i.d. he has lost about 7 lb. His breathing has improved. He feels better 07/27/24;doing much better;seen by cardiology 08/30/24 ;Dyspnea on exertion ;Weight is down by few lbs 09/13/24 ; c/o difficulty sleeping ;He has LEONEL -but does not use CPAP ; New onset A.fib - work up in progress 11/08/24: Still sOB on exertion;Seeing cardilogy today 01/25/25 69-year-old male presenting with anemia management as the primary reason for the visit. He is receiving scheduled BrReticrit injection to improve his anemia and associated hemoglobin levels. Treatment continues due to persistent anemia. The patient also experiences knee pain and self-reports episodes of respiratory discomfort which could be associated with his other underlying conditions. 02/22/25 69-year-old male presenting with anemia management as the primary reason for the visit. He is receiving scheduled Retacrit injections to improve his anemia and associated hemoglobin levels. Treatment continues due to persistent anemia. The patient also experiences knee pain and self-reports episodes of respiratory discomfort which could be associated with his other underlying conditions. Underwent watchman procedure. There is ongoing observation as he is close to requiring renal dialysis due to chronic kidney disease. The patient is aware of potential future dialysis needs but remains stable and dialysis-free at present. 03/08/25- No new issues [facility] Medical History Obesity (BMI 30-39.9) Elevated brain natriuretic peptide (BNP) level Lower extremity edema COPD (chronic obstructive pulmonary disease) LEONEL (obstructive sleep apnea) Dyspnea on minimal exertion COPD (chronic obstructive pulmonary disease) Smoker Left ventricular hypertrophy Smoking CKD (chronic kidney disease) Obesity Dyslipidemia Hypertension Diabetes mellitus Surgical History No pertinent past surgical history Family History Father No problems noted. Mother Diabetes Family/Other No problems noted. Social History Household Members: Significant Other Housing: Apartment Do you presently have visiting nurse or other home services: No Alcohol intake: current Alcohol intake frequency: a few times a month Patient Tobacco Use Status: Former Tobacco user e-Cigarette/Vaping Use: Never Used Second Hand Smoke Exposure: No Advance Directives Date on File: 08/23/22 service: No Current occupational status: disabled Physical Exam Vital Signs: Last Vital Signs Pulse 66 05/03/25 10:14 BP 110/52 L 05/03/25 10:14 Pulse Ox 96 05/03/25 10:14 Oxygen Delivery Method Room Air 05/03/25 10:14 BMI result Body Mass Index 33.7 Comfortable Neck supple no JVD. Lungs entry equal no rales. Heart S1-S2 heard no gallop or rub. Abdomen soft nontender. Neuro alert awake oriented. No asterixis. Extremities 2+edema. Office Meds epoetin chad-epbx 20,000 unit/mL injection solution Performing Provider: Ross Baldwin MD [place] [facility] [place] [facility] Administered by: Ross Baldwin MD on 05/03/25 10:26 Dose Route Admin Location Dispensed Lot Number Expiration Date [facility] Title Attorney 20,000 unit subcut right ue 1 mL [id number] 11/12/26 4888-4637-55 [employer]FI[employer] Total Dispensed Waste 1 mL 0 % Results Reviewed Nephrology Results: Hgb, (14.0-18.0) 9.1 g/dl L 03/28/25 WBC, (4.8-10.8) 5.2 X10*3/uL 03/28/25 Plt Count, (160-400) 167 X10*3/uL 03/28/25 Sodium, (135-145) 141 mmol/L 03/28/25 Potassium, (3.3-5.1) 4.6 mmol/L 03/28/25 Chloride, (96-108) 107 mmol/L 03/28/25 Carbon Dioxide, (22-29) 25 mmol/L 03/28/25 BUN, (9-16) 57 mg/dL H 03/28/25 Creatinine, (0.5-1.4) 4.91 mg/dL H* 03/28/25 Calcium, (8.4-10.2) 10.2 mg/dL 03/28/25 Phosphorus, (2.7-4.5) 5.6 mg/dL H 05/02/25 PTH Intact, (8.7-77.1) 512.6 pg/mL H 05/02/25 Assessment & Plan Assessment & Plan (1) Anemia: Code(s): D64.9 - Anemia, unspecified Category: Medical Plan: Adminstered Retacrit 00275 U sq (2) CKD (chronic kidney disease) stage 5, GFR less than 15 ml/min: Code(s): N18.5 - Chronic kidney disease, stage 5 Category: Medical Plan: Renal fx unchanged eGFR between 10 and 12 ml/mt since Sep 2024 No s/s or uremia or fluid overload today (3) Essential hypertension: Code(s): I10 - Essential (primary) hypertension Category: Medical Plan: BP appears controlled. We discussed weight loss and low-salt diet again. (4) Chronic diastolic congestive heart failure: Code(s): I50.32 - Chronic diastolic (congestive) heart failure Category: Medical Plan: Compensated. Follows with cardiology. (5) Type 2 diabetes mellitus with unspecified complications: Code(s): E11.8 - Type 2 diabetes mellitus with unspecified complications Category: Medical (6) Obesity (BMI 30-39.9): Code(s): E66.9 - Obesity, unspecified Category: Medical Plan: Discussed weight loss. (7) Hyperparathyroidism: Code(s): E21.3 - Hyperparathyroidism, unspecified Category: Medical Plan: He is currently on cinacalcet and Rocaltrol. Cinacalcet on hold since 11/08/24) Repeat Ca is normal Follow PTH Restarted Cinacalcet ( PTH was 525) Plan Referred to dialysis education program. He will be a good candidate for CCPD Discussed pre-emptive transplant Referred to [facility] - seen in Nov Work up in progress Orders: Orders Complete Blood Count no Diff 3 Weeks N18.5 - Chronic kidney disease, stage 5 AMB Epoetin Injection Practice Supplied Today N40.1 - Benign prostatic hyperplasia with lower urinary tract symptoms Basic Metabolic Panel 3 Weeks N18.5 - Chronic kidney disease, stage 5 Coding Level of Care Code Est Pt Level 4 (02009) Diagnoses Anemia D64.9 CKD (chronic kidney disease) stage 5, GFR less than 15 ml/min N18.5 Essential hypertension I10 Chronic diastolic congestive heart failure I50.32 Type 2 diabetes mellitus with unspecified complications E11.8 Obesity (BMI 30-39.9) E66.9 Hyperparathyroidism E21.3
--- OUTSIDE RECORDS SUMMARY | 2025-05-03 11:28 | XMS_ITS | Encounter Summary ---
Author Organization [employer] Address [address] [facility] 7 [place] [address] Care Team Providers Care Transportation Technician Name Role Phone Ayaka Salgado MD Primary Care Provider [phone] Reason for Visit * Reason Onset Date Comments Med Refill 09/06/2024 Encounter Details Date Type Department Care Team ([facility] st Contact Info) Description 09/06/[address] [facility] MEDICINE [address] [place], [place] [phone] Ayaka Salgado MD 505 [facility] [place] [address] Med Refill Social History Tobacco Use Types [...] 8:56 AM EST Medication was sent to [facility] #[id number] on 08/09/24 with 3 refills. * Telephone Encounter - Cleopatra Ortiz - 09/06/2024 8:53 AM EST TC from pt requesting medication refill. Medications needing refill : labetalol (Normodyne) 200 MG tablet To be sent to: [facility] #[id number] - [place] - [address] [facility] [address] documented in this encounter Plan of Treatment Upcoming Encounters Date Type Department Care Team ([facility] st Contact Info) Description 05/31/2025 9:00 AM EDT Clinical Support [facility] MED & PEDS 505 [facility] [place] [address] Alana Hook, RN 505 [facility] [place] [address] documented as of this encounter Visit Diagnoses Not on filedocumented in this encounter Additional Health Concerns Assessment Noted Time PHQ-9 Depression Total Score: 7 08/29/20 22 10:26 AM EST documented as of this encounter Care Teams Transportation Technician Relationship Specialty Start Date End Date Ayaka Salgado MD 505 [place] [address] PCP - General Internal Medicine 09/15/18 documented as of this encounter
--- OUTSIDE RECORDS SUMMARY | 2025-05-03 11:28 | XMS_ITS | Encounter Summary ---
Author Organization [facility] [address] [facility] [address] [place] [address] Phone Care Team Providers Care Corporate Recycling Manager Name Role Phone Jayme Salgado MD Primary Care Provider [phone] Reason for Visit * Reason Comments Med Refill Encounter Details Date Type Department Care Team (Late st Contact Info) Description 04/28/2023 Refill [facility] [address] [place] [id number] Mumtaz Childress MD [address] [facility] [address] [place] [address] Type 2 diabetes mellitus with [...] (HCC) documented in this encounter Care Teams Corporate Recycling Manager Relationship Specialty Start Date End Date Jayme Salgado MD [address] [place] [address] PCP - General 09/25/20 documented as of this encounter
--- OUTSIDE RECORDS SUMMARY | 2025-05-03 11:28 | XMS_ITS ---
Author Organization [facility] Address [address] [place] [address] Care Team Providers Care Criminal Justice Professor Name Role Phone Ayaka Salgado Primary Care Provider Transplant Episode Kidney Candidate [facility] ([place], [place]) - [facility] Evaluation began on 07/29/2024 Marked as Active on 07/29/2024 Kidney CoordinatorShima Springer RN Email: N/A Scores Score Value Updated Exceptions/Reas ons CPRA Not available EPTS (Calc) 45 05/03/2025 [place] Organ Diagnosis Organ Primary Contributory Kidney Diabetes Mellitus - Type II Care Team Name Role Phone Fax Email Shima Springer RN Kidney Coordinator [phone] N/A Ross Baldwin Referring Physician [phone] N/A Events Pre-Transplant Referred: 07/19/2024 Evaluation began: 07/29/2024 Committee: 03/09/2025
== END 2025-05-03 10:29 | disposition home or self-care (01) ==
LOC: HO.HKA 10:13
PROVIDERS: PCP Internal Medicine; Visit Provider Internal Medicine Hypertension Specialist
DX: D64.9 Anemia, unspecified (principal); N18.5 Chronic kidney disease, stage 5; I12.0 Hypertensive chronic kidney disease with stage 5 chronic kidney disease or end stage renal disease; I50.32 Chronic diastolic (congestive) heart failure; E11.8 Type 2 diabetes mellitus with unspecified complications; E66.9 Obesity, unspecified; E21.3 Hyperparathyroidism, unspecified; N40.1 Benign prostatic hyperplasia with lower urinary tract symptoms
CPT/HCPCS: 99214

== ENCOUNTER → 2025-05-03 10:12 | Outpatient (BNVA) | payer MEDICARE, SELFPAY | PROVIDERS: PCP Internal Medicine; Visit Provider Internal Medicine Hypertension Specialist | DX: I13.2 Hypertensive heart and chronic kidney disease with heart failure and with stage 5 chronic kidney disease, or end stage renal disease (principal); E11.22 Type 2 diabetes mellitus with diabetic chronic kidney disease; N18.5 Chronic kidney disease, stage 5; D63.1 Anemia in chronic kidney disease; I50.32 Chronic diastolic (congestive) heart failure; E66.9 Obesity, unspecified; E21.3 Hyperparathyroidism, unspecified; Z79.84 Long term (current) use of oral hypoglycemic drugs; Z68.37 Body mass index [BMI] 37.0-37.9, adult; Z87.891 Personal history of nicotine dependence | CPT/HCPCS: 96372; 99212; Q5106 ==

== ENCOUNTER 2025-05-25 09:09 | Outpatient (REF) | payer MEDICARE, SELFPAY ==
--- OUTSIDE RECORDS SUMMARY | 2025-05-25 10:51 | XMS_ITS | Encounter Summary ---
Author Organization [employer] Address [address] [facility] 7 [place] [address] Care Team Providers Care Construction Sales Manager Name Role Phone Ayaka Salgado MD Primary Care Provider [phone] Reason for Visit * Reason Onset Date Comments Med Refill 08/05/2024 Encounter Details Date Type Department Care Team ([facility] st Contact Info) Description 08/05/2024 Refill [facility] CHC MED & PEDS [address] [place] [address] Ayaka Salgado MD 505 [place] [address] Back pain, unspecified back location, unspecified back [...] 5-325 MG tablet To be sent to: [facility] #[id number] - [place], [place] - [address] [facility] [place] documented in this encounter Plan of Treatment Upcoming Encounters Date Type Department Care Team (Late st Contact Info) Description 05/31/2025 9:00 AM EDT Clinical Support [facility] MED & PEDS [address] [place] [address] Alana Hook, RN 505 [place] [address] documented as of this encounter Visit Diagnoses Diagnosis Back pain, unspecified back location, unspecified back pain laterality, unspecified chronicity- Primary documented in this encounter Additional Health Concerns Assessment Noted Time PHQ-9 Depression Total Score: 7 08/29/20 22 10:26 AM EST documented as of this encounter Care Teams Construction Sales Manager Relationship Specialty Start Date End Date Ayaka Salgado MD [address] [place] [address] PCP - General Internal Medicine 09/15/18 documented as of this encounter
--- OUTSIDE RECORDS SUMMARY | 2025-05-25 10:51 | XMS_ITS | Encounter Summary ---
Author Organization [facility] 100 [facility] 200 [place] [address] Phone Care Team Providers Care Occupational Health And Safety Manager Name Role Phone Jayme Salgado MD Primary Care Provider [phone] Reason for Visit * Reason Comments Med Refill Encounter Details Date Type Department Care Team (Late st Contact Info) Description 04/28/2023 Refill [facility] [address] [place] [phone] Mumtaz Childress MD [address] [facility] 204 [place] [address] Type 2 diabetes mellitus with [...] (HCC) documented in this encounter Care Teams Occupational Health And Safety Manager Relationship Specialty Start Date End Date Jayme Salgado MD [address] [place] [address] PCP - General 09/25/20 documented as of this encounter
--- OUTSIDE RECORDS SUMMARY | 2025-05-25 10:51 | XMS_ITS | Encounter Summary ---
Author Organization [employer] Address [address] [place] [address] 7 [place] [address] Care Team Providers Care Seat Installer Name Role Phone Ayaka Salgado MD Primary Care Provider [phone] Reason for Visit * Reason Onset Date Comments Med Refill 07/28/2023 Encounter Details Date Type Department Care Team ([facility] st Contact Info) Description 07/28/2023 Telephone [facility] CHC MED & PEDS [address] [place] [address] Ayaka Salgado MD 505 [place] [address] Med Refill Social History Tobacco Use Types [...] (Percocet) 5-325 MG tablet Please sent to [facility] #[id number] - [place] - [address] [facility] documented in this encounter Plan of Treatment Upcoming Encounters Date Type Department Care Team ([facility] st Contact Info) Description 05/31/2025 9:00 AM EDT Clinical Support [facility] CHC MED & PEDS [address] [place] [address] Alana Hook, RACHELLE [address] [place] [address] documented as of this encounter Visit Diagnoses Not on filedocumented in this encounter Additional Health Concerns Assessment Noted Time PHQ-9 Depression Total Score: 7 08/29/20 22 10:26 AM EST documented as of this encounter Care Teams Seat Installer Relationship Specialty Start Date End Date Ayaka Salgado MD 505 [facility] [address] PCP - General Internal Medicine 09/15/18 documented as of this encounter
--- OUTSIDE RECORDS SUMMARY | 2025-05-25 10:51 | XMS_ITS | Encounter Summary ---
Author Organization [employer] Address [address] [facility] 7t [place] [address] Care Team Providers Care Coordinator Of Rehabilitation Services Name Role Phone Ayaka Salgado MD Primary Care Provider [phone] Encounter Details Date Type Department Care Team ([facility] st Contact Info) Description 08/20/2024 Orders Only [facility] CHC MED & PEDS [address] [place] [address] Ayaka Salgado MD [address] [place] [address] Social History Tobacco Use Types Packs/Day Years [...] Health And Wellness st Contact Info) Description 05/31/2025 9:00 AM EDT Clinical Support [facility] CHC MED & PEDS [address] [place] [address] lAana Hook, RACHELLE 505 [place] [address] documented as of this encounter Visit Diagnoses Not on filedocumented in this encounter Additional Health Concerns Assessment Noted Time PHQ-9 Depression Total Score: 7 08/29/20 22 10:26 AM EST documented as of this encounter Care Teams Coordinator Of Rehabilitation Services Relationship Specialty Start Date End Date Ayaka Salgado MD [address] [place] [address] PCP - General Internal Medicine 09/15/18 documented as of this encounter
--- OUTSIDE RECORDS SUMMARY | 2025-05-25 10:51 | XMS_ITS | Encounter Summary ---
Author Organization [employer] Address [address] [facility] 7t [place] [address] Care Team Providers Care Software Support Engineer Name Role Phone Ayaka Salgado MD Primary Care Provider [phone] Encounter Details Date Type Department Care Team ([facility] st Contact Info) Description 09/22/2023 Orders Only [facility] CHC MED & PEDS [address] [place] [address] Ayaka Salgado MD 505 [place], [place] [phone] Simple chronic bronchitis (CMS/HCC) (Primary Dx) Social [...] Description 05/31/2025 9:00 AM EDT Clinical Support [facility] MED & PEDS [address] [place] [address] Alana Hook, RACHELLE 505 [place] [address] documented as of this encounter Visit Diagnoses Diagnosis Simple chronic bronchitis (CMS/HCC)- Primary Simple chronic bronchitis documented in this encounter Additional Health Concerns Assessment Noted Time PHQ-9 Depression Total Score: 7 08/29/20 22 10:26 AM EST documented as of this encounter Care Teams Software Support Engineer Relationship Specialty Start Date End Date Ayaka Salgado MD 505 [place] [address] PCP - General Internal Medicine 09/15/18 documented as of this encounter
--- OUTSIDE RECORDS SUMMARY | 2025-05-25 10:51 | XMS_ITS | Encounter Summary ---
Author Organization [employer] Address [address] [place] [address] 7 [place] [address] Care Team Providers Care Translator Name Role Phone Ayaka Salgado MD Primary Care Provider [phone] Reason for Visit * Reason Comments Med Refill Encounter Details Date Type Department Care Team ([facility] Contact Info) Description 07/28/2023 Refill [facility] CHC MED & PEDS [address] [place] [address] Ayaka Salgado MD 505 [place] [address] Social History Tobacco Use Types Packs/Day Years [...] [facility] MED & PEDS [address] [place] [address] Alana Hook, RACHELLE 505 [place] [address] documented as of this encounter Visit Diagnoses Not on filedocumented in this encounter Additional Health Concerns Assessment Noted Time PHQ-9 Depression Total Score: 7 08/29/20 22 10:26 AM EST documented as of this encounter Care Teams Translator Relationship Specialty Start Date End Date Ayaka Salgado MD 505 [place] [address] PCP - General Internal Medicine 09/15/18 documented as of this encounter
--- OUTSIDE RECORDS SUMMARY | 2025-05-25 10:51 | XMS_ITS | Encounter Summary ---
Author Organization [employer] Address [address] [facility] 7 [place] [address] Care Team Providers Care Vehicle Fare Collector Name Role Phone Ayaka Saglado MD Primary Care Provider [phone] Reason for Visit * Reason Onset Date Comments Med Refill 08/09/2024 Encounter Details Date Type Department Care Team ([facility] st Contact Info) Description 08/09/2024 Telephone [facility] MEDICINE [address] [place], [place] [phone] Ayaka Salgado MD 505 [facility] [place] [address] Med Refill Social History Tobacco Use Types [...] 5-325 MG tablet To be sent to: [facility] #[id number] documented in this encounter Plan of Treatment Upcoming Encounters Date Type Department Care Team ([facility] st Contact Info) Description 05/31/2025 9:00 AM EDT Clinical Support [facility] MED & PEDS 505 [place] [address] Alana Hook RN 505 [place] [address] documented as of this encounter Visit Diagnoses Not on filedocumented in this encounter Additional Health Concerns Assessment Noted Time PHQ-9 Depression Total Score: 7 08/29/20 22 10:26 AM EST documented as of this encounter Care Teams Vehicle Fare Collector Relationship Specialty Start Date End Date Ayaka Salgado MD [address] [place] [address] PCP - General Internal Medicine 09/15/18 documented as of this encounter
--- OUTSIDE RECORDS SUMMARY | 2025-05-25 10:51 | XMS_ITS | Clinical Summary ---
Author Organization [employer] Address [address] [place] [address] 7[address] [place] [address] Care Team Providers Care Drapery Cutter Name Role Phone Ayaka Salgado MD Primary Care Provider [phone] Allergies Active Allergy Reactions Criticality Noted Date [...] oral route 4 times every day Active Blood Pressure kit Use daily Active Misc. Devices (Pulse Oximeter) misc USE DIRECTED Active amLODIPine (Norvasc) 5 MG tabletIndications :Congestive heart failure, unspecified HF chronicity, unspecified heart failure type (CMS/HCC) Take 1 tablet (5 mg) by mouth in the morning. Take 1 tablet by mouth daily 30 tablet 11 023 Active lidocaine (Lidoderm) 5 % patch APPLY 1 PATCH TOPICALLY TO THE SKIN EVERY DAY. MAY WEAR UP TO 12 HOURS 30 patch 023 Active cloNIDine (Catapres) 0.3 MG tablet [...] AT BEDTIME NEEDED FOR ITCHING 30 capsule 023 Active guaiFENesin (Mucinex) 600 MG 12 hr tabletIndications :Simple chronic bronchitis (CMS/HCC) Take 2 tablets (1,200 mg) by mouth 2 times daily. 20 tablet 024 Active albuterol (2.5 MG/3ML) 0.083% nebulizer solutionIndicatio ns:Simple chronic bronchitis (CMS/HCC) Take 3 mL (2.5 mg) by nebulization every 4 (four) hours if needed for wheezing. 75 mL 3 Active budesonide-formot radha (Symbicort) 160-4.5 MCG/ACT inhaler Inhale 2 puffs in the morning and at bedtime. 1 each Active tiotropium (Spiriva HandiHaler) 18 MCG inhalation capsuleIndication s:Simple chronic bronchitis (CMS/HCC) Place 1 capsule (18 mcg) into inhaler and inhale in the morning. 30 capsule 11 024 2024 Active albuterol 108 (90 Base) MCG/ACT inhaler Inhale 2 puffs every 6 (six) hours if needed for wheezing. 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 80 g 3 Active gabapentin (Neurontin) 300 MG capsuleIndication s:Chronic pruritus Take 1 capsule (300 mg) by mouth 3 times daily. 90 capsule 11 024 2024 Active Januvia 25 MG tabletIndications :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[facility]/HCC) TAKE 1 TABLET(25 MG) BY MOUTH IN THE MORNING 30 tablet Active zolpidem (Ambien) 10 MG tabletIndications :Primary osteoarthritis involving multiple joints TAKE 1 TABLET BY MOUTH AT BEDTIME NEEDED FOR SLEEP 30 tablet 025 Active guaiFENesin (Mucinex) 600 MG 12 hr tablet Take 2 tablets (1,200 mg) by mouth 2 times daily. Do not crush, chew, or split. 120 tablet 025 2025 Active simvastatin (Zocor) 20 MG tablet Take 1 tablet (20 mg) by mouth at bedtime. 90 tablet 3 Active bumetanide (Bumex) 1 MG tabletIndications :Congestive heart failure, unspecified HF chronicity, unspecified heart failure type ([facility]/HCC) TAKE 1 TABLET(1 MG) BY MOUTH TWICE DAILY 180 tablet 3 025 Active Umeclidinium [place] (Incruse Ellipta) 62.5 MCG/ACT aerosol powderIndications :Chronic obstructive pulmonary disease, unspecified COPD type ([facility]) Inhale 1 Act (62.5 mcg) Once per day AND 1 Act (62.5 mcg) Once per day. 30 each Active labetalol (Normodyne) 300 MG tabletIndications :Essential hypertension Take 1 tablet (300 mg) by mouth 2 times daily. 60 tablet 2025 Active OneTouch Verio test stripIndications: 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[facility]/HCC) USE TO TEST BLOOD SUGAR TWICE A DAY 100 strip 025 Active Alcohol Swabs (Alcohol Prep) 70 % pads APPLY 1 PAD TO SKIN TWICE DAILY DIRECTED 200 each 025 Active melatonin 5 MG tabletIndications :Primary insomnia 1 tab of 5 mg at bedtime 90 tablet 1 Active zolpidem (Ambien) 10 MG tabletIndications :Primary insomnia TAKE 1 TABLET BY MOUTH AT BEDTIME NEEDED FOR SLEEP 30 tablet 025 Active oxyCODONE-acetami nophen (Percocet) 5-325 MG tabletIndications :Arthropathy Take 1 tablet by mouth every 6 (six) hours if needed for severe pain. 42 tablet 025 Active hydrALAZINE (Apresoline) 100 MG tablet TAKE 1 TABLET BY MOUTH THREE TIMES DAILY WITH FOOD 270 tablet 3 025 Active hydrALAZINE (Apresoline) 100 MG tablet Take 1 tablet (100 mg) by mouth 3 times daily. TAKE 1 TABLET BY MOUTH THREE TIMES DAILY WITH FOOD 270 tablet 3 024 2024 Discontinued zolpidem (Ambien) 10 MG tabletIndications :Primary insomnia TAKE 1 TABLET BY MOUTH AT BEDTIME NEEDED FOR SLEEP 30 tablet 025 2024 Discontinued(R eorder (will [...] Active Problems Problem Noted Date Diagnosed Date Normocytic anemia 02/22/2025 Atrial fibrillation 02/22/2025 Overview (02/22/2025): Status post Watchman device at [facility]. [facility] (current) use of opiate analgesic 11/13 [...] Encounters Date Type Department Care Team Description 05/20/2025 Refill [facility] [address] [place] [address] Ayaka Salgado MD 05/12/2025 Telephone [facility] [address] [place] [address] Ayaka Salgado MD Med Refill 05/12/2025 Refill [facility] [address] [place] [address] Ayaka Salgado MD Arthropathy 04/26/2025 Refill [facility] [address] [place] [address] Ayaka Salgado MD Primary insomnia 04/26/2025 Refill [facility] [address] [place] [address] Ayaka Salgado MD Arthropathy 04/13/2025 Travel 04/06/2025 Refill [facility] [address] [place] [address] Ayaka Salgado MD Arthropathy 04/02/2025 Refill [facility] [address] [place] [address] Ayaka Salgado MD 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[facility]) 03/28/2025 Refill [facility] [address] [place] [address] Ayaka Salgado MD Primary insomnia 03/26/2025 Refill [facility] [address] [place] [address] Ayaka Salgado MD 03/22/2025 Telephone [facility] [address] [place] [address] Ayaka Salgado MD Med Refill 03/21/2025 Refill [facility] [address] [place] [address] Ayaka Salgado MD Arthropathy 03/21/2025 Refill [facility] [address] [place] [address] Ayaka Salgado MD Primary insomnia 03/10/2025 Refill [facility] [address] [place] [address] Ayaak Salgado MD 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) 03/07/2025 Telephone [facility] [address] [place] [address] Ayaka Salgado MD 03/04/2025 Orders Only [facility] [address] [place] [address] Ayaka Salgado MD 03/04/2025 Refill [facility] [address] [place] [address] Ayaka Salgado MD 02/28/2025 Refill [facility] [address] [place] [address] Alana Hook, RACHELLE Arthropathy 02/28/2025 Telephone [facility] [address] [place] [address] Ayaka Salgado MD Med Refill 02/24/2025 Telephone [facility] [address] [place] [address] Ayaka Salgado MD Medication Question 02/23/2025 Refill [facility] [address] [place] [address] Ayaka Salgado MD Primary insomnia 02/22/2025 1:45 PM EDT Office Visit [facility] [address] [place] [address] Ayaka Salgado MD Chronic obstructive pulmonary disease, unspecified COPD type (CMS/HCC) (Primary Dx); 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); Essential hypertension; [facility] (current) use of opiate analgesic; Normocytic anemia; Paroxysmal atrial fibrillation (CMS/HCC) 02/22/2025 Travel from Last 3 Months Immunizations Immunization Administration [...] Sign Reading Time Taken Comments Blood Pressure 136/74 02/22/2025 1:44 PM EDT Pulse 56 02/22/2025 1:44 PM EDT Temperature 36.6 C (97.8 F) 02/22/2025 1:44 PM EDT Respiratory Rate 16 02/22/2025 1:44 PM EDT Oxygen Saturation 97% 02/22/2025 1:44 PM EDT Inhaled Oxygen Concentration - - Weight 99.3 kg (219 lb) 02/22/2025 1:44 PM EDT Height 167.6 cm (5' 6 ) 02/22/2025 1:44 PM EDT Body Mass Index 35.35 02/22/2025 1:44 PM EDT Plan of Treatment Upcoming Encounters Date Type Department Care Team (Late st Contact Info) Description 05/31/2025 9:00 AM EDT Clinical Support [facility] [address] [place] [address] Alana Hook, RN [address] [place] [address] Health Maintenance Due Date Last Done Comments CT Colonography 1957 Colonoscopy 1957 Colorectal Cancer Screening 1957 FIT DNA/Cologuard 1957 FIT 1957 FOBT 1957 Sigmoidoscopy 1957 Hepatitis C Screening 12/09/1975 DTaP/Tdap/Td Vaccines (1 - Tdap) 09/16/2005 09/15/2005 Zoster Vaccines (1 of 2) 12/09/2007 RSV Patients and Patients Aged 60 years or older (1 - Risk 60-74 years 1-dose series) 2017 Diabetes: Foot Exam 10/01/2024 10/01/2023, 10/01/2023, 10/01/2023, Additional history exists Lipid Panel 11/12/2024 11/12/2023 Eye Exam 05/04/2025 05/04/2024, 05/29/2023 COVID-19 Vaccine ( season) 2025 08/03/2021, 11/03/2020, 10/06/2020 Influenza Vaccine (#1) 2025 Depression Monitoring 05/25/2025 11/22/2024, 025 Diabetes: Hemoglobin A1C 05/25/2025 025, 07/12/2024, 10/01/2023, Additional history exists Pneumococcal Vaccine: 50+ Years (1 of 2 - PCV) 07/12/2025 Postponed from 1976 (Patient Refused) Alcohol/Substance Use Screening 11/22/2025 11/22/2024 SDOH Screening 11/22/2025 11/22/2024 Tobacco Screening 02/22/2026 02/22/2025 HIB Vaccines Aged Out No longer eligi [...] Name Priority Date/Time Associated Diagnosis Comments POCT GLUCOSE Routine 02/22/2025 1:45 PM EDT 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) POCT GLYCATED HEMOGLOBIN, TOTAL Routine 11/22/2024 11:52 AM EDT 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) HM DIABETES EYE EXAM Routine 05/04/2024 12:18 PM EDT LIPID PANEL, STANDARD Routine 11/12/2023 9:08 AM EST 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[facility]/HCC) Essential hypertension from Last 3 Months or Most Recently Relevant to Health Maintenance Results * (ABNORMAL) POCT glucose manually resulted (02/22/2025 1:45 PM EDT) Glucose Blood, POC 172 60 - 200 mg/dL QC Media Lot # Comment:[id number] Lot# Expiration Date Comment:05/29/2025 Blood Capillary blood specimen / Unknown 02/22/2025 1:45 PM EDT Ayaka Salgado MD POINT OF CARE TEST ENTER/ED IT ORDERABLES Final Result * POCT HGB A1C (11/22/2024 11:52 AM EDT) Hemoglobin A1C 5.9 4.0 - 6.0 % QC Media Lot # [id number] Lot# Expiration Date ,247 Blood 11/22/2024 11:5 2 AM EDT Ayaka Salgado MD POINT OF CARE TEST ENTER/ED IT ORDERABLES Final Result * Diabetes Eye Exam (05/04/2024 12:18 PM EDT) Historical Provider HEALTH MAINTENANCE Final Result * (ABNORMAL) Lipid Panel, Standard (11/12/2023 9:08 AM EST) Triglycerides 55 <150 mg/dL [facility] Comment:Desirable Triglyceri de: less than 150 mg/dLBorderline High Triglyceride 150-199 mg/dLHigh Triglyceride: 200-499 mg/dLVery High Triglyceride: greater than or equal to 5OO mg/dL Cholesterol 101 <200 mg/dL [facility] Comment:Desirable Cholestero l: less than 200 mg/dLBorderline High Cholesterol: 200-239 mg/dLHigh Cholesterol: greater than 239 mg/dL LDL Cholesterol Calculated 57 <100 mg/dL [facility] Comment:Desirable LDL: less than 100 mg/dLNear Optimal/Above Optimal LDL: 110- 129 mg/dLBorderline High LDL: 130-159 mg/dLHigh LDL: 160-189 mg/dLVery High LDL: greater than or equal to 190 mg/dL HDL Cholesterol 33(L) >40 mg/dL [facility] Comment:Desirable HDL: great er than 40 mg/dL Note: This HDL assay may give artificially low results in patients with liver disease. Blood Venous blood specimen / Unknown 11/12/2023 9:08 AM EST 11/12/2023 2:41 PM EST us Ayaka Salgado MD LAB BLOOD ORDERABLES Final Result Performing Organization Address City/State/[facility] Co de Phone Number [facility] [address] [place] [address] [phone] from Last 3 Months or Most Recently Relevant to Health Maintenance Insurance [facility] MEDICARE ADVANTAGE HMO Care Teams Drapery Cutter Relationship Specialty Start Date End Date Ayaka Salgado MD [address] [place] [address] [place] [address] PCP - General Internal Medicine 09/15/18
--- OUTSIDE RECORDS SUMMARY | 2025-05-25 10:51 | XMS_ITS | Encounter Summary ---
Author Organization [facility] Address [address] [place] [address] Care Team Providers Care Copy Lathe Tender Name Role Phone Ayaka Salgado Primary Care Provider [phone] Encounter Details Date Type Department Care Team (Late st Contact Info) Description 07/29/2024 Orders Only [facility] Xray [address] [place] [address] Waqas Garnett MD [address] [place] [phone] Social History Tobacco Use Types Packs/Day Years [...] Care Team (Late st Contact Info) Description 06/13/2025 10:30 AM EDT Follow-Up [facility] [address] [place] [address] Gary Reese MD [address] [place] [phone] 06/28/2025 10:00 AM EDT Social Work [facility] Renal Transplant [address] [place] [address] uSsan Babb LICSW [address] [place] [address] 06/28/2025 10:40 AM EDT Follow-Up [facility]plant [address] [place] [address] Joey Duarte MD [address] [place], [place] [phone] documented as of this encounter Visit Diagnoses Not on filedocumented in this encounter Care Teams Copy Lathe Tender Relationship Specialty Start Date End Date Ayaka Salgado [address] [place] [phone] PCP - General Internal Medicine 07/29/24 documented as of this encounter
--- OUTSIDE RECORDS SUMMARY | 2025-05-25 10:51 | XMS_ITS | Encounter Summary ---
Author Organization [employer] Address [address] [facility] 7t [place] [address] Care Team Providers Care Envelope Addresser Name Role Phone Ayaka Salgado MD Primary Care Provider [phone] Encounter Details Date Type Department Care Team (Late st Contact Info) Description 06/25/2024 Orders Only [facility] MED & PEDS [address] [place] [address] Provider, MD Ran Social History Tobacco Use Types Packs/Day Years [...] [facility] [address] [place] [address] Alana Hook RN [address] [place] [address] documented as of this encounter Procedures Procedure [...] documented as of this encounter Care Teams Envelope Addresser Relationship Specialty Start Date End Date Ayaka Salgado MD [address] [place] [address] PCP - General Internal Medicine 09/15/18 documented as of this encounter
--- OUTSIDE RECORDS SUMMARY | 2025-05-25 10:51 | XMS_ITS | Encounter Summary ---
Author Organization [employer] Address [address] [facility] 7 [place] [address] Care Team Providers Care Dish Network Installer Name Role Phone Ayaka Salgado MD Primary Care Provider [phone] Reason for Visit * Reason Onset Date Comments Med Refill 07/31/2023 Encounter Details Date Type Department Care Team ([facility] st Contact Info) Description 07/31/2023 Telephone [facility] MEDICINE [address] [place], [place] [phone] Ayaka Salgado MD [address] [facility] [place] [address] Med Refill Social History Tobacco Use Types [...] Description 05/31/2025 9:00 AM EDT Clinical Support [facility]ED[facility] [address] [place] [address] Alana Hook, RACHELLE [address] [place] [address] documented as of this encounter Visit Diagnoses Not on filedocumented in this encounter Additional Health Concerns Assessment Noted Time PHQ-9 Depression Total Score: 7 08/29/20 22 10:26 AM EST documented as of this encounter Care Teams Dish Network Installer Relationship Specialty Start Date End Date Ayaka Salgado MD [address] [place] [address] PCP - General Internal Medicine 09/15/18 documented as of this encounter
--- OUTSIDE RECORDS SUMMARY | 2025-05-25 10:51 | XMS_ITS | Encounter Summary ---
Author Organization [employer] Address [address] [facility] 7 [place] [address] Care Team Providers Care Cuff Slitter Name Role Phone Ayaka Salgado MD Primary Care Provider [phone] Reason for Visit * Reason Onset Date Comments Med Refill 09/06/2024 Encounter Details Date Type Department Care Team ([facility] st Contact Info) Description 09/06/2024 Telephone [facility] MED[facility]INE [address] [place], [place] [phone] Ayaka Salgado MD [address] [facility] [place] [phone] Med Refill Social History Tobacco Use Types [...] 8:56 AM EST Medication was sent to [facility] #[id number] on 08/09/24 with 3 refills. * Telephone Encounter - Cleopatra Ortiz - 09/06/2024 8:53 AM EST TC from pt requesting medication refill. Medications needing refill : labetalol (Normodyne) 200 MG tablet To be sent to: [facility] #[id number] - [place] - [address] [facility] [address] documented in this encounter Plan of Treatment Upcoming Encounters Date Type Department Care Team ([facility] st Contact Info) Description 05/31/2025 9:00 AM EDT Clinical Support [facility] [address] [facility] [place] [address] Alana Hook, RN 505 [facility] [place] [phone] documented as of this encounter Visit Diagnoses Not on filedocumented in this encounter Additional Health Concerns Assessment Noted Time PHQ-9 Depression Total Score: 7 08/29/20 22 10:26 AM EST documented as of this encounter Care Teams Cuff Slitter Relationship Specialty Start Date End Date Ayaka Salgado MD [address] [place] [address] PCP - General Internal Medicine 09/15/18 documented as of this encounter
--- OUTSIDE RECORDS SUMMARY | 2025-05-25 10:51 | XMS_ITS | Clinical Summary ---
Author Organization [facility] Address [address] [place] [address] Care Team Providers Care Adult Literacy Teacher Name Role Phone DamianAyaka Primary Care Provider [phone] Allergies Active Allergy Reactions Criticality Noted Date [...] Encounters Date Type Department Care Team Description 04/04/2025 Telephone [facility] Transplant Department [address] [place] [address] Shima Springer RN 03/22/2025 Telephone [facility] Transplant Department [address] [place] [address] 14931 Shima Springer RN Referral - Kidney Txp 03/08/2025 Documentation [facility] Transplant Department [address] [place] [address]20 Sheryl Moore RN ABO Dual Validation 03/03/2025 External Result Entry [facility] Transplant Department [address] [place] [address] Shima Springer RN from Last 3 Months Social History [...] 64 07/29/2024 9:09 AM EST Temperature 36.8 C (98.2 F) 07/29/2024 9:09 AM EST Respiratory Rate 18 07/29/2024 9:09 [...] Info) Description 06/13/2025 10:30 AM EDT Follow-Up [facility] Liver Transplant Services [address] [place] [address] Gary Reese MD [address] [place] [address] 06/28/2025 10:00 AM EDT Social Work [facility] Renal Transplant [address] [place] [address] Susan Babb LICSW [address] [place] [address] 06/28/2025 10:40 AM EDT Follow-Up [facility] Renal Transplant [address] [place] [address] Joey Duarte MD [address] [place], [place] [id number] Health Maintenance Due Date Last Done Comments [...] 2) 12/09/2007 RSV Vaccine (60+ years old and patients) (1 - Risk 60-74 years 1-dose series) 2017 Abdominal Aortic Aneurysm (AAA) Screening 2022 Basic Metabolic Panel 08/28/2023 05/29/2023 Alcohol/Substance Use Screening 09/15/2024 Depression Screening and Follow-Up 09/15/2024 Health Care Proxy Review 09/15/2024 Social Drivers of Health Annual Screening 09/15/2024 COVID-19 Vaccine ( season) 2025 08/03/2021, 11/03/2020, 10/06/2020 Influenza Vaccine (#1) 2025 Hemoglobin A1C 05/25/2025 11/22/2024, 07/16, 07/12/2024, Additional history exists Hemoglobin 07/29/2025 07/29/2024 Phosphorus 07/29/2025 07/29/2024 CKD: [...] Health Maintenance Results * Due to [place] [employer] law, this organization might not be sharing [...] - 0.50 10*3/uL 07/29/2024 1:35 PM EST [facility] Basophil # <0.03 0.00 - 0.20 10*3/uL 07/29/2024 1:35 PM EST [facility] nRBC % 0.0 /100 WBCs 07/29/2024 1:35 PM EST [facility] [employer] [facility] nRBC # <0.01 <0.01 10*3/uL 07/29/2024 1:35 PM EST [facility] [facility] Blood Structure of peripheral vein / Unknown Venipuncture / Unknown 07/29/2024 12:57 PM EST 07/29/2024 1:29 PM EST Joey Duarte MD LAB BLOOD ORDERABLES María l Result [facility] [employer] [facility] [address] [place] [address], * Hepatitis C Antibody w/Reflex to PCR (07/29/2024 12:57 PM EST) Hepatitis C Antibody NON-REACT [place]AN[place]ORD NON-REACT [place]ORD 07/30/2024 3:03 AM EST [facility] Comment: HCV antibody was non-reactive. There is no laboratory evidence of HCV infection. In most cases, no further action is required. However, if recent HCV exposure is suspected, a test for HCV RNA (test code 06180) is suggested. For additional information please refer to http://education.Eventfinda/faq/LZE07f6 (This link is being provided for informational/ educational purposes only.) Blood Structure of peripheral vein / Unknown Venipuncture / Unknown 07/29/2024 12:57 PM EST 07/29/2024 1:32 PM EST Narrative [facility] - 07/30/2024 3:03 AM EST [facility] Received Date: Joey Duarte MD LAB BLOOD ORDERABLES María l Result Performing Organization Address City/[facility]/ZIP Co de Phone Number ROEL PENDLETON [address] [facility] [address], [place] [address], [facility] [address] [facility] 3rd Floor, [place] [address], * Phosphorus (07/29/2024 12:57 PM EST) Phosphorus 4.5 2.5 - 4.5 mg/dL 07/29/2024 2:00 PM EST [facility] Blood Structure of peripheral vein / Unknown Venipuncture / Unknown 07/29/2024 12:57 PM EST 07/29/2024 1:29 PM EST Joey Duarte MD LAB BLOOD ORDERABLES María l Result Performing Organization Address City/[facility]/ZIP Co de Phone Number [facility] [address] [place] [address], * (ABNORMAL) Hemoglobin A1c (07/29/2024 12:57 PM EST) Hemoglobin A1C 6.7(H) <5.7 % of total Hgb 07/30/2024 1:59 AM EST [facility] Comment: For someone without known diabetes, a [...] A1c for diagnosis of diabetes for children. eAG (MG/DL) 146 mg/dL 07/30/2024 1:59 AM EST [facility] eAG (MMOL/L) 8.1 mmol/L 07/30/2024 1:59 AM EST [facility] Blood Structure of peripheral vein / Unknown Venipuncture / Unknown 07/29/2024 12:57 PM EST 07/29/2024 1:32 PM EST Narrative [facility] - 07/30/2024 1:59 AM EST [facility] Received Date: Joey Duarte MD LAB BLOOD ORDERABLES María lee Result [facility] [address] [facility] [address], [place] [address], [place] [phone] [facility] [address], [place] [address], [place] [phone] from Last 3 Months or Most Recently Relevant to Health Maintenance Insurance [facility] Member Subscriber Plan / Payer (Ef fective 2023-Present) Name:Lewis Snyder Relation to Subscriber:Self Name:Lewis Snyder Payer ID:[id number] (NAIC) Type:Not on file Address: [place] [id number] [facility] Advance Directives Documents on File Type Date Recorded Patient Supervisor [employer] Expl anation Health Care Proxy 08/05/2024 4:14 PM 07-16 Care Teams Adult Literacy Teacher Relationship Specialty Start Date End Date Ayaka Salgado [address] [place] [address] PCP - General Internal Medicine 07/29/24
--- OUTSIDE RECORDS SUMMARY | 2025-05-25 10:51 | XMS_ITS | Clinical Summary ---
Author Organization [facility] Address [address] [place] [place] [address] Phone Care Team Providers Care Tax Advisor Name Role Phone Jayme Salgado MD Primary Care Provider [phone] Allergies Active Allergy Reactions Criticality Noted Date [...] Visual Foot Exam 10/16/2020 Diabetes: Hemoglobin A1C 02/22/2025 025, 07/29/2024, 02/24/2023, Additional history exists Influenza Vaccine (#1) 2025 Hepatitis B Vaccine Aged Out No longe r eligible based on patient's age to complete this topic Insurance U[employer] Medicare [facility] [place] [address] Care Teams Tax Advisor Relationship Specialty Start Date End Date Jayme Salgado MD [address] [place] [address] [place] PCP - General 09/25/20
--- OUTSIDE RECORDS SUMMARY | 2025-05-25 10:51 | XMS_ITS ---
Author Organization [facility] Address [address] [place] [address] Care Team Providers Care Guard Entrance Registrar Name Role Phone Ayaka Salgado Primary Care Provider [phone] Transplant Episode Kidney Candidate [facility] ([place] [place]) - [facility] Evaluation began on 07/29/2024 Marked as Active on 07/29/2024 Kidney CoordinatorShima Springer RN Email: N/A Scores Score Value Updated Exceptions/Reas ons CPRA Not available EPTS (Calc) 45 05/25/2025 [facility] Organ Diagnosis Organ Primary Contributory Kidney Diabetes Mellitus - Type II Care Team Name Role Phone Fax Email Shima Springer RN Kidney Coordinator [phone] N/A Ross Baldwin Referring Physician [phone] N/A Events Pre-Transplant Referred: 07/19/2024 Evaluation began: 07/29/2024 Committee: 03/09/2025 Appointments (04/24/2025 - 06/24/2025) When With Visit Type Description 06/13/2025 Transplant - Adriel Reese Follow Up
--- OUTSIDE RECORDS SUMMARY | 2025-05-25 10:51 | XMS_ITS ---
Author Organization [facility] Address [address] [place] [address] 7 [place] [address] Care Team Providers Care Dealer Support Technician Name Role Phone Ayaka Salgado MD Primary Care Provider [phone] INSTRUMENTATION TECH Status:Enrolled (Active) Start date:12/20/2022 Enrollment date:12/20/2022 Case Team Name Relationship Phone Alana Hook RN(Responsible Staff) Registered Nurse Continued Care and Services Coordination
--- OUTSIDE RECORDS SUMMARY | 2025-05-25 10:51 | XMS_ITS | Encounter Summary ---
Author Organization [employer] Address [address] [facility] 7 [place] [address] Care Team Providers Care Health Education Teacher Name Role Phone Ayaka Salgado MD Primary Care Provider [phone] Reason for Visit * Reason Onset Date Comments Med Refill 12/01/2023 Encounter Details Date Type Department Care Team ([facility] st Contact Info) Description 12/01/2023 Telephone [facility] MEDICINE [address] [place], [place] [phone] Ayaka Salgado MD [address] [facility] [place] [address] Med Refill Social History Tobacco Use Types [...] 10 MG tablet To be sent to: [id number] - [place] - [address] [facility] documented in this encounter Plan of Treatment Upcoming Encounters Date Type Department Care Team ([facility] st Contact Info) Description 05/31/2025 9:00 AM EDT Clinical Support [facility] MED & PEDS [address] [place] [address] Alana Hook RN [address] [place] [address] documented as of this encounter Visit Diagnoses Not on filedocumented in this encounter Additional Health Concerns Assessment Noted Time PHQ-9 Depression Total Score: 7 08/29/20 22 10:26 AM EST documented as of this encounter Care Teams Health Education Teacher Relationship Specialty Start Date End Date Ayaka Salgado MD [address] [place] [address] PCP - General Internal Medicine 09/15/18 documented as of this encounter
--- OUTSIDE RECORDS SUMMARY | 2025-05-25 10:52 | XMS_ITS | Encounter Summary ---
Author Organization [employer] Address [address] [place] [address] Care Team Providers Care Interior Design Coordinator Name Role Phone Ayaka Salgado MD Primary Care Provider [phone] Reason for Visit * Reason Onset Date Comments Med Refill 12/12/2022 Encounter Details Date Type Department Care Team ([facility] st Contact Info) Description 12/12/2022 Telephone [facility] MED & PEDS [address] [place] [address] Ayaka Salgado MD [address] [place] [address] Med Refill Social History Tobacco Use Types [...] (Norvasc) 5 MG tablet Please sent to [facility][id number] - [place] - [address] [facility] documented in this encounter Plan of Treatment Upcoming Encounters Date Type Department Care Team ([facility] st Contact Info) Description 05/31/2025 9:00 AM EDT Clinical Support [facility] CHC MED & PEDS [address] [place] [address] Alana Hook, RN [address] [place] [address] documented as of this encounter Visit Diagnoses Not on filedocumented in this encounter Additional Health Concerns Assessment Noted Time PHQ-9 Depression Total Score: 7 08/29/20 22 10:26 AM EST documented as of this encounter Care Teams Interior Design Coordinator Relationship Specialty Start Date End Date Ayaka Salgado MD [address] [place] [address] PCP - General Internal Medicine 09/15/18 documented as of this encounter
--- OUTSIDE RECORDS SUMMARY | 2025-05-25 10:52 | XMS_ITS | Encounter Summary ---
Author Organization [employer] Address [address] [place] [address] 7 [place] [address] Care Team Providers Care Scientist Engineer Name Role Phone Ayaka Salgado MD Primary Care Provider [phone] Encounter Details Date Type Department Care Team ([facility] st Contact Info) Description 02/10/2025 Orders Only [facility] CHC MED & PEDS [address] [place] [address] Ayaka Salgado MD [address] [place], [place] [phone] Arthropathy Social History Tobacco Use Types Packs/Day [...] Description 05/31/2025 9:00 AM EDT Clinical Support [facility] CHC MED & PEDS [address] [place] [address] Alana Hook, RACHELLE [address] [place] [address] documented as of this encounter Visit Diagnoses Diagnosis Arthropathy Unspecified arthropathy, site unspecified documented in this encounter Additional Health Concerns Assessment Noted Time PHQ-9 Depression Total Score: 12 025 11:13 AM EDT documented as of this encounter Care Teams Scientist Engineer Relationship Specialty Start Date End Date Ayaka Salgado MD [address] [place] [address] PCP - General Internal Medicine 09/15/18 documented as of this encounter
--- OUTSIDE RECORDS SUMMARY | 2025-05-25 10:52 | XMS_ITS | Encounter Summary ---
Author Organization [employer] Address [address] [facility] 7t [place] [address] Care Team Providers Care Sap Pi Developer Name Role Phone Ayaka Salgado MD Primary Care Provider [phone] Reason for Visit * Reason Comments Med Refill Encounter Details Date Type Department Care Team ([facility] st Contact Info) Description 06/15/2024 Refill [facility] MEDICINE [address] [place], [place] [phone] Lev Gentile MD [address] [place], [place] [phone] Chronic pruritus Social History Tobacco Use Types [...] 05/31/2025 9:00 AM EDT Clinical Support [facility] MED & PEDS [address] [place] [address] Alana Hook, RACHELLE [address] [place] [address] documented as of this encounter Visit Diagnoses Diagnosis Chronic pruritus documented in this encounter Additional Health Concerns Assessment Noted Time PHQ-9 Depression Total Score: 7 08/29/20 22 10:26 AM EST documented as of this encounter Care Teams Sap Pi Developer Relationship Specialty Start Date End Date Ayaka Salgado MD [address] [place] [address] PCP - General Internal Medicine 09/15/18 documented as of this encounter
--- OUTSIDE RECORDS SUMMARY | 2025-05-25 10:52 | XMS_ITS | Encounter Summary ---
Author Organization [employer] Address [address] [facility] 7 [place] [address] Care Team Providers Care Lumber Tying Machine Operator Name Role Phone Ayaka Salgado MD Primary Care Provider [phone] Reason for Visit * Reason Comments Med Refill Encounter Details Date Type Department Care Team (Late st Contact Info) Description 10/07/2022 Refill [facility] [address] [place] [address] Ayaka Salgado MD [address] [facility] [place] [address] Primary osteoarthritis involving multiple joints Social History [...] [facility] MED & PEDS [address] [place] [address] Alana Hook RN [address] [place] [address] documented as of this encounter Visit Diagnoses Diagnosis Primary osteoarthritis involving multiple joints documented in this encounter Additional Health Concerns Assessment Noted Time PHQ-9 Depression Total Score: 7 08/29/20 22 10:26 AM EST documented as of this encounter Care Teams Lumber Tying Machine Operator Relationship Specialty Start Date End Date Ayaka Salgado MD [address] [place] [address] PCP - General Internal Medicine 09/15/18 documented as of this encounter
--- OUTSIDE RECORDS SUMMARY | 2025-05-25 10:52 | XMS_ITS | Encounter Summary ---
Author Organization [employer] Address [address] [place] [address] 7t [place] [address] Care Team Providers Care Processing Lead Name Role Phone Ayaka Salgado MD Primary Care Provider [phone] Encounter Details Date Type Department Care Team (Late st Contact Info) Description 02/19/2023 Abstract [facility] Information Management [address] [place] [address] Ayaka Salgado MD [address] [place], [place] [phone] Social History Tobacco Use Types Packs/Day Years [...] 05/31/2025 9:00 AM EDT Clinical Support [facility] MED & PEDS [address] [place] [address] Alana Hook, RACHELLE [address] [place] [address] documented as of this encounter Visit Diagnoses Not on filedocumented in this encounter Additional Health Concerns Assessment Noted Time PHQ-9 Depression Total Score: 7 08/29/20 22 10:26 AM EST documented as of this encounter Care Teams Processing Lead Relationship Specialty Start Date End Date Ayaka Salgado MD [address] [place] [address] PCP - General Internal Medicine 09/15/18 documented as of this encounter
--- OUTSIDE RECORDS SUMMARY | 2025-05-25 10:52 | XMS_ITS | Encounter Summary ---
Author Organization [employer] Address [address] [facility] 7 [place] [address] Care Team Providers Care Manager Exchange Name Role Phone Ayaka Salgado MD Primary Care Provider [phone] Reason for Visit * Reason Onset Date Comments r/s appt 08/23/2022 Encounter Details Date Type Department Care Team ([facility] st Contact Info) Description 08/23/2022 Telephone [facility] MEDICINE [address] [place] [address] Ayaka Salgado MD 505 [facility] [place] [address] r/s appt Social History Tobacco Use Types [...] appt has been canceled. Please contact at [phone] documented in this encounter Plan of Treatment Upcoming Encounters Date Type Department Care Team (Late st Contact Info) Description 05/31/2025 9:00 AM EDT Clinical Support [facility] CHC MED & PEDS [address] [place] [address] Alana Hook, RN [address] [place] [address] documented as of this encounter Visit Diagnoses Not on filedocumented in this encounter Care Teams Manager Exchange Relationship Specialty Start Date End Date Ayaka Salgado MD 505 [place] [address] PCP - General Internal Medicine 09/15/18 documented as of this encounter
--- OUTSIDE RECORDS SUMMARY | 2025-05-25 10:52 | XMS_ITS | Encounter Summary ---
Author Organization [employer] Address [address] [facility] 7 [place] [address] Care Team Providers Care Station Jailer Name Role Phone Ayaka Salgado MD Primary Care Provider [phone] Reason for Visit * Reason Onset Date Comments Med Refill 01/25/2025 Encounter Details Date Type Department Care Team ([facility] st Contact Info) Description 01/25/2025 Telephone [facility] MEDICINE [address] [place], [place] [phone] Ayaka Salgado MD [address] [facility] [place] [address] Med Refill Social History Tobacco Use Types [...] 10 MG tablet To be sent to: [facility][id number] - [place] - [address] [facility] documented in this encounter Plan of Treatment Upcoming Encounters Date Type Department Care Team (Late st Contact Info) Description 05/31/2025 9:00 AM EDT Clinical Support [facility] MED & PEDS [address] [place] [address] Alana Hook, RACHELLE 505 [place] [address] documented as of this encounter Visit Diagnoses Not on filedocumented in this encounter Additional Health Concerns Assessment Noted Time PHQ-9 Depression Total Score: 12 025 11:13 AM EDT documented as of this encounter Care Teams Station Jailer Relationship Specialty Start Date End Date Ayaka Salgado MD 505 [place] [address] PCP - General Internal Medicine 09/15/18 documented as of this encounter
--- OUTSIDE RECORDS SUMMARY | 2025-05-25 10:52 | XMS_ITS | Encounter Summary ---
Author Organization [employer] Address [address] [place] [address] 7 [place] [address] Care Team Providers Care Cyanide Pot Hardener Name Role Phone Ayaka Salgado MD Primary Care Provider [phone] Reason for Visit * Reason Onset Date Comments Med Refill 03/04/2025 Encounter Details Date Type Department Care Team ([facility] st Contact Info) Description 03/04/2025 Refill [facility] MED & PEDS [address] [place] [address] Ayaka Salgado MD 505 [place] [address] Social History Tobacco Use Types Packs/Day Years [...] encounter Miscellaneous Notes * Telephone Encounter - Ayaka Salgado MD - 03/04/2025 8:50 AM EDT Prescribed by dr Candelario (reactor operator) * Telephone Encounter - Anuja Sood LPN - 03/04/2025 8:14 AM EDT Last seen 02.22.25 * Telephone Encounter - Be Llamas - 03/04/2025 8:11 AM EDT TC from pt requesting medication refill. Medications needing refill : cloNIDine (Catapres) 0.3 MG tablet To be sent to: [facility] #[id number] - [place] - [facility] documented in this encounter Plan of Treatment Upcoming Encounters Date Type Department Care Team (Late st Contact Info) Description 05/31/2025 9:00 AM EDT Clinical Support [facility] MED & PEDS [address] [place] [address] Alana Hook, RN 505 [place] [address] documented as of this encounter Visit Diagnoses Not on filedocumented in this encounter Additional Health Concerns Assessment Noted Time PHQ-9 Depression Total Score: 12 025 11:13 AM EDT documented as of this encounter Care Teams Cyanide Pot Hardener Relationship Specialty Start Date End Date Ayaka Salgado MD [address] [place] [address] PCP - General Internal Medicine 09/15/18 documented as of this encounter
--- OUTSIDE RECORDS SUMMARY | 2025-05-25 10:52 | XMS_ITS | Encounter Summary ---
Author Organization [employer] Address [address] [place] [address] 7 [place] [address] Care Team Providers Care Ticket Taker Name Role Phone Ayaka Salgado MD Primary Care Provider [phone] Reason for Visit * Reason Comments Med Refill Encounter Details Date Type Department Care Team ([facility] st Contact Info) Description 01/06/2023 Refill [facility] CHC MED & PEDS [address] [place] [address] Ayaka Salgado MD [address] [place] [address] Primary osteoarthritis involving multiple joints Social History [...] Description 05/31/2025 9:00 AM EDT Clinical Support [facility] MED & PEDS [address] [place] [address] Alana Hook, RACHELLE 505 [place] [address] documented as of this encounter Visit Diagnoses Diagnosis Primary osteoarthritis involving multiple joints documented in this encounter Additional Health Concerns Assessment Noted Time PHQ-9 Depression Total Score: 7 08/29/20 22 10:26 AM EST documented as of this encounter Care Teams Ticket Taker Relationship Specialty Start Date End Date Ayaka Salgado MD [address] [place] [address] PCP - General Internal Medicine 09/15/18 documented as of this encounter
--- OUTSIDE RECORDS SUMMARY | 2025-05-25 10:52 | XMS_ITS | Encounter Summary ---
Author Organization [employer] Address [address] [facility] 7t [place] [address] Care Team Providers Care Seismometer Operator Name Role Phone Ayaka Salgado MD Primary Care Provider [phone] Encounter Details Date Type Department Care Team ([facility] st Contact Info) Description 05/26/2024 Orders Only [facility] CHC MED & PEDS [address] [place] [address] Ayaka Salgado MD 505 [place], [place] [phone] Simple chronic bronchitis (CMS/HCC) (Primary Dx) Social [...] [facility] [address] [place] [address] Alana Hook, RACHELLE 505 [place] [address] documented as of this encounter Visit Diagnoses Diagnosis Simple chronic bronchitis (CMS/HCC)- Primary Simple chronic bronchitis documented in this encounter Additional Health Concerns Assessment Noted Time PHQ-9 Depression Total Score: 7 08/29/20 22 10:26 AM EST documented as of this encounter Care Teams Seismometer Operator Relationship Specialty Start Date End Date Ayaka Salgado MD 505 [place] [address] PCP - General Internal Medicine 09/15/18 documented as of this encounter
--- OUTSIDE RECORDS SUMMARY | 2025-05-25 10:52 | XMS_ITS | Encounter Summary ---
Author Organization [employer] Address [address] [place] [address] Care Team Providers Care Claim Administrator Name Role Phone Ayaka Salgado MD Primary Care Provider [phone] Reason for Visit * Reason Onset Date Comments Med Refill 12/12/2022 Encounter Details Date Type Department Care Team ([facility] st Contact Info) Description 12/12/2022 Telephone [facility] MED & PEDS 505 [place] [address] Ayaka Salgado MD 505 [place] [address] Med Refill Social History Tobacco Use Types [...] (Percocet) 5-325 MG tablet Please sent to [facility] #[id number] - [place] - [address] [facility] documented in this encounter Plan of Treatment Upcoming Encounters Date Type Department Care Team (Late st Contact Info) Description 05/31/2025 9:00 AM EDT Clinical Support [facility] MED & PEDS 505 [place] [address] Alana Hook, RN 505 [place] [address] documented as of this encounter Visit Diagnoses Not on filedocumented in this encounter Additional Health Concerns Assessment Noted Time PHQ-9 Depression Total Score: 7 08/29/20 22 10:26 AM EST documented as of this encounter Care Teams Claim Administrator Relationship Specialty Start Date End Date Ayaka Salgado MD 505 [place] [address] PCP - General Internal Medicine 09/15/18 documented as of this encounter
--- OUTSIDE RECORDS SUMMARY | 2025-05-25 10:52 | XMS_ITS | Encounter Summary ---
Author Organization [employer] Address [address] [place] [address] 7 [place] [address] Care Team Providers Care Etymology Teacher Name Role Phone Ayaka Salgado MD Primary Care Provider [phone] Reason for Visit * Reason Comments Med Refill Encounter Details Date Type Department Care Team ([facility] st Contact Info) Description 02/24/2023 Refill [facility] CHC MED & PEDS 505 [place] [address] Ayaka Salgado MD 505 [place] [address] Social History Tobacco Use Types Packs/Day Years [...] Upcoming Encounters Date Type Department Care Team ([facility] st Contact Info) Description 05/31/2025 9:00 AM EDT Clinical Support [facility] MED & PEDS 505 [place] [address] Alana Hook, RN 505 [place] [address] documented as of this encounter Visit Diagnoses Not on filedocumented in this encounter Additional Health Concerns Assessment Noted Time PHQ-9 Depression Total Score: 7 08/29/20 22 10:26 AM EST documented as of this encounter Care Teams Etymology Teacher Relationship Specialty Start Date End Date Ayaka Salgado MD 505 [place] [address] PCP - General Internal Medicine 09/15/18 documented as of this encounter
--- OUTSIDE RECORDS SUMMARY | 2025-05-25 10:52 | XMS_ITS | Encounter Summary ---
Author Organization [employer] Address [address] [facility] 7 [place] [address] Care Team Providers Care Bore Mill Operator Name Role Phone Ayaka Salgado MD Primary Care Provider [phone] Reason for Visit * Reason Onset Date Comments Med Refill 09/29/2024 Encounter Details Date Type Department Care Team (Late st Contact Info) Description 09/29/2024 Refill [facility] MEDICINE [address] [place] [address] Ayaka Salgado MD 505 [facility] [address] [place] [phone] Arthropathy (Primary Dx) Social History Tobacco Use [...] 5-325 MG tablet To be sent to: [facility] #[id number] - [place] - [address] [facility] documented in this encounter Plan of Treatment Upcoming Encounters Date Type Department Care Team ([facility] st Contact Info) Description 05/31/2025 9:00 AM EDT Clinical Support [facility] CHC MED & PEDS 505 [place] [address] Alana Hook, RACHELLE 505 [place] [address] documented as of this encounter Visit Diagnoses Diagnosis Arthropathy- Primary Unspecified arthropathy, site unspecified documented in this encounter Additional Health Concerns Assessment Noted Time PHQ-9 Depression Total Score: 7 08/29/20 22 10:26 AM EST documented as of this encounter Care Teams Bore Mill Operator Relationship Specialty Start Date End Date Ayaka Salgado MD 505 [facility] [place] [address] PCP - General Internal Medicine 09/15/18 documented as of this encounter
--- OUTSIDE RECORDS SUMMARY | 2025-05-25 10:52 | XMS_ITS | Encounter Summary ---
Author Organization [employer] Address 75 [facility] 7 [place] [address] Care Team Providers Care Drosophere Operator Name Role Phone Ayaka Salgado MD Primary Care Provider [phone] Reason for Visit * Reason Onset Date Comments Med Refill 01/19/2025 Encounter Details Date Type Department Care Team ([facility] st Contact Info) Description 01/19/[address] [facility] MEDICINE [address] [place], [place] [phone] Ayaka Salgado MD 505 [facility] [place] [address] Med Refill Social History Tobacco Use Types [...] refills and Ambien to soon for refill INSTRUCTION ASSISTANT PRINCIPAL checked on 01/19/25 last filled on 12/26/24 #30. * Telephone Encounter - Cleopatra Ortiz - 01/19/2025 8:14 AM EDT TC from pt requesting medication refill. Medications needing refill : melatonin 5 MG tablet zolpidem (Ambien) 10 MG tablet To be sent to: [facility] #[id number] - [place], [place] - [address] [facility] [place] documented in this encounter Plan of Treatment Upcoming Encounters Date Type Department Care Team ([facility] st Contact Info) Description 05/31/2025 9:00 AM EDT Clinical Support [facility] CHC MED & PEDS 505 [place] [address] Alana Hook, RACHELLE 505 [place] [address] documented as of this encounter Visit Diagnoses Not on filedocumented in this encounter Additional Health Concerns Assessment Noted Time PHQ-9 Depression Total Score: 12 025 11:13 AM EDT documented as of this encounter Care Teams Drosophere Operator Relationship Specialty Start Date End Date Ayaka Salgado MD 505 [place] [address] PCP - General Internal Medicine 09/15/18 documented as of this encounter
--- OUTSIDE RECORDS SUMMARY | 2025-05-25 10:52 | XMS_ITS | Encounter Summary ---
Author Organization [employer] Address 75 [facility] 7t [place] [address] Care Team Providers Care Polisher Hand Name Role Phone Ayaka Salgado MD Primary Care Provider [phone] Encounter Details Date Type Department Care Team ([facility] st Contact Info) Description 03/04/2025 Orders Only [facility] CHC MED & PEDS 505 [place] [address] Ayaka Salgado MD 505 [place], [place] [phone] Social History Tobacco Use Types Packs/Day Years [...] Description 05/31/2025 9:00 AM EDT Clinical Support [facility] MED & PEDS 505 [place] [address] Alana Hook, RACHELLE 505 [place] [address] documented as of this encounter Visit Diagnoses Not on filedocumented in this encounter Additional Health Concerns Assessment Noted Time PHQ-9 Depression Total Score: 12 025 11:13 AM EDT documented as of this encounter Care Teams Polisher Hand Relationship Specialty Start Date End Date Ayaka Salgado MD 505 [place] [address] PCP - General Internal Medicine 09/15/18 documented as of this encounter
--- OUTSIDE RECORDS SUMMARY | 2025-05-25 10:52 | XMS_ITS | Encounter Summary ---
Author Organization [employer] Address [address] [place] [address] 7 [place] [address] Care Team Providers Care Labor Relations Analyst Name Role Phone Ayaka Salgado MD Primary Care Provider [phone] Reason for Visit * Reason Comments Med Refill Encounter Details Date Type Department Care Team ([facility] st Contact Info) Description 05/20/2025 Refill [facility] CHC MED & PEDS 505 [place] [address] Ayaka Salgado MD 505 [place] [address] Social History Tobacco Use Types Packs/Day Years [...] Description 05/31/2025 9:00 AM EDT Clinical Support [facility] CHC MED & PEDS 505 [place] [address] Alana Hook, RACHELLE 505 [place] [address] documented as of this encounter Visit Diagnoses Not on filedocumented in this encounter Additional Health Concerns Assessment Noted Time PHQ-9 Depression Total Score: 12 025 11:13 AM EDT documented as of this encounter Care Teams Labor Relations Analyst Relationship Specialty Start Date End Date Ayaka Salgado MD 505 [place] [address] PCP - General Internal Medicine 09/15/18 documented as of this encounter
--- OUTSIDE RECORDS SUMMARY | 2025-05-25 10:52 | XMS_ITS | Encounter Summary ---
Author Organization [employer] Address 75 [facility] 7 [place] [address] Care Team Providers Care Director Of Religious Activities Name Role Phone Ayaka Salgado MD Primary Care Provider [phone] Reason for Visit * Reason Onset Date Comments Med Refill 02/28/2025 Encounter Details Date Type Department Care Team ([facility] st Contact Info) Description 02/28/2025 Telephone [facility] MEDICINE [address] [place], [place] [phone] Ayaka Salgado MD 505 [facility] [place] [address] Med Refill Social History Tobacco Use Types [...] * Telephone Encounter - Cleopatra Ortiz - 02/28/2025 8:10 AM EDT TC from pt requesting medication refill. Medications needing refill : oxyCODONE-acetaminophen (Percocet) 5-325 MG tablet To be sent to: [facility] #[id number] - [place] - [address] [facility] documented in this encounter Plan of Treatment Upcoming Encounters Date Type Department Care Team ([facility] st Contact Info) Description 05/31/2025 9:00 AM EDT Clinical Support [facility] CHC MED & PEDS 505 [facility] [place] [address] Alana Hook, RACHELLE 505 [facility] [place] [address] documented as of this encounter Visit Diagnoses Not on filedocumented in this encounter Additional Health Concerns Assessment Noted Time PHQ-9 Depression Total Score: 12 025 11:13 AM EDT documented as of this encounter Care Teams Director Of Religious Activities Relationship Specialty Start Date End Date Ayaka Salgado MD [address] [place] [address] PCP - General Internal Medicine 09/15/18 documented as of this encounter
--- OUTSIDE RECORDS SUMMARY | 2025-05-25 10:52 | XMS_ITS | Encounter Summary ---
Author Organization [employer] Address [address] [place] [address] 7t [place] [address] Care Team Providers Care Auto Mechanics Instructor Name Role Phone Ayaka Salgado MD Primary Care Provider [phone] Encounter Details Date Type Department Care Team (Late st Contact Info) Description 01/23/2023 Abstract [facility] Information Management 230 [place] [address] Ayaka Salgado MD 505 [place], [place] [phone] Social History Tobacco Use Types Packs/Day Years [...] Description 05/31/2025 9:00 AM EDT Clinical Support [facility] MED & PEDS 505 [place] [address] Alana Hook, RACHELLE 505 [place] [address] documented as of this encounter Visit Diagnoses Not on filedocumented in this encounter Additional Health Concerns Assessment Noted Time PHQ-9 Depression Total Score: 7 08/29/20 22 10:26 AM EST documented as of this encounter Care Teams Auto Mechanics Instructor Relationship Specialty Start Date End Date Ayaka Salgado MD 505 [place] [address] PCP - General Internal Medicine 09/15/18 documented as of this encounter
--- OUTSIDE RECORDS SUMMARY | 2025-05-25 10:52 | XMS_ITS | Encounter Summary ---
Author Organization [employer] Address 75 [facility] 7t [place] [address] Care Team Providers Care Labor Conciliator Name Role Phone Ayaka Salgado MD Primary Care Provider [phone] Encounter Details Date Type Department Care Team (Late st Contact Info) Description 10/11/2022 Orders Only [facility] MEDICINE 230 [place] [address] Ayaka Salgado MD [address] [place] [id number] Congestive heart failure, unspecified HF chronicity, unspecified [...] Team ([facility] st Contact Info) Description 05/31/2025 9:00 AM EDT Clinical Support [facility] MED & PEDS 505 [place] [address] Alana Hook RN 505 [place] [address] documented as of this encounter Visit Diagnoses Diagnosis Congestive heart failure, unspecified HF chronicity, unspecified heart failure type (CMS/HCC) Edema of foot Edema documented in this encounter Additional Health Concerns Assessment Noted Time PHQ-9 Depression Total Score: 7 08/29/20 22 10:26 AM EST documented as of this encounter Care Teams Labor Conciliator Relationship Specialty Start Date End Date Ayaka Salgado MD 505 [place] [address] PCP - General Internal Medicine 09/15/18 documented as of this encounter
--- OUTSIDE RECORDS SUMMARY | 2025-05-25 10:52 | XMS_ITS | Encounter Summary ---
Author Organization [employer] Address [address] [place] [address] 7 [place] [address] Care Team Providers Care Infant Childcare Provider Name Role Phone Aykaa Salgado MD Primary Care Provider [phone] Reason for Visit * Reason Comments Med Refill Encounter Details Date Type Department Care Team ([facility] st Contact Info) Description 03/26/2025 Refill [facility] CHC MED & PEDS [address] [place] [address] Ayaka Salgado MD 505 [place] [address] Social History Tobacco Use Types Packs/Day Years [...] 9:00 AM EDT Clinical Support [facility] CHC MED & PEDS [address] [place] [address] Alana Hook, RACHELLE 505 [place] [address] documented as of this encounter Visit Diagnoses Not on filedocumented in this encounter Additional Health Concerns Assessment Noted Time PHQ-9 Depression Total Score: 12 025 11:13 AM EDT documented as of this encounter Care Teams Infant Childcare Provider Relationship Specialty Start Date End Date Ayaka Salgado MD 505 [place] [address] PCP - General Internal Medicine 09/15/18 documented as of this encounter
--- OUTSIDE RECORDS SUMMARY | 2025-05-25 10:52 | XMS_ITS | Encounter Summary ---
Author Organization [employer] Address [address] [place] [address] Care Team Providers Care Cake Batter Mixer Name Role Phone Ayaka Salgado MD Primary Care Provider [phone] Reason for Visit * Reason Onset Date Comments Letter Accomodation 12/12/2022 Encounter Details Date Type Department Care Team ([facility] st Contact Info) Description 12/12/2022 Telephone [facility] MED & PEDS 505 [place] [address] Ayaka Salgado MD 505 [place] [address] Letter Accomodation Social History Tobacco Use Types [...] hisPercocet. Advised message will be forwarded to HEAD KILN OPERATOR nurse regarding his request. Pt verbalizes understanding. * Telephone Encounter - Abiel Mills - 12/12/2022 9:32 AM EDT Tc from pt requesting an Accomodation letter. Please contact pt at [phone] documented in this encounter Plan of Treatment Upcoming Encounters Date Type Department Care Team (Late st Contact Info) Description 05/31/2025 9:00 AM EDT Clinical Support [facility] MED & PEDS 505 [place] [address] Alana Hook, RN 505 [place] [address] documented as of this encounter Visit Diagnoses Diagnosis Congestive heart failure, unspecified HF chronicity, unspecified heart failure type (CMS/[facility]) Primary osteoarthritis involving multiple joints documented in this encounter Additional Health Concerns Assessment Noted Time PHQ-9 Depression Total Score: 7 08/29/20 22 10:26 AM EST documented as of this encounter Care Teams Cake Batter Mixer Relationship Specialty Start Date End Date Ayaka Salgado MD [address] [place] [address] PCP - General Internal Medicine 09/15/18 documented as of this encounter
--- OUTSIDE RECORDS SUMMARY | 2025-05-25 10:52 | XMS_ITS | Encounter Summary ---
Author Organization [employer] Address [address] [place] [address] 7 [place] [address] Care Team Providers Care Repair Table Operator Name Role Phone Ayaka Salgado MD Primary Care Provider [phone] Reason for Visit * Reason Onset Date Comments Nurse Triage 02/04/2025 Encounter Details Date Type Department Care Team ([facility] st Contact Info) Description 02/04/2025 Telephone [facility] MED & PEDS [address] [place] [address] Ayaka Salgado MD 505 [place] [address] Nurse Triage Social History Tobacco Use Types [...] encounter Miscellaneous Notes * Telephone Encounter - Maris Capone - 02/04/2025 1:44 PM EDT Tc from rn complex care Jaleel stating pt had cardiac procedure done. Jaleel reported pt removed bandage and is bleeding. Underwriting Support Manager advise will send a message to triage nurse. Contact pt at [phone] If any questions Jaleel at [phone] ext [phone] documented in this encounter Plan of Treatment Upcoming Encounters Date Type Department Care Team (Late st Contact Info) Description 05/31/2025 9:00 AM EDT Clinical Support [facility] MED & PEDS 505 [place] [address] Alana Hook, RACHELLE 505 [place] [address] documented as of this encounter Visit Diagnoses Diagnosis Arthropathy Unspecified arthropathy, site unspecified documented in this encounter Additional Health Concerns Assessment Noted Time PHQ-9 Depression Total Score: 12 025 11:13 AM EDT documented as of this encounter Care Teams Repair Table Operator Relationship Specialty Start Date End Date Ayaka Salgado MD [address] [place] [address] PCP - General Internal Medicine 09/15/18 documented as of this encounter
--- OUTSIDE RECORDS SUMMARY | 2025-05-25 10:52 | XMS_ITS | Encounter Summary ---
Author Organization [employer] Address [address] [place] [address] 7 [place] [address] Care Team Providers Care Hiv Nurse Name Role Phone Ayaka Salgado MD Primary Care Provider [phone] Reason for Visit * Reason Onset Date Comments Med Refill 05/12/2025 Encounter Details Date Type Department Care Team ([facility] st Contact Info) Description 05/12/[address] [facility] CHC MED & PEDS 505 [place] [address] Ayaka Salgado MD 505 [place] [address] Med Refill Social History Tobacco Use Types [...] Telephone Encounter - Lissa White LPN - 05/12/2025 10:04 AM EDT Medication was sent to [facility] #[id number] on 11/22/24 with 11 refills. * Telephone Encounter - Be Llamas - 05/12/2025 10:00 AM EDT TC from pt requesting medication refill. Medications needing refill : guaiFENesin (Mucinex) 600 MG 12 hr tablet To be sent to: [facility] #[id number] - [place] AT [facility] [place] documented in this encounter Plan of Treatment Upcoming Encounters Date Type Department Care Team ([facility] st Contact Info) Description 05/31/2025 9:00 AM EDT Clinical Support [facility] CHC MED & PEDS 505 [place] [address] Alana Hoko, RACHELLE 505 [place] [address] documented as of this encounter Visit Diagnoses Not on filedocumented in this encounter Additional Health Concerns Assessment Noted Time PHQ-9 Depression Total Score: 12 025 11:13 AM EDT documented as of this encounter Care Teams Hiv Nurse Relationship Specialty Start Date End Date Ayaka Salgado MD 505 [place] [address] PCP - General Internal Medicine 09/15/18 documented as of this encounter
--- OUTSIDE RECORDS SUMMARY | 2025-05-25 10:52 | XMS_ITS | Encounter Summary ---
Author Organization [employer] Address 75 [facility] 7 [place] [address] Care Team Providers Care Ground Mixer Name Role Phone Ayaka Salgado MD Primary Care Provider [phone] Reason for Visit * Reason Onset Date Comments Med Refill 02/08/2025 Encounter Details Date Type Department Care Team ([facility] st Contact Info) Description 02/08/2025 Telephone [facility] MEDICINE 230 [place], [place] [phone] Ayaka Salgado MD 505 [facility] [place] [address] Med Refill Social History Tobacco Use Types [...] encounter Miscellaneous Notes * Telephone Encounter - Be Llamas - 02/10/2025 9:38 AM EDT TC from pt requesting status of medication. Contact pt at [phone] * Telephone Encounter - Cleopatra Ortiz - 02/08/2025 10:21 AM EDT TC from pt requesting medication refill. Medications needing refill : oxyCODONE-acetaminophen (Percocet) 5-325 MG tablet To be sent to: [facility] #[id number] - [place] - [address] [facility] [place] documented in this encounter Plan of Treatment Upcoming Encounters Date Type Department Care Team ([facility] st Contact Info) Description 05/31/2025 9:00 AM EDT Clinical Support [facility] CHC MED & PEDS 505 [place] [address] Alana Hook, RACHELLE 505 [place] [address] documented as of this encounter Visit Diagnoses Not on filedocumented in this encounter Additional Health Concerns Assessment Noted Time PHQ-9 Depression Total Score: 12 025 11:13 AM EDT documented as of this encounter Care Teams Ground Mixer Relationship Specialty Start Date End Date Ayaka Salgado MD 505 [place] [address] PCP - General Internal Medicine 09/15/18 documented as of this encounter
--- OUTSIDE RECORDS SUMMARY | 2025-05-25 10:52 | XMS_ITS | Encounter Summary ---
Author Organization [employer] Address [address] [facility] 7 [place] [address] Care Team Providers Care Forge Operator Name Role Phone Ayaka Salgado MD Primary Care Provider [phone] Reason for Visit * Reason Onset Date Comments Med Refill 01/19/2025 Encounter Details Date Type Department Care Team ([facility] st Contact Info) Description 01/19/2025 Telephone [facility] [address] [place], [place] [phone] Ayaka Salgado MD 505 [facility] [place] [address] Med Refill Social History Tobacco Use Types [...] 5-325 MG tablet To be sent to: [id number] - [place] - [address] [facility] documented in this encounter Plan of Treatment Upcoming Encounters Date Type Department Care Team ([facility] st Contact Info) Description 05/31/2025 9:00 AM EDT Clinical Support [facility]EDS 505 [facility] [place] [phone] Alana Hook, RACHELLE [address] [facility] [place] [address] documented as of this encounter Visit Diagnoses Not on filedocumented in this encounter Additional Health Concerns Assessment Noted Time PHQ-9 Depression Total Score: 12 025 11:13 AM EDT documented as of this encounter Care Teams Forge Operator Relationship Specialty Start Date End Date Ayaka Salgado MD [address] [place] [id number] PCP - General Internal Medicine 09/15/18 documented as of this encounter
--- OUTSIDE RECORDS SUMMARY | 2025-05-25 10:52 | XMS_ITS | Encounter Summary ---
Author Organization [employer] Address 75 [facility] 7t [place] [address] Care Team Providers Care Maintenance Technician 3Rd Shift Name Role Phone Ayaka Salgado MD Primary Care Provider [phone] Reason for Visit * Reason Comments Med Refill Encounter Details Date Type Department Care Team (Late st Contact Info) Description 03/02/2024 Refill [facility] MEDICINE 230 [place] [address] Ayaka Salgado MD [address] [facility] [address] [place] [phone] Primary osteoarthritis involving multiple joints Social History [facility] 505 [place] [address] Alana Hook, RACHELLE 505 [place] [address] documented as of this encounter Visit Diagnoses Diagnosis Primary osteoarthritis involving multiple joints documented in this encounter Additional Health Concerns Assessment Noted Time PHQ-9 Depression Total Score: 7 08/29/20 22 10:26 AM EST documented as of this encounter Care Teams Maintenance Technician 3Rd Shift Relationship Specialty Start Date End Date Ayaka Salgado MD 505 [place] [address] PCP - General Internal Medicine 09/15/18 documented as of this encounter
--- OUTSIDE RECORDS SUMMARY | 2025-05-25 10:52 | XMS_ITS | Encounter Summary ---
Author Organization [employer] Address 75 [facility] 7t [place] [address] Care Team Providers Care Film Flat Inspector Name Role Phone Ayaka Salgado MD Primary Care Provider [phone] Encounter Details Date Type Department Care Team (Late st Contact Info) Description 04/29/2024 Telephone [facility]INE 230 [place] [address] Ayaka Salgado MD [address] [place] [phone] Social History Tobacco Use Types Packs/Day Years [...] 10 MG tablet To be sent to: [id number] - [place], [place] - [address] [facility] documented in this encounter Plan of Treatment Upcoming Encounters Date Type Department Care Team (Late st Contact Info) Description 05/31/2025 9:00 AM EDT Clinical Support [facility] MED & PEDS 505 [place] [address] Alana Hook RN 505 [place] [address] documented as of this encounter Visit Diagnoses Not on filedocumented in this encounter Additional Health Concerns Assessment Noted Time PHQ-9 Depression Total Score: 7 08/29/20 22 10:26 AM EST documented as of this encounter Care Teams Film Flat Inspector Relationship Specialty Start Date End Date Ayaka Salgado MD 505 [place] [address] PCP - General Internal Medicine 09/15/18 documented as of this encounter
[2025-05-25 14:35] LABS: Hematocrit 32.9 % (42.0-52.0); Hemoglobin 10.4 g/dl (14.0-18.0); Mean Corpuscular HGB Conc 31.6 g/dl (31.0-36.0); Mean Corpuscular Hemoglobin 26.2 pg (27.0-33.0); Mean Corpuscular Volume 82.9 fL (80.0-98.0); NRBC Abs Auto 0.000 X10*3/uL (0.0-0.012); NRBC Pct Auto 0.0 /100WBC (0.0-0.2); Platelet Count 169 X10*3/uL (160-400); Red Blood Count 3.97 X10*6/uL (4.60-5.80); White Blood Count 5.2 X10*3/uL (4.8-10.8)
[2025-05-25 15:27] LABS: Anion Gap 13 (12-20); Blood Urea Nitrogen 57 mg/dL (9-16); Calcium 10.2 mg/dL (8.4-10.2); Carbon Dioxide 23 mmol/L (22-29); Chloride 108 mmol/L (96-108); Estimated Glomerular Filt Rate 11; Potassium 4.3 mmol/L (3.3-5.1); Sodium 140 mmol/L (135-145)
== END 2025-05-25 09:10 | disposition home or self-care (01) ==
LOC: HO.CHCLDS 09:09
PROVIDERS: Visit Provider Internal Medicine Hypertension Specialist
DX: N18.5 Chronic kidney disease, stage 5 (principal)
CPT/HCPCS: 36415; 80048; 85027

== ENCOUNTER → 2025-05-26 23:59 | Outpatient (BNV) | payer MEDICARE, SELFPAY ==
--- NOTE | 2025-06-07 18:46 | A.OFFVIS_ITS ---
Intake Visit Reasons: Remote cardiomems- St Jr Allergies aspirin Adverse Reaction (Unknown, Verified 05/31/25 09:41) nose bleeds metformin Adverse Reaction (Unknown, Verified 05/31/25 09:41) hypoglycemia warfarin (From Coumadin) Adverse Reaction (Unknown, Verified 05/31/25 09:41) Nose Bleed apixaban Adverse Reaction (Verified 05/31/25 09:41) Nose Bleed clopidogrel Adverse Reaction (Verified 05/31/25 09:41) Nose Bleed FOR[facility], 1928–1983 Medical History Obesity (BMI 30-39.9) Elevated brain natriuretic peptide (BNP) level Lower extremity edema COPD (chronic obstructive pulmonary disease) LEONEL (obstructive sleep apnea) Dyspnea on minimal exertion COPD (chronic obstructive pulmonary disease) Smoker Left ventricular hypertrophy Smoking CKD (chronic kidney disease) Obesity Dyslipidemia Hypertension Diabetes mellitus Surgical History No pertinent past surgical history Family History Father No problems noted. Mother Diabetes Family/Other No problems noted. Social History Household Members: Significant Other Housing: Apartment Do you presently have visiting nurse or other home services: No Alcohol intake: current Alcohol intake frequency: a few times a month Patient Tobacco Use Status: Former Tobacco user e-Cigarette/Vaping Use: Never Used Second Hand Smoke Exposure: No Advance Directives Date on File: 08/23/22 service: No Current occupational status: disabled Office Procedures Cardiac Device Check Cardiac Device Check Details: Monitoring period dates: 04/13/25- 05/26/25 Optimal PA pressure range: PAD goal 16mmhg Procedure code: 41094 BACKGROUND: Lewis is implanted with the CardioMEMS PA Sensor.? I use this technology to monitor PA pressures on a weekly basis to ensure patients are within their optimal range to prevent decompensation.? SUMMARY:? I utilized the remote monitoring platform ([employer]) to set optimal targets for pulmonary artery pressure thresholds as part of acute and chronic management of patient?s heart failure. During the period indicated above, I monitored the patient?s pulmonary artery pressures weekly via trend analysis and notification reports which provide alerts when patient?s PA pressures were outside of range to prompt immediate action in medication changes and communications.? The weekly reports are archived in the [employer] system which serve as a parallel record to document weekly PA pressures, medication changes, and clinical notes. I have reviewed readings on 04/15, 04/22, 04/29, 05/06, 05/13, 05/20, 05/26. Readings have ranged between 17-23mmhg. He has advanced CKD and no diuretic changes were made. 09854 - Remote monitoring of wireless pulmonary artery pressure sensor Procedure code (CPT) selection complete Assessment & Plan Assessment & Plan (1) Presence of CardioMEMS HF system: Code(s): Z95.818 - Presence of other cardiac implants and grafts Category: Medical Plan: monthly report Coding Level of Care Code Procedure Only Diagnoses Presence of CardioMEMS HF system Z95.818 CPT Codes Cardiac Device Check - Cardiac Device 17: 71367 - Remote monitoring of wireless pulmonary artery pressure sensor ([id number])
== END ==
PROVIDERS: PCP Internal Medicine; Visit Provider Nurse Practitioner Family
DX: Z45.09 Encounter for adjustment and management of other cardiac device (principal)
CPT/HCPCS: 93264

== ENCOUNTER 2025-05-31 09:36 | Outpatient (AMB) | payer MEDICARE, SELFPAY ==
--- OUTSIDE RECORDS SUMMARY | 2025-05-31 09:00 | XMS_ITS | Encounter Summary ---
Author Organization [employer] Address [address] [place] [address] 7 [place] [address] Care Team Providers Care Senior Research Project Manager Name Role Phone Ayaka Salgado MD Primary Care Provider [phone] Reason for Visit * Reason Comments [employer] Encounter Details Date Type Department Care Team (Latest Contact Info) Description 05/31/2025 9:00 AM EDT Clinical Support [facility] MED & PEDS 505 [place], [place] [phone] Alana Hook, RACHELLE 505 [place], [place] Back pain, unspecified back location, unspecified back [...] AM EDT documented as of this encounter Progress Notes * Alana Hook RN - 05/31/2025 9:00 AM EDT SUBJECTIVE: Lewis Saldivar is a 69 y.o. year old male who presents for [employer] Preferred language for medical information: Ugandan Interpreted needed: No Lewis Saldivar does report adherence to Percocet 5-325 mg, take 1 tablet every 6 hours PRN, last refilled 05/13/25. The patient last took Percocet on: 05/30/25 Medication is: 90% % effective at alleviating pain. OBJECTIVE: CASE ADVOCATE checked: 05/31/2025 Pill count completed for Percocet , count today is 21 , anticipated count should be 0, this is as expected. Vital Signs Pain Score: 7 Pain Loc: Knee Pain Education: Yes Additional pain site: bilateral knees Last PCP visit: 02/22/25 BPI completed on: 05/31/2025 , pain severity score: 6, activity interference score: 2 BPI completed on: 11/24/24 , pain severity score: 2, activity interference score: 2 Controlled substance agreement signed: Controlled Substance Agreement 11/24/2024 [employer] Tier: 2 Current Medications[1] Smoking status: Denies ETOH use: Yes . ETOH use, pt educated of the risks associated with the combination of ETOH and opioids, verbalized understanding. Illicit substances: Denies Marijuana use: No Lab Results Component Value Date POCTHC Negative 05/31/2025 POCCOCAINEUR Negative 05/31/2025 POCOPIATEUR Negative 05/31/2025 DOAUR Negative 05/31/2025 POCAMPHETAMI Negative 05/31/2025 POCBENZODIUR Negative 05/31/2025 POCBARBSCRN Negative 05/31/2025 POCMETHADOUR Negative 05/31/2025 POCBUPSCRN Negative 05/31/2025 POCTCAUR Negative 05/31/2025 POCMDMAUR Negative 05/31/2025 POCOXYCODONE Negative 05/31/2025 POCPHENCYCUR Negative 05/31/2025 PROPOXUR Negative 05/31/2025 FENTANYLURIN Negative 05/31/2025 ASSESSMENT: Encounter Diagnosis Name Primary? Back pain, unspecified back location, unspecified back pain laterality, unspecified chronicity PLAN: Information on pain group given: Previously discussed Information on acupuncture given: Previously discussed Narcan education provided: Previously discussed Narcan prescription: inactive- refill request submitted to provider Lewis Saldivar will continue taking medication as prescribed and follow up at the next [employer] visit or sooner if needed. Lewis Saldivar has verbalized understanding of care plan. Future Appointments Date Time Provider Department Center 08/17/2025 9:00 AM Alana Hook RN [facility] Alana Hook RN [1] Current Outpatient Medications: albuterol (2.5 MG/3ML) 0.083% nebulizer solution, Take 3 mL (2.5 mg) by nebulization every 4 (four)hours if needed for wheezing., Disp: 75 mL, Rfl: 3 albuterol 108 (90 Base) MCG/ACT inhaler, Inhale 2 puffs every 6 (six) hours if needed for wheezing., Disp: 18 g, Rfl: 11 Alcohol Swabs (Alcohol Prep) 70 % pads, APPLY 1 PAD TO SKIN TWICE DAILY DIRECTED, Disp: 200 each, Rfl: 11 amLODIPine (Norvasc) 5 MG tablet, Take 1 tablet (5 mg) by mouth in the morning. Take 1 tablet by mouth daily, Disp: 30 tablet, Rfl: 11 ammonium lactate (Lac-Hydrin Twelve) 12 % lotion, Apply topically if needed for dry skin., Disp: 225 g, Rfl: 1 aspirin 81 MG EC tablet, Take 1 tablet by mouth in the morning., Disp: , Rfl: Blood Glucose Monitoring Suppl (GI Track Verio) w/Device kit, USE TO TEST BLOOD SUGAR TWICE A DAY, Disp: 1 kit, Rfl: 0 Blood Pressure kit, Use daily, Disp: , Rfl: budesonide-formoterol (Symbicort) 160-4.5 MCG/ACT inhaler, Inhale 2 puffs in the morning and at bedtime., Disp: 1 each, Rfl: 0 bumetanide (Bumex) 1 MG tablet, TAKE 1 TABLET(1 MG) BY MOUTH TWICE DAILY, Disp: 180 tablet, Rfl: 3 cholecalciferol (Vitamin D-3) 25 MCG (1000 UT) tablet, Take 1 tablet by mouth. Every day, Disp: , Rfl: cinacalcet (Sensipar) 30 MG tablet, take 1 tablet (30MG) by oral route every day with food, Disp: ,Rfl: cloNIDine (Catapres) 0.3 MG tablet, TAKE 1 TABLET BY MOUTH THREE TIMES DAILY, Disp: 270 tablet, Rfl: 0 dextran 70-hypromellose (artificial tears) 0.1-0.3 % ophthalmic solution, 1 drop 4 times a day as needed, Disp: , Rfl: Diclofenac Sodium 1 % gel, Apply topically. 2 times every day to the affected area(s), Disp: , Rfl: docusate sodium (Colace) 100 MG capsule, take 1 capsule to 2 capsules by oral route every day at bedtime as needed, Disp: , Rfl: doxycycline (Vibra-Tabs) 100 MG tablet, Take 1 tablet (100 mg) by mouth 2 times daily. Take with a full glass of water and do not lie down for at least 30 minutes after., Disp: 20 tablet, Rfl: 0 Elastic Bandages & Supports (Medical Compression Socks) [facility], To use daily before getting out of bed, Disp: , Rfl: gabapentin (Neurontin) 300 MG capsule, Take 1 capsule (300 mg) by mouth 3 times daily., Disp: 90 capsule, Rfl: 11 glimepiride (Amaryl) 1 MG tablet, TAKE 1 TABLET(1 MG) BY MOUTH EVERY DAY BEFORE BREAKFAST, Disp: 90tablet, Rfl: 3 glucose blood (FREESTYLE LITE) test strip, USE TO TEST BLOOD SUGAR TWICE A DAY, Disp: 100 each, Rfl: 3 guaiFENesin (Mucinex) 600 MG 12 hr tablet, Take 2 tablets (1,200 mg) by mouth 2 times daily., Disp:20 tablet, Rfl: 0 guaiFENesin (Mucinex) 600 MG 12 hr tablet, Take 2 tablets (1,200 mg) by mouth 2 times daily. Do notcrush, chew, or split., Disp: 120 tablet, Rfl: 11 hydrALAZINE (Apresoline) 100 MG tablet, TAKE 1 TABLET BY MOUTH THREE TIMES DAILY WITH FOOD, Disp: 270 tablet, Rfl: 3 hydrOXYzine pamoate (Vistaril) 50 MG capsule, TAKE 1 CAPSULE(50 MG) BY MOUTH AT BEDTIME NEEDED FOR ITCHING, Disp: 30 capsule, Rfl: 0 ivermectin (Stromectol) 3 MG tablet, 5 tabs today . 5 tabs next friday, Disp: 10 tablet, Rfl: 0 Januvia 25 MG tablet, TAKE 1 TABLET(25 MG) BY MOUTH IN THE MORNING, Disp: 30 tablet, Rfl: 11 labetalol (Normodyne) 300 MG tablet, Take 1 tablet (300 mg) by mouth 2 times daily., Disp: 60 tablet, Rfl: 11 lidocaine (Lidoderm) 5 % patch, APPLY 1 PATCH TOPICALLY TO THE SKIN EVERY DAY. MAY WEAR UP TO 12 HOURS, Disp: 30 patch, Rfl: 11 losartan (Cozaar) 100 MG tablet, TAKE 1 TABLET BY MOUTH EVERY DAY, Disp: 90 tablet, Rfl: 1 melatonin 5 MG tablet, 1 tab of 5 mg at bedtime, Disp: 90 tablet, Rfl: 1 Misc. Devices (Pulse Oximeter) [facility], USE DIRECTED, Disp: , Rfl: naloxone (Narcan) 4 mg/0.1 mL nasal spray, Administer 0.1 mL into affected nostril(s)., Disp: , Rfl: OneTouch Delica Lancets 33G [facility], USE TO TEST BLOOD SUGAR TWICE A DAY, Disp: 100 each, Rfl: 5 OneTouch Verio test strip, USE TO TEST BLOOD SUGAR TWICE A DAY, Disp: 100 strip, Rfl: 11 oxyCODONE-acetaminophen (Percocet) 5-325 MG tablet, Take 1 tablet by mouth every 6 (six) hours if needed for severe pain., Disp: 42 tablet, Rfl: 0 polyethylene glycol, PEG, 3350 (MiraLax) 17 GM/SCOOP powder, take (17G) by oral route every day mixed with 8 oz. water, juice, soda, coffee or tea, Disp: , Rfl: simethicone (Mylicon,Gas-X) 125 MG capsule, take 1 tablet by oral route 4 times every day, Disp: , Rfl: simvastatin (Zocor) 20 MG tablet, Take 1 tablet (20 mg) by mouth at bedtime., Disp: 90 tablet, Rfl:3 tiotropium (Spiriva HandiHaler) 18 MCG inhalation capsule, Place 1 capsule (18 mcg) into inhaler and inhale in the morning., Disp: 30 capsule, Rfl: 11 triamcinolone (Kenalog) 0.1 % cream, Apply topically if needed in the morning and at bedtime (pain and swelling)., Disp: 80 g, Rfl: 2 triamcinolone (Kenalog) 0.1 % cream, Apply topically if needed in the morning and at bedtime (pain and swelling)., Disp: 80 g, Rfl: 3 Umeclidinium [place] (Incruse Ellipta) 62.5 MCG/ACT aerosol powder , Inhale 1 Act (62.5 mcg) Once per day AND 1 Act (62.5 mcg) Once per day., Disp: 30 each, Rfl: 11 zolpidem (Ambien) 10 MG tablet, TAKE 1 TABLET BY MOUTH AT BEDTIME NEEDED FOR SLEEP, Disp: 30 tablet, Rfl: 0 zolpidem (Ambien) 10 MG tablet, TAKE 1 TABLET BY MOUTH AT BEDTIME NEEDED FOR SLEEP, Disp: 30 tablet, Rfl: 0 documented in this encounter Plan of Treatment Upcoming Encounters Date Type Department Care Team (Late st Contact Info) Description 08/17/2025 9:00 AM EST Clinical Support [facility] [address] [place] [address] Alana Hook, RN 505 [place] [address] documented as of this encounter Procedures Procedure Name Priority Date/Time Associated Diagnosis Comments POCT VESNA-14 URINE DRUG SCREEN Routine 05/31/2025 9:04 AM EDT Back pain, unspecified back location, unspecified back pain laterality, unspecified chronicity documented in this encounter Results * POCT VESNA-14 Urine Drug Screen (05/31/2025 9:04 AM EDT) THC Negative Negative Cocaine Screen, Urine Negative Negative Opiate Screen, Urine Negative Negative Methamphetamine Screen Urine Negative Negative Amphetamine Screen, Urine Negative Negative Benzodiazepines Screen, Urine Negative Negative Barbiturate Screen, Urine Negative Negative Methadone Screen, Urine Negative Negative Buprenophine Screen, Urine Negative Negative TCA, Urine Negative Negative MDMA Urine Negative Negative ng/mL Oxycodone Screen, Urine Negative Negative Phencyclidine (PCP), Urine Negative Negative Propoxyphene, Urine Negative Negative Fentanyl, Urine Negative Negative Urine Urine specimen obtained by clean catch procedure / Unknown 05/31/2025 9:04 AM EDT Narrative Alana Hook RN - 05/31/2025 9:04 AM EDT . Internal Pass Control Lot# [id number] Exp: 07-15-26 Ayaka Salgado MD POINT OF CARE TEST ENTER/ED IT ORDERABLES Final Result documented in this encounter Visit Diagnoses Diagnosis Back pain, unspecified back location, unspecified back pain laterality, unspecified chronicity documented in this encounter Additional Health Concerns Assessment Noted Time PHQ-9 Depression Total Score: 12 2 025 11:13 AM EDT documented as of this encounter Care Teams Senior Research Project Manager Relationship Specialty Start Date End Date Ayaka Salgado MD 505 [place] [address] PCP - General Internal Medicine 09/15/18 documented as of this encounter
[2025-05-31 09:39] VITALS: BP 130/70; PULSE 67; O2SAT 98; BMI 33.7
--- NOTE | 2025-05-31 09:39 | HO.NEPHOV_ITS ---
Vital Signs 05/31/25 09:39 Height 5 ft 7 in Weight 215 lb BMI 33.7 BP 130/70 Blood Pressure Location Lt brachial Position Sitting Pulse 67 Pulse Source Pulse Oximeter Pulse Oximetry (%) 98 Oxygen Delivery Method Room Air Intake Visit Reasons: 1 MO FU-Conf Program Mgr Required: No Accompanied by: Self / Same As Patient Allergies aspirin Adverse Reaction (Unknown, Verified 05/31/25 09:41) nose bleeds metformin Adverse Reaction (Unknown, Verified 05/31/25 09:41) hypoglycemia warfarin (From Coumadin) Adverse Reaction (Unknown, Verified 05/31/25 09:41) Nose Bleed apixaban Adverse Reaction (Verified 05/31/25 09:41) Nose Bleed clopidogrel Adverse Reaction (Verified 05/31/25 09:41) Nose Bleed Medication List - Last Reconciled 05/31/25 by Ross Baldwin MD acetaminophen (Tylenol) 650 mg PO Q6H PRN albuterol sulfate 90 mcg/actuation (Ventolin HFA) inhalation albuterol sulfate mg inhalation aspirin 81 mg PO DAILY blood-glucose meter (FreeStyle Lite Meter kit) As directed bumetanide 1 mg PO BID calcitriol 0.25 mcg PO DAILY cholecalciferol (vitamin D3) 25 mcg PO Q48H cinacalcet 30 mg PO DAILY clonidine HCl 0.2 mg PO TID clopidogrel 75 mg PO DAILY gabapentin 300 mg PO TID glimepiride 1 mg PO DAILY hydralazine 100 mg PO TID labetalol 300 mg PO BID lancets (FreeStyle Lancets) As directed lidocaine 5% 1 patch topical DAILY PRN losartan 50 mg PO DAILY melatonin 5 mg PO BEDTIME oxycodone-acetaminophen 5-325 mg 1 tab PO Q8H PRN simvastatin 20 mg PO BEDTIME sitagliptin phosphate (Januvia) 25 mg PO DAILY umeclidinium 62.5 mcg/actuation (Incruse Ellipta) 1 inh inhalation DAILY zolpidem 10 mg PO BEDTIME HPI Comments Details: 67-year-old male with a history of type 2 diabetes, HTN, CKD, carotid stenosis, COPD, LEONEL not on CPAP, diastolic CHF with preserved ejection fraction, He has advanced CKD Baseline creatinine is between 3.5 and 4.0 Currently on high dose of Bumex -Takes 1mg BID No edema No dyspnea 06/15/24 ; c/o SOB;Gained some weight/edema ;Went to [place] [facility] 06/25/24 ;After adding metolazone 2 doses and increasing Bumex to 1 mg b.i.d. he has lost about 7 lb. His breathing has improved. He feels better 07/27/24;doing much better;seen by cardiology 08/30/24 ;Dyspnea on exertion ;Weight is down by few lbs 09/13/24 ; c/o difficulty sleeping ;He has LEONEL -but does not use CPAP ; New onset A.fib - work up in progress 11/08/24: Still sOB on exertion;Seeing cardilogy today 01/25/25 69-year-old male presenting with anemia management as the primary reason for the visit. He is receiving scheduled BrReticrit injection to improve his anemia and associated hemoglobin levels. Treatment continues due to persistent anemia. The patient also experiences knee pain and self-reports episodes of respiratory discomfort which could be associated with his other underlying conditions. 02/22/25 69-year-old male presenting with anemia management as the primary reason for the visit. He is receiving scheduled Retacrit injections to improve his anemia and associated hemoglobin levels. Treatment continues due to persistent anemia. The patient also experiences knee pain and self-reports episodes of respiratory discomfort which could be associated with his other underlying conditions. Underwent watchman procedure. There is ongoing observation as he is close to requiring renal dialysis due to chronic kidney disease. The patient is aware of potential future dialysis needs but remains stable and dialysis-free at present. 03/08/25- No new issues 05/31/25 The patient is a 69-year-old male presenting with a follow-up for Stage 5 Chronic Kidney Disease and anemia management. Stage 5 Chronic Kidney Disease is stable at 11-12% function. Breathing is good with inhaler use; no nausea or vomiting reported. Calcium levels stable; cinacalcet therapy to be restarted. Anemia improved with hemoglobin at 10.4 g/dL due to treatment. Bleeding tendencies noted due to blood thinners, causing groin bruising. Hypertension controlled at 130/70 mmHg. Cardiology follow-up scheduled for July. No significant leg swelling; managed with wider sneakers. Medications: - Inhaler for breathing management - Blood thinners causing bleeding tendencies - Erythropoiesis-stimulating agents for anemia Diagnostic Results: - Labs: Hemoglobin improved to 10.4 g/dL - Labs: Kidney function stable at 11-12% - Labs: Calcium levels stable [facility] Medical History Obesity (BMI 30-39.9) Elevated brain natriuretic peptide (BNP) level Lower extremity edema COPD (chronic obstructive pulmonary disease) LEONEL (obstructive sleep apnea) Dyspnea on minimal exertion COPD (chronic obstructive pulmonary disease) Smoker Left ventricular hypertrophy Smoking CKD (chronic kidney disease) Obesity Dyslipidemia Hypertension Diabetes mellitus Surgical History No pertinent past surgical history Family History Father No problems noted. Mother Diabetes Family/Other No problems noted. Social History Household Members: Significant Other Housing: Apartment Do you presently have visiting nurse or other home services: No Alcohol intake: current Alcohol intake frequency: a few times a month Patient Tobacco Use Status: Former Tobacco user e-Cigarette/Vaping Use: Never Used Second Hand Smoke Exposure: No Advance Directives Date on File: 08/23/22 service: No Current occupational status: disabled Physical Exam Vital Signs: Last Vital Signs Pulse 67 05/31/25 09:39 BP 130/70 05/31/25 09:39 Pulse Ox 98 05/31/25 09:39 Oxygen Delivery Method Room Air 05/31/25 09:39 BMI result Body Mass Index 33.7 Comfortable Neck supple no JVD. Lungs entry equal no rales. Heart S1-S2 heard no gallop or rub. Abdomen soft nontender. Neuro alert awake oriented. No asterixis. Extremities 2+edema. Office Meds epoetin chad-epbx 20,000 unit/mL injection solution Performing Provider: Ross Baldwin MD [place] [facility] [place] Administered by: Ross Baldwin MD on 05/31/25 09:56 Dose Route Admin Location Dispensed Lot Number Expiration Date [facility] [employer] 20,000 unit subcut right arm 1 mL [id number] 11/12/26 1231-7463-89 [facility] ER [facility] [employer] Total Dispensed Waste 1 mL 0 % Results Reviewed Nephrology Results: Hgb, (14.0-18.0) 10.4 g/dl L 05/25/25 WBC, (4.8-10.8) 5.2 X10*3/uL 05/25/25 Plt Count, (160-400) 169 X10*3/uL 05/25/25 Sodium, (135-145) 140 mmol/L 05/25/25 Potassium, (3.3-5.1) 4.3 mmol/L 05/25/25 Chloride, (96-108) 108 mmol/L 05/25/25 Carbon Dioxide, (22-29) 23 mmol/L 05/25/25 BUN, (9-16) 57 mg/dL H 05/25/25 Creatinine, (0.5-1.4) 5.09 mg/dL H* 05/25/25 Calcium, (8.4-10.2) 10.2 mg/dL 05/25/25 Phosphorus, (2.7-4.5) 5.6 mg/dL H 05/02/25 PTH Intact, (8.7-77.1) 512.6 pg/mL H 05/02/25 Assessment & Plan Assessment & Plan (1) Anemia: Code(s): D64.9 - Anemia, unspecified Category: Medical Plan: Adminstered Retacrit 96503 U sq (2) CKD (chronic kidney disease) stage 5, GFR less than 15 ml/min: Code(s): N18.5 - Chronic kidney disease, stage 5 Category: Medical Plan: Renal fx unchanged eGFR between 10 and 12 ml/mt since Sep 2024 No s/s or uremia or fluid overload today (3) Essential hypertension: Code(s): I10 - Essential (primary) hypertension Category: Medical Plan: BP appears controlled. We discussed weight loss and low-salt diet again. (4) Chronic diastolic congestive heart failure: Code(s): I50.32 - Chronic diastolic (congestive) heart failure Category: Medical Plan: Compensated. Follows with cardiology. (5) Type 2 diabetes mellitus with unspecified complications: Code(s): E11.8 - Type 2 diabetes mellitus with unspecified complications Category: Medical (6) Obesity (BMI 30-39.9): Code(s): E66.9 - Obesity, unspecified Category: Medical Plan: Discussed weight loss. (7) Hyperparathyroidism: Code(s): E21.3 - Hyperparathyroidism, unspecified Category: Medical Plan: He is currently on cinacalcet and Rocaltrol. Cinacalcet on hold since 11/08/24) Repeat Ca is normal Follow PTH Restarted Cinacalcet 05/31/25 ( PTH was 525) Plan Referred to dialysis education program. He will be a good candidate for CCPD Discussed pre-emptive transplant Referred to [facility] - seen in Nov Work up in progress Orders: Orders AMB Epoetin Injection Practice Supplied Today N40.1 - Benign prostatic hyperplasia with lower urinary tract symptoms Basic Metabolic Panel 8 Weeks E21.3 - Hyperparathyroidism, unspecified, N18.5 - Chronic kidney disease, stage 5 Complete Blood Count no Diff 8 Weeks E21.3 - Hyperparathyroidism, unspecified, N18.5 - Chronic kidney disease, stage 5 Parathyroid Hormone Intact 8 Weeks E21.3 - Hyperparathyroidism, unspecified, N18.5 - Chronic kidney disease, stage 5 Coding Level of Care Code Est Pt Level 4 (09706) Diagnoses Anemia D64.9 CKD (chronic kidney disease) stage 5, GFR less than 15 ml/min N18.5 Essential hypertension I10 Chronic diastolic congestive heart failure I50.32 Type 2 diabetes mellitus with unspecified complications E11.8 Obesity (BMI 30-39.9) E66.9 Hyperparathyroidism E21.3
--- OUTSIDE RECORDS SUMMARY | 2025-05-31 12:15 | XMS_ITS | Encounter Summary ---
Author Organization [employer] Address [address] [facility] 7t [place] [address] Care Team Providers Care Coffee Bar Attendant Name Role Phone Ayaka Salgado MD Primary Care Provider [phone] Encounter Details Date Type Department Care Team ([facility] st Contact Info) Description 05/26/2024 Orders Only [facility] CHC MED & PEDS [address] [place] [address] Ayaka Salgado MD 505 [place], [place] [phone] Simple chronic bronchitis (CMS/HCC) (Primary Dx) Social [...] Description 08/17/2025 9:00 AM EST Clinical Support [facility] MED & PEDS 505 [place] [address] Alana Hook RN 505 [place] [address] documented as of this encounter Visit Diagnoses Diagnosis Simple chronic bronchitis (CMS/HCC)- Primary Simple chronic bronchitis documented in this encounter Additional Health Concerns Assessment Noted Time PHQ-9 Depression Total Score: 7 08/29/20 22 10:26 AM EST documented as of this encounter Care Teams Coffee Bar Attendant Relationship Specialty Start Date End Date Ayaka Salgado MD [address] [place] [address] PCP - General Internal Medicine 09/15/18 documented as of this encounter
--- OUTSIDE RECORDS SUMMARY | 2025-05-31 12:15 | XMS_ITS | Clinical Summary ---
Author Organization [employer] Address [address] [place] [address] 7t [place] [address] Care Team Providers Care Brick Machine Operator Name Role Phone Ayaka Salgado MD Primary Care Provider [phone] Allergies Active Allergy Reactions Criticality Noted Date [...] inhale in the morning. 30 capsule 11 Active albuterol 108 (90 Base) MCG/ACT inhaler Inhale 2 puffs every 6 (six) hours if needed for wheezing. 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 90 tablet 3 025 Active bumetanide (Bumex) 1 MG tabletIndications :Congestive heart failure, unspecified HF chronicity, unspecified heart failure type ([facility]) TAKE 1 TABLET(1 MG) BY MOUTH TWICE DAILY 180 tablet 3 025 Active Umeclidinium [place] (Incruse Ellipta) 62.5 MCG/ACT aerosol powderIndications :Chronic obstructive pulmonary disease, unspecified COPD type ([facility]) Inhale 1 Act (62.5 mcg) Once per day AND 1 Act (62.5 mcg) Once per day. 30 each Active labetalol (Normodyne) 300 MG tabletIndications :Essential hypertension Take 1 tablet (300 mg) by mouth 2 times daily. 60 tablet 025 2025 Active OneTouch Verio test stripIndications: 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[facility]) USE TO TEST BLOOD SUGAR TWICE A DAY 100 strip 025 Active Alcohol Swabs (Alcohol Prep) 70 % pads APPLY 1 PAD TO SKIN TWICE DAILY DIRECTED 200 each 025 Active melatonin 5 MG tabletIndications :Primary insomnia 1 tab of 5 mg at bedtime 90 tablet 1 025 Active oxyCODONE-acetami nophen (Percocet) 5-325 MG tabletIndications :Arthropathy Take 1 tablet by mouth every 6 (six) hours if needed for severe pain. 42 tablet 025 Active hydrALAZINE (Apresoline) 100 MG tablet TAKE 1 TABLET BY MOUTH THREE TIMES DAILY WITH FOOD 270 tablet 3 025 Active zolpidem (Ambien) 10 MG tabletIndications :Primary insomnia TAKE 1 TABLET BY MOUTH AT BEDTIME NEEDED FOR SLEEP 30 tablet 025 Active hydrALAZINE (Apresoline) 100 MG [...] Overview (02/22/2025): Status post Watchman device at [facility]. 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 11/13 Pruritus [...] Encounters Date Type Department Care Team Description 05/31/2025 9:00 AM EDT Clinical Support [facility] MED & PEDS [address] [place] [address] Alana Hook RN Back pain, unspecified back location, unspecified back pain laterality, unspecified chronicity 05/31/2025 Refill [facility] [address] [place] [address] Alana Hook RN Simple chronic bronchitis ([facility]) 05/31/2025 Travel 05/27/2025 Refill [facility] [address] [place] [address] Ayaka Salgado MD Primary insomnia 05/25/2025 Telephone [facility] [address] [place] [address] Ayaka Salgado MD CRITICAL LAB 05/20/2025 Refill [facility]S [address] [place], [place] [phone] Ayaka Salgado MD 05/12/2025 Telephone [facility] [address] [place] [address] Ayaka Salgado MD Med Refill 05/12/2025 Refill [facility] [address] [place] [address] Ayaka Salgado MD Arthropathy 04/26/2025 Refill [facility] [address] [place] [address] Ayaka Salgado MD Primary insomnia 04/26/2025 Refill [facility] [address] [place] [address] Ayaka Salgado MD Arthropathy 04/13/2025 Travel 04/06/2025 Refill [facility] [address] [place], [place] [phone] Ayaka Salgado MD Arthropathy 04/02/2025 Refill [facility] [address] [place] [address] Ayaka Salgado MD 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[facility]) 03/28/2025 Refill [facility] [address] [place] [address] Ayaka Salgado MD Primary insomnia 03/26/2025 Refill [facility] [address] [place] [address] Ayaka Salgado MD 03/22/2025 Telephone [facility] [address] [place] [address] Ayaka Salgdao MD Med Refill 03/21/2025 Refill [facility] [address] [place] [address] Ayaka Salgado MD Arthropathy 03/21/2025 Refill [facility] [address] [place] [address] Ayaka Salgado MD Primary insomnia 03/10/2025 Refill [facility] [address] [place] [address] Ayaka Salgado MD 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[facility]) 03/07/2025 Telephone [facility] [address] [place] [address] Ayaka Salgado MD 03/04/2025 Orders Only [facility] [address] [place] [address] Ayaka Salgado MD 03/04/2025 Refill [facility] [address] [place] [address] Ayaka Salgado MD 02/28/2025 Refill [facility] [address] [place] [address] Alana Hook, RN Arthropathy 02/28/2025 Telephone [facility] [address] [place] [address] Ayaka Salgado MD Med Refill from Last 3 Months Immunizations Immunization Administration [...] the past 12 months, has t he [employer]xTer[employer], gas, oil or water company threatened to [...] Description 08/17/2025 9:00 AM EST Clinical Support [facility] [address] [place] [address] Alana Hook, RN [address] [place] [address] Health Maintenance Due Date Last Done Comments [...] Exam 05/04/2025 05/04/2024, 05/29/2023 COVID-19 Vaccine ( - season) 2025 08/03/2021, 11/03/2020, 10/06/2020 Influenza Vaccine [...] unspecified chronicity POCT GLYCATED HEMOGLOBIN, TOTAL Routine 11/22/2024 11:52 [...] AM EDT . Internal Pass Control Lot# [id number] Exp: 07-15-26 Ayaka Salgado MD POINT OF CARE TEST ENTER/ED IT ORDERABLES Final Result * POCT HGB A1C (11/22/2024 11:52 AM EDT) Pathologist [facility] Hemoglobin A1C 5.9 4.0 - 6.0 % QC Media Lot # [id number] Lot# Expiration Date Blood 11/22/2024 11:5 2 AM EDT Ayaka Salgado MD POINT OF CARE TEST ENTER/ED IT ORDERABLES Final Result * Diabetes Eye Exam (05/04/2024 12:18 PM EDT) Historical Provider HEALTH MAINTENANCE Final Result * (ABNORMAL) Lipid Panel, Standard (11/12/2023 9:08 AM EST) Pathologist [facility] Triglycerides 55 <150 mg/dL [facility] Comment:Desirable Triglyceri de: less than 150 mg/dLBorderline High Triglyceride 150-199 mg/dLHigh Triglyceride: 200-499 mg/dLVery High Triglyceride: greater than or equal to 5OO mg/dL Cholesterol 101 <200 mg/dL [facility] Comment:Desirable Cholestero l: less than 200 mg/dLBorderline High Cholesterol: 200-239 mg/dLHigh Cholesterol: greater than 239 mg/dL LDL Cholesterol Calculated 57 <100 mg/dL [facility] Comment:Desirable LDL: less than 100 mg/dLNear Optimal/Above Optimal LDL: 110- 129 mg/dLBorderline High LDL: 130-159 mg/dLHigh LDL: 160-189 mg/dLVery High LDL: greater than or equal to 190 mg/dL HDL Cholesterol 33(L) >40 mg/dL [facility] Comment:Desirable HDL: great er than 40 mg/dL Note: This HDL assay may give artificially low results in patients with liver disease. Blood Venous blood specimen / Unknown 11/12/2023 9:08 AM EST 11/12/2023 2:41 PM EST Ayaka Salgado MD LAB BLOOD ORDERABLES Final Result [facility] [address] [place] [phone] from Last 3 Months or Most Recently Relevant to Health Maintenance Insurance [facility] MEDICARE ADVANTAGE HMO Care Teams Brick Machine Operator Relationship Specialty Start Date End Date Ayaka Salgado MD [address] [place] [address] [place] [id number] PCP - General Internal Medicine 09/15/18
--- OUTSIDE RECORDS SUMMARY | 2025-05-31 12:15 | XMS_ITS | Encounter Summary ---
Author Organization [facility] [address] [facility] [address] [place] [address] Phone Care Team Providers Care Dicer Machine Operator Name Role Phone Jayme Salgado MD Primary Care Provider [phone] Reason for Visit * Reason Comments Med Refill Encounter Details Date Type Department Care Team (Late st Contact Info) Description 04/28/2023 Refill [facility] [address] [place] [place] [id number] Mumtaz Childress MD [address] [facility] [address] [place] [address] Type 2 diabetes mellitus with [...] (HCC) documented in this encounter Care Teams Dicer Machine Operator Relationship Specialty Start Date End Date Jayme Salgado MD [address] [place] [address] PCP - General 09/25/20 documented as of this encounter
--- OUTSIDE RECORDS SUMMARY | 2025-05-31 12:15 | XMS_ITS ---
Author Organization [facility] Address [address] [place] [address] Care Team Providers Care Skin Washer Name Role Phone SharonaAyaka perla Primary Care Provider [phone] Transplant Episode Kidney Candidate [facility] ([place] [place] - [facility] Evaluation began on 07/29/2024 Marked as Active on 07/29/2024 Kidney CoordinatorShima Springer RN Email: N/A Scores Score Value Updated Exceptions/Reas ons CPRA Not available EPTS (Calc) 45 05/31/2025 Craig Organ Diagnosis Organ Primary Contributory Kidney Diabetes Mellitus - Type II Care Team Name Role Phone Fax Email Shima Springer RN Kidney Coordinator [phone] N/A Ross Baldwin Referring Physician [phone] N/A Events Pre-Transplant Referred: 07/19/2024 Evaluation began: 07/29/2024 Committee: 03/09/2025 Appointments (04/30/2025 - 06/30/2025) When With Visit Type Description 06/13/2025 Transplant - Adriel Reese Follow Up 06/28/2025 Transplant - Maddy Babb Follow U p 06/28/2025 Transplant - Olman Duarte Follow Up
--- OUTSIDE RECORDS SUMMARY | 2025-05-31 12:15 | XMS_ITS | Encounter Summary ---
Author Organization [facility] Address [address] [place] [address] Care Team Providers Care Property Loss Insurance Claim Adjuster Name Role Phone Ayaka Salgado Primary Care Provider [phone] Encounter Details Date Type Department Care Team (Late st Contact Info) Description 07/29/2024 Orders Only [facility] Xray [address] [place] [address] Waqas Garnett MD [address] [place] [phone] Social History Tobacco Use Types Packs/Day Years [...] Info) Description 06/13/2025 10:30 AM EDT Follow-Up [facility] Transplant Services [address] [place] [address] Gary Reese MD [address] [place] [address] 06/28/2025 10:00 AM EDT Social Work [facility] Renal Transplant [address] [place] [address] Susan Babb LICSW [address] [place] [address] 06/28/2025 10:40 AM EDT Follow-Up [facility] Renal Transplant [address] [place] [address] Joey Duarte MD [address] [employer], [place] [phone] documented as of this encounter Visit Diagnoses Not on filedocumented in this encounter Care Teams Property Loss Insurance Claim Adjuster Relationship Specialty Start Date End Date Ayaka Salgado [address] [place] [address] PCP - General Internal Medicine 07/29/24 documented as of this encounter
--- OUTSIDE RECORDS SUMMARY | 2025-05-31 12:15 | XMS_ITS | Encounter Summary ---
Author Organization [employer] Address [address] [facility] 7 [place] [address] Care Team Providers Care Photograph Tinter Name Role Phone Ayaka Salgado MD Primary Care Provider [phone] Reason for Visit * Reason Onset Date Comments Med Refill 08/09/2024 Encounter Details Date Type Department Care Team ([facility] st Contact Info) Description 08/09/2024 Telephone [facility] MEDICINE [address] [place], [place] [phone] Ayaka Salgado MD 505 [facility] [place] [address] Med Refill Social History Tobacco Use Types [...] 5-325 MG tablet To be sent to: [id number] documented in this encounter Plan of Treatment Upcoming Encounters Date Type Department Care Team ([facility] st Contact Info) Description 08/17/2025 9:00 AM EST Clinical Support [facility] CHC MED & PEDS [address] [place] [address] Alana Hook RN 505 [place] [address] documented as of this encounter Visit Diagnoses Not on filedocumented in this encounter Additional Health Concerns Assessment Noted Time PHQ-9 Depression Total Score: 7 08/29/20 22 10:26 AM EST documented as of this encounter Care Teams Photograph Tinter Relationship Specialty Start Date End Date Ayaka Salgado MD [address] [place] [address] PCP - General Internal Medicine 09/15/18 documented as of this encounter
--- OUTSIDE RECORDS SUMMARY | 2025-05-31 12:15 | XMS_ITS | Encounter Summary ---
Author Organization [employer] Address [address] [facility] 7t [place] [address] Care Team Providers Care Switchboard Manager Name Role Phone Ayaka Salgado MD Primary Care Provider [phone] Encounter Details Date Type Department Care Team ([facility] st Contact Info) Description 09/22/2023 Orders Only [facility] CHC MED & PEDS [address] [place] [address] Ayaka Salgado MD [address] [place], [place] [phone] Simple chronic bronchitis (CMS/HCC) (Primary Dx) Social [...] Description 08/17/2025 9:00 AM EST Clinical Support [facility] MED & PEDS 505 [place] [address] Alana Hook RN 505 [place] [address] documented as of this encounter Visit Diagnoses Diagnosis Simple chronic bronchitis (CMS/HCC)- Primary Simple chronic bronchitis documented in this encounter Additional Health Concerns Assessment Noted Time PHQ-9 Depression Total Score: 7 08/29/20 22 10:26 AM EST documented as of this encounter Care Teams Switchboard Manager Relationship Specialty Start Date End Date Ayaka Salgado MD [address] [place] [address] PCP - General Internal Medicine 09/15/18 documented as of this encounter
--- OUTSIDE RECORDS SUMMARY | 2025-05-31 12:15 | XMS_ITS | Encounter Summary ---
Author Organization [employer] Address [address] [place] [address] 7 [place] [address] Care Team Providers Care Associate Embalmer/Funeral Director Name Role Phone Ayaka Salgado MD Primary Care Provider [phone] Reason for Visit * Reason Comments Med Refill Encounter Details Date Type Department Care Team ([facility] Contact Info) Description 07/28/2023 Refill [facility] CHC MED & PEDS [address] [place] [address] Ayaka Salgado MD 505 [place] [address] Social History Tobacco Use Types Packs/Day Years [...] Description 08/17/2025 9:00 AM EST Clinical Support [facility] MED & PEDS [address] [place] [address] Alana Hook, RACHELLE 505 [place] [address] documented as of this encounter Visit Diagnoses Not on filedocumented in this encounter Additional Health Concerns Assessment Noted Time PHQ-9 Depression Total Score: 7 08/29/20 22 10:26 AM EST documented as of this encounter Care Teams Associate Embalmer/Funeral Director Relationship Specialty Start Date End Date Ayaka Salgado MD [address] [place] [address] PCP - General Internal Medicine 09/15/18 documented as of this encounter
--- OUTSIDE RECORDS SUMMARY | 2025-05-31 12:15 | XMS_ITS | Encounter Summary ---
Author Organization [employer] Address [address] [facility] 7 [place] [address] Care Team Providers Care Director Of Procurement Name Role Phone Ayaka Salgado MD Primary Care Provider [phone] Reason for Visit * Reason Onset Date Comments Med Refill 07/31/2023 Encounter Details Date Type Department Care Team ([facility] st Contact Info) Description 07/31/2023 Telephone [facility] MEDICINE [address] [place], [place] [phone] Ayaka Salgado MD 505 [facility] [place] [address] Med Refill Social History Tobacco Use Types [...] Description 08/17/2025 9:00 AM EST Clinical Support [facility] MED & PEDS [address] [place] [address] Alana Hook, RACHELLE [address] [place] [address] documented as of this encounter Visit Diagnoses Not on filedocumented in this encounter Additional Health Concerns Assessment Noted Time PHQ-9 Depression Total Score: 7 08/29/20 22 10:26 AM EST documented as of this encounter Care Teams Director Of Procurement Relationship Specialty Start Date End Date Ayaka Salgado MD 505 [place] [address] PCP - General Internal Medicine 09/15/18 documented as of this encounter
--- OUTSIDE RECORDS SUMMARY | 2025-05-31 12:15 | XMS_ITS | Encounter Summary ---
Author Organization [employer] Address [address] [facility] 7t [place] [address] Care Team Providers Care Natural Gas Field Processing Supervisor Name Role Phone Ayaka Salgado MD Primary Care Provider [phone] Encounter Details Date Type Department Care Team ([facility] st Contact Info) Description 08/20/2024 Orders Only [facility] CHC MED & PEDS [address] [place] [address] Ayaka Salgado MD [address] [place] [address] Social History Tobacco Use Types Packs/Day Years [...] [facility] Contact Info) Description 08/17/2025 9:00 AM EST Clinical Support [facility]C MED & PEDS [address] [place] [address] Alana Hook, RACHELLE 505 [place] [address] documented as of this encounter Visit Diagnoses Not on filedocumented in this encounter Additional Health Concerns Assessment Noted Time PHQ-9 Depression Total Score: 7 08/29/20 22 10:26 AM EST documented as of this encounter Care Teams Natural Gas Field Processing Supervisor Relationship Specialty Start Date End Date Ayaka Salgado MD [address] [place] [address] PCP - General Internal Medicine 09/15/18 documented as of this encounter
--- OUTSIDE RECORDS SUMMARY | 2025-05-31 12:15 | XMS_ITS | Encounter Summary ---
Author Organization [employer] Address [address] [facility] 7 [place] [address] Care Team Providers Care Bell Neck Hammerer Name Role Phone Ayaka Salgado MD Primary Care Provider [phone] Reason for Visit * Reason Onset Date Comments r/s appt 08/23/2022 Encounter Details Date Type Department Care Team ([facility] st Contact Info) Description 08/23/2022 Telephone [facility] MEDICINE [address] [place] [address] Ayaka Salgado MD 505 [facility] [place] [address] r/s appt Social History Tobacco Use Types [...] appt has been canceled. Please contact at [phone] documented in this encounter Plan of Treatment Upcoming Encounters Date Type Department Care Team (Late st Contact Info) Description 08/17/2025 9:00 AM EST Clinical Support [facility] CHC MED & PEDS [address] [place] [address] Alana Hook, RACHELLE [address] [place] [address] documented as of this encounter Visit Diagnoses Not on filedocumented in this encounter Care Teams Bell Neck Hammerer Relationship Specialty Start Date End Date Ayaka Salgado MD 505 [place] [address] PCP - General Internal Medicine 09/15/18 documented as of this encounter
--- OUTSIDE RECORDS SUMMARY | 2025-05-31 12:15 | XMS_ITS | Encounter Summary ---
Author Organization [employer] Address [address] [facility] 7 [place] [address] Care Team Providers Care Maintenance Associate Name Role Phone Ayaka Salgado MD Primary Care Provider [phone] Reason for Visit * Reason Onset Date Comments Med Refill 12/01/2023 Encounter Details Date Type Department Care Team ([facility] st Contact Info) Description 12/01/2023 Telephone [facility] MEDICINE 230 [place], [place] [phone] Ayaka Salgado MD 505 [facility] [place] [address] Med Refill Social History Tobacco Use Types [...] 10 MG tablet To be sent to: [id number] - [place] - [address] [facility] documented in this encounter Plan of Treatment Upcoming Encounters Date Type Department Care Team ([facility] st Contact Info) Description 08/17/2025 9:00 AM EST Clinical Support [facility] MED & PEDS 505 [facility] [place] [address] Alana Hook, RACHELLE 505 [place] [address] documented as of this encounter Visit Diagnoses Not on filedocumented in this encounter Additional Health Concerns Assessment Noted Time PHQ-9 Depression Total Score: 7 08/29/20 22 10:26 AM EST documented as of this encounter Care Teams Maintenance Associate Relationship Specialty Start Date End Date Ayaka Salgado MD 505 [facility] [place] [address] PCP - General Internal Medicine 09/15/18 documented as of this encounter
--- OUTSIDE RECORDS SUMMARY | 2025-05-31 12:15 | XMS_ITS | Encounter Summary ---
Author Organization [employer] Address [address] [facility] 7 [place] [address] Care Team Providers Care Sanding Line Operator Name Role Phone Ayaka Salgado MD Primary Care Provider [phone] Reason for Visit * Reason Onset Date Comments Med Refill 09/06/2024 Encounter Details Date Type Department Care Team ([facility] st Contact Info) Description 09/06/2024 Telephone [facility] MEDICINE [address] [place], [place] [phone] Ayaka Salgado MD 505 [facility] [place] [address] Med Refill Social History Tobacco Use Types [...] 8:56 AM EST Medication was sent to [facility] #[id number] on 08/09/24 with 3 refills. * Telephone Encounter - Cleopatra Ortiz - 09/06/2024 8:53 AM EST TC from pt requesting medication refill. Medications needing refill : labetalol (Normodyne) 200 MG tablet To be sent to: [facility] #[id number] - [place] - [address] [facility] [address] documented in this encounter Plan of Treatment Upcoming Encounters Date Type Department Care Team ([facility] st Contact Info) Description 08/17/2025 9:00 AM EST Clinical Support [facility] MED & PEDS 505 [facility] [place] [address] Alana Hook, RN 505 [facility] [place] [address] documented as of this encounter Visit Diagnoses Not on filedocumented in this encounter Additional Health Concerns Assessment Noted Time PHQ-9 Depression Total Score: 7 08/29/20 22 10:26 AM EST documented as of this encounter Care Teams Sanding Line Operator Relationship Specialty Start Date End Date Ayaka Salgado MD 505 [place] [address] PCP - General Internal Medicine 09/15/18 documented as of this encounter
--- OUTSIDE RECORDS SUMMARY | 2025-05-31 12:15 | XMS_ITS | Encounter Summary ---
Author Organization [employer] Address 75 [facility] 7t [place] [address] Care Team Providers Care Logistics Engineer Name Role Phone Ayaka Salgado MD Primary Care Provider [phone] Encounter Details Date Type Department Care Team (Late st Contact Info) Description 06/25/2024 Orders Only [facility] CHC MED & PEDS [address] [place] [address] Provider, MD Ran Social History Tobacco Use [...] [facility] st Contact Info) Description 08/17/2025 9:00 AM EST Clinical Support [facility] MED & PEDS 505 [place] [address] Alana Hook RN 505 [place] [address] documented as of this encounter Procedures Procedure [...] documented as of this encounter Care Teams Logistics Engineer Relationship Specialty Start Date End Date Ayaka Salgado MD 505 [place] [address] PCP - General Internal Medicine 09/15/18 documented as of this encounter
--- OUTSIDE RECORDS SUMMARY | 2025-05-31 12:15 | XMS_ITS | Clinical Summary ---
Author Organization [facility] Address [address] [facility] [facility] [address] [address] [address] [place] [address] [place] [address] Phone Care Team Providers Care Rail Layer Name Role Phone Jayme Salgado MD Primary Care Provider [phone] Allergies Active Allergy Reactions Criticality Noted Date [...] to complete this topic Insurance U[employer] Medicare [facility] Medicare Care Teams Rail Layer Relationship Specialty Start Date End Date Jayme Salgado MD [address] [place] [address] [place] PCP - General 09/25/20
--- OUTSIDE RECORDS SUMMARY | 2025-05-31 12:15 | XMS_ITS ---
Author Organization [employer] Address [address] [place] [address] 7 [place] [address] Care Team Providers Care Skidder Operator Name Role Phone Ayaka Salgado MD Primary Care Provider [phone] CYTOTECHNOLOGIST/CYTOLOGY SUPERVISOR Status:Enrolled (Active) Start date:12/20/2022 Enrollment date:12/20/2022 Case Team Name Relationship Phone Alana Hook RN(Responsible Staff) Registered Nurse Continued Care and Services Coordination
--- OUTSIDE RECORDS SUMMARY | 2025-05-31 12:15 | XMS_ITS | Encounter Summary ---
Author Organization [employer] Address 75 [facility] 7 [place] [address] Care Team Providers Care Professor Of Chemical Engineering Name Role Phone Ayaka Salgado MD Primary Care Provider [phone] Reason for Visit * Reason Onset Date Comments Med Refill 08/05/2024 Encounter Details Date Type Department Care Team ([facility] st Contact Info) Description 08/05/2024 Refill [facility] CHC MED & PEDS 505 [place] [address] Ayaka Salgado MD 505 [place] [address] Back pain, unspecified back location, unspecified back [...] 5-325 MG tablet To be sent to: [facility] #[id number] - [place], [place] - [address] [facility] [address] documented in this encounter Plan of Treatment Upcoming Encounters Date Type Department Care Team (Late st Contact Info) Description 08/17/2025 9:00 AM EST Clinical Support [facility] MED & PEDS 505 [place] [address] Alana Hook, RN 505 [place] [address] documented as of this encounter Visit Diagnoses Diagnosis Back pain, unspecified back location, unspecified back pain laterality, unspecified chronicity- Primary documented in this encounter Additional Health Concerns Assessment Noted Time PHQ-9 Depression Total Score: 7 08/29/20 22 10:26 AM EST documented as of this encounter Care Teams Professor Of Chemical Engineering Relationship Specialty Start Date End Date Ayaka Salgado MD 505 [place] [address] PCP - General Internal Medicine 09/15/18 documented as of this encounter
--- OUTSIDE RECORDS SUMMARY | 2025-05-31 12:15 | XMS_ITS | Clinical Summary ---
Author Organization [facility] Address [address] [place] [address] Care Team Providers Care Trial Consultant Name Role Phone DamianAyaka Primary Care [...] Type Department Care Team Description 04/04/2025 Telephone [facility] Transplant Department [address] [place] [address] Shima Springer RN 03/22/2025 Telephone [facility] Transplant Department [address] [place] [address] Shima Springer RN Referral - Kidney Txp 03/08/2025 Documentation [facility] Transplant Department [address] [place] [address] Sheryl Moore RN ABO Dual Validation 03/03/2025 External Result Entry [facility] Transplant Department [address] [place] [address] Shima Springer RN from Last 3 Months [...] Info) Description 06/13/2025 10:30 AM EDT Follow-Up [facility] Liver Transplant Services [address] [place] [address] Gary Reese MD [address] [place] [address] 06/28/2025 10:00 AM EDT Social Work [facility] Renal Transplant [address] [place] [address] Susan Babb LICSW [address] [place] [address] 06/28/2025 10:40 AM EDT Follow-Up [facility] Renal Transplant [address] [place] [address] Joey Duarte MD [address] [place], [place] [phone] Health Maintenance Due Date Last Done Comments [...] complete this topic Procedures * Due to [place] state law, this organization might not be [...] to Health Maintenance Results * Due to [place] [employer] law, this organization might not be sharing [...] - 0.50 10*3/uL 07/29/2024 1:35 PM EST [facility] Basophil # <0.03 0.00 - 0.20 10*3/uL 07/29/2024 1:35 PM EST [facility] nRBC % 0.0 /100 WBCs 07/29/2024 1:35 PM EST [facility] nRBC # <0.01 <0.01 10*3/uL 07/29/2024 1:35 PM EST [facility] Blood Structure of peripheral vein / Unknown Venipuncture / Unknown 07/29/2024 12:57 PM EST 07/29/2024 1:29 PM EST Joey Duarte MD LAB BLOOD ORDERABLES María l Result [facility] [address] [place] [address], * Hepatitis C Antibody w/Reflex to PCR (07/29/2024 12:57 PM EST) Hepatitis C Antibody NON-REACT STANFORD NON-REACT STANFORD 07/30/2024 3:03 AM EST [facility] [employer] [facility] Comment: HCV antibody was non-reactive. There is no laboratory evidence of HCV infection. In most cases, no further action is required. However, if recent HCV exposure is suspected, a test for HCV RNA (test code 28280) is suggested. For additional information please refer to http://education.[employer]/faq/UDX07h9 (This link is being provided for informational/ educational purposes only.) Blood Structure of peripheral vein / Unknown Venipuncture / Unknown 07/29/2024 12:57 PM EST 07/29/2024 1:32 PM EST Narrative [facility] - 07/30/2024 3:03 AM EST [facility] Received Date: Joey Duarte MD LAB BLOOD ORDERABLES María l Result Performing Organization Address City/[facility]/ZIP Co de Phone Number ROEL PENDLETON [address]rd [address], [place] [address], [place] [employer] [facility] [address] [facility] [address] Floor, [place] [address], * Phosphorus (07/29/2024 12:57 PM EST) Phosphorus 4.5 2.5 - 4.5 mg/dL 07/29/2024 2:00 PM EST [facility] Blood Structure of peripheral vein / Unknown Venipuncture / Unknown 07/29/2024 12:57 PM EST 07/29/2024 1:29 PM EST Joey Duarte MD LAB BLOOD ORDERABLES María l Result Performing Organization Address City/[facility]/ZIP Co de Phone Number [facility] [address] [place] [address], * (ABNORMAL) Hemoglobin A1c (07/29/2024 12:57 PM EST) Hemoglobin A1C 6.7(H) <5.7 % of total Hgb 07/30/2024 1:59 AM EST [facility] Comment: For someone without known diabetes, a [...] (MG/DL) 146 mg/dL 07/30/2024 1:59 AM EST [facility] eAG (MMOL/L) 8.1 mmol/L 07/30/2024 1:59 AM EST [facility] Blood Structure of peripheral vein / Unknown Venipuncture / Unknown 07/29/2024 12:57 PM EST 07/29/2024 1:32 PM EST Narrative [facility] - 07/30/2024 1:59 AM EST [facility] Received Date: Joey Duarte MD LAB BLOOD ORDERABLES María lee Result [facility] [address], [place] [address], [place] [phone] [facility] [address], [place] [address], [place] [phone] from Last 3 Months or Most Recently Relevant to Health Maintenance Insurance [facility] Member Subscriber Plan / Payer (Ef fective 2023-Present) Name:Lewis Snyder Relation to Subscriber:Self Name:Lewis Snyder Payer ID:[id number] (NAIC) Type:Not on file Address: [place] [id number] [facility] Advance Directives Documents on File Type Date Recorded Patient Retail Maintenance Technician Expl anation Health Care Proxy 08/05/2024 4:14 PM 07-16 Care Teams Trial Consultant Relationship Specialty Start Date End Date Ayaka Salgado [address] [place] [address] PCP - General Internal Medicine 07/29/24
--- OUTSIDE RECORDS SUMMARY | 2025-05-31 12:15 | XMS_ITS | Encounter Summary ---
Author Organization [employer] Address [address] [place] [address] 7 [place] [address] Care Team Providers Care Cyber Operator Name Role Phone Ayaka Salgado MD Primary Care Provider [phone] Reason for Visit * Reason Comments Med Refill Encounter Details Date Type Department Care Team ([facility] st Contact Info) Description 01/06/2023 Refill [facility] CHC MED & PEDS 505 [place] [address] Ayaka Salgado MD 505 [place] [address] Primary osteoarthritis involving multiple joints Social History [...] 08/17/2025 9:00 AM EST Clinical Support [facility] MED & PEDS 505 [place] [address] Alana Hook RN 505 [place] [address] documented as of this encounter Visit Diagnoses Diagnosis Primary osteoarthritis involving multiple joints documented in this encounter Additional Health Concerns Assessment Noted Time PHQ-9 Depression Total Score: 7 08/29/20 22 10:26 AM EST documented as of this encounter Care Teams Cyber Operator Relationship Specialty Start Date End Date Ayaka Salgado MD 505 [place] [address] PCP - General Internal Medicine 09/15/18 documented as of this encounter
--- OUTSIDE RECORDS SUMMARY | 2025-05-31 12:15 | XMS_ITS | Encounter Summary ---
Author Organization [employer] Address [address] [place] [address] 7 [place] [address] Care Team Providers Care Page Technician Name Role Phone Ayaka Salgado MD Primary Care Provider [phone] Reason for Visit * Reason Onset Date Comments Med Refill 07/28/2023 Encounter Details Date Type Department Care Team ([facility] st Contact Info) Description 07/28/2023 Telephone [facility] CHC MED & PEDS [address] [place] [address] Ayaka Salgado MD 505 [place] [address] Med Refill Social History Tobacco Use Types [...] (Percocet) 5-325 MG tablet Please sent to [facility] #[id number] - [place] - [address] [facility] [address] documented in this encounter Plan of Treatment Upcoming Encounters Date Type Department Care Team ([facility] st Contact Info) Description 08/17/2025 9:00 AM EST Clinical Support [facility] MED & PEDS [address] [place] [address] Alana Hook, RACHELLE 505 [place] [address] documented as of this encounter Visit Diagnoses Not on filedocumented in this encounter Additional Health Concerns Assessment Noted Time PHQ-9 Depression Total Score: 7 08/29/20 22 10:26 AM EST documented as of this encounter Care Teams Page Technician Relationship Specialty Start Date End Date Ayaka Salgado MD 505 [place] [address] PCP - General Internal Medicine 09/15/18 documented as of this encounter
--- OUTSIDE RECORDS SUMMARY | 2025-05-31 12:15 | XMS_ITS | Encounter Summary ---
Author Organization [employer] Address [address] [place] [address] 7t [place] [address] Care Team Providers Care Shrub Planter Name Role Phone Ayaka Salgado MD Primary Care Provider [phone] Encounter Details Date Type Department Care Team (Late st Contact Info) Description 02/19/2023 Abstract [facility] Information Management [address] [place] [address] Ayaka Salgado MD 505 [place], [place] [phone] Social History Tobacco Use Types Packs/Day Years [...] Description 08/17/2025 9:00 AM EST Clinical Support [facility] MED & PEDS 505 [place] [address] Alana Hook, RACHELLE 505 [place] [address] documented as of this encounter Visit Diagnoses Not on filedocumented in this encounter Additional Health Concerns Assessment Noted Time PHQ-9 Depression Total Score: 7 08/29/20 22 10:26 AM EST documented as of this encounter Care Teams Shrub Planter Relationship Specialty Start Date End Date Ayaka Salgado MD 505 [place] [address] PCP - General Internal Medicine 09/15/18 documented as of this encounter
--- OUTSIDE RECORDS SUMMARY | 2025-05-31 12:16 | XMS_ITS | Encounter Summary ---
Author Organization [employer] Address 75 [facility] 7 [place] [address] Care Team Providers Care Train Gate Attendant Name Role Phone Ayaka Salgado MD Primary Care Provider [phone] Reason for Visit * Reason Onset Date Comments Med Refill 01/19/2025 Encounter Details Date Type Department Care Team ([facility] st Contact Info) Description 01/19/2025 Telephone [facility] MEDICINE 230 [place], [place] [phone] Ayaka Salgado MD 505 [facility] [place] [address] Med Refill Social History Tobacco Use Types [...] 5-325 MG tablet To be sent to: [facility] #[id number] - [place] - [address] [facility] documented in this encounter Plan of Treatment Upcoming Encounters Date Type Department Care Team ([facility] st Contact Info) Description 08/17/2025 9:00 AM EST Clinical Support [facility] CHC MED & PEDS 505 [facility] [place] [address] Alana Hook, RACHELLE [address] [facility] [place] [address] documented as of this encounter Visit Diagnoses Not on filedocumented in this encounter Additional Health Concerns Assessment Noted Time PHQ-9 Depression Total Score: 12 025 11:13 AM EDT documented as of this encounter Care Teams Train Gate Attendant Relationship Specialty Start Date End Date Ayaka Salgado MD [address] [place] [address] PCP - General Internal Medicine 09/15/18 documented as of this encounter
--- OUTSIDE RECORDS SUMMARY | 2025-05-31 12:16 | XMS_ITS | Encounter Summary ---
Author Organization [employer] Address 75 [facility] 7 [place] [address] Care Team Providers Care Cut And Cover Line Worker Name Role Phone Ayaka Salgado MD Primary Care Provider [phone] Reason for Visit * Reason Onset Date Comments Med Refill 05/27/2025 Encounter Details Date Type Department Care Team (Late st Contact Info) Description 05/27/2025 Refill [facility] MEDICINE 230 [place] [address] Ayaka Salgado MD 505 [facility] [place] [address] Primary insomnia Social History Tobacco Use Types [...] encounter Miscellaneous Notes * Telephone Encounter - Anuja Sood LPN - 05/27/2025 10:44 AM EDT Superintendent Drivers ck on 05.27.25 Last seen 02.22.25 * Telephone Encounter - Elle Schilling - 05/27/2025 10:33 AM EDT TC from pt requesting medication refill. Medications needing refill : - zolpidem (Ambien) 10 MG tablet To be sent to: - [facility] #[id number] - [place] - [address] [facility] [address] documented in this encounter Plan of Treatment Upcoming Encounters Date Type Department Care Team (Late st Contact Info) Description 08/17/2025 9:00 AM EST Clinical Support [facility] MED & PEDS [address] [place] [address] Alana Hook, RACHELLE 505 [place] [address] documented as of this encounter Visit Diagnoses Diagnosis Primary insomnia Persistent disorder of initiating or maintaining sleep documented in this encounter Additional Health Concerns Assessment Noted Time PHQ-9 Depression Total Score: 12 025 11:13 AM EDT documented as of this encounter Care Teams Cut And Cover Line Worker Relationship Specialty Start Date End Date Ayaka Salgado MD 505 [place] [address] PCP - General Internal Medicine 09/15/18 documented as of this encounter
--- OUTSIDE RECORDS SUMMARY | 2025-05-31 12:16 | XMS_ITS | Encounter Summary ---
Author Organization [employer] Address 75 [facility] 7t [place] [address] Care Team Providers Care Machine Or Machinery Mechanic Name Role Phone Ayaka Salgado MD Primary Care Provider [phone] Reason for Visit * Reason Comments Med Refill Encounter Details Date Type Department Care Team ([facility] st Contact Info) Description 06/15/2024 Refill [facility] MEDICINE 230 [place], [place] [phone] Lev Gentile MD 230 [place], [place] [phone] Chronic pruritus Social History Tobacco Use Types [...] Description 08/17/2025 9:00 AM EST Clinical Support [facility] MED & PEDS [address] [place] [address] Alana Hook, RACHELLE 505 [place] [address] documented as of this encounter Visit Diagnoses Diagnosis Chronic pruritus documented in this encounter Additional Health Concerns Assessment Noted Time PHQ-9 Depression Total Score: 7 08/29/20 22 10:26 AM EST documented as of this encounter Care Teams Machine Or Machinery Mechanic Relationship Specialty Start Date End Date Ayaka Salgado MD 505 [place] [address] PCP - General Internal Medicine 09/15/18 documented as of this encounter
--- OUTSIDE RECORDS SUMMARY | 2025-05-31 12:16 | XMS_ITS | Encounter Summary ---
Author Organization [employer] Address 75 [facility] 7 [place] [address] Care Team Providers Care Practice Lead Name Role Phone Ayaka Salgado MD Primary Care Provider [phone] Reason for Visit * Reason Comments Med Refill Encounter Details Date Type Department Care Team (Late st Contact Info) Description 10/07/2022 Refill [facility] 230 [place] [address] Ayaka Salgado MD [address] [facility] [place] [address] Primary osteoarthritis involving multiple joints Social History [...] AM EST Clinical Support [facility] MED & PEDS 505 [place] [address] Alana Hook, RACHELLE 505 [place] [address] documented as of this encounter Visit Diagnoses Diagnosis Primary osteoarthritis involving multiple joints documented in this encounter Additional Health Concerns Assessment Noted Time PHQ-9 Depression Total Score: 7 08/29/20 22 10:26 AM EST documented as of this encounter Care Teams Practice Lead Relationship Specialty Start Date End Date Ayaka Salgado MD 505 [place] [address] PCP - General Internal Medicine 09/15/18 documented as of this encounter
--- OUTSIDE RECORDS SUMMARY | 2025-05-31 12:16 | XMS_ITS | Encounter Summary ---
Author Organization [employer] Address [address] [place] [address] 7t [place] [address] Care Team Providers Care Cream Tester Name Role Phone Ayaka Salgado MD Primary Care Provider [phone] Encounter Details Date Type Department Care Team (Late st Contact Info) Description 01/23/2023 Abstract [facility] Information Management [address] [place] [address] Ayaka Salgado MD 505 [place], [place] [phone] Social History Tobacco Use Types Packs/Day Years [...] 9:00 AM EST Clinical Support [facility] MED & PEDS 505 [place] [address] Alana Hook, RACHELLE 505 [place] [address] documented as of this encounter Visit Diagnoses Not on filedocumented in this encounter Additional Health Concerns Assessment Noted Time PHQ-9 Depression Total Score: 7 08/29/20 22 10:26 AM EST documented as of this encounter Care Teams Cream Tester Relationship Specialty Start Date End Date Ayaka Salgado MD 505 [place] [address] PCP - General Internal Medicine 09/15/18 documented as of this encounter
--- OUTSIDE RECORDS SUMMARY | 2025-05-31 12:16 | XMS_ITS | Encounter Summary ---
Author Organization [employer] Address 75 [facility] 7 [place] [address] Care Team Providers Care Color Checker Name Role Phone Ayaka Salgado MD Primary Care Provider [phone] Reason for Visit * Reason Onset Date Comments Med Refill 02/28/2025 Encounter Details Date Type Department Care Team ([facility] st Contact Info) Description 02/28/2025 Telephone [facility] MEDICINE 230 [place], [place] [phone] Ayaka Salgado MD 505 [facility] [place] [address] Med Refill Social History Tobacco Use Types [...] 5-325 MG tablet To be sent to: [facility] #[id number] - [place] - [address] [facility] documented in this encounter Plan of Treatment Upcoming Encounters Date Type Department Care Team ([facility] st Contact Info) Description 08/17/2025 9:00 AM EST Clinical Support [facility] CHC MED & PEDS 505 [facility] [place] [address] Alana Hook, RACHELLE [address] [facility] [place] [address] documented as of this encounter Visit Diagnoses Not on filedocumented in this encounter Additional Health Concerns Assessment Noted Time PHQ-9 Depression Total Score: 12 025 11:13 AM EDT documented as of this encounter Care Teams Color Checker Relationship Specialty Start Date End Date Aayka Salgado MD [address] [place] [address] PCP - General Internal Medicine 09/15/18 documented as of this encounter
--- OUTSIDE RECORDS SUMMARY | 2025-05-31 12:16 | XMS_ITS | Encounter Summary ---
Author Organization [employer] Address 75 [facility] 7t [place] [address] Care Team Providers Care Wardrobe Technician Name Role Phone Ayaka Salgado MD Primary Care Provider [phone] Encounter Details Date Type Department Care Team (Late st Contact Info) Description 10/11/2022 Orders Only [facility] MEDICINE [address] [place] [address] Ayaka Salgado MD [address] [facility] [address] [place] [id number] Congestive heart failure, unspecified HF chronicity, unspecified [...] ([facility] st Contact Info) Description 08/17/2025 9:00 AM EST Clinical Support [facility] MED & PEDS 505 [place] [address] Alana Hook, RACHELLE 505 [place] [address] documented as of this encounter Visit Diagnoses Diagnosis Congestive heart failure, unspecified HF chronicity, unspecified heart failure type (CMS/HCC) Edema of foot Edema documented in this encounter Additional Health Concerns Assessment Noted Time PHQ-9 Depression Total Score: 7 08/29/20 22 10:26 AM EST documented as of this encounter Care Teams Wardrobe Technician Relationship Specialty Start Date End Date Ayaka Salgado MD 505 [place] [address] PCP - General Internal Medicine 09/15/18 documented as of this encounter
--- OUTSIDE RECORDS SUMMARY | 2025-05-31 12:16 | XMS_ITS | Encounter Summary ---
Author Organization [employer] Address 75 [facility] 7t [place] [address] Care Team Providers Care Intranet Developer Name Role Phone Ayaka Salgado MD Primary Care Provider [phone] Reason for Visit * Reason Comments Med Refill Encounter Details Date Type Department Care Team (Late st Contact Info) Description 03/02/2024 Refill [facility] MEDICINE 230 [place] [address] Ayaka Salgado MD 505 [facility] [address] [place] [id number] Primary osteoarthritis involving multiple joints Social History [...] Description 08/17/2025 9:00 AM EST Clinical Support [facility] MED & PEDS 505 [place] [address] Alana Hook RN 505 [place] [address] documented as of this encounter Visit Diagnoses Diagnosis Primary osteoarthritis involving multiple joints documented in this encounter Additional Health Concerns Assessment Noted Time PHQ-9 Depression Total Score: 7 08/29/20 22 10:26 AM EST documented as of this encounter Care Teams Intranet Developer Relationship Specialty Start Date End Date Ayaka Salgado MD 505 [place] [address] PCP - General Internal Medicine 09/15/18 documented as of this encounter
--- OUTSIDE RECORDS SUMMARY | 2025-05-31 12:16 | XMS_ITS | Encounter Summary ---
Author Organization [employer] Address [address] [place] [address] 7 [place] [address] Care Team Providers Care German Instructor Name Role Phone Ayaka Salgado MD Primary Care Provider [phone] Reason for Visit * Reason Onset Date Comments Med Refill 05/12/2025 Encounter Details Date Type Department Care Team ([facility] st Contact Info) Description 05/12/2025 Telephone [facility] CHC MED & PEDS 505 [place] [address] Ayaka Salgado MD 505 [place] [address] Med Refill Social History Tobacco Use Types [...] 10:04 AM EDT Medication was sent to [facility] #[id number] on 11/22/24 with 11 refills. * Telephone Encounter - Be Llamas - 05/12/2025 10:00 AM EDT TC from pt requesting medication refill. Medications needing refill : guaiFENesin (Mucinex) 600 MG 12 hr tablet To be sent to: [facility] #[id number] - [place] AT [facility] [place] documented in this encounter Plan of Treatment Upcoming Encounters Date Type Department Care Team ([place] st Contact Info) Description 08/17/2025 9:00 AM EST Clinical Support [facility] MED & PEDS 505 [place] [address] Alana Hook, RACHELLE 505 [place] [address] documented as of this encounter Visit Diagnoses Not on filedocumented in this encounter Additional Health Concerns Assessment Noted Time PHQ-9 Depression Total Score: 12 025 11:13 AM EDT documented as of this encounter Care Teams German Instructor Relationship Specialty Start Date End Date Ayaka Salgado MD 505 [place] [address] PCP - General Internal Medicine 09/15/18 documented as of this encounter
--- OUTSIDE RECORDS SUMMARY | 2025-05-31 12:16 | XMS_ITS | Encounter Summary ---
Author Organization [employer] Address 75 [facility] 7 [place] [address] Care Team Providers Care Circuit Court Clerk Name Role Phone Ayaka Salgado MD Primary Care Provider [phone] Reason for Visit * Reason Onset Date Comments Med Refill 01/25/2025 Encounter Details Date Type Department Care Team ([facility] st Contact Info) Description 01/25/2025 Telephone [facility] MEDICINE 230 [place], [place] [address] Ayaka Salgado MD 505 [facility] [place] [address] Med Refill Social History Tobacco Use Types [...] 10 MG tablet To be sent to: [email or web address] #[id number] [place] - [address] [facility] [place] documented in this encounter Plan of Treatment Upcoming Encounters Date Type Department Care Team (Late st Contact Info) Description 08/17/2025 9:00 AM EST Clinical Support [facility] MED & PEDS [address] [place] [address] Alana Hook RN [address] [place] [address] documented as of this encounter Visit Diagnoses Not on filedocumented in this encounter Additional Health Concerns Assessment Noted Time PHQ-9 Depression Total Score: 12 025 11:13 AM EDT documented as of this encounter Care Teams Circuit Court Clerk Relationship Specialty Start Date End Date Ayaka Salgado MD 505 [place] [address] PCP - General Internal Medicine 09/15/18 documented as of this encounter
--- OUTSIDE RECORDS SUMMARY | 2025-05-31 12:16 | XMS_ITS | Encounter Summary ---
Author Organization [employer] Address 75 [facility] 7 [place] [address] Care Team Providers Care Retail Selling Specialist Name Role Phone Ayaka Salgado MD Primary Care Provider [phone] Reason for Visit * Reason Onset Date Comments Med Refill 02/08/2025 Encounter Details Date Type Department Care Team ([facility] st Contact Info) Description 02/08/2025 Telephone [facility] MEDICINE 230 [place], [place] [phone] Ayaka Salgado MD 505 [facility] [place] [address] Med Refill Social History Tobacco Use Types [...] requesting status of medication. Contact pt at [phone] * Telephone Encounter - Cleopatra Ortiz - 02/08/2025 10:21 AM EDT TC from pt requesting medication refill. Medications needing refill : oxyCODONE-acetaminophen (Percocet) 5-325 MG tablet To be sent to: [facility] #[id number] - [place] - [address] AT [facility] [place] documented in this encounter Plan of Treatment Upcoming Encounters Date Type Department Care Team ([place] st Contact Info) Description 08/17/2025 9:00 AM EST Clinical Support [facility] CHC MED & PEDS 505 [place] [address] Alana Hook, RACHELLE 505 [place] [address] documented as of this encounter Visit Diagnoses Not on filedocumented in this encounter Additional Health Concerns Assessment Noted Time PHQ-9 Depression Total Score: 12 025 11:13 AM EDT documented as of this encounter Care Teams Retail Selling Specialist Relationship Specialty Start Date End Date Ayaka Salgado MD 505 [place] [address] PCP - General Internal Medicine 09/15/18 documented as of this encounter
--- OUTSIDE RECORDS SUMMARY | 2025-05-31 12:16 | XMS_ITS | Encounter Summary ---
Author Organization [employer] Address [address] [place] [address] 7 [place] [address] Care Team Providers Care Park Superintendent Name Role Phone Ayaka Salgado MD Primary Care Provider [phone] Encounter Details Date Type Department Care Team ([facility] st Contact Info) Description 02/10/2025 Orders Only [facility] CHC MED & PEDS 505 [place] [address] Ayaka Salgado MD 505 [place], [place] [phone] Arthropathy Social History Tobacco Use Types Packs/Day [...] Description 08/17/2025 9:00 AM EST Clinical Support [facility] CHC MED & PEDS 505 [place] [address] Alana Hook, RACHELLE 505 [place] [address] documented as of this encounter Visit Diagnoses Diagnosis Arthropathy Unspecified arthropathy, site unspecified documented in this encounter Additional Health Concerns Assessment Noted Time PHQ-9 Depression Total Score: 12 025 11:13 AM EDT documented as of this encounter Care Teams Park Superintendent Relationship Specialty Start Date End Date Ayaka Salgado MD 505 [place] [address] PCP - General Internal Medicine 09/15/18 documented as of this encounter
--- OUTSIDE RECORDS SUMMARY | 2025-05-31 12:16 | XMS_ITS | Encounter Summary ---
Author Organization [employer] Address [address] [facility] 7 [place] [address] Care Team Providers Care Director Of Spa And Guest Experience Name Role Phone Ayaka Salgado MD Primary Care Provider [phone] Reason for Visit * Reason Onset Date Comments Med Refill 01/19/2025 Encounter Details Date Type Department Care Team ([facility] st Contact Info) Description 01/19/2025 Telephone [facility] MEDICINE 230 [place], [place] [phone] Ayaka Salgado MD 505 [facility] [place] [address] Med Refill Social History Tobacco Use Types [...] refills and Ambien to soon for refill REGISTERED ART THERAPIST checked on 01/19/25 last filled on 12/26/24 #30. * Telephone Encounter - Cleopatra Ortiz - 01/19/2025 8:14 AM EDT TC from pt requesting medication refill. Medications needing refill : melatonin 5 MG tablet zolpidem (Ambien) 10 MG tablet To be sent to: [facility] #[id number] - [place], [place] - [address] [facility] [place] documented in this encounter Plan of Treatment Upcoming Encounters Date Type Department Care Team ([place] st Contact Info) Description 08/17/2025 9:00 AM EST Clinical Support [facility] CHC MED & PEDS 505 [place] [address] Alana Hook, RACHELLE 505 [place] [address] documented as of this encounter Visit Diagnoses Not on filedocumented in this encounter Additional Health Concerns Assessment Noted Time PHQ-9 Depression Total Score: 12 025 11:13 AM EDT documented as of this encounter Care Teams Director Of Spa And Guest Experience Relationship Specialty Start Date End Date Ayaka Salgado MD 505 [place] [address] PCP - General Internal Medicine 09/15/18 documented as of this encounter
--- OUTSIDE RECORDS SUMMARY | 2025-05-31 12:16 | XMS_ITS | Encounter Summary ---
Author Organization [employer] Address [address] [place] [address] 7 [place] [address] Care Team Providers Care Wire Mesh Gate Assembler Name Role Phone Ayaka Salgado MD Primary Care Provider [phone] Encounter Details Date Type Department Care Team ([facility] st Contact Info) Description 03/04/2025 Orders Only [facility] CHC MED & PEDS 505 [place] [address] Ayaka Salgado MD 505 [place], [place] [phone] Social History Tobacco Use Types Packs/Day Years [...] - [facility]S 505 [place] [address] Alana Hook, RACHELLE 505 [place] [address] documented as of this encounter Visit Diagnoses Not on filedocumented in this encounter Additional Health Concerns Assessment Noted Time PHQ-9 Depression Total Score: 12 025 11:13 AM EDT documented as of this encounter Care Teams Wire Mesh Gate Assembler Relationship Specialty Start Date End Date Ayaka Salgado MD 505 [place] [address] PCP - General Internal Medicine 09/15/18 documented as of this encounter
--- OUTSIDE RECORDS SUMMARY | 2025-05-31 12:16 | XMS_ITS | Encounter Summary ---
Author Organization [employer] Address [address] [place] [address] Care Team Providers Care 8Th Grade Teacher Name Role Phone Ayaka Salgado MD Primary Care Provider [phone] Reason for Visit * Reason Onset Date Comments Letter Accomodation 12/12/2022 Encounter Details Date Type Department Care Team ([facility] st Contact Info) Description 12/12/2022 Telephone [facility] CHC MED & PEDS 505 [place] [address] Ayaka Salgado MD 505 [place] [address] Letter Accomodation Social History Tobacco Use Types [...] hisPercocet. Advised message will be forwarded to AIR BOX TESTER nurse regarding his request. Pt verbalizes understanding. * Telephone Encounter - Abiel Mills - 12/12/2022 9:32 AM EDT Tc from pt requesting an Accomodation letter. Please contact pt at [phone] documented in this encounter Plan of Treatment Upcoming Encounters Date Type Department Care Team (Late st Contact Info) Description 08/17/2025 9:00 AM EST Clinical Support [facility] MED & PEDS 505 [place] [address] Alana Hook, RN 505 [place] [address] documented as of this encounter Visit Diagnoses Diagnosis Congestive heart failure, unspecified HF chronicity, unspecified heart failure type (CMS/[facility]) Primary osteoarthritis involving multiple joints documented in this encounter Additional Health Concerns Assessment Noted Time PHQ-9 Depression Total Score: 7 08/29/20 22 10:26 AM EST documented as of this encounter Care Teams 8Th Grade Teacher Relationship Specialty Start Date End Date Ayaka Salgado MD [address] [place] [address] PCP - General Internal Medicine 09/15/18 documented as of this encounter
--- OUTSIDE RECORDS SUMMARY | 2025-05-31 12:16 | XMS_ITS | Encounter Summary ---
Author Organization [employer] Address 75 [facility] 7t [place] [address] Care Team Providers Care Paint Booth Operator Name Role Phone Ayaka Salgado MD Primary Care Provider [phone] Encounter Details Date Type Department Care Team (Late st Contact Info) Description 04/29/2024 Telephone [facility] MEDICINE 230 [place] [address] Ayaka Salgado MD [address] [place] [id number] Social History Tobacco Use Types Packs/Day Years [...] 10 MG tablet To be sent to: [facility] #[id number] - [place], [place] - [address] [place] [address] [facility] [place] documented in this encounter Plan of Treatment Upcoming Encounters Date Type Department Care Team (Late st Contact Info) Description 08/17/2025 9:00 AM EST Clinical Support [facility] MED & PEDS 505 [place] [address] Alana Hook RN 505 [place] [address] documented as of this encounter Visit Diagnoses Not on filedocumented in this encounter Additional Health Concerns Assessment Noted Time PHQ-9 Depression Total Score: 7 08/29/20 22 10:26 AM EST documented as of this encounter Care Teams Paint Booth Operator Relationship Specialty Start Date End Date Ayaka Salgado MD 505 [place] [address] PCP - General Internal Medicine 09/15/18 documented as of this encounter
--- OUTSIDE RECORDS SUMMARY | 2025-05-31 12:16 | XMS_ITS | Encounter Summary ---
Author Organization [employer] Address [address] [place] [address] 7 [place] [address] Care Team Providers Care Hydrometer Calibrator Name Role Phone Ayaka Salgado MD Primary Care Provider [phone] Reason for Visit * Reason Comments Med Refill Encounter Details Date Type Department Care Team ([facility] st Contact Info) Description 02/24/2023 Refill [facility] CHC MED & PEDS 505 [place] [address] Ayaka Salgado MD 505 [place] [address] Social History Tobacco Use Types Packs/Day Years [...] [facility] st Contact Info) Description 08/17/2025 9:00 AM EST Clinical Support [facility] MED & PEDS 505 [place] [address] Alana Hook, RN 505 [place] [address] documented as of this encounter Visit Diagnoses Not on filedocumented in this encounter Additional Health Concerns Assessment Noted Time PHQ-9 Depression Total Score: 7 08/29/20 22 10:26 AM EST documented as of this encounter Care Teams Hydrometer Calibrator Relationship Specialty Start Date End Date Ayaka Salgado MD 505 [place] [address] PCP - General Internal Medicine 09/15/18 documented as of this encounter
--- OUTSIDE RECORDS SUMMARY | 2025-05-31 12:16 | XMS_ITS | Encounter Summary ---
Author Organization [employer] Address 75 [facility] 7t [place] [address] Care Team Providers Care Polymer Engineer Name Role Phone Ayaka Salgado MD Primary Care Provider [phone] Encounter Details Date Type Department Care Team (Latest Contact Info) Description 05/31/2025 Travel Social History Tobacco Use Types Packs/Day [...] ([facility] st Contact Info) Description 08/17/2025 9:00 AM EST Clinical Support [facility] MED & PEDS 505 [place] [address] Alana Hook, RACHELLE 505 [place] [address] documented as of this encounter Visit Diagnoses Not on filedocumented in this encounter Additional Health Concerns Assessment Noted Time PHQ-9 Depression Total Score: 12 025 11:13 AM EDT documented as of this encounter Care Teams Polymer Engineer Relationship Specialty Start Date End Date Ayaka Salgado MD 505 [place] [address] PCP - General Internal Medicine 09/15/18 documented as of this encounter
--- OUTSIDE RECORDS SUMMARY | 2025-05-31 12:16 | XMS_ITS | Encounter Summary ---
Author Organization [employer] Address [address] [place] [address] 7 [place] [address] Care Team Providers Care Central Office Frame Wirer Name Role Phone Ayaka Salgado MD Primary Care Provider [phone] Reason for Visit * Reason Comments Med Refill Encounter Details Date Type Department Care Team ([facility] st Contact Info) Description 03/26/2025 Refill [facility] CHC MED & PEDS 505 [place] [address] Ayaka Salgado MD 505 [place] [address] Social History Tobacco Use Types Packs/Day Years [...] 9:00 AM EST Clinical Support [facility] CHC MED & PEDS 505 [place] [address] Alana Hook, RACHELLE 505 [place] [address] documented as of this encounter Visit Diagnoses Not on filedocumented in this encounter Additional Health Concerns Assessment Noted Time PHQ-9 Depression Total Score: 12 025 11:13 AM EDT documented as of this encounter Care Teams Central Office Frame Wirer Relationship Specialty Start Date End Date Ayaka Salgado MD 505 [place] [address] PCP - General Internal Medicine 09/15/18 documented as of this encounter
--- OUTSIDE RECORDS SUMMARY | 2025-05-31 12:16 | XMS_ITS | Encounter Summary ---
Author Organization [employer] Address [address] [place] [address] 7 [place] [address] Care Team Providers Care Burial Needs Salesperson Name Role Phone Ayaka Salgado MD Primary Care Provider [phone] Reason for Visit * Reason Onset Date Comments Med Refill 05/31/2025 Encounter Details Date Type Department Care Team ([facility] st Contact Info) Description 05/31/2025 Refill [facility] CHC MED & PEDS 505 [place] [address] Alana Hook, RN 505 [place], [place] Simple chronic bronchitis (CMS/HCC) Social History Tobacco Use Types Packs/Day [...] 08/17/2025 9:00 AM EST Clinical Support [facility] MED & PEDS 505 [place] [address] Alana Hook, RACHELLE 505 [place] [address] documented as of this encounter Visit Diagnoses Diagnosis Simple chronic bronchitis (CMS/HCC) Simple chronic bronchitis documented in this encounter Additional Health Concerns Assessment Noted Time PHQ-9 Depression Total Score: 12 025 11:13 AM EDT documented as of this encounter Care Teams Burial Needs Salesperson Relationship Specialty Start Date End Date Ayaka Salgado MD 505 [place] [address] PCP - General Internal Medicine 09/15/18 documented as of this encounter
--- OUTSIDE RECORDS SUMMARY | 2025-05-31 12:16 | XMS_ITS | Encounter Summary ---
Author Organization [employer] Address [address] [place] [address] Care Team Providers Care Wet Process Assistant Head Miller Name Role Phone Ayaka Salgado MD Primary Care Provider [phone] Reason for Visit * Reason Onset Date Comments Med Refill 12/12/2022 Encounter Details Date Type Department Care Team ([facility] st Contact Info) Description 12/12/2022 Telephone [facility] MED & PEDS 505 [place] [address] Ayaka Salgado MD 505 [place] [address] Med Refill Social History Tobacco Use Types [...] (Norvasc) 5 MG tablet Please sent to [facility] #[id number] - [place] - [address] [facility] documented in this encounter Plan of Treatment Upcoming Encounters Date Type Department Care Team ([facility] st Contact Info) Description 08/17/2025 9:00 AM EST Clinical Support [facility] CHC MED & PEDS 505 [place] [address] Alana Hook, RN 505 [place] [address] documented as of this encounter Visit Diagnoses Not on filedocumented in this encounter Additional Health Concerns Assessment Noted Time PHQ-9 Depression Total Score: 7 08/29/20 22 10:26 AM EST documented as of this encounter Care Teams Wet Process Assistant Head [place] Relationship Specialty Start Date End Date Ayaka Salgado MD 505 [place] [address] PCP - General Internal Medicine 09/15/18 documented as of this encounter
--- OUTSIDE RECORDS SUMMARY | 2025-05-31 12:16 | XMS_ITS | Encounter Summary ---
Author Organization [employer] Address 75 [facility] 7 [place] [address] Care Team Providers Care Autocad Operator Name Role Phone Ayaka Salgado MD Primary Care Provider [phone] Reason for Visit * Reason Onset Date Comments Med Refill 09/29/2024 Encounter Details Date Type Department Care Team (Late st Contact Info) Description 09/29/2024 Refill [facility] MEDICINE 230 [place] [address] Ayaka Salgado MD [address] [facility] [address] [place] [phone] Arthropathy (Primary Dx) Social History Tobacco Use [...] 5-325 MG tablet To be sent to: [facility] #[id number] - [place] - [address] [facility] documented in this encounter Plan of Treatment Upcoming Encounters Date Type Department Care Team ([facility] st Contact Info) Description 08/17/2025 9:00 AM EST Clinical Support [facility] CHC MED & PEDS 505 [place] [address] Alana Hook RN 505 [place] [address] documented as of this encounter Visit Diagnoses Diagnosis Arthropathy- Primary Unspecified arthropathy, site unspecified documented in this encounter Additional Health Concerns Assessment Noted Time PHQ-9 Depression Total Score: 7 08/29/20 22 10:26 AM EST documented as of this encounter Care Teams Autocad Operator Relationship Specialty Start Date End Date Ayaka Salgado MD 505 [facility] [place] [address] PCP - General Internal Medicine 09/15/18 documented as of this encounter
--- OUTSIDE RECORDS SUMMARY | 2025-05-31 12:16 | XMS_ITS | Encounter Summary ---
Author Organization [employer] Address [address] [place] [address] Care Team Providers Care Professor Of Management Name Role Phone Ayaka Salgado MD Primary Care Provider [phone] Reason for Visit * Reason Onset Date Comments Med Refill 12/12/2022 Encounter Details Date Type Department Care Team ([facility] st Contact Info) Description 12/12/2022 Telephone [facility] MED & PEDS [address] [place] [address] Ayaka Salgado MD [address] [place] [address] Med Refill Social History Tobacco Use Types [...] (Percocet) 5-325 MG tablet Please sent to [facility] #[id number] - [place] - [address] [facility] documented in this encounter Plan of Treatment Upcoming Encounters Date Type Department Care Team (Late st Contact Info) Description 08/17/2025 9:00 AM EST Clinical Support [facility] MED & PEDS [address] [place] [address] Alana Hook, RN [address] [place] [address] documented as of this encounter Visit Diagnoses Not on filedocumented in this encounter Additional Health Concerns Assessment Noted Time PHQ-9 Depression Total Score: 7 08/29/20 22 10:26 AM EST documented as of this encounter Care Teams Professor Of Management Relationship Specialty Start Date End Date Ayaka Salgado MD [address] [place] [address] PCP - General Internal Medicine 09/15/18 documented as of this encounter
--- OUTSIDE RECORDS SUMMARY | 2025-05-31 12:16 | XMS_ITS | Encounter Summary ---
Author Organization [employer] Address [address] [place] [address] [address] [place] [address] Care Team Providers Care Chaser Apprentice Name Role Phone Ayaka Salgado MD Primary Care Provider [phone] Reason for Visit * Reason Onset Date Comments Nurse Triage 02/04/2025 Encounter Details Date Type Department Care Team ([facility] st Contact Info) Description 02/04/2025 Telephone [facility] MED & PEDS [address] [place] [address] Ayaka Salgado MD [address] [place] [address] Nurse Triage Social History Tobacco Use Types [...] - 02/04/2025 1:44 PM EDT Tc from foster care therapist Jaleel stating pt had cardiac procedure done. Jaleel reported pt removed bandage and is bleeding. [employer] advise will send a message to triage nurse. Contact pt at [phone] If any questions Jaleel at [phone] ext [phone] documented in this encounter Plan of Treatment Upcoming Encounters Date Type Department Care Team (Late st Contact Info) Description 08/17/2025 9:00 AM EST Clinical Support [facility] MED & PEDS [address] [place] [address] Alana Hook, RACHELLE [address] [place] [address] documented as of this encounter Visit Diagnoses Diagnosis Arthropathy Unspecified arthropathy, site unspecified documented in this encounter Additional Health Concerns Assessment Noted Time PHQ-9 Depression Total Score: 12 025 11:13 AM EDT documented as of this encounter Care Teams Chaser Apprentice Relationship Specialty Start Date End Date Ayaka Salgado MD [address] [place] [address] PCP - General Internal Medicine 09/15/18 documented as of this encounter
== END 2025-05-31 09:59 | disposition home or self-care (01) ==
PROVIDERS: PCP Internal Medicine; Visit Provider Internal Medicine Hypertension Specialist
DX: D64.9 Anemia, unspecified (principal); N18.5 Chronic kidney disease, stage 5; I12.0 Hypertensive chronic kidney disease with stage 5 chronic kidney disease or end stage renal disease; I50.32 Chronic diastolic (congestive) heart failure; E11.8 Type 2 diabetes mellitus with unspecified complications; E66.9 Obesity, unspecified; E21.3 Hyperparathyroidism, unspecified; N40.1 Benign prostatic hyperplasia with lower urinary tract symptoms
CPT/HCPCS: 99214

== ENCOUNTER → 2025-05-31 09:36 | Outpatient (BNVA) | payer MEDICARE, SELFPAY | PROVIDERS: PCP Internal Medicine; Visit Provider Internal Medicine Hypertension Specialist | DX: I13.2 Hypertensive heart and chronic kidney disease with heart failure and with stage 5 chronic kidney disease, or end stage renal disease (principal); E11.22 Type 2 diabetes mellitus with diabetic chronic kidney disease; N18.5 Chronic kidney disease, stage 5; D63.1 Anemia in chronic kidney disease; I50.32 Chronic diastolic (congestive) heart failure; E66.9 Obesity, unspecified; E21.3 Hyperparathyroidism, unspecified; Z68.33 Body mass index [BMI] 33.0-33.9, adult; Z79.4 Long term (current) use of insulin; Z87.891 Personal history of nicotine dependence | CPT/HCPCS: 96372; 99212; Q5106 ==

== ENCOUNTER → 2025-07-08 23:59 | Outpatient (BNV) | payer MEDICARE, SELFPAY ==
--- NOTE | 2025-07-15 16:27 | A.OFFVIS_ITS ---
Intake Visit Reasons: Remote Cardiomems- St Jr Allergies aspirin Adverse Reaction (Unknown, Verified 05/31/25 09:41) nose bleeds metformin Adverse Reaction (Unknown, Verified 05/31/25 09:41) hypoglycemia warfarin (From Coumadin) Adverse Reaction (Unknown, Verified 05/31/25 09:41) Nose Bleed apixaban Adverse Reaction (Verified 05/31/25 09:41) Nose Bleed clopidogrel Adverse Reaction (Verified 05/31/25 09:41) Nose Bleed [facility] Medical History Obesity (BMI 30-39.9) Elevated brain natriuretic peptide (BNP) level Lower extremity edema COPD (chronic obstructive pulmonary disease) LEONEL (obstructive sleep apnea) Dyspnea on minimal exertion COPD (chronic obstructive pulmonary disease) Smoker Left ventricular hypertrophy Smoking CKD (chronic kidney disease) Obesity Dyslipidemia Hypertension Diabetes mellitus Surgical History No pertinent past surgical history Family History Father No problems noted. Mother Diabetes Family/Other No problems noted. Social History Household Members: Significant Other Housing: Apartment Do you presently have visiting nurse or other home services: No Alcohol intake: current Alcohol intake frequency: a few times a month Patient Tobacco Use Status: Former Tobacco user e-Cigarette/Vaping Use: Never Used Second Hand Smoke Exposure: No Advance Directives Date on File: 08/23/22 service: No Current occupational status: disabled Office Procedures Cardiac Device Check Cardiac Device Check Details: Monitoring period dates: 05/27/25 - 07/08/25 Optimal PA pressure range: PAD goal 16mmhg Procedure code: 24401 BACKGROUND: Lewis is implanted with the CardioMEMS PA Sensor.? I use this technology to monitor PA pressures on a weekly basis to ensure patients are within their optimal range to prevent decompensation.? SUMMARY:? I utilized the remote monitoring platform ([employer]) to set optimal targets for pulmonary artery pressure thresholds as part of acute and chronic management of patient?s heart failure. During the period indicated above, I monitored the patient?s pulmonary artery pressures weekly via trend analysis and notification reports which provide alerts when patient?s PA pressures were outside of range to prompt immediate action in medication changes and communications.? The weekly reports are archived in the [employer] system which serve as a parallel record to document weekly PA pressures, medication changes, and clinical notes. I have reviewed readings on 05/27, 06/03, 06/10, 06/17, 06/24, 07/01, 07/08. Readings have ranged between 16-24mmhg. He has advanced CKD and no diuretic changes were made. 19864 - Remote monitoring of wireless pulmonary artery pressure sensor Procedure code (CPT) selection complete Assessment & Plan Assessment & Plan (1) Presence of CardioMEMS HF system: Code(s): Z95.818 - Presence of other cardiac implants and grafts Category: Medical Plan: monthly report Coding Level of Care Code Procedure Only Diagnoses Presence of CardioMEMS HF system Z95.818 CPT Codes Cardiac Device Check - Cardiac Device 17: 98707 - Remote monitoring of wireless pulmonary artery pressure sensor ([id number])
== END ==
PROVIDERS: PCP Internal Medicine; Visit Provider Nurse Practitioner Family
DX: Z45.09 Encounter for adjustment and management of other cardiac device (principal)
CPT/HCPCS: 93264

== ENCOUNTER 2025-07-20 09:10 | Outpatient (AMB) | payer MEDICARE, SELFPAY ==
--- OUTSIDE RECORDS SUMMARY | 2025-07-19 11:00 | XMS_ITS | Encounter Summary ---
Author Organization [facility] Address [address] [place] [address] Care Team Providers Care Parts Remover Name Role Phone Ayaka Salgado Primary Care Provider Reason for Referral * Pulmonary (Routine) - Closed Specialty Diagnoses / Procedures Referred By Froy galdamez Referred To Contact Diagnoses Dyspnea, unspecified type Procedures Pulmonary function test Joey Duarte MD [address] [place] [address] Phone: tel: fax: Referral ID Status Reason Start Date Expiration Date Visits Re quested Visits Authorized [id number] Closed 06/28/2025 12/28/2026 1 1 Reason for Visit * Pulmonary (Routine) - Closed Specialty Diagnoses / Procedures Referred By Froy galdamez Referred To Contact Diagnoses Dyspnea, unspecified type Procedures Pulmonary function test Joey Duarte MD [address] [place] [address] Phone: tel: fax: Referral ID Status Reason Start Date Expiration Date Visits Re quested Visits Authorized [id number] Closed 06/28/2025 12/28/2026 1 1 Encounter Details Date Type Department Care Team (Latest Contact Info) Description 07/19/2025 11:00 AM EST - 07/19/2025 11:59 PM EST Hospital Encounter [facility] Pulmonary Function Lab [address] [place] [address] Dyspnea, unspecified type Discharge Disposition: Home or Self Care () Social History Tobacco Use Types Packs/Day Years Used Date Smoking Tobacco: Former Cigarettes Smokeless Tobacco: Never Comments:Quit 08/22/2022 Alcohol Use Standard Drinks/Week Comments Yes 0 (1 standard drink = 0.6 oz pur e alcohol) socially Sex and Gender Information Value Date Recorded Sex Assigned at Male 07/29/2024 8:57 AM EST Legal Sex Male 10:21 AM EDT Gender Identity Not on file Sexual Orientation Not on file documented as of this encounter Medications at Time of Discharge albuterol 2.5 mg/3 mL (0.083%) nebulizer solution SMARTSI Milliliter(s) Via Nebulizer Every 4 Hours PRN 05/27/2024 aspirin 81 mg EC tablet SMARTSI Tablet(s) By Mouth Daily blood glucose diagnostic test strip USE TO TEST BLOOD SUGAR TWICE A DAY 07/14/2024 budesonide-formo teroL (SYMBICORT) 160-4.5 mcg inhaler Inhale 2 puffs by mouth 2 times daily. 05/07/2024 bumetanide (BUMEX) 1 mg tablet 05/07/2024 calcitrioL (ROCALTROL) 0.25 mcg capsule 06/04/2024 cinacalcet (SENSIPAR) 30 mg tablet SMARTSI Tablet(s) By Mouth Daily 05/29/2024 cloNIDine (CATAPRES) 0.2 mg tablet SMARTSI Tablet(s) By Mouth 3 Times Daily 03/16/2024 clopidogreL (PLAVIX) 75 mg tablet SMARTSI Tablet(s) By Mouth Daily 05/05/2025 gabapentin (NEURONTIN) 300 mg capsule Take 300 mg by mouth 3 times daily. 08/17/2024 glimepiride (AMARYL) 1 mg tablet 04/14/2024 guaiFENesin ER (MUCINEX) 600 mg tablet Take 1,200 mg by mouth 2 times daily. 11/22/2024 hydrALAZINE (APRESOLINE) 100 mg tablet SMARTSI Tablet(s) By Mouth 3 Times Daily 05/16/2024 Incruse Ellipta 62.5 mcg/actuation blister with device Inhale by mouth. 02/22/2025 Januvia 25 mg tablet TAKE 1 TABLET(25 MG) BY MOUTH IN THE MORNING 09/09/2024 labetaloL (NORMODYNE) 300 mg tablet 05/23/2025 losartan (COZAAR) 50 mg tablet SMARTSI Tablet(s) By Mouth Daily 04/20/2025 melatonin 5 mg tablet 1 tab of 5 mg at bedtime 06/24/2025 OneTouch Verio Reflect Meter misc USE TO TEST BLOOD SUGAR TWICE A DAY 07/19/2024 OneTouch Verio test strips USE TO TEST BLOOD SUGAR TWICE A DAY 07/14/2024 oxyCODONE-acetam inophen (PERCOCET) 5-325 mg tablet SMARTSI Tablet(s) By Mouth Every 8 Hours PRN 06/01/2024 simvastatin (ZOCOR) 20 mg tablet 03/25/2024 tiotropium (SPIRIVA HANDIHALER) 18 mcg inhalation capsule Inhale 1 capsule via handihaler once a day. umeclidinium-burton anteroL (Anoro Ellipta) 62.5-25 mcg/actuation blister with device Inhale 62.5 puffs by mouth once a day. Ventolin HFA 90 mcg/actuation inhaler SMARTSI Puff(s) By Mouth Every 6 Hours PRN 05/28/2024 Vitamin D3 25 mcg (1,000 unit) capsule Take 1,000 Units by mouth. Every other day zolpidem (AMBIEN) 10 mg tablet Take 10 mg by mouth nightly as needed for sleep. documented as of this encounter Miscellaneous Notes * Brief Progress Note - Anabell Guerrero RRT - 07/19/2025 11:00 AM EST Patient arrived to clinic today sick x1 week, congested, coughing up mucus, etc stating he was not feeling well. Patient will rebook PFT when symptoms have improved. documented in this encounter Plan of Treatment Upcoming Encounters Date Type Department Care Team (Late st Contact Info) Description 10/17/2025 9:30 AM EST Office Visit [facility] Lung and Allergy Center [address] [place] [phone] Bilingual Patient Support Caseworker: Lissa Vidal DO [address] [facility] [place] [address] 06/13/2026 9:40 AM EDT Follow-Up [facility] Renal Transplant [address] [place] [address] Joey Duarte MD [address] [place] [address] 06/13/2026 10:00 AM EDT Social Work [facility] Renal Transplant [address] [place] [address] Hugh Holman Pending Results Name Type Priority Associated Diagnoses Date /Time Pulmonary function test PFT Routine Dyspnea, unspecified type 07/19/2025 11:30 AM EST Scheduled Orders Name Type Priority Associated Diagnoses Orde r Schedule Pulmonary function test PFT Routine Dyspnea, unspecified type Once for 1 Occurrences starting 07/19/2025 until 07/19/2025 documented as of this encounter Visit Diagnoses Diagnosis Dyspnea, unspecified type documented in this encounter Care Teams Parts Remover Relationship Specialty Start Date End Date Ayaka Salgado [address] [place] [address] PCP - General Internal Medicine 07/29/24 documented as of this encounter
--- OUTSIDE RECORDS SUMMARY | 2025-07-19 12:20 | XMS_ITS | Encounter Summary ---
Author Organization [facility] Address [address] [id number] Care Team Providers Care Supervisor Sewer System Name Role Phone Ayaka Salgado Primary Care Provider [phone] Reason for Referral * Cardiac Diagnostic Testing (Routine) - Authorized Specialty Diagnoses / Procedures Referred By Froy galdamez Referred To Contact Diagnoses Permanent atrial fibrillation Essential hypertension Pulmonary hypertension Coronary atherosclerosis of autologous vein bypass graft without angina Pre-transplant evaluation for end stage renal disease Procedures ECG 12 lead Alexandre Piña MD [address] [place] [address] Phone: tel: fax: Referral ID Status Reason Start Date Expiration Date V isits Requested Visits Authorized [id number] Authorized 07/19/2025 01/18/2027 1 1 Reason for Visit * Consultation (Urgent) - Pending Review Specialty Diagnoses / Procedures Referred By Froy galdamez Referred To Contact Cardiology Diagnoses Dyspnea, unspecified type Joey Duarte MD [address] [place] [address] Phone: tel: fax: Referral ID Status Reason Start Date Expiration Date Visits Requested Visits Authorized [id number] Pending Review Specialty Services Required 07/29/2026 6 6 Encounter Details Date Type Department Care Team (Latest Contact Info) Description 07/19/2025 12:20 PM EST Office Visit [facility] 4th floor Cardiology Medicine [address] [place] [phone] Senior Linux Engineer: Alexandre Lynch MD [address] [place] [id number] Permanent atrial fibrillation (Primary Dx); Essential hypertension; Pulmonary hypertension ; Coronary atherosclerosis of autologous vein bypass graft without angina; Pre-transplant evaluation for end stage renal disease Social History Tobacco Use Types Packs/Day Years [...] on file documented as of this encounter Last Filed Vital Signs Vital Sign Reading Time Taken Comments Blood Pressure 151/83 07/19/2025 12:14 PM EST Pulse 50 07/19/2025 12:06 PM EST Temperature - - Respiratory Rate 18 07/19/2025 12:06 PM EST Oxygen Saturation 98% 07/19/2025 12:06 PM EST Inhaled Oxygen Concentration - - Weight 98.2 kg (216 lb 7.9 oz) 07/19/2025 12:06 PM EST Height 170.2 cm (5' 7 ) 07/19/2025 12:06 PM EST Body Mass Index 33.91 07/19/2025 12:06 PM EST documented in this encounter Progress Notes * Alexandre Piña MD - 07/19/2025 12:20 PM EST Images from the original note were not included. Dr Dr. Salgado, I saw Lewis Snyder in the cardiovascular medicine clinic today. As you know, he is a pleasant 69-year-old male with a history of type 2 diabetes mellitus, hypertension, stage IV chronic kidney disease currently under evaluation for combined kidney and pancreas transplantation, permanent atrial fibrillation, and pulmonary hypertension. He presented today for further evaluation and management. Lewis currently resides in the [place] area, which makes travel to [facility] quite challenging for him. His functional capacity is limited, primarily due to chronic knee pain. He experiences shortness of breath after walking only a short distance, which he attributes to chronic obstructive pul monary disease. He denies any chest pain or pressure at rest or with exertion, orthopnea, paroxysmal nocturnal dyspnea, lightheadedness, syncope, or lower- extremity edema. He notes that since starting Bumex and adhering more closely to his diet, his leg swelling has been much improved. He has not required hospitalization in the past three years. Lewis is followed locally by his tobacco curer, Dr. Jose Kim at [facility]. He reports having a CardioMEMS device implanted, although details regarding his most recent pulmonary artery pressure recordings are not available at this time. Prior cardiac imaging test and procedures; Echocardiography: By report, echocardiogram done 09/22/2024 At [facility] showed a left ejection fraction of 59%, mild to moderate mitral regurgitation and tricuspid regurgitation, severely dilated left atrium and mild tension with an estimated right ventricular systolic pressure of 50 mmHg. Other imaging tests: Abdominal CT 07/29/2024 IMPRESSION: 1)Mild hepatomegaly with changes likely related to early cirrhosis. 2) Probable adenomyomatosis of the gallbladder. 3) Bilateral renal atrophy with small renal cysts. No hydronephrosis or calculi. Prominent perirenal stranding left greater than right, nonspecific. 4) Increased number of small lymphnodes in the retroperitoneum abutting the aorta, nonspecific but presumably reactive. 5) Advanced atheromatous calcification and ectasia of the aorta and iliac arteries. No discrete aneurysm. 6) Mild to moderate cardiac enlargement. Mosaic attenuation of the imaged lungs, likely air trapping. Other etiologies not excluded. Carotid artery duplex 04/12/2024 IMPRESSION: 1. RIGHT: Minimal, non-hemodynamically significant stenosis of the proximal right internal carotid artery corresponding to a 0-49% stenosis by velocity criteria. 2. LEFT: Moderate, hemodynamically significant stenosis of the proximal left internal carotid artery corresponding to a 50-79% stenosis by velocity criteria. Coronary arteriography: Procedures: Apparently the patient had a watchman and a CardioMEMS device placed at [facility] in [facility]. Review of Systems: Review of Systems Constitutional: Negative for fever and unexpected weight change. Respiratory: Negative for cough. Gastrointestinal: Negative for blood in stool, constipation and diarrhea. Genitourinary: Negative for difficulty urinating, dysuria and hematuria. Skin: Negative for color change. Neurological: Negative for headaches and syncope. Psychiatric/Behavioral: Negative for confusion. The patient is not nervous/anxious. All other systems reviewed and are negative. Past Medical History: Past Medical History: Diagnosis Date Carotid stenosis CHF (congestive heart failure) COPD (chronic obstructive pulmonary disease) Hyperparathyroidism, secondary (HCC) Hypertension Obesity LEONEL (obstructive sleep apnea) Type 2 diabetes mellitus Pulmonary hypertension Stage IV CKD Atrial fibrillation: Status post Watchman procedure Possible early liver cirrhosis Past Surgical History: History reviewed. No pertinent surgical history. Family History His mother still alive at 88 with arthritic complaints. He has 3 older brothers who do not have significant cardiac disease. ALLERGIES: Apixaban, Aspirin, Clopidogrel, Heparin, Metformin, Trazodone, and Warfarin Current Medications: Current Outpatient Medications Medication Sig Dispense Refill albuterol 2.5 mg/3 mL (0.083%) nebulizer solution SMARTSI Milliliter(s) Via Nebulizer Every 4 Hours PRN (Patient not taking: Reported on 07/19/2025) aspirin 81 mg EC tablet SMARTSI Tablet(s) By Mouth Daily blood glucose diagnostic test strip USE TO TEST BLOOD SUGAR TWICE A DAY budesonide-formoteroL (SYMBICORT) 160-4.5 mcg inhaler Inhale 2 puffs by mouth 2 times daily. bumetanide (BUMEX) 1 mg tablet calcitrioL (ROCALTROL) 0.25 mcg capsule cinacalcet (SENSIPAR) 30 mg tablet SMARTSI Tablet(s) By Mouth Daily cloNIDine (CATAPRES) 0.2 mg tablet SMARTSI Tablet(s) By Mouth 3 Times Daily clopidogreL (PLAVIX) 75 mg tablet SMARTSI Tablet(s) By Mouth Daily gabapentin (NEURONTIN) 300 mg capsule Take 300 mg by mouth 3 times daily. glimepiride (AMARYL) 1 mg tablet guaiFENesin ER (MUCINEX) 600 mg tablet Take 1,200 mg by mouth 2 times daily. hydrALAZINE (APRESOLINE) 100 mg tablet SMARTSI Tablet(s) By Mouth 3 Times Daily Incruse Ellipta 62.5 mcg/actuation blister with device Inhale by mouth. Januvia 25 mg tablet TAKE 1 TABLET(25 MG) BY MOUTH IN THE MORNING labetaloL (NORMODYNE) 300 mg tablet losartan (COZAAR) 50 mg tablet SMARTSI Tablet(s) By Mouth Daily melatonin 5 mg tablet 1 tab of 5 mg at bedtime OneTouch Verio Reflect Meter misc USE TO TEST BLOOD SUGAR TWICE A DAY OneTouch Verio test strips USE TO TEST BLOOD SUGAR TWICE A DAY oxyCODONE-acetaminophen (PERCOCET) 5-325 mg tablet SMARTSI Tablet(s) By Mouth Every 8 Hours PRN simvastatin (ZOCOR) 20 mg tablet tiotropium (SPIRIVA HANDIHALER) 18 mcg inhalation capsule Inhale 1 capsule via handihaler once a day. (Patient not taking: Reported on 07/19/2025) umeclidinium-vilanteroL (Anoro Ellipta) 62.5-25 mcg/actuation blister with device Inhale 62.5 puffsby mouth once a day. (Patient not taking: Reported on 07/19/2025) Ventolin HFA 90 mcg/actuation inhaler SMARTSI Puff(s) By Mouth Every 6 Hours PRN Vitamin D3 25 mcg (1,000 unit) capsule Take 1,000 Units by mouth. Every other day zolpidem (AMBIEN) 10 mg tablet Take 10 mg by mouth nightly as needed for sleep. No current facility-administered medications for this visit. Social History: . Retired. Still drives his car. Quit smoking 3 years ago Physical Exam: VITAL SIGNS: BP (!) 151/83 (BP Location: Left arm, Patient Position: Sitting) Pulse (!) 50 Resp18 Ht 1.702 m (5' 7 ) Wt 98.2 kg (216 lb 7.9 oz) SpO2 98% BMI 33.91 kg/m?? GENERAL: Well appearing 69 y.o. male sitting comfortably on the examining table, in no apparent distress. Overweight. HEENT: No xanthalasmas. Sclera are non-icteric. Mucous membranes are moist. NECK: No jugular venous distention. Carotids are without bruits. CARDIOVASCULAR: Regular rate and rhythm with normal S1 and S2. No S3 or S4. No murmurs. CHEST: Clear to auscultation bilaterally without wheezing rales or rhonchi. ABDOMINAL: Obese. Soft, non-tender, non-distended with normoactive bowel sounds. EXTREMITIES: Warm and well perfused, without cyanosis, clubbing, or edema. Normal pulses. PSYCHIATRIC: Appropriate mood and affect. NEUROLOGIC: Alert and oriented x3. SKIN: No jaundice. Laboratory Data: Lab Results Component Value Date WBC 6.0 07/29/2024 HGB 9.7 (L) 07/29/2024 HCT 31.5 (L) 07/29/2024 MCV 85.4 07/29/2024 PLT 212 07/29/2024 Chemistry Component Value Date/Time BUN 53 (H) 07/29/2024 1257 CREATININE 4.54 (H) 07/29/2024 1257 Component Value Date/Time CALCIUM 8.6 07/29/2024 1257 AST 22 07/29/2024 1257 ALT 13 07/29/2024 1257 BILITOT 0.5 07/29/2024 1257 No results found for: BNP No data to display Latest Ref Rng & Units 07/29/2024 12:57 PM HgbA1c Hemoglobin A1C <5.7 % of total Hgb 6.7 Cardiac Diagnostics: I ordered and reviewed an ECG which demonstrates atrial fibrillation with slow ventricular response. Heart rate 50 bpm. Right bundle branch block. Imaging studies: Echocardiogram [facility] 09/22/2024 Procedures: Recent Cardiac Cath No resulted procedures found. Assessment & Plan: Summary of visit: Green features of the current clinical status: Drug-resistant hypertension Stage IV CKD Currently being evaluated for kidney and pancreas transplant Atherosclerotic disease Permanent atrial fibrillation-status post Watchman Chronic HFpEF: Currently has CardioMEMS in place Disease trajectory: Uncertain in view of CKD. Plans for this visit: Plan as outlined in bold below. Detailed assessment of each cardiac problem: Candidacy for Renal-Pancreas Transplant Cardiovascular Risk Profile: Hypertension: Drug-resistant. Coronary Artery Disease (CAD): No prior cardiac stress test performed to assess for ischemia. Heart Failure Syndrome: Echocardiogram findings suggest chronic heart failure with preserved ejection fraction (HFpEF). Permanent Atrial Fibrillation: Rate-controlled; not on anticoagulation due to presence of a left atrial appendage occlusion device. Peripheral Artery Disease (PAD): Evidence of moderate carotid disease and extensive vascular calcification involving the abdominal aorta and iliac vessels. Plan: To better assess cardiovascular risk and transplant candidacy, it is essential to determine whethera cardiac stress test has been performed to exclude significant coronary ischemia. Review pulmonary artery pressure trends obtained through the CardioMEMS system to evaluate for pulmonary hypertension burden. These data will be critical in defining his overall cardiac status and transplant risk profile. Dr. Jose Kim MD [facility] [address] [place] [address] [address], ADAM Smith [phone] Hypertension: Stage:II Classification: Primary and CKD related Blood pressure at target?: Blood pressure 151/83 Contributing factors: Medications: Losartan 50 mg daily, labetalol 300 mg, Catapres 0.2 mg 3 times a day, hydralazine 100mg 3 times daily and bumetanide 1 mg daily Nonpharmacological interventions: None Plan: For optimal blood pressure controlone could consider increasing bumetanide to 1 mg twice daily Atrial fibrillation: Stage: IV Underlying structural heart disease: Left atrial size: Moderately dilated Prior EP procedures: Watchman procedure Triggers: Hypertension Antiarrhythmic agents: None. Rate control: Heart rate 50 bpm on labetalol [id number]: 5 Anticoagulation: Watchman Treatment strategy: Pulmonary arterial hypertension: Likely group 2. Currently being monitored through the CardioMEMS system Atherosclerotic risk factor reduction: Residual LDL risk (LDL greater than 55 mg/dL for high risk and <70 mg/dL for others): LDL 57 mg/dL on simvastatin 20 mg daily Residual inflammatory risk (hsCRP> 2mg/L): Not ordered. Residual thrombotic risk: Clopidogrel 75 mg daily Residual triglyceride risk (TG> 200 and HDL < 40 mg/dL): HDL 33 and triglycerides 101 mg/dL Reviewed residual LP(a) risk (LP(a) > 50 mg /dL) : Not ordered. Diabetes: Hemoglobin A1c-6.7 Role of Icosapent ethyl - 3.6 mg/d (High risk DM patients): Not indicated. Role of PCSK 9 inhibitor: Not indicated. Thank you for allowing me to participate in the care of your patient. Please do not hesitate to contact me with questions. This note was produced using a voice recognition system. I have reviewed the notes but there may beunrecognized words as well as grammatical errors that I did not see. Sincerely, Alexandre Piña [facility], FCP ([place]), DPhil (Nelda), [facility] Advanced Heart Failure documented in this encounter Plan of Treatment Upcoming Encounters Date Type Department Care Team (Late st Contact Info) Description 10/17/2025 9:30 AM EST Office Visit [facility] [address] [place] [address] Senior Linux Engineer: Lissa Vidal DO [address] [facility] [place] [address] 06/13/2026 9:40 AM EDT Follow-Up [facility] [address] [place] [phone] Joey Duarte MD [address] [place] [address] 06/13/2026 10:00 AM EDT Social Work [facility] [address] [place] [phone] Hugh Holman Scheduled Orders Name Type Priority Associated Diagnoses Orde r Schedule ECG 12 lead ECG Routine Permanent atrial fibrillation Essential hypertension Pulmonary hypertension Coronary atherosclerosis of autologous vein bypass graft without angina Pre-transplant evaluation for end stage renal disease Ordered: 07/19/2025 documented as of this encounter Visit Diagnoses Diagnosis Permanent atrial fibrillation- Primary Atrial fibrillation Essential hypertension Unspecified essential hypertension Pulmonary hypertension Other chronic pulmonary heart diseases Coronary atherosclerosis of autologous vein bypass graft without angina Pre-transplant evaluation for end stage renal disease Other specified pre-operative examination documented in this encounter Care Teams Supervisor Sewer System Relationship Specialty Start Date End Date Ayaka Salgado [address] [place] [phone] PCP - General Internal Medicine 07/29/24 documented as of this encounter
--- NOTE | 2025-07-20 09:27 | A.OFFVIS_ITS ---
Vital Signs 07/20/25 09:28 Height 5 ft 7 in Weight 212 lb 11.937 oz BMI 33.3 BP 118/68 Blood Pressure Location Lt brachial Position Sitting Pulse 57 Pulse Source Pulse Oximeter Pulse Oximetry (%) 97 Oxygen Delivery Method Room Air Intake Visit Reasons: copd Intake Note: pt is here for follow up and states breathing is well. Type Bar And Segment Assembler Required: No Tools Developer: Tools Developer offered & declined Allergies aspirin Adverse Reaction (Unknown, Verified 07/20/25 09:40) nose bleeds metformin Adverse Reaction (Unknown, Verified 07/20/25 09:40) hypoglycemia warfarin (From Coumadin) Adverse Reaction (Unknown, Verified 07/20/25 09:40) Nose Bleed apixaban Adverse Reaction (Verified 07/20/25 09:40) Nose Bleed clopidogrel Adverse Reaction (Verified 07/20/25 09:40) Nose Bleed Medication List - Last Reconciled 07/20/25 by Seble Montejo MD acetaminophen (Tylenol) 650 mg PO Q6H PRN aspirin 81 mg PO DAILY blood-glucose meter (FreeStyle Lite Meter kit) As directed bumetanide 1 mg PO BID calcitriol 0.25 mcg PO DAILY cholecalciferol (vitamin D3) 25 mcg PO Q48H cinacalcet 30 mg PO DAILY clonidine HCl 0.2 mg PO TID clopidogrel 75 mg PO DAILY gabapentin 300 mg PO TID glimepiride 1 mg PO DAILY hydralazine 100 mg PO TID labetalol 300 mg PO BID lancets (FreeStyle Lancets) As directed lidocaine 5% 1 patch topical DAILY PRN losartan 50 mg PO DAILY melatonin 5 mg PO BEDTIME oxycodone-acetaminophen 5-325 mg 1 tab PO Q8H PRN simvastatin 20 mg PO BEDTIME sitagliptin phosphate (Januvia) 25 mg PO DAILY umeclidinium 62.5 mcg/actuation (Incruse Ellipta) 1 inh inhalation DAILY zolpidem 10 mg PO BEDTIME Do you need a note to return to daycare/school/sports/work: No HPI HPI copd: Details: That is 69 years old gentleman is here for his routine follow-up for COPD. His breathing has remained good and stable. He uses Incruse Ellipta 1 inhalation daily. He has not needed to use any Rescue inhaler Shortness of breath on exertion is much better as his hemoglobin has improved and stabilized. Luckily he has had no respiratory infection or acute exacerbation. HE CLAIMED THAT HE SLEEPS WELL WITHOUT ANY FREQUENT AWAKENING AND DOES NOT HAVE DAYTIME SLEEPINESS. [facility] Medical History Obesity (BMI 30-39.9) Elevated brain natriuretic peptide (BNP) level Lower extremity edema COPD (chronic obstructive pulmonary disease) LEONEL (obstructive sleep apnea) Dyspnea on minimal exertion COPD (chronic obstructive pulmonary disease) Smoker Left ventricular hypertrophy Smoking CKD (chronic kidney disease) Obesity Dyslipidemia Hypertension Diabetes mellitus Surgical History No pertinent past surgical history Family History Father No problems noted. Mother Diabetes Family/Other No problems noted. Social History Household Members: Significant Other Housing: Apartment Do you presently have visiting nurse or other home services: No Alcohol intake: current Alcohol intake frequency: a few times a month Patient Tobacco Use Status: Former Tobacco user e-Cigarette/Vaping Use: Never Used Second Hand Smoke Exposure: No Advance Directives Date on File: 08/23/22 service: No Current occupational status: disabled Review of Systems Const All systems reviewed & are unremarkable except as noted in HPI and below Eyes Reports no additional complaints ENT Reports no additional complaints Card Denies chest pain, Denies irregular heart rhythm, Denies leg edema and Reports dyspnea on exertion Resp Reports as per HPI and Reports dyspnea on exertion GI Reports no additional complaints Reports no additional complaints Musc Reports no additional complaints Skin/Breast Reports system reviewed and no additional complaints, except as documented Neuro Reports no additional complaints Psych Reports no additional complaints Physical Exam Vital Signs: Last Vital Signs Pulse 57 07/20/25 09:28 BP 118/68 07/20/25 09:28 Pulse Ox 97 07/20/25 09:28 Oxygen Delivery Method Room Air 07/20/25 09:28 BMI result Body Mass Index 33.3 Comfortable Neck supple no JVD. Lungs entry equal no rales. Heart S1-S2 heard no gallop or rub. Abdomen soft nontender. Neuro alert awake oriented. No asterixis. Extremities 2+edema. Const General: comfortable, no acute distress, alert and awake Orientation/consciousness: patient oriented x3 HEENT Head: Yes normal to inspection General nose exam: No nasal polyps present and No nasal discharge present Face and sinus: Yes sinuses nontender Mouth: oropharynx normal Throat: Yes posterior oropharynx normal Eyes General: appearance normal, both eyes and all related structures Neck Neck: Yes normal visual inspection, Yes no lymphadenopathy, Yes trachea midline and Yes no JVD Thyroid: Thyroid normal Chest Chest palpation & inspection: normal inspection of the chest, normal palpation of entire chest wall and no tenderness Resp Other: Percussion note is resonant. Breath sounds are decreased over both basilar areas, Respiratory excursions are diminished. No crepitations or wheezes are heard. Cardio Palpation: normal PMI Rate: regular rate Rhythm: regular rhythm Heart sounds: no gallops and no murmurs GI Palpation (GI): Soft to palpation, nontender, No hepatosplenomegaly present, no masses and Other GI palpation findings present (Abdomen is obese and protuberant) Auscultation: normal bowel sounds Back/Spine/Pelvis Thoracic/Lumbar Spine: thoracic and lumbar spine normal to inspection and thoraco-lumbar ROM limited Skin General skin exam: no rashes or lesions noted Neuro General: patient oriented x3 and no focal motor deficits Cranial nerves: Yes CN's II-XII intact bilaterally Extrem General: Yes normal to inspection, Yes no clubbing, cyanosis or edema and Yes no calf tenderness Psych Appearance: grossly normal and well kempt Speech and movement: Normal speech and movement present Assessment & Plan Assessment & Plan (1) COPD (chronic obstructive pulmonary disease): Comment: Patient does have moderately severe obstructive airway disorder, no evidence of positive response to bronchodilator therapy. Remains stable and does not need to use the rescue inhaler. Code(s): J44.9 - Chronic obstructive pulmonary disease, unspecified Category: Medical Plan: Continue to use Incruse Ellipta 1 inhalation daily. (2) LEONEL (obstructive sleep apnea): Comment: IS A KNOWN CASE OF OBSTRUCTIVE SLEEP APNEA, MILD. WAS NOT BEEN ABLE TO USE CPAP. HE HAS TRIED TO TREAT HIS SLEEP APNEA WITH POSITION THERAPY, AND TRIES TO SLEEP IN LATERAL POSITION. HE CLAIMS THAT HE SLEEPS WELL AND DOES NOT HAVE MUCH SNORING OR FREQUENT AWAKENINGS. Code(s): G47.33 - Obstructive sleep apnea (adult) (pediatric) Category: Medical Plan: Again reinforced that he should try to sleep in lateral position Coding Level of Care Code Est Pt Level 3 (77958) Diagnoses COPD (chronic obstructive pulmonary disease) J44.9 LEONEL (obstructive sleep apnea) G47.33
[2025-07-20 09:28] VITALS: BP 118/68; PULSE 57; O2SAT 97; BMI 33.3
--- OUTSIDE RECORDS SUMMARY | 2025-07-20 09:56 | XMS_ITS | Clinical Summary ---
Author Organization [employer] Address [address] [place] [address] 7[address] [place] [address] Care Team Providers Care Pipe And Boiler Covers Supervisor Name Role Phone Ayaka Salgado MD Primary Care Provider [phone] Allergies Active Allergy Reactions Criticality Noted Date [...] day at bedtime as needed 021 Active polyethylene glycol, PEG, 3350 (MiraLax) 17 GM/SCOOP powder take (17G) by oral route every day mixed with 8 oz. water, juice, soda, coffee or tea 020 Active simethicone (Mylicon,Gas-X) 125 MG capsule take 1 tablet by oral route 4 times every day Active Blood Pressure kit Use daily Active Misc. Devices (Pulse Oximeter) misc USE DIRECTED Active amLODIPine (Norvasc) 5 MG tabletIndications :Congestive heart failure, unspecified HF chronicity, unspecified heart failure type (HCC) Take 1 tablet (5 mg) by mouth [...] NEEDED FOR ITCHING 30 capsule 023 Active albuterol (2.5 MG/3ML) 0.083% nebulizer solutionIndicatio ns:Simple chronic bronchitis (CMS/HCC) ([facility]) Take 3 mL (2.5 mg) by nebulization every 4 (four) hours if needed for wheezing. 75 mL 3 024 Active budesonide-formot radha (Symbicort) 160-4.5 MCG/ACT inhaler Inhale 2 puffs in the morning and at bedtime. 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) USE TO TEST BLOOD SUGAR TWICE A DAY 100 each 3 Active Blood Glucose Monitoring Suppl ([employer]my Verio) w/Device kitIndications:Ty pe 2 diabetes mellitus with nephropathy (HCC) USE TO TEST BLOOD SUGAR TWICE A DAY 1 kit Active [email or web address] Delica Lancets 33G miscIndications:T ype 2 diabetes mellitus with nephropathy (HCC) USE TO TEST BLOOD SUGAR TWICE A [...] tabletIndications :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 Do not crush, chew, or split. 120 tablet 11 025 2025 Active simvastatin (Zocor) 20 MG tablet Take 1 tablet (20 mg) by mouth at bedtime. 90 tablet 3 Active bumetanide (Bumex) 1 MG tabletIndications :Congestive heart failure, unspecified HF chronicity, unspecified heart failure type (HCC) TAKE 1 TABLET(1 MG) BY MOUTH TWICE DAILY 180 tablet 3 Active Umeclidinium [place] (Incruse Ellipta) 62.5 MCG/ACT aerosol powderIndications :Chronic obstructive pulmonary disease, unspecified COPD type (CMS/HCC) ([facility]) Inhale 1 Act (62.5 mcg) Once per day AND 1 Act (62.5 mcg) Once per day. 30 each Active labetalol (Normodyne) 300 MG tabletIndications :Essential hypertension Take 1 tablet (300 mg) by mouth 2 times daily. 60 tablet 025 2025 Active OneTouch Verio test stripIndications: 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[facility]) USE TO TEST BLOOD SUGAR TWICE A DAY 100 strip Active Alcohol Swabs (Alcohol Prep) 70 % pads APPLY 1 PAD TO SKIN TWICE DAILY DIRECTED 200 each Active hydrALAZINE (Apresoline) 100 MG tablet TAKE 1 TABLET BY MOUTH THREE TIMES DAILY WITH FOOD 270 tablet 3 Active naloxone (Narcan) 4 mg/0.1 mL nasal spray Administer 1 spray (4 mg) into affected nostril(s) if needed for opioid reversal. 2 each Active guaiFENesin (Mucinex) 600 MG 12 hr tabletIndications :Simple chronic bronchitis (CMS/HCC) ([facility]) Take 2 tablets (1,200 mg) by mouth 2 times daily. 20 tablet Active melatonin 5 MG tabletIndications :Primary insomnia 1 tab of 5 mg at bedtime 90 tablet 1 Active zolpidem (Ambien) 10 MG tabletIndications :Primary insomnia TAKE 1 TABLET BY MOUTH AT BEDTIME NEEDED FOR SLEEP 30 tablet Active oxyCODONE-acetami nophen (Percocet) 5-325 MG tabletIndications :Arthropathy Take 1 tablet by mouth every 6 (six) hours if needed for severe pain. 42 tablet 10/30/2 025 Active ammonium lactate (Lac-Hydrin Twelve) 12 % lotionIndications :Chronic pruritus Apply topically if needed for dry skin. 225 g 1 024 2024 melatonin 5 MG tabletIndications :Primary insomnia 1 tab of 5 mg at bedtime 90 tablet 1 025 2024 Discontinued(R eorder (will not trigger [...] Diagnosed Date Normocytic anemia 02/22/2025 Atrial fibrillation ([facility]) 02/22/2025 Overview (02/22/2025): Status post Watchman device at [facility]. 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 analgesic 11/13 Pruritus 07/12/2024 Congestive heart failure 09/24/2022 Acute renal failure syndrome 07/18/2021 Coronary arteriosclerosis 07/18/2021 Diabetic nephropathy associa sergio with type 2 diabetes mellitus 07/18/2021 Hypertensive renal disease 07/18/2021 Chronic obstructive lung disease 05/22/2018 Edema of foot 02/24/2018 CKD (chronic kidney disease), stage III (CMS/HCC ) 02/14/2017 Type 2 diabetes mellitus with nephropathy 2014 Acute bronchitis 11/14/2011 Arthropathy 11/14/2011 Essential hypertension 11/14/2011 Pure hypercholesterolemia 06/06/2011 Hyperparathyroidism 04/29/2011 Resolved Problems Problem Noted Date Diagnosed Date Resolved Date COVID-19 09/13/2022 09/24/2022 Acute upper respiratory infection 11/05/2011 09/24/2022 Encounters Date Type Department Care Team Description 07/14/2025 Refill [facility]EDS [address] [place] [address] Ayaka Salgado MD Arthropathy 06/29/2025 Refill [facility] [address] [place] [address] Ayaka Salgado MD Arthropathy 06/24/2025 Refill [facility] MED[facility]INE [address] [place] [address] Ayaka Salgado MD Primary insomnia 06/22/2025 Refill [facility] [address] [place] [address] Ayaka Salgado MD Chronic pruritus 06/14/2025 Orders Only [facility] [address] [place] [address] Ran Nguyễn MD 06/06/2025 Refill [facility] [address] [place] [address] Ayaka Salgado MD Arthropathy 05/31/2025 9:00 AM EDT Clinical Support [facility] [address] [place] [address] Alana Hook RN Back pain, unspecified back location, unspecified back pain laterality, unspecified chronicity 05/31/2025 Refill [facility] [address] [place] [address] Alana Hook RN Simple chronic bronchitis ([facility]/HCC) 05/31/2025 Travel 05/27/2025 Refill [facility] [address] [place] [address] Ayaka Salgado MD Primary insomnia 05/25/2025 Telephone [facility] [address] [place] [address] Ayaka Salgado MD CRITICAL LAB 05/20/2025 Refill [facility] [address] [place] [address] Ayaka Salgado MD 05/12/2025 Telephone [facility] [address] [place] [address] Ayaka Salgado MD Med Refill 05/12/2025 Refill [facility] [address] [place] [address] Ayaka Salgado MD Arthropathy 04/26/2025 Refill [facility] [address] [place] [address] Ayaka Salgado MD Primary insomnia 04/26/2025 Refill [facility] [address] [place] [address] Ayaka Salgado MD Arthropathy from Last 3 [...] 08/17/2025 9:00 AM EST Clinical Support [facility] [address] [place] [address] Alana Hook, RN [address] [place] [address] Health Maintenance Due Date Last Done Comments CT Colonography 1957 Colonoscopy 1957 Colorectal Cancer Screening 1957 FIT DNA/Cologuard 1957 FIT 1957 FOBT 1957 Sigmoidoscopy 1957 Hepatitis C Screening 12/09/1975 Hepatitis A Vaccines (1 of 2 - Risk 2-dose series) 1976 Pneumococcal Vaccine: 50+ Years (1 of 2 - PCV) 1976 DTaP/Tdap/Td Vaccines (1 - Tdap) 09/16/2005 09/15/2005 Zoster Vaccines (1 of 2) 12/09/2007 Hepatitis B Vaccines (1 of 3 - Risk 3-dose series) 2017 RSV Patients and Patients Aged 60 years or older (1 - Risk 60-74 years 1-dose series) 2017 Diabetes: Foot Exam 10/01/2024 10/01/2023, 10/01/2023, 10/01/2023, Additional history exists Lipid Panel 11/12/2024 11/12/2023 COVID-19 Vaccine ( season) 2025 08/03/2021, 11/03/2020, 10/06/2020 Influenza Vaccine (#1) 2025 Depression Monitoring 05/25/2025 11/22/2024, 025 Diabetes: Hemoglobin A1C 05/25/2025 025, 07/12/2024, 10/01/2023, Additional history exists Alcohol/Substance Use Screening 11/22/2025 11/22/2024 SDOH Screening 11/22/2025 11/22/2024 Tobacco Screening 02/22/2026 02/22/2025 Eye Exam 05/23/2026 05/04/2024, 05/29/2023 HIB Vaccines Aged Out No longer eligi [...] Procedure Name Priority Date/Time Associated Diagnosis Comments US LIVER ELASTOGRAPHY - FIBROSCAN Routine 06/13/2025 9:33 AM EDT POCT VESNA-14 URINE DRUG SCREEN Routine 05/31/2025 [...] Recently Relevant to Health Maintenance Results * US LIVER ELASTOGRAPHY - FIBROSCAN (06/13/2025 9:33 AM EDT) Anatomical Region Laterality Modality Ultrasound us Historical Provider MD JC US PROCEDURES Final R esult * POCT VESNA-14 Urine Drug Screen (05/31/2025 [...] AM EDT . Internal Pass Control Lot# [id number] Exp: 07-15-26 us Ayaka Salgado MD POINT OF CARE TEST ENTER/ED IT ORDERABLES Final Result * POCT HGB A1C (11/22/2024 11:52 AM EDT) Hemoglobin A1C 5.9 4.0 - 6.0 % QC Media Lot # [id number] Lot# Expiration Date Blood 11/22/2024 11:5 2 AM EDT Ayaka Salgado MD POINT OF CARE TEST ENTER/ED IT ORDERABLES Final Result * Diabetes Eye Exam (05/04/2024 12:18 PM EDT) Historical Provider HEALTH MAINTENANCE Final Result * (ABNORMAL) Lipid Panel, Standard (11/12/2023 9:08 AM EST) Triglycerides 55 <150 mg/dL [facility] Comment:Desirable Triglyceri de: less than 150 mg/dLBorderline High Triglyceride 150-199 mg/dLHigh Triglyceride: 200-499 mg/dLVery High Triglyceride: greater than or equal to 5OO mg/dL Cholesterol 101 <200 mg/dL [facility] Comment:Desirable Cholestero l: less than 200 mg/dLBorderline High Cholesterol: 200-239 mg/dLHigh Cholesterol: greater than 239 mg/dL LDL Cholesterol Calculated 57 <100 mg/dL [facility] Comment:Desirable LDL: less than 100 mg/dLNear Optimal/Above Optimal LDL: 110- 129 mg/dLBorderline High LDL: 130-159 mg/dLHigh LDL: 160-189 mg/dLVery High LDL: greater than or equal to 190 mg/dL HDL Cholesterol 33(L) >40 mg/dL [facility] Comment:Desirable HDL: great er than 40 mg/dL Note: This HDL assay may give artificially low results in patients with liver disease. Blood Venous blood specimen / Unknown 11/12/2023 9:08 AM EST 11/12/2023 2:41 PM EST us Ayaka Salgado MD LAB BLOOD ORDERABLES Final Result Performing Organization Address City/State/[facility] Co de Phone Number [facility] [address] [place] [phone] from Last 3 Months or Most Recently Relevant to Health Maintenance Insurance [facility] MEDICARE ADVANTAGE O Care Teams Pipe And Boiler Covers Supervisor Relationship Specialty Start Date End Date Ayaka Salgado MD [address] [place] [address] [place] [address] PCP - General Internal Medicine 09/15/18
--- OUTSIDE RECORDS SUMMARY | 2025-07-20 09:56 | XMS_ITS | Encounter Summary ---
Author Organization [employer] Address [address] [facility] 7t [place] [address] Care Team Providers Care Auto Repair Technician Name Role Phone Ayaka Salgado MD Primary Care Provider [phone] Encounter Details Date Type Department Care Team ([facility] st Contact Info) Description 09/22/2023 Orders Only [facility]EDS [address] [place] [address] Ayaka Salgado MD 505 [place], [place] [phone] Simple chronic bronchitis (CMS/HCC) (Primary Dx) Social [...] 9:00 AM EST Clinical Support [facility] [address] [place] [address] Alana Hook, RACHELLE [address] [place] [address] documented as of this encounter Visit Diagnoses Diagnosis Simple chronic bronchitis (CMS/HCC) (HCC)- Primary Simple chronic bronchitis documented in this encounter Additional Health Concerns Assessment Noted Time PHQ-9 Depression Total Score: 7 08/29/20 22 10:26 AM EST documented as of this encounter Care Teams Auto Repair Technician Relationship Specialty Start Date End Date Ayaka Salgado MD [address] [place] [address] PCP - General Internal Medicine 09/15/18 documented as of this encounter
--- OUTSIDE RECORDS SUMMARY | 2025-07-20 09:56 | XMS_ITS | Encounter Summary ---
Author Organization [employer] Address [address] [facility] 7 [place] [address] Care Team Providers Care Sociocultural Anthropology Professor Name Role Phone Ayaka Salgado MD Primary Care Provider [phone] Reason for Visit * Reason Onset Date Comments Med Refill 12/01/2023 Encounter Details Date Type Department Care Team ([facility] st Contact Info) Description 12/01/2023 Telephone [facility] [address] [place], [place] [phone] Ayaka Salgado MD 505 [facility] [place] [address] Med Refill Social History Tobacco Use Types [...] 10 MG tablet To be sent to: [facility][id number] - [place] - [address] [facility] documented in this encounter Plan of Treatment Upcoming Encounters Date Type Department Care Team ([facility] st Contact Info) Description 08/17/2025 9:00 AM EST Clinical Support [facility] MED & PEDS [address] [place] [address] Alana Hook, RACHELLE 505 [facility] [place] [address] documented as of this encounter Visit Diagnoses Not on filedocumented in this encounter Additional Health Concerns Assessment Noted Time PHQ-9 Depression Total Score: 7 08/29/20 22 10:26 AM EST documented as of this encounter Care Teams Sociocultural Anthropology Professor Relationship Specialty Start Date End Date Ayaka Salgado MD 505 [place] [address] PCP - General Internal Medicine 09/15/18 documented as of this encounter
--- OUTSIDE RECORDS SUMMARY | 2025-07-20 09:56 | XMS_ITS | Encounter Summary ---
Author Organization [employer] Address [address] [facility] 7 [place] [address] Care Team Providers Care Hand Turner Name Role Phone Ayaka Salgado MD Primary Care Provider [phone] Reason for Visit * Reason Onset Date Comments Med Refill 09/06/2024 Encounter Details Date Type Department Care Team ([facility] st Contact Info) Description 09/06/2024 Telephone [facility] MED[facility] [address] [place], [place] [phone] Ayaka Salgado MD 505 [facility] [place] [address] Med Refill Social History Tobacco Use Types [...] 8:56 AM EST Medication was sent to [facility][id number] on 08/09/24 with 3 refills. * Telephone Encounter - Cleopatra Oritz - 09/06/2024 8:53 AM EST TC from pt requesting medication refill. Medications needing refill : labetalol (Normodyne) 200 MG tablet To be sent to: [facility] #[id number] - [place] - [address] [facility] [address] documented in this encounter Plan of Treatment Upcoming Encounters Date Type Department Care Team ([facility] st Contact Info) Description 08/17/2025 9:00 AM EST Clinical Support [facility] 505 [facility] [place] [address] Alana Hook, RN 505 [facility] [place] [address] documented as of this encounter Visit Diagnoses Not on filedocumented in this encounter Additional Health Concerns Assessment Noted Time PHQ-9 Depression Total Score: 7 08/29/20 22 10:26 AM EST documented as of this encounter Care Teams Hand Turner Relationship Specialty Start Date End Date Ayaka Salgado MD [address] [place] [address] PCP - General Internal Medicine 09/15/18 documented as of this encounter
--- OUTSIDE RECORDS SUMMARY | 2025-07-20 09:56 | XMS_ITS | Encounter Summary ---
Author Organization [facility] [address] [facility] [address] [place] [address] Phone Care Team Providers Care Vegetable Farmworker Name Role Phone Jayme Salgado MD Primary Care Provider [phone] Reason for Visit * Reason Comments Med Refill Encounter Details Date Type Department Care Team (Late st Contact Info) Description 04/28/2023 Refill [facility] [address] [place] [place] [phone] Mumtaz Childress MD [address] [facility] [address] [place] [address] Type 2 diabetes mellitus with [...] (HCC) documented in this encounter Care Teams Vegetable Farmworker Relationship Specialty Start Date End Date Jayme Salgado MD [address] [place] [address] PCP - General 09/25/20 documented as of this encounter
--- OUTSIDE RECORDS SUMMARY | 2025-07-20 09:56 | XMS_ITS | Encounter Summary ---
Author Organization [facility] Address [address] [place] [address] Care Team Providers Care Brake Repairer Name Role Phone Ayaka Salgado Primary Care Provider Encounter Details Date Type Department Care Team (Late st Contact Info) Description 07/29/2024 Orders Only [facility] Xray [address] [place] [address] Waqas Garnett MD [address] [place] [address] Social History Tobacco Use Types Packs/Day Years [...] [facility] [address] [place] [address] Agricultural Researcher: Lissa Vidal DO [address] [place] [address] [place] [address] 06/13/2026 9:40 AM EDT Follow-Up [facility] [address] [place] [address] Joey Duarte MD [address] [place] [address] 06/13/2026 10:00 AM EDT Social Work [facility] [address] [place] [address] Hugh Holman documented as of this encounter Visit Diagnoses Not on filedocumented in this encounter Care Teams Brake Repairer Relationship Specialty Start Date End Date Ayaka Salgado [address] [place] [address] PCP - General Internal Medicine 07/29/24 documented as of this encounter
--- OUTSIDE RECORDS SUMMARY | 2025-07-20 09:56 | XMS_ITS ---
Author Organization [facility] Address [address] [place] [address] Care Team Providers Care Automatic Trimming Sewer Name Role Phone Ayaka Salgado Primary Care Provider [phone] Transplant Episode Kidney Candidate [facility] ([place], [place]) - [facility] waitlisted on 06/16/2025 Marked as Inactive on 06/16/2025 Reason: Candidate Workup Incomplete Kidney CoordinatorShima Springer RN Email: N/A Scores Score Value Updated Exceptions/Reas ons CPRA 0 06/20/2025 EPTS (Calc) 46 07/20/2025 [place] Organ Diagnosis Organ Primary Contributory Kidney Diabetes Mellitus - Type II Care Team Name Role Phone Fax Email Shima Springer RN Kidney Coordinator [phone] N/A Ross Baldwin Referring Physician [phone] N/A Events Pre-Transplant Referred: 07/19/2024 Evaluation began: 07/29/2024 Committee: 06/15/2025 Center waitlisted: 06/16/2025 Appointments (06/19/2025 - 08/19/2025) When With Visit Type Description 06/28/2025 Transplant - Maddy Holman Follow Up 06/28/2025 Transplant - Olman Duarte Follow Up Pre -transplant evaluation for kidney transplant (Primary Dx); Dyspnea, unspecified type; Stage 4 chronic kidney disease
--- OUTSIDE RECORDS SUMMARY | 2025-07-20 09:56 | XMS_ITS | Encounter Summary ---
Author Organization [employer] Address [address] [facility] 7t [place] [address] Care Team Providers Care Rhit Name Role Phone Ayaka Salgado MD Primary Care Provider [phone] Encounter Details Date Type Department Care Team ([facility] st Contact Info) Description 08/20/2024 Orders Only [facility] MED & PEDS [address] [place] [address] Ayaka Salgado MD 505 [place] [address] Social History Tobacco Use Types Packs/Day Years [...] ([facility] st Contact Info) Description 08/17/2025 9:00 AM EST Clinical Support [facility] MED [facility]EDS [address] [place] [address] Alana Hook, RACHELLE [address] [place] [address] documented as of this encounter Visit Diagnoses Not on filedocumented in this encounter Additional Health Concerns Assessment Noted Time PHQ-9 Depression Total Score: 7 08/29/20 22 10:26 AM EST documented as of this encounter Care Teams Rhit Relationship Specialty Start Date End Date Ayaka Salgado MD [address] [place] [address] PCP - General Internal Medicine 09/15/18 documented as of this encounter
--- OUTSIDE RECORDS SUMMARY | 2025-07-20 09:56 | XMS_ITS | Encounter Summary ---
Author Organization [employer] Address [address] [facility] 7 [place] [address] Care Team Providers Care Appeals Reviewer Veteran Name Role Phone Ayaka Salgado MD Primary Care Provider [phone] Reason for Visit * Reason Onset Date Comments Med Refill 08/09/2024 Encounter Details Date Type Department Care Team ([facility] st Contact Info) Description 08/09/2024 Telephone [facility] MEDICINE [address] [place], [place] [phone] Ayaka Salgado MD 505 [facility] [place] [address] Med Refill Social History Tobacco Use Types [...] 5-325 MG tablet To be sent to: [facility] #[id number] documented in this encounter Plan of Treatment Upcoming Encounters Date Type Department Care Team ([facility] st Contact Info) Description 08/17/2025 9:00 AM EST Clinical Support [facility] MED [facility]EDS [address] [place] [address] Alana Hook RN 505 [place] [address] documented as of this encounter Visit Diagnoses Not on filedocumented in this encounter Additional Health Concerns Assessment Noted Time PHQ-9 Depression Total Score: 7 08/29/20 22 10:26 AM EST documented as of this encounter Care Teams Appeals Reviewer Veteran Relationship Specialty Start Date End Date Ayaka Salgado MD [address] [place] [address] PCP - General Internal Medicine 09/15/18 documented as of this encounter
--- OUTSIDE RECORDS SUMMARY | 2025-07-20 09:56 | XMS_ITS | Clinical Summary ---
Author Organization [facility] Address [address] [facility] [address] [place] [place] [phone] Phone Care Team Providers Care Phys Assistant Name Role Phone Jayme Salgado MD Primary Care Provider [phone] Allergies Active Allergy Reactions Criticality Noted Date [...] Date Last Done Comments Pneumococcal Vaccine: 50+ Ye ars (1 of 2 - PCV) 1976 Colorectal Cancer Screening: Annual FOBT 2006 Colorectal Cancer Screening: Colonoscopy 2006 Colorectal Cancer Screening: Sigmoidoscopy 2006 Hepatitis B Vaccine (1 of 3 - Risk 3-dose series) 2017 Diabetes: Ophthalmology Exam 10/16/2020 Diabetes: Pedal Pulse Checked 10/16/2020 Diabetes: Sensory Foot Exam 10/16/2020 Diabetes: Visual Foot Exam 10/16/2020 Diabetes: Hemoglobin A1C 02/22/2025 025, 07/29/2024, 02/24/2023, Additional history exists Influenza Vaccine (#1) 2025 Insurance UHC Medicare [facility] Medicare Care Teams Phys Assistant Relationship Specialty Start Date End Date Jayme Salgado MD [address] [place], [place] [address]Dee MD PCP - General 09/25/20
--- OUTSIDE RECORDS SUMMARY | 2025-07-20 09:56 | XMS_ITS | Encounter Summary ---
Author Organization [employer] Address [address] [place] [address] 7 [place] [address] Care Team Providers Care Playground Director Name Role Phone Ayaka Salgado MD Primary Care Provider [phone] Reason for Visit * Reason Comments Med Refill Encounter Details Date Type Department Care Team ([facility] Contact Info) Description 07/28/2023 Refill [facility] CHC MED & PEDS [address] [place] [address] Ayaka Salgado MD [address] [place] [address] Social History Tobacco Use Types Packs/Day Years [...] - [facility] [address] [place] [address] Alana Hook, RACHELLE 505 [place] [address] documented as of this encounter Visit Diagnoses Not on filedocumented in this encounter Additional Health Concerns Assessment Noted Time PHQ-9 Depression Total Score: 7 08/29/20 22 10:26 AM EST documented as of this encounter Care Teams Playground Director Relationship Specialty Start Date End Date Ayaka Salgado MD [address] [place] [address] PCP - General Internal Medicine 09/15/18 documented as of this encounter
--- OUTSIDE RECORDS SUMMARY | 2025-07-20 09:56 | XMS_ITS | Clinical Summary ---
Author Organization [facility] Address [address] [place] [address] Care Team Providers Care Raw Scales Operator Name Role Phone Ayaka Salgado Primary Care Provider [phone] Allergies Active Allergy Reactions Criticality Noted Date Comments Apixaban Nosebleed 07/22/2024 Aspirin Nosebleed 07/22/2024 Clopidogrel Nosebleed 07/22/2024 Heparin GI bleeding 06/13/2025 Metformin Sugar, low 07/22/2024 Trazodone Unknown 06/13/2025 Pt state does not work. Warfarin Nosebleed 07/22/2024 Medications albuterol 2.5 mg/3 [...] By Mouth 3 Times Daily 4 Active glimepiride (AMARYL) 1 mg tablet 4 Active hydrALAZINE (APRESOLINE) 100 mg tablet SMARTSI Tablet(s) By Mouth 3 Times Daily 4 Active oxyCODONE-aceta minophen (PERCOCET) 5-325 [...] by mouth 2 times daily. 4 Active Vitamin D3 25 mcg (1,000 unit) [...] puffs by mouth once a day. Active labetaloL (NORMODYNE) 300 mg tablet 5 Active gabapentin (NEURONTIN) 300 mg capsule Take 300 mg by mouth 3 times daily. 4 08/17/20 25 Active Januvia 25 mg tablet TAKE 1 TABLET(25 MG) BY MOUTH IN THE MORNING 4 Active losartan (COZAAR) 50 mg tablet SMARTSI Tablet(s) By Mouth Daily 5 Active Incruse Ellipta 62.5 mcg/actuation blister with device Inhale by mouth. 5 Active clopidogreL (PLAVIX) 75 mg tablet SMARTSI Tablet(s) By Mouth Daily 5 Active aspirin 81 mg EC tablet SMARTSI Tablet(s) By Mouth Daily Active melatonin 5 mg tablet 1 tab of 5 mg at bedtime 5 Active guaiFENesin ER (MUCINEX) 600 mg tablet Take 1,200 mg by mouth 2 times daily. 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; Pre-transplant evaluation for end stage renal disease 07/19/2025 11:00 AM EST - 07/19/2025 11:59 PM EST Hospital Encounter [facility] Pulmonary Function Lab [address] [place] [address] Dyspnea, unspecified type Discharge Disposition: Home or Self Care () 06/28/2025 10:40 AM EDT Follow-Up [facility] Renal Transplant [address] [place] [address] Joey Duarte MD Pre-transplant evaluation for kidney transplant (Primary Dx); Dyspnea, unspecified type; Stage 4 chronic kidney disease 06/28/2025 Telephone [facility] 4th floor Cardiology Medicine [address] [place] [address] Restaurant Host/Hostess: Ezio Villagran MA PAC General Info 06/21/2025 Telephone [facility] Transplant Department [address] [place] [address] Shima Springer RN 06/16/2025 Documentation [facility] Transplant Department [address] [place] [address] Sheryl Moore, RACHELLE ABO Dual Validation 06/15/2025 Documentation [facility] Transplant Department [address] [place] [address] Shima Springer RN ABO Dual Validation 06/15/2025 Telephone [facility] Transplant Department [address] [place] [address] Shima Springer, gas tester - Kidney Txp 06/13/2025 10:30 AM EDT Procedure visit [facility] Gastroenterology [facility] [address] [place] [address] Restaurant Host/Hostess: Kaylyn Gilliam RN Stage 4 chronic kidney disease (HCC) 06/13/2025 10:30 AM EDT Follow-Up [facility] Liver Transplant Services [address] [place] [address] Gary Reese MD Hepatomegaly (Primary Dx); Hepatic steatosis; Abnormal finding on imaging of liver 06/13/2025 Orders Only [facility] [address] [place] [address] Restaurant Host/Hostess: Kaylyn Gilliam RN Stage 4 chronic kidney disease (HCC) (Primary Dx) from Last 3 Months Social History Tobacco Use Types Packs/Day Years Used Date Smoking Tobacco: Former Cigarettes Smokeless Tobacco: Never Tobacco Cessation:Counseling Given: Not Answered Comments:Quit 08/22/2022 [...] Pulse 50 07/19/2025 12:06 PM EST Temperature 36.6 C (97.8 F) 06/28/2025 9:55 AM EDT Respiratory Rate 18 07/19/2025 12:06 PM EST Oxygen Saturation 98% 07/19/2025 12:06 PM EST Inhaled Oxygen Concentration - - Weight 98.2 kg (216 lb 7.9 oz) 07/19/2025 12:06 PM EST Height 170.2 cm (5' 7 ) 07/19/2025 12:06 PM EST Body Mass Index 33.91 07/19/2025 12:06 PM EST Plan of Treatment Upcoming Encounters Date Type Department Care Team (Late st Contact Info) Description 10/17/2025 9:30 AM EST Office Visit [facility] [address] [place] [address] Restaurant Host/Hostess: Lissa Vidal DO 55 [facility] [place] [address] 06/13/2026 9:40 AM EDT Follow-Up [facility] Renal Transplant [address] [place] [address] Joey Duarte MD 55 [place] [address] 06/13/2026 10:00 AM EDT Social Work [facility] Renal Transplant [address] [place] [address] Hugh Holman Health Maintenance Due Date Last Done Comments [...] exists Hemoglobin 07/29/2025 07/29/2024 Phosphorus 07/29/2025 07/29/2024 Fall Risk Screening 07/19/2026 07/19/2025 CKD: Referral to Nutrition Completed 07/29/2024 Hepatitis C Screening Completed 07/29/2024 CKD: Referral to Nephrology Completed 06/28/2025 Hepatitis B Vaccines Aged Out No long er eligible based on patient's age to complete this topic Procedures * Due to [place] [employer] law, this organization might not be sharing negative HIV tests. Procedure Name Priority Date/Time Associated Diagnosis Comments TRANSIENT ELASTOGRAPHY Routine 06/13/2025 9:23 AM EDT Stage 4 chronic kidney disease (HCC) HEPATITIS C ANTIBODY W/REFLEX TO HCV [...] to Health Maintenance Results * Due to [place] [employer] law, this organization might not be sharing negative HIV tests. * (ABNORMAL) Transient Elastography (Fibroscan) (06/13/2025 9:23 AM EDT) CAP 278(H) 90 - 248 dB/m FIBROSCAN Comment:S0 < 5% fat depositi on; S1 5-33% fat deposition; S2 34-66% fat deposition; S3 >66% fat deposition; Stiffness 5.1 1.47 - 7.0 kPa FIBROSCAN Comment:F0 No fibrosis; F1 m ild fibrosis; F2 moderate fibrosis; F3 severe fibrosis; F4 cirrhosis; CAP IQR 11 FIBROSCAN E IQR 0.6 FIBROSCAN IQR/Median Ratio 12 FIBROSCAN Account Administrator Name Terrence BUSH FIBROSCAN Probe Size XL FIBROSCAN 06/13/2025 9:23 AM EDT Impressions FIBROSCAN - 06/13/2025 4:51 PM EDT FIBROSCAN REPORT Lewis Snyder is a 69 y.o. male referred for a FIBROSCAN Referring Physician: Gary Reese MD [address] [place] [address] PRIMARY CARE PROVIDER: Ayaka Salgado Procedure Done By: Kaylyn Ocampo RN Indication: Hepatomegaly in the setting of undergoing kidney transplant valuation. He does have some alcohol use and also likely has metabolic dysfunction. I put down the indication as multiple etiology Results: The Median score was 5.1 kPa with a IQR of 12 % which correlates to F0, The CAP score was 278 dB/m which correlates to steatosis grade of S2 Gary Reese MD us Gary Reese MD GI PROCEDURE ORDERABLES Final Result FIBROSCAN * (ABNORMAL) CBC Auto Differential (07/29/2024 12:57 PM EST) WBC 6.0 3.8 - 10.8 10*3/uL 07/29/2024 1:35 PM EST [facility] RBC 3.69(L) 4.20 - 5.80 10*6/uL 07/29/2024 1:35 PM EST [facility] [employer] [facility] Hemoglobin 9.7(L) 13.2 - 17.1 g/dL 07/29/2024 1:35 PM EST [facility] Hematocrit 31.5(L) 38.5 - [...] - 3.90 10*3/uL 07/29/2024 1:35 PM EST [employer] - [facility] Monocyte # 0.40 0.20 - 0.95 10*3/uL 07/29/2024 1:35 PM EST [facility] Eosinophil # 0.40 0.02 - 0.50 10*3/uL 07/29/2024 1:35 PM EST [employer] [facility] Basophil # <0.03 0.00 - 0.20 10*3/uL 07/29/2024 1:35 PM EST [employer] [facility] [employer] nRBC % 0.0 /100 WBCs 07/29/2024 1:35 PM EST [employer] [facility] [employer] [facility] nRBC # <0.01 <0.01 10*3/uL 07/29/2024 1:35 PM EST [employer] [facility]OLOG[facility] LABORATORY Blood Structure of peripheral vein / Unknown Venipuncture / Unknown 07/29/2024 12:57 PM EST 07/29/2024 1:29 PM EST Joey Duarte MD LAB BLOOD ORDERABLES María howard Result [email or web address] [address] [place] [address], * Hepatitis C Antibody w/Reflex to PCR (07/29/2024 12:57 PM EST) Hepatitis C Antibody NON-REACT [place] NON-REACT [place] 07/30/2024 3:03 AM EST [employer] [facility] Comment: HCV antibody was non-reactive. There is no laboratory evidence of HCV infection. In most cases, no further action is required. However, if recent HCV exposure is suspected, a test for HCV RNA (test code 34623) is suggested. For additional information please refer to http://education.SwipeStation/faq/KAQ10d1 (This link is being provided for informational/ educational purposes only.) Blood Structure of peripheral vein / Unknown Venipuncture / Unknown 07/29/2024 12:57 PM EST 07/29/2024 1:32 PM EST Narrative [facility] - 07/30/2024 3:03 AM EST [facility] Received Date: Joey Duarte MD LAB BLOOD ORDERABLES María l Result [facility] [address] [facility] 3rd Floor, [place] [address], [employer] [facility] [address] [facility] [address], [place] [address], * Phosphorus (07/29/2024 12:57 PM EST) Pathologist [facility] Phosphorus 4.5 2.5 - 4.5 mg/dL 07/29/2024 2:00 PM EST [employer] CL[facility]ICAL PATHOLOGY LABORATORY Blood Structure of peripheral vein / Unknown Venipuncture / Unknown 07/29/2024 12:57 PM EST 07/29/2024 1:29 PM EST Joey Duarte MD LAB BLOOD ORDERABLES María l Result [employer] CLINICAL PATHOLOGY LABORATORY [address] [place] [address], * (ABNORMAL) Hemoglobin A1c (07/29/2024 12:57 PM EST) Hemoglobin A1C 6.7(H) <5.7 % of total Hgb 07/30/2024 1:59 AM EST [employer] [facility] Comment: For someone without known diabetes, a [...] (MG/DL) 146 mg/dL 07/30/2024 1:59 AM EST [employer] eAG (MMOL/L) 8.1 mmol/L 07/30/2024 1:59 AM EST [employer] Blood Structure of peripheral vein / Unknown Venipuncture / Unknown 07/29/2024 12:57 PM EST 07/29/2024 1:32 PM EST Narrative [facility] - 07/30/2024 1:59 AM EST [facility] Received Date: Joey Duarte MD LAB BLOOD ORDERABLES María howard Result ROEL [place] [address] [facility] [address]rd [address], [place] [address], [employer]ST [employer] [facility] [address] [facility] 3rd [address], [place] [address], from Last 3 Months or Most Recently Relevant to Health Maintenance Insurance [facility] [place] [id number] Advance Directives Documents on File Type Date Recorded Patient Pathology Supervisor Expl [facility] Care Proxy 08/05/2024 4:14 PM 07-16 Care Teams Raw Scales Operator Relationship Specialty Start Date End Date Ayaka Salgado [address] [place] [address] PCP - General Internal Medicine 07/29/24
--- OUTSIDE RECORDS SUMMARY | 2025-07-20 09:56 | XMS_ITS | Encounter Summary ---
Author Organization [employer] Address [address] [facility] 7 [place] [address] Care Team Providers Care Dental Practitioner Name Role Phone Ayaka Salgado MD Primary Care Provider [phone] Reason for Visit * Reason Onset Date Comments Med Refill 08/05/2024 Encounter Details Date Type Department Care Team ([facility] st Contact Info) Description 08/05/2024 Refill [facility] CHC MED & PEDS [address] [place] [address] Ayaka Salgado MD [address] [place] [address] Back pain, unspecified back location, unspecified back [...] 5-325 MG tablet To be sent to: [id number] - [place], [place] - [address] [facility] [place] documented in this encounter Plan of Treatment Upcoming Encounters Date Type Department Care Team (Late st Contact Info) Description 08/17/2025 9:00 AM EST Clinical Support [facility] MED & PEDS [address] [place] [address] Alana Hook, RN [address] [place] [address] documented as of this encounter Visit Diagnoses Diagnosis Back pain, unspecified back location, unspecified back pain laterality, unspecified chronicity- Primary documented in this encounter Additional Health Concerns Assessment Noted Time PHQ-9 Depression Total Score: 7 08/29/20 22 10:26 AM EST documented as of this encounter Care Teams Dental Practitioner Relationship Specialty Start Date End Date Ayaka Salgado MD [address] [place] [address] PCP - General Internal Medicine 09/15/18 documented as of this encounter
--- OUTSIDE RECORDS SUMMARY | 2025-07-20 09:56 | XMS_ITS | Encounter Summary ---
Author Organization [employer] Address [address] [facility] 7t [place] [address] Care Team Providers Care Concrete Products Machine Operator Name Role Phone Ayaka Salgado MD Primary Care Provider [phone] Encounter Details Date Type Department Care Team (Late st Contact Info) Description 06/25/2024 Orders Only [facility] CHC MED & PEDS [address] [place] [address] Provider, MD Ran Social History Tobacco Use [...] ([facility] st Contact Info) Description 08/17/2025 9:00 AM EST Clinical Support [facility] MED & PEDS [address] [place] [address] Alana Hook RN [address] [place] [address] documented as of this encounter Procedures Procedure [...] as of this encounter Care Teams Concrete Products Machine Operator Relationship Specialty Start Date End Date Ayaka Salgado MD [address] [place] [address] PCP - General Internal Medicine 09/15/18 documented as of this encounter
--- OUTSIDE RECORDS SUMMARY | 2025-07-20 09:56 | XMS_ITS | Encounter Summary ---
Author Organization [employer] Address [address] [place] [address] 7 [place] [address] Care Team Providers Care Assembler Tubing Name Role Phone Ayaka Salgado MD Primary Care Provider [phone] Reason for Visit * Reason Onset Date Comments Med Refill 07/28/2023 Encounter Details Date Type Department Care Team ([facility] st Contact Info) Description 07/28/2023 Telephone [facility] CHC MED & PEDS [address] [place] [address] Ayaka Salgado MD [address] [place] [address] Med Refill Social History Tobacco Use Types [...] (Percocet) 5-325 MG tablet Please sent to [id number] - [place] - [address] [facility] [place] documented in this encounter Plan of Treatment Upcoming Encounters Date Type Department Care Team ([facility] st Contact Info) Description 08/17/2025 9:00 AM EST Clinical Support [facility] MED & PEDS [address] [place] [address] Alana Hook, RACHELLE [address] [place] [address] documented as of this encounter Visit Diagnoses Not on filedocumented in this encounter Additional Health Concerns Assessment Noted Time PHQ-9 Depression Total Score: 7 08/29/20 22 10:26 AM EST documented as of this encounter Care Teams Assembler Tubing Relationship Specialty Start Date End Date Ayaka Salgado MD 505 [place] [address] PCP - General Internal Medicine 09/15/18 documented as of this encounter
--- OUTSIDE RECORDS SUMMARY | 2025-07-20 09:57 | XMS_ITS | Encounter Summary ---
Author Organization [employer] Address [address] [place] [address] 7 [place] [address] Care Team Providers Care Court Commissioner Name Role Phone Ayaka Salgado MD Primary Care Provider [phone] Reason for Visit * Reason Comments Med Refill Encounter Details Date Type Department Care Team ([facility] st Contact Info) Description 02/24/2023 Refill [facility] CHC MED & PEDS [address] [place] [address] Ayaka Salgado MD [address] [place] [address] Social History Tobacco Use Types Packs/Day Years [...] [facility] Contact Info) Description 08/17/2025 9:00 AM EST Clinical Support [facility] MED & PEDS [address] [place] [address] Alana Hook, RN [address] [place] [address] documented as of this encounter Visit Diagnoses Not on filedocumented in this encounter Additional Health Concerns Assessment Noted Time PHQ-9 Depression Total Score: 7 08/29/20 22 10:26 AM EST documented as of this encounter Care Teams Court Commissioner Relationship Specialty Start Date End Date Ayaka Salgado MD [address] [place] [address] PCP - General Internal Medicine 09/15/18 documented as of this encounter
--- OUTSIDE RECORDS SUMMARY | 2025-07-20 09:57 | XMS_ITS | Encounter Summary ---
Author Organization [employer] Address [address] [facility] 7 [place] [address] Care Team Providers Care Rfid Technician Name Role Phone Ayaka Salgado MD Primary Care Provider [phone] Reason for Visit * Reason Onset Date Comments Med Refill 09/29/2024 Encounter Details Date Type Department Care Team (Late st Contact Info) Description 09/29/2024 Refill [facility] [address] [place] [address] Ayaka Salgado MD [address] [facility] [address] [place] [id number] Arthropathy (Primary Dx) Social History Tobacco Use [...] 5-325 MG tablet To be sent to: [id number] - [place] - [address] [facility] documented in this encounter Plan of Treatment Upcoming Encounters Date Type Department Care Team ([facility] st Contact Info) Description 08/17/2025 9:00 AM EST Clinical Support [facility] CHC MED & PEDS 505 [facility] [place] [address] Alana Hook RN 505 [place] [address] documented as of this encounter Visit Diagnoses Diagnosis Arthropathy- Primary Unspecified arthropathy, site unspecified documented in this encounter Additional Health Concerns Assessment Noted Time PHQ-9 Depression Total Score: 7 08/29/20 22 10:26 AM EST documented as of this encounter Care Teams Rfid Technician Relationship Specialty Start Date End Date Ayaka Salgado MD 505 [place] [address] PCP - General Internal Medicine 09/15/18 documented as of this encounter
--- OUTSIDE RECORDS SUMMARY | 2025-07-20 09:57 | XMS_ITS | Encounter Summary ---
Author Organization [employer] Address [address] [place] [address] 7 [place] [address] Care Team Providers Care Litigation Support Analyst Name Role Phone Ayaka Salgado MD Primary Care Provider [phone] Encounter Details Date Type Department Care Team ([facility] st Contact Info) Description 03/04/2025 Orders Only [facility] CHC MED & PEDS [address] [place] [address] Ayaka Salgado MD [address] [place], [place] [id number] Social History Tobacco Use Types Packs/Day Years [...] Description 08/17/2025 9:00 AM EST Clinical Support [facility] MED & PEDS [address] [place] [address] Alana Hook, RACHELLE [address] [place] [address] documented as of this encounter Visit Diagnoses Not on filedocumented in this encounter Additional Health Concerns Assessment Noted Time PHQ-9 Depression Total Score: 12 025 11:13 AM EDT documented as of this encounter Care Teams Litigation Support Analyst Relationship Specialty Start Date End Date Ayaka Salgado MD [address] [place] [address] PCP - General Internal Medicine 09/15/18 documented as of this encounter
--- OUTSIDE RECORDS SUMMARY | 2025-07-20 09:57 | XMS_ITS | Encounter Summary ---
Author Organization [employer] Address [address] [place] [address] 7 [place] [address] Care Team Providers Care Case Liner Name Role Phone Ayaka Salgado MD Primary Care Provider [phone] Encounter Details Date Type Department Care Team ([facility] st Contact Info) Description 02/10/2025 Orders Only [facility] CHC MED & PEDS [address] [place] [address] Ayaka Salgado MD [address] [place], [place] [phone] Arthropathy Social History Tobacco Use Types Packs/Day [...] 9:00 AM EST Clinical Support [facility] CHC MED & PEDS [address] [place] [address] Alana Hook, RACHELLE [address] [place] [address] documented as of this encounter Visit Diagnoses Diagnosis Arthropathy Unspecified arthropathy, site unspecified documented in this encounter Additional Health Concerns Assessment Noted Time PHQ-9 Depression Total Score: 12 025 11:13 AM EDT documented as of this encounter Care Teams Case Liner Relationship Specialty Start Date End Date Ayaka Salgado MD [address] [place] [address] PCP - General Internal Medicine 09/15/18 documented as of this encounter
--- OUTSIDE RECORDS SUMMARY | 2025-07-20 09:57 | XMS_ITS | Encounter Summary ---
Author Organization [employer] Address [address] [place] [address] 7t [place] [address] Care Team Providers Care Egg Buyer Name Role Phone Ayaka Salgado MD Primary Care Provider [phone] Encounter Details Date Type Department Care Team (Late st Contact Info) Description 02/19/2023 Abstract [facility] Information Management [address] [place] [address] Ayaka Salgado MD 505 [place], [place] [id number] Social History Tobacco Use Types Packs/Day Years [...] 9:00 AM EST Clinical Support [facility] MED & PEDS [address] [place] [address] Alana Hook, RACHELLE [address] [place] [address] documented as of this encounter Visit Diagnoses Not on filedocumented in this encounter Additional Health Concerns Assessment Noted Time PHQ-9 Depression Total Score: 7 08/29/20 22 10:26 AM EST documented as of this encounter Care Teams Egg Buyer Relationship Specialty Start Date End Date Ayaka Salgado MD [address] [place] [address] PCP - General Internal Medicine 09/15/18 documented as of this encounter
--- OUTSIDE RECORDS SUMMARY | 2025-07-20 09:57 | XMS_ITS | Encounter Summary ---
Author Organization [employer] Address 75 [facility] 7 [place] [address] Care Team Providers Care Galley Stripper Name Role Phone Ayaka Salgado MD Primary Care Provider [phone] Reason for Visit * Reason Onset Date Comments Med Refill 01/19/2025 Encounter Details Date Type Department Care Team ([facility] st Contact Info) Description 01/19/2025 Telephone [facility] MEDICINE [address] [place], [place] [phone] Ayaka Salgado MD 505 [facility] [place] [address] Med Refill Social History Tobacco Use Types [...] refills and Ambien to soon for refill COSTUME MISTRESS checked on 01/19/25 last filled on 12/26/24 #30. * Telephone Encounter - Cleopatra Ortiz - 01/19/2025 8:14 AM EDT TC from pt requesting medication refill. Medications needing refill : melatonin 5 MG tablet zolpidem (Ambien) 10 MG tablet To be sent to: [id number] - [place], [place] - [address] [facility] [place] documented in this encounter Plan of Treatment Upcoming Encounters Date Type Department Care Team ([facility] st Contact Info) Description 08/17/2025 9:00 AM EST Clinical Support [facility] CHC MED & PEDS 505 [place] [address] Alana Hook, RACHELLE 505 [place] [address] documented as of this encounter Visit Diagnoses Not on filedocumented in this encounter Additional Health Concerns Assessment Noted Time PHQ-9 Depression Total Score: 12 025 11:13 AM EDT documented as of this encounter Care Teams Galley Stripper Relationship Specialty Start Date End Date Ayaka Salgado MD 505 [place] [address] PCP - General Internal Medicine 09/15/18 documented as of this encounter
--- OUTSIDE RECORDS SUMMARY | 2025-07-20 09:57 | XMS_ITS | Encounter Summary ---
Author Organization [employer] Address 75 [facility] 7t [place] [address] Care Team Providers Care Main Galley Scullion Name Role Phone Ayaka Salgado MD Primary Care Provider [phone] Encounter Details Date Type Department Care Team (Late st Contact Info) Description 10/11/2022 Orders Only [facility] MEDICINE 230 [place] [address] Ayaka Salgado MD [address] [facility] [address] [place] [id number] Congestive heart failure, unspecified HF chronicity, unspecified [...] Encounters Date Type Department Care Team ([facility] st Contact Info) Description 08/17/2025 9:00 AM EST Clinical Support [facility] MED & PEDS 505 [place] [address] Alana Hook RN 505 [place] [address] documented as of this encounter Visit Diagnoses Diagnosis Congestive heart failure, unspecified HF chronicity, unspecified heart failure type (HCC) Edema of foot Edema documented in this encounter Additional Health Concerns Assessment Noted Time PHQ-9 Depression Total Score: 7 08/29/20 22 10:26 AM EST documented as of this encounter Care Teams Main Galley Scullion Relationship Specialty Start Date End Date Ayaka Salgado MD 505 [place] [address] PCP - General Internal Medicine 09/15/18 documented as of this encounter
--- OUTSIDE RECORDS SUMMARY | 2025-07-20 09:57 | XMS_ITS ---
Author Organization [facility] [employer] Address [address] [place] [address] 7 [place] [address] Care Team Providers Care Percussion Tuner Name Role Phone Ayaka Salgado MD Primary Care Provider [phone] MAGNETIC OBSERVER Status:Enrolled (Active) Start date:12/20/2022 Enrollment date:12/20/2022 Case Team Name Relationship Phone Alana Hook RN(Responsible Staff) Registered Nurse Continued Care and Services Coordination
--- OUTSIDE RECORDS SUMMARY | 2025-07-20 09:57 | XMS_ITS | Encounter Summary ---
Author Organization [employer] Address [address] [place] [address] 7 [place] [address] Care Team Providers Care Welcome Hostess Name Role Phone Ayaka Salgado MD Primary Care Provider [phone] Reason for Visit * Reason Comments Med Refill Encounter Details Date Type Department Care Team ([facility] st Contact Info) Description 03/26/2025 Refill [facility] CHC MED & PEDS 505 [place] [address] Ayaka Salgado MD 505 [place] [address] Social History Tobacco Use Types Packs/Day Years [...] 08/17/2025 9:00 AM EST Clinical Support [facility] CHC MED & PEDS 505 [place] [address] Alana Hook, RACHELLE 505 [place] [address] documented as of this encounter Visit Diagnoses Not on filedocumented in this encounter Additional Health Concerns Assessment Noted Time PHQ-9 Depression Total Score: 12 025 11:13 AM EDT documented as of this encounter Care Teams Welcome Hostess Relationship Specialty Start Date End Date Ayaka Salgado MD 505 [place] [address] PCP - General Internal Medicine 09/15/18 documented as of this encounter
--- OUTSIDE RECORDS SUMMARY | 2025-07-20 09:57 | XMS_ITS | Encounter Summary ---
Author Organization [employer] Address [address] [place] [address] 7 [place] [address] Care Team Providers Care Superintendent Stations Name Role Phone Ayaka Salgado MD Primary Care Provider [phone] Reason for Visit * Reason Onset Date Comments Nurse Triage 02/04/2025 Encounter Details Date Type Department Care Team ([facility] st Contact Info) Description 02/04/2025 Telephone [facility] CHC MED & PEDS 505 [place] [address] Ayaka Salgado MD 505 [place] [address] Nurse Triage Social History Tobacco Use Types [...] - 02/04/2025 1:44 PM EDT Tc from residential caregiver Jaleel stating pt had cardiac procedure done. Jaleel reported pt removed bandage and is bleeding. Industrial Seamstress advise will send a message to triage nurse. Contact pt at [phone] If any questions Jaleel at [phone] ext [phone] documented in this encounter Plan of Treatment Upcoming Encounters Date Type Department Care Team (Late st Contact Info) Description 08/17/2025 9:00 AM EST Clinical Support [facility] MED & PEDS 505 [place] [address] Alana Hook, RACHELLE 505 [place] [address] documented as of this encounter Visit Diagnoses Diagnosis Arthropathy Unspecified arthropathy, site unspecified documented in this encounter Additional Health Concerns Assessment Noted Time PHQ-9 Depression Total Score: 12 025 11:13 AM EDT documented as of this encounter Care Teams Superintendent Stations Relationship Specialty Start Date End Date Ayaka Salgado MD [address] [place] [address] PCP - General Internal Medicine 09/15/18 documented as of this encounter
--- OUTSIDE RECORDS SUMMARY | 2025-07-20 09:57 | XMS_ITS | Encounter Summary ---
Author Organization [employer] Address [address] [place] [address] Care Team Providers Care Information Technology Project Manager Name Role Phone Ayaka Salgado MD Primary Care Provider [phone] Reason for Visit * Reason Onset Date Comments Med Refill 12/12/2022 Encounter Details Date Type Department Care Team ([facility] st Contact Info) Description 12/12/2022 Telephone [facility] MED & PEDS 505 [place] [address] Ayaka Salgado MD 505 [place] [address] Med Refill Social History Tobacco Use Types [...] (Norvasc) 5 MG tablet Please sent to [facility] #[id number] - [place] - [address] [facility] documented in this encounter Plan of Treatment Upcoming Encounters Date Type Department Care Team ([facility] st Contact Info) Description 08/17/2025 9:00 AM EST Clinical Support [facility] CHC MED & PEDS 505 [place] [address] Alana Hook, RN 505 [place] [address] documented as of this encounter Visit Diagnoses Not on filedocumented in this encounter Additional Health Concerns Assessment Noted Time PHQ-9 Depression Total Score: 7 08/29/20 22 10:26 AM EST documented as of this encounter Care Teams Information Technology Project Manager Relationship Specialty Start Date End Date Ayaka Salgado MD 505 [place] [address] PCP - General Internal Medicine 09/15/18 documented as of this encounter
--- OUTSIDE RECORDS SUMMARY | 2025-07-20 09:57 | XMS_ITS | Encounter Summary ---
Author Organization [employer] Address 75 [facility] 7 [place] [address] Care Team Providers Care Nutrition And Dietetics Instructor Name Role Phone Ayaka Salgado MD Primary Care Provider [phone] Reason for Visit * Reason Comments Med Refill Encounter Details Date Type Department Care Team (Late st Contact Info) Description 10/07/2022 Refill [facility] 230 [place] [address] Ayaka Salgado MD [address] [facility] [place] [address] Primary osteoarthritis involving multiple joints Social History [...] [facility] MED & PEDS 505 [place] [address] Alana Hook, RACHELLE 505 [place] [address] documented as of this encounter Visit Diagnoses Diagnosis Primary osteoarthritis involving multiple joints documented in this encounter Additional Health Concerns Assessment Noted Time PHQ-9 Depression Total Score: 7 08/29/20 22 10:26 AM EST documented as of this encounter Care Teams Nutrition And Dietetics Instructor Relationship Specialty Start Date End Date Ayaka Salgado MD 505 [place] [address] PCP - General Internal Medicine 09/15/18 documented as of this encounter
--- OUTSIDE RECORDS SUMMARY | 2025-07-20 09:57 | XMS_ITS | Encounter Summary ---
Author Organization [employer] Address 75 [facility] 7 [place] [address] Care Team Providers Care Snipper Name Role Phone Ayaka Salgado MD Primary Care Provider [phone] Reason for Visit * Reason Onset Date Comments r/s appt 08/23/2022 Encounter Details Date Type Department Care Team ([facility] st Contact Info) Description 08/23/2022 Telephone [facility] MEDICINE 230 [place] [address] Ayaka Salgado MD 505 [facility] [place] [address] r/s appt Social History Tobacco Use Types [...] appt has been canceled. Please contact at [phone] documented in this encounter Plan of Treatment Upcoming Encounters Date Type Department Care Team (Late st Contact Info) Description 08/17/2025 9:00 AM EST Clinical Support [facility] CHC MED & PEDS 505 [place] [address] Alana Hook, RACHELLE 505 [place] [address] documented as of this encounter Visit Diagnoses Not on filedocumented in this encounter Care Teams Snipper Relationship Specialty Start Date End Date Ayaka Salgado MD 505 [place] [address] PCP - General Internal Medicine 09/15/18 documented as of this encounter
--- OUTSIDE RECORDS SUMMARY | 2025-07-20 09:57 | XMS_ITS | Encounter Summary ---
Author Organization [employer] Address [address] [place] [address] Care Team Providers Care Photography Manager Name Role Phone Ayaka Salgado MD Primary Care Provider [phone] Reason for Visit * Reason Onset Date Comments Letter Accomodation 12/12/2022 Encounter Details Date Type Department Care Team ([facility] st Contact Info) Description 12/12/2022 Telephone [facility] CHC MED & PEDS 505 [place] [address] Ayaka Salgado MD 505 [place] [address] Letter Accomodation Social History Tobacco Use Types [...] hisPercocet. Advised message will be forwarded to SUPERVISOR INTERNATIONAL RESERVATIONS nurse regarding his request. Pt verbalizes understanding. * Telephone Encounter - Abiel Mills - 12/12/2022 9:32 AM EDT Tc from pt requesting an Accomodation letter. Please contact pt at [phone] documented in this encounter Plan of Treatment Upcoming Encounters Date Type Department Care Team (Late st Contact Info) Description 08/17/2025 9:00 AM EST Clinical Support [facility] MED & PEDS 505 [place] [address] Alana Hook, RN 505 [place] [address] documented as of this encounter Visit Diagnoses Diagnosis Congestive heart failure, unspecified HF chronicity, unspecified heart failure type (HCC) Primary osteoarthritis involving multiple joints documented in this encounter Additional Health Concerns Assessment Noted Time PHQ-9 Depression Total Score: 7 08/29/20 22 10:26 AM EST documented as of this encounter Care Teams Photography Manager Relationship Specialty Start Date End Date Ayaka Salgado MD 505 [place] [address] PCP - General Internal Medicine 09/15/18 documented as of this encounter
--- OUTSIDE RECORDS SUMMARY | 2025-07-20 09:57 | XMS_ITS | Encounter Summary ---
Author Organization [employer] Address 75 [facility] 7t [place] [address] Care Team Providers Care Returned Goods Inspector Name Role Phone Ayaka Salgado MD Primary Care Provider [phone] Encounter Details Date Type Department Care Team (Late st Contact Info) Description 06/14/2025 Orders Only [facility] CHC MED & PEDS [address] [place] [address] Provider, MD Ran Social History Tobacco Use [...] [facility] st Contact Info) Description 08/17/2025 9:00 AM EST Clinical Support [facility] CHC MED & PEDS 505 [place] [address] Alana Hook RN 505 [place] [address] documented as of this encounter Procedures Procedure Name Priority Date/Time Associated Diagnosis Comments US LIVER ELASTOGRAPHY - FIBROSCAN Routine 06/13/2025 9:33 AM EDT documented in this encounter Results * US LIVER ELASTOGRAPHY - FIBROSCAN (06/13/2025 9:33 AM EDT) Anatomical Region Laterality Modality Ultrasound us Historical Provider MD JC US PROCEDURES Final R esult documented in this encounter Visit Diagnoses Not on filedocumented in this encounter Additional Health Concerns Assessment Noted Time PHQ-9 Depression Total Score: 12 025 11:13 AM EDT documented as of this encounter Care Teams Returned Goods Inspector Relationship Specialty Start Date End Date Ayaka Salgado MD 505 [place] [address] PCP - General Internal Medicine 09/15/18 documented as of this encounter
--- OUTSIDE RECORDS SUMMARY | 2025-07-20 09:57 | XMS_ITS | Encounter Summary ---
Author Organization [employer] Address 75 [facility] 7t [place] [address] Care Team Providers Care Broadcast Meteorologist Name Role Phone Ayaka Salgado MD Primary Care Provider [phone] Reason for Visit * Reason Comments Med Refill Encounter Details Date Type Department Care Team ([facility] st Contact Info) Description 06/15/[address] [facility] MEDICINE 230 [place], [place] [phone] Lev Gentile MD 230 [place], [place] [phone] Chronic pruritus Social History Tobacco Use Types [...] [facility] MED & PEDS 505 [place] [address] Alana Hook, RACHELLE 505 [place] [address] documented as of this encounter Visit Diagnoses Diagnosis Chronic pruritus documented in this encounter Additional Health Concerns Assessment Noted Time PHQ-9 Depression Total Score: 7 08/29/20 22 10:26 AM EST documented as of this encounter Care Teams Broadcast Meteorologist Relationship Specialty Start Date End Date Ayaka Salgado MD 505 [place] [address] PCP - General Internal Medicine 09/15/18 documented as of this encounter
--- OUTSIDE RECORDS SUMMARY | 2025-07-20 09:57 | XMS_ITS | Encounter Summary ---
Author Organization [employer] Address [address] [place] [address] Care Team Providers Care Catalogue Clerk Name Role Phone Ayaka Salgado MD Primary Care Provider [phone] Reason for Visit * Reason Onset Date Comments Med Refill 12/12/2022 Encounter Details Date Type Department Care Team ([facility] st Contact Info) Description 12/12/2022 Telephone [facility] MED & PEDS 505 [place] [address] Ayaka Salgado MD 505 [place] [address] Med Refill Social History Tobacco Use Types [...] (Percocet) 5-325 MG tablet Please sent to [facility] #[id number] - [place] - [address] [facility] documented in this encounter Plan of Treatment Upcoming Encounters Date Type Department Care Team (Late st Contact Info) Description 08/17/2025 9:00 AM EST Clinical Support [facility] CHC MED & PEDS 505 [place] [address] Alana Hook, RN 505 [place] [address] documented as of this encounter Visit Diagnoses Not on filedocumented in this encounter Additional Health Concerns Assessment Noted Time PHQ-9 Depression Total Score: 7 08/29/20 22 10:26 AM EST documented as of this encounter Care Teams Catalogue Clerk Relationship Specialty Start Date End Date Ayaka Salgado MD 505 [place] [address] PCP - General Internal Medicine 09/15/18 documented as of this encounter
--- OUTSIDE RECORDS SUMMARY | 2025-07-20 09:57 | XMS_ITS | Encounter Summary ---
Author Organization [employer] Address 75 [facility] 7 [place] [address] Care Team Providers Care Casting Finisher Name Role Phone Ayaka Salgado MD Primary Care Provider [phone] Reason for Visit * Reason Onset Date Comments Med Refill 01/25/2025 Encounter Details Date Type Department Care Team ([facility] st Contact Info) Description 01/25/2025 Telephone [facility] MEDICINE 230 [place], [place] [phone] Ayaka Salgado MD 505 [facility] [place] [address] Med Refill Social History Tobacco Use Types [...] 10 MG tablet To be sent to: [facility][id number] [place] - [address] [facility] [place] documented in this encounter Plan of Treatment Upcoming Encounters Date Type Department Care Team (Late st Contact Info) Description 08/17/2025 9:00 AM EST Clinical Support [facility] MED & PEDS [address] [place] [address] Alana Hook RN [address] [place] [address] documented as of this encounter Visit Diagnoses Not on filedocumented in this encounter Additional Health Concerns Assessment Noted Time PHQ-9 Depression Total Score: 12 025 11:13 AM EDT documented as of this encounter Care Teams Casting Finisher Relationship Specialty Start Date End Date Ayaka Salgado MD 505 [place] [address] PCP - General Internal Medicine 09/15/18 documented as of this encounter
--- OUTSIDE RECORDS SUMMARY | 2025-07-20 09:57 | XMS_ITS | Encounter Summary ---
Author Organization [employer] Address 75 [facility] 7t [place] [address] Care Team Providers Care Material Assistant Name Role Phone Ayaka Salgado MD Primary Care Provider [phone] Reason for Visit * Reason Comments Med Refill Encounter Details Date Type Department Care Team (Late st Contact Info) Description 03/02/2024 Refill [facility] MEDICINE 230 [place] [address] Ayaka Salgado MD [address] [facility] [address] [place] [phone] Primary osteoarthritis involving multiple joints Social History [...] 08/17/2025 9:00 AM EST Clinical Support [facility] MED & PEDS 505 [place] [address] Alana Hook RN 505 [place] [address] documented as of this encounter Visit Diagnoses Diagnosis Primary osteoarthritis involving multiple joints documented in this encounter Additional Health Concerns Assessment Noted Time PHQ-9 Depression Total Score: 7 08/29/20 22 10:26 AM EST documented as of this encounter Care Teams Material Assistant Relationship Specialty Start Date End Date Ayaka Salgado MD 505 [place] [address] PCP - General Internal Medicine 09/15/18 documented as of this encounter
--- OUTSIDE RECORDS SUMMARY | 2025-07-20 09:57 | XMS_ITS | Encounter Summary ---
Author Organization [employer] Address [address] [place] [address] 7t [place] [address] Care Team Providers Care Tire Design Engineer Name Role Phone Ayaka Salgado MD Primary Care Provider [phone] Encounter Details Date Type Department Care Team (Late st Contact Info) Description 01/23/2023 [facility] Information Management 230 [place] [address] Ayaka Salgado MD 505 [place], [place] [phone] Social History Tobacco Use Types Packs/Day Years [...] Description 08/17/2025 9:00 AM EST Clinical Support [facility] MED & PEDS 505 [place] [address] Alana Hook, RACHELLE 505 [place] [address] documented as of this encounter Visit Diagnoses Not on filedocumented in this encounter Additional Health Concerns Assessment Noted Time PHQ-9 Depression Total Score: 7 08/29/20 22 10:26 AM EST documented as of this encounter Care Teams Tire Design Engineer Relationship Specialty Start Date End Date Ayaka Salgado MD 505 [place] [address] PCP - General Internal Medicine 09/15/18 documented as of this encounter
--- OUTSIDE RECORDS SUMMARY | 2025-07-20 09:57 | XMS_ITS | Encounter Summary ---
Author Organization [employer] Address [address] [place] [address] 7 [place] [address] Care Team Providers Care Ict Programmer Name Role Phone Ayaka Salgado MD Primary Care Provider [phone] Reason for Visit * Reason Comments Med Refill Encounter Details Date Type Department Care Team ([facility] st Contact Info) Description 01/06/2023 Refill [facility] CHC MED & PEDS 505 [place] [address] Ayaka Salgado MD 505 [place] [address] Primary osteoarthritis involving multiple joints Social History [...] [facility] MED & PEDS 505 [place] [address] Alana Hook RN 505 [place] [address] documented as of this encounter Visit Diagnoses Diagnosis Primary osteoarthritis involving multiple joints documented in this encounter Additional Health Concerns Assessment Noted Time PHQ-9 Depression Total Score: 7 08/29/20 22 10:26 AM EST documented as of this encounter Care Teams Ict Programmer Relationship Specialty Start Date End Date Ayaka Salgado MD 505 [place] [address] PCP - General Internal Medicine 09/15/18 documented as of this encounter
--- OUTSIDE RECORDS SUMMARY | 2025-07-20 09:57 | XMS_ITS | Encounter Summary ---
Author Organization [employer] Address [address] [place] [address] [address] [address] Care Team Providers Care Show Card Writer Name Role Phone Ayaka Salgado MD Primary Care Provider [phone] Reason for Visit * Reason Onset Date Comments Med Refill 05/12/2025 Encounter Details Date Type Department Care Team ([facility] st Contact Info) Description 05/12/2025 Telephone [facility] CHC MED & PEDS 505 [place] [address] Ayaka Salgado MD 505 [place] [address] Med Refill Social History Tobacco Use Types [...] encounter Miscellaneous Notes * Telephone Encounter - Lisas White LPN - 05/12/2025 10:04 AM EDT Medication was sent to [facility] #[id number] on 11/22/24 with 11 refills. * Telephone Encounter - Be Llamas - 05/12/2025 10:00 AM EDT TC from pt requesting medication refill. Medications needing refill : guaiFENesin (Mucinex) 600 MG 12 hr tablet To be sent to: [facility] #[id number] - [place] AT [facility] [place] documented in this encounter Plan of Treatment Upcoming Encounters Date Type Department Care Team (Roc[facility] st Contact Info) Description 08/17/2025 9:00 AM EST Clinical Support [facility] MED & PEDS 505 [place] [address] Alana Hook, RACHELLE 505 [place] [address] documented as of this encounter Visit Diagnoses Not on filedocumented in this encounter Additional Health Concerns Assessment Noted Time PHQ-9 Depression Total Score: 12 025 11:13 AM EDT documented as of this encounter Care Teams Show Card Writer Relationship Specialty Start Date End Date Ayaka Salgado MD 505 [place] [address] PCP - General Internal Medicine 09/15/18 documented as of this encounter
--- OUTSIDE RECORDS SUMMARY | 2025-07-20 09:57 | XMS_ITS | Encounter Summary ---
Author Organization [employer] Address 75 [facility] 7t [place] [address] Care Team Providers Care Wool Shearer Name Role Phone Ayaka Salgado MD Primary Care Provider [phone] Encounter Details Date Type Department Care Team (Late st Contact Info) Description 04/29/2024 Telephone [facility] MEDICINE [address] [place] [address] Ayaka Salgado MD [address] [place] [phone] Social History Tobacco Use Types Packs/Day Years [...] 10 MG tablet To be sent to: [id number] - [place], [place] - [address] [facility] [address] documented in this encounter Plan of Treatment Upcoming Encounters Date Type Department Care Team (Late st Contact Info) Description 08/17/2025 9:00 AM EST Clinical Support [facility] MED & PEDS 505 [place] [address] Alana Hook RN 505 [place] [address] documented as of this encounter Visit Diagnoses Not on filedocumented in this encounter Additional Health Concerns Assessment Noted Time PHQ-9 Depression Total Score: 7 08/29/20 22 10:26 AM EST documented as of this encounter Care Teams Wool Shearer Relationship Specialty Start Date End Date Ayaka Salgado MD 505 [place] [address] PCP - General Internal Medicine 09/15/18 documented as of this encounter
--- OUTSIDE RECORDS SUMMARY | 2025-07-20 09:57 | XMS_ITS | Encounter Summary ---
Author Organization [employer] Address 75 [facility] 7 [place] [address] Care Team Providers Care Portfolio Strategist Name Role Phone Ayaka Salgado MD Primary Care Provider [phone] Reason for Visit * Reason Onset Date Comments Med Refill 01/19/2025 Encounter Details Date Type Department Care Team ([facility] st Contact Info) Description 01/19/2025 Telephone [facility] MEDICINE 230 [place], [place] [phone] Ayaka Salgado MD 505 [facility] [place] [address] Med Refill Social History Tobacco Use Types [...] 5-325 MG tablet To be sent to: [facility][id number] - [place] - [address] [facility] documented in this encounter Plan of Treatment Upcoming Encounters Date Type Department Care Team ([facility] st Contact Info) Description 08/17/2025 9:00 AM EST Clinical Support [facility] MED & PEDS 505 [facility] [place] [address] Alana Hook, RACHELLE [address] [facility] [place] [address] documented as of this encounter Visit Diagnoses Not on filedocumented in this encounter Additional Health Concerns Assessment Noted Time PHQ-9 Depression Total Score: 12 025 11:13 AM EDT documented as of this encounter Care Teams Portfolio Strategist Relationship Specialty Start Date End Date Ayaka Salgado MD [address] [place] [address] PCP - General Internal Medicine 09/15/18 documented as of this encounter
--- OUTSIDE RECORDS SUMMARY | 2025-07-20 09:57 | XMS_ITS | Encounter Summary ---
Author Organization [employer] Address [address] [facility] 7 [place] [address] Care Team Providers Care Religious Ritual Slaughterer Name Role Phone Ayaka Salgado MD Primary Care Provider [phone] Reason for Visit * Reason Onset Date Comments Med Refill 02/08/2025 Encounter Details Date Type Department Care Team ([facility] st Contact Info) Description 02/08/[address] [facility] MEDICINE 230 [place], [place] [phone] Ayaka Salgado MD 505 [facility] [place] [address] Med Refill Social History Tobacco Use Types [...] requesting status of medication. Contact pt at [phone] * Telephone Encounter - Cleopatra Ortiz - 02/08/2025 10:21 AM EDT TC from pt requesting medication refill. Medications needing refill : oxyCODONE-acetaminophen (Percocet) 5-325 MG tablet To be sent to: [facility][id number] - [place] - [address] [facility] [place] documented in this encounter Plan of Treatment Upcoming Encounters Date Type Department Care Team ([facility] st Contact Info) Description 08/17/2025 9:00 AM EST Clinical Support [facility] MED & PEDS 505 [place] [address] Alana Hook, RACHELLE 505 [place] [address] documented as of this encounter Visit Diagnoses Not on filedocumented in this encounter Additional Health Concerns Assessment Noted Time PHQ-9 Depression Total Score: 12 025 11:13 AM EDT documented as of this encounter Care Teams Religious Ritual Slaughterer Relationship Specialty Start Date End Date Ayaka Salgado MD 505 [place] [address] PCP - General Internal Medicine 09/15/18 documented as of this encounter
--- OUTSIDE RECORDS SUMMARY | 2025-07-20 09:57 | XMS_ITS | Encounter Summary ---
Author Organization [employer] Address 75 [facility] 7t [place] [address] Care Team Providers Care Nutrition Club Ambassador Name Role Phone Ayaka Salgado MD Primary Care Provider [phone] Encounter Details Date Type Department Care Team ([facility] st Contact Info) Description 05/26/2024 Orders Only [facility] CHC MED & PEDS 505 [place] [address] Ayaka Salgado MD 505 [place], [place] [phone] Simple chronic bronchitis (CMS/HCC) (Primary Dx) Social [...] 9:00 AM EST Clinical Support [facility] MED & PEDS 505 [place] [address] Alana Hook, RACHELLE 505 [place] [address] documented as of this encounter Visit Diagnoses Diagnosis Simple chronic bronchitis (CMS/HCC) (HCC)- Primary Simple chronic bronchitis documented in this encounter Additional Health Concerns Assessment Noted Time PHQ-9 Depression Total Score: 7 08/29/20 22 10:26 AM EST documented as of this encounter Care Teams Nutrition Club Ambassador Relationship Specialty Start Date End Date Ayaka Salgado MD 505 [place] [address] PCP - General Internal Medicine 09/15/18 documented as of this encounter
--- OUTSIDE RECORDS SUMMARY | 2025-07-20 09:57 | XMS_ITS | Encounter Summary ---
Author Organization [employer] Address [address] [place] [address] 7 [place] [address] Care Team Providers Care Netbackup Admin Name Role Phone Ayaka Salgado MD Primary Care Provider [phone] Reason for Visit * Reason Comments Med Refill Encounter Details Date Type Department Care Team ([facility] st Contact Info) Description 06/22/2025 Refill [facility] CHC MED & PEDS 505 [place] [address] Ayaka Salgado MD 505 [place] [address] Chronic pruritus Social History Tobacco Use Types [...] Description 08/17/2025 9:00 AM EST Clinical Support [facility] CHC MED & PEDS 505 [place] [address] Alana Hook, RACHELLE 505 [place] [address] documented as of this encounter Visit Diagnoses Diagnosis Chronic pruritus documented in this encounter Additional Health Concerns Assessment Noted Time PHQ-9 Depression Total Score: 12 025 11:13 AM EDT documented as of this encounter Care Teams Netbackup Admin Relationship Specialty Start Date End Date Ayaka Salgado MD 505 [place] [address] PCP - General Internal Medicine 09/15/18 documented as of this encounter
--- OUTSIDE RECORDS SUMMARY | 2025-07-20 09:57 | XMS_ITS | Encounter Summary ---
Author Organization [employer] Address 75 [facility] 7 [place] [address] Care Team Providers Care Freelance Court Stenographer Name Role Phone Ayaka Salgado MD Primary Care Provider [phone] Reason for Visit * Reason Onset Date Comments Med Refill 02/28/2025 Encounter Details Date Type Department Care Team ([facility] st Contact Info) Description 02/28/2025 Telephone [facility] MEDICINE 230 [place], [place] [phone] Ayaka Salgado MD 505 [facility] [place] [address] Med Refill Social History Tobacco Use Types [...] 5-325 MG tablet To be sent to: [facility][id number] - [place] - [address] [facility] documented in this encounter Plan of Treatment Upcoming Encounters Date Type Department Care Team ([facility] st Contact Info) Description 08/17/2025 9:00 AM EST Clinical Support [facility] CHC MED & PEDS 505 [facility] [place] [address] Alana Hook, RACHELLE [address] [facility] [place] [address] documented as of this encounter Visit Diagnoses Not on filedocumented in this encounter Additional Health Concerns Assessment Noted Time PHQ-9 Depression Total Score: 12 025 11:13 AM EDT documented as of this encounter Care Teams Freelance Court Stenographer Relationship Specialty Start Date End Date Ayaka Salgado MD [address] [place] [address] PCP - General Internal Medicine 09/15/18 documented as of this encounter
--- OUTSIDE RECORDS SUMMARY | 2025-07-20 09:57 | XMS_ITS | Encounter Summary ---
Author Organization [employer] Address 75 [facility] 7 [place] [address] Care Team Providers Care Supervisor Wet End Name Role Phone Ayaka Salgado MD Primary Care Provider [phone] Reason for Visit * Reason Onset Date Comments Med Refill 07/31/2023 Encounter Details Date Type Department Care Team ([facility] st Contact Info) Description 07/31/2023 Telephone [facility] MEDICINE 230 [place], [place] [phone] Aykaa Salgado MD 505 [facility] [place] [address] Med Refill Social History Tobacco Use Types [...] 9:00 AM EST Clinical Support [facility] MED & PEDS 505 [place] [address] Alana Hook, RACHELLE 505 [place] [address] documented as of this encounter Visit Diagnoses Not on filedocumented in this encounter Additional Health Concerns Assessment Noted Time PHQ-9 Depression Total Score: 7 08/29/20 22 10:26 AM EST documented as of this encounter Care Teams Supervisor Wet End Relationship Specialty Start Date End Date Ayaka Salgado MD 505 [place] [address] PCP - General Internal Medicine 09/15/18 documented as of this encounter
== END 2025-07-20 09:44 | disposition home or self-care (01) ==
LOC: HO.HPS 09:11
PROVIDERS: PCP Internal Medicine; Visit Provider Internal Medicine
DX: J44.9 Chronic obstructive pulmonary disease, unspecified (principal); G47.33 Obstructive sleep apnea (adult) (pediatric)
CPT/HCPCS: 99213

== ENCOUNTER 2025-07-20 10:41 | Outpatient (REF) | payer MEDICARE, SELFPAY ==
[2025-07-20 14:20] LABS: Hematocrit 32.0 % (42.0-52.0); Hemoglobin 9.9 g/dl (14.0-18.0); Mean Corpuscular HGB Conc 30.9 g/dl (31.0-36.0); Mean Corpuscular Hemoglobin 27.3 pg (27.0-33.0); Mean Corpuscular Volume 88.2 fL (80.0-98.0); NRBC Abs Auto 0.000 X10*3/uL (0.0-0.012); NRBC Pct Auto 0.0 /100WBC (0.0-0.2); Platelet Count 202 X10*3/uL (160-400); Red Blood Count 3.63 X10*6/uL (4.60-5.80); White Blood Count 7.5 X10*3/uL (4.8-10.8)
[2025-07-20 14:45] LABS: Parathyroid Hormone Intact 262.4 pg/mL (8.7-77.1)
[2025-07-20 14:53] LABS: Anion Gap 13 (12-20); Blood Urea Nitrogen 54 mg/dL (9-16); Calcium 9.6 mg/dL (8.4-10.2); Carbon Dioxide 26 mmol/L (22-29); Chloride 107 mmol/L (96-108); Iron 45 mcg/dL (45-160); Percent Iron Saturation 19 % (15-50); Potassium 4.2 mmol/L (3.3-5.1); Sodium 142 mmol/L (135-145); Total Iron Binding Capacity 238 mcg/dL (228-428); Unsaturated Iron Binding 193 ug/dL
[2025-07-20 14:54] LABS: Estimated Glomerular Filt Rate 11
[2025-07-20 14:56] LABS: Ferritin 73 ng/mL (20-250)
== END 2025-07-20 10:42 | disposition home or self-care (01) ==
LOC: HO.CHCLDS 10:41
PROVIDERS: Visit Provider Internal Medicine Hypertension Specialist
DX: N18.5 Chronic kidney disease, stage 5 (principal); D64.9 Anemia, unspecified; E21.3 Hyperparathyroidism, unspecified
CPT/HCPCS: 36415; 80048; 82728; 83540; 83970; 85027; 99212

== ENCOUNTER 2025-07-25 11:23 | Outpatient (AMB) | payer MEDICARE, SELFPAY ==
--- OUTSIDE RECORDS SUMMARY | 2025-07-19 11:00 | XMS_ITS | Encounter Summary ---
Author Organization [facility] Address [address] [place] [address] Care Team Providers Care Accreditation Manager Name Role Phone Ayaka Salgado Primary Care Provider [phone] Reason for Referral * Pulmonary (Routine) - Closed Specialty Diagnoses / Procedures Referred By Froy galdamez Referred To Contact Diagnoses Dyspnea, unspecified type Procedures Pulmonary function test Joey Duarte MD [address] [place] [address] Phone: tel: fax: Referral ID Status Reason Start Date Expiration Date Visits Re quested Visits Authorized [id number] Closed 06/28/2025 12/28/2026 1 1 Reason for Visit * Pulmonary (Routine) - Closed Specialty Diagnoses / Procedures Referred By Froy galdamez Referred To Contact Diagnoses Dyspnea, unspecified type Procedures Pulmonary function test Joey Duarte MD [address] [place] [address] Phone: tel: fax: Referral ID Status Reason Start Date Expiration Date Visits Re quested Visits Authorized [id number] Closed 06/28/2025 12/28/2026 1 1 Encounter Details Date Type Department Care Team (Latest Contact Info) Description 07/19/2025 11:00 AM EST - 07/19/2025 11:59 PM EST Hospital Encounter [facility] Pulmonary Function Lab [address] [place] [address] Dyspnea, unspecified type Discharge Disposition: Home or [...] Description 10/17/2025 9:30 AM EST Office Visit [facility] Lung [facility] Allergy [facility] [address] [place] [phone] Residential Property Consultant: Lissa Vidal DO [address] [facility] [place] [address] 06/13/2026 9:40 AM EDT Follow-Up [facility] Renal Transplant [address] [place] [address] Joey Duarte MD [address] [place] [address] 06/13/2026 10:00 AM EDT Social Work [facility] Renal Transplant [address] [place] [address] Hugh Holman Pending Results Name Type Priority [...] type documented in this encounter Care Teams Accreditation Manager Relationship Specialty Start Date End Date Ayaka Salgado [address] [place] [id number] PCP - General Internal Medicine 07/29/24 documented as of this encounter
[2025-07-25 11:29] VITALS: BP 110/68; PULSE 63; O2SAT 98; BMI 33.7
--- NOTE | 2025-07-25 11:29 | HO.NEPHOV_ITS ---
Vital Signs 07/25/25 11:29 Height 5 ft 7 in Weight 215 lb BMI 33.7 BP 110/68 Blood Pressure Location Rt brachial Position Sitting Pulse 63 Pulse Source Pulse Oximeter Pulse Oximetry (%) 98 Oxygen Delivery Method Room Air Intake Visit Reasons: 8wk Retacrit f/u w/labs Sales Teacher Required: No Accompanied by: Self / Same As Patient Allergies aspirin Adverse Reaction (Unknown, Verified 07/25/25 11:33) nose bleeds metformin Adverse Reaction (Unknown, Verified 07/25/25 11:33) hypoglycemia warfarin (From Coumadin) Adverse Reaction (Unknown, Verified 07/25/25 11:33) Nose Bleed apixaban Adverse Reaction (Verified 07/25/25 11:33) Nose Bleed clopidogrel Adverse Reaction (Verified 07/25/25 11:) Nose Bleed COUNTS INCLUDE 234 BEDS AT [facility] Medical History Obesity (BMI 30-39.9) Elevated brain natriuretic peptide (BNP) level Lower extremity edema COPD (chronic obstructive pulmonary disease) LEONEL (obstructive sleep apnea) Dyspnea on minimal exertion COPD (chronic obstructive pulmonary disease) Smoker Left ventricular hypertrophy Smoking CKD (chronic kidney disease) Obesity Dyslipidemia Hypertension Diabetes mellitus Surgical History No pertinent past surgical history Family History Father No problems noted. Mother Diabetes Family/Other No problems noted. Social History Household Members: Significant Other Housing: Apartment Do you presently have visiting nurse or other home services: No Alcohol intake: current Alcohol intake frequency: a few times a month Patient Tobacco Use Status: Former Tobacco user e-Cigarette/Vaping Use: Never Used Second Hand Smoke Exposure: No Advance Directives Date on File: 08/23/22 service: No Current occupational status: disabled Physical Exam Vital Signs: Last Vital Signs Pulse 63 07/25/25 11:29 BP 110/68 07/25/25 11:29 Pulse Ox 98 07/25/25 11:29 Oxygen Delivery Method Room Air 07/25/25 11:29 BMI result Body Mass Index 33.7 Comfortable Neck supple no JVD. Lungs entry equal no rales. Heart S1-S2 heard no gallop or rub. Abdomen soft nontender. Neuro alert awake oriented. No asterixis. Extremities 2+edema. Office Meds epoetin chad-epbx 20,000 unit/mL injection solution Performing Provider: Ross Baldwin MD Per[facility] Administered by: Ross Baldwin MD on 07/25/25 11:43 Dose Route Admin Location Dispensed Lot Number Expiration Date [facility] Appeals Board Referee 20,000 unit subcut right arm 1 mL [id number] 11/12/26 6778-1245-01 [facility]ARM Total Dispensed Waste 1 mL 0 % Results Reviewed Nephrology Results: Hgb, (14.0-18.0) 9.9 g/dl L 07/20/25 WBC, (4.8-10.8) 7.5 X10*3/uL 07/20/25 Plt Count, (160-400) 202 X10*3/uL 07/20/25 Sodium, (135-145) 142 mmol/L 07/20/25 Potassium, (3.3-5.1) 4.2 mmol/L 07/20/25 Chloride, (96-108) 107 mmol/L 07/20/25 Carbon Dioxide, (22-29) 26 mmol/L 07/20/25 BUN, (9-16) 54 mg/dL H 07/20/25 Creatinine, (0.5-1.4) 5.06 mg/dL H* 07/20/25 Calcium, (8.4-10.2) 9.6 mg/dL 07/20/25 Phosphorus, (2.7-4.5) 5.6 mg/dL H 05/02/25 PTH Intact, (8.7-77.1) 262.4 pg/mL H 07/20/25 Assessment & Plan Assessment & Plan (1) Anemia: Code(s): D64.9 - Anemia, unspecified Category: Medical Plan: Adminstered Retacrit 08861 U sq (2) CKD (chronic kidney disease) stage 5, GFR less than 15 ml/min: Code(s): N18.5 - Chronic kidney disease, stage 5 Category: Medical Plan: Renal fx unchanged eGFR between 10 and 12 ml/mt since Sep 2024 No s/s or uremia or fluid overload today (3) Essential hypertension: Code(s): I10 - Essential (primary) hypertension Category: Medical Plan: BP appears controlled. We discussed weight loss and low-salt diet again. (4) Chronic diastolic congestive heart failure: Code(s): I50.32 - Chronic diastolic (congestive) heart failure Category: Medical Plan: Compensated. Follows with cardiology. (5) Type 2 diabetes mellitus with unspecified complications: Code(s): E11.8 - Type 2 diabetes mellitus with unspecified complications Category: Medical (6) Obesity (BMI 30-39.9): Code(s): E66.9 - Obesity, unspecified Category: Medical Plan: Discussed weight loss. (7) Hyperparathyroidism: Code(s): E21.3 - Hyperparathyroidism, unspecified Category: Medical Plan: He is currently on cinacalcet and Rocaltrol. Cinacalcet on hold since 11/08/24) Repeat Ca is normal Follow PTH Restarted Cinacalcet 05/31/25 ( PTH is improving) Plan Referred to dialysis education program. He will be a good candidate for CCPD Discussed pre-emptive transplant Referred to [facility] - seen in Nov Work up in progress Orders: Orders Creatinine 4 Weeks D64.9 - Anemia, unspecified, N18.5 - Chronic kidney disease, stage 5 AMB Epoetin Injection Practice Supplied Today N40.1 - Benign prostatic hyperplasia with lower urinary tract symptoms Hemoglobin 4 Weeks D64.9 - Anemia, unspecified, N18.5 - Chronic kidney disease, stage 5 Coding Level of Care Code Est Pt Level 4 (42911) Diagnoses Anemia D64.9 CKD (chronic kidney disease) stage 5, GFR less than 15 ml/min N18.5 Essential hypertension I10 Chronic diastolic congestive heart failure I50.32 Type 2 diabetes mellitus with unspecified complications E11.8 Obesity (BMI 30-39.9) E66.9 Hyperparathyroidism E21.3
--- OUTSIDE RECORDS SUMMARY | 2025-07-25 13:44 | XMS_ITS | Encounter Summary ---
Author Organization [employer] Address 75 [facility] 7 [place] [address] Care Team Providers Care Sewing Machine Operator Semiautomatic Name Role Phone Ayaka Salgado MD Primary Care Provider [phone] Reason for Visit * Reason Onset Date Comments Med Refill 09/06/2024 Encounter Details Date Type Department Care Team ([facility] st Contact Info) Description 09/06/2024 Telephone [facility] MEDICINE 230 [place], [place] [phone] Ayaka Salgado MD 505 [facility] [place] [address] Med Refill Social History Tobacco Use Types [...] 8:56 AM EST Medication was sent to [facility] #[id number] on 08/09/24 with 3 refills. * Telephone Encounter - Cleopatra Ortiz - 09/06/2024 8:53 AM EST TC from pt requesting medication refill. Medications needing refill : labetalol (Normodyne) 200 MG tablet To be sent to: [facility][id number] - [place] - [address] [facility] [address] documented in this encounter Plan of Treatment Upcoming Encounters Date Type Department Care Team ([facility] st Contact Info) Description 08/17/2025 9:00 AM EST Clinical Support [facility] MED & PEDS 505 [facility] [place] [address] Alana Hook, RN 505 [facility] [place] [address] documented as of this encounter Visit Diagnoses Not on filedocumented in this encounter Additional Health Concerns Assessment Noted Time PHQ-9 Depression Total Score: 7 08/29/20 22 10:26 AM EST documented as of this encounter Care Teams Sewing Machine Operator Semiautomatic Relationship Specialty Start Date End Date Ayaka Salgado MD 505 [place] [address] PCP - General Internal Medicine 09/15/18 documented as of this encounter
--- OUTSIDE RECORDS SUMMARY | 2025-07-25 13:44 | XMS_ITS | Encounter Summary ---
Author Organization [employer] Address [address] [facility] [address] 7t [place] [address] Care Team Providers Care Plant Clerk Name Role Phone Ayaka Salgado MD Primary Care Provider [phone] Encounter Details Date Type Department Care Team (Late st Contact Info) Description 06/25/2024 Orders Only [facility] CHC MED & PEDS [address] [place] [address] Provider, MD Ran Social History Tobacco Use [...] Upcoming Encounters Date Type Department Care Team ([facility] st Contact Info) Description 08/17/2025 9:00 AM EST Clinical Support [facility] MED & PEDS 505 [place] [address] Alana Hook RN 505 [place] [address] documented as of this encounter Procedures Procedure [...] documented as of this encounter Care Teams Plant Clerk Relationship Specialty Start Date End Date Ayaka Salgado MD 505 [place] [address] PCP - General Internal Medicine 09/15/18 documented as of this encounter
--- OUTSIDE RECORDS SUMMARY | 2025-07-25 13:44 | XMS_ITS | Encounter Summary ---
Author Organization [facility] [address] [facility] [address] [place] [address] Phone Care Team Providers Care Change Management Name Role Phone Jayme Salgado MD Primary Care Provider Reason for Visit * Reason Comments Med Refill Encounter Details Date Type Department Care Team (Late st Contact Info) Description 04/28/2023 Refill [facility] [address] [place] [id number] Mumtaz Childress MD [address] [facility] [address] [place] [address] Type 2 diabetes mellitus with [...] (HCC) documented in this encounter Care Teams Change Management Relationship Specialty Start Date End Date Jayme Salgado MD [address] [place] [address] PCP - General 09/25/20 documented as of this encounter
--- OUTSIDE RECORDS SUMMARY | 2025-07-25 13:44 | XMS_ITS | Clinical Summary ---
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; Pre-transplant evaluation for end stage renal disease 07/19/2025 11:00 AM EST - 07/19/2025 11:59 PM EST Hospital Encounter [facility] Pulmonary Function Lab [address] [place] [address] Dyspnea, unspecified type Discharge Disposition: Home or Self Care () 06/28/2025 10:40 AM EDT Follow-Up [facility] Renal Transplant [address] [place] [address] Joey Duarte MD Pre-transplant evaluation for kidney transplant (Primary Dx); Dyspnea, unspecified type; Stage 4 chronic kidney disease 06/28/2025 Telephone [facility] 4th floor Cardiology Medicine [address] [place] [address] Cad Engineer: Ezio Villagran MA PAC General Info 06/21/2025 Telephone [facility] Transplant Department [address] [place] [address] Shima Springer RN 06/16/2025 Documentation [facility] Transplant Department [address] [place] [address] Sheryl Moore, RACHELLE ABO Dual Validation 06/15/2025 Documentation [facility] Transplant Department [address] [place] [address] Shima Springer RN ABO Dual Validation 06/15/2025 Telephone [facility] Transplant Department [address] [place] [address] Shima Springer, instructional consultant - Kidney Txp 06/13/2025 10:30 AM EDT Procedure visit [facility] Gastroenterology Clinic [address] [place] [address] Cad Engineer: Kaylyn Gilliam RN Stage 4 chronic kidney disease (HCC) 06/13/2025 10:30 AM EDT Follow-Up [facility] Liver Transplant Services [address] [place] [address] Gary Reese MD Hepatomegaly (Primary Dx); Hepatic steatosis; Abnormal finding on imaging of liver 06/13/2025 Orders Only [facility] Gastroenterology Clinic [address] [place] [address] Cad Engineer: Kaylyn Gilliam RN Stage 4 chronic kidney [...] Description 10/17/2025 9:30 AM EST Office Visit [facility] Lung and Allergy Center [address] [place] [address] Cad Engineer: Lissa Vidal DO [address] [facility] [place] [address] 06/13/2026 9:40 AM EDT Follow-Up [facility] Renal Transplant [address] [place] [address] Joey Duarte MD [address] [place] [address] 06/13/2026 10:00 AM EDT Social Work [facility] Renal Transplant [address] [place] [address] Hugh Holman Health Maintenance Due Date Last [...] complete this topic Procedures * Due to [place] [employer] law, this organization might not be sharing [...] to Health Maintenance Results * Due to [place] [employer] law, this organization might not be sharing [...] IQR 0.6 FIBROSCAN IQR/Median Ratio 12 FIBROSCAN Pourer Metal Name Terrence BUSH FIBROSCAN Probe Size XL FIBROSCAN 06/13/2025 9:23 AM EDT Impressions FIBROSCAN - 06/13/2025 4:51 PM EDT FIBROSCAN REPORT Lewis Snyder is a 69 y.o. male referred for a FIBROSCAN Referring Physician: Gary Reese MD [address] [place] [address] PRIMARY CARE PROVIDER: Ayaka Salgado Procedure Done [...] - 10.8 10*3/uL 07/29/2024 1:35 PM EST [employer] [employer] [facility] LABOR[facility] RBC 3.69(L) 4.20 - 5.80 10*6/uL 07/29/2024 1:35 PM EST [employer] [facility] [employer] CLINICAL PATHOLOGY LABORATORY Hemoglobin 9.7(L) 13.2 - 17.1 g/dL 07/29/2024 1:35 PM EST [employer] [employer] [facility] CL[facility]ICAL PATHOLOGY LABORATORY Hematocrit 31.5(L) 38.5 - [...] - 3.90 10*3/uL 07/29/2024 1:35 PM EST [employer] [facility] [employer] [facility] CL[facility]ICAL PATHOLOGY LABORATORY Monocyte # 0.40 0.20 - 0.95 10*3/uL 07/29/2024 1:35 PM EST [employer] Pages[employer]aver[employer] CLINICAL PATHOLOGY LABORATORY Eosinophil # 0.40 0.02 - 0.50 10*3/uL 07/29/2024 1:35 PM EST [employer] [facility] [facility] [employer] [facility] CLINICAL PATHOLOGY LABORATORY Basophil # <0.03 0.00 - 0.20 10*3/uL 07/29/2024 1:35 PM EST [employer] [facility] [employer] CL[facility] PATHOLOGY LABORATORY nRBC % 0.0 /100 WBCs 07/29/2024 1:35 PM EST [employer] CLINICAL PATHOLOGY LABORATORY nRBC # <0.01 <0.01 10*3/uL 07/29/2024 1:35 PM EST [employer] CLINICAL PATHOLOGY LABORATORY Blood Structure of peripheral vein / Unknown Venipuncture / Unknown 07/29/2024 12:57 PM EST 07/29/2024 1:29 PM EST Joey Duarte MD LAB BLOOD ORDERABLES María howard Result [facility] CL[facility]ICAL PATHOLOGY LABORATORY [address] [place] [address], * Hepatitis C Antibody w/Reflex to PCR (07/29/2024 12:57 PM EST) Hepatitis C Antibody NON-REACT STANFORD NON-REACT STANFORD 07/30/2024 3:03 AM EST [employer] [facility] Comment: HCV antibody was non-reactive. There is no laboratory evidence of HCV infection. In most cases, no further action is required. However, if recent HCV exposure is suspected, a test for HCV RNA (test code 00037) is suggested. For additional information please refer to http://education.Poshly/faq/FXO25p3 (This link is being provided for informational/ educational purposes only.) Blood Structure of peripheral vein / Unknown Venipuncture / Unknown 07/29/2024 12:57 PM EST 07/29/2024 1:32 PM EST Narrative [facility] - 07/30/2024 3:03 AM EST [facility] Received Date: Joey Duarte MD LAB BLOOD ORDERABLES María l Result [facility] [address]rd [address], [place] [address], [employer] [facility] [address] [facility] [address], [place] [address], * Phosphorus (07/29/2024 12:57 PM EST) Pathologist [facility] Phosphorus 4.5 2.5 - 4.5 mg/dL 07/29/2024 2:00 PM EST [facility] CLINICAL PATHOLOGY LABORATORY Blood Structure of peripheral vein / Unknown Venipuncture / Unknown 07/29/2024 12:57 PM EST 07/29/2024 1:29 PM EST Joey Duarte MD LAB BLOOD ORDERABLES María l Result [employer] CLINICAL PATHOLOGY LABORATORY [address] [place] [address], * (ABNORMAL) Hemoglobin A1c (07/29/2024 12:57 PM EST) Hemoglobin A1C 6.7(H) <5.7 % of total Hgb 07/30/2024 1:59 AM EST [employer] [facility] Comment: For someone without known diabetes, [...] (MG/DL) 146 mg/dL 07/30/2024 1:59 AM EST [employer] eAG (MMOL/L) 8.1 mmol/L 07/30/2024 1:59 AM EST [employer] Blood Structure of peripheral vein / Unknown Venipuncture / Unknown 07/29/2024 12:57 PM EST 07/29/2024 1:32 PM EST Narrative [facility] - 07/30/2024 1:59 AM EST [facility] Received Date: Joey Duarte MD LAB BLOOD ORDERABLES María howard Result [facility]EL [facility] [address], [place] [address], [facility] [employer] [facility] [address] [facility] [address], [place] [address], from Last 3 Months or Most Recently Relevant to Health Maintenance Insurance [facility]ACE [facility] [place]PLACE [place] [id number] Advance Directives Documents on File Type Date Recorded Patient Icu Manager Expl [facility] Care Proxy 08/05/2024 4:14 PM 07-16 Care Teams Airfield Operations Specialist Relationship Specialty Start Date End Date Ayaka Salgado [address] [place] [address] PCP - General Internal Medicine 07/29/24
--- OUTSIDE RECORDS SUMMARY | 2025-07-25 13:44 | XMS_ITS | Encounter Summary ---
Author Organization [facility] Address [address] [place] [address] Care Team Providers Care Equity Director Name Role Phone Ayaka Salgado Primary Care Provider [phone] Encounter Details Date Type Department Care Team (Late st Contact Info) Description 07/29/2024 Orders Only [facility] Xray [address] [place] [address] Waqas Garnett MD [address] [place] [address] Social History Tobacco Use Types Packs/Day Years [...] Description 10/17/2025 9:30 AM EST Office Visit [facility] Lung [facility] Allergy Center [address] [place] [address] Roller Coaster Engineer: Lissa Vidal DO [address] [place] [address] [place] [address] 06/13/2026 9:40 AM EDT Follow-Up [facility] Renal Transplant [address] [place] [address] Joey Duarte MD [address] [place] [address] 06/13/2026 10:00 AM EDT Social Work [facility] Renal Transplant [address] [place] [address] Hugh Holman documented as of this encounter Visit Diagnoses Not on filedocumented in this encounter Care Teams Equity Director Relationship Specialty Start Date End Date Ayaka Salgado [address] [place] [address] PCP - General Internal Medicine 07/29/24 documented as of this encounter
--- OUTSIDE RECORDS SUMMARY | 2025-07-25 13:44 | XMS_ITS | Clinical Summary ---
Author Organization [employer] Address [address] [place] [address] 7t [place] [address] Care Team Providers Care Bleach Tester Name Role Phone Ayaak Salgado MD Primary Care Provider [phone] Allergies Active Allergy Reactions Criticality Noted Date [...] 0.083% nebulizer solutionIndicatio ns:Simple chronic bronchitis (CMS/HCC) ([facility]) Take 3 mL (2.5 mg) by nebulization [...] needed for wheezing. 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 30 each Active labetalol (Normodyne) 300 MG tabletIndications :Essential hypertension Take 1 tablet (300 mg) by mouth 2 times daily. 60 tablet 2025 Active OneTouch Verio test stripIndications: 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[facility]) USE TO TEST BLOOD SUGAR TWICE A [...] 12 hr tabletIndications :Simple chronic bronchitis (CMS/HCC) ([facility]) Take 2 tablets (1,200 mg) by mouth 2 times daily. 20 tablet Active melatonin 5 MG tabletIndications :Primary insomnia 1 tab of 5 mg at bedtime 90 tablet 1 Active oxyCODONE-acetami nophen (Percocet) 5-325 MG tabletIndications :Arthropathy Take 1 tablet by mouth every 6 (six) hours if needed for severe pain. 42 tablet Active glimepiride (Amaryl) 1 MG tabletIndications :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[facility]) Take 1 tablet (1 mg) by mouth before breakfast. 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 225 g 1 024 2024 oxyCODONE-acetami nophen (Percocet) 5-325 MG tabletIndications :Arthropathy [...] Diagnosed Date Normocytic anemia 02/22/2025 Atrial fibrillation ([facility]) 02/22/2025 Overview (02/22/2025): Status post Watchman device at [facility]. 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); Primary insomnia 07/14/2025 Refill [facility] MED & PEDS [address] [place] [address] Ayaka Salgado MD Arthropathy 06/29/2025 Refill [facility] MED & PEDS [address] [place] [address] Ayaka Salgado MD Arthropathy 06/24/2025 Refill [facility] MEDICINE [address] [place] [address] Ayaka Salgado MD Primary insomnia 06/22/2025 Refill [facility] MED & PEDS [address] [place] [address] Ayaka Salgado MD Chronic pruritus 06/14/2025 Orders Only [facility] MED & PEDS [address] [place] [address] Ran Nguyễn MD 06/06/2025 Refill [facility] MED & PEDS [address] [place] [address] Ayaka Salgado MD Arthropathy 05/31/2025 9:00 AM EDT Clinical Support [facility] MED & PEDS [address] [place] [address] Alana Hook RN Back pain, unspecified back location, unspecified back pain laterality, unspecified chronicity 05/31/2025 Refill [facility] MED & PEDS [address] [place] [address] Alana Hook RN Simple chronic bronchitis ([facility]) 05/31/2025 Travel 05/27/2025 Refill [facility] MEDICINE [address] [place] [address] Ayaka Salgado MD Primary insomnia 05/25/2025 Telephone [facility] PEDIATRICS [address] [place] [address] Ayaka Salgado MD CRITICAL LAB 05/20/2025 Refill [facility] MED & PEDS [address] [place] [address] Ayaka Salgado MD 05/12/2025 Telephone [facility] MED & PEDS [address] [place] [address] Ayaka Salgado MD Med Refill 05/12/2025 Refill [facility] MED & PEDS [address] [place] [address] Ayaka Salgado MD Arthropathy 04/26/2025 Refill [facility] MED & PEDS [address] [place] [address] Ayaka Salgado MD Primary insomnia 04/26/2025 Refill [facility] MED & PEDS [address] [place] [address] Ayaka Salgado MD Arthropathy from Last 3 [...] Upcoming Encounters Date Type Department Care Team ([facility] st Contact Info) Description 08/17/2025 9:00 AM EST Clinical Support [facility] MED [facility]EDS [address] [facility] [place] [address] Alana Hook, RN [address] [place] [address] Health Maintenance Due Date Last Done Comments [...] AM EDT . Internal Pass Control Lot# [id number] Exp: 07-15-26 Ayaka Salgado MD POINT OF [...] 9:08 AM EST) Triglycerides 55 <150 mg/dL [facility] Comment:Desirable Triglyceri de: less than 150 mg/dLBorderline High Triglyceride 150-199 mg/dLHigh Triglyceride: 200-499 mg/dLVery High Triglyceride: greater than or equal to 5OO mg/dL Cholesterol 101 <200 mg/dL [facility] Comment:Desirable Cholestero l: less than 200 mg/dLBorderline High Cholesterol: 200-239 mg/dLHigh Cholesterol: greater than 239 mg/dL LDL Cholesterol Calculated 57 <100 mg/dL [facility] Comment:Desirable LDL: less than 100 mg/dLNear Optimal/Above Optimal LDL: 110- 129 mg/dLBorderline High LDL: 130-159 mg/dLHigh LDL: 160-189 mg/dLVery High LDL: greater than or equal to 190 mg/dL HDL Cholesterol 33(L) >40 mg/dL [facility] Comment:Desirable HDL: great er than 40 mg/dL Note: This HDL assay may give artificially low results in patients with liver disease. Blood Venous blood specimen / Unknown 11/12/2023 9:08 AM EST 11/12/2023 2:41 PM EST us Ayaka Salgado MD LAB BLOOD ORDERABLES Final Result [facility] [address] [place] [address] [phone] from Last 3 Months or Most Recently Relevant to Health Maintenance Insurance [facility] AARP MEDICARE ADVANTAGE HMO Care Teams Bleach Tester Relationship Specialty Start Date End Date Ayaka Salgado MD [address] [place] [address] [place] [address] PCP - General Internal Medicine 09/15/18
--- OUTSIDE RECORDS SUMMARY | 2025-07-25 13:44 | XMS_ITS | Encounter Summary ---
Author Organization [employer] Address [address] [facility] 7t [place] [address] Care Team Providers Care Transfer Man Name Role Phone Ayaka Salgado MD Primary Care Provider [phone] Encounter Details Date Type Department Care Team ([facility] st Contact Info) Description 08/20/2024 Orders Only [facility] CH[facility] MED & PEDS [address] [place] [address] Ayaka Salgado MD [address] [place] [address] Social History Tobacco Use Types Packs/Day Years [...] ([facility] st Contact Info) Description 08/17/2025 9:00 AM EST Clinical Support [facility] CHC MED & PEDS [address] [place] [address] Alana Hook, RACHELLE [address] [place] [address] documented as of this encounter Visit Diagnoses Not on filedocumented in this encounter Additional Health Concerns Assessment Noted Time PHQ-9 Depression Total Score: 7 08/29/20 22 10:26 AM EST documented as of this encounter Care Teams Transfer Man Relationship Specialty Start Date End Date Ayaka Salgado MD [address] [place] [address] PCP - General Internal Medicine 09/15/18 documented as of this encounter
--- OUTSIDE RECORDS SUMMARY | 2025-07-25 13:44 | XMS_ITS ---
Author Organization [facility] Address [address] [place] [address] Care Team Providers Care Auxiliary Plant Operator Name Role Phone Ayaka Salgado Adriel Primary Care Provider [phone] Transplant Episode Kidney Candidate [facility] ([place], [place]) - [facility] waitlisted on 06/16/2025 Marked as Inactive on 06/16/2025 Reason: Candidate Workup Incomplete Kidney CoordinatorShima Springer RN Email: N/A Scores Score Value Updated Exceptions/Reas ons CPRA 0 06/20/2025 EPTS (Calc) 46 07/25/2025 Platinum Organ Diagnosis Organ Primary Contributory Kidney Diabetes Mellitus - Type II Care Team Name Role Phone Fax Email Shima Springer RN Kidney Coordinator [phone] N/A Ross Baldwin Referring Physician [phone] N/A Events Pre-Transplant Referred: 07/19/2024 Evaluation began: 07/29/2024 Committee: 06/15/2025 Center waitlisted: 06/16/2025 Appointments (06/24/2025 - 08/24/2025) When With Visit Type Description 06/28/2025 Transplant - Maddy Holman Follow Up 06/28/2025 Transplant - Olman Duarte Follow Up Pre -transplant evaluation for kidney transplant (Primary Dx); Dyspnea, unspecified type; Stage 4 chronic kidney disease
--- OUTSIDE RECORDS SUMMARY | 2025-07-25 13:44 | XMS_ITS | Clinical Summary ---
Author Organization [facility] Address [address] [place] [address] [place] [address] Phone Care Team Providers Care Punchboard Inserter Name Role Phone Jayme Salgado MD Primary Care Provider [phone] Allergies Active Allergy Reactions Criticality Noted Date [...] Influenza Vaccine (#1) 2025 Insurance UHC Medicare [facility] Medicare Care Teams Punchboard Inserter Relationship Specialty Start Date End Date Jayme Salgado MD [address] [place], [place] [address]D[place] PCP - General 09/25/20
--- OUTSIDE RECORDS SUMMARY | 2025-07-25 13:45 | XMS_ITS | Encounter Summary ---
Author Organization [employer] Address [address] [facility] 7 [place] [address] Care Team Providers Care Supervisor Mill Name Role Phone Ayaka Salgado MD Primary Care Provider [phone] Reason for Visit * Reason Onset Date Comments r/s appt 08/23/2022 Encounter Details Date Type Department Care Team ([facility] st Contact Info) Description 08/23/2022 Telephone [facility] MEDICINE [address] [place] [address] Ayaka Salgado MD [address] [facility] [place] [address] r/s appt Social History Tobacco Use Types [...] appt has been canceled. Please contact at [phone] documented in this encounter Plan of Treatment Upcoming Encounters Date Type Department Care Team (Late st Contact Info) Description 08/17/2025 9:00 AM EST Clinical Support [facility] CHC MED & PEDS [address] [place] [address] Alana Hook, RACHELLE [address] [place] [address] documented as of this encounter Visit Diagnoses Not on filedocumented in this encounter Care Teams Supervisor Mill Relationship Specialty Start Date End Date Ayaka Salgado MD [address] [place] [address] PCP - General Internal Medicine 09/15/18 documented as of this encounter
--- OUTSIDE RECORDS SUMMARY | 2025-07-25 13:45 | XMS_ITS | Encounter Summary ---
Author Organization [employer] Address [address] [facility] 7 [place] [address] Care Team Providers Care Hand Cutter Name Role Phone Ayaka Salgado MD Primary Care Provider [phone] Reason for Visit * Reason Onset Date Comments Med Refill 02/28/2025 Encounter Details Date Type Department Care Team ([facility] st Contact Info) Description 02/28/2025 Telephone [facility] MEDICINE [address] [place], [place] [phone] Ayaka Salgado MD [address] [facility] [place] [address] Med Refill Social History Tobacco Use Types [...] 5-325 MG tablet To be sent to: [id number] - [place] - [address] [facility] documented in this encounter Plan of Treatment Upcoming Encounters Date Type Department Care Team ([facility] st Contact Info) Description 08/17/2025 9:00 AM EST Clinical Support [facility] CHC MED & PEDS [address] [facility] [place] [address] Alana Hook, RACHELLE [address] [facility] [place] [address] documented as of this encounter Visit Diagnoses Not on filedocumented in this encounter Additional Health Concerns Assessment Noted Time PHQ-9 Depression Total Score: 12 025 11:13 AM EDT documented as of this encounter Care Teams Hand Cutter Relationship Specialty Start Date End Date Ayaka Salgado MD [address] [place] [address] PCP - General Internal Medicine 09/15/18 documented as of this encounter
--- OUTSIDE RECORDS SUMMARY | 2025-07-25 13:45 | XMS_ITS | Encounter Summary ---
Author Organization [employer] Address 75 [facility] 7 [place] [address] Care Team Providers Care Genetic Physician Name Role Phone Ayaka Salgado MD Primary Care Provider [phone] Reason for Visit * Reason Onset Date Comments Med Refill 08/09/2024 Encounter Details Date Type Department Care Team ([facility] st Contact Info) Description 08/09/2024 Telephone [facility] 230 [place], [place] [phone] Ayaka Salgado MD 505 [facility] [place] [address] Med Refill Social History Tobacco Use Types [...] 5-325 MG tablet To be sent to: [facility][id number] documented in this encounter Plan of Treatment Upcoming Encounters Date Type Department Care Team ([facility] st Contact Info) Description 08/17/2025 9:00 AM EST Clinical Support [facility]S 505 [place] [address] Alana Hook RN 505 [place] [address] documented as of this encounter Visit Diagnoses Not on filedocumented in this encounter Additional Health Concerns Assessment Noted Time PHQ-9 Depression Total Score: 7 08/29/20 22 10:26 AM EST documented as of this encounter Care Teams Genetic Physician Relationship Specialty Start Date End Date Ayaka Salgado MD 505 [place] [address] PCP - General Internal Medicine 09/15/18 documented as of this encounter
--- OUTSIDE RECORDS SUMMARY | 2025-07-25 13:45 | XMS_ITS | Encounter Summary ---
Author Organization [employer] Address 75 [facility] 7t [place] [address] Care Team Providers Care Distribution Spec Name Role Phone Ayaka Salgado MD Primary Care Provider [phone] Encounter Details Date Type Department Care Team (Late st Contact Info) Description 10/11/2022 Orders Only [facility] MEDICINE [address] [place] [address] Ayaka Salgado MD [address] [place] [phone] Congestive heart failure, unspecified HF chronicity, unspecified [...] [facility] st Contact Info) Description 08/17/2025 9:00 AM EST Clinical Support [facility] MED & PEDS 505 [place] [address] Alana Hook RN 505 [place] [address] documented as of this encounter Visit Diagnoses Diagnosis Congestive heart failure, unspecified HF chronicity, unspecified heart failure type (HCC) Edema of foot Edema documented in this encounter Additional Health Concerns Assessment Noted Time PHQ-9 Depression Total Score: 7 08/29/20 22 10:26 AM EST documented as of this encounter Care Teams Distribution Spec Relationship Specialty Start Date End Date Ayaka Salgado MD 505 [place] [address] PCP - General Internal Medicine 09/15/18 documented as of this encounter
--- OUTSIDE RECORDS SUMMARY | 2025-07-25 13:45 | XMS_ITS | Encounter Summary ---
Author Organization [employer] Address 75 [facility] 7 [place] [address] Care Team Providers Care Operating Room Tech Name Role Phone Ayaka Salgado MD Primary Care Provider [phone] Reason for Visit * Reason Onset Date Comments Med Refill 09/29/2024 Encounter Details Date Type Department Care Team (Late st Contact Info) Description 09/29/2024 Refill [facility] MEDICINE 230 [place] [address] Ayaka Salgado MD [address] [facility] [facility] [address] [place] [phone] Arthropathy (Primary Dx) Social History Tobacco Use [...] 5-325 MG tablet To be sent to: [facility] #[id number] - [place] - [address] [facility] documented in this encounter Plan of Treatment Upcoming Encounters Date Type Department Care Team ([facility] st Contact Info) Description 08/17/2025 9:00 AM EST Clinical Support [facility] CHC MED & PEDS 505 [place] [address] Alana Hook RN 505 [place] [address] documented as of this encounter Visit Diagnoses Diagnosis Arthropathy- Primary Unspecified arthropathy, site unspecified documented in this encounter Additional Health Concerns Assessment Noted Time PHQ-9 Depression Total Score: 7 08/29/20 22 10:26 AM EST documented as of this encounter Care Teams Operating Room Tech Relationship Specialty Start Date End Date Ayaka Salgado MD 505 [facility] [place] [address] PCP - General Internal Medicine 09/15/18 documented as of this encounter
--- OUTSIDE RECORDS SUMMARY | 2025-07-25 13:45 | XMS_ITS | Encounter Summary ---
Author Organization [employer] Address 75 [facility] 7 [place] [address] Care Team Providers Care Lightning Rod Erector Name Role Phone Ayaka Salgado MD Primary Care Provider [phone] Reason for Visit * Reason Onset Date Comments Med Refill 07/31/2023 Encounter Details Date Type Department Care Team ([facility] st Contact Info) Description 07/31/2023 Telephone [facility] MEDICINE 230 [place], [place] [phone] Ayaka Salgado MD 505 [facility] [place] [address] Med Refill Social History Tobacco Use Types [...] [facility] MED & PEDS 505 [place] [address] Alana Hook, RACHELLE 505 [place] [address] documented as of this encounter Visit Diagnoses Not on filedocumented in this encounter Additional Health Concerns Assessment Noted Time PHQ-9 Depression Total Score: 7 08/29/20 22 10:26 AM EST documented as of this encounter Care Teams Lightning Rod Erector Relationship Specialty Start Date End Date Ayaka Salgado MD 505 [place] [address] PCP - General Internal Medicine 09/15/18 documented as of this encounter
--- OUTSIDE RECORDS SUMMARY | 2025-07-25 13:45 | XMS_ITS | Encounter Summary ---
Author Organization [employer] Address [address] [place] [address] 7t [place] [address] Care Team Providers Care Community Health Program Coordinator Name Role Phone Ayaka Salgado MD Primary Care Provider [phone] Encounter Details Date Type Department Care Team (Late st Contact Info) Description 01/23/2023 Abstract [facility] Information Management 230 [place] [address] Ayaka Salgado MD 505 [place], [place] [phone] Social History Tobacco Use Types Packs/Day Years [...] [facility] 505 [place] [address] Alana Hook, RACHELLE 505 [place] [address] documented as of this encounter Visit Diagnoses Not on filedocumented in this encounter Additional Health Concerns Assessment Noted Time PHQ-9 Depression Total Score: 7 08/29/20 22 10:26 AM EST documented as of this encounter Care Teams Community Health Program Coordinator Relationship Specialty Start Date End Date Ayaka Salgado MD 505 [place] [address] PCP - General Internal Medicine 09/15/18 documented as of this encounter
--- OUTSIDE RECORDS SUMMARY | 2025-07-25 13:45 | XMS_ITS | Encounter Summary ---
Author Organization [employer] Address 75 [facility] 7t [place] [address] Care Team Providers Care Freelance Photographer Name Role Phone Ayaka Salgado MD Primary Care Provider [phone] Encounter Details Date Type Department Care Team (Late st Contact Info) Description 04/29/[address] [facility] MEDICINE 230 [place] [address] Ayaka Salgado MD [address] [place] [phone] Social History Tobacco Use Types Packs/Day Years [...] 10 MG tablet To be sent to: [facility] #[id number] - [place], [place] - [address] [facility] [address] documented in this encounter Plan of Treatment Upcoming Encounters Date Type Department Care Team (Late st Contact Info) Description 08/17/2025 9:00 AM EST Clinical Support [facility] MED & PEDS 505 [place] [address] Alana Hook RN 505 [place] [address] documented as of this encounter Visit Diagnoses Not on filedocumented in this encounter Additional Health Concerns Assessment Noted Time PHQ-9 Depression Total Score: 7 08/29/20 22 10:26 AM EST documented as of this encounter Care Teams Freelance Photographer Relationship Specialty Start Date End Date Ayaka Salgado MD 505 [place] [address] PCP - General Internal Medicine 09/15/18 documented as of this encounter
--- OUTSIDE RECORDS SUMMARY | 2025-07-25 13:45 | XMS_ITS | Encounter Summary ---
Author Organization [employer] Address 75 [facility] 7 [place] [address] Care Team Providers Care Ion Exchange Operator Name Role Phone Ayaka Salgado MD Primary Care Provider [phone] Reason for Visit * Reason Onset Date Comments Med Refill 01/19/2025 Encounter Details Date Type Department Care Team ([facility] st Contact Info) Description 01/19/2025 Telephone [facility] MEDICINE 230 [place], [place] [phone] Ayaka Salgado MD 505 [facility] [place] [address] Med Refill Social History Tobacco Use Types [...] refills and Ambien to soon for refill CNC OPERATOR PROGRAMMER checked on 01/19/25 last filled on 12/26/24 #30. * Telephone Encounter - Cleopatra Ortiz - 01/19/2025 8:14 AM EDT TC from pt requesting medication refill. Medications needing refill : melatonin 5 MG tablet zolpidem (Ambien) 10 MG tablet To be sent to: [facility] #[id number] - [place], [place] - [address] [facility] [place] documented in this encounter Plan of Treatment Upcoming Encounters Date Type Department Care Team ([facility] st Contact Info) Description 08/17/2025 9:00 AM EST Clinical Support [facility] CH[facility] MED & PEDS 505 [place] [address] Alana Hook, RACHELLE 505 [place] [address] documented as of this encounter Visit Diagnoses Not on filedocumented in this encounter Additional Health Concerns Assessment Noted Time PHQ-9 Depression Total Score: 12 025 11:13 AM EDT documented as of this encounter Care Teams Ion Exchange Operator Relationship Specialty Start Date End Date Ayaka Salgado MD 505 [place] [address] PCP - General Internal Medicine 09/15/18 documented as of this encounter
--- OUTSIDE RECORDS SUMMARY | 2025-07-25 13:45 | XMS_ITS | Encounter Summary ---
Author Organization [employer] Address [address] [place] [address] Care Team Providers Care Crematorium Operator Name Role Phone Ayaka Salgado MD Primary Care Provider [phone] Reason for Visit * Reason Onset Date Comments Med Refill 12/12/2022 Encounter Details Date Type Department Care Team ([facility] st Contact Info) Description 12/12/2022 Telephone [facility] 505 [place] [address] Ayaka Salgado MD 505 [place] [address] Med Refill Social History Tobacco Use Types [...] (Norvasc) 5 MG tablet Please sent to [facility] #[id number] - [place] - [address] [facility] documented in this encounter Plan of Treatment Upcoming Encounters Date Type Department Care Team ([facility] st Contact Info) Description 08/17/2025 9:00 AM EST Clinical Support [facility] CHC MED & PEDS 505 [place] [address] Alana Hook, RN 505 [place] [address] documented as of this encounter Visit Diagnoses Not on filedocumented in this encounter Additional Health Concerns Assessment Noted Time PHQ-9 Depression Total Score: 7 08/29/20 22 10:26 AM EST documented as of this encounter Care Teams Crematorium Operator Relationship Specialty Start Date End Date Ayaka Salgado MD 505 [place] [address] PCP - General Internal Medicine 09/15/18 documented as of this encounter
--- OUTSIDE RECORDS SUMMARY | 2025-07-25 13:45 | XMS_ITS | Encounter Summary ---
Author Organization [employer] Address 75 [facility] 7 [place] [address] Care Team Providers Care Job Press Operator Name Role Phone Ayaka Salgado MD Primary Care Provider [phone] Reason for Visit * Reason Onset Date Comments Med Refill 01/19/2025 Encounter Details Date Type Department Care Team ([facility] st Contact Info) Description 01/19/2025 Telephone [facility] MEDICINE 230 [place], [place] [phone] Ayaka Salgado MD 505 [facility] [place] [address] Med Refill Social History Tobacco Use Types [...] 5-325 MG tablet To be sent to: [facility] #[id number] - [place] - [address] [facility] documented in this encounter Plan of Treatment Upcoming Encounters Date Type Department Care Team ([facility] st Contact Info) Description 08/17/2025 9:00 AM EST Clinical Support [facility] CH[facility] MED & PEDS 505 [facility] [place] [address] Alana Hook, RACHELLE [address] [facility] [place] [address] documented as of this encounter Visit Diagnoses Not on filedocumented in this encounter Additional Health Concerns Assessment Noted Time PHQ-9 Depression Total Score: 12 025 11:13 AM EDT documented as of this encounter Care Teams Job Press Operator Relationship Specialty Start Date End Date Ayaka Salgado MD [address] [place] [address] PCP - General Internal Medicine 09/15/18 documented as of this encounter
--- OUTSIDE RECORDS SUMMARY | 2025-07-25 13:45 | XMS_ITS | Encounter Summary ---
Author Organization [employer] Address 75 [facility] 7t [place] [address] Care Team Providers Care Certified First Assistant Name Role Phone Ayaka Salgado MD Primary Care Provider [phone] Reason for Visit * Reason Comments Med Refill Encounter Details Date Type Department Care Team ([facility] st Contact Info) Description 06/15/2024 Refill [facility] MEDICINE 230 [place], [place] [phone] Lev Gentile MD 230 [place], [place] [phone] Chronic pruritus Social History Tobacco Use Types [...] [facility] MED & PEDS 505 [place] [address] Alana Hook, RACHELLE 505 [place] [address] documented as of this encounter Visit Diagnoses Diagnosis Chronic pruritus documented in this encounter Additional Health Concerns Assessment Noted Time PHQ-9 Depression Total Score: 7 08/29/20 22 10:26 AM EST documented as of this encounter Care Teams Certified First Assistant Relationship Specialty Start Date End Date Ayaka Salgado MD 505 [place] [address] PCP - General Internal Medicine 09/15/18 documented as of this encounter
--- OUTSIDE RECORDS SUMMARY | 2025-07-25 13:45 | XMS_ITS | Encounter Summary ---
Author Organization [employer] Address [address] [place] [address] 7 [place] [address] Care Team Providers Care Road Worker Name Role Phone Ayaka Salgado MD Primary Care Provider [phone] Reason for Visit * Reason Comments Med Refill Encounter Details Date Type Department Care Team ([facility] st Contact Info) Description 02/24/2023 Refill [facility] CHC MED & PEDS 505 [place] [address] Ayaka Salgado MD 505 [place] [address] Social History Tobacco Use Types Packs/Day Years [...] Upcoming Encounters Date Type Department Care Team ([facility] st Contact Info) Description 08/17/2025 9:00 AM EST Clinical Support [facility] MED & PEDS 505 [place] [address] Alana Hook, RN 505 [place] [address] documented as of this encounter Visit Diagnoses Not on filedocumented in this encounter Additional Health Concerns Assessment Noted Time PHQ-9 Depression Total Score: 7 08/29/20 22 10:26 AM EST documented as of this encounter Care Teams Road Worker Relationship Specialty Start Date End Date Ayaka Salgado MD 505 [place] [address] PCP - General Internal Medicine 09/15/18 documented as of this encounter
--- OUTSIDE RECORDS SUMMARY | 2025-07-25 13:45 | XMS_ITS | Encounter Summary ---
Author Organization [employer] Address [address] [place] [address] 7t [place] [address] Care Team Providers Care Fractionation Supervisor Name Role Phone Ayaka Salgado MD Primary Care Provider [phone] Encounter Details Date Type Department Care Team (Late st Contact Info) Description 02/19/2023 Abstract [place] [facility] Information Management 230 [place] [address] Ayaka Salgado MD 505 [place], [place] [phone] Social History Tobacco Use Types Packs/Day Years [...] Description 08/17/2025 9:00 AM EST Clinical Support [facility] MED & PEDS 505 [place] [address] Alana Hook, RACHELLE 505 [place] [address] documented as of this encounter Visit Diagnoses Not on filedocumented in this encounter Additional Health Concerns Assessment Noted Time PHQ-9 Depression Total Score: 7 08/29/20 22 10:26 AM EST documented as of this encounter Care Teams Fractionation Supervisor Relationship Specialty Start Date End Date Ayaka Salgado MD 505 [place] [address] PCP - General Internal Medicine 09/15/18 documented as of this encounter
--- OUTSIDE RECORDS SUMMARY | 2025-07-25 13:45 | XMS_ITS | Encounter Summary ---
Author Organization [employer] Address [address] [place] [address] 7 [place] [address] Care Team Providers Care Home Aide Name Role Phone Ayaka Salgado MD Primary Care Provider [phone] Reason for Visit * Reason Comments Med Refill Encounter Details Date Type Department Care Team ([facility] Contact Info) Description 07/28/2023 Refill [facility] MED & PEDS 505 [place] [address] Ayaka Salgado MD 505 [place] [address] Social History Tobacco Use Types Packs/Day Years [...] Description 08/17/2025 9:00 AM EST Clinical Support [facility] MED & PEDS 505 [place] [address] Alana Hook, RACHELLE 505 [place] [address] documented as of this encounter Visit Diagnoses Not on filedocumented in this encounter Additional Health Concerns Assessment Noted Time PHQ-9 Depression Total Score: 7 08/29/20 22 10:26 AM EST documented as of this encounter Care Teams Home Aide Relationship Specialty Start Date End Date Ayaka Salgado MD 505 [place] [address] PCP - General Internal Medicine 09/15/18 documented as of this encounter
--- OUTSIDE RECORDS SUMMARY | 2025-07-25 13:45 | XMS_ITS | Encounter Summary ---
Author Organization [employer] Address 75 [facility] 7t [place] [address] Care Team Providers Care Parts Data Writer Name Role Phone Ayaka Salgado MD Primary Care Provider [phone] Encounter Details Date Type Department Care Team ([facility] st Contact Info) Description 09/22/2023 Orders Only [facility] CHC MED & PEDS 505 [place] [address] Ayaka Salgado MD 505 [place], [place] [phone] Simple chronic bronchitis (CMS/HCC) (Primary Dx) Social [...] - [facility]EDS 505 [place] [address] Alana Hook, RACHELLE 505 [place] [address] documented as of this encounter Visit Diagnoses Diagnosis Simple chronic bronchitis (CMS/HCC) (HCC)- Primary Simple chronic bronchitis documented in this encounter Additional Health Concerns Assessment Noted Time PHQ-9 Depression Total Score: 7 08/29/20 22 10:26 AM EST documented as of this encounter Care Teams Parts Data Writer Relationship Specialty Start Date End Date Ayaka Salgado MD 505 [place] [address] PCP - General Internal Medicine 09/15/18 documented as of this encounter
--- OUTSIDE RECORDS SUMMARY | 2025-07-25 13:45 | XMS_ITS ---
Author Organization [facility] [employer] Address [address] [place] [address] 7 [place] [address] Care Team Providers Care Produce Service Team Member Name Role Phone Ayaka Salgado MD Primary Care Provider [phone] PATENT CLERK Status:Enrolled (Active) Start date:12/20/2022 Enrollment date:12/20/2022 Case Team Name Relationship Phone Alana Hook RN(Responsible Staff) Registered Nurse Continued Care and Services Coordination
--- OUTSIDE RECORDS SUMMARY | 2025-07-25 13:45 | XMS_ITS | Encounter Summary ---
Author Organization [employer] Address [address] [place] [address] 7 [place] [address] Care Team Providers Care Polymer Tester Name Role Phone Ayaka Salgado MD Primary Care Provider [phone] Reason for Visit * Reason Onset Date Comments Nurse Triage 02/04/2025 Encounter Details Date Type Department Care Team ([facility] st Contact Info) Description 02/04/2025 Telephone [facility] CHC MED & PEDS 505 [place] [address] Ayaka Salgado MD 505 [place] [address] Nurse Triage Social History Tobacco Use Types [...] - 02/04/2025 1:44 PM EDT Tc from child care associate teacher Jaleel stating pt had cardiac procedure done. Jaleel reported pt removed bandage and is bleeding. Cage Fighter advise will send a message to triage nurse. Contact pt at [phone] If any questions Jaleel at [phone] ext [phone] documented in this encounter Plan of Treatment Upcoming Encounters Date Type Department Care Team (Late st Contact Info) Description 08/17/2025 9:00 AM EST Clinical Support [facility] MED & PEDS 505 [place] [address] Alana Hook, RACHELLE 505 [place] [address] documented as of this encounter Visit Diagnoses Diagnosis Arthropathy Unspecified arthropathy, site unspecified documented in this encounter Additional Health Concerns Assessment Noted Time PHQ-9 Depression Total Score: 12 025 11:13 AM EDT documented as of this encounter Care Teams Polymer Tester Relationship Specialty Start Date End Date yAaka Salgado MD [address] [place] [address] PCP - General Internal Medicine 09/15/18 documented as of this encounter
--- OUTSIDE RECORDS SUMMARY | 2025-07-25 13:45 | XMS_ITS | Encounter Summary ---
Author Organization [employer] Address 75 [facility] 7t [place] [address] Care Team Providers Care Internet Programmer Name Role Phone Ayaka Salgado MD Primary Care Provider [phone] Reason for Visit * Reason Comments Med Refill Encounter Details Date Type Department Care Team (Late st Contact Info) Description 03/02/2024 Refill [facility] MEDICINE 230 [place] [address] Ayaka Salgado MD [address] [facility] [address] [place] [phone] Primary osteoarthritis involving multiple joints Social History [...] [facility] MED & PEDS 505 [place] [address] Alana Hook RN 505 [place] [address] documented as of this encounter Visit Diagnoses Diagnosis Primary osteoarthritis involving multiple joints documented in this encounter Additional Health Concerns Assessment Noted Time PHQ-9 Depression Total Score: 7 08/29/20 22 10:26 AM EST documented as of this encounter Care Teams Internet Programmer Relationship Specialty Start Date End Date Ayaka Salgado MD 505 [place] [address] PCP - General Internal Medicine 09/15/18 documented as of this encounter
--- OUTSIDE RECORDS SUMMARY | 2025-07-25 13:45 | XMS_ITS | Encounter Summary ---
Author Organization [employer] Address 75 [facility] 7 [place] [address] Care Team Providers Care Tribal Council Member Name Role Phone Ayaka Salgado MD Primary Care Provider [phone] Reason for Visit * Reason Comments Med Refill Encounter Details Date Type Department Care Team (Late st Contact Info) Description 10/07/2022 Refill [facility] [address] [place] [address] Ayaka Salgado MD [address] [facility] [place] [address] Primary osteoarthritis involving multiple joints Social History [...] EST Clinical Support [facility] MED & PEDS 505 [place] [address] Alana Hook, RACHELLE 505 [place] [address] documented as of this encounter Visit Diagnoses Diagnosis Primary osteoarthritis involving multiple joints documented in this encounter Additional Health Concerns Assessment Noted Time PHQ-9 Depression Total Score: 7 08/29/20 22 10:26 AM EST documented as of this encounter Care Teams Tribal Council Member Relationship Specialty Start Date End Date Ayaka Salgado MD 505 [place] [address] PCP - General Internal Medicine 09/15/18 documented as of this encounter
--- OUTSIDE RECORDS SUMMARY | 2025-07-25 13:45 | XMS_ITS | Encounter Summary ---
Author Organization [employer] Address 75 [facility] 7 [place] [address] Care Team Providers Care Purchasing Internship Name Role Phone Ayaka Salgado MD Primary Care Provider [phone] Reason for Visit * Reason Onset Date Comments Med Refill 02/08/2025 Encounter Details Date Type Department Care Team ([facility] st Contact Info) Description 02/08/2025 Telephone [facility] MEDICINE 230 [place], [place] [phone] Ayaka Salgado MD 505 [facility] [place] [address] Med Refill Social History Tobacco Use Types [...] requesting status of medication. Contact pt at [phone] * Telephone Encounter - Cleopatra Ortiz - 02/08/2025 10:21 AM EDT TC from pt requesting medication refill. Medications needing refill : oxyCODONE-acetaminophen (Percocet) 5-325 MG tablet To be sent to: [id number] - [place] - [address] [facility] Sander SANCH[place] documented in this encounter Plan of Treatment Upcoming Encounters Date Type Department Care Team ([facility] st Contact Info) Description 08/17/2025 9:00 AM EST Clinical Support [facility] MED & PEDS 505 [place] [address] Alana Hook, RACHELLE 505 [place] [address] documented as of this encounter Visit Diagnoses Not on filedocumented in this encounter Additional Health Concerns Assessment Noted Time PHQ-9 Depression Total Score: 12 025 11:13 AM EDT documented as of this encounter Care Teams Purchasing Internship Relationship Specialty Start Date End Date Ayaka Salgado MD 505 [place] [address] PCP - General Internal Medicine 09/15/18 documented as of this encounter
--- OUTSIDE RECORDS SUMMARY | 2025-07-25 13:45 | XMS_ITS | Encounter Summary ---
Author Organization [employer] Address [address] [place] [address] 7 [place] [address] Care Team Providers Care Bureau Chief Name Role Phone Ayaka Salgado MD Primary Care Provider [phone] Reason for Visit * Reason Comments Med Refill Encounter Details Date Type Department Care Team ([facility] st Contact Info) Description 01/06/2023 Refill [facility] CHC MED & PEDS 505 [place] [address] Ayaka Salgado MD 505 [place] [address] Primary osteoarthritis involving multiple joints Social History [...] Clinical Support [facility] MED & PEDS 505 [place] [address] Alana Hook RN 505 [place] [address] documented as of this encounter Visit Diagnoses Diagnosis Primary osteoarthritis involving multiple joints documented in this encounter Additional Health Concerns Assessment Noted Time PHQ-9 Depression Total Score: 7 08/29/20 22 10:26 AM EST documented as of this encounter Care Teams Bureau Chief Relationship Specialty Start Date End Date Ayaka Salgado MD 505 [place] [address] PCP - General Internal Medicine 09/15/18 documented as of this encounter
--- OUTSIDE RECORDS SUMMARY | 2025-07-25 13:45 | XMS_ITS | Encounter Summary ---
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 Medications needing refill : glimepiride (Amaryl) 1 MG tablet zolpidem (Ambien) 10 MG tablet To be sent to: [facility][id number] - [place], [place] - [address] [facility] [place] documented in this encounter Plan of Treatment Upcoming Encounters Date Type Department Care Team ([place] st Contact Info) Description 08/17/2025 9:00 AM EST Clinical Support [facility] MED & PEDS 505 [place] [address] Alana Hook, RACHELLE 505 [place] [address] documented as of this encounter Visit Diagnoses Diagnosis 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
--- OUTSIDE RECORDS SUMMARY | 2025-07-25 13:45 | XMS_ITS | Encounter Summary ---
Author Organization [employer] Address [address] [place] [address] Care Team Providers Care Optical Fabricator Name Role Phone Ayaka Salgado MD Primary Care Provider [phone] Reason for Visit * Reason Onset Date Comments Letter Accomodation 12/12/2022 Encounter Details Date Type Department Care Team ([facility] st Contact Info) Description 12/12/2022 Telephone [facility] CHC MED & PEDS 505 [place] [address] Ayaka Salgado MD 505 [place] [address] Letter Accomodation Social History Tobacco Use Types [...] hisPercocet. Advised message will be forwarded to CREPING MACHINE OPERATOR HELPER nurse regarding his request. Pt verbalizes understanding. * Telephone Encounter - Abiel Mills - 12/12/2022 9:32 AM EDT Tc from pt requesting an Accomodation letter. Please contact pt at [phone] documented in this encounter Plan of Treatment Upcoming Encounters Date Type Department Care Team (Late st Contact Info) Description 08/17/2025 9:00 AM EST Clinical Support [facility] MED & PEDS 505 [place] [address] Alana Hook, RN 505 [place] [address] documented as of this encounter Visit Diagnoses Diagnosis Congestive heart failure, unspecified HF chronicity, unspecified heart failure type (HCC) Primary osteoarthritis involving multiple joints documented in this encounter Additional Health Concerns Assessment Noted Time PHQ-9 Depression Total Score: 7 08/29/20 22 10:26 AM EST documented as of this encounter Care Teams Optical Fabricator Relationship Specialty Start Date End Date Ayaka Salgado MD 505 [place] [address] PCP - General Internal Medicine 09/15/18 documented as of this encounter
--- OUTSIDE RECORDS SUMMARY | 2025-07-25 13:45 | XMS_ITS | Encounter Summary ---
Author Organization [employer] Address 75 [facility] 7 [place] [address] Care Team Providers Care Medical Imaging Technologist Name Role Phone Ayaka Salgado MD Primary Care Provider [phone] Reason for Visit * Reason Onset Date Comments Med Refill 12/01/2023 Encounter Details Date Type Department Care Team ([facility] st Contact Info) Description 12/01/2023 Telephone [facility] MEDICINE [address] [place], [place] [phone] Ayaka Salgado MD 505 [facility] [place] [address] Med Refill Social History Tobacco Use Types [...] 10 MG tablet To be sent to: [facility] #[id number] - [place] - [address] [facility] documented in this encounter Plan of Treatment Upcoming Encounters Date Type Department Care Team ([facility] st Contact Info) Description 08/17/2025 9:00 AM EST Clinical Support [facility] MED & PEDS 505 [facility] [place] [address] Alana Hook, RACHELEL 505 [facility] [place] [address] documented as of this encounter Visit Diagnoses Not on filedocumented in this encounter Additional Health Concerns Assessment Noted Time PHQ-9 Depression Total Score: 7 08/29/20 22 10:26 AM EST documented as of this encounter Care Teams Medical Imaging Technologist Relationship Specialty Start Date End Date Ayaka Salagdo MD 505 [facility] [place] [address] PCP - General Internal Medicine 09/15/18 documented as of this encounter
--- OUTSIDE RECORDS SUMMARY | 2025-07-25 13:45 | XMS_ITS | Encounter Summary ---
Author Organization [employer] Address 75 [facility] 7t [place] [address] Care Team Providers Care Welding Teacher Name Role Phone Ayaka Salgado MD Primary Care Provider [phone] Encounter Details Date Type Department Care Team ([facility] st Contact Info) Description 05/26/2024 Orders Only [facility] CHC MED & PEDS 505 [place] [address] Ayaka Salgado MD 505 [place], [place] [phone] Simple chronic bronchitis (CMS/HCC) (Primary Dx) Social [...] [facility] MED & PEDS 505 [place] [address] Alana Hook, RACHELLE 505 [place] [address] documented as of this encounter Visit Diagnoses Diagnosis Simple chronic bronchitis (CMS/HCC) (HCC)- Primary Simple chronic bronchitis documented in this encounter Additional Health Concerns Assessment Noted Time PHQ-9 Depression Total Score: 7 08/29/20 22 10:26 AM EST documented as of this encounter Care Teams Welding Teacher Relationship Specialty Start Date End Date Aayka Salgado MD 505 [place] [address] PCP - General Internal Medicine 09/15/18 documented as of this encounter
--- OUTSIDE RECORDS SUMMARY | 2025-07-25 13:45 | XMS_ITS | Encounter Summary ---
Author Organization [email or web address] Address 75 [facility] 7 [place] [address] Care Team Providers Care Supervisor Intermediates Name Role Phone Ayaka Salgado MD Primary Care Provider [phone] Reason for Visit * Reason Onset Date Comments Med Refill 08/05/2024 Encounter Details Date Type Department Care Team ([facility] st Contact Info) Description 08/05/2024 Refill [facility] CHC MED & PEDS 505 [place] [address] Ayaka Salgado MD [address] [place] [address] Back pain, unspecified back location, unspecified back [...] 5-325 MG tablet To be sent to: [facility] #[id number] - [place], [place] - [address] [facility] [place] documented in this encounter Plan of Treatment Upcoming Encounters Date Type Department Care Team (Late st Contact Info) Description 08/17/2025 9:00 AM EST Clinical Support [facility] MED & PEDS 505 [place] [address] Alana Hook, RN [address] [place] [address] documented as of this encounter Visit Diagnoses Diagnosis Back pain, unspecified back location, unspecified back pain laterality, unspecified chronicity- Primary documented in this encounter Additional Health Concerns Assessment Noted Time PHQ-9 Depression Total Score: 7 08/29/20 22 10:26 AM EST documented as of this encounter Care Teams Supervisor Intermediates Relationship Specialty Start Date End Date Ayaka Salgado MD [address] [place] [address] PCP - General Internal Medicine 09/15/18 documented as of this encounter
--- OUTSIDE RECORDS SUMMARY | 2025-07-25 13:45 | XMS_ITS | Encounter Summary ---
Author Organization [employer] Address 75 [facility] 7 [place] [address] Care Team Providers Care Citrus Fruit Colorer Name Role Phone Ayaka Salgado MD Primary Care Provider [phone] Reason for Visit * Reason Onset Date Comments Med Refill 01/25/2025 Encounter Details Date Type Department Care Team ([facility] st Contact Info) Description 01/25/2025 Telephone [facility] MEDICINE [address] [place], [place] [phone] Ayaka Salgado MD 505 [facility] [place] [address] Med Refill Social History Tobacco Use Types [...] 10 MG tablet To be sent to: [facility] #[id number] [place] - [address] [facility] [place] documented in this encounter Plan of Treatment Upcoming Encounters Date Type Department Care Team (Late st Contact Info) Description 08/17/2025 9:00 AM EST Clinical Support [facility] MED & PEDS [address] [place] [address] Alana Hook RN [address] [place] [address] documented as of this encounter Visit Diagnoses Not on filedocumented in this encounter Additional Health Concerns Assessment Noted Time PHQ-9 Depression Total Score: 12 025 11:13 AM EDT documented as of this encounter Care Teams Citrus Fruit Colorer Relationship Specialty Start Date End Date Ayaka Salgado MD [address] [place] [address] PCP - General Internal Medicine 09/15/18 documented as of this encounter
--- OUTSIDE RECORDS SUMMARY | 2025-07-25 13:45 | XMS_ITS | Encounter Summary ---
Author Organization [employer] Address [address] [place] [address] 7 [place] [address] Care Team Providers Care Screen Cleaner Name Role Phone Ayaka Salgado MD Primary Care Provider [phone] Reason for Visit * Reason Onset Date Comments Med Refill 07/28/2023 Encounter Details Date Type Department Care Team ([facility] st Contact Info) Description 07/28/2023 Telephone [facility] CHC MED & PEDS 505 [place] [address] Ayaka Salgado MD 505 [place] [address] Med Refill Social History Tobacco Use Types [...] (Percocet) 5-325 MG tablet Please sent to [facility] #[id number] - [place] - [address] [facility] [place] documented in this encounter Plan of Treatment Upcoming Encounters Date Type Department Care Team ([facility] st Contact Info) Description 08/17/2025 9:00 AM EST Clinical Support [facility] MED & PEDS 505 [place] [address] Alana Hook, RACHELLE 505 [place] [address] documented as of this encounter Visit Diagnoses Not on filedocumented in this encounter Additional Health Concerns Assessment Noted Time PHQ-9 Depression Total Score: 7 08/29/20 22 10:26 AM EST documented as of this encounter Care Teams Screen Cleaner Relationship Specialty Start Date End Date Ayaka Salgado MD 505 [place] [address] PCP - General Internal Medicine 09/15/18 documented as of this encounter
--- OUTSIDE RECORDS SUMMARY | 2025-07-25 13:45 | XMS_ITS | Encounter Summary ---
Author Organization [employer] Address [address] [place] [address] Care Team Providers Care Cryptanalyst Name Role Phone Ayaka Salgado MD Primary Care Provider [phone] Reason for Visit * Reason Onset Date Comments Med Refill 12/12/2022 Encounter Details Date Type Department Care Team ([facility] st Contact Info) Description 12/12/2022 Telephone [facility] MED & PEDS 505 [place] [address] Ayaka Salgado MD 505 [place] [address] Med Refill Social History Tobacco Use Types [...] (Percocet) 5-325 MG tablet Please sent to [facility] #[id number] - [place] - [address] [facility] documented in this encounter Plan of Treatment Upcoming Encounters Date Type Department Care Team (Late st Contact Info) Description 08/17/2025 9:00 AM EST Clinical Support [facility] CHC MED & PEDS 505 [place] [address] Alana Hoko, RN 505 [place] [address] documented as of this encounter Visit Diagnoses Not on filedocumented in this encounter Additional Health Concerns Assessment Noted Time PHQ-9 Depression Total Score: 7 08/29/20 22 10:26 AM EST documented as of this encounter Care Teams Cryptanalyst Relationship Specialty Start Date End Date Ayaka Salgado MD 505 [place] [address] PCP - General Internal Medicine 09/15/18 documented as of this encounter
--- OUTSIDE RECORDS SUMMARY | 2025-07-25 13:45 | XMS_ITS | Encounter Summary ---
Author Organization [employer] Address [address] [place] [address] 7 [place] [address] Care Team Providers Care Paster Supervisor Name Role Phone Ayaka Salgado MD Primary Care Provider [phone] Encounter Details Date Type Department Care Team ([facility] st Contact Info) Description 02/10/2025 Orders Only [facility] CHC MED & PEDS [address] [place] [address] Ayaka Salgado MD 505 [place], [place] [phone] Arthropathy Social History Tobacco Use Types Packs/Day [...] Description 08/17/2025 9:00 AM EST Clinical Support [facility] CHC MED & PEDS [address] [place] [address] Alana Hook, RACHELLE 505 [place] [address] documented as of this encounter Visit Diagnoses Diagnosis Arthropathy Unspecified arthropathy, site unspecified documented in this encounter Additional Health Concerns Assessment Noted Time PHQ-9 Depression Total Score: 12 025 11:13 AM EDT documented as of this encounter Care Teams Paster Supervisor Relationship Specialty Start Date End Date Ayaka Salgado MD 505 [place] [address] PCP - General Internal Medicine 09/15/18 documented as of this encounter
--- OUTSIDE RECORDS SUMMARY | 2025-07-25 13:46 | XMS_ITS | Encounter Summary ---
Author Organization [employer] Address [address] [facility] 7t [place] [address] Care Team Providers Care Teasel Setter Name Role Phone Ayaka Salgado MD Primary Care Provider [phone] Encounter Details Date Type Department Care Team (Late st Contact Info) Description 06/14/2025 Orders Only [facility] CHC MED & PEDS [address] [place] [address] Provider, MD Ran Social History Tobacco Use [...] [facility] st Contact Info) Description 08/17/2025 9:00 AM EST Clinical Support [facility] CHC MED & PEDS 505 [place] [address] Alana Hook RN 505 [place] [address] documented as of this encounter Procedures Procedure [...] documented as of this encounter Care Teams Teasel Setter Relationship Specialty Start Date End Date Ayaka Salgado MD 505 [place] [address] PCP - General Internal Medicine 09/15/18 documented as of this encounter
--- OUTSIDE RECORDS SUMMARY | 2025-07-25 13:46 | XMS_ITS | Encounter Summary ---
Author Organization [employer] Address [address] [place] [address] 7t [place] [address] Care Team Providers Care Quality Assurance Calibrator Name Role Phone Ayaka Salgado MD Primary Care Provider [phone] Encounter Details Date Type Department Care Team ([facility] st Contact Info) Description 03/04/2025 Orders Only [facility] CHC MED & PEDS [address] [place] [address] Ayaka Salgado MD 505 [place] [address] Social History Tobacco Use Types Packs/Day Years [...] [facility] [address] [place] [address] Alana Hook, RACHELLE 505 [place] [address] documented as of this encounter Visit Diagnoses Not on filedocumented in this encounter Additional Health Concerns Assessment Noted Time PHQ-9 Depression Total Score: 12 025 11:13 AM EDT documented as of this encounter Care Teams Quality Assurance Calibrator Relationship Specialty Start Date End Date Ayaka Salgado MD 505 [place] [address] PCP - General Internal Medicine 09/15/18 documented as of this encounter
--- OUTSIDE RECORDS SUMMARY | 2025-07-25 13:46 | XMS_ITS | Encounter Summary ---
Author Organization [employer] Address [address] [place] [address] 7 [place] [address] Care Team Providers Care Volleyball Commentator Name Role Phone Ayaka Salgado MD Primary Care Provider [phone] Reason for Visit * Reason Onset Date Comments Med Refill 05/12/2025 Encounter Details Date Type Department Care Team ([facility] st Contact Info) Description 05/12/2025 Telephone [facility] CHC MED & PEDS [address] [place] [address] Ayaka Salgado MD 505 [place] [address] Med Refill Social History Tobacco Use Types [...] 10:04 AM EDT Medication was sent to [facility] #[id number] on 11/22/24 with 11 refills. * Telephone Encounter - Be Llamas - 05/12/2025 10:00 AM EDT TC from pt requesting medication refill. Medications needing refill : guaiFENesin (Mucinex) 600 MG 12 hr tablet To be sent to: [facility] #[id number] - [place] AT [facility] [place]ander [place] documented in this encounter Plan of Treatment Upcoming Encounters Date Type Department Care Team ([facility] st Contact Info) Description 08/17/2025 9:00 AM EST Clinical Support [facility] MED & PEDS [address] [place] [address] Alana Hook, RACHELLE 505 [place] [address] documented as of this encounter Visit Diagnoses Not on filedocumented in this encounter Additional Health Concerns Assessment Noted Time PHQ-9 Depression Total Score: 12 025 11:13 AM EDT documented as of this encounter Care Teams Volleyball Commentator Relationship Specialty Start Date End Date Ayaka Salgado MD 505 [place] [address] PCP - General Internal Medicine 09/15/18 documented as of this encounter
--- OUTSIDE RECORDS SUMMARY | 2025-07-25 13:46 | XMS_ITS | Encounter Summary ---
Author Organization [employer] Address [address] [place] [address] 7 [place] [address] Care Team Providers Care Analyzer Sales Name Role Phone Ayaka Salgado MD Primary Care Provider [phone] Reason for Visit * Reason Comments Med Refill Encounter Details Date Type Department Care Team ([facility] st Contact Info) Description 03/26/2025 Refill [facility] CHC MED & PEDS [address] [place] [address] Ayaka Salgado MD 505 [place] [address] Social History Tobacco Use Types Packs/Day Years [...] 9:00 AM EST Clinical Support [facility] CHC MED & PEDS 505 [place] [address] Alana Hook, RACHELLE 505 [place] [address] documented as of this encounter Visit Diagnoses Not on filedocumented in this encounter Additional Health Concerns Assessment Noted Time PHQ-9 Depression Total Score: 12 025 11:13 AM EDT documented as of this encounter Care Teams Analyzer Sales Relationship Specialty Start Date End Date Ayaka Salgado MD 505 [place] [address] PCP - General Internal Medicine 09/15/18 documented as of this encounter
--- OUTSIDE RECORDS SUMMARY | 2025-07-25 13:46 | XMS_ITS | Encounter Summary ---
Author Organization [employer] Address [address] [place] [address] 7 [place] [address] Care Team Providers Care Antenna Engineer Name Role Phone Ayaka Salgado MD Primary Care Provider [phone] Reason for Visit * Reason Comments Med Refill Encounter Details Date Type Department Care Team ([facility] st Contact Info) Description 06/22/2025 Refill [facility] MED & PEDS [address] [place] [address] Ayaka Salgado MD 505 [place] [address] Chronic pruritus Social History Tobacco Use Types [...] Description 08/17/2025 9:00 AM EST Clinical Support [facility] CHC MED & PEDS [address] [place] [address] Alana Hook, RACHELLE 505 [place] [address] documented as of this encounter Visit Diagnoses Diagnosis Chronic pruritus documented in this encounter Additional Health Concerns Assessment Noted Time PHQ-9 Depression Total Score: 12 025 11:13 AM EDT documented as of this encounter Care Teams Antenna Engineer Relationship Specialty Start Date End Date Ayaka Salgado MD [address] [place] [address] PCP - General Internal Medicine 09/15/18 documented as of this encounter
== END 2025-07-25 11:46 | disposition home or self-care (01) ==
LOC: HO.HKA 11:24
PROVIDERS: PCP Internal Medicine; Visit Provider Internal Medicine Hypertension Specialist
DX: D64.9 Anemia, unspecified (principal); N18.5 Chronic kidney disease, stage 5; I12.0 Hypertensive chronic kidney disease with stage 5 chronic kidney disease or end stage renal disease; I50.32 Chronic diastolic (congestive) heart failure; E11.8 Type 2 diabetes mellitus with unspecified complications; E66.9 Obesity, unspecified; E21.3 Hyperparathyroidism, unspecified; N40.1 Benign prostatic hyperplasia with lower urinary tract symptoms
CPT/HCPCS: 99214

== ENCOUNTER → 2025-07-25 11:23 | Outpatient (BNVA) | payer MEDICARE, SELFPAY | PROVIDERS: PCP Internal Medicine; Visit Provider Internal Medicine Hypertension Specialist | DX: I13.2 Hypertensive heart and chronic kidney disease with heart failure and with stage 5 chronic kidney disease, or end stage renal disease (principal); E11.22 Type 2 diabetes mellitus with diabetic chronic kidney disease; D63.1 Anemia in chronic kidney disease; N18.5 Chronic kidney disease, stage 5; I50.32 Chronic diastolic (congestive) heart failure; E11.8 Type 2 diabetes mellitus with unspecified complications; E66.9 Obesity, unspecified; E21.3 Hyperparathyroidism, unspecified; Z87.891 Personal history of nicotine dependence | CPT/HCPCS: 96372; 99212; Q5106 ==

== ENCOUNTER 2025-08-03 09:38 | Outpatient (REF) | payer MEDICARE, SELFPAY ==
--- NOTE | ~2025-08-03 | US_ITS ---
CLINICAL HISTORY: I65.22 - Occlusion and stenosis of left carotid artery US Bilateral Carotid Duplex Comparison: US/SR - US CAROTID DOPPLER BILATERAL - 04/12/2024 10:11 AM EDT Findings: Freo-by-lexepkee plaque within the carotid bulb bilaterally. Color doppler and spectral tracings normal. Peak systolic velocities: Right CCA: 93 cm/s. Right ICA: 152 cm/s. ICA/CCA ratio: 1.6. Right ECA: Unremarkable. Right vertebral artery flow antegrade. Left CCA: 107 cm/s. Left ICA: 185 cm/s. ICA/CCA ratio: 1.7. Left ECA: Unremarkable. Left vertebral artery flow antegrade. IMPRESSION: Normal carotid velocities, no significant stenosis (0-49% stenosis) based upon ICA/CCA ratio. There is moderate atherosclerotic disease bilaterally. This document has been electronically signed by: Jayesh Briseno MD on 08/03/2025 12:37:26
--- OUTSIDE RECORDS SUMMARY | 2025-08-03 17:47 | XMS_ITS | Encounter Summary ---
Author Organization [facility] Address [address] [place] [address] Care Team Providers Care Layboy Operator Name Role Phone Ayaka Salgado Primary Care Provider Encounter Details Date Type Department Care Team (Late st Contact Info) Description 07/29/2024 Orders Only [facility] Xray [address] [place] [address] Waqas Garnett MD [address] [place] [address] Social History Tobacco Use Types Packs/Day Years [...] Description 10/17/2025 9:30 AM EST Office Visit [facility] [address] [place] [address] Halver Machine Operator: Lissa Vidal DO [address] [place] [address] [place] [address] 06/13/2026 9:40 AM EDT Follow-Up [facility] Renal Transplant [address] [place] [address] Joey Duarte MD [address] [place] [address] 06/13/2026 10:00 AM EDT Social Work [facility] [address] [place] [address] Hugh Holman documented as of this encounter Visit Diagnoses Not on filedocumented in this encounter Care Teams Layboy Operator Relationship Specialty Start Date End Date Ayaka Salgado [address] [place] [address] PCP - General Internal Medicine 07/29/24 documented as of this encounter
--- OUTSIDE RECORDS SUMMARY | 2025-08-03 17:47 | XMS_ITS ---
Author Organization [facility] Address [address] [place] [address] Care Team Providers Care Fitness Specialist Name Role Phone Ayaka Salgado Primary Care Provider Transplant Episode Kidney Candidate [facility] ([place], [place]) - 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
--- OUTSIDE RECORDS SUMMARY | 2025-08-03 17:48 | XMS_ITS | Encounter Summary ---
Author Organization [employer] Address [address] [facility] 7 [place] [address] Care Team Providers Care Erp Engineer Name Role Phone Ayaka Salgado MD Primary Care Provider [phone] Reason for Visit * Reason Onset Date Comments Med Refill 09/29/2024 Encounter Details Date Type Department Care Team (Late st Contact Info) Description 09/29/2024 Refill [facility] MEDICINE [address] [place] [address] Ayaka Salgado MD [address] [facility] [address] [facility] [address] [place] [id number] Arthropathy (Primary Dx) Social History Tobacco Use [...] your housing situation today? I have haven mtot 06/30/[address] you li [...] 5-325 MG tablet To be sent to: [id number] - [place] - [address] [facility] documented in this encounter Plan of Treatment Upcoming Encounters Date Type Department Care Team ([facility] st Contact Info) Description 08/17/2025 9:00 AM EST Clinical Support [facility] CHC MED & PEDS 505 [place] [address] Alana Hook RN 505 [place] [address] documented as of this encounter Visit Diagnoses Diagnosis Arthropathy- Primary Unspecified arthropathy, site unspecified documented in this encounter Additional Health Concerns Assessment Noted Time PHQ-9 Depression Total Score: 7 08/29/20 22 10:26 AM EST documented as of this encounter Care Teams Erp Engineer Relationship Specialty Start Date End Date Ayaka Salgado MD 505 [facility] [place] [address] PCP - General Internal Medicine 09/15/18 documented as of this encounter
--- OUTSIDE RECORDS SUMMARY | 2025-08-03 17:48 | XMS_ITS | Clinical Summary ---
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 80 g 3 024 Active Januvia 25 MG tabletIndications [...] DAILY 180 tablet 3 025 Active Umeclidinium Harcourt (Incruse Ellipta) 62.5 MCG/ACT aerosol powderIndications :Chronic obstructive pulmonary disease, unspecified COPD type (CMS/HCC) ([facility]) Inhale 1 Act (62.5 mcg) Once per day AND 1 Act (62.5 mcg) Once per day. 30 each Active labetalol (Normodyne) 300 MG tabletIndications :Essential hypertension Take 1 tablet (300 mg) by mouth 2 times daily. 60 tablet 025 2025 Active OneTouch Verio test stripIndications: 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[facility]) USE TO TEST BLOOD SUGAR TWICE A [...] if needed for opioid reversal. 2 each 1 Active guaiFENesin (Mucinex) 600 MG 12 hr tabletIndications :Simple chronic bronchitis (CMS/HCC) ([facility]) Take 2 tablets (1,200 mg) by mouth 2 times daily. 20 tablet Active melatonin 5 MG tabletIndications :Primary insomnia 1 tab of 5 mg at bedtime 90 tablet 1 Active glimepiride (Amaryl) 1 MG tabletIndications :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[facility]) Take 1 tablet (1 mg) by mouth before breakfast. TAKE 1 TABLET(1 MG) BY MOUTH EVERY DAY BEFORE BREAKFAST 90 tablet 3 Active zolpidem (Ambien) 10 MG tabletIndications :Primary insomnia TAKE 1 TABLET BY MOUTH AT BEDTIME NEEDED FOR SLEEP 30 tablet Active gabapentin (Neurontin) 300 MG capsuleIndication s:Chronic pruritus TAKE 1 CAPSULE BY MOUTH THREE TIMES A DAY 90 capsule 3 Active oxyCODONE-acetami nophen (Percocet) 5-325 MG [...] dry skin. 225 g 1 024 2024 gabapentin (Neurontin) 300 MG capsuleIndication s:Chronic pruritus Take 1 capsule (300 mg) by mouth 3 times daily. 90 capsule 11 024 2024 Discontinued(R eorder (will not [...] Diagnosed Date Normocytic anemia 02/22/2025 Atrial fibrillation (CMS/HCC) 02/22/2025 Overview (02/22/2025): Status post Watchman device at [employer]. 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 11/13 Pruritus 07/12/2024 Congestive heart failure 09/24/2022 Acute renal failure syndrome 07/18/2021 Coronary arteriosclerosis 07/18/2021 Diabetic nephropathy associa sergio with type 2 diabetes mellitus 07/18/2021 Hypertensive renal disease 07/18/2021 Chronic obstructive lung disease 05/22/2018 Edema of foot 02/24/2018 CKD (chronic kidney disease), stage III ([facility] ) 02/14/2017 Type 2 diabetes mellitus with nephropathy 2014 Acute bronchitis 11/14/2011 Arthropathy 11/14/2011 Essential hypertension 11/14/2011 Pure hypercholesterolemia 06/06/2011 Hyperparathyroidism 04/29/2011 Resolved Problems Problem Noted Date Diagnosed Date Resolved Date COVID-19 09/13/2022 09/24/2022 Acute upper respiratory infection 11/05/2011 09/24/2022 Encounters Date Type Department Care Team Description 08/03/2025 Refill [facility] CHC MED & PEDS [address] [place] [address] Alana Hook RN Arthropathy 08/03/2025 Telephone [facility] [address] [place] [address] Ayaka Salgado MD Med Refill 08/03/2025 Refill [facility] [address] [place] [address] Ayaka Salgado MD Chronic pruritus 08/03/2025 Orders Only [facility] External Provider, [facility] 07/25/2025 Refill [facility] MED & PEDS [address] [place] [address] Ayaka Salgado MD 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[facility]); Primary insomnia 07/14/2025 Refill [facility] CH[facility] MED & PEDS [address] [place] [address] Ayaka Salgado MD Arthropathy 06/29/2025 Refill [facility] MED [facility] PEDS [address] [place] [address] Ayaka Salgado MD Arthropathy 06/24/2025 Refill [facility] [address] [place] [address] Ayaka Salgado MD Primary insomnia 06/22/2025 Refill [facility] MED [facility] PEDS [address] [place] [address] Ayaka Salgado MD Chronic pruritus 06/14/2025 Orders Only [facility] CH[facility] MED & PEDS [address] [place] [address] Ran Nguyễn MD 06/06/2025 Refill [facility] MED & PEDS [address] [place] [address] Ayaka Salgado MD Arthropathy 05/31/2025 9:00 AM EDT Clinical Support [facility] MED & PEDS [address] [place] [address] Alana Hook RN Back pain, unspecified back location, unspecified back pain laterality, unspecified chronicity 05/31/2025 Refill [facility] MED & PEDS [address] [place] [address] Alana Hook RN Simple chronic bronchitis ([facility]) 05/31/2025 Travel 05/27/2025 Refill [facility] [address] [place] [address] Ayaka Salgado MD Primary insomnia 05/25/2025 Telephone [facility] [address] [place] [address] Ayaka Salgado MD CRITICAL LAB 05/20/2025 Refill [facility] MED & PEDS [address] [place] [address] Ayaka Salgado MD 05/12/2025 Telephone [facility] MED & PEDS [address] [place] [address] Ayaka Salgado MD Med Refill 05/12/2025 Refill [facility] MED & PEDS [address] [place] [address] Ayaka Salgado MD Arthropathy from Last 3 [...] [facility] [address] [place] [address] Alana Hook, RN [address] [place] [address] Health Maintenance Due Date Last Done Comments CT Colonography 1957 Colonoscopy 1957 Colorectal Cancer Screening 1955 FIT DNA/Cologuard 1957 FIT 1957 FOBT 1957 Sigmoidoscopy 1957 Hepatitis C Screening 12/09/1975 Hepatitis A Vaccines (1 of 2 - Risk 2-dose series) 1976 Pneumococcal Vaccine: 50+ Years (1 of 2 - PCV) 1976 DTaP/Tdap/Td Vaccines (1 - Tdap) 09/16/2005 09/15/2005 RSV Patients and Patients Aged 60 years or older (1 - Risk 50-74 years 1-dose series) 12/09/2007 Zoster Vaccines (1 of 2) 12/09/2007 Hepatitis B Vaccines (1 of 3 - Risk 3-dose series) 2017 Diabetes: Foot Exam 10/01/2024 10/01/2023, 10/01/2023, 10/01/2023, Additional history exists Lipid Panel 11/12/2024 11/12/2023 COVID-19 Vaccine ( - season) 2025 08/03/2021, [...] on patient's age to complete this topic Goals Goal Patient Goal Type Associated Problems Recent Progress Patient-Stated? Author Help patients manage their type 2 diabetes Care Plan Help patients manage their type 2 diabetes No Karrie Sánchez Weekly blood pressure task Care Plan Weekly blood pressure task No Karrie Sánchez Help patients manage their type 2 diabetes Care Plan Help patients manage their type 2 diabetes No Karrie Sánchez Patient has chronic kidney disease Care Plan Patient has chronic kidney disease No Karrie Sánchez Weekly blood pressure task Care Plan Weekly blood pressure task No Karrie Sánchez Patient has chronic kidney disease Care Plan Patient has chronic kidney disease No Karrie Sánchez Weekly blood pressure task Care Plan Weekly blood pressure task No Karrie Sánchez Weekly blood pressure task Care Plan Weekly blood pressure task No Karrie Sánchez Patient has chronic kidney disease Care Plan Patient has chronic kidney disease No Karrie Sánchez Patient has chronic kidney disease Care Plan Patient has chronic kidney disease No Karrie Sánchez Weekly blood pressure task Care Plan Weekly blood pressure task No Alana Hook RN Weekly blood pressure task Care Plan Weekly blood pressure task No Alana Hook, RACHELLE Patient has chronic kidney disease Care Plan Patient has chronic kidney disease No Alana Hoko RN Patient has chronic kidney disease Care Plan Patient has chronic kidney disease No Miladys, Alana, bog worker Procedure Name Priority Date/Time Associated Diagnosis Comments [facility] US CAROTID ARTERY DUPLEX BILATERAL Routine 08/03/2025 12:37 PM EST US LIVER ELASTOGRAPHY - FIBROSCAN Routine 06/13/2025 [...] Recently Relevant to Health Maintenance Results * [facility] US Carotid Artery Duplex Bilateral (08/03/2025 12:37 PM EST) 08/03/2025 12:3 7 PM EST [facility] IMAGING - 08/03/2025 12:38 PM EST [address] [address] Ultrasound Report Signed Patient: Lewis Garrison MR#: [id number] : 1955 Acct:[id number] Age/Sex: 69 / M ADM Date: 08/03/25 Loc: .US Attending Dr: Louis Mcfadden MD Ordering Physician: Louis Mcfadden MD Date of Service: 08/03/25 Procedure(s): US carotid duplex BI Accession Number(s): [id number] cc: Ayaka Salgado MD; Louis Mcfadden MD Reason for Exam: I65.22 - Occlusion and stenosis of left carotid artery CLINICAL HISTORY: I65.22 - Occlusion and stenosis of left carotid artery US Bilateral Carotid Duplex Comparison: US/SR - US CAROTID DOPPLER BILATERAL - 04/12/2024 10:11 AM EDT Findings: Nrqb-ii-uizwxhsp plaque within the carotid bulb bilaterally. Color doppler and spectral tracings normal. Peak systolic velocities: Right CCA: 93 cm/s. Right ICA: 152 cm/s. ICA/CCA ratio: 1.6. Right ECA: Unremarkable. Right vertebral artery flow antegrade. Left CCA: 107 cm/s. Left ICA: 185 cm/s. ICA/CCA ratio: 1.7. Left ECA: Unremarkable. Left vertebral artery flow antegrade. IMPRESSION: Normal carotid velocities, no significant stenosis (0-49% stenosis) based upon ICA/CCA ratio. There is moderate atherosclerotic disease bilaterally. This document has been electronically signed by: Jayesh Briseno MD on 08/03/2025 12:37:26 Dictated By: Jayesh Briseno MD Signed By: <Electronically signed by Jayesh Briseno MD in OV> 08/03/25 1238 DD/ 1237 TD/TT: 08/03/25 1237 Research Investigator: Procedure Note Donotuseinterpreter, Image - 08/03/2025 [place] [address] Ultrasound Report Signed Patient: Lewis Garrison#: [id number] : 8Acct:[id number] Age/Sex: 69 / MADM Date: 08/03/25 Loc: HO.US Attending Dr: Louis Mcfadden MD Ordering Physician: Louis Mcfadden MD Date of Service: 08/03/25 Procedure(s): US carotid duplex BI Accession Number(s): [id number] cc: Ayaka Salgado MD; Louis Mcfadden MD Reason for Exam: I65.22 - Occlusion and stenosis of left carotid artery CLINICAL HISTORY: I65.22 - Occlusion and stenosis of left carotid artery US Bilateral Carotid Duplex Comparison: US/SR - US CAROTID DOPPLER BILATERAL - 04/12/2024 10:11 AM EDT Findings: Uomp-uk-qqvjakmw plaque within the carotid bulb bilaterally. Color doppler and spectral tracings normal. Peak systolic velocities: Right CCA: 93 cm/s. Right ICA: 152 cm/s. ICA/CCA ratio: 1.6. Right ECA: Unremarkable. Right vertebral artery flow antegrade. Left CCA: 107 cm/s. Left ICA: 185 cm/s. ICA/CCA ratio: 1.7. Left ECA: Unremarkable. Left vertebral artery flow antegrade. IMPRESSION: Normal carotid velocities, no significant stenosis (0-49% stenosis) based upon ICA/CCA ratio. There is moderate atherosclerotic disease bilaterally. This document has been electronically signed by: Jayesh Briseno MD on 08/03/2025 12:37:26 Dictated By: Jayesh Briseno MD Signed By: <Electronically signed by Jayesh Briseno MD in OV> 08/03/25 1238 DD/ 1237 TD/TT: 08/03/25 1237 Research Investigator: [facility] External Provider CV VASC ULAR PROCEDURES Final Result [facility] IMAGING [address] [place] [phone] * US LIVER ELASTOGRAPHY - FIBROSCAN (06/13/2025 9:33 AM EDT) Anatomical Region Laterality Modality Ultrasound Historical Provider IMG US PROCEDURES Final R esult * POCT [...] AM EDT . Internal Pass Control Lot# [id number] Exp: 07-15-26 Ayaka Salgado MD POINT OF [...] 9:08 AM EST) Triglycerides 55 <150 mg/dL [facility] Comment:Desirable Triglyceri de: less than 150 mg/dLBorderline High Triglyceride 150-199 mg/dLHigh Triglyceride: 200-499 mg/dLVery High Triglyceride: greater than or equal to 5OO mg/dL Cholesterol 101 <200 mg/dL [facility] Comment:Desirable Cholestero l: less than 200 mg/dLBorderline High Cholesterol: 200-239 mg/dLHigh Cholesterol: greater than 239 mg/dL LDL Cholesterol Calculated 57 <100 mg/dL [facility] Comment:Desirable LDL: less than 100 mg/dLNear Optimal/Above Optimal LDL: 110- 129 mg/dLBorderline High LDL: 130-159 mg/dLHigh LDL: 160-189 mg/dLVery High LDL: greater than or equal to 190 mg/dL HDL Cholesterol 33(L) >40 mg/dL [facility] Comment:Desirable HDL: great er than 40 mg/dL Note: This HDL assay may give artificially low results in patients with liver disease. Blood Venous blood specimen / Unknown 11/12/2023 9:08 AM EST 11/12/2023 2:41 PM EST us Ayaka Salgado MD LAB BLOOD ORDERABLES Final Result [facility] [address] [place] [address] [phone] from Last 3 Months or Most Recently Relevant to Health Maintenance Additional Health Concerns Active Problems Noted Date Diagnosed Date Help patients manage their type 2 diabetes 08/03 Weekly blood pressure task 08/03/2025 Help patients manage their type 2 diabetes 08/03 Patient has chronic kidney disease 08/03/2025 Weekly blood pressure task 08/03/2025 Patient has chronic kidney disease 08/03/2025 Weekly blood pressure task 08/03/2025 Weekly blood pressure task 08/03/2025 Patient has chronic kidney disease 08/03/2025 Patient has chronic kidney disease 08/03/2025 Weekly blood pressure task 08/03/2025 Weekly blood pressure task 08/03/2025 Patient has chronic kidney disease 08/03/2025 Patient has chronic kidney disease 08/03/2025 Insurance [facility] MEDICARE ADVANTAGE HMO Care Teams Turning And Beading Machine Operator Relationship Specialty Start Date End Date Ayaka Salgado MD 505 [facility] [place] [address] PCP - General Internal Medicine 09/15/18
--- OUTSIDE RECORDS SUMMARY | 2025-08-03 17:48 | XMS_ITS | Encounter Summary ---
Author Organization [employer] Address [address] [address] 7[address] [place] [address] Care Team Providers Care Commercial Door Installer Name Role Phone Ayaka Salgado MD Primary Care Provider [phone] Encounter Details Date Type Department Care Team (Late st Contact Info) Description 06/25/[address] [facility] CHC MED & PEDS [address] [place] [address] Provider, MD Ran Social History Tobacco Use [...] ([facility] st Contact Info) Description 08/17/2025 9:00 AM EST Clinical Support [facility] MED & PEDS [address] [place] [address] Alana Hook RN [address] [place] [address] documented as of this encounter Procedures Procedure [...] as of this encounter Care Teams Commercial Door Installer Relationship Specialty Start Date End Date Ayaka Salgado MD [address] [place] [address] PCP - General Internal Medicine 09/15/18 documented as of this encounter
--- OUTSIDE RECORDS SUMMARY | 2025-08-03 17:48 | XMS_ITS | Encounter Summary ---
Author Organization [employer] Address [address] [facility] 7t [place] [address] Care Team Providers Care Anatomy Professor Name Role Phone Ayaka Salgado MD Primary Care Provider [phone] Encounter Details Date Type Department Care Team ([facility] st Contact Info) Description 05/26/2024 Orders Only [facility] CHC MED & PEDS [address] [place] [address] Ayaka Salgado MD [address] [place], [place] [id number] Simple chronic bronchitis (CMS/HCC) (Primary Dx) Social [...] Description 08/17/2025 9:00 AM EST Clinical Support [facility] MED & PEDS [address] [place] [address] Alana Hook, RACHELLE [address] [place] [address] documented as of this encounter Visit Diagnoses Diagnosis Simple chronic bronchitis (CMS/HCC) (HCC)- Primary Simple chronic bronchitis documented in this encounter Additional Health Concerns Assessment Noted Time PHQ-9 Depression Total Score: 7 08/29/20 22 10:26 AM EST documented as of this encounter Care Teams Anatomy Professor Relationship Specialty Start Date End Date Ayaka Salgado MD [address] [place] [address] PCP - General Internal Medicine 09/15/18 documented as of this encounter
--- OUTSIDE RECORDS SUMMARY | 2025-08-03 17:48 | XMS_ITS | Encounter Summary ---
Author Organization [employer] Address [address] [facility] 7t [place] [address] Care Team Providers Care Courtesy Bus Driver Name Role Phone Ayaka Salgado MD Primary Care Provider [phone] Reason for Visit * Reason Comments Med Refill Encounter Details Date Type Department Care Team (Late st Contact Info) Description 03/02/2024 Refill [facility] MEDICINE [address] [place] [address] Ayaka Salgado MD [address] [facility] [address] [place] [id number] Primary osteoarthritis involving multiple joints Social History [...] [facility] MED & PEDS [address] [place] [address] Alana Hook RN [address] [place] [address] documented as of this encounter Visit Diagnoses Diagnosis Primary osteoarthritis involving multiple joints documented in this encounter Additional Health Concerns Assessment Noted Time PHQ-9 Depression Total Score: 7 08/29/20 22 10:26 AM EST documented as of this encounter Care Teams Courtesy Bus Driver Relationship Specialty Start Date End Date Ayaka Salgado MD [address] [place] [address] PCP - General Internal Medicine 09/15/18 documented as of this encounter
--- OUTSIDE RECORDS SUMMARY | 2025-08-03 17:48 | XMS_ITS | Encounter Summary ---
Author Organization [employer] Address [address] [place] [address] 7 [place] [address] Care Team Providers Care Tetryl Boiling Tub Operator Name Role Phone Ayaka Salgado MD Primary Care Provider [phone] Reason for Visit * Reason Onset Date Comments Nurse Triage 02/04/2025 Encounter Details Date Type Department Care Team ([facility] st Contact Info) Description 02/04/[address] [facility] CHC MED & PEDS 505 [place] [address] Ayaka Salgado MD 505 [place] [address] Nurse Triage Social History Tobacco Use Types [...] - 02/04/2025 1:44 PM EDT Tc from family member caretaker Jaleel stating pt had cardiac procedure done. Jaleel reported pt removed bandage and is bleeding. [employer]. Commissioner advise will send a message to triage nurse. Contact pt at [phone] If any questions Jaleel at [phone] ext [phone] documented in this encounter Plan of Treatment Upcoming Encounters Date Type Department Care Team (Late st Contact Info) Description 08/17/2025 9:00 AM EST Clinical Support [facility] MED & PEDS 505 [place] [address] Alana Hook, RACHELLE 505 [place] [address] documented as of this encounter Visit Diagnoses Diagnosis Arthropathy Unspecified arthropathy, site unspecified documented in this encounter Additional Health Concerns Assessment Noted Time PHQ-9 Depression Total Score: 12 025 11:13 AM EDT documented as of this encounter Care Teams Tetryl Boiling Tub Operator Relationship Specialty Start Date End Date Ayaka Salgado MD [address] [place] [address] PCP - General Internal Medicine 09/15/18 documented as of this encounter
--- OUTSIDE RECORDS SUMMARY | 2025-08-03 17:48 | XMS_ITS | Encounter Summary ---
Author Organization [employer] Address [address] [place] [address] 7 [place] [address] Care Team Providers Care Derivatives Trader Name Role Phone Ayaka Salgado MD Primary Care Provider [phone] Reason for Visit * Reason Comments Med Refill Encounter Details Date Type Department Care Team ([facility] Contact Info) Description 07/28/2023 Refill [facility] CHC MED & PEDS 505 [place] [address] Ayaka Salgado MD 505 [place] [address] Social History Tobacco Use Types Packs/Day Years [facility] 505 [place] [address] Alana Hook, RACHELLE 505 [place] [address] documented as of this encounter Visit Diagnoses Not on filedocumented in this encounter Additional Health Concerns Assessment Noted Time PHQ-9 Depression Total Score: 7 08/29/20 22 10:26 AM EST documented as of this encounter Care Teams Derivatives Trader Relationship Specialty Start Date End Date Ayaka Salgado MD 505 [place] [address] PCP - General Internal Medicine 09/15/18 documented as of this encounter
--- OUTSIDE RECORDS SUMMARY | 2025-08-03 17:48 | XMS_ITS | Encounter Summary ---
Author Organization [employer] Address 75 [facility] 7 [place] [address] Care Team Providers Care Director Community Center Name Role Phone Ayaka Salgado MD Primary Care Provider [phone] Reason for Visit * Reason Onset Date Comments Med Refill 08/09/2024 Encounter Details Date Type Department Care Team ([facility] st Contact Info) Description 08/09/[address] [facility] MEDICINE [address] [place], [place] [phone] Ayaka Salgado MD 505 [facility] [place] [address] Med Refill Social History Tobacco Use Types [...] 5-325 MG tablet To be sent to: [facility][id number] documented in this encounter Plan of Treatment Upcoming Encounters Date Type Department Care Team ([facility] st Contact Info) Description 08/17/2025 9:00 AM EST Clinical Support [facility] CHC MED & PEDS 505 [place] [address] Alana Hook RN 505 [place] [address] documented as of this encounter Visit Diagnoses Not on filedocumented in this encounter Additional Health Concerns Assessment Noted Time PHQ-9 Depression Total Score: 7 08/29/20 22 10:26 AM EST documented as of this encounter Care Teams Director Community Center Relationship Specialty Start Date End Date Ayaka Salgado MD 505 [place] [address] PCP - General Internal Medicine 09/15/18 documented as of this encounter
--- OUTSIDE RECORDS SUMMARY | 2025-08-03 17:48 | XMS_ITS | Encounter Summary ---
Author Organization [employer] Address 75 [facility] 7 [place] [address] Care Team Providers Care Commercial Account Officer Name Role Phone Ayaka Salgado MD Primary Care Provider [phone] Reason for Visit * Reason Onset Date Comments Med Refill 02/28/2025 Encounter Details Date Type Department Care Team ([facility] st Contact Info) Description 02/28/2025 Telephone [facility] [place] MEDICINE 230 [place], [place] [phone] Ayaka Salgado MD 505 [facility] [place] [address] Med Refill Social History Tobacco Use Types [...] 5-325 MG tablet To be sent to: [facility] #[id number] - [place] - [address] [facility] documented in this encounter Plan of Treatment Upcoming Encounters Date Type Department Care Team ([facility] st Contact Info) Description 08/17/2025 9:00 AM EST Clinical Support [facility] [place] CHC MED & PEDS 505 [facility] [place] [address] Alana Hook, RACHELLE [address] [facility] [place] [address] documented as of this encounter Visit Diagnoses Not on filedocumented in this encounter Additional Health Concerns Assessment Noted Time PHQ-9 Depression Total Score: 12 025 11:13 AM EDT documented as of this encounter Care Teams Commercial Account Officer Relationship Specialty Start Date End Date Ayaka Salgado MD [address] [place] [address] PCP - General Internal Medicine 09/15/18 documented as of this encounter
--- OUTSIDE RECORDS SUMMARY | 2025-08-03 17:48 | XMS_ITS | Encounter Summary ---
Author Organization [employer] Address 75 [facility] 7 [place] [address] Care Team Providers Care Restaurant Kitchen And Service Manager Name Role Phone Ayaka Salgado MD Primary Care Provider [phone] Reason for Visit * Reason Onset Date Comments Med Refill 01/25/2025 Encounter Details Date Type Department Care Team ([facility] st Contact Info) Description 01/25/2025 Telephone [facility] MEDICINE 230 [place], [place] [phone] Ayaka Salgado MD 505 [facility] [place] [address] Med Refill Social History Tobacco Use Types [...] 10 MG tablet To be sent to: [facility] #[id number] [place] - [address] [facility] [place] documented in this encounter Plan of Treatment Upcoming Encounters Date Type Department Care Team (Late st Contact Info) Description 08/17/2025 9:00 AM EST Clinical Support [facility] MED & PEDS [address] [place] [address] Alana Hook RN [address] [place] [address] documented as of this encounter Visit Diagnoses Not on filedocumented in this encounter Additional Health Concerns Assessment Noted Time PHQ-9 Depression Total Score: 12 025 11:13 AM EDT documented as of this encounter Care Teams Restaurant Kitchen And Service Manager Relationship Specialty Start Date End Date Ayaka Salgado MD 505 [place] [address] PCP - General Internal Medicine 09/15/18 documented as of this encounter
--- OUTSIDE RECORDS SUMMARY | 2025-08-03 17:48 | XMS_ITS | Encounter Summary ---
Author Organization [employer] Address [address] [place] [address] 7t [place] [address] Care Team Providers Care Subacute Nurse Name Role Phone Ayaka Salgado MD Primary Care Provider [phone] Encounter Details Date Type Department Care Team (Late st Contact Info) Description 02/19/2023 Abstract [facility] Information Management 230 [place] [address] Ayaka Salgado MD 505 [place], [place] [phone] Social History Tobacco Use Types Packs/Day Years [...] Support [facility] MED & PEDS 505 [place] [address] Alana Hook, RACHELLE 505 [place] [address] documented as of this encounter Visit Diagnoses Not on filedocumented in this encounter Additional Health Concerns Assessment Noted Time PHQ-9 Depression Total Score: 7 08/29/20 22 10:26 AM EST documented as of this encounter Care Teams Subacute Nurse Relationship Specialty Start Date End Date Ayaka Salgado MD 505 [place] [address] PCP - General Internal Medicine 09/15/18 documented as of this encounter
--- OUTSIDE RECORDS SUMMARY | 2025-08-03 17:48 | XMS_ITS | Encounter Summary ---
Author Organization [employer] Address [address] [place] [address] 7t [place] [address] Care Team Providers Care Office Machine Inspector Name Role Phone Ayaka Salgado MD Primary Care Provider [phone] Encounter Details Date Type Department Care Team (Late st Contact Info) Description 01/23/2023 Abstract [facility] Information Management 230 [place] [address] Ayaka Salgado MD 505 [place], [place] [phone] Social History Tobacco Use Types Packs/Day Years [...] [facility] MED [facility]EDS 505 [place] [address] Alana Hook, RACHELLE 505 [place] [address] documented as of this encounter Visit Diagnoses Not on filedocumented in this encounter Additional Health Concerns Assessment Noted Time PHQ-9 Depression Total Score: 7 08/29/20 22 10:26 AM EST documented as of this encounter Care Teams Office Machine Inspector Relationship Specialty Start Date End Date Ayaka Salgado MD 505 [place] [address] PCP - General Internal Medicine 09/15/18 documented as of this encounter
--- OUTSIDE RECORDS SUMMARY | 2025-08-03 17:48 | XMS_ITS | Encounter Summary ---
Author Organization [employer] Address [address] [place] [address] 7 [place] [address] Care Team Providers Care Bread Packer Name Role Phone Ayaka Salgado MD Primary Care Provider [phone] Reason for Visit * Reason Comments Med Refill Encounter Details Date Type Department Care Team ([facility] st Contact Info) Description 01/06/2023 Refill [facility] CHC MED & PEDS [address] [place] [address] Ayaka Salgado MD 505 [place] [address] Primary osteoarthritis involving multiple joints Social History [facility] [address] [place] [address] Alana Hook RN 505 [place] [address] documented as of this encounter Visit Diagnoses Diagnosis Primary osteoarthritis involving multiple joints documented in this encounter Additional Health Concerns Assessment Noted Time PHQ-9 Depression Total Score: 7 08/29/20 22 10:26 AM EST documented as of this encounter Care Teams Bread Packer Relationship Specialty Start Date End Date Ayaka Salgado MD 505 [place] [address] PCP - General Internal Medicine 09/15/18 documented as of this encounter
--- OUTSIDE RECORDS SUMMARY | 2025-08-03 17:48 | XMS_ITS | Encounter Summary ---
Author Organization [employer] Address [address] [place] [address] Care Team Providers Care Ui Architect Name Role Phone Ayaka Salgado MD Primary Care Provider [phone] Reason for Visit * Reason Onset Date Comments Letter Accomodation 12/12/2022 Encounter Details Date Type Department Care Team ([facility] st Contact Info) Description 12/12/2022 Telephone [facility] CHC MED & PEDS 505 [place] [address] Ayaka Salgado MD 505 [place] [address] Letter Accomodation Social History Tobacco Use Types [...] hisPercocet. Advised message will be forwarded to FIELD MAP EDITOR nurse regarding his request. Pt verbalizes understanding. * Telephone Encounter - Abiel Mills - 12/12/2022 9:32 AM EDT Tc from pt requesting an Accomodation letter. Please contact pt at [phone] documented in this encounter Plan of Treatment Upcoming Encounters Date Type Department Care Team (Late st Contact Info) Description 08/17/2025 9:00 AM EST Clinical Support [facility] MED & PEDS 505 [place] [address] Alana Hook, RN 505 [place] [address] documented as of this encounter Visit Diagnoses Diagnosis Congestive heart failure, unspecified HF chronicity, unspecified heart failure type (HCC) Primary osteoarthritis involving multiple joints documented in this encounter Additional Health Concerns Assessment Noted Time PHQ-9 Depression Total Score: 7 08/29/20 22 10:26 AM EST documented as of this encounter Care Teams Ui Architect Relationship Specialty Start Date End Date Ayaka Salgado MD 505 [place] [address] PCP - General Internal Medicine 09/15/18 documented as of this encounter
--- OUTSIDE RECORDS SUMMARY | 2025-08-03 17:48 | XMS_ITS | Encounter Summary ---
Author Organization [employer] Address [address] [place] [address] 7 [place] [address] Care Team Providers Care Medical Attendant Name Role Phone Ayaka Salgado MD Primary Care Provider [phone] Encounter Details Date Type Department Care Team ([facility] st Contact Info) Description 02/10/2025 Orders Only [facility] CHC MED & PEDS 505 [place] [address] Ayaka Salgado MD 505 [place], [place] [phone] Arthropathy Social History Tobacco Use Types Packs/Day [...] 08/17/2025 9:00 AM EST Clinical Support [facility] CHC MED & PEDS 505 [place] [address] Alana Hook, RACHELLE 505 [place] [address] documented as of this encounter Visit Diagnoses Diagnosis Arthropathy Unspecified arthropathy, site unspecified documented in this encounter Additional Health Concerns Assessment Noted Time PHQ-9 Depression Total Score: 12 025 11:13 AM EDT documented as of this encounter Care Teams Medical Attendant Relationship Specialty Start Date End Date Ayaka Salgado MD 505 [place] [address] PCP - General Internal Medicine 09/15/18 documented as of this encounter
--- OUTSIDE RECORDS SUMMARY | 2025-08-03 17:48 | XMS_ITS | Encounter Summary ---
Author Organization [employer] Address 75 [facility] 7t [place] [address] Care Team Providers Care Boom Man Name Role Phone Ayaka Salgado MD Primary Care Provider [phone] Encounter Details Date Type Department Care Team ([facility] st Contact Info) Description 09/22/2023 Orders Only [facility] CHC MED & PEDS 505 [place] [address] Ayaka Salgado MD 505 [place], [place] [phone] Simple chronic bronchitis (CMS/HCC) (Primary Dx) Social [...] [facility] MED & PEDS 505 [place] [address] Alana Hook, RACHELLE 505 [place] [address] documented as of this encounter Visit Diagnoses Diagnosis Simple chronic bronchitis (CMS/HCC) (HCC)- Primary Simple chronic bronchitis documented in this encounter Additional Health Concerns Assessment Noted Time PHQ-9 Depression Total Score: 7 08/29/20 22 10:26 AM EST documented as of this encounter Care Teams Boom Man Relationship Specialty Start Date End Date Ayaka Salgado MD 505 [place] [address] PCP - General Internal Medicine 09/15/18 documented as of this encounter
--- OUTSIDE RECORDS SUMMARY | 2025-08-03 17:48 | XMS_ITS | Encounter Summary ---
Author Organization [employer] Address 75 [facility] 7 [place] [address] Care Team Providers Care Grease Maker Head Name Role Phone Ayaka Salgado MD Primary Care Provider [phone] Reason for Visit * Reason Onset Date Comments Med Refill 02/08/2025 Encounter Details Date Type Department Care Team ([facility] st Contact Info) Description 02/08/2025 Telephone [facility] MEDICINE 230 [place], [place] [phone] Ayaka Salgado MD 505 [facility] [place] [address] Med Refill Social History Tobacco Use Types [...] requesting status of medication. Contact pt at [phone] * Telephone Encounter - Cleopatra Ortiz - 02/08/2025 10:21 AM EDT TC from pt requesting medication refill. Medications needing refill : oxyCODONE-acetaminophen (Percocet) 5-325 MG tablet To be sent to: [facility] #[id number] - [place] - [address] [facility] [place] documented in this encounter Plan of Treatment Upcoming Encounters Date Type Department Care Team ([facility] st Contact Info) Description 08/17/2025 9:00 AM EST Clinical Support [facility] CHC MED & PEDS 505 [place] [address] Alana Hook, RACHELLE 505 [place] [address] documented as of this encounter Visit Diagnoses Not on filedocumented in this encounter Additional Health Concerns Assessment Noted Time PHQ-9 Depression Total Score: 12 025 11:13 AM EDT documented as of this encounter Care Teams Grease Maker Head Relationship Specialty Start Date End Date Ayaka Salgado MD 505 [place] [address] PCP - General Internal Medicine 09/15/18 documented as of this encounter
--- OUTSIDE RECORDS SUMMARY | 2025-08-03 17:48 | XMS_ITS | Encounter Summary ---
Author Organization [employer] Address [address] [place] [address] 7 [place] [address] Care Team Providers Care Tar Roofer Name Role Phone Ayaka Salgado MD Primary Care Provider [phone] Reason for Visit * Reason Onset Date Comments Med Refill 07/28/2023 Encounter Details Date Type Department Care Team ([facility] Contact Info) Description 07/28/2023 Telephone [facility] CHC MED & PEDS 505 [place] [address] Ayaka Salgado MD 505 [place] [address] Med Refill Social History Tobacco Use Types [...] (Percocet) 5-325 MG tablet Please sent to [facility] #[id number] - [place] - [address] [facility] [place] documented in this encounter Plan of Treatment Upcoming Encounters Date Type Department Care Team ([facility] st Contact Info) Description 08/17/2025 9:00 AM EST Clinical Support [facility] MED & PEDS 505 [place] [address] Alana Hook, RACHELLE 505 [place] [address] documented as of this encounter Visit Diagnoses Not on filedocumented in this encounter Additional Health Concerns Assessment Noted Time PHQ-9 Depression Total Score: 7 08/29/20 22 10:26 AM EST documented as of this encounter Care Teams Tar Roofer Relationship Specialty Start Date End Date Ayaka Salgado MD 505 [place] [address] PCP - General Internal Medicine 09/15/18 documented as of this encounter
--- OUTSIDE RECORDS SUMMARY | 2025-08-03 17:48 | XMS_ITS | Encounter Summary ---
Author Organization [employer] Address [address] [place] [address] 7 [place] [address] Care Team Providers Care Risk Investigator Name Role Phone Ayaka Salgado MD Primary Care Provider [phone] Reason for Visit * Reason Comments Med Refill Encounter Details Date Type Department Care Team ([facility] st Contact Info) Description 02/24/2023 Refill [facility] CHC MED & PEDS 505 [place] [address] Ayaka Salgado MD 505 [place] [address] Social History Tobacco Use Types Packs/Day Years [...] Upcoming Encounters Date Type Department Care Team ([facility] st Contact Info) Description 08/17/2025 9:00 AM EST Clinical Support [facility] MED & PEDS 505 [place] [address] Alana Hook, RN 505 [place] [address] documented as of this encounter Visit Diagnoses Not on filedocumented in this encounter Additional Health Concerns Assessment Noted Time PHQ-9 Depression Total Score: 7 08/29/20 22 10:26 AM EST documented as of this encounter Care Teams Risk Investigator Relationship Specialty Start Date End Date Ayaka Salgado MD 505 [place] [address] PCP - General Internal Medicine 09/15/18 documented as of this encounter
--- OUTSIDE RECORDS SUMMARY | 2025-08-03 17:48 | XMS_ITS ---
Author Organization [employer] Address [address] [place] [address] 7 [place] [address] Care Team Providers Care Research Lab Assistant Name Role Phone Ayaka Salgado MD Primary Care Provider [phone] MAT MAN Status:Enrolled (Active) Start date:12/20/2022 Enrollment date:12/20/2022 Case Team Name Relationship Phone Alana Hook RN(Responsible Staff) Registered Nurse Continued Care and Services Coordination
--- OUTSIDE RECORDS SUMMARY | 2025-08-03 17:48 | XMS_ITS | Encounter Summary ---
Author Organization [employer] Address 75 [facility] 7 [place] [address] Care Team Providers Care Special Needs Child Caregiver Name Role Phone Ayaka Salgado MD Primary Care Provider [phone] Reason for Visit * Reason Comments Med Refill Encounter Details Date Type Department Care Team (Late st Contact Info) Description 10/07/[address] [facility] 230 [place] [address] Ayaka Salgado MD [address] [facility] [place] [address] Primary osteoarthritis involving multiple joints Social History [...] [facility] MED & PEDS 505 [place] [address] Alana Hook, RACHELLE 505 [place] [address] documented as of this encounter Visit Diagnoses Diagnosis Primary osteoarthritis involving multiple joints documented in this encounter Additional Health Concerns Assessment Noted Time PHQ-9 Depression Total Score: 7 08/29/20 22 10:26 AM EST documented as of this encounter Care Teams Special Needs Child Caregiver Relationship Specialty Start Date End Date Ayaka Salgado MD 505 [place] [address] PCP - General Internal Medicine 09/15/18 documented as of this encounter
--- OUTSIDE RECORDS SUMMARY | 2025-08-03 17:48 | XMS_ITS | Encounter Summary ---
Author Organization [employer] Address 75 [facility] 7 [place] [address] Care Team Providers Care Wool Grower Name Role Phone Ayaka Salgado MD Primary Care Provider [phone] Reason for Visit * Reason Onset Date Comments Med Refill 01/19/2025 Encounter Details Date Type Department Care Team ([facility] st Contact Info) Description 01/19/2025 Telephone [facility] MEDICINE 230 [place], [place] [phone] Ayaka Salgado MD 505 [facility] [place] [address] Med Refill Social History Tobacco Use Types [...] refills and Ambien to soon for refill FRONT MAKER LOCKSTITCH checked on 01/19/25 last filled on 12/26/24 #30. * Telephone Encounter - Cleopatra Ortiz - 01/19/2025 8:14 AM EDT TC from pt requesting medication refill. Medications needing refill : melatonin 5 MG tablet zolpidem (Ambien) 10 MG tablet To be sent to: [facility] #[id number] - [place], [place] - [address] [facility] [place] documented in this encounter Plan of Treatment Upcoming Encounters Date Type Department Care Team ([facility] st Contact Info) Description 08/17/2025 9:00 AM EST Clinical Support [facility] CHC MED & PEDS 505 [place] [address] Alana Hook, RACHELLE 505 [place] [address] documented as of this encounter Visit Diagnoses Not on filedocumented in this encounter Additional Health Concerns Assessment Noted Time PHQ-9 Depression Total Score: 12 025 11:13 AM EDT documented as of this encounter Care Teams Wool Grower Relationship Specialty Start Date End Date Ayaka Salgado MD 505 [place] [address] PCP - General Internal Medicine 09/15/18 documented as of this encounter
--- OUTSIDE RECORDS SUMMARY | 2025-08-03 17:48 | XMS_ITS | Encounter Summary ---
Author Organization [employer] Address 75 [facility] 7 [place] [address] Care Team Providers Care Musculoskeletal Physiotherapist Name Role Phone Ayaka Salgado MD Primary Care Provider [phone] Reason for Visit * Reason Onset Date Comments Med Refill 08/05/2024 Encounter Details Date Type Department Care Team ([facility] st Contact Info) Description 08/05/2024 Refill [facility] CH[facility] MED & PEDS [address] [place] [address] Ayaka Salgado MD 505 [place] [address] Back pain, unspecified back location, unspecified back [...] 5-325 MG tablet To be sent to: [id number] - [place], [place] - [address] [facility] [place] documented in this encounter Plan of Treatment Upcoming Encounters Date Type Department Care Team (Late st Contact Info) Description 08/17/2025 9:00 AM EST Clinical Support [facility] MED & PEDS [address] [place] [address] Alana Hook, RN 505 [place] [address] documented as of this encounter Visit Diagnoses Diagnosis Back pain, unspecified back location, unspecified back pain laterality, unspecified chronicity- Primary documented in this encounter Additional Health Concerns Assessment Noted Time PHQ-9 Depression Total Score: 7 08/29/20 22 10:26 AM EST documented as of this encounter Care Teams Musculoskeletal Physiotherapist Relationship Specialty Start Date End Date Ayaka Salgado MD [address] [place] [address] PCP - General Internal Medicine 09/15/18 documented as of this encounter
--- OUTSIDE RECORDS SUMMARY | 2025-08-03 17:48 | XMS_ITS | Encounter Summary ---
Author Organization [employer] Address 75 [facility] 7 [place] [address] Care Team Providers Care Refrigeration Tech Name Role Phone Ayaka Salgado MD Primary Care Provider [phone] Reason for Visit * Reason Onset Date Comments r/s appt 08/23/2022 Encounter Details Date Type Department Care Team ([facility] st Contact Info) Description 08/23/2022 Telephone [facility] MEDICINE [address] [place] [address] Ayaka Salgado MD 505 [facility] [place] [address] r/s appt Social History Tobacco Use Types [...] appt has been canceled. Please contact at [phone] documented in this encounter Plan of Treatment Upcoming Encounters Date Type Department Care Team (Late st Contact Info) Description 08/17/2025 9:00 AM EST Clinical Support [facility] CHC MED & PEDS [address] [place] [address] Alana Hook, RACHELLE 505 [place] [address] documented as of this encounter Visit Diagnoses Not on filedocumented in this encounter Care Teams Refrigeration Tech Relationship Specialty Start Date End Date Ayaka Salgado MD 505 [place] [address] PCP - General Internal Medicine 09/15/18 documented as of this encounter
--- OUTSIDE RECORDS SUMMARY | 2025-08-03 17:48 | XMS_ITS | Encounter Summary ---
Author Organization [employer] Address 75 [facility] 7 [place] [address] Care Team Providers Care Trial Justice Name Role Phone Ayaka Salgado MD Primary Care Provider [phone] Reason for Visit * Reason Onset Date Comments Med Refill 07/31/2023 Encounter Details Date Type Department Care Team ([facility] st Contact Info) Description 07/31/2023 Telephone [facility] MEDICINE [address] [place], [place] [phone] Ayaka Salgado MD 505 [facility] [place] [address] Med Refill Social History Tobacco Use Types [...] 08/17/2025 9:00 AM EST Clinical Support [facility] MED & PEDS 505 [place] [address] Alana Hook, RACHELLE [address] [place] [address] documented as of this encounter Visit Diagnoses Not on filedocumented in this encounter Additional Health Concerns Assessment Noted Time PHQ-9 Depression Total Score: 7 08/29/20 22 10:26 AM EST documented as of this encounter Care Teams Trial Justice Relationship Specialty Start Date End Date Ayaka Salgado MD 505 [place] [address] PCP - General Internal Medicine 09/15/18 documented as of this encounter
--- OUTSIDE RECORDS SUMMARY | 2025-08-03 17:48 | XMS_ITS | Encounter Summary ---
Author Organization [employer] Address 75 [facility] 7t [place] [address] Care Team Providers Care Lunchroom Mother Name Role Phone Ayaka Salgado MD Primary Care Provider [phone] Encounter Details Date Type Department Care Team ([facility] st Contact Info) Description 08/20/2024 Orders Only [facility] CHC MED & PEDS [address] [place] [address] Ayaka Salgado MD 505 [place] [address] Social History Tobacco Use Types Packs/Day Years [...] [facility] CH[facility] MED [facility] PEDS [address] [place] [address] Alana Hook, RACHELLE 505 [place] [address] documented as of this encounter Visit Diagnoses Not on filedocumented in this encounter Additional Health Concerns Assessment Noted Time PHQ-9 Depression Total Score: 7 08/29/20 22 10:26 AM EST documented as of this encounter Care Teams Lunchroom Mother Relationship Specialty Start Date End Date Ayaka Salgado MD 505 [place] [address] PCP - General Internal Medicine 09/15/18 documented as of this encounter
--- OUTSIDE RECORDS SUMMARY | 2025-08-03 17:48 | XMS_ITS | Encounter Summary ---
Author Organization [employer] Address [address] [place] [address] Care Team Providers Care Ostomy Nurse Name Role Phone Ayaka Salgado MD Primary Care Provider [phone] Reason for Visit * Reason Onset Date Comments Med Refill 12/12/2022 Encounter Details Date Type Department Care Team ([facility] st Contact Info) Description 12/12/2022 Telephone [facility] MED & PEDS 505 [place] [address] Ayaka Salgado MD 505 [place] [address] Med Refill Social History Tobacco Use Types [...] (Norvasc) 5 MG tablet Please sent to [facility][id number] - [place] - [address] [facility] documented in this encounter Plan of Treatment Upcoming Encounters Date Type Department Care Team ([facility] st Contact Info) Description 08/17/2025 9:00 AM EST Clinical Support [facility] CHC MED & PEDS [address] [place] [address] Alana Hook, RN 505 [place] [address] documented as of this encounter Visit Diagnoses Not on filedocumented in this encounter Additional Health Concerns Assessment Noted Time PHQ-9 Depression Total Score: 7 08/29/20 22 10:26 AM EST documented as of this encounter Care Teams Ostomy Nurse Relationship Specialty Start Date End Date Ayaka Salgado MD 505 [place] [address] PCP - General Internal Medicine 09/15/18 documented as of this encounter
--- OUTSIDE RECORDS SUMMARY | 2025-08-03 17:48 | XMS_ITS | Encounter Summary ---
Author Organization [employer] Address 75 [facility] 7t [place] [address] Care Team Providers Care Gamemaster Name Role Phone Ayaka Salgado MD Primary Care Provider [phone] Encounter Details Date Type Department Care Team (Late st Contact Info) Description 10/11/2022 Orders Only [facility] MEDICINE [address] [place] [address] Ayaka Salagdo MD 505 [facility] [address] [place] [phone] Congestive heart failure, unspecified HF chronicity, unspecified [...] [facility] st Contact Info) Description 08/17/2025 9:00 AM EST Clinical Support [facility] MED & PEDS 505 [place] [address] Alana Hook RN 505 [place] [address] documented as of this encounter Visit Diagnoses Diagnosis Congestive heart failure, unspecified HF chronicity, unspecified heart failure type (HCC) Edema of foot Edema documented in this encounter Additional Health Concerns Assessment Noted Time PHQ-9 Depression Total Score: 7 08/29/20 22 10:26 AM EST documented as of this encounter Care Teams Gamemaster Relationship Specialty Start Date End Date Ayaka Salgado MD 505 [place] [address] PCP - General Internal Medicine 09/15/18 documented as of this encounter
--- OUTSIDE RECORDS SUMMARY | 2025-08-03 17:48 | XMS_ITS | Encounter Summary ---
Author Organization [employer] Address 75 [facility] 7 [place] [address] Care Team Providers Care Resource Manager Forester Name Role Phone Ayaka Salgado MD Primary Care Provider [phone] Reason for Visit * Reason Onset Date Comments Med Refill 09/06/2024 Encounter Details Date Type Department Care Team ([facility] st Contact Info) Description 09/06/2024 Telephone [facility] MEDICINE [address] [place], [place] [phone] Ayaka Salgado MD 505 [facility] [place] [address] Med Refill Social History Tobacco Use Types [...] 8:56 AM EST Medication was sent to [facility] #[id number] on 08/09/24 with 3 refills. * Telephone Encounter - Cleopatra Ortiz - 09/06/2024 8:53 AM EST TC from pt requesting medication refill. Medications needing refill : labetalol (Normodyne) 200 MG tablet To be sent to: [email or web address] #[id number] - [place] - [address] [facility] [address] [place] documented in this encounter Plan of Treatment Upcoming Encounters Date Type Department Care Team ([facility] st Contact Info) Description 08/17/2025 9:00 AM EST Clinical Support [facility] MED & PEDS 505 [facility] [place] [address] Alana Hook, RN 505 [facility] [place] [address] documented as of this encounter Visit Diagnoses Not on filedocumented in this encounter Additional Health Concerns Assessment Noted Time PHQ-9 Depression Total Score: 7 08/29/20 22 10:26 AM EST documented as of this encounter Care Teams Resource Manager Forester Relationship Specialty Start Date End Date Ayaka Salgado MD 505 [place] [address] PCP - General Internal Medicine 09/15/18 documented as of this encounter
--- OUTSIDE RECORDS SUMMARY | 2025-08-03 17:48 | XMS_ITS | Encounter Summary ---
Author Organization [employer] [facility] [employer] Address 75 [facility] 7t [place] [address] Care Team Providers Care Java Web Services Developer Name Role Phone Ayaka Salgado MD Primary Care Provider [phone] Reason for Visit * Reason Comments Med Refill Encounter Details Date Type Department Care Team ([facility] st Contact Info) Description 06/15/2024 Refill [facility] MEDICINE 230 [place], [place] [phone] Lev Gentile MD 230 [place], [place] [phone] Chronic pruritus Social History Tobacco Use Types [...] [facility] MED & [facility]EDS 505 [place] [address] Alana Hook, RACHELLE 505 [place] [address] documented as of this encounter Visit Diagnoses Diagnosis Chronic pruritus documented in this encounter Additional Health Concerns Assessment Noted Time PHQ-9 Depression Total Score: 7 08/29/20 22 10:26 AM EST documented as of this encounter Care Teams Java Web Services Developer Relationship Specialty Start Date End Date Ayaka Salgado MD 505 [place] [address] PCP - General Internal Medicine 09/15/18 documented as of this encounter
--- OUTSIDE RECORDS SUMMARY | 2025-08-03 17:48 | XMS_ITS | Clinical Summary ---
Author Organization [facility] Address [address] [facility] [address] [place] [address] Phone Care Team Providers Care Meat Packer Name Role Phone Jayme Salgado MD Primary Care Provider [phone] Allergies Active Allergy Reactions Criticality Noted Date [...] Influenza Vaccine (#1) 2025 Insurance UHC Medicare [facility] Medicare Care Teams Meat Packer Relationship Specialty Start Date End Date Jayme Salgado MD [address] [place], [place] [address]Dee PA PCP - General 09/25/20
--- OUTSIDE RECORDS SUMMARY | 2025-08-03 17:48 | XMS_ITS | Encounter Summary ---
Author Organization [employer] Address [address] [place] [address] Care Team Providers Care Associate Engineer Name Role Phone Ayaka Salgado MD Primary Care Provider [phone] Reason for Visit * Reason Onset Date Comments Med Refill 12/12/2022 Encounter Details Date Type Department Care Team ([facility] st Contact Info) Description 12/12/2022 Telephone [facility] MED & PEDS [address] [place] [address] Ayaka Salgado MD [address] [place] [address] Med Refill Social History Tobacco Use Types [...] (Percocet) 5-325 MG tablet Please sent to [facility][id number] - [place] - [address] [facility] documented in this encounter Plan of Treatment Upcoming Encounters Date Type Department Care Team (Late st Contact Info) Description 08/17/2025 9:00 AM EST Clinical Support [facility] CHC MED & PEDS 505 [place] [address] Alana Hook, RN 505 [place] [address] documented as of this encounter Visit Diagnoses Not on filedocumented in this encounter Additional Health Concerns Assessment Noted Time PHQ-9 Depression Total Score: 7 08/29/20 22 10:26 AM EST documented as of this encounter Care Teams Associate Engineer Relationship Specialty Start Date End Date Ayaka Salgado MD [address] [place] [address] PCP - General Internal Medicine 09/15/18 documented as of this encounter
--- OUTSIDE RECORDS SUMMARY | 2025-08-03 17:48 | XMS_ITS | Clinical Summary ---
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; Pre-transplant evaluation for end stage renal disease 07/19/2025 11:00 AM EST - 07/19/2025 11:59 PM EST Hospital Encounter [facility] Pulmonary Function Lab [address] [place] [address] Dyspnea, unspecified type Discharge Disposition: Home or Self Care () 06/28/2025 10:40 AM EDT Follow-Up [facility] Renal Transplant [address] [place] [address] Joey Duarte MD Pre-transplant evaluation for kidney transplant (Primary Dx); Dyspnea, unspecified type; Stage 4 chronic kidney disease 06/28/2025 10:00 AM EDT Social Work [facility] Renal Transplant [address] [place] [address] Hugh Holman 06/28/[address] floor Cardiology Medicine 55 [place] [address] Advertising Dispatch Clerk: Ezoi Villagran MA PAC General Info 06/21/2025 Telephone [facility] Transplant Department [address] [place] [address] Shima Springer, RN 06/16/2025 Documentation [facility] Transplant Department [address] [place] [address] Sheryl Moore RN ABO Dual Validation 06/15/2025 Documentation [facility] Transplant Department [address] [place] [address] Shima Springer, RN ABO Dual Validation 06/15/2025 Telephone [facility] Transplant Department [address] [place] [address] Shima Springer RN Referral - Kidney Txp 06/13/2025 10:30 AM EDT Procedure visit [facility] Gastroenterology Clinic [address] [place] [address] Advertising Dispatch Clerk: Kaylyn Gilliam RN Stage 4 chronic kidney disease (HCC) 06/13/2025 10:30 AM EDT Follow-Up [facility] Liver Transplant Services [address] [place] [address] Gary Reese MD Hepatomegaly (Primary Dx); Hepatic steatosis; Abnormal finding on imaging of liver 06/13/2025 Orders Only [facility] Gastroenterology Clinic [address] [place] [address] Advertising Dispatch Clerk: Kaylyn Gilliam RN Stage 4 chronic kidney [...] Description 10/17/2025 9:30 AM EST Office Visit [facility] Lung and Allergy Center [address] [place] [address] Advertising Dispatch Clerk: Lissa Vidal DO 55 [facility] [place] [address] 06/13/2026 9:40 AM EDT Follow-Up [facility] Renal Transplant 55 [place] [address] Joey Duarte MD 55 [place] [address] 06/13/2026 10:00 AM EDT Social Work [facility] Renal Transplant [address] [place] [address] Hugh Holman Health Maintenance Due Date Last Done Comments 25 Hydroxy / Vitamin D 1957 Cologuard 1957 Colon Cancer Screening 1957 Colonoscopy 1957 FOBT / Fit Test 1957 PTH 1957 Sigmoidoscopy 1957 Ophthalmology Exam 12/09/1967 Urine Microalbumin 12/09/1967 Pneumococcal Vaccine: 50+ Years (1 of 2 - PCV) 1976 DTaP,Tdap,and Td Vaccines (1 - Tdap) 09/16/2005 09/15/2005 CT Lung Cancer Screening (Baseline) 12/09/2007 RSV Vaccine (60+ years old and patients) (1 - Risk 50-74 years 1-dose series) 12/09/2007 Zoster Vaccines (1 of 2) 12/09/2007 Abdominal Aortic Aneurysm (AAA) Screening 2022 Basic Metabolic Panel 08/28/2023 05/29/2023 Alcohol/Substance Use Screening 09/15/2024 Depression Screening and Follow-Up 09/15/2024 Health Care Proxy Review 09/15/2024 [employer] Annual Screening 09/15/2024 Influenza Vaccine (#1) 2025 COVID-19 Vaccine ( season) 2025 08/03/2021, 11/03/2020, 10/06/2020 Hemoglobin A1C 05/25/2025 11/22/2024, 07/16, 07/12/2024, Additional [...] Procedure Name Priority Date/Time Associated Diagnosis Comments ECG 12-LEAD Routine 07/19/2025 12:11 PM EST Permanent atrial fibrillation Essential hypertension Pulmonary hypertension 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 * ECG 12 lead (07/19/2025 12:11 PM EST) Ventricular Rate EKG 50 BPM MUSE EKG QRS Interval 152 ms MUSE EKG QT Interval 496 ms MUSE EKG QTC Interval 452 ms MUSE EKG R Mcclure 243 degrees MUSE EKG T Wave Mcclure 18 degrees MUSE EKG 07/19/2025 12:1 1 PM EST 07/27/2025 7:48 AM EST Impressions MUSE EKG - 07/27/2025 7:48 AM EST ATRIAL FIBRILLATION WITH SLOW VENTRICULAR RESPONSE RIGHT BUNDLE BRANCH BLOCK ABNORMAL ECG NO PREVIOUS ECGS AVAILABLE Confirmed by Francis Vera ([id number]) on 07/27/2025 7:48:28 AM Narrative Procedure Note Francis Vera MD - 07/27/2025 IMPRESSION: ATRIAL FIBRILLATION WITH SLOW VENTRICULAR RESPONSE RIGHT BUNDLE BRANCH BLOCK ABNORMAL ECG NO PREVIOUS ECGS AVAILABLE Confirmed by Francis Vera ([id number]) on 07/27/2025 7:48:28 AM us Alexandre Piña MD ECG ORDERABLES Final Result [facility]USE EKG * (ABNORMAL) Transient Elastography (Fibroscan) (06/13/2025 9:23 [...] IQR 0.6 FIBROSCAN IQR/Median Ratio 12 FIBROSCAN Paving Foreman Name Terrence BUSH FIBROSCAN Probe Size XL FIBROSCAN 06/13/2025 9:23 AM EDT Impressions FIBROSCAN - 06/13/2025 4:51 PM EDT FIBROSCAN REPORT Lewis Snyder is a 69 y.o. male referred for a FIBROSCAN Referring Physician: Gary Reese MD [address] [place] [address] PRIMARY CARE PROVIDER: Ayaka Salgado Procedure Done [...] - 0.20 10*3/uL 07/29/2024 1:35 PM EST [facility] nRBC % 0.0 /100 WBCs 07/29/2024 1:35 PM EST [facility] nRBC # <0.01 <0.01 10*3/uL 07/29/2024 1:35 PM EST [facility] Blood Structure of peripheral vein / Unknown Venipuncture / Unknown 07/29/2024 12:57 PM EST 07/29/2024 1:29 PM EST Joey Duarte MD LAB BLOOD ORDERABLES María l Result [facility] [address] [place] [address], * Hepatitis C Antibody w/Reflex to PCR (07/29/2024 12:57 PM EST) Hepatitis C Antibody NON-REACT [place] NON-REACT [place] 07/30/2024 3:03 AM EST [facility] Comment: HCV antibody was non-reactive. There is no laboratory evidence of HCV infection. In most cases, no further action is required. However, if recent HCV exposure is suspected, a test for HCV RNA (test code 91153) is suggested. For additional information please refer to http://education.[employer]/faq/BVT89r8 (This link is being provided for informational/ educational purposes only.) Blood Structure of peripheral vein / Unknown Venipuncture / Unknown 07/29/2024 12:57 PM EST 07/29/2024 1:32 PM EST Narrative [facility] 07/30/2024 3:03 AM EST [facility] Received Date:[id number] Joey Duarte MD LAB BLOOD ORDERABLES María l Result [facility] [address] [place] [address] 3rd Floor, [place] [address], [facility] [address] [place] [address] 3rd Floor, [place] [address], * Phosphorus (07/29/2024 12:57 PM EST) Phosphorus 4.5 2.5 - 4.5 mg/dL 07/29/2024 2:00 PM EST [facility] Blood Structure of peripheral vein / Unknown Venipuncture / Unknown 07/29/2024 12:57 PM EST 07/29/2024 1:29 PM EST Joey Duarte MD LAB BLOOD ORDERABLES María howard Result [facility] [address] [place] [address], [place] * (ABNORMAL) Hemoglobin A1c (07/29/2024 12:57 PM EST) Hemoglobin A1C 6.7(H) <5.7 % of total Hgb 07/30/2024 1:59 AM EST [facility] Comment: For someone without known diabetes, a [...] (MG/DL) 146 mg/dL 07/30/2024 1:59 AM EST [facility] eAG (MMOL/L) 8.1 mmol/L 07/30/2024 1:59 AM EST [facility] Blood Structure of peripheral vein / Unknown Venipuncture / Unknown 07/29/2024 12:57 PM EST 07/29/2024 1:32 PM EST Narrative [facility] [place] - 07/30/2024 1:59 AM EST [facility] Received Date: us Joey Duarte MD LAB BLOOD ORDERABLES María lee Result [facility] [address], [place] [address], [place] [phone] [facility] [address] 3rd Floor, [place] [address], [place] [phone] from Last 3 Months or Most Recently Relevant to Health Maintenance Insurance [facility] Member Subscriber Plan / Payer (Ef fective 2023-Present) Name:Lewis Snyder Relation to Subscriber:Self Name:Lewis Snyder Payer ID:[id number] (NAIC) Type:Not on file Address: [address] [place] [id number] [facility] Advance Directives Documents on File Type Date Recorded Patient Spreader Operator Automatic Expl anation Health Care Proxy 08/05/2024 4:14 PM 11-1 Care Teams Marine Chronometer Assembler Relationship Specialty Start Date End Date Ayaka Salgado [address] [place] [address] PCP - General Internal Medicine 07/29/24
--- OUTSIDE RECORDS SUMMARY | 2025-08-03 17:48 | XMS_ITS | Encounter Summary ---
Author Organization [employer] Address 75 [facility] 7t [place] [address] Care Team Providers Care Cylinder Devalver Name Role Phone Ayaka Salgado MD Primary Care Provider [phone] Encounter Details Date Type Department Care Team (Late st Contact Info) Description 04/29/2024 Telephone [facility] MEDICINE 230 [place] [address] Ayaka Salgado MD [address] [place] [phone] Social History Tobacco Use Types Packs/Day Years [...] 10 MG tablet To be sent to: [id number] - [place], [place] - [address] [facility] [address] documented in this encounter Plan of Treatment Upcoming Encounters Date Type Department Care Team (Late st Contact Info) Description 08/17/2025 9:00 AM EST Clinical Support [facility] MED & PEDS 505 [place] [address] Alana Hook RN 505 [place] [address] documented as of this encounter Visit Diagnoses Not on filedocumented in this encounter Additional Health Concerns Assessment Noted Time PHQ-9 Depression Total Score: 7 08/29/20 22 10:26 AM EST documented as of this encounter Care Teams Cylinder Devalver Relationship Specialty Start Date End Date Ayaka Salgado MD 505 [place] [address] PCP - General Internal Medicine 09/15/18 documented as of this encounter
--- OUTSIDE RECORDS SUMMARY | 2025-08-03 17:48 | XMS_ITS | Encounter Summary ---
Author Organization [facility] 100 [facility] 200 [place] [address] Phone Care Team Providers Care Youth Program Director Name Role Phone Jayme Salgado MD Primary Care Provider [phone] Reason for Visit * Reason Comments Med Refill Encounter Details Date Type Department Care Team (Late st Contact Info) Description 04/28/2023 Refill [facility] [address] [place] [address] [place] [phone] Mumtaz Childress MD [address] [facility] 204 [place] [address] Type 2 diabetes mellitus with [...] (HCC) documented in this encounter Care Teams Youth Program Director Relationship Specialty Start Date End Date Jayme Salgado MD [address] [place] [address] PCP - General 09/25/20 documented as of this encounter
--- OUTSIDE RECORDS SUMMARY | 2025-08-03 17:48 | XMS_ITS | Encounter Summary ---
Author Organization [employer] Address 75 [facility] 7 [place] [address] Care Team Providers Care Booster Assembler Name Role Phone Ayaka Salgado MD Primary Care Provider [phone] Reason for Visit * Reason Onset Date Comments Med Refill 12/01/2023 Encounter Details Date Type Department Care Team ([facility] st Contact Info) Description 12/01/2023 Telephone [facility] MEDICINE 230 [place], [place] [phone] Ayaka Salgado MD 505 [facility] [place] [address] Med Refill Social History Tobacco Use Types [...] 10 MG tablet To be sent to: [facility][id number] - [place] - [address] [facility] documented in this encounter Plan of Treatment Upcoming Encounters Date Type Department Care Team ([facility] st Contact Info) Description 08/17/2025 9:00 AM EST Clinical Support [facility] MED & PEDS 505 [facility] [address] Alana Hook, RACHELLE 505 [place] [address] documented as of this encounter Visit Diagnoses Not on filedocumented in this encounter Additional Health Concerns Assessment Noted Time PHQ-9 Depression Total Score: 7 08/29/20 22 10:26 AM EST documented as of this encounter Care Teams Booster Assembler Relationship Specialty Start Date End Date Ayaka Salgado MD 505 [facility] [place] [address] PCP - General Internal Medicine 09/15/18 documented as of this encounter
--- OUTSIDE RECORDS SUMMARY | 2025-08-03 17:48 | XMS_ITS | Encounter Summary ---
Author Organization [employer] Address 75 [facility] 7 [place] [address] Care Team Providers Care Ball Warper Tender Name Role Phone Ayaka Salgado MD Primary Care Provider [phone] Reason for Visit * Reason Onset Date Comments Med Refill 01/19/2025 Encounter Details Date Type Department Care Team ([facility] st Contact Info) Description 01/19/2025 Telephone [facility] MEDICINE 230 [place], [place] [phone] Ayaka Salgado MD 505 [facility] [place] [address] Med Refill Social History Tobacco Use Types [...] 5-325 MG tablet To be sent to: [facility][id number] - [place] - [address] [facility] documented in this encounter Plan of Treatment Upcoming Encounters Date Type Department Care Team ([facility] st Contact Info) Description 08/17/2025 9:00 AM EST Clinical Support [facility] MED & PEDS 505 [facility] [place] [address] Alana Hook, RACHELLE 505 [facility] [place] [address] documented as of this encounter Visit Diagnoses Not on filedocumented in this encounter Additional Health Concerns Assessment Noted Time PHQ-9 Depression Total Score: 12 025 11:13 AM EDT documented as of this encounter Care Teams Ball Warper Tender Relationship Specialty Start Date End Date Ayaka Salgado MD [address] [place] [address] PCP - General Internal Medicine 09/15/18 documented as of this encounter
--- OUTSIDE RECORDS SUMMARY | 2025-08-03 17:49 | XMS_ITS | Encounter Summary ---
Author Organization [employer] Address [address] [place] [address] 7t [place] [address] Care Team Providers Care Tents Assembler Name Role Phone Ayaka Salgado MD Primary Care Provider [phone] Encounter Details Date Type Department Care Team (Late st Contact Info) Description 08/03/2025 Orders Only [facility] External Provider, [facility] Social History Tobacco Use Types Packs/Day Years [...] housing situation today? I have havenric mott 11/22/[address] you [...] [facility] 505 [place] [address] Alana Hook RN 505 [place] [address] documented as of this encounter Goals Goal Patient Goal Type Associated Problems [...] blood pressure task No Alana Hook RN Patient has chronic kidney disease Care Plan Patient has chronic kidney disease No Alana Hook RN Patient has chronic kidney disease Care Plan Patient has chronic kidney disease No Alana Hook RN documented as of this encounter Procedures Procedure Name Priority Date/Time Associated Diagnosis Comments [facility] US CAROTID ARTERY DUPLEX BILATERAL Routine 08/03/2025 12:37 PM EST documented in this encounter Results * [facility] US Carotid Artery Duplex Bilateral (08/03/2025 12:37 PM EST) 08/03/2025 12:3 7 PM EST Narrative [facility] IMAGING - 08/03/2025 12:38 PM EST [address] [address] Ultrasound Report Signed Patient: Lewis Garrison MR#: [id number] : 1955 Acct:[id number] Age/Sex: 69 / M ADM Date: 08/03/25 Loc: HO.US Attending Dr: Louis Mcfadden MD Ordering Physician: Louis Mcfadden MD Date of Service: 08/03/25 Procedure(s): US carotid duplex BI Accession Number(s): [id number] cc: Ayaka Salgado MD; Louis Mcfadden MD Reason for Exam: I65.22 - Occlusion and stenosis of left carotid artery CLINICAL HISTORY: I65.22 - Occlusion and stenosis of left carotid artery US Bilateral Carotid Duplex Comparison: US/SR - US CAROTID DOPPLER BILATERAL - 04/12/2024 10:11 AM EDT Findings: Dkgc-cj-agtxcjwh plaque within the carotid bulb bilaterally. Color [...] 08/03/25 1238 DD/ 1237 TD/TT: 08/03/25 1237 Medicinal Plant Picker: Procedure Note Donotuseinterpreter, Image - 08/03/2025 [place] [address] Ultrasound Report Signed Patient: Jose R Garrison#: [id number] : 8Acct:[id number] Age/Sex: 69 / MADM Date: 08/03/25 Loc: .US Attending Dr: Louis Mcfadden MD Ordering Physician: Louis Mcfadden MD Date of Service: 08/03/25 Procedure(s): US carotid duplex BI Accession Number(s): [id number] cc: Ayaka Salgado MD; Louis Mcfadden MD Reason for Exam: I65.22 - Occlusion and stenosis of left carotid artery CLINICAL HISTORY: I65.22 - Occlusion and stenosis of left carotid artery US Bilateral Carotid Duplex Comparison: US/SR - US CAROTID DOPPLER BILATERAL - 04/12/2024 10:11 AM EDT Findings: Hcar-zj-omwpgcqw plaque within the carotid bulb bilaterally. Color [...] 08/03/25 1238 DD/ 1237 TD/TT: 08/03/25 1237 Medicinal Plant Picker: us [facility] External Provider CV VASC ULAR PROCEDURES Final Result [facility] IMAGING [address] [place] [address] documented in this encounter Visit Diagnoses Not on filedocumented in this encounter Additional Health Concerns Active Problems Noted Date [...] 08/03/2025 Patient has chronic kidney disease 08/03/2025 Assessment Noted Time PHQ-9 Depression Total Score: 12 025 11:13 AM EDT documented as of this encounter Care Teams Tents Assembler Relationship Specialty Start Date End Date Ayaka Salgado MD [address] [place] [address] PCP - General Internal Medicine 09/15/18 documented as of this encounter
--- OUTSIDE RECORDS SUMMARY | 2025-08-03 17:49 | XMS_ITS | Encounter Summary ---
Author Organization [employer] Address 75 [facility] 7 [place] [address] Care Team Providers Care Mail Carrier And Clerk Name Role Phone Ayaka Salgado MD Primary Care Provider [phone] Reason for Visit * Reason Onset Date Comments Med Refill 08/03/2025 Encounter Details Date Type Department Care Team ([facility] st Contact Info) Description 08/03/2025 Refill [facility] MED & PEDS 505 [place] [address] Alana Hook, RN 505 [place], [place] Arthropathy Social History Tobacco Use Types Packs/Day [...] the past 12 months, has t he [employer], gas, oil or water company threatened to [...] [facility] 505 [place] [address] Alana Hook, RN 505 [place] [address] documented as of this encounter Goals Goal [...] Hook RN documented as of this encounter Visit Diagnoses Diagnosis Arthropathy Unspecified arthropathy, site unspecified documented in this encounter Additional Health Concerns Active [...] documented as of this encounter Care Teams Mail Carrier And Clerk Relationship Specialty Start Date End Date Ayaka Salgado MD [address] [place] [address] PCP - General Internal Medicine 09/15/18 documented as of this encounter
--- OUTSIDE RECORDS SUMMARY | 2025-08-03 17:49 | XMS_ITS | Encounter Summary ---
Author Organization [employer] Address 75 [facility] 7 [place] [address] Care Team Providers Care Associate Creative Director Name Role Phone Ayaka Salgado MD Primary Care Provider [phone] Reason for Visit * Reason Onset Date Comments Med Refill 08/03/2025 Encounter Details Date Type Department Care Team ([facility] st Contact Info) Description 08/03/2025 Refill [facility] MEDICINE 230 [place] [address] Ayaka Salgado MD 505 [facility] [place] [address] Chronic pruritus Social History Tobacco Use Types [...] Telephone Encounter - Lissa White LPN - 08/03/2025 2:43 PM EST HELPER/DRIVER checked on 08/03/25. Last seen 02/22/25. * Telephone Encounter - Karrie Sánchez - 08/03/2025 2:38 PM EST Tc from pt requesting med refill : gabapentin (Neurontin) [address] Armstrong documented in this encounter Plan of Treatment Upcoming Encounters Date Type Department Care Team ([facility] st Contact Info) Description 08/17/2025 9:00 AM EST Clinical Support [facility] MED & PEDS 505 [place] [address] Alana Hook, RN 505 [place] [address] documented as of this encounter Goals Goal [...] Noted Time PHQ-9 Depression Total Score: 12 03 025 11:13 AM EDT documented as of this encounter Care Teams Associate Creative Director Relationship Specialty Start Date End Date Ayaka Salgado MD [address] [place] [address] PCP - General Internal Medicine 09/15/18 documented as of this encounter
--- OUTSIDE RECORDS SUMMARY | 2025-08-03 17:49 | XMS_ITS | Encounter Summary ---
Author Organization [employer] Address [address] [place] [address] 7 [place] [address] Care Team Providers Care Paper Latcher Name Role Phone Ayaka Salgado MD Primary Care Provider [phone] Reason for Visit * Reason Comments Med Refill Encounter Details Date Type Department Care Team ([facility] st Contact Info) Description 06/22/2025 Refill [facility] CH[facility] MED & PEDS 505 [place] [address] Ayaka Salgado MD 505 [place] [address] Chronic pruritus Social History Tobacco Use Types [...] Description 08/17/2025 9:00 AM EST Clinical Support [facility] CHC MED & PEDS 505 [place] [address] Alana Hook, RACHELLE 505 [place] [address] documented as of this encounter Visit Diagnoses Diagnosis Chronic pruritus documented in this encounter Additional Health Concerns Assessment Noted Time PHQ-9 Depression Total Score: 12 025 11:13 AM EDT documented as of this encounter Care Teams Paper Latcher Relationship Specialty Start Date End Date Ayaka Salgado MD 505 [place] [address] PCP - General Internal Medicine 09/15/18 documented as of this encounter
--- OUTSIDE RECORDS SUMMARY | 2025-08-03 17:49 | XMS_ITS | Encounter Summary ---
Author Organization [employer] Address [address] [place] [address] 7 [place] [address] Care Team Providers Care Mason Liner Name Role Phone Ayaka Salgado MD Primary Care Provider [phone] Reason for Visit * Reason Comments Med Refill Encounter Details Date Type Department Care Team ([facility] st Contact Info) Description 03/26/2025 Refill [facility] CH[facility] MED & PEDS 505 [place] [address] Ayaka Salgado MD 505 [place] [address] Social History Tobacco Use Types Packs/Day Years [...] [facility] & PED[facility] 505 [place] [address] Alana Hook, RACHELLE 505 [place] [address] documented as of this encounter Visit Diagnoses Not on filedocumented in this encounter Additional Health Concerns Assessment Noted Time PHQ-9 Depression Total Score: 12 025 11:13 AM EDT documented as of this encounter Care Teams Mason Liner Relationship Specialty Start Date End Date Ayaka Salgado MD 505 [place] [address] PCP - General Internal Medicine 09/15/18 documented as of this encounter
--- OUTSIDE RECORDS SUMMARY | 2025-08-03 17:49 | XMS_ITS | Encounter Summary ---
Author Organization [employer] Address [address] [place] [address] 7 [place] [address] Care Team Providers Care Open Hearth Furnace Laborer Name Role Phone Ayaka Salgado MD Primary Care Provider [phone] Reason for Visit * Reason Onset Date Comments Med Refill 05/12/2025 Encounter Details Date Type Department Care Team ([facility] st Contact Info) Description 05/12/2025 Telephone [facility] CHC MED & PEDS 505 [place] [address] Ayaka Salgado MD 505 [place] [address] Med Refill Social History Tobacco Use Types [...] 10:04 AM EDT Medication was sent to [facility][id number] on 11/22/24 with 11 refills. * Telephone Encounter - Be Llamas - 05/12/2025 10:00 AM EDT TC from pt requesting medication refill. Medications needing refill : guaiFENesin (Mucinex) 600 MG 12 hr tablet To be sent to: [facility] #[id number] - [place] AT [facility] [place] documented in this encounter Plan of Treatment Upcoming Encounters Date Type Department Care Team ([facility] st Contact Info) Description 08/17/2025 9:00 AM EST Clinical Support [facility] MED & PEDS 505 [place] [address] Alana Hook, RACHELLE 505 [place] [address] documented as of this encounter Visit Diagnoses Not on filedocumented in this encounter Additional Health Concerns Assessment Noted Time PHQ-9 Depression Total Score: 12 025 11:13 AM EDT documented as of this encounter Care Teams Open Hearth Furnace Laborer Relationship Specialty Start Date End Date Ayaka Salgado MD 505 [place] [address] PCP - General Internal Medicine 09/15/18 documented as of this encounter
--- OUTSIDE RECORDS SUMMARY | 2025-08-03 17:49 | XMS_ITS | Encounter Summary ---
Author Organization [employer] Address 75 [facility] 7t [place] [address] Care Team Providers Care Point Of Care Technician Name Role Phone Ayaka Salgado MD Primary Care Provider [phone] Encounter Details Date Type Department Care Team (Late st Contact Info) Description 06/14/2025 Orders Only [facility] MED & PEDS [address] [place] [address] Provider, MD Ran Social History Tobacco Use [...] ([facility] st Contact Info) Description 08/17/2025 9:00 AM EST Clinical Support [facility] CH[facility] MED & PEDS 505 [place] [address] Alana Hook RN 505 [place] [address] documented as of this encounter Procedures Procedure [...] documented as of this encounter Care Teams Point Of Care Technician Relationship Specialty Start Date End Date Ayaka Salgado MD 505 [place] [address] PCP - General Internal Medicine 09/15/18 documented as of this encounter
--- OUTSIDE RECORDS SUMMARY | 2025-08-03 17:49 | XMS_ITS | Encounter Summary ---
Author Organization [employer] Address 75 [facility] 7 [place] [address] Care Team Providers Care District Home Economics Agent Name Role Phone Ayaka Salgado MD Primary Care Provider [phone] Reason for Visit * Reason Onset Date Comments Med Refill 08/03/2025 Encounter Details Date Type Department Care Team ([facility] st Contact Info) Description 08/03/2025 Telephone [facility] MEDICINE 230 [place], [place] [phone] Ayaka Salgado MD 505 [facility] [place] [address] Med Refill Social History Tobacco Use Types [...] the past 12 months, has t he [employer], gas, oil or water company threatened to [...] encounter Miscellaneous Notes * Telephone Encounter - Karrie Sánchez - 08/03/2025 2:40 PM EST Tc from pt requesting a med refill : oxyCODONE-acetaminophen (Percocet) 5-[address] Salgado documented in this encounter Plan of Treatment Upcoming Encounters Date Type Department Care Team ([facility] st Contact Info) Description 08/17/2025 9:00 AM EST Clinical Support [facility] MED & PEDS 505 [place] [address] Alana Hook, RACHELLE 505 [place] [address] documented as of this encounter Goals Goal Patient Goal Type Associated Problems Recent Progress Patient-Stated? Author Help patients manage their type 2 diabetes Care Plan Help patients manage their type 2 diabetes Karrie Gonzalez Weekly blood pressure task Care Plan Weekly blood pressure task Karrie Gonzalez Help patients manage their type 2 diabetes Care Plan Help patients manage their type 2 diabetes Judy SánchezKarrie Patient has chronic kidney disease Care Plan Patient has chronic kidney disease No Karrie Snáchez Weekly blood pressure task Care Plan Weekly [...] Plan Patient has chronic kidney disease No GonzaloKarrie Patient has chronic kidney disease Care Plan [...] documented as of this encounter Care Teams District Home Economics Agent Relationship Specialty Start Date End Date Ayaka Salgado MD [address] [place] [address] PCP - General Internal Medicine 09/15/18 documented as of this encounter
--- OUTSIDE RECORDS SUMMARY | 2025-08-03 17:49 | XMS_ITS | Encounter Summary ---
Author Organization [employer] Address [address] [place] [address] 7t [place] [address] Care Team Providers Care Bilingual Sales Representative Name Role Phone Ayaka Salgado MD Primary Care Provider [phone] Encounter Details Date Type Department Care Team ([facility] st Contact Info) Description 03/04/[address] [facility] CHC MED & PEDS 505 [place] [address] Ayaka Salgado MD 505 [place], [place] [phone] Social History Tobacco Use Types Packs/Day Years [...] Description 08/17/2025 9:00 AM EST Clinical Support [facility] MED & PEDS [address] [place] [address] Alana Hook, RACHELLE 505 [place] [address] documented as of this encounter Visit Diagnoses Not on filedocumented in this encounter Additional Health Concerns Assessment Noted Time PHQ-9 Depression Total Score: 12 025 11:13 AM EDT documented as of this encounter Care Teams Bilingual Sales Representative Relationship Specialty Start Date End Date Ayaka Salgado MD 505 [place] [address] PCP - General Internal Medicine 09/15/18 documented as of this encounter
== END 2025-08-03 09:39 | disposition home or self-care (01) ==
LOC: HO.US 09:38
PROVIDERS: PCP Internal Medicine; Visit Provider Surgery Vascular Surgery
DX: I65.22 Occlusion and stenosis of left carotid artery (principal)
CPT/HCPCS: 93880

== ENCOUNTER → 2025-08-03 09:39 | Outpatient (BNV) | payer MEDICARE, SELFPAY | PROVIDERS: PCP Internal Medicine; Visit Provider Radiology Vascular & Interventional Radiology | DX: I65.22 Occlusion and stenosis of left carotid artery (principal); I70.203 Unspecified atherosclerosis of native arteries of extremities, bilateral legs | CPT/HCPCS: 93880 ==

== ENCOUNTER 2025-08-17 09:27 | Outpatient (REF) | payer MEDICARE, SELFPAY ==
--- OUTSIDE RECORDS SUMMARY | 2025-08-17 09:00 | XMS_ITS | Encounter Summary ---
Author Organization [employer] Address [address] [place] [address] 7 [place] [address] Care Team Providers Care Associate Theatre Professor Name Role Phone Ayaka Salgado MD Primary Care Provider [phone] Reason for Visit * Reason Comments [employer] Encounter Details Date Type Department Care Team (Latest Contact Info) Description 08/17/2025 9:00 AM EST Clinical Support [facility] [address] [place], [place] [phone] Alana Hook, RACHELLE [address] [place], [place] Back pain, unspecified back location, unspecified [...] Progress Notes * Alana Hook RN - 08/17/2025 9:00 AM EST SUBJECTIVE: Lewis Saldivar is a 69 y.o. year old male who presents for [employer] Preferred language for medical information: [place] Lewis Saldivar does report adherence to Percocet 5-325 mg, take 1 tablet every 6 hours PRN, last refilled 08/05/25. The patient last took Percocet on: 08/17/25 Medication is: 90% % effective at alleviating pain. OBJECTIVE: CHIEF ENGINEER'S HELPER checked: 08/17/2025 Pill count completed for Percocet , count today is 19 , anticipated count should be 0, this is as expected. Vital Signs Pain Score: 6 Pain Loc: Knee Pain Education: Yes Last PCP visit: 02/22/25 BPI completed on: 05/31/2025 , pain severity score: 6, activity interference score: 2 BPI completed on: 11/24/24 , pain severity score: 2, activity interference score: 2 Controlled substance agreement signed: Controlled Substance Agreement 11/24/2024 [employer] Tier: 2 Current Medications[1] Smoking status: Denies ETOH use: Yes . Occasional ETOH use, pt educated of the risks associated with the combination of ETOH and opioids, verbalized understanding. Illicit substances: Denies Marijuana use: Denies, Lab Results Component Value Date POCTHC Negative 08/17/2025 POCCOCAINEUR Negative 08/17/2025 POCOPIATEUR Negative 08/17/2025 DOAUR Negative 08/17/2025 POCAMPHETAMI Negative 08/17/2025 POCBENZODIUR Negative 08/17/2025 POCBARBSCRN Negative 08/17/2025 POCMETHADOUR Negative 08/17/2025 POCBUPSCRN Negative 08/17/2025 POCTCAUR Negative 08/17/2025 POCMDMAUR Negative 08/17/2025 POCOXYCODONE Positive (A) 08/17/2025 POCPHENCYCUR Negative 08/17/2025 PROPOXUR Negative 08/17/2025 FENTANYLURIN Negative 08/17/2025 ASSESSMENT: Encounter Diagnosis Name Primary? Back pain, unspecified back location, unspecified back pain laterality, unspecified chronicity Yes PLAN: Information on pain group given: Previously discussed Information on acupuncture given: Previously discussed Narcan education provided: Previously discussed Narcan prescription: active Lewis Saldivar will continue taking medication as prescribed and follow up at the next [employer] visit or sooner if needed. Lewis Saldivar has verbalized understanding of care plan. Future Appointments Date Time Provider Department Center 10/05/2025 9:00 AM Ayaka Salgado MD [facility] 11/09/2025 9:00 AM Alana Hook RN [facility] Alana Hook RN [1] Current Outpatient Medications: [...] mouth daily, Disp: 30 tablet, Rfl: 11 aspirin 81 MG EC tablet, Take 1 tablet by mouth in the morning., Disp: , Rfl: Blood Glucose Monitoring Suppl (WhatsNew Asiaio) w/Device kit, USE TO TEST BLOOD SUGAR [...] Elastic Bandages & Supports (Medical Compression Socks) [facility] [place], [place], To use daily before getting out of bed, Disp: , Rfl: gabapentin (Neurontin) 300 MG capsule, TAKE 1 CAPSULE BY MOUTH THREE TIMES A DAY, Disp: 90 capsule,Rfl: 3 glimepiride (Amaryl) 1 MG tablet, Take 1 tablet (1 mg) by mouth before breakfast. TAKE 1 TABLET(1 MG) BY MOUTH EVERY DAY BEFORE BREAKFAST, Disp: 90 tablet, Rfl: 3 glucose blood (FREESTYLE LITE) test strip, USE TO TEST BLOOD SUGAR TWICE A DAY, Disp: 100 each, Rfl: 3 guaiFENesin (Mucinex) 600 MG 12 hr tablet, Take 2 tablets (1,200 mg) by mouth 2 times daily. Do notcrush, chew, or split., Disp: 120 tablet, Rfl: 11 guaiFENesin (Mucinex) 600 MG 12 hr tablet, Take 2 tablets (1,200 mg) by mouth 2 times daily., Disp:20 tablet, Rfl: 0 hydrALAZINE (Apresoline) 100 MG tablet, TAKE 1 [...] tablet, Rfl: 1 Misc. Devices (Pulse Oximeter) [facility] [place], [place], USE DIRECTED, Disp: , Rfl: naloxone (Narcan) 4 mg/0.1 mL nasal spray, Administer 1 spray (4 mg) into affected nostril(s) if needed for opioid reversal., Disp: 2 each, Rfl: 1 OneTouch Delica Lancets 33G misc, USE TO TEST BLOOD SUGAR TWICE A [...] swelling)., Disp: 80 g, Rfl: 3 Umeclidinium [place] (Incruse Ellipta) 62.5 MCG/ACT aerosol powder , [...] Care Team (Late st Contact Info) Description 10/05/2025 9:00 AM EST Office Visit [facility] [address] [place] [address] Ayaka Salgado MD [address] [place] [address] 11/09/2025 9:00 AM EST Clinical Support [facility] [address] [place] [address] Alana Hook RN [address] [place] [address] documented as of this encounter Goals Goal [...] chronic kidney disease No Alana Hook RN Weekly blood pressure [...] Comments POCT VESNA-14 URINE DRUG SCREEN Routine 08/17/2025 9:08 AM EST Back pain, unspecified back location, unspecified back pain laterality, unspecified chronicity documented in this encounter Results * (ABNORMAL) POCT VESNA-14 Urine Drug Screen (08/17/2025 9:08 AM EST) THC Negative Negative Cocaine Screen, Urine Negative Negative Opiate Screen, Urine Negative Negative Methamphetamine Screen Urine Negative Negative Amphetamine Screen, Urine Negative Negative Benzodiazepines Screen, Urine Negative Negative Barbiturate Screen, Urine Negative Negative Methadone Screen, Urine Negative Negative Buprenophine Screen, Urine Negative Negative TCA, Urine Negative Negative MDMA Urine Negative Negative ng/mL Oxycodone Screen, Urine Positive(A) Negative Comment:Rx Phencyclidine (PCP), Urine Negative Negative Propoxyphene, Urine Negative Negative Fentanyl, Urine Negative Negative Urine Urine specimen obtained by clean catch procedure / Unknown 08/17/2025 9:08 AM EST Narrative Alana Hook RN - 08/17/2025 9:08 AM EST . Internal Pass Control Lot# [id number] Exp: 06-21-26 Ayaka Salgado MD POINT OF CARE TEST [...] kidney disease 08/03/2025 Weekly blood pressure task 08/17/2025 Weekly blood pressure task 08/17/2025 Patient has chronic kidney disease 08/17/2025 Patient has chronic kidney disease 08/17/2025 Assessment Noted Time PHQ-9 Depression Total Score: 12 025 11:13 AM EDT documented as of this encounter Care Teams Associate Theatre Professor Relationship Specialty Start Date End Date Ayaka Salgado MD [address] [place] [address] PCP - General Internal Medicine 09/15/18 documented as of this encounter
--- OUTSIDE RECORDS SUMMARY | 2025-08-17 10:20 | XMS_ITS | Clinical Summary ---
Author Organization [employer] Address [address] [place] [address] 7[address] [place] [address] Care Team Providers Care Lubricating Engineer Name Role Phone Ayaka Salgado MD Primary Care Provider [phone] Allergies Active Allergy Reactions Criticality Noted Date [...] 0.083% nebulizer solutionIndicatio ns:Simple chronic bronchitis (CMS/HCC) ([facility]) Take 3 mL (2.5 mg) by nebulization [...] 3 024 Active Blood Glucose Monitoring Suppl ([employer] Verio) w/Device kitIndications:Ty pe 2 diabetes mellitus [...] DAILY 180 tablet 3 025 Active Umeclidinium [place] (Incruse Ellipta) 62.5 MCG/ACT aerosol powderIndications :Chronic obstructive pulmonary disease, unspecified COPD type (CMS/HCC) ([facility]) Inhale 1 Act (62.5 mcg) Once per day AND 1 Act (62.5 mcg) Once per day. 30 each Active labetalol (Normodyne) 300 MG tabletIndications :Essential hypertension Take 1 tablet (300 mg) by mouth 2 times daily. 60 tablet 025 2025 Active OneTouch Verio test stripIndications: 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[facility]) USE TO TEST BLOOD SUGAR TWICE A [...] 12 hr tabletIndications :Simple chronic bronchitis (CMS/HCC) ([facility]) Take 2 tablets (1,200 mg) by mouth 2 times daily. 20 tablet Active melatonin 5 MG tabletIndications :Primary insomnia 1 tab of 5 mg at bedtime 90 tablet 1 Active glimepiride (Amaryl) 1 MG tabletIndications :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[facility]) Take 1 tablet (1 mg) by mouth [...] eorder (will not trigger notification to Pharmacy)) gabapentin (Neurontin) 300 MG capsuleIndication s:Chronic pruritus [...] Diagnosed Date Normocytic anemia 02/22/2025 Atrial fibrillation ([facility]/HCC) 02/22/2025 Overview (02/22/2025): Status post Watchman device at [facility]. 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) use of opiate analgesic 11/13 Pruritus [...] Encounters Date Type Department Care Team Description 08/17/2025 9:00 AM EST Clinical Support [facility] [address] [place] [address] Alana Hook RN Back pain, unspecified back location, unspecified back pain laterality, unspecified chronicity (Primary Dx) 08/17/2025 Travel 08/03/2025 Refill [facility] [address] [place] [address] Alana Hook RN Arthropathy 08/03/2025 Telephone [facility] [address] [place] [address] Ayaka Salgado MD Med Refill 08/03/2025 Refill [facility] [address] [place] [address] Ayaka Salgado MD Chronic pruritus 08/03/2025 Orders Only [facility] External Provider, [facility] 07/25/2025 Refill [facility] [address] [place] [address] Ayaka Salgado MD 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); Primary insomnia 07/14/2025 Refill [facility] [address] [place] [address] Ayaka Salgado MD Arthropathy 06/29/2025 Refill [facility] [address] [place] [address] Ayaka Salgado MD Arthropathy 06/24/2025 Refill [facility] [address] [place] [address] Ayaka Salgado MD Primary insomnia 06/22/2025 Refill [facility] [address] [place] [address] Ayaka Salgado MD Chronic pruritus 06/14/2025 Orders Only [facility] [address] [place] [address] Ran Nguyễn MD 06/06/2025 Refill [facility] [address] [place] [address] Ayaka Salgado MD Arthropathy 05/31/2025 9:00 AM EDT Clinical Support [facility] [address] [place] [address] Alana Hook RN Back pain, unspecified back location, unspecified back pain laterality, unspecified chronicity 05/31/2025 Refill [facility] [address] [place] [address] Alana Hook RN Simple chronic bronchitis (CMS/HCC) 05/31/2025 Travel 05/27/2025 Refill [facility] [address] [place] [address] Ayaka Salgado MD Primary insomnia 05/25/2025 Telephone [facility] [address] [place] [address] Ayaka Salgado MD CRITICAL LAB 05/20/2025 Refill [facility] [address] [place] [address] Ayaka Salgado MD from Last 3 Months Immunizations Immunization Administration [...] Description 10/05/2025 9:00 AM EST Office Visit [facility] [address] [place] [address] Ayaka Salgado MD [address] [place] [address] 11/09/2025 9:00 AM EST Clinical Support [facility] [address] [place] [address] Alana Hook, RACHELLE [address] [place] [address] Health Maintenance Due Date Last Done Comments [...] 05/25/2025 025, 07/29/2024, 07/12/2024, Additional history exists Alcohol/Substance Use Screening 11/22/2025 [...] Care Plan Weekly blood pressure task No Karrei Sánchez Patient has chronic kidney disease Care [...] chronic kidney disease No Alana Hook RN Procedures Procedure Name Priority Date/Time Associated Diagnosis Comments POCT VESNA-14 URINE DRUG SCREEN Routine 08/17/2025 9:08 AM EST Back pain, unspecified back location, unspecified back pain laterality, unspecified chronicity [facility] US CAROTID ARTERY DUPLEX BILATERAL Routine 08/03/2025 12:37 PM EST US LIVER ELASTOGRAPHY - FIBROSCAN Routine 06/13/2025 9:33 AM EDT POCT VESNA-14 URINE DRUG SCREEN Routine 05/31/2025 9:04 AM EDT Back pain, unspecified back location, unspecified back pain laterality, unspecified chronicity POCT GLYCATED HEMOGLOBIN, TOTAL Routine 11/22/2024 11:52 AM EDT 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) DIABETES EYE EXAM Routine 05/04/2024 12:18 PM EDT LIPID PANEL, STANDARD Routine 11/12/2023 9:08 AM EST 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 THC Negative Negative Cocaine Screen, Urine Negative [...] Unknown 08/17/2025 9:08 AM EST Narrative Alana Hook, RN - 08/17/2025 9:08 AM EST . Internal Pass Control Lot# [id number] Exp: 06-21-26 Ayaka Salgado MD POINT OF CARE TEST ENTER/ED IT ORDERABLES Final Result * VASC US Carotid Artery Duplex Bilateral (08/03/2025 12:37 PM EST) 08/03/2025 12:3 7 PM EST Narrative [facility] - 08/03/2025 12:38 PM EST [place] [address] Ultrasound Report Signed Patient: Lewis Garrison MR#: [id number] : 1955 Acct:[id number] Age/Sex: 69 / M ADM Date: 08/03/25 Loc: HO.US Attending Dr: Louis Mcfadden MD Ordering Physician: Louis Mcfadden MD Date of Service: 08/03/25 Procedure(s): US carotid duplex BI Accession Number(s): [id number] cc: Ayaka Salgado MD; Louis Mcfadden MD Reason for Exam: I65.22 - Occlusion and stenosis of left carotid artery CLINICAL HISTORY: I65.22 - Occlusion and stenosis of left carotid artery US Bilateral Carotid Duplex Comparison: US/SR - US CAROTID DOPPLER BILATERAL - 04/12/2024 10:11 AM EDT Findings: Jzyw-vz-kthocuzc plaque within the carotid bulb bilaterally. Color [...] 08/03/25 1238 DD/ 1237 TD/TT: 08/03/25 1237 Deposit Clerk: Procedure Note Donotuseinterpreter, Image - 08/03/2025 [place] [address] Ultrasound Report Signed Patient: Jose R Garrison#: [id number] : 8Acct:[id number] Age/Sex: 69 / MADM Date: 08/03/25 Loc: HO.US Attending Dr: Louis Mcfadden MD Ordering Physician: Louis Mcfadden MD Date of Service: 08/03/25 Procedure(s): US carotid duplex BI Accession Number(s): [id number] cc: Ayaka Salgado MD; Louis Mcfadden MD Reason for Exam: I65.22 - Occlusion and stenosis of left carotid artery CLINICAL HISTORY: I65.22 - Occlusion and stenosis of left carotid artery US Bilateral Carotid Duplex Comparison: US/SR - US CAROTID DOPPLER BILATERAL - 04/12/2024 10:11 AM EDT Findings: Khev-rm-xhqqbehl plaque within the carotid bulb bilaterally. Color [...] 08/03/25 1238 DD/ 1237 TD/TT: 08/03/25 1237 Deposit Clerk: [facility] External Provider CV VASC ULAR PROCEDURES Final Result [facility] [address] [place] [address] * US LIVER ELASTOGRAPHY - FIBROSCAN (06/13/2025 9:33 AM EDT) Anatomical Region Laterality Modality Ultrasound Historical Provider IMG US PROCEDURES Final R esult * POCT HGB A1C (11/22/2024 11:52 AM EDT) Hemoglobin A1C 5.9 4.0 - 6.0 % QC Media Lot # [id number] Lot# Expiration Date ,307 Blood 11/22/2024 11:5 2 AM EDT Ayaka Salgado MD POINT OF CARE TEST ENTER/ED IT ORDERABLES Final Result * Hm Diabetes Eye Exam (05/04/2024 12:18 PM EDT) Historical Provider HEALTH MAINTENANCE Final Result * (ABNORMAL) Lipid Panel, Standard (11/12/2023 9:08 AM EST) Triglycerides 55 <150 mg/dL [facility] Comment:Desirable Triglyceri de: less than 150 mg/dLBorderline High Triglyceride 150-199 mg/dLHigh Triglyceride: 200-499 mg/dLVery High Triglyceride: greater than or equal to 5OO mg/dL Cholesterol 101 <200 mg/dL [facility] Comment:Desirable Cholestero l: less than 200 mg/dLBorderline High Cholesterol: 200-239 mg/dLHigh Cholesterol: greater than 239 mg/dL LDL Cholesterol Calculated 57 <100 mg/dL [facility] Comment:Desirable LDL: less than 100 mg/dLNear Optimal/Above Optimal LDL: 110- 129 mg/dLBorderline High LDL: 130-159 mg/dLHigh LDL: 160-189 mg/dLVery High LDL: greater than or equal to 190 mg/dL HDL Cholesterol 33(L) >40 mg/dL [facility] Comment:Desirable HDL: great er than 40 mg/dL Note: This HDL assay may give artificially low results in patients with liver disease. Blood Venous blood specimen / Unknown 11/12/2023 9:08 AM EST 11/12/2023 2:41 PM EST us Ayaka Salgado MD LAB BLOOD ORDERABLES Final Result [facility] [address] [place] [address] [phone] from Last 3 Months or Most [...] 08/17/2025 Patient has chronic kidney disease 08/17/2025 [facility] ADVANTAGE HMO Care Teams Lubricating Engineer Relationship Specialty Start Date End Date Ayaka Salgado MD [address] [place] [address] [place] PCP - General Internal Medicine 09/15/18
--- OUTSIDE RECORDS SUMMARY | 2025-08-17 10:20 | XMS_ITS | Encounter Summary ---
Author Organization [employer] Address [address] [facility] 7 [place] [address] Care Team Providers Care Toppiece Cutter Name Role Phone Ayaka Salgado MD Primary Care Provider [phone] Reason for Visit * Reason Onset Date Comments Med Refill 08/05/2024 Encounter Details Date Type Department Care Team ([facility] st Contact Info) Description 08/05/2024 Refill [facility] [address] [place] [address] Ayaka Salgado MD [address] [place] [address] Back pain, unspecified back location, unspecified back [...] 5-325 MG tablet To be sent to: [id number] - [place], [place] - [address] [facility] [address] documented in this encounter Plan of Treatment Upcoming Encounters Date Type Department Care Team (Late st Contact Info) Description 10/05/2025 9:00 AM EST Office Visit [facility] [address] [place] [address] Ayaka Salgado MD [address] [place] [address] 11/09/2025 9:00 AM EST Clinical Support [facility] [address] [place] [address] Alana Hook, RACHELLE [address] [place] [address] documented as of this encounter Visit Diagnoses Diagnosis Back pain, unspecified back location, unspecified back pain laterality, unspecified chronicity- Primary documented in this encounter Additional Health Concerns Assessment Noted Time PHQ-9 Depression Total Score: 7 08/29/20 22 10:26 AM EST documented as of this encounter Care Teams Toppiece Cutter Relationship Specialty Start Date End Date Ayaka Salgado MD [address] [place] [address] PCP - General Internal Medicine 09/15/18 documented as of this encounter
--- OUTSIDE RECORDS SUMMARY | 2025-08-17 10:20 | XMS_ITS | Encounter Summary ---
Author Organization [employer] Address [address] [facility] 7 [place] [address] Care Team Providers Care Paving Foreman Name Role Phone Ayaka Salgado MD Primary Care Provider [phone] Reason for Visit * Reason Onset Date Comments Med Refill 09/06/2024 Encounter Details Date Type Department Care Team ([facility] st Contact Info) Description 09/06/2024 Telephone [facility] [address] [place], [place] [phone] Ayaka Salgado MD 505 [facility] [place] [address] Med Refill Social History Tobacco Use Types [...] 8:56 AM EST Medication was sent to [facility] #[id number] on 08/09/24 with 3 refills. * Telephone Encounter - Cleopatra Ortiz - 09/06/2024 8:53 AM EST TC from pt requesting medication refill. Medications needing refill : labetalol (Normodyne) 200 MG tablet To be sent to: [id number] - [place] - [address] [facility] [address] documented in this encounter Plan of Treatment Upcoming Encounters Date Type Department Care Team ([facility] st Contact Info) Description 10/05/2025 9:00 AM EST Office Visit [facility] 505 [facility] [place] [address] Ayaka Salgado MD 505 [facility] [place] [address] 11/09/2025 9:00 AM EST Clinical Support [facility] [address] [place] [address] Alana Hook RN [address] [place] [address] documented as of this encounter Visit Diagnoses Not on filedocumented in this encounter Additional Health Concerns Assessment Noted Time PHQ-9 Depression Total Score: 7 08/29/20 22 10:26 AM EST documented as of this encounter Care Teams Paving Foreman Relationship Specialty Start Date End Date Ayaka Salgado MD [address] [place] [address] PCP - General Internal Medicine 09/15/18 documented as of this encounter
--- OUTSIDE RECORDS SUMMARY | 2025-08-17 10:20 | XMS_ITS | Encounter Summary ---
Author Organization [employer] Address [address] [facility] 7 [place] [address] Care Team Providers Care Plywood Layup Line Back Feeder Name Role Phone Ayaka Salgado MD Primary Care Provider [phone] Reason for Visit * Reason Onset Date Comments Med Refill 07/31/2023 Encounter Details Date Type Department Care Team ([facility] st Contact Info) Description 07/31/2023 Telephone [facility] [address] [place], [place] [phone] Ayaka Salgado MD 505 [facility] [place] [address] Med Refill Social History Tobacco Use Types [...] Description 10/05/2025 9:00 AM EST Office Visit [facility] [address] [place] [address] Ayaka Salgado MD [address] [place] [address] 11/09/2025 9:00 AM EST Clinical Support [facility] [address] [place] [address] Alana Hook RN [address] [place] [address] documented as of this encounter Visit Diagnoses Not on filedocumented in this encounter Additional Health Concerns Assessment Noted Time PHQ-9 Depression Total Score: 7 08/29/20 22 10:26 AM EST documented as of this encounter Care Teams Plywood Layup Line Back Feeder Relationship Specialty Start Date End Date Ayaka Salgado MD [address] [place] [address] PCP - General Internal Medicine 09/15/18 documented as of this encounter
--- OUTSIDE RECORDS SUMMARY | 2025-08-17 10:20 | XMS_ITS | Encounter Summary ---
Author Organization [employer] Address [address] [facility] 7 [place] [address] Care Team Providers Care Entry Level Project Coordinator Name Role Phone Ayaka Salgado MD Primary Care Provider [phone] Reason for Visit * Reason Onset Date Comments Med Refill 12/01/2023 Encounter Details Date Type Department Care Team ([facility] st Contact Info) Description 12/01/2023 Telephone [facility] [address] [place], [place] [phone] Ayaka Salgado MD 505 [facility] [place] [address] Med Refill Social History Tobacco Use Types [...] 10 MG tablet To be sent to: [facility][id number] - [place] - [facility] [address] [facility] documented in this encounter Plan of Treatment Upcoming Encounters Date Type Department Care Team ([facility] st Contact Info) Description 10/05/2025 9:00 AM EST Office Visit [facility] [address] [place] [address] Ayaka Salgado MD [address] [place] [address] 11/09/2025 9:00 AM EST Clinical Support [facility] [address] [place] [address] Alana Hook RN [address] [place] [address] documented as of this encounter Visit Diagnoses Not on filedocumented in this encounter Additional Health Concerns Assessment Noted Time PHQ-9 Depression Total Score: 7 08/29/20 22 10:26 AM EST documented as of this encounter Care Teams Entry Level Project Coordinator Relationship Specialty Start Date End Date Ayaka Salgado MD [address] [place] [address] PCP - General Internal Medicine 09/15/18 documented as of this encounter
--- OUTSIDE RECORDS SUMMARY | 2025-08-17 10:20 | XMS_ITS | Encounter Summary ---
Author Organization [employer] Address [address] [place] [address] 7 [place] [address] Care Team Providers Care Skin Carver Name Role Phone Ayaka Salgado MD Primary Care Provider [phone] Reason for Visit * Reason Comments Med Refill Encounter Details Date Type Department Care Team ([facility] Contact Info) Description 07/28/2023 Refill [facility] MED & PEDS [address] [place] [address] Ayaka Salgado MD [address] [place] [address] Social History Tobacco Use Types Packs/Day Years [...] Description 10/05/2025 9:00 AM EST Office Visit [facility] MED & PEDS [address] [place] [address] Ayaka Salgado MD [address] [place] [address] 11/09/2025 9:00 AM EST Clinical Support [facility] MED & PEDS [address] [place] [address] Alana Hook, RACHELLE 505 [place] [address] documented as of this encounter Visit Diagnoses Not on filedocumented in this encounter Additional Health Concerns Assessment Noted Time PHQ-9 Depression Total Score: 7 08/29/20 22 10:26 AM EST documented as of this encounter Care Teams Skin Carver Relationship Specialty Start Date End Date Ayaka Salgado MD [address] [place] [address] PCP - General Internal Medicine 09/15/18 documented as of this encounter
--- OUTSIDE RECORDS SUMMARY | 2025-08-17 10:20 | XMS_ITS | Encounter Summary ---
Author Organization [employer] Address [address] [facility] 7 [place] [address] Care Team Providers Care Log Clerk Name Role Phone Ayaka Salgado MD Primary Care Provider [phone]- [phone] Reason for Visit * Reason Onset Date Comments r/s appt 08/23/2022 Encounter Details Date Type Department Care Team ([facility] st Contact Info) Description 08/23/[address] [facility] MEDICINE [address] [place] [address] Ayaka Salgado MD 505 [facility] [place] [address] r/s appt Social History Tobacco Use Types [...] appt has been canceled. Please contact at [phone] documented in this encounter Plan of Treatment Upcoming Encounters Date Type Department Care Team (Late st Contact Info) Description 10/05/2025 9:00 AM EST Office Visit [facility] MED & PEDS [address] [place] [address] Ayaka Salgado MD 505 [place] [address] 11/09/2025 9:00 AM EST Clinical Support [facility] MED & PEDS 505 [place] [address] Alana Hook, RACHELLE 505 [place] [address] documented as of this encounter Visit Diagnoses Not on filedocumented in this encounter Care Teams Log Clerk Relationship Specialty Start Date End Date Ayaka Salgado MD 505 [place] [address] PCP - General Internal Medicine 09/15/18 documented as of this encounter
--- OUTSIDE RECORDS SUMMARY | 2025-08-17 10:20 | XMS_ITS | Encounter Summary ---
Author Organization [employer] Address [address] [facility] 7t [place] [address] Care Team Providers Care Foxing Painter Name Role Phone Ayaka Salgado MD Primary Care Provider [phone] Encounter Details Date Type Department Care Team (Late st Contact Info) Description 06/25/2024 Orders Only [facility] CHC MED & PEDS [address] [place] [address] Provider, MD Ran Social History Tobacco Use [...] Description 10/05/2025 9:00 AM EST Office Visit [facility] MED & PEDS [address] [place] [address] Ayaka Salgado MD 505 [place] [address] 11/09/2025 9:00 AM EST Clinical Support [facility] MED & PEDS [address] [place] [address] Alana Hook RN 505 [place] [address] documented as of this encounter Procedures Procedure [...] documented as of this encounter Care Teams Foxing Painter Relationship Specialty Start Date End Date Ayaka Salgado MD 505 [place] [address] PCP - General Internal Medicine 09/15/18 documented as of this encounter
--- OUTSIDE RECORDS SUMMARY | 2025-08-17 10:20 | XMS_ITS | Encounter Summary ---
Author Organization [employer] Address [address] [facility] 7t [place] [address] Care Team Providers Care Php Engineer Name Role Phone Ayaka Salgado MD Primary Care Provider [phone] Encounter Details Date Type Department Care Team ([facility] st Contact Info) Description 08/20/2024 Orders Only [facility] CHC MED & PEDS [address] [place] [address] Ayaka Salgado MD 505 [place] [address] Social History Tobacco Use Types Packs/Day Years [...] Description 10/05/2025 9:00 AM EST Office Visit [facility] MED & PEDS [address] [place] [address] Ayaka Salgado MD 505 [place] [address] 11/09/2025 9:00 AM EST Clinical Support [facility] MED & PEDS [address] [place] [address] Alana Hook, RACHELLE 505 [place] [address] documented as of this encounter Visit Diagnoses Not on filedocumented in this encounter Additional Health Concerns Assessment Noted Time PHQ-9 Depression Total Score: 7 08/29/20 22 10:26 AM EST documented as of this encounter Care Teams Php Engineer Relationship Specialty Start Date End Date Ayaka Salgado MD 505 [place] [address] PCP - General Internal Medicine 09/15/18 documented as of this encounter
--- OUTSIDE RECORDS SUMMARY | 2025-08-17 10:20 | XMS_ITS ---
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
--- OUTSIDE RECORDS SUMMARY | 2025-08-17 10:20 | XMS_ITS | Encounter Summary ---
Author Organization [facility] Address [address] [place] [address] Care Team Providers Care Ironer Name Role Phone Ayaka Salgado Primary Care Provider Encounter Details Date Type Department Care Team (Late st Contact Info) Description 07/29/[address] [facility] Xray [address] [place] [address] Waqas Garnett MD [address] [place] [address] Social History Tobacco Use Types Packs/Day Years [...] Description 10/17/2025 9:30 AM EST Office Visit [facility] [address] [place] [address] Credit Collection Associate: Lissa Vidal DO [address] [place] [address] [place] [address] 06/13/2026 9:40 AM EDT Follow-Up [facility] Renal Transplant [address] [place] [address] Joey Duarte MD [address] [place] [address] 06/13/2026 10:00 AM EDT Social Work [facility] Renal Transplant [address] [place] [address] Hugh Holman documented as of this encounter Visit Diagnoses Not on filedocumented in this encounter Care Teams Ironer Relationship Specialty Start Date End Date Ayaka Salgado [address] [place] [address] PCP - General Internal Medicine 07/29/24 documented as of this encounter
--- OUTSIDE RECORDS SUMMARY | 2025-08-17 10:20 | XMS_ITS | Encounter Summary ---
Author Organization [employer] Address [address] [place] [address] 7 [place] [address] Care Team Providers Care Animal Husbandry Technician Name Role Phone Ayaka Salgado MD Primary Care Provider [phone] Reason for Visit * Reason Onset Date Comments Med Refill 07/28/2023 Encounter Details Date Type Department Care Team ([facility] st Contact Info) Description 07/28/2023 Telephone [facility] CHC MED & PEDS [address] [place] [address] Ayaka Salgado MD 505 [place] [address] Med Refill Social History Tobacco Use Types [...] (Percocet) 5-325 MG tablet Please sent to [id number] - [place], [place] - [address] [facility] documented in this encounter Plan of Treatment Upcoming Encounters Date Type Department Care Team ([facility] st Contact Info) Description 10/05/2025 9:00 AM EST Office Visit [facility] MED & PEDS [address] [place] [address] Ayaka Salgado MD 505 [place] [address] 11/09/2025 9:00 AM EST Clinical Support [facility] MED & PEDS [address] [place] [address] Alana Hook RN 505 [place] [address] documented as of this encounter Visit Diagnoses Not on filedocumented in this encounter Additional Health Concerns Assessment Noted Time PHQ-9 Depression Total Score: 7 08/29/20 22 10:26 AM EST documented as of this encounter Care Teams Animal Husbandry Technician Relationship Specialty Start Date End Date Ayaka Salgado MD [address] [place] [address] PCP - General Internal Medicine 09/15/18 documented as of this encounter
--- OUTSIDE RECORDS SUMMARY | 2025-08-17 10:20 | XMS_ITS ---
Author Organization [employer] Address [address] [place] [address] 7 [place] [address] Care Team Providers Care Cargo Service Supervisor Name Role Phone Ayaka Salgado MD Primary Care Provider [phone] POUNCER Status:Enrolled (Active) Start date:12/20/2022 Enrollment date:12/20/2022 Case Team Name Relationship Phone Alana Hook RN(Responsible Staff) Registered Nurse Continued Care and Services Coordination
--- OUTSIDE RECORDS SUMMARY | 2025-08-17 10:20 | XMS_ITS | Encounter Summary ---
Author Organization [employer] Address [address] [facility] 7 [place] [address] Care Team Providers Care Plant Facilities Technician Name Role Phone Ayaka Salgado MD Primary Care Provider [phone] Reason for Visit * Reason Onset Date Comments Med Refill 08/09/2024 Encounter Details Date Type Department Care Team ([facility] st Contact Info) Description 08/09/2024 Telephone [facility] MEDICINE [address] [place], [place] [phone] Ayaka Salgado MD 505 [facility] [place] [address] Med Refill Social History Tobacco Use Types [...] 5-325 MG tablet To be sent to: [id number] documented in this encounter Plan of Treatment Upcoming Encounters Date Type Department Care Team ([facility] st Contact Info) Description 10/05/2025 9:00 AM EST Office Visit [facility] MED & PEDS [address] [place] [address] Ayaka Salgado MD 505 [place] [address] 11/09/2025 9:00 AM EST Clinical Support [facility] MED & PEDS [address] [place] [address] Alana Hook RN 505 [place] [address] documented as of this encounter Visit Diagnoses Not on filedocumented in this encounter Additional Health Concerns Assessment Noted Time PHQ-9 Depression Total Score: 7 08/29/20 22 10:26 AM EST documented as of this encounter Care Teams Plant Facilities Technician Relationship Specialty Start Date End Date Ayaka Salgado MD [address] [place] [address] PCP - General Internal Medicine 09/15/18 documented as of this encounter
--- OUTSIDE RECORDS SUMMARY | 2025-08-17 10:20 | XMS_ITS | Clinical Summary ---
Author Organization [facility] Address [address] [place] [address] Care Team Providers Care Production Scheduler Name Role Phone Ayaka Salgado Primary Care [...] mg by mouth 3 times daily. 4 Active Januvia 25 mg tablet TAKE 1 [...] Description 07/19/2025 12:20 PM EST Office Visit [facility] 4th floor Cardiology Medicine [address] [place] [address] Pipe Fitter Gas Pipe: Alexandre Lynch MD Permanent atrial fibrillation (Primary Dx); Essential hypertension; Pulmonary hypertension ; Coronary atherosclerosis of autologous vein bypass graft without angina; Pre-transplant evaluation for end stage renal disease 07/19/2025 11:00 AM EST - 07/19/2025 11:59 PM EST Hospital Encounter [facility] Pulmonary Function Lab [address] [place] [address] Dyspnea, unspecified type Discharge Disposition: Home or Self Care () 06/28/2025 10:40 AM EDT Follow-Up [facility] Renal Transplant [address] [place] [address] Joey Duarte MD Pre-transplant evaluation for kidney transplant (Primary Dx); Dyspnea, unspecified type; Stage 4 chronic kidney disease 06/28/2025 10:00 AM EDT Social Work [facility] Renal Transplant [address] [place] [address] Hugh Holman 06/28/[address] floor Cardiology Medicine [address] [place] [address] Pipe Fitter Gas Pipe: Ezio Villagran MA PAC General Info 06/21/2025 Telephone [facility] Transplant Department [address] [place] [address] Shima Springer RN 06/16/2025 Documentation [facility] Transplant Department [address] [place] [address] Sheryl Moore RN ABO Dual Validation 06/15/2025 Documentation [facility] Transplant Department [address] [place] [address] Shima Springer RN ABO Dual Validation 06/15/2025 Telephone [facility] Transplant Department [address] [place] [address] Shima Springer RN Referral - Kidney Txp 06/13/2025 10:30 AM EDT Procedure visit [facility] Gastroenterology Clinic [address] [place] [address] Pipe Fitter Gas Pipe: Kaylyn Gilliam RN Stage 4 chronic kidney disease (HCC) 06/13/2025 10:30 AM EDT Follow-Up [facility] Liver Transplant Services [address] [place] [address] Gary Reese MD Hepatomegaly (Primary Dx); Hepatic steatosis; Abnormal finding on imaging of liver 06/13/2025 Orders Only [facility] Gastroenterology Clinic [address] [place] [address] Pipe Fitter Gas Pipe: Kaylyn Gilliam RN Stage 4 chronic kidney [...] Description 10/17/2025 9:30 AM EST Office Visit [facility] [address] [place] [address] Pipe Fitter Gas Pipe: Lissa Vidal DO 55 [facility] [place] [address] 06/13/2026 9:40 AM EDT Follow-Up [facility] Renal Transplant [address] [place] [address] Joey Duarte MD 55 [place] [address] 06/13/2026 10:00 AM EDT Social Work [facility] Renal Transplant [address] [place] [address] Hugh Holman Health Maintenance Due Date Last Done Comments 25 Hydroxy / Vitamin D 1957 Cologuard 1957 Colon Cancer Screening 1957 Colonoscopy 1957 FOBT / Fit Test 1957 PTH 1957 Sigmoidoscopy 1957 Urine Microalbumin 12/09/1967 Pneumococcal Vaccine: 50+ Years [...] Social Drivers of Health Annual Screening 09/15/2024 Influenza Vaccine (#1) 2025 COVID-19 Vaccine ( season) 2025 08/03/2021, 11/03/2020, 10/06/2020 Hemoglobin 07/29/2025 07/29/2024 Phosphorus 07/29/2025 07/29/2024 Fall Risk Screening 07/19/2026 07/19/2025 Diabetes Screening 02/23/2028 02/22/2025, 0 11/22/2024, 07/29/2024, Additional history exists CKD: Referral to Nutrition Completed 07/29/2024 Hepatitis C Screening Completed 07/29/2024 CKD: Referral to Nephrology Completed 06/28/2025 Hepatitis B Vaccines Aged Out No long er eligible based on patient's age to complete this topic Procedures * Due to [place] state law, this organization might not be sharing negative HIV tests. Procedure Name Priority Date/Time Associated Diagnosis Comments ECG 12-LEAD Routine 07/19/2025 12:11 PM EST Permanent atrial fibrillation Essential hypertension Pulmonary hypertension Coronary atherosclerosis of autologous vein bypass graft without angina Pre-transplant evaluation for end stage renal disease TRANSIENT ELASTOGRAPHY Routine 06/13/2025 9:23 AM EDT Stage 4 chronic kidney disease (HCC) HEMOGLOBIN A1C Routine 07/29/2024 12:57 PM EST Pre-transplant evaluation for end stage renal disease Chronic kidney disease, stage IV (severe) Controlled type 2 diabetes mellitus with diabetic nephropathy, with long-term current use of insulin HEPATITIS C ANTIBODY W/REFLEX TO HCV RNA, QUANTITATIVE PCR Routine 07/29/2024 12:57 PM EST Pre-transplant evaluation for end stage renal disease Chronic kidney disease, stage IV (severe) CBC AUTO DIFFERENTIAL Routine 07/29/2024 12:57 PM EST Pre-transplant evaluation for end stage renal disease Chronic kidney disease, stage IV (severe) PHOSPHORUS Routine 07/29/2024 12:57 PM EST Pre-transplant evaluation for end stage renal disease Chronic kidney disease, stage IV (severe) from Last 3 Months or Most Recently Relevant to Health Maintenance Results * Due to [place] state law, this organization might not be sharing negative HIV tests. * ECG 12 lead (07/19/2025 12:11 PM EST) Ventricular Rate EKG 50 BPM MUSE EKG QRS Interval 152 ms MUSE EKG QT Interval 496 ms MUSE EKG QTC Interval 452 ms MUSE EKG R [place] 243 degrees MUSE EKG T Wave [place] 18 degrees MUSE EKG 07/19/2025 12:1 1 PM EST 07/27/2025 7:48 AM EST Impressions MUSE EKG - 07/27/2025 7:48 AM EST ATRIAL FIBRILLATION WITH SLOW VENTRICULAR RESPONSE RIGHT BUNDLE BRANCH BLOCK ABNORMAL ECG NO PREVIOUS ECGS AVAILABLE Confirmed by Francis Vera ([id number]) on 07/27/2025 7:48:28 AM Narrative Procedure Note Francis Vera MD - 07/27/2025 IMPRESSION: ATRIAL FIBRILLATION WITH SLOW VENTRICULAR RESPONSE RIGHT BUNDLE BRANCH BLOCK ABNORMAL ECG NO PREVIOUS ECGS AVAILABLE Confirmed by Francis Vera ([id number]) on 07/27/2025 7:48:28 AM us Alexandre Piña [...] IQR 0.6 FIBROSCAN IQR/Median Ratio 12 FIBROSCAN Direct Support Professional Caregiver Name Terrence RN FIBROSCAN Probe Size XL FIBROSCAN 06/13/2025 9:23 AM EDT Impressions FIBROSCAN - 06/13/2025 4:51 PM EDT FIBROSCAN REPORT Lewis Snyder is a 69 y.o. male referred for a FIBROSCAN Referring Physician: Gary Reese MD [address] [place] [address] PRIMARY CARE PROVIDER: Ayaka Salgado Procedure Done [...] - 0.20 10*3/uL 07/29/2024 1:35 PM EST [facility] nRBC % 0.0 /100 WBCs 07/29/2024 1:35 PM EST [facility] nRBC # <0.01 <0.01 10*3/uL 07/29/2024 1:35 PM EST [facility] Blood Structure of peripheral vein / Unknown Venipuncture / Unknown 07/29/2024 12:57 PM EST 07/29/2024 1:29 PM EST Joey Duarte MD LAB BLOOD ORDERABLES María l Result [facility] [address] [place] [address], [place] * Hepatitis C Antibody w/Reflex to PCR (07/29/2024 12:57 PM EST) Hepatitis C Antibody NON-REACT [place] NON-REACT [place] 07/30/2024 3:03 AM EST [facility] Comment: HCV antibody was non-reactive. There is no laboratory evidence of HCV infection. In most cases, no further action is required. However, if recent HCV exposure is suspected, a test for HCV RNA (test code 55026) is suggested. For additional information please refer to http://education.[employer]/faq/SCF26p1 (This link is being provided for informational/ educational purposes only.) Blood Structure of peripheral vein / Unknown Venipuncture / Unknown 07/29/2024 12:57 PM EST 07/29/2024 1:32 PM EST Narrative [facility] - 07/30/2024 3:03 AM EST [facility] Received Date: us Joey Duarte MD LAB BLOOD ORDERABLES María l Result [facility] [address]rd Floor, [place] [address], [place] [phone] [facility] [address] [place] [address] 3rd Floor, [place] [address], * Phosphorus (07/29/2024 12:57 PM EST) Phosphorus 4.5 2.5 - 4.5 mg/dL 07/29/2024 2:00 PM EST [facility] Blood Structure of peripheral vein / Unknown Venipuncture / Unknown 07/29/2024 12:57 PM EST 07/29/2024 1:29 PM EST us Joey Duarte MD LAB BLOOD ORDERABLES María howard Result [facility] [address] [place] [address], [place] * (ABNORMAL) Hemoglobin A1c (07/29/2024 12:57 PM EST) Hemoglobin A1C 6.7(H) <5.7 % of total Hgb 07/30/2024 1:59 AM EST [facility] Comment: For someone without known diabetes, a [...] (MG/DL) 146 mg/dL 07/30/2024 1:59 AM EST [facility] eAG (MMOL/L) 8.1 mmol/L 07/30/2024 1:59 AM EST [facility] Blood Structure of peripheral vein / Unknown Venipuncture / Unknown 07/29/2024 12:57 PM EST 07/29/2024 1:32 PM EST Narrative [facility] - 07/30/2024 1:59 AM EST [facility] Received Date: us Joey Duarte MD LAB BLOOD ORDERABLES María lee Result [facility] [address] Floor, [address] [place] [address], [place] [phone] [facility] [address], [place] [address], [place] [phone] from Last 3 Months or Most Recently Relevant to Health Maintenance Insurance [facility] Advance Directives Documents on File Type Date Recorded Patient Perinatal Director Expl anation Health Care Proxy 08/05/2024 4:14 PM 11- Care Teams Production Scheduler Relationship Specialty Start Date End Date Ayaka Salgado [address] [place] [address] PCP - General Internal Medicine 07/29/24
--- OUTSIDE RECORDS SUMMARY | 2025-08-17 10:20 | XMS_ITS | Encounter Summary ---
Author Organization [employer] Address [address] [facility] 7t [place] [address] Care Team Providers Care Forex Trader Name Role Phone Ayaka Salgado MD Primary Care Provider [phone] Encounter Details Date Type Department Care Team ([facility] st Contact Info) Description 09/22/2023 Orders Only [facility] CHC MED & PEDS [address] [place] [address] Ayaka Salgado MD [address] [place], [place] [phone] Simple chronic bronchitis (CMS/HCC) (Primary Dx) Social [...] 10/05/2025 9:00 AM EST Office Visit [facility]ED[facility] [address] [place] [address] Ayaka Salgado MD [address] [place] [address] 11/09/2025 9:00 AM EST Clinical Support [facility] MED [facility]EDS [address] [place] [address] Alana Hook, RN [address] [place] [address] documented as of this encounter Visit Diagnoses Diagnosis Simple chronic bronchitis (CMS/HCC) (HCC)- Primary Simple chronic bronchitis documented in this encounter Additional Health Concerns Assessment Noted Time PHQ-9 Depression Total Score: 7 08/29/20 22 10:26 AM EST documented as of this encounter Care Teams Forex Trader Relationship Specialty Start Date End Date Ayaka Salgado MD [address] [place] [address] PCP - General Internal Medicine 09/15/18 documented as of this encounter
--- OUTSIDE RECORDS SUMMARY | 2025-08-17 10:21 | XMS_ITS | Encounter Summary ---
Author Organization [employer] Address [address] [place] [address] 7 [place] [address] Care Team Providers Care Edge Blacker Name Role Phone Ayaka Salgado MD Primary Care Provider [phone] Reason for Visit * Reason Onset Date Comments Nurse Triage 02/04/2025 Encounter Details Date Type Department Care Team ([facility] st Contact Info) Description 02/04/[address] [facility] MED & PEDS [address] [place] [address] Ayaka Salgado MD 505 [place] [address] Nurse Triage Social History Tobacco Use Types [...] 1:44 PM EDT Tc from child care sitter Jaleel stating pt had cardiac procedure done. Jaleel reported pt removed bandage and is bleeding. Bindery Operator advise will send a message to triage nurse. Contact pt at [phone] If any questions Jaleel at [phone] ext [phone] documented in this encounter Plan of Treatment Upcoming Encounters Date Type Department Care Team (Late st Contact Info) Description 10/05/2025 9:00 AM EST Office Visit [facility] MED & PEDS [address] [place] [address] Ayaka Salgado MD 505 [place] [address] 11/09/2025 9:00 AM EST Clinical Support [facility] MED [facility] PEDS [address] [place] [address] Alana Hook, RN 505 [place] [address] documented as of this encounter Visit Diagnoses Diagnosis Arthropathy Unspecified arthropathy, site unspecified documented in this encounter Additional Health Concerns Assessment Noted Time PHQ-9 Depression Total Score: 12 025 11:13 AM EDT documented as of this encounter Care Teams Edge Blacker Relationship Specialty Start Date End Date Ayaka Salgado MD 505 [place] [address] PCP - General Internal Medicine 09/15/18 documented as of this encounter
--- OUTSIDE RECORDS SUMMARY | 2025-08-17 10:21 | XMS_ITS | Encounter Summary ---
Author Organization [employer] Address [address] [place] [address] 7 [place] [address] Care Team Providers Care Mattress Finisher Name Role Phone Ayaka Salgado MD Primary Care Provider [phone] Reason for Visit * Reason Comments Med Refill Encounter Details Date Type Department Care Team ([facility] st Contact Info) Description 02/24/2023 Refill [facility] CHC MED & PEDS 505 [place] [address] Ayaka Salgado MD 505 [place] [address] Social History Tobacco Use Types Packs/Day Years [...] Description 10/05/2025 9:00 AM EST Office Visit [facility] MED & PEDS [address] [place] [address] Ayaka Salgado MD 505 [place] [address] 11/09/2025 9:00 AM EST Clinical Support [facility] MED & PEDS [address] [place] [address] Alana Hook RN 505 [place] [address] documented as of this encounter Visit Diagnoses Not on filedocumented in this encounter Additional Health Concerns Assessment Noted Time PHQ-9 Depression Total Score: 7 08/29/20 22 10:26 AM EST documented as of this encounter Care Teams Mattress Finisher Relationship Specialty Start Date End Date Ayaka Salgado MD 505 [place] [address] PCP - General Internal Medicine 09/15/18 documented as of this encounter
--- OUTSIDE RECORDS SUMMARY | 2025-08-17 10:21 | XMS_ITS | Encounter Summary ---
Author Organization [employer] Address [address] [facility] 7t [place] [address] Care Team Providers Care Senior Master Scheduler Name Role Phone Ayaka Salgado MD Primary Care Provider [phone] Encounter Details Date Type Department Care Team (Latest Contact Info) Description 08/17/2025 Travel Social History Tobacco Use Types Packs/Day [...] ([facility] st Contact Info) Description 10/05/2025 9:00 AM EST Office Visit [facility] MED & PEDS [address] [place] [address] Ayaka Salgado MD 505 [place] [address] 11/09/2025 9:00 AM EST Clinical Support [facility] MED & PEDS [address] [place] [address] Alana Hook RN 505 [place] [address] documented as of this encounter Goals Goal [...] as of this encounter Care Teams Senior Master Scheduler Relationship Specialty Start Date End Date Ayaka Salgado MD [address] [place] [address] PCP - General Internal Medicine 09/15/18 documented as of this encounter
--- OUTSIDE RECORDS SUMMARY | 2025-08-17 10:21 | XMS_ITS | Encounter Summary ---
Author Organization [employer] Address 75 [facility] 7 [place] [address] Care Team Providers Care Appliances Sample Maker Name Role Phone Ayaka Salgado MD Primary Care Provider [phone] Reason for Visit * Reason Onset Date Comments Med Refill 02/08/2025 Encounter Details Date Type Department Care Team ([facility] st Contact Info) Description 02/08/2025 Telephone [facility] MEDICINE [address] [place], [place] [phone] Ayaka Salgado MD 505 [facility] [place] [address] Med Refill Social History Tobacco Use Types [...] requesting status of medication. Contact pt at [phone] * Telephone Encounter - Cleopatra Ortiz - 02/08/2025 10:21 AM EDT TC from pt requesting medication refill. Medications needing refill : oxyCODONE-acetaminophen (Percocet) 5-325 MG tablet To be sent to: [facility] #[id number] - [place] - [address] [facility] [place] documented in this encounter Plan of Treatment Upcoming Encounters Date Type Department Care Team ([facility] st Contact Info) Description 10/05/2025 9:00 AM EST Office Visit [facility] MED [facility] [address] [place] [address] Ayaka Salgado MD 505 [place] [address] 11/09/2025 9:00 AM EST Clinical Support [facility] MED & PEDS [address] [place] [address] Alana Hook, RACHELLE 505 [place] [address] documented as of this encounter Visit Diagnoses Not on filedocumented in this encounter Additional Health Concerns Assessment Noted Time PHQ-9 Depression Total Score: 12 025 11:13 AM EDT documented as of this encounter Care Teams Appliances Sample Maker Relationship Specialty Start Date End Date Ayaka Salgado MD 505 [place] [address] PCP - General Internal Medicine 09/15/18 documented as of this encounter
--- OUTSIDE RECORDS SUMMARY | 2025-08-17 10:21 | XMS_ITS | Encounter Summary ---
Author Organization [employer] Address 75 [facility] 7t [place] [address] Care Team Providers Care Seat Builder Name Role Phone Ayaka Salgado MD Primary Care Provider [phone] Reason for Visit * Reason Comments Med Refill Encounter Details Date Type Department Care Team (Late st Contact Info) Description 03/02/2024 Refill [facility] MEDICINE 230 [place] [address] Ayaka Salgado MD 505 [facility] [address] [place] [phone] Primary osteoarthritis involving multiple joints Social History [...] [facility] 505 [place] [address] Ayaka Salgado MD 505 [place] [address] 11/09/2025 9:00 AM EST Clinical Support [facility] MED & PEDS 505 [place] [address] Alana Hook, RACHELLE 505 [place] [address] documented as of this encounter Visit Diagnoses Diagnosis Primary osteoarthritis involving multiple joints documented in this encounter Additional Health Concerns Assessment Noted Time PHQ-9 Depression Total Score: 7 08/29/20 22 10:26 AM EST documented as of this encounter Care Teams Seat Builder Relationship Specialty Start Date End Date Ayaka Salgado MD 505 [place] [address] PCP - General Internal Medicine 09/15/18 documented as of this encounter
--- OUTSIDE RECORDS SUMMARY | 2025-08-17 10:21 | XMS_ITS | Encounter Summary ---
Author Organization [employer] Address [address] [place] [address] 7t [place] [address] Care Team Providers Care Pot Builder Name Role Phone Ayaka Salgado MD Primary Care Provider [phone] Encounter Details Date Type Department Care Team (Late st Contact Info) Description 02/19/2023 Abstract [facility] Information Management 230 [place] [address] Ayaka Salgado MD 505 [place], [place] [phone] Social History Tobacco Use Types Packs/Day Years [...] 9:00 AM EST Office Visit [facility] MED & PEDS 505 [place] [address] Ayaka Salgado MD 505 [place] [address] 11/09/2025 9:00 AM EST Clinical Support [facility] MED & PEDS 505 [place] [address] Alana Hook RN 505 [place] [address] documented as of this encounter Visit Diagnoses Not on filedocumented in this encounter Additional Health Concerns Assessment Noted Time PHQ-9 Depression Total Score: 7 08/29/20 22 10:26 AM EST documented as of this encounter Care Teams Pot Builder Relationship Specialty Start Date End Date Ayaka Salgado MD 505 [place] [address] PCP - General Internal Medicine 09/15/18 documented as of this encounter
--- OUTSIDE RECORDS SUMMARY | 2025-08-17 10:21 | XMS_ITS | Encounter Summary ---
Author Organization [employer] Address 75 [facility] 7 [place] [address] Care Team Providers Care Service Desk Team Lead Name Role Phone Ayaka Salgado MD Primary Care Provider [phone] Reason for Visit * Reason Onset Date Comments Med Refill 02/28/2025 Encounter Details Date Type Department Care Team ([facility] st Contact Info) Description 02/28/2025 Telephone [facility] MEDICINE 230 [place], [place] [phone] Ayaka Salgado MD 505 [facility] [place] [address] Med Refill Social History Tobacco Use Types [...] 5-325 MG tablet To be sent to: [id number] - [place] [address] [place] [address] [facility] documented in this encounter Plan of Treatment Upcoming Encounters Date Type Department Care Team ([facility] st Contact Info) Description 10/05/2025 9:00 AM EST Office Visit [facility] MED & PEDS 505 [facility] [place] [address] Ayaka Salgado MD 505 [facility] [place] [address] 11/09/2025 9:00 AM EST Clinical Support [facility] MED & PEDS 505 [place] [address] Alana Hook, RACHELLE 505 [place], [place] [phone] documented as of this encounter Visit Diagnoses Not on filedocumented in this encounter Additional Health Concerns Assessment Noted Time PHQ-9 Depression Total Score: 12 11/22/ 025 11:13 AM EDT documented as of this encounter Care Teams Service Desk Team Lead Relationship Specialty Start Date End Date Ayaka Salgado MD 505 [place] [address] PCP - General Internal Medicine 09/15/18 documented as of this encounter
--- OUTSIDE RECORDS SUMMARY | 2025-08-17 10:21 | XMS_ITS | Encounter Summary ---
Author Organization [employer] Address [address] [place] [address] Care Team Providers Care Bookkeepers Supervisor Name Role Phone Ayaka Salgado MD Primary Care Provider [phone] Reason for Visit * Reason Onset Date Comments Med Refill 12/12/2022 Encounter Details Date Type Department Care Team ([facility] st Contact Info) Description 12/12/2022 Telephone [facility] MED & PEDS 505 [place] [address] Ayaka Salgado MD 505 [place] [address] Med Refill Social History Tobacco Use Types [...] (Norvasc) 5 MG tablet Please sent to [facility][id number] - [place] - [address] [facility] [place] documented in this encounter Plan of Treatment Upcoming Encounters Date Type Department Care Team ([facility] st Contact Info) Description 10/05/2025 9:00 AM EST Office Visit [facility] MED & PEDS 505 [place] [address] Ayaka Salgado MD 505 [place] [address] 11/09/2025 9:00 AM EST Clinical Support [facility] MED & PEDS 505 [place] [address] Alana Hook, RACHELLE 505 [place] [address] documented as of this encounter Visit Diagnoses Not on filedocumented in this encounter Additional Health Concerns Assessment Noted Time PHQ-9 Depression Total Score: 7 08/29/20 22 10:26 AM EST documented as of this encounter Care Teams Bookkeepers Supervisor Relationship Specialty Start Date End Date Ayaka Salgado MD 505 [place] [address] PCP - General Internal Medicine 09/15/18 documented as of this encounter
--- OUTSIDE RECORDS SUMMARY | 2025-08-17 10:21 | XMS_ITS | Encounter Summary ---
Author Organization [employer] Address 75 [facility] 7t [place] [address] Care Team Providers Care Armored Vehicle Officer Name Role Phone Ayaka Salgado MD Primary Care Provider [phone] Reason for Visit * Reason Comments Med Refill Encounter Details Date Type Department Care Team ([facility] st Contact Info) Description 06/15/2024 Refill [facility] MEDICINE 230 [place], [place] [phone] Lev Gentile MD 230 [place], [place] [phone] Chronic pruritus Social History Tobacco Use Types [...] 9:00 AM EST Office Visit [facility] MED & PEDS 505 [place] [address] Ayaka Salgado MD 505 [place] [address] 11/09/2025 9:00 AM EST Clinical Support [facility] MED & PEDS 505 [place] [address] Alana Hook, RACHELLE 505 [place] [address] documented as of this encounter Visit Diagnoses Diagnosis Chronic pruritus documented in this encounter Additional Health Concerns Assessment Noted Time PHQ-9 Depression Total Score: 7 08/29/20 22 10:26 AM EST documented as of this encounter Care Teams Armored Vehicle Officer Relationship Specialty Start Date End Date Ayaka Salgado MD 505 [place] [address] PCP - General Internal Medicine 09/15/18 documented as of this encounter
--- OUTSIDE RECORDS SUMMARY | 2025-08-17 10:21 | XMS_ITS | Encounter Summary ---
Author Organization [employer] Address 75 [facility] 7 [place] [address] Care Team Providers Care Netezza Architect Name Role Phone Ayaka Salgado MD Primary Care Provider [phone] Reason for Visit * Reason Onset Date Comments Med Refill 01/25/2025 Encounter Details Date Type Department Care Team ([facility] st Contact Info) Description 01/25/2025 Telephone [facility] MEDICINE 230 [place], [place] [phone] Ayaka Salgado MD 505 [facility] [place] [address] Med Refill Social History Tobacco Use Types [...] 10 MG tablet To be sent to: [facility] #[id number] [place] - [address] [facility] [place] documented in this encounter Plan of Treatment Upcoming Encounters Date Type Department Care Team (Late st Contact Info) Description 10/05/2025 9:00 AM EST Office Visit [facility] MED & PEDS [address] [place] [address] Ayaka Salgado MD 505 [place] [address] 11/09/2025 9:00 AM EST Clinical Support [facility] MED & PEDS [address] [place] [address] Alana Hook RN [address] [place] [address] documented as of this encounter Visit Diagnoses Not on filedocumented in this encounter Additional Health Concerns Assessment Noted Time PHQ-9 Depression Total Score: 12 025 11:13 AM EDT documented as of this encounter Care Teams Netezza Architect Relationship Specialty Start Date End Date Ayaka Salgado MD 505 [place] [address] PCP - General Internal Medicine 09/15/18 documented as of this encounter
--- OUTSIDE RECORDS SUMMARY | 2025-08-17 10:21 | XMS_ITS | Encounter Summary ---
Author Organization [employer] Address [address] [place] [address] Care Team Providers Care Glass Or Mirror Inspector Name Role Phone Ayaka Salgado MD Primary Care Provider [phone] Reason for Visit * Reason Onset Date Comments Letter Accomodation 12/12/2022 Encounter Details Date Type Department Care Team ([facility] st Contact Info) Description 12/12/2022 Telephone [facility] MED & PEDS 505 [place] [address] Ayaka Salgado MD 505 [place] [address] Letter Accomodation Social History Tobacco Use Types [...] hisPercocet. Advised message will be forwarded to PELLET MILL OPERATOR nurse regarding his request. Pt verbalizes understanding. * Telephone Encounter - Abiel [place] - 12/12/2022 9:32 AM EDT Tc from pt requesting an Accomodation letter. Please contact pt at [phone] documented in this encounter Plan of Treatment Upcoming Encounters Date Type Department Care Team (Late st Contact Info) Description 10/05/2025 9:00 AM EST Office Visit [facility] MED & PEDS 505 [place] [address] Ayaka Salgado MD 505 [place] [address] 11/09/2025 9:00 AM EST Clinical Support [facility] CHC MED & PEDS 505 [place] [address] Alana Hook RN 505 [place] [address] documented as of this encounter Visit Diagnoses Diagnosis Congestive heart failure, unspecified HF chronicity, unspecified heart failure type (HCC) Primary osteoarthritis involving multiple joints documented in this encounter Additional Health Concerns Assessment Noted Time PHQ-9 Depression Total Score: 7 08/29/20 22 10:26 AM EST documented as of this encounter Care Teams Glass Or Mirror Inspector Relationship Specialty Start Date End Date Ayaka Salgado MD 505 [place] [address] PCP - General Internal Medicine 09/15/18 documented as of this encounter
--- OUTSIDE RECORDS SUMMARY | 2025-08-17 10:21 | XMS_ITS | Encounter Summary ---
Author Organization [employer] Address [address] [place] [address] 7 [place] [address] Care Team Providers Care Canal Driver Name Role Phone Ayaka Salgado MD Primary Care Provider [phone] Reason for Visit * Reason Comments Med Refill Encounter Details Date Type Department Care Team ([facility] st Contact Info) Description 01/06/2023 Refill [facility] CHC MED & PEDS 505 [place] [address] Ayaka Salgado MD 505 [place] [address] Primary osteoarthritis involving multiple joints Social History [facility] [address] [place] [address] Ayaka Salgado MD 505 [place] [address] 11/09/2025 9:00 AM EST Clinical Support [facility] MED & PEDS 505 [place] [address] Alana Hook, RACHELLE 505 [place] [address] documented as of this encounter Visit Diagnoses Diagnosis Primary osteoarthritis involving multiple joints documented in this encounter Additional Health Concerns Assessment Noted Time PHQ-9 Depression Total Score: 7 08/29/20 22 10:26 AM EST documented as of this encounter Care Teams Canal Driver Relationship Specialty Start Date End Date Ayaka Salgado MD 505 [place] [address] PCP - General Internal Medicine 09/15/18 documented as of this encounter
--- OUTSIDE RECORDS SUMMARY | 2025-08-17 10:21 | XMS_ITS | Encounter Summary ---
Author Organization [employer] Address 75 [facility] 7 [place] [address] Care Team Providers Care Loss Prevention/Safety District Manager Name Role Phone Ayaka Salgado MD Primary Care Provider [phone] Reason for Visit * Reason Onset Date Comments Med Refill 09/29/2024 Encounter Details Date Type Department Care Team (Late st Contact Info) Description 09/29/2024 Refill [facility] MEDICINE 230 [place] [address] Ayaka Salgado MD 505 [facility] [address] [place] [phone] Arthropathy (Primary Dx) Social History Tobacco Use [...] 5-325 MG tablet To be sent to: [facility][id number] [place], [place] - [facility] [place] [facility] documented in this encounter Plan of Treatment Upcoming Encounters Date Type Department Care Team ([facility] st Contact Info) Description 10/05/2025 9:00 AM EST Office Visit [facility] MED & PEDS 505 [place] [address] Ayaka Slagado MD 505 [place] [address] 11/09/2025 9:00 AM EST Clinical Support [facility] MED & PEDS 505 [place] [address] Alana Hook RN 505 [place] [address] documented as of this encounter Visit Diagnoses Diagnosis Arthropathy- Primary Unspecified arthropathy, site unspecified documented in this encounter Additional Health Concerns Assessment Noted Time PHQ-9 Depression Total Score: 7 08/29/20 22 10:26 AM EST documented as of this encounter Care Teams Loss Prevention/Safety District Manager Relationship Specialty Start Date End Date Ayaka Salgado MD 505 [place] [address] PCP - General Internal Medicine 09/15/18 documented as of this encounter
--- OUTSIDE RECORDS SUMMARY | 2025-08-17 10:21 | XMS_ITS | Encounter Summary ---
Author Organization [employer] Address 75 [facility] 7 [place] [address] Care Team Providers Care Adoption Counselor Name Role Phone Ayaka Salgado MD Primary Care Provider [phone] Reason for Visit * Reason Onset Date Comments Med Refill 01/19/2025 Encounter Details Date Type Department Care Team ([facility] st Contact Info) Description 01/19/2025 Telephone [facility] MEDICINE 230 [place], [place] [phone] Ayaka Salgado MD 505 [facility] [place] [address] Med Refill Social History Tobacco Use Types [...] refills and Ambien to soon for refill SENIOR SAFETY SUPPORT MANAGER checked on 01/19/25 last filled on 12/26/24 #30. * Telephone Encounter - Cleopatra Ortiz - 01/19/2025 8:14 AM EDT TC from pt requesting medication refill. Medications needing refill : melatonin 5 MG tablet zolpidem (Ambien) 10 MG tablet To be sent to: [facility] #[id number] - [place], [place] - [address] [facility] [place] documented in this encounter Plan of Treatment Upcoming Encounters Date Type Department Care Team ([facility] st Contact Info) Description 10/05/2025 9:00 AM EST Office Visit [facility] MED & PEDS 505 [place] [address] Ayaka Salgado MD 505 [place] [address] 11/09/2025 9:00 AM EST Clinical Support [facility] MED & PEDS 505 [place] [address] Alana Hook, RACHELLE 505 [place] [address] documented as of this encounter Visit Diagnoses Not on filedocumented in this encounter Additional Health Concerns Assessment Noted Time PHQ-9 Depression Total Score: 12 025 11:13 AM EDT documented as of this encounter Care Teams Adoption Counselor Relationship Specialty Start Date End Date Ayaka Salgado MD 505 [place] [address] PCP - General Internal Medicine 09/15/18 documented as of this encounter
--- OUTSIDE RECORDS SUMMARY | 2025-08-17 10:21 | XMS_ITS | Encounter Summary ---
Author Organization [employer] Address 75 [facility] 7 [place] [address] Care Team Providers Care Filenet P8 Developer Name Role Phone Ayaka Salgado MD Primary Care Provider [phone] Reason for Visit * Reason Onset Date Comments Med Refill 01/19/2025 Encounter Details Date Type Department Care Team ([facility] st Contact Info) Description 01/19/2025 Telephone [facility] MEDICINE [address] [place], [place] [phone] Ayaka Salgado MD 505 [facility] [place] [address] Med Refill Social History Tobacco Use Types [...] 5-325 MG tablet To be sent to: [id number] - [place], [place] - [facility] documented in this encounter Plan of Treatment Upcoming Encounters Date Type Department Care Team ([facility] st Contact Info) Description 10/05/2025 9:00 AM EST Office Visit [facility] MED & PEDS [address] [facility] [place] [address] Ayaka Salgado MD 505 [place] [address] 11/09/2025 9:00 AM EST Clinical Support [facility] MED & PEDS 505 [place] [address] Alana Hook, RACHELLE 505 [place], [place] [phone] documented as of this encounter Visit Diagnoses Not on filedocumented in this encounter Additional Health Concerns Assessment Noted Time PHQ-9 Depression Total Score: 12 11/22/ 025 11:13 AM EDT documented as of this encounter Care Teams Filenet P8 Developer Relationship Specialty Start Date End Date Ayaka Salgado MD 505 [place] [address] PCP - General Internal Medicine 09/15/18 documented as of this encounter
--- OUTSIDE RECORDS SUMMARY | 2025-08-17 10:21 | XMS_ITS | Encounter Summary ---
Author Organization [employer] Address 75 [facility] 7 [place] [address] Care Team Providers Care Gold Leaf Printer Name Role Phone Ayaka Salgado MD Primary Care Provider [phone] Reason for Visit * Reason Comments Med Refill Encounter Details Date Type Department Care Team (Late st Contact Info) Description 10/07/2022 Refill [facility] 230 [place] [address] Ayaka Salgado MD [address] [facility] [address] [place] [address] Primary osteoarthritis involving multiple joints Social History [...] Description 10/05/2025 9:00 AM EST Office Visit [facility] MED & PEDS 505 [place] [address] Ayaka Salgado MD 505 [place] [address] 11/09/2025 9:00 AM EST Clinical Support [facility] MED & PEDS 505 [place] [address] Alana Hook RN 505 [place] [address] documented as of this encounter Visit Diagnoses Diagnosis Primary osteoarthritis involving multiple joints documented in this encounter Additional Health Concerns Assessment Noted Time PHQ-9 Depression Total Score: 7 08/29/20 22 10:26 AM EST documented as of this encounter Care Teams Gold Leaf Printer Relationship Specialty Start Date End Date Ayaka Salgado MD 505 [place] [address] PCP - General Internal Medicine 09/15/18 documented as of this encounter
--- OUTSIDE RECORDS SUMMARY | 2025-08-17 10:21 | XMS_ITS | Encounter Summary ---
Author Organization [employer] Address [address] [place] [address] 7t [place] [address] Care Team Providers Care Ultrasound Spec Name Role Phone Ayaka Salgado MD Primary Care Provider [phone] Encounter Details Date Type Department Care Team (Late st Contact Info) Description 01/23/2023 Abstract [facility] Information Management 230 [place] [address] Ayaka Salgado MD 505 [place], [place] [phone] Social History Tobacco Use Types Packs/Day Years [...] 9:00 AM EST Office Visit [facility] MED & PEDS 505 [place] [address] Ayaka Salgado MD 505 [place] [address] 11/09/2025 9:00 AM EST Clinical Support [facility] MED & PEDS 505 [place] [address] Alana Hook RN 505 [place] [address] documented as of this encounter Visit Diagnoses Not on filedocumented in this encounter Additional Health Concerns Assessment Noted Time PHQ-9 Depression Total Score: 7 08/29/20 22 10:26 AM EST documented as of this encounter Care Teams Ultrasound Spec Relationship Specialty Start Date End Date Ayaka Salgado MD 505 [place] [address] PCP - General Internal Medicine 09/15/18 documented as of this encounter
--- OUTSIDE RECORDS SUMMARY | 2025-08-17 10:21 | XMS_ITS | Encounter Summary ---
Author Organization [employer] Address 75 [facility] 7t [place] [address] Care Team Providers Care Jet Mechanic Name Role Phone Ayaka Salgado MD Primary Care Provider [phone] Encounter Details Date Type Department Care Team (Late st Contact Info) Description 10/11/2022 Orders Only [facility] MEDICINE 230 [place] [address] Ayaka Salgado MD [address] [place] [phone] Congestive heart failure, unspecified HF chronicity, unspecified [...] Health And Well[facility] st Contact Info) Description 10/05/2025 9:00 AM EST Office Visit [facility] MED & PEDS 505 [place] [address] Ayaka Salgado MD 505 [place] [address] 11/09/2025 9:00 AM EST Clinical Support [facility] MED & PEDS 505 [place] [address] Alana Hook RN 505 [place] [address] documented as of this encounter Visit Diagnoses Diagnosis Congestive heart failure, unspecified HF chronicity, unspecified heart failure type (HCC) Edema of foot Edema documented in this encounter Additional Health Concerns Assessment Noted Time PHQ-9 Depression Total Score: 7 08/29/20 22 10:26 AM EST documented as of this encounter Care Teams Jet Mechanic Relationship Specialty Start Date End Date Ayaka Salgado MD [address] [place] [address] PCP - General Internal Medicine 09/15/18 documented as of this encounter
--- OUTSIDE RECORDS SUMMARY | 2025-08-17 10:21 | XMS_ITS | Encounter Summary ---
Author Organization [employer] Address [address] [place] [address] 7t [place] [address] Care Team Providers Care Pole Incisor Operator Name Role Phone Ayaka Salgado MD Primary Care Provider [phone] Encounter Details Date Type Department Care Team ([facility] st Contact Info) Description 03/04/2025 Orders Only [facility] CH[facility] MED & PEDS 505 [place] [address] Ayaka Salgado MD 505 [place], [place] [phone] Social History Tobacco Use Types Packs/Day Years [...] 10/05/2025 9:00 AM EST Office Visit [facility] MED & PEDS 505 [place] [address] Ayaka Salgado MD 505 [place] [address] 11/09/2025 9:00 AM EST Clinical Support [facility] MED & PEDS 505 [place] [address] Alana Hook, RACHELLE 505 [place] [address] documented as of this encounter Visit Diagnoses Not on filedocumented in this encounter Additional Health Concerns Assessment Noted Time PHQ-9 Depression Total Score: 12 025 11:13 AM EDT documented as of this encounter Care Teams Pole Incisor Operator Relationship Specialty Start Date End Date Ayaka Salgado MD 505 [place] [address] PCP - General Internal Medicine 09/15/18 documented as of this encounter
--- OUTSIDE RECORDS SUMMARY | 2025-08-17 10:21 | XMS_ITS | Encounter Summary ---
Author Organization [employer] Address 75 [facility] 7t [place] [address] Care Team Providers Care Chemical Operator Name Role Phone Ayaka Salgado MD Primary Care Provider [phone] Encounter Details Date Type Department Care Team (Late st Contact Info) Description 06/14/2025 Orders Only [facility] CHC MED & PEDS [address] [place] [address] Provider, MD Ran Social History Tobacco Use [...] Team ([facility] st Contact Info) Description 10/05/2025 9:00 AM EST Office Visit [facility] MED & PEDS 505 [place] [address] Ayaka Salgado MD 505 [place] [address] 11/09/2025 9:00 AM EST Clinical Support [facility] MED & PEDS 505 [place] [address] Alana Hook RN 505 [place] [address] documented as of this encounter Procedures Procedure [...] documented as of this encounter Care Teams Chemical Operator Relationship Specialty Start Date End Date Ayaka Salgado MD [address] [place] [address] PCP - General Internal Medicine 09/15/18 documented as of this encounter
--- OUTSIDE RECORDS SUMMARY | 2025-08-17 10:21 | XMS_ITS | Encounter Summary ---
Author Organization [employer] Address [address] [place] [address] 7 [place] [address] Care Team Providers Care Staff Assistant Name Role Phone Ayaka Salgado MD Primary Care Provider [phone] Encounter Details Date Type Department Care Team ([facility] st Contact Info) Description 02/10/2025 Orders Only [facility] CHC MED & PEDS 505 [place] [address] Ayaka Salgado MD 505 [place], [place] [phone] Arthropathy Social History Tobacco Use Types Packs/Day [...] 9:00 AM EST Office Visit [facility] MED & PEDS 505 [place] [address] Ayaka Salgado MD 505 [place] [address] 11/09/2025 9:00 AM EST Clinical Support [facility] MED & PEDS 505 [place] [address] Alana Hook RN 505 [place] [address] documented as of this encounter Visit Diagnoses Diagnosis Arthropathy Unspecified arthropathy, site unspecified documented in this encounter Additional Health Concerns Assessment Noted Time PHQ-9 Depression Total Score: 12 025 11:13 AM EDT documented as of this encounter Care Teams Staff Assistant Relationship Specialty Start Date End Date Ayaka Salgado MD 505 [place] [address] PCP - General Internal Medicine 09/15/18 documented as of this encounter
--- OUTSIDE RECORDS SUMMARY | 2025-08-17 10:21 | XMS_ITS | Encounter Summary ---
Author Organization [employer] Address [address] [place] [address] 7 [place] [address] Care Team Providers Care Pail Bailer Name Role Phone Ayaka Salgado MD Primary Care Provider [phone] Reason for Visit * Reason Comments Med Refill Encounter Details Date Type Department Care Team ([facility] st Contact Info) Description 06/22/[address] [facility] MED & PEDS 505 [place] [address] Ayaka Salgado MD 505 [place] [address] Chronic pruritus Social History Tobacco Use Types [...] the past 12 months, has t he [employer], gas, oil or water company threatened to [...] Description 10/05/2025 9:00 AM EST Office Visit [facility] MED & PEDS 505 [place] [address] Ayaka Salgado MD 505 [place] [address] 11/09/2025 9:00 AM EST Clinical Support [facility] MED & PEDS 505 [place] [address] Alana Hook, RACHELLE 505 [place] [address] documented as of this encounter Visit Diagnoses Diagnosis Chronic pruritus documented in this encounter Additional Health Concerns Assessment Noted Time PHQ-9 Depression Total Score: 12 025 11:13 AM EDT documented as of this encounter Care Teams Pail Bailer Relationship Specialty Start Date End Date Ayaka Salgado MD 505 [place] [address] PCP - General Internal Medicine 09/15/18 documented as of this encounter
--- OUTSIDE RECORDS SUMMARY | 2025-08-17 10:21 | XMS_ITS | Encounter Summary ---
Author Organization [employer] Address 75 [facility] 7t [place] [address] Care Team Providers Care Ruling Machine Operator Name Role Phone Ayaka Salgado MD Primary Care Provider [phone] Encounter Details Date Type Department Care Team (Late st Contact Info) Description 04/29/2024 Telephone [facility] MEDICINE 230 [place] [address] Ayaka Salgado MD [address] [place] [phone] Social History Tobacco Use Types Packs/Day Years [...] 10 MG tablet To be sent to: [facility] #[id number] - [place], [place] - [address] [facility] [address] documented in this encounter Plan of Treatment Upcoming Encounters Date Type Department Care Team ([facility] st Contact Info) Description 10/05/2025 9:00 AM EST Office Visit [facility] MED & PEDS 505 [place] [address] Ayaka Salgado MD 505 [place] [address] 11/09/2025 9:00 AM EST Clinical Support [facility] MED & PEDS 505 [place] [address] Alana Hook RN 505 [place] [address] documented as of this encounter Visit Diagnoses Not on filedocumented in this encounter Additional Health Concerns Assessment Noted Time PHQ-9 Depression Total Score: 7 08/29/20 22 10:26 AM EST documented as of this encounter Care Teams Ruling Machine Operator Relationship Specialty Start Date End Date Ayaka Salgado MD [address] [place] [address] PCP - General Internal Medicine 09/15/18 documented as of this encounter
--- OUTSIDE RECORDS SUMMARY | 2025-08-17 10:21 | XMS_ITS | Encounter Summary ---
Author Organization [employer] Address [address] [place] [address] 7 [place] [address] Care Team Providers Care Dental Prosthetist Name Role Phone Ayaka Salgado MD Primary Care Provider [phone] Reason for Visit * Reason Comments Med Refill Encounter Details Date Type Department Care Team ([facility] st Contact Info) Description 03/26/2025 Refill [facility] MED & PEDS 505 [place] [address] Ayaka Salgado MD 505 [place] [address] Social History Tobacco Use Types Packs/Day Years [...] the past 12 months, has t he [employer], gas, oil or water company threatened to [...] AM EST Office Visit [facility] MED & PEDS 505 [place] [address] Ayaka Salgado MD 505 [place] [address] 11/09/2025 9:00 AM EST Clinical Support [facility] MED & PEDS 505 [place] [address] Alana Hook, RACHELLE 505 [place] [address] documented as of this encounter Visit Diagnoses Not on filedocumented in this encounter Additional Health Concerns Assessment Noted Time PHQ-9 Depression Total Score: 12 025 11:13 AM EDT documented as of this encounter Care Teams Dental Prosthetist Relationship Specialty Start Date End Date Ayaka aSlgado MD 505 [place] [address] PCP - General Internal Medicine 09/15/18 documented as of this encounter
--- OUTSIDE RECORDS SUMMARY | 2025-08-17 10:21 | XMS_ITS | Encounter Summary ---
Author Organization [employer] Address [address] [place] [address] Care Team Providers Care High Energy Forming Equipment Operator Name Role Phone Ayaka Salgado MD Primary Care Provider [phone] Reason for Visit * Reason Onset Date Comments Med Refill 12/12/2022 Encounter Details Date Type Department Care Team ([facility] st Contact Info) Description 12/12/2022 Telephone [facility] MED & PEDS 505 [place] [address] Ayaka Salgado MD 505 [place] [address] Med Refill Social History Tobacco Use Types [...] (Percocet) 5-325 MG tablet Please sent to [facility][id number] - [place], [place] - [address] [facility] documented in this encounter Plan of Treatment Upcoming Encounters Date Type Department Care Team (Late st Contact Info) Description 10/05/2025 9:00 AM EST Office Visit [facility] MED & PEDS 505 [place] [address] Ayaka Salgado MD 505 [place] [address] 11/09/2025 9:00 AM EST Clinical Support [facility] MED & PEDS 505 [place] [address] Alana Hook, RACHELLE 505 [place] [address] documented as of this encounter Visit Diagnoses Not on filedocumented in this encounter Additional Health Concerns Assessment Noted Time PHQ-9 Depression Total Score: 7 08/29/20 22 10:26 AM EST documented as of this encounter Care Teams High Energy Forming Equipment Operator Relationship Specialty Start Date End Date Ayaka Salgado MD 505 [place] [address] PCP - General Internal Medicine 09/15/18 documented as of this encounter
--- OUTSIDE RECORDS SUMMARY | 2025-08-17 10:21 | XMS_ITS | Encounter Summary ---
Author Organization [employer] Address 75 [facility] 7 [place] [address] Care Team Providers Care Brick Wheeler Name Role Phone Ayaka Salgado MD Primary Care Provider [phone] Reason for Visit * Reason Onset Date Comments Med Refill 08/03/2025 Encounter Details Date Type Department Care Team ([facility] st Contact Info) Description 08/03/2025 Telephone [facility] MEDICINE 230 [place], [place] [phone] Ayaka Salgado MD 505 [facility] [place] [address] Med Refill Social History Tobacco Use Types [...] housing situation today? I have havne mott 11/22/[address] you [...] the past 12 months, has t he [employer], gas, oil or water company threatened to [...] Upcoming Encounters Date Type Department Care Team ([facility] st Contact Info) Description 10/05/2025 9:00 AM EST Office Visit [facility] MED & PEDS 505 [place] [address] Ayaka Salgado MD 505 [place] [address] 11/09/2025 9:00 AM EST Clinical Support [facility] MED & PEDS 505 [place] [address] Alana Hook, RACHELLE 505 [place] [address] documented as of this encounter Goals Goal [...] documented as of this encounter Care Teams Brick Wheeler Relationship Specialty Start Date End Date Ayaka Salgado MD [address] [place] [address] PCP - General Internal Medicine 09/15/18 documented as of this encounter
--- OUTSIDE RECORDS SUMMARY | 2025-08-17 10:21 | XMS_ITS | Encounter Summary ---
Author Organization [employer] Address 75 [facility] 7t [place] [address] Care Team Providers Care Planer Stone Name Role Phone Ayaka Salgado MD Primary Care Provider [phone] Encounter Details Date Type Department Care Team ([facility] st Contact Info) Description 05/26/2024 Orders Only [facility] CHC MED & PEDS 505 [place] [address] Ayaka Salgado MD 505 [place], [place] [phone] Simple chronic bronchitis (CMS/HCC) (Primary Dx) Social [...] Description 10/05/2025 9:00 AM EST Office Visit [facility] MED & PEDS 505 [place] [address] Ayaka Salgado MD 505 [place] [address] 11/09/2025 9:00 AM EST Clinical Support [facility] MED & PEDS 505 [place] [address] Alana Hook, RN 505 [place] [address] documented as of this encounter Visit Diagnoses Diagnosis Simple chronic bronchitis (CMS/HCC) (HCC)- Primary Simple chronic bronchitis documented in this encounter Additional Health Concerns Assessment Noted Time PHQ-9 Depression Total Score: 7 08/29/20 22 10:26 AM EST documented as of this encounter Care Teams Planer Stone Relationship Specialty Start Date End Date Ayaka Salgado MD 505 [place] [address] PCP - General Internal Medicine 09/15/18 documented as of this encounter
--- OUTSIDE RECORDS SUMMARY | 2025-08-17 10:21 | XMS_ITS | Encounter Summary ---
Author Organization [employer] Address [address] [place] [address] 7 [place] [address] Care Team Providers Care Scale Assembly Set Up Worker Name Role Phone Ayaka Salgado MD Primary Care Provider [phone] Reason for Visit * Reason Onset Date Comments Med Refill 05/12/2025 Encounter Details Date Type Department Care Team ([facility] st Contact Info) Description 05/12/2025 Telephone [facility] CHC MED & PEDS 505 [place] [address] Ayaka Salgado MD 505 [place] [address] Med Refill Social History Tobacco Use Types [...] 10:04 AM EDT Medication was sent to [facility] #[id number] on 11/22/24 with 11 refills. * Telephone Encounter - Be Llam[facility] - 05/12/2025 10:00 AM EDT TC from pt requesting medication refill. Medications needing refill : guaiFENesin (Mucinex) 600 MG 12 hr tablet To be sent to: [facility] #[id number] - [place] [facility] S[facility] [place] documented in this encounter Plan of Treatment Upcoming Encounters Date Type Department Care Team ([facility] st Contact Info) Description 10/05/2025 9:00 AM EST Office Visit [facility] MED & PEDS 505 [place] [address] Ayaka Salgado MD [address] [place] [address] 11/09/2025 9:00 AM EST Clinical Support [facility] MED & PEDS 505 [place] [address] Alana Hook, RACHELLE 505 [place] [address] documented as of this encounter Visit Diagnoses Not on filedocumented in this encounter Additional Health Concerns Assessment Noted Time PHQ-9 Depression Total Score: 12 025 11:13 AM EDT documented as of this encounter Care Teams Scale Assembly Set Up Worker Relationship Specialty Start Date End Date Ayaka Salgado MD 505 [place] [address] PCP - General Internal Medicine 09/15/18 documented as of this encounter
[2025-08-17 14:09] LABS: Hemoglobin 10.3 g/dl (14.0-18.0)
[2025-08-17 14:54] LABS: Estimated Glomerular Filt Rate 10
== END 2025-08-17 09:28 | disposition home or self-care (01) ==
LOC: HO.CHCLDS 09:27
PROVIDERS: Visit Provider Internal Medicine Hypertension Specialist
DX: N18.5 Chronic kidney disease, stage 5 (principal); D63.1 Anemia in chronic kidney disease
CPT/HCPCS: 36415; 82565; 85018

== ENCOUNTER 2025-08-22 09:47 | Outpatient (AMB) | payer MEDICARE, SELFPAY ==
--- NOTE | 2025-08-22 09:54 | HO.NEPHOV_ITS ---
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: No Accompanied by: Self / Same As Patient Allergies aspirin Adverse Reaction (Unknown, Verified 08/22/25 09:55) nose bleeds metformin Adverse Reaction (Unknown, Verified 08/22/25 09:55) hypoglycemia warfarin (From Coumadin) Adverse Reaction (Unknown, Verified 08/22/25 09:55) Nose Bleed apixaban Adverse Reaction (Verified 08/22/25 09:55) Nose Bleed clopidogrel Adverse Reaction (Verified 08/22/25 09:55) Nose Bleed Medication List - Last Reconciled 08/22/25 by Ross Baldwin MD acetaminophen (Tylenol) 650 mg PO Q6H PRN aspirin 81 mg PO DAILY blood-glucose meter (FreeStyle Lite Meter kit) As directed bumetanide 1 mg PO BID calcitriol 0.25 mcg PO DAILY cholecalciferol (vitamin D3) 25 mcg PO Q48H cinacalcet 30 mg PO DAILY clonidine HCl 0.2 mg PO TID clopidogrel 75 mg PO DAILY gabapentin 300 mg PO TID glimepiride 1 mg PO DAILY hydralazine 100 mg PO TID labetalol 300 mg PO BID lancets (FreeStyle Lancets) As directed lidocaine 5% 1 patch topical DAILY PRN losartan 50 mg PO DAILY melatonin 5 mg PO BEDTIME oxycodone-acetaminophen 5-325 mg 1 tab PO Q8H PRN simvastatin 20 mg PO BEDTIME sitagliptin phosphate (Januvia) 25 mg PO DAILY umeclidinium 62.5 mcg/actuation (Incruse Ellipta) 1 inh inhalation DAILY zolpidem 10 mg PO BEDTIME HPI Comments Details: 67-year-old male with a history of type 2 diabetes, HTN, CKD, carotid stenosis, COPD, LEONEL not on CPAP, diastolic CHF with preserved ejection fraction, He has advanced CKD Baseline creatinine is between 3.5 and 4.0 Currently on high dose of Bumex -Takes 1mg BID No edema No dyspnea 06/15/24 ; c/o SOB;Gained some weight/edema ;Went to [place] [facility] 06/25/24 ;After adding metolazone 2 doses and increasing Bumex to 1 mg b.i.d. he has lost about 7 lb. His breathing has improved. He feels better 07/27/24;doing much better;seen by cardiology 08/30/24 ;Dyspnea on exertion ;Weight is down by few lbs 09/13/24 ; c/o difficulty sleeping ;He has LEONEL -but does not use CPAP ; New onset A.fib - work up in progress 11/08/24: Still sOB on exertion;Seeing cardilogy today 01/25/25 69-year-old male presenting with anemia management as the primary reason for the visit. He is receiving scheduled BrReticrit injection to improve his anemia and associated hemoglobin levels. Treatment continues due to persistent anemia. The patient also experiences knee pain and self-reports episodes of respiratory discomfort which could be associated with his other underlying conditions. 02/22/25 69-year-old male presenting with anemia management as the primary reason for the visit. He is receiving scheduled Retacrit injections to improve his anemia and associated hemoglobin levels. Treatment continues due to persistent anemia. The patient also experiences knee pain and self-reports episodes of respiratory discomfort which could be associated with his other underlying conditions. Underwent watchman procedure. There is ongoing observation as he is close to requiring renal dialysis due to chronic kidney disease. The patient is aware of potential future dialysis needs but remains stable and dialysis-free at present. 03/08/25- No new issues 05/31/25 The patient is a 69-year-old male presenting with a follow-up for Stage 5 Chronic Kidney Disease and anemia management. Stage 5 Chronic Kidney Disease is stable at 11-12% function. Breathing is good with inhaler use; no nausea or vomiting reported. Calcium levels stable; cinacalcet therapy to be restarted. Anemia improved with hemoglobin at 10.4 g/dL due to treatment. Bleeding tendencies noted due to blood thinners, causing groin bruising. Hypertension controlled at 130/70 mmHg. Cardiology follow-up scheduled for July. No significant leg swelling; managed with wider sneakers. Medications: - Inhaler for breathing management - Blood thinners causing bleeding tendencies - Erythropoiesis-stimulating agents for anemia Diagnostic Results: - Labs: Hemoglobin improved to 10.4 g/dL - Labs: Kidney function stable at 11-12% - Labs: Calcium levels stable 08/22/25 The patient is a 69 year old male presenting for a routine follow-up visit. He reports he is doing well. His hemoglobin has been slowly improving with injections, with the lowest level being 7.6 g/dL. It subsequently increased to 8 g/dL, 9.1 g/dL, 10 g/dL, 9.9 g/dL at the last visit, and is now 10.3 g/dL. The patient had his eyes dilated this morning prior to his appointment. [facility] Medical History Obesity (BMI 30-39.9) Elevated brain natriuretic peptide (BNP) level Lower extremity edema COPD (chronic obstructive pulmonary disease) LEONEL (obstructive sleep apnea) Dyspnea on minimal exertion COPD (chronic obstructive pulmonary disease) Smoker Left ventricular hypertrophy Smoking CKD (chronic kidney disease) Obesity Dyslipidemia Hypertension Diabetes mellitus Surgical History No pertinent past surgical history Family History Father No problems noted. Mother Diabetes Family/Other No problems noted. Social History Household Members: Significant Other Housing: Apartment Do you presently have visiting nurse or other home services: No Alcohol intake: current Alcohol intake frequency: a few times a month Patient Tobacco Use Status: Former Tobacco user e-Cigarette/Vaping Use: Never Used Second Hand Smoke Exposure: No Advance Directives Date on File: 08/23/22 service: No Current occupational status: disabled Physical Exam Vital Signs: Last Vital Signs Pulse 52 08/22/25 09:55 BP 170/60 H 08/22/25 09:55 Pulse Ox 97 08/22/25 09:55 Oxygen Delivery Method Room Air 08/22/25 09:55 BMI result Body Mass Index 34.9 Comfortable Neck supple no JVD. Lungs entry equal no rales. Heart S1-S2 heard no gallop or rub. Abdomen soft nontender. Neuro alert awake oriented. No asterixis. Extremities 2+edema. Office Meds epoetin chad-epbx 20,000 unit/mL injection solution Performing Provider: Ross Baldwin MD [place] [facility] [place] [facility] Administered by: Ross Baldwin MD on 08/22/25 10:04 Dose Route Admin Location Dispensed Lot Number Expiration Date [employer] 20,000 unit subcut right arm 1 mL [id number] 04/14/26 8283-0838-08 [facility] Total Dispensed Waste 1 mL 0 % Results Reviewed Nephrology Results: Hgb, (14.0-18.0) 10.3 g/dl L 08/17/25 WBC, (4.8-10.8) 7.5 X10*3/uL 07/20/25 Plt Count, (160-400) 202 X10*3/uL 07/20/25 Sodium, (135-145) 142 mmol/L 07/20/25 Potassium, (3.3-5.1) 4.2 mmol/L 07/20/25 Chloride, (96-108) 107 mmol/L 07/20/25 Carbon Dioxide, (22-29) 26 mmol/L 07/20/25 BUN, (9-16) 54 mg/dL H 07/20/25 Creatinine, (0.5-1.4) 5.50 mg/dL H* 08/17/25 Calcium, (8.4-10.2) 9.6 mg/dL 07/20/25 PTH Intact, (8.7-77.1) 262.4 pg/mL H 07/20/25 Assessment & Plan Assessment & Plan (1) Anemia: Code(s): D64.9 - Anemia, unspecified Category: Medical Plan: Adminstered Retacrit 12222 U sq (2) CKD (chronic kidney disease) stage 5, GFR less than 15 ml/min: Code(s): N18.5 - Chronic kidney disease, stage 5 Category: Medical Plan: Renal fx unchanged eGFR between 10 and 12 ml/mt since Sep 2024 No s/s or uremia or fluid overload today (3) Essential hypertension: Code(s): I10 - Essential (primary) hypertension Category: Medical Plan: BP appears controlled. We discussed weight loss and low-salt diet again. (4) Chronic diastolic congestive heart failure: Code(s): I50.32 - Chronic diastolic (congestive) heart failure Category: Medical Plan: Compensated. Follows with cardiology. (5) Type 2 diabetes mellitus with unspecified complications: Code(s): E11.8 - Type 2 diabetes mellitus with unspecified complications Category: Medical (6) Obesity (BMI 30-39.9): Code(s): E66.9 - Obesity, unspecified Category: Medical Plan: Discussed weight loss. (7) Hyperparathyroidism: Code(s): E21.3 - Hyperparathyroidism, unspecified Category: Medical Plan: He is currently on cinacalcet and Rocaltrol. Cinacalcet on hold since 11/08/24) Repeat Ca is normal Follow PTH Restarted Cinacalcet 05/31/25 ( PTH is improving) Plan Referred to dialysis education program. He will be a good candidate for CCPD Discussed pre-emptive transplant Referred to [facility] - seen in Nov Work up in progress Orders: Orders AMB Epoetin Injection Practice Supplied Today D64.9 - Anemia, unspecified Medications: Refilled cinacalcet 30 mg PO DAILY 30 tabs 2RF Coding Level of Care Code Est Pt Level 4 (98551) Diagnoses Anemia D64.9 CKD (chronic kidney disease) stage 5, GFR less than 15 ml/min N18.5 Essential hypertension I10 Chronic diastolic congestive heart failure I50.32 Type 2 diabetes mellitus with unspecified complications E11.8 Obesity (BMI 30-39.9) E66.9 Hyperparathyroidism E21.3
[2025-08-22 09:55] VITALS: BP 170/60; PULSE 52; O2SAT 97; BMI 34.9
== END 2025-08-22 10:07 | disposition home or self-care (01) ==
LOC: HO.HKA 09:47
PROVIDERS: PCP Internal Medicine; Visit Provider Internal Medicine Hypertension Specialist
DX: D64.9 Anemia, unspecified (principal); N18.5 Chronic kidney disease, stage 5; I12.0 Hypertensive chronic kidney disease with stage 5 chronic kidney disease or end stage renal disease; I50.32 Chronic diastolic (congestive) heart failure; E11.8 Type 2 diabetes mellitus with unspecified complications; E66.9 Obesity, unspecified; E21.3 Hyperparathyroidism, unspecified
CPT/HCPCS: 99214

== ENCOUNTER → 2025-08-22 09:47 | Outpatient (BNVA) | payer MEDICARE, SELFPAY | PROVIDERS: PCP Internal Medicine; Visit Provider Internal Medicine Hypertension Specialist | DX: I12.0 Hypertensive chronic kidney disease with stage 5 chronic kidney disease or end stage renal disease (principal); I13.2 Hypertensive heart and chronic kidney disease with heart failure and with stage 5 chronic kidney disease, or end stage renal disease; E11.22 Type 2 diabetes mellitus with diabetic chronic kidney disease; N18.5 Chronic kidney disease, stage 5; I50.32 Chronic diastolic (congestive) heart failure; D63.1 Anemia in chronic kidney disease; E11.8 Type 2 diabetes mellitus with unspecified complications; E66.9 Obesity, unspecified; E21.3 Hyperparathyroidism, unspecified; Z87.891 Personal history of nicotine dependence | CPT/HCPCS: 96372; 99212; Q5106 ==